=== PATIENT | female | born 1985 | race Caucasian/White ===

== ENCOUNTER 2022-10-31 00:38 | Emergency (ER) | payer OTHER, SELFPAY ==
[2022-10-31 00:46] VITALS: BP 138/85; PULSE 101; RESP 18; TEMP 36.4; O2SAT 100; BMI 30.2
--- NOTE | 2022-10-31 01:00 | ED_ITS ---
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 states her Baclofen is not working tonight with this flare up. No new injury. no radicular symptoms MD complaint: Reports neck pain Related Data Allergies Allergy/AdvReac Type Severity Reaction Status Date / Time calcium [From DHEA] Allergy Severe Difficulty Verified 10/31/22 00:52 Breathing calcium carbonate [From DHEA] Allergy Severe Difficulty Verified 10/31/22 00:52 Breathing prasterone (DHEA) [From DHEA] Allergy Severe Difficulty Verified 10/31/22 00:52 Breathing caffeine Allergy Mild Vomiting Verified 10/31/22 00:52 Review of Systems ROS Status of ROS 10 or more systems reviewed and unremarkable except as noted in history and below PFSH PFSH Social History Smoking status: Never smoker Exam Constitutional Vital Signs - 24 hr 10/31/22 00:46 10/31/22 04:19 Temperature 97.5 F L Pulse Rate 89 Pulse Rate [Monitor] 101 H Respiratory Rate 18 18 Blood Pressure 116/74 Blood Pressure [Right Arm] 138/85 H Pulse Oximetry 100 100 Oxygen Delivery Method Room Air Other: mild distress HENMT Common normals: normocephalic and head/scalp atraumatic Eye Common normals: EOMs intact bilaterally and conjunctivae normal Neck & C-Spine Other: bilat tenderness-mild limited ROM Respiratory Common normals: normal respiratory effort, no retractions, no use of accessory muscles and clear to auscultation bilaterally Cardio Common normals: regular rate, regular rhythm, S1 normal heart sound and S2 normal heart sound Extremity Common normals: normal to inspection, full ROM and normal capillary refill Neuro Common normals: oriented x3, CN's II-XII intact bilaterally, moves all extremities and no focal motor deficits Psych Appearance: grossly normal Course Vital Signs Vital signs: Vital Signs Temperature 97.5 F L 10/31/22 00:46 Pulse Rate 101 H 10/31/22 00:46 Respiratory Rate 18 10/31/22 00:46 Blood Pressure 138/85 H 10/31/22 00:46 Pulse Oximetry 100 10/31/22 00:46 Oxygen Delivery Method Room Air 10/31/22 00:46 Temperature 97.5 F L 10/31/22 00:46 Pulse Rate 89 10/31/22 04:19 Respiratory Rate 18 10/31/22 04:19 Blood Pressure 116/74 10/31/22 04:19 Pulse Oximetry 100 10/31/22 04:19 Oxygen Delivery Method Room Air 10/31/22 00:46 MDM - Neck Pain/Injury MDM Narrative Medical decision making narrative: patient has 20 year history of dystonia. Presents with flare up not responding to home medications. CBC and BMP WNL. patient medicated and observed in the department for several hours with improvement in her discomfort. Discharged home and advised to continue her home medications and to follow up with her doctor for a recheck Lab Data Labs: Lab Results 10/31/22 Range/Units 01:13 WBC 7.0 (4.0-11.0) 10^3/uL RBC 4.98 (4.20-5.40) 10^6/uL Hgb 14.5 (12.0-16.0) g/dL Hct 43.4 (36.0-48.0) % MCV 87.1 (81.0-99.0) fL MCH 29.1 (26.7-34.0) pg MCHC 33.4 (29.9-35.2) g/dL RDW 13.4 (11.0-15.0) % Plt Count 249 (150-450) 10^3/uL MPV 9.3 L (9.5-13.5) fL Neut % (Auto) 53.9 (43.0-75.0) % Lymph % (Auto) 39.6 (20.5-60.0) % [place] % (Auto) 5.0 (1.7-12.0) % Eos % (Auto) 1.1 (0.9-7.0) % Baso % (Auto) 0.3 (0.2-2.0) % Neut # (Auto) 3.8 (1.4-6.5) 10^3/uL Lymph # (Auto) 2.8 (1.2-3.8) 10^3/uL [place] # (Auto) 0.4 (0.3-0.8) 10^3/uL Eos # (Auto) 0.1 (0.0-0.7) 10^3/uL Baso # (Auto) 0.0 (0.0-0.1) 10^3/uL Abs Immat Gran (auto) 0.01 (0.00-0.03) 10^3/uL Imm/Tot Granulo (auto) 0.1 (0.0-0.5) % Sodium 141 (136-145) mmol/L Potassium 3.6 (3.5-5.1) mmol/L Chloride 104 (98-107) mmol/L Carbon Dioxide 29.7 (21.0-32.0) mmol/L Anion Gap 10.9 BUN 10.0 (7.0-18.0) mg/dL Creatinine 0.78 (0.55-1.02) mg/dL Est GFR ( Amer) >60 (>=60) Est GFR (Non-Af Amer) >60 (>=60) BUN/Creatinine Ratio 12.8 Glucose 100 (74-106) mg/dL Calcium 9.4 (8.5-10.1) mg/dL Magnesium 2.3 (1.8-2.4) mg/dL Discharge Plan Discharge Chief Complaint: Neck Pain/Injury Clinical Impression: Dystonia Instructions: Spasmodic Torticollis (ED) Additional Instructions: continue home medications and follow up with your doctor Stand Alone Forms: Portal Instructions Referrals: Danny Obrien MD [Primary Care Provider] - 1 week
[2022-10-31 01:22] LABS: Basophils Percent Auto 0.3 % (0.2-2.0); Eosinophils Absolute Auto 0.1 10^3/uL (0.0-0.7); Eosinophils Percent Auto 1.1 % (0.9-7.0); Hematocrit 43.4 % (36.0-48.0); Hemoglobin 14.5 g/dL (12.0-16.0); Immature Granulocytes Abs Auto 0.01 10^3/uL (0.00-0.03); Immature Granulocytes Pct Auto 0.1 % (0.0-0.5); Lymphocytes Absolute Auto 2.8 10^3/uL (1.2-3.8); Lymphocytes Percent Auto 39.6 % (20.5-60.0); Mean Corpuscular HGB Conc 33.4 g/dL (29.9-35.2); Mean Corpuscular Hemoglobin 29.1 pg (26.7-34.0); Mean Corpuscular Volume 87.1 fL (81.0-99.0); Mean Platelet Volume 9.3 fL (9.5-13.5); Monocytes Absolute Auto 0.4 10^3/uL (0.3-0.8); Neutrophils Absolute Auto 3.8 10^3/uL (1.4-6.5); Neutrophils Percent Auto 53.9 % (43.0-75.0); Platelet Count 249 10^3/uL (150-450); Red Blood Count 4.98 10^6/uL (4.20-5.40); Red Cell Distribution Width 13.4 % (11.0-15.0)
[2022-10-31] MEDS: ONDANSETRON PF 4 MG/2 ML VIAL IV (01:28)
[2022-10-31] MEDS: LORAZEPAM 2 MG/ML 1 ML VIAL 1 MG IV (01:28)
[2022-10-31] MEDS: ORPHENADRINE 60 MG/ 2 ML VIAL IV (01:28)
[2022-10-31 01:39] LABS: Anion Gap 10.9; BUN Creatinine Ratio 12.8; Calcium 9.4 mg/dL (8.5-10.1); Carbon Dioxide 29.7 mmol/L (21.0-32.0); Chloride 104 mmol/L (98-107); Estimated GFR (African America >60 (>=60); Estimated GFR (Non-African Ame >60 (>=60); Glucose 100 mg/dL (74-106); Magnesium 2.3 mg/dL (1.8-2.4); Potassium 3.6 mmol/L (3.5-5.1); Sodium 141 mmol/L (136-145)
[2022-10-31 04:19] VITALS: BP 116/74; PULSE 89; RESP 18; O2SAT 100
--- NOTE | 2022-10-31 04:24 | PC.NURSE ---
After numerous phone calls with telepharmacy we were unable to get the order clarified.. Pt recieved 2g of Mag in a 50ml bag when initial order was placed
[2022-10-31] MEDS: MORPHINE SULFATE 4 MG/ML VIAL IV (06:17)
== END 2022-10-31 06:20 | disposition home or self-care (01) ==
PROVIDERS: Emergency Provider Internal Medicine; PCP Family Medicine
DX: G24.9 Dystonia, unspecified (principal)
CPT/HCPCS: 36415; 80048; 83735; 85025; 96374; 96375; 99284

== ENCOUNTER 2023-01-15 20:00 | Outpatient (REF) | payer OTHER, SELFPAY ==
[2023-01-19 14:09] LABS: Age Gdln ACOG Testing Note (.); HPV Aptima Negative (Negative); IGP, Aptima HPV, rfx 16/18,45 Note (.)
== END 2023-01-15 20:01 | disposition home or self-care (01) ==
LOC: LAB 20:00
PROVIDERS: PCP Family Medicine; Visit Provider Obstetrics & Gynecology
DX: Z12.4 Encounter for screening for malignant neoplasm of cervix (principal)
CPT/HCPCS: 87624; G0145

== ENCOUNTER 2023-03-21 08:00 | Outpatient (OUT) | payer OTHER, SELFPAY ==
--- NOTE | 2023-03-21 08:37 | PM.CN ---
Consult Note: HPI Data of Consult Requesting Physician: Jacqui Anthony NP Primary Care Provider: Danny Obrien MD Consult Narrative Reason for consult: f/u Narrative: Brittanie Bradley a pleasant 38 year old female presents for evaluation and management of chronic neck pain and migraines, today patient rating pain 3/10 throbbing ache in neck. Patient continues to follow up with neurology and movement disorder specialists at [facility] who are administering botox and prescribing a variety of medications for the patient. Patient has benefitted from occasional norco for moderate to severe pain unresponsive to tylenol or ibuprofen. cc:: CC: Jacqui Anthony NP Review of Systems ROS Status of ROS 10 or more systems reviewed and unremarkable except as noted in history and below Musculoskeletal Reports: neck pain PFSH PFSH Social History Smoking status: Never smoker Meds Home Medications and Allergies Allergies Allergy/AdvReac Type Severity Reaction Status Date / Time calcium [From DHEA] Allergy Severe Difficulty Verified 10/31/22 00:52 Breathing calcium carbonate [From DHEA] Allergy Severe Difficulty Verified 10/31/22 00:52 Breathing prasterone (DHEA) [From DHEA] Allergy Severe Difficulty Verified 10/31/22 00:52 Breathing caffeine Allergy Mild Vomiting Verified 10/31/22 00:52 Exam Constitutional Documenting provider has reviewed patient's vital signs: yes Common normals: no apparent distress, oriented x3, healthy appearing, alert and well nourished General appearance: cooperative HENDE Common normals: normocephalic, hearing grossly normal bilaterally and moist oral mucous membranes Head and scalp: normocephalic Eye Common normals: PERRL Pupil: PERRL Neck & C-Spine Common normals: full ROM General: normal visual inspection Cervical spine: pain with cervical ROM and trapezius muscle tenderness Chest Common normals: inspection of chest normal Respiratory Common normals: normal respiratory effort, no retractions and no use of accessory muscles Neuro Common normals: oriented x3, CN's II-XII intact bilaterally, moves all extremities, no focal motor deficits, no sensory deficits noted and deep tendon reflexes 2+ bilaterally Sensorium/orientation: alert Motor exam: strength 5/5 throughout and no movement abnormalities noted Psych Common normals: mental status grossly normal, thought process normal, cooperative, affect normal, speech normal and activity/motor behavior normal Speech: normal speech Thought process: normal thought process Assessment and Plan Assessment and Plan (1) Cervical spondylosis: (2) Migraines: (3) Neck pain: Plan -discussed cervical facet blocks and thermal RFA as a future consideration, xrays consistent with cervical spondylosis (consider bilateral C2-3 3-4) -continue PRN [place] 5-325 1/2 tablet PRN moderate to severe pain, 14 tablets to last 3 months -discussed not to take norco with valium or other benzodiazepines, patient takes very sparingly and does not take together -continue HEP -continue f/u with neurology and movement disorder specialist at [facility] -f/u 3 months for medication management
== END 2023-03-21 08:01 | disposition home or self-care (01) ==
PROVIDERS: PCP Family Medicine; Visit Provider Nurse Practitioner
DX: M47.812 Spondylosis without myelopathy or radiculopathy, cervical region (principal); M54.2 Cervicalgia; G43.909 Migraine, unspecified, not intractable, without status migrainosus
CPT/HCPCS: G0463

== ENCOUNTER 2023-05-13 05:08 | Emergency (ER) | payer OTHER, SELFPAY ==
[2023-05-13 05:11] VITALS: BP 134/108; PULSE 115; RESP 20; TEMP 36.9; O2SAT 100; BMI 24.7
--- OUTSIDE RECORDS SUMMARY | 2023-05-13 05:16 | XMS_ITS | CCD ---
Author Name Unknown Address [address] [place] [address] Organization [facility] Care Team Providers Care Belt Repairer Name Role Phone MD Filiberto Ying Primary Care Provider [phone] PURVI Padilla Attending Provider [phone] STEP[address] ., DR DE LOS SANTOS Primary Care Unavailable LAKSHMIPATHY ., NARENDRANATH Admitting Glo vailable LAKSHMIPATHY ., KATHLEEN Attending Glo vailable HOY ., DR DE LOS SANTOS Admitting Unavailable HOY ., DR DE LOS SANTOS Attending Unavailable HOY ., DR DE LOS SANTOS Consulting Unavailable HOY ., DR DE LOS SANTOS Primary Care Unavailable COREEN ., DR HOBBS Admitting Unavailable COREEN ., DR HOBBS Attending Unavailable COREEN ., DR HOBBS Consulting Unavailable HOY ., DR DE LOS SANTOS Primary Care Unavailable ZIEBER, DR NAVNEET Bolden Consulting Unavailable HOY ., DR DE LOS SANTOS Primary Care Unavailable VIDAL ., CASSI Admitting Unavailable VIDAL ., CASSI Attending Unavailable VIDAL ., CASSI Consulting Unavailable VIDAL ., CASSI Consulting Unavailable COLLAZO ., DR CHARISMA Mckoy Attending Unavailable HOY ., DR DE LOS SANTOS Primary Care Unavailable COLLAZO ., DR CHARISMA Mckoy Admitting Unavailable COLLAZO ., DR CHARISMA Mckoy Admitting Unavailable HOY ., DR DE LOS SANTOS Primary Care Unavailable VIDAL ., CASSI Consulting Unavailable COLLAZO ., DR CHARISMA Mckoy Attending Unavailable COLLAZO ., DR CHARISMA Mckoy Admitting Unavailable HOY ., DR DE LOS SANTOS Primary Care Unavailable VIDAL ., CASSI Consulting Unavailable COLLAZO ., DR CHARISMA Mckoy Attending Unavailable COLLAZO ., DR CHARISMA Mckoy Attending Unavailable HOY ., DR DE LOS SANTOS Primary Care Unavailable VIDAL ., CASSI Consulting Unavailable COLLAZO ., DR CHARISMA Mckoy Admitting Unavailable COLLAZO ., DR CHARISMA Mckoy Admitting Unavailable HOY ., DR DE LOS SANTOS Primary Care Unavailable VIDAL ., CASSI Consulting Unavailable ZAY Good, DR CHARISMA Mckoy Attending Unavailable Filiberto Ying Unavailable Unavailable Unavailable MD Filiberto Ying Primary Care Provider [phone] DO Jamin Mcdaniel Attending Provider DO Roseanne Castellanos Attending Provider MD Romero Jones Referring Provider Isrrael, Dr. Soraya Mojica Attending Unavailab le Isrrael, Dr. Soraya Mojica Referring Unavailab le Stepan, Dr. Filiberto Fuller Primary Care Unavail able Unavailable Unavailable Filiberto Ying MD Primary Care Provider [phone] Kenna Padilla PA-C Unavailable Tal DIALLO, Dr. Saeed Jean-Baptiste Attending Unavailable Stepan, Dr. Filiberto Fuller Primary Care Unavail able Emanuel, Dr. Saeed Stahl Referring Unava ilneris Castellanos, Dr. Saeed Stahl Attending Unava ilable Stepan, Dr. Filiberto Fuller Primary Care Unavail able Emanuel, Dr. Saeed Stahl Referring Unava ilneris Castellanos, Dr. Saeed Stahl Referring Unava ilneris Ying, Dr. Filiberto Fuller Primary Care Unavail able Emanuel, Dr. Saeed Stahl Attending Unava ilSoraya Mcnair Attending Unavailable Soraya Cage Referring Unavailable Stepan, Dr. Filiberto Fuller Primary Care Unavail able Romero Jones Attending Unavailable Stepan, Dr. Filiberto Fuller Primary Care Unavail able Emanuel, Dr. Saeed Stahl Referring Unava ilneris Ying, Dr. Filiberto Fuller Primary Care Unavail able Emanuel, Dr. Saeed Stahl Attending Unava ilneris Castellanos, Dr. Saeed Stahl Attending Unava ilneris Ying, Dr. Filiberto Fuller Primary Care Unavail able Emanuel, Dr. Saeed Stahl Referring UnaMD Filiberto Rodriguez Primary Care Provider [phone] LONNY Borges Attending Provider MD Filiberto Ynig Primary Care Provider [phone] LONNY Borges Attending Provider DO Jamin Mcdaniel Attending Provider [phone] KENNA PADILLA Referring Unavailable HOY, FILIBERTO M Primary Care Unavailable BRAXTON, SOMJITA Attending Unavailable JONY, MARIA DEL CARMNE Attending Unavailable HOY, FILIBERTO M Primary Care Unavailable HOY, FILIBERTO M Primary Care Unavailable BRAXTON, SOMJITA Attending Unavailable HOY, FILIBERTO M Primary Care Unavailable BRAXTON, SOMJITA Referring Unavailable BRAXTON, SOMJITA Referring Unavailable HOY, FILIBERTO M Primary Care Unavailable Hoy, Filiberto M Primary Care Unavailable Maria Del Carmen Borges P Admitting Unavailable Maria Del Carmen Borges P Attending Unavailable Itzkojonel, Jamin Attending Unavailable Hoy, Filiberto M Primary Care Unavailable Itzkojonel, Jamin Admitting Unavailable Itzkojonel, Jamin Attending Unavailable Hoy, Filiberto M Primary Care Unavailable Itzkojonel, Jamin Admitting Unavailable Miyazlottie, Jamin Attending Unavailable Hoy, Filiberto M Primary Care Unavailable Itzkojonel, Jamin Admitting Unavailable Hoy, Filiberto M Primary Care Unavailable Romero Jones Referring Unavailable Roseanne Castellanos Admitting Unavailable Roseanne Castellanos Attending Unavailable Allergies Allergy Classification Reported Allergen(s) Allergy Type Date of Onset Reaction(s) Facility (17 sources) Caffeine; Translations: [Caffeine] Drug Allergy 3 Vomiting [facility] (16 sources) DHE; Translations: [Dhe] Allergy to substance 3 Shortness of Breath [facility] (9 sources) Adhesive agent; Translations: [ADHESIVE] Propensity to adverse reactions to drug 3 Other: See Asa, Yamilet [facility] (13 sources) Adhesive Tape Allergy to substance (finding) 3 Rash [facility] (9 sources) prasterone; Translations: [DHEA CAPS] Drug Allergy -[facility] y [facility] DO Work Phone: (1 source) Metoprolol Drug Allergy 3 Swelling of Lip/Tongue/Thro at [facility] Medications Current Medications Medication Drug Class(es) Dates Sig (Normalized) Sig (Original) acetaminophen 325 mg / HYDROcodone bitartrate 5 mg oral tablet (20 sources) Opioid Agonist Start: 05-01-2023 take 1 tablet by mouth once daily Hydrocodone-Aceta minophen Active 1 TAB PO Daily May 01, 2023 12:00am Start: 06-29-2022 HYDROcodone-ac etaminophen (NORCO) 5-325 mg per tablet as needed. 0 06/29/2022 Active Start: 10-22-2019 End: 12-24-2020 take 1 tablet by mouth every six hours Hydrocodone-Acetaminophen Discontinued 1 TAB PO Q6H 10 August 16, 2020 December 24, 2020 11:15am Start: 10-14-2019 End: 12-24-2020 take 1 tablet by mouth every eight hours Hydrocodone-Acetaminophen ([place]) 5-325 mg tablet Discontinued 1 TAB PO Q8H 10 October 14, 2019 December 24, 2020 11:15am Comment on above: as needed. baclofen 10 mg oral tablet (14 sources) gamma-Aminobutyr ic Acid-ergic Agonist Start: 06-28-19 End: 01-20-20 take 1 tablet by mouth every eight hours as needed baclofen (LIORESAL) 10 mg tablet Take 10 mg by mouth every 8 hours as needed. 10 in AM, 20 in PM 0 06/28/2022 01/19/2023 Discontinued Comment on above: Take 10 mg by mouth every 8 hours as needed. 10 in AM, 20 in PM cyclobenzaprine hydrochloride 5 mg oral tablet (14 sources) Muscle Relaxant Start: 05-01-20 take 5 mg by mouth once daily at bedtime Cyclobenzaprine Active 5 MG PO Daily at bedtime May 01, 2023 12:00am Start: 01-19-2023 take 1 tablet by klever th every twenty-four hours as needed cyclobenzaprine (FLEXERIL) 5 mg tablet Take 1 tablet by mouth at bedtime as needed. 30 tablet 1 01/19/2023 Active Start: 10-14-2019 End: 05-01-2023 take 10 mg by mouth once daily Cyclobenzaprine Discont inued 10 MG PO Daily October 13, 2019 11:00pm May 01, 2023 11:55am Start: 10-14-2019 End: 05-01-2023 take 20 mg by mouth once daily at bedtime Cyclobenzaprine Discontinued 20 MG PO Daily at bedtime October 13, 2019 11:00pm May 01, 2023 11:55am Comment on above: Take 1 tablet by klever th at bedtime as needed. diazePAM 10 mg oral tablet (9 sources) Benzodiazepine Start: 05-01-2023 take 10 mg by mouth twice daily Diazepam Active 10 MG PO Twice daily May 01, 2023 12:00am Start: 06-13-2022 take 1 tablet by klever th every twelve hours as needed diazePAM (VALIUM) 10 mg tablet Take 10 mg by mouth twice daily as needed. 0 06/13/2022 Active Comment on above: Take 10 mg by mouth twice daily as needed. ondansetron 4 mg oral tablet (11 sources) Serotonin-3 Receptor Antagonist Start: take 1 tablet by mouth every six hours Ondansetron Hcl (Zofran) 4 mg tablet Active 4 MG PO Q6H 60 December 23, 2020 11:00pm Start: 10-14-2019 End: 05-01-2023 take 4 mg by mouth three times daily Ondansetron Discontinued 4 MG PO Three times daily 7 2 October 13, 2019 11:00pm May 01, 2023 11:55am Start: 06-13-2012 End: 07-28-2022 ondansetron, PF, 4 mg/2 mL S oln Indications: Headache(784.0) , Chronic migraine without aura, with intractable migraine, so stated, with status migrainosus Inject 8 mg intravenously as directed. INFUSE 8 mg in NS 50 ML IV OVER 30 MIN. May repeat x1 4 mL 0 06/13/2012 07/28/2022 Discontinued (Course of therapy completed) Comment on above: Inject 8 mg intraven ously as directed. INFUSE 8 mg in NS 50 ML IV OVER 30 MIN. May repeat x1 pramipexole dihydrochloride 1 mg oral tablet (20 sources) Nonergot Dopamine Agonist Start: 05-01-20 take 1 mg by mouth once daily at bedtime Pramipexole Active 1 MG PO Daily at bedtime May 01, 2023 12:00am Start: 06-28-2022 take 1 tablet by klever th once daily pramipexole (MIRAPEX) 1 mg tablet Take 1 mg by mouth once daily. 0 06/28/2022 Active Start: 10-14-2019 End: 05-01-2023 take 1 tablet by mouth once daily at bedtime Pramipexole (Mirapex) 0.5 mg tablet Discontinued 0.5 MG PO Daily at bedtime October 13, 2019 11:00pm May 01, 2023 11:53am Comment on above: Take 1 mg by mouth o nce daily. 24 hr topiramate 100 mg extended release oral capsule (5 sources) Start: 10-14-2019 take 300 mg by mouth once daily Topiramate Active 300 MG PO Daily October 13, 2019 11:00pm Start: 10-14-2019 End: 05-01-2023 take 300 mg by mouth once daily Topiramate Discontinued 300 MG PO Daily October 13, 2019 11:00pm May 01, 2023 11:56am Completed/Discontinued Medications Medication Drug Class(es) Dates Sig (Normalized) Sig (Original) cetirizine hydrochloride 10 mg oral tablet (20 sources) Histamine-1 Receptor Antagonist Start: 10-14-2019 End: 05-01-2023 take 10 mg by mouth once daily Cetirizine Discontinued 10 MG PO Daily October 13, 2019 11:00pm May 01, 2023 11:54am Comment on above: 10 mg once daily. sugar-free cholestyramine resin 4000 mg powder for oral suspension (5 sources) Bile Acid Sequestrant Start: 12-24-2020 End: 05-01-2023 take 1 dose by mouth once Cholestyramine-Aspa rtame (Questran Light) 4 gram powder Discontinued 4 GM PO before meals and at bedtime December 23, 2020 11:00pm May 01, 2023 11:55am no meds 1 hr before/4-6 hr after dose cyproheptadine hydrochloride 4 mg oral tablet (1 source) Start: 06-13-2012 End: 07-28-2022 take 1 tablet by mouth three times daily cyproheptadine 4 mg tablet Take 1 tablet by mouth three times daily. 30 tablet 06/13/2012 07/28/2022 Discontinued (Course of therapy completed) Comment on above: Take 1 tablet by klever th three times daily. diclofenac sodium 0.01 mg/mg topical gel (8 sources) Nonsteroidal Anti-inflammatory Drug Start: 06-29-2022 diclofenac (VOLTAREN) 1 % topical gel as needed. 0 06/29/2022 Active Comment on above: as needed. doxepin hydrochloride 10 mg oral capsule (5 sources) Tricyclic Antidepressant Start: 10-14-2019 End: 12-24-2020 take 20 mg by mouth once daily at bedtime Doxepin Discontinued 20 MG PO Daily at bedtime October 13, 2019 11:00pm December 24, 2020 11:23am L Norgest/E.Estradiol- E.Estrad (5 sources) Progestin, Estrogen, Progestin-containin g Intrauterine Device Start: 10-14-2019 End: 05-01-2023 take 1 tablet by mouth once daily L Norgest/E.Estradiol -E.Estrad Discontinued 1 TAB PO Daily October 13, 2019 11:00pm May 01, 2023 11:55am Start: 10-14-2019 take 1 tablet by klever th once daily L Norgest/E.Estradiol-E.Estrad Active 1 TAB PO Daily October 13, 2019 11:00pm Start: 10-14-2019 take 1 tablet by klever th once daily L Norgest/E.Estradiol-E.Estrad Active 1 TAB PO Daily October 14, 2019 12:00am ezetimibe 10 mg oral tablet (17 sources) Dietary Cholesterol Absorption Inhibitor Start: 07-27-2022 ezetimibe (ZETIA) 10 mg tablet 10 mg once daily. 0 07/27/2022 Active Comment on above: 10 mg once daily. ferrous sulfate 325 mg oral tablet (17 sources) Start: 07-13-2022 ferrous sulfate 325 mg (65 mg iron) tablet once daily. 0 07/13/2022 Active Comment on above: once daily. fludrocortisone acetate 0.1 mg oral tablet (1 source) Start: 11-14-2022 take 1 tablet by mouth once daily Fludrocortisone Acetate 0.1 MG Oral Tablet Take 1 tablet daily Quantity: 90 Refills: 3 Ordered: 14-Nov-2022 Soraya Cage MD Start : 14-Nov-2022 Active 1.5 ml fremanezumab-vfrm 150 mg/ml prefilled syringe (5 sources) Start: 10-14-2019 End: 05-01-2023 inject 1 mL by subcutaneous injection every month Fremanezumab-Vfrm Discontinued 1.5 ML SUBCUT every month October 13, 2019 11:00pm May 01, 2023 11:54am hyoscyamine sulfate 0.125 mg sublingual tablet (5 sources) Start: 10-14-2019 End: 12-24-2020 take 1 tablet by mouth four times daily Hyoscyamine Sulfate Discontinued 1 - 2 TAB PO Four times daily October 13, 2019 11:00pm December 24, 2020 11:24am Magnesium (4 sources) End: 01-12-2023 Magnesium 250 mg tab 250 mg once daily. 0 01/12/2023 Discontinued Magnesium 250 mg tab 250 mg once daily. 0 Active Comment on above: 250 mg once daily. magnesium oxide 400 mg oral tablet (1 source) End: take 1 tablet by mouth once daily magnesium oxide (MAG-OXIDE) 400 mg tablet Take 400 mg by mouth once daily. 0 07/28/2022 Discontinued (Course of therapy completed) Comment on above: Take 400 mg by mouth once daily. Magnesium Sulfate (1 source) Start: 013 End: inject 2 g intravenously every hour MAGNESIUM SULFATE IN 0.9% NACL (MAGNESIUM SULFATE IN NS) 2 gram/100 mL PgBk Indications: Headache(784.0) Inject 2 g intravenously as directed. INFUSE 2000 mg in NS 250 ML IV OVER 1 HOUR 100 mL 0 06/13/2012 07/28/2022 Discontinued (Course of therapy completed) Comment on above: Inject 2 g intraveno usly as directed. INFUSE 2000 mg in NS 250 ML IV OVER 1 HOUR metFORMIN hydrochloride 500 mg oral tablet (4 sources) Biguanide End: metFORMIN (GLUCOPHAGE) 500 mg tablet 500 mg once daily. 0 01/12/2023 Discontinued Comment on above: 500 mg once daily. 24 hr metoprolol succinate 25 mg extended release oral tablet (6 sources) beta-Adrenergic Jessie Start: 023 take 1 tablet by mouth every hour metoprolol succinate ER (TOPROL XL) 25 mg 24 hr tablet Take 1 tablet by mouth every afternoon. 0 12/03/2022 Active Start: 11-14-2022 take 1 tablet by klever th once daily Metoprolol Succinate ER 25 MG Oral Tablet Extended Release 24 Hour TAKE 1 TABLET DAILY. Quantity: 90 Refills: 3 Ordered: 14-Nov-2022 Soraya Cage MD Start : 14-Nov-2022 Active Comment on above: Take 1 tablet by klever th every afternoon. minocycline 50 mg oral capsule (19 sources) Tetracycline-class Drug Start: 0 End: 3 take 50 mg by mouth once daily Minocycline Discontinued 50 MG PO Daily October 13, 2019 11:00pm May 01, 2023 11:55am take 1 tablet by mouth once ute y Minocycline HCl 100 mg tablet Take 100 mg by mouth once daily. 0 Active Comment on above: Take 100 mg by mouth once daily. pantoprazole 40 mg delayed release oral tablet (5 sources) Proton Pump Inhibitor Start: 10-14-19 End: 05-01-20 23 take 40 mg by mouth once daily Pantoprazole Discontinued 40 MG PO Daily October 13, 2019 11:00pm May 01, 2023 11:55am phentermine hydrochloride 37.5 mg oral tablet (5 sources) Sympathomimetic Amine Anorectic Start: 01-06-20 23 take 1 tablet by mouth once daily Phentermine HCl 37.5 mg tablet Take 37.5 mg by mouth once daily. 0 01/05/2023 Active Comment on above: Take 37.5 mg by mout h once daily. Nxklysjw-Oh-Ebo-Fe-FA (P-D CARTER PLUS) Tab (2 sources) End: 08-02-19 take 1 tablet by mouth once daily Gjlpgmvk-Uf-Rir-Fe- FA (P-D PLUS) Tab Take 1 tablet by mouth once daily. 0 08/01/2022 Discontinued (Course of therapy completed) take 1 tablet by mouth once ute y Fppgzirm-No-Qsn-Fe-FA (P-D PLUS) Tab Take 1 tablet by mouth once daily. 0 Active Comment on above: Take 1 tablet by klever once daily. promethazine hydrochloride 25 mg oral tablet (10 sources) Phenothiazine Start: 09-28-19 End: 12-25-19 21 take 25 mg by mouth every six hours Promethazine Discontinued 25 MG PO Q6H September 26, 2020 11:00pm December 24, 2020 11:24am Start: 09-27-2020 End: 12-24-2020 take 25 mg by mouth four times daily Promethazine Discontinued 25 MG PO Four times daily September 26, 2020 11:00pm December 24, 2020 11:15am propranolol hydrochloride 10 mg oral tablet (6 sources) beta-Adrenergic Jessie Start: 10-14-2019 End: 05-01-2023 take 20 mg by mouth twice daily Propranolol Discontinued 20 MG PO Twice daily October 13, 2019 11:00pm May 01, 2023 11:55am Start: 06-25-2012 End: 07-28-2022 take 1 tablet by mouth three times daily propranolol 10 mg tablet Take 1 tablet by mouth three times daily. 90 tablet 11 06/25/2012 07/28/2022 Discontinued (Course of therapy completed) Comment on above: Take 1 tablet by klever th three times daily. simvastatin 40 mg oral tablet (17 sources) HMG-CoA Reductase Inhibitor simvastatin (ZOCOR) 40 mg tablet 40 mg once daily. 0 Active Comment on above: 40 mg once daily. 1000 ml sodium chloride 9 mg/ml injection (1 source) Start: 06-13-2012 End: 07-28-2022 0.9 % SODIUM CHLORIDE (NACL) 0.9% solution Indications: Headache(784.0) Inject 500 mL intravenously as directed. INFUSE 500 CC IV NS IV OVER 30 MIN 500 mL 0 06/13/2012 07/28/2022 Discontinued (Course of therapy completed) Comment on above: Inject 500 mL intrav enously as directed. INFUSE 500 CC IV NS IV OVER 30 MIN Problems Active Problems Problem Classification Problem Date Documented Date Episodic/Chronic Abdominal pain (5 sources) Abdominal pain; Translations: [Unspecified abdominal pain] 09-27-2020 Episodic Administrative/social admission (4 sources) Patient encounter status; Translations: [Other reasons for seeking consultation] Episodic Biliary tract disease (5 sources) Biliary calculus; Translations: [Calculus of gallbladder without cholecystitis without obstruction] 10-14-2019 Episodic Cardiac dysrhythmias (2 sources) Tachycardia, unspecified; Translations: [Sinus tachycardia] Onset: 12-28-2022 Episodic Disorders of lipid metabolism (9 sources) Hyperlipidemia; Translations: [Other and unspecified hyperlipidemia] Chronic Headache; including migraine (1 source) Migraine, unspecified, not intractable, without status migrainosus; Translations: [MIGRAINE UNS NOT INTRACT W/O SM] Onset: 04-10-2022 Chronic Headache; including migraine (9 sources) Headache; Translations: [Headache] Onset: 04-06-2022 09-27-2020 Episodic Headache; including migraine (1 source) Headache; including migraine; Translations: [HEADACHE UNSPECIFIED] Onset: 07-10-2022 Other circulatory disease (5 sources) Elevated blood-pressure reading without diagnosis of hypertension; Translations: [Elevated blood-pressure reading, without diagnosis of hypertension] 09-27-2020 Episodic Other connective tissue disease (5 sources) Spasm of cervical paraspinous muscle; Translations: [Other muscle spasm] 08-16-2020 Episodic Other connective tissue disease (1 source) Fibromyalgia; Translations: [Fibromyalgia] Episodic Other connective tissue disease (1 source) Problem of neck; Translations: [Other symptoms and signs involving the musculoskeletal system] 01-12-2023 Episodic Other hereditary and degenerative nervous system conditions (1 source) Spasmodic torticollis; 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 TORTICOLLIS] Onset: 04-10-2022 Chronic Other hereditary and degenerative nervous system conditions (2 sources) Isolated cervical dystonia; Translations: [Spasmodic torticollis] 01-12-2023 Chronic Other hereditary and degenerative nervous system conditions (1 source) Restless legs; Translations: [Restless legs syndrome] 01-12-2023 Chronic Other lower respiratory disease (9 sources) Difficulty breathing; Translations: [Other respiratory abnormalities] Episodic Other nervous system disorders (5 sources) Other specified mononeuropathies; Translations: [OTHER SPECIFIED MONONEUROPATHIES] Onset: 02-16-2022 Chronic Other nervous system disorders (1 source) Other chronic pain; Translations: [Neck pain, chronic] Onset: 08-11-2022 Chronic Other nutritional; endocrine; and metabolic disorders (8 sources) Obesity; Translations: [Obesity, unspecified] Chronic Other nutritional; endocrine; and metabolic disorders (1 source) Overweight in adulthood with body mass index of 25 or more but less than 30; Translations: [Overweight] Episodic Syncope (19 sources) Syncope; Translations: [Syncope and collapse] Onset: 12-28-2022 Episodic Unclassified (1 source) Unspecified lump in the left breast, unspecified quadrant; Translations: [Unspecified lump in the left breast, unspecified quadrant] Onset: 04-05-2023 Unclassified (1 source) Unspecified lump in the right breast, lower outer quadrant; Translations: [Unspecified lump in the right breast, lower outer quadrant] Onset: 10-12-2022 Past or Other Problems Problem Classification Problem Date Documented Date Episodic/Chronic Immunizations and screening for infectious disease (1 source) Encounter for screening for human papillomavirus (HPV); Translations: [ENC SCREENING HUMAN PAPILLOMAVIRUS] Onset: 01-10-2022 Episodic Nonmalignant breast conditions (5 sources) Breast lump; Translations: [Unspecified lump in the left breast, unspecified quadrant] Onset: 10-12-2022 04-05-2023 Episodic Other connective tissue disease (1 source) Other muscle spasm; Translations: [OTHER MUSCLE SPASM] Onset: 04-10-2022 Episodic Other screening for suspected conditions (not mental disorders or infectious disease) (4 sources) Encounter for screening for malignant neoplasm of cervix; Translations: [ENC SCREENING MALIG NEOPLASM CERV] Onset: 01-09-2022 Episodic Spondylosis; intervertebral disc disorders; other back problems (10 sources) Chronic neck pain; Translations: [Cervicalgia] Onset: 02-20-2022 Episodic Unclassified (9 sources) Never smoked tobacco; Translations: [Never a smoker] Results Test Name Value Interpretation Reference Range Facility Basic Metabolic Panelon 04-20 Anion gap [Moles/Vol] 9.4 mmol/L Normal 6.0-15.0 [facility] Comment on above: Performed By: #### B MP #### [facility] [address] Calcium [Mass/Vol] 9.7 mg/dL Normal 8.6-10.3 [facility] Comment on above: Result Comment: PERF ORMED BY: [facility] [address] [facility] [address] PATHOLOGIST SUPERVISOR RESIDENTIAL ROSSI POND M.D. Performed By: #### B MP #### [facility] [address] [place] [address] [place] Chloride [Moles/Vol] 105 mmol/L Normal 98-107 [facility] Comment on above: Performed By: #### B MP #### [facility] [address] CO2 [Moles/Vol] 28.9 mmol/L Normal 21.0-31.0 [facility] Comment on above: Performed By: #### B MP #### [facility] [address] Creatinine [Mass/Vol] 0.75 mg/dL Normal 0.60-1.20 [facility] Comment on above: Performed By: #### B MP #### [facility] [address] [place] [address] [place] GFR/1.73 sq M.predicted MDRD (S/P/Bld) [Vol rate/Area] mL/min/{1.73_m2} Normal [facility] Comment on above: Performed By: #### B MP #### [address] Glucose [Mass/Vol] 84 mg/dL Normal 70-100 [facility] Comment on above: Result Comment: [facility] Glucose Reference Range is dependent on time and content of last meal. Glucose of more than 200 mg/dL in a nonstressed, ambulatory subject supports the diagnosis of Diabetes Mellitus. ADA recommended reference range Performed By: #### B MP #### [address] Potassium [Moles/Vol] 4.3 mmol/L Normal 3.5-5.1 [facility] Comment on above: Performed By: #### B MP #### [place] [address] [place] Sodium [Moles/Vol] 139 mmol/L Normal 136-145 [facility] Comment on above: Performed By: #### B MP #### [place] [address] [place] Urea nitrogen [Mass/Vol] 14 mg/dL Normal 7-25 [facility] Comment on above: Performed By: #### B MP #### [place] [address] [place] Calcium [Mass/volume] in Ser um or PlasmaOrdered By: Jamin Mcdaniel on 05-01-2023 Calcium [Mass/Vol] 9.7 mg/dL 8.6-10.3 [facility] Carbon dioxide, total [Moles /volume] in Serum or PlasmaOrdered By: Jamin Mcdaniel on 05-01-2023 CO2 [Moles/Vol] 28.9 mmol/L 21.0-31.0 [facility] Chloride [Moles/volume] in S leticia or PlasmaOrdered By: Jamin Mcdaniel on 05-01-2023 Chloride [Moles/Vol] 105 mmol/L 98-107 [facility] Creatinine [Mass/volume] in Serum or PlasmaOrdered By: Jamin Mcdaniel on 05-01-2023 Creatinine [Mass/Vol] 0.75 mg/dL 0.60-1.20 [facility] Glucose [Mass/volume] in Ser um or PlasmaOrdered By: Jamin Mcdaniel on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 cervical dystonia: Diazepam Only takes it when very severe Baclofen Did not feel it was beneficial Has been on this x2 years Cyclobenzaprine Most beneficial, but still significant neck tightness Tizanidine Methocarbamol Metaxalone Carisoprodol She does have [place] prescribed for the neck pain. She rarely utilizes this. She also reports RLS since being a child. She reports this is worsening over the last few years. She had a sleep study that was indicative of ADNIELLE. Not utilizing a machine presently, but is getting a new machine. She did see a sleep clinic locally. 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 Medications Reviewed metoprolol succinate ER (TOPROL XL) 25 mg 24 hr tablet Take 1 tablet by mouth every afternoon. Minocycline HCl 100 mg tablet Take 100 mg by mouth once daily. Phentermine HCl 37.5 mg tablet Take 37.5 mg by mouth once daily. baclofen (LIORESAL) 10 mg tablet Take 10 mg by mouth every 8 hours as needed. 10 in AM, 20 in PM cetirizine (ZYRTEC) 10 mg tablet 10 mg once daily. diazePAM (VALIUM) 10 mg tablet Take 10 mg by mouth twice daily as needed. diclofenac (VOLTAREN) 1 % topical gel as needed. ezetimibe (ZETIA) 10 mg tablet 10 mg once daily. ferrous sulfate 325 mg (65 mg iron) tablet once daily. HYDROcodone-acetaminophen (NORCO) 5-325 mg per tablet as needed. simvastatin (ZOCOR) 40 mg tablet 40 mg once daily. pramipexole (MIRAPEX) 1 mg tablet Take 1 mg by mouth once daily. Allergies Reviewed PAST MEDICAL HISTORY: There is no problem list on file for this patient. PAST SURGICAL HISTORY Procedure Laterality Date ADENOIDECTOMY HX LAPAROSCOPIC PELVIC EXENTERATION TONSILLECTOMY HX Social History Tobacco Use Smoking status: Never Smokeless tobacco: Never Substance Use Topics Alcohol use: No Drug use: No family history includes Cancer in her maternal grandmother and paternal grandfather; Diabetes in her maternal grandmother; Headache in her mother; Psychiatry in her maternal grandfather and mother. 01/12/23 0935 BP: 110/69 Pulse: 110 SpO2: 93% Weight: 70.3 kg (155 lb) Height: 157.5 cm (5' 2 ) General Appearance Patient appears well at the time of this appointment. Neurological Examination: Cognition: The patient is alert and oriented times three Lucid and organized in conversation Able to tell detailed medical hx Speech is Normal in fluency volume and clarity Content and Syntax: Normal Comprehension: Normal, able to follow several step commands Cranial Nerves: Pupils are equal and reactive to light. Pupils normal in size Extraocular movements are grossly intact Good saccades and pursuits No nystagmus Hearing intact Good upgaze Visual rich are full to confrontation. Facial, motor and sensory exam is symmetric Equal v1,V2, V3 Tongue is in midline. No tongue fasciculation. Palate is upgoing bilaterally SCM and trapezius are full. (more content not included)... 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 PHYSICIAN INTERPRETATION: Left Ventricle: Left ventricular systolic function is normal, with an estimated ejection fraction of 65-70%. There are no regional wall motion abnormalities. The left ventricular cavity size is normal. Spectral Doppler shows a normal pattern of left ventricular diastolic filling. Left Atrium: The left atrium is normal in size. Right Ventricle: The right ventricle is slightly enlarged. There is normal right ventricular global systolic function. Right Atrium: The right atrium is upper limits of normal in size. Aortic Valve: The aortic valve is trileaflet. There is no evidence of aortic valve regurgitation. The peak instantaneous gradient of the aortic valve is 6.0 mmHg. The mean gradient of the aortic valve is 2.0 mmHg. Mitral Valve: The mitral valve is normal in structure. There is no evidence of mitral valve regurgitation. Tricuspid Valve: The tricuspid valve is structurally normal. There is trace tricuspid regurgitation. Pulmonic Valve: The pulmonic valve is not well visualized. There is trace pulmonic valve regurgitation. Pericardium: There is no pericardial effusion noted. Aorta: The aortic root is normal. CONCLUSIONS: 1. Left ventricular systolic function is normal with a 65-70% estimated ejection fraction. QUANTITATIVE DATA SUMMARY: 2D MEASUREMENTS: Normal Ranges: Ao Root d: 2.80 cm (2.0-3.7cm) LAs: 2.70 cm (2.7-4.0cm) RVIDd: 3.10 cm (0.9-3.6cm) IVSd: 0.90 cm (0.6-1.1cm) LVPWd: 0.80 cm (0.6-1.1cm) LVIDd: 3.80 cm (3.9-5.9cm) LVIDs: 2.40 cm LV Mass Index: 53.0 g/m2 LV % FS 36.8 % LV SYSTOLIC FUNCTION BY 2D PLANIMETRY (MOD): Normal Ranges: EF-A4C View: 69.3 % (>=55%) LV DIASTOLIC FUNCTION: Normal Ranges: MV Peak E: 0.72 m/s (0.7-1.2 m/s) MV Peak A: 0.85 m/s (0.42-0.7 m/s) E/A Ratio: 0.84 (1.0-2.2) MV lateral e' 0.11 m/s MV medial e' 0.07 m/s E/e' Ratio: 6.30 (<8.0) MITRAL VALVE: Normal Ranges: MV Vmax: 0.90 m/s (<=1.3m/s) MV peak P.2 mmHg (<5mmHg) MV mean P.0 mmHg (<48mmHg) AORTIC VALVE: Normal Ranges: AoV Vmax: 1.22 m/s (<=1.7m/s) AoV Peak P.0 mmHg (<20mmHg) AoV Mean P.0 mmHg (1.7-11.5mmHg) LVOT Max [place]: 1.05 m/s (<=1.1m/s) AoV VTI: 19.30 cm (18-25cm) LVOT VTI: 20.80 cm LVOT Diameter: 2.10 cm (1.8-2.4cm) AoV Area, VTI: 3.73 cm2 (2.5-5.5cm2) AoV Area,Vmax: 2.98 cm2 (2.5-4.5cm2) AoV Dimensionless Index: 1.08 TRICUSPID VALVE/RVSP: Normal Ranges: Peak TR Velocity: 2.20 m/s RV Syst Pressure: 22.4 mmHg (< 30mmHg) PULMONIC VALVE: Normal Ranges: PV Max [place]: 0.8 m/s (0.6-0.9m/s) PV Max P.4 mmHg [id number] Saeed Parada MD Electronically signed on 01/01/2023 at 2:35:16 PM Final Normal [facility] Office Visit (Cardiology)on 11-14-2022 Follow-up visit Diagnoses/Problems Assessed Sinus tachycardia (427.89) (R00.0) Vasovagal near syncope (780.2) (R55) Hyperlipidemia (272.4) (E78.5) Overweight with body mass index (BMI) of 29 to 29.9 in adult (278.02,V85.25) (E66.3,Z68.29) Never a smoker Encounter to establish care with new doctor (V65.8) (Z76.89) Encounter to discuss test results (V65.49) (Z71.2) Encounter to discuss treatment options (V65.49) (Z71.89) Medication care plan discussed with patient (V65.49) (Z71.89) Orders Overweight with body mass index (BMI) of 29 to 29.9 in adult Losing just 5 to 10 pounds may lower your risk of health problems.; Status:Complete - Retrospective Authorization; Done: 14Nov2022 Weight Loss Do's and Don'ts; Status:Complete - Retrospective Authorization; Done: 14Nov2022 Sinus tachycardia IO EKG Electrocardiogram- 12 Lead; Status:Active - Perform Order,Retrospective Authorization; Requested for:14Nov2022; Sinus tachycardia, Vasovagal near syncope Start: Metoprolol Succinate ER 25 MG Oral Tablet Extended Release 24 Hour; TAKE 1 TABLET DAILY Compression stockings 20-30 mmHg; Status:Complete - Retrospective By Protocol Authorization; Done: 14Nov2022 Echocardiogram; Status:Hold For - Scheduling,Retrospective Authorization; Requested for:14Nov2022; SocHx: Never a smoker Tobacco Use Screening; Status:Complete; Done: 14Nov2022 Vasovagal near syncope Start: Fludrocortisone Acetate 0.1 MG Oral Tablet; Take 1 tablet daily Avoid alcoholic beverages.; Status:Complete - Retrospective Authorization; Done: 14Nov2022 Drink at least 6 glasses of water or juice a day.; Status:Complete - Retrospective Authorization; Done: 14Nov2022 Patient Instructions Avoid dehydration. Drink 5-6 bottles of water per day 1 cup or less caffeine. Salt intake up to 2 gram per day Start Metoprolol succinate 25 mg one daily in am. Florinef 0.1 mg once a day Compression stockings on in am off in pm Encourage walking 10-20 minutes a day Follow up in the [facility] Continue same medications/treatment. Patient educated on proper medication use. Patient educated on risk factor modification. Please bring any lab results from other providers/physicians to your next appointment. Please bring all medicines, vitamins, and herbal supplements with you when you come to the office. Prescriptions will not be filled unless you are compliant with your follow up appointments or have a follow up appointment scheduled as per instruction of your physician. Refills should be requested at the time of your visit. I, Corina GIven A[employer]ODU[employer] SALES ENGINEER, am scribing for and in the presence of Dr. Soraya Cage, FACC, FACP, FHRS The provider reviewed the following test(s) and result(s) with the patient: ECG, Holter monitor and Tilt table Chief Complaint Patient presented to [facility]. Adult Risk Screening Initial Fall Risk Screening: BRITTANIE has not fallen in the last 6 months. Tobacco Screening: BRITTANIE does not use tobacco. History of Present Illness She is referred here by Dr. Castellanos for electrophysiology evaluation of syncope The patient is here to discuss spells. She remembers her first episode occurred when she was 14 years old. She was standing in the shower when she passed out.. Thought to be due to her blood pressure. Over the years she has been treated with propranolol and that helped for about 9 years. Over the past year, she has had increasing frequency of spells. They may occur when she is nauseated, feels warm, hot and passes out. She remembers one event when she felt she was going to pass out and she was hovered over the commode. She remembers her helping her up by holding her around her rib cage. Her vision was black, but she was able to hear him. If she regains consciousness, she feels tired. Reports that neurology work-up was negative. Details are not available for review at the time of this consultation. The patient denies any lchest discomfort, dyspnea, [place] with mild exertion, PND, or edema. See ROS, PMH, FMH, and surgical history for details. Minimal information available about patient's family. She will ask her mother about any arrhythmia history. Cervical dystonia. Personal review of ECG and cardiac data reviewed Outside records: Agree with Dr. Castellanos November 10, 2022 Tilt table test October 2022. Negative. Physiological response to tilt and nitroglycerin. No symptoms. 30-day event monitor. October 2022. 12 Ventricular events. Events correlated with sinus rhythm with rates of 73 to 124 bpm rare PAC. On October 22, patient had episode of syncope, which she reports is typical for spells. Rhythm during that event sinus tachycardia 109 bpm. ECG: Reviewed. Normal sinus rhythm. Normal axis. Corrected QT interval 420 ms. TN interval 150 ms See signed ECG and check /Paceart. Imp / Plan Recurrent syncope, consistent with vasovagal etiology. Discussed mechanisms of syncope. Reviewed syncope brochure. Reviewed testing event monitor and tilt table te (more content not included)... Normal [facility] Office Visit (Cardiology)on 11-10-2022 Follow-up visit Diagnoses/Problems Assessed Vasovagal near syncope (780.2) (R55) Hyperlipidemia (272.4) (E78.5) Overweight with body mass index (BMI) of 29 to 29.9 in adult (278.02,V85.25) (E66.3,Z68.29) Never a smoker Cervical dystonia (333.83) (G24.3) Orders Overweight with body mass index (BMI) of 29 to 29.9 in adult Healthy Weight Tips; Status:Complete - Retrospective Authorization; Done: 10Nov2022 Some eating tips that can help you lose weight.; Status:Complete - Retrospective Authorization; Done: 10Nov2022 SocHx: Never a smoker Tobacco Use Screening; Status:Complete; Done: 10Nov2022 Patient Instructions Please bring all medicines, vitamins, and herbal supplements with you when you come to the office. Prescriptions will not be filled unless you are compliant with your follow up appointments or have a follow up appointment scheduled as per instruction of your physician. Refills should be requested at the time of your visit. Follow up as needed only Follow up with Dr Cage as scheduled. Chief Complaint BRITTANIE GARCIA is being seen for FU of Tilt table and HANH. 37-year-old female returns for follow-up following recent tilt table and event monitoring. Tilt table was negative for induction of syncope, event monitoring revealed sinus rhythm and sinus tachycardia episodically with no syncopal events. Patient has underlying recurrent syncope since the age of 14, in addition has cervical dystonia that is treated with baclofen with no worsening of her syncope by report (although baclofen can cause syncope). She also has syncope following emesis interestingly it appears that she has some sort of vagal component where she starts to retch, has emesis and then has a syncopal event as she describes it She is already had neurology evaluation details are unknown. From my standpoint she can follow-up with either syncope clinic or electrophysiology (already has electrophysiology office visit scheduled for November [address] Cage). Otherwise she can follow-up with me as needed I have nothing further to add. Surgical History Problems History of Cholecystectomy Denied: History of Complete colonoscopy History of Esophagogastroduodenoscopy History of Exploratory laparoscopy History of Hysterectomy History of Tonsillectomy with adenoidectomy Current Meds Medication NameInstruction Baclofen 10 MG Oral Tablet1 tabelt in AM 2 in the PM Ferrous Sulfate 325 (65 Fe) MG Oral TabletTAKE 1 TABLET DAILY DIRECTED. Minocycline HCl - 100 MG Oral TabletTAKE 1 TABLET AT BEDTIME. Mirapex 1 MG TABSTake 1 tablet daily Simvastatin 40 MG Oral TabletTAKE 1 TABLET AT BEDTIME. Zetia 10 MG Oral TabletTake 1 tablet daily ZyrTEC Allergy 10 MG Oral TabletTAKE 1 TABLET DAILY DIRECTED. Patient did not bring medication list or bottles. Updated verbally with patient. Allergies Medication DHEA CAPS Recorded By: Celsa Ramesh; 09/20/2022 9:55:36 AM NonMedication Adhesive Tape Recorded By: Celsa Ramesh; 09/20/2022 9:55:36 AM Social History Problems Never a smoker No alcohol use No caffeine use No illicit drug use Review of Systems Constitutional: not feeling tired. Cardiovascular: palpitations, but no intermittent leg claudication and as noted in HPI. Respiratory: no cough and no shortness of breath. Gastrointestinal: no change in bowel habits and no blood in stools. Integumentary: no skin rashes. Neurological: no seizures and no frequent falls. All other systems have been reviewed and are negative for complaint. Vitals Vital Signs Recorded: 10Nov2022 09:01AMRecorded: 10Nov2022 08:58AM Systolic Newmlye99, LUE, Sitting Diastolic Qnbxddu64, LUE, Sitting Systolic Igxwqnbg417, LUE, Standing Diastolic Xrpusapq12, LUE, Standing Heart Rate92, L Radial Lgcaqeji50, LUE, Sitting Vxxvtwxxh88, LUE, Sitting Height5 ft 2 in Ixgrtc484 lb BMI Aaouesyrro10.63 kg/m2 BSA Calculated1.75 Tobacco Useb) No Falls Screening (Age 18+)c) Not medically indicated Physical Exam Constitutional: alert and in no acute distress. Eyes: no erythema, swelling or discharge from the eye . Neck: neck is supple, symmetric, trachea midline, no masses and no thyromegaly . Pulmonary: no increased work of breathing or signs of respiratory distress and lungs clear to auscultation. Cardiovascular: carotid pulses 2+ bilaterally with no bruit , JVP was normal, no thrills , regular rhythm, normal S1 and S2, no murmurs , pedal pulses 2+ bilaterally and no edema . Abdomen: abdomen non-tender, no masses and no hepatomegaly . Skin: skin warm and dry, normal skin turgor . Psychiatric judgment and insight is normal and oriented to person, place and time . Signatures Electronically signed by : Saeed Castellanos DO; Nov 10 2022 11:29AM EST (Author) Normal [employer] [place] tilt table teston 023 [place] tilt table test [place] [address] Cardiology Report Signed Patient: Brittanie Garcia MR#: [id number] : 1985 Acct:[id number] Age/Sex: 37 / F ADM Date: 10/23/22 Loc: Room: Type: [facility] Attending Dr: Roseanne Castellanos DO Copies to: MD Roseanne Jordan DO Ordering Provider: Roseanne Castellanos DO Date of Service: 10/23/22 CA/CA tilt table test: syncope REFERRING PHYSICIAN: Manuel Castellanos DO REASON FOR PROCEDURE: Recurrent syncope. PROCEDURE: The patient underwent a standard head-up tilt table test. She received total of 250 mL of normal saline. The patient was tilted to the upright position. Continuous blood pressure, O2 saturation and heart monitoring was established. During the initial tilt phase, the patient demonstrated appropriate response to tilt maneuver. Nitroglycerin was administered, followed by mild tachycardia and borderline drop in blood pressure, completely asymptomatic. The patient did not develop any symptoms and demonstrated physiologic response to tilt maneuver and nitroglycerin administration. CONCLUSION: 1. Negative tilt table test. 2. Physiologic hemodynamic response to tilt maneuver and nitroglycerin administration. 3. No symptoms were recreated. Transcribed By: STACY 10/23/22 1508 Dictated By: Romero Jones MD 10/23/22 1430 Signed By: 10/23/22 1553 [facility] No Panel Informationon 10-23 -[facility] Heart-Sandu ilan 250 DO Work Phone: US breast BI limitedon 10-12 US breast BI limited [facility] [address] [place] [address] [place] [address] Mammography Report Signed Patient: Brittanie Garcia MR#: [id number] : 1985 Acct:[id number] Age/Sex: 37 / F ADM Date: 10/12/22 Loc: [place] Room: Type: [facility] CLI Attending Dr: Jamin Mcdaniel DO Copies to: MD Jamin Saleh DO Ordering Provider: Jamin Mcdaniel DO Date of Service: 10/12/22 US/US breast BI limited: Breast lumps, change in size;Breast lump on left side at 12 ([id number]) MM/MM diagnostic mammo BI w/CAD: Yrly mamm;Breast lump on left side at 12 o'clock position;Br DIAGNOSTIC BILATERAL BREAST MAMMOGRAM - FULL FIELD DIGITAL WITH TOMOSYNTHESIS CLINICAL DATA: Follow-up palpable lumps Conventional and Tomosynthesis Craniocaudal and mediolateral oblique views of the bilateral breasts were obtained using low-dose digital technique. Comparison is made to prior studies from 02/05/2020 and 08/05/2019. This examination was reviewed with the aid of CAD. There are a few punctate benign-appearing calcifications. There are focal asymmetries bilaterally. The breast parenchyma is heterogeneously dense. There are no dominant masses, typically malignant calcifications or architectural distortion. There has been no significant interval change. Bilateral Limited breast ultrasound: Within the right breast at the 6:00 position 2 to 3 cm from the nipple there is a similar 1.5 x 0.7 x 0.9 cm hypoechoic wider than tall well circumscribed lesion with lobular margins similar to the prior exam. Within the right breast at the 7:00 position 6 cm from nipple there is a 1.9 x 1.0 x 1.8 cm hypoechoic well-circumscribed wider than tall structure with lobulated margins. This is similar to the prior exam. In the region of palpable abnormality in the left breast at 7:00 position 5 cm from the nipple there is a 2.3 x 1.1 x 1.8 cm hypoechoic structure with lobular margins. This is well-circumscribed and wider than tall. The 11:00 position 3 to 4 cm from nipple in the left breast there is a heterogeneous hypoattenuating 1.2 x 0.9 x 1.1 cm structure. There is an adjacent hypoechoic well-circumscribed wider than tall 1.5 x 0.7 x 1.4 cm lesion. There is a third similar-appearing 1.0 x 0.4 x 1.1 cm structure adjacent to this. MM/MM diagnostic mammo BI w/CAD IMPRESSION: BILATERAL FOCAL ASYMMETRIES CORRESPOND TO SONOGRAPHIC LESIONS SUSPICIOUS FOR MULTIPLE FIBROADENOMAS/COMPLEX CYSTS. THESE ARE SIMILAR TO THE PRIOR STUDIES FROM 2020 AND ARE PRESUMED TO BE BENIGN IN NATURE. CLOSE CLINICAL OBSERVATION IS RECOMMENDED WITH REPEAT IMAGING SYMPTOMS WARRANT. RESULT CODE: 2 Benign Findings(s) DENSITY CODE: 3 (approximately 51-75% glandular) FOLLOW UP: 1YR The false-negative rate of mammography is approximately 10-percent. Management of a palpable abnormality must be based on clinical grounds. Impression dictated by: Zbigniew Christensen M.D.10/12/2022 8:26 AM Dictation Location: [facility] Transcribed By: [facility] 10/12/22825 Dictated By: Zbigniew Christensen II, MD 10/12/22814 Signed By: 10/12/22825 [facility] Cardiovasc Arrhythmia Result son 09-29-2022 Cardiovasc Arrhythmia Results Reason For Visit Event Monitor: BRITTANIE is here for the application of a 30 day event monitor in office., Diagnosis: Syncope,Fainting Ordering Physician: Dr. Saeed Castellanos, DO Enrollment sent to: [employer] Monitor number [id number] applied. Holter monitor printed and placed on Dr. Saeed Parada MD desk to dictate. Diagnosis/Problems Assessed Vasovagal near syncope (780.2) (R55) Fainting (780.2) (R55) Patient Discussion/Summary Patient underwent 30-day event monitoring for history of tachycardia. The following observations are made: 1. There were a total of 12 patient triggered events. There were no automatically triggered events. 2. Of the patient triggered events rhythm was noted to be sinus with rates ranging between 73 and 124 bpm. 3. Of the 12 recorded events 1 episode was associated with sinus rhythm and an isolated PAC. No symptoms were reported. 4. On October 22 the patient reported passing out. Rhythm noted during that event was sinus tachycardia rate 109 bpm. Correlation is suggested. Future Appointments Date/TimeProviderSpecialtyS ite 11/10/2022 08:50 Saeed Ahumada DOCardiology[address] 250 DO 11/14/2022 04:20 Soraya Cage MDCardiology[address] 320 DO Signatures Electronically signed by : Saeed Parada MD; Nov 02 2022 9:05AM EST (Author) Normal [facility] Office Visit (Cardiology)on 09-20-2022 Follow-up visit Diagnoses/Problems Assessed Vasovagal near syncope (780.2) (R55) Never a smoker Class 1 obesity with body mass index (BMI) of 30.0 to 30.9 in adult (278.00,V85.30) (E66.9,Z68.30) Hyperlipidemia (272.4) (E78.5) Orders Class 1 obesity with body mass index (BMI) of 30.0 to 30.9 in adult Healthy Weight Tips; Status:Complete - Retrospective Authorization; Done: 20Sep2022 Some eating tips that can help you lose weight.; Status:Complete - Retrospective Authorization; Done: 20Sep2022 Hyperlipidemia Renew: Simvastatin 40 MG Oral Tablet; TAKE 1 TABLET AT BEDTIME SocHx: Never a smoker Tobacco Use Screening; Status:Complete; Done: 20Sep2022 Vasovagal near syncope IO Event Monitor 30 days; Status:Active - Perform Order,Retrospective Authorization; Requested for:20Sep2022; Cardiology - Electrophysiology Referral Evaluation and Treatment Evaluate AND Treat Status: Hold For - Scheduling,Retrospective Authorization Requested for: 20Sep2022 Tilt Table; Status:Hold For - Scheduling,Retrospective Authorization; Requested for:20Sep2022; Patient Instructions Please bring all medicines, vitamins, and herbal supplements with you when you come to the office. Prescriptions will not be filled unless you are compliant with your follow up appointments or have a follow up appointment scheduled as per instruction of your physician. Refills should be requested at the time of your visit. Follow-up after testing completed Chief Complaint BRITTANIE GARCIA is being seen for an initial evaluation of syncope. 37-year-old healthy female seen in cardiology consultation at the request of Dr. Ying for recurrent syncopal episodes. She describes 7 or 8 episodes of syncope with a prodrome of nausea, feeling heated, warm, clammy and occasionally with emesis and then passing out very briefly. Similar to 2014 this sounds like classic vasovagal syncope. She has not seen cardiology since 2013. She has no stressors in her life at this point time, she denies any syncope while driving as she has the clinical prodrome. She has had previous Holter monitoring and echocardiography in the past which have not revealed any arrhythmias or structural heart disease. She denies angina, stroke or thromboembolic disorder, she has no family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 Performed By: #### 2 432-8, , 1987-09 #### [facility] CLIA [id number] [address] [place] [address] [place] Protein [Mass/Vol] 7.7 g/dL Normal 6.3-8.0 [facility] Comment on above: Order Comment: Myriami debbie Type: BLOOD SPECIMEN Ordering Facility: [facility] Address: [address] Performed By: #### 2 432-8, , 1987-09 #### [facility] CLIA [id number] [facility] [place] [address] [place] Sodium [Moles/Vol] 140 mmol/L Normal 136-144 [facility] Comment on above: Order Comment: Speci men Type: BLOOD SPECIMEN Ordering Facility: [facility] Address: [address] [place] [address] Performed By: #### 2 4323-8, , 1987-09 #### [facility] CLIA [id number] [address] [place] [id number] [place] Urea nitrogen [Mass/Vol] 12 mg/dL Normal 7-21 [facility] Comment on above: Order Comment: Speci men Type: BLOOD SPECIMEN Ordering Facility: [facility] Address: [address] [place] [address] Performed By: #### 2 4323-8, 72351-3, 1987-09 #### [facility] CLIA [id number] [address] [place] [address] [place] Cyclic citrullinated peptide IgG Qnon 07-28-2022 CCP ANTIBODY IGG QUALITATIVE Negative Normal Negative [facility] Comment on above: Order Comment: Speci men Type: BLOOD SPECIMEN Ordering Facility: [facility] Address: [address] [place] [address] Performed By: #### 3 3935-8 #### [facility] CLIA [id number] [address] [place] [address] [place] ESR Westergren method (Bld) [Velocity]on 07-28-2022 ESR (Bld) [Velocity] 5 mm/h 0 - 20 mm/hr [facility] ESR (Bld) [Velocity] 5 mm/h Normal 0-20 [facility] Comment on above: Order Comment: Speci men Type: BLOOD SPECIMEN Ordering Facility: [facility] Address: [address] [place] [address] Performed By: #### 2 4323-8, , 1987-09 #### [facility] CLIA [id number] [address] [place] [address] [place] No Panel Informationon 07-28 [facility] RHEUMATOID FACTOR BLon 07-28 Rheumatoid factor Qn <16 IU/mL [facility] Rheumatoid fact SerPl-aCncon 07-28-2022 Rheumatoid factor Qn [IU]/mL Normal <16 [facility] Comment on above: Order Comment: Speci men Type: BLOOD SPECIMEN Ordering Facility: [facility] Address: [address] [place], [place] [address] Performed By: #### 2 4323-8, 68625-9, 1987-09 #### [facility] CLIA [id number] [address] [place] [address] [place] [facility] XR CERVICAL 4V AP/LAT/OBLon 07-28-2022 XR CERVICAL 4V AP/LAT/OBL * * *Final Report* * * DATE OF EXAM: Jul 28 2022 2:39PM AOX 5311 - XR CERVICAL 4V AP/LAT/OBL / PROCEDURE REASON: multiple diagnoses * * * * Physician Interpretation * * * * CERVICAL SPINE X-RAYS HISTORY: Neck pain and tingling sensation in hands and fingers.. Neck pain, chronic Neck pain, chronic TECHNIQUE: 4 views of the cervical spine COMPARISON: None RESULT: Counting reference: Craniocervical junction. Vertebral height and alignment is maintained. No acute fracture or subluxation is identified. The disc spaces are maintained. There is no prevertebral soft tissue swelling. Neural foramina are widely patent bilaterally. IMPRESSION: Normal cervical spine Customer Engineering Specialist: PSCB Transcribe Date/Time: Jul 28 2022 3:05P Dictated by : MARY ANN DIXON MD This examination was interpreted and the report reviewed and electronically signed by: MARY ANN DIXON MD on Jul 28 2022 3:06PM EST [id number] Normal [facility] XR CHEST 2V FRONTAL/LATon XR CHEST 2V FRONTAL/LAT * * *Final Report* * * DATE OF EXAM: Jul 28 2022 2:35PM AOX 5291 - XR CHEST 2V FRONTAL/LAT / PROCEDURE REASON: multiple diagnoses * * * * Physician Interpretation * * * * EXAMINATION: CHEST RADIOGRAPH (2 VIEW FRONTAL and LATERAL) CLINICAL HISTORY: Neck pain, chronic Neck pain, chronic MQ: XC2_6 EXAM DATE/TIME: 07/28/2022 2:35 PM COMPARISON: No prior chest radiograph is available for comparison. RESULT: Lines, tubes, and devices: None. Lungs and pleura: No acute focal lung consolidation is seen. Calcified granulomas are seen in the lungs. No substantial pleural effusion is seen. There is no pneumothorax. Cardiomediastinal silhouette: Normal cardiomediastinal silhouette. Bones and soft tissues: The vertebral bodies are well aligned and the vertebral body heights are maintained. Surgical clips are seen in the right upper abdomen. IMPRESSION: No acute radiographic abnormality. Customer Engineering Specialist: KYLE Transcribe Date/Time: Jul 28 2022 3:21P Dictated by : SKYLER PETERSON MD This examination was interpreted and the report reviewed and electronically signed by: SKYLER PETERSON MD on Jul 28 2022 3:22PM EST [id number] Normal [facility] cCP IgG SerPl-aCncon 023 Cyclic citrullinated peptide IgG Qn <15 Normal <20 [facility] Comment on above: Order Comment: Speci men Type: BLOOD SPECIMEN Ordering Facility: [facility] Address: [address] [place] [address] Performed By: #### 3 3935-8 #### [facility] CLIA [id number] [address] [place] [address] CNPNon 07-19-2022 CNPN Telephone (RHEUMN) BRITTANIE GARCIA ([id number]) 1985 F Date Time Provider Department 07/19/22 MONIQUE LIMON RHEUMN During your visit today, we recorded the following information about you: Marilou Granger 07/19/2022 3:44 PM Signed Received medical documents. Scanned in for review Allergies As of Date: 07/19/2022 Noted Allergy Reaction CAFFEINE 06/13/2012 11 - Vomiting DHE 06/13/2012 12 - Shortness of Breath Date Reviewed: 06/13/2012 Reviewed by: Evonne Penaloza RN - Fully Assessed Reason for Visit: Received Outside Medical Records [[id number]] Prescriptions as of 07/19/2022 - propranolol 10 mg tablet Take 1 tablet by mouth three times daily. - Gsdnbuhi-Sp-Udk-Fe-FA (P-D PLUS) Tab Take 1 tablet by mouth once daily. - magnesium oxide (MAG-OXIDE) 400 mg tablet Take 400 mg by mouth once daily. - cyproheptadine 4 mg tablet Take 1 tablet by mouth three times daily. - MAGNESIUM SULFATE IN 0.9% NACL (MAGNESIUM SULFATE IN NS) 2 gram/100 mL PgBk Inject 2 g intravenously as directed. INFUSE 2000 mg in NS 250 ML IV OVER 1 HOUR - 0.9 % SODIUM CHLORIDE (NACL) 0.9% solution Inject 500 mL intravenously as directed. INFUSE 500 CC IV NS IV OVER 30 MIN - ondansetron, PF, 4 mg/2 mL Soln Inject 8 mg intravenously as directed. INFUSE 8 mg in NS 50 ML IV OVER 30 MIN. May repeat x1 Problem List As Of Date: 07/19/2022 (None) Encounter Status:Closed by MARILOU GRANGER on 07/19/22 Normal [facility] XR CSPINE OBL FLEX_EXTon XR CSPINE OBL FLEX_EXT EXAMINATION: XR C SPINE OBL FLEX_EXT HISTORY: Brachial (cervical) neuritis ; chronic neck pain radiating into right arm COMPARISON: No relevant comparison available. FINDINGS: BONES: Straightening of the normal lordotic curvature. No fracture, spondylolisthesis, or facet arthropathy. No change in alignment during flexion and extension. DISC SPACES: Minimal narrowing C2-C3. PARASPINOUS: No paraspinous abnormality is seen. OTHER: Negative. IMPRESSION: 1. No appreciable acute abnormality or significant degenerative changes. 2. Straightening of normal lordotic curvature; positioning versus muscle spasm. 3. Minimal narrowing C2-C3 disc space; developmental versus mild degenerative changes. Electronically authenticated by: NAVNEET MONTERO Date: 2022-02-16 08:57 Normal [facility] Ferritin [Mass/volume] in Se rum or PlasmaOrdered By: Kenna Padilla on 01-19-2022 Ferritin [Mass/Vol] 51.8 ng/mL 11-306.8 [facility] PAP ACOG PANEL 2: 30 to 65on 01-13-2022 . . Normal [facility] Comment on above: Result Comment: Perf ormed at: WB Performed By: #### 4 [id number] #### [facility] [address] [place] [address] Dr. Lui Fonseca Age Gdln ACOG Testing 30-65 Normal [facility] Comment on above: Performed By: #### 4 [id number] #### [facility] [address] [place] [address] Dr. Lui Fonseca DIAGNOSIS: Comment Normal [facility] Comment on above: Result Comment: NEGA TIVE FOR INTRAEPITHELIAL LESION OR MALIGNANCY. Performed at: WB Performed By: #### 4 [id number] #### [facility] [address] [place] [address] Dr. Lui Fonseca HPV Aptima Negative Normal Negative [facility] Comment on above: Result Comment: This nucleic acid amplification test detects fourteen high-risk HPV types (16,18,31,33,35,39,45,51,52,56,58,59,66,68) without differentiation. Performed at: =G Performed By: #### 4 [id number] #### [facility] [address] [place] [address] Dr. Lui oFnseca Methodology: Comment [facility] Comment on above: Result Comment: This liquid based ThinPrep(R) pap test was screened with the use of an image guided system. Performed at: WB Performed By: #### 4 [id number] #### [facility] [address] [place] [address] Dr. Lui Fonseca Note: Comment Normal [facility] Comment on above: Result Comment: The Pap smear is a screening test designed to aid in the detection of premalignant and malignant conditions of the uterine cervix. It is not a diagnostic procedure and should not be used as the sole means of detecting cervical cancer. Both false-positive and false-negative reports do occur. . Performed at: WB Performed By: #### 4 [id number] #### [facility] [address] [place] [address] Dr. Lui Fonseca Performed by: Comment Normal [facility] Comment on above: Result Comment: Susan Alejandro, Supervisory Tray Server (ASCP) Performed at: WB Performed By: #### 4 [id number] #### [facility] [address] [place] [address] Dr. Lui Fonseca Specimen adequacy: Comment Normal [facility] Comment on above: Result Comment: Sati sfactory for evaluation. No endocervical component is identified. Performed at: WB Performed By: #### 4 [id number] #### [facility] [address] [place] [address] Dr. Lui Fonseca INSULINon 01-02-2022 Insulin 20.6 uIU/mL Normal 2.6-24.9 [facility] Comment on above: Performed By: #### I NSULIN #### [facility] [address] [place] [address] Dr. Lui Fonseca H PYLORI ANTIBODY IGGon 12-19 H. PYLORI IGG ABS 0.15 Index Value Normal 0.00-0.79 [facility] Comment on above: Result Comment: Nega tive <0.80 Equivocal 0.80 - 0.89 Positive >0.89 Performed By: #### H PYLLC #### [facility] [address] [place] [address] Dr. Lui Fonseca T4, T3U, FTI LABCORPon 01-01 Free Thyroxine Index 2.7 Normal 1.2-4.9 [facility] Comment on above: Performed By: #### T HYLC #### [facility] [address] [place] [address] Dr. Lui Fonseca T3 Uptake 30 % Normal 24-39 [facility] Comment on above: Performed By: #### T HYLC #### [facility] [address] [place] [address] Dr. Lui Fonseca T4 [Mass/Vol] 9.1 ug/dL Normal 4.5-12.0 [facility] Comment on above: Performed By: #### T HYLC #### [facility] [address] [place] [address] Dr. Lui Fonseca CBC AUTO DIFFon 12-31-2021 BASO # 0.0 103/ul Normal 0.0-0.1 [facility] Comment on above: Performed By: #### C BC #### [facility] [address] [place] [address] Dr. Lui Fonseca Basophils/100 WBC (Bld) 0.4 % Normal 0.2-2.0 [facility] Comment on above: Performed By: #### C BC #### [facility] [address] [place] [address] Dr. Lui Fonseca EO # 0.2 103/ul Normal 0.0-0.7 [facility] Comment on above: Performed By: #### C BC #### [facility] [address] [place] [address] Dr. Lui Fonseca Eosinophils/100 WBC (Bld) 2.8 % Normal 0.9-7.0 [facility] Comment on above: Performed By: #### C BC #### [facility] [address] [place] [address] Dr. Lui Fonseca Erythrocyte distribution width (RBC) [Ratio] 13.2 % Normal 11.0-15.0 [facility] Comment on above: Performed By: #### C BC #### [facility] [address] [place] [address] Dr. Lui Fonseca Hematocrit (Bld) [Volume fraction] 44.0 % Normal 36.0-48.0 [facility] Comment on above: Performed By: #### C BC #### [facility] [address] [place] [address] Dr. Lui Fonseca Hemoglobin (Bld) [Mass/Vol] 14.3 g/dL Normal 12.0-16.0 [facility] Comment on above: Performed By: #### C BC #### [facility] [address] [place] [address] Dr. Lui Fonseca IG # 0.01 10e3/ul Normal 0.00-0.03 [facility] Comment on above: Performed By: #### C BC #### [facility] [address] [place] [address] Dr. Lui Fonseca IG % 0.2 % Normal 0.0-0.5 [facility] Comment on above: Performed By: #### C BC #### [facility] [address] [place] [address] Dr. Lui Fonseca LYMPH # 2.3 103/ul Normal 1.2-3.8 [facility] Comment on above: Performed By: #### C BC #### [facility] [address] [place] [address] Dr. Lui Fonseca Lymphocytes/100 WBC (Bld) 41.6 % Normal 20.5-60.0 [facility] Comment on above: Performed By: #### C BC #### [facility] [address] [place] [address] Dr. Lui Fonseca MANUAL DIFF REQ NO Normal [facility] Comment on above: Performed By: #### C BC #### [facility] [address] [place] [address] Dr. Lui Fonseca MCH (RBC) [Entitic mass] 29.1 pg Normal 26.7-34.0 [facility] Comment on above: Performed By: #### C BC #### [facility] [address] [place] [address] Dr. Lui Fonseca MCHC (RBC) [Mass/Vol] 32.5 g/dL Normal 29.9-35.2 [facility] Comment on above: Performed By: #### C BC #### [facility] [address] [place] [address] Dr. Lui Fonseca MCV (RBC) [Entitic vol] 89.6 fL Normal 81.0-99.0 [facility] Comment on above: Performed By: #### C BC #### [facility] [address] [place] [address] Dr. Lui Fonseca MONO # 0.3 103/ul Normal 0.3-0.8 [facility] Comment on above: Performed By: #### C BC #### [facility] [address] [place] [address] Dr. Lui Fonseca Monocytes/100 WBC (Bld) 6.3 % Normal 1.7-12.0 [facility] Comment on above: Performed By: #### C BC #### [facility] [address] [place], [place] [id number] Dr. Lui Fonseca NEUT # 2.7 103/ul Normal 1.4-6.5 [facility] Comment on above: Performed By: #### C BC #### [facility] [address] [place] [address] [address] Lui Fonseca Neutrophils/100 WBC (Bld) 48.7 % Normal 43.0-75.0 [facility] Comment on above: Performed By: #### C BC #### [facility] [address] [place] [address] [address] Lui Fonseca Platelet mean volume (Bld) [Entitic vol] 9.5 fL Normal 9.5-13.5 [facility] Comment on above: Performed By: #### C BC #### [facility] [address] [place] [address] Dr. Lui Fonseca PLT 276 103/ul Normal 150-450 [facility] Comment on above: Performed By: #### C BC #### [facility] [address] [place] [address] Dr. Lui Fonseca RBC 4.91 106/ul Normal 4.20-5.40 [facility] Comment on above: Performed By: #### C BC #### [facility] [address] [place] [address] Dr. Lui Fonseca WBC 5.4 103/ul Normal 4.0-11.0 [facility] Comment on above: Performed By: #### C BC #### [facility] [address] [place] [address] Dr. Lui Fonseca GLYCOHEMOGLOBIN A1Con 2021 ADA RECOMMENDATION SEE BELOW Normal [facility] Comment on above: Result Comment: ADA RECOMMENDED LIMIT 4.0 - 6.0 ADA THERAPEUTIC TARGET < 7.0 ACTION SUGGESTED > 7.0 Performed By: #### A 1C ####[facility] [address] [place] [address]Dr. Lui Fonseca Glucose [Mass/Vol] 97 mg/dL Normal [facility] Comment on above: Performed By: #### A 1C ####[facility] [address] [place] [address]Dr. Lui Fonseca HbA1c (Bld) [Mass fraction] 5.0 % Normal 4.5-6.2 [facility] Comment on above: Performed By: #### A 1C ####[facility] [address] [place], [place] [address]BeDr. Lui Fonseca IRONon 12-31-2021 Iron [Mass/Vol] 101.0 ug/dL Normal 50.0-170.0 [facility] Comment on above: Performed By: #### I EDMOND #### [facility] [address] [place], [place] [address] Dr. Lui Fonseca LIPID PROFILEon 12-31-2021 CHOL-HDL RATIO NORM SEE BELOW Normal [facility] Comment on above: Result Comment: 3.3 - 4.4 LOW RISK 4.4 - 7.1 AVERAGE RISK 7.1 - 11.0 MODERATE RISK >11.0 HIGH RISK Performed By: #### T SH, LIPID, CMP ####[facility] [address] [place] [id number] Fonseca Cholesterol [Mass/Vol] 149 mg/dL Normal <=200 Th [facility] Comment on above: Performed By: #### T SH, LIPID, CMP ####[facility] [address] [place] [id number] Fonseca Cholesterol in HDL [Mass/Vol] 55 mg/dL Normal 40-60 [facility] Comment on above: Performed By: #### T MAMADOU, LIPID, CMP ####[facility] [address] [place] [id number] Fonseca Cholesterol in LDL [Mass/Vol] 61.4 mg/dL Normal [facility] Comment on above: Performed By: #### T SH, LIPID, CMP ####[facility] [address] [place] [id number] Fonseca Cholesterol.total/Chol esterol in HDL [Mass ratio] 2.7 {ratio} Normal [facility] Comment on above: Performed By: #### T SH, LIPID, CMP ####[facility] [address] [place] [id number] Fonseca HDL NORMAL > or = 60 mg/dl - LO W CARDIOVASCULAR RISK <40 mg/dl - HIGH CARDIOVASCULAR RISK Normal [facility] Comment on above: Performed By: #### T MAMADOU, LIPID, CMP ####[facility] [address] [place] [id number] Fonseca LDL CALC NORMAL SEE BELOW Normal [facility] Comment on above: Result Comment: <100 mg/dl OPTIMAL 100 - 129 mg/dl NEAR OR ABOVE OPTIMAL 130 - 159 mg/dl BORDERLINE HIGH 160 - 189 mg/dl HIGH >190 mg/dl VERY HIGH Performed By: #### T MAMADOU, LIPID, CMP ####[facility] [address] [place] [address]Dr. Lui Fonseca Triglyceride [Mass/Vol] 163 mg/dL Critically high <=150 [facility] Comment on above: Performed By: #### T MAMADOU, LIPID, CMP ####[facility] [address] [place] [address]DrLatisha Fonseca VLDL CALC 32.6 mg/dL Normal [facility] Comment on above: Performed By: #### T MAMADOU, LIPID, CMP ####[facility] [address] [place] [address]Dr. Lui Fonseca OCC BLD IMMUNO SCREENon 12-19 OCCULT BLOOD Negative Normal NEGATIVE [facility] Comment on above: Performed By: #### O BSCRN #### [facility] [address] [place] [address] [address] Lui Fonseca PROF 14(COMP METB)on 022 Albumin [Mass/Vol] 4.1 g/dL Normal 3.4-5.0 [facility] Comment on above: Performed By: #### T SH, LIPID, CMP ####[facility] [address] [place] [address]Dr. Lui Fonseca Albumin/Globulin [Mass ratio] 1.2 {ratio} Normal [facility] Comment on above: Performed By: #### T MAMADOU, LIPID, CMP ####[facility] [address] [place] [address]DrLatisha Fonseca ALP [Catalytic activity/Vol] 86 U/L Normal 46-116 [facility] Comment on above: Performed By: #### T MAMADOU, LIPID, CMP ####[facility] [address] [place] [address]Dr. Lui Fonseca ALT [Catalytic activity/Vol] 27 U/L Normal 14-59 [facility] Comment on above: Performed By: #### T MAMADOU, LIPID, CMP ####[facility] [address] [place], [place] [address]Dr. Lui Fonseca Anion gap [Moles/Vol] 14.1 mmol/L Normal [facility] Comment on above: Performed By: #### T MAMADOU LIPID, CMP ####[facility] [address] [place], [place] [address]Dr. Lui Fonseca AST [Catalytic activity/Vol] 15 U/L Normal 15-37 [facility] Comment on above: Performed By: #### T MAMADOU LIPID, CMP ####[facility] [address] [place], [place] [address]Dr. Liu Fonseca Bilirubin [Mass/Vol] 0.6 mg/dL Normal 0.2-1.0 [facility] Comment on above: Performed By: #### T MAMADOU LIPID, CMP ####[facility] [address] [place], [place] [address]Dr. Lui Fonseca Calcium [Mass/Vol] 9.1 mg/dL Normal 8.5-10.1 [facility] Comment on above: Performed By: #### T MAMADOU, LIPID, CMP ####[facility] [address] [place] [address]Dr. Lui Fonseca Chloride [Moles/Vol] 104 mmol/L Normal 98-107 [facility] Comment on above: Performed By: #### T MAMADOU, LIPID, CMP ####[facility] [address] [place], [place] [address]Dr. Lui Fonseca CO2 [Moles/Vol] 26.8 mmol/L Normal 21.0-32.0 [facility] Comment on above: Performed By: #### T MAMADOU, LIPID, CMP ####[facility] [address] [place] [address]Dr. Lui Fonseca Creatinine [Mass/Vol] 0.84 mg/dL Normal 0.55-1.02 [facility] Comment on above: Performed By: #### T SH, LIPID, CMP ####[facility] [address] [place], [place] [address]Ps. Lui Fonseca EGFR-AF BELARUSIAN >60 Normal >=60 [facility] Comment on above: Performed By: #### T SH, LIPID, CMP ####[facility] [address] [place] [address]Dr. Lui Fonseca EGFR-NON AF BELARUSIAN >60 Normal >=60 [facility] Comment on above: Performed By: #### T SH, LIPID, CMP ####[facility] [address] [place] [address]Dr. Lui Fonseca Globulin (S) [Mass/Vol] 3.3 g/dL Normal [facility] Comment on above: Performed By: #### T MAMADOU, LIPID, CMP ####[facility] [address] [place] [address]Dr. Lui Fonseca Glucose [Mass/Vol] 93 mg/dL Normal 74-106 [facility] Comment on above: Performed By: #### T MAMADOU, LIPID, CMP ####[facility] [address] [place] [address]Dr. Lui Fonseca Potassium [Moles/Vol] 3.9 mmol/L Normal 3.5-5.1 [facility] Comment on above: Performed By: #### T SH, LIPID, CMP ####[facility] [address] [place] [address]Dr. Lui Fonseca Protein [Mass/Vol] 7.4 g/dL Normal 6.4-8.2 [facility] Comment on above: Performed By: #### T SH, LIPID, CMP ####[facility] [address] [place] [address]Dr. Lui Fonseca Sodium [Moles/Vol] 141 mmol/L Normal 136-145 [facility] Comment on above: Performed By: #### T SH, LIPID, CMP ####[facility] [address] [place], [place] [address]Pe. Lui Fonseca Urea nitrogen [Mass/Vol] 8.0 mg/dL Normal 7.0-18.0 [facility] Comment on above: Performed By: #### T SH, LIPID, CMP ####[facility] [address] [place], [place] [address]Ia. Lui Raymundo Urea nitrogen/Creatinine [Mass ratio] 9.5 mg/mg Normal [facility] Comment on above: Performed By: #### T SH, LIPID, CMP ####[facility] [address] [place], [place] [address]Ty. Lui Fonseca TSHon 12-31-2021 TSH 0.539 uIU/mL Normal 0.358-3.74 0 [facility] Comment on above: Performed By: #### T SH, LIPID, CMP ####[facility] [address] [place] [id number]. Lui Raymundo Vital Signs Date Time Vital Sign Value Performing Clinician Facility 04-05-2023 12:08-0500 Body temperature 98.2 [degF] MD Filiberto Ying Work Phone: [facility] 04-05-2023 12:08-0500 Diastolic blood pressure 69 mm[Hg] MD Filiberto Ying Work Phone: [facility] 04-05-2023 12:08-0500 Heart rate 87 /min MD Filiberto Ying Work Phone: [facility] 04-05-2023 12:08-0500 Respiratory rate 18 /min MD Filiberto Ying Work Phone: [facility] 04-05-2023 12:08-0500 SaO2% (BldA) [Mass fraction] 100 % MD Filiberto Ying Work Phone: [facility] 04-05-2023 12:08-0500 Systolic blood pressure 110 mm[Hg] MD Filiberto Ying Work Phone: [facility] 01-12-2023 09:35-0400 Body height 157.5 cm Maria Del Carmen Jony SHOULDER PAD MOLDER.[employer]ANQUET KITCH[employer] SUPERVISOR Work Phone: [facility] 01-12-2023 09:35-0400 Body weight 70.31 kg Maria Del Carmen Jony SHOULDER PAD MOLDER.[employer] SUPERVISOR Work Phone: [facility] 01-12-2023 09:35-0400 Diastolic blood pressure 69 mm[Hg] Maria Del Carmen Jony SHOULDER PAD MOLDER.[employer]ANQUET KITCH[employer] SUPERVISOR Work Phone: [facility] 01-12-2023 09:35-0400 Heart rate 110 /min Maria Del Carmen Jony SHOULDER PAD MOLDER.[employer]ANQUET KITCH[employer] SUPERVISOR Work Phone: [facility] 01-12-2023 09:35-0400 SaO2% (BldA) [Mass fraction] 93 % [facility] PAD MOLDER.BANQUET KITCHEN SUPERVISOR Work Phone: [facility] 01-12-2023 09:35-0400 Systolic blood pressure 110 mm[Hg] Maria Del Carmen Jony SHOULDER PAD MOLDER.[employer]ANQUET KITCH[employer] SUPERVISOR Work Phone: [facility] 10-23-2022 14:14-0400 Diastolic blood pressure 66 mm[Hg] MD Filiberto Ying Work Phone: [facility] 10-23-2022 14:14-0400 Heart rate 100 /min MD Filiberto Ying Work Phone: [facility] 10-23-2022 14:14-0400 Systolic blood pressure 113 mm[Hg] MD Filiberto Ying Work Phone: [facility] 10-23-2022 13:50-0400 SaO2% (BldA) [Mass fraction] 99 % MD Filiberto Ying Work Phone: [facility] 09-20-2022 10:01-0400 Diastolic blood pressure 88 mm[Hg] Filiberto Ying Work Phone: [facility] 250 DO Work Phone: 09-20-2022 10:01-0400 Diastolic blood pressure 84 mm[Hg] Filiberto Petersy Work Phone: [facility] 250 DO Work Phone: 09-20-2022 10:01-0400 Diastolic blood pressure 86 mm[Hg] Filiberto M Hoy Work Phone: [facility] 250 DO Work Phone: 09-20-2022 10:01-0400 Systolic blood pressure 120 mm[Hg] Filiberto M Hoy Work Phone: [facility] 250 DO Work Phone: 09-20-2022 10:01-0400 Systolic blood pressure 122 mm[Hg] Filiberto M Hoy Work Phone: [facility] 250 DO Work Phone: 09-20-2022 09:59-0400 Body height 157.48 cm Filiberto M Hoy Work Phone: [facility] 250 DO Work Phone: 09-20-2022 09:59-0400 Body mass index (BMI) [Ratio] 30.36 kg/m2 Filiberto M Hoy Work Phone: [facility] 250 DO Work Phone: 09-20-2022 09:59-0400 Body surface area Derived from formula 1.77 m2 Filiberto M Hoy Work Phone: [facility] 250 DO Work Phone: 09-20-2022 09:59-0400 Body weight 75.3 kg Filiberto M Hoy Work Phone: [facility] 250 DO Work Phone: 09-20-2022 09:59-0400 Diastolic blood pressure 88 mm[Hg] Filiberto M Hoy Work Phone: [facility] 250 DO Work Phone: 09-20-2022 09:59-0400 Heart rate 85 /min Filiberto M Hoy Work Phone: [facility] 250 DO Work Phone: 09-20-2022 09:59-0400 Systolic blood pressure 120 mm[Hg] Filiberto Ying Work Phone: [facility] 250 DO Work Phone: 07-28-2022 13:01-0500 Body height 157.5 cm Somjita Braxton SHOULDER PAD MOLDER.[employer]ANQUET KITCH[employer] SUPERVISOR Work Phone: [facility] 07-28-2022 13:01-0500 Body temperature 97.81 [degF] Somjita Braxton SHOULDER PAD MOLDER.BANQUET KITCHEN SUPERVISOR Work Phone: [facility] 07-28-2022 13:01-0500 Body weight 79.11 kg Somjita Braxton SHOULDER PAD MOLDER.BANQUET KITCHEN SUPERVISOR Work Phone: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 no stressors in her life at this point time, she denies any syncope while driving as she has the clinical prodrome. She has had previous Holter monitoring and echocardiography in the past which have not revealed any arrhythmias or structural heart disease. She denies angina, stroke or thromboembolic disorder, she has no family history of autonomic dysfunction or syncopal episodes or arrhythmias.Her ECG today is normal. Her QT corrected interval is normal.Once again we have reviewed vasovagal syncope diagnosis and treatment including compression stockings, hydration. She was on propanolol for some period of time but was taken off of this for unknown reason I believe placed on it for palpitations in the remote past. Notably she has no rebound tachycardia.Recommendations, obtain [employer] monitoring, tilt table test, refer to either EP or syncope clinic, I can follow-up on a as needed basis, as there is no interventional necessity at this time [facility] [address] DO Work Phone: Chief complaint Narrative - Reported BRITTANIE GARCIA is being seen for an initial evaluation of syncope.37-year-old healthy female seen in cardiology consultation at the request of Dr. Ying for recurrent syncopal episodes. She describes 7 or 8 episodes of syncope with a prodrome of nausea, feeling heated, warm, clammy and occasionally with emesis and then passing out very briefly. Similar to 2013 this sounds like classic vasovagal syncope. She has not seen cardiology since 2013. She has no stressors in her life at this point time, she denies any syncope while driving as she has the clinical prodrome. She has had previous Holter monitoring and echocardiography in the past which have not revealed any arrhythmias or structural heart disease. She denies angina, stroke or thromboembolic disorder, she has no family history of autonomic dysfunction or syncopal episodes or arrhythmias.Her ECG today is normal. Her QT corrected interval is normal.Once again we have reviewed vasovagal syncope diagnosis and treatment including compression stockings, hydration. She was on propanolol for some period of time but was taken off of this for unknown reason I believe placed on it for palpitations in the remote past. Notably she has no rebound tachycardia.Recommendations, obtain [employer] monitoring, tilt table test, refer to either EP or syncope clinic, I can follow-up on a as needed basis, as there is no interventional necessity at this time [facility] Work Phone: Chief complaint Narrative - Reported BRITTANIE GARCIA is being seen for an initial evaluation of syncope.37-year-old healthy female seen in cardiology consultation at the request of Dr. Ying for recurrent syncopal episodes. She describes 7 or 8 episodes of syncope with a prodrome of nausea, feeling heated, warm, clammy and occasionally with emesis and then passing out very briefly. Similar to 2013 this sounds like classic vasovagal syncope. She has not seen cardiology since 2013. She has no stressors in her life at this point time, she denies any syncope while driving as she has the clinical prodrome. She has had previous Holter monitoring and echocardiography in the past which have not revealed any arrhythmias or structural heart disease. She denies angina, stroke or thromboembolic disorder, she has no family history of autonomic dysfunction or syncopal episodes or arrhythmias.Her ECG today is normal. Her QT corrected interval is normal.Once again we have reviewed vasovagal syncope diagnosis and treatment including compression stockings, hydration. She was on propanolol for some period of time but was taken off of this for unknown reason I believe placed on it for palpitations in the remote past. Notably she has no rebound tachycardia.Recommendations, obtain [employer] monitoring, tilt table test, refer to either EP or syncope clinic, I can follow-up on a as needed basis, as there is no interventional necessity at this time [facility] 250 DO Work Phone: Chief complaint Narrative - Reported BRITTANIE GARCIA is being seen for an initial evaluation of syncope.37-year-old healthy female seen in cardiology consultation at the request of Dr. Ying for recurrent syncopal episodes. She describes 7 or 8 episodes of syncope with a prodrome of nausea, feeling heated, warm, clammy and occasionally with emesis and then passing out very briefly. Similar to 2014 this sounds like classic vasovagal syncope. She has not seen cardiology since 2013. She has no stressors in her life at this point time, she denies any syncope while driving as she has the clinical prodrome. She has had previous Holter monitoring and echocardiography in the past which have not revealed any arrhythmias or structural heart disease. She denies angina, stroke or thromboembolic disorder, she has no family history of autonomic dysfunction or syncopal episodes or arrhythmias.Her ECG today is normal. Her QT corrected interval is normal.Once again we have reviewed vasovagal syncope diagnosis and treatment including compression stockings, hydration. She was on propanolol for some period of time but was taken off of this for unknown reason I believe placed on it for palpitations in the remote past. Notably she has no rebound tachycardia.Recommendations, obtain [employer] monitoring, tilt table test, refer to either EP or syncope clinic, I can follow-up on a as needed basis, as there is no interventional necessity at this time [facility] Work Phone: Evaluation note No assessment inform ation available [facility] Work Phone: Evaluation note Diagnosis Neck pain, chronic [facility]erv[facility] Neck pain, chronic- Primary Cervicalgia [facility] Diagnosis Neck pain, chronic- Primary Cervicalgia Fibromyalgia Mylagia and myositis, unspecified [facility] Diagnosis Cervical dystonia- Primary Spasmodic torticollis Neck tightness Unspecified musculoskeletal disorders and symptoms referable to neck RLS (restless legs syndrome) Restless legs syndrome (RLS) [facility] Diagnosis Onset Date Resolution Status Left breast mass acute [facility] Work Phone: Reason for referral (narrative)* Diagnostic Procedure Only (Routine) - Closed Specialty Diagnoses / Procedures Referred By Contac t Referred To Contact XR IMAGING Diagnoses Neck pain, chronic Procedures XR CERV OTHER 4V AP/LAT/OBL RADEX SPINE CERVICAL 4 OR 5 VIEWS Monique Limon APRN.CNP [address] [place] [address] Xr Imaging Referral ID Status Reason Start Date Expiration Date V isits Requested Visits Authorized [id number] Closed Auto-Generate d Referral 07/28/2022 08/27/2023 1 1 [facility] for referral (narrative)* Diagnostic Procedure Only (Routine) - Closed Specialty Diagnoses / Procedures Referred By Contac t Referred To Contact XR IMAGING Diagnoses Neck pain, chronic Procedures XR CERV OTHER 4V AP/LAT/OBL RADEX SPINE CERVICAL 4 OR 5 VIEWS Monique Limon APRN.CNP [address] [place] [id number] Xr Imaging Referral ID Status Reason Start Date Expiration Date V isits Requested Visits Authorized [id number] Closed Auto-Generate d Referral 07/28/2022 08/27/2023 [facility] Diagnostic Procedure Only (Routine) - Closed Specialty Diagnoses / Procedures Referred By Contac t Referred To Contact XR IMAGING Diagnoses Neck pain, chronic Procedures XR CERV OTHER 4V AP/LAT/OBL RADEX SPINE CERVICAL 4 OR 5 VIEWS Monique Limon APRN.[employer] SUPERVISOR [address] [place] [address] Xr Imaging Referral ID Status Reason Start Date Expiration Date V isits Requested Visits Authorized [id number] Closed Auto-Generate d Referral 07/28/2022 08/27/2023 1 1 [facility] Chief Complaint and Reason for Visit Chief Complaint g43.709 G25.81 R79.0 D50.9 Chief Complaint N63.20 N63.13 r55 Chief Complaint g25.81 Chief Complaint g25.81 n63.10 n63.20 Reason for Visit Left breast mass Chief Complaint g25.81 n63.10 n63.20 Bilateral Breast Masses Reason for Visit Left breast mass Advance Directives No Advanced Directives Records Found Advance Directive Response Recorded Date/ Time Advance Directives No August 04 7:56am Advance Directive Response Recorded Date/ Time Advance Directives No August 04 6:56am Reason for Referral Specialty Diagnoses / Procedures Referred By Contac t Referred To Contact Neurology Diagnoses Neck pain, chronic Procedures CONSULT TO NEUROLOGY OFFICE/OUTPATIENT [facility] 60-74 MINUTES Monique Limon APRN.[employer] SUPERVISOR [address] [place] [address] Referral ID Status Reason Start Date Expiration Date Visits Requested Visits Authorized [id number] Authorized PCP Requested Referral 08/11/2022 08/11/2023 1 1 Specialty Diagnoses / Procedures Referred By Contac t Referred To Contact Diagnoses Fibromyalgia Procedures CONSULT TO FUNCTIONAL MEDICINE OFFICE/OUTPATIENT [facility] 60-74 MINUTES Monique Limon APRN.[employer] SUPERVISOR [address] [place] [id number] Referral ID Status Reason Start Date Expiration Date Visits Requested Visits Authorized [id number] Authorized PCP Requested Referral 08/11/2022 08/11/2023 1 1 Specialty Diagnoses / Procedures Referred By Contac t Referred To Contact Neurology Diagnoses Cervical dystonia Neck tightness Procedures CONSULT TO NEUROLOGY OFFICE/OUTPATIENT [facility] 60-74 MINUTES Maria Del Carmen Borges APRN.[employer] [id number] [place] [address] Referral ID Status Reason Start Date Expiration Date Visits Requested Visits Authorized [id number] Pending Review PCP Requested Referral 01/12/2023 01/12/2024 1 1 Summary Purpose Family History Unknown Family Member Name Dates Details Family history of migraine h eadaches: Mother(V17.2, Z82.0) Status:Active Family history of hyperlipid emia: Father(V18.19, Z83.438) Status:Active Hypertension, benign: Father Status:Active No Family History Records Found Additional Source Comments Care Teams (unrecognized sec tion and content) Team Status: Active Member Role Status Dates Filiberto Ying MD Primary Care Provider Active Team Status: Inactive Member Role Status Dates Filiberto Ying MD Primary Care Provider Active Roseanne Castellanos DO Attending Provider Active Romero Jones MD Referring Provider Active Team Status: Inactive Member Role Status Dates Filiberto Ying MD Primary Care Provider Active Jamin Mcdaniel DO Attending Provider Active Team Status: Inactive Member Role Status Dates Filiberto Ying MD Primary Care Provider Active Kenna Padilla PA-C Attending Provider Active Belt Repairer Relationship Specialty Start Date End Date Filiberto Ying MD PCP - General Family Medicine 06/05/12 Kenna Padilla PA-C [address] [place] [id number] Referring Neurology 07/19/22 Belt Repairer Relationship Specialty Start Date End Date Filiberto Ying MD PCP - General Family Medicine 06/05/12 Kenna Padilla PA-C [address] [place] [address] Referring Neurology 07/19/22 Belt Repairer Relationship Specialty Start Date End Date Filiberto Ying MD PCP - General Family Medicine 06/05/12 Kenna Padilla PA-C [address] [address] Referring Neurology 07/19/22 Belt Repairer Relationship Specialty Start Date End Date Filiberto Ying MD PCP - General Family Medicine 06/05/12 Kenna Padilla PA-C [address] [address] Referring Neurology 07/19/22 Belt Repairer Relationship Specialty Start Date End Date Filiberto Ying MD PCP - General Family Medicine 06/05/12 Kenna Padilla PA-C [address] [id number] Referring Neurology 07/19/22 Belt Repairer Relationship Specialty Start Date End Date Filiberto Ying MD PCP - General Family Medicine 06/05/12 Kenna Padilla PA-C [address] [id number] Referring Neurology 07/19/22 Belt Repairer Relationship Specialty Start Date End Date Filiberto Ying MD PCP - General Family Medicine 06/05/12 Kenna Padilla PA-C [address] [address] Referring Neurology 07/19/22 Team Status: Inactive Member Role Status Dates Filiberto Ying MD Primary Care Provider Active Maria Del Carmen Borges APRN CONTINUOUS PILLOWCASE CUTTER-BC Attending Provider Active Goals (unrecognized section and content) Goals may be documented in a n alternate sectionGoals may be documented in an alternate sectionGoals may be documented in an alternate sectionGoals may be documented in an alternate sectionGoals may be documented in an alternate section Source Comments (unrecognize d section and content) In the event this informatio n is protected by the Federal Confidentiality of Alcohol and Drug Abuse Patient Records regulations: The Federal rules restrict any use of the information to criminally investigate or prosecute any alcohol or drug abuse patient.[facility] the event this information is protected by the Federal Confidentiality of Alcohol and Drug Abuse Patient Records regulations: The Federal rules restrict any use of the information to criminally investigate or prosecute any alcohol or drug abuse patient.[facility] Center[facility] the event this information is protected by the Federal Confidentiality of Alcohol and Drug Abuse Patient Records regulations: The Federal rules restrict any use of the information to criminally investigate or prosecute any alcohol or drug abuse patient.[facility] Center[facility] the event this information is protected by the Federal Confidentiality of Alcohol and Drug Abuse Patient Records regulations: The Federal rules restrict any use of the information to criminally investigate or prosecute any alcohol or drug abuse patient.[facility] Center[facility] the event this information is protected by the Federal Confidentiality of Alcohol and Drug Abuse Patient Records regulations: The Federal rules restrict any use of the information to criminally investigate or prosecute any alcohol or drug abuse patient.[facility] Center[facility] the event this information is protected by the Federal Confidentiality of Alcohol and Drug Abuse Patient Records regulations: The Federal rules restrict any use of the information to criminally investigate or prosecute any alcohol or drug abuse patient.[facility] Center[facility] the event this information is protected by the Federal Confidentiality of Alcohol and Drug Abuse Patient Records regulations: The Federal rules restrict any use of the information to criminally investigate or prosecute any alcohol or drug abuse patient.[facility] Center[facility] the event this information is protected by the Federal Confidentiality of Alcohol and Drug Abuse Patient Records regulations: The Federal rules restrict any use of the information to criminally investigate or prosecute any alcohol or drug abuse patient.[facility] Reason for Visit (unrecogniz ed section and content) Reason Comments Neck Pain Reason Comments Neck Pain Follow up Reason Comments New Patient Reason Comments Results [facility] Reason Comments Results [facility] INFORMATION SOURCE (unrecogn ized section and content) DATE CREATED AUTHOR 09/07/2022 [facility] DATE CREATED AUTHOR AUTHOR'S ORGANIZ ATION 11/15/2022 [employer] DATE CREATED AUTHOR AUTHOR'S ORGANIZ ATION 01/01/2023 [facility] DATE CREATED AUTHOR AUTHOR'S ORGANIZ ATION 02/04/2023 [facility] DATE CREATED AUTHOR AUTHOR'S ORGANIZ ATION 04/15/2023 [facility] DATE CREATED AUTHOR AUTHOR'S ORGANIZ ATION 05/03/2023 [facility] FOR RECORDS PERTAINING TO PATIENTS WHO ARE OR HAVE BEEN ENROLLED IN A CHEMICAL DEPENDENCY/SUBSTANCEABUSE PROGRAM, SOME INFORMATION MAY BE OMITTED. This clinical summary was aggregated from multiple sources. Caution should be exercised in using it in the provision of clinical care. This summary normalizes information from multiple sources, and as a consequence, information in this document may materially change the coding, format and clinical context of patient data. In addition, data may be omitted in some cases. CLINICAL DECISIONS SHOULD BE BASED ON THE PRIMARY CLINICAL RECORDS. [facility] [employer] [facility]. provides no warranty or guarantee of the accuracy or completeness of information in this document.
[2023-05-13 05:21] VITALS: BP 126/80
--- NOTE | 2023-05-13 05:24 | ED_ITS ---
HPI - Neck Pain/Injury General Chief Complaint: Neck Pain/Injury Stated Complaint: NECK SPASMS Time Seen by Provider: 05/13/23 05:15 Source: patient Mode of arrival: walk-in Limitations: no limitations History of Present Illness HPI Narrative: history of cervical muscular dystonia. States she takes Jackman and Valium. Ongoing problem for years. States she now has a flare up that started yesterday. Involves bilat paracervical muscles and extends a tightness into her scalp. No radicular symptoms or weakness MD complaint: Reports neck pain Related Data Home Medications Medication Instructions Recorded Confirmed cetirizine 10 mg tablet (Allergy 10 mg PO DAILY 03/21/23 03/21/23 Relief (cetirizine)) diazepam 10 mg tablet 10 mg PO DAILY PRN muscle spasm 03/21/23 05/13/23 hydrocodone 5 mg-acetaminophen 325 0.5 tab PO DAILY PRN pain 03/21/23 03/21/23 mg tablet onabotulinumtoxinA 200 unit 300 unit IM .every 3 months 03/21/23 05/13/23 solution for injection (Botox) ondansetron HCl 4 mg tablet 4 mg PO Q8H 03/21/23 05/13/23 pramipexole 1 mg tablet (Mirapex) 1 mg PO DAILY 03/21/23 05/13/23 simvastatin 40 mg tablet 40 mg PO .daily at bedtime 03/21/23 03/21/23 Previous Rx's Medication Instructions Recorded hydrocodone 5 mg-acetaminophen 325 1 tab PO DAILY PRN pain #14 tabs 03/21/23 mg tablet Allergies Allergy/AdvReac Type Severity Reaction Status Date / Time calcium [From DHEA] Allergy Severe Difficulty Verified 05/13/23 05:16 Breathing calcium carbonate [From DHEA] Allergy Severe Difficulty Verified 05/13/23 05:16 Breathing prasterone (DHEA) [From DHEA] Allergy Severe Difficulty Verified 05/13/23 05:16 Breathing caffeine Allergy Mild Vomiting Verified 05/13/23 05:16 Review of Systems ROS Status of ROS 10 or more systems reviewed and unremark able except as noted in history and below [facility] Social History Smoking status: Never smoker Exam Constitutional Vital Signs, click to edit/add: Last Vital Signs Temp 98.5 F 05/13/23 05:11 Pulse 83 05/13/23 06:50 Resp 20 05/13/23 05:11 BP 126/80 05/13/23 05:21 Pulse Ox 99 05/13/23 06:50 O2 Del Method Room Air 05/13/23 05:11 Common normals: no apparent distress, average body habitus, oriented x3, no limitations, healthy appearing, alert and well nourished Eye Common normals: EOMs intact bilaterally and conjunctivae normal Neck & C-Spine Other: mild bilat cervical paravertebral muscular tenderness Respiratory Common normals: normal respiratory effort and no retractions Auscultation: clear to auscultation bilaterally Cardio Common normals: regular rate, regular rhythm, S1 normal heart sound and S2 normal heart sound Extremity Common normals: normal to inspection and full ROM Neuro Common normals: oriented x3, CN's II-XII intact bilaterally, moves all extremities, no focal motor deficits and no sensory deficits noted Psych Appearance: grossly normal Course Vital Signs Vital signs: Vital Signs Temperature 98.5 F 05/13/23 05:11 Pulse Rate 115 H 05/13/23 05:11 Respiratory Rate 20 05/13/23 05:11 Blood Pressure 134/108 H 05/13/23 05:11 Pulse Oximetry 100 05/13/23 05:11 Oxygen Delivery Method Room Air 05/13/23 05:11 Temperature 98.5 F 05/13/23 05:11 Pulse Rate 83 05/13/23 06:50 Respiratory Rate 20 05/13/23 05:11 Blood Pressure 126/80 05/13/23 05:21 Pulse Oximetry 99 05/13/23 06:50 Oxygen Delivery Method Room Air 05/13/23 05:11 MDM - Neck Pain/Injury MDM Narrative Medical decision making narrative: patient presents with chronic dystonia of her neck. States acute flare started yesterday. she took Jackman and one valium last PM. Woke up this AM with increased pain and came to the ER. no radicular symptoms. No fever. CRP neg. Treated with muscular cocktail in the department that help to reduce her pain to a tolerable level. Discharged home to follow up with her doctor Lab Data Labs: Lab Results 05/13/23 Range/Units 05:30 WBC 6.6 (4.0-11.0) 10^3/uL RBC 5.23 (4.20-5.40) 10^6/uL Hgb 14.9 (12.0-16.0) g/dL Hct 46.8 (36.0-48.0) % MCV 89.5 (81.0-99.0) fL MCH 28.5 (26.7-34.0) pg MCHC 31.8 (29.9-35.2) g/dL RDW 12.8 (11.0-15.0) % Plt Count 288 (150-450) 10^3/uL MPV 9.7 (9.5-13.5) fL Neut % (Auto) 51.5 (43.0-75.0) % Lymph % (Auto) 39.9 (20.5-60.0) % Daniels % (Auto) 5.8 (1.7-12.0) % Eos % (Auto) 2.1 (0.9-7.0) % Baso % (Auto) 0.5 (0.2-2.0) % Neut # (Auto) 3.4 (1.4-6.5) 10^3/uL Lymph # (Auto) 2.6 (1.2-3.8) 10^3/uL Daniels # (Auto) 0.4 (0.3-0.8) 10^3/uL Eos # (Auto) 0.1 (0.0-0.7) 10^3/uL Baso # (Auto) 0.0 (0.0-0.1) 10^3/uL Abs Immat Gran (auto) 0.01 (0.00-0.03) 10^3/uL Imm/Tot Granulo (auto) 0.2 (0.0-0.5) % Sodium 133 L (136-145) mmol/L Potassium 3.7 (3.5-5.1) mmol/L Chloride 99 (98-107) mmol/L Carbon Dioxide 29.3 (21.0-32.0) mmol/L Anion Gap 8.4 BUN 16.0 (7.0-18.0) mg/dL Creatinine 0.81 (0.55-1.02) mg/dL Est GFR ( Amer) >60 (>=60) Est GFR (Non-Af Amer) >60 (>=60) BUN/Creatinine Ratio 19.8 Glucose 104 (74-106) mg/dL Calcium 9.6 (8.5-10.1) mg/dL C-Reactive Protein <0.50 (<=0.50) mg/dL Discharge Plan Discharge Chief Complaint: Neck Pain/Injury Clinical Impression: Dystonia Patient Disposition: Home, Self-Care Prescriptions / Home Meds: No Action cetirizine [Allergy Relief (cetirizine)] 10 mg tablet 10 mg PO DAILY diazepam 10 mg tablet 10 mg PO DAILY PRN (Reason: muscle spasm) hydrocodone-acetaminophen 5-325 mg tablet 0.5 tab PO DAILY PRN (Reason: pain) Rx Instructions: 1/2 tab as needed, qty 14 pills to last for 3 months simvastatin 40 mg tablet 40 mg PO .daily at bedtime Botox 200 unit recon soln 300 unit IM .every 3 months pramipexole [Mirapex] 1 mg tablet 1 mg PO DAILY ondansetron HCl 4 mg tablet 4 mg PO Q8H hydrocodone-acetaminophen 5-325 mg tablet 1 tab PO DAILY PRN (Reason: pain) Qty: 14 0RF Instructions: Spasmodic Torticollis (ED) Additional Instructions: continue your usual medications and follow up with Dr Obrien Stand Alone Forms: Portal Instructions Referrals: Danny Obrien MD [Primary Care Provider] - 1 week Discharge Date/Time: 05/13/23 06:52
[2023-05-13] MEDS: DIAZEPAM 10 MG/2 ML SYRINGE IV (05:46)
[2023-05-13] MEDS: MAGNESIUM SULFATE IN WATER 2 GM/50 ML PREMIX IV (05:46)
[2023-05-13 05:51] LABS: Basophils Percent Auto 0.5 % (0.2-2.0); Eosinophils Absolute Auto 0.1 10^3/uL (0.0-0.7); Eosinophils Percent Auto 2.1 % (0.9-7.0); Hematocrit 46.8 % (36.0-48.0); Hemoglobin 14.9 g/dL (12.0-16.0); Immature Granulocytes Abs Auto 0.01 10^3/uL (0.00-0.03); Immature Granulocytes Pct Auto 0.2 % (0.0-0.5); Lymphocytes Absolute Auto 2.6 10^3/uL (1.2-3.8); Lymphocytes Percent Auto 39.9 % (20.5-60.0); Mean Corpuscular HGB Conc 31.8 g/dL (29.9-35.2); Mean Corpuscular Hemoglobin 28.5 pg (26.7-34.0); Mean Corpuscular Volume 89.5 fL (81.0-99.0); Mean Platelet Volume 9.7 fL (9.5-13.5); Monocytes Absolute Auto 0.4 10^3/uL (0.3-0.8); Monocytes Percent Auto 5.8 % (1.7-12.0); Neutrophils Absolute Auto 3.4 10^3/uL (1.4-6.5); Neutrophils Percent Auto 51.5 % (43.0-75.0); Platelet Count 288 10^3/uL (150-450); Red Blood Count 5.23 10^6/uL (4.20-5.40); Red Cell Distribution Width 12.8 % (11.0-15.0); White Blood Count 6.6 10^3/uL (4.0-11.0)
[2023-05-13 05:56] LABS: Anion Gap 8.4; BUN Creatinine Ratio 19.8; Calcium 9.6 mg/dL (8.5-10.1); Carbon Dioxide 29.3 mmol/L (21.0-32.0); Chloride 99 mmol/L (98-107); Estimated GFR (African America >60 (>=60); Estimated GFR (Non-African Ame >60 (>=60); Glucose 104 mg/dL (74-106); Potassium 3.7 mmol/L (3.5-5.1); Sodium 133 mmol/L (136-145)
[2023-05-13] MEDS: BACLOFEN 10 MG TABLET 20 MG PO (06:00)
[2023-05-13 06:16] LABS: C Reactive Protein <0.50 mg/dL (<=0.50)
[2023-05-13] MEDS: FENTANYL CITRATE/PF 100 MCG/2 ML VIAL 50 MCG IV (06:39)
[2023-05-13] MEDS: ONDANSETRON PF 4 MG/2 ML VIAL IV (06:39)
[2023-05-13 06:50] VITALS: PULSE 83; O2SAT 99
== END 2023-05-13 06:52 | disposition home or self-care (01) ==
PROVIDERS: Emergency Provider Internal Medicine; PCP Family Medicine
DX: G24.3 Spasmodic torticollis (principal)
CPT/HCPCS: 36415; 80048; 85025; 86140; 96374; 96375; 99284

== ENCOUNTER 2023-11-30 06:36 | Outpatient (OUT) | payer OTHER, SELFPAY ==
[2023-11-30 07:01] LABS: Basophils Percent Auto 0.5 % (0.2-2.0); Eosinophils Absolute Auto 0.1 10^3/uL (0.0-0.7); Eosinophils Percent Auto 2.3 % (0.9-7.0); Hematocrit 43.2 % (36.0-48.0); Hemoglobin 13.9 g/dL (12.0-16.0); Immature Granulocytes Abs Auto 0.01 10^3/uL (0.00-0.03); Immature Granulocytes Pct Auto 0.2 % (0.0-0.5); Lymphocytes Absolute Auto 2.6 10^3/uL (1.2-3.8); Lymphocytes Percent Auto 44.6 % (20.5-60.0); Mean Corpuscular HGB Conc 32.2 g/dL (29.9-35.2); Mean Corpuscular Hemoglobin 28.9 pg (26.7-34.0); Mean Corpuscular Volume 89.8 fL (81.0-99.0); Mean Platelet Volume 9.4 fL (9.5-13.5); Monocytes Absolute Auto 0.4 10^3/uL (0.3-0.8); Monocytes Percent Auto 6.3 % (1.7-12.0); Neutrophils Absolute Auto 2.7 10^3/uL (1.4-6.5); Neutrophils Percent Auto 46.1 % (43.0-75.0); Platelet Count 255 10^3/uL (150-450); Red Blood Count 4.81 10^6/uL (4.20-5.40); Red Cell Distribution Width 13.2 % (11.0-15.0); White Blood Count 5.8 10^3/uL (4.0-11.0)
[2023-11-30 08:14] LABS: Estimated Average Glucose 97 mg/dL
[2023-11-30 11:18] LABS: Alanine Aminotransferase 19 U/L (14-59); Albumin Globulin Ratio 1.1; Albumin Level 3.8 g/dL (3.4-5.0); Alkaline Phosphatase 73 U/L (46-116); Anion Gap 12.7; Aspartate Amino Transferase 11 U/L (15-37); BUN Creatinine Ratio 15.3; Bilirubin Total 0.4 mg/dL (0.2-1.0); Calcium 9.2 mg/dL (8.5-10.1); Carbon Dioxide 27.3 mmol/L (21.0-32.0); Chloride 105 mmol/L (98-107); Chol HDL Ratio 3.6; Cholesterol 197 mg/dL (<=200); Estimated GFR (African America >60 (>=60); Estimated GFR (Non-African Ame >60 (>=60); Free T3 2.47 pg/mL (2.18-3.98); Globulin 3.4 g/dL; Glucose 84 mg/dL (74-106); HDL Cholesterol 54 mg/dL (40-60); Sodium 141 mmol/L (136-145); Thyroid Stimulating Hormone 1.242 uIU/mL (0.358-3.740); Total Protein 7.2 g/dL (6.4-8.2); Triglycerides 259 mg/dL (<=150); VLDL CHOLESTEROL 51.8 mg/dL
[2023-12-01 05:09] LABS: Insulin 8.1 uIU/mL (2.6-24.9)
[2023-12-02 17:07] LABS: Cortisol - AM 18.2 ug/dL (6.2-19.4)
== END 2023-11-30 06:37 | disposition home or self-care (01) ==
LOC: LAB 06:36
PROVIDERS: PCP Family Medicine; Visit Provider Family Medicine
DX: Z00.00 Encounter for general adult medical examination without abnormal findings (principal)
CPT/HCPCS: 36415; 80053; 80061; 82306; 82533; 83036; 83525; 83540; 84436; 84443; 84481; 85025

== ENCOUNTER 2024-01-22 08:37 | Emergency (ER) | payer OTHER, SELFPAY ==
[2024-01-22 08:40] VITALS: BP 133/79; PULSE 75; TEMP 36.5; O2SAT 100; BMI 27.4
--- NOTE | 2024-01-22 08:55 | ED_ITS ---
HPI HPI - Neck Pain/Injury General Chief Complaint: Neck Pain/Injury Stated Complaint: NECK PAIN Time Seen by Provider: 01/22/24 08:45 Source: patient Mode of arrival: walk-in Limitations: no limitations History of Present Illness HPI Narrative: The patient is coming to the ER with a chronic neck pain she mentioned that she been dealing with this for years, she mentioned that there is no exacerbating factors but she just ran out of her medication she usually takes Vicodin and Valium and she could not get to her primary care to get those medication, patient denies any triggering factor for the pain to get worse she is denying any numbness tingling down her arm there is no alarming symptoms of weakness or any other complaint When I presented to evaluate the patient she mentioned that she took Valium and Vicodin at 2 AM for her pain control Related Data Home Medications ?Medication ?Instructions ?Recorded ?Confirmed cetirizine 10 mg tablet (Allergy 10 mg PO DAILY 03/21/23 01/22/24 Relief (cetirizine)) diazepam 10 mg tablet 10 mg PO DAILY PRN muscle spasm 03/21/23 01/22/24 hydrocodone 5 mg-acetaminophen 325 0.5 tab PO DAILY PRN pain 03/21/23 01/22/24 mg tablet onabotulinumtoxinA 200 unit 300 unit IM .every 3 months 03/21/23 01/22/24 solution for injection (Botox) pramipexole 1 mg tablet (Mirapex) 1 mg PO DAILY 03/21/23 01/22/24 minocycline 50 mg capsule 50 mg PO DAILY 01/22/24 01/22/24 Previous Rx's ?Medication ?Instructions ?Recorded hydrocodone 5 mg-acetaminophen 325 1 tab PO DAILY PRN pain #14 tabs 03/21/23 mg tablet cyclobenzaprine 5 mg tablet 5 mg PO TID PRN muscle spasm #10 01/22/24 tabs diclofenac sodium 75 mg 75 mg PO BID PRN pain #14 tabs 01/22/24 tablet,delayed release Allergies Allergy/AdvReac Type Severity Reaction Status Date / Time calcium [From DHEA] Allergy Severe Difficulty Verified 05/13/23 05:16 Breathing calcium carbonate [From DHEA] Allergy Severe Difficulty Verified 05/13/23 05:16 Breathing prasterone (DHEA) [From DHEA] Allergy Severe Difficulty Verified 05/13/23 05:16 Breathing caffeine Allergy Mild Vomiting Verified 05/13/23 05:16 Opioid HPI Opioid Management Most Recent Opioid Data: Last Pain Scale 9 01/22/24 09:06 Last MAR Pain Assessment 01/22/24 09:06 Review of Systems ROS Status of ROS 10 or more systems reviewed and unremark able except as noted in history and below [facility] Social History Smoking status: Never smoker Exam Narrative Exam Narrative: Nurses notes and vital signs reviewed and patient is not hypoxic. General: Well-appearing and in no apparent distress. Skin: Warm, dry, no pallor noted. No rash. Head: Normocephalic, atraumatic. Neck: Supple, right-sided paraspinal muscle tenderness no intervertebral line tenderness Eye: Pupils are equal, round and EOMI. No scleral icterus. Ears, Nose, Mouth, and Throat: TM are clear, no nasal mucosal hypertrophy. Oral mucosa is moist, no posterior oropharynx erythema, uvula is mid-line Cardiovascular: Regular Rate and Rhythm without murmur, gallop or rub. Respiratory: No accessory muscle use or respiratory distress. Lungs are clear to auscultation, no wheezing, rales or rhonchi Chest Wall: no tenderness Back: No midline thoracic or lumbar vertebral tenderness. No CVA tenderness Musculoskeletal: normal ROM, no calf or popliteal tenderness, no lower extremity edema/swelling GI: Abdomen is soft, non-distended. Normal bowel sounds. No masses appreciated. No tenderness to palpation. No rebound, guarding, or rigidity noted. Neurological: A&O x4. No cranial nerve dysfunction observed. No truncal ataxia. Moves all extremities. Sensation intact. Psychiatric: Cooperative and interactive. Normal mood and affect. Constitutional Vital Signs, click to edit/add: Last Vital Signs Temp 97.7 F 01/22/24 08:40 Pulse 75 01/22/24 08:40 Resp 18 01/22/24 08:40 BP 133/79 01/22/24 08:40 Pulse Ox 100 01/22/24 08:40 O2 Del Method Room Air 01/22/24 08:40 Course Vital Signs Vital signs: Vital Signs Temperature 97.7 F 01/22/24 08:40 Pulse Rate 75 01/22/24 08:40 Respiratory Rate 18 01/22/24 08:40 Blood Pressure 133/79 01/22/24 08:40 Pulse Oximetry 100 01/22/24 08:40 Oxygen Delivery Method Room Air 01/22/24 08:40 Temperature 97.7 F 01/22/24 08:40 Pulse Rate 75 01/22/24 08:40 Respiratory Rate 18 01/22/24 08:40 Blood Pressure 133/79 01/22/24 08:40 Pulse Oximetry 100 01/22/24 08:40 Oxygen Delivery Method Room Air 01/22/24 08:40 MDM - Neck Pain/Injury MDM Narrative Medical decision making narrative: The patient presenting to us for refill of her Vicodin and Percocet that she usually chronically take Right now I did not see that the patient is taking a new medication recently her last prescription was in October The patient will be treated in the ER with Toradol as well as Flexeril p.o. and was discharged home with Voltaren and Flexeril I did explain to the patient right now that she would need anti-inflammatory for the pain and follow-up with her pain management Due to the fact that she chronically according to her history using those medication I did advise her to follow-up with her primary care that she is going to follow-up after she gets discharged from here to get her medication refilled The patient is to follow up with primary care physician in next 2-3 days or to return to the emergency department should any of the signs or symptoms worsen or new symptoms develop. The patient agrees with the following Diagnosis and Treatment plan and the patient will be discharged home. Discharge Plan Discharge Stand Alone Forms: Work/School Release, Portal Instructions Chief Complaint: Neck Pain/Injury Clinical Impression: Neck pain Patient Disposition: Home, Self-Care Time of Disposition Decision: 08:55 Condition: Good Prescriptions / Home Meds: New cyclobenzaprine 5 mg tablet 5 mg PO TID PRN (Reason: muscle spasm) Qty: 10 0RF diclofenac sodium 75 mg tablet,delayed release (DR/EC) 75 mg PO BID PRN (Reason: pain) Qty: 14 0RF Discontinued cyclobenzaprine 5 mg tablet 5 mg PO BEDTIME No Action cetirizine [Allergy Relief (cetirizine)] 10 mg tablet 10 mg PO DAILY diazepam 10 mg tablet 10 mg PO DAILY PRN (Reason: muscle spasm) hydrocodone-acetaminophen 5-325 mg tablet 0.5 tab PO DAILY PRN (Reason: pain) Rx Instructions: 1/2 tab as needed, qty 14 pills to last for 3 months Botox 200 unit recon soln 300 unit IM .every 3 months pramipexole [Mirapex] 1 mg tablet 1 mg PO DAILY hydrocodone-acetaminophen 5-325 mg tablet 1 tab PO DAILY PRN (Reason: pain) Qty: 14 0RF minocycline 50 mg capsule 50 mg PO DAILY Print Language: Algerian Instructions: Chronic Neck Pain (DC) Referrals: Danny Obrien MD [Primary Care Provider] - 1 week
[2024-01-22] MEDS: ONDANSETRON 4 MG RAPDIS TABLET SL (09:05)
[2024-01-22] MEDS: CYCLOBENZAPRINE HCL 10 MG TABLET PO (09:05)
[2024-01-22] MEDS: KETOROLAC TROMETHAMINE 30 MG/ML VIAL IM (09:06)
[2024-01-22 09:13] VITALS: PULSE 87; O2SAT 99
== END 2024-01-22 09:14 | disposition home or self-care (01) ==
LOC: ER 09:03
PROVIDERS: Emergency Provider Emergency Medicine; PCP Family Medicine
DX: M54.2 Cervicalgia (principal)
CPT/HCPCS: 96372; 99284; J1885; Q0162

== ENCOUNTER 2024-01-30 07:40 | Outpatient (OUT) | payer OTHER, SELFPAY ==
--- OUTSIDE RECORDS SUMMARY | 2024-01-30 07:44 | XMS_ITS | CCD ---
Author Organization [facility] CliniSyla Care Team Providers Care Recycle Coordinator Name Role Phone MD Filiberto Ying Primary Care Provider [phone] PURVI Sheehan Attending Provider [phone]EP[address] ., DR DE LOS SANTOS Primary [...] COLLAZO ., DR CHARISMA Mckoy Attending Unavailable Hoy, Filibetro M Unavailable Unavailable Unavailable MD Filiberto Ying Primary Care Provider [phone] DO Dano Pyle Attending Provider [phone] DO Roseanne Casetllanos Attending Provider MD Romero Jones Referring Provider Fauzia, Dr. Soraya Mojica Attending Unavailab le Fauzia, Dr. Soraya Mojica Referring Unavailab le Stepan, Dr. Filiberto Fuller Primary Care Unavail able Unavailable Unavailable Filiberto Ying MD Primary Care Provider Kenna Sheehan PA-C Unavailable Tal DIALLO, Dr. Saeed Jean-Baptiste Attending Unavailable Stepan, Dr. Filiberto Fuller Primary Care Unavail able Emanuel, Dr. Saeed Stahl Referring Unava ilneris Castellanos, Dr. Saeed Stahl Attending Unava ilable Stepan, Dr. Filiberto Fuller Primary Care Unavail able Emanuel, Dr. Saeed Stahl Referring Unava ilable Emanuel, Dr. Saeed Stahl Referring Unava ilable Stepan, Dr. Filiberto Fuller Primary Care Unavail able Emanuel, Dr. Saeed Stahl Attending Unava ilSoraya Mcnair Attending Unavailable Soraya Arcos Referring Unavailable Stepan, Dr. Filiberto Fuller Primary Care Unavail able Romero Jones Attending Unavailable Stepan, Dr. Filiberto Fuller Primary Care Unavail able Emanuel, Dr. Saeed Stahl Referring Unava ilneris Ying, Dr. Filiberto Fuller Primary Care Unavail able Emanuel, Dr. Saeed Stahl Attending Unava ilable Emanuel, Dr. Saeed Stahl Attending Unava ilable Stepan, Dr. Filiberto Fuller Primary Care Unavail able Emanuel, Dr. Saeed Stahl Referring Unava MD Filiberto Biggs Primary Care Provider LONNY Boregs Attending Provider MD Filiberto Ying Primary Care Provider LONNY Borges Attending Provider DO Dano Pyle Attending Provider [phone] MD Filiberto Ying Primary Care Provider [phone] DANO PYLE H Attending Unavailable HOY, FILIBERTO M Referring Unavailable VALERIO SANZ Attending Unavailable Filiberto Ying MD Primary Care Provider [phone] HARMAN SULLIVAN Attending Unavailable WEISSWANG, HARMAN Referring Unavailable HOY, FILIBERTO M Primary Care Unavailable HARMAN SULLIVAN Attending Unavailable JONYMARIA DEL CARMEN Referring Unavailable HOY, FILIBERTO M Primary Care Unavailable MARIA DEL CARMEN BORGES Attending Unavailable HOY, FILIBERTO M Primary Care Unavailable MARIA DEL CARMEN BORGES Attending Unavailable HOY, FILIBERTO M Primary Care Unavailable MD Filiberto Ying Primary Care Provider [phone] DO Dano Pyle Attending Provider [phone] Maria Del Carmen Borges P Attending Unavailable Maria Del Carmen Borges P Admitting Unavailable Hoy, Filiberto M Primary Care Unavailable Itzkowitz, Dano Admitting Unavailable Itzkojonel, Dano Attending Unavailable Hoy, Filiberto M Primary Care Unavailable Itzkowitz, Dano Attending Unavailable Itzkowitz, Dano Admitting Unavailable Hoy, Filiberto M Primary Care Unavailable Itzkowitz, Dano Attending Unavailable Itzkowitz, Dano Admitting Unavailable Hoy, Filiberto M Primary Care Unavailable Itzkojonel, Dano Attending Unavailable Itzkowitz, Dano Admitting Unavailable Hoy, Filiberto M Primary Care Unavailable Allergies Allergy Classification Reported Allergen(s) Allergy Type Date of Onset Reaction(s) Facility (20 sources) Caffeine; Translations: [Caffeine] Drug Allergy 3 [facility] (20 sources) DHE; Translations: [Dhe] Allergy to substance 3 Shortness of Breath [facility] (20 sources) Adhesive agent; Translations: [ADHESIVE] Propensity to adverse reactions to drug 3 Other: See Asa, Yamilet [facility] (15 sources) Adhesive Tape Allergy to substance (finding) 3 [facility] (9 sources) prasterone; Translations: [DHEA CAPS] Drug Allergy -[facility] [place] 250 DO Work Phone: (14 sources) Metoprolol; Translations: [METOPROLOL] Drug Allergy 3 Swelling [facility] (2 sources) Metoclopramide Drug Allergy 3 Worsens restless leg [facility] Medications Current Medications Medication Drug Class(es) Dates Sig (Normalized) Sig (Original) acetaminophen 300 mg / codeine phosphate 30 mg oral tablet (2 sources) Opioid Agonist Start: 05-15-2023 take 1 tablet by mouth every six hours Acetaminophen-Cod eine Active 1 TAB PO Q6H 20 May 15, 2023 1:00am acetaminophen 325 mg / HYDROcodone bitartrate 5 mg oral tablet (20 sources) Opioid Agonist Start: 05-01-2023 take 1 tablet by mouth once daily Hydrocodone-Aceta minophen Active 1 TAB PO Daily May 01, 2023 1:00am Start: 06-29-2022 HYDROcodone-ac etaminophen (NORCO) 5-325 mg per tablet as needed. 0 06/29/2022 Active Start: 10-22-2019 End: 12-24-2020 take 1 tablet by mouth every six hours Hydrocodone-Acetaminophen Discontinued 1 TAB PO Q6H 10 2 August 16, 2020 December 24, 2020 12:15pm Start: 10-14-2019 End: 12-24-2020 take 1 tablet by mouth every eight hours Hydrocodone-Acetaminophen ([place]) 5-325 mg tablet Discontinued 1 TAB PO Q8H 10 October 14, 2019 December 24, 2020 12:15pm Comment on above: as needed. baclofen 10 mg oral tablet (20 sources) gamma-Aminobutyric Acid-ergic Agonist Start: 10-18-2023 End: 10-18-2023 take 1 tablet by mouth once daily as needed baclofen 10 mg tablet Take 1 tablet by mouth once daily as needed. 30 tablet 0 10/18/2023 Active Start: 06-28-2022 End: 01-19-2023 take 1 tablet by mouth every eight hours as needed baclofen (LIORESAL) 10 mg tablet Take 10 mg by mouth every 8 hours as needed. 10 in AM, 20 in PM 0 06/28/2022 01/19/2023 Discontinued Comment on above: Take 10 mg by mouth every 8 hours as needed. 10 in AM, 20 in PM cyclobenzaprine hydrochloride 5 mg oral tablet (20 sources) Muscle Relaxant Start: 01-20-20 End: 09-15-19 take 1 tablet by mouth every twenty-four hours as needed cyclobenzaprine (FLEXERIL) 5 mg tablet Take 1 tablet by mouth at bedtime as needed. 30 tablet 1 09/17/2023 Active Start: 10-14-2019 End: 05-01-2023 take 10 mg by mouth once daily Cyclobenzaprine Discont inued 10 MG PO Daily October 14, 2019 12:00am May 01, 2023 12:55pm Start: 10-14-2019 End: 05-01-2023 take 20 mg by mouth once daily at bedtime Cyclobenzaprine Discontinued 20 MG PO Daily at bedtime October 14, 2019 12:00am May 01, 2023 12:55pm Comment on above: Take 1 tablet by klever th at bedtime as needed. diazePAM 10 mg oral tablet (20 sources) Benzodiazepine Start: 06-13-19 take 10 mg by mouth twice daily Diazepam Active 10 MG PO Twice daily May 01, 2023 1:00am Comment on above: Take 10 mg by mouth twice daily as needed. gabapentin 600 mg oral tablet (9 sources) Anti-epileptic Agent Start: 09-21-19 End: 03-19-20 take 1 tablet by mouth once daily at bedtime gabapentin (NEURONTIN) 600 mg tablet Indications: RLS (restless legs syndrome) Take 1 tablet by mouth daily at bedtime for 180 days. 30 tablet 5 09/21/2023 03/19/2024 Active ondansetron 4 mg disintegrating oral tablet (17 sources) Serotonin-3 Receptor Antagonist Start: 05-15-20 take 4 mg by mouth every six hours Ondansetron Active 4 MG PO Q6H May 15, 2023 1:00am Start: 12-24-2020 take 1 tablet by klever th every six hours Ondansetron Hcl (Zofran) 4 mg tablet Active 4 MG PO Q6H December 24, 2020 12:00am Start: 10-14-2019 End: 05-01-2023 take 4 mg by mouth three times daily Ondansetron Discontinued 4 MG PO Three times daily 7 2 October 14, 2019 12:00am May 01, 2023 12:55pm Start: 06-13-2012 End: 07-28-2022 ondansetron, PF, 4 [...] tablet (20 sources) Nonergot Dopamine Agonist Start: 06-28-19 take 1 mg by mouth once daily at bedtime Pramipexole Active 1 MG PO Daily at bedtime May 01, 2023 1:00am Start: 06-28-2022 take 2 tablets by mo uth once daily at bedtime pramipexole (MIRAPEX) 1 mg tablet Take 2 mg by mouth daily at bedtime. 0 06/28/2022 Active Start: 10-14-2019 End: 05-01-2023 take 1 tablet by mouth once daily at bedtime Pramipexole (Mirapex) 0.5 mg tablet Discontinued 0.5 MG PO Daily at bedtime October 14, 2019 12:00am May 01, 2023 12:53pm Comment on above: Take 1 mg by mouth o nce daily. 24 hr topiramate 100 mg extended release oral capsule (7 sources) Start: 10-14-2019 take 300 mg by mouth once daily Topiramate Active 300 MG PO Daily October 13, 2019 11:00pm Start: 10-14-2019 End: 05-01-2023 take 300 mg by mouth once daily Topiramate Discontinued 300 MG PO Daily October 14, 2019 12:00am May 01, 2023 12:56pm Completed/Discontinued Medications Medication Drug Class(es) Dates Sig (Normalized) Sig (Original) onabotulinumtoxina 100 unt injection (2 sources) Acetylcholine Release Inhibitor Start: 10-31-2023 End: 10-31-2023 onabotulinum toxin type A 200 Units injection (BOTOX) Start: 10-31-2023 End: 10-31-2023 onabotulinum toxin type A 20 0 Units injection (BOTOX) cetirizine hydrochloride 10 mg oral tablet (20 sources) Histamine-1 Receptor Antagonist Start: 10-14-2019 End: 05-01-2023 take 10 mg by mouth once daily Cetirizine Discontinued 10 MG PO Daily October 14, 2019 12:00am May 01, 2023 12:54pm Comment on above: 10 mg once daily. sugar-free cholestyramine resin 4000 mg powder for oral suspension (7 sources) Bile Acid Sequestrant Start: 12-24-2020 End: 05-01-2023 take 1 dose by mouth once Cholestyramine-Aspa rtame (Questran Light) 4 gram powder Discontinued 4 GM PO before meals and at bedtime December 24, 2020 12:00am May 01, 2023 12:55pm no meds 1 hr before/4-6 hr after [...] daily. diclofenac sodium 0.01 mg/mg topical gel (12 sources) Nonsteroidal Anti-inflammatory Drug Start: 06-29-2022 End: 09-21-2023 diclofenac (VOLTAREN) 1 % topical gel as needed. 0 06/29/2022 09/21/2023 Discontinued Comment on above: as needed. doxepin hydrochloride 10 mg oral capsule (7 sources) Tricyclic Antidepressant Start: 10-14-2019 End: 12-24-2020 take 20 mg by mouth once daily at bedtime Doxepin Discontinued 20 MG PO Daily at bedtime October 14, 2019 12:00am December 24, 2020 12:23pm L Norgest/E.Estradiol- E.Estrad (7 sources) Progestin, Estrogen, Progestin-containin g Intrauterine Device Start: 10-14-2019 End: 05-01-2023 take 1 tablet by mouth once daily L Norgest/E.Estradiol -E.Estrad Discontinued 1 TAB PO Daily October 14, 2019 12:00am May 01, 2023 12:55pm Start: 10-14-2019 End: 05-01-2023 take 1 tablet by mouth once daily L Norgest/E.Estradiol-E.Estrad Discontin ued 1 TAB PO Daily October 13, 2019 11:00pm May 01, 2023 11:55am Start: 10-14-2019 take 1 tablet by klever th once daily L Norgest/E.Estradiol-E.Estrad Active 1 TAB PO Daily October 13, 2019 11:00pm Start: 10-14-2019 take 1 tablet by klever th once daily L Norgest/E.Estradiol-E.Estrad Active 1 TAB PO Daily October 14, 2019 12:00am ezetimibe 10 mg oral tablet (20 sources) Dietary Cholesterol Absorption Inhibitor Start: 07-27-2022 End: 09-21-2023 ezetimibe (ZETIA) 10 mg tablet 10 mg once daily. 0 07/27/2022 09/21/2023 Discontinued Comment on above: 10 mg once daily. ferrous sulfate 325 mg oral tablet (20 sources) Start: 07-13-2022 End: 09-21-2023 ferrous sulfate 325 mg (65 mg iron) tablet once daily. 0 07/13/2022 09/21/2023 Discontinued Comment on above: once daily. fludrocortisone acetate 0.1 mg oral tablet (1 source) Start: 11-14-2022 take 1 tablet by mouth once daily Fludrocortisone Acetate 0.1 MG Oral Tablet Take 1 tablet daily Quantity: 90 Refills: 3 Ordered: 14-Nov-2022 Soraya Arcos MD Start : 14-Nov-2022 Active 1.5 ml fremanezumab-vfrm 150 mg/ml prefilled syringe (7 sources) Start: 10-14-2019 End: 05-01-2023 inject 1 mL by subcutaneous injection every month Fremanezumab-Vfrm Discontinued 1.5 ML SUBCUT every month October 14, 2019 12:00am May 01, 2023 12:54pm hyoscyamine sulfate 0.125 mg sublingual tablet (7 sources) Start: 10-14-2019 End: 12-24-2020 take 1 tablet by mouth four times daily Hyoscyamine Sulfate Discontinued 1 - 2 TAB PO Four times daily October 14, 2019 12:00am December 24, 2020 12:24pm Magnesium (4 sources) End: 01-12-2023 Magnesium 250 [...] succinate 25 mg extended release oral tablet (10 sources) beta-Adrenergic Jessie Start: 023 End: take 1 tablet by mouth every hour metoprolol succinate ER (TOPROL XL) 25 mg 24 hr tablet Take 1 tablet by mouth every afternoon. 0 12/03/2022 09/21/2023 Discontinued Start: 11-14-2022 take 1 tablet by klever th once daily Metoprolol Succinate ER 25 MG Oral Tablet Extended Release 24 Hour TAKE 1 TABLET DAILY. Quantity: 90 Refills: 3 Ordered: 14-Nov-2022 Soraya Arcos MD Start : 14-Nov-2022 Active Comment on above: Take 1 tablet by klever th every afternoon. minocycline 50 mg oral capsule (20 sources) Tetracycline-class Drug Start: 0 End: 3 take 50 mg by mouth once daily Minocycline Discontinued 50 MG PO Daily October 14, 2019 12:00am May 01, 2023 12:55pm take 1 tablet by mouth once ute y Minocycline HCl 100 mg tablet Take 100 mg by mouth once daily. 0 Active Comment on above: Take 100 mg by mouth once daily. pantoprazole 40 mg delayed release oral tablet (7 sources) Proton Pump Inhibitor Start: 10-14-19 End: 05-01-20 take 40 mg by mouth once daily Pantoprazole Discontinued 40 MG PO Daily October 14, 2019 12:00am May 01, 2023 12:55pm phentermine hydrochloride 37.5 mg oral tablet (9 sources) Sympathomimetic Amine Anorectic Start: 01-06-20 End: 09-21-19 24 take 1 tablet by mouth once daily Phentermine HCl 37.5 mg tablet Take 37.5 mg by mouth once daily. 0 01/05/2023 09/21/2023 Discontinued Comment on above: Take 37.5 mg by mout h once daily. Ffpashir-Ju-Bqs-Fe-FA (P-D PLUS) Tab (2 sources) End: 08-02-19 take 1 tablet by mouth once daily Hvbnladz-Uj-Kcw-Fe- FA (P-D CARTER PLUS) Tab Take 1 tablet by mouth once daily. 0 08/01/2022 Discontinued (Course of therapy completed) take 1 tablet by mouth once ute y Jzkwwldq-Mf-Idz-Fe-FA (P-D CARTER PLUS) Tab Take 1 tablet by mouth once daily. 0 Active Comment on above: Take 1 tablet by klever th once daily. promethazine hydrochloride 25 mg oral tablet (14 sources) Phenothiazine Start: 09-28-19 End: 12-25-19 take 25 mg by mouth every six hours Promethazine Discontinued 25 MG PO Q6H September 27, 2020 12:00am December 24, 2020 12:24pm Start: 09-27-2020 End: 12-24-2020 take 25 mg by mouth four times daily Promethazine Discontinued 25 MG PO Four times daily September 27, 2020 12:00am December 24, 2020 12:15pm propranolol hydrochloride 10 mg oral tablet (8 sources) beta-Adrenergic Jessie Start: 10-14-2019 End: 05-01-2023 take 20 mg by mouth twice daily Propranolol Discontinued 20 MG PO Twice daily October 14, 2019 12:00am May 01, 2023 12:55pm Start: 06-25-2012 End: 07-28-2022 take 1 tablet by mouth three times daily propranolol 10 mg tablet Take 1 tablet by mouth three times daily. 90 tablet 11 06/25/2012 07/28/2022 Discontinued (Course of therapy completed) Comment on above: Take 1 tablet by klever th three times daily. simvastatin 40 mg oral tablet (20 sources) HMG-CoA Reductase Inhibitor End: 09-21-2023 simvastatin (ZOCOR) 40 mg tablet 40 mg once daily. 0 09/21/2023 Discontinued Comment on above: 40 mg once daily. [...] Problem Date Documented Date Episodic/Chronic Abdominal pain (7 sources) Abdominal pain; Translations: [Unspecified abdominal pain] 09-27-2020 Episodic Administrative/social admission (4 sources) Patient encounter status; Translations: [Other reasons for seeking consultation] Episodic Biliary tract disease (7 sources) Biliary calculus; Translations: [Calculus of gallbladder without cholecystitis without obstruction] 10-14-2019 Episodic Cardiac dysrhythmias (2 sources) Tachycardia, unspecified; Translations: [Sinus tachycardia] Onset: 12-28-2022 Episodic Disorders of lipid metabolism (9 sources) Hyperlipidemia; Translations: [Other and unspecified hyperlipidemia] Chronic Headache; including migraine (3 sources) Migraine, unspecified, not intractable, without status migrainosus; Translations: [Refractory migraine without aura] Onset: 04-10-2022 09-21-2023 Chronic Headache; including migraine (11 sources) Headache; Translations: [Headache] Onset: 04-06-2022 09-27-2020 Episodic Headache; including migraine (1 source) Headache; including migraine; Translations: [HEADACHE UNSPECIFIED] Onset: 07-10-2022 Nonmalignant breast conditions (12 sources) Breast lump; Translations: [Unspecified lump in the left breast, unspecified quadrant] Onset: 05-15-2023 04-05-2023 Episodic Other circulatory disease (7 sources) Elevated blood-pressure reading without diagnosis of hypertension; Translations: [Elevated blood-pressure reading, without diagnosis of hypertension] 09-27-2020 Episodic Other connective tissue disease (7 sources) Spasm of cervical paraspinous muscle; Translations: [Other muscle spasm] 08-16-2020 Episodic Other connective tissue disease (1 source) Fibromyalgia; Translations: [Fibromyalgia] Episodic Other connective tissue disease (1 source) Problem of neck; Translations: [Other symptoms and signs involving the musculoskeletal system] 01-12-2023 Episodic Other hereditary and degenerative nervous system conditions (2 sources) Spasmodic torticollis; 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 TORTICOLLIS] Onset: 04-10-2022 Chronic Other hereditary and degenerative nervous system conditions (3 sources) Isolated cervical dystonia; Translations: [Spasmodic torticollis] 01-12-2023 Chronic Other hereditary and degenerative nervous system conditions (2 sources) Restless legs; Translations: [Restless legs syndrome] 01-12-2023 Chronic Other lower respiratory disease (9 sources) Difficulty breathing; Translations: [Other respiratory abnormalities] Episodic Other nervous system disorders (5 sources) Other specified mononeuropathies; Translations: [OTHER SPECIFIED MONONEUROPATHIES] Onset: 02-16-2022 Chronic Other nutritional; endocrine; and metabolic disorders (8 sources) Obesity; Translations: [Obesity, unspecified] Chronic Other nutritional; endocrine; and metabolic disorders (1 source) Overweight in adulthood with body mass index of 25 or more but less than 30; Translations: [Overweight] Episodic Spondylosis; intervertebral disc disorders; other back problems (11 sources) Chronic neck pain; Translations: [Cervicalgia] Onset: 02-20-2022 Episodic Syncope (19 sources) Syncope; Translations: [Syncope and collapse] Onset: 12-28-2022 Episodic Unclassified (1 source) Unspecified lump in the right breast, unspecified quadrant; Translations: [Unspecified lump in the right breast, unspecified quadrant] Onset: 05-15-2023 Unclassified (1 source) Unspecified lump in the left breast, unspecified quadrant; Translations: [Unspecified lump in the left breast, unspecified quadrant] Onset: 04-05-2023 Past or Other Problems Problem Classification Problem Date Documented Date Episodic/Chronic Immunizations and screening for infectious disease (1 source) Encounter for screening for human papillomavirus (HPV); Translations: [ENC SCREENING HUMAN PAPILLOMAVIRUS] Onset: 01-10-2022 Episodic Other connective tissue disease (1 source) Other muscle spasm; Translations: [OTHER MUSCLE SPASM] Onset: 04-10-2022 Episodic Other screening for suspected conditions (not mental disorders or infectious disease) (4 sources) Encounter for screening for malignant neoplasm of cervix; Translations: [ENC SCREENING MALIG NEOPLASM CERV] Onset: 01-09-2022 Episodic Unclassified (9 sources) Never smoked tobacco; Translations: [Never a smoker] Results Test Name Value Interpretation Reference Range Facility US breast RT limitedon 01-27 US breast RT limited [facility] [place] [address] Ultrasound Report Signed Patient: Brittanie Garcia MR#: [id number] : 1985 Acct:[id number] Age/Sex: 39 / F ADM Date: 01/28/24 Loc: [facility] Room: Type: [facility] Attending Dr: Dano Pyle DO Ordering Provider: Dano Pyle DO Date of Service: 01/28/24 US/US breast RT limited: upper outer and lower inner quadrant masses Copies to: Dano Pyle DO LIMITED RIGHT BREAST ULTRASOUND CLINICAL DATA: Palpable lumps. History of multiple fibroadenomas. COMPARISON: 04/05/2023 Real-time ultrasound evaluation at the inferior lateral breast was performed. At the 7:00 position, 6 to 7 cm from the nipple there is redemonstration of a hypoechoic nodular area measuring 8 18 x 10 x 19 mm, unchanged from the comparison and likely a fibroadenoma. At the 9:00 position, 7 cm from the nipple, there is another hypoechoic nodular area with smooth margination measuring 21 x 9 x 16 mm. Deep to it is a third hypoechoic nodular area measuring 8 x 4 x 6 mm . Additional fibroadenomas are suspected. US/US breast RT limited IMPRESSION: MULTIPLE HYPOECHOIC NODULAR AREAS WITH APPEARANCE OF FIBROADENOMAS. SINCE THE AREAS AT 9:00 WERE NOT IMAGED PREVIOUSLY, FOLLOW-UP ULTRASOUND IN 6 MONTHS COULD BE CONSIDERED TO ASSURE STABILITY. Impression dictated by: Binta Elaine M.D.01/28/2024 8:30 AM Dictation Location: [facility] Tech: Alayna Choudhary Transcribed By: JADEN 01/28/24829 Dictated By: Binta Elaine MD 01/28/24811 Signed By: 01/28/24829 Normal [facility] CNOVon 10-31-2023 CNOV Office Visit ([facility] ) BRITTANIE GARCIA ([id number]) 1985 F Date Time Provider Department 10/31/23 10:30 AM HARMAN SULLIVAN [facility] During your visit today, we recorded the following information about you: Pulse Blood pressure Weight Height 84/minute 109/70 69 kg 1.575 m Harman Sullivan MD 10/31/2023 5:16 PM Signed BOTOX PREEMPT PROTOCOL Total headache days per month: daily Severity of headaches: Mild, Moderate, and Severe Botox effective: YES The risks, benefits and anticipated outcomes of the procedure, the risks and benefits of the alternatives to the procedure, and the roles and tasks of the personnel to be involved, were discussed with the patient. The patient has given written informed consent to the procedure and agrees to proceed.Yes Treatment # 1 with me, 10+ in past BOTOX brought in by patient? No Lot #:[id number] Exp: 10/2025 Dilution: 5 units/0.1 ml (100 unit vial with 2 cc diluent or 200 unit vial with 4 cc diluent) Diluent: normal saline Indication: chronic intractable migraine UNIVERSAL PROTOCOL / SAFETY CHECKLIST Procedure to be Performed: Botox PREEMPT protocol for migraine Sign In: A Moment of CARE was completed. Personnel directly involved with the procedure wore the appropriate PPE (Personal Protective Equipment). Patient/Surrogate Stated/Verified: PATIENT VERIFIED(optional for EMERGENT procedures): Patient name, Date of , Relevant allergies, and The intended procedure Time Out Communication: Intended patient and procedure match the source documents. Consent documented and matches the intended procedure. Sign Out: SIGN OUT (optional for EMERGENT procedures): No specimen collected. Harman Sullivan MD Injection Sites Muscle Fixed Site/Fixed Dose Optional follow pain # units L R Jinriksha Driver 10 units divided in 2 sites XXXXXXX Procerus 5 units in 1 site XXXXXXX Frontalis 20 units divided in 4 sites XXXXXXX Temporalis 40 units divided in 8 sites Occipitalis 30 units divided in 6 sites Cervical PSPs 20 units divided in 4 sites XXXXXXX Trapezius 40 units left 35 units over 3 sites each Total 200 units Total Units used: 200 Total Units wasted: 0 Patient did tolerate procedure. Change in Treatment Plan? No Harman Sullivan MD Referring Provider: HARMAN SULLIVAN [[id number]] Allergies As of Date: 10/31/2023 Noted Allergy Reaction DHE 06/13/2012 12 - Shortness of Breath ADHESIVE 07/28/2022 2 - Rash 14 - Other: See Comments Comments: Rash and blisters CAFFEINE 06/13/2012 11 - Vomiting METOPROLOL 05/01/2023 7 - Swelling Date Reviewed: 09/21/2023 Reviewed by: Manolo Luther MA - Fully Assessed Reason for Visit: Botox Injection [373] Primary Visit Diagnosis:Chronic migraine without aura, with intractable migraine, so stated, with status migrainosus [G43.711] Other Visit Diagnosis:Neck pain [M54.2] Order(s):[] onabotulinum toxin type A 200 Units injection (BOTOX)Disp: Rfl: Prescriptions as of 10/31/2023 - baclofen 10 mg tablet Take 1 tablet by mouth once daily as needed. - gabapentin (NEURONTIN) 600 mg tablet Take 1 tablet by mouth daily at bedtime for 180 days. - cyclobenzaprine (FLEXERIL) 5 mg tablet Take 1 tablet by mouth at bedtime as needed. - Minocycline HCl 100 mg tablet Take 100 mg by mouth once daily. - cetirizine (ZYRTEC) 10 mg tablet 10 mg once daily. - diazePAM (VALIUM) 10 mg tablet Take 10 mg by mouth twice daily as needed. - HYDROcodone-acetaminophen (NORCO) 5-325 mg per tablet as needed. - pramipexole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 Dictation Location: [facility] Tech: Marlee Sánchez Transcribed By: JADEN 04/05/23 174 Dictated By: Binta Elaine MD 04/05/23 1127 Signed By: 04/05/23 174 Normal [facility] US breast ndl core biopsy LT on 04-05-2023 US breast ndl core biopsy LT [facility] [place] [address] Mammography Report Signed with Addenda Patient: Brittanie Garcia MR#: [id number] : 1985 Acct:[id number] Age/Sex: 38 / F ADM Date: 04/05/23 Loc: [facility] Room: Type: [facility] Attending Dr: Dano Pyle DO Copies to: MD Dano Saleh DO Ordering Provider: Dano Pyle DO Date of Service: 04/05/23 US/US breast ndl core biopsy LT: N63.20 ([id number]) MM/MM post biopsy LT w/CAD: POST BIOPSY CLIP PLACEMENT ADDENDUM 1 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 It is therefore uncertain whether or not resection should be performed. If there is no further intervention, ultrasound follow-up in 6 months is suggested. Impression dictated by: Binta Elaine M.D.04/17/2023 7:37 AM Dictation Location: [place] [address] Addendum Dictated By: MD Binta Elaine Addendum [...] MEDIAL LEFT BREAST. Impression dictated by: Binta lEaine M.D.04/05/2023 2:04 PM Dictation Location: [id number] Transcribed By: JADEN 04/05/231403 Dictated By: Binta Elaine MD 04/05/23 1134 Signed By: 04/05/231403 [facility] Salima 02-19-2023 EVELINE Telephone (NIQ) BRITTANIE GARCIA ([id number]) 1985 F Date Time Provider Department 02/19/23 [facility] During your visit today, we recorded the following information about you: Myrtle Gonzalez 02/19/2023 12:09 PM Signed Scanned in medical records from [facility] for review Evonne Dillard RN 02/19/2023 12:20 PM Signed Evonne GAMBOA BSN, RN, BA Evonne Dillard RN 02/19/2023 12:29 PM Signed Maria Del Carmen Borges APRN.CANTEEN MANAGER You 1 minute ago (12:27 PM) Thank you. This is a normal value. PRATIBHA Louis, RN, BA Allergies As of Date: 02/19/2023 Noted Allergy Reaction ADHESIVE 07/28/2022 14 - Other: See Comments 2 - Rash CAFFEINE 06/13/2012 11 - Vomiting DHE 06/13/2012 12 - Shortness of Breath Date Reviewed: 01/12/2023 Reviewed by: Maria Del Carmen Borges APRN.CANTEEN MANAGER - Fully Assessed Reason for Visit: Results [95] Cmt: [facility] Prescriptions as of 02/19/2023 - cyclobenzaprine [...] Encounter Status:Closed by EVONNE DILLARD [facility] ZULMAN Tele[facility] (NIQ) BRITTANIE GARCIA ([id number]) 1985 F Date Time Provider Department 02/09/23 [facility] During your visit today, we recorded the following information about you: Myrtle Gonzalez 02/09/2023 9:59 AM Signed Karyn in medical records from [facility] for review Evonne Dillard RN 02/09/2023 10:26 AM Signed Maria Del Carmen Borges APRN.CNP You 2 minutes ago (10:23 AM) Reviewed. LI LouisN, RN, BA Allergies As of Date: 02/09/2023 Noted Allergy Reaction ADHESIVE 07/28/2022 14 - Other: See Comments 2 - Rash CAFFEINE 06/13/2012 11 - Vomiting DHE 06/13/2012 12 - Shortness of Breath Date Reviewed: 01/12/2023 Reviewed by: Maria Del Carmen Borges APRN.CANTEEN MANAGER - Fully Assessed Reason for Visit: Results [95] Cmt: [facility] Prescriptions as of 02/09/2023 - cyclobenzaprine (FLEXERIL) [...] Status:Closed by EVONNE DILLARD on 02/09/23 Normal [facility] Automated basophil %Ordered By: Maria Del Carmen Borges on 02-07-2023 Basophils/100 WBC (Bld) 0.4 % Normal . [facility] Comment on above: Performed By: #### F ER, CBC #### [address] Automated basophil countOrde red By: Maria Del Carmen Borges on 02-07-2023 Basophils (Bld) [#/Vol] 0.0 10*3/uL Normal 0.0-0.2 [facility] Comment on above: Result Comment: PERF ORMED BY: [place] [address] PATHOLOGIST DESIGN ENGINEERING SPECIALIST ROSSI POND M.D. Performed By: #### F ER, CBC #### [address] Automated blood monocyte cou ntOrdered By: Maria Del Carmen Borges on 02-07-2023 Monocytes (Bld) [#/Vol] 0.5 10*3/uL Normal 0.0-0.8 [facility] Comment on above: Performed By: #### F ER, CBC #### [address] Automated eosinophil %Ordere d By: Maria Del Carmen Borges on 02-07-2023 Eosinophils/100 WBC (Bld) 1.2 % Normal . [facility] Comment on above: Performed By: #### F ER, CBC #### [address] Automated eosinophil countOr dered By: Maria Del Carmen Borges on 02-07-2023 Eosinophils (Bld) [#/Vol] 0.1 10*3/uL Normal 0.0-0.45 [facility] Comment on above: Performed By: #### F ER, CBC #### [address] Automated monocyte %Ordered By: Maria Del Carmen Borges on 02-07-2023 Monocytes/100 WBC (Bld) 6.5 % Normal . [facility] Comment on above: Performed By: #### F ER, CBC #### [address] Automated neutrophil %Ordere d By: Maria Del Carmen Borges on 02-07-2023 Neutrophils/100 WBC (Bld) 56.5 % Normal . [facility] Comment on above: Performed By: #### F ER, CBC #### [address] Complete Blood Count Auto Di ffon 02-07-2023 Mean Corpuscular HGB Conc 33.3 g/dL Normal 32.0-35.0 [facility] Comment on above: Performed By: #### F ER, CBC #### [address] NRBC% 0.1 /100{WBC} Normal 0-0.5 [facility] Comment on above: Performed By: #### F ER, CBC #### [address] Erythrocyte distribution wid th [Ratio] by Automated countOrdered By: Maria Del Carmen Borges on 02-07-2023 Erythrocyte distribution width (RBC) [Ratio] 13.4 % Normal 11.9-15.3 [facility] Comment on above: Performed By: #### F ER, CBC #### [address] Erythrocytes [#/volume] in B lood by Automated countOrdered By: Maria Del Carmen Borges on 02-07-2023 RBC (Bld) [#/Vol] 4.94 10*6/uL Normal 3.60-5.00 [facility] Comment on above: Performed By: #### F ER, CBC #### [address] Ferritin [Mass/volume] in Se rum or PlasmaOrdered By: Maria Del Carmen Borges on 02-07-2023 Ferritin [Mass/Vol] 110.5 ng/mL Normal 11.0-306.8 [facility] Comment on above: Result Comment: PERF ORMED BY: [place] [address] PATHOLOGIST DESIGN ENGINEERING SPECIALIST ROSSI POND M.D. Performed By: #### F ER, CBC #### [address] Hematocrit [Volume Fraction] of Blood by Automated countOrdered By: Maria Del Carmen Borges on 02-07-2023 Hematocrit (Bld) [Volume fraction] 42.6 % Normal 34.0-46.4 [facility] Comment on above: Performed By: #### F ER, CBC #### [address] Hemoglobin [Mass/volume] in BloodOrdered By: Maria Del Carmen Borges on 02-07-2023 Hemoglobin (Bld) [Mass/Vol] 14.2 g/dL Normal 11.8-15.4 [facility] Comment on above: Performed By: #### F ER, CBC #### [address] Leukocytes [#/volume] correc harman for nucleated erythrocytes in Blood by Automated counOrdered By: Maria Del Carmen Borges on 02-07-2023 WBC corrected for nucl RBC Auto (Bld) [#/Vol] 7.0 10*3/uL 3.8-11.6 [facility] Leukocytes [#/volume] in Blo od by Automated countOrdered By: Maria Del Carmen Borges on 02-07-2023 WBC (Bld) [#/Vol] 7.0 10*3/uL Normal 3.8-11.6 [facility] Comment on above: Performed By: #### F ER, CBC #### [facility] [address] Lymphocytes [#/volume] in Bl ood by Automated countOrdered By: Maria Del Carmen Borges on 02-07-2023 Lymphocytes (Bld) [#/Vol] 2.5 10*3/uL Normal 1.00-4.8 [facility] Comment on above: Performed By: #### F ER, CBC #### [facility] [address] Lymphocytes/100 leukocytes i n Blood by Automated countOrdered By: Maria Del Carmen Borges on 02-07-2023 Lymphocytes/100 WBC (Bld) 35.4 % Normal . [facility] Comment on above: Performed By: #### F ER, CBC #### [address] MCH [Entitic mass] by Automa harman countOrdered By: Maria Del Carmen Borges on 02-07-2023 MCH (RBC) [Entitic mass] 28.7 pg Normal 24.7-34.3 [facility] Comment on above: Performed By: #### F ER, CBC #### [address] MCHC Auto (RBC) [Mass/Vol]Or dered By: Maria Del Carmen Borges on 02-07-2023 MCHC (RBC) [Mass/Vol] 33.3 g/dL 32.0-35.0 [facility] MCV [Entitic volume] by Auto mated countOrdered By: Maria Del Carmen Borges on 02-07-2023 MCV (RBC) [Entitic vol] 86.2 fL Normal 80-100 [facility] Comment on above: Performed By: #### F ER, CBC #### [address] Neutrophils [#/volume] in Bl ood by Automated countOrdered By: Maria Del Carmen Borges on 02-07-2023 Neutrophils (Bld) [#/Vol] 4.0 10*3/uL Normal 1.8-7.7 [facility] Comment on above: Performed By: #### F ER, CBC #### [facility] [address] [place] [address] Nucleated erythrocytes [Pres ence] in Blood by Automated countOrdered By: Maria Del Carmen Borges on 02-07-2023 Nucleated RBC Auto Ql (Bld) 0.1 /100{WBC} 0-0.5 [facility] Platelet mean volume [Entiti c volume] in Blood by Automated countOrdered By: Maria Del Carmen Borges on 02-07-2023 Platelet mean volume (Bld) [Entitic vol] 8.3 fL Normal 6.3-10.7 [facility] Comment on above: Performed By: #### F ER, CBC #### [facility] [address] [place] [address] Platelets [#/volume] in Bloo d by Automated countOrdered By: Maria Del Carmen Borges on 02-07-2023 Platelets (Bld) [#/Vol] 223 10*3/uL Normal 150-450 [facility] Comment on above: Performed By: #### F ER, CBC #### [address] CNOVon 01-12-2023 CNOV Office Visit (BARBYCTMN ) BRITTANIE GARCIA ([id number]) 1985 F Date Time Provider Department 01/12/23 10:00 AM [facility] DEL CAR[facility]ORG[facility] During your visit today, we recorded the following information about you: Pulse Blood pressure Weight Height 110/minute 110/69 70.3 kg 1.575 m Maria Del Carmen Borges APRN.CANTEEN MANAGER 01/12/2023 10:51 AM Signed Brittanie Garcia is [...] Most likely receiving 65 units between procerus, merchandise buyer, frontalis, and temporalis muscles. Only receiving 90 [...] Tizanidine Methocarbamol Metaxalone Carisoprodol She does have [place] prescribed for the neck pain. 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 (more content not included)... Normal [facility] Echocardiogramon 12-28-[address], [address] [place] [address] TRANSTHORACIC ECHOCARDIOGRAM REPORT Patient Name: BRITTANIE Rudd Physician: [id number] Saeed GARCIA MD Study Date: 12/28/2022 Referring SORAYA FAUZIA Physician: MRN/PID: [id number] PCP: Filiberto Ying Accession/Order#: [id number] [facility] Location: [place] Date of : 1985 Fellow: Gender: F Nurse: Admit Date: Pneumatic Tool Operator: Lanny Padron RDCS, RVT Height: 157.48 cm CC Report to: Weight: 74.84 kg Study Type: Echocardiogram BSA: 1.76 m2 Blood Pressure: 106 /70 mmHg Diagnosis/ICD: R00.0-Tachycardia, unspecified; F73-Skvvtgw Indication: Hyperlipidemia, Overweight Procedure/CPT: Echo Complete w Full Doppler-00508 Study Detail: The following Echo studies were [...] 0.8 m/s (0.6-0.9m/s) PV Max P.4 mmHg [id number] Saeed Parada MD Electronically signed on 01/01/2023 at 2:35:16 PM Final Normal [facility] Office Visit (Cardiology)on 11-14-2022 Follow-up visit Diagnoses/Problems [...] requested at the time of your visit. I Corina GIven POPCORN MACHINE OPERATOR, am scribing for and in the presence of Dr. Soraya Arcos, FACC, FACP, RS The provider reviewed the following test(s) and result(s) with the patient: ECG, Holter monitor and Tilt table Chief Complaint Patient presented to [facility]. Adult Risk Screening Initial [...] Normal axis. Corrected QT interval 420 ms. TX interval 150 ms See signed ECG and check /Paceart. Imp / Plan Recurrent syncope, consistent with vasovagal etiology. Discussed mechanisms of syncope. Reviewed syncope brochure. Reviewed testing event monitor and tilt table te (more content not included)... Normal [facility] Office Visit (Cardiology)on 11-10-2022 Follow-up visit Diagnoses/Problems [...] as needed only Follow up with Dr Arcos as scheduled. Chief Complaint BRITTANIE GARCIA is [...] visit scheduled for November [address] Arocs). Otherwise she can follow-up with me as [...] Signs Recorded: 10Nov2022 09:01AMRecorded: 10Nov2022 08:58AM Systolic Jhijapf19, LUE, Sitting Diastolic Iyktqym60, LUE, Sitting Systolic Azcsdpxx285, LUE, Standing Diastolic Gbdpflgr99, LUE, Standing Heart Rate92, L Radial Munbgdfd26, LUE, Sitting Wvalatmlf84, LUE, Sitting Height5 ft 2 in Ypdlfb265 lb BMI Fcdiyhlmyv61.63 kg/m2 BSA Calculated1.75 Tobacco Useb) No Falls [...] 10 2022 11:29AM EST (Author) Normal [facility] No Panel Informationon 10-23 [facility] 250 DO Work Phone: Cardiovasc Arrhythmia Result son 09-29-2022 Cardiovasc Arrhythmia Results Reason For Visit Event Monitor: BRITTANIE is here for the application of a 30 day event monitor in office., Diagnosis: Syncope,Fainting Ordering Physician: Dr. Saeed Castellanos DO Enrollment sent to: [employer] Monitor number [id number] applied. Holter monitor printed and placed on [...] Nov 02 2022 9:05AM EST (Author) Normal [facility] Office Visit (Cardiology)on 09-20-2022 Follow-up visit Diagnoses/Problems [...] no rebound tachycardia. Recommendations, obtain [facility] [employer] monitoring, tilt table [...] negative for complaint. Vitals Vital Signs Recorded: 20Sep2022 10:01AMRecorded: 20Sep2022 09:59AM Systolic Tlbeg830 Diastolic Lying88 Systolic Hpxisyf301 Diastolic Qyryaca05 Systolic Duofffmy350 Diastolic Qyxejhwl93 Heart Rate85, Apical Lolbuaoa074, LUE, Supine Mpzitnseg91, LUE, Supine Height5 ft 2 in Zjmzcs834 lb BMI Uxzlpaqzqv76.36 kg/m2 BSA Calculated1.77 Tobacco Useb) No PHQ-2 #1. Ov (more content not included)... Normal [employer] Tobacco Screening.on 023 Adult depression screening assessment No [facility] [employer] 250 DO Work Phone: Tobacco use status CPHS b) No [facility] [employer] 250 DO Work Phone: MAGDA BY IFA WITH REFLEXon Nuclear Ab IF (S) [Titer] Negative Negative [facility] CCP ANTIBODY IGGon Cyclic citrullinated peptide IgG Qn <20 Units [facility] Cyclic citrullinated peptide IgG Qnon 07-31-2022 CCP Antibody IgG Qualitative Negative Negative [facility] C-REACTIVE PROTEIN (CRP)on 0 07-28-2022 CRP [Mass/Vol] <0.9 mg/dL [facility] CBC W Auto Differential pane l (Bld)on 07-28-2022 Basophils (Bld) [#/Vol] 0.03 10*3/uL <0.11 k/uL [facility] Basophils/100 WBC (Bld) 0.4 % [facility] Differential cell count method Nom (Bld) Auto [facility] Eosinophils (Bld) [#/Vol] 0.07 10*3/uL <0.46 k/uL [facility] Eosinophils/100 WBC (Bld) 0.9 % [facility] Erythrocyte distribution width (RBC) [Ratio] 13.0 % 11.5 - 15.0 % [facility] Hematocrit (Bld) [Volume fraction] 44.1 % 36.0 - 46.0 % [facility] Hemoglobin (Bld) [Mass/Vol] 14.3 g/dL 11.5 - 15.5 g/dL [facility] Immature granulocytes (Bld) [#/Vol] <0.10 k/uL [facility] Immature granulocytes/100 WBC (Bld) 0.3 % [facility] Lymphocytes (Bld) [#/Vol] 2.43 10*3/uL 1.00 - 4.00 k/uL [facility] Lymphocytes/100 WBC (Bld) 30.5 % [facility] MCH (RBC) [Entitic mass] 29.0 pg 26.0 - 34.0 pg [facility] MCHC (RBC) [Mass/Vol] 32.4 g/dL 30.5 - 36.0 g/dL [facility] MCV (RBC) [Entitic vol] 89.5 fL 80.0 - 100.0 fL [facility] Monocytes (Bld) [#/Vol] 0.49 10*3/uL <0.87 k/uL [facility] Monocytes/100 WBC (Bld) 6.1 % [facility] Neutrophils (Bld) [#/Vol] 4.93 10*3/uL 1.45 - 7.50 k/uL [facility] Neutrophils/100 WBC (Bld) 61.8 % [facility] Nucleated RBC (Bld) [#/Vol] <0.01 k/uL [facility] Nucleated RBC/100 WBC (Bld) [Ratio] 0.0 /100 WBC [facility] Platelet mean volume (Bld) [Entitic vol] 10.1 fL 9.0 - 12.7 fL [facility] Platelets (Bld) [#/Vol] 251 10*3/uL 150 - 400 k/uL [facility] RBC (Bld) [#/Vol] 4.93 10*6/uL 3.90 - 5.20 m/uL [facility] WBC (Bld) [#/Vol] 7.97 10*3/uL 3.70 - 11.00 k/uL [facility] Comprehensive metabolic 2000 panelon 07-28-2022 Albumin [Mass/Vol] 4.7 g/dL 3.9 - 4.9 g/dL [facility] ALP [Catalytic activity/Vol] 86 U/L 34 - 123 U/L [facility] ALT [Catalytic activity/Vol] 58 U/L High 7 - 38 U/L [facility] Anion gap [Moles/Vol] 12 mmol/L 9 - 18 mmol/L [facility] AST [Catalytic activity/Vol] 31 U/L 13 - 35 U/L [facility] Bilirubin [Mass/Vol] 0.4 mg/dL 0.2 - 1 .3 mg/dL [facility] Calcium [Mass/Vol] 10.0 mg/dL 8.5 - 10. 2 mg/dL [facility] Chloride [Moles/Vol] 105 mmol/L 97 - 10 5 mmol/L [facility] CO2 [Moles/Vol] 23 mmol/L 22 - 30 mmol/L [facility] Creatinine [Mass/Vol] 0.79 mg/dL 0.58 - 0.96 mg/dL [facility] Estimated Glomerular Filtration Rate 100 mL/min/1.73m >=60 mL/min/1.7 3m [facility] Glucose [Mass/Vol] 84 mg/dL 74 - 99 mg/dL [facility] Potassium [Moles/Vol] 4.1 mmol/L 3.7 - 5.1 mmol/L [facility] Protein [Mass/Vol] 7.7 g/dL 6.3 - 8.0 g/dL [facility] Sodium [Moles/Vol] 140 mmol/L 136 - 144 mmol/L [facility] Urea nitrogen [Mass/Vol] 12 mg/dL 7 - 21 mg/dL [facility] ESR Westergren method (Bld) [Velocity]on 07-28-2022 ESR (Bld) [Velocity] 5 mm/h 0 - 20 mm/hr [facility] No Panel Informationon 07-28 [facility] RHEUMATOID FACTOR BLon 07-28 Rheumatoid factor Qn <16 IU/mL [facility] XR CSPINE OBL FLEX_EXTon XR CSPINE [...] by: NAVNEET MONTERO Date: 2022-02-16 08:57 Normal [facility] Ferritin [Mass/volume] in Se rum or PlasmaOrdered By: Kenna Sheehan on 01-19-2022 Ferritin [Mass/Vol] 51.8 ng/mL 11-306.8 [facility] PAP ACOG PANEL 2: 30 to 65on 01-13-2022 . . Normal [facility] Comment on above: Result Comment: Perf ormed at: WB Performed By: #### [id number] #### [facility] [address] [place] [address] [address] Lui Fonseca Age Gdln ACOG Testing 30-65 Normal [facility] Comment on above: Performed By: #### [id number] #### [facility] [address] [place] [address] [address] Lui Fonseca DIAGNOSIS: Comment Normal [facility] Comment on above: Result Comment: NEGA TIVE FOR INTRAEPITHELIAL LESION OR MALIGNANCY. Performed at: WB Performed By: #### [id number] #### [facility] [address] [place] [address] [address] Lui Fonseca HPV Aptima Negative Normal Negative [facility] Comment on above: Result Comment: This nucleic acid amplification test detects fourteen high-risk HPV types (16,18,31,33,35,39,45,51,52,56,58,59,66,68) without differentiation. Performed at: =G Performed By: #### [id number] #### [facility] [address] [place] [address] [address] Lui Fonseca Methodology: Comment Normal [facility] Comment on above: Result Comment: This liquid based ThinPrep(R) pap test was screened with the use of an image guided system. Performed at: WB Performed By: #### [id number] #### [facility] [address] [place] [address] Dr. Lui Fonseca Note: Comment Normal [facility] Comment on above: Result Comment: The Pap smear is a screening test designed to aid in the detection of premalignant and malignant conditions of the uterine cervix. It is not a diagnostic procedure and should not be used as the sole means of detecting cervical cancer. Both false-positive and false-negative reports do occur. . Performed at: WB Performed By: #### [id number] #### [facility] [address] [place] [address] Dr. Lui Fonseca Performed by: Comment Normal [facility] Comment on above: Result Comment: Susan Alejandro, Supervisory Section Weaver (ASCP) Performed at: WB Performed By: #### [id number] #### [facility] [address] [place] [address] Dr. Lui Fonseca Specimen adequacy: Comment Normal [facility] Comment on above: Result Comment: Sati sfactory for evaluation. No endocervical component is identified. Performed at: WB Performed By: #### [id number] #### [facility] [address] [place] [address] Dr. uLi Fonseca INSULINon 01-02-2022 Insulin 20.6 uIU/mL Normal 2.6-24.9 [facility] Comment on above: Performed By: #### I NSULIN #### [facility] [address] [place] [address] Dr. Lui Fonseca H PYLORI ANTIBODY IGGon 12-19 H. PYLORI IGG ABS 0.15 Index Value Normal 0.00-0.[address] [facility] Comment on above: Result Comment: Nega tive <0.80 Equivocal 0.80 - 0.89 Positive >0.89 Performed By: #### H PYLLC #### [facility] [address] [place] [address] Dr. Lui Fonseca T4, T3U, FTI LABCORPon 01-01 Free Thyroxine Index 2.7 Normal 1.2-4.9 [facility] Comment on above: Performed By: #### T HYLC #### [facility] [address] [place] [address] Dr. Lui Fonseca T3 Uptake 30 % Normal 24-39 [facility] Comment on above: Performed By: #### T HYLC #### [facility] [address] [place] [address] Dr. Lui Fonseca T4 [Mass/Vol] 9.1 ug/dL Normal 4.5-12.0 [facility] Comment on above: Performed By: #### T HYLC #### [facility] [address] [place] [address] Dr. Lui Fonseca CBC AUTO DIFFon 12-31-2021 BASO # 0.0 103/ul Normal 0.0-0.1 [facility] Comment on above: Performed By: #### C BC #### [facility] [address] [place] [address] Dr. Lui Fonseca Basophils/100 WBC (Bld) 0.4 % Normal 0.2-2.0 [facility] Comment on above: Performed By: #### C BC #### [facility] [address] [place] [address] Dr. Lui Fonseca EO # 0.2 103/ul Normal 0.0-0.7 [facility] Comment on above: Performed By: #### C BC #### [facility] [address] [place] [address] Dr. Lui Fonseca Eosinophils/100 WBC (Bld) 2.8 % Normal 0.9-7.0 [facility] Comment on above: Performed By: #### C BC #### [facility] [address] [place] [address] Dr. Lui Fonseca Erythrocyte distribution width (RBC) [Ratio] 13.2 % Normal 11.0-15.0 [facility] Comment on above: Performed By: #### C BC #### [facility] [address] [place] [address] Dr. Lui Fonseca Hematocrit (Bld) [Volume fraction] 44.0 % Normal 36.0-48.0 [facility] Comment on above: Performed By: #### C BC #### [facility] [address] [place] [address] Dr. Lui Fonseca Hemoglobin (Bld) [Mass/Vol] 14.3 g/dL Normal 12.0-16.0 [facility] Comment on above: Performed By: #### C BC #### [facility] [address] [place] [address] Dr. Lui Fonseca IG # 0.01 10e3/ul Normal 0.00-0.03 [facility] Comment on above: Performed By: #### C BC #### [facility] [address] [place] [address] Dr. Lui Fonseca IG % 0.2 % Normal 0.0-0.5 [facility] Comment on above: Performed By: #### C BC #### [facility] [address] [place] [address] Dr. Lui Fonseca LYMPH # 2.3 103/ul Normal 1.2-3.8 [facility] Comment on above: Performed By: #### C BC #### [facility] [address] [place] [address] Dr. Lui Fonseca Lymphocytes/100 WBC (Bld) 41.6 % Normal 20.5-60.0 [facility] Comment on above: Performed By: #### C BC #### [facility] [address] [place] [address] Dr. Lui Fonseca MANUAL DIFF REQ NO Normal [facility] Comment on above: Performed By: #### C BC #### [facility] [address] [place] [address] Dr. Lui Fonseca MCH (RBC) [Entitic mass] 29.1 pg Normal 26.7-34.0 [facility] Comment on above: Performed By: #### C BC #### [facility] [address] [place] [address] Dr. Lui Fonseca MCHC (RBC) [Mass/Vol] 32.5 g/dL Normal 29.9-35.2 [facility] Comment on above: Performed By: #### C BC #### [facility] [address] [place] [address] Dr. Lui Fonseca MCV (RBC) [Entitic vol] 89.6 fL Normal 81.0-99.0 [facility] Comment on above: Performed By: #### C BC #### [facility] [address] [place] [address] Dr. Lui Fonseca MONO # 0.3 103/ul Normal 0.3-0.8 [facility] Comment on above: Performed By: #### C BC #### [facility] [address] [address] [address] Lui Fonseca Monocytes/100 WBC (Bld) 6.3 % Normal 1.7-12.0 [facility] Comment on above: Performed By: #### C BC #### [facility] [address] [place] [address] Dr. Lui Fonseca NEUT # 2.7 103/ul Normal 1.4-6.5 [facility] Comment on above: Performed By: #### C BC #### [facility] [address] [place] [address] Dr. Lui Fonseca Neutrophils/100 WBC (Bld) 48.7 % Normal 43.0-75.0 [facility] Comment on above: Performed By: #### C BC #### [facility] [address] [place] [address] Dr. Lui Fonseca Platelet mean volume (Bld) [Entitic vol] 9.5 fL Normal 9.5-13.5 [facility] Comment on above: Performed By: #### C BC #### [facility] [address] [place] [address] Dr. Lui Fonseca PLT 276 103/ul Normal 150-450 [facility] Comment on above: Performed By: #### C BC #### [facility] [address] [place] [address] Dr. Lui Fonseca RBC 4.91 106/ul Normal 4.20-5.40 [facility] Comment on above: Performed By: #### C BC #### [facility] [address] [place] [address] Dr. Lui Fonseca WBC 5.4 103/ul Normal 4.0-11.0 [facility] Comment on above: Performed By: #### C BC #### [facility] [address] [address] [address] Lui Fonseca GLYCOHEMOGLOBIN A1Con 2021 ADA RECOMMENDATION SEE BELOW Normal [facility] Comment on above: Result Comment: ADA RECOMMENDED LIMIT 4.0 - 6.0 ADA THERAPEUTIC TARGET < 7.0 ACTION SUGGESTED > 7.0 Performed By: #### A 1C ####[facility] [address] [address]DrLatisha Fonseca Glucose [Mass/Vol] 97 mg/dL Normal [facility] Comment on above: Performed By: #### A 1C ####[facility] [address] [place] [address], [place] [address]DrLatisha Fonseca HbA1c (Bld) [Mass fraction] 5.0 % Normal 4.5-6.2 [facility] Comment on above: Performed By: #### A 1C ####[facility] [address] [place] [address], [place] [address]Dr. Lui Fonseca IRONon 12-31-2021 Iron [Mass/Vol] 101.0 ug/dL Normal 50.0-170.0 [facility] Comment on above: Performed By: #### I EDMOND #### [facility] [address] [place] [address] Dr. Lui Fonseca LIPID PROFILEon 12-31-2021 CHOL-HDL RATIO NORM SEE BELOW Normal [facility] Comment on above: Result Comment: 3.3 - 4.4 LOW RISK 4.4 - 7.1 AVERAGE RISK 7.1 - 11.0 MODERATE RISK >11.0 HIGH RISK Performed By: #### T SH, LIPID, CMP ####[facility] [address] [place] [address], [place] [address]DrLatisha Fonseca Cholesterol [Mass/Vol] 149 mg/dL Normal <=200 [facility] Comment on above: Performed By: #### T SH, LIPID, CMP ####[facility] [address] [place] [address], [place] [address]DrLatisha Fonseca Cholesterol in HDL [Mass/Vol] 55 mg/dL Normal 40-60 [facility] Comment on above: Performed By: #### T SH, LIPID, CMP ####[facility] [address] [address]Dr. Lui Fonseca Cholesterol in LDL [Mass/Vol] 61.4 mg/dL Normal [facility] Comment on above: Performed By: #### T SH, LIPID, CMP ####[facility] [address] [address]Dr. Lui Fonseca Cholesterol.total/Chol esterol in HDL [Mass ratio] 2.7 {ratio} Normal [facility] Comment on above: Performed By: #### T SH, LIPID, CMP ####[facility] [address] [address]Dr. Lui Fonseca HDL NORMAL > or = 60 mg/dl - LO W CARDIOVASCULAR RISK <40 mg/dl - HIGH CARDIOVASCULAR RISK Normal [facility] Comment on above: Performed By: #### T MAMADOU, LIPID, CMP ####[facility] [address] [address]Dr. Lui Fonseca LDL CALC NORMAL SEE BELOW Normal [facility] Comment on above: Result Comment: <100 mg/dl OPTIMAL 100 - 129 mg/dl NEAR OR ABOVE OPTIMAL 130 - 159 mg/dl BORDERLINE HIGH 160 - 189 mg/dl HIGH >190 mg/dl VERY HIGH Performed By: #### T MAMADOU, LIPID, CMP ####[facility] [address] [address]Dr. Lui Fonseca Triglyceride [Mass/Vol] 163 mg/dL Critically high <=150 [facility] Comment on above: Performed By: #### T SH, LIPID, CMP ####[facility] [address] [id number]. uLi Fonseca VLDL CALC 32.6 mg/dL Normal [facility] Comment on above: Performed By: #### T SH, LIPID, CMP ####[facility] [address] [id number]. Lui Fonseca OCC BLD IMMUNO SCREENon 12-19 OCCULT BLOOD Negative Normal NEGATIVE [facility] Comment on above: Performed By: #### O BSCRN #### [facility] [address] [place], [place] [address] Dr. Lui Fonseca PROF 14(COMP METB)on 022 Albumin [Mass/Vol] 4.1 g/dL Normal 3.4-5.0 [facility] Comment on above: Performed By: #### T SH, LIPID, CMP ####[facility] [address] [id number] Fonseca Albumin/Globulin [Mass ratio] 1.2 {ratio} Normal [facility] Comment on above: Performed By: #### T SH, LIPID, CMP ####[facility] [address] [address]DrLatisha Fonseca ALP [Catalytic activity/Vol] 86 U/L Normal 46-116 [facility] Comment on above: Performed By: #### T MAMADOU, LIPID, CMP ####[facility] [address] [address]DrLatisha Fonseca ALT [Catalytic activity/Vol] 27 U/L Normal 14-59 [facility] Comment on above: Performed By: #### T MAMADOU, LIPID, CMP ####[facility] [address] [address]DrLatisha Fonseca Anion gap [Moles/Vol] 14.1 mmol/L Normal [facility] Comment on above: Performed By: #### T MAMADOU, LIPID, CMP ####[facility] [address] [id number] Fonseca AST [Catalytic activity/Vol] 15 U/L Normal 15-37 [facility] Comment on above: Performed By: #### T SH, LIPID, CMP ####[facility] [address] [address]DrLatisha Fonseca Bilirubin [Mass/Vol] 0.6 mg/dL Normal 0.2-1.0 [facility] Comment on above: Performed By: #### T SH, LIPID, CMP ####[facility] [address] [phone] Fonseca Calcium [Mass/Vol] 9.1 mg/dL Normal 8.5-10.1 [facility] Comment on above: Performed By: #### T MAMADOU, LIPID, CMP ####[facility] [address] [address]Dr. Lui Fonseca Chloride [Moles/Vol] 104 mmol/L Normal 98-107 [facility] Comment on above: Performed By: #### T MAMADOU, LIPID, CMP ####[facility] [address] [address]Dr. Lui Fonseca CO2 [Moles/Vol] 26.8 mmol/L Normal 21.0-32.0 [facility] Comment on above: Performed By: #### T MAMADOU, LIPID, CMP ####[facility] [address] [place] [address], [place] [address]Dr. Lui Fonseca Creatinine [Mass/Vol] 0.84 mg/dL Normal 0.55-1.02 [facility] Comment on above: Performed By: #### T MAMADOU, LIPID, CMP ####[facility] [address] [place] [address], [place] [address]Dr. Lui Fonseca EGFR-AF MONTENEGRIN >60 Normal >=60 [facility] Comment on above: Performed By: #### T MAMADOU, LIPID, CMP ####[facility] [address] [place] [address], [place] [address]Dr. Lui Fonseca EGFR-NON AF MONTENEGRIN >60 Normal >=60 [facility] Comment on above: Performed By: #### T MAMADOU, LIPID, CMP ####[facility] [address] [place] [address], [place] [address]Dr. Lui Fonseca Globulin (S) [Mass/Vol] 3.3 g/dL Normal [facility] Comment on above: Performed By: #### T MAMADOU, LIPID, CMP ####[facility] [address] [place] [address], [place] [address]Dr. Lui Fonseca Glucose [Mass/Vol] 93 mg/dL Normal 74-106 [facility] Comment on above: Performed By: #### T MAMADOU, LIPID, CMP ####[facility] [address] [address]Dr. Lui Fonseca Potassium [Moles/Vol] 3.9 mmol/L Normal 3.5-5.1 [facility] Comment on above: Performed By: #### T MAMADOU, LIPID, CMP ####[facility] [address] [address]Dr. Lui Fonseca Protein [Mass/Vol] 7.4 g/dL Normal 6.4-8.2 [facility] Comment on above: Performed By: #### T MAMADOU, LIPID, CMP ####[facility] [address] [address]Dr. Gabiandrzej Fonseca Sodium [Moles/Vol] 141 mmol/L Normal 136-145 [facility] Comment on above: Performed By: #### T MAMADOU, LIPID, CMP ####[facility] [address] [place] [address], [place] [address]Dr. Lui Fonseca Urea nitrogen [Mass/Vol] 8.0 mg/dL Normal 7.0-18.0 [facility] Comment on above: Performed By: #### T MAMADOU, LIPID, CMP ####[facility] [address] [address]Dr. Gabiandrzej Fonseca Urea nitrogen/Creatinine [Mass ratio] 9.5 mg/mg Normal [facility] Comment on above: Performed By: #### T MAMADOU, LIPID, CMP ####[facility] [address] [address]Dr. Gabiandrzej Fonseca TSHon 12-31-2021 TSH 0.539 uIU/mL Normal 0.358-3.74 0 [facility] Comment on above: Performed By: #### T MAMADOU, LIPID, CMP ####[facility] [address] [place] [address], [place] [address]Dr. Lui Fonseca Vital Signs Date Time Vital Sign Value Performing Clinician Facility 10-31-2023 10: Body height 157.5 cm Harman Sullivan MD Work Phone: [facility] 10-31-2023 10:14-040 Body mass index (BMI) [Ratio] 27.82 kg/m2 Harman Sullivan MD Work Phone: [facility] 10-31-2023 10:14-0400 Body weight 69 kg Harman Sullivan MD Work Phone: [facility] 10-31-2023 10:14-0400 Diastolic blood pressure 70 mm[Hg] Harman Sullivan MD Work Phone: [facility] 10-31-2023 10:14-0400 Heart rate 84 /min Harman Sullivan MD Work Phone: [facility] 10-31-2023 10:14-0400 Systolic blood pressure 109 mm[Hg] Harman Sullivan MD Work Phone: [facility] 09-21-2023 08:12-0400 Body height 157.5 cm Harman Sullivan MD Work Phone: [facility] 09-21-2023 08:12-0400 Body mass index (BMI) [Ratio] 27.58 kg/m2 Harman Sullivan MD Work Phone: [facility] 09-21-2023 08:12-0400 Body weight 68.4 kg Harman Sullivan MD Work Phone: [facility] 09-21-2023 08:12-0400 Diastolic blood pressure 74 mm[Hg] Harman Sullivan MD Work Phone: [facility] 09-21-2023 08:12-0400 Heart rate 84 /min Harman Sullivan MD Work Phone: [facility] 09-21-2023 08:12-0400 SaO2% (BldA) [Mass fraction] 99 % Harman Sullivan MD Work Phone: [facility] 09-21-2023 08:12-0400 Systolic blood pressure 109 mm[Hg] Harman Sullivan MD Work Phone: [facility] 05-15-2023 12:15-0500 Diastolic blood pressure 67 mm[Hg] MD Filiberto Ying Work Phone: [facility] 05-15-2023 12:15-0500 Heart rate 86 /min MD Filiberto Ying Work Phone: [facility] 05-15-2023 12:15-0500 Respiratory rate 16 /min MD Filiberto Ying Work Phone: [facility] 05-15-2023 12:15-0500 SaO2% (BldA) [Mass fraction] 100 % MD Filiberto Ying Work Phone: [facility] 05-15-2023 12:15-0500 Systolic blood pressure 125 mm[Hg] MD Filiberto Ying Work Phone: [facility] 05-15-2023 11:10-0500 Inhaled oxygen flow rate 6 L/min MD Filiberto Ying Work Phone: [facility] 05-15-2023 10:55-0500 Body temperature 98.1 [degF] MD Filiberto Ying Work Phone: [facility] 05-15-2023 09:30-0500 Body mass index (BMI) [Ratio] 25.8 kg/m2 MD Filiberto Ying Work Phone: [facility] 05-15-2023 08:55-0500 Body height 157.48 cm MD Filiberto Ying Work Phone: [facility] 05-15-2023 08:55-0500 Body weight 64 kg MD Filiberto Ying Work Phone: [facility] 04-05-2023 12:08-0500 Body temperature 98.2 [degF] MD Filiberto Ying Work Phone: [facility] 04-05-2023 12:08-0500 Diastolic blood pressure 69 mm[Hg] MD Filiberto Ying Work Phone: [facility] 04-05-2023 12:08-0500 Heart rate 87 /min MD Filiberto Ying Work Phone: [facility] 04-05-2023 12:08-0500 Respiratory rate 18 /min MD Filiberto Ying Work Phone: [facility] 04-05-2023 12:08-0500 SaO2% (BldA) [Mass fraction] 100 % MD Filiberto Ying Work Phone: [facility] 04-05-2023 12:08-0500 Systolic blood pressure 110 mm[Hg] MD Filiberto Ying Work Phone: [facility] 01-12-2023 09:35-0400 Body height 157.5 cm Maria Del Carmen Jony CAFETERIA ASSISTANT.CANTEEN MANAGER Work Phone: [facility] 01-12-2023 09:35-0400 Body weight 70.31 kg Maria Del Carmen Jony CAFETERIA ASSISTANT.CANTEEN MANAGER Work Phone: [facility] 01-12-2023 09:35-0400 Diastolic blood pressure 69 mm[Hg] Maria Del Carmen Borges CAFETERIA ASSISTANT.CANTEEN MANAGER Work Phone: [facility] 01-12-2023 09:35-0400 Heart rate 110 /min Maria Del Carmen Borges CAFETERIA ASSISTANT.CANTEEN MANAGER Work Phone: [facility] 01-12-2023 09:35-0400 SaO2% (BldA) [Mass fraction] 93 % Maria Del Carmen Jony CAFETERIA ASSISTANT.CANTEEN MANAGER Work Phone: [facility] 01-12-2023 09:35-0400 Systolic blood pressure 110 mm[Hg] Maria Del Carmen Borges CAFETERIA ASSISTANT.CANTEEN MANAGER Work Phone: [facility] 10-23-2022 14:14-0400 Diastolic blood pressure 66 mm[Hg] MD Filiberto Ying Work Phone: [facility] 10-23-2022 14:14-0400 Heart rate 100 /min MD Filiberto Ying Work Phone: [facility] 10-23-2022 14:14-0400 Systolic blood pressure 113 mm[Hg] MD Filiberto Ying Work Phone: [facility] 10-23-2022 13:50-0400 SaO2% (BldA) [Mass fraction] 99 % MD Filiberto Ying Work Phone: [facility] 09-20-2022 10:01-0400 Diastolic blood pressure 88 mm[Hg] Filiberto M Hoy Work Phone: [facility] 250 DO Work Phone: 09-20-2022 10:01-0400 Diastolic blood pressure 84 mm[Hg] Filiberto M Hoy Work Phone: [facility] 250 DO Work Phone: 09-20-2022 10:01-0400 Diastolic blood pressure 86 mm[Hg] Filiberto M Hoy Work Phone: [facility] 250 DO Work Phone: 09-20-2022 10:01-0400 Systolic blood pressure 120 mm[Hg] Filiberto M Hoy Work Phone: [facility] 250 DO Work Phone: 09-20-2022 10:01-0400 Systolic blood pressure 122 mm[Hg] Filiberto M Hoy Work Phone: [facility] 250 DO Work Phone: 09-20-2022 09:59-0400 Body height 157.48 cm Filiberto M Hoy Work Phone: [facility] 250 DO Work Phone: 09-20-2022 09:59-0400 Body mass index (BMI) [Ratio] 30.36 kg/m2 Filiberto M Hoy Work Phone: [facility] 250 DO Work Phone: 09-20-2022 09:59-0400 Body surface area Derived from formula 1.77 m2 Filiberto M Hoy Work Phone: [facility] 250 DO Work Phone: 09-20-2022 09:59-0400 Body weight 75.3 kg Filiberto M Hoy Work Phone: [facility] 250 DO Work Phone: 09-20-2022 09:59-0400 Diastolic blood pressure 88 mm[Hg] Filiberto Aguilar Hoy Work Phone: [facility] 250 DO Work Phone: 09-20-2022 09:59-0400 Heart rate 85 /min Filiberto Zoe Hoy Work Phone: [facility] 250 DO Work Phone: 09-20-2022 09:59-0400 Systolic blood pressure 120 mm[Hg] Filiberto Zoe Hoy Work Phone: [facility] 250 DO Work Phone: 07-28-2022 13:01-0500 Body height 157.5 cm Somjita Braxton CAFETERIA ASSISTANT.CANTEEN MANAGER Work Phone: [facility] 07-28-2022 13:01-0500 Body temperature 97.81 [degF] Somjita Braxton CAFETERIA ASSISTANT.CANTEEN MANAGER Work Phone: [facility] 07-28-2022 13:01-0500 Body weight 79.11 kg Somjita Braxton CAFETERIA ASSISTANT.CANTEEN MANAGER Work Phone: [facility] 07-28-2022 13:01-0500 Diastolic blood pressure 59 mm[Hg] Somjita Braxton CAFETERIA ASSISTANT.CANTEEN MANAGER Work Phone: [facility] 07-28-2022 13:01-0500 Heart rate 85 /min Somjita Braxton CAFETERIA ASSISTANT.CANTEEN MANAGER Work Phone: [facility] 07-28-2022 13:01-0500 Systolic blood pressure 117 mm[Hg] Somjita Braxton CAFETERIA ASSISTANT.CANTEEN MANAGER Work Phone: [facility] Encounters Encounter Date Encounter Type Care Provider Facility Start: 01-28-2024 End: 01-28-2024 Patient encounter procedure MD Filiberto Ying Work Phone: [facility] Start: 01-28-2024 End: 01-28-2024 ambulatory MD Filiberto Ying Work Phone: [facility] Work Phone: Start: 11-09-2023 ambulatory [facility] Neurology Comment on above: Paperwork Start: 11-09-2023 E-mail encounter kennedy aguilar caregiver [facility] Provider Neurology Start: 10-31-2023 Telephone encounter Harman fraser MD Work Phone: Neurology Comment on above: Appointment Start: 10-31-2023 End: 10-31-2023 ambulatory HARMAN SULLIVAN Facility:[facility] Start: 10-31-2023 End: 10-31-2023 Patient encounter procedure Harman Sullivan MD Work Phone: Neurology Comment on above: Chronic migraine wit hout aura, with intractable migraine, so stated, with status migrainosus (Primary Dx); Neck pain Start: 10-18-2023 Get Medical Advice Maria Del Carmen caraballo CAFETERIA ASSISTANT.CANTEEN MANAGER Work Phone: Neurology Comment on above: Med refill Refill Request Start: 10-11-2023 Telephone encounter Harman fraser MD Work Phone: Neurology Comment on above: Insurance Authorizat ion (Botox) Start: 10-03-2023 ambulatory Maria Del Carmen PHAM.CANTEEN MANAGER Work Phone: Neurology Comment on above: Fmla Start: 09-21-2023 Telephone encounter Harman fraser MD Work Phone: Neurology Comment on above: Request [facility] Start: 09-21-2023 End: 09-21-2023 ambulatory HARMAN SULLIVAN Facility:[facility] Start: 09-21-2023 End: 09-21-2023 Patient encounter procedure Harman Sullivan MD Work Phone: Neurology Comment on above: Chronic migraine wit hout aura, with intractable migraine, so stated, with status migrainosus (Primary Dx); Neck pain; RLS (restless legs syndrome) Start: 09-15-2023 Refill Maria Del Carmen PAREKHN.CANTEEN MANAGER Work Phone: Neurology Comment on above: Refill Request Start: 09-04-2023 End: 09-04-2023 ambulatory Maria Del Carmen Borges APRN.CANTEEN MANAGER Work Phone: Neurology Comment on above: Cervical dystonia (P rimary Dx) Start: 09-04-2023 End: 09-04-2023 Telemedicine consultation with patient Maria Del Carmen Borges APRN.CANTEEN MANAGER Work Phone: [facility] Start: 09-03-2023 E-mail encounter fro m caregiver Maria Del Carmen Borges APRN.CANTEEN MANAGER Work Phone: Neurology Start: 09-03-2023 Patient encounter procedure Maria Del Carmen Borges APRN.CANTEEN MANAGER Work Phone: Neurology Comment on above: appointment Start: 07-30-2023 End: 07-30-2023 ambulatory VALERIO Giles YVON Not Available Start: 05-23-2023 End: 05-23-2023 ambulatory DANO H EDENILSON Not Available Start: 05-15-2023 End: 05-15-2023 Admission to same day surgery center MD Filiberto Ying Work Phone: [facility] [place] Start: 05-15-2023 End: 05-15-2023 ambulatory MD Filiberto Ying Work Phone: [facility] Work Phone: Start: 05-01-2023 End: 05-01-2023 Patient encounter procedure MD Filiberto Ying Work Phone: [facility]-Pre-Surgical Testing Work Phone: Start: 05-01-2023 End: 05-01-2023 ambulatory MD Filiberto Ying Work Phone: [facility] Work Phone: Start: 04-05-2023 End: 04-05-2023 Admission to same day surgery center MD Filiberto Ying Work Phone: [facility]-Ultrasound Cntr for Breast Car Start: 04-05-2023 End: 04-05-2023 ambulatory MD Filiberto Ying Work Phone: [facility] Work Phone: Start: 02-19-2023 Telephone encounter Maria Del Carmen Tucker on CAFETERIA ASSISTANT.CANTEEN MANAGER Work Phone: Neurology Comment on above: Results ([facility] ) Start: 02-09-2023 Telephone encounter Maria Del Carmen Tucker on CAFETERIA ASSISTANT.CANTEEN MANAGER Work Phone: Neurology Comment on above: Results ([facility] ) Start: 02-07-2023 End: 02-07-2023 Patient encounter procedure MD Filiberto Ying Work Phone: [facility] [place] Work Phone: Start: 02-07-2023 End: 02-07-2023 ambulatory MD Filiberto Ying Work Phone: [facility] Work Phone: Start: 01-19-2023 Orders Only Maria Del Carmen Giles PRN.CANTEEN MANAGER Work Phone: Neurology Start: 01-17-2023 ambulatory Maria Del Carmen Borges A PRN.CANTEEN MANAGER Work Phone: Neurology Comment on above: Labs and rx Start: 01-12-2023 End: 01-12-2023 ambulatory MARIA DEL CARMEN BORGES Facility:[facility] Start: 01-12-2023 End: 01-12-2023 Patient encounter procedure Maria Del Carmen Bogres CAFETERIA ASSISTANT.CANTEEN MANAGER Work Phone: Neurology Comment on above: Cervical dystonia (P rimary Dx); Neck tightness; RLS (restless legs syndrome) Start: 01-08-2023 Chart Update Filiberto Ying Work Phone: [facility] 320 DO Work Phone: Start: 12-28-[address] Soraya Ford acility:[id number] Start: 11-14-2022 ambulatory Soraya Arcos Facility:1 [id number] Start: 11-10-2022 FUV, Provider: Saeed Castellanos, Status: Pen, Time: 8:50 AM Filiberto Ying Work Phone: [facility] Work Phone: Start: 11-10-[address] Saeed Castellanos Facility: Start: 11-02-[address] [facility] Facility: Start: 11-02-[address] Saeed Castellanos Facility: Start: 10-23-2022 End: 10-23-2022 ambulatory MD Filiberto Ying Work Phone: [facility] Work Phone: Start: 10-23-2022 End: 10-23-2022 Patient encounter procedure MD Filiberto Ying Work Phone: [facility]-Electrodiagnostics Work Phone: Start: 10-23-2022 ambulatory Romero Jones Faci lity:[id number] Start: 10-12-2022 End: 10-12-2022 Patient encounter procedure MD Filiberto Ying Work Phone: [facility]-Center for Breast Care Work Phone: Start: 10-06-[address] FILIBERTO YING . Facili ty:H1 Start: 09-29-2022 EVENT [facility], Provider : [employer] SALES ASSOCIATE 1,[id number], Status: Pen, Time: 1:00 PM Filiberto Aguilar Franty Work Phone: [facility] 250 DO Work Phone: Start: 09-29-2022 Patient encounter procedure Filibertoxcohitl Ying Work Phone: [facility] 250 DO Work Phone: Start: 09-29-[address] Saeed Castellanos Facility: Start: 09-20-2022 Office consultation new/estab patient 60 min Filibertoxochitl Petersy Work Phone: [facility] 250 DO Work Phone: Start: 09-20-[address] Saeed Castellanos Facility: Start: 08-11-2022 End: 08-11-2022 ambulatory Nayely Limon APRN.CANTEEN MANAGER Work Phone: Rheumatology Comment on above: Neck pain, chronic ( Primary Dx); Fibromyalgia Start: 08-11-2022 End: 08-11-2022 Telemedicine consultation with patient Nayely Limon APRN.CANTEEN MANAGER Work Phone: [facility] Start: 07-28-2022 End: 07-28-2022 Subsequent hospital visit by physician Xr Main A21 Radiology Comment on above: Neck pain, chronic [ M54.2, G89.29] Start: 07-28-2022 End: 07-28-2022 Patient encounter procedure Nayely Limon APRN.CANTEEN MANAGER Work Phone: Rheumatology Comment on above: Neck [...] encounter procedure MD Filiberto Ying Work Phone: [facility] [place] Start: 01-09-2022 End: 01-09-[address] FABY RAYMOND . Facility:H1 Start: 01-03-2022 Encounter for genera l adult medical examination without abnormal findings DR FILIBERTO YING . [facility] Start: 12-31-2021 End: 01-01-[address] FILIBERTO YING . Facility:H1 Start: 12-31-2021 End: 01-01-2022 Encounter for general adult medical examination without abnormal findings DR FILIBERTO YING . Facility:H1 Start: 11-18-2021 End: 11-18-2021 Patient encounter procedure MD Filiberto Ying Work Phone: [facility]MRI [facility] [place] Procedures Date Procedure Procedure Detail Performing Clinician Start: 01-28-2024 Ultrasonography of right breast MD Filiberto Ying Work Phone: Start: 09-04-2023 Follow-up visit Follow Up MARIA DEL CARMEN BAKER Start: 05-15-2023 Lumpectomy of breast MD Filiberto Ying Work Phone: Start: 04-05-2023 Mammography of left breast MD [...] Radex spine cervical 4 or 5 views Nayely Limon APRN.CANTEEN MANAGER Work Phone: Start: 07-28-2022 Radiologic exam chest 2 views Nayely Limon APRN.CANTEEN MANAGER Work Phone: Start: 11-18-2021 MRI of head MD Filiberto Ying Work Phone: Cholecystectomy Filiberto M Ho y Work Phone: Esophagogastroduodenoscopy D ouglas Zoe Ying Work Phone: Hysterectomy Filiberto M Hoy Work Phone: Laparoscopy Filiberto M Hoy Work Phone: Tonsillectomy and adenoidectomy Filiberto M Hoy Work Phone: NEGATED: Highlighted row has not occurred! Total colonoscopy Filiberto M Hoy Work Phone: Plan of Treatment Date Care Activity Detail Author Start: 01-03-2030 Urine microalbumin profile [facility] Start: 01-30-2024 End: 01-30-2024 Patient encounter procedure 01/30/2024 2:00 PM EDT Office Visit Neurology [address] [place] [phone] Harman Sullivan MD [address] [place], [place] [id number] Botox Neurology Comment on above: Botox Start: 01-20-2024 Influenza vaccination [facility] Start: 11-06-2023 End: 11-06-2023 Patient encounter procedure 11/06/2023 10:30 AM EDT Office Visit Neurology [address] [place] [id number] Harman Sullivan MD [address] [place], [place] [id number] Three week follow up Neurology Comment on above: Three week follow up Start: 10-31-2023 End: 10-31-2023 Patient encounter procedure 10/31/2023 10:30 AM EDT Office Visit Neurology [address] [place] [phone] Harman Sullivan MD [address] [place], [place] [id number] Botox auth approved Neurology Comment on above: Botox auth approved Start: 09-21-2023 End: 09-21-2023 Patient encounter procedure 09/21/2023 8:30 AM EDT Office Visit Neurology [address] [place] [address] Harman Sullivan MD [address] [place], [place] [id number] Cervical dystonia [G24.3] Neurology Comment on above: Cervical dystonia [G 24.3] Start: 05-21-2023 Behavioral Health Screening Behavioral Health Screening [facility] Start: 05-15-2023 [facility] Start: 05-15-2023 [facility] Start: 04-05-2023 [facility] Start: 03-16-2023 FUV, Provider: Soraya Arcos, Status: Pen, Time: 1:00 PM FUV, Provider: Soraya Arcos, Status: Pen, Time: 1:00 PM -[facility] 320 DO Work Phone: Start: 01-19-2023 Covid-19 Vaccine ( season) Covid-19 Vaccine () [facility] Start: 01-19-2023 Influenza vaccination C [facility] Start: 01-12-2023 End: 03-14-2023 CBC panel - Blood by Automated count CBC Lab Routine RLS (restless legs syndrome) Expected: 01/12/2023, Expires: 03/14/2023 [facility] Work Phone: Comment on above: Expected: 01/12/2023 , Expires: 03/14/2023 Start: 01-12-2023 End: 03-14-2023 Cobalamin (Vitamin B12) [Mass/volume] in Serum or Plasma VITAMIN B12 BLOOD Lab Routine RLS (restless legs syndrome) Expected: 01/12/2023, Expires: 03/14/2023 [facility] Work Phone: Comment on above: Expected: 01/12/2023 , Expires: 03/14/2023 Start: 01-12-2023 End: 03-14-2023 Comprehensive metabolic 2000 panel - Serum or Plasma COMP METABOLIC PANEL Lab Routine RLS (restless legs syndrome) Expected: 01/12/2023, Expires: 03/14/2023 [facility] Work Phone: Comment on above: Expected: 01/12/2023 , Expires: 03/14/2023 Start: 01-12-2023 End: 03-14-2023 Ferritin [Mass/volume] in Serum or Plasma FERRITIN BLD Lab Routine RLS (restless legs syndrome) Expected: 01/12/2023, Expires: 03/14/2023 [facility] Work Phone: Comment on above: Expected: 01/12/2023 , Expires: 03/14/2023 Start: 01-12-2023 End: 03-14-2023 Iron and Iron binding capacity panel - Serum or Plasma IRON + TIBC Lab Routine RLS (restless legs syndrome) Expected: 01/12/2023, Expires: 03/14/2023 [facility] Work Phone: Comment on above: Expected: 01/12/2023 , Expires: 03/14/2023 Start: 11-14-2022 NPVRFRL, Provider: Soraya Arcos, Status: Pen, Time: 4:20 PM NPVRFRL, Provider: Soraya Arcos, Status: Pen, Time: 4:20 PM [facility] Work Phone: Start: 11-10-2022 FUV, Provider: Saeed Castellanos, Status: Pen, Time: 8:50 AM FUV, Provider: Saeed Castellanos, Status: Pen, Time: 8:50 AM [facility] 250 DO Work Phone: Start: 10-23-2022 SURGNONUH, Provider: Romero Jones, Status: Pen, Time: 2:00 PM SURGNONUH, Provider: Romero Jones, Status: Pen, Time: 2:00 PM -[facility] 250 DO Work Phone: Start: 09-29-2022 EVENT [facility], Provider : [employer] SALES ASSOCIATE 1,[id number], Status: Pen, Time: 1:00 PM [facility], Provider: [employer] SALES ASSOCIATE 1,[id number], Status: Pen, Time: 1:00 PM -[facility] 250 DO Work Phone: Start: 05-21-2022 DEPRESSION ASSESSMENT DEPRESSION ASS ESSMENT [facility] Start: 01-19-2022 Influenza vaccination INFLUENZA (#1) [facility] Start: 2017 HPV TESTING HPV TESTING [facility] Start: 2017 Screening for malign ant neoplasm of cervix HPV Testing [facility] Start: 01-07-2008 PAP TESTING PAP TESTING [facility] Start: 01-07-2008 Screening for malign ant neoplasm of cervix [facility] Start: 2006 Hepatitis B Vaccine (1 of 3 - 19+ 3-dose series) Hepatitis B Vaccine (1 of 3 - 19+ 3-dose series) [facility] Start: 2005 HEPATITIS C SCREENING HEPATITIS C [facility] Start: 2005 Hepatitis C screening Hepatitis C [facility] Start: 2005 HIV SCREENING HIV SCREENING [facility]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 Brittanie is here today for evaluation of [...] seeing the movement disorder clinic here at [facility] for an opinion about her cervical [...] repeat CMP, CBC, Iron, and Vitamin B12. We did add cyclobenzaprine 5 mg at bedtime as needed for her neck tightness. She does take cyclobenzaprine 5 mg about 3 times per week. She does not take the cyclobenzaprine consistently as she is also on Mirapex. She unfortunately has not been able to see the movement disorder clinic yet for her neck tightness. Currently, she is dealing with significant neck tightness, neck pulling sensation, and decreased range of motion. The neck tightness is primarily in the trapezius muscles bilaterally. The neck pulling sensation can be either forward or backward (not side to side). If she is laying down, she feels the neck is pulled backward, but if she is upright it feels the neck is pulling forward. She feels the neck tightness has been worse over the last 3-4 months. She will utilize Diazepam 10 mg about 2-3 times per week. She does not prefer to utilize the medication if she can avoid it. Medications Reviewed cyclobenzaprine (FLEXERIL) 5 mg tablet Take 1 tablet by mouth at bedtime as needed. metoprolol succinate ER (TOPROL XL) 25 mg 24 hr tablet Take 1 tablet by mouth every afternoon. Minocycline HCl 100 mg tablet Take 100 mg by mouth once daily. Phentermine HCl 37.5 mg tablet Take 37.5 mg by mouth once daily. cetirizine (ZYRTEC) 10 mg tablet 10 mg [...] Psychiatry in her maternal grandfather and mother. IMPRESSION/PLAN: Cervical Dystonia Brittanie is noting an exacerbation of her neck tightness and associated discomfort over the last 3-4 months. She is utilizing cyclobenzaprine 5 mg as needed at bedtime, but avoids concurrent use with her Mirapex due to sedating side effect. She utilizes Diazepam 1-2 times per week if pain becomes significant. I reviewed with Brittanie that the next best step is to have her evaluated by the movement disorder clinic for consideration of botox for cervical dystonia. I have sent a message to the scheduling team to assist with scheduling her. She is in agreement to this plan. Follow up as needed I spent a total of 15 minutes on the date of the service which included preparing to see the patient, [id number] patient care, completing clinical documentation, obtaining and/or reviewing separately obtained history, and counseling and educating the patient/family/caregiver. There is no problem list on file for this patient. No orders found for this visit on 09/04/23. Maria Del Carmen Borges MSN, CAFETERIA ASSISTANT, INBOUND SALES ADVISOR-C documented in this encounter [facility] 09-04-2023 Note HNO ID: [id number] Author: MARIA DEL CARMEN BORGES APRN.ZULMA Service: ? Author Type: Nurse Practitioner Type: Progress Notes Filed: 09/04/2023 09:54 Note Text: Brittanie Garcia is a 38 year old female. Patient presents with: Follow Up Today I had the opportunity to have a virtual visit with Brittanie Garcia I have communicated my name and active licensure. The patient's identity and physical location were verified at the time of this visit. Either the patient or their legal ambulatory services representative has been informed of the risks and benefits of -- and alternatives to -- treatment through a remote evaluation and consents to proceed with the evaluation remotely. Impression/Plan from our last visit on 01/12/2023: Brittanie is here today for evaluation of [...] seeing the movement disorder clinic here at [facility] for an opinion about her cervical [...] repeat CMP, CBC, Iron, and Vitamin B12. We did add cyclobenzaprine 5 mg at bedtime as needed for her neck tightness. She does take cyclobenzaprine 5 mg about 3 times per week. She does not take the cyclobenzaprine consistently as she is also on Mirapex. She unfortunately has not been able to see the movement disorder clinic yet for her neck tightness. Currently, she is dealing with significant neck tightness, neck pulling sensation, and decreased range of motion. The neck tightness is primarily in the trapezius muscles bilaterally. The neck pulling sensation can be either forward or backward (not side to side). If she is laying down, she feels the neck is pulled backward, but if she is upright it feels the neck is pulling forward. She feels the neck tightness has been worse over the last 3-4 months. She will utilize Diazepam 10 mg about 2-3 times per week. She does not prefer to utilize the medication if she can avoid it. Medications Reviewed cyclobenzaprine (FLEXERIL) 5 mg tablet Take 1 tablet by mouth at bedtime as needed. metoprolol succinate ER (TOPROL XL) 25 mg 24 hr tablet Take 1 tablet by mouth every afternoon. Minocycline HCl 100 mg tablet Take 100 mg by mouth once daily. Phentermine HCl 37.5 mg tablet Take 37.5 mg by mouth once daily. cetirizine (ZYRTEC) 10 mg tablet 10 mg [...] Psychiatry in her maternal grandfather and mother. IMPRESSION/PLAN: Cervical Dystonia Brittanie is noting an exacerbation of her neck tightness and associated discomfort over the last 3-4 months. She is utilizing cyclobenzaprine 5 mg as needed at bedtime, but avoids concurrent use with her Mari (more content not included)... [facility] 02-19-2023 Miscellaneous Notes Images from the original note were not included. Maria Del Carmen Borges APRN.CANTEEN MANAGER You 1 minute ago (12:27 PM) Thank you. This is a normal value. PRATIBHA Louis, RN, BA Images from the original note were not included. Evonne GAMBOA BSN, RN, BA Scanned in medical records from [facility] for review documented in this encounter [facility] 02-09-2023 Miscellaneous Notes Images from the original note were not included. Maria Del Carmen Borges APRN.CNP You 2 minutes ago (10:23 AM) Reviewed. PRATIBHA Louis, RN, BA Scanneed in medical records from [facility] for review documented in this encounter [facility] 01-19-2023 Miscellaneous Notes Images from the original note were not included. Maria Del Carmen Borges, LONNY.CANTEEN MANAGER You 21 minutes ago (8:34 AM) I sent cyclobenzaprine (Flexeril) 5 mg at bedtime as needed PRATIBHA Mccullough, RN, BA documented in this encounter [facility] 01-12-2023 History of Presen t illness Narrative [...] Most likely receiving 65 units between procerus, merchandise buyer, frontalis, and temporalis muscles. Only receiving 90 [...] Tizanidine Methocarbamol Metaxalone Carisoprodol She does have [place] prescribed for the neck pain. 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 Finger extensor 5/5. Finger flexor 5/5. Pronation [...] clonus of ankles. Coordination: Finger-to- nose-finger and [id number] intact bilaterally. No ataxia of arms. No [...] seeing the movement disorder clinic here at [facility] for an opinion about her cervical [...] which included preparing to see the patient, [id number] patient care, completing clinical documentation, obtaining and/or reviewing separately obtained history, performing a medically appropriate examination, counseling and educating the patient/family/caregiver, and ordering medications, tests, or procedures. There is no problem list on file for this patient. Office Visit on 01/12/23 CBC FERRITIN BLD IRON + TIBC VITAMIN B12 BLOOD COMP METABOLIC PANEL CONSULT TO NEUROLOGY Maria Del Carmen Borges MSN, CAFETERIA ASSISTANT, INBOUND SALES ADVISOR-C 1. The nursing staff and medical assistants [...] your PCP/referring physician documented in this encounter [facility] 01-12-2023 Note HNO ID: [id number] Author: Maria Del Carmen Borges APRN.ZULMA Service: ? Author Type: Nurse Practitioner [...] Most likely receiving 65 units between procerus, merchandise buyer, frontalis, and temporalis muscles. Only receiving 90 [...] Tizanidine Methocarbamol Metaxalone Carisoprodol She does have [place] prescribed for the neck pain. 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 [facility] 08-11-2022 Instructions Nayely Limon APRN.CNP - 08/11/2022 10:44 AM EDT Please send MRI result to us. Placed a consult for neuromuscular. Please call [phone] for appointments. I would suggest to bring your MRI (CD) to this appointment. Placed a consult for functional medicine. Please call [phone] for appointments. Follow up as needed documented in this encounter [facility] 08-11-2022 History of Presen t illness Narrative Images from the original note were not included. Rheumatology FOLLOW UP VISIT Date of Service: 08/11/2022 Patient: Brittanie Garcia Medical Record: [id number] Primary Care Physician: Filiberto Ying MD Last Rheumatology visit: 07/28/2022 (with Nayely Limon) I have communicated my name and active licensure. The patient's identity and physical location were verified at the time of this visit. 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 Started Seeing pain management since April for headache and neck pain. She has [place] takes once a week. Hx of restless [...] Clinical Fibromyalgia Diagnostic Criteria questionnaire Questionnaire scores: Shedd sleepiness scale: 15 (Normal < 10) MDQ (mood disorder questionnaire): 6 (Normal < 7) PHQ (patient health questionnaire): depression 10 (Normal < 5), anxiety 9 (Normal < 5) Fibromyalgia evaluation: Wide spread pain scale (WPI) 7, symptom severity (SS) 9 The patient meets the 2016 ACR ([employer] [place] [employer]) revised criteria for fibromyalgia [...] less than an optimal response to treatment. Nayely Limon APRN.CNP Return if symptoms worsen or fail to improve. I spent a total of 45 minutes on the date of the service which included preparing to see the patient, completing clinical documentation, obtaining and/or reviewing separately obtained history, performing a medically appropriate examination, counseling and educating the patient/family/caregiver, and ordering medications, tests, or procedures. Nayely Limon APRN.CNP Rheumatology Date: August 11, 2022 Time: 8:44 AM documented in this encounter [facility] 07-28-2022 Instructions Nayely Limon APRN.CNP - 07/28/2022 1:58 PM EST Obtain lab and XR today Follow up in 10-14 days documented in this encounter [facility] 07-28-2022 History of Presen t illness Narrative Images from the original note were not included. Rheumatology CONSULTATION Date of Service: 07/28/2022 Patient: Brittanie Garcia Medical Record: [id number] Primary Care Physician: Filiberto Ying MD, MD Last Rheumatology visit: 07/28/2022 (with Nayely Limon) Referring Provider: Kenna Sheehan [address] [place] [id number] Brittanie Garcia is here today at request of Kenna Sheehan PA-C specifically for consultation of my opinion in regards to the chief complaint listed below. Correspondence will be shared today via the [employer] electronic health record or through regular mail, where applicable. 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 Started Seeing pain management since April for headache and neck pain. She has [place] takes once a week. Hx of restless [...] Take 1 mg by mouth once daily. [id number] (P-D PLUS) Tab Take 1 tablet by [...] ANTIBODY IGG - XR CHEST 2V FRONTAL/LAT Nayely Limon APRN.CNP Return in about 10 days (around 08/07/2022). I spent a total of 75 minutes on the date of the service which included preparing to see the patient, [id number] patient care, completing clinical documentation, obtaining and/or reviewing separately obtained history, performing a medically appropriate examination, counseling and educating the patient/family/caregiver, and ordering medications, tests, or procedures. Medical Decision Making: Problems: Low: Stable chronic illness Data: Unique test(s) ordered: 3+ Assessment requiring an independent historian(s) Risk: Moderate: Moderate risk from testing/treatment Medical Decision Making Level: 4 - Moderate Nayely Limon APRN.CNP Rheumatology Date: July 26, 2022 Time: 2:07 PM documented in this encounter [facility] 07-06-2022 Note CONSULTATION CONSULTATION DATE: 07/06/2022 HISTORY [...] no difference. She was also started on [place] 5/325 daily p.r.n., which she says is helpful. We obtained a cervical x-ray back in January, which shows very minimal pathology between C2 and C3 discs. At this time, procedures are not indicated. Medications includes Plymouth 5/325 daily, baclofen 10 mg b.i.d., Ambien [...] time, our clinic will just maintain her Plymouth 5/325 daily p.r.n. She will continue for treatments with [facility]. I did recommend, however, to continue with self massage and to trial home cervical traction. We will see the patient in three months' time to maintain her medications and patient is in agreement. [facility] 04-06-2022 Note CONSULTATION PAIN MANAGEMENT CONSULTATION [...] stated that today she has seen an biscuit maker due to having lock jaw episodes. 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 She describes her headaches [...] as she agrees to this plan. [facility] 03-02-2022 Note CONSULTATION CONSULTATION DATE: 03/02/2022 [...] Activities such as pushing, pulling, lying down, auditor supervisor hours and housework aggravate her pain. The [...] and all questions are answered today. [facility] 02-16-2022 Note CONSULTATION CONSULTATION DATE: 02/16/2022 [...] worsened at that time. 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 [facility] Chief complaint Narrative - Reported BRITTANIE [...] she has no rebound tachycardia.Recommendations, obtain Marcio [facility] monitoring, tilt table test, refer to either EP or syncope clinic, I can follow-up on a as needed basis, as there is no interventional necessity at this time -[facility] [address] DO Work Phone: Chief complaint Narrative [...] she has no rebound tachycardia.Recommendations, obtain Marcio [facility] monitoring, tilt table test, refer to either EP or syncope clinic, I can follow-up on a as needed basis, as there is no interventional necessity at this time [employer] Work Phone: Chief complaint Narrative - Reported [...] is no interventional necessity at this time [facility] [address] DO Work Phone: Chief complaint Narrative [...] has no rebound tachycardia.Recommendations, obtain Marcio [facility] [employer] monitoring, tilt table test, refer to either EP or syncope clinic, I can follow-up on a as needed basis, as there is no interventional necessity at this time [facility] Work Phone: Evaluation note No assessment inform ation [facility] Work Phone: Evaluation note Diagnosis Neck pain, chronic Cervicalgia [facility] Diagnosis Neck pain, chronic- Primary Cervicalgia [facility] Diagnosis Neck pain, chronic- Primary Cervicalgia Fibromyalgia Mylagia and myositis, unspecified [facility] Diagnosis Cervical dystonia- Primary Spasmodic torticollis Neck tightness Unspecified musculoskeletal disorders and symptoms referable to neck RLS (restless legs syndrome) Restless legs syndrome (RLS) [facility] Diagnosis Onset Date Resolution Status Left breast mass acute [facility] Work Phone: Evaluation note* Diagnosis Cervical dystonia- Primary Spasmodic torticollis documented in this encounter [facility] note* Diagnosis Chronic migraine without aura, with intractable migraine, so stated, with status migrainosus- Primary Neck pain Cervicalgia RLS (restless legs syndrome) Restless legs syndrome (RLS) documented in this encounter [facility] note* Diagnosis Chronic migraine without aura, with intractable migraine, so stated, with status migrainosus- Primary Neck pain Cervicalgia [facility] Additional Instructions DISCHARGE INSTRUCTIONS FOR GENERAL SURGERY YOUR ACTIVITY MAY INCLUDE: No restrictions on activities I recommend wearing a bra for support throughout the day. You will need gauze to cover the left nipple as it will drain WOUND CARE/INCISION CARE: The sutures are underneath the skin and will dissolve by themselves. The incisions are covered with surgical glue, there is no need for additional Band-Aids It is safe to get the wounds wet with soap and water in the shower, no hot tubs or tub baths. You may shower, no tub baths -Is it common to feel pulling or sharp sticking sensations in the area of incision, these sensations are a part of the normal healing process. -If you develop fever, increasing pain, redness, or swelling around the incision, please notify our office MEDICATION -Resume all previous medications that you were taking for problems unrelated to your surgery, unless informed otherwise. If there are any problems with this, please call the original prescribing doctor. If you have any other questions regarding medications, please call our office. -Over the counter medications such as Acetaminophen, Ibuprofen, Naproxen, and others may be used as directed for pain unless a prescription was provided.[facility] Work Phone: Reason for referral (narrative)* Diagnostic Procedure Only (Routine) - Closed Specialty Diagnoses / Procedures Referred By Contac t Referred To Contact XR IMAGING Diagnoses Neck pain, chronic Procedures XR CERV OTHER 4V AP/LAT/OBL RADEX SPINE CERVICAL 4 OR 5 VIEWS Nayely Limon APRN.CANTEEN MANAGER [address] [phone] Xr Imaging Referral ID Status Reason Start Date Expiration Date V isits Requested Visits Authorized [id number] Closed Auto-Generate d Referral 07/28/2022 08/27/2023 1 1 [facility] for referral (narrative)* Diagnostic Procedure Only (Routine) - Closed Specialty Diagnoses / Procedures Referred By Contac t Referred To Contact XR IMAGING Diagnoses Neck pain, chronic Procedures XR CERV OTHER 4V AP/LAT/OBL RADEX SPINE CERVICAL 4 OR 5 VIEWS Nayely Limon APRN.CANTEEN MANAGER [address] [place] [address] Xr Imaging Referral ID Status Reason Start Date Expiration Date V isits Requested Visits Authorized [id number] Closed Auto-Generate d Referral 07/28/2022 08/27/2023 1 1 [facility] for visit Narrative* Diagnostic Procedure Only (Routine) - Closed Specialty Diagnoses / Procedures Referred By Contac t Referred To Contact XR IMAGING Diagnoses Neck pain, chronic Procedures XR CERV OTHER 4V AP/LAT/OBL RADEX SPINE CERVICAL 4 OR 5 VIEWS Nayely Limon APRN.CANTEEN MANAGER [address] [phone] Xr Imaging Referral ID Status Reason Start Date Expiration Date V isits Requested Visits Authorized [id number] Closed Auto-Generate d Referral 07/28/2022 08/27/2023 1 1 [facility] Chief Complaint and Reason for Visit Chief Complaint g43.709 G25.81 R79.0 D50.9 Chief Complaint N63.20 N63.13 r55 Chief Complaint g25.81 Chief Complaint g25.81 n63.10 n63.20 Reason for Visit Left breast mass Chief Complaint g25.81 n63.10 n63.20 Bilateral Breast Masses Reason for Visit Left breast mass Chief Complaint n63.10 n63.20 Bilateral Breast Masses Bilateral Breast Masses Reason for Visit Left breast mass Chief Complaint N63.11 N63.14 Advance Directives No Advanced Directives Records Found Advance Directive Response Recorded Date/ Time Advance Directives No August 04 7:56am Advance Directive Response Recorded Date/ Time Advance Directives No August 04 6:56am Reason for Referral Specialty Diagnoses / Procedures Referred By Contac t Referred To Contact Neurology Diagnoses Neck pain, chronic Procedures CONSULT TO NEUROLOGY OFFICE/OUTPATIENT [facility] 60-74 MINUTES Nayely Limon APRN.CANTEEN MANAGER [address] [phone] Referral ID Status Reason Start Date Expiration Date Visits Requested Visits Authorized [id number] Authorized PCP Requested Referral 08/11/2022 08/11/2023 1 1 Specialty Diagnoses / Procedures Referred By Contac t Referred To Contact Diagnoses Fibromyalgia Procedures CONSULT TO FUNCTIONAL MEDICINE OFFICE/OUTPATIENT [facility] 60-74 MINUTES Nayely Limon APRN.CANTEEN MANAGER [address] [phone] Referral ID Status Reason Start Date Expiration Date Visits Requested Visits Authorized [id number] Authorized PCP Requested Referral 08/11/2022 08/11/2023 1 1 Specialty Diagnoses / Procedures Referred By Contac t Referred To Contact Neurology Diagnoses Cervical dystonia Neck tightness Procedures CONSULT TO NEUROLOGY OFFICE/OUTPATIENT [facility] 60-74 MINUTES Maria Del Carmen Borges, CAFETERIA ASSISTANT.CANTEEN MANAGER [id number] [place] [phone] Referral ID Status Reason Start Date Expiration Date Visits Requested Visits Authorized [id number] Pending Review PCP Requested Referral 01/12/2023 01/12/2024 1 1 Specialty Diagnoses / Procedures Referred By Contac t Referred To Contact Neurology Diagnoses Cervical dystonia Procedures CONSULT TO NEUROLOGY OFFICE/OUTPATIENT [facility] 60 MINUTES Maria Del Carmen Borges, CAFETERIA ASSISTANT.CANTEEN MANAGER [phone] [place] [address] Referral ID Status Reason Start Date Expiration Date Visits Requested Visits Authorized [id number] Authorized PCP Requested Referral 09/04/2023 09/03/2024 1 1 Summary Purpose Family History Unknown [...] Filiberto Ying MD Primary Care Provider Active Dano Pyle DO Attending Provider Active Team Status: Inactive Member Role Status Dates Filiberto Ying MD Primary Care Provider Active Kenna Sheehan PA-C Attending Provider Active Recycle Coordinator Relationship Specialty Start Date End Date Filiberto Ying MD PCP - General Family Medicine 06/05/12 Kenna Sheehan PA-C [address] [address] Referring Neurology 07/19/22 Recycle Coordinator Relationship Specialty Start Date End Date Filiberto Ying MD PCP - General Family Medicine 06/05/12 Kenna Sheehan PA-C [address] [place] [address] Referring Neurology 07/19/22 Recycle Coordinator Relationship Specialty Start Date End Date Filiberto Ying MD PCP - General Family Medicine 06/05/12 Kenna Sheehan PA-C [address] [address] Referring Neurology 07/19/22 Recycle Coordinator Relationship Specialty Start Date End Date Filiberto Ying MD PCP - General Family Medicine 06/05/12 Kenna Sheehan PA-C [address] [address] Referring Neurology 07/19/22 Recycle Coordinator Relationship Specialty Start Date End Date Filiberto Ying MD PCP - General Family Medicine 06/05/12 Kenna Sheehan PA-C [address] [place] [id number] Referring Neurology 07/19/22 Recycle Coordinator Relationship Specialty Start Date End Date Filiberto Ying MD PCP - General Family Medicine 06/05/12 Kenna Sheehan PA-C [address] [place] [phone] Referring Neurology 07/19/22 Recycle Coordinator Relationship Specialty Start Date End Date Filiberto Ying MD PCP - General Family Medicine 06/05/12 Kenna Sheehan PA-C [address] [place] [id number] Referring Neurology 07/19/22 Team Status: Inactive Member Role Status Dates Filiberto Ying MD Primary Care Provider Active Maria Del Carmen Borges APRN INBOUND SALES ADVISOR- Attending Provider Active Recycle Coordinator Relationship Specialty Start Date End Date Filiberto Ying MD PCP - General Family Medicine 06/05/12 Kenna Sheehan PA-C [address] [place] [phone] Referring Neurology 07/19/22 Recycle Coordinator Relationship Specialty Start Date End Date Filiberto Ying MD PCP - General Family Medicine 06/05/12 Kenna Sheehan PA-C [address] [id number] Referring Neurology 07/19/22 Recycle Coordinator Relationship Specialty Start Date End Date Filiberto Ying MD PCP - General Family Medicine 06/05/12 Kenna Sheehan PA-C [address] [id number] Referring Neurology 07/19/22 Recycle Coordinator Relationship Specialty Start Date End Date Filiberto Ying MD PCP - General Family Medicine 06/05/12 Kenna Sheehan PA-C [address] [id number] Referring Neurology 07/19/22 Recycle Coordinator Relationship Specialty Start Date End Date Filiberto Ying MD PCP - General Family Medicine 06/05/12 Kenna Sheehan PA-C [address] [address] Referring Neurology 07/19/22 Recycle Coordinator Relationship Specialty Start Date End Date Filiberto Ying MD PCP - General Family Medicine 06/05/12 Kenna Sheehan PA-C [address] [place] [address] Referring Neurology 07/19/22 Recycle Coordinator Relationship Specialty Start Date End Date Filiberto Ying MD PCP - General Family Medicine 06/05/12 Kenna Sheehan PA-C [address] [place] [address] Referring Neurology 07/19/22 Team Status: Inactive Member Role Status Dates Filiberto Ying MD Primary Care Provider Active Start: January 28, 2024 End: January 28, 2024 Dano Pyle DO Attending Provider Active Start: January 28, 2024 End: January 28, 2024 Goals (unrecognized section and content) Goals may [...] or prosecute any alcohol or drug abuse patient.[facility] the event this information is protected by the Federal Confidentiality of Alcohol and Drug Abuse Patient Records regulations: The Federal rules restrict any use of the information to criminally investigate or prosecute any alcohol or drug abuse patient.[facility] the event this information is protected by the Federal Confidentiality of Alcohol and Drug Abuse Patient Records regulations: The Federal rules restrict any use of the information to criminally investigate or prosecute any alcohol or drug abuse patient.[facility] the event this information is protected by the Federal Confidentiality of Alcohol and Drug Abuse Patient Records regulations: The Federal rules restrict any use of the information to criminally investigate or prosecute any alcohol or drug abuse patient.[facility] the event this information is protected by the Federal Confidentiality of Alcohol and Drug Abuse Patient Records regulations: The Federal rules restrict any use of the information to criminally investigate or prosecute any alcohol or drug abuse patient.[facility] the event this information is protected by the Federal Confidentiality of Alcohol and Drug Abuse Patient Records regulations: The Federal rules restrict any use of the information to criminally investigate or prosecute any alcohol or drug abuse patient.[facility] the event this information is protected by the Federal Confidentiality of Alcohol and Drug Abuse Patient Records regulations: The Federal rules restrict any use of the information to criminally investigate or prosecute any alcohol or drug abuse patient.[facility] the event this information is protected by the Federal Confidentiality of Alcohol and Drug Abuse Patient Records regulations: The Federal rules restrict any use of the information to criminally investigate or prosecute any alcohol or drug abuse patient.[facility] the event this information is protected by the Federal Confidentiality of Alcohol and Drug Abuse Patient Records regulations: The Federal rules restrict any use of the information to criminally investigate or prosecute any alcohol or drug abuse patient.[facility] the event this information is protected by the Federal Confidentiality of Alcohol and Drug Abuse Patient Records regulations: The Federal rules restrict any use of the information to criminally investigate or prosecute any alcohol or drug abuse patient.[facility] the event this information is protected by the Federal Confidentiality of Alcohol and Drug Abuse Patient Records regulations: The Federal rules restrict any use of the information to criminally investigate or prosecute any alcohol or drug abuse patient.[facility] the event this information is protected by the Federal Confidentiality of Alcohol and Drug Abuse Patient Records regulations: The Federal rules restrict any use of the information to criminally investigate or prosecute any alcohol or drug abuse patient.[facility] the event this information is protected by the Federal Confidentiality of Alcohol and Drug Abuse Patient Records regulations: The Federal rules restrict any use of the information to criminally investigate or prosecute any alcohol or drug abuse patient.[facility] the event this information is protected by the Federal Confidentiality of Alcohol and Drug Abuse Patient Records regulations: The Federal rules restrict any use of the information to criminally investigate or prosecute any alcohol or drug abuse patient.[facility] the event this information is protected by the Federal Confidentiality of Alcohol and Drug Abuse Patient Records regulations: The Federal rules restrict any use of the information to criminally investigate or prosecute any alcohol or drug abuse patient.[facility] the event this information is protected by the Federal Confidentiality of Alcohol and Drug Abuse Patient Records regulations: The Federal rules restrict any use of the information to criminally investigate or prosecute any alcohol or drug abuse patient.[facility] the event this information is protected by the Federal Confidentiality of Alcohol and Drug Abuse Patient Records regulations: The Federal rules restrict any use of the information to criminally investigate or prosecute any alcohol or drug abuse patient.[facility] the event this information is protected by the Federal Confidentiality of Alcohol and Drug Abuse Patient Records regulations: The Federal rules restrict any use of the information to criminally investigate or prosecute any alcohol or drug abuse patient.[facility] the event this information is protected by the Federal Confidentiality of Alcohol and Drug Abuse Patient Records regulations: The Federal rules restrict any use of the information to criminally investigate or prosecute any alcohol or drug abuse patient.[facility] Campus[facility] the event this information is protected by the Federal Confidentiality of Alcohol and Drug Abuse Patient Records regulations: The Federal rules restrict any use of the information to criminally investigate or prosecute any alcohol or drug abuse patient.[facility] the event this information is protected by the Federal Confidentiality of Alcohol and Drug Abuse Patient Records regulations: The Federal rules restrict any use of the information to criminally investigate or prosecute any alcohol or drug abuse patient.[facility] Reason for Visit (unrecogniz ed section and content) Reason Comments Neck Pain Reason Comments Neck Pain Follow up Reason Comments New Patient Reason Comments Results [facility] Reason Comments Results [facility] Reason Comments Follow Up Reason Onset Date Comments Refill Request 09/15/2023 Reason Comments Request Outside Medical Records Reason Comments Cervical Dystonia Specialty Diagnoses / Procedures Referred By Contac t Referred To Contact Neurology Diagnoses Cervical dystonia Procedures CONSULT TO NEUROLOGY OFFICE/OUTPATIENT [facility] 60 MINUTES Maria Del Carmen Borges, LONNY.CANTEEN MANAGER [id number] [place] [address] Referral ID Status Reason Start Date Expiration Date V isits Requested Visits Authorized [id number] Closed PCP Requested Referral 09/04/2023 09/03/2024 1 1 Reason Onset Date Comments Refill Request 10/18/2023 Reason Comments Insurance Authorization Botox Reason Comments Botox Injection Specialty Diagnoses / Procedures Referred By Contac t Referred To Contact ADULT NEUROLOGY Diagnoses Chronic migraine without aura, intractable, with status migrainosus Procedures BOTULINUM TOXIN A PER 1 UNIT CHEMODERVATE FACIAL/TRIGEM/CERV MUSC MIGRAINE Harman Sullivan MD [address] [place] [address] Conchis Huffman [address] [place] [address] Referral ID Status Reason Start Date Expiration Date V isits Requested Visits Authorized [id number] Authorized 10/11/2023 10/14/2024 99 99 Reason Comments Appointment INFORMATION SOURCE (unrecogn ized section and content) DATE CREATED AUTHOR 09/07/2022 [facility] DATE CREATED AUTHOR AUTHOR'S ORGANIZ ATION 11/15/2022 [employer] DATE CREATED AUTHOR AUTHOR'S ORGANIZ ATION 01/01/2023 [facility] DATE CREATED AUTHOR AUTHOR'S ORGANIZ ATION 02/04/2023 [facility] DATE CREATED AUTHOR AUTHOR'S ORGANIZ ATION 07/30/2023 [facility] DATE CREATED AUTHOR AUTHOR'S ORGANIZ ATION 12/06/2023 [facility] DATE CREATED AUTHOR AUTHOR'S ORGANIZ ATION 01/30/2024 [facility] FOR RECORDS PERTAINING TO PATIENTS WHO ARE [...] BE BASED ON THE PRIMARY CLINICAL RECORDS. [employer] [facility]. provides no warranty or guarantee of the accuracy or completeness of information in this document.
--- NOTE | 2024-01-30 08:00 | P.CN_ITS ---
Consult Note: HPI Data of Consult Patient: known to practice within the last 3 years Requesting Physician: Jacqui Anthony NP Primary Care Provider: Danny Obrien MD Consult Narrative Reason for consult: f/u Narrative: Brittanie Bradley a pleasant 38 year old female presents for evaluation and management of chronic neck pain and migraines, today patient rating pain 4/10 throbbing ache in neck. Patient continues to follow up with neurology and movement disorder specialists at [facility] who are administering botox and prescribing a variety of medications for the patient. Patient has benefitted from occasional norco for moderate to severe pain unresponsive to tylenol or ibuprofen. Patient also recently prescribed diclofenac 50mg BID PRN for pain with mild benefit combined with hydrocodone acetaminophen. Patient reports daily headaches and neck pain, hx of cervical facet arthropathy and DDD. has completed greater than 6 weeks of PT in the past without benefit, at this time due to work and personal schedule she cannot engage in PT. cc:: CC: Jacqui Anthony NP Review of Systems ROS Status of ROS 10 or more systems reviewed and unremark able except as noted in history and below Musculoskeletal Reports: neck pain PFSH PFSH Social History Smoking status: Never smoker Meds Home Medications and Allergies Home Medications ?Medication ?Instructions ?Recorded ?Confirmed ?Type cetirizine 10 mg tablet (Allergy 10 mg PO DAILY 03/21/23 01/22/24 History Relief (cetirizine)) diazepam 10 mg tablet 10 mg PO DAILY PRN muscle spasm 03/21/23 01/22/24 History hydrocodone 5 mg-acetaminophen 325 0.5 tab PO DAILY PRN pain 03/21/23 01/22/24 History mg tablet hydrocodone 5 mg-acetaminophen 325 1 tab PO DAILY PRN pain #14 tabs 03/21/23 01/22/24 Rx mg tablet onabotulinumtoxinA 200 unit 300 unit IM .every 3 months 03/21/23 01/22/24 History solution for injection (Botox) pramipexole 1 mg tablet (Mirapex) 1 mg PO DAILY 03/21/23 01/22/24 History cyclobenzaprine 5 mg tablet 5 mg PO TID PRN muscle spasm #10 01/22/24 Rx tabs diclofenac sodium 75 mg 75 mg PO BID PRN pain #14 tabs 01/22/24 Rx tablet,delayed release minocycline 50 mg capsule 50 mg PO DAILY 01/22/24 01/22/24 History Allergies Allergy/AdvReac Type Severity Reaction Status Date / Time calcium [From DHEA] Allergy Severe Difficulty Verified 05/13/23 05:16 Breathing calcium carbonate [From DHEA] Allergy Severe Difficulty Verified 05/13/23 05:16 Breathing prasterone (DHEA) [From DHEA] Allergy Severe Difficulty Verified 05/13/23 05:16 Breathing caffeine Allergy Mild Vomiting Verified 05/13/23 05:16 Exam Constitutional Documenting provider has reviewed patient's vital signs: yes Common normals: no apparent distress, oriented x3, healthy appearing, alert and well nourished General appearance: cooperative HENMT Common normals: normocephalic, hearing grossly normal bilaterally and moist oral mucous membranes Head and scalp: normocephalic Eye Common normals: PERRL Pupil: PERRL Neck & C-Spine Common normals: full ROM General: normal visual inspection Cervical spine: pain with cervical ROM, cervical spine tenderness and trapezius muscle tenderness Other: positive facet loading tenderness over bilateral C2-4 facets negative spurlings, sensation in BUE Chest Common normals: inspection of chest normal Respiratory Common normals: normal respiratory effort, no retractions and no use of accessory muscles Neuro Common normals: oriented x3, CN's II-XII intact bilaterally, moves all extremities, no focal motor deficits, no sensory deficits noted and deep tendon reflexes 2+ bilaterally Sensorium/orientation: alert Motor exam: strength 5/5 throughout and no movement abnormalities noted Psych Common normals: mental status grossly normal, thought process normal, cooperative, affect normal, speech normal and activity/motor behavior normal Speech: normal speech Thought process: normal thought process Results Additional Findings Additional findings: If on a controlled substance or opioids, I have checked an [place] report on this patient and there are no aberrancies noted in the prescribing history.??If on a controlled substance or opioid a drug screen was completed and reviewed within the last year, and if there has not been a drug screen completed we ordered one today to monitor higher risk, state monitored pain medication use. As part of providing excellent, safe, comprehensive care, the following was completed at our patient's visit: 1. A medication reconciliation and review to ensure accurate knowledge of current/active medications, including asking our patients to inform us about any [id number] medications or herbal remedies/nutritional supplements/alternative remedies. 2. A review to specifically ensure our patients have had annual screening for screening for depression, screening for tobacco use, and screening for unhealthy alcohol use. For concerning screenings had a discussion with the patient, provided patient education, and recommended follow-up with primary care provider when appropriate. If patient noted with a risk of falling, they received education on strength, gait, and balance training to prevent future risk of falling. Assessment and Plan Assessment and Plan (1) Cervical spondylosis: (2) Degenerative disc disease, cervical: (3) Migraines: (4) Neck pain: Plan plan for bilateral C2-3 C3-4 facet medial branch block x2 working towards RFA for chronic axial neck pain secondary to cervical spondylosis and facet arthropathy failing to respond to PT, tylenol, NSAIDs, heat/ice, and responding to PRN norco with mild relief. continue f/u with neurology, upcoming repeat botox continue diclofenac 50mg BID PRN pain, risks vs benefits reviewed denies side effects continue norco 5-325mg daily PRN severe breakthrough pain 14 tabs to last 3 months f/u after each injection
== END 2024-01-30 07:41 | disposition home or self-care (01) ==
PROVIDERS: PCP Family Medicine; Visit Provider Nurse Practitioner
DX: M47.812 Spondylosis without myelopathy or radiculopathy, cervical region (principal); M50.30 Other cervical disc degeneration, unspecified cervical region; G43.909 Migraine, unspecified, not intractable, without status migrainosus
CPT/HCPCS: G0463

== ENCOUNTER 2024-02-18 07:13 | Day surgery (SDC) | payer OTHER, SELFPAY ==
--- OUTSIDE RECORDS SUMMARY | 2024-02-18 07:15 | XMS_ITS | CCD ---
Author Organization [facility] Care Team Providers Care Hotel Registration Clerk Name Role Phone MD Filiberto Ying Primary Care Provider [phone] PURVI Sheehan Attending Provider [phone] STEPAN .DR DE LOS SANTOS Primary Care Unavailable LAKSHMIPATHY [...] ., CASSI Consulting Unavailable COLLAZO ., DR HCARISMA Mckoy Attending Unavailable COLLAZO ., DR CHARISMA Mckoy Attending Unavailable HOY ., DR DE LOS SANTOS Primary Care Unavailable VIDAL ., CASSI Consulting Unavailable COLLAZO ., DR CHARISMA Mckoy Admitting Unavailable COLLAZO ., DR CHARISMA Mckoy Admitting Unavailable HOY ., DR DE LOS SANTOS Primary Care Unavailable VIDAL ., CASSI Consulting Unavailable COLLAZO ., DR CHARISMA Mckoy Attending Unavailable Filiberto Ying Unavailable Unavailable Unavailable MD Filiberto Ying Primary Care Provider [phone] DO Dano Pyle Attending Provider DO Roseanne Castellanos Attending Provider [phone] MD Romero Jones Referring Provider Isrrael, Dr. Soraya Mojica Attending Unavailab le Isrrael, Dr. Soraya Mojica Referring Unavailab le Stepan, Dr. Filiberto Fuller Primary Care Unavail able Unavailable Unavailable Filiberto Ying MD Primary Care Provider [phone] Kenna Sheehan PA-C Unavailable [phone] Tal DIALLO, Dr. Saeed Jean-Baptiste Attending Unavailable Stepan, Dr. Filiberto Fuller Primary Care Unavail able Emanuel, Dr. Saeed Stahl Referring Unava ilneris Castellanos, Dr. Saeed Stahl Attending Unava ilable Stepan, Dr. Filiberto Fuller Primary Care Unavail able Emanuel, Dr. Saeed Stahl Referring Unava ilneris Castellanos, Dr. Saeed Stahl Referring Unava ilneris Ying, Dr. Filiberto Fuller Primary [facility] Unavail able Emanuel, Dr. Saeed Stahl Attending [...] MD Filiberto Biggs Primary Care Provider LONNY Borges Attending Provider MD Filiberto Ying Primary Care Provider [phone] LONNY Borges Attending Provider DO Dano Pyle Attending Provider [phone] MD Filiberto Ying Primary Care Provider [phone] DANO PYLE Attending Unavailable HOY, FILIBERTO M Referring Unavailable VALERIO SANZ Attending Unavailable Filiberto Ying MD Primary Care Provider [phone] MD Filiberto Ying Primary Care Provider [phone] DO Dano Pyle Attending Provider [phone] Maria Del Carmen Borges Attending Unavailable Maria Del Carmen Borges P Admitting Unavailable Hoy, Filiberto M Primary Care Unavailable Itzkowitz, Dano Admitting Unavailable Itzkowandatz, Dano Attending Unavailable Hoy, Filiberto M Primary Care Unavailable Itzkowitz, Dano Attending Unavailable Itzkowitz, Dano Admitting Unavailable Hoy, Filiberto M Primary Care Unavailable Itzkojonel, Dano Attending Unavailable Itzkojonel, Dano Admitting Unavailable Hoy, Filiberto M Primary Care Unavailable Itzkojonel, Dano Attending Unavailable Itzkowitz, Dano Admitting Unavailable Hoy, Filiberto M Primary Care Unavailable LAURIE, HARMAN Attending Unavailable MARIA DEL CARMEN BORGES Referring Unavailable HOY, FILIBERTO M Primary Care Unavailable WEISSWAGN, HARMAN Referring Unavailable WEISSHARMAN PIÑA Attending Unavailable HOY, FILIBERTO M Primary Care Unavailable WEISSWANG, HARMAN Attending Unavailable HOY, FILIBERTO M Primary Care Unavailable WEISSFELD, HARMAN Referring Unavailable MARIA DEL CARMEN BORGES Attending Unavailable HOY, FILIBERTO M Primary Care Unavailable Allergies Allergy Classification Reported Allergen(s) Allergy Type Date of Onset Reaction(s) Facility (20 sources) Caffeine; Translations: [Caffeine] Drug Allergy 3 Vomiting [facility] (20 sources) DHE; Translations: [Dhe] Allergy to substance 3 Shortness of Breath [facility] (20 sources) Adhesive agent; Translations: [ADHESIVE] Propensity to adverse reactions to drug 3 Other: See Asa, Yamilet [facility] (15 sources) Adhesive Tape Allergy to substance (finding) 3 Rash [facility] (9 sources) prasterone; Translations: [DHEA CAPS] Drug Allergy -[facility] [place] [address] DO Work Phone: (15 sources) Metoprolol; Translations: [METOPROLOL] Drug Allergy 3 Swelling [facility] (2 sources) Metoclopramide Drug Allergy 3 Worsens restless leg [facility] Medications Current Medications Medication Drug Class(es) [...] (NORCO) 5-325 mg per tablet as needed. 06/29/2022 Active Start: 10-22-2019 End: 12-24-2020 take 1 tablet by mouth every six hours Hydrocodone-Acetaminophen Discontinued 1 TAB PO Q6H 10 2 August 16, 2020 December 24, 2020 12:15pm Start: 10-14-2019 End: 12-24-2020 take 1 tablet by mouth every eight hours Hydrocodone-Acetaminophen ([place]) 5-325 mg tablet Discontinued 1 TAB PO Q8H 10 2 October 14, 2019 December 24, 2020 12:15pm Comment on above: as needed. baclofen 10 mg oral tablet (20 sources) gamma-Aminobutyric Acid-ergic Agonist Start: 10-18-2023 End: 10-18-2023 take 1 tablet by mouth once daily as needed baclofen 10 mg tablet Take 1 tablet by mouth once daily as needed. 30 tablet 10/18/2023 Active Start: 06-28-2022 End: 01-19-2023 take 1 tablet by mouth every eight hours as needed baclofen (LIORESAL) 10 mg tablet Take 10 mg by mouth every 8 hours as needed. 10 in AM, 20 in PM 0 06/28/2022 01/19/2023 Discontinued Comment on above: Take 10 mg by mouth every 8 hours as needed. 10 in AM, 20 in PM cetirizine hydrochloride 10 mg oral tablet (20 sources) Histamine-1 Receptor Antagonist Start: 10-14-19 End: 05-01-20 cetirizine (ZYRTEC) 10 mg tablet 10 mg once daily. 07/27/2022 Active Comment on above: 10 mg once daily. cyclobenzaprine hydrochloride 5 mg oral tablet (20 sources) Muscle Relaxant Start: 09-17-19 take 1 tablet by mouth every twenty-four hours as needed cyclobenzaprine (FLEXERIL) 5 mg tablet Take 1 tablet by mouth at bedtime as needed. 30 tablet 1 09/17/2023 Active Start: 01-19-2023 End: 09-15-2023 take 1 tablet by mouth every twenty-four [...] tablet (20 sources) Benzodiazepine Start: 06-13-19 take 1 tablet by mouth every twelve hours as needed diazePAM (VALIUM) 10 mg tablet Take 10 mg by mouth twice daily as needed. 06/13/2022 Active Comment on above: Take 10 mg by mouth twice daily as needed. gabapentin 600 mg oral tablet (10 sources) Anti-epileptic Agent Start: 09-21-19 End: 03-19-20 [...] sources) Nonergot Dopamine Agonist Start: 06-28-19 take 2 tablets by mouth once daily at bedtime pramipexole (MIRAPEX) 1 mg tablet Take 2 mg by mouth daily at bedtime. 06/28/2022 Active Start: 06-28-2022 take 1 mg by mouth o nce daily at bedtime Pramipexole Active 1 MG PO Daily at bedtime May 01, 2023 1:00am Start: 10-14-2019 End: 05-01-2023 take 1 tablet [...] (Normalized) Sig (Original) onabotulinumtoxina 100 unt injection (4 sources) Acetylcholine Release Inhibitor Start: 4 End: 4 inject 1 dose by intramuscular injection every 30 days 200 Units, INTRAMUSCULAR, ONCE (UP TO 30 DAYS AMB), 1 dose, On Sun01/30/24 at 1500, This record documents the total dose provided to patient. See progress note for specific locations and amounts administered. REFRIGERATE - Pharmaceutical Waste: Lab Pack - Start: 01-30-2024 End: 01-30-2024 onabotulinum toxin type A 20 0 Units injection (BOTOX) Start: 10-31-2023 End: 10-31-2023 onabotulinum toxin type A 20 0 Units injection (BOTOX) Start: 10-31-2023 End: 10-31-2023 onabotulinum toxin type A 20 0 Units injection (BOTOX) sugar-free cholestyramine resin 4000 mg powder for oral suspension (7 sources) Bile Acid Sequestrant Start: 12-24-2020 End: 05-01-2023 take 1 dose by mouth once Cholestyramine-Aspartame (Questran Light) 4 gram powder Discontinued 4 [...] 2019 12:00am December 24, 2020 12:23pm L Norgest/E.Estradio l-E.Estrad (7 sources) Progestin, Estrogen, Progestin-contain ing Intrauterine Device Start: 10-14-2019 End: 05-01-2023 take 1 tablet by mouth once daily L Norgest/E.Estradiol-E.Estra d Discontinued 1 TAB PO Daily October 14, [...] (10 sources) beta-Adrenergic Jessie Start: 023 End: 024 take 1 tablet by mouth every hour [...] Take 100 mg by mouth once daily. Active Comment on above: Take 100 mg by mouth once daily. pantoprazole 40 mg delayed release oral tablet (7 sources) Proton Pump Inhibitor Start: 10-14-19 End: 05-01-20 23 take 40 mg by mouth once daily Pantoprazole Discontinued 40 MG PO Daily October 14, 2019 12:00am May 01, 2023 12:55pm phentermine hydrochloride 37.5 mg oral tablet (9 sources) Sympathomimetic Amine Anorectic Start: 01-06-20 23 End: 09-21-19 24 take 1 tablet by mouth once daily Phentermine HCl 37.5 mg tablet Take 37.5 mg by mouth once daily. 0 01/05/2023 09/21/2023 Discontinued Comment on above: Take 37.5 mg by mout h once daily. Rbsakojt-Gx-Pkt-Fe-FA (P-D CARTER PLUS) Tab (2 sources) End: 08-02-19 23 take 1 tablet by mouth once daily Dldmhmgv-Ml-Rgb-Fe- FA (P-D PLUS) Tab Take 1 tablet by mouth once daily. 0 08/01/2022 Discontinued (Course of therapy completed) take 1 tablet by mouth once ute y Tkhhgbfp-Tw-Dkq-Fe-FA (P-D PLUS) Tab Take 1 tablet by [...] and unspecified hyperlipidemia] Chronic Headache; including migraine (4 sources) Migraine, unspecified, not intractable, without status [...] Spondylosis; intervertebral disc disorders; other back problems (12 sources) Chronic neck pain; Translations: [Cervicalgia] Onset: [...] Test Name Value Interpretation Reference Range Facility [facility] 01-30-2024 CNOV Office Visit ([facility] ) BRITTANIE GARCIA ([id number]) 1985 F Date Time Provider Department 01/30/24 2:00 PM HARMAN SULLIVAN [facility] During your visit today, we recorded the following information about you: Pulse Blood pressure Weight Height 91/minute 115/76 70.5 kg 1.575 m Harman Sullivan MD 01/30/2024 2:36 PM Signed BOTOX PREEMPT PROTOCOL Total headache days per month: Slight ACOSTA daily, around once a month gets a bad episode of headache / spasm which is a significant improvement Severity of headaches: Mild, Moderate, and Severe Botox effective: YES The risks, benefits and anticipated outcomes of the procedure, the risks and benefits of the alternatives to the procedure, and the roles and tasks of the personnel to be involved, were discussed with the patient. The patient has given written informed consent to the procedure and agrees to proceed. Yes Treatment # 2 with me, 10+ in past BOTOX brought in by patient? No Lot #: [id number] Exp: 03/2026 Dilution: 5 units/0.1 ml (100 unit vial [...] Optional follow pain # units L R Bag Shop Worker 10 units divided in 2 sites XXXXXXX Procerus 5 units in 1 site XXXXXXX Frontalis 20 units divided in 4 sites XXXXXXX Temporalis 40 units divided in 8 sites Occipitalis 30 units divided in 6 sites Cervical PSPs 20 units divided in 4 sites XXXXXXX Trapezius 40 units right / 35 units left over 3 sites each Total 200 units Total Units used: 200 Total Units wasted: 0 Patient did tolerate procedure. Change in Treatment Plan? No Harman Sullivan MD Referring Provider: HARMAN SULLIVAN [[id number]] Allergies As of Date: 01/30/2024 Noted Allergy Reaction DHE 06/13/2012 12 - Shortness of Breath ADHESIVE 07/28/2022 2 - Rash 14 - Other: See Comments Comments: Rash and blisters CAFFEINE 06/13/2012 11 - Vomiting METOPROLOL 05/01/2023 7 - Swelling Date Reviewed: 01/30/2024 Reviewed by: Manolo Luther MA - Fully Assessed Reason for Visit: Botox Injection [373] Primary Visit Diagnosis:Chronic migraine without aura, with intractable migraine, so stated, with status migrainosus [G43.711] Other Visit Diagnosis:Neck pain [M54.2] Order(s):[] onabotulinum toxin type A 200 Units injection (BOTOX)Disp: Rfl: Prescriptions as of 01/30/2024 - baclofen 10 mg tablet Take 1 [...] at bedtime. Problem List As Of Date: 01/30/2024 (None) Prescriptions ordered this encounter Disp Refills Start End ONABOTULINUMTOXINA 100 UNIT SOLUTION* 01/30/2024 01/30/2024 Route: INTRAMUSCULA Disposition: Return in about 3 months (around 04/30/2024). Follow-up and Disposition History for Encounter Date Provider Department Center 01/30/2024 [id number], TED [facility] Encounter Status:Closed by HARMAN SULLIVAN on 01/30/24 Normal [facility] US breast RT limitedon 01-27 US breast RT limited [facility] [place] [address] Ultrasound Report Signed Patient: Brittanie Garcia MR#: [id number] : 1985 Acct:[id number] Age/Sex: 39 / F ADM Date: 01/28/24 Loc: [facility] Room: Type: [facility] Attending Dr: Dano Pyle DO Ordering Provider: [...] Binta Elaine M.D.01/28/2024 8:30 AM Dictation Location: [facility] Tech: Alayna Choudhary Transcribed By: JADEN 01/28/24829 Dictated By: Binta Elaine MD 01/28/24811 Signed By: 01/28/24829 Normal [facility] CNOVon 10-31-2023 CNOV Office Visit ([facility] ) BRITTANIE GARCIA ([id number]) 1985 F Date Time Provider Department 10/31/23 10:30 AM HARMAN SULLIVAN [facility] During your visit today, we recorded [...] BOTOX brought in by patient? No Lot #:[id number] Exp: 10/2025 Dilution: 5 units/0.1 ml (100 [...] Optional follow pain # units L R Bag Shop Worker 10 units divided in 2 sites XXXXXXX [...] Harman Sullivan MD Referring Provider: HARMAN SULLIVAN [[id number]] Allergies As of Date: 10/31/2023 Noted Allergy [...] for Encounter Date Provider Department Center 10/31/2023 [id number], TED [facility] Encounter Status:Closed by HARMAN SULLIVAN on 10/31/23 Normal [facility] Salima 10-31-2023 CNPN Telephone ([facility]) BRITTANIE GARCIA ([id number]) 1985 F Date Time Provider Department 10/31/23 HARMAN SULLIVAN [facility] During your visit today, we recorded [...] Encounter Status:Closed by ESVIN VELAZQUEZ on 12/06/23 Normal [facility] Telephone ([facility]) JOSEBRITTANIE ([id number]) 1985 F Date Time Provider Department 10/31/23 HARMAN SULLIVAN [facility] During your visit today, we recorded the following information about you: Esvin Velazquez 10/31/2023 11:03 AM Signed Patient brought in [facility] paperwork for Dr. Sullivan to fill [...] Encounter Status:Closed [facility] ESVIN [facility]QUE[facility]) BRITTANIE GARCIA ([id number]) 1985 F Date Time Provider Department 10/11/23 HARMAN SULLIVAN [facility] During your visit today, we recorded the following information about you: Manolo Luther MA 10/11/2023 12:03 PM Signed Prior Authorization PENDING Medication/ Treatment: BOTOX Submitted Via Epic Referral Attempted to submit via phone to expedite request, but plan does not allow this. Pallavi Duron, GINA 10/19/2023 11:43 AM Addendum Per Epic referral, Botox is approved. 10/16/23 to 10/14/24 200 units every 12 weeks Called patient, and she is agreeable to using the SunOctober 30 slot to get her Botox in [place]. Per Dr. Sullivan, she does not need to then also keep her November 05 appt. Manolo Luther MA 10/22/2023 8:14 AM Signed Prior Auth Determination: Approved Medication/ Treatment: BOTOX Authorization Information/ Time Range: Botox, J0585 Approval Date Range: 10/16/2023 to 10/14/2024 Approval #: [id number] Dose AND Frequency: 200 units Q 12 [...] Encounter Status:Closed by PALLAVI DURON on 10/19/23 [facility] CNOVon 09-21-2023 CNOV Office Visit ([facility] ) BRITTANIE GARCIA ([id number]) 1985 F Date Time Provider Department 09/21/23 8:30 AM HARMAN SULLIVAN [facility] During your visit today, we recorded the following information about you: Pulse Blood pressure Weight Height 84/minute 109/74 68.4 kg 1.575 m Harman Sullivan MD 09/21/2023 2:50 PM Signed NEW PATIENT EVALUATION Subjective HPI Brittanie Garcia is a 38 year old right-handed female who presents for evaluation of previously diagnosed cervical dystonia. Mraia Del Carmen Borges CNP is the referring [...] Actual fi (more content not included)... [facility] ([facility]) BRITTANIE GARCIA ([id number]) 1985 F Date Time Provider Department 09/21/23 HARMAN SULLIVAN [facility] During your visit today, we recorded the following information about you: Manolo Luther MA 09/21/2023 8:46 AM Signed Requested image transfer from [facility] for most recent head/ neck imaging. Manolo Luther MA 09/21/2023 2:42 PM Signed Faxed record request form to [facility] [phone]. Manolo Luther MA 10/03/2023 3:08 PM Signed RECORDS RECEIVED via FAX: From: [facility] Placed at desk/tray for review. [...] Reason for Visit: Request Outside Medical Records [[id number]] Prescriptions as of 10/03/2023 - baclofen 10 [...] Encounter Status:Closed by MANOLO LUTHER on 09/21/23 [facility] 05-15-2023 L ------- Specimen: [id number] Received: 05/15/23 Status: MG Clemente Num: [id number] Spec Type: Surgical Subm Dr: Dano Pyle DO Tissues: A BREAST CORE NO CALCS [...] Location Account Attending Physician Brittanie Garcia 38/F [place] [id number] Dano Pyle, SPEC NUM: [id number] RECD: 05/15/23 STATUS: MG CLEMENTE NUM: [id number] TACOS: 05/15/[address]: Dano Pyle DO ENTERED: 05/15/[address] [facility] [address]: SPEC TYPE: Surgical DEPT: S ORDERED: HE/6, Gross/Micro [...] show some diminished staining of myoepithelial Specimen: [id number] Received: 05/15/23 Status: MG [place] Num: [id number] Spec Type: Surgical Subm Dr: Dano Pyle DO Tissues: A BREAST CORE NO CALCS [...] Gross/Micro L4/4, E CADHERIN Patient: Brittanie Garcia [id number] (Continued) Specimen: [id number] Received: 05/15/23 (Continued) Pathological Diagnosis (Continued) Signed (signature on file) Dany Fonseca MD 05/17/23 1723 Specimen: [id number] Received: 05/15/23 Status: MG Clemente Num: [id number] Spec Type: Surgical Subm Dr: Dano Pyle, [...] Procedures: HE/6, Gross/Micro L4/4, E CADHERIN Patient: GarciaBrittanie mcqueen [id number] (Continued) Specimen: [id number] Received: 05/15/23 (Continued) Pathological Diagnosis (Continued) cells, and otherwise without definitive features of lobular intraepithelial neoplasm identifiable -Also no evidence of malignancy or atypical epithelial hyperplasia identified C. Left ni (more content not included)... Normal [facility] Basic Metabolic Panelon 04-20 GFR/1.73 sq M.predicted MDRD (S/P/Bld) [Vol rate/Area] mL/min/{1.73_m2} Normal [facility] Comment on above: Performed By: #### B MP #### [address] Calcium [Mass/volume] in Ser um or PlasmaOrdered By: Dano Pyle on 12-12-2023 Calcium [Mass/Vol] 9.7 mg/dL Normal 8.6-10.3 [facility] Comment on above: Result Comment: PERF ORMED BY: [place] [address] PATHOLOGIST FILM PROCESSING UTILITY WORKER ROSSI POND M.D. Performed By: #### B MP #### [facility] [address] [place] [address] [place] Carbon dioxide, total [Moles /volume] in Serum or PlasmaOrdered By: Dano Pyle on 05-01-2023 CO2 [Moles/Vol] 28.9 mmol/L Normal 21.0-31.0 [facility] Comment on above: Performed By: #### B MP #### [place] [address] [place] Chloride [Moles/volume] in S leticia or PlasmaOrdered By: Dano Pyle on 05-01-2023 Chloride [Moles/Vol] 105 mmol/L Normal 98-107 [facility] Comment on above: Performed By: #### B MP #### [facility] [address] [place] [address] [place] Creatinine [Mass/volume] in Serum or PlasmaOrdered By: Dano Pyle on 05-01-2023 Creatinine [Mass/Vol] 0.75 mg/dL Normal 0.60-1.20 [facility] Comment on above: Performed By: #### B MP #### [place] [address] [place] Glucose [Mass/volume] in Ser um or PlasmaOrdered By: Dano Pyle on 05-01-2023 Glucose [Mass/Vol] 84 mg/dL Normal 70-100 [facility] Comment on above: ADA recommended refe rence rangeRandom Glucose Reference Range is dependent on time and content of last meal. Glucose of more than 200 mg/dL in a nonstressed, ambulatory subject supports the diagnosis of Diabetes Mellitus. Result Comment: [place] om Glucose Reference Range is dependent on time and content of last meal. Glucose of more than 200 mg/dL in a nonstressed, ambulatory subject supports the diagnosis of Diabetes Mellitus. ADA recommended reference range Performed By: #### B MP #### [facility] [address] [place] [address] No Panel InformationOrdered By: Dano Pyle on 05-01-2023 Estimated GFR (CKD-EPI) > 60.0 mL/Min [facility] Creatinine Clearance (Chem N/A [facility] Potassium [Moles/volume] in Serum or PlasmaOrdered By: Dano Pyle on 05-01-2023 Potassium [Moles/Vol] 4.3 mmol/L Normal 3.5-5.1 [facility] Comment on above: Performed By: #### B MP #### [address] Serum or plasma anion gap de terminationOrdered By: Dano Pyle on 05-01-2023 Anion gap [Moles/Vol] 9.4 mmol/L Normal 6.0-15.0 [facility] Comment on above: Performed By: #### B MP #### [address] Sodium [Moles/volume] in Ser um or PlasmaOrdered By: Dano Pyle on 05-01-2023 Sodium [Moles/Vol] 139 mmol/L Normal 136-145 [facility] Comment on above: Performed By: #### B MP #### [address] Urea nitrogen [Mass/volume] in Serum or PlasmaOrdered By: Dano Pyle on 05-01-2023 Urea nitrogen [Mass/Vol] 14 mg/dL Normal 7-25 [facility] Comment on above: Performed By: #### B MP #### [address] SURGICAL PATHOLOGY REFERENCE LAB CONSULTon 04-11-2023 CASE REPORT Normal [facility] Comment on above: Order Comment: Speci men Type: FORMALIN-FIXED PARAFFIN-EMBEDDED TISSUE SPECIMENOrdering Facility: [facility] Address: [address] [place] [address] [place] [address] Result Comment: Surg [facility] Pathology Report Case: [id number] Authorizing Provider: Calvin Haynes MD Collected: 04/11/2023 10:31 AM Ordering Location: [facility] Received: 04/11/2023 10:32 AM [facility] Pathologist: Estiven Wang MD Specimen: SLIDE(S), 12 SLIDES, [id number] Performed By: #### L [id number] ####[facility] LABCLIA [id number] [address] OF [facility] CLINICAL HISTORY CONSULT REQUESTED [facility] Comment on above: Order Comment: Speci men Type: FORMALIN-FIXED PARAFFIN-EMBEDDED TISSUE SPECIMENOrdering Facility: [facility] Address: [address] [place] [address] Performed By: #### L [id number] ####[facility] [id number] [address] DIAGNOSIS COMMENT Normal [facility] Comment on above: Order Comment: Speci men Type: FORMALIN-FIXED PARAFFIN-EMBEDDED TISSUE SPECIMENOrdering Facility: [facility] Address: [address] [place], [place] [address] [address] Result Comment: Many thanks for sending us [...] in consultation with Dr. Rogers, of the [facility] breast pathology department, who concurs. Performed By: #### L [id number] ####[facility] LABIA [id number] [address] FINAL DIAGNOSIS Normal [facility] Comment on above: Order Comment: Speci men Type: FORMALIN-FIXED PARAFFIN-EMBEDDED TISSUE SPECIMENOrdering Facility: [facility] Address: [address] [place] [address] Result Comment: Left breast, core biopsy - Severn spindle cell proliferation, (please see comment). Performed By: #### L [id number] ####[facility] LABCLIA [id number] [address] FINAL PERFORMING LAB Normal [facility] Comment on above: Order Comment: Speci men Type: FORMALIN-FIXED PARAFFIN-EMBEDDED TISSUE SPECIMENOrdering Facility: [facility] Address: [address] [place] [address] Result Comment: Diag nostic interpretation performed at [facility], [facility] [place] [address] CLIA# [id number] Mammal Control Agent: Oliverio Brito M.D. Performed By: #### L [id number] ####[facility] LABCLIA [id number] [address] 04-05-2023 L ------- Specimen: [id number] Received: 04/05/23 Status: MG Elizabeth Num: [id number] Spec Type: Surgical Subm Dr: Binta Elaine MD Tissues: A BREAST CORE NO CALCS (LT BREAST TISSUE) Procedures: S 100, HE/2, Gross/Micro L4, DESMIN, AE1-AE3, CD31, CD34, ER, Ki-67, SM ACTIN, IHC First AB, IHC Add AB/8, GATA3, BETA-CATENIN Age/ Patient Sex Location Account Attending Physician Brittanie Garcia 38/F [place]ARIO [id number] Dano Pyle DO SPEC NUM: [id number] RECD: 04/05/23 STATUS: MG CLEMENTE NUM: [id number] TACOS: 04/05/[address] [facility] [address]: Binta Elaine MD ENTERED: 04/05/[address] [facility] DR: DO MIKE Rodriguez TYPE: Surgical DEPT: S ORDERED: S 100, HE/2, Gross/Micro L4, DESMIN, AE1-AE3, CD31, CD34, ER, Ki-67, SM ACTIN, IHC First AB, IHC Add AB/8, GATA3, BETA-CATENIN ORDERED: S 100, HE/2, Gross/Micro L4, DESMIN, AE1-AE3, CD31, CD34, ER, Ki-67, SM ACTIN, IHC First AB, IHC Add AB/8, IMMUNOHISTOCHEM, GATA3, BETA-CATENIN Supplemental Report Addendum 1 Entered: 04/16/23 [facility] Pathology Report ([id number]): Left Breast, core biopsy: - Severn spindle cell proliferation - See the [facility] report for details Addendum Signed (signature on file) Calvin Haynes MD 04/16/231535 Pathological Diagnosis Preliminary Pathology Diagnosis: Breast mass, left side, core biopsy: Specimen: [id number] Received: 04/05/23 Status: MG Clemente Num: [id number] Spec Type: Surgical Subm Dr: Binta Elaine MD Tissues: A BREAST CORE NO CALCS (LT BREAST TISSUE) Procedures: S 100, HE/2, Gross/Micro L4, DESMIN, AE1-AE3, CD31, CD34, ER, Ki-67, SM ACTIN, IHC First AB, IHC Add AB/8, GATA3, BETA-CATENIN Patient: Brittanie Garcia [id number] (Continued) Specimen: [id number] Received: 04/05/23 (Continued) Pathological Diagnosis (Continued) Signed (signature on file) Calvin Haynes MD 04/10/23 1142 Specimen: [id number] Received: 04/05/23 Status: MG [place]olin[place] Num: [id number] Spec Type: Surgical Subm Dr: Binta Elaine MD Tissues: A BREAST CORE NO CALCS (LT BREAST TISSUE) Procedures: S 100, HE/2, Gross/Micro L4, DESMIN, AE1-AE3, CD31, CD34, ER, Ki-67, SM ACTIN, IHC First AB, IHC Add AB/8, GATA3, BETA-CATENIN Patient: GarciaBrittanie chambers [id number] (Continued) Specimen: [id number] Received: 04/05/23 (Continued) Pathological Diagnosis (Continued) - [...] This case will be sent to the [facility] for consultation and second opinion and the [...] in formalin is 6.75 hours. CPT Codes 03844 [id number] (more content not included)... 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 At 11:00, 3 to 4 [...] Binta Elaine M.D.04/05/2023 5:45 PM Dictation Location: [facility] Tech: Marlee Sánchez Transcribed By: JADEN 04/05/23 1924 Dictated By: Binta Elaine MD 04/05/23 1127 Signed By: 04/05/23 1745 Normal [facility] US breast ndl core biopsy LT on 04-05-2023 US breast ndl core biopsy LT [facility] Main [place] [id number] Mammography Report Signed with Addenda Patient: Brittanie Garcia MR#: [id number] : 1985 Acct:[id number] Age/Sex: 38 / F ADM Date: 04/05/23 Loc: [facility] Room: Type: 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 It is therefore uncertain whether or not resection should be performed. If there is no further intervention, ultrasound follow-up in 6 months is suggested. Impression dictated by: Binta Elaine M.D.04/17/2023 7:37 AM Dictation Location: [place] [address] Addendum Dictated By: MD Binta Elaine Addendum [...] Binta Elaine M.D.04/05/2023 2:04 PM Dictation Location: [facility] Transcribed By: JADEN 04/05/23 1404 Dictated By: Binta Elaine MD 04/05/23 1134 Signed By: 04/05/23 1404 Normal [facility] Salima 02-19-2023 CNPN Telephone (NIQ) JOSEBRITTANIE ([id number]) 1985 F Date Time Provider Department 02/19/23 [facility] During your visit today, we recorded the following information about you: Myrtle Gonzalez 02/19/2023 12:09 PM Signed Scanned in medical records from [facility] for review Evonne Dillard RN 02/19/2023 12:20 PM Signed Evonne GAMBOA BSN, RN, BA Evonne Dillard RN 02/19/2023 12:29 PM Signed Maria Del Carmen Borges APRN.NAIL TECHNICIAN TEACHER You 1 minute ago (12:27 PM) Thank you. This is a normal value. PRATIBHA Louis, RN, BA Allergies As of Date: 02/19/2023 Noted Allergy Reaction ADHESIVE 07/28/2022 14 - Other: See Comments 2 - Rash CAFFEINE 06/13/2012 11 - Vomiting DHE 06/13/2012 12 - Shortness of Breath Date Reviewed: 01/12/2023 Reviewed by: Maria Del Carmen Borges APRN.NAIL TECHNICIAN TEACHER - Fully Assessed Reason for Visit: Results [95] Cmt: [facility] Prescriptions as of 02/19/2023 - cyclobenzaprine [...] Encounter Status:Closed by EVONNE DILLARD on 02/19/23 [facility] 02-09-2023 [facility] Telephone (NIQ) BRITTANIE GARCIA ([id number]) 1985 F Date Time Provider Department 02/09/23 [facility] During your visit today, we recorded the following information about you: Myrtle Gonzalez 02/09/2023 9:59 AM Signed Scanneed in medical records from [facility] for review Evonne Dillard RN 02/09/2023 10:26 AM Signed Maria Del Carmen Borges APRN.NAIL TECHNICIAN TEACHER You 2 minutes ago (10:23 AM) Reviewed. PRATIBHA Louis, RN, BA Allergies As of Date: 02/09/2023 Noted Allergy Reaction ADHESIVE 07/28/2022 14 - Other: See Comments 2 - Rash CAFFEINE 06/13/2012 11 - Vomiting DHE 06/13/2012 12 - Shortness of Breath Date Reviewed: 01/12/2023 Reviewed by: Maria Del Carmen Borges APRN.NAIL TECHNICIAN TEACHER - Fully Assessed Reason for Visit: Results [95] Cmt: [facility] Prescriptions as of 02/09/2023 - cyclobenzaprine (FLEXERIL) [...] Status:Closed by EVONNE DILLARD on 02/09/23 Normal [facility] Automated basophil %Ordered By: Maria Del Carmen Borges on 02-07-2023 Basophils/100 WBC (Bld) 0.4 % Normal . [facility] Comment on above: Performed By: #### F ER, CBC #### [address] Automated basophil countOrde red By: Maria Del Carmen Borges on 02-07-2023 Basophils (Bld) [#/Vol] 0.0 10*3/uL Normal 0.0-0.2 [facility] Comment on above: Result Comment: PERF ORMED BY: [place] [address] PATHOLOGIST FILM PROCESSING UTILITY WORKER ROSSI POND M.D. Performed By: #### F ER, CBC #### [address] Automated blood monocyte cou ntOrdered By: Maria Del Carmen Borges on 02-07-2023 Monocytes (Bld) [#/Vol] 0.5 10*3/uL Normal 0.0-0.8 [facility] Comment on above: Performed By: #### F ER, CBC #### [address] Automated eosinophil %Ordere d By: Maria Del Carmen Borges on 02-07-2023 Eosinophils/100 WBC (Bld) 1.2 % Normal . [facility] Comment on above: Performed By: #### F ER, CBC #### [address] Automated eosinophil countOr dered By: Maria Del Carmen Borges on 02-07-2023 Eosinophils (Bld) [#/Vol] 0.1 10*3/uL Normal 0.0-0.45 [facility] Comment on above: Performed By: #### F ER, CBC #### [address] Automated monocyte %Ordered By: Maria Del Carmen Borges on 02-07-2023 Monocytes/100 WBC (Bld) 6.5 % Normal . [facility] Comment on above: Performed By: #### F ER, CBC #### [address] Automated neutrophil %Ordere d By: Maria Del Carmen Borges on 02-07-2023 Neutrophils/100 WBC (Bld) 56.5 % Normal . [facility] Comment on above: Performed By: #### F ER, CBC #### [address] Complete Blood Count Auto Di ffon 02-07-2023 Mean Corpuscular HGB Conc 33.3 g/dL Normal 32.0-35.0 [facility] Comment on above: Performed By: #### F ER, CBC #### [facility] [address] NRBC% 0.1 /100{WBC} Normal 0-0.5 [facility] Comment on above: Performed By: #### F ER, CBC #### [address] Erythrocyte distribution wid th [Ratio] by Automated countOrdered By: Maria Del Carmen Borges on 02-07-2023 Erythrocyte distribution width (RBC) [Ratio] 13.4 % Normal 11.9-15.3 [facility] Comment on above: Performed By: #### F ER, CBC #### [address] Erythrocytes [#/volume] in B lood by Automated countOrdered By: Maria Del Carmen Borges on 02-07-2023 RBC (Bld) [#/Vol] 4.94 10*6/uL Normal 3.60-5.00 [facility] Comment on above: Performed By: #### F ER, CBC #### [address] Ferritin [Mass/volume] in Se rum or PlasmaOrdered By: Maria Del Carmen Borges on 02-07-2023 Ferritin [Mass/Vol] 110.5 ng/mL Normal 11.0-306.8 [facility] Comment on above: Result Comment: PERF ORMED BY: [place] [address] PATHOLOGIST FILM PROCESSING UTILITY WORKER ROSSI POND M.D. Performed By: #### F ER, CBC #### [address] Hematocrit [Volume Fraction] of Blood by Automated countOrdered By: Maria Del Carmen Borges on 02-07-2023 Hematocrit (Bld) [Volume fraction] 42.6 % Normal 34.0-46.4 [facility] Comment on above: Performed By: #### F ER, CBC #### [facility] [address] Hemoglobin [Mass/volume] in BloodOrdered By: Maria Del Carmen Borges on 02-07-2023 Hemoglobin (Bld) [Mass/Vol] 14.2 g/dL Normal 11.8-15.4 [facility] Comment on above: Performed By: #### F ER, CBC #### [address] Leukocytes [#/volume] correc harman for nucleated erythrocytes in Blood by Automated counOrdered By: Maria Del Carmen Borges on 02-07-2023 WBC corrected for nucl RBC Auto (Bld) [#/Vol] 7.0 10*3/uL 3.8-11.6 [facility] Leukocytes [#/volume] in Blo od by Automated countOrdered By: Maria Del Carmen Borges on 02-07-2023 WBC (Bld) [#/Vol] 7.0 10*3/uL Normal 3.8-11.6 [facility] Comment on above: Performed By: #### F ER, CBC #### [address] Lymphocytes [#/volume] in Bl ood by Automated countOrdered By: Maria Del Carmen Borges on 02-07-2023 Lymphocytes (Bld) [#/Vol] 2.5 10*3/uL Normal 1.00-4.8 [facility] Comment on above: Performed By: #### F ER, CBC #### [place] [address] [place] Lymphocytes/100 leukocytes i n Blood by Automated countOrdered By: Maria Del Carmen Borges on 02-07-2023 Lymphocytes/100 WBC (Bld) 35.4 % Normal . [facility] Comment on above: Performed By: #### F ER, CBC #### [place] [address] [place] MCH [Entitic mass] by Automa harman countOrdered By: Maria Del Carmen Borges on 02-07-2023 MCH (RBC) [Entitic mass] 28.7 pg Normal 24.7-34.3 [facility] Comment on above: Performed By: #### F ER, CBC #### [address] MCHC Auto (RBC) [Mass/Vol]Or dered By: Maria Del Carmen Bogres on 02-07-2023 MCHC (RBC) [Mass/Vol] 33.3 g/dL 32.0-35.0 [facility] MCV [Entitic volume] by Auto mated countOrdered By: Maria Del Carmen Borges on 02-07-2023 MCV (RBC) [Entitic vol] 86.2 fL Normal 80-100 [facility] Comment on above: Performed By: #### F ER, CBC #### [address] Neutrophils [#/volume] in Bl ood by Automated countOrdered By: Maria Del Carmen Borges on 02-07-2023 Neutrophils (Bld) [#/Vol] 4.0 10*3/uL Normal 1.8-7.7 [facility] Comment on above: Performed By: #### F ER, CBC #### [facility] [address] [place] [address] Nucleated erythrocytes [Pres ence] in Blood by Automated countOrdered By: Maria Del Carmen Borges on 02-07-2023 Nucleated RBC Auto Ql (Bld) 0.1 /100{WBC} 0-0.5 [facility] Platelet mean volume [Entiti c volume] in Blood by Automated countOrdered By: Maria Del Carmen Borges on 02-07-2023 Platelet mean volume (Bld) [Entitic vol] 8.3 fL Normal 6.3-10.7 [facility] Comment on above: Performed By: #### F ER, CBC #### [address] Platelets [#/volume] in Bloo d by Automated countOrdered By: Maria Del Carmen Borges on 02-07-2023 Platelets (Bld) [#/Vol] 223 10*3/uL Normal 150-450 [facility] Comment on above: Performed By: #### F ER, CBC #### [facility] [address] Echocardiogramon 12-28-2022 Echocardiography [facility] [address] [place] [address], [address], [place] [address] TRANSTHORACIC ECHOCARDIOGRAM REPORT Patient Name: BRITTANIE Aguilar Blaire Physician: [id number] Saeed GARCIA MD Study Date: 12/28/2022 Referring SORAYA CAGE Physician: MRN/PID: [id number] PCP: Filiberto Ying Accession/Order#: [id number] Department [facility] Location: [place] Date of : 1985 Fellow: Gender: F Nurse: Admit Date: Slot Machine Key Person: Lanny Padron RDCS, RVT Height: 157.48 cm CC Report to: Weight: 74.84 kg Study Type: Echocardiogram BSA: 1.76 m2 Blood Pressure: 106 /70 mmHg Diagnosis/ICD: R00.0-Tachycardia, unspecified; O53-Ihkrkyt Indication: Hyperlipidemia, Overweight Procedure/CPT: Echo Complete w Full [id number]-[id number] Study Detail: The following Echo studies were [...] 0.8 m/s (0.6-0.9m/s) PV Max P.4 mmHg [id number] Saeed Parada MD Electronically signed on 01/01/2023 at 2:35:16 PM Final Normal [facility] Office Visit (Cardiology)on 11-14-2022 Follow-up visit Diagnoses/Problems [...] alcoholic beverages.; Status:Complete - Retrospective Authorization; Done: [id number] Drink at least 6 glasses of water or juice a day.; Status:Complete - Retrospective Authorization; Done: [id number] Patient Instructions Avoid dehydration. Drink 5-6 bottles [...] requested at the time of your visit. Corina Jordan LPN am scribing for and in the presence of Dr. Soraya Cage, FACC, FACP, FHRS The provider reviewed the following test(s) and result(s) with the patient: ECG, Holter monitor and Tilt table Chief Complaint Patient [facility] care. Adult Risk Screening Initial Fall Risk Screening: [...] Normal axis. Corrected QT interval 420 ms. GA interval 150 ms See signed ECG and check /Paceart. Imp / Plan Recurrent syncope, consistent with vasovagal etiology. Discussed mechanisms of syncope. Reviewed syncope brochure. Reviewed testing event monitor and tilt table te (more content not included)... Normal [facility] Office Visit (Cardiology)on 11-10-2022 Follow-up visit Diagnoses/Problems [...] Signs Recorded: 10Nov2022 09:01AMRecorded: 10Nov2022 08:58AM Systolic Mcihdld58, LUE, Sitting Diastolic Xhtqecr81, LUE, Sitting Systolic Fgrkldfi855, LUE, Standing Diastolic Gwzwmmww73, LUE, Standing Heart Rate92, L Radial Mxapyehf63, LUE, Sitting Cvdnsebjg25, LUE, Sitting Height5 ft 2 in Yvafov594 lb BMI Klrdtjjasg01.63 kg/m2 BSA Calculated1.75 Tobacco Useb) No Falls [...] (Author) Normal [facility] No Panel Informationon 10-23 [facility] DO Work Phone: Cardiovasc Arrhythmia Result son 09-29-2022 Cardiovasc Arrhythmia Results Reason For Visit Event Monitor: BRITTANIE is here for the application of a 30 day event monitor in office., Diagnosis: Syncope,Fainting Ordering Physician: Dr. Saeed Castellanos DO Enrollment sent to: [employer] Monitor number [id number] applied. Holter monitor printed and placed on [...] Nov 02 2022 9:05AM EST (Author) Normal [facility] Office Visit (Cardiology)on 09-20-2022 Follow-up visit Diagnoses/Problems [...] no rebound tachycardia. Recommendations, obtain [facility] monitoring, tilt table test, refer to either [...] Signs Recorded: 20Sep2022 10:01AMRecorded: 20Sep2022 09:59AM Systolic Xbhcy841 Diastolic Lying88 Systolic Frrvwyr213 Diastolic Hjcsiyv52 Systolic Bdmsecab946 Diastolic Hfqczwwu55 Heart Rate85, Apical Plqlbiuu364, LUE, Supine Vwleknszo89, LUE, Supine Height5 ft 2 in Srrfwa624 lb BMI Eqlgmupwiy44.36 kg/m2 BSA Calculated1.77 Tobacco Useb) No PHQ-2 #1. Ov (more content not included)... Normal [facility] Tobacco Screening.on 023 Adult depression screening assessment No [facility] [employer] 250 DO Work Phone: Tobacco use status CPHS b) No [facility] [employer] 250 DO Work Phone: MAGDA BY IFA WITH REFLEXon Nuclear Ab IF (S) [Titer] Negative Negative [facility] CCP ANTIBODY IGGon Cyclic citrullinated peptide IgG Qn <20 Units [facility] Cyclic citrullinated peptide IgG Qnon 07-31-2022 CCP Antibody IgG Qualitative Negative Negative [facility] C-REACTIVE PROTEIN (CRP)on 0 07-28-2022 CRP [Mass/Vol] <0.9 mg/dL [facility] CBC W Auto Differential pane l (Bld)on 07-28-2022 Basophils (Bld) [#/Vol] 0.03 10*3/uL <0.11 k/uL [facility] Basophils/100 WBC (Bld) 0.4 % [facility] Differential cell count method Nom (Bld) Auto [facility] Eosinophils (Bld) [#/Vol] 0.07 10*3/uL <0.46 k/uL [facility] Eosinophils/100 WBC (Bld) 0.9 % [facility] Erythrocyte distribution width (RBC) [Ratio] 13.0 % 11.5 - 15.0 % [facility] Hematocrit (Bld) [Volume fraction] 44.1 % 36.0 - 46.0 % [facility] Hemoglobin (Bld) [Mass/Vol] 14.3 g/dL 11.5 - 15.5 g/dL [facility] Immature granulocytes (Bld) [#/Vol] <0.10 k/uL [facility] Immature granulocytes/100 WBC (Bld) 0.3 % [facility] Lymphocytes (Bld) [#/Vol] 2.43 10*3/uL 1.00 - 4.00 k/uL [facility] Lymphocytes/100 WBC (Bld) 30.5 % [facility] MCH (RBC) [Entitic mass] 29.0 pg 26.0 - 34.0 pg [facility] MCHC (RBC) [Mass/Vol] 32.4 g/dL 30.5 - 36.0 g/dL [facility] MCV (RBC) [Entitic vol] 89.5 fL 80.0 - 100.0 fL [facility] Monocytes (Bld) [#/Vol] 0.49 10*3/uL <0.87 k/uL [facility] Monocytes/100 WBC (Bld) 6.1 % [facility] Neutrophils (Bld) [#/Vol] 4.93 10*3/uL 1.45 - 7.50 k/uL [facility] Neutrophils/100 WBC (Bld) 61.8 % [facility] Nucleated RBC (Bld) [#/Vol] <0.01 k/uL [facility] Nucleated RBC/100 WBC (Bld) [Ratio] 0.0 /100 WBC [facility] Platelet mean volume (Bld) [Entitic vol] 10.1 fL 9.0 - 12.7 fL [facility] Platelets (Bld) [#/Vol] 251 10*3/uL 150 - 400 k/uL [facility] RBC (Bld) [#/Vol] 4.93 10*6/uL 3.90 - 5.20 m/uL [facility] WBC (Bld) [#/Vol] 7.97 10*3/uL 3.70 - 11.00 k/uL [facility] Comprehensive metabolic 2000 panelon 07-28-2022 Albumin [Mass/Vol] 4.7 g/dL 3.9 - 4.9 g/dL [facility] ALP [Catalytic activity/Vol] 86 U/L 34 - 123 U/L [facility] ALT [Catalytic activity/Vol] 58 U/L High 7 - 38 U/L [facility] Anion gap [Moles/Vol] 12 mmol/L 9 - 18 mmol/L [facility] AST [Catalytic activity/Vol] 31 U/L 13 - 35 U/L [facility] Bilirubin [Mass/Vol] 0.4 mg/dL 0.2 - 1 .3 mg/dL [facility] Calcium [Mass/Vol] 10.0 mg/dL 8.5 - 10. 2 mg/dL [facility] Chloride [Moles/Vol] 105 mmol/L 97 - 10 5 mmol/L [facility] CO2 [Moles/Vol] 23 mmol/L 22 - 30 mmol/L [facility] Creatinine [Mass/Vol] 0.79 mg/dL 0.58 - 0.96 mg/dL [facility] Estimated Glomerular Filtration Rate 100 mL/min/1.73m >=60 mL/min/1.7 3m [facility] Glucose [Mass/Vol] 84 mg/dL 74 - 99 mg/dL [facility] Potassium [Moles/Vol] 4.1 mmol/L 3.7 - 5.1 mmol/L [facility] Protein [Mass/Vol] 7.7 g/dL 6.3 - 8.0 g/dL [facility] Sodium [Moles/Vol] 140 mmol/L 136 - 144 mmol/L [facility] Urea nitrogen [Mass/Vol] 12 mg/dL 7 - 21 mg/dL [facility] ESR Westergren method (Bld) [Velocity]on 07-28-2022 ESR (Bld) [Velocity] 5 mm/h 0 - 20 mm/hr [facility] No Panel Informationon 07-28 [facility] RHEUMATOID FACTOR BLon 07-28 Rheumatoid factor Qn <16 IU/mL [facility] XR CSPINE OBL FLEX_EXTon XR CSPINE [...] by: NAVNEET MONTERO Date: 2022-02-16 08:57 Normal [facility] Ferritin [Mass/volume] in Se rum or PlasmaOrdered By: Kenna Sheehan on 01-19-2022 Ferritin [Mass/Vol] 51.8 ng/mL 11-306.8 [facility] PAP ACOG PANEL 2: 30 to 65on 01-13-2022 . . Normal [facility] Comment on above: Result Comment: Perf ormed at: WB Performed By: #### [id number] #### [facility] [address] [place] [address] Dr. Lui Fonseca Age Gdln ACOG Testing 30-65 Normal [facility] Comment on above: Performed By: #### [id number] #### [facility] [address] [place] [address] [address] Lui Fonseca DIAGNOSIS: Comment Normal [facility] Comment on above: Result Comment: NEGA TIVE FOR INTRAEPITHELIAL LESION OR MALIGNANCY. Performed at: WB Performed By: #### [id number] #### [facility] [address] [place] [address] [address] Lui Fonseca HPV Aptima Negative Normal Negative [facility] Comment on above: Result Comment: This nucleic acid amplification test detects fourteen high-risk HPV types (16,18,31,33,35,39,45,51,52,56,58,59,66,68) without differentiation. Performed at: =G Performed By: #### [id number] #### [facility] [address] [place] [address] Dr. Lui Fonseca Methodology: Comment Normal [facility] Comment on above: Result Comment: This liquid based ThinPrep(R) pap test was screened with the use of an image guided system. Performed at: WB Performed By: #### [id number] #### [facility] [address] [place] [address] Dr. Lui Fonseca Note: Comment Normal [facility] Comment on above: Result Comment: The Pap smear is a screening test designed to aid in the detection of premalignant and malignant conditions of the uterine cervix. It is not a diagnostic procedure and should not be used as the sole means of detecting cervical cancer. Both false-positive and false-negative reports do occur. . Performed at: WB Performed By: #### [id number] #### [facility] [address] [place] [address] Dr. Lui Fonseca Performed by: Comment Normal [facility] Comment on above: Result Comment: Susan Alejandro, Supervisory Ep Tech (ASCP) Performed at: WB Performed By: #### [id number] #### [facility] [address] [place] [address] Dr. Lui Fonseca Specimen adequacy: Comment Normal [facility] Comment on above: Result Comment: Sati sfactory for evaluation. No endocervical component is identified. Performed at: WB Performed By: #### [id number] #### [facility] [address] [place] [address] Dr. Lui Fonseca INSULINon 01-02-2022 Insulin 20.6 uIU/mL Normal 2.6-24.9 [facility] Comment on above: Performed By: #### I NSULIN #### [facility] [address] [place] [address] Dr. Lui Fonseca H PYLORI ANTIBODY IGGon 12-19 H. PYLORI IGG ABS 0.15 Index Value Normal 0.00-0.79 [facility] Comment on above: Result Comment: Nega tive <0.80 Equivocal 0.80 - 0.89 Positive >0.89 Performed By: #### H PYLLC #### [facility] [address] [place] [address] Dr. Lui Fonseca T4, T3U, FTI LABCORPon 01-01 Free Thyroxine Index 2.7 Normal 1.2-4.9 [facility] [place] Comment on above: Performed By: #### T HYLC #### [facility] [address] [place] [address] Dr. Lui Fonseca T3 Uptake 30 % Normal 24-39 [facility] Comment on above: Performed By: #### T HYLC #### [facility] [address] [place] [address] Dr. Lui Fonseca T4 [Mass/Vol] 9.1 ug/dL Normal 4.5-12.0 [facility] Comment on above: Performed By: #### T HYLC #### [facility] [address] [place] [address] Dr. Lui Fonseca CBC AUTO DIFFon 12-31-2021 BASO # 0.0 103/ul Normal 0.0-0.1 [facility] Comment on above: Performed By: #### C BC #### [facility] [address] [place] [address] Dr. Lui Fonseca Basophils/100 WBC (Bld) 0.4 % Normal 0.2-2.0 [facility] Comment on above: Performed By: #### C BC #### [facility] [address] [place] [address] Dr. Lui Fonseca EO # 0.2 103/ul Normal 0.0-0.7 [facility] Comment on above: Performed By: #### C BC #### [facility] [address] [place] [address] Dr. Lui Fonseca Eosinophils/100 WBC (Bld) 2.8 % Normal 0.9-7.0 [facility] [place] Comment on above: Performed By: #### C BC #### [facility] [address] [place] [address] Dr. Lui Fonseca Erythrocyte distribution width (RBC) [Ratio] 13.2 % Normal 11.0-15.0 [facility] Comment on above: Performed By: #### C BC #### [facility] [address] [place] [address] Dr. Lui Fonseca Hematocrit (Bld) [Volume fraction] 44.0 % Normal 36.0-48.0 [facility] Comment on above: Performed By: #### C BC #### [facility] [address] [place] [address] Dr. Lui Fonseca Hemoglobin (Bld) [Mass/Vol] 14.3 g/dL Normal 12.0-16.0 [facility] Comment on above: Performed By: #### C BC #### [facility] [address] [place] [address] Dr. Lui Fonseca IG # 0.01 10e3/ul Normal 0.00-0.03 [facility] [place] Comment on above: Performed By: #### C BC #### [facility] [address] [place] [address] Dr. Lui Fonseca IG % 0.2 % Normal 0.0-0.5 [facility] [place] Comment on above: Performed By: #### C BC #### [facility] [address] [place] [address] Dr. Lui Fonseca LYMPH # 2.3 103/ul Normal 1.2-3.8 [facility] [place] Comment on above: Performed By: #### C BC #### [facility] [address] [place] [address] Dr. Lui Fonseca Lymphocytes/100 WBC (Bld) 41.6 % Normal 20.5-60.0 [facility] Comment on above: Performed By: #### C BC #### [facility] [address] [place] [address] Dr. Lui Fonseca MANUAL DIFF REQ NO Normal [facility] [place] Comment on above: Performed By: #### C BC #### [facility] [address] [place] [address] Dr. Lui Fonseca MCH (RBC) [Entitic mass] 29.1 pg Normal 26.7-34.0 [facility] Comment on above: Performed By: #### C BC #### [facility] [address] [address] [address] Lui Fonseca MCHC (RBC) [Mass/Vol] 32.5 g/dL Normal 29.9-35.2 [facility] Comment on above: Performed By: #### C BC #### [facility] [address] [place] [address] Dr. Lui Fonseca MCV (RBC) [Entitic vol] 89.6 fL Normal 81.0-99.0 [facility] Comment on above: Performed By: #### C BC #### [facility] [address] [place] [address] Dr. Lui Fonseca MONO # 0.3 103/ul Normal 0.3-0.8 [facility] Comment on above: Performed By: #### C BC #### [facility] [address] [place] [address] Dr. Lui Fonseca Monocytes/100 WBC (Bld) 6.3 % Normal 1.7-12.0 [facility] Comment on above: Performed By: #### C BC #### [facility] [address] [place] [address] Dr. Lui Fonseca NEUT # 2.7 103/ul Normal 1.4-6.5 [facility] [place] Comment on above: Performed By: #### C BC #### [facility] [address] [place] [address] Dr. Lui Fonseca Neutrophils/100 WBC (Bld) 48.7 % Normal 43.0-75.0 [facility] Comment on above: Performed By: #### C BC #### [facility] [address] [place] [address] Dr. Lui Fonseca Platelet mean volume (Bld) [Entitic vol] 9.5 fL Normal 9.5-13.5 [facility] Comment on above: Performed By: #### C BC #### [facility] [address] [place] [address] Dr. Lui Fonseca PLT 276 103/ul Normal 150-450 [facility] Comment on above: Performed By: #### C BC #### [facility] [address] [address] [address] Lui Fonseca RBC 4.91 106/ul Normal 4.20-5.40 [facility] Comment on above: Performed By: #### C BC #### [facility] [address] [address] [address] Lui Fonseca WBC 5.4 103/ul Normal 4.0-11.0 [facility] Comment on above: Performed By: #### C BC #### [facility] [address] [address] [address] Lui Fonseca GLYCOHEMOGLOBIN A1Con 2021 ADA RECOMMENDATION SEE BELOW Normal [facility] Comment on above: Result Comment: ADA RECOMMENDED LIMIT 4.0 - 6.0 ADA THERAPEUTIC TARGET < 7.0 ACTION SUGGESTED > 7.0 Performed By: #### A 1C ####[facility] [address] [address]Dr. Lui Fonseca Glucose [Mass/Vol] 97 mg/dL Normal [facility] Comment on above: Performed By: #### A 1C ####[facility] [address] [address]Dr. Lui Fonseca HbA1c (Bld) [Mass fraction] 5.0 % Normal 4.5-6.2 [facility] Comment on above: Performed By: #### A 1C ####[facility] [address] [address]Dr. Lui Fonseca IRONon 12-31-2021 Iron [Mass/Vol] 101.0 ug/dL Normal 50.0-170.0 [facility] [place] Comment on above: Performed By: #### I EDMOND #### [facility] [address] [address] [address] Lui Fonseca LIPID PROFILEon 12-31-2021 CHOL-HDL RATIO NORM SEE BELOW Normal [facility] [place] Comment on above: Result Comment: 3.3 - 4.4 LOW RISK 4.4 - 7.1 AVERAGE RISK 7.1 - 11.0 MODERATE RISK >11.0 HIGH RISK Performed By: #### T SH, LIPID, CMP ####[facility] [address] [id number]. Lui Fonseca Cholesterol [Mass/Vol] 149 mg/dL Normal <=200 Th [facility] Comment on above: Performed By: #### T MAMADOU, LIPID, CMP ####[facility] [address] [address]Dr. Lui Fonseca Cholesterol in HDL [Mass/Vol] 55 mg/dL Normal 40-60 [facility] Comment on above: Performed By: #### T SH, LIPID, CMP ####[facility] [address] [id number]. Lui Fonseca Cholesterol in LDL [Mass/Vol] 61.4 mg/dL Normal [facility] Comment on above: Performed By: #### T MAMADOU, LIPID, CMP ####[facility] [address] [address]Dr. Lui Fonseca Cholesterol.total/Chol esterol in HDL [Mass ratio] 2.7 {ratio} Normal [facility] Comment on above: Performed By: #### T MAMADOU, LIPID, CMP ####[facility] [address] [address]Dr. Gabilan Fonseca HDL NORMAL > or = 60 mg/dl - LO W CARDIOVASCULAR RISK <40 mg/dl - HIGH CARDIOVASCULAR RISK Normal [facility] [place] Comment on above: Performed By: #### T MAMADOU, LIPID, CMP ####[facility] [address] [address]Dr. Lui Fonseca LDL CALC NORMAL SEE BELOW Normal [facility] Comment on above: Result Comment: <100 mg/dl OPTIMAL 100 - 129 mg/dl NEAR OR ABOVE OPTIMAL 130 - 159 mg/dl BORDERLINE HIGH 160 - 189 mg/dl HIGH >190 mg/dl VERY HIGH Performed By: #### T SH, LIPID, CMP ####[facility] [address] [address]Dr. Lui Fonseca Triglyceride [Mass/Vol] 163 mg/dL Critically high <=150 [facility] Comment on above: Performed By: #### T SH, LIPID, CMP ####[facility] [address] [address]Dr. Lui Fonseca VLDL CALC 32.6 mg/dL Normal [facility] Comment on above: Performed By: #### T MAMADOU, LIPID, CMP ####[facility] [address] [address]Dr. Lui Fonseca OCC BLD IMMUNO SCREENon 12-19 OCCULT BLOOD Negative Normal NEGATIVE [facility] Comment on above: Performed By: #### O BSCRN #### [facility] [address] [address] [address] Lui Fonseca PROF 14(COMP METB)on 022 Albumin [Mass/Vol] 4.1 g/dL Normal 3.4-5.0 [facility] Comment on above: Performed By: #### T MAMADOU, LIPID, CMP ####[facility] [address] [address]Dr. Lui Fonseca Albumin/Globulin [Mass ratio] 1.2 {ratio} Normal [facility] [place] Comment on above: Performed By: #### T MAMADOU, LIPID, CMP ####[facility] [address] [address]Dr. Lui Fonseca ALP [Catalytic activity/Vol] 86 U/L Normal 46-116 [facility] [place] Comment on above: Performed By: #### T MAMADOU, LIPID, CMP ####[facility] [address] [address]Dr. Lui Fonseca ALT [Catalytic activity/Vol] 27 U/L Normal 14-59 [facility] Comment on above: Performed By: #### T MAMADOU, LIPID, CMP ####[facility] [address] [address]Dr. Lui Fonseca Anion gap [Moles/Vol] 14.1 mmol/L Normal [facility] Comment on above: Performed By: #### T SH, LIPID, CMP ####[facility] [address] [address]Dr. Lui Fonseca AST [Catalytic activity/Vol] 15 U/L Normal 15-37 [facility] Comment on above: Performed By: #### T SH, LIPID, CMP ####[facility] [address] [address]Dr. Lui Fonseca Bilirubin [Mass/Vol] 0.6 mg/dL Normal 0.2-1.0 [facility] Comment on above: Performed By: #### T SH, LIPID, CMP ####[facility] [address] [address]Dr. Lui Fonseca Calcium [Mass/Vol] 9.1 mg/dL Normal 8.5-10.1 [facility] Comment on above: Performed By: #### T SH, LIPID, CMP ####[facility] [address] [address]Dr. Lui Fonseca Chloride [Moles/Vol] 104 mmol/L Normal 98-107 [facility] Comment on above: Performed By: #### T SH, LIPID, CMP ####[facility] [address] [place], [place] [address]Dr. Lui Fonseca CO2 [Moles/Vol] 26.8 mmol/L Normal 21.0-32.0 [facility] Comment on above: Performed By: #### T SH, LIPID, CMP ####[facility] [address] [place], [place] [address]Dr. Lui Fonseca Creatinine [Mass/Vol] 0.84 mg/dL Normal 0.55-1.02 [facility] Comment on above: Performed By: #### T SH, LIPID, CMP ####[facility] [address] [place], [place] [address]Dr. Lui Fonseca EGFR-AF EQUATORIAL GUINEAN >60 Normal >=60 [facility] Comment on above: Performed By: #### T SH, LIPID, CMP ####[facility] [address] [place], [place] [address]Dr. Lui Fonseca EGFR-NON AF EQUATORIAL GUINEAN >60 Normal >=60 [facility] Comment on above: Performed By: #### T SH, LIPID, CMP ####[facility] [address] [place], [place] [address]Dr. Lui Fonseca Globulin (S) [Mass/Vol] 3.3 g/dL Normal [facility] Comment on above: Performed By: #### T SH, LIPID, CMP ####[facility] [address] [address]Dr. Lui Fonseca Glucose [Mass/Vol] 93 mg/dL Normal 74-106 [facility] Comment on above: Performed By: #### T MAMADOU, LIPID, CMP ####[facility] [address] [address]Dr. Lui Fonseca Potassium [Moles/Vol] 3.9 mmol/L Normal 3.5-5.1 [facility] Comment on above: Performed By: #### T SH, LIPID, CMP ####[facility] [address] [address]Dr. Lui Fonseca Protein [Mass/Vol] 7.4 g/dL Normal 6.4-8.2 [facility] Comment on above: Performed By: #### T MAMADOU, LIPID, CMP ####[facility] [address] [place], [place] [address]Dr. Lui Fonseca Sodium [Moles/Vol] 141 mmol/L Normal 136-145 [facility] Comment on above: Performed By: #### T MAMADOU, LIPID, CMP ####[facility] [address] [place], [place] [address]Dr. Lui Fonseca Urea nitrogen [Mass/Vol] 8.0 mg/dL Normal 7.0-18.0 [facility] Comment on above: Performed By: #### T MAMADOU, LIPID, CMP ####[facility] [address] [place], [place] [address]Dr. Lui Fonseca Urea nitrogen/Creatinine [Mass ratio] 9.5 mg/mg Normal [facility] Comment on above: Performed By: #### T SH, LIPID, CMP ####[facility] [address] [address]Dr. Lui Fonseca TSHon 12-31-2021 TSH 0.539 uIU/mL Normal 0.358-3.74 0 [facility] Comment on above: Performed By: #### T SH, LIPID, CMP ####[facility] [address] [place] [address] Fonseca Vital Signs Date Time Vital Sign Value Performing Clinician Facility 01-30-2024 13:48-0400 Body height 157.5 cm Harman Sullivan MD Work Phone: [facility] 01-30-2024 13:48-0400 Body mass index (BMI) [Ratio] 28.43 kg/m2 Harman Sullivan MD Work Phone: [facility] 01-30-2024 13:48-0400 Body weight 70.5 kg Harman Sullivan MD Work Phone: [facility] 01-30-2024 13:48-0400 Diastolic blood pressure 76 mm[Hg] Harman Sullivan MD Work Phone: [facility] 01-30-2024 13:48-0400 Heart rate 91 /min Harman Sullivan MD Work Phone: [facility] 01-30-2024 13:48-0400 Systolic blood pressure 115 mm[Hg] Harman Sullivan MD Work Phone: [facility] 10-31-2023 10:14-0400 Body height 157.5 cm Harman Sullivan MD Work Phone: [facility] 10-31-2023 10:14-0400 Body mass index (BMI) [Ratio] 27.82 kg/m2 Harman Sullivan MD Work Phone: [facility] 10-31-2023 10:14-0400 Body weight 69 kg Harman Sullivan MD Work Phone: [facility] 10-31-2023 10:14-0400 Diastolic blood pressure 70 mm[Hg] Harman Sullivan MD Work Phone: [facility] 10-31-2023 10:14-0400 Heart rate 84 /min Harman Sullivan MD Work Phone: [facility] 10-31-2023 10:14-0400 Systolic blood pressure 109 mm[Hg] Harman Sullivan MD Work Phone: [facility] 09-21-2023 08:12-0400 Body height 157.5 cm Harman Sullivan MD Work Phone: [facility] 09-21-2023 08:12-0400 Body mass index (BMI) [Ratio] 27.58 kg/m2 Harman Sullivan MD Work Phone: [facility] 09-21-2023 08:12-0400 Body weight 68.4 kg Harman Sullivan MD Work Phone: [facility] 09-21-2023 08:12-0400 Diastolic blood pressure 74 mm[Hg] Harman Sullivan MD Work Phone: [facility] 09-21-2023 08:12-0400 Heart rate 84 /min Harman Sullivan MD Work Phone: [facility] 09-21-2023 08:12-0400 SaO2% (BldA) [Mass fraction] 99 % Harman Sullivan MD Work Phone: [facility] 09-21-2023 08:12-0400 Systolic blood pressure 109 mm[Hg] Harman Sullivan MD Work Phone: [facility] 05-15-2023 12:15-0500 Diastolic blood pressure 67 mm[Hg] MD Filiberto Ying Work Phone: [facility] 05-15-2023 12:15-0500 Heart rate 86 /min MD Filiberto Ying Work Phone: [facility] 05-15-2023 12:15-0500 Respiratory rate 16 /min MD Filiberto Ying Work Phone: [facility] 05-15-2023 12:15-0500 SaO2% (BldA) [Mass fraction] 100 % MD Filiberto Ying Work Phone: [facility] 05-15-2023 12:15-0500 Systolic blood pressure 125 mm[Hg] MD Filiberto Ying Work Phone: [facility] 05-15-2023 11:10-0500 Inhaled oxygen flow rate 6 L/min MD Filiberto Ying Work Phone: [facility] 05-15-2023 10:55-0500 Body temperature 98.1 [degF] MD Filiberto Ying Work Phone: [facility] 05-15-2023 09:30-0500 Body mass index (BMI) [Ratio] 25.8 kg/m2 MD Filiberto Ying Work Phone: [facility] 05-15-2023 08:55-0500 Body height 157.48 cm MD Filiberto Ying Work Phone: [facility] 05-15-2023 08:55-0500 Body weight 64 kg MD Filiberto Ying Work Phone: [facility] 04-05-2023 12:08-0500 Body temperature 98.2 [degF] MD Filiberto Ying Work Phone: [facility] 04-05-2023 12:08-0500 Diastolic blood pressure 69 mm[Hg] MD Filiberto Ying Work Phone: [facility] 04-05-2023 12:08-0500 Heart rate 87 /min MD Filiberto Ying Work Phone: [facility] 04-05-2023 12:08-0500 Respiratory rate 18 /min MD Filiberto Ying Work Phone: [facility] 04-05-2023 12:08-0500 SaO2% (BldA) [Mass fraction] 100 % MD Filiberto Ying Work Phone: [facility] 04-05-2023 12:08-0500 Systolic blood pressure 110 mm[Hg] MD Filiberto Ying Work Phone: [facility] 01-12-2023 09:35-0400 Body height 157.5 cm Maria Del Carmen Borges APRN.NAIL TECHNICIAN TEACHER Work Phone: [facility] 01-12-2023 09:35-0400 Body weight 70.31 kg Maria Del Carmen Borges ELECTRONICS ENGINEERING TECHNICIAN.NAIL TECHNICIAN TEACHER Work Phone: [facility] 01-12-2023 09:35-0400 Diastolic blood pressure 69 mm[Hg] Maria Del Carmen Borges ELECTRONICS ENGINEERING TECHNICIAN.NAIL TECHNICIAN TEACHER Work Phone: [facility] 01-12-2023 09:35-0400 Heart rate 110 /min Maria Del Carmen Borges ELECTRONICS ENGINEERING TECHNICIAN.NAIL TECHNICIAN TEACHER Work Phone: [facility] 01-12-2023 09:35-0400 SaO2% (BldA) [Mass fraction] 93 % Maria Del Carmen Bernarda ELECTRONICS ENGINEERING TECHNICIAN.NAIL TECHNICIAN TEACHER Work Phone: [facility] 01-12-2023 09:35-0400 Systolic blood pressure 110 mm[Hg] Maria Del Carmen Borges ELECTRONICS ENGINEERING TECHNICIAN.NAIL TECHNICIAN TEACHER Work Phone: [facility] 10-23-2022 14:14-0400 Diastolic blood pressure 66 mm[Hg] MD Filiberto Ying Work Phone: [facility] 10-23-2022 14:14-0400 Heart rate 100 /min MD Filiberto Ying Work Phone: [facility] 10-23-2022 14:14-0400 Systolic blood pressure 113 mm[Hg] MD Filiberto Ying Work Phone: [facility] 10-23-2022 13:50-0400 SaO2% (BldA) [Mass fraction] 99 % MD Filiberto Ying Work Phone: [facility] 09-20-2022 10:01-0400 Diastolic blood pressure 88 mm[Hg] Filiberto M Hoy Work Phone: [facility] DO Work Phone: 09-20-2022 10:01-0400 Diastolic blood pressure 84 mm[Hg] Filiberto M Hoy Work Phone: [facility] DO Work Phone: 09-20-2022 10:01-0400 Diastolic blood pressure 86 mm[Hg] Filiberto M Hoy Work Phone: [facility] 250 DO Work Phone: 09-20-2022 10:01-0400 Systolic blood pressure 120 mm[Hg] Filiberto Zoe Hoy Work Phone: [facility] 250 DO Work Phone: 09-20-2022 10:01-0400 Systolic blood pressure 122 mm[Hg] Filiberto Zoe Hoy Work Phone: [facility] 250 DO Work Phone: 09-20-2022 09:59-0400 Body height 157.48 cm Filiberto Zoe Hoy Work Phone: [facility] DO Work Phone: 09-20-2022 09:59-0400 Body mass index (BMI) [Ratio] 30.36 kg/m2 Filiberto Zoe Hoy Work Phone: [facility] 250 DO Work Phone: 09-20-2022 09:59-0400 Body surface area Derived from formula 1.77 m2 Filiberto Zoe Hoy Work Phone: [facility] 250 DO Work Phone: 09-20-2022 09:59-0400 Body weight 75.3 kg Filiberto Aguilar Hoy Work Phone: [facility] 250 DO Work Phone: 09-20-2022 09:59-0400 Diastolic blood pressure 88 mm[Hg] Filiberto Aguilar Hoy Work Phone: [facility] DO Work Phone: 09-20-2022 09:59-0400 Heart rate 85 /min Filiberto Zoe Hoy Work Phone: [facility] 250 DO Work Phone: 09-20-2022 09:59-0400 Systolic blood pressure 120 mm[Hg] Filiberto Zoe Hoy Work Phone: [facility] 250 DO Work Phone: 07-28-2022 13:01-0500 Body height 157.5 cm Somjita Braxton ELECTRONICS ENGINEERING TECHNICIAN.NAIL TECHNICIAN TEACHER Work Phone: [facility] 07-28-2022 13:01-0500 Body temperature 97.81 [degF] Somjita Braxton ELECTRONICS ENGINEERING TECHNICIAN.NAIL TECHNICIAN TEACHER Work Phone: [facility] 07-28-2022 13:01-0500 Body weight 79.11 kg Somjita Braxton ELECTRONICS ENGINEERING TECHNICIAN.NAIL TECHNICIAN TEACHER Work Phone: [facility] 07-28-2022 13:01-0500 Diastolic blood pressure 59 mm[Hg] Somjita Braxton ELECTRONICS ENGINEERING TECHNICIAN.NAIL TECHNICIAN TEACHER Work Phone: [facility] 07-28-2022 13:01-0500 Heart rate 85 /min Somjita Braxton ELECTRONICS ENGINEERING TECHNICIAN.NAIL TECHNICIAN TEACHER Work Phone: [facility] 07-28-2022 13:01-0500 Systolic blood pressure 117 mm[Hg] Somjita Braxton ELECTRONICS ENGINEERING TECHNICIAN.NAIL TECHNICIAN TEACHER Work Phone: [facility] Encounters Encounter Date Encounter Type Care Provider Facility Start: 01-30-2024 End: 01-30-2024 ambulatory HARMAN SULLIVAN Facility:[facility] Start: 01-30-2024 End: 01-30-2024 Patient encounter procedure Harman Sullivan MD Work Phone: Neurology Comment on above: Chronic migraine wit hout aura, with intractable migraine, so stated, with status migrainosus (Primary Dx); Neck pain Start: 01-28-2024 End: 01-28-2024 Patient encounter procedure MD Filiberto Ying Work Phone: [facility] Start: 01-28-2024 End: 01-28-2024 ambulatory MD Filiberto Ying Work Phone: [facility] Work Phone: Start: 11-09-2023 ambulatory [facility] Neurology Comment on above: Paperwork Start: 11-09-2023 E-mail encounter kennedy aguilar caregiver [facility] Provider Neurology Start: 10-31-2023 Telephone encounter Harman fraser MD Work Phone: Neurology Comment on above: Appointment Start: 10-31-2023 End: 10-31-2023 ambulatory HARMAN SULLIVAN Facility:[facility] Start: 10-31-2023 End: 10-31-2023 Patient encounter procedure Harman Sullivan MD Work Phone: Neurology Comment on above: Chronic migraine wit hout aura, with intractable migraine, so stated, with status migrainosus (Primary Dx); Neck pain Start: 10-18-2023 Get Medical Advice Maria Del Carmen caraballo ELECTRONICS ENGINEERING TECHNICIAN.NAIL TECHNICIAN TEACHER Work Phone: Neurology Comment on above: Med refill Refill Request Start: 10-11-2023 Telephone encounter Harman fraser MD Work Phone: Neurology Comment on above: Insurance Authorizat ion (Botox) Start: 10-03-2023 ambulatory Maria Del Carmen Giles PRN.NAIL TECHNICIAN TEACHER Work Phone: Neurology Comment on above: Fmla Start: 09-21-2023 Telephone encounter Harman fraser MD Work Phone: Neurology Comment on above: Request Outside [facility] Records Start: 09-21-2023 End: 09-21-2023 ambulatory HARMAN SULLIVAN Facility:[facility] Start: 09-21-2023 End: 09-21-2023 Patient encounter procedure Harman Sullivan MD Work Phone: Neurology Comment on above: Chronic migraine wit hout aura, with intractable migraine, so stated, with status migrainosus (Primary Dx); Neck pain; RLS (restless legs syndrome) Start: 09-15-2023 Refill Maria Del Carmen PHAM.NAIL TECHNICIAN TEACHER Work Phone: Neurology Comment on above: Refill Request Start: 09-04-2023 End: 09-04-2023 ambulatory Maria Del Carmen Borges APRN.NAIL TECHNICIAN TEACHER Work Phone: Neurology Comment on above: Cervical dystonia (P rimary Dx) Start: 09-04-2023 End: 09-04-2023 Telemedicine consultation with patient Maria Del Carmen Borges APRN.NAIL TECHNICIAN TEACHER Work Phone: [facility] Start: 09-03-2023 E-mail encounter fro m caregiver Maria Del Carmen Borges ELECTRONICS ENGINEERING TECHNICIAN.NAIL TECHNICIAN TEACHER Work Phone: Neurology Start: 09-03-2023 Patient encounter procedure Maria Del Carmen Borges ELECTRONICS ENGINEERING TECHNICIAN.NAIL TECHNICIAN TEACHER Work Phone: Neurology Comment on above: appointment Start: 07-30-2023 End: 07-30-2023 ambulatory VALERIO SANZ Not Available Start: 05-23-2023 End: 05-23-2023 ambulatory DANO PYLE Not Available Start: 05-15-2023 End: 05-15-2023 Admission to same day surgery center MD Filiberto Ying Work Phone: [facility] [place] Start: 05-15-2023 End: 05-15-2023 ambulatory MD Filiberto Ying Work Phone: [facility] Work Phone: Start: 05-01-2023 End: 05-01-2023 Patient encounter procedure MD Filiberto Ying Work Phone: [facility] Work Phone: Start: 05-01-2023 End: 05-01-2023 ambulatory MD Filiberto Ying Work Phone: [facility] Work Phone: Start: 04-05-2023 End: 04-05-2023 Admission to same day surgery center MD Filiberto Ying Work Phone: [facility] Start: 04-05-2023 End: 04-05-2023 ambulatory MD Filiberto Ying Work Phone: [facility] Work Phone: Start: 02-19-2023 Telephone encounter Maria Del Carmen Tucker on ELECTRONICS ENGINEERING TECHNICIAN.NAIL TECHNICIAN TEACHER Work Phone: Neurology Comment on above: Results ([facility] ) Start: 02-09-2023 Telephone encounter Maria Del Carmen Tucker on ELECTRONICS ENGINEERING TECHNICIAN.NAIL TECHNICIAN TEACHER Work Phone: Neurology Comment on above: Results ([facility] ) Start: 02-07-2023 End: 02-07-2023 Patient encounter procedure MD Filiberto Ying Work Phone: [facility] [place] Work Phone: Start: 02-07-2023 End: 02-07-2023 ambulatory MD Filiberto Ying Work Phone: [facility] Work Phone: Start: 01-19-2023 Orders Only Maria Del Carmen Giles PRN.NAIL TECHNICIAN TEACHER Work Phone: Neurology Start: 01-17-2023 ambulatory Maria Del Carmen Giles PRN.NAIL TECHNICIAN TEACHER Work Phone: Neurology Comment on above: Labs and rx Start: 01-12-2023 End: 01-12-2023 Patient encounter procedure Maria Del Carmen Borges ELECTRONICS ENGINEERING TECHNICIAN.NAIL TECHNICIAN TEACHER Work Phone: Neurology Comment on above: Cervical dystonia (P rimary Dx); Neck tightness; RLS (restless legs syndrome) Start: 01-08-2023 Chart Update Filiberto Ying Work Phone: [facility] 320 DO Work Phone: Start: 12-28-[address] Soraya Ford acility:[id number] Start: 11-14-2022 ambulatory Soraya Cage Facility:1 [id number] Start: 11-10-2022 FU, Provider: Saeed Castellanos, Status: Pen, Time: 8:50 AM Filiberto Ying Work Phone: [facility] Work Phone: Start: 11-10-[address] Saeed Castellanos Facility: Start: 11-02-[address] Saeed bahena [facility] Facility: Start: 11-02-[address] Saeed Castellanos Facility: Start: 10-23-2022 End: 10-23-2022 ambulatory MD Filiberto Ying Work Phone: [facility] Work Phone: Start: 10-23-2022 End: 10-23-2022 Patient encounter procedure MD Filiberto Ying Work Phone: [facility] Work Phone: Start: 10-23-2022 ambulatory Romero Jones Facjuwan lity:[id number] Start: 10-12-2022 End: 10-12-2022 Patient encounter procedure MD Filiberto Ying Work Phone: [facility] Work Phone: Start: 10-06-[address] FILIBERTO YING . Facili ty:H1 Start: 09-29-2022 EVENT [facility], Provider : MOOKIE YOUNG PLANNING OFFICIAL 1,[id number], Status: Pen, Time: 1:00 PM Filiberto Ying Work Phone: [facility] 250 DO Work Phone: Start: 09-29-2022 Patient encounter procedure Filiberto Ying Work Phone: [facility] 250 DO Work Phone: Start: 09-29-[address] Saeed Castellanos Facility: Start: 09-20-2022 Office consultation new/estab patient 60 min Filiberto Ying Work Phone: [facility] 250 DO Work Phone: Start: 09-20-[address] Saeed Castellanos Facility: Start: 08-11-2022 End: 08-11-2022 ambulatory Nayely Limon APRN.NAIL TECHNICIAN TEACHER Work Phone: Rheumatology Comment on above: Neck pain, chronic ( Primary Dx); Fibromyalgia Start: 08-11-2022 End: 08-11-2022 Telemedicine consultation with patient Artfarzaneh Naqvifuad KEYESNAIL TECHNICIAN TEACHER Work Phone: [facility] Start: 07-28-2022 End: 07-28-2022 Subsequent hospital visit by physician Xr Main A21 Radiology Comment on above: Neck pain, chronic [ M54.2, G89.29] Start: 07-28-2022 End: 07-28-2022 Patient encounter procedure Nayely Limon APRN.CNP Work Phone: Rheumatology Comment on above: Neck [...] Ying Work Phone: [facility] [place] Start: 01-09-2022 End: 01-09-[address] FABY RAYMOND . Facility:H1 Start: 01-03-2022 Encounter for genera l adult medical examination without abnormal findings DR FILIBERTO YING . [facility] Start: 12-31-2021 End: 01-01-[address] FILIBERTO YING . Facility:H1 Start: 12-31-2021 End: 01-01-2022 Encounter for general adult medical examination without abnormal findings DR FILIBERTO YING . Facility:H1 Start: 11-18-2021 End: 11-18-2021 Patient encounter procedure MD Filiberto Ying Work Phone: [facility] [place] Procedures Date Procedure Procedure Detail Performing Clinician [...] Radex spine cervical 4 or 5 views Somjita Braxton ELECTRONICS ENGINEERING TECHNICIAN.NAIL TECHNICIAN TEACHER Work Phone: Start: 07-28-2022 Radiologic exam chest 2 views Somjita Braxton ELECTRONICS ENGINEERING TECHNICIAN.NAIL TECHNICIAN TEACHER Work Phone: Start: 11-18-2021 MRI of head MD Filiberto Ying Work Phone: Cholecystectomy Filiberto M Ho y Work Phone: Esophagogastroduodenoscopy D ouglas Zoe Petersty Work Phone: Hysterectomy Filiberto M Hoy Work Phone: Laparoscopy Filiberto M Frany Work Phone: Tonsillectomy and adenoidectomy Filiberto M Hoy Work Phone: NEGATED: Highlighted row has not occurred! Total colonoscopy Filiberto M Frany Work Phone: Plan of Treatment Date Care Activity Detail Author Start: 01-03-2030 Urine microalbumin profile [facility] Start: 10-29-2024 End: 10-29-2024 Patient encounter procedure 10/29/2024 4:30 PM EDT Office Visit Neurology [address] [place] [phone] Harman Sullivan MD [address] [place], [place] [id number] F/u hold for botox Neurology Comment on above: F/u hold for botox Start: 07-30-2024 End: 07-30-2024 Patient encounter procedure 07/30/2024 4:30 PM EDT Office Visit Neurology [address] [place] [phone] Harman Sullivan MD [address] [place], [place] [phone] Botox Neurology Comment on above: Botox Start: 04-30-2024 End: 04-30-2024 Patient encounter procedure 04/30/2024 8:30 AM EST Office Visit Neurology [address] [place] [phone] Harman Sullivan MD [address] [place], [place] [phone] Botox Neurology Comment on above: Botox Start: 01-30-2024 End: 01-30-2024 Patient encounter procedure 01/30/2024 2:00 PM EDT Office Visit Neurology [address] [place] [phone] Harman Sullivan MD [address] [place], [place] [id number] Botox Neurology Comment on above: Botox Start: 01-20-2024 Covid-19 Vaccine ( season) Covid-19 Vaccine ( season) [facility] Start: 01-20-2024 Influenza vaccination C [facility] Start: 11-06-2023 End: 11-06-2023 Patient encounter procedure 11/06/2023 10:30 AM EDT Office Visit Neurology [address] [place] [address] Harman Sullivan MD [address] [place], [place] [id number] Three week follow up Neurology Comment on above: Three week follow up Start: 10-31-2023 End: 10-31-2023 Patient encounter procedure 10/31/2023 10:30 AM EDT Office Visit Neurology [address] [place] [phone] Harman Sullivan MD [address] [place], [place] [phone] Botox auth approved Neurology Comment on above: Botox auth approved Start: 09-21-2023 End: 09-21-2023 Patient encounter procedure 09/21/2023 8:30 AM EDT Office Visit Neurology [address] [place] [address] Harman Sullivan MD [address] [place] [address] [place], [place] [phone] Cervical dystonia [G24.3] Neurology Comment on above: Cervical dystonia [G 24.3] Start: 05-21-2023 Behavioral Health Screening Behavioral Health Screening [facility] Start: 05-15-2023 [facility] Start: 05-15-2023 [facility] Start: 04-05-2023 [facility] Start: 03-16-2023 FUV, Provider: Soraya Cage, Status: Pen, Time: 1:00 PM FUV, Provider: Soraya Cage, Status: Pen, Time: 1:00 PM [place] [address] DO Work Phone: Start: 01-19-2023 Covid-19 Vaccine ( season) Covid-19 Vaccine ( season) [facility] Start: 01-19-2023 Influenza vaccination C [facility] Start: 01-12-2023 End: 03-14-2023 CBC panel - Blood by Automated count CBC Lab Routine RLS (restless legs syndrome) Expected: 01/12/2023, Expires: 03/14/2023 [facility] Work Phone: Comment on above: Expected: 01/12/2023 , Expires: 03/14/2023 Start: 01-12-2023 End: 03-14-2023 Cobalamin (Vitamin B12) [Mass/volume] in Serum or Plasma VITAMIN B12 BLOOD Lab Routine RLS (restless legs syndrome) Expected: 01/12/2023, Expires: 03/14/2023 [facility] Work Phone: Comment on above: Expected: 01/12/2023 , Expires: 03/14/2023 Start: 01-12-2023 End: 03-14-2023 Comprehensive metabolic 2000 panel - Serum or Plasma COMP METABOLIC PANEL Lab Routine RLS (restless legs syndrome) Expected: 01/12/2023, Expires: 03/14/2023 [facility] Work Phone: Comment on above: Expected: 01/12/2023 , Expires: 03/14/2023 Start: 01-12-2023 End: 03-14-2023 Ferritin [Mass/volume] in Serum or Plasma FERRITIN BLD Lab Routine RLS (restless legs syndrome) Expected: 01/12/2023, Expires: 03/14/2023 [facility] Work Phone: Comment on above: Expected: 01/12/2023 , Expires: 03/14/2023 Start: 01-12-2023 End: 03-14-2023 Iron and Iron binding capacity panel - Serum or Plasma IRON + TIBC Lab Routine RLS (restless legs syndrome) Expected: 01/12/2023, Expires: 03/14/2023 [facility] Work Phone: Comment on above: Expected: 01/12/2023 , Expires: 03/14/2023 Start: 11-14-2022 NPVRFRL, Provider: Soraya Cage, Status: Pen, Time: 4:20 PM NPVRFRL, Provider: Soraya Cage, Status: Pen, Time: 4:20 PM [facility] Work Phone: Start: 11-10-2022 FUV, Provider: Saeed Castellanos, Status: Pen, Time: 8:50 AM FUV, Provider: Saeed Castellanos, Status: Pen, Time: 8:[address] [facility] 250 DO Work Phone: Start: 10-23-2022 SURGNON, Provider: Romero Jones, Status: Pen, Time: 2:00 PM [facility], Provider: Romero Jones, Status: Pen, Time: 2:00 PM [facility] 250 DO Work Phone: Start: 09-29-2022 EVENT [facility], Provider : MOOKIE YOUNG PLANNING OFFICIAL 1,[id number], Status: Pen, Time: 1:00 PM [facility], Provider: MOOKIE YOUNG PLANNING OFFICIAL 1,[id number], Status: Pen, Time: 1:00 PM [facility] 250 DO Work Phone: Start: 05-21-2022 DEPRESSION ASSESSMENT DEPRESSION ASS ESSMENT [facility] Start: 01-19-2022 Influenza vaccination INFLUENZA (#1) [facility] Start: 2017 HPV TESTING HPV TESTING [facility] Start: 2017 Screening for malign ant neoplasm of cervix HPV Testing [facility] Start: 01-07-2008 PAP TESTING PAP TESTING [facility] Start: 01-07-2008 Screening for malign ant neoplasm of cervix [facility] Start: 2006 Hepatitis B Vaccine (1 of 3 - 19+ 3-dose series) Hepatitis B Vaccine (1 of 3 - 19+ 3-dose series) [facility] Start: 2005 Anxiety Screening Anxiety Screening [facility] Start: 2005 Depression Screening Depression Scre ening [facility] Start: 2005 HEPATITIS C SCREENING HEPATITIS C [facility] Start: 2005 Hepatitis C screening Hepatitis C [facility] Start: 2005 HIV SCREENING HIV SCREENING [facility] Start: 2005 HIV screening HIV Screening [facility] Start: 1987 COVID-19 VACCINE (#1) COVID-19 VACCI NE (#1) [facility] Start: 1987 HEPATITIS B (1 of 3 - 3-dose series) HEPATITIS B (1 of 3 - 3-dose series) [facility] Start: 1987 Hepatitis B Vaccine (1 of 3 - 3-dose series) Hepatitis B Vaccine (1 of 3 - 3-dose series) [facility] Patient referral [facility] Work Phone: [facility] Immunizations Immunization Date Immunization Notes Care Provider Alina treviño 01-04-2020 tetanus toxoid, redu hawa diphtheria toxoid, and acellular pertussis vaccine, adsorbed Xr A21 [facility] 07-27-2016 tetanus toxoid, redu hawa diphtheria toxoid, and acellular pertussis vaccine, adsorbed Xr A21 [facility] Payers Date Payer Category Payer Private Health Insurance [id number] 2022 Private Health Insurance [id number] 2022 Medicaid [place] [employer] [place] [employer] [id number] 2022-Present [phone] [place] [address] Medicaid [id number] 1987 Unknown [id number] 2.16.840.1.328489.3.579.2. 593 1987 Unknown [id number] 2.16.840.1.413261.3.579.2. 593 1987 Unknown [id number] 2.16.840.1.260167.3.579.2. 593 1987 Unknown [id number] 2.16.840.1.828060.3.579.2. 593 1987 Unknown [id number] 2.16.840.1.120068.3.579.2. 593 1987 Unknown [id number] 2.16.840.1.169396.3.579.2. 593 1987 Unknown [id number] 2.16.840.1.364632.3.579.2. 593 1987 Unknown [id number] 2.16.840.1.862097.3.579.2. 593 1987 Unknown [id number] 2.16.840.1.405047.3.579.2. 593 1987 Unknown [id number] 2.16.840.1.360052.3.579.2. 1068 1987 Unknown [id number] 2.16.840.1.895389.3.579.2. 356 1987 Unknown [id number] 2.16.840.1.145602.3.579.2. 356 1987 Unknown [id number] 2.16.840.1.120029.3.579.2. 356 1987 Unknown [id number] 2.16.840.1.815151.3.579.2. 356 1987 Unknown [id number] 2.16.840.1.201477.3.579.2. 356 1987 Unknown [id number] 2.16.840.1.863371.3.579.2. 356 1987 Unknown [id number] 2.16.840.1.163080.3.579.2. 356 1987 Unknown [id number] 2.16.840.1.817571.3.579.2. 1259 1987 Unknown [id number] 2.16.840.1.480167.3.579.2. 1259 1959 Medicaid [id number] Medicaid [place] Advantage [id number] Self-pay Self Pay [id number] Unknown [place] BC/BS [id number] Unknown [id number] Unknown HCAP/HFA/FAP Active [id number] Social History Date Type Detail Facility Start: 06-13-2012 End: 12-24-2020 Tobacco smoking status NHIS Never smoked tobacco (finding) [facility] Start: 1987 Sex Assigned At Female F [facility] Start: 06-13-2012 Tobacco use and exposure Smokeless tobacco non-user [facility] Work Phone: Start: 07-28-2022 End: 01-30-2024 Alcohol intake Current non-drinker of alcohol (finding) [facility] Start: 01-12-2023 End: 01-30-2024 No caffeine use No caffeine use [facility] Start: 01-12-2023 End: 01-30-2024 Tobacco use panel [facility] Adult Depression Screening Assessment 2 [facility] Start: 07-28-2022 Gender identity Identifies as female gender (finding) [facility] Start: 07-28-2022 Sexual orientation Heterosexual (fin dayron) [facility] Goals Date Patient Goal Desired Activity /State Clinical Notes 02-16-2022 to 01-30-2024 Harman Sullivan MD - 01/30/2024 1:49 PM EDTTelephone Encounter - Harman Sullivan MD - 11/01/2023 9:17 AM EDTTelephone Encounter - Harman Sullivan MD - 11/01/2023 9:17 AM EDTPatient Instructions Note Date & Type Note Facility 01-30-2024 Note HNO ID: [id number] Author: HARMAN SULLIVAN MD Service: ? Author Type: Physician Type: Progress Notes Filed: 01/30/2024 14:36 Note Text: BOTOX PREEMPT PROTOCOL Total headache days per month: Slight ACOSTA daily, around once a month gets a bad episode of headache / spasm which is a significant improvement Severity of headaches: Mild, Moderate, and Severe Botox effective: YES The risks, benefits and anticipated outcomes of the procedure, the risks and benefits of the alternatives to the procedure, and the roles and tasks of the personnel to be involved, were discussed with the patient. The patient has given written informed consent to the procedure and agrees to proceed. Yes Treatment # 2 with me, 10+ in past BOTOX brought in by patient? No Lot #: [id number] Exp: 03/2026 Dilution: 5 units/0.1 ml (100 unit vial [...] Optional follow pain # units L R Bag Shop Worker 10 units divided in 2 sites XXXXXXX Procerus 5 units in 1 site XXXXXXX Frontalis 20 units divided in 4 sites XXXXXXX Temporalis 40 units divided in 8 sites Occipitalis 30 units divided in 6 sites Cervical PSPs 20 units divided in 4 sites XXXXXXX Trapezius 40 units right / 35 units left over 3 sites each Total 200 units Total Units used: 200 Total Units wasted: 0 Patient did tolerate procedure. Change in Treatment Plan? No Harman Sullivan MD [facility] 01-30-2024 History of Presen t illness Narrative BOTOX PREEMPT PROTOCOL Total headache days per month: Slight ACOSTA daily, around once a month gets a bad episode of headache / spasm which is a significant improvement Severity of headaches: Mild, Moderate, and Severe Botox effective: YES The risks, benefits and anticipated outcomes of the procedure, the risks and benefits of the alternatives to the procedure, and the roles and tasks of the personnel to be involved, were discussed with the patient. The patient has given written informed consent to the procedure and agrees to proceed. Yes Treatment # 2 with me, 10+ in past BOTOX brought in by patient? No Lot #: [id number] Exp: 03/2026 Dilution: 5 units/0.1 ml (100 unit vial [...] Optional follow pain # units L R Bag Shop Worker 10 units divided in 2 sites XXXXXXX Procerus 5 units in 1 site XXXXXXX Frontalis 20 units divided in 4 sites XXXXXXX Temporalis 40 units divided in 8 sites Occipitalis 30 units divided in 6 sites Cervical PSPs 20 units divided in 4 sites XXXXXXX Trapezius 40 units right / 35 units left over 3 sites each Total 200 units Total Units used: 200 Total Units wasted: 0 Patient did tolerate procedure. Change in Treatment Plan? No Harman Sullivan MD documented in this encounter [facility] 11-01-2023 Telephone encounter Note We may need to start reserving some slots for Botox if I'm booking out more than 3 months. Is that something escalating to admin can accomplish? Maybe having like 3 follow up slots a week for botox that revert to regular if not booked a few weeks before that date. [facility] 11-01-2023 Miscellaneous Notes We may need to [...] 29 and after. documented in this encounter [facility] 10-31-2023 Note HNO ID: [id number] Author: HARMAN SULLIVAN MD Service: ? Author [...] BOTOX brought in by patient? No Lot #:[id number] Exp: 10/2025 Dilution: 5 units/0.1 ml (100 [...] Optional follow pain # units L R Bag Shop Worker 10 units divided in 2 sites XXXXXXX [...] in Treatment Plan? No Harman Sullivan MD [facility] 10-31-2023 History of Presen t illness Narrative [...] BOTOX brought in by patient? No Lot #:[id number] Exp: 10/2025 Dilution: 5 units/0.1 ml (100 [...] Optional follow pain # units L R Bag Shop Worker 10 units divided in 2 sites XXXXXXX [...] Harman Sullivan MD documented in this encounter [facility] 10-31-2023 Telephone encounter Note Placed at desk for review. [facility] 10-31-2023 Miscellaneous Notes Placed at desk for review. Patient brought in [facility] paperwork for Dr. Sullivan to fill out. Forms placed in providers mailbox. documented in this encounter [facility] 10-31-2023 Telephone encounter Note Patient needs a botox appointment slot opened anytime January 29 and after. [facility] 10-31-2023 Telephone encounter Note Patient brought in [facility] paperwork for Dr. Sullivan to fill out. Forms placed in providers mailbox. [facility] 10-19-2023 Telephone encounter Note Per Epic referral, Botox is approved. 10/16/23 to 10/14/24 200 units every 12 weeks Called patient, and she is agreeable to using the SunOctober 30 slot to get her Botox in [place]. Per Dr. Sullivan, she does not need to then also keep her November 05 appt. [facility] 10-19-2023 Miscellaneous Notes Per Epic referral, Botox is approved. 10/16/23 to 10/14/24 200 units every 12 weeks Called patient, and she is agreeable to using the SunOctober 30 slot to get her Botox in [place]. Per Dr. Sullivan, she does not need to then also keep her November 05 appt. Prior Authorization PENDING Medication/ Treatment: BOTOX Submitted Via Epic Referral Attempted to submit via phone to expedite request, but plan does not allow this. documented in this encounter [facility] 10-18-2023 Miscellaneous Notes Images from the original note were not included. Maria Del Carmen Borges APRN.NAIL TECHNICIAN TEACHER You6 minutes ago (8:35 AM) I can for this time, but Dr. Hernandez moving forward as he is managing her neck tightness. PRATIBHA Mccullough, RN, BA documented in this encounter [facility] 10-18-2023 Telephone encounter Note Images from the original note were not included. Maria Del Carmen Borges APRN.NAIL TECHNICIAN TEACHER You6 minutes ago (8:35 AM) I can for this time, but Dr. Hernandez moving forward as he is managing her neck tightness. PRATIBHA Mccullough, RN, BA [facility] Work Phone: 10-11-2023 Telephone encounter Note Prior Authorization PENDING Medication/ Treatment: BOTOX Submitted Via Epic Referral Attempted to submit via phone to expedite request, but plan does not allow this. [facility] 10-03-2023 Telephone encounter Note Images from the original note were not included. Maria Del Carmen Borges APRN.NAIL TECHNICIAN TEACHER You6 minutes ago (3:03 PM) As she is now working with movement disorder for this concern, I would defer this to their team. PRATIBHA Mccullough, RN, BA [facility] Work Phone: 10-03-2023 Miscellaneous Notes Images from the original note were not included. Maria Del Carmen Borges APRN.NAIL TECHNICIAN TEACHER You6 minutes ago (3:03 PM) As she is now working with movement disorder for this concern, I would defer this to their team. PRATIBHA Mccullough, RN, BA documented in this encounter [facility] 09-21-2023 Instructions Harman Sullivan MD - 09/21/2023 [...] can increase further documented in this encounter [facility] 09-21-2023 Telephone encounter Note Requested image transfer from [facility] for most recent head/ neck imaging. [facility] 09-21-2023 Note HNO ID: [id number] Author: HARMAN SULLIVAN MD Service: ? 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 [facility] 09-21-2023 History of Presen t illness Narrative [...] Maria Del Carmen Borges CNP Assessment/Plan Assessment & Plan: Brittanie Garcia is a 38 year old right-handed female with a history of chronic migraine, neck pain previously diagnosed as cervical dystonia, and RLS who presents to [facility] care. Her examination demonstrates normal head position with [...] next month for Botox. Harman Sullivan MD [facility] Neurology documented in this encounter [facility] 09-21-2023 Miscellaneous Notes Requested image transfer from [facility] for most recent head/ neck imaging. documented in this encounter [facility] 09-13-2023 Telephone encounter Note Images from the original note were not included. Maria Del Carmen Borges APRN.NAIL TECHNICIAN TEACHER You 58 minutes ago (1:58 PM) Keep the appointment until she sees Dr. Sullivan on September 20. PRATIBHA Mccullough, RN, BA [facility] Work Phone: 09-13-2023 Miscellaneous Notes Images from the original note were not included. Maria Del Carmen Borges APRN.NAIL TECHNICIAN TEACHER You 58 minutes ago (1:58 PM) Keep the appointment until she sees Dr. Sullivan on September 20. PRATIBHA Mccullough, RN, BA documented in this encounter [facility] 09-04-2023 History of Presen t illness Narrative Brittanie Garcia is a 38 year old female. Patient presents with: Follow Up Today I had the opportunity to have a virtual visit with Brittanie Garcia I have communicated my name and active licensure. The patient's identity and physical location were verified at the time of this visit. Either the patient or their legal key account representative has been informed of the risks [...] seeing the movement disorder clinic here at [facility] for an opinion about her cervical dystonia [...] which included preparing to see the patient, unbd-ic-ycfb patient care, completing clinical documentation, obtaining and/or reviewing separately obtained history, and counseling and educating the patient/family/caregiver. There is no problem list on file for this patient. No orders found for this visit on 09/04/23. Maria Del Carmen Borges MSN, ELECTRONICS ENGINEERING TECHNICIAN, INCENDIARY POWDER MIXER-C documented in this encounter [facility] 09-04-2023 Note HNO ID: [id number] Author: MARIA DEL CARMEN BORGES APRN.ZULMA Service: [...] visit. Either the patient or their legal key account representative has been informed of the risks [...] seeing the movement disorder clinic here at [facility] for an opinion about her cervical dystonia [...] with her Mari (more content not included)... [facility] 02-19-2023 Miscellaneous Notes Images from the original note were not included. Maria Del Carmen Borges APRN.NAIL TECHNICIAN TEACHER You 1 minute ago (12:27 PM) Thank you. This is a normal value. PRATIBHA Louis, RN, BA Images from the original note were not included. Evonne GAMBOA BSN, RN, BA Scanned in medical records from [facility] for review documented in this encounter [facility] 02-09-2023 Miscellaneous Notes Images from the original note were not included. Maria Del Carmen Borges APRN.ZULMA You 2 minutes ago (10:23 AM) Reviewed. PRATIBHA Louis, RN, BA Scanneed in medical records from [facility] for review documented in this encounter [facility] 01-19-2023 Miscellaneous Notes Images from the original note were not included. Maria Del Carmen Borges APRN.NAIL TECHNICIAN TEACHER You 21 minutes ago (8:34 AM) I sent cyclobenzaprine (Flexeril) 5 mg at bedtime as needed PRATIBHA Mccullough, RN, BA documented in this encounter [facility] 01-12-2023 History of Presen t illness [...] Most likely receiving 65 units between procerus, bingo attendant, frontalis, and temporalis muscles. Only receiving 90 [...] Tizanidine Methocarbamol Metaxalone Carisoprodol She does have New[place]bron prescribed for the neck pain. 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 Finger extensor 5/5. Finger flexor 5/5. Pronation [...] clonus of ankles. Coordination: Finger-to- nose-finger and nsme-ht-knzb intact bilaterally. No ataxia of arms. No [...] seeing the movement disorder clinic here at [facility] for an opinion about her cervical dystonia [...] which included preparing to see the patient, atba-zq-uvil patient care, completing clinical documentation, obtaining and/or reviewing separately obtained history, performing a medically appropriate examination, counseling and educating the patient/family/caregiver, and ordering medications, tests, or procedures. There is no problem list on file for this patient. Office Visit on 01/12/23 CBC FERRITIN BLD IRON + TIBC VITAMIN B12 BLOOD COMP METABOLIC PANEL CONSULT TO NEUROLOGY Maria Del Carmen Borges MSN, ELECTRONICS ENGINEERING TECHNICIAN, INCENDIARY POWDER MIXER-C 1. The nursing staff and medical assistants [...] your PCP/referring physician documented in this encounter [facility] 08-11-2022 Instructions Nayely Limon APRN.ZULMA - 08/11/2022 10:44 AM EDT Please send MRI result to us. Placed a consult for neuromuscular. Please call [phone] for appointments. I would suggest to bring your MRI (CD) to this appointment. Placed a consult for functional medicine. Please call [phone] for appointments. Follow up as needed documented in this encounter [facility] 08-11-2022 History of Presen t illness Narrative Images from the original note were not included. Rheumatology FOLLOW UP VISIT Date of Service: 08/11/2022 Patient: Brittanie Garcia Medical Record: [id number] Primary Care Physician: Filiberto Ying MD Last Rheumatology visit: 07/28/2022 (with Nayely Limon) I have communicated my name and active licensure. The patient's identity and physical location were verified at the time of this visit. 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 Started Seeing pain management since April for headache and neck pain. She has Newhebron takes once a week. Hx of restless [...] Clinical Fibromyalgia Diagnostic Criteria questionnaire Questionnaire scores: Ethel sleepiness scale: 15 (Normal < 10) MDQ (mood disorder questionnaire): 6 (Normal < 7) PHQ (patient health questionnaire): depression 10 (Normal < 5), anxiety 9 (Normal < 5) Fibromyalgia evaluation: Wide spread pain scale (WPI) 7, symptom severity (SS) 9 The patient meets the 2016 ACR ([place] [employer]) revised criteria for fibromyalgia (WPI 7 AND SS 5) or (WPI 4-6 AND SS 9) with a WPI of 7 and SS of 9 [REFERENCE: David Campbell, Madan Dobson, Mary Brian, Gurpreet Sainz, Lex akers, Uriel Celestin, Emile Tesfaye, Florentino Manuel, Joao Manuel, Amadeo Her. 2016 Revisions to the 2010/2011 fibromyalgia diagnostic criteria. Semin Arthritis Rheum. 2016 Dec;46(3):319-329]. Fibromyalgia is a manifestation of central sensitization, [...] an optimal response to treatment. Nayely Limon APRN.NAIL TECHNICIAN TEACHER Return if symptoms worsen or fail to [...] Time: 8:44 AM documented in this encounter [facility] 07-28-2022 Instructions Nayely Limon APRN.CNP - 07/28/2022 1:58 PM EST Obtain lab and XR today Follow up in 10-14 days documented in this encounter [facility] 07-28-2022 History of Presen t illness Narrative Images from the original note were not included. Rheumatology CONSULTATION Date of Service: 07/28/2022 Patient: Brittanie Garcia Medical Record: [id number] Primary Care Physician: Filiberto Ying MD, MD Last Rheumatology visit: 07/28/2022 (with Nayely Limon) Referring Provider: Kenna Sheehan [address] [place] [id number] Brittanie Garcia is here today at request of Kenna Sheehan PA-C specifically for consultation of my opinion in regards to the chief complaint listed below. 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 Started Seeing pain management since April for headache and neck pain. She has Newhebron takes once a week. Hx of restless [...] Take 1 mg by mouth once daily. Kgckhklv-Bp-Kqt-Fe-FA (P-D CARTER PLUS) Tab Take 1 tablet [...] - XR CHEST 2V FRONTAL/LAT Nayely Limon APRN.NAIL TECHNICIAN TEACHER Return in about 10 days (around 08/07/2022). I spent a total of 75 minutes on the date of the service which included preparing to see the patient, jpsj-wu-iaef patient care, completing clinical documentation, obtaining and/or reviewing separately obtained history, performing a medically appropriate examination, counseling and educating the patient/family/caregiver, and ordering medications, tests, or procedures. Medical Decision Making: Problems: Low: Stable chronic illness Data: Unique test(s) ordered: 3+ Assessment requiring an independent historian(s) Risk: Moderate: Moderate risk from testing/treatment Medical Decision Making Level: 4 - Moderate Somjita Braxton, ELECTRONICS ENGINEERING TECHNICIAN.NAIL TECHNICIAN TEACHER Rheumatology Date: July 26, 2022 Time: 2:07 PM documented in this encounter [facility] 07-06-2022 Note CONSULTATION CONSULTATION DATE: 07/06/2022 HISTORY [...] no difference. She was also started on Newhebron 5/325 daily p.r.n., which she says is helpful. We obtained a cervical x-ray back in January, which shows very minimal pathology between C2 and C3 discs. At this time, procedures are not indicated. Medications includes New[place]bron 5/325 daily, baclofen 10 mg b.i.d., Ambien [...] time, our clinic will just maintain her New[place] 5/325 daily p.r.n. She will continue for treatments with [facility]. I did recommend, however, to continue with self massage and to trial home cervical traction. We will see the patient in three months' time to maintain her medications and patient is in agreement. [facility] 04-06-2022 Note CONSULTATION PAIN MANAGEMENT CONSULTATION [...] stated that today she has seen an erp engineer due to having lock jaw episodes. 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 She describes her headaches [...] as she agrees to this plan. [facility] 03-02-2022 Note CONSULTATION CONSULTATION DATE: 03/02/2022 [...] Activities such as pushing, pulling, lying down, autopsy assistant hours and housework aggravate her pain. The [...] and all questions are answered today. [facility] 02-16-2022 Note CONSULTATION CONSULTATION DATE: 02/16/2022 [...] worsened at that time. 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 [facility] Chief complaint Narrative - Reported BRITTANIE [...] is no interventional necessity at this time [facility] [address] DO Work Phone: Chief complaint Narrative [...] has no rebound tachycardia.Recommendations, obtain Marcio of [employer] monitoring, tilt table test, refer to either EP or syncope clinic, I can follow-up on a as needed basis, as there is no interventional necessity at this time [facility] Work Phone: Chief complaint Narrative - Reported [...] Notably she has no rebound tachycardia.Recommendations, obtain [employer] monitoring, tilt table test, refer to either EP or syncope clinic, I can follow-up on a as needed basis, as there is no interventional necessity at this time [facility] [address] DO Work Phone: Chief complaint Narrative [...] has no rebound tachycardia.Recommendations, obtain Marcio of [employer] monitoring, tilt table test, refer to either EP or syncope clinic, I can follow-up on a as needed basis, as there is no interventional necessity at this time [facility] Work Phone: Evaluation note No assessment inform ation available [facility] Work Phone: Evaluation note Diagnosis Neck pain, chronic Cervicalgia [facility] Diagnosis Neck pain, chronic- Primary Cervicalgia [facility] Diagnosis Neck pain, chronic- Primary Cervicalgia Fibromyalgia Mylagia and myositis, unspecified [facility] Diagnosis Cervical dystonia- Primary Spasmodic torticollis Neck tightness Unspecified musculoskeletal disorders and symptoms referable to neck RLS (restless legs syndrome) Restless legs syndrome (RLS) [facility] Diagnosis Onset Date Resolution Status Left breast mass acute [facility] Work Phone: Evaluation note* Diagnosis Cervical dystonia- Primary Spasmodic torticollis [facility] Diagnosis Chronic migraine without aura, with intractable migraine, so stated, with status migrainosus- Primary Neck pain Cervicalgia RLS (restless legs syndrome) Restless legs syndrome (RLS) [facility] Diagnosis Chronic migraine without aura, with intractable migraine, so stated, with status migrainosus- Primary Neck pain Cervicalgia [facility] Diagnosis Chronic migraine without aura, with intractable migraine, so stated, with status migrainosus- Primary Neck pain Cervicalgia documented in this encounter [facility] Discharge instructions Additional Instructions DISCHARGE INSTRUCTIONS FOR [...] directed for pain unless a prescription was provided.[facility] Work Phone: [facility] for referral (narrative)* Diagnostic Procedure Only (Routine) - Closed Specialty Diagnoses / Procedures Referred By Contac t Referred To Contact XR IMAGING Diagnoses Neck pain, chronic Procedures XR CERV OTHER 4V AP/LAT/OBL RADEX SPINE CERVICAL 4 OR 5 VIEWS Nayely Limon APRN.CNP [address] [place] [address] Xr Imaging Referral ID Status Reason Start Date Expiration Date V isits Requested Visits Authorized [id number] Closed Auto-Generate d Referral 07/28/2022 08/27/2023 1 1 [facility] for referral (narrative)* Diagnostic Procedure Only (Routine) - Closed Specialty Diagnoses / Procedures Referred By Contac t Referred To Contact XR IMAGING Diagnoses Neck pain, chronic Procedures XR CERV OTHER 4V AP/LAT/OBL RADEX SPINE CERVICAL 4 OR 5 VIEWS Nayely Limon APRN.NAIL TECHNICIAN TEACHER [address] [place] [address] Xr Imaging Referral ID Status Reason Start Date Expiration Date V isits Requested Visits Authorized [id number] Closed Auto-Generate d Referral 07/28/2022 08/27/2023 1 1 [facility] for visit Narrative* Diagnostic Procedure Only (Routine) - Closed Specialty Diagnoses / Procedures Referred By Contac t Referred To Contact XR IMAGING Diagnoses Neck pain, chronic Procedures XR CERV OTHER 4V AP/LAT/OBL RADEX SPINE CERVICAL 4 OR 5 VIEWS Nayely Limon APRN.NAIL TECHNICIAN TEACHER [address] [place] [id number] Xr Imaging Referral ID Status Reason Start Date Expiration Date V isits Requested Visits Authorized [id number] Closed Auto-Generate d Referral 07/28/2022 08/27/2023 1 1 [facility] Chief Complaint and Reason for Visit Chief [...] pain, chronic Procedures CONSULT TO NEUROLOGY OFFICE/OUTPATIENT [facility] 60-74 MINUTES Nayely Limon APRN.NAIL TECHNICIAN TEACHER [address] [place] [address] Referral ID Status Reason Start Date Expiration Date Visits Requested Visits Authorized [id number] Authorized PCP Requested Referral 08/11/2022 08/11/2023 1 1 Specialty Diagnoses / Procedures Referred By Contac t Referred To Contact Diagnoses Fibromyalgia Procedures CONSULT TO FUNCTIONAL MEDICINE OFFICE/OUTPATIENT [facility] 60-74 MINUTES Nayely Limon APRN.NAIL TECHNICIAN TEACHER [address] [place] [id number] Referral ID Status Reason Start Date Expiration Date Visits Requested Visits Authorized [id number] Authorized PCP Requested Referral 08/11/2022 08/11/2023 1 1 Specialty Diagnoses / Procedures Referred By Contac t Referred To Contact Neurology Diagnoses Cervical dystonia Neck tightness Procedures CONSULT TO NEUROLOGY OFFICE/OUTPATIENT [facility] 60-74 MINUTES Maria Del Carmen Borges, ELECTRONICS ENGINEERING TECHNICIAN.NAIL TECHNICIAN TEACHER [id number] [place] [address] Referral ID Status Reason Start Date Expiration Date Visits Requested Visits Authorized [id number] Pending Review PCP Requested Referral 01/12/2023 01/12/2024 1 1 Specialty Diagnoses / Procedures Referred By Contac t Referred To Contact Neurology Diagnoses Cervical dystonia Procedures CONSULT TO NEUROLOGY OFFICE/OUTPATIENT [facility] 60 MINUTES Dexter Borgesle, ELECTRONICS ENGINEERING TECHNICIAN.NAIL TECHNICIAN TEACHER [address] [place] [address] Referral ID Status Reason Start Date Expiration Date Visits Requested Visits Authorized [id number] Authorized PCP Requested Referral 09/04/2023 09/03/2024 1 [...] Active Kenna Sheehan PA-C Attending Provider Active Hotel Registration Clerk Relationship Specialty Start Date End Date Filiberto Ying MD PCP - General Family Medicine 06/05/12 Kenna Sheehan PA-C [address] [place] [id number] Referring Neurology 07/19/22 Hotel Registration Clerk Relationship Specialty Start Date End Date Filiberto Ying MD PCP - General Family Medicine 06/05/12 Kenna Sheehan PA-C [address] [address] Referring Neurology 07/19/22 Hotel Registration Clerk Relationship Specialty Start Date End Date Filiberto Ying MD PCP - General Family Medicine 06/05/12 Kenna Sheehan PA-C [address] [address] Referring Neurology 07/19/22 Hotel Registration Clerk Relationship Specialty Start Date End Date Filiberto Ying MD PCP - General Family Medicine 06/05/12 Kenna Sheehan PA-C [address] [place] [phone] Referring Neurology 07/19/22 Hotel Registration Clerk Relationship Specialty Start Date End Date Filiberto Ying MD PCP - General Family Medicine 06/05/12 Kenna Sheehan PA-C [address] [address] Referring Neurology 07/19/22 Hotel Registration Clerk Relationship Specialty Start Date End Date Filiberto Ying MD PCP - General Family Medicine 06/05/12 Kenna Sheehan PA-C [address] [address] Referring Neurology 07/19/22 Hotel Registration Clerk Relationship Specialty Start Date End Date Filiberto Ying MD PCP - General Family Medicine 06/05/12 Kenna Sheehan PA-C [address] [place] [phone] Referring Neurology 07/19/22 Team Status: Inactive Member Role Status Dates Filiberto Ying MD Primary Care Provider Active Maria Del Carmen Borges APRN [facility] Attending Provider Active Hotel Registration Clerk Relationship Specialty Start Date End Date Filiberto Ying MD PCP - General Family Medicine 06/05/12 Kenna Sheehan PA-C [address] [place] [address] Referring Neurology 07/19/22 Hotel Registration Clerk Relationship Specialty Start Date End Date Filiberto Ying MD PCP - General Family Medicine 06/05/12 Kenna Sheehan PA-C [address] [place] [address] Referring Neurology 07/19/22 Hotel Registration Clerk Relationship Specialty Start Date End Date Filiberto Ying MD PCP - General Family Medicine 06/05/12 Kenna Sheehan PA-C [address] [place] [phone] Referring Neurology 07/19/22 Hotel Registration Clerk Relationship Specialty Start Date End Date Filiberto Ying MD PCP - General Family Medicine 06/05/12 Kenna Sheehan PA-C [address] [place] [phone] Referring Neurology 07/19/22 Hotel Registration Clerk Relationship Specialty Start Date End Date Filiberto Ying MD PCP - General Family Medicine 06/05/12 Kenna Sheehan PA-C [address] [place] [phone] Referring Neurology 07/19/22 Hotel Registration Clerk Relationship Specialty Start Date End Date Filiberto Ying MD PCP - General Family Medicine 06/05/12 Kenna Sheehan PA-C [address] [place] [address] Referring Neurology 07/19/22 Hotel Registration Clerk Relationship Specialty Start Date End Date Filiberto Ying MD PCP - General Family Medicine 06/05/12 Kenna Sheehan PA-C [address] [place] [address] Referring Neurology 07/19/22 Team Status: Inactive Member Role Status Dates Filiberto Ying MD Primary Care Provider Active Start: January 28, 2024 End: January 28, 2024 Dano Pyle DO Attending Provider Active Start: January 28, 2024 End: January 28, 2024 Hotel Registration Clerk Relationship Specialty Start Date End Date Filiberto Ying MD PCP - General Family Medicine 06/05/12 Kenna Sheehan PA-C [address] [place] [phone] Referring Neurology 07/19/22 Goals (unrecognized section and content) Goals may [...] or prosecute any alcohol or drug abuse patient.[facility] the event this information is protected by the Federal Confidentiality of Alcohol and Drug Abuse Patient Records regulations: The Federal rules restrict any use of the information to criminally investigate or prosecute any alcohol or drug abuse patient.[facility] the event this information is protected by the Federal Confidentiality of Alcohol and Drug Abuse Patient Records regulations: The Federal rules restrict any use of the information to criminally investigate or prosecute any alcohol or drug abuse patient.[facility] the event this information is protected by the Federal Confidentiality of Alcohol and Drug Abuse Patient Records regulations: The Federal rules restrict any use of the information to criminally investigate or prosecute any alcohol or drug abuse patient.[facility] the event this information is protected by the Federal Confidentiality of Alcohol and Drug Abuse Patient Records regulations: The Federal rules restrict any use of the information to criminally investigate or prosecute any alcohol or drug abuse patient.[facility] the event this information is protected by the Federal Confidentiality of Alcohol and Drug Abuse Patient Records regulations: The Federal rules restrict any use of the information to criminally investigate or prosecute any alcohol or drug abuse patient.[facility] the event this information is protected by the Federal Confidentiality of Alcohol and Drug Abuse Patient Records regulations: The Federal rules restrict any use of the information to criminally investigate or prosecute any alcohol or drug abuse patient.[facility] the event this information is protected by the Federal Confidentiality of Alcohol and Drug Abuse Patient Records regulations: The Federal rules restrict any use of the information to criminally investigate or prosecute any alcohol or drug abuse patient.[facility] HospitalIn the event this information is protected by the Federal Confidentiality of Alcohol and Drug Abuse Patient Records regulations: The Federal rules restrict any use of the information to criminally investigate or prosecute any alcohol or drug abuse patient.[facility] HospitalIn the event this information is protected by the Federal Confidentiality of Alcohol and Drug Abuse Patient Records regulations: The Federal rules restrict any use of the information to criminally investigate or prosecute any alcohol or drug abuse patient.[facility] HospitalIn the event this information is protected by the Federal Confidentiality of Alcohol and Drug Abuse Patient Records regulations: The Federal rules restrict any use of the information to criminally investigate or prosecute any alcohol or drug abuse patient.[facility] HospitalIn the event this information is protected by the Federal Confidentiality of Alcohol and Drug Abuse Patient Records regulations: The Federal rules restrict any use of the information to criminally investigate or prosecute any alcohol or drug abuse patient.[facility] HospitalIn the event this information is protected by the Federal Confidentiality of Alcohol and Drug Abuse Patient Records regulations: The Federal rules restrict any use of the information to criminally investigate or prosecute any alcohol or drug abuse patient.[facility] HospitalIn the event this information is protected by the Federal Confidentiality of Alcohol and Drug Abuse Patient Records regulations: The Federal rules restrict any use of the information to criminally investigate or prosecute any alcohol or drug abuse patient.[facility] HospitalIn the event this information is protected by the Federal Confidentiality of Alcohol and Drug Abuse Patient Records regulations: The Federal rules restrict any use of the information to criminally investigate or prosecute any alcohol or drug abuse patient.[facility] HospitalIn the event this information is protected by the Federal Confidentiality of Alcohol and Drug Abuse Patient Records regulations: The Federal rules restrict any use of the information to criminally investigate or prosecute any alcohol or drug abuse patient.[facility] HospitalIn the event this information is protected by the Federal Confidentiality of Alcohol and Drug Abuse Patient Records regulations: The Federal rules restrict any use of the information to criminally investigate or prosecute any alcohol or drug abuse patient.[facility] HospitalIn the event this information is protected by the Federal Confidentiality of Alcohol and Drug Abuse Patient Records regulations: The Federal rules restrict any use of the information to criminally investigate or prosecute any alcohol or drug abuse patient.[facility] HospitalIn the event this information is protected by the Federal Confidentiality of Alcohol and Drug Abuse Patient Records regulations: The Federal rules restrict any use of the information to criminally investigate or prosecute any alcohol or drug abuse patient.[facility] HospitalIn the event this information is protected by the Federal Confidentiality of Alcohol and Drug Abuse Patient Records regulations: The Federal rules restrict any use of the information to criminally investigate or prosecute any alcohol or drug abuse patient.[facility] HospitalIn the event this information is protected by the Federal Confidentiality of Alcohol and Drug Abuse Patient Records regulations: The Federal rules restrict any use of the information to criminally investigate or prosecute any alcohol or drug abuse patient.[facility] HospitalIn the event this information is protected by the Federal Confidentiality of Alcohol and Drug Abuse Patient Records regulations: The Federal rules restrict any use of the information to criminally investigate or prosecute any alcohol or drug abuse patient.[facility] Reason for Visit (unrecogniz ed section and content) Reason Comments Neck Pain Reason Comments Neck Pain Follow up Reason Comments New Patient Reason Comments Results [facility] Reason Comments Results [facility] Reason Comments Follow Up Reason Onset Date Comments Refill Request 09/15/2023 Reason Comments Request Outside Medical Records Reason Comments Cervical Dystonia Specialty Diagnoses / Procedures Referred By Contac t Referred To Contact Neurology Diagnoses Cervical dystonia Procedures CONSULT TO NEUROLOGY OFFICE/OUTPATIENT [facility] 60 MINUTES BernardaMaria Del Carmen, LONNY.NAIL TECHNICIAN TEACHER [id number] [place] [address] Referral ID Status Reason Start Date Expiration Date V isits Requested Visits Authorized [id number] Closed PCP Requested Referral 09/04/2023 09/03/2024 1 1 Reason Onset Date Comments Refill Request 10/18/2023 Reason Comments Insurance Authorization Botox Reason Comments Botox Injection Specialty Diagnoses / Procedures Referred By Contac t Referred To Contact ADULT NEUROLOGY Diagnoses Chronic migraine without aura, intractable, with status migrainosus Procedures BOTULINUM TOXIN A PER 1 UNIT CHEMODERVATE FACIAL/TRIGEM/CERV MUSC MIGRAINE Harman Sullivan MD [address] [place] [address] Conchis Huffman [address] [address] Referral ID Status Reason Start Date Expiration Date V isits Requested Visits Authorized [id number] Authorized 10/11/2023 10/14/2024 99 99 Reason Comments Appointment INFORMATION SOURCE (unrecogn ized section and content) DATE CREATED AUTHOR 09/07/2022 [facility] DATE CREATED AUTHOR AUTHOR'S ORGANIZ ATION 11/15/2022 [facility] DATE CREATED AUTHOR AUTHOR'S ORGANIZ ATION 01/01/2023 [facility] DATE CREATED AUTHOR AUTHOR'S ORGANIZ ATION 02/04/2023 [facility] DATE CREATED AUTHOR AUTHOR'S ORGANIZ ATION 07/30/2023 [facility] EPIC DATE CREATED AUTHOR AUTHOR'S ORGANIZ ATION 01/30/2024 [facility] DATE CREATED AUTHOR AUTHOR'S ORGANIZ ATION 02/01/2024 [facility] FOR RECORDS PERTAINING TO PATIENTS WHO ARE [...] BE BASED ON THE PRIMARY CLINICAL RECORDS. [facility] [employer]. provides no warranty or guarantee of the accuracy or completeness of information in this document.
[2024-02-18 07:33] VITALS: BP 114/70; PULSE 94; TEMP 36.1; O2SAT 99
[2024-02-18 08:04] VITALS: BP 112/72; PULSE 84; O2SAT 92
[2024-02-18 08:05] VITALS: BP 115/72; PULSE 94; O2SAT 94
[2024-02-18] MEDS: BUPIVACAINE HCL 0.25% PF 25 MG/10 ML VIAL 8 ML INJ (08:10)
--- NOTE | 2024-02-18 08:10 | W.PM.PROCNOT ---
Date of procedure: 02/18/24 Pre-op diagnosis: Pain due to cervical spondylosis without myelopathy Post-op diagnosis: same as pre-op Procedure: Procedure: Bilateral C2-3, 3-4 medial branch block Medications: Bupivacaine 0.25% 6cc The patient was seen and examined in the preoperative holding area.? The informed consent was obtained and placed on the chart.? The patient was brought to the medical procedure unit and placed in the prone position.? A timeout was completed verifying correct patient, procedure site, positioning, plan, and special equipment.? Using aseptic technique, the needle was placed at left C2.? Under direct fluoroscopic visualization, a Quincke tip needle was advanced to the midpoint of the waist of the articular pillar at the respective medial branch segment. The above-mentioned injectate was placed in a 1 mL aliquot proceeded by negative aspiration.? The needle was removed.? The procedure was completed at all left C3, 4. The same procedure, at the same levels, was then completed on the right side. Insertion site was covered.? Patient was taken to the postprocedural recovery area and monitored for an appropriate length of time before found suitable for discharge in the accompaniment of a responsible adult. Anesthesia: Local Surgeon: Reuben Bauman Pathology: none sent Condition: stable Disposition: no change
[2024-02-18] MEDS: LIDOCAINE HCL 2% 400 MG/20 ML MDV INJ (08:11)
== END 2024-02-18 08:17 | disposition home or self-care (01) ==
LOC: SURGOUT 07:13
PROVIDERS: PCP Family Medicine; Visit Provider Anesthesiology
DX: M47.812 Spondylosis without myelopathy or radiculopathy, cervical region (principal)
CPT/HCPCS: 64490; 64491; J0665

== ENCOUNTER 2024-02-21 08:01 | Outpatient (OUT) | payer OTHER, SELFPAY ==
--- NOTE | 2024-02-21 08:00 | PM.CN ---
Consult Note: HPI Data of Consult Patient: known to practice within the last 3 years Requesting Physician: Jacqui Anthony NP Primary Care Provider: Danny Obrien MD Consult Narrative Reason for consult: f/u Narrative: Brittanie Bradley a pleasant 39 year old female presents for evaluation and management of chronic neck pain and migraines, today patient rating pain 5/10 throbbing ache in neck. Patient continues to follow up with neurology and movement disorder specialists at [facility] who are administering botox and prescribing a variety of medications for the patient. Patient has benefitted from occasional norco for moderate to severe pain unresponsive to tylenol, aleve, motrin, diclofenac or ibuprofen. Patient also recently prescribed diclofenac 50mg BID PRN for pain with mild benefit combined with hydrocodone acetaminophen. Patient reports daily headaches and neck pain, hx of cervical facet arthropathy and DDD. has completed greater than 6 weeks of PT in the past without benefit, at this time due to work and personal schedule she cannot engage in PT. recently underwent bilateral C2-3 C3-4 MBB #1 with no improvement, noted severe vertigo and worsening of pain following the procedure. cc:: CC: Jacqui Anthony NP Review of Systems ROS Status of ROS 10 or more systems reviewed and unremarkable except as noted in history and below Musculoskeletal Reports: neck pain PFSH PFSH Social History Smoking status: Never smoker Meds Home Medications and Allergies Home Medications ?Medication ?Instructions ?Recorded ?Confirmed ?Type cetirizine 10 mg tablet (Allergy 10 mg PO DAILY 03/21/23 02/18/24 History Relief (cetirizine)) diazepam 10 mg tablet 10 mg PO DAILY PRN muscle spasm 03/21/23 02/18/24 History onabotulinumtoxinA 200 unit 300 unit IM .every 3 months 03/21/23 02/18/24 History solution for injection (Botox) pramipexole 1 mg tablet (Mirapex) 1 mg PO DAILY 03/21/23 02/18/24 History cyclobenzaprine 5 mg tablet 5 mg PO TID PRN muscle spasm #10 01/22/24 02/18/24 Rx tabs minocycline 50 mg capsule 50 mg PO DAILY 01/22/24 02/18/24 History diclofenac sodium 50 mg 50 mg PO BID #60 tabs 01/30/24 Rx tablet,delayed release hydrocodone 5 mg-acetaminophen 325 1 tab PO DAILY PRN pain #14 tabs 01/30/24 02/18/24 Rx mg tablet Allergies Allergy/AdvReac Type Severity Reaction Status Date / Time caffeine Allergy Mild Vomiting Verified 05/13/23 05:16 adhesive Allergy Blister Verified 02/18/24 07:38 dihydroergotamine Allergy Difficulty Verified 02/18/24 07:38 Breathing metoprolol Allergy Swelling Verified 02/18/24 07:38 of Lip/Tongue/Throat Exam Constitutional Documenting provider has reviewed patient's vital signs: yes Common normals: no apparent distress, oriented x3, healthy appearing, alert and well nourished General appearance: cooperative HENMT Common normals: normocephalic, hearing grossly normal bilaterally and moist oral mucous membranes Head and scalp: normocephalic Eye Common normals: PERRL Pupil: PERRL Neck & C-Spine Common normals: full ROM General: normal visual inspection Cervical spine: pain with cervical ROM, cervical spine tenderness, paracervical muscle tenderness, paracervical muscle spasm and trapezius muscle tenderness Other: positive facet loading tenderness over bilateral C2-5 facets positive spurlings, sensation intact in BUE however RUE strength 4/5 and LUE 5/5 Chest Common normals: inspection of chest normal Respiratory Common normals: normal respiratory effort, no retractions and no use of accessory muscles Neuro Common normals: oriented x3, CN's II-XII intact bilaterally, moves all extremities, no focal motor deficits, no sensory deficits noted and deep tendon reflexes 2+ bilaterally Sensorium/orientation: alert Motor exam: strength 5/5 throughout and no movement abnormalities noted Psych Common normals: mental status grossly normal, thought process normal, cooperative, affect normal, speech normal and activity/motor behavior normal Speech: normal speech Thought process: normal thought process Results Additional Findings Additional findings: If on a controlled substance or opioids, I have checked an [place]AR[place] report on this patient and there are no aberrancies noted in the prescribing history.??If on a controlled substance or opioid a drug screen was completed and reviewed within the last year, and if there has not been a drug screen completed we ordered one today to monitor higher risk, state monitored pain medication use. As part of providing excellent, safe, comprehensive care, the following was completed at our patient's visit: 1. A medication reconciliation and review to ensure accurate knowledge of current/active medications, including asking our patients to inform us about any [id number]-qnfwaxg medications or herbal remedies/nutritional supplements/alternative remedies. 2. A review to specifically ensure our patients have had annual screening for screening for depression, screening for tobacco use, and screening for unhealthy alcohol use. For concerning screenings had a discussion with the patient, provided patient education, and recommended follow-up with primary care provider when appropriate. If patient noted with a risk of falling, they received education on strength, gait, and balance training to prevent future risk of falling. Assessment and Plan Assessment and Plan (1) Degenerative disc disease, cervical: (2) Neck pain: (3) Cervical radiculopathy: (4) Cervical spondylosis: (5) Migraines: (6) Myofascial pain: (7) Chronic prescription opiate use: Assessment and Plan: patient has failed numerous nonopioid medications including tylenol, motrin, ibuprofen, aleve, diclofenac, baclofen, tizanidine I feel these medications are improving the patient's quality of life and allow them to tolerate activities of daily living as well as participate in recreational activity.? The patient does not report intolerable side effects. The patient is NOT opioid naive and non-pharmacologic and non-opioid treatment has failed to significantly relieve the patient's pain and improve functionality. The patient has a diagnosis that is related to a somatic or visceral pain etiology. ? ?? I reviewed with the patient the potential risks and side effects with the use of? opioid medications including but not limited to respiratory depression,? sedation, and even . I verified the patient has access to naloxone should? these effects occur. I advised the patient to avoid the use of any other? sedation substances including alcohol, THC, and benzodiazepines while? taking opioid medications due to the risk of compounding side effects and? detrimental outcomes. 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 drug screen, and opioid start talking forms. The patient was advised to let? their family know they had Naloxone in case they would need to administer? the medication.? ?? A drug screen was completed within the last year, and no aberrancies were noted regarding their use of controlled substances. The patient understands they are subject to the terms and conditions of the pain contract that they have signed. ? ?? I have checked an OARRS report on this patient today and there are no aberrancies noted in the prescribing history.? (8) Chronic prescription benzodiazepine use: Assessment and Plan: has failed numerous other medications for chronic TMJ and jaw pain, pt aware of risks and does not take hydrocodone within 12 hours of valium Plan 39 year old female with chronic neck pain and headaches unresponsive to PT greater than 6 weeks, botox, medication management. prior cervical xray shows mild disc loss at c2-3, no recent xray or MRI available for review. update cervical xray and cervical MRI without contrast to evaluate cervical spondylosis and DDD update UDS today, continue current medications bilateral trapezius and paracervical TPI with Dr Bauman f/u to review imaging
--- OUTSIDE RECORDS SUMMARY | 2024-02-21 08:03 | XMS_ITS | CCD ---
Author Organization [facility] Care Team Providers Care Liquid Flavor Compounder Name Role Phone MD Filiberto Ying Primary Care Provider PURVI Sheehan Attending Provider [phone] STEPAN .DR DE LOS SANTOS Primary [...] Provider [phone] DO Dano Pyle Attending Provider [phone] DO Roseanne Castellanos Attending Provider MD Romero Jones Referring Provider Isrrael, Dr. Soraya Mojica Attending Unavailab le Isrrael, Dr. Soraya Mojica Referring Unavailab le Stepan, Dr. Filiberto Fuller Primary Care Unavail able Unavailable Unavailable Filiberto Ying MD Primary Care Provider [phone] Kenna Sheehan PA-C Unavailable Tal DIALLO, Dr. Saeed Jean-Baptiste Attending Unavailable Stepan, Dr. Filiberto Fuller Primary Care Unavail able Emanuel, Dr. Saeed Stahl Referring Unava ilneris Castellanos, Dr. Saeed Stahl Attending Unava ilable Stepan, Dr. Filiberto Fuller Primary Care Unavail able Emanuel, Dr. Saeed Stahl Referring Unava ilneris Castellanos, Dr. Saeed Stahl Referring Unava ilneris Ying, Dr. Filiberto Fuller Primary [facility] Unavail able Emanuel, Dr. Saeed Stahl Attending [...] Attending Provider DO Dano Pyle Attending Provider [phone] MD Filiberto Ying Primary Care Provider [phone] DANO PYLE Attending Unavailable HOY, FILIBERTO M Referring Unavailable VALERIO SANZ Attending Unavailable Filiberto Ying MD Primary Care Provider [phone] MD Filiberto Ying Primary Care Provider [phone] DO Dano Pyle Attending Provider [phone] Maria Del Carmen Borges Attending Unavailable [...] FILIBERTO M Primary Care Unavailable WEISSWANG, HARMAN Referring Unavailable WEISSHARMAN PIÑA Attending Unavailable HOY, FILIBERTO M Primary Care Unavailable WEISSWANG, HARMAN Attending Unavailable HOY, FILIBERTO M Primary Care Unavailable WEISSFELD, HARMAN Referring Unavailable MARIA DEL CARMEN BORGES Attending Unavailable HOY, FILIBERTO M Primary Care Unavailable Allergies Allergy Classification Reported Allergen(s) Allergy Type Date of Onset Reaction(s) Facility (20 sources) Caffeine; Translations: [Caffeine] Drug Allergy 3 Vomiting [facility] (20 sources) DHE; Translations: [Dhe] Allergy to substance 3 Shortness of Breath [facility] (20 sources) Adhesive agent; Translations: [ADHESIVE] Propensity to adverse reactions to drug 3 Other: See Asa, Yamilet [facility] (15 sources) Adhesive Tape Allergy to substance (finding) 3 Rash [facility] (9 sources) prasterone; Translations: [DHEA CAPS] Drug Allergy -[facility] DO Work Phone: (15 sources) Metoprolol; Translations: [METOPROLOL] Drug Allergy 3 Swelling [facility] (2 sources) Metoclopramide Drug Allergy 3 Worsens restless leg [facility] Medications Current Medications Medication Drug [...] tablet by mouth every eight hours Hydrocodone-Acetaminophen ([place]) 5-325 mg tablet Discontinued 1 TAB PO [...] 37.5 mg by mout h once daily. Lylvujeu-Ad-Whf-Fe-FA (P-D PLUS) Tab (2 sources) End: 08-02-19 23 take 1 tablet by mouth once daily Vzvwrcxi-Eq-Odp-Fe- FA (P-D CARTER PLUS) Tab Take 1 tablet by mouth once daily. 0 08/01/2022 Discontinued (Course of therapy completed) take 1 tablet by mouth once ute y Gyokebom-Jv-Kxj-Fe-FA (P-D PLUS) Tab Take 1 tablet by [...] Test Name Value Interpretation Reference Range Facility [facility] 01-30-2024 CNOV Office Visit ([facility] ) BRITTANIE GARCIA ([id number]) 1985 F Date Time Provider Department 01/30/24 2:00 PM HARMAN SULLIVAN [facility] During your visit today, we recorded [...] brought in by patient? No Lot #: [id number] Exp: 03/2026 Dilution: 5 units/0.1 ml (100 [...] Optional follow pain # units L R Funeral Assistant 10 units divided in 2 sites XXXXXXX [...] Harman Sullivan MD Referring Provider: HARMAN SULLIVAN [[id number]] Allergies As of Date: 01/30/2024 Noted Allergy [...] for Encounter Date Provider Department Center 01/30/2024 [id number], TED [facility] Encounter Status:Closed by HARMAN SULLIVAN on 01/30/24 Normal [facility] US breast RT limitedon 01-27 US breast RT limited [place] [address] Ultrasound Report Signed Patient: Brittanie Garcia MR#: [id number] : 1985 Acct:[id number] Age/Sex: 39 / F ADM Date: 01/28/24 Loc: [facility] Room: Type: [facility] Attending Dr: Dano Pyle DO [...] Binta Elaine M.D.01/28/2024 8:30 AM Dictation Location: [facility] Tech: Alayna Choudhary Transcribed By: JADEN 01/28/24829 Dictated By: Binta Elaine MD 01/28/24811 Signed By: 01/28/24829 Normal [facility] CNOVon 10-31-2023 CNOV Office Visit ([facility] ) BRITTANIE GARCIA ([id number]) 1985 F Date Time Provider Department 10/31/23 10:30 AM HARMAN SULLIVAN [facility] During your visit today, we recorded [...] BOTOX brought in by patient? No Lot #:[id number] Exp: 10/2025 Dilution: 5 units/0.1 ml (100 [...] Optional follow pain # units L R Funeral Assistant 10 units divided in 2 sites XXXXXXX [...] Harman Sullivan MD Referring Provider: HARMAN SULLIVAN [[id number]] Allergies As of Date: 10/31/2023 Noted Allergy [...] for Encounter Date Provider Department Center 10/31/2023 [id number], TED [facility] Encounter Status:Closed by HARMAN SULLIVAN on 10/31/23 Normal [facility] Salima 10-31-2023 CNPN Telephone ([facility]) BRITTANIE GARCIA ([id number]) 1985 F Date Time Provider Department 10/31/23 HARMAN SULLIVAN [facility] During your visit today, we recorded [...] Status:Closed by ESVIN VELAZQUEZ on 12/06/23 Normal [facility] Telephone ([facility]) JOSEBRITTANIE ([id number]) 1985 F Date Time Provider Department 10/31/23 HARMAN SULLIVAN [facility] During your visit today, we recorded the following information about you: Esvin Velazquez 10/31/2023 11:03 AM Signed Patient brought in [facility] paperwork for Dr. Sullivan to fill out. [...] by ESVIN VELAZQUEZ on 12/03/23 [facility] C[facility] Tele[facility] ([facility]) BRITTANIE GARCIA ([id number]) 1985 F Date Time Provider Department 10/11/23 HARMAN SULLIVAN [facility] During your visit today, we recorded [...] 30 slot to get her Botox in [place]. Per Dr. Sullivan, she does not need to then also keep her November 05 appt. Manolo Luther MA 10/22/2023 8:14 AM Signed Prior Auth Determination: Approved Medication/ Treatment: BOTOX Authorization Information/ Time Range: Botox, J0585 Approval Date Range: 10/16/2023 to 10/14/2024 Approval #: [id number] Dose AND Frequency: 200 units Q 12 [...] Encounter Status:Closed by PALLAVI DURON on 10/19/23 [facility] CNOVon 09-21-2023 CNOV Office Visit ([facility] ) BRITTANIE GARCIA ([id number]) 1985 F Date Time Provider Department 09/21/23 8:30 AM HARMAN SULLIVAN [facility] During your visit today, we recorded [...] Actual fi (more content not included)... [facility] Telephone ([facility]) BRITTANIE GARCIA ([id number]) 1985 F Date Time Provider Department 09/21/23 HARMAN SULLIVAN [facility] During your visit today, we recorded the following information about you: Manolo Luther MA 09/21/2023 8:46 AM Signed Requested image transfer from [facility] for most recent head/ neck imaging. Manolo Luther MA 09/21/2023 2:42 PM Signed Faxed record request form to [facility] [phone]. Manolo Luther MA 10/03/2023 3:08 PM Signed RECORDS RECEIVED via FAX: From: [facility] Placed at desk/tray for review. [...] Reason for Visit: Request Outside Medical Records [0814] Prescriptions as of 10/03/2023 - baclofen 10 [...] Encounter Status:Closed by MANOLO LUTHER on 09/21/23 [facility] 05-15-2023 L ------- Specimen: [id number] Received: 05/15/23 Status: MG Clemente Num: [id number] Spec Type: Surgical Subm Dr: Dano Pyle [...] Location Account Attending Physician Brittanie Garcia 38/F [place] [id number] Dano Pyle, SPEC NUM: [id number] RECD: 05/15/23 STATUS: MG CLEMENTE NUM: [id number] TACOS: 05/15/[address]: Dano Pyle DO ENTERED: 05/15/[address] [facility] [address]: SPEC TYPE: Surgical DEPT: S ORDERED: [...] show some diminished staining of myoepithelial Specimen: [id number] Received: 05/15/23 Status: MG [place] Num: [id number] Spec Type: Surgical Subm Dr: Dano Pyle [...] Gross/Micro L4/4, E CADHERIN Patient: Brittanie Garcia [id number] (Continued) Specimen: [id number] Received: 05/15/23 (Continued) Pathological Diagnosis (Continued) Signed (signature on file) Dany Fonseca MD 05/17/23 1723 Specimen: [id number] Received: 05/15/23 Status: MG Clemente Num: [id number] Spec Type: Surgical Subm Dr: Dano Pyle, [...] Gross/Micro L4/4, E CADHERIN Patient: GarciaBrittanie mcqueen [id number] (Continued) Specimen: [id number] Received: 05/15/23 (Continued) Pathological Diagnosis (Continued) cells, and otherwise without definitive features of lobular intraepithelial neoplasm identifiable -Also no evidence of malignancy or atypical epithelial hyperplasia identified C. Left ni (more content not included)... Normal [facility] Basic Metabolic Panelon 04-20 GFR/1.73 sq M.predicted MDRD (S/P/Bld) [Vol rate/Area] mL/min/{1.73_m2} Normal [facility] Comment on above: Performed By: #### B MP #### [address] Calcium [Mass/volume] in Ser um or PlasmaOrdered By: Dano Pyle on 12-12-2023 Calcium [Mass/Vol] 9.7 mg/dL Normal 8.6-10.3 [facility] Comment on above: Result Comment: PERF ORMED BY: [place] [address] PATHOLOGIST CYLINDER PRESS OPERATOR APPRENTICE ROSSI POND M.D. Performed By: #### B MP #### [facility] [address] [place] [address] [place] Carbon dioxide, total [Moles /volume] in Serum or PlasmaOrdered By: Dano Pyle on 05-01-2023 CO2 [Moles/Vol] 28.9 mmol/L Normal 21.0-31.0 [facility] Comment on above: Performed By: #### B MP #### [place] [address] [place] Chloride [Moles/volume] in S leticia or PlasmaOrdered By: Dano Pyle on 05-01-2023 Chloride [Moles/Vol] 105 mmol/L Normal 98-107 [facility] Comment on above: Performed By: #### B MP #### [facility] [address] [place] [address] [place] Creatinine [Mass/volume] in Serum or PlasmaOrdered By: Dano Pyle on 05-01-2023 Creatinine [Mass/Vol] 0.75 mg/dL Normal 0.60-1.20 [facility] Comment on above: Performed By: #### B MP #### [place] [address] [place] Glucose [Mass/volume] in Ser um or PlasmaOrdered By: Dano Pyle on 05-01-2023 Glucose [Mass/Vol] 84 mg/dL Normal 70-100 [facility] Comment on above: ADA recommended refe rence rangeRandom Glucose Reference Range is dependent on time and content of last meal. Glucose of more than 200 mg/dL in a nonstressed, ambulatory subject supports the diagnosis of Diabetes Mellitus. Result Comment: [place] om Glucose Reference Range is dependent on time and content of last meal. Glucose of more than 200 mg/dL in a nonstressed, ambulatory subject supports the diagnosis of Diabetes Mellitus. ADA recommended reference range Performed By: #### B MP #### [facility] [address] [place] [address] No Panel InformationOrdered By: Dano Pyle on 05-01-2023 Estimated GFR (CKD-EPI) > 60.0 mL/Min [facility] Creatinine Clearance (Chem N/A [facility] Potassium [Moles/volume] in Serum or PlasmaOrdered By: Dano Pyle on 05-01-2023 Potassium [Moles/Vol] 4.3 mmol/L Normal 3.5-5.1 [facility] Comment on above: Performed By: #### B MP #### [address] Serum or plasma anion gap de terminationOrdered By: Dano Pyle on 05-01-2023 Anion gap [Moles/Vol] 9.4 mmol/L Normal 6.0-15.0 [facility] Comment on above: Performed By: #### B MP #### [address] Sodium [Moles/volume] in Ser um or PlasmaOrdered By: Dano Pyle on 05-01-2023 Sodium [Moles/Vol] 139 mmol/L Normal 136-145 [facility] Comment on above: Performed By: #### B MP #### [address] Urea nitrogen [Mass/volume] in Serum or PlasmaOrdered By: Dano Pyle on 05-01-2023 Urea nitrogen [Mass/Vol] 14 mg/dL Normal 7-25 [facility] Comment on above: Performed By: #### B MP #### [address] SURGICAL PATHOLOGY REFERENCE LAB CONSULTon 04-11-2023 CASE REPORT Normal [facility] Comment on above: Order Comment: Speci men Type: FORMALIN-FIXED PARAFFIN-EMBEDDED TISSUE SPECIMENOrdering Facility: [facility] Address: [address] [place] [address] [place] [address] Result Comment: [facility] Pathology Report Case: [id number] Authorizing Provider: Calvin Haynes MD Collected: 04/11/2023 10:31 AM Ordering Location: [facility] Received: 04/11/2023 10:[address] [facility] Pathologist: Estiven Wang MD Specimen: SLIDE(S), 12 SLIDES, [id number] Performed By: #### L [id number] ####[facility] LABCL[facility] [id number] [address] OF [facility] CLINICAL HISTORY CONSULT REQUESTED [facility] Comment on above: Order Comment: Speci men Type: FORMALIN-FIXED PARAFFIN-EMBEDDED TISSUE SPECIMENOrdering Facility: [facility] Address: [address] [place] [address] Performed By: #### L [id number] ####[facility] [id number] [address] DIAGNOSIS COMMENT Normal [facility] Comment on above: Order Comment: Speci men Type: FORMALIN-FIXED PARAFFIN-EMBEDDED TISSUE SPECIMENOrdering Facility: [facility] Address: [address] [place], [place] [address] [address] Result Comment: Many thanks for sending us [...] in consultation with Dr. Rogers, of the [facility] breast pathology department, who concurs. Performed By: #### L [id number] ####[facility] LABIA [id number] [address] FINAL DIAGNOSIS Normal [facility] Comment on above: Order Comment: Speci men Type: FORMALIN-FIXED PARAFFIN-EMBEDDED TISSUE SPECIMENOrdering Facility: [facility] Address: [address] [place] [address] Result Comment: Left breast, core biopsy - [place] spindle cell proliferation, (please see comment). Performed By: #### L [id number] ####[facility] [id number] [address] FINAL PERFORMING LAB Normal [facility] Comment on above: Order Comment: Speci men Type: FORMALIN-FIXED PARAFFIN-EMBEDDED TISSUE SPECIMENOrdering Facility: [facility] Address: [address] [place] [address] Result Comment: Diag nostic interpretation performed at [facility], [facility] [place] [address] CLIA# [id number] Solvent Recoverer: Oliverio Brito M.D. Performed By: #### L [id number] ####[facility] LABCLIA [id number] [address] 04-05-2023 L ------- Specimen: [id number] Received: 04/05/23 Status: MG Elizabeth Num: [id number] Spec Type: Surgical Subm Dr: Binta Elaine MD Tissues: A BREAST CORE NO CALCS (LT BREAST TISSUE) Procedures: S 100, HE/2, Gross/Micro L4, DESMIN, AE1-AE3, CD31, CD34, ER, Ki-67, SM ACTIN, IHC First AB, IHC Add AB/8, GATA3, BETA-CATENIN Age/ Patient Sex Location Account Attending Physician Brittanie Garcia 38/F ROMARIO [id number] Dano Pyle DO SPEC NUM: [id number] RECD: 04/05/23 STATUS: MG CLEMENTE NUM: [id number] TACOS: 04/05/[address] [facility] [address]: Binta Elaine MD ENTERED: 04/05/[address] [facility] [address]: DO MIKE Rodriguez TYPE: Surgical DEPT: S ORDERED: S 100, HE/2, Gross/Micro L4, DESMIN, AE1-AE3, CD31, CD34, ER, Ki-67, SM ACTIN, IHC First AB, IHC Add AB/8, GATA3, BETA-CATENIN ORDERED: S 100, HE/2, Gross/Micro L4, DESMIN, AE1-AE3, CD31, CD34, ER, Ki-67, SM ACTIN, IHC First AB, IHC Add AB/8, IMMUNOHISTOCHEM, GATA3, BETA-CATENIN Supplemental Report Addendum 1 Entered: 04/16/23 [facility] Pathology Report ([id number]): Left Breast, core biopsy: - [place] spindle cell proliferation - See the [facility] report for details Addendum Signed (signature on file) Calvin Haynes MD 04/16/231535 Pathological Diagnosis Preliminary Pathology Diagnosis: Breast mass, left side, core biopsy: Specimen: [id number] Received: 04/05/23 Status: MG Clemente Num: [id number] Spec Type: Surgical Subm Dr: Binta Elaine MD Tissues: A BREAST CORE NO CALCS (LT BREAST TISSUE) Procedures: S 100, HE/2, Gross/Micro L4, DESMIN, AE1-AE3, CD31, CD34, ER, Ki-67, SM ACTIN, IHC First AB, IHC Add AB/8, GATA3, BETA-CATENIN Patient: Brittanie Garcia [id number] (Continued) Specimen: [id number] Received: 04/05/23 (Continued) Pathological Diagnosis (Continued) Signed (signature on file) Calvin Haynes MD 04/10/23 1142 Specimen: [id number] Received: 04/05/23 Status: MG [place] Num: [id number] Spec Type: Surgical Subm Dr: Binta Elaine MD Tissues: A BREAST CORE NO CALCS (LT BREAST TISSUE) Procedures: S 100, HE/2, Gross/Micro L4, DESMIN, AE1-AE3, CD31, CD34, ER, Ki-67, SM ACTIN, IHC First AB, IHC Add AB/8, GATA3, BETA-CATENIN Patient: GarciaBrittanie chambers [id number] (Continued) Specimen: [id number] Received: 04/05/23 (Continued) Pathological Diagnosis (Continued) - [...] This case will be sent to the [facility] for consultation and second opinion and [...] in formalin is 6.75 hours. CPT Codes 78597 [id number] (more content not included)... 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 At 11:00, 3 to 4 [...] Binta Elaine M.D.04/05/2023 5:45 PM Dictation Location: [facility] Tech: Marlee Sánchez Transcribed By: JADEN 04/05/23 2460 Dictated By: Binta Elaine MD 04/05/23 1127 Signed By: 04/05/23 1745 Normal [facility] US breast ndl core biopsy LT on 04-05-2023 US breast ndl core biopsy LT [facility] [address] [place] [id number] Mammography Report Signed with Addenda Patient: Brittanie Garcia MR#: [id number] : 1985 Acct:[id number] Age/Sex: 38 / F ADM Date: 04/05/23 Loc: [facility] Room: Type: [facility] Attending Dr: Dano Pyle DO Copies to: MD Dano Saleh DO Ordering Provider: Dano Pyle DO Date of Service: 04/05/23 US/US breast ndl core biopsy LT: N63.20 ([id number]) MM/MM post biopsy LT w/CAD: POST BIOPSY CLIP PLACEMENT ADDENDUM 1 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 It is therefore uncertain whether or not resection should be performed. If there is no further intervention, ultrasound follow-up in 6 months is suggested. Impression dictated by: Binta Elaine M.D.04/17/2023 7:37 AM Dictation Location: [place] [address] Addendum Dictated By: MD Binta Elaine Addendum [...] Binta Elaine M.D.04/05/2023 2:04 PM Dictation Location: [facility] Transcribed By: JADEN 04/05/23 1404 Dictated By: Binta Elaine MD 04/05/23 1134 Signed By: 04/05/23 1404 Normal [facility] Salima 02-19-2023 CNPN Telephone (NIQ) JOSEBRITTANIE ([id number]) 1985 F Date Time Provider Department 02/19/23 MARIA DEL CARMEN BORGES During your visit today, we recorded the following information about you: Myrtle Gonzalez 02/19/2023 12:09 PM Signed Scanned in medical records from [facility] for review Evonne Dillard RN 02/19/2023 12:20 PM Signed Evonne GAMBOA BSN, RN, BA Evonne Dillard RN 02/19/2023 12:29 PM Signed Maria Del Carmen Borges APRN.BOWLING BALL WE[employer]HER [employer]ER You 1 minute ago (12:27 PM) Thank you. This is a normal value. PRATIBHA Louis, RN, BA Allergies As of Date: 02/19/2023 Noted Allergy Reaction ADHESIVE 07/28/2022 14 - Other: See Comments 2 - Rash CAFFEINE 06/13/2012 11 - Vomiting DHE 06/13/2012 12 - Shortness of Breath Date Reviewed: 01/12/2023 Reviewed by: Maria Del Carmen Borges APRN.B[employer]LING [employer]ER - Fully Assessed Reason for Visit: Results [95] Cmt: [facility] Prescriptions as of 02/19/2023 - [...] Encounter Status:Closed by EVONNE DILLARD on 02/19/23 [facility] 02-09-2023 [facility] Telephone (NIQ) BRITTANIE GARCIA ([id number]) 1985 F Date Time Provider Department 02/09/23 MARIA DEL CARMEN BORGES During your visit today, we recorded the following information about you: Myrtle Gonzalez 02/09/2023 9:59 AM Signed Scanneed in medical records from [facility] for review Evonne Dillard RN 02/09/2023 10:26 AM Signed Maria Del Carmen Borges APRN.[employer]ING [employer]HER [employer]ER You 2 minutes ago (10:23 AM) Reviewed. PRATIBHA Louis, RN, BA Allergies As of Date: 02/09/2023 Noted Allergy Reaction ADHESIVE 07/28/2022 14 - Other: See Comments 2 - Rash CAFFEINE 06/13/2012 11 - Vomiting DHE 06/13/2012 12 - Shortness of Breath Date Reviewed: 01/12/2023 Reviewed by: Maria Del Carmen Borges APRN.[employer]ER - Fully Assessed Reason for Visit: Results [95] Cmt: [facility] Prescriptions as of 02/09/2023 - [...] Status:Closed by EVONNE DILLARD on 02/09/23 Normal [facility] Automated basophil %Ordered By: Maria Del Carmen Borges on 02-07-2023 Basophils/100 WBC (Bld) 0.4 % Normal . [facility] Comment on above: Performed By: #### F ER, CBC #### [address] Automated basophil countOrde red By: Maria Del Carmen Borges on 02-07-2023 Basophils (Bld) [#/Vol] 0.0 10*3/uL Normal 0.0-0.2 [facility] Comment on above: Result Comment: PERF ORMED BY: [place] [address] PATHOLOGIST CYLINDER PRESS OPERATOR APPRENTICE ROSSI POND M.D. Performed By: #### F ER, CBC #### [address] Automated blood monocyte cou ntOrdered By: Maria Del Carmen Borges on 02-07-2023 Monocytes (Bld) [#/Vol] 0.5 10*3/uL Normal 0.0-0.8 [facility] Comment on above: Performed By: #### F ER, CBC #### [address] Automated eosinophil %Ordere d By: Maria Del Carmen Borges on 02-07-2023 Eosinophils/100 WBC (Bld) 1.2 % Normal . [facility] Comment on above: Performed By: #### F ER, CBC #### [address] Automated eosinophil countOr dered By: Maria Del Carmen Borges on 02-07-2023 Eosinophils (Bld) [#/Vol] 0.1 10*3/uL Normal 0.0-0.45 [facility] Comment on above: Performed By: #### F ER, CBC #### [address] Automated monocyte %Ordered By: Maria Del Carmen Borges on 02-07-2023 Monocytes/100 WBC (Bld) 6.5 % Normal . [facility] Comment on above: Performed By: #### F ER, CBC #### [address] Automated neutrophil %Ordere d By: Maria Del Carmen Borges on 02-07-2023 Neutrophils/100 WBC (Bld) 56.5 % Normal . [facility] Comment on above: Performed By: #### F ER, CBC #### [address] Complete Blood Count Auto Di ffon 02-07-2023 Mean Corpuscular HGB Conc 33.3 g/dL Normal 32.0-35.0 [facility] Comment on above: Performed By: #### F ER, CBC #### [facility] [address] NRBC% 0.1 /100{WBC} Normal 0-0.5 [facility] Comment on above: Performed By: #### F ER, CBC #### [address] Erythrocyte distribution wid th [Ratio] by Automated countOrdered By: Maria Del Carmen Borges on 02-07-2023 Erythrocyte distribution width (RBC) [Ratio] 13.4 % Normal 11.9-15.3 [facility] Comment on above: Performed By: #### F ER, CBC #### [address] Erythrocytes [#/volume] in B lood by Automated countOrdered By: Maria Del Carmen Borges on 02-07-2023 RBC (Bld) [#/Vol] 4.94 10*6/uL Normal 3.60-5.00 [facility] Comment on above: Performed By: #### F ER, CBC #### [address] Ferritin [Mass/volume] in Se rum or PlasmaOrdered By: Maria Del Carmen Borges on 02-07-2023 Ferritin [Mass/Vol] 110.5 ng/mL Normal 11.0-306.8 [facility] Comment on above: Result Comment: PERF ORMED BY: [place] [address] PATHOLOGIST CYLINDER PRESS OPERATOR APPRENTICE ROSSI POND M.D. Performed By: #### F ER, CBC #### [address] Hematocrit [Volume Fraction] of Blood by Automated countOrdered By: Maria Del Carmen Borges on 02-07-2023 Hematocrit (Bld) [Volume fraction] 42.6 % Normal 34.0-46.4 [facility] Comment on above: Performed By: #### F ER, CBC #### [facility] [address] Hemoglobin [Mass/volume] in BloodOrdered By: Maria Del Carmen Borges on 02-07-2023 Hemoglobin (Bld) [Mass/Vol] 14.2 g/dL Normal 11.8-15.4 [facility] Comment on above: Performed By: #### F ER, CBC #### [address] Leukocytes [#/volume] correc harman for nucleated erythrocytes in Blood by Automated counOrdered By: Maria Del Carmen Borges on 02-07-2023 WBC corrected for nucl RBC Auto (Bld) [#/Vol] 7.0 10*3/uL 3.8-11.6 [facility] Leukocytes [#/volume] in Blo od by Automated countOrdered By: Maria Del Carmen Borges on 02-07-2023 WBC (Bld) [#/Vol] 7.0 10*3/uL Normal 3.8-11.6 [facility] Comment on above: Performed By: #### F ER, CBC #### [address] Lymphocytes [#/volume] in Bl ood by Automated countOrdered By: Maria Del Carmen Borges on 02-07-2023 Lymphocytes (Bld) [#/Vol] 2.5 10*3/uL Normal 1.00-4.8 [facility] Comment on above: Performed By: #### F ER, CBC #### [place] [address] [place] Lymphocytes/100 leukocytes i n Blood by Automated countOrdered By: Maria Del Carmen Borges on 02-07-2023 Lymphocytes/100 WBC (Bld) 35.4 % Normal . [facility] Comment on above: Performed By: #### F ER, CBC #### [place] [address] [place] MCH [Entitic mass] by Automa harman countOrdered By: Maria Del Carmen Borges on 02-07-2023 MCH (RBC) [Entitic mass] 28.7 pg Normal 24.7-34.3 [facility] Comment on above: Performed By: #### F ER, CBC #### [address] MCHC Auto (RBC) [Mass/Vol]Or dered By: Maria Del Carmen Borges on 02-07-2023 MCHC (RBC) [Mass/Vol] 33.3 g/dL 32.0-35.0 [facility] MCV [Entitic volume] by Auto mated countOrdered By: Maria Del Carmen Boregs on 02-07-2023 MCV (RBC) [Entitic vol] 86.2 fL Normal 80-100 [facility] Comment on above: Performed By: #### F ER, CBC #### [address] Neutrophils [#/volume] in Bl ood by Automated countOrdered By: Maria Del Carmen Borges on 02-07-2023 Neutrophils (Bld) [#/Vol] 4.0 10*3/uL Normal 1.8-7.7 [facility] Comment on above: Performed By: #### F ER, CBC #### [facility] [address] [place] [address] Nucleated erythrocytes [Pres ence] in Blood by Automated countOrdered By: Maria Del Carmen Borges on 02-07-2023 Nucleated RBC Auto Ql (Bld) 0.1 /100{WBC} 0-0.5 [facility] Platelet mean volume [Entiti c volume] in Blood by Automated countOrdered By: Maria Del Carmen Borges on 02-07-2023 Platelet mean volume (Bld) [Entitic vol] 8.3 fL Normal 6.3-10.7 [facility] Comment on above: Performed By: #### F ER, CBC #### [address] Platelets [#/volume] in Bloo d by Automated countOrdered By: Maria Del Carmen Borges on 02-07-2023 Platelets (Bld) [#/Vol] 223 10*3/uL Normal 150-450 [facility] Comment on above: Performed By: #### F ER, CBC #### [facility] [address] Echocardiogramon 12-28-2022 Echocardiography [facility] [address] [place] [address], [address], [place] [address] TRANSTHORACIC ECHOCARDIOGRAM REPORT Patient Name: BRITTANIE Aguilar Blaire Physician: [id number] Saeed GARCIA MD Study Date: 12/28/2022 Referring SORAYA CAGE Physician: MRN/PID: [id number] PCP: Filiberto Ying Accession/Order#: [id number] Department [facility] Location: [place] Date of : 1985 Fellow: Gender: F Nurse: Admit Date: Fitness Sales Consultant: Lanny Pdaron RDCS, RVT Height: 157.48 cm CC Report to: Weight: 74.84 kg Study Type: Echocardiogram BSA: 1.76 m2 Blood Pressure: 106 /70 mmHg Diagnosis/ICD: R00.0-Tachycardia, unspecified; K07-Fvszhor Indication: Hyperlipidemia, Overweight Procedure/CPT: Echo Complete w Full [id number] Study Detail: The following Echo studies were [...] 0.8 m/s (0.6-0.9m/s) PV Max P.4 mmHg [id number] Saeed Parada MD Electronically signed on 01/01/2023 at 2:35:16 PM Final Normal [facility] Office Visit (Cardiology)on 11-14-2022 Follow-up visit Diagnoses/Problems [...] alcoholic beverages.; Status:Complete - Retrospective Authorization; Done: [id number] Drink at least 6 glasses of water or juice a day.; Status:Complete - Retrospective Authorization; Done: [id number] Patient Instructions Avoid dehydration. Drink 5-6 bottles [...] Tilt table Chief Complaint Patient presented to [facility] care. Adult Risk Screening Initial Fall Risk [...] Normal axis. Corrected QT interval 420 ms. AL interval 150 ms See signed ECG and check /Paceart. Imp / Plan Recurrent syncope, consistent with vasovagal etiology. Discussed mechanisms of syncope. Reviewed syncope brochure. Reviewed testing event monitor and tilt table te (more content not included)... Normal [facility] Office Visit (Cardiology)on 11-10-2022 Follow-up visit Diagnoses/Problems [...] Signs Recorded: 10Nov2022 09:01AMRecorded: 10Nov2022 08:58AM Systolic Czaqnzc88, LUE, Sitting Diastolic Xdhsmdu63, LUE, Sitting Systolic Zughkppj500, LUE, Standing Diastolic Ackmlhvc87, LUE, Standing Heart Rate92, L Radial Qvsttgdr37, LUE, Sitting Vtuvelngb53, LUE, Sitting Height5 ft 2 in [place]577 lb BMI Wbxzprvbmj59.63 kg/m2 BSA Calculated1.75 Tobacco Useb) No Falls [...] (Author) Normal [facility] No Panel Informationon 10-23 [facility] Work Phone: Cardiovasc Arrhythmia Result son 09-29-2022 Cardiovasc Arrhythmia Results Reason For Visit Event Monitor: BRITTANIE is here for the application of a 30 day event monitor in office., Diagnosis: Syncope,Fainting Ordering Physician: Dr. Saeed Castellanos DO Enrollment sent to: [employer] Monitor number [id number] applied. Holter monitor printed and placed on [...] Nov 02 2022 9:05AM EST (Author) Normal [facility] Office Visit (Cardiology)on 09-20-2022 Follow-up visit Diagnoses/Problems [...] no rebound tachycardia. Recommendations, obtain [facility] monitoring, tilt table test, refer to either [...] Signs Recorded: 20Sep2022 10:01AMRecorded: 20Sep2022 09:59AM Systolic Spyyh917 Diastolic Lying88 Systolic Zmqkaxf208 Diastolic Fqgyrxn35 Systolic Wcnknvbf263 Diastolic Hunkljpv60 Heart Rate85, Apical Mcrlxrme354, LUE, Supine Nkgfickba46, LUE, Supine Height5 ft 2 in Ddnveb485 lb BMI Bhkhwjehek39.36 kg/m2 BSA Calculated1.77 Tobacco Useb) No PHQ-2 #1. Ov (more content not included)... Normal [facility] Tobacco Screening.on 023 Adult depression screening assessment No [facility] Diana 250 DO Work Phone: Tobacco use status CPHS b) No [facility] Diana 250 DO Work Phone: MAGDA BY IFA WITH REFLEXon Nuclear Ab IF (S) [Titer] Negative Negative [facility] CCP ANTIBODY IGGon Cyclic citrullinated peptide IgG Qn <20 Units [facility] Cyclic citrullinated peptide IgG Qnon 07-31-2022 CCP Antibody IgG Qualitative Negative Negative [facility] C-REACTIVE PROTEIN (CRP)on 0 07-28-2022 CRP [Mass/Vol] <0.9 mg/dL [facility] CBC W Auto Differential pane l (Bld)on 07-28-2022 Basophils (Bld) [#/Vol] 0.03 10*3/uL <0.11 k/uL [facility] Basophils/100 WBC (Bld) 0.4 % [facility] Differential cell count method Nom (Bld) Auto [facility] Eosinophils (Bld) [#/Vol] 0.07 10*3/uL <0.46 k/uL [facility] Eosinophils/100 WBC (Bld) 0.9 % [facility] Erythrocyte distribution width (RBC) [Ratio] 13.0 % 11.5 - 15.0 % [facility] Hematocrit (Bld) [Volume fraction] 44.1 % 36.0 - 46.0 % [facility] Hemoglobin (Bld) [Mass/Vol] 14.3 g/dL 11.5 - 15.5 g/dL [facility] Immature granulocytes (Bld) [#/Vol] <0.10 k/uL [facility] Immature granulocytes/100 WBC (Bld) 0.3 % [facility] Lymphocytes (Bld) [#/Vol] 2.43 10*3/uL 1.00 - 4.00 k/uL [facility] Lymphocytes/100 WBC (Bld) 30.5 % [facility] MCH (RBC) [Entitic mass] 29.0 pg 26.0 - 34.0 pg [facility] MCHC (RBC) [Mass/Vol] 32.4 g/dL 30.5 - 36.0 g/dL [facility] MCV (RBC) [Entitic vol] 89.5 fL 80.0 - 100.0 fL [facility] Monocytes (Bld) [#/Vol] 0.49 10*3/uL <0.87 k/uL [facility] Monocytes/100 WBC (Bld) 6.1 % [facility] Neutrophils (Bld) [#/Vol] 4.93 10*3/uL 1.45 - 7.50 k/uL [facility] Neutrophils/100 WBC (Bld) 61.8 % [facility] Nucleated RBC (Bld) [#/Vol] <0.01 k/uL [facility] Nucleated RBC/100 WBC (Bld) [Ratio] 0.0 /100 WBC [facility] Platelet mean volume (Bld) [Entitic vol] 10.1 fL 9.0 - 12.7 fL [facility] Platelets (Bld) [#/Vol] 251 10*3/uL 150 - 400 k/uL [facility] RBC (Bld) [#/Vol] 4.93 10*6/uL 3.90 - 5.20 m/uL [facility] WBC (Bld) [#/Vol] 7.97 10*3/uL 3.70 - 11.00 k/uL [facility] Comprehensive metabolic 2000 panelon 07-28-2022 Albumin [Mass/Vol] 4.7 g/dL 3.9 - 4.9 g/dL [facility] ALP [Catalytic activity/Vol] 86 U/L 34 - 123 U/L [facility] ALT [Catalytic activity/Vol] 58 U/L High 7 - 38 U/L [facility] Anion gap [Moles/Vol] 12 mmol/L 9 - 18 mmol/L [facility] AST [Catalytic activity/Vol] 31 U/L 13 - 35 U/L [facility] Bilirubin [Mass/Vol] 0.4 mg/dL 0.2 - 1 .3 mg/dL [facility] Calcium [Mass/Vol] 10.0 mg/dL 8.5 - 10. 2 mg/dL [facility] Chloride [Moles/Vol] 105 mmol/L 97 - 10 5 mmol/L [facility] CO2 [Moles/Vol] 23 mmol/L 22 - 30 mmol/L [facility] Creatinine [Mass/Vol] 0.79 mg/dL 0.58 - 0.96 mg/dL [facility] Estimated Glomerular Filtration Rate 100 mL/min/1.73m >=60 mL/min/1.7 3m [facility] Glucose [Mass/Vol] 84 mg/dL 74 - 99 mg/dL [facility] Potassium [Moles/Vol] 4.1 mmol/L 3.7 - 5.1 mmol/L [facility] Protein [Mass/Vol] 7.7 g/dL 6.3 - 8.0 g/dL [facility] Sodium [Moles/Vol] 140 mmol/L 136 - 144 mmol/L [facility] Urea nitrogen [Mass/Vol] 12 mg/dL 7 - 21 mg/dL [facility] ESR Westergren method (Bld) [Velocity]on 07-28-2022 ESR (Bld) [Velocity] 5 mm/h 0 - 20 mm/hr [facility] No Panel Informationon 07-28 [facility] RHEUMATOID FACTOR BLon 07-28 Rheumatoid factor Qn <16 IU/mL [facility] XR CSPINE OBL FLEX_EXTon XR CSPINE [...] by: NAVNEET MONTERO Date: 2022-02-16 08:57 Normal [facility] Ferritin [Mass/volume] in Se rum or PlasmaOrdered By: Kenna Sheehan on 01-19-2022 Ferritin [Mass/Vol] 51.8 ng/mL 11-306.8 [facility] PAP ACOG PANEL 2: 30 to 65on 01-13-2022 . . Normal [facility] Comment on above: Result Comment: Perf ormed at: WB Performed By: #### 4 [id number] #### [facility] [address] [place] [address] Dr. Lui Fonseca Age Gdln ACOG Testing 30-65 Normal [facility] Comment on above: Performed By: #### [id number] #### [facility] [address] [place] [address] [address] Lui Fonseca DIAGNOSIS: Comment Normal [facility] Comment on above: Result Comment: NEGA TIVE FOR INTRAEPITHELIAL LESION OR MALIGNANCY. Performed at: WB Performed By: #### [id number] #### [facility] [address] [place] [address] [address] Lui Fonseca HPV Aptima Negative Normal Negative [facility] Comment on above: Result Comment: This nucleic acid amplification test detects fourteen high-risk HPV types (16,18,31,33,35,39,45,51,52,56,58,59,66,68) without differentiation. Performed at: =G Performed By: #### [id number] #### [facility] [address] [place] [address] Dr. Lui Fonseca Methodology: Comment Normal [facility] Comment on above: Result Comment: This liquid based ThinPrep(R) pap test was screened with the use of an image guided system. Performed at: WB Performed By: #### [id number] #### [facility] [address] [place] [address] Dr. Lui Fonseca Note: Comment Normal [facility] Comment on above: Result Comment: The Pap smear is a screening test designed to aid in the detection of premalignant and malignant conditions of the uterine cervix. It is not a diagnostic procedure and should not be used as the sole means of detecting cervical cancer. Both false-positive and false-negative reports do occur. . Performed at: WB Performed By: #### [id number] #### [facility] [address] [place] [address] Dr. Lui Fonseca Performed by: Comment Normal [facility] Comment on above: Result Comment: Susan Alejandro, Supervisory Packager And Strapper (ASCP) Performed at: WB Performed By: #### [id number] #### [facility] [address] [place] [address] Dr. Lui Fonseca Specimen adequacy: Comment Normal [facility] Comment on above: Result Comment: Sati sfactory for evaluation. No endocervical component is identified. Performed at: WB Performed By: #### 4 [id number] #### [facility] [address] [place] [address] Dr. Lui Fonseca INSULINon 01-02-2022 Insulin 20.6 uIU/mL Normal 2.6-24.9 [facility] Comment on above: Performed By: #### I NSULIN #### [facility] [address] [place] [address] Dr. Lui Fonseca H PYLORI ANTIBODY IGGon 12-19 H. PYLORI IGG ABS 0.15 Index Value Normal 0.00-0.79 [facility] Comment on above: Result Comment: Nega tive <0.80 Equivocal 0.80 - 0.89 Positive >0.89 Performed By: #### H PYLLC #### [facility] [address] [place] [address] Dr. Lui Fonseca T4, T3U, FTI LABCORPon 01-01 Free Thyroxine Index 2.7 Normal 1.2-4.9 [facility] Comment on above: Performed By: #### T HYLC #### [facility] [address] [place] [address] Dr. Lui Fonseca T3 Uptake 30 % Normal 24-39 [facility] Comment on above: Performed By: #### T HYLC #### [facility] [address] [place] [address] Dr. Lui Fonseca T4 [Mass/Vol] 9.1 ug/dL Normal 4.5-12.0 [facility] Comment on above: Performed By: #### T HYLC #### [facility] [address] [place] [address] Dr. Lui Fonseca CBC AUTO DIFFon 12-31-2021 BASO # 0.0 103/ul Normal 0.0-0.1 [facility] Comment on above: Performed By: #### C BC #### [facility] [address] [place] [address] Dr. Lui Fonseca Basophils/100 WBC (Bld) 0.4 % Normal 0.2-2.0 [facility] Comment on above: Performed By: #### C BC #### [facility] [address] [place] [address] Dr. Lui Fonseca EO # 0.2 103/ul Normal 0.0-0.7 [facility] Comment on above: Performed By: #### C BC #### [facility] [address] [place] [address] Dr. Lui Fonseca Eosinophils/100 WBC (Bld) 2.8 % Normal 0.9-7.0 [facility] Comment on above: Performed By: #### C BC #### [facility] [address] [place] [address] Dr. Lui Fonseca Erythrocyte distribution width (RBC) [Ratio] 13.2 % Normal 11.0-15.0 [facility] Comment on above: Performed By: #### C BC #### [facility] [address] [place] [address] Dr. Lui Fonseca Hematocrit (Bld) [Volume fraction] 44.0 % Normal 36.0-48.0 [facility] Comment on above: Performed By: #### C BC #### [facility] [address] [place] [address] Dr. Lui Fonseca Hemoglobin (Bld) [Mass/Vol] 14.3 g/dL Normal 12.0-16.0 [facility] Comment on above: Performed By: #### C BC #### [facility] [address] [place] [address] Dr. Lui Fonseca IG # 0.01 10e3/ul Normal 0.00-0.03 [facility] Comment on above: Performed By: #### C BC #### [facility] [address] [place] [address] Dr. Lui Fonseca IG % 0.2 % Normal 0.0-0.5 [facility] Comment on above: Performed By: #### C BC #### [facility] [address] [place] [address] Dr. Lui Fonseca LYMPH # 2.3 103/ul Normal 1.2-3.8 [facility] Comment on above: Performed By: #### C BC #### [facility] [address] [place] [address] Dr. Lui Fonseca Lymphocytes/100 WBC (Bld) 41.6 % Normal 20.5-60.0 [facility] Comment on above: Performed By: #### C BC #### [facility] [address] [place] [address] Dr. Lui Fonseca MANUAL DIFF REQ NO Normal [facility] Comment on above: Performed By: #### C BC #### [facility] [address] [place] [address] Dr. Lui Fonseca MCH (RBC) [Entitic mass] 29.1 pg Normal 26.7-34.0 [facility] Comment on above: Performed By: #### C BC #### [facility] [address] [address] [address] Lui Fonseca MCHC (RBC) [Mass/Vol] 32.5 g/dL Normal 29.9-35.2 [facility] Comment on above: Performed By: #### C BC #### [facility] [address] [place] [address] Dr. Lui Fonseca MCV (RBC) [Entitic vol] 89.6 fL Normal 81.0-99.0 [facility] Comment on above: Performed By: #### C BC #### [facility] [address] [place] [address] Dr. Lui oFnseca MONO # 0.3 103/ul Normal 0.3-0.8 [facility] Comment on above: Performed By: #### C BC #### [facility] [address] [place] [address] Dr. Lui Fonseca Monocytes/100 WBC (Bld) 6.3 % Normal 1.7-12.0 [facility] Comment on above: Performed By: #### C BC #### [facility] [address] [place] [address] Dr. Lui Fonseca NEUT # 2.7 103/ul Normal 1.4-6.5 [facility] Comment on above: Performed By: #### C BC #### [facility] [address] [place] [address] Dr. Lui Fonseca Neutrophils/100 WBC (Bld) 48.7 % Normal 43.0-75.0 [facility] Comment on above: Performed By: #### C BC #### [facility] [address] [place] [address] Dr. Lui Fonseca Platelet mean volume (Bld) [Entitic vol] 9.5 fL Normal 9.5-13.5 [facility] Comment on above: Performed By: #### C BC #### [facility] [address] [place] [address] Dr. Lui Fonseca PLT 276 103/ul Normal 150-450 [facility] Comment on above: Performed By: #### C BC #### [facility] [address] [address] [address] Lui Fonseca RBC 4.91 106/ul Normal 4.20-5.40 [facility] Comment on above: Performed By: #### C BC #### [facility] [address] [address] [address] Lui Fonseca WBC 5.4 103/ul Normal 4.0-11.0 [facility] Comment on above: Performed By: #### C BC #### [facility] [address] [address] [address] Lui Fonseca GLYCOHEMOGLOBIN A1Con 2021 ADA RECOMMENDATION SEE BELOW Normal [facility] Comment on above: Result Comment: ADA RECOMMENDED LIMIT 4.0 - 6.0 ADA THERAPEUTIC TARGET < 7.0 ACTION SUGGESTED > 7.0 Performed By: #### A 1C ####[facility] [address] [place] [address]Dr. Lui Fonseca Glucose [Mass/Vol] 97 mg/dL Normal [facility] Comment on above: Performed By: #### A 1C ####[facility] [address] [place] [address]Dr. Lui Fonseca HbA1c (Bld) [Mass fraction] 5.0 % Normal 4.5-6.2 [facility] Comment on above: Performed By: #### A 1C ####[facility] [address] [place] [address]Dr. Lui Fonseca IRONon 12-31-2021 Iron [Mass/Vol] 101.0 ug/dL Normal 50.0-170.0 [facility] Comment on above: Performed By: #### I EDMOND #### [facility] [address] [address] [address] Lui Fonseca LIPID PROFILEon 12-31-2021 CHOL-HDL RATIO NORM SEE BELOW Normal [facility] Comment on above: Result Comment: 3.3 - 4.4 LOW RISK 4.4 - 7.1 AVERAGE RISK 7.1 - 11.0 MODERATE RISK >11.0 HIGH RISK Performed By: #### T SH, LIPID, CMP ####[facility] [address] [place] [id number]. Lui Fonseca Cholesterol [Mass/Vol] 149 mg/dL Normal <=200 Th [facility] Comment on above: Performed By: #### T MAMADOU, LIPID, CMP ####[facility] [address] [place] [id number]. Lui Fonseca Cholesterol in HDL [Mass/Vol] 55 mg/dL Normal 40-60 [facility] Comment on above: Performed By: #### T SH, LIPID, CMP ####[facility] [address] [place] [id number]. Lui Fonseca Cholesterol in LDL [Mass/Vol] 61.4 mg/dL Normal [facility] Comment on above: Performed By: #### T MAMADOU, LIPID, CMP ####[facility] [address] [place] [address]Dr. Lui Fonseca Cholesterol.total/Chol esterol in HDL [Mass ratio] 2.7 {ratio} Normal [facility] Comment on above: Performed By: #### T MAMADOU, LIPID, CMP ####[facility] [address] [place] [address]Dr. Gabilan Fonseca HDL NORMAL > or = 60 mg/dl - LO W CARDIOVASCULAR RISK <40 mg/dl - HIGH CARDIOVASCULAR RISK Normal [facility] Comment on above: Performed By: #### T MAMADOU, LIPID, CMP ####[facility] [address] [place] [address]Dr. Lui Fonseca LDL CALC NORMAL SEE BELOW Normal [facility] Comment on above: Result Comment: <100 mg/dl OPTIMAL 100 - 129 mg/dl NEAR OR ABOVE OPTIMAL 130 - 159 mg/dl BORDERLINE HIGH 160 - 189 mg/dl HIGH >190 mg/dl VERY HIGH Performed By: #### T SH, LIPID, CMP ####[facility] [address] [place] [address]Dr. Lui Fonseca Triglyceride [Mass/Vol] 163 mg/dL Critically high <=150 [facility] Comment on above: Performed By: #### T SH, LIPID, CMP ####[facility] [address] [place] [address]Dr. Lui Fonseca VLDL CALC 32.6 mg/dL Normal [facility] Comment on above: Performed By: #### T MAMADOU, LIPID, CMP ####[facility] [address] [place] [address]Dr. Lui Fonseca OCC BLD IMMUNO SCREENon 12-19 OCCULT BLOOD Negative Normal NEGATIVE [facility] Comment on above: Performed By: #### O BSCRN #### [facility] [address] [address] [address] Lui Fonseca PROF 14(COMP METB)on 022 Albumin [Mass/Vol] 4.1 g/dL Normal 3.4-5.0 [facility] Comment on above: Performed By: #### T MAMADOU, LIPID, CMP ####[facility] [address] [place] [address]Dr. Lui Fonseca Albumin/Globulin [Mass ratio] 1.2 {ratio} Normal [facility] Comment on above: Performed By: #### T MAMADOU, LIPID, CMP ####[facility] [address] [place] [address]Dr. Lui Fonseca ALP [Catalytic activity/Vol] 86 U/L Normal 46-116 [facility] Comment on above: Performed By: #### T MAMADOU, LIPID, CMP ####[facility] [address] [place] [address]Dr. Lui Fonseca ALT [Catalytic activity/Vol] 27 U/L Normal 14-59 [facility] Comment on above: Performed By: #### T MAMADOU, LIPID, CMP ####[facility] [address] [place] [address]Dr. Lui Fonseca Anion gap [Moles/Vol] 14.1 mmol/L Normal [facility] Comment on above: Performed By: #### T SH, LIPID, CMP ####[facility] [address] [place] [address]Dr. Lui Fonseca AST [Catalytic activity/Vol] 15 U/L Normal 15-37 [facility] Comment on above: Performed By: #### T SH, LIPID, CMP ####[facility] Crwspcdpyg1228 [place] [id number]. Lui Fonseca Bilirubin [Mass/Vol] 0.6 mg/dL Normal 0.2-1.0 [facility] Comment on above: Performed By: #### T SH, LIPID, CMP ####[facility] Wjx[address]zs[address] [place] [address]Dr. Lui Fonseca Calcium [Mass/Vol] 9.1 mg/dL Normal 8.5-10.1 [facility] Comment on above: Performed By: #### T SH, LIPID, CMP ####[facility] Vfmf[address]uvv[address] [place] [address]Dr. Lui Fonseca Chloride [Moles/Vol] 104 mmol/L Normal 98-107 [facility] Comment on above: Performed By: #### T SH, LIPID, CMP ####[facility] [address] [place], [place] [address]Dr. Lui Fonseca CO2 [Moles/Vol] 26.8 mmol/L Normal 21.0-32.0 [facility] Comment on above: Performed By: #### T SH, LIPID, CMP ####[facility] [address] [place], [place] [address]Dr. Lui Fonseca Creatinine [Mass/Vol] 0.84 mg/dL Normal 0.55-1.02 [facility] Comment on above: Performed By: #### T SH, LIPID, CMP ####[facility] [address] [place], [place] [address]Dr. Lui Fonseca EGFR-AF POLISH >60 Normal >=60 [facility] Comment on above: Performed By: #### T SH, LIPID, CMP ####[facility] [address] [place], [place] [address]Dr. Lui Fonseca EGFR-NON AF POLISH >60 Normal >=60 [facility] Comment on above: Performed By: #### T SH, LIPID, CMP ####[facility] Gw[address] [place], [place] [address]Dr. Lui Fonseca Globulin (S) [Mass/Vol] 3.3 g/dL Normal [facility] Comment on above: Performed By: #### T SH, LIPID, CMP ####[facility] [address]scqns[address]pc[address] [place] [address]Dr. Lui Fonseca Glucose [Mass/Vol] 93 mg/dL Normal 74-106 [facility] Comment on above: Performed By: #### T MAMADOU, LIPID, CMP ####[facility] [address] [place] [address]Dr. Lui Fonseca Potassium [Moles/Vol] 3.9 mmol/L Normal 3.5-5.1 [facility] Comment on above: Performed By: #### T SH, LIPID, CMP ####[facility] B[address]wbfr[address] [place] [address]Dr. Lui Fonseca Protein [Mass/Vol] 7.4 g/dL Normal 6.4-8.2 [facility] Comment on above: Performed By: #### T MAMADOU, LIPID, CMP ####[facility] P[address]uf[address] [place], [place] [address]Dr. Lui Fonseca Sodium [Moles/Vol] 141 mmol/L Normal 136-145 [facility] Comment on above: Performed By: #### T MAMADOU, LIPID, CMP ####[facility] [address] [place], [place] [address]Dr. Lui Fonseca Urea nitrogen [Mass/Vol] 8.0 mg/dL Normal 7.0-18.0 [facility] Comment on above: Performed By: #### T MAMADOU, LIPID, CMP ####[facility] [address] [place], [place] [address]Dr. Lui Fonseca Urea nitrogen/Creatinine [Mass ratio] 9.5 mg/mg Normal [facility] Comment on above: Performed By: #### T SH, LIPID, CMP ####[facility] Z[address]jjadsbw[address] [place] [address]Dr. Lui Fonseca TSHon 12-31-2021 TSH 0.539 uIU/mL Normal 0.358-3.74 0 [facility] Comment on above: Performed By: #### T SH, LIPID, CMP ####[facility] [address] [place] [address]QdLatisha Fonseca Vital Signs Date Time Vital Sign Value Performing Clinician Facility 01-30-2024 13:48-0400 Body height 157.5 cm Harman Sullivan MD Work Phone: [facility] 01-30-2024 13:48-0400 Body mass index (BMI) [Ratio] 28.43 kg/m2 Harman Sullivan MD Work Phone: [facility] 01-30-2024 13:48-0400 Body weight 70.5 kg Harman Sullivan MD Work Phone: [facility] 01-30-2024 13:48-0400 Diastolic blood pressure 76 mm[Hg] Harman Sullivan MD Work Phone: [facility] 01-30-2024 13:48-0400 Heart rate 91 /min Harman Sullivan MD Work Phone: [facility] 01-30-2024 13:48-0400 Systolic blood pressure 115 mm[Hg] Harman Sullivan MD Work Phone: [facility] 10-31-2023 10:14-0400 Body height 157.5 cm Harman Sullivan MD Work Phone: [facility] 10-31-2023 10:14-0400 Body mass index (BMI) [Ratio] 27.82 kg/m2 Harman Sullivan MD Work Phone: [facility] 10-31-2023 10:14-0400 Body weight 69 kg Harman Sullivan MD Work Phone: [facility] 10-31-2023 10:14-0400 Diastolic blood pressure 70 mm[Hg] Harman Sullivan MD Work Phone: [facility] 10-31-2023 10:14-0400 Heart rate 84 /min Harman Sullivan MD Work Phone: [facility] 10-31-2023 10:14-0400 Systolic blood pressure 109 mm[Hg] Harman Sullivan MD Work Phone: [facility] 09-21-2023 08:12-0400 Body height 157.5 cm Harman Sullivan MD Work Phone: [facility] 09-21-2023 08:12-0400 Body mass index (BMI) [Ratio] 27.58 kg/m2 Harman Sullivan MD Work Phone: [facility] 09-21-2023 08:12-0400 Body weight 68.4 kg Harman Sullivan MD Work Phone: [facility] 09-21-2023 08:12-0400 Diastolic blood pressure 74 mm[Hg] Harman Sullivan MD Work Phone: [facility] 09-21-2023 08:12-0400 Heart rate 84 /min Harman Sullivan MD Work Phone: [facility] 09-21-2023 08:12-0400 SaO2% (BldA) [Mass fraction] 99 % Hamran Sullivan MD Work Phone: [facility] 09-21-2023 08:12-0400 Systolic blood pressure 109 mm[Hg] Harman Sullivan MD Work Phone: [facility] 05-15-2023 12:15-0500 Diastolic blood pressure 67 mm[Hg] MD Filiberto Ying Work Phone: [facility] 05-15-2023 12:15-0500 Heart rate 86 /min MD Filiberto Ying Work Phone: [facility] 05-15-2023 12:15-0500 Respiratory rate 16 /min MD Filiberto Ying Work Phone: [facility] 05-15-2023 12:15-0500 SaO2% (BldA) [Mass fraction] 100 % MD Filibreto Ying Work Phone: [facility] 05-15-2023 12:15-0500 Systolic blood pressure 125 mm[Hg] MD Filiberto Ying Work Phone: [facility] 05-15-2023 11:10-0500 Inhaled oxygen flow rate 6 L/min MD Filiberto Ying Work Phone: [facility] 05-15-2023 10:55-0500 Body temperature 98.1 [degF] MD Filiberto Ying Work Phone: [facility] 05-15-2023 09:30-0500 Body mass index (BMI) [Ratio] 25.8 kg/m2 MD Filiberto Ying Work Phone: [facility] 05-15-2023 08:55-0500 Body height 157.48 cm MD Filiberto Ying Work Phone: [facility] 05-15-2023 08:55-0500 Body weight 64 kg MD Filiberto Ying Work Phone: [facility] 04-05-2023 12:08-0500 Body temperature 98.2 [degF] MD Filiberto Ying Work Phone: [facility] 04-05-2023 12:08-0500 Diastolic blood pressure 69 mm[Hg] MD Filiberto Ying Work Phone: [facility] 04-05-2023 12:08-0500 Heart rate 87 /min MD Filiberto Ying Work Phone: [facility] 04-05-2023 12:08-0500 Respiratory rate 18 /min MD Filiberto Ying Work Phone: [facility] 04-05-2023 12:08-0500 SaO2% (BldA) [Mass fraction] 100 % MD Filiberto Ying Work Phone: [facility] 04-05-2023 12:08-0500 Systolic blood pressure 110 mm[Hg] MD Filiberto Ying Work Phone: [facility] 01-12-2023 09:35-0400 Body height 157.5 cm Maria Del Carmen Borges APRN.[employer]ER Work Phone: [facility] 01-12-2023 09:35-0400 Body weight 70.31 kg Maria Del Carmen Borges CARRIER ASSOCIATE.[employer]ER Work Phone: [facility] 01-12-2023 09:35-0400 Diastolic blood pressure 69 mm[Hg] Maria Del Carmen Borges CARRIER ASSOCIATE.[employer]ER Work Phone: [facility] 01-12-2023 09:35-0400 Heart rate 110 /min Maria Del Carmen Borges CARRIER ASSOCIATE.[employer]ER Work Phone: [facility] 01-12-2023 09:35-0400 SaO2% (BldA) [Mass fraction] 93 % Maria Del Carmen Bernarda CARRIER ASSOCIATE.[employer]ER Work Phone: [facility] 01-12-2023 09:35-0400 Systolic blood pressure 110 mm[Hg] Maria Del Carmen Borges CARRIER ASSOCIATE.[employer]ER Work Phone: [facility] 10-23-2022 14:14-0400 Diastolic blood pressure 66 mm[Hg] MD Filiberto Ying Work Phone: [facility] 10-23-2022 14:14-0400 Heart rate 100 /min MD Filiberto Ying Work Phone: [facility] 10-23-2022 14:14-0400 Systolic blood pressure 113 mm[Hg] MD Filiberto Ying Work Phone: [facility] 10-23-2022 13:50-0400 SaO2% (BldA) [Mass fraction] 99 % MD Filiberto Ying Work Phone: [facility] 09-20-2022 10:01-0400 Diastolic blood pressure 88 mm[Hg] Filiberto M Hoy Work Phone: [facility] 250 DO Work Phone: 09-20-2022 10:01-0400 Diastolic blood pressure 84 mm[Hg] Filiberto M Hoy Work Phone: [facility] 250 DO Work Phone: 09-20-2022 10:01-0400 Diastolic blood pressure 86 mm[Hg] Filiberto M Hoy Work Phone: [facility] 250 DO Work Phone: 09-20-2022 10:01-0400 Systolic blood pressure 120 mm[Hg] Filiberto Zoe Hoy Work Phone: [facility] 250 DO Work Phone: 09-20-2022 10:01-0400 Systolic blood pressure 122 mm[Hg] Filiberto Zoe Hoy Work Phone: [facility] 250 DO Work Phone: 09-20-2022 09:59-0400 Body height 157.48 cm Filiberto Zoe Hoy Work Phone: [facility] 250 DO Work Phone: 09-20-2022 09:59-0400 Body mass index (BMI) [Ratio] 30.36 kg/m2 Filiberto Zoe Hoy Work Phone: [facility] 250 DO Work Phone: 09-20-2022 09:59-0400 Body surface area Derived from formula 1.77 m2 Filiberto Zoe Hoy Work Phone: [facility] 250 DO Work Phone: 09-20-2022 09:59-0400 Body weight 75.3 kg Filiberto Aguilar Hoy Work Phone: [facility] 250 DO Work Phone: 09-20-2022 09:59-0400 Diastolic blood pressure 88 mm[Hg] Filiberto Aguilar Hoy Work Phone: [facility] 250 DO Work Phone: 09-20-2022 09:59-0400 Heart rate 85 /min Filiberto Zoe Hoy Work Phone: [facility] 250 DO Work Phone: 09-20-2022 09:59-0400 Systolic blood pressure 120 mm[Hg] Filiberto Zoe Hoy Work Phone: [facility] 250 DO Work Phone: 07-28-2022 13:01-0500 Body height 157.5 cm Somjita Braxton CARRIER ASSOCIATE.[employer]ER Work Phone: [facility] 07-28-2022 13:01-0500 Body temperature 97.81 [degF] Somjita Braxton CARRIER ASSOCIATE.[employer]ER Work Phone: [facility] 07-28-2022 13:01-0500 Body weight 79.11 kg Somjita Braxton CARRIER ASSOCIATE.[employer]ER Work Phone: [facility] 07-28-2022 13:01-0500 Diastolic blood pressure 59 mm[Hg] Somjita Braxton CARRIER ASSOCIATE.[employer]ER Work Phone: [facility] 07-28-2022 13:01-0500 Heart rate 85 /min Somjita Braxton CARRIER ASSOCIATE.[employer]ER Work Phone: [facility] 07-28-2022 13:01-0500 Systolic blood pressure 117 mm[Hg] Somjita Braxton CARRIER ASSOCIATE.[employer] Work Phone: [facility] Encounters Encounter Date Encounter Type Care Provider Facility Start: 01-30-2024 End: 01-30-2024 ambulatory HARMAN SULLIVAN Facility:[facility] Start: 01-30-2024 End: 01-30-2024 Patient encounter procedure Harman Sullivan MD Work Phone: Neurology Comment on above: Chronic migraine wit hout aura, with intractable migraine, so stated, with status migrainosus (Primary Dx); Neck pain Start: 01-28-2024 End: 01-28-2024 Patient encounter procedure MD Filiberto Ying Work Phone: [facility] for [facility] Car Start: 01-28-2024 End: 01-28-2024 ambulatory MD Filiberto Ying Work Phone: [facility] Work Phone: Start: 11-09-2023 ambulatory [facility] Provider Neurology Comment on above: Paperwork Start: 11-09-2023 E-mail encounter kennedy aguilar caregiver [facility] Provider Neurology Start: 10-31-2023 Telephone encounter Harman fraser MD Work Phone: Neurology Comment on above: Appointment Start: 10-31-2023 End: 10-31-2023 ambulatory HARMAN SULLIVAN Facility:[facility] Start: 10-31-2023 End: 10-31-2023 Patient encounter procedure Harman Sullivan MD Work Phone: Neurology Comment on above: Chronic migraine wit hout aura, with intractable migraine, so stated, with status migrainosus (Primary Dx); Neck pain Start: 10-18-2023 Get Medical Advice Maria Del Carmen caraballo CARRIER ASSOCIATE.B[employer]ER Work Phone: Neurology Comment on above: Med refill Refill Request Start: 10-11-2023 Telephone encounter Harman fraser MD Work Phone: Neurology Comment on above: Insurance Authorizat ion (Botox) Start: 10-03-2023 ambulatory Maria Del Carmen Giles PRN.[employer]ER Work Phone: Neurology Comment on above: Fmla Start: 09-21-2023 Telephone encounter Harman fraser MD Work Phone: Neurology Comment on above: Request Outside [facility] Records Start: 09-21-2023 End: 09-21-2023 ambulatory HARMAN SULLIVAN Facility:[facility] Start: 09-21-2023 End: 09-21-2023 Patient encounter procedure Harman Sullivan MD Work Phone: Neurology Comment on above: Chronic migraine wit hout aura, with intractable migraine, so stated, with status migrainosus (Primary Dx); Neck pain; RLS (restless legs syndrome) Start: 09-15-2023 Refill Maria Del Carmen PHAM.B[employer]LING BALL WE[employer]HER [employer]ER Work Phone: Neurology Comment on above: Refill Request Start: 09-04-2023 End: 09-04-2023 ambulatory Maria Del Carmen Borges APRN.[employer]ER Work Phone: Neurology Comment on above: Cervical dystonia (P rimary Dx) Start: 09-04-2023 End: 09-04-2023 Telemedicine consultation with patient Maria Del Carmen Borges APRN.[employer]ER Work Phone: [facility] Start: 09-03-2023 E-mail encounter fro m caregiver Maria Del Carmen Borges CARRIER ASSOCIATE.B[employer]HER [employer]ER Work Phone: Neurology Start: 09-03-2023 Patient encounter procedure Maria Del Carmen Borges CARRIER ASSOCIATE.[employer]ER Work Phone: Neurology Comment on above: appointment Start: 07-30-2023 End: 07-30-2023 ambulatory VALERIO SANZ Not Available Start: 05-23-2023 End: 05-23-2023 ambulatory DANO PYLE Not Available Start: 05-15-2023 End: 05-15-2023 Admission to same day surgery center MD Filiberto Ying Work Phone: [facility] [employer] Start: 05-15-2023 End: 05-15-2023 ambulatory MD Filiberto Ying Work Phone: [facility] Work Phone: Start: 05-01-2023 End: 05-01-2023 Patient encounter procedure MD Filiberto Ying Work Phone: [facility]Pre-Surgical Testing Work Phone: Start: 05-01-2023 End: 05-01-2023 ambulatory MD Filiberto Ying Work Phone: [facility] Work Phone: Start: 04-05-2023 End: 04-05-2023 Admission to same day surgery center MD Filiberto Ying Work Phone: [facility] for Breast Car Start: 04-05-2023 End: 04-05-2023 ambulatory MD Filiberto Ying Work Phone: [facility] Work Phone: Start: 02-19-2023 Telephone encounter Maria Del Carmen Tucker on CARRIER ASSOCIATE.B[employer]ING [employer]HER [employer]ER Work Phone: Neurology Comment on above: Results ([facility] ) Start: 02-09-2023 Telephone encounter Maria Del Carmen uTcker on CARRIER ASSOCIATE.B[employer]HER [employer]ER Work Phone: Neurology Comment on above: Results ([facility] ) Start: 02-07-2023 End: 02-07-2023 Patient encounter procedure MD Filiberto Ying Work Phone: [facility] [employer] Work Phone: Start: 02-07-2023 End: 02-07-2023 ambulatory MD Filiberto Ying Work Phone: [facility] Work Phone: Start: 01-19-2023 Orders Only Maria Del Carmen Giles PRN.B[employer]ER Work Phone: Neurology Start: 01-17-2023 ambulatory Maria Del Carmen Giles PRN.[employer] Work Phone: Neurology Comment on above: Labs and rx Start: 01-12-2023 End: 01-12-2023 Patient encounter procedure Maria Del Carmen Borges CARRIER ASSOCIATE.B[employer]HER [employer]ER Work Phone: Neurology Comment on above: Cervical dystonia (P rimary Dx); Neck tightness; RLS (restless legs syndrome) Start: 01-08-2023 Chart Update Filiberto Ying Work Phone: [facility] 320 DO Work Phone: Start: 12-28-[address] Soraya Ford acility:[id number] Start: 11-14-2022 ambulatory Soraya Cage Facility:1 [id number] Start: 11-10-2022 FU, Provider: Saeed Castellanos, Status: Pen, Time: 8:50 AM Filiberto Ying Work Phone: [facility] Work Phone: Start: 11-10-[address] Saeed Castellanos Facility: Start: 11-02-[address] Saeed bahena [facility] Facility: Start: 11-02-[address] Saeed Castellanos Facility: Start: 10-23-2022 End: 10-23-2022 ambulatory MD Filiberto Ying Work Phone: [facility] Work Phone: Start: 10-23-2022 End: 10-23-2022 Patient encounter procedure MD Filiberto Ying Work Phone: [facility]Electrodiagnostics Work Phone: Start: 10-23-2022 ambulatory Romero Jones Facjuwan lity:[id number] Start: 10-12-2022 End: 10-12-2022 Patient encounter procedure MD Filiberto Ying Work Phone: [facility] for [facility] Work Phone: Start: 10-06-[address] FILIBERTO YING . Facili ty:H1 Start: 09-29-2022 EVENT EMORY, Provider : MOOKIE YOUNG CLERICAL CLERK 1,[id number], Status: Pen, Time: 1:00 PM Filiberto Ying Work Phone: [facility] 250 DO Work Phone: Start: 09-29-2022 Patient encounter procedure Filiberto Ying Work Phone: [facility] 250 DO Work Phone: Start: 09-29-[address] Saeed Castellanos Facility: Start: 09-20-2022 Office consultation new/estab patient 60 min Filiberto Ying Work Phone: [facility] 250 DO Work Phone: Start: 09-20-[address] Saeed Castellanos Facility: Start: 08-11-2022 End: 08-11-2022 ambulatory Nayely Limon APRN.[employer]HER [employer]ER Work Phone: Rheumatology Comment on above: Neck pain, chronic ( Primary Dx); Fibromyalgia Start: 08-11-2022 End: 08-11-2022 Telemedicine consultation with patient Artfarzaneh Naqvifuad KEYESBOWLING BALL WEIGHER AND PACKER Work Phone: [facility] Start: 07-28-2022 End: 07-28-2022 Subsequent [...] MD Filiberto Ying Work Phone: [facility] [employer] Start: 01-09-2022 End: 01-09-[address] FABY RAYMOND . Facility:H1 Start: 01-03-2022 Encounter for genera l adult medical examination without abnormal findings DR FILIBERTO YING . [facility] Start: 12-31-2021 End: 01-01-[address] FILIBERTO YING . Facility:[facility] Start: 12-31-2021 End: 01-01-2022 Encounter for general adult medical examination without abnormal findings DR FILIBERTO YING . Facility:[facility] Start: 11-18-2021 End: 11-18-2021 Patient encounter procedure MD Filiberto iYng Work Phone: [facility] [employer] Procedures Date Procedure Procedure Detail Performing Clinician [...] cervical 4 or 5 views Somjita Braxton CARRIER ASSOCIATE.B[employer]HER [employer]ER Work Phone: Start: 07-28-2022 Radiologic exam chest 2 views Somjita Braxton CARRIER ASSOCIATE.B[employer]HER [employer]ER Work Phone: Start: 11-18-2021 MRI of head [...] Detail Author Start: 01-03-2030 Urine microalbumin profile [facility] Start: 10-29-2024 End: 10-29-2024 Patient encounter procedure 10/29/2024 4:30 PM EDT Office Visit Neurology [address] [facility] [place] [phone] Harman Sullivan MD [address] [facility] [address] [place], [place] [address] F/u hold for botox Neurology Comment on above: F/u hold for botox Start: 07-30-2024 End: 07-30-2024 Patient encounter procedure 07/30/2024 4:30 PM EDT Office Visit Neurology [address] [facility] [place] [phone] Harman Sullivan MD [address] [facility] [address] [place], [place] [phone] Botox Neurology Comment on above: Botox Start: 04-30-2024 End: 04-30-2024 Patient encounter procedure 04/30/2024 8:30 AM EST Office Visit Neurology [address] [facility] [place] [phone] Harman Sullivan MD [address] [facility] [address] [place], [place] [phone] Botox Neurology Comment on above: Botox Start: 01-30-2024 End: 01-30-2024 Patient encounter procedure 01/30/2024 2:00 PM EDT Office Visit Neurology [address] [facility] [place] [address] Harman Sullivan MD [address] [facility] [address] [place], [place] [address] Botox Neurology Comment on above: Botox Start: 01-20-2024 Covid-19 Vaccine ( season) Covid-19 Vaccine ( season) [facility] Start: 01-20-2024 Influenza vaccination C [facility] Start: 11-06-2023 End: 11-06-2023 Patient encounter procedure 11/06/2023 10:30 AM EDT Office Visit Neurology [address] [place] [address] Harman Sullivan MD [address] [facility] [address] [place], [place] [id number] Three week follow up Neurology Comment on above: Three week follow up Start: 10-31-2023 End: 10-31-2023 Patient encounter procedure 10/31/2023 10:30 AM EDT Office Visit Neurology [address] [facility] [place] [address] Harman Sullivan MD [address] [facility] [address] [place], [place] [phone] Botox auth approved Neurology Comment on above: Botox auth approved Start: 09-21-2023 End: 09-21-2023 Patient encounter procedure 09/21/2023 8:30 AM EDT Office Visit Neurology [address] [facility] [place] [address] Harman Sullivan MD [address] [place] [address] [place], [place] [phone] Cervical dystonia [G24.3] Neurology Comment on above: Cervical dystonia [G 24.3] Start: 05-21-2023 Behavioral Health Screening Behavioral Health Screening [facility] Start: 05-15-2023 [facility] Start: 05-15-2023 [facility] Start: 04-05-2023 [facility] Start: 03-16-2023 FUV, Provider: Soraya Cage, Status: Pen, Time: 1:00 PM FUV, Provider: Soraya Cage, Status: Pen, Time: 1:00 PM [place] [address] DO Work Phone: Start: 01-19-2023 Covid-19 Vaccine ( season) Covid-19 Vaccine ( season) [facility] Start: 01-19-2023 Influenza vaccination C [facility] Start: 01-12-2023 End: 03-14-2023 CBC panel - Blood by Automated count CBC Lab Routine RLS (restless legs syndrome) Expected: 01/12/2023, Expires: 03/14/2023 [facility] [facility] Work Phone: Comment on above: Expected: 01/12/2023 , Expires: 03/14/2023 Start: 01-12-2023 End: 03-14-2023 Cobalamin (Vitamin B12) [Mass/volume] in Serum or Plasma VITAMIN B12 BLOOD Lab Routine RLS (restless legs syndrome) Expected: 01/12/2023, Expires: 03/14/2023 [facility] Work Phone: Comment on above: Expected: 01/12/2023 , Expires: 03/14/2023 Start: 01-12-2023 End: 03-14-2023 Comprehensive metabolic 2000 panel - Serum or Plasma COMP METABOLIC PANEL Lab Routine RLS (restless legs syndrome) Expected: 01/12/2023, Expires: 03/14/2023 [facility] Work Phone: Comment on above: Expected: 01/12/2023 , Expires: 03/14/2023 Start: 01-12-2023 End: 03-14-2023 Ferritin [Mass/volume] in Serum or Plasma FERRITIN BLD Lab Routine RLS (restless legs syndrome) Expected: 01/12/2023, Expires: 03/14/2023 [facility] Work Phone: Comment on above: Expected: 01/12/2023 , Expires: 03/14/2023 Start: 01-12-2023 End: 03-14-2023 Iron and Iron binding capacity panel - Serum or Plasma IRON + TIBC Lab Routine RLS (restless legs syndrome) Expected: 01/12/2023, Expires: 03/14/2023 [facility] Work Phone: Comment on above: Expected: 01/12/2023 , Expires: 03/14/2023 Start: 11-14-2022 NPVRFRL, Provider: Soraya Cage, Status: Pen, Time: 4:20 PM NPVRFRL, Provider: Soraya Cage, Status: Pen, Time: 4:20 PM [facility] Work Phone: Start: 11-10-2022 FUV, Provider: Saeed Castellanos, Status: Pen, Time: 8:50 AM FUV, Provider: Saeed Castellanos, Status: Pen, Time: 8:50 AM [facility] 250 DO Work Phone: Start: 10-23-2022 SURGNON, Provider: Romero Jones, Status: Pen, Time: 2:00 PM [facility]: Romero Jones, Status: Pen, Time: 2:[address] [facility] 250 DO Work Phone: Start: 09-29-2022 EVENT EMORY, Provider : MOOKIE YOUNG CLERICAL CLERK 1,[id number], Status: Pen, Time: 1:00 PM [facility], Provider: MOOKIE YOUNG CLERICAL CLERK 1,[id number], Status: Pen, Time: 1:00 PM [facility] 250 DO Work Phone: Start: 05-21-2022 DEPRESSION ASSESSMENT DEPRESSION ASS ESSMENT [facility] Start: 01-19-2022 Influenza vaccination INFLUENZA (#1) [facility] Start: 2017 HPV TESTING HPV TESTING [facility] Start: 2017 Screening for malign ant neoplasm of cervix HPV Testing [facility] Start: 01-07-2008 PAP TESTING PAP TESTING [facility] Start: 01-07-2008 Screening for malign ant neoplasm of cervix [facility] Start: 2006 Hepatitis B Vaccine (1 of 3 - 19+ 3-dose series) Hepatitis B Vaccine (1 of 3 - 19+ 3-dose series) [facility] Start: 2005 Anxiety Screening Anxiety Screening [facility] Start: 2005 Depression Screening Depression Scre ening [facility] Start: 2005 HEPATITIS C SCREENING HEPATITIS C [facility] Start: 2005 Hepatitis C screening [facility] Start: 2005 HIV SCREENING HIV SCREENING [facility] Start: 2005 HIV screening HIV Screening [facility] Start: 1987 COVID-19 VACCINE (#1) COVID-19 VACCI NE (#1) [facility] Start: 1987 HEPATITIS B (1 of 3 - 3-dose series) HEPATITIS B (1 of 3 - 3-dose series) [facility] Start: 1987 Hepatitis B Vaccine (1 of 3 - 3-dose series) Hepatitis B Vaccine (1 of 3 - 3-dose series) [facility] Patient referral [facility] Work Phone: [facility] Immunizations Immunization Date Immunization Notes Care Provider Alina treviño 01-04-2020 tetanus toxoid, redu hawa diphtheria toxoid, and acellular pertussis vaccine, adsorbed Xr A21 [facility] 07-27-2016 tetanus toxoid, redu hawa diphtheria toxoid, and acellular pertussis vaccine, adsorbed Xr A21 [facility] Payers Date Payer Category Payer Private Health Insurance [id number] 2022 Private Health Insurance [id number] 2022 Medicaid [place] [employer] [employer] [id number] 2022-Present [phone] [place] [address] Medicaid [id number] 1987 Unknown [id number] 2.16.840.1.686082.3.579.2. 593 1987 Unknown [id number] 2.16.840.1.535763.3.579.2. 593 1987 Unknown [id number] 2.16.840.1.697704.3.579.2. 593 1987 Unknown [id number] 2.16.840.1.909041.3.579.2. 593 1987 Unknown [id number] 2.16.840.1.075708.3.579.2. 593 1987 Unknown [id number] 2.16.840.1.959812.3.579.2. 593 1987 Unknown [id number] 2.16.840.1.049739.3.579.2. 593 1987 Unknown [id number] 2.16.840.1.593173.3.579.2. 593 1987 Unknown [id number] 2.16.840.1.397185.3.579.2. 593 1987 Unknown [id number] 2.16.840.1.493523.3.579.2. 1068 1987 Unknown [id number] 2.16.840.1.447622.3.579.2. 356 1987 Unknown [id number] 2.16.840.1.060492.3.579.2. 356 1987 Unknown [id number] 2.16.840.1.095322.3.579.2. 356 1987 Unknown [id number] 2.16.840.1.176414.3.579.2. 356 1987 Unknown [id number] 2.16.840.1.398476.3.579.2. 356 1987 Unknown [id number] 2.16.840.1.099399.3.579.2. 356 1987 Unknown [id number] 2.16.840.1.393612.3.579.2. 356 1987 Unknown [id number] 2.16.840.1.634170.3.579.2. 1259 1987 Unknown [id number] 2.16.840.1.868564.3.579.2. 1259 05-21-1957 Medicaid [id number] Medicaid Pierz Advantage [id number] Self-pay Self Pay [id number] Unknown [employer] BC/BS [id number] Unknown [id number] Unknown HCAP/HFA/FAP Active [id number] Social History Date Type Detail Facility Start: 06-13-2012 End: 12-24-2020 Tobacco smoking status NHIS Never smoked tobacco (finding) [facility] Start: 1987 Sex Assigned At Female F [facility] Start: 06-13-2012 Tobacco use and exposure Smokeless tobacco non-user [facility] Work Phone: Start: 07-28-2022 End: 01-30-2024 Alcohol intake Current non-drinker of alcohol (finding) [facility] Start: 01-12-2023 End: 01-30-2024 No caffeine use No caffeine use [facility] Start: 01-12-2023 End: 01-30-2024 Tobacco use panel [facility] Adult Depression Screening Assessment 2 [facility] Start: 07-28-2022 Gender identity Identifies as female gender (finding) [facility] Start: 07-28-2022 Sexual orientation Heterosexual (fin dayron) [facility] Goals Date Patient Goal Desired Activity /State Clinical Notes 02-16-2022 to 01-30-2024 Harman Sullivan MD - 01/30/2024 1:49 PM EDTTelephone Encounter - Harman Sullivan MD - 11/01/2023 9:17 AM EDTTelephone Encounter - Harman Sullivan MD - 11/01/2023 9:17 AM EDTPatient Instructions Note Date & Type Note Facility 01-30-2024 Note HNO ID: [id number] Author: HARMAN SULLIVAN MD Service: ? Author [...] brought in by patient? No Lot #: [id number] Exp: 03/2026 Dilution: 5 units/0.1 ml (100 [...] Optional follow pain # units L R Funeral Assistant 10 units divided in 2 sites XXXXXXX [...] in Treatment Plan? No Harman Sullivan MD [facility] 01-30-2024 History of Presen t illness Narrative [...] brought in by patient? No Lot #: [id number] Exp: 03/2026 Dilution: 5 units/0.1 ml (100 [...] Optional follow pain # units L R Funeral Assistant 10 units divided in 2 sites XXXXXXX [...] Harman Sullivan MD documented in this encounter [facility] 11-01-2023 Telephone encounter Note We may need to start reserving some slots for Botox if I'm booking out more than 3 months. Is that something escalating to admin can accomplish? Maybe having like 3 follow up slots a week for botox that revert to regular if not booked a few weeks before that date. [facility] 11-01-2023 Miscellaneous Notes We may need [...] 29 and after. documented in this encounter [facility] 10-31-2023 Note HNO ID: [id number] Author: HARMAN SULLIVAN MD Service: ? Author [...] BOTOX brought in by patient? No Lot #:[id number] Exp: 10/2025 Dilution: 5 units/0.1 ml (100 [...] Optional follow pain # units L R Funeral Assistant 10 units divided in 2 sites XXXXXXX [...] in Treatment Plan? No Harman Sullivan MD [facility] 10-31-2023 History of Presen t illness Narrative [...] BOTOX brought in by patient? No Lot #:[id number] Exp: 10/2025 Dilution: 5 units/0.1 ml (100 [...] Optional follow pain # units L R Funeral Assistant 10 units divided in 2 sites XXXXXXX [...] Harman Sullivan MD documented in this encounter [facility] 10-31-2023 Telephone encounter Note Placed at desk for review. [facility] 10-31-2023 Miscellaneous Notes Placed at desk for review. Patient brought in [facility] paperwork for Dr. Sullivan to fill out. Forms placed in providers mailbox. documented in this encounter [facility] 10-31-2023 Telephone encounter Note Patient needs a botox appointment slot opened anytime January 29 and after. [facility] 10-31-2023 Telephone encounter Note Patient brought in [facility] paperwork for Dr. Sullivan to fill out. Forms placed in providers mailbox. [facility] 10-19-2023 Telephone encounter Note Per Epic referral, Botox is approved. 10/16/23 to 10/14/24 200 units every 12 weeks Called patient, and she is agreeable to using the SunOctober 30 slot to get her Botox in [place]. Per Dr. Sullivan, she does not need to then also keep her November 05 appt. [facility] 10-19-2023 Miscellaneous Notes Per Epic referral, Botox is approved. 10/16/23 to 10/14/24 200 units every 12 weeks Called patient, and she is agreeable to using the SunOctober 30 slot to get her Botox in [place]. Per Dr. Sullivan, she does not need to then also keep her November 05 appt. Prior Authorization PENDING Medication/ Treatment: BOTOX Submitted Via Epic Referral Attempted to submit via phone to expedite request, but plan does not allow this. documented in this encounter [facility] 10-18-2023 Miscellaneous Notes Images from the original note were not included. Maria Del Carmen Borges APRN.BOWLING BALL WEIGHER AND PACKER You6 minutes ago (8:35 AM) I can for this time, but Dr. Hernandez moving forward as he is managing her neck tightness. PRATIBHA Mccullough, RN, BA documented in this encounter [facility] 10-18-2023 Telephone encounter Note Images from the original note were not included. Maria Del Carmen Borges APRN.BOWLING BALL WEIGHER AND PACKER You6 minutes ago (8:35 AM) I can for this time, but Dr. Hernandez moving forward as he is managing her neck tightness. PRATIBHA Mccullough, RN, BA [facility] Work Phone: 10-11-2023 Telephone encounter Note Prior Authorization PENDING Medication/ Treatment: BOTOX Submitted Via Epic Referral Attempted to submit via phone to expedite request, but plan does not allow this. [facility] 10-03-2023 Telephone encounter Note Images from the original note were not included. Maria Del Carmen Borges APRN.BOWLING BALL WEIGHER AND PACKER You6 minutes ago (3:03 PM) As she is now working with movement disorder for this concern, I would defer this to their team. PRATIBHA Mccullough, RN, BA [facility] Work Phone: 10-03-2023 Miscellaneous Notes Images from the original note were not included. Maria Del Carmen Borges APRN.BOWLING BALL WEIGHER AND PACKER You6 minutes ago (3:03 PM) As she is now working with movement disorder for this concern, I would defer this to their team. PRATIBHA Mccullouhg, RN, BA documented in this encounter [facility] 09-21-2023 Instructions Harman Sullivan MD - [...] can increase further documented in this encounter [facility] 09-21-2023 Telephone encounter Note Requested image transfer from [facility] for most recent head/ neck imaging. [facility] 09-21-2023 Note HNO ID: [id number] Author: HARMAN SULLIVAN MD Service: ? 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 [facility] 09-21-2023 History of Presen t illness Narrative [...] cervical dystonia, and RLS who presents to [facility]. Her examination demonstrates normal head position [...] next month for Botox. Harman Sullivan MD [facility] Neurology documented in this encounter [facility] 09-21-2023 Miscellaneous Notes Requested image transfer from [facility] for most recent head/ neck imaging. documented in this encounter [facility] 09-13-2023 Telephone encounter Note Images from the original note were not included. Maria Del Carmen Borges APRN.BOWLING BALL WEIGHER AND PACKER You 58 minutes ago (1:58 PM) Keep the appointment until she sees Dr. Sullivan on September 20. PRATIBHA Mccullough, RN, BA [facility] Work Phone: 09-13-2023 Miscellaneous Notes Images from the original note were not included. Maria Del Carmen Borges APRN.BOWLING BALL WEIGHER AND PACKER You 58 minutes ago (1:58 PM) Keep the appointment until she sees Dr. Sullivan on September 20. PRATIBHA Mccullough, RN, BA documented in this encounter [facility] 09-04-2023 History of Presen t illness Narrative Brittanie Garcia is a 38 year old female. Patient presents with: Follow Up Today I had the opportunity to have a virtual visit with Brittanie Garcia I have communicated my name and active licensure. The patient's identity and physical location were verified at the time of this visit. Either the patient or their legal account representative has been informed of the [...] seeing the movement disorder clinic here at [facility] for an opinion about her [...] which included preparing to see the patient, cbgn-ni-[id number] patient care, completing clinical documentation, obtaining and/or reviewing separately obtained history, and counseling and educating the patient/family/caregiver. There is no problem list on file for this patient. No orders found for this visit on 09/04/23. Maria Del Carmen Borges MSN, CARRIER ASSOCIATE, COOKEE-C documented in this encounter [facility] 09-04-2023 Note HNO ID: [id number] Author: MARIA DEL CARMEN BORGES APRN.ZULMA Service: [...] visit. Either the patient or their legal account representative has been informed of the [...] seeing the movement disorder clinic here at [facility] for an opinion about her [...] with her Mari (more content not included)... [facility] 02-19-2023 Miscellaneous Notes Images from the original note were not included. Maria Del Carmen Borges APRN.BOWLING BALL WEIGHER AND PACKER You 1 minute ago (12:27 PM) Thank you. This is a normal value. PRATIBHA Louis, RN, BA Images from the original note were not included. Evonne GAMBOA BSN, RN, BA Scanned in medical records from [facility] for review documented in this encounter [facility] 02-09-2023 Miscellaneous Notes Images from the original note were not included. Maria Del Carmen Borges APRN.ZULMA You 2 minutes ago (10:23 AM) Reviewed. PRATIBHA Louis, RN, BA Scanneed in medical records from [facility] for review documented in this encounter [facility] 01-19-2023 Miscellaneous Notes Images from the original note were not included. Maria Del Carmen Borges APRN.BOWLING BALL WEIGHER AND PACKER You 21 minutes ago (8:34 AM) I sent cyclobenzaprine (Flexeril) 5 mg at bedtime as needed PRATIBHA Mccullough, RN, BA documented in this encounter [facility] 01-12-2023 History of Presen t illness [...] Most likely receiving 65 units between procerus, mobile home set up person, frontalis, and temporalis muscles. Only receiving 90 [...] Tizanidine Methocarbamol Metaxalone Carisoprodol She does have Millersview prescribed for the neck pain. 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 Finger extensor 5/5. Finger flexor 5/5. Pronation [...] clonus of ankles. Coordination: Finger-to- nose-finger and kdnu-va-dvus intact bilaterally. No ataxia of arms. No [...] seeing the movement disorder clinic here at [facility] for an opinion about her [...] which included preparing to see the patient, ibkc-ac-wyhg patient care, completing clinical documentation, obtaining and/or reviewing separately obtained history, performing a medically appropriate examination, counseling and educating the patient/family/caregiver, and ordering medications, tests, or procedures. There is no problem list on file for this patient. Office Visit on 01/12/23 CBC FERRITIN BLD IRON + TIBC VITAMIN B12 BLOOD COMP METABOLIC PANEL CONSULT TO NEUROLOGY Maria Del Carmen Borges MSN, CARRIER ASSOCIATE, COOKEE-C 1. The nursing staff and medical assistants [...] your PCP/referring physician documented in this encounter [facility] 08-11-2022 Instructions Nayely Limon APRN.ZULMA - 08/11/2022 10:44 AM EDT Please send MRI result to us. Placed a consult for neuromuscular. Please call [phone] for appointments. I would suggest to bring your MRI (CD) to this appointment. Placed a consult for functional medicine. Please call [phone] for appointments. Follow up as needed documented in this encounter [facility] 08-11-2022 History of Presen t illness Narrative Images from the original note were not included. Rheumatology FOLLOW UP VISIT Date of Service: 08/11/2022 Patient: Brittanie Garcia Medical Record: [id number] Primary Care Physician: Filiberto Ying MD Last Rheumatology visit: 07/28/2022 (with Nayely Limon) I have communicated my name and active licensure. The patient's identity and physical location were verified at the time of this visit. 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 Started Seeing pain management since April for headache and neck pain. She has Millersview takes once a week. Hx of restless [...] Clinical Fibromyalgia Diagnostic Criteria questionnaire Questionnaire scores: Devens sleepiness scale: 15 (Normal < 10) MDQ (mood disorder questionnaire): 6 (Normal < 7) PHQ (patient health questionnaire): depression 10 (Normal < 5), anxiety 9 (Normal < 5) Fibromyalgia evaluation: Wide spread pain scale (WPI) 7, symptom severity (SS) 9 The patient meets the 2016 ACR ([place] [employer]) revised criteria for fibromyalgia [...] an optimal response to treatment. Nayely Limon APRN.BOWLING BALL WEIGHER AND PACKER Return if symptoms worsen or fail to [...] Time: 8:44 AM documented in this encounter [facility] 07-28-2022 Instructions Nayely Limon APRN.CNP - 07/28/2022 1:58 PM EST Obtain lab and XR today Follow up in 10-14 days documented in this encounter [facility] 07-28-2022 History of Presen t illness Narrative Images from the original note were not included. Rheumatology CONSULTATION Date of Service: 07/28/2022 Patient: Brittanie Garcia Medical Record: [id number] Primary Care Physician: Filiberto Ying MD, MD Last Rheumatology visit: 07/28/2022 (with Nayely Limon) Referring Provider: Kenna Sheehan [address] [place] [address] Brittanie Garcia is here today at request of Kenna Sheehan PA-C specifically for consultation of my opinion in regards to the chief complaint listed below. 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 Started Seeing pain management since April for headache and neck pain. She has Millersview takes once a week. Hx of restless [...] Take 1 mg by mouth once daily. Vzdyxdvm-Vs-Rtb-Fe-FA (P-D PLUS) Tab Take 1 tablet by [...] - XR CHEST 2V FRONTAL/LAT Nayely Limon APRN.BOWLING BALL WEIGHER AND PACKER Return in about 10 days (around 08/07/2022). I spent a total of 75 minutes on the date of the service which included preparing to see the patient, mfxc-yo-hzes patient care, completing clinical documentation, obtaining and/or reviewing separately obtained history, performing a medically appropriate examination, counseling and educating the patient/family/caregiver, and ordering medications, tests, or procedures. Medical Decision Making: Problems: Low: Stable chronic illness Data: Unique test(s) ordered: 3+ Assessment requiring an independent historian(s) Risk: Moderate: Moderate risk from testing/treatment Medical Decision Making Level: 4 - Moderate Somjita Braxton, CARRIER ASSOCIATE.BOWLING BALL WEIGHER AND PACKER Rheumatology Date: July 26, 2022 Time: 2:07 PM documented in this encounter [facility] 07-06-2022 Note CONSULTATION CONSULTATION DATE: 07/06/2022 [...] no difference. She was also started on Millersview 5/325 daily p.r.n., which she says is helpful. We obtained a cervical x-ray back in January, which shows very minimal pathology between C2 and C3 discs. At this time, procedures are not indicated. Medications includes Mill[place]view 5/325 daily, baclofen 10 mg b.i.d., Ambien [...] time, our clinic will just maintain her Millersview 5/325 daily p.r.n. She will continue for treatments with [facility]. I did recommend, however, to continue with self massage and to trial home cervical traction. We will see the patient in three months' time to maintain her medications and patient is in agreement. [facility] 04-06-2022 Note CONSULTATION PAIN MANAGEMENT CONSULTATION [...] stated that today she has seen an stock blender due to having lock jaw episodes. 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 She describes her headaches [...] as she agrees to this plan. [facility] 03-02-2022 Note CONSULTATION CONSULTATION DATE: 03/02/2022 [...] Activities such as pushing, pulling, lying down, food products tester hours and housework aggravate her pain. The [...] and all questions are answered today. [facility] 02-16-2022 Note CONSULTATION CONSULTATION DATE: 02/16/2022 HISTORY OF PRESENT ILLNESS: This is a 37-year-old female who is referred to our practice as a new patient by Dr. Ryamond for chronic neck pain. The patient currently [...] worsened at that time. 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 [facility] Chief complaint Narrative - Reported BRITTANIE [...] is no interventional necessity at this time [facility] 250 DO Work Phone: Chief complaint Narrative [...] has no rebound tachycardia.Recommendations, obtain Marcio of [employer] monitoring, tilt table test, refer to either EP or syncope clinic, I can follow-up on a as needed basis, as there is no interventional necessity at this time [facility] Work Phone: Chief complaint Narrative - Reported [...] Notably she has no rebound tachycardia.Recommendations, obtain [employer] monitoring, tilt table test, refer to either EP or syncope clinic, I can follow-up on a as needed basis, as there is no interventional necessity at this time [facility] 250 DO Work Phone: Chief complaint Narrative [...] has no rebound tachycardia.Recommendations, obtain Marcio of [employer] monitoring, tilt table test, refer to either EP or syncope clinic, I can follow-up on a as needed basis, as there is no interventional necessity at this time [facility] Work Phone: Evaluation note No assessment inform ation available [facility] Work Phone: Evaluation note Diagnosis Neck pain, chronic Cervicalgia [facility] Neck pain, chronic- Primary Cervicalgia [facility] Diagnosis Neck pain, chronic- Primary Cervicalgia Fibromyalgia Mylagia and myositis, unspecified [facility] Diagnosis Cervical dystonia- Primary Spasmodic torticollis Neck tightness Unspecified musculoskeletal disorders and symptoms referable to neck RLS (restless legs syndrome) Restless legs syndrome (RLS) [facility] Diagnosis Onset Date Resolution Status Left breast mass acute [facility] Work Phone: Evaluation note* Diagnosis Cervical dystonia- Primary Spasmodic torticollis [facility] Diagnosis Chronic migraine without aura, with intractable migraine, so stated, with status migrainosus- Primary Neck pain Cervicalgia RLS (restless legs syndrome) Restless legs syndrome (RLS) [facility] Diagnosis Chronic migraine without aura, with intractable migraine, so stated, with status migrainosus- Primary Neck pain Cervicalgia [facility] Diagnosis Chronic migraine without aura, with intractable migraine, so stated, with status migrainosus- Primary Neck pain Cervicalgia [facility] Additional Instructions DISCHARGE INSTRUCTIONS FOR [...] directed for pain unless a prescription was provided.[facility] Work Phone: [facility] ([facility] Diagnostic Procedure Only (Routine) - Closed Specialty Diagnoses / Procedures Referred By Contac t Referred To Contact XR IMAGING Diagnoses Neck pain, chronic Procedures XR CERV OTHER 4V AP/LAT/OBL RADEX SPINE CERVICAL 4 OR 5 VIEWS Nayely Limon APRN.CNP [address] [place] [address] Xr Imaging Referral ID Status Reason Start Date Expiration Date V isits Requested Visits Authorized [id number] Closed Auto-Generate d Referral 07/28/2022 08/27/2023 1 1 [facility] for referral (narrative)* Diagnostic Procedure Only (Routine) - Closed Specialty Diagnoses / Procedures Referred By Contac t Referred To Contact XR IMAGING Diagnoses Neck pain, chronic Procedures XR CERV OTHER 4V AP/LAT/OBL RADEX SPINE CERVICAL 4 OR 5 VIEWS Nayely Limon APRN.[employer] [address] [place] [address] Xr Imaging Referral ID Status Reason Start Date Expiration Date V isits Requested Visits Authorized [id number] Closed Auto-Generate d Referral 07/28/2022 08/27/2023 1 1 [facility] for visit Narrative* Diagnostic Procedure Only (Routine) - Closed Specialty Diagnoses / Procedures Referred By Contac t Referred To Contact XR IMAGING Diagnoses Neck pain, chronic Procedures XR CERV OTHER 4V AP/LAT/OBL RADEX SPINE CERVICAL 4 OR 5 VIEWS Nayely Limon APRN.[employer] [address] [place] [phone] Xr Imaging Referral ID Status Reason Start Date Expiration Date V isits Requested Visits Authorized [id number] Closed Auto-Generate d Referral 07/28/2022 08/27/2023 1 1 [facility] Chief Complaint and Reason for Visit [...] pain, chronic Procedures CONSULT TO NEUROLOGY OFFICE/OUTPATIENT [facility] 60-74 MINUTES Nayely Limon APRN.[employer] [address] [place] [address] Referral ID Status Reason Start Date Expiration Date Visits Requested Visits Authorized [id number] Authorized PCP Requested Referral 08/11/2022 08/11/2023 1 1 Specialty Diagnoses / Procedures Referred By Contac t Referred To Contact Diagnoses Fibromyalgia Procedures CONSULT TO FUNCTIONAL MEDICINE OFFICE/OUTPATIENT [facility] 60-74 MINUTES Nayely Limon APRN.[employer] [address] [place] [phone] Referral ID Status Reason Start Date Expiration Date Visits Requested Visits Authorized [id number] Authorized PCP Requested Referral 08/11/2022 08/11/2023 1 1 Specialty Diagnoses / Procedures Referred By Contac t Referred To Contact Neurology Diagnoses Cervical dystonia Neck tightness Procedures CONSULT TO NEUROLOGY OFFICE/OUTPATIENT [facility] 60-74 MINUTES Maria Del Carmen Borges, CARRIER ASSOCIATE.[employer] [id number] [place] [address] Referral ID Status Reason Start Date Expiration Date Visits Requested Visits Authorized [id number] Pending Review PCP Requested Referral 01/12/2023 01/12/2024 1 1 Specialty Diagnoses / Procedures Referred By Contac t Referred To Contact Neurology Diagnoses Cervical dystonia Procedures CONSULT TO NEUROLOGY OFFICE/OUTPATIENT [facility] 60 MINUTES Dexter Borgesle, CARRIER ASSOCIATE.[employer] [id number] [place] [address] Referral ID Status Reason Start Date Expiration Date Visits Requested Visits Authorized [id number] Authorized PCP Requested Referral 09/04/2023 09/03/2024 1 [...] Active Kenna Sheehan PA-C Attending Provider Active [employer] Compounder Relationship Specialty Start Date End Date Filiberto Ying MD PCP - General Family Medicine 06/05/12 Kenna Sheehan PA-C [address] [place] [id number] Referring Neurology 07/19/22 Liquid Flavor Compounder Relationship Specialty Start Date End Date Filiberto Ying MD PCP - General Family Medicine 06/05/12 Kenna Sheehan PA-C [address] [address] Referring Neurology 07/19/22 Liquid Flavor Compounder Relationship Specialty Start Date End Date Filiberto Ying MD PCP - General Family Medicine 06/05/12 Kenna Sheehan PA-C [address] [address] Referring Neurology 07/19/22 Liquid Flavor Compounder Relationship Specialty Start Date End Date Filiberto Ying MD PCP - General Family Medicine 06/05/12 Kenna Sheehan PA-C [address] [place] [phone] Referring Neurology 07/19/22 Liquid Flavor Compounder Relationship Specialty Start Date End Date Filiberto Ying MD PCP - General Family Medicine 06/05/12 Kenna Sheehan PA-C [address] [address] Referring Neurology 07/19/22 Liquid Flavor Compounder Relationship Specialty Start Date End Date Filiberto Ying MD PCP - General Family Medicine 06/05/12 Kenna Sheehan PA-C [address] [address] Referring Neurology 07/19/22 Liquid Flavor Compounder Relationship Specialty Start Date End Date Filiberto Ying MD PCP - General Family Medicine 06/05/12 Kenna Sheehan PA-C [address] [place] [phone] Referring Neurology 07/19/22 Team Status: Inactive Member Role Status Dates Filiberto Ying MD Primary Care Provider Active Maria Del Carmen Borges APRN [facility] Attending Provider Active Liquid Flavor Compounder Relationship Specialty Start Date End Date Filiberto Ying MD PCP - General Family Medicine 06/05/12 Kenna Sheehan PA-C [address] [place] [address] Referring Neurology 07/19/22 Liquid Flavor Compounder Relationship Specialty Start Date End Date Filiberto Ying MD PCP - General Family Medicine 06/05/12 Kenna Sheehan PA-C [address] [place] [address] Referring Neurology 07/19/22 Liquid Flavor Compounder Relationship Specialty Start Date End Date Filiberto Ying MD PCP - General Family Medicine 06/05/12 Kenna Sheehan PA-C [address] [place] [phone] Referring Neurology 07/19/22 Liquid Flavor Compounder Relationship Specialty Start Date End Date Filiberto Ying MD PCP - General Family Medicine 06/05/12 Kenna Sheehan PA-C [address] [place] [phone] Referring Neurology 07/19/22 Liquid Flavor Compounder Relationship Specialty Start Date End Date Filiberto Ying MD PCP - General Family Medicine 06/05/12 Kenna Sheehan PA-C [address] [place] [phone] Referring Neurology 07/19/22 Liquid Flavor Compounder Relationship Specialty Start Date End Date Filiberto Ying MD PCP - General Family Medicine 06/05/12 Kenna Sheehan PA-C [address] [place] [address] Referring Neurology 07/19/22 Liquid Flavor Compounder Relationship Specialty Start Date End Date Filiberto Ying MD PCP - General Family Medicine 06/05/12 Kenna Sheehan PA-C [address] [place] [address] Referring Neurology 07/19/22 Team Status: Inactive Member Role Status Dates Filiberto Ying MD Primary Care Provider Active Start: January 28, 2024 End: January 28, 2024 Dano Pyle DO Attending Provider Active Start: January 28, 2024 End: January 28, 2024 Liquid Flavor Compounder Relationship Specialty Start Date End Date Filiberto Ying MD PCP - General Family Medicine 06/05/12 Kenna Sheehan PA-C [address] [place] [phone] Referring Neurology 07/19/22 Goals (unrecognized section and [...] or prosecute any alcohol or drug abuse patient.[facility] the event this information is protected by the Federal Confidentiality of Alcohol and Drug Abuse Patient Records regulations: The Federal rules restrict any use of the information to criminally investigate or prosecute any alcohol or drug abuse patient.[facility] the event this information is protected by the Federal Confidentiality of Alcohol and Drug Abuse Patient Records regulations: The Federal rules restrict any use of the information to criminally investigate or prosecute any alcohol or drug abuse patient.[facility] the event this information is protected by the Federal Confidentiality of Alcohol and Drug Abuse Patient Records regulations: The Federal rules restrict any use of the information to criminally investigate or prosecute any alcohol or drug abuse patient.[facility] the event this information is protected by the Federal Confidentiality of Alcohol and Drug Abuse Patient Records regulations: The Federal rules restrict any use of the information to criminally investigate or prosecute any alcohol or drug abuse patient.[facility] the event this information is protected by the Federal Confidentiality of Alcohol and Drug Abuse Patient Records regulations: The Federal rules restrict any use of the information to criminally investigate or prosecute any alcohol or drug abuse patient.[facility] the event this information is protected by the Federal Confidentiality of Alcohol and Drug Abuse Patient Records regulations: The Federal rules restrict any use of the information to criminally investigate or prosecute any alcohol or drug abuse patient.[facility] the event this information is protected by the Federal Confidentiality of Alcohol and Drug Abuse Patient Records regulations: The Federal rules restrict any use of the information to criminally investigate or prosecute any alcohol or drug abuse patient.[facility] the event this information is protected by the Federal Confidentiality of Alcohol and Drug Abuse Patient Records regulations: The Federal rules restrict any use of the information to criminally investigate or prosecute any alcohol or drug abuse patient.[facility] the event this information is protected by the Federal Confidentiality of Alcohol and Drug Abuse Patient Records regulations: The Federal rules restrict any use of the information to criminally investigate or prosecute any alcohol or drug abuse patient.[facility] the event this information is protected by the Federal Confidentiality of Alcohol and Drug Abuse Patient Records regulations: The Federal rules restrict any use of the information to criminally investigate or prosecute any alcohol or drug abuse patient.[facility] HospitalIn the event this information is protected by the Federal Confidentiality of Alcohol and Drug Abuse Patient Records regulations: The Federal rules restrict any use of the information to criminally investigate or prosecute any alcohol or drug abuse patient.[facility] HospitalIn the event this information is protected by the Federal Confidentiality of Alcohol and Drug Abuse Patient Records regulations: The Federal rules restrict any use of the information to criminally investigate or prosecute any alcohol or drug abuse patient.[facility] HospitalIn the event this information is protected by the Federal Confidentiality of Alcohol and Drug Abuse Patient Records regulations: The Federal rules restrict any use of the information to criminally investigate or prosecute any alcohol or drug abuse patient.[facility] HospitalIn the event this information is protected by the Federal Confidentiality of Alcohol and Drug Abuse Patient Records regulations: The Federal rules restrict any use of the information to criminally investigate or prosecute any alcohol or drug abuse patient.[facility] HospitalIn the event this information is protected by the Federal Confidentiality of Alcohol and Drug Abuse Patient Records regulations: The Federal rules restrict any use of the information to criminally investigate or prosecute any alcohol or drug abuse patient.[facility] HospitalIn the event this information is protected by the Federal Confidentiality of Alcohol and Drug Abuse Patient Records regulations: The Federal rules restrict any use of the information to criminally investigate or prosecute any alcohol or drug abuse patient.[facility] HospitalIn the event this information is protected by the Federal Confidentiality of Alcohol and Drug Abuse Patient Records regulations: The Federal rules restrict any use of the information to criminally investigate or prosecute any alcohol or drug abuse patient.[facility] HospitalIn the event this information is protected by the Federal Confidentiality of Alcohol and Drug Abuse Patient Records regulations: The Federal rules restrict any use of the information to criminally investigate or prosecute any alcohol or drug abuse patient.[facility] HospitalIn the event this information is protected by the Federal Confidentiality of Alcohol and Drug Abuse Patient Records regulations: The Federal rules restrict any use of the information to criminally investigate or prosecute any alcohol or drug abuse patient.[facility] HospitalIn the event this information is protected by the Federal Confidentiality of Alcohol and Drug Abuse Patient Records regulations: The Federal rules restrict any use of the information to criminally investigate or prosecute any alcohol or drug abuse patient.[facility] HospitalIn the event this information is protected by the Federal Confidentiality of Alcohol and Drug Abuse Patient Records regulations: The Federal rules restrict any use of the information to criminally investigate or prosecute any alcohol or drug abuse patient.[facility] Reason for Visit (unrecogniz ed section and content) Reason Comments Neck Pain Reason Comments Neck Pain Follow up Reason Comments New Patient Reason Comments Results [facility] Reason Comments Results [facility] Reason Comments Follow Up Reason Onset Date Comments Refill Request 09/15/2023 Reason Comments Request Outside Medical Records Reason Comments Cervical Dystonia Specialty Diagnoses / Procedures Referred By Contac t Referred To Contact Neurology Diagnoses Cervical dystonia Procedures CONSULT TO NEUROLOGY OFFICE/OUTPATIENT [facility] 60 MINUTES BernardaMaria Del Carmen, LONNY.[employer]ER [id number] [place] [address] Referral ID Status Reason Start Date Expiration Date V isits Requested Visits Authorized [id number] Closed PCP Requested Referral 09/04/2023 09/03/2024 1 1 Reason Onset Date Comments Refill Request 10/18/2023 Reason Comments Insurance Authorization Botox Reason Comments Botox Injection Specialty Diagnoses / Procedures Referred By Contac t Referred To Contact ADULT NEUROLOGY Diagnoses Chronic migraine without aura, intractable, with status migrainosus Procedures BOTULINUM TOXIN A PER 1 UNIT CHEMODERVATE FACIAL/TRIGEM/CERV MUSC MIGRAINE Harman Sullivan MD [address] [place] [address] Conchis [place] [address] [place] [address] Referral ID Status Reason Start Date Expiration Date V isits Requested Visits Authorized [id number] Authorized 10/11/2023 10/14/2024 99 99 Reason Comments Appointment INFORMATION SOURCE (unrecogn ized section and content) DATE CREATED AUTHOR 09/07/2022 [facility] DATE CREATED AUTHOR AUTHOR'S ORGANIZ ATION 11/15/2022 [facility] DATE CREATED AUTHOR AUTHOR'S ORGANIZ ATION 01/01/2023 [facility] DATE CREATED AUTHOR AUTHOR'S ORGANIZ ATION 02/04/2023 [facility] DATE CREATED AUTHOR AUTHOR'S ORGANIZ ATION 07/30/2023 [facility] EP[facility] DATE CREATED AUTHOR AUTHOR'S ORGANIZ ATION 01/30/2024 [facility] DATE CREATED AUTHOR AUTHOR'S ORGANIZ ATION 02/01/2024 [facility] FOR RECORDS PERTAINING TO PATIENTS WHO [...] BE BASED ON THE PRIMARY CLINICAL RECORDS. [facility] [employer] [facility] provides no warranty or guarantee of the accuracy or completeness of information in this document.
== END 2024-02-21 08:02 | disposition home or self-care (01) ==
LOC: PM 08:01
PROVIDERS: PCP Family Medicine; Visit Provider Nurse Practitioner
DX: M50.10 Cervical disc disorder with radiculopathy, unspecified cervical region (principal); M47.22 Other spondylosis with radiculopathy, cervical region; G43.909 Migraine, unspecified, not intractable, without status migrainosus; M79.18 Myalgia, other site; Z79.899 Other long term (current) drug therapy
CPT/HCPCS: G0463

== ENCOUNTER 2024-04-16 06:48 | Outpatient (OUT) | payer OTHER, SELFPAY ==
--- OUTSIDE RECORDS SUMMARY | 2024-04-14 06:29 | XMS_ITS | CCD ---
Author Organization [facility] CliniSynh Care Team Providers Care Inventory Control Analyst Name Role Phone MD Filiberto Ying Primary Care Provider [phone] PURVI Sheehan Attending Provider [phone]EP[address] ., DR DE LOS SANTOS Primary Care Unavailable LAKSHMIPATHY ., NARENDCLAUDIO Admitting Glo vailable LAKSHMIPATHY ., KATHLEEN Attending [...] COLLAZO ., DR CHARISMA Mckoy Attending Unavailable HoyFiliberto Unavailable Unavailable Unavailable MD Filiberto Ying Primary Care Provider DO Dano Mcdaniel Attending Provider [phone] DO Roseanne Castellanos Attending Provider MD Romero [...] Referring Unava ilable Emanuel, Dr. Saeed Stahl Attending Unava ilable Stepan, Dr. Filiberto Fuller Primary Care Unavail able Emanuel, Dr. Saeed Sathl Referring Unava ilable Emanuel, Dr. Saeed Stahl Referring Unava ilable Stepna, Dr. Filiberto Fuller Primary Care Unavail able Emanuel, Dr. Saeed Stahl Attending Unava ilable Soraya Cage Attending Unavailable Soraya Cage Referring Unavailable Stepan, [...] Provider LONNY Borges Attending Provider DO Dano Mcdaniel Attending Provider [phone] Filiberto Ying Primary Care Provider [phone] EDENILSON, DANO H Attending Unavailable HOY, FILIBERTO M Referring Unavailable VALERIO SANZ Attending Unavailable Filiberto Ying MD Primary Care Provider [phone] MD Filiberto Ying Primary Care Provider [phone] DO Dano Mcdaniel Attending Provider [phone] Maria Del Carmen Borges Attending Unavailable Maria Del Carmen Borges Admitting Unavailable Hoy, Filiberto M Primary Care Unavailable Itzkowitz, Dano Admitting Unavailable Itzkowitz, Dano Attending Unavailable Hoy, Filiberto M Primary Care Unavailable Itzkowitz, Dano Attending Unavailable Itzkowitz, Dano Admitting Unavailable Hoy, Filiberto M Primary Care Unavailable Itzkowitz, Dano Attending Unavailable Itzkowitz, Dano Admitting Unavailable Hoy, Filiberto M Primary Care Unavailable Itzkowandatz, Dano Attending Unavailable Itzkowitz, Dano Admitting Unavailable Hoy, Filiberto M Primary Care Unavailable HARMAN SULLIVAN Attending Unavailable JONY, MARIA DEL CARMEN Referring Unavailable HOY, FILIBERTO M Primary Care Unavailable WEISSWANG, HARMAN Referring Unavailable WEISSHARMAN PIÑA Attending Unavailable HOY, FILIBERTO M Primary Care Unavailable WEISSHARMAN PIÑA Attending Unavailable HOY, FILIBERTO M Primary Care Unavailable WEISSWANG, HARMAN Referring Unavailable MARIA DEL CARMEN BORGES Attending Unavailable HOY, FILIBERTO M Primary Care Unavailable Reuben Bauman MD Attending Unavailable Allergies Allergy Classification Reported Allergen(s) Allergy Type Date of Onset Reaction(s) Facility (20 sources) Caffeine; Translations: [Caffeine] Drug Allergy 3 Vomiting [facility] (20 sources) DHE; Translations: [Dhe] Allergy to substance 3 Shortness of Breath [facility] (20 sources) Adhesive agent; Translations: [ADHESIVE] Propensity to adverse reactions to drug 3 Other: See Asa, Yamilet [facility] (15 sources) Adhesive Tape Allergy to substance (finding) 3 [facility] (9 sources) prasterone; Translations: [DHEA CAPS] Drug Allergy -[facility] [place] [facility] DO Work Phone: (15 sources) Metoprolol; Translations: [METOPROLOL] Drug Allergy 3 Swelling [facility] (2 sources) Metoclopramide Drug Allergy 3 Worsens restless leg [facility] Medications Current Medications Medication Drug Class(es) [...] tablet by mouth every eight hours Hydrocodone-Acetaminophen ([place]) 5-325 mg tablet Discontinued 1 TAB PO [...] on above: Take 1 tablet by klever three times daily. diclofenac sodium 0.01 mg/mg [...] 11:00pm Start: 10-14-2019 take 1 tablet by kleevr th once daily L Norgest/E.Estradiol-E.Estrad Active 1 [...] 37.5 mg by mout h once daily. Hqvrwcje-Wj-Ktp-Fe-FA (P-D CARTER PLUS) Tab (2 sources) End: 08-02-19 23 take 1 tablet by mouth once daily Jrjfshjc-Df-Dgz-Fe- FA (P-D PLUS) Tab Take 1 tablet by mouth once daily. 0 08/01/2022 Discontinued (Course of therapy completed) take 1 tablet by mouth once ute y Ztjhkkhu-Kt-Grw-Fe-FA (P-D CARTER PLUS) Tab Take 1 tablet [...] Test Name Value Interpretation Reference Range Facility CNOVon 01-30-2024 CNOV Office Visit ([facility] ) BRITTANIE GARCIA ([id number]) 1985 F Date Time Provider Department 01/30/24 2:00 PM HARMAN SULLIVAN [facility] During your visit today, we recorded the following information about you: Pulse Blood pressure Weight Height 91/minute 115/76 70.5 kg 1.575 m Harman Sullivan MD 01/30/2024 2:36 PM Signed BOTOX PREEMPT PROTOCOL Total headache days per month: Slight CAOSTA daily, around once a month gets a [...] brought in by patient? No Lot #: [id number] Exp: 03/2026 Dilution: 5 units/0.1 ml (100 [...] Optional follow pain # units L R Major General 10 units divided in 2 sites XXXXXXX [...] Harman Sullivan MD Referring Provider: HARMAN SULLIVAN [[id number]] Allergies As of Date: 01/30/2024 Noted Allergy [...] for Encounter Date Provider Department Center 01/30/2024 [id number], TED [facility] Encounter Status:Closed by AHRMAN SULLIVAN on 01/30/24 Normal [facility] US breast RT limitedon 01-27 US breast RT limited [facility] [place] [address] Ultrasound Report Signed Patient: Brittanie Garcia MR#: [id number] : 1985 Acct:[id number] Age/Sex: 39 / F ADM Date: 01/28/24 Loc: [facility] Room: Type: [facility] Attending Dr: Dano Mcdaniel DO Ordering Provider: Dano Mcdaniel DO Date of Service: 01/28/24 US/US breast RT limited: upper outer and lower inner quadrant masses Copies to: Dano Mcdaniel DO LIMITED RIGHT BREAST ULTRASOUND CLINICAL DATA: [...] Binta Elaine M.D.01/28/2024 8:30 AM Dictation Location: [facility] Tech: Alayna Choudhary Transcribed By: JADEN 01/28/24829 Dictated By: Binta Elaine MD 01/28/24811 Signed By: 01/28/24829 Normal [facility] CNOVon 10-31-2023 CNOV Office Visit ([facility] ) BRITTANIE GARCIA ([id number]) 1985 F Date Time Provider Department 10/31/23 10:30 AM HARMAN SULLIVAN [facility] During your visit today, we recorded [...] BOTOX brought in by patient? No Lot #:[id number] Exp: 10/2025 Dilution: 5 units/0.1 ml (100 [...] Optional follow pain # units L R Major General 10 units divided in 2 sites XXXXXXX [...] Harman Sullivan MD Referring Provider: HARMAN SULLIVAN [[id number]] Allergies As of Date: 10/31/2023 Noted Allergy [...] for Encounter Date Provider Department Center 10/31/2023 [id number], TED [facility] Encounter Status:Closed by HARMAN SULLIVAN on 10/31/23 [facility] Salima 10-31-2023 EVELINE Telephone ([facility]) BRITTANIE GARCIA ([id number]) 1985 F Date Time Provider Department 10/31/23 HARMAN SULLIVAN [facility] During your visit today, we recorded [...] Status:Closed by ESVIN VELAZQUEZ on 12/06/23 Normal [facility] Telephone ([facility]) GARCIA,KEISHA ([id number]) 1985 F Date Time Provider Department 10/31/23 HARMAN SULLIVAN [facility] During your visit today, we recorded the following information about you: Esvin Velazquez 10/31/2023 11:03 AM Signed Patient brought in [facility] paperwork for Dr. Sullivan to fill out. [...] Encounter Status:Closed by ESVIN VELAZQUEZ on 12/03/23 Normal [facility] Salima 10-11-2023 CNPN Telephone ([facility]) BRITTANIE GARCIA ([id number]) 1985 F Date Time Provider Department 10/11/23 HARMAN SULLIVAN [facility] During your visit today, we recorded [...] 30 slot to get her Botox in [place]. Per Dr. Sullivan, she does not need to then also keep her November 05 appt. Manolo Luther MA 10/22/2023 8:14 AM Signed Prior Auth Determination: Approved Medication/ Treatment: BOTOX Authorization Information/ Time Range: Botox, J0585 Approval Date Range: 10/16/2023 to 10/14/2024 Approval #: [id number] Dose AND Frequency: 200 units Q 12 [...] Encounter Status:Closed by PALLAVI DURON on 10/19/23 [facility] CNOVon 09-21-2023 CNOV Office Visit ([facility] ) BRITTANIE GARCIA ([id number]) 1985 F Date Time Provider Department 09/21/23 8:30 AM HARMAN SULLIVAN [facility] During your visit today, we recorded [...] Alcohol use: No Drug use: No Objective 09/21/23811 BP: 109/74 BP Site: Right Arm BP [...] Actual fi (more content not included)... Normal [facility] 09-21-2023 [facility] Telephone ([facility]) BRITTANIE GARCIA ([id number]) 1985 F Date Time Provider Department 09/21/23 HARMAN SULLIVAN [facility] During your visit today, we recorded the following information about you: Manolo Luther MA 09/21/2023 8:46 AM Signed Requested image transfer from [facility] for most recent head/ neck imaging. Manolo Luther MA 09/21/2023 2:42 PM Signed Faxed record request form to [facility] [phone]. Manolo Luther MA 10/03/2023 3:08 PM Signed RECORDS RECEIVED via FAX: From: [facility] Placed at desk/tray for [...] Reason for Visit: Request Outside Medical Records [[id number]] Prescriptions as of 10/03/2023 - baclofen 10 [...] Encounter Status:Closed by MANOLO LUTHER on 09/21/23 [facility] 05-15-2023 L ------- Specimen: [id number] Received: 05/15/23 Status: MG Clemente Num: [id number] Spec Type: Surgical Subm Dr: Dano Mcdaniel DO Tissues: A BREAST CORE NO CALCS [...] Location Account Attending Physician Brittanie Garcia 38/F [place] [id number] Dano Mcdaniel, SPEC NUM: [id number] RECD: 05/15/23 STATUS: MG CLEMENTE NUM: [id number] TACOS: 05/15/[address]: Dano Mcdaniel, ENTERED: 05/15/[address] [facility] [address]: SPEC TYPE: Surgical DEPT: S ORDERED: [...] show some diminished staining of myoepithelial Specimen: [id number] Received: 05/15/23 Status: MG Izquierdojustice Num: [id number] Spec Type: Surgical Subm Dr: Dano Mcdaniel DO Tissues: A BREAST CORE NO CALCS [...] Gross/Micro L4/4, E CADHERIN Patient: Brittanie Garcia [id number] (Continued) Specimen: [id number] Received: 05/15/23 (Continued) Pathological Diagnosis (Continued) Signed (signature on file) Dany Fonseca MD 05/17/23 1723 Specimen: [id number] Received: 05/15/23 Status: MG Clemente Num: [id number] Spec Type: Surgical Subm Dr: Dano Mcdaniel, Tissues: A BREAST CORE NO CALCS (LT [...] Gross/Micro L4/4, E CADHERIN Patient: Brittanie Garcia [id number] (Continued) Specimen: [id number] Received: 05/15/23 (Continued) Pathological Diagnosis (Continued) cells, and otherwise without definitive features of lobular intraepithelial neoplasm identifiable -Also no evidence of malignancy or atypical epithelial hyperplasia identified C. Left ni (more content not included)... Normal [facility] Basic Metabolic Panelon 04-20 GFR/1.73 sq M.predicted MDRD (S/P/Bld) [Vol rate/Area] mL/min/{1.73_m2} Normal [facility] Comment on above: Performed By: #### B MP #### [address] Calcium [Mass/volume] in Ser um or PlasmaOrdered By: Dano Mcdaniel on 05-01-2023 Calcium [Mass/Vol] 9.7 mg/dL Normal 8.6-10.3 [facility] Comment on above: Result Comment: PERF ORMED BY: [place] [address] PATHOLOGIST LIDAR ANALYST ROSSI POND M.D. Performed By: #### B MP #### [place] [address] [place] Carbon dioxide, total [Moles /volume] in Serum or PlasmaOrdered By: Dano Mcdaniel on 05-01-2023 CO2 [Moles/Vol] 28.9 mmol/L Normal 21.0-31.0 [facility] Comment on above: Performed By: #### B MP #### [place] [address] [place] Chloride [Moles/volume] in S leticia or PlasmaOrdered By: Dano Mcdaniel on 05-01-2023 Chloride [Moles/Vol] 105 mmol/L Normal 98-107 [facility] Comment on above: Performed By: #### B MP #### [place] [address] [place] Creatinine [Mass/volume] in Serum or PlasmaOrdered By: Dano Mcdaniel on 05-01-2023 Creatinine [Mass/Vol] 0.75 mg/dL Normal 0.60-1.20 [facility] Comment on above: Performed By: #### B MP #### [place] [address] [place] Glucose [Mass/volume] in Ser um or PlasmaOrdered By: Dano Mcdaniel on 05-01-2023 Glucose [Mass/Vol] 84 mg/dL Normal 70-100 [facility] Comment on above: ADA recommended refe rence rangeRandom Glucose Reference Range is dependent on time and content of last meal. Glucose of more than 200 mg/dL in a nonstressed, ambulatory subject supports the diagnosis of Diabetes Mellitus. Result Comment: [place] om Glucose Reference Range is dependent on time and content of last meal. Glucose of more than 200 mg/dL in a nonstressed, ambulatory subject supports the diagnosis of Diabetes Mellitus. ADA recommended reference range Performed By: #### B MP #### [address] No Panel InformationOrdered By: Dano Mcdaniel on 05-01-2023 Estimated GFR (CKD-EPI) > 60.0 mL/Min [facility] Creatinine Clearance (Chem N/A [facility] Potassium [Moles/volume] in Serum or PlasmaOrdered By: Dano Mcdaniel on 05-01-2023 Potassium [Moles/Vol] 4.3 mmol/L Normal 3.5-5.1 [facility] Comment on above: Performed By: #### B MP #### [address] Serum or plasma anion gap de terminationOrdered By: Dano Mcdaniel on 05-01-2023 Anion gap [Moles/Vol] 9.4 mmol/L Normal 6.0-15.0 [facility] Comment on above: Performed By: #### B MP #### [address] Sodium [Moles/volume] in Ser um or PlasmaOrdered By: Dano Mcdaniel on 05-01-2023 Sodium [Moles/Vol] 139 mmol/L Normal 136-145 [facility] Comment on above: Performed By: #### B MP #### [address] Urea nitrogen [Mass/volume] in Serum or PlasmaOrdered By: Dano Mcdaniel on 05-01-2023 Urea nitrogen [Mass/Vol] 14 mg/dL Normal 7-25 [facility] Comment on above: Performed By: #### B MP #### [address] SURGICAL PATHOLOGY REFERENCE LAB CONSULTon 04-11-2023 CASE REPORT Normal [facility] Comment on above: Order Comment: Speci men Type: FORMALIN-FIXED PARAFFIN-EMBEDDED TISSUE SPECIMENOrdering Facility: [facility] Address: [address] [place] [address] Result Comment: Surg [facility] Pathology Report Case: [id number] Authorizing Provider: Calvin Haynes MD Collected: 04/11/2023 10:31 AM [facility] Received: 04/11/2023 10:32 AM [facility] Pathologist: Estiven Wang MD Specimen: SLIDE(S), 12 SLIDES, [id number] Performed By: #### L [id number] ####[facility] LABCLIA [id number] [address] CLINICAL HISTORY CONSULT REQUESTED [facility] Comment on above: Order Comment: Speci men Type: FORMALIN-FIXED PARAFFIN-EMBEDDED TISSUE SPECIMENOrdering Facility: [facility] Address: [address] [place] [address] Performed By: #### L [id number] ####[id number] [address] DIAGNOSIS COMMENT Normal [facility] Comment on above: Order Comment: Speci men Type: FORMALIN-FIXED PARAFFIN-EMBEDDED TISSUE SPECIMENOrdering Facility: [facility] Address: [address] [place], [place] [address] [address] Result Comment: Many thanks for sending us [...] in consultation with Dr. Rogers, of the [facility] breast pathology department, who concurs. Performed By: #### L [id number] ####[facility] LABIA [id number] [address] FINAL DIAGNOSIS Normal [facility] Comment on above: Order Comment: Speci men Type: FORMALIN-FIXED PARAFFIN-EMBEDDED TISSUE SPECIMENOrdering Facility: [facility] Address: [address] [place], [place] [address] [address] Result Comment: Left breast, core biopsy - King spindle cell proliferation, (please see comment). Performed By: #### L [id number] ####[facility] LABCLIA [id number] [address] FINAL PERFORMING LAB Normal [facility] Comment on above: Order Comment: Speci men Type: FORMALIN-FIXED PARAFFIN-EMBEDDED TISSUE SPECIMENOrdering Facility: [facility] Address: [address] [place], [place] [address] [address] Result Comment: Diag nostic interpretation performed at [facility], [address] [address] CLIA# [id number] Manager Van: Oliverio Brito M.D. Performed By: #### L [id number] ####[facility] LABCLIA [id number] [address] 04-05-2023 L ------- Specimen: [id number] Received: 04/05/23 Status: MG Clemente Num: [id number] Spec Type: Surgical Subm Dr: Binta Elaine MD Tissues: A BREAST CORE NO CALCS (LT BREAST TISSUE) Procedures: S 100, HE/2, Gross/Micro L4, DESMIN, AE1-AE3, CD31, CD34, ER, Ki-67, SM ACTIN, IHC First AB, IHC Add AB/8, GATA3, BETA-CATENIN Age/ Patient Sex Location Account Attending Physician Brittanie Garcia 38/F ROMARIO [id number] Dano Mcdaniel DO SPEC NUM: [id number] RECD: 04/05/23 STATUS: MG IZQUIERDOJustice NUM: [id number] TACOS: 04/05/[address] [facility] [address]: Binta Elaine MD ENTERED: 04/05/[address] [facility] [address]: Dano Mcdaniel DO SPEC TYPE: Surgical DEPT: S ORDERED: S 100, HE/2, Gross/Micro L4, DESMIN, AE1-AE3, CD31, CD34, ER, Ki-67, SM ACTIN, IHC First AB, IHC Add AB/8, GATA3, BETA-CATENIN ORDERED: S 100, HE/2, Gross/Micro L4, DESMIN, AE1-AE3, CD31, CD34, ER, Ki-67, SM ACTIN, IHC First AB, IHC Add AB/8, IMMUNOHISTOCHEM, GATA3, BETA-CATENIN Supplemental Report Addendum 1 Entered: 04/16/23 [facility] Pathology Report ([id number]): Left Breast, core biopsy: - King spindle cell proliferation - See the [facility] report for details Addendum Signed (signature on file) Calvin Haynes MD 04/16/231535 Pathological Diagnosis Preliminary Pathology Diagnosis: Breast mass, left side, core biopsy: Specimen: [id number] Received: 04/05/231225 Status: MG Izquierdojustice Num: [id number] Spec Type: Surgical Subm Dr: Binta Elaine MD Tissues: A BREAST CORE NO CALCS (LT BREAST TISSUE) Procedures: S 100, HE/2, Gross/Micro L4, DESMIN, AE1-AE3, CD31, CD34, ER, Ki-67, SM ACTIN, IHC First AB, IHC Add AB/8, GATA3, BETA-CATENIN Patient: JoseBrittanie M [id number] (Continued) Specimen: [id number] Received: 04/05/23 (Continued) Pathological Diagnosis (Continued) Signed (signature on file) Calvin Haynes MD 04/10/23 1142 Specimen: [id number] Received: 04/05/23 Status: MG Clemente Num: [id number] Spec Type: Surgical Subm Dr: Binta Eliane MD Tissues: A BREAST CORE NO CALCS (LT BREAST TISSUE) Procedures: S 100, HE/2, Gross/Micro L4, DESMIN, AE1-AE3, CD31, CD34, ER, Ki-67, SM ACTIN, IHC First AB, IHC Add AB/8, GATA3, BETA-CATENIN Patient: JoseBrittanie M [id number] (Continued) Specimen: [id number] Received: 04/05/23 (Continued) Pathological Diagnosis (Continued) - [...] This case will be sent to the [facility] for consultation and second opinion and the [...] in formalin is 6.75 hours. CPT Codes 93413 [id number] (more content not included)... Normal [facility] US breast BI limitedon 04-05 US breast BI limited [facility] [place] [address] Ultrasound Report Signed Patient: Brittanie Garcia MR#: [id number] : 1985 Acct:[id number] Age/Sex: 38 / F ADM Date: 04/05/23 Loc: [facility] Room: Type: 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 At 11:00, 3 to 4 [...] Binta Elaine M.D.04/05/2023 5:45 PM Dictation Location: [facility] Tech: Marlee Sánchez Transcribed By: JADEN 04/05/23 1745 Dictated By: Binta Elaine MD 04/05/23 1127 Signed By: 04/05/23 1745 Normal [facility] US breast ndl core biopsy LT on 04-05-2023 US breast ndl core biopsy LT [facility] [place] [address] Mammography Report Signed with Addenda Patient: Brittanie Garcia MR#: [id number] : 1985 Acct:[id number] Age/Sex: 38 / F ADM Date: 04/05/23 Loc: [facility] Room: Type: [facility] Attending Dr: Dano Mcdaniel DO Copies to: MD Dano Saleh DO Ordering Provider: Dano Mcdaniel DO Date of Service: 04/05/23 US/US breast ndl core biopsy LT: N63.20 ([id number]) MM/MM post biopsy LT w/CAD: POST BIOPSY CLIP PLACEMENT ADDENDUM 1 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 It is therefore uncertain whether or not resection should be performed. If there is no further intervention, ultrasound follow-up in 6 months is suggested. Impression dictated by: Binta Elaine M.D.04/17/2023 7:37 AM Dictation Location: [place] [address] Addendum Dictated By: MD Binta Elaine Addendum [...] Binta Elaine M.D.04/05/2023 2:04 PM Dictation Location: [facility] Transcribed By: JADEN 04/05/23 1404 Dictated By: Binta Elaine MD 04/05/23 1134 Signed By: 04/05/23 1404 Normal [facility] Salima 02-19-2023 CNPN Telephone (NIQ) JOSEBRITTANIE ([id number]) 1985 F Date Time Provider Department 02/19/23 MARIA DEL CARMEN BORGES During your visit today, we recorded the following information about you: Myrtle Gonzalez 02/19/2023 12:09 PM Signed Scanned in medical records from [facility] for review Evonne Dillard RN 02/19/2023 12:20 PM Signed Evonne GAMBOA BSN, RN, BA Evonne Dillard RN 02/19/2023 12:29 PM Signed Maria Del Carmen Borges APRN.DRESSMAKER OR TAILOR You 1 minute ago (12:27 PM) Thank you. This is a normal value. PRATIBHA Louis, RN, BA Allergies As of Date: 02/19/2023 Noted Allergy Reaction ADHESIVE 07/28/2022 14 - Other: See Comments 2 - Rash CAFFEINE 06/13/2012 11 - Vomiting DHE 06/13/2012 12 - Shortness of Breath Date Reviewed: 01/12/2023 Reviewed by: Maria Del Carmen Borges APRN.DRESSMAKER OR TAILOR - Fully Assessed Reason for Visit: Results [95] Cmt: [facility] Prescriptions as of 02/19/2023 - cyclobenzaprine [...] Encounter Status:Closed by EVONNE DILLARD on 02/19/23 [facility] 02-09-2023 ZULMA Telephone (NIQ) BRITTANIE GARCIA ([id number]) 1985 F Date Time Provider Department 02/09/23 MARIA DEL CARMEN BORGES During your visit today, we recorded the following information about you: Myrtle Gonzalez 02/09/2023 9:59 AM Signed Scanneed in medical records from [facility] for review Evonne Dillard RN 02/09/2023 10:26 AM Signed Maria Del Carmen Borges APRN.DRESSMAKER OR TAILOR You 2 minutes ago (10:23 AM) Reviewed. PRATIBHA Louis, RN, BA Allergies As of Date: 02/09/2023 Noted Allergy Reaction ADHESIVE 07/28/2022 14 - Other: See Comments 2 - Rash CAFFEINE 06/13/2012 11 - Vomiting DHE 06/13/2012 12 - Shortness of Breath Date Reviewed: 01/12/2023 Reviewed by: Maria Del Carmen Borges APRN.DRESSMAKER OR TAILOR - Fully Assessed Reason for Visit: Results [95] Cmt: [facility] Prescriptions as of 02/09/2023 - cyclobenzaprine (FLEXERIL) [...] Status:Closed by EVONNE DILLARD on 02/09/23 Normal [facility] Automated basophil %Ordered By: Maria Del Carmen Borges on 02-07-2023 Basophils/100 WBC (Bld) 0.4 % Normal . [facility] Comment on above: Performed By: #### F ER, CBC #### [facility] [address] Automated basophil countOrde red By: Maria Del Carmen Borges on 02-07-2023 Basophils (Bld) [#/Vol] 0.0 10*3/uL Normal 0.0-0.2 [facility] Comment on above: Result Comment: PERF ORMED BY: [place] [id number] PATHOLOGIST LIDAR ANALYST ROSSI POND M.D. Performed By: #### F ER, CBC #### [address] Automated blood monocyte cou ntOrdered By: Maria Del Carmen Borges on 02-07-2023 Monocytes (Bld) [#/Vol] 0.5 10*3/uL Normal 0.0-0.8 [facility] Comment on above: Performed By: #### F ER, CBC #### [address] Automated eosinophil %Ordere d By: Maria Del Carmen Borges on 02-07-2023 Eosinophils/100 WBC (Bld) 1.2 % Normal . [facility] Comment on above: Performed By: #### F ER, CBC #### [address] Automated eosinophil countOr dered By: Maria Del Carmen Borges on 02-07-2023 Eosinophils (Bld) [#/Vol] 0.1 10*3/uL Normal 0.0-0.45 [facility] Comment on above: Performed By: #### F ER, CBC #### [address] Automated monocyte %Ordered By: Maria Del Carmen Borges on 02-07-2023 Monocytes/100 WBC (Bld) 6.5 % Normal . [facility] Comment on above: Performed By: #### F ER, CBC #### [address] Automated neutrophil %Ordere d By: Maria Del Carmen Borges on 02-07-2023 Neutrophils/100 WBC (Bld) 56.5 % Normal . [facility] Comment on above: Performed By: #### F ER, CBC #### [address] Complete Blood Count Auto Di ffon 02-07-2023 Mean Corpuscular HGB Conc 33.3 g/dL Normal 32.0-35.0 [facility] Comment on above: Performed By: #### F ER, CBC #### [address] NRBC% 0.1 /100{WBC} Normal 0-0.5 [facility] Comment on above: Performed By: #### F ER, CBC #### [address] Erythrocyte distribution wid th [Ratio] by Automated countOrdered By: Maria Del Carmen Borges on 02-07-2023 Erythrocyte distribution width (RBC) [Ratio] 13.4 % Normal 11.9-15.3 [facility] Comment on above: Performed By: #### F ER, CBC #### [address] Erythrocytes [#/volume] in B lood by Automated countOrdered By: Maria Del Carmen Borges on 02-07-2023 RBC (Bld) [#/Vol] 4.94 10*6/uL Normal 3.60-5.00 [facility] Comment on above: Performed By: #### F ER, CBC #### [address] Ferritin [Mass/volume] in Se rum or PlasmaOrdered By: Maria Del Carmen Borges on 02-07-2023 Ferritin [Mass/Vol] 110.5 ng/mL Normal 11.0-306.8 [facility] Comment on above: Result Comment: PERF ORMED BY: [place] [address] PATHOLOGIST LIDAR ANALYST ROSSI POND M.D. Performed By: #### F ER, CBC #### [address] Hematocrit [Volume Fraction] of Blood by Automated countOrdered By: Maria Del Carmen Borges on 02-07-2023 Hematocrit (Bld) [Volume fraction] 42.6 % Normal 34.0-46.4 [facility] Comment on above: Performed By: #### F ER, CBC #### [facility] [address] Hemoglobin [Mass/volume] in BloodOrdered By: Maria Del Carmen Borges on 02-07-2023 Hemoglobin (Bld) [Mass/Vol] 14.2 g/dL Normal 11.8-15.4 [facility] Comment on above: Performed By: #### F ER, CBC #### [address] Leukocytes [#/volume] correc harman for nucleated erythrocytes in Blood by Automated counOrdered By: Maria Del Carmen Borges on 02-07-2023 WBC corrected for nucl RBC Auto (Bld) [#/Vol] 7.0 10*3/uL 3.8-11.6 [facility] Leukocytes [#/volume] in Blo od by Automated countOrdered By: Maria Del Carmen Borges on 02-07-2023 WBC (Bld) [#/Vol] 7.0 10*3/uL Normal 3.8-11.6 [facility] Comment on above: Performed By: #### F ER, CBC #### [address] Lymphocytes [#/volume] in Bl ood by Automated countOrdered By: Maria Del Carmen Borges on 02-07-2023 Lymphocytes (Bld) [#/Vol] 2.5 10*3/uL Normal 1.00-4.8 [facility] Comment on above: Performed By: #### F ER, CBC #### [place] [address] [place] Lymphocytes/100 leukocytes i n Blood by Automated countOrdered By: Maria Del Carmen Borges on 02-07-2023 Lymphocytes/100 WBC (Bld) 35.4 % Normal . [facility] Comment on above: Performed By: #### F ER, CBC #### [place] [address] [place] MCH [Entitic mass] by Automa harman countOrdered By: Maria Del Carmen Borges on 02-07-2023 MCH (RBC) [Entitic mass] 28.7 pg Normal 24.7-34.3 [facility] Comment on above: Performed By: #### F ER, CBC #### [address] MCHC Auto (RBC) [Mass/Vol]Or dered By: Maria Del Carmen Borges on 02-07-2023 MCHC (RBC) [Mass/Vol] 33.3 g/dL 32.0-35.0 [facility] MCV [Entitic volume] by Auto mated countOrdered By: Maria Del Carmen Borges on 02-07-2023 MCV (RBC) [Entitic vol] 86.2 fL Normal 80-100 [facility] Comment on above: Performed By: #### F ER, CBC #### [address] Neutrophils [#/volume] in Bl ood by Automated countOrdered By: Maria Del Carmen Borges on 02-07-2023 Neutrophils (Bld) [#/Vol] 4.0 10*3/uL Normal 1.8-7.7 [facility] Comment on above: Performed By: #### F ER, CBC #### [facility] [address] [place] [address] Nucleated erythrocytes [Pres ence] in Blood by Automated countOrdered By: Maria Del Carmen Borges on 02-07-2023 Nucleated RBC Auto Ql (Bld) 0.1 /100{WBC} 0-0.5 [facility] Platelet mean volume [Entiti c volume] in Blood by Automated countOrdered By: Maria Del Carmen Borges on 02-07-2023 Platelet mean volume (Bld) [Entitic vol] 8.3 fL Normal 6.3-10.7 [facility] Comment on above: Performed By: #### F ER, CBC #### [address] Platelets [#/volume] in Bloo d by Automated countOrdered By: Maria Del Carmen Borges on 02-07-2023 Platelets (Bld) [#/Vol] 223 10*3/uL Normal 150-450 [facility] Comment on above: Performed By: #### F ER, CBC #### [facility] [address] Echocardiogramon 12-28-[address] [facility] [address] [facility], [address], [place] [address] TRANSTHORACIC ECHOCARDIOGRAM REPORT Patient Name: BRITTANIE Enriquez Reading Physician: [id number] Saeed GARCIA MD Study Date: 12/28/2022 Referring SORAYA CAGE Physician: MRN/PID: [id number] PCP: Filiberto Ying Accession/Order#: [id number] Department [facility] Location: [place] Date of : 1985 Fellow: Gender: F Nurse: Admit Date: Enzyme Chemist: Lanny Padron RDCS, RVT Height: 157.48 cm CC Report to: Weight: 74.84 kg Study Type: Echocardiogram BSA: 1.76 m2 Blood Pressure: 106 /70 mmHg Diagnosis/ICD: R00.0-Tachycardia, unspecified; C85-Ktfnbzi Indication: Hyperlipidemia, Overweight Procedure/CPT: Echo Complete w Full Doppler-[id number] Study Detail: The following Echo studies were [...] 0.8 m/s (0.6-0.9m/s) PV Max P.4 mmHg [id number] Saeed Parada MD Electronically signed on 01/01/2023 at 2:35:16 PM Final Normal [facility] Office Visit (Cardiology)on 11-14-2022 Follow-up visit [...] alcoholic beverages.; Status:Complete - Retrospective Authorization; Done: [id number] Drink at least 6 glasses of water or juice a day.; Status:Complete - Retrospective Authorization; Done: [id number] Patient Instructions Avoid dehydration. Drink 5-6 bottles [...] the time of your visit. Corina Jordan LPN, am scribing for and in the presence of Dr. Soraya Cage, FACC, FACP, FHRS The provider reviewed the following test(s) and result(s) with the patient: ECG, Holter monitor and Tilt table Chief Complaint Patient [facility]. Adult Risk Screening Initial Fall Risk Screening: [...] Normal axis. Corrected QT interval 420 ms. AR interval 150 ms See signed ECG and check /Paceart. Imp / Plan Recurrent syncope, consistent with vasovagal etiology. Discussed mechanisms of syncope. Reviewed syncope brochure. Reviewed testing event monitor and tilt table te (more content not included)... Normal [facility] Office Visit (Cardiology)on 11-10-2022 Follow-up visit Diagnoses/Problems [...] Signs Recorded: 10Nov2022 09:01AMRecorded: 10Nov2022 08:58AM Systolic Cmwzuih04, LUE, Sitting Diastolic Tqvxplf27, LUE, Sitting Systolic Vsbkynlg536, LUE, Standing Diastolic Bqnkjcra85, LUE, Standing Heart Rate92, L Radial Hjcahayc46, LUE, Sitting Vypizalux00, LUE, Sitting Height5 ft 2 in Tywfsu170 lb BMI Sasmvfzrxv30.63 kg/m2 BSA Calculated1.75 Tobacco Useb) No Falls [...] (Author) Normal [facility] No Panel Informationon 10-23 [facility] HeartSandu ilan 250 DO Work Phone: Cardiovasc Arrhythmia Result son 09-29-2022 Cardiovasc Arrhythmia Results Reason For Visit Event Monitor: BRITTANIE is here for the application of a 30 day event monitor in office., Diagnosis: Syncope,Fainting Ordering Physician: Dr. Saeed Castellanos DO Enrollment sent to: [employer] Monitor number [id number] applied. Holter monitor printed and placed on [...] Nov 02 2022 9:05AM EST (Author) Normal [facility] Office Visit (Cardiology)on 09-20-2022 Follow-up visit Diagnoses/Problems [...] no rebound tachycardia. Recommendations, obtain [facility] monitoring, tilt table test, refer [...] Signs Recorded: 20Sep2022 10:01AMRecorded: 20Sep2022 09:59AM Systolic Cxwjq173 Diastolic Lying88 Systolic Fsruzyo648 Diastolic Hloqngf38 Systolic Rtnazhob652 Diastolic Kimnhdve36 Heart Rate85, Apical Jixarhpu098, LUE, Supine Oqtdbzjyp14, LUE, Supine Height5 ft 2 in Ypsihp102 lb BMI Spmbbqxakl81.36 kg/m2 BSA Calculated1.77 Tobacco Useb) No PHQ-2 #1. Ov (more content not included)... Normal [facility] Tobacco Screening.on 023 Adult depression screening assessment No [facility] Thrill 250 DO Work Phone: Tobacco use status CPHS b) No [facility] Thrill 250 DO Work Phone: MAGDA BY IFA WITH REFLEXon Nuclear Ab IF (S) [Titer] Negative Negative [facility] CCP ANTIBODY IGGon Cyclic citrullinated peptide IgG Qn <20 Units [facility] Cyclic citrullinated peptide IgG Qnon 07-31-2022 CCP Antibody IgG Qualitative Negative Negative [facility] C-REACTIVE PROTEIN (CRP)on 0 07-28-2022 CRP [Mass/Vol] <0.9 mg/dL [facility] CBC W Auto Differential pane l (Bld)on 07-28-2022 Basophils (Bld) [#/Vol] 0.03 10*3/uL <0.11 k/uL [facility] Basophils/100 WBC (Bld) 0.4 % [facility] Differential cell count method Nom (Bld) Auto [facility] Eosinophils (Bld) [#/Vol] 0.07 10*3/uL <0.46 k/uL [facility] Eosinophils/100 WBC (Bld) 0.9 % [facility] Erythrocyte distribution width (RBC) [Ratio] 13.0 % 11.5 - 15.0 % [facility] Hematocrit (Bld) [Volume fraction] 44.1 % 36.0 - 46.0 % [facility] Hemoglobin (Bld) [Mass/Vol] 14.3 g/dL 11.5 - 15.5 g/dL [facility] Immature granulocytes (Bld) [#/Vol] <0.10 k/uL [facility] Immature granulocytes/100 WBC (Bld) 0.3 % [facility] Lymphocytes (Bld) [#/Vol] 2.43 10*3/uL 1.00 - 4.00 k/uL [facility] Lymphocytes/100 WBC (Bld) 30.5 % [facility] MCH (RBC) [Entitic mass] 29.0 pg 26.0 - 34.0 pg [facility] MCHC (RBC) [Mass/Vol] 32.4 g/dL 30.5 - 36.0 g/dL [facility] MCV (RBC) [Entitic vol] 89.5 fL 80.0 - 100.0 fL [facility] Monocytes (Bld) [#/Vol] 0.49 10*3/uL <0.87 k/uL [facility] Monocytes/100 WBC (Bld) 6.1 % [facility] Neutrophils (Bld) [#/Vol] 4.93 10*3/uL 1.45 - 7.50 k/uL [facility] Neutrophils/100 WBC (Bld) 61.8 % [facility] Nucleated RBC (Bld) [#/Vol] <0.01 k/uL [facility] Nucleated RBC/100 WBC (Bld) [Ratio] 0.0 /100 WBC [facility] Platelet mean volume (Bld) [Entitic vol] 10.1 fL 9.0 - 12.7 fL [facility] Platelets (Bld) [#/Vol] 251 10*3/uL 150 - 400 k/uL [facility] RBC (Bld) [#/Vol] 4.93 10*6/uL 3.90 - 5.20 m/uL [facility] WBC (Bld) [#/Vol] 7.97 10*3/uL 3.70 - 11.00 k/uL [facility] Comprehensive metabolic 2000 panelon 07-28-2022 Albumin [Mass/Vol] 4.7 g/dL 3.9 - 4.9 g/dL [facility] ALP [Catalytic activity/Vol] 86 U/L 34 - 123 U/L [facility] ALT [Catalytic activity/Vol] 58 U/L High 7 - 38 U/L [facility] Anion gap [Moles/Vol] 12 mmol/L 9 - 18 mmol/L [facility] AST [Catalytic activity/Vol] 31 U/L 13 - 35 U/L [facility] Bilirubin [Mass/Vol] 0.4 mg/dL 0.2 - 1 .3 mg/dL [facility] Calcium [Mass/Vol] 10.0 mg/dL 8.5 - 10. 2 mg/dL [facility] Chloride [Moles/Vol] 105 mmol/L 97 - 10 5 mmol/L [facility] CO2 [Moles/Vol] 23 mmol/L 22 - 30 mmol/L [facility] Creatinine [Mass/Vol] 0.79 mg/dL 0.58 - 0.96 mg/dL [facility] Estimated Glomerular Filtration Rate 100 mL/min/1.73m >=60 mL/min/1.7 3m [facility] Glucose [Mass/Vol] 84 mg/dL 74 - 99 mg/dL [facility] Potassium [Moles/Vol] 4.1 mmol/L 3.7 - 5.1 mmol/L [facility] Protein [Mass/Vol] 7.7 g/dL 6.3 - 8.0 g/dL [facility] Sodium [Moles/Vol] 140 mmol/L 136 - 144 mmol/L [facility] Urea nitrogen [Mass/Vol] 12 mg/dL 7 - 21 mg/dL [facility] ESR Westergren method (Bld) [Velocity]on 07-28-2022 ESR (Bld) [Velocity] 5 mm/h 0 - 20 mm/hr [facility] No Panel Informationon 07-28 [facility] RHEUMATOID FACTOR BLon 07-28 Rheumatoid factor Qn <16 IU/mL [facility] XR CSPINE OBL FLEX_EXTon XR [...] by: NAVNEET MONTERO Date: 2022-02-16 08:57 Normal [facility] Ferritin [Mass/volume] in Se rum or PlasmaOrdered By: Kenna Sheehan on 01-19-2022 Ferritin [Mass/Vol] 51.8 ng/mL 11-306.8 [facility] PAP ACOG PANEL 2: 30 to 65on 01-13-2022 . . Normal [facility] Comment on above: Result Comment: Perf ormed at: WB Performed By: #### [id number] #### [facility] [address] [place] [address] Dr. Lui Fonseca Age Gdln ACOG Testing 30-65 Normal [facility] Comment on above: Performed By: #### [id number] #### [facility] [address] [place] [address] [address] Lui Fonseca DIAGNOSIS: Comment Normal [facility] Comment on above: Result Comment: NEGA TIVE FOR INTRAEPITHELIAL LESION OR MALIGNANCY. Performed at: WB Performed By: #### [id number] #### [facility] [address] [place] [address] [address] Lui oFnseca HPV Aptima Negative Normal Negative [facility] Comment on above: Result Comment: This nucleic acid amplification test detects fourteen high-risk HPV types (16,18,31,33,35,39,45,51,52,56,58,59,66,68) without differentiation. Performed at: =G Performed By: #### [id number] #### [facility] [address] [place] [address] Dr. Lui Fonseca Methodology: Comment [facility] Comment on above: Result Comment: This liquid based ThinPrep(R) pap test was screened with the use of an image guided system. Performed at: WB Performed By: #### [id number] #### [facility] [address] [place] [address] Dr. Lui Fonseca Note: Comment Normal [facility] Comment on above: Result Comment: The Pap smear is a screening test designed to aid in the detection of premalignant and malignant conditions of the uterine cervix. It is not a diagnostic procedure and should not be used as the sole means of detecting cervical cancer. Both false-positive and false-negative reports do occur. . Performed at: WB Performed By: #### [id number] #### [facility] [address] [place] [address] Dr. Lui Fonseca Performed by: Comment Normal [facility] Comment on above: Result Comment: Susan Alejandro, Supervisory Hand Screen Printer (ASCP) Performed at: WB Performed By: #### [id number] #### [facility] [address] [place] [address] Dr. Lui Fonseca Specimen adequacy: Comment [facility] Comment on above: Result Comment: Sati sfactory for evaluation. No endocervical component is identified. Performed at: WB Performed By: #### [id number] #### [facility] [address] [place] [address] Dr. Lui Fonseca INSULINon 01-02-2022 Insulin 20.6 uIU/mL Normal 2.6-24.9 [facility] Comment on above: Performed By: #### I NSULIN #### [facility] [address] [place] [address] Dr. Lui Fonseca H PYLORI ANTIBODY IGGon 12-19 H. PYLORI IGG ABS 0.15 Index Value Normal 0.00-0.79 [facility] Comment on above: Result Comment: Nega tive <0.80 Equivocal 0.80 - 0.89 Positive >0.89 Performed By: #### H PYLLC #### [facility] [address] [place] [address] Dr. Lui Fonseca T4, T3U, FTI LABCORPon 01-01 Free Thyroxine Index 2.7 Normal 1.2-4.9 [facility] Comment on above: Performed By: #### T HYLC #### [facility] [address] [place] [address] Dr. Lui Fonseca T3 Uptake 30 % Normal 24-39 [facility] Comment on above: Performed By: #### T HYLC #### [facility] [address] [place] [address] Dr. Lui Fonseca T4 [Mass/Vol] 9.1 ug/dL Normal 4.5-12.0 [facility] Comment on above: Performed By: #### T HYLC #### [facility] [address] [place] [address] Dr. Lui Fonseca CBC AUTO DIFFon 12-31-2021 BASO # 0.0 103/ul Normal 0.0-0.1 [facility] Comment on above: Performed By: #### C BC #### [facility] [address] [place] [address] Dr. Lui Fonseca Basophils/100 WBC (Bld) 0.4 % Normal 0.2-2.0 [facility] Comment on above: Performed By: #### C BC #### [facility] [address] [place] [address] Dr. Lui Fonseca EO # 0.2 103/ul Normal 0.0-0.7 [facility] Comment on above: Performed By: #### C BC #### [facility] [address] [place] [address] Dr. Lui Fonseca Eosinophils/100 WBC (Bld) 2.8 % Normal 0.9-7.0 [facility] Comment on above: Performed By: #### C BC #### [facility] [address] [place] [address] Dr. Lui Fonseca Erythrocyte distribution width (RBC) [Ratio] 13.2 % Normal 11.0-15.0 [facility] Comment on above: Performed By: #### C BC #### [facility] [address] [place] [address] Dr. Lui Fonseca Hematocrit (Bld) [Volume fraction] 44.0 % Normal 36.0-48.0 [facility] Comment on above: Performed By: #### C BC #### [facility] [address] [place] [address] Dr. Lui Fonseca Hemoglobin (Bld) [Mass/Vol] 14.3 g/dL Normal 12.0-16.0 [facility] Comment on above: Performed By: #### C BC #### [facility] [address] [place] [address] Dr. Lui Fonseca IG # 0.01 10e3/ul Normal 0.00-0.03 [facility] Comment on above: Performed By: #### C BC #### [facility] [address] [place] [address] Dr. Lui Fonseca IG % 0.2 % Normal 0.0-0.5 [facility] Comment on above: Performed By: #### C BC #### [facility] [address] [place] [address] Dr. Lui Fonseca LYMPH # 2.3 103/ul Normal 1.2-3.8 [facility] Comment on above: Performed By: #### C BC #### [facility] [address] [place] [address] Dr. Lui Fonseca Lymphocytes/100 WBC (Bld) 41.6 % Normal 20.5-60.0 [facility] Comment on above: Performed By: #### C BC #### [facility] [address] [place] [address] Dr. Lui Fonseca MANUAL DIFF REQ NO Normal [facility] Comment on above: Performed By: #### C BC #### [facility] [address] [place] [address] Dr. Lui Fonseca MCH (RBC) [Entitic mass] 29.1 pg Normal 26.7-34.0 [facility] Comment on above: Performed By: #### C BC #### [facility] [address] [place] [address] [address] Lui Fonseca MCHC (RBC) [Mass/Vol] 32.5 g/dL Normal 29.9-35.2 [facility] Comment on above: Performed By: #### C BC #### [facility] [address] [place] [address] [address] Lui Fonseca MCV (RBC) [Entitic vol] 89.6 fL Normal 81.0-99.0 [facility] Comment on above: Performed By: #### C BC #### [facility] [address] [place] [address] Dr. Lui Fonseca MONO # 0.3 103/ul Normal 0.3-0.8 [facility] Comment on above: Performed By: #### C BC #### [facility] [address] [place] [address] Dr. Lui Fonseca Monocytes/100 WBC (Bld) 6.3 % Normal 1.7-12.0 [facility] Comment on above: Performed By: #### C BC #### [facility] [address] [place] [address] Dr. Lui Fonseca NEUT # 2.7 103/ul Normal 1.4-6.5 [facility] Comment on above: Performed By: #### C BC #### [facility] [address] [place] [address] Dr. Lui Fonseca Neutrophils/100 WBC (Bld) 48.7 % Normal 43.0-75.0 [facility] Comment on above: Performed By: #### C BC #### [facility] [address] [place] [address] Dr. Lui Fonseca Platelet mean volume (Bld) [Entitic vol] 9.5 fL Normal 9.5-13.5 [facility] Comment on above: Performed By: #### C BC #### [facility] [address] [place] [address] Dr. Lui Fonseca PLT 276 103/ul Normal 150-450 [facility] Comment on above: Performed By: #### C BC #### [facility] [address] [place] [address] [address] Lui Fonseca RBC 4.91 106/ul Normal 4.20-5.40 [facility] Comment on above: Performed By: #### C BC #### [facility] [address] [place] [address] [address] Lui Fonseca WBC 5.4 103/ul Normal 4.0-11.0 [facility] Comment on above: Performed By: #### C BC #### [facility] [address] [place] [address] [address] Lui Fonseca GLYCOHEMOGLOBIN A1Con 2021 ADA RECOMMENDATION SEE BELOW Normal [facility] Comment on above: Result Comment: ADA RECOMMENDED LIMIT 4.0 - 6.0 ADA THERAPEUTIC TARGET < 7.0 ACTION SUGGESTED > 7.0 Performed By: #### A 1C ####[facility] [address] [address]Dr. Lui Fonseca Glucose [Mass/Vol] 97 mg/dL Normal [facility] Comment on above: Performed By: #### A 1C ####[facility] [address] [place] [address]Dr. Lui Fonseca HbA1c (Bld) [Mass fraction] 5.0 % Normal 4.5-6.2 [facility] Comment on above: Performed By: #### A 1C ####[facility] [address] [place] [address]Dr. Lui Fonseca IRONon 12-31-2021 Iron [Mass/Vol] 101.0 ug/dL Normal 50.0-170.0 [facility] Comment on above: Performed By: #### I EDMOND #### [facility] [address] [address] [address] Lui Fonseca LIPID PROFILEon 12-31-2021 CHOL-HDL RATIO NORM SEE BELOW Normal [facility] Comment on above: Result Comment: 3.3 - 4.4 LOW RISK 4.4 - 7.1 AVERAGE RISK 7.1 - 11.0 MODERATE RISK >11.0 HIGH RISK Performed By: #### T SH, LIPID, CMP ####[facility] [address] [id number]. Lui Fonseca Cholesterol [Mass/Vol] 149 mg/dL Normal <=200 [facility] Comment on above: Performed By: #### T MAMADOU, LIPID, CMP ####[facility] [address] [id number]. Lui Fonseca Cholesterol in HDL [Mass/Vol] 55 mg/dL Normal 40-60 [facility] Comment on above: Performed By: #### T SH, LIPID, CMP ####[facility] [address] [id number]. Lui Fonseca Cholesterol in LDL [Mass/Vol] 61.4 mg/dL Normal [facility] Comment on above: Performed By: #### T MAMADOU, LIPID, CMP ####[facility] [address] [id number]. Lui Fonseca Cholesterol.total/Chol esterol in HDL [Mass ratio] 2.7 {ratio} Normal [facility] Comment on above: Performed By: #### T MAMADOU, LIPID, CMP ####[facility] [address] [id number]. Lui Fonseca HDL NORMAL > or = 60 mg/dl - LO W CARDIOVASCULAR RISK <40 mg/dl - HIGH CARDIOVASCULAR RISK Normal [facility] Comment on above: Performed By: #### T MAMADOU, LIPID, CMP ####[facility] [address] [id number]. Lui Fonseca LDL CALC NORMAL SEE BELOW Normal [facility] Comment on above: Result Comment: <100 mg/dl OPTIMAL 100 - 129 mg/dl NEAR OR ABOVE OPTIMAL 130 - 159 mg/dl BORDERLINE HIGH 160 - 189 mg/dl HIGH >190 mg/dl VERY HIGH Performed By: #### T SH, LIPID, CMP ####[facility] [address] [id number]. Lui Fonseca Triglyceride [Mass/Vol] 163 mg/dL Critically high <=150 [facility] Comment on above: Performed By: #### T SH, LIPID, CMP ####[facility] [address] [address]Dr. Lui Fonseca VLDL CALC 32.6 mg/dL Normal [facility] Comment on above: Performed By: #### T MAMADOU, LIPID, CMP ####[facility] [address] [address]Dr. Lui Fonseca OCC BLD IMMUNO SCREENon 12-19 OCCULT BLOOD Negative Normal NEGATIVE [facility] Comment on above: Performed By: #### O BSCRN #### [facility] [address] [address] [address] Lui Fonseca PROF 14(COMP METB)on 022 Albumin [Mass/Vol] 4.1 g/dL Normal 3.4-5.0 [facility] Comment on above: Performed By: #### T MAMADOU, LIPID, CMP ####[facility] [address] [address]Dr. Lui Fonseca Albumin/Globulin [Mass ratio] 1.2 {ratio} Normal [facility] Comment on above: Performed By: #### T MAMADOU, LIPID, CMP ####[facility] [address] [address]Dr. Lui Fonseca ALP [Catalytic activity/Vol] 86 U/L Normal 46-116 [facility] Comment on above: Performed By: #### T MAMADOU, LIPID, CMP ####[facility] [address] [address]Dr. Lui Fonseca ALT [Catalytic activity/Vol] 27 U/L Normal 14-59 [facility] Comment on above: Performed By: #### T MAMADOU, LIPID, CMP ####[facility] [address] [address]Dr. Lui Fonseca Anion gap [Moles/Vol] 14.1 mmol/L Normal [facility] Comment on above: Performed By: #### T SH, LIPID, CMP ####[facility] [address] [address]Dr. Lui Fonseca AST [Catalytic activity/Vol] 15 U/L Normal 15-37 [facility] Comment on above: Performed By: #### T SH, LIPID, CMP ####[facility] [address] [id number]. Lui Fonseca Bilirubin [Mass/Vol] 0.6 mg/dL Normal 0.2-1.0 [facility] Comment on above: Performed By: #### T SH, LIPID, CMP ####[facility] [address] [address]Dr. Lui Fonseca Calcium [Mass/Vol] 9.1 mg/dL Normal 8.5-10.1 [facility] Comment on above: Performed By: #### T SH, LIPID, CMP ####[facility] [address] [address]Dr. Lui Fonseca Chloride [Moles/Vol] 104 mmol/L Normal 98-107 [facility] Comment on above: Performed By: #### T SH, LIPID, CMP ####[facility] [address] [place], [place] [address]Dr. Lui Fonseca CO2 [Moles/Vol] 26.8 mmol/L Normal 21.0-32.0 [facility] Comment on above: Performed By: #### T SH, LIPID, CMP ####[facility] [address] [place], [place] [address]Dr. Lui Fonseca Creatinine [Mass/Vol] 0.84 mg/dL Normal 0.55-1.02 [facility] Comment on above: Performed By: #### T SH, LIPID, CMP ####[facility] [address] [place], [place] [address]Dr. Lui Fonseca EGFR-AF TUVALUAN >60 Normal >=60 [facility] Comment on above: Performed By: #### T SH, LIPID, CMP ####[facility] [address] [address]Dr. Lui Fonseca EGFR-NON AF TUVALUAN >60 Normal >=60 [facility] Comment on above: Performed By: #### T SH, LIPID, CMP ####[facility] [address] [place], [place] [address]Dr. Lui Fonseca Globulin (S) [Mass/Vol] 3.3 g/dL Normal [facility] Comment on above: Performed By: #### T MAMADOU, LIPID, CMP ####[facility] [address] [address]Dr. Lui Fonseca Glucose [Mass/Vol] 93 mg/dL Normal 74-106 [facility] Comment on above: Performed By: #### T MAMADOU, LIPID, CMP ####[facility] [address] [address]Dr. Lui Fonseca Potassium [Moles/Vol] 3.9 mmol/L Normal 3.5-5.1 [facility] Comment on above: Performed By: #### T MAMADOU, LIPID, CMP ####[facility] [address] [address]Dr. Lui Fonseca Protein [Mass/Vol] 7.4 g/dL Normal 6.4-8.2 [facility] Comment on above: Performed By: #### T MAMADOU, LIPID, CMP ####[facility] [address] [place], [place] [address]Dr. Lui Fonseca Sodium [Moles/Vol] 141 mmol/L Normal 136-145 [facility] Comment on above: Performed By: #### T MAMADOU, LIPID, CMP ####[facility] [address] [place], [place] [address]Dr. Lui Fonseca Urea nitrogen [Mass/Vol] 8.0 mg/dL Normal 7.0-18.0 [facility] Comment on above: Performed By: #### T MAMADOU, LIPID, CMP ####[facility] [address] [place], [place] [address]Dr. Lui Fonseca Urea nitrogen/Creatinine [Mass ratio] 9.5 mg/mg Normal [facility] Comment on above: Performed By: #### T MAMADOU, LIPID, CMP ####[facility] [address] [place], [place] [address]Dr. Lui Fonseca TSHon 12-31-2021 TSH 0.539 uIU/mL Normal 0.358-3.74 0 [facility] Comment on above: Performed By: #### T MAMADOU, LIPID, CMP ####[facility] [address] [place], [place] [address]Ed. Lui Fonseca Vital Signs Date Time Vital Sign Value Performing Clinician Facility 01-30-2024 13:48-0400 Body height 157.5 cm Harman Sullivan MD Work Phone: [facility] 01-30-2024 13:48-0400 Body mass index (BMI) [Ratio] 28.43 kg/m2 Harman Sullivan MD Work Phone: [facility] 01-30-2024 13:48-0400 Body weight 70.5 kg Harman Sullivan MD Work Phone: [facility] 01-30-2024 13:48-0400 Diastolic blood pressure 76 mm[Hg] Harman Sullivan MD Work Phone: [facility] 01-30-2024 13:48-0400 Heart rate 91 /min Harman Sullivan MD Work Phone: [facility] 01-30-2024 13:48-0400 Systolic blood pressure 115 mm[Hg] Harman Sullivan MD Work Phone: [facility] 10-31-2023 10:14-0400 Body height 157.5 cm Harman Sullivan MD Work Phone: [facility] 10-31-2023 10:14-0400 Body mass index (BMI) [Ratio] 27.82 kg/m2 Harman Sullivan MD Work Phone: [facility] 10-31-2023 10:14-0400 Body weight 69 kg Harman Sullivan MD Work Phone: [facility] 10-31-2023 10:14-0400 Diastolic blood pressure 70 mm[Hg] Harman Sullivan MD Work Phone: [facility] 10-31-2023 10:14-0400 Heart rate 84 /min Harman Sullivan MD Work Phone: [facility] 10-31-2023 10:14-0400 Systolic blood pressure 109 mm[Hg] Harman Sullivan MD Work Phone: [facility] 09-21-2023 08:12-0400 Body height 157.5 cm Harman Sullivan MD Work Phone: [facility] 09-21-2023 08:12-0400 Body mass index (BMI) [Ratio] 27.58 kg/m2 Harman Sullivan MD Work Phone: [facility] 09-21-2023 08:12-0400 Body weight 68.4 kg Harman Sullivan MD Work Phone: [facility] 09-21-2023 08:12-0400 Diastolic blood pressure 74 mm[Hg] Harman Sullivan MD Work Phone: [facility] 09-21-2023 08:12-0400 Heart rate 84 /min Harman Sullivan MD Work Phone: [facility] 09-21-2023 08:12-0400 SaO2% (BldA) [Mass fraction] 99 % Harman Sullivan MD Work Phone: [facility] 09-21-2023 08:12-0400 Systolic blood pressure 109 mm[Hg] Harman Sullivan MD Work Phone: [facility] 05-15-2023 12:15-0500 Diastolic blood pressure 67 mm[Hg] MD Filiberto Ying Work Phone: [facility] 05-15-2023 12:15-0500 Heart rate 86 /min MD Filiberto Ying Work Phone: [facility] 05-15-2023 12:15-0500 Respiratory rate 16 /min MD Filiberto Ying Work Phone: [facility] 05-15-2023 12:15-0500 SaO2% (BldA) [Mass fraction] 100 % MD Filiberto Ying Work Phone: [facility] 05-15-2023 12:15-0500 Systolic blood pressure 125 mm[Hg] MD Filiberto Ying Work Phone: [facility] 05-15-2023 11:10-0500 Inhaled oxygen flow rate 6 L/min MD Filiberto Ying Work Phone: [facility] 05-15-2023 10:55-0500 Body temperature 98.1 [degF] MD Filiberto Ying Work Phone: [facility] 05-15-2023 09:30-0500 Body mass index (BMI) [Ratio] 25.8 kg/m2 MD Filiberto Ying Work Phone: [facility] 05-15-2023 08:55-0500 Body height 157.48 cm MD Filiberto Ying Work Phone: [facility] 05-15-2023 08:55-0500 Body weight 64 kg MD Filiberto Ying Work Phone: [facility] 04-05-2023 12:08-0500 Body temperature 98.2 [degF] MD Filiberto Ying Work Phone: [facility] 04-05-2023 12:08-0500 Diastolic blood pressure 69 mm[Hg] MD Filiberto Ying Work Phone: [facility] 04-05-2023 12:08-0500 Heart rate 87 /min MD Filiberto Ying Work Phone: [facility] 04-05-2023 12:08-0500 Respiratory rate 18 /min MD Filiberto Ying Work Phone: [facility] 04-05-2023 12:08-0500 SaO2% (BldA) [Mass fraction] 100 % MD Filiberot Ying Work Phone: [facility] 04-05-2023 12:08-0500 Systolic blood pressure 110 mm[Hg] MD Filiberto Ying Work Phone: [facility] 01-12-2023 09:35-0400 Body height 157.5 cm Maria Del Carmen Borges PROFESSOR OF GEOGRAPHY.DRESSMAKER OR TAILOR Work Phone: [facility] 01-12-2023 09:35-0400 Body weight 70.31 kg Maria Del Carmen Borges PROFESSOR OF GEOGRAPHY.DRESSMAKER OR TAILOR Work Phone: [facility] 01-12-2023 09:35-0400 Diastolic blood pressure 69 mm[Hg] Maria Del Carmen Borges PROFESSOR OF GEOGRAPHY.DRESSMAKER OR TAILOR Work Phone: [facility] 01-12-2023 09:35-0400 Heart rate 110 /min Maria Del Carmen Borges PROFESSOR OF GEOGRAPHY.DRESSMAKER OR TAILOR Work Phone: [facility] 01-12-2023 09:35-0400 SaO2% (BldA) [Mass fraction] 93 % Maria Del Carmen Borges PROFESSOR OF GEOGRAPHY.DRESSMAKER OR TAILOR Work Phone: [facility] 01-12-2023 09:35-0400 Systolic blood pressure 110 mm[Hg] Maria Del Carmen Borges PROFESSOR OF GEOGRAPHY.DRESSMAKER OR TAILOR Work Phone: [facility] 10-23-2022 14:14-0400 Diastolic blood pressure 66 mm[Hg] MD Filiberto Ying Work Phone: [facility] 10-23-2022 14:14-0400 Heart rate 100 /min MD Filiberto Ying Work Phone: [facility] 10-23-2022 14:14-0400 Systolic blood pressure 113 mm[Hg] MD Filiberto Ying Work Phone: [facility] 10-23-2022 13:50-0400 SaO2% (BldA) [Mass fraction] 99 % MD Filiberto Ying Work Phone: [facility] 09-20-2022 10:01-0400 Diastolic blood pressure 88 mm[Hg] Filiberto M Hoy Work Phone: [facility] [address] DO Work Phone: 09-20-2022 10:01-0400 Diastolic blood pressure 84 mm[Hg] Filiberto M Hoy Work Phone: [facility] [address] DO Work Phone: 09-20-2022 10:01-0400 Diastolic blood pressure 86 mm[Hg] Filiberto M Hoy Work Phone: [facility] [address] DO Work Phone: 09-20-2022 10:01-0400 Systolic blood pressure 120 mm[Hg] Filiberto Zoe Hoy Work Phone: [facility] [address] DO Work Phone: 09-20-2022 10:01-0400 Systolic blood pressure 122 mm[Hg] Filiberto Zoe Hoy Work Phone: [facility] [address] DO Work Phone: 09-20-2022 09:59-0400 Body height 157.48 cm Filiberto Zoe Hoy Work Phone: [facility] [address] DO Work Phone: 09-20-2022 09:59-0400 Body mass index (BMI) [Ratio] 30.36 kg/m2 Filiberto Zoe Hoy Work Phone: [facility] [address] DO Work Phone: 09-20-2022 09:59-0400 Body surface area Derived from formula 1.77 m2 Filiberto Zoe Hoy Work Phone: [facility] [address] DO Work Phone: 09-20-2022 09:59-0400 Body weight 75.3 kg Filiberto Enriquez Hoy Work Phone: [facility] [address] DO Work Phone: 09-20-2022 09:59-0400 Diastolic blood pressure 88 mm[Hg] Filiberto Zoe Hoy Work Phone: [facility] [address] DO Work Phone: 09-20-2022 09:59-0400 Heart rate 85 /min Filiberto Zoe Hoy Work Phone: [facility] [address] DO Work Phone: 09-20-2022 09:59-0400 Systolic blood pressure 120 mm[Hg] Filiberto Zoe Hoy Work Phone: [facility] [address] DO Work Phone: 07-28-2022 13:01-0500 Body height 157.5 cm Somjita Braxton PROFESSOR OF GEOGRAPHY.DRESSMAKER OR TAILOR Work Phone: [facility] 07-28-2022 13:01-0500 Body temperature 97.81 [degF] Somjita Braxton PROFESSOR OF GEOGRAPHY.DRESSMAKER OR TAILOR Work Phone: [facility] 07-28-2022 13:01-0500 Body weight 79.11 kg Somjita Braxton PROFESSOR OF GEOGRAPHY.DRESSMAKER OR TAILOR Work Phone: [facility] 07-28-2022 13:01-0500 Diastolic blood pressure 59 mm[Hg] Somjita Braxton PROFESSOR OF GEOGRAPHY.DRESSMAKER OR TAILOR Work Phone: [facility] 07-28-2022 13:01-0500 Heart rate 85 /min Somjita Braxton PROFESSOR OF GEOGRAPHY.DRESSMAKER OR TAILOR Work Phone: [facility] 07-28-2022 13:01-0500 Systolic blood pressure 117 mm[Hg] Somjita Braxton PROFESSOR OF GEOGRAPHY.DRESSMAKER OR TAILOR Work Phone: [facility] Encounters Encounter Date Encounter Type Care Provider Facility Start: 02-18-2024 End: 02-18-2024 ambulatory Reuben Bauman MD Facility:[facility] Start: 01-30-2024 End: 01-30-2024 ambulatory HARMAN SULLIVAN Facility:[facility] Start: 01-30-2024 End: 01-30-2024 Patient encounter procedure Harman Sullivan MD Work Phone: Neurology Comment on above: Chronic migraine wit hout aura, with intractable migraine, so stated, with status migrainosus (Primary Dx); Neck pain Start: 01-28-2024 End: 01-28-2024 Patient encounter procedure MD Filiberto Ying Work Phone: [facility] Car Start: 01-28-2024 End: 01-28-2024 ambulatory MD Filiberto Ying Work Phone: [facility] Work Phone: Start: 11-09-2023 ambulatory [facility] Provider Neurology Comment on above: Paperwork Start: 11-09-2023 E-mail encounter fro m caregiver [facility] Provider Neurology Start: 10-31-2023 Telephone encounter Harman fraser MD Work Phone: Neurology Comment on above: Appointment Start: 10-31-2023 End: 10-31-2023 ambulatory HARMAN SULLIVAN Facility:[facility] Start: 10-31-2023 End: 10-31-2023 Patient encounter procedure Harman Sullivan MD Work Phone: Neurology Comment on above: Chronic migraine wit hout aura, with intractable migraine, so stated, with status migrainosus (Primary Dx); Neck pain Start: 10-18-2023 Get Medical Advice Maria Del Carmen caraballo PROFESSOR OF GEOGRAPHY.DRESSMAKER OR TAILOR Work Phone: Neurology Comment on above: Med refill Refill Request Start: 10-11-2023 Telephone encounter Harman fraser MD Work Phone: Neurology Comment on above: Insurance Authorizat ion (Botox) Start: 10-03-2023 ambulatory Maria Del Carmen PAREKHN.DRESSMAKER OR TAILOR Work Phone: Neurology Comment on above: Fmla Start: 09-21-2023 Telephone encounter Harman fraser MD Work Phone: Neurology Comment on above: Request Outside [facility] Records Start: 09-21-2023 End: 09-21-2023 ambulatory HARMAN SULLIVAN Facility:[facility] Start: 09-21-2023 End: 09-21-2023 Patient encounter procedure Haramn Sullivan MD Work Phone: Neurology Comment on above: Chronic migraine wit hout aura, with intractable migraine, so stated, with status migrainosus (Primary Dx); Neck pain; RLS (restless legs syndrome) Start: 09-15-2023 Refill Maria Del Carmen PHAM.DRESSMAKER OR TAILOR Work Phone: Neurology Comment on above: Refill Request Start: 09-04-2023 End: 09-04-2023 ambulatory Maria Del Carmen Borges APRN.DRESSMAKER OR TAILOR Work Phone: Neurology Comment on above: Cervical dystonia (P rimary Dx) Start: 09-04-2023 End: 09-04-2023 Telemedicine consultation with patient Maria Del Carmen Borges PROFESSOR OF GEOGRAPHY.DRESSMAKER OR TAILOR Work Phone: [facility] Start: 09-03-2023 E-mail encounter fro m caregiver Maria Del Carmen Borges PROFESSOR OF GEOGRAPHY.DRESSMAKER OR TAILOR Work Phone: Neurology Start: 09-03-2023 Patient encounter procedure Maria Del Carmen Borges PROFESSOR OF GEOGRAPHY.DRESSMAKER OR TAILOR Work Phone: Neurology Comment on above: appointment Start: 07-30-2023 End: 07-30-2023 ambulatory VALERIO SANZ Not Available Start: 05-23-2023 End: 05-23-2023 ambulatory DANO H EDENILSON Not Available Start: 05-15-2023 End: 05-15-2023 Admission to same day surgery center MD Filiberto Ying Work Phone: [facility]gery [facility] Main [place] Start: 05-15-2023 End: 05-15-2023 ambulatory MD Filiberto Ying Work Phone: [facility] Work Phone: Start: 05-01-2023 End: 05-01-2023 Patient encounter procedure MD Filiberto Ying Work Phone: [facility]-Pre-Surgical Testing Work Phone: Start: 05-01-2023 End: 05-01-2023 ambulatory MD Filiberto Ying Work Phone: [facility] Work Phone: Start: 04-05-2023 End: 04-05-2023 Admission to same day surgery center MD Filiberto Ying Work Phone: [facility]Ultrasound [facility] for [facility] Car Start: 04-05-2023 End: 04-05-2023 ambulatory MD Filiberto Ying Work Phone: [facility] Work Phone: Start: 02-19-2023 Telephone encounter Maria Del Carmen Tucker on PROFESSOR OF GEOGRAPHY.DRESSMAKER OR TAILOR Work Phone: Neurology Comment on above: Results ([facility] ) Start: 02-09-2023 Telephone encounter Maria Del Carmen Tucker on PROFESSOR OF GEOGRAPHY.DRESSMAKER OR TAILOR Work Phone: Neurology Comment on above: Results ([facility] [place] ) Start: 02-07-2023 End: 02-07-2023 Patient encounter procedure MD Filiberto Ying Work Phone: [facility]-Lab Main [place] Work Phone: Start: 02-07-2023 End: 02-07-2023 ambulatory MD Filiberto Ying Work Phone: [facility] Work Phone: Start: 01-19-2023 Orders Only Maria Del Carmen Giles PRN.DRESSMAKER OR TAILOR Work Phone: Neurology Start: 01-17-2023 ambulatory Maria Del Carmen Giles PRN.DRESSMAKER OR TAILOR Work Phone: Neurology Comment on above: Labs and rx Start: 01-12-2023 End: 01-12-2023 Patient encounter procedure Maria Del Carmen Borges PROFESSOR OF GEOGRAPHY.DRESSMAKER OR TAILOR Work Phone: Neurology Comment on above: Cervical dystonia (P rimary Dx); Neck tightness; RLS (restless legs syndrome) Start: 01-08-2023 Chart Update Filiberto Ying Work Phone: [facility] [address] DO Work Phone: Start: 12-28-[address] Soraya Ford acility:[id number] Start: 11-14-2022 ambulatory Soraya Cage Facility:1 [id number] Start: 11-10-2022 FUV, Provider: Saeed Castellanos, Status: Pen, Time: 8:50 AM Filiberto Ying Work Phone: [facility] Work Phone: Start: 11-10-[address] Saeed Castellanos Facility: Start: 11-02-[address] [facility] Start: 11-02-[address] Saeed Castellanos Facility: Start: 10-23-2022 End: 10-23-2022 ambulatory MD Filiberto Ying Work Phone: [facility] Work Phone: Start: 10-23-2022 End: 10-23-2022 Patient encounter procedure MD Filiberto Ying Work Phone: [facility]-Electrodiagnostics Work Phone: Start: 10-23-2022 ambulatory Romero Jones Faci lity:[id number] Start: 10-12-2022 End: 10-12-2022 Patient encounter procedure MD Filiberto Ying Work Phone: [facility]-Center for Breast Care Work Phone: Start: 10-06-[address] FILIBERTO YING . Facili ty:H1 Start: 09-29-2022 EVENT EMORY, Provider : MOOKIE YOUNG ASSOCIATE JAVA DEVELOPER 1,[id number], Status: Pen, Time: 1:00 PM Filiberto Ying Work Phone: [facility] [address] DO Work Phone: Start: 09-29-2022 Patient encounter procedure Filiberto Ying Work Phone: [facility] [address] DO Work Phone: Start: 09-29-[address] Saeed Castellanos Facility: Start: 09-20-2022 Office consultation new/estab patient 60 min Filiberto Ying Work Phone: [facility] [address] DO Work Phone: Start: 09-20-[address] Saeed Castellanos Facility: Start: 08-11-2022 End: 08-11-2022 ambulatory Nayely Limon APRN.DRESSMAKER OR TAILOR Work Phone: Rheumatology Comment on above: Neck pain, chronic ( Primary Dx); Fibromyalgia Start: 08-11-2022 End: 08-11-2022 Telemedicine consultation with patient Nayely Limon APRN.DRESSMAKER OR TAILOR Work Phone: [facility] Start: 07-28-2022 End: 07-28-2022 Subsequent hospital visit by physician Xr Main A[facility] Radiology Comment on above: Neck pain, chronic [ M54.2, G89.29] Start: 07-28-2022 End: 07-28-2022 Patient encounter procedure Nayely Limon APRN.DRESSMAKER OR TAILOR Work Phone: Rheumatology Comment on above: Neck [...] encounter procedure MD Filiberto Ying Work Phone: [facility]-Lab Main [place] Start: 01-09-2022 End: 01-09-[address] FABY RAYMOND . Facility:[facility] Start: 01-03-2022 Encounter for genera l adult medical examination without abnormal findings DR FILIBERTO YING . [facility] Start: 12-31-2021 End: 01-01-[address] FILIBERTO YING . Facility:[facility] Start: 12-31-2021 End: 01-01-2022 Encounter for general adult medical examination without abnormal findings DR FILIBERTO YING . Facility:[facility] Start: 11-18-2021 End: 11-18-2021 Patient encounter procedure MD Filiberto Ying Work Phone: [facility] Main [place] Procedures Date Procedure Procedure Detail Performing Clinician [...] Filiberto Ying Work Phone: Start: 12-28-2022 Echocardiography Vella s Zoe Ying Work Phone: Start: 10-12-2022 Bilateral mammography M Krishna Ying Work Phone: Start: 10-12-2022 Ultrasonography of b ilateral breasts MD Filiberto Ying Work Phone: Start: 07-28-2022 Radex spine cervical 4 or 5 views Somstephanieta Braxton PROFESSOR OF GEOGRAPHY.DRESSMAKER OR TAILOR Work Phone: Start: 07-28-2022 Radiologic exam chest 2 views Somjita Braxton PROFESSOR OF GEOGRAPHY.DRESSMAKER OR TAILOR Work Phone: Start: 11-18-2021 MRI of head MD Filiberto Ying Work Phone: Cholecystectomy Filiberto M Ho y Work Phone: Esophagogastroduodenoscopy D ouglas M Frany Work Phone: Hysterectomy Filiberto M Hoy Work Phone: Laparoscopy Filiberto M Hoy Work Phone: Tonsillectomy and adenoidectomy Filiberto M Hoy Work Phone: NEGATED: Highlighted row has not occurred! Total colonoscopy Filiberto M Hoy Work Phone: Plan of Treatment Date Care Activity Detail Author Start: 01-03-2030 Urine microalbumin profile [facility] Start: 10-29-2024 End: 10-29-2024 Patient encounter procedure 10/29/2024 4:30 PM EDT Office Visit Neurology [address] [place] [address] [place] [phone] Harman Sullivan MD [address] [facility] [address] [place], [place] [id number] F/u hold for botox Neurology Comment on above: F/u hold for botox Start: 07-30-2024 End: 07-30-2024 Patient encounter procedure 07/30/2024 4:30 PM EDT Office Visit Neurology [address] [facility] [place] [place] [address] Harman Sullivan MD [address] [facility] [address] [place], [place] [id number] Botox Neurology Comment on above: Botox Start: 04-30-2024 End: 04-30-2024 Patient encounter procedure 04/30/2024 8:30 AM EST Office Visit Neurology [address] [facility] [place] [place] [address] Harman Sullivan MD [address] [facility] [place] [address] Botox Neurology Comment on above: Botox Start: 01-30-2024 End: 01-30-2024 Patient encounter procedure 01/30/2024 2:00 PM EDT Office Visit Neurology [address] [facility] [place] [place] [phone] Harman Sullivan MD [address] [facility] [place] [address] Botox Neurology Comment on above: Botox Start: 01-20-2024 Covid-19 Vaccine ( season) Covid-19 Vaccine ( season) [facility] Start: 01-20-2024 Influenza vaccination [facility] Start: 11-06-2023 End: 11-06-2023 Patient encounter procedure 11/06/2023 10:30 AM EDT Office Visit Neurology [address] [place] [address] Harman Sullivan MD [address] [facility] [place] [address] Three week follow up Neurology Comment on above: Three week follow up Start: 10-31-2023 End: 10-31-2023 Patient encounter procedure 10/31/2023 10:30 AM EDT Office Visit Neurology [address] [facility] [place] [place] [phone] Harman Sullivan MD [address] [facility] [address] [place], [place] [phone] Botox auth approved Neurology Comment on above: Botox auth approved Start: 09-21-2023 End: 09-21-2023 Patient encounter procedure 09/21/2023 8:30 AM EDT Office Visit Neurology [address] [facility] [place] [place] [address] Harman Sullivan MD [address] [facility] [address] [place], [place] [phone] Cervical dystonia [G24.3] Neurology Comment on above: Cervical dystonia [G 24.3] Start: 05-21-2023 Behavioral Health Screening Behavioral Health Screening [facility] Start: 05-15-2023 [facility] Start: 05-15-2023 [facility] Start: 04-05-2023 [facility] Start: 03-16-2023 FUV, Provider: Soraya Cage, Status: Pen, Time: 1:00 PM FUV, Provider: Soraya Cage, Status: Pen, Time: 1:00 PM [facility] [address] DO Work Phone: Start: 01-19-2023 Covid-19 Vaccine ( season) Covid-19 Vaccine () [facility] Start: 01-19-2023 Influenza vaccination [facility] Start: 01-12-2023 End: 03-14-2023 CBC panel - Blood by Automated count CBC Lab Routine RLS (restless legs syndrome) Expected: 01/12/2023, Expires: 03/14/2023 [facility] Work Phone: Comment on above: Expected: 01/12/2023 , Expires: 03/14/2023 Start: 01-12-2023 End: 03-14-2023 Cobalamin (Vitamin B12) [Mass/volume] in Serum or Plasma VITAMIN B12 BLOOD Lab Routine RLS (restless legs syndrome) Expected: 01/12/2023, Expires: 03/14/2023 [facility] Work Phone: Comment on above: Expected: 01/12/2023 , Expires: 03/14/2023 Start: 01-12-2023 End: 03-14-2023 Comprehensive metabolic 2000 panel - Serum or Plasma COMP METABOLIC PANEL Lab Routine RLS (restless legs syndrome) Expected: 01/12/2023, Expires: 03/14/2023 [facility] Work Phone: Comment on above: Expected: 01/12/2023 , Expires: 03/14/2023 Start: 01-12-2023 End: 03-14-2023 Ferritin [Mass/volume] in Serum or Plasma FERRITIN BLD Lab Routine RLS (restless legs syndrome) Expected: 01/12/2023, Expires: 03/14/2023 [facility] Work Phone: Comment on above: Expected: 01/12/2023 , Expires: 03/14/2023 Start: 01-12-2023 End: 03-14-2023 Iron and Iron binding capacity panel - Serum or Plasma IRON + TIBC Lab Routine RLS (restless legs syndrome) Expected: 01/12/2023, Expires: 03/14/2023 [facility] Work Phone: Comment on above: Expected: 01/12/2023 , Expires: 03/14/2023 Start: 11-14-2022 NPVRFRL, Provider: Soraya Cage, Status: Pen, Time: 4:20 PM NPVRFRL, Provider: Soraya Cage, Status: Keyur, Time: 4:20 PM [facility] Work Phone: Start: 11-10-2022 FUV, Provider: Saeed Castellanos, Status: Pen, Time: 8:50 AM FUV, Provider: Saeed Castellanos, Status: Pen, Time: 8:50 AM -[facility] 250 DO Work Phone: Start: 10-23-2022 SURGNONUH, Provider: Romero Jones, Status: Pen, Time: 2:00 PM SURGNONUH, Provider: Romero Jones, Status: Pen, Time: 2:00 PM -[facility] 250 DO Work Phone: Start: 09-29-2022 EVENT [facility]ORY, Provider : MOOKIE YOUNG ASSOCIATE JAVA DEVELOPER 1,[id number], Status: Pen, Time: 1:00 PM [facility], Provider: MOOKIE YOUNG ASSOCIATE JAVA DEVELOPER 1,[id number], Status: Pen, Time: 1:00 PM -[facility] 250 DO Work Phone: Start: 05-21-2022 DEPRESSION ASSESSMENT DEPRESSION ASS ESSMENT [facility] Start: 01-19-2022 Influenza vaccination INFLUENZA (#1) [facility] Start: 2017 HPV TESTING HPV TESTING [facility] Start: 2017 Screening for malign ant neoplasm of cervix HPV Testing [facility] Start: 01-07-2008 PAP TESTING PAP TESTING [facility] Start: 01-07-2008 Screening for malign ant neoplasm of cervix [facility] Start: 2006 Hepatitis B Vaccine (1 of 3 - 19+ 3-dose series) Hepatitis B Vaccine (1 of 3 - + 3-dose series) [facility] Start: 2005 Anxiety Screening Anxiety Screening [facility] Start: 2005 Depression Screening Depression Scre ening [facility] Start: 2005 HEPATITIS C SCREENING HEPATITIS C [facility] Start: 2005 Hepatitis C screening Hepatitis C [facility] Start: 2005 HIV SCREENING HIV SCREENING [facility] Start: 2005 HIV screening HIV Screening [facility] Start: 1987 COVID-19 VACCINE (#1) COVID-19 VACCI NE (#1) [facility] Start: 1987 HEPATITIS B (1 of 3 - 3-dose series) HEPATITIS B (1 of 3 - 3-dose series) [facility] Start: 1987 Hepatitis B Vaccine (1 of 3 - 3-dose series) Hepatitis B Vaccine (1 of 3 - 3-dose series) [facility] Patient referral [facility] Work Phone: [facility] Immunizations Immunization Date Immunization Notes Care Provider Alina peacock 01-04-2020 tetanus toxoid, redu hawa diphtheria toxoid, and acellular pertussis vaccine, adsorbed Xr A21 [facility] 07-27-2016 tetanus toxoid, redu hawa diphtheria toxoid, and acellular pertussis vaccine, adsorbed Xr A21 [facility] Payers Date Payer Category Payer Private Health Insurance [id number] 2022 Private Health Insurance [id number] 2022 Medicaid [employer] [employer] [place] [id number] 2022-Present [phone] [address] [place] [address] Medicaid [id number] 1987 Unknown [id number] 2.840.1.755527.3.579.2. 593 1987 Unknown [id number] 2.16.840.1.496162.3.579.2. 593 1987 Unknown [id number] 2.16840.1.057986.3.579.2. 593 1987 Unknown [id number] 2.16.840.1.876766.3.579.2. 593 1987 Unknown [id number] 2.16.840.1.456760.3.579.2. 593 1987 Unknown [id number] 2.16.840.1.770305.3.579.2. 593 1987 Unknown [id number] 2.16.840.1.192062.3.579.2. 593 1987 Unknown [id number] 2.16.840.1.418647.3.579.2. 593 1987 Unknown [id number] 2.16.840.1.467499.3.579.2. 593 1987 Unknown [id number] 2.16.840.1.985543.3.579.2. 1068 1987 Unknown [id number] 2.16.840.1.351767.3.579.2. 356 1987 Unknown [id number] 2.16.840.1.915779.3.579.2. 356 1987 Unknown [id number] 2.16.840.1.640343.3.579.2. 356 1987 Unknown [id number] 2.16.840.1.095907.3.579.2. 356 1987 Unknown [id number] 2.16.840.1.927867.3.579.2. 356 1987 Unknown [id number] 2.16.840.1.232353.3.579.2. 356 1987 Unknown [id number] 2.16.840.1.790554.3.579.2. 356 1987 Unknown [id number] 2.16.840.1.804109.3.579.2. 1259 1987 Unknown [id number] 2.16.840.1.641319.3.579.2. 1259 1987 Unknown [id number] 2.16.840.1.783824.3.579.2. 196 1959 Medicaid [id number] Medicaid [employer] [id number] Self-pay Self Pay [id number] Unknown [place]lette BC/BS [id number] Unknown [id number] Unknown HCAP/HFA/FAP Active [id number] Social History Date Type Detail Facility Start: 06-13-2012 End: 12-24-2020 Tobacco smoking status NHIS Never smoked tobacco (finding) [facility] Start: 1987 Sex Assigned At Female F [facility] Start: 06-13-2012 Tobacco use and exposure Smokeless tobacco non-user [facility] Work Phone: Start: 07-28-2022 End: 01-30-2024 Alcohol intake Current non-drinker of alcohol (finding) [facility] Start: 01-12-2023 End: 01-30-2024 No caffeine use No caffeine use [facility] Start: 01-12-2023 End: 01-30-2024 Tobacco use panel [facility] Adult Depression Screening Assessment 2 [facility] Start: 07-28-2022 Gender identity Identifies as female gender (finding) [facility] Start: 07-28-2022 Sexual orientation Heterosexual (marzena padgett) [facility] Goals Date Patient Goal Desired Activity /State Clinical Notes 02-16-2022 to 01-30-2024 Harman Sullivan MD - 01/30/2024 1:49 PM EDTTelephone Encounter - Harman Sullivan MD - 11/01/2023 9:17 AM EDTTelephone Encounter - Harman Sullivan MD - 11/01/2023 9:17 AM EDTPatient Instructions Note Date & Type Note Facility 01-30-2024 Note HNO ID: [id number] Author: HARMAN SULLIVAN MD Service: ? Author [...] brought in by patient? No Lot #: [id number] Exp: 03/2026 Dilution: 5 units/0.1 ml (100 [...] Optional follow pain # units L R Major General 10 units divided in 2 sites XXXXXXX [...] in Treatment Plan? No Harman Sullivan MD [facility] 01-30-2024 History of Presen t illness Narrative [...] brought in by patient? No Lot #: [id number] Exp: 03/2026 Dilution: 5 units/0.1 ml (100 [...] Optional follow pain # units L R Major General 10 units divided in 2 sites XXXXXXX [...] Harman Sullivan MD documented in this encounter [facility] 11-01-2023 Telephone encounter Note We may need to start reserving some slots for Botox if I'm booking out more than 3 months. Is that something escalating to admin can accomplish? Maybe having like 3 follow up slots a week for botox that revert to regular if not booked a few weeks before that date. [facility] 11-01-2023 Miscellaneous Notes We may need to [...] 29 and after. documented in this encounter [facility] 10-31-2023 Note HNO ID: [id number] Author: HARMAN SULLIVAN MD Service: ? Author [...] BOTOX brought in by patient? No Lot #:[id number] Exp: 10/2025 Dilution: 5 units/0.1 ml (100 [...] Optional follow pain # units L R Major General 10 units divided in 2 sites XXXXXXX [...] in Treatment Plan? No Harman Sullivan MD [facility] 10-31-2023 History of Presen t illness Narrative [...] BOTOX brought in by patient? No Lot #:[id number] Exp: 10/2025 Dilution: 5 units/0.1 ml (100 [...] Optional follow pain # units L R Major General 10 units divided in 2 sites XXXXXXX [...] Harman Sullivan MD documented in this encounter [facility] 10-31-2023 Telephone encounter Note Placed at desk for review. [facility] 10-31-2023 Miscellaneous Notes Placed at desk for review. Patient brought in [facility] paperwork for Dr. Sullivan to fill out. Forms placed in providers mailbox. documented in this encounter [facility] 10-31-2023 Telephone encounter Note Patient needs a botox appointment slot opened anytime January 29 and after. [facility] 10-31-2023 Telephone encounter Note Patient brought in [facility] paperwork for Dr. Sullivan to fill out. Forms placed in providers mailbox. [facility] 10-19-2023 Telephone encounter Note Per Epic referral, Botox is approved. 10/16/23 to 10/14/24 200 units every 12 weeks Called patient, and she is agreeable to using the SunOctober 30 slot to get her Botox in [place]. Per Dr. Sullivan, she does not need to then also keep her November 05 appt. [facility] 10-19-2023 Miscellaneous Notes Per Epic referral, Botox is approved. 10/16/23 to 10/14/24 200 units every 12 weeks Called patient, and she is agreeable to using the SunOctober 30 slot to get her Botox in [place]. Per Dr. Sullivan, she does not need to then also keep her November 05 appt. Prior Authorization PENDING Medication/ Treatment: BOTOX Submitted Via Epic Referral Attempted to submit via phone to expedite request, but plan does not allow this. documented in this encounter [facility] 10-18-2023 Miscellaneous Notes Images from the original note were not included. Maria Del Carmen Borges APRN.DRESSMAKER OR TAILOR You6 minutes ago (8:35 AM) I can for this time, but Dr. Hernandez moving forward as he is managing her neck tightness. PRATIBHA Mccullough, RN, BA documented in this encounter [facility] 10-18-2023 Telephone encounter Note Images from the original note were not included. Maria Del Carmen Borges APRN.DRESSMAKER OR TAILOR You6 minutes ago (8:35 AM) I can for this time, but Dr. Hernandez moving forward as he is managing her neck tightness. PRATIBHA Mccullough, RN, BA [facility] Work Phone: 10-11-2023 Telephone encounter Note Prior Authorization PENDING Medication/ Treatment: BOTOX Submitted Via Epic Referral Attempted to submit via phone to expedite request, but plan does not allow this. [facility] 10-03-2023 Telephone encounter Note Images from the original note were not included. Maria Del Carmen Borges APRN.DRESSMAKER OR TAILOR You6 minutes ago (3:03 PM) As she is now working with movement disorder for this concern, I would defer this to their team. PRATIBHA Mccullough, RN, BA [facility] Work Phone: 10-03-2023 Miscellaneous Notes Images from the original note were not included. Maria Del Carmen Borges APRN.DRESSMAKER OR TAILOR You6 minutes ago (3:03 PM) As she is now working with movement disorder for this concern, I would defer this to their team. PRATIBHA Mccullough, RN, BA documented in this encounter [facility] 09-21-2023 Instructions Harman Sullivan MD - 09/21/2023 [...] can increase further documented in this encounter [facility] 09-21-2023 Telephone encounter Note Requested image transfer from [facility] for most recent head/ neck imaging. [facility] 09-21-2023 Note HNO ID: [id number] Author: HARMAN SULLIVAN MD Service: ? 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 [facility] 09-21-2023 History of Presen t illness Narrative [...] cervical dystonia, and RLS who [facility]. Her examination demonstrates normal head position [...] next month for Botox. Harman Sullivan MD [facility] Neurology documented in this encounter [facility] 09-21-2023 Miscellaneous Notes Requested image transfer from [facility] for most recent head/ neck imaging. documented in this encounter [facility] 09-13-2023 Telephone encounter Note Images from the original note were not included. Maria Del Carmen Borges, LONNY.DRESSMAKER OR TAILOR You 58 minutes ago (1:58 PM) Keep the appointment until she sees Dr. Sullivan on September 20. PRATIBHA Mccullough, RN, BA [facility] Work Phone: 09-13-2023 Miscellaneous Notes Images from the original note were not included. Maria Del Carmen Borges APRN.CNP You 58 minutes ago (1:58 PM) Keep the appointment until she sees Dr. Sullivan on September 20. PRATIBHA Mccullough, RN, BA documented in this encounter [facility] 09-04-2023 History of Presen t illness Narrative Brittanie Garcia is a 38 year old female. Patient presents with: Follow Up Today I had the opportunity to have a virtual visit with Brittanie Garcia I have communicated my name and active licensure. The patient's identity and physical location were verified at the time of this visit. Either the patient or their legal medical field representative has been informed of the risks [...] seeing the movement disorder clinic here at [facility] for an opinion about her cervical [...] which included preparing to see the patient, [id number] patient care, completing clinical documentation, obtaining and/or reviewing separately obtained history, and counseling and educating the patient/family/caregiver. There is no problem list on file for this patient. No orders found for this visit on 09/04/23. Maria Del Carmen Borges MSN, PROFESSOR OF GEOGRAPHY, MEDIA RELATIONS ASSOCIATE-C documented in this encounter [facility] 09-04-2023 Note HNO ID: [id number] Author: MARIA DEL CARMEN BORGES APRN.ZULMA Service: [...] visit. Either the patient or their legal medical field representative has been informed of the risks [...] seeing the movement disorder clinic here at [facility] for an opinion about her cervical [...] with her Mari (more content not included)... [facility] 02-19-2023 Miscellaneous Notes Images from the original note were not included. Maria Del Carmen Borges APRN.DRESSMAKER OR TAILOR You 1 minute ago (12:27 PM) Thank you. This is a normal value. PRATIBHA Louis, RN, BA Images from the original note were not included. Evonne GAMBOA BSN, RN, BA Scanned in medical records from [facility] for review documented in this encounter [facility] 02-09-2023 Miscellaneous Notes Images from the original note were not included. Maria Del Carmen Borges APRN.ZULMA You 2 minutes ago (10:23 AM) Reviewed. PRATIBHA Louis, RN, BA Scanneed in medical records from [facility] for review documented in this encounter [facility] 01-19-2023 Miscellaneous Notes Images from the original note were not included. Maria Del Carmen Borges APRN.DRESSMAKER OR TAILOR You 21 minutes ago (8:34 AM) I sent cyclobenzaprine (Flexeril) 5 mg at bedtime as needed PRATIBHA Mccullough, RN, BA documented in this encounter [facility] 01-12-2023 History of Presen t illness Narrative [...] Most likely receiving 65 units between procerus, rubber compounder mixer, frontalis, and temporalis muscles. Only receiving 90 [...] Tizanidine Methocarbamol Metaxalone Carisoprodol She does have [place] prescribed for the neck pain. 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 Finger extensor 5/5. Finger flexor 5/5. Pronation [...] clonus of ankles. Coordination: Finger-to- nose-finger and [id number] intact bilaterally. No ataxia of arms. No [...] seeing the movement disorder clinic here at [facility] for an opinion about her cervical [...] which included preparing to see the patient, [id number] patient care, completing clinical documentation, obtaining and/or reviewing separately obtained history, performing a medically appropriate examination, counseling and educating the patient/family/caregiver, and ordering medications, tests, or procedures. There is no problem list on file for this patient. Office Visit on 01/12/23 CBC FERRITIN BLD IRON + TIBC VITAMIN B12 BLOOD COMP METABOLIC PANEL CONSULT TO NEUROLOGY Maria Del Carmen Borges MSN, PROFESSOR OF GEOGRAPHY, MEDIA RELATIONS ASSOCIATE-C 1. The nursing staff and medical assistants [...] your PCP/referring physician documented in this encounter [facility] 08-11-2022 Instructions Nayely Limon APRN.CNP - 08/11/2022 10:44 AM EDT Please send MRI result to us. Placed a consult for neuromuscular. Please call [phone] for appointments. I would suggest to bring your MRI (CD) to this appointment. Placed a consult for functional medicine. Please call [phone] for appointments. Follow up as needed documented in this encounter [facility] 08-11-2022 History of Presen t illness Narrative Images from the original note were not included. Rheumatology FOLLOW UP VISIT Date of Service: 08/11/2022 Patient: Brittanie Garcia Medical Record: [id number] Primary Care Physician: Filiberto Ying MD Last Rheumatology visit: 07/28/2022 (with Nayely Limon) I have communicated my name and active licensure. The patient's identity and physical location were verified at the time of this visit. 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 Started Seeing pain management since April for headache and neck pain. She has [place] takes once a week. Hx of restless [...] Clinical Fibromyalgia Diagnostic Criteria questionnaire Questionnaire scores: [place] sleepiness scale: 15 (Normal < 10) MDQ (mood disorder questionnaire): 6 (Normal < 7) PHQ (patient health questionnaire): depression 10 (Normal < 5), anxiety 9 (Normal < 5) Fibromyalgia evaluation: Wide spread pain scale (WPI) 7, symptom severity (SS) 9 The patient meets the 2016 ACR ([place] [employer]) revised criteria for fibromyalgia [...] an optimal response to treatment. Nayely Limon APRN.DRESSMAKER OR TAILOR Return if symptoms worsen or fail to [...] Time: 8:44 AM documented in this encounter [facility] 07-28-2022 Instructions Nayely Limon APRN.CNP - 07/28/2022 1:58 PM EST Obtain lab and XR today Follow up in 10-14 days documented in this encounter [facility] 07-28-2022 History of Presen t illness Narrative Images from the original note were not included. Rheumatology CONSULTATION Date of Service: 07/28/2022 Patient: Brittanie Garcia Medical Record: [id number] Primary Care Physician: Filiberto Ying MD, MD Last Rheumatology visit: 07/28/2022 (with Nayely Limon) Referring Provider: Kenna Sheehan [address] [place] [id number] Brittanie Garcia is here today at request of Kenna Sheehan PA-C specifically for consultation of my opinion in regards to the chief complaint listed below. 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 Started Seeing pain management since April for headache and neck pain. She has [place] takes once a week. Hx of restless [...] Take 1 mg by mouth once daily. [id number]-Vi-Cht-Fe-[id number] (P-D CARTER PLUS) Tab Take 1 tablet [...] - XR CHEST 2V FRONTAL/LAT Nayely Limon APRN.DRESSMAKER OR TAILOR Return in about 10 days (around 08/07/2022). I spent a total of 75 minutes on the date of the service which included preparing to see the patient, [id number] patient care, completing clinical documentation, obtaining and/or reviewing separately obtained history, performing a medically appropriate examination, counseling and educating the patient/family/caregiver, and ordering medications, tests, or procedures. Medical Decision Making: Problems: Low: Stable chronic illness Data: Unique test(s) ordered: 3+ Assessment requiring an independent historian(s) Risk: Moderate: Moderate risk from testing/treatment Medical Decision Making Level: 4 - Moderate Nayely Limon APRN.ZULMA Rheumatology Date: July 26, 2022 Time: 2:07 PM documented in this encounter [facility] 07-06-2022 Note CONSULTATION CONSULTATION DATE: 07/06/2022 HISTORY [...] no difference. She was also started on [place] 5/325 daily p.r.n., which she says is helpful. We obtained a cervical x-ray back in January, which shows very minimal pathology between C2 and C3 discs. At this time, procedures are not indicated. Medications includes [place] 5/325 daily, baclofen 10 mg b.i.d., Ambien [...] time, our clinic will just maintain her [place] 5/325 daily p.r.n. She will continue for treatments with [facility]. I did recommend, however, to continue with self massage and to trial home cervical traction. We will see the patient in three months' time to maintain her medications and patient is in agreement. [facility] 04-06-2022 Note CONSULTATION PAIN MANAGEMENT CONSULTATION [...] stated that today she has seen an heel scourer due to having lock jaw episodes. Activities that aggravate her pain are working on the computer, lying down, button grader hours and sleep. She describes her headaches [...] as she agrees to this plan. [facility] 03-02-2022 Note CONSULTATION CONSULTATION DATE: 03/02/2022 [...] Activities such as pushing, pulling, lying down, button grader hours and housework aggravate her pain. The [...] and all questions are answered today. [facility] 02-16-2022 Note CONSULTATION CONSULTATION DATE: 02/16/2022 [...] worsened at that time. 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 [facility] Chief complaint Narrative - Reported BRITTANIE [...] Notably she has no rebound tachycardia.Recommendations, obtain [employer] monitoring, tilt table test, refer to either EP or syncope clinic, I can follow-up on a as needed basis, as there is no interventional necessity at this time [facility] Work Phone: Chief complaint Narrative - Reported [...] Notably she has no rebound tachycardia.Recommendations, obtain [employer] monitoring, tilt table test, refer to either EP or syncope clinic, I can follow-up on a as needed basis, as there is no interventional necessity at this time [facility] Work Phone: Chief complaint Narrative [...] Notably she has no rebound tachycardia.Recommendations, obtain [facility] monitoring, tilt table test, refer to either EP or syncope clinic, I can follow-up on a as needed basis, as there is no interventional necessity at this time [facility] Work Phone: Chief complaint Narrative [...] is no interventional necessity at this time [facility] Work Phone: Evaluation note No assessment inform ation available [facility] Work Phone: Evaluation note Diagnosis Neck pain, chronic Cervicalgia [facility] Neck pain, chronic- Primary Cervicalgia [facility] Diagnosis Neck pain, chronic- Primary Cervicalgia Fibromyalgia Mylagia and myositis, unspecified [facility] Diagnosis Cervical dystonia- Primary Spasmodic torticollis Neck tightness Unspecified musculoskeletal disorders and symptoms referable to neck RLS (restless legs syndrome) Restless legs syndrome (RLS) [facility] Diagnosis Onset Date Resolution Status Left breast mass acute [facility] Work Phone: Evaluation note* Diagnosis Cervical dystonia- Primary Spasmodic torticollis [facility] Diagnosis Chronic migraine without aura, with intractable migraine, so stated, with status migrainosus- Primary Neck pain Cervicalgia RLS (restless legs syndrome) Restless legs syndrome (RLS) [facility] Diagnosis Chronic migraine without aura, with intractable migraine, so stated, with status migrainosus- Primary Neck pain Cervicalgia [facility] Diagnosis Chronic migraine without aura, with intractable migraine, so stated, with status migrainosus- Primary Neck pain Cervicalgia [facility] Discharge instructions Additional Instructions DISCHARGE INSTRUCTIONS [...] directed for pain unless a prescription was provided.[facility] Work Phone: [facility] for referral (narrative)* Diagnostic Procedure Only (Routine) - Closed Specialty Diagnoses / Procedures Referred By Contac t Referred To Contact XR IMAGING Diagnoses Neck pain, chronic Procedures XR CERV OTHER 4V AP/LAT/OBL RADEX SPINE CERVICAL 4 OR 5 VIEWS Nayely Limon APRN.CNP [address] [place] [address] Xr Imaging Referral ID Status Reason Start Date Expiration Date V isits Requested Visits Authorized [id number] Closed Auto-Generate d Referral 07/28/2022 08/27/2023 1 1 [facility] for referral (narrative)* Diagnostic Procedure Only (Routine) - Closed Specialty Diagnoses / Procedures Referred By Contac t Referred To Contact XR IMAGING Diagnoses Neck pain, chronic Procedures XR CERV OTHER 4V AP/LAT/OBL RADEX SPINE CERVICAL 4 OR 5 VIEWS Nayely Limon APRN.CNP [address] [place] [id number] Xr Imaging Referral ID Status Reason Start Date Expiration Date V isits Requested Visits Authorized [id number] Closed Auto-Generate d Referral 07/28/2022 08/27/2023 1 [facility] Diagnostic Procedure Only (Routine) - Closed Specialty Diagnoses / Procedures Referred By Ross t Referred To Contact XR IMAGING Diagnoses Neck pain, chronic Procedures XR CERV OTHER 4V AP/LAT/OBL RADEX SPINE CERVICAL 4 OR 5 VIEWS Nayely Limon APRN.DRESSMAKER OR TAILOR [address] [place] [address] Xr Imaging Referral ID Status Reason Start Date Expiration Date V isits Requested Visits Authorized [id number] Closed Auto-Generate d Referral 07/28/2022 08/27/2023 1 1 [facility] Chief Complaint and Reason for Visit Chief [...] Referral Specialty Diagnoses / Procedures Referred By Ross t Referred To Contact Neurology Diagnoses Neck pain, chronic Procedures CONSULT TO NEUROLOGY OFFICE/OUTPATIENT [facility] 60-74 MINUTES Nayely Limon APRN.DRESSMAKER OR TAILOR [address] [phone] Referral ID Status Reason Start Date Expiration Date Visits Requested Visits Authorized [id number] Authorized PCP Requested Referral 08/11/2022 08/11/2023 1 1 Specialty Diagnoses / Procedures Referred By Contac t Referred To Contact Diagnoses Fibromyalgia Procedures CONSULT TO FUNCTIONAL MEDICINE OFFICE/OUTPATIENT [facility] MDM 60-74 MINUTES Nayely Limon APRN.DRESSMAKER OR TAILOR [address] [phone] Referral ID Status Reason Start Date Expiration Date Visits Requested Visits Authorized [id number] Authorized PCP Requested Referral 08/11/2022 08/11/2023 1 1 Specialty Diagnoses / Procedures Referred By Contac t Referred To Contact Neurology Diagnoses Cervical dystonia Neck tightness Procedures CONSULT TO NEUROLOGY OFFICE/OUTPATIENT [facility] 60-74 MINUTES Maria Del Carmen Borges, LONNY.DRESSMAKER OR TAILOR [address] [place] [address] Referral ID Status Reason Start Date Expiration Date Visits Requested Visits Authorized [id number] Pending Review PCP Requested Referral 01/12/2023 01/12/2024 1 1 Specialty Diagnoses / Procedures Referred By Contac t Referred To Contact Neurology Diagnoses Cervical dystonia Procedures CONSULT TO NEUROLOGY OFFICE/OUTPATIENT [facility] 60 MINUTES JonyMaria Del Carmen, LONNY.DRESSMAKER OR TAILOR [address] [place] [address] Referral ID Status Reason Start Date Expiration Date Visits Requested Visits Authorized [id number] Authorized PCP Requested Referral 09/04/2023 09/03/2024 1 1 Summary Purpose Family History Unknown Family Member Name Dates Details Family history of migraine h eadaches: Mother(V17.2, Z82.0) Status:Active Family history of hyperlipid emia: Father(V18.19, Z83.438) Status:Active Hypertension, benign: Father Status:Active No Family History Records Found Additional Source Comments Care Teams (unrecognized sec tion and content) Team Status: Active Member Role Status Jazmine Ying MD Primary Care Provider Active Team Status: Inactive Member Role Status Jazmine Ying MD Primary Care Provider Active Roseanne Castellanos DO Attending Provider Active Romero Jones MD Referring Provider Active Team Status: Inactive Member Role Status Jazmine Ying MD Primary Care Provider Active Dano Mcdaniel DO Attending Provider Active Team Status: Inactive Member Role Status Jazmine Ying MD Primary Care Provider Active Kenna Sheehan PA-C Attending Provider Active Inventory Control Analyst Relationship Specialty Start Date End Date Filiberto Ying MD PCP - General Family Medicine 06/05/12 Kenna Sheehan PA-C [address] [address] Referring Neurology 07/19/22 Inventory Control Analyst Relationship Specialty Start Date End Date Filiberto Ying MD PCP - General Family Medicine 06/05/12 Kenna Sheehan PA-C [address] [address] Referring Neurology 07/19/22 Inventory Control Analyst Relationship Specialty Start Date End Date Filiberto Ying MD PCP - General Family Medicine 06/05/12 Kenna Sheehan PA-C [address] [address] Referring Neurology 07/19/22 Inventory Control Analyst Relationship Specialty Start Date End Date Filiberto Ying MD PCP - General Family Medicine 06/05/12 Kenna Sheehan PA-C [address] [address] Referring Neurology 07/19/22 Inventory Control Analyst Relationship Specialty Start Date End Date Filiberto Ying MD PCP - General Family Medicine 06/05/12 Kenna Sheehan PA-C [address] [address] Referring Neurology 07/19/22 Inventory Control Analyst Relationship Specialty Start Date End Date Filiberto Ying MD PCP - General Family Medicine 06/05/12 Kenna Sheehan PA-C [address] [phone] Referring Neurology 07/19/22 Inventory Control Analyst Relationship Specialty Start Date End Date Filiberto Ying MD PCP - General Family Medicine 06/05/12 Kenna Sheehan PA-C [address] [place] [phone] Referring Neurology 07/19/22 Team Status: Inactive Member Role Status Dates Filiberto Ying MD Primary Care Provider Active Maria Del Carmen Borges APRN [facility] Attending Provider Active Inventory Control Analyst Relationship Specialty Start Date End Date Filiberto Ying MD PCP - General Family Medicine 06/05/12 Kenna Sheehan PA-C [address] [id number] Referring Neurology 07/19/22 Inventory Control Analyst Relationship Specialty Start Date End Date Filiberto Ying MD PCP - General Family Medicine 06/05/12 Kenna Sheehan PA-C [address] [phone] Referring Neurology 07/19/22 Inventory Control Analyst Relationship Specialty Start Date End Date Filiberto Ying MD PCP - General Family Medicine 06/05/12 Kenna Sheehan PA-C [address] [address] Referring Neurology 07/19/22 Inventory Control Analyst Relationship Specialty Start Date End Date Filiberto Ying MD PCP - General Family Medicine 06/05/12 Kenna Sheehan PA-C [address] [address] Referring Neurology 07/19/22 Inventory Control Analyst Relationship Specialty Start Date End Date Filiberto Ying MD PCP - General Family Medicine 06/05/12 Kenna Sheehan PA-C [address] [place] [address] Referring Neurology 07/19/22 Inventory Control Analyst Relationship Specialty Start Date End Date Filiberto Ying MD PCP - General Family Medicine 06/05/12 Kenna Sheehan PA-C [address] [phone] Referring Neurology 07/19/22 Inventory Control Analyst Relationship Specialty Start Date End Date Filiberto Ying MD PCP - General Family Medicine 06/05/12 Kenna Sheehan PA-C [address] [place] [phone] Referring Neurology 07/19/22 Team Status: Inactive Member Role Status Dates Filiberto Ying MD Primary Care Provider Active Start: January 28, 2024 End: January 28, 2024 Dano Mcdaniel DO Attending Provider Active Start: January 28, 2024 End: January 28, 2024 Inventory Control Analyst Relationship Specialty Start Date End Date Filiberto Ying MD PCP - General Family Medicine 06/05/12 Kenna Sheehan PA-C [address] [place] [address] Referring Neurology 07/19/22 Goals (unrecognized section and [...] or prosecute any alcohol or drug abuse patient.[facility] the event this information is protected by the Federal Confidentiality of Alcohol and Drug Abuse Patient Records regulations: The Federal rules restrict any use of the information to criminally investigate or prosecute any alcohol or drug abuse patient.[facility] the event this information is protected by the Federal Confidentiality of Alcohol and Drug Abuse Patient Records regulations: The Federal rules restrict any use of the information to criminally investigate or prosecute any alcohol or drug abuse patient.[facility] the event this information is protected by the Federal Confidentiality of Alcohol and Drug Abuse Patient Records regulations: The Federal rules restrict any use of the information to criminally investigate or prosecute any alcohol or drug abuse patient.[facility] the event this information is protected by the Federal Confidentiality of Alcohol and Drug Abuse Patient Records regulations: The Federal rules restrict any use of the information to criminally investigate or prosecute any alcohol or drug abuse patient.[facility] the event this information is protected by the Federal Confidentiality of Alcohol and Drug Abuse Patient Records regulations: The Federal rules restrict any use of the information to criminally investigate or prosecute any alcohol or drug abuse patient.[facility] the event this information is protected by the Federal Confidentiality of Alcohol and Drug Abuse Patient Records regulations: The Federal rules restrict any use of the information to criminally investigate or prosecute any alcohol or drug abuse patient.[facility] the event this information is protected by the Federal Confidentiality of Alcohol and Drug Abuse Patient Records regulations: The Federal rules restrict any use of the information to criminally investigate or prosecute any alcohol or drug abuse patient.[facility] the event this information is protected by the Federal Confidentiality of Alcohol and Drug Abuse Patient Records regulations: The Federal rules restrict any use of the information to criminally investigate or prosecute any alcohol or drug abuse patient.[facility] the event this information is protected by the Federal Confidentiality of Alcohol and Drug Abuse Patient Records regulations: The Federal rules restrict any use of the information to criminally investigate or prosecute any alcohol or drug abuse patient.[facility] the event this information is protected by the Federal Confidentiality of Alcohol and Drug Abuse Patient Records regulations: The Federal rules restrict any use of the information to criminally investigate or prosecute any alcohol or drug abuse patient.[facility] the event this information is protected by the Federal Confidentiality of Alcohol and Drug Abuse Patient Records regulations: The Federal rules restrict any use of the information to criminally investigate or prosecute any alcohol or drug abuse patient.[facility] the event this information is protected by the Federal Confidentiality of Alcohol and Drug Abuse Patient Records regulations: The Federal rules restrict any use of the information to criminally investigate or prosecute any alcohol or drug abuse patient.[facility] the event this information is protected by the Federal Confidentiality of Alcohol and Drug Abuse Patient Records regulations: The Federal rules restrict any use of the information to criminally investigate or prosecute any alcohol or drug abuse patient.[facility] the event this information is protected by the Federal Confidentiality of Alcohol and Drug Abuse Patient Records regulations: The Federal rules restrict any use of the information to criminally investigate or prosecute any alcohol or drug abuse patient.[facility] the event this information is protected by the Federal Confidentiality of Alcohol and Drug Abuse Patient Records regulations: The Federal rules restrict any use of the information to criminally investigate or prosecute any alcohol or drug abuse patient.[facility] the event this information is protected by the Federal Confidentiality of Alcohol and Drug Abuse Patient Records regulations: The Federal rules restrict any use of the information to criminally investigate or prosecute any alcohol or drug abuse patient.[facility] the event this information is protected by the Federal Confidentiality of Alcohol and Drug Abuse Patient Records regulations: The Federal rules restrict any use of the information to criminally investigate or prosecute any alcohol or drug abuse patient.[facility] the event this information is protected by the Federal Confidentiality of Alcohol and Drug Abuse Patient Records regulations: The Federal rules restrict any use of the information to criminally investigate or prosecute any alcohol or drug abuse patient.[facility] the event this information is protected by the Federal Confidentiality of Alcohol and Drug Abuse Patient Records regulations: The Federal rules restrict any use of the information to criminally investigate or prosecute any alcohol or drug abuse patient.[facility] the event this information is protected by the Federal Confidentiality of Alcohol and Drug Abuse Patient Records regulations: The Federal rules restrict any use of the information to criminally investigate or prosecute any alcohol or drug abuse patient.[facility] the event this information is protected by the Federal Confidentiality of Alcohol and Drug Abuse Patient Records regulations: The Federal rules restrict any use of the information to criminally investigate or prosecute any alcohol or drug abuse patient.[facility] Reason for Visit (unrecogniz ed section and content) Reason Comments Neck Pain Reason Comments Neck Pain Follow up Reason Comments New Patient Reason Comments Results [facility] Reason Comments Results [facility] Reason Comments Follow Up Reason Onset Date Comments Refill Request 09/15/2023 Reason Comments Request Outside Medical Records Reason Comments Cervical Dystonia Specialty Diagnoses / Procedures Referred By Contac t Referred To Contact Neurology Diagnoses Cervical dystonia Procedures CONSULT TO NEUROLOGY OFFICE/OUTPATIENT [facility] 60 MINUTES Maria Del Carmen Borges, PROFESSOR OF GEOGRAPHY.DRESSMAKER OR TAILOR [id number] [place] [address] Referral ID Status Reason Start Date Expiration Date V isits Requested Visits Authorized [id number] Closed PCP Requested Referral 09/04/2023 09/03/2024 1 1 Reason Onset Date Comments Refill Request 10/18/2023 Reason Comments Insurance Authorization Botox Reason Comments Botox Injection Specialty Diagnoses / Procedures Referred By Contac t Referred To Contact ADULT NEUROLOGY Diagnoses Chronic migraine without aura, intractable, with status migrainosus Procedures BOTULINUM TOXIN A PER 1 UNIT CHEMODERVATE FACIAL/TRIGEM/CERV MUSC MIGRAINE Harman Sullivan MD [address] [place] [address] [place] [address] Neur [address] [facility] [place] [place] [address] Referral ID Status Reason Start Date Expiration Date V isits Requested Visits Authorized [id number] Authorized 10/11/2023 10/14/2024 99 99 Reason Comments Appointment INFORMATION SOURCE (unrecogn ized section and content) DATE CREATED AUTHOR 09/07/2022 [facility] DATE CREATED AUTHOR AUTHOR'S ORGANIZ ATION 11/15/2022 [employer] DATE CREATED AUTHOR AUTHOR'S ORGANIZ ATION 01/01/2023 [facility] DATE CREATED AUTHOR AUTHOR'S ORGANIZ ATION 02/04/2023 [facility] DATE CREATED AUTHOR AUTHOR'S ORGANIZ ATION 07/30/2023 [facility] DATE CREATED AUTHOR AUTHOR'S ORGANIZ ATION 01/30/2024 [facility] DATE CREATED AUTHOR AUTHOR'S ORGANIZ ATION 02/01/2024 [facility] DATE CREATED AUTHOR AUTHOR'S ORGANIZ ATION 02/22/2024 [facility] FOR RECORDS PERTAINING TO PATIENTS WHO [...] BE BASED ON THE PRIMARY CLINICAL RECORDS. [facility] [employer] provides no warranty or guarantee of the accuracy or completeness of information in this document.
--- NOTE | 2024-04-16 06:50 | MR_ITS ---
[address] [address] Patient Name: SHEILA GARCIA MRN: [id number] date: 1985 Sex: F Assigned Patient Location: MRI Current Patient Location: Accession/Order Number: [id number] Exam Date: 04/16/2024 06:50 Report Date: 04/17/2024 08:39 At the request of: DESMOND LEAVITT Procedure: MR cervical spine wo con EXAMINATION: MR cervical spine wo con HISTORY: cervical degenerative disc disease M50.20 ; chronic neck pain COMPARISON: XR C-spine 02/16/2022 TECHNIQUE: A variety of imaging planes and parameters were utilized for visualization of suspected pathology without and/or with intravenous Dotarem contrast based on examination type. FINDINGS: CRANIOCERVICAL AREA: Normal foramen magnum with no Chiari malformation. PARASPINAL AREA: Normal with no visible mass. BONES: Slight reversal of normal lordotic curvature. No fracture, spondylolisthesis, bone lesion. CORD: Normal caliber, contour, and signal intensity. CERVICAL DISC LEVELS: C2-C3: No significant disc/facet abnormality, spinal stenosis, or foraminal stenosis. C3-C4: Early degenerative disc disease is present without focal protrusion or neural impingement. C4-C5: Early degenerative disc disease is present without focal protrusion or neural impingement. C5-C6: Early degenerative disc disease is present without focal protrusion or neural impingement. C6-C7: Early degenerative disc disease is present without focal protrusion or neural impingement. C7-T1:. No significant disc/facet abnormality, spinal stenosis, or foraminal stenosis. MR/MR cervical spine wo con IMPRESSION: 1. Multilevel mild early degenerative disc disease/disc bulging. No significant central canal or foraminal stenosis to account for patient's symptoms. 2. Slight reversal of normal lordotic curvature cervical spine; positioning versus muscle spasm. Electronically authenticated by: NAVNEET MONTERO Date: 04/17/2024 08:39
--- OUTSIDE RECORDS SUMMARY | 2024-04-16 06:51 | XMS_ITS | CCD ---
Author Organization [facility] CliniSyfl Care Team Providers Care Powder Mixer Name Role Phone MD Filiberto Ying Primary Care Provider [phone] PURVI Sheehan Attending Provider [phone] ., DR DE LOS SANTOS [...] Provider DO Dano Mcdaniel Attending Provider [phone] DO Roseanne Castellanos Attending Provider MD Romero [...] [phone] MD Filiberto Ying Primary Care Provider [phone] EDENILSON, DANO H Attending Unavailable HOY, FILIBERTO M Referring Unavailable VALERIO SANZ Attending Unavailable Filiberto Ying MD Primary Care Provider [phone] MD Filiberto Ying Primary Care Provider [phone] DO Dano Mcdaniel Attending Provider [phone] Maria Del Carmen Borges Attending Unavailable Maria [...] Caffeine; Translations: [Caffeine] Drug Allergy 3 Vomiting [facility] (20 sources) DHE; Translations: [Dhe] Allergy to substance 3 Shortness of Breath [facility] (20 sources) Adhesive agent; Translations: [ADHESIVE] Propensity to adverse reactions to drug 3 Other: See Asa, Yamilet [facility] (15 sources) Adhesive Tape Allergy to substance (finding) 3 [facility] (9 sources) prasterone; Translations: [DHEA CAPS] Drug Allergy -[facility] [place] [address] DO Work Phone: (15 sources) Metoprolol; Translations: [METOPROLOL] Drug Allergy 3 Swelling [facility] (2 sources) Metoclopramide Drug Allergy 3 Worsens restless leg [facility] Medications Current Medications Medication Drug Class(es) [...] tablet by mouth every eight hours Hydrocodone-Acetaminophen ([place]) 5-325 mg tablet Discontinued 1 TAB PO [...] 37.5 mg by mout h once daily. Nvhhsdkp-Fr-Lrg-Fe-FA (P-D CARTER PLUS) Tab (2 sources) End: 08-02-19 23 take 1 tablet by mouth once daily Ajjiipog-Ha-Psl-Fe- FA (P-D PLUS) Tab Take 1 tablet by mouth once daily. 0 08/01/2022 Discontinued (Course of therapy completed) take 1 tablet by mouth once ute y Nrikawzk-Kt-Ajj-Fe-FA (P-D CARTER PLUS) Tab Take 1 tablet [...] Range Facility CNOVon 01-30-2024 CNOV Office Visit ([facility] ) BRITTANIE GARCIA ([id number]) 1985 F Date Time Provider Department 01/30/24 2:00 PM HARMAN SULLIVAN [facility] During your visit today, we recorded [...] brought in by patient? No Lot #: [id number] Exp: 03/2026 Dilution: 5 units/0.1 ml (100 [...] Optional follow pain # units L R Textile Supervisor 10 units divided in 2 sites XXXXXXX [...] Harman Sullivan MD Referring Provider: HARMAN SULLIVAN [[id number]] Allergies As of Date: 01/30/2024 Noted Allergy [...] for Encounter Date Provider Department Center 01/30/2024 [id number], TED [facility] Encounter Status:Closed by HARMAN SULLIVAN on 01/30/24 Normal [facility] US breast RT limitedon 01-27 US breast RT limited [place] [address] Ultrasound Report Signed Patient: Brittanie Garcia MR#: [id number] : 1985 Acct:[id number] Age/Sex: 39 / F ADM Date: 01/28/24 Loc: [facility] Room: Type: [facility] Attending Dr: Dano Mcdaniel DO Ordering Provider: [...] Binta Elaine M.D.01/28/2024 8:30 AM Dictation Location: [facility] Tech: Alayna Choudhary Transcribed By: JADEN 01/28/24829 Dictated By: Binta Elaine MD 01/28/24811 Signed By: 01/28/24829 Normal [facility] CNOVon 10-31-2023 CNOV Office Visit ([facility] ) BRITTANIE GARCIA ([id number]) 1985 F Date Time Provider Department 10/31/23 10:30 AM HARMAN SULLIVAN [facility] During your visit today, we recorded [...] BOTOX brought in by patient? No Lot #:[id number] Exp: 10/2025 Dilution: 5 units/0.1 ml (100 [...] Optional follow pain # units L R Textile Supervisor 10 units divided in 2 sites XXXXXXX [...] Harman Sullivan MD Referring Provider: HARMAN SULLIVAN [[id number]] Allergies As of Date: 10/31/2023 Noted Allergy [...] for Encounter Date Provider Department Center 10/31/2023 [id number], TED [facility] Encounter Status:Closed by HARMAN SULLIVAN on 10/31/23 [facility] Salima 10-31-2023 EVELINE Telephone ([facility]) BRITTANIE GARCIA ([id number]) 1985 F Date Time Provider Department 10/31/23 HARMAN SULLIVAN [facility] During your visit today, we recorded [...] Status:Closed by ESVIN VELAZQUEZ on 12/06/23 Normal [facility] Telephone ([facility]) GARCIA,KEISHA ([id number]) 1985 F Date Time Provider Department 10/31/23 HARMAN SULLIVAN [facility] During your visit today, we recorded the following information about you: Esvin Velazquez 10/31/2023 11:03 AM Signed Patient brought in [facility] paperwork for Dr. Sullivan to fill out. [...] Status:Closed by ESVIN VELAZQUEZ on 12/03/23 Normal [facility] Salima 10-11-2023 CNPN Telephone ([facility]) BRITTANIE GARCIA ([id number]) 1985 F Date Time Provider Department 10/11/23 HARMAN SULLIVAN [facility] During your visit today, we recorded [...] 30 slot to get her Botox in [place]. Per Dr. Sullivan, she does not need to then also keep her November 05 appt. Manolo Luther MA 10/22/2023 8:14 AM Signed Prior Auth Determination: Approved Medication/ Treatment: BOTOX Authorization Information/ Time Range: Botox, J0585 Approval Date Range: 10/16/2023 to 10/14/2024 Approval #: [id number] Dose AND Frequency: 200 units Q 12 [...] Encounter Status:Closed by PALLAVI DURON on 10/19/23 [facility] CNOVon 09-21-2023 CNOV Office Visit ([facility] ) BRITTANIE GARCIA ([id number]) 1985 F Date Time Provider Department 09/21/23 8:30 AM HARMAN SULLIVAN [facility] During your visit today, we recorded [...] Actual fi (more content not included)... Normal [facility] 09-21-2023 [facility] Telephone ([facility]) BRITTANIE GARCIA ([id number]) 1985 F Date Time Provider Department 09/21/23 HARMAN SULLIVAN [facility] During your visit today, we recorded the following information about you: Manolo Luther MA 09/21/2023 8:46 AM Signed Requested image transfer from [facility] for most recent head/ neck imaging. Manolo Luther MA 09/21/2023 2:42 PM Signed Faxed record request form to [facility] [phone]. Manolo Luther MA 10/03/2023 3:08 PM Signed RECORDS RECEIVED via FAX: From: [facility] Placed at desk/tray [...] Reason for Visit: Request Outside Medical Records [[id number]] Prescriptions as of 10/03/2023 - baclofen 10 [...] Encounter Status:Closed by MANOLO LUTHER on 09/21/23 [facility] 05-15-2023 L ------- Specimen: [id number] Received: 05/15/23 Status: MG Clemente Num: [id number] Spec Type: Surgical Subm Dr: Dano Mcdaniel [...] Location Account Attending Physician Brittanie Garcia 38/F [place] [id number] Dano Mcdaniel, SPEC NUM: [id number] RECD: 05/15/23 STATUS: MG CLEMENTE NUM: [id number] TACOS: 05/15/[address]: Dano Mcdaniel, ENTERED: 05/15/[address] [facility] [address]: SPEC TYPE: Surgical DEPT: S [...] show some diminished staining of myoepithelial Specimen: [id number] Received: 05/15/23 Status: MG Izquierdojustice Num: [id number] Spec Type: Surgical Subm Dr: Dano Mcdaniel [...] Gross/Micro L4/4, E CADHERIN Patient: Brittanie Garcia [id number] (Continued) Specimen: [id number] Received: 05/15/23 (Continued) Pathological Diagnosis (Continued) Signed (signature on file) Dany Fonseca MD 05/17/23 1723 Specimen: [id number] Received: 05/15/23 Status: MG Clemente Num: [id number] Spec Type: Surgical Subm Dr: Dano Mcdaniel, [...] Gross/Micro L4/4, E CADHERIN Patient: Brittanie Garcia [id number] (Continued) Specimen: [id number] Received: 05/15/23 (Continued) Pathological Diagnosis (Continued) cells, and otherwise without definitive features of lobular intraepithelial neoplasm identifiable -Also no evidence of malignancy or atypical epithelial hyperplasia identified C. Left ni (more content not included)... Normal [facility] Basic Metabolic Panelon 04-20 GFR/1.73 sq M.predicted MDRD (S/P/Bld) [Vol rate/Area] mL/min/{1.73_m2} Normal [facility] Comment on above: Performed By: #### B MP #### [address] Calcium [Mass/volume] in Ser um or PlasmaOrdered By: Dano Mcdaniel on 05-01-2023 Calcium [Mass/Vol] 9.7 mg/dL Normal 8.6-10.3 [facility] Comment on above: Result Comment: PERF ORMED BY: [place] [address] PATHOLOGIST CURING OVEN TENDER ROSSI POND M.D. Performed By: #### B MP #### [place] [address] [place] Carbon dioxide, total [Moles /volume] in Serum or PlasmaOrdered By: Dano Mcdaniel on 05-01-2023 CO2 [Moles/Vol] 28.9 mmol/L Normal 21.0-31.0 [facility] Comment on above: Performed By: #### B MP #### [place] [address] [place] Chloride [Moles/volume] in S leticia or PlasmaOrdered By: Dano Mcdaniel on 05-01-2023 Chloride [Moles/Vol] 105 mmol/L Normal 98-107 [facility] Comment on above: Performed By: #### B MP #### [place] [address] [place] Creatinine [Mass/volume] in Serum or PlasmaOrdered By: Dano Mcdaniel on 05-01-2023 Creatinine [Mass/Vol] 0.75 mg/dL Normal 0.60-1.20 [facility] Comment on above: Performed By: #### B MP #### [place] [address] [place] Glucose [Mass/volume] in Ser um or PlasmaOrdered By: Dano Mcdaniel on 05-01-2023 Glucose [Mass/Vol] 84 mg/dL Normal 70-100 [facility] Comment on above: ADA recommended refe rence rangeRandom Glucose Reference Range is dependent on time and content of last meal. Glucose of more than 200 mg/dL in a nonstressed, ambulatory subject supports the diagnosis of Diabetes Mellitus. Result Comment: [place] om Glucose Reference Range is dependent on time and content of last meal. Glucose of more than 200 mg/dL in a nonstressed, ambulatory subject supports the diagnosis of Diabetes Mellitus. ADA recommended reference range Performed By: #### B MP #### [address] No Panel InformationOrdered By: Dano Mcdaniel on 05-01-2023 Estimated GFR (CKD-EPI) > 60.0 mL/Min [facility] Creatinine Clearance (Chem N/A [facility] Potassium [Moles/volume] in Serum or PlasmaOrdered By: Dano Mcdaniel on 05-01-2023 Potassium [Moles/Vol] 4.3 mmol/L Normal 3.5-5.1 [facility] Comment on above: Performed By: #### B MP #### [address] Serum or plasma anion gap de terminationOrdered By: Dano Mcdaniel on 05-01-2023 Anion gap [Moles/Vol] 9.4 mmol/L Normal 6.0-15.0 [facility] Comment on above: Performed By: #### B MP #### [address] Sodium [Moles/volume] in Ser um or PlasmaOrdered By: Dano Mcdaniel on 05-01-2023 Sodium [Moles/Vol] 139 mmol/L Normal 136-145 [facility] Comment on above: Performed By: #### B MP #### [address] Urea nitrogen [Mass/volume] in Serum or PlasmaOrdered By: Dano Mcdaniel on 05-01-2023 Urea nitrogen [Mass/Vol] 14 mg/dL Normal 7-25 [facility] Comment on above: Performed By: #### B MP #### [address] SURGICAL PATHOLOGY REFERENCE LAB CONSULTon 04-11-2023 CASE REPORT Normal [facility] Comment on above: Order Comment: Speci men Type: FORMALIN-FIXED PARAFFIN-EMBEDDED TISSUE SPECIMENOrdering Facility: [facility] Address: [address] [place] [address] Result Comment: Surg [facility] Pathology Report Case: [id number] Authorizing Provider: Calvin Haynes MD Collected: 04/11/2023 10:31 AM Ordering Location: [facility] Received: 04/11/2023 10:32 AM [facility] Pathologist: Estiven Wang MD Specimen: SLIDE(S), 12 SLIDES, [id number] Performed By: #### L [id number] ####[facility] [id number] [address] CLINICAL HISTORY CONSULT REQUESTED [facility] Comment on above: Order Comment: Speci men Type: FORMALIN-FIXED PARAFFIN-EMBEDDED TISSUE SPECIMENOrdering Facility: [facility] Address: [address] [place] [address] Performed By: #### L [id number] ####[facility] [id number] [address] DIAGNOSIS COMMENT Normal [facility] Comment on above: Order Comment: Speci men Type: FORMALIN-FIXED PARAFFIN-EMBEDDED TISSUE SPECIMENOrdering Facility: [facility] Address: [address] [place], [place] [address], [place] [address] Result Comment: Many thanks for sending us [...] in consultation with Dr. Rogers, of the [facility] breast pathology department, who concurs. Performed By: #### L [id number] ####[facility] LABIA [id number] [address] FINAL DIAGNOSIS Normal [facility] Comment on above: Order Comment: Speci men Type: FORMALIN-FIXED PARAFFIN-EMBEDDED TISSUE SPECIMENOrdering Facility: [facility] Address: [address] [place], [place] [address] [address] Result Comment: Left breast, core biopsy - [place] spindle cell proliferation, (please see comment). Performed By: #### L [id number] ####[facility] [id number] [address] FINAL PERFORMING LAB Normal [facility] Comment on above: Order Comment: Speci men Type: FORMALIN-FIXED PARAFFIN-EMBEDDED TISSUE SPECIMENOrdering Facility: [facility] Address: [address] [place], [place] [address] [address] Result Comment: Diag nostic interpretation performed at [facility], [address] [address] CLIA# [id number] [employer] Operator: Oliverio Brito M.D. Performed By: #### L [id number] ####[facility] [id number] [address] 04-05-2023 L ------- Specimen: [id number] Received: 04/05/23 Status: MG Clemente Num: [id number] Spec Type: Surgical Subm Dr: Binta Elaine MD Tissues: A BREAST CORE NO CALCS (LT BREAST TISSUE) Procedures: S 100, HE/2, Gross/Micro L4, DESMIN, AE1-AE3, CD31, CD34, ER, Ki-67, SM ACTIN, IHC First AB, IHC Add AB/8, GATA3, BETA-CATENIN Age/ Patient Sex Location Account Attending Physician Brittanie Garcia 38/F ROMARIO [id number] Dano Mcdaniel DO SPEC NUM: [id number] RECD: 04/05/23 STATUS: MG IZQUIERDOJustice NUM: [id number] TACOS: 04/05/23 [facility] DR: Binta Elaine MD ENTERED: 04/05/[address] [facility] [address]: Dano Mcdaniel DO SPEC TYPE: Surgical DEPT: S ORDERED: S 100, HE/2, Gross/Micro L4, DESMIN, AE1-AE3, CD31, CD34, ER, Ki-67, SM ACTIN, IHC First AB, IHC Add AB/8, GATA3, BETA-CATENIN ORDERED: S 100, HE/2, Gross/Micro L4, DESMIN, AE1-AE3, CD31, CD34, ER, Ki-67, SM ACTIN, IHC First AB, IHC Add AB/8, IMMUNOHISTOCHEM, GATA3, BETA-CATENIN Supplemental Report Addendum 1 Entered: 04/16/23 [facility] Pathology Report ([id number]): Left Breast, core biopsy: - [place] spindle cell proliferation - See the [facility] report for details Addendum Signed (signature on file) Calvin Haynes MD 04/16/231535 Pathological Diagnosis Preliminary Pathology Diagnosis: Breast mass, left side, core biopsy: Specimen: [id number] Received: 04/05/231225 Status: MG Izquierdojustice Num: [id number] Spec Type: Surgical Subm Dr: Binta Elaine MD Tissues: A BREAST CORE NO CALCS (LT BREAST TISSUE) Procedures: S 100, HE/2, Gross/Micro L4, DESMIN, AE1-AE3, CD31, CD34, ER, Ki-67, SM ACTIN, IHC First AB, IHC Add AB/8, GATA3, BETA-CATENIN Patient: JoseBrittanie M [id number] (Continued) Specimen: [id number] Received: 04/05/23 (Continued) Pathological Diagnosis (Continued) Signed (signature on file) Calvin Haynes MD 04/10/23 1142 Specimen: [id number] Received: 04/05/23 Status: MG Clemente Num: [id number] Spec Type: Surgical Subm Dr: Binta Elaine MD Tissues: A BREAST CORE NO CALCS (LT BREAST TISSUE) Procedures: S 100, HE/2, Gross/Micro L4, DESMIN, AE1-AE3, CD31, CD34, ER, Ki-67, SM ACTIN, IHC First AB, IHC Add AB/8, GATA3, BETA-CATENIN Patient: JoseBrittanie M [id number] (Continued) Specimen: [id number] Received: 04/05/23 (Continued) Pathological Diagnosis (Continued) - [...] This case will be sent to the [facility] for consultation and second opinion and [...] in formalin is 6.75 hours. CPT Codes 30140 [id number] [id number] (more content not included)... Normal [facility] US breast BI limitedon 04-05 US breast BI limited [place] [place] [address] Ultrasound Report Signed Patient: Brittanie Garcia MR#: [id number] : 1985 Acct:[id number] Age/Sex: 38 / F ADM Date: 04/05/23 Loc: [facility] Room: Type: [facility] Attending Dr: Dano Mcdaniel DO Ordering [...] of the enlargement could be related to compressor operator adjuster variability. At 11:00, 3 to 4 cm [...] Binta Elaine M.D.04/05/2023 5:45 PM Dictation Location: [facility] Tech: Marlee Sánchez Transcribed By: JADEN 04/05/23 1745 Dictated By: Binta Elaine MD 04/05/23 1127 Signed By: 04/05/23 1745 Normal [facility] US breast ndl core biopsy LT on 04-05-2023 US breast ndl core biopsy LT [facility] [place] [address] Mammography Report Signed with Addenda Patient: Brittanie Garcia MR#: [id number] : 1985 Acct:[id number] Age/Sex: 38 / F ADM Date: 04/05/23 Loc: [facility] Room: Type: [facility] Attending Dr: Dano Mcdaniel DO Copies to: MD Dano Saleh DO Ordering Provider: Dano Mcdaniel DO Date of Service: 04/05/23 US/US breast ndl core biopsy LT: N63.20 ([id number]) MM/MM post biopsy LT w/CAD: POST BIOPSY CLIP PLACEMENT ADDENDUM 1 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 It is therefore uncertain whether or not resection should be performed. If there is no further intervention, ultrasound follow-up in 6 months is suggested. Impression dictated by: Binta Elaine M.D.04/17/2023 7:37 AM Dictation Location: [place] [address] Addendum Dictated By: MD Binta Elaine Addendum [...] Binta Elaine M.D.04/05/2023 2:04 PM Dictation Location: [facility] Transcribed By: JADEN 04/05/23 1404 Dictated By: Binta Elaine MD 04/05/23 1134 Signed By: 04/05/23 1404 Normal [facility] Salima 02-19-2023 CNPN Telephone (NIQ) JOSEBRITTANIE ([id number]) 1985 F Date Time Provider Department 02/19/23 MARIA DEL CARMEN BORGES During your visit today, we recorded the following information about you: Myrtle Gonzalez 02/19/2023 12:09 PM Signed Scanned in medical records from [facility] for review Evonne Dillard RN 02/19/2023 12:20 PM Signed Evonne GAMBOA BSN, RN, BA Evonne Dillard RN 02/19/2023 12:29 PM Signed Maria Del Carmen Borges APRN.BEAMING MACHINE OPERATOR You 1 minute ago (12:27 PM) Thank you. This is a normal value. PRATIBHA Louis, RN, BA Allergies As of Date: 02/19/2023 Noted Allergy Reaction ADHESIVE 07/28/2022 14 - Other: See Comments 2 - Rash CAFFEINE 06/13/2012 11 - Vomiting DHE 06/13/2012 12 - Shortness of Breath Date Reviewed: 01/12/2023 Reviewed by: Maria Del Carmen Borges APRN.BEAMING MACHINE OPERATOR - Fully Assessed Reason for Visit: Results [95] Cmt: [facility] Prescriptions as of 02/19/2023 - [...] Encounter Status:Closed by EVONNE DILLARD on 02/19/23 [facility] 02-09-2023 ZULMA Telephone (NIQ) BRITTANIE GARCIA ([id number]) 1985 F Date Time Provider Department 02/09/23 MARIA DEL CARMEN BORGES During your visit today, we recorded the following information about you: Myrtle Gonzalez 02/09/2023 9:59 AM Signed Scanneed in medical records from [facility] for review Evonne Dillard RN 02/09/2023 10:26 AM Signed Maria Del Carmen Borges APRN.BEAMING MACHINE OPERATOR You 2 minutes ago (10:23 AM) Reviewed. PRATIBHA Louis, RN, BA Allergies As of Date: 02/09/2023 Noted Allergy Reaction ADHESIVE 07/28/2022 14 - Other: See Comments 2 - Rash CAFFEINE 06/13/2012 11 - Vomiting DHE 06/13/2012 12 - Shortness of Breath Date Reviewed: 01/12/2023 Reviewed by: Maria Del Carmen Borges APRN.BEAMING MACHINE OPERATOR - Fully Assessed Reason for Visit: Results [95] Cmt: [facility] Prescriptions as of 02/09/2023 - cyclobenzaprine [...] Status:Closed by EVONNE DILLARD on 02/09/23 Normal [facility] Automated basophil %Ordered By: Maria Del Carmen Borges on 02-07-2023 Basophils/100 WBC (Bld) 0.4 % Normal . [facility] Comment on above: Performed By: #### F ER, CBC #### [facility] [address] Automated basophil countOrde red By: Maria Del Carmen Borges on 02-07-2023 Basophils (Bld) [#/Vol] 0.0 10*3/uL Normal 0.0-0.2 [facility] Comment on above: Result Comment: PERF ORMED BY: [place] [address] PATHOLOGIST CURING OVEN TENDER ROSSI POND M.D. Performed By: #### F ER, CBC #### [address] Automated blood monocyte cou ntOrdered By: Maria Del Carmen Borges on 02-07-2023 Monocytes (Bld) [#/Vol] 0.5 10*3/uL Normal 0.0-0.8 [facility] Comment on above: Performed By: #### F ER, CBC #### [address] Automated eosinophil %Ordere d By: Maria Del Carmen Bogres on 02-07-2023 Eosinophils/100 WBC (Bld) 1.2 % Normal . [facility] Comment on above: Performed By: #### F ER, CBC #### [address] Automated eosinophil countOr dered By: Maria Del Carmen Borges on 02-07-2023 Eosinophils (Bld) [#/Vol] 0.1 10*3/uL Normal 0.0-0.45 [facility] Comment on above: Performed By: #### F ER, CBC #### [address] Automated monocyte %Ordered By: Maria Del Carmen Borges on 02-07-2023 Monocytes/100 WBC (Bld) 6.5 % Normal . [facility] Comment on above: Performed By: #### F ER, CBC #### [address] Automated neutrophil %Ordere d By: Maria Del Carmen Borges on 02-07-2023 Neutrophils/100 WBC (Bld) 56.5 % Normal . [facility] Comment on above: Performed By: #### F ER, CBC #### [address] Complete Blood Count Auto Di ffon 02-07-2023 Mean Corpuscular HGB Conc 33.3 g/dL Normal 32.0-35.0 [facility] Comment on above: Performed By: #### F ER, CBC #### [address] NRBC% 0.1 /100{WBC} Normal 0-0.5 [facility] Comment on above: Performed By: #### F ER, CBC #### [address] Erythrocyte distribution wid th [Ratio] by Automated countOrdered By: Maria Del Carmen Borges on 02-07-2023 Erythrocyte distribution width (RBC) [Ratio] 13.4 % Normal 11.9-15.3 [facility] Comment on above: Performed By: #### F ER, CBC #### [address] Erythrocytes [#/volume] in B lood by Automated countOrdered By: Maria Del Carmen Borges on 02-07-2023 RBC (Bld) [#/Vol] 4.94 10*6/uL Normal 3.60-5.00 [facility] Comment on above: Performed By: #### F ER, CBC #### [address] Ferritin [Mass/volume] in Se rum or PlasmaOrdered By: Maria Del Carmen Borges on 02-07-2023 Ferritin [Mass/Vol] 110.5 ng/mL Normal 11.0-306.8 [facility] Comment on above: Result Comment: PERF ORMED BY: [place] [address] PATHOLOGIST CURING OVEN TENDER ROSSI POND M.D. Performed By: #### F ER, CBC #### [address] Hematocrit [Volume Fraction] of Blood by Automated countOrdered By: Maria Del Carmen Borges on 02-07-2023 Hematocrit (Bld) [Volume fraction] 42.6 % Normal 34.0-46.4 [facility] Comment on above: Performed By: #### F ER, CBC #### [facility] [address] Hemoglobin [Mass/volume] in BloodOrdered By: Maria Del Carmen Borges on 02-07-2023 Hemoglobin (Bld) [Mass/Vol] 14.2 g/dL Normal 11.8-15.4 [facility] Comment on above: Performed By: #### F ER, CBC #### [address] Leukocytes [#/volume] correc harman for nucleated erythrocytes in Blood by Automated counOrdered By: Maria Del Carmen Borges on 02-07-2023 WBC corrected for nucl RBC Auto (Bld) [#/Vol] 7.0 10*3/uL 3.8-11.6 [facility] Leukocytes [#/volume] in Blo od by Automated countOrdered By: Maria Del Carmen Borges on 02-07-2023 WBC (Bld) [#/Vol] 7.0 10*3/uL Normal 3.8-11.6 [facility] Comment on above: Performed By: #### F ER, CBC #### [address] Lymphocytes [#/volume] in Bl ood by Automated countOrdered By: Maria Del Carmen Borges on 02-07-2023 Lymphocytes (Bld) [#/Vol] 2.5 10*3/uL Normal 1.00-4.8 [facility] Comment on above: Performed By: #### F ER, CBC #### [place] [address] [place] Lymphocytes/100 leukocytes i n Blood by Automated countOrdered By: Maria Del Carmen Borges on 02-07-2023 Lymphocytes/100 WBC (Bld) 35.4 % Normal . [facility] Comment on above: Performed By: #### F ER, CBC #### [place] [address] [place] MCH [Entitic mass] by Automa harman countOrdered By: Maria Del Carmen Borges on 02-07-2023 MCH (RBC) [Entitic mass] 28.7 pg Normal 24.7-34.3 [facility] Comment on above: Performed By: #### F ER, CBC #### [address] MCHC Auto (RBC) [Mass/Vol]Or dered By: Maria Del Carmen Borges on 02-07-2023 MCHC (RBC) [Mass/Vol] 33.3 g/dL 32.0-35.0 [facility] MCV [Entitic volume] by Auto mated countOrdered By: Maria Del Carmen Borges on 02-07-2023 MCV (RBC) [Entitic vol] 86.2 fL Normal 80-100 [facility] Comment on above: Performed By: #### F ER, CBC #### [address] Neutrophils [#/volume] in Bl ood by Automated countOrdered By: Maria Del Carmen Borges on 02-07-2023 Neutrophils (Bld) [#/Vol] 4.0 10*3/uL Normal 1.8-7.7 [facility] Comment on above: Performed By: #### F ER, CBC #### [facility] [address] [place] [address] Nucleated erythrocytes [Pres ence] in Blood by Automated countOrdered By: Maria Del Carmen Borges on 02-07-2023 Nucleated RBC Auto Ql (Bld) 0.1 /100{WBC} 0-0.5 [facility] Platelet mean volume [Entiti c volume] in Blood by Automated countOrdered By: Maria Del Carmen Borges on 02-07-2023 Platelet mean volume (Bld) [Entitic vol] 8.3 fL Normal 6.3-10.7 [facility] Comment on above: Performed By: #### F ER, CBC #### [address] Platelets [#/volume] in Bloo d by Automated countOrdered By: Maria Del Carmen Borges on 02-07-2023 Platelets (Bld) [#/Vol] 223 10*3/uL Normal 150-450 [facility] Comment on above: Performed By: #### F ER, CBC #### [facility] [address] Echocardiogramon 12-28-[address] [facility] [address] [facility], [address], [place] [address] TRANSTHORACIC ECHOCARDIOGRAM REPORT Patient Name: BRITTANIE Enriquez Reading Physician: [id number] Saeed GARCIA MD Study Date: 12/28/2022 Referring SORAYA CAGE Physician: MRN/PID: [id number] PCP: Filiberto Ying Accession/Order#: [id number] Department [facility] Location: [place] Date of : 1985 Fellow: Gender: F Nurse: Admit Date: [employer] Music Teacher: Lanny Padron RDCS, RVT Height: 157.48 cm CC Report to: Weight: 74.84 kg Study Type: Echocardiogram BSA: 1.76 m2 Blood Pressure: 106 /70 mmHg Diagnosis/ICD: R00.0-Tachycardia, unspecified; H27-Utxxvri Indication: Hyperlipidemia, Overweight Procedure/CPT: Echo Complete w Full [id number] Study Detail: The following Echo studies were [...] 0.8 m/s (0.6-0.9m/s) PV Max P.4 mmHg [id number] Saeed Parada MD Electronically signed on 01/01/2023 at 2:35:16 PM Final Normal [facility] Office Visit (Cardiology)on 11-14-2022 Follow-up visit [...] alcoholic beverages.; Status:Complete - Retrospective Authorization; Done: [id number] Drink at least 6 glasses of water or juice a day.; Status:Complete - Retrospective Authorization; Done: [id number] Patient Instructions Avoid dehydration. Drink 5-6 bottles [...] Tilt table Chief Complaint Patient presented to [facility]. Adult Risk Screening Initial Fall Risk [...] table te (more content not included)... Normal [facility] Office Visit (Cardiology)on 11-10-2022 Follow-up visit Diagnoses/Problems [...] Signs Recorded: 10Nov2022 09:01AMRecorded: 10Nov2022 08:58AM Systolic Tyftpap58, LUE, Sitting Diastolic Nqfvaiy43, LUE, Sitting Systolic Cfsgimeb968, LUE, Standing Diastolic Kufruhwr36, LUE, Standing Heart Rate92, L Radial Sfywvqra46, LUE, Sitting Jqgfahxwu46, LUE, Sitting Height5 ft 2 in Cbvgfv362 lb BMI Drxjdjnkqd26.63 kg/m2 BSA Calculated1.75 Tobacco Useb) No Falls [...] (Author) Normal [facility] No Panel Informationon 10-23 [facility] HeartSandu ilan 250 DO Work Phone: Cardiovasc Arrhythmia Result son 09-29-2022 Cardiovasc Arrhythmia Results Reason For Visit Event Monitor: BRITTANIE is here for the application of a 30 day event monitor in office., Diagnosis: Syncope,Fainting Ordering Physician: Dr. Saeed Castellanos DO Enrollment sent to: [employer] Monitor number [id number] applied. Holter monitor printed and placed on [...] Nov 02 2022 9:05AM EST (Author) Normal [facility] Office Visit (Cardiology)on 09-20-2022 Follow-up visit Diagnoses/Problems [...] no rebound tachycardia. Recommendations, obtain [facility] monitoring, tilt table test, refer to [...] Signs Recorded: 20Sep2022 10:01AMRecorded: 20Sep2022 09:59AM Systolic Umdkl727 Diastolic Lying88 Systolic Nanfrwy602 Diastolic Qwwuexh02 Systolic Oadnmzka013 Diastolic Fvbcerod45 Heart Rate85, Apical Oifderjy723, LUE, Supine Cxurjlqqg63, LUE, Supine Height5 ft 2 in Jmhfsy618 lb BMI Bzwbwvdiez09.36 kg/m2 BSA Calculated1.77 Tobacco Useb) No PHQ-2 #1. Ov (more content not included)... Normal [facility] Tobacco Screening.on 023 Adult depression screening assessment No [facility] ShipHawk 250 DO Work Phone: Tobacco use status CPHS b) No [facility] ShipHawk 250 DO Work Phone: MAGDA BY IFA WITH REFLEXon Nuclear Ab IF (S) [Titer] Negative Negative [facility] CCP ANTIBODY IGGon Cyclic citrullinated peptide IgG Qn <20 Units [facility] Cyclic citrullinated peptide IgG Qnon 07-31-2022 CCP Antibody IgG Qualitative Negative Negative [facility] C-REACTIVE PROTEIN (CRP)on 0 07-28-2022 CRP [Mass/Vol] <0.9 mg/dL [facility] CBC W Auto Differential pane l (Bld)on 07-28-2022 Basophils (Bld) [#/Vol] 0.03 10*3/uL <0.11 k/uL [facility] Basophils/100 WBC (Bld) 0.4 % [facility] Differential cell count method Nom (Bld) Auto [facility] Eosinophils (Bld) [#/Vol] 0.07 10*3/uL <0.46 k/uL [facility] Eosinophils/100 WBC (Bld) 0.9 % [facility] Erythrocyte distribution width (RBC) [Ratio] 13.0 % 11.5 - 15.0 % [facility] Hematocrit (Bld) [Volume fraction] 44.1 % 36.0 - 46.0 % [facility] Hemoglobin (Bld) [Mass/Vol] 14.3 g/dL 11.5 - 15.5 g/dL [facility] Immature granulocytes (Bld) [#/Vol] <0.10 k/uL [facility] Immature granulocytes/100 WBC (Bld) 0.3 % [facility] Lymphocytes (Bld) [#/Vol] 2.43 10*3/uL 1.00 - 4.00 k/uL [facility] Lymphocytes/100 WBC (Bld) 30.5 % [facility] MCH (RBC) [Entitic mass] 29.0 pg 26.0 - 34.0 pg [facility] MCHC (RBC) [Mass/Vol] 32.4 g/dL 30.5 - 36.0 g/dL [facility] MCV (RBC) [Entitic vol] 89.5 fL 80.0 - 100.0 fL [facility] Monocytes (Bld) [#/Vol] 0.49 10*3/uL <0.87 k/uL [facility] Monocytes/100 WBC (Bld) 6.1 % [facility] Neutrophils (Bld) [#/Vol] 4.93 10*3/uL 1.45 - 7.50 k/uL [facility] Neutrophils/100 WBC (Bld) 61.8 % [facility] Nucleated RBC (Bld) [#/Vol] <0.01 k/uL [facility] Nucleated RBC/100 WBC (Bld) [Ratio] 0.0 /100 WBC [facility] Platelet mean volume (Bld) [Entitic vol] 10.1 fL 9.0 - 12.7 fL [facility] Platelets (Bld) [#/Vol] 251 10*3/uL 150 - 400 k/uL [facility] RBC (Bld) [#/Vol] 4.93 10*6/uL 3.90 - 5.20 m/uL [facility] WBC (Bld) [#/Vol] 7.97 10*3/uL 3.70 - 11.00 k/uL [facility] Comprehensive metabolic 2000 panelon 07-28-2022 Albumin [Mass/Vol] 4.7 g/dL 3.9 - 4.9 g/dL [facility] ALP [Catalytic activity/Vol] 86 U/L 34 - 123 U/L [facility] ALT [Catalytic activity/Vol] 58 U/L High 7 - 38 U/L [facility] Anion gap [Moles/Vol] 12 mmol/L 9 - 18 mmol/L [facility] AST [Catalytic activity/Vol] 31 U/L 13 - 35 U/L [facility] Bilirubin [Mass/Vol] 0.4 mg/dL 0.2 - 1 .3 mg/dL [facility] Calcium [Mass/Vol] 10.0 mg/dL 8.5 - 10. 2 mg/dL [facility] Chloride [Moles/Vol] 105 mmol/L 97 - 10 5 mmol/L [facility] CO2 [Moles/Vol] 23 mmol/L 22 - 30 mmol/L [facility] Creatinine [Mass/Vol] 0.79 mg/dL 0.58 - 0.96 mg/dL [facility] Estimated Glomerular Filtration Rate 100 mL/min/1.73m >=60 mL/min/1.7 3m [facility] Glucose [Mass/Vol] 84 mg/dL 74 - 99 mg/dL [facility] Potassium [Moles/Vol] 4.1 mmol/L 3.7 - 5.1 mmol/L [facility] Protein [Mass/Vol] 7.7 g/dL 6.3 - 8.0 g/dL [facility] Sodium [Moles/Vol] 140 mmol/L 136 - 144 mmol/L [facility] Urea nitrogen [Mass/Vol] 12 mg/dL 7 - 21 mg/dL [facility] ESR Westergren method (Bld) [Velocity]on 07-28-2022 ESR (Bld) [Velocity] 5 mm/h 0 - 20 mm/hr [facility] No Panel Informationon 07-28 [facility] RHEUMATOID FACTOR BLon 07-28 Rheumatoid factor Qn <16 IU/mL [facility] XR CSPINE OBL FLEX_EXTon XR CSPINE [...] by: NAVNEET MONTERO Date: 2022-02-16 08:57 Normal [facility] Ferritin [Mass/volume] in Se rum or PlasmaOrdered By: Kenna Sheehan on 01-19-2022 Ferritin [Mass/Vol] 51.8 ng/mL 11-306.8 [facility] PAP ACOG PANEL 2: 30 to 65on 01-13-2022 . . Normal [facility] Comment on above: Result Comment: Perf ormed at: WB Performed By: #### [id number] #### [facility] [address] [place] [address] Dr. Lui Fonseca Age Gdln ACOG Testing 30-65 Normal [facility] Comment on above: Performed By: #### 4 [id number] #### [facility] [address] [place] [address] [address] Lui Fonseca DIAGNOSIS: Comment Normal [facility] Comment on above: Result Comment: NEGA TIVE FOR INTRAEPITHELIAL LESION OR MALIGNANCY. Performed at: WB Performed By: #### [id number] #### [facility] [address] [place] [address] [address] Lui Fonseca HPV Aptima Negative Normal Negative [facility] Comment on above: Result Comment: This nucleic acid amplification test detects fourteen high-risk HPV types (16,18,31,33,35,39,45,51,52,56,58,59,66,68) without differentiation. Performed at: =G Performed By: #### [id number] #### [facility] [address] [place] [address] Dr. uLi Fonseca Methodology: Comment [facility] Comment on above: Result Comment: This liquid based ThinPrep(R) pap test was screened with the use of an image guided system. Performed at: WB Performed By: #### 4 [id number] #### [facility] [address] [place] [address] Dr. Lui Fonseca Note: Comment Normal [facility] Comment on above: Result Comment: The Pap smear is a screening test designed to aid in the detection of premalignant and malignant conditions of the uterine cervix. It is not a diagnostic procedure and should not be used as the sole means of detecting cervical cancer. Both false-positive and false-negative reports do occur. . Performed at: WB Performed By: #### [id number] #### [facility] [address] [place] [address] Dr. Lui Fonseca Performed by: Comment Normal [facility] Comment on above: Result Comment: Susan Alejandro, Supervisory Trichologist (ASCP) Performed at: WB Performed By: #### [id number] #### [facility] [address] [place] [address] Dr. Lui Fonseca Specimen adequacy: Comment [facility] Comment on above: Result Comment: Sati sfactory for evaluation. No endocervical component is identified. Performed at: WB Performed By: #### [id number] #### [facility] [address] [place] [address] Dr. Lui Fonseca INSULINon 01-02-2022 Insulin 20.6 uIU/mL Normal 2.6-24.9 [facility] Comment on above: Performed By: #### I NSULIN #### [facility] [address] [place] [address] Dr. Lui Fonseca H PYLORI ANTIBODY IGGon 12-19 H. PYLORI IGG ABS 0.15 Index Value Normal 0.00-0.[address] [facility] Comment on above: Result Comment: Nega tive <0.80 Equivocal 0.80 - 0.89 Positive >0.89 Performed By: #### H PYLLC #### [facility] [address] [place] [address] Dr. Lui Fonseca T4, T3U, FTI LABCORPon 01-01 Free Thyroxine Index 2.7 Normal 1.2-4.9 [facility] Comment on above: Performed By: #### T HYLC #### [facility] [address] [place] [address] Dr. Lui Fonseca T3 Uptake 30 % Normal 24-39 [facility] Comment on above: Performed By: #### T HYLC #### [facility] [address] [place] [address] Dr. Lui Fonseca T4 [Mass/Vol] 9.1 ug/dL Normal 4.5-12.0 [facility] Comment on above: Performed By: #### T HYLC #### [facility] [address] [place] [address] Dr. Lui Fonseca CBC AUTO DIFFon 12-31-2021 BASO # 0.0 103/ul Normal 0.0-0.1 [facility] Comment on above: Performed By: #### C BC #### [facility] [address] [place] [address] Dr. Lui Fonseca Basophils/100 WBC (Bld) 0.4 % Normal 0.2-2.0 [facility] Comment on above: Performed By: #### C BC #### [facility] [address] [place] [address] Dr. Lui Fonseca EO # 0.2 103/ul Normal 0.0-0.7 [facility] Comment on above: Performed By: #### C BC #### [facility] [address] [place] [address] Dr. Lui Fonseca Eosinophils/100 WBC (Bld) 2.8 % Normal 0.9-7.0 [facility] Comment on above: Performed By: #### C BC #### [facility] [address] [place] [address] Dr. Lui Fonseca Erythrocyte distribution width (RBC) [Ratio] 13.2 % Normal 11.0-15.0 [facility] Comment on above: Performed By: #### C BC #### [facility] [address] [place] [address] Dr. Lui Fonseca Hematocrit (Bld) [Volume fraction] 44.0 % Normal 36.0-48.0 [facility] Comment on above: Performed By: #### C BC #### [facility] [address] [place] [address] Dr. Lui Fonseca Hemoglobin (Bld) [Mass/Vol] 14.3 g/dL Normal 12.0-16.0 [facility] Comment on above: Performed By: #### C BC #### [facility] [address] [place] [address] Dr. Lui Fonseca IG # 0.01 10e3/ul Normal 0.00-0.03 [facility] Comment on above: Performed By: #### C BC #### [facility] [address] [place] [address] Dr. Lui Fonseca IG % 0.2 % Normal 0.0-0.5 [facility] Comment on above: Performed By: #### C BC #### [facility] [address] [place] [address] Dr. Lui Fonseca LYMPH # 2.3 103/ul Normal 1.2-3.8 [facility] Comment on above: Performed By: #### C BC #### [facility] [address] [place] [address] Dr. Lui Fonseca Lymphocytes/100 WBC (Bld) 41.6 % Normal 20.5-60.0 [facility] Comment on above: Performed By: #### C BC #### [facility] [address] [place] [address] Dr. Lui Fonseca MANUAL DIFF REQ NO Normal [facility] Comment on above: Performed By: #### C BC #### [facility] [address] [place] [address] Dr. Lui Fonseca MCH (RBC) [Entitic mass] 29.1 pg Normal 26.7-34.0 [facility] Comment on above: Performed By: #### C BC #### [facility] [address] [place] [address] [address] Lui Fonseca MCHC (RBC) [Mass/Vol] 32.5 g/dL Normal 29.9-35.2 [facility] Comment on above: Performed By: #### C BC #### [facility] [address] [place] [address] [address] Lui Fonseca MCV (RBC) [Entitic vol] 89.6 fL Normal 81.0-99.0 [facility] Comment on above: Performed By: #### C BC #### [facility] [address] [place] [address] Dr. Lui Fonseca MONO # 0.3 103/ul Normal 0.3-0.8 [facility] Comment on above: Performed By: #### C BC #### [facility] [address] [place] [address] Dr. Lui Fonseca Monocytes/100 WBC (Bld) 6.3 % Normal 1.7-12.0 [facility] Comment on above: Performed By: #### C BC #### [facility] [address] [place] [address] Dr. Lui Fonseca NEUT # 2.7 103/ul Normal 1.4-6.5 [facility] Comment on above: Performed By: #### C BC #### [facility] [address] [place] [address] Dr. Lui Fonseca Neutrophils/100 WBC (Bld) 48.7 % Normal 43.0-75.0 [facility] Comment on above: Performed By: #### C BC #### [facility] [address] [place] [address] Dr. Lui Fonseca Platelet mean volume (Bld) [Entitic vol] 9.5 fL Normal 9.5-13.5 [facility] Comment on above: Performed By: #### C BC #### [facility] [address] [place] [address] Dr. Lui Fonseca PLT 276 103/ul Normal 150-450 [facility] Comment on above: Performed By: #### C BC #### [facility] [address] [place] [address] [address] Lui Fonseca RBC 4.91 106/ul Normal 4.20-5.40 [facility] Comment on above: Performed By: #### C BC #### [facility] [address] [place] [address] [address] Lui Fonseca WBC 5.4 103/ul Normal 4.0-11.0 [facility] Comment on above: Performed By: #### C BC #### [facility] [address] [place] [address] [address] Lui Fonseca GLYCOHEMOGLOBIN A1Con 2021 ADA RECOMMENDATION SEE BELOW Normal [facility] Comment on above: Result Comment: ADA RECOMMENDED LIMIT 4.0 - 6.0 ADA THERAPEUTIC TARGET < 7.0 ACTION SUGGESTED > 7.0 Performed By: #### A 1C ####[facility] [address] [place] [address]Dr. Lui Fonseca Glucose [Mass/Vol] 97 mg/dL Normal [facility] Comment on above: Performed By: #### A 1C ####[facility] [address] [place] [address]Dr. Lui Fonseca HbA1c (Bld) [Mass fraction] 5.0 % Normal 4.5-6.2 [facility] Comment on above: Performed By: #### A 1C ####[facility] [address] [place] [address]Dr. Lui Fonseca IRONon 12-31-2021 Iron [Mass/Vol] 101.0 ug/dL Normal 50.0-170.0 [facility] Comment on above: Performed By: #### I EDMOND #### [facility] [address] [place] [address] [address] Lui Fonseca LIPID PROFILEon 12-31-2021 CHOL-HDL RATIO NORM SEE BELOW Normal [facility] Comment on above: Result Comment: 3.3 - 4.4 LOW RISK 4.4 - 7.1 AVERAGE RISK 7.1 - 11.0 MODERATE RISK >11.0 HIGH RISK Performed By: #### T SH, LIPID, CMP ####[facility] [address] [place] [id number]. Lui Fonseca Cholesterol [Mass/Vol] 149 mg/dL Normal <=200 [facility] Comment on above: Performed By: #### T MAMADOU, LIPID, CMP ####[facility] [address] [place] [id number]. Lui Fonseca Cholesterol in HDL [Mass/Vol] 55 mg/dL Normal 40-60 [facility] Comment on above: Performed By: #### T SH, LIPID, CMP ####[facility] [address] [place] [phone]. Lui Fonseca Cholesterol in LDL [Mass/Vol] 61.4 mg/dL Normal [facility] Comment on above: Performed By: #### T MAMADOU, LIPID, CMP ####[facility] [address] [place] [phone]. Lui Fonseca Cholesterol.total/Chol esterol in HDL [Mass ratio] 2.7 {ratio} Normal [facility] Comment on above: Performed By: #### T MAMADOU, LIPID, CMP ####[facility] [address] [place] [phone]. Lui Fonseca HDL NORMAL > or = 60 mg/dl - LO W CARDIOVASCULAR RISK <40 mg/dl - HIGH CARDIOVASCULAR RISK Normal [facility] Comment on above: Performed By: #### T MAMADOU, LIPID, CMP ####[facility] [address] [place] [phone]. Lui Fonseca LDL CALC NORMAL SEE BELOW Normal [facility] Comment on above: Result Comment: <100 mg/dl OPTIMAL 100 - 129 mg/dl NEAR OR ABOVE OPTIMAL 130 - 159 mg/dl BORDERLINE HIGH 160 - 189 mg/dl HIGH >190 mg/dl VERY HIGH Performed By: #### T SH, LIPID, CMP ####[facility] [address] [place] [phone]. Lui Fonseca Triglyceride [Mass/Vol] 163 mg/dL Critically high <=150 [facility] Comment on above: Performed By: #### T SH, LIPID, CMP ####[facility] [address] [place] [address]Dr. Lui Fonseca VLDL CALC 32.6 mg/dL Normal [facility] Comment on above: Performed By: #### T MAMADOU, LIPID, CMP ####[facility] [address] [place] [address]Dr. Lui Fonseca OCC BLD IMMUNO SCREENon 12-19 OCCULT BLOOD Negative Normal NEGATIVE [facility] Comment on above: Performed By: #### O BSCRN #### [facility] [address] [address] [address] Lui Fonseca PROF 14(COMP METB)on 022 Albumin [Mass/Vol] 4.1 g/dL Normal 3.4-5.0 [facility] Comment on above: Performed By: #### T MAMADOU, LIPID, CMP ####[facility] [address] [address]Dr. Lui Fonseca Albumin/Globulin [Mass ratio] 1.2 {ratio} Normal [facility] Comment on above: Performed By: #### T MAMADOU, LIPID, CMP ####[facility] [address] [address]Dr. Lui Fonseca ALP [Catalytic activity/Vol] 86 U/L Normal 46-116 [facility] Comment on above: Performed By: #### T MAMADOU, LIPID, CMP ####[facility] [address] [address]Dr. Lui Fonseca ALT [Catalytic activity/Vol] 27 U/L Normal 14-59 [facility] Comment on above: Performed By: #### T MAMADOU, LIPID, CMP ####[facility] [address] [address]Dr. Lui Fonseca Anion gap [Moles/Vol] 14.1 mmol/L Normal [facility] Comment on above: Performed By: #### T SH, LIPID, CMP ####[facility] [address] [address]Dr. Lui Fonseca AST [Catalytic activity/Vol] 15 U/L Normal 15-37 [facility] Comment on above: Performed By: #### T SH, LIPID, CMP ####[facility] [address] [id number]. Lui Fonseca Bilirubin [Mass/Vol] 0.6 mg/dL Normal 0.2-1.0 [facility] Comment on above: Performed By: #### T SH, LIPID, CMP ####[facility] [address] [address]Dr. Lui Fonseca Calcium [Mass/Vol] 9.1 mg/dL Normal 8.5-10.1 [facility] Comment on above: Performed By: #### T SH, LIPID, CMP ####[facility] [address] [address]Dr. Lui Fonseca Chloride [Moles/Vol] 104 mmol/L Normal 98-107 [facility] Comment on above: Performed By: #### T SH, LIPID, CMP ####[facility] [address] [place], [place] [address]Dr. Lui Fonseca CO2 [Moles/Vol] 26.8 mmol/L Normal 21.0-32.0 [facility] Comment on above: Performed By: #### T SH, LIPID, CMP ####[facility] [address] [place], [place] [address]Dr. Lui Fonseca Creatinine [Mass/Vol] 0.84 mg/dL Normal 0.55-1.02 [facility] Comment on above: Performed By: #### T SH, LIPID, CMP ####[facility] [address] [place], [place] [address]Dr. Lui Fonseca EGFR-AF MOSOTHO >60 Normal >=60 [facility] Comment on above: Performed By: #### T SH, LIPID, CMP ####[facility] [address] [address]Dr. Lui Fonseca EGFR-NON AF MOSOTHO >60 Normal >=60 [facility] Comment on above: Performed By: #### T SH, LIPID, CMP ####[facility] [address] [place], [place] [address]Dr. Lui Fonseca Globulin (S) [Mass/Vol] 3.3 g/dL Normal [facility] Comment on above: Performed By: #### T MAMADOU, LIPID, CMP ####[facility] [address] [address]Dr. Lui Fonseca Glucose [Mass/Vol] 93 mg/dL Normal 74-106 [facility] Comment on above: Performed By: #### T MAMADOU, LIPID, CMP ####[facility] [address] [address]Dr. Lui Fonseca Potassium [Moles/Vol] 3.9 mmol/L Normal 3.5-5.1 [facility] Comment on above: Performed By: #### T MAMADOU, LIPID, CMP ####[facility] [address] [address]Dr. Lui oFnseca Protein [Mass/Vol] 7.4 g/dL Normal 6.4-8.2 [facility] Comment on above: Performed By: #### T MAAMDOU, LIPID, CMP ####[facility] [address] [place], [place] [address]Dr. Lui Fonseca Sodium [Moles/Vol] 141 mmol/L Normal 136-145 [facility] Comment on above: Performed By: #### T MAMADOU, LIPID, CMP ####[facility] [address] [place], [place] [address]Dr. Lui Fonseca Urea nitrogen [Mass/Vol] 8.0 mg/dL Normal 7.0-18.0 [facility] Comment on above: Performed By: #### T MAMADOU, LIPID, CMP ####[facility] [address] [place], [place] [address]Dr. Lui Fonseca Urea nitrogen/Creatinine [Mass ratio] 9.5 mg/mg Normal [facility] Comment on above: Performed By: #### T MAMADOU, LIPID, CMP ####[facility] [address] [place], [place] [address]Dr. Lui Fonseca TSHon 12-31-2021 TSH 0.539 uIU/mL Normal 0.358-3.74 0 [facility] Comment on above: Performed By: #### T MAMADOU, LIPID, CMP ####[facility] [address] [place], [place] [address]Io. Lui Fonseca Vital Signs Date Time Vital Sign Value Performing Clinician Facility 01-30-2024 13:48-0400 Body height 157.5 cm Harman Sullivan MD Work Phone: [facility] 01-30-2024 13:48-0400 Body mass index (BMI) [Ratio] 28.43 kg/m2 Harman Sullivan MD Work Phone: [facility] 01-30-2024 13:48-0400 Body weight 70.5 kg Harman Sullivan MD Work Phone: [facility] 01-30-2024 13:48-0400 Diastolic blood pressure 76 mm[Hg] Harman Sullivan MD Work Phone: [facility] 01-30-2024 13:48-0400 Heart rate 91 /min Harman Sullivan MD Work Phone: [facility] 01-30-2024 13:48-0400 Systolic blood pressure 115 mm[Hg] Harman Sullivan MD Work Phone: [facility] 10-31-2023 10:14-0400 Body height 157.5 cm Harman Sullivan MD Work Phone: [facility] 10-31-2023 10:14-0400 Body mass index (BMI) [Ratio] 27.82 kg/m2 Harman Sullivan MD Work Phone: [facility] 10-31-2023 10:14-0400 Body weight 69 kg Harman Sullivan MD Work Phone: [facility] 10-31-2023 10:14-0400 Diastolic blood pressure 70 mm[Hg] Harman Sullivan MD Work Phone: [facility] 10-31-2023 10:14-0400 Heart rate 84 /min Harman Sullivan MD Work Phone: [facility] 10-31-2023 10:14-0400 Systolic blood pressure 109 mm[Hg] Harman Sullivan MD Work Phone: [facility] 09-21-2023 08:12-0400 Body height 157.5 cm Harman Sullivan MD Work Phone: [facility] 09-21-2023 08:12-0400 Body mass index (BMI) [Ratio] 27.58 kg/m2 Harman Sullivan MD Work Phone: [facility] 09-21-2023 08:12-0400 Body weight 68.4 kg Harman Sullivan MD Work Phone: [facility] 09-21-2023 08:12-0400 Diastolic blood pressure 74 mm[Hg] Harman Sullivan MD Work Phone: [facility] 09-21-2023 08:12-0400 Heart rate 84 /min Harman Sullivan MD Work Phone: [facility] 09-21-2023 08:12-0400 SaO2% (BldA) [Mass fraction] 99 % Harman Sullivan MD Work Phone: [facility] 09-21-2023 08:12-0400 Systolic blood pressure 109 mm[Hg] Harman Sullivan MD Work Phone: [facility] 05-15-2023 12:15-0500 Diastolic blood pressure 67 mm[Hg] MD Filiberto Ying Work Phone: [facility] 05-15-2023 12:15-0500 Heart rate 86 /min MD Filiberto Ying Work Phone: [facility] 05-15-2023 12:15-0500 Respiratory rate 16 /min MD Filiberto Ying Work Phone: [facility] 05-15-2023 12:15-0500 SaO2% (BldA) [Mass fraction] 100 % MD Filiberto Ying Work Phone: [facility] 05-15-2023 12:15-0500 Systolic blood pressure 125 mm[Hg] MD Filiberto Ying Work Phone: [facility] 05-15-2023 11:10-0500 Inhaled oxygen flow rate 6 L/min MD Filiberto Ying Work Phone: [facility] 05-15-2023 10:55-0500 Body temperature 98.1 [degF] MD Filiberto Ying Work Phone: [facility] 05-15-2023 09:30-0500 Body mass index (BMI) [Ratio] 25.8 kg/m2 MD Filiberto Ying Work Phone: [facility] 05-15-2023 08:55-0500 Body height 157.48 cm MD Filiberto Ying Work Phone: [facility] 05-15-2023 08:55-0500 Body weight 64 kg MD Filiberto Ying Work Phone: [facility] 04-05-2023 12:08-0500 Body temperature 98.2 [degF] MD Filiberto Yign Work Phone: [facility] 04-05-2023 12:08-0500 Diastolic blood pressure 69 mm[Hg] MD Filiberto Ying Work Phone: [facility] 04-05-2023 12:08-0500 Heart rate 87 /min MD Filiberto Ying Work Phone: [facility] 04-05-2023 12:08-0500 Respiratory rate 18 /min MD Filiberto Ying Work Phone: [facility] 04-05-2023 12:08-0500 SaO2% (BldA) [Mass fraction] 100 % MD Filiberto Ying Work Phone: [facility] 04-05-2023 12:08-0500 Systolic blood pressure 110 mm[Hg] MD Filiberto Ying Work Phone: [facility] 01-12-2023 09:35-0400 Body height 157.5 cm Maria Del Carmen Borges RESIDENTIAL PROPERTY MANAGER.BEAMING MACHINE OPERATOR Work Phone: [facility] 01-12-2023 09:35-0400 Body weight 70.31 kg Maria Del Carmen Borges RESIDENTIAL PROPERTY MANAGER.BEAMING MACHINE OPERATOR Work Phone: [facility] 01-12-2023 09:35-0400 Diastolic blood pressure 69 mm[Hg] Maria Del Carmen Borges RESIDENTIAL PROPERTY MANAGER.BEAMING MACHINE OPERATOR Work Phone: [facility] 01-12-2023 09:35-0400 Heart rate 110 /min Maria Del Carmen Borges RESIDENTIAL PROPERTY MANAGER.BEAMING MACHINE OPERATOR Work Phone: [facility] 01-12-2023 09:35-0400 SaO2% (BldA) [Mass fraction] 93 % Maria Del Carmen Borges RESIDENTIAL PROPERTY MANAGER.BEAMING MACHINE OPERATOR Work Phone: [facility] 01-12-2023 09:35-0400 Systolic blood pressure 110 mm[Hg] Maria Del Carmen Borges RESIDENTIAL PROPERTY MANAGER.BEAMING MACHINE OPERATOR Work Phone: [facility] 10-23-2022 14:14-0400 Diastolic blood pressure 66 mm[Hg] MD Filiberto Ying Work Phone: [facility] 10-23-2022 14:14-0400 Heart rate 100 /min MD Filiberto Ying Work Phone: [facility] 10-23-2022 14:14-0400 Systolic blood pressure 113 mm[Hg] MD Filiberto Ying Work Phone: [facility] 10-23-2022 13:50-0400 SaO2% (BldA) [Mass fraction] 99 % MD Filiberto Ying Work Phone: [facility] 09-20-2022 10:01-0400 Diastolic blood pressure 88 mm[Hg] Filiberto M Hoy Work Phone: [facility] 250 DO Work Phone: 09-20-2022 10:01-0400 Diastolic blood pressure 84 mm[Hg] Filiberto M Hoy Work Phone: [facility] 250 DO Work Phone: 09-20-2022 10:01-0400 Diastolic blood pressure 86 mm[Hg] Filiberto M Hoy Work Phone: [facility] 250 DO Work Phone: 09-20-2022 10:01-0400 Systolic blood pressure 120 mm[Hg] Filiberto Zoe Hoy Work Phone: [facility] 250 DO Work Phone: 09-20-2022 10:01-0400 Systolic blood pressure 122 mm[Hg] Filiberto Zoe Hoy Work Phone: [facility] 250 DO Work Phone: 09-20-2022 09:59-0400 Body height 157.48 cm Filiberto Zoe Hoy Work Phone: [facility] 250 DO Work Phone: 09-20-2022 09:59-0400 Body mass index (BMI) [Ratio] 30.36 kg/m2 Filiberto Zoe Hoy Work Phone: [facility] 250 DO Work Phone: 09-20-2022 09:59-0400 Body surface area Derived from formula 1.77 m2 Filiberto Zoe Hoy Work Phone: [facility] 250 DO Work Phone: 09-20-2022 09:59-0400 Body weight 75.3 kg Filiberto Enriquez Hoy Work Phone: [facility] 250 DO Work Phone: 09-20-2022 09:59-0400 Diastolic blood pressure 88 mm[Hg] Filiberto Zoe Hoy Work Phone: [facility] 250 DO Work Phone: 09-20-2022 09:59-0400 Heart rate 85 /min Filiberto Zoe Hoy Work Phone: [facility] 250 DO Work Phone: 09-20-2022 09:59-0400 Systolic blood pressure 120 mm[Hg] Filiberto Zoe Hoy Work Phone: [facility] 250 DO Work Phone: 07-28-2022 13:01-0500 Body height 157.5 cm Somjita Braxton RESIDENTIAL PROPERTY MANAGER.BEAMING MACHINE OPERATOR Work Phone: [facility] 07-28-2022 13:01-0500 Body temperature 97.81 [degF] Somjita Braxton RESIDENTIAL PROPERTY MANAGER.BEAMING MACHINE OPERATOR Work Phone: [facility] 07-28-2022 13:01-0500 Body weight 79.11 kg Somjita Braxton RESIDENTIAL PROPERTY MANAGER.BEAMING MACHINE OPERATOR Work Phone: [facility] 07-28-2022 13:01-0500 Diastolic blood pressure 59 mm[Hg] Somjita Braxton RESIDENTIAL PROPERTY MANAGER.BEAMING MACHINE OPERATOR Work Phone: [facility] 07-28-2022 13:01-0500 Heart rate 85 /min Somjita Braxton RESIDENTIAL PROPERTY MANAGER.BEAMING MACHINE OPERATOR Work Phone: [facility] 07-28-2022 13:01-0500 Systolic blood pressure 117 mm[Hg] Somjita Braxton RESIDENTIAL PROPERTY MANAGER.BEAMING MACHINE OPERATOR Work Phone: [facility] Encounters Encounter Date Encounter Type Care Provider Facility Start: 02-18-2024 End: 02-18-2024 ambulatory Reuben Bauman MD Facility:[facility] Start: 01-30-2024 End: 01-30-2024 ambulatory HARMAN SULLIVAN Facility:[facility] Start: 01-30-2024 End: 01-30-2024 Patient encounter procedure Harman Sullivan MD Work Phone: Neurology Comment on above: Chronic migraine wit hout aura, with intractable migraine, so stated, with status migrainosus (Primary Dx); Neck pain Start: 01-28-2024 End: 01-28-2024 Patient encounter procedure MD Filiberto Ying Work Phone: [facility] Start: 01-28-2024 End: 01-28-2024 ambulatory MD Filiberto Ying Work Phone: [facility] Work Phone: Start: 11-09-2023 ambulatory [facility] Neu[facility] Comment on above: Paperwork Start: 11-09-2023 E-mail encounter fro m caregiver [facility] Neurology Start: 10-31-2023 Telephone encounter Harman fraser MD Work Phone: Neurology Comment on above: Appointment Start: 10-31-2023 End: 10-31-2023 ambulatory HARMAN SULLIVAN Facility:[facility] Start: 10-31-2023 End: 10-31-2023 Patient encounter procedure Harman Sullivan MD Work Phone: Neurology Comment on above: Chronic migraine wit hout aura, with intractable migraine, so stated, with status migrainosus (Primary Dx); Neck pain Start: 10-18-2023 Get Medical Advice Maria Del Carmen caraballo RESIDENTIAL PROPERTY MANAGER.BEAMING MACHINE OPERATOR Work Phone: Neurology Comment on above: Med refill Refill Request Start: 10-11-2023 Telephone encounter Harman fraser MD Work Phone: Neurology Comment on above: Insurance Authorizat ion (Botox) Start: 10-03-2023 ambulatory Maria Del Carmen PAREKHN.BEAMING MACHINE OPERATOR Work Phone: Neurology Comment on above: Fmla Start: 09-21-2023 Telephone encounter Harman fraser MD Work Phone: Neurology Comment on above: Request Outside [facility] Records Start: 09-21-2023 End: 09-21-2023 ambulatory HARMAN SULLIVAN Facility:[facility] Start: 09-21-2023 End: 09-21-2023 Patient encounter procedure Haramn Sullivan MD Work Phone: Neurology Comment on above: Chronic migraine wit hout aura, with intractable migraine, so stated, with status migrainosus (Primary Dx); Neck pain; RLS (restless legs syndrome) Start: 09-15-2023 Refill Maria Del Carmen PHAM.BEAMING MACHINE OPERATOR Work Phone: Neurology Comment on above: Refill Request Start: 09-04-2023 End: 09-04-2023 ambulatory Maria Del Carmen Borges APRN.BEAMING MACHINE OPERATOR Work Phone: Neurology Comment on above: Cervical dystonia (P rimary Dx) Start: 09-04-2023 End: 09-04-2023 Telemedicine consultation with patient Maria Del Carmen Borges RESIDENTIAL PROPERTY MANAGER.BEAMING MACHINE OPERATOR Work Phone: [facility] Start: 09-03-2023 E-mail encounter fro m caregiver Maria Del Carmen Borges RESIDENTIAL PROPERTY MANAGER.BEAMING MACHINE OPERATOR Work Phone: Neurology Start: 09-03-2023 Patient encounter procedure Maria Del Carmen Borges RESIDENTIAL PROPERTY MANAGER.BEAMING MACHINE OPERATOR Work Phone: Neurology Comment on above: appointment Start: 07-30-2023 End: 07-30-2023 ambulatory VALERIO SANZ Not Available Start: 05-23-2023 End: 05-23-2023 ambulatory DANO H EDENILSON Not Available Start: 05-15-2023 End: 05-15-2023 Admission to same day surgery center MD Filiberto Ying Work Phone: [facility] [place] Start: 05-15-2023 End: 05-15-2023 ambulatory MD Filiberto Ying Work Phone: [facility] Work Phone: Start: 05-01-2023 End: 05-01-2023 Patient encounter procedure MD Filiberto Ying Work Phone: [facility] Work Phone: Start: 05-01-2023 End: 05-01-2023 ambulatory MD Filiberto Ying Work Phone: [facility] Work Phone: Start: 04-05-2023 End: 04-05-2023 Admission to same day surgery center MD Filiberto Ying Work Phone: [facility] Start: 04-05-2023 End: 04-05-2023 ambulatory MD Filiberto Ying Work Phone: [facility] Work Phone: Start: 02-19-2023 Telephone encounter Maria Del Carmen Tucker on RESIDENTIAL PROPERTY MANAGER.BEAMING MACHINE OPERATOR Work Phone: Neurology Comment on above: Results ([facility] ) Start: 02-09-2023 Telephone encounter Maria Del Carmen Tucker on RESIDENTIAL PROPERTY MANAGER.BEAMING MACHINE OPERATOR Work Phone: Neurology Comment on above: Results ([facility] ) Start: 02-07-2023 End: 02-07-2023 Patient encounter procedure MD Filiberto Ying Work Phone: [facility] [place] Work Phone: Start: 02-07-2023 End: 02-07-2023 ambulatory MD Filiberto Ying Work Phone: [facility] Work Phone: Start: 01-19-2023 Orders Only Maria Del Carmen Giles PRN.BEAMING MACHINE OPERATOR Work Phone: Neurology Start: 01-17-2023 ambulatory Maria Del Carmen Giles PRN.BEAMING MACHINE OPERATOR Work Phone: Neurology Comment on above: Labs and rx Start: 01-12-2023 End: 01-12-2023 Patient encounter procedure Maria Del Carmen Borges RESIDENTIAL PROPERTY MANAGER.BEAMING MACHINE OPERATOR Work Phone: Neurology Comment on above: Cervical dystonia (P rimary Dx); Neck tightness; RLS (restless legs syndrome) Start: 01-08-2023 Chart Update Filiberto Ying Work Phone: [facility] 320 DO Work Phone: Start: 12-28-[address] Soraya Ford acility:[id number] Start: 11-14-2022 ambulatory Soraya Cage Facility:1 [id number] Start: 11-10-2022 FUV, Provider: Saeed Castellanos, Status: Pen, Time: 8:50 AM Filiberto Ying Work Phone: [facility] Work Phone: Start: 11-10-[address] Saeed Castellanos Facility: Start: 11-02-[address] [facility] Start: 11-02-[address] Saeed Castellanos Facility: Start: 10-23-2022 End: 10-23-2022 ambulatory MD Filiberto Ying Work Phone: [facility] Work Phone: Start: 10-23-2022 End: 10-23-2022 Patient encounter procedure MD Filiberto Ying Work Phone: [facility]Electrodiagnostics Work Phone: Start: 10-23-2022 ambulatory Romero Jones Faci lity:[id number] Start: 10-12-2022 End: 10-12-2022 Patient encounter procedure MD Filiberto Ying Work Phone: [facility] Work Phone: Start: 10-06-[address] FILIBERTO YING . Facili ty:H1 Start: 09-29-2022 EVENT EMORY, Provider : MOOKIE YOUNG MANAGER DATABASE 1,[id number], Status: Pen, Time: 1:00 PM Filiberto Ying Work Phone: [facility] 250 DO Work Phone: Start: 09-29-2022 Patient encounter procedure Filiberto Ying Work Phone: [facility] 250 DO Work Phone: Start: 09-29-[address] Saeed Castellanos Facility: Start: 09-20-2022 Office consultation new/estab patient 60 min Filiberto Ying Work Phone: [facility] 250 DO Work Phone: Start: 09-20-[address] Saeed Castellanos Facility: Start: 08-11-2022 End: 08-11-2022 ambulatory Nayely Limon APRN.BEAMING MACHINE OPERATOR Work Phone: Rheumatology Comment on above: Neck pain, chronic ( Primary Dx); Fibromyalgia Start: 08-11-2022 End: 08-11-2022 Telemedicine consultation with patient Nayely Limon APRN.BEAMING MACHINE OPERATOR Work Phone: [facility] Start: 07-28-2022 End: 07-28-2022 Subsequent hospital visit by physician Xr Main A21 Radiology Comment on above: Neck pain, chronic [ M54.2, G89.29] Start: 07-28-2022 End: 07-28-2022 Patient encounter procedure Nayely Limon APRN.BEAMING MACHINE OPERATOR Work Phone: Rheumatology Comment on above: Neck [...] encounter procedure MD Filiberto Ying Work Phone: [facility] [place] Start: 01-09-2022 End: 01-09-[address] FABY RAYMOND . Facility:[facility]1 Start: 01-03-2022 Encounter for genera l adult medical examination without abnormal findings DR FILIBERTO YING . [facility] Start: 12-31-2021 End: 01-01-[address] FILIBERTO YING . Facility:[facility]1 Start: 12-31-2021 End: 01-01-2022 Encounter for general adult medical examination without abnormal findings DR FILIBERTO YING . Facility:[facility]1 Start: 11-18-2021 End: 11-18-2021 Patient encounter procedure MD Filiberto Ying Work Phone: [facility] [place] Procedures Date Procedure Procedure Detail Performing Clinician [...] cervical 4 or 5 views Somstephanieta Braxton RESIDENTIAL PROPERTY MANAGER.BEAMING MACHINE OPERATOR Work Phone: Start: 07-28-2022 Radiologic exam chest 2 views Somjita Braxton RESIDENTIAL PROPERTY MANAGER.BEAMING MACHINE OPERATOR Work Phone: Start: 11-18-2021 MRI of head [...] Detail Author Start: 01-03-2030 Urine microalbumin profile [facility] Start: 10-29-2024 End: 10-29-2024 Patient encounter procedure 10/29/2024 4:30 PM EDT Office Visit Neurology [address] [place] [address] [place] [phone] Harman Sullivan MD [address] [place], [place] [id number] F/u hold for botox Neurology Comment on above: F/u hold for botox Start: 07-30-2024 End: 07-30-2024 Patient encounter procedure 07/30/2024 4:30 PM EDT Office Visit Neurology [address] [place] [phone] Harman Sullivan MD [address] [place], [place] [id number] Botox Neurology Comment on above: Botox Start: 04-30-2024 End: 04-30-2024 Patient encounter procedure 04/30/2024 8:30 AM EST Office Visit Neurology [address] [place] [phone] Harman Sullivan MD [address] [place] [address] Botox Neurology Comment on above: Botox Start: 01-30-2024 End: 01-30-2024 Patient encounter procedure 01/30/2024 2:00 PM EDT Office Visit Neurology [address] [place] [phone] Harman Sullivan MD [address] [place] [address] Botox Neurology Comment on above: Botox Start: 01-20-2024 Covid-19 Vaccine ( season) Covid-19 Vaccine ( season) [facility] Start: 01-20-2024 Influenza vaccination [facility] [facility] Start: 11-06-2023 End: 11-06-2023 Patient encounter procedure 11/06/2023 10:30 AM EDT Office Visit Neurology [address] [place] [address] Harman Sullivan MD [address] [place] [address] Three week follow up Neurology Comment on above: Three week follow up Start: 10-31-2023 End: 10-31-2023 Patient encounter procedure 10/31/2023 10:30 AM EDT Office Visit Neurology [address] [place] [id number] Harman Sullivan MD [address] [place], [place] [phone] Botox auth approved Neurology Comment on above: Botox auth approved Start: 09-21-2023 End: 09-21-2023 Patient encounter procedure 09/21/2023 8:30 AM EDT Office Visit Neurology [address] [place] [address] Harman Sullivan MD [address] [place], [place] [phone] Cervical dystonia [G24.3] Neurology Comment on above: Cervical dystonia [G 24.3] Start: 05-21-2023 Behavioral Health Screening Behavioral Health Screening [facility] Start: 05-15-2023 [facility] Start: 05-15-2023 [facility] Start: 04-05-2023 [facility] Start: 03-16-2023 FUV, Provider: Soraya Cage, Status: Pen, Time: 1:00 PM FUV, Provider: Soraya Cage, Status: Pen, Time: 1:00 PM [facility] 320 DO Work Phone: Start: 01-19-2023 Covid-19 Vaccine ( season) Covid-19 Vaccine () [facility] Start: 01-19-2023 Influenza vaccination C [place] Start: 01-12-2023 End: 03-14-2023 CBC panel - Blood by Automated count CBC Lab Routine RLS (restless legs syndrome) Expected: 01/12/2023, Expires: 03/14/2023 [facility] Work Phone: Comment on above: Expected: 01/12/2023 , Expires: 03/14/2023 Start: 01-12-2023 End: 03-14-2023 Cobalamin (Vitamin B12) [Mass/volume] in Serum or Plasma VITAMIN B12 BLOOD Lab Routine RLS (restless legs syndrome) Expected: 01/12/2023, Expires: 03/14/2023 [facility] Work Phone: Comment on above: Expected: 01/12/2023 , Expires: 03/14/2023 Start: 01-12-2023 End: 03-14-2023 Comprehensive metabolic 2000 panel - Serum or Plasma COMP METABOLIC PANEL Lab Routine RLS (restless legs syndrome) Expected: 01/12/2023, Expires: 03/14/2023 [facility] Work Phone: Comment on above: Expected: 01/12/2023 , Expires: 03/14/2023 Start: 01-12-2023 End: 03-14-2023 Ferritin [Mass/volume] in Serum or Plasma FERRITIN BLD Lab Routine RLS (restless legs syndrome) Expected: 01/12/2023, Expires: 03/14/2023 [facility] Work Phone: Comment on above: Expected: 01/12/2023 , Expires: 03/14/2023 Start: 01-12-2023 End: 03-14-2023 Iron and Iron binding capacity panel - Serum or Plasma IRON + TIBC Lab Routine RLS (restless legs syndrome) Expected: 01/12/2023, Expires: 03/14/2023 [facility] Work Phone: Comment on above: Expected: 01/12/2023 , Expires: 03/14/2023 Start: 11-14-2022 NPVRFRL, Provider: Soraya Cage, Status: Pen, Time: 4:20 PM NPVRFRL, Provider: Soraya Cage, Status: Keyur, Time: 4:20 PM [facility] Work Phone: Start: 11-10-2022 FUV, Provider: Saeed Castellanos, Status: Pen, Time: 8:50 AM FUV, Provider: Saeed Castellanos, Status: Pen, Time: 8:50 AM -[facility] 250 DO Work Phone: Start: 10-23-2022 SURGNONUH, Provider: Romero Jones, Status: Pen, Time: 2:00 PM SURGNONUH, Provider: Romero Jones, Status: Pen, Time: 2:00 PM -[facility] 250 DO Work Phone: Start: 09-29-2022 EVENT [facility], Provider : MOOKIE YOUNG MANAGER DATABASE 1,[id number], Status: Pen, Time: 1:00 PM [facility], Provider: MOOKIE YOUNG MANAGER DATABASE 1,[id number], Status: Pen, Time: 1:00 PM -[facility] 250 DO Work Phone: Start: 05-21-2022 DEPRESSION ASSESSMENT DEPRESSION ASS ESSMENT [facility] Start: 01-19-2022 Influenza vaccination INFLUENZA (#1) [facility] Start: 2017 HPV TESTING HPV TESTING [facility] Start: 2017 Screening for malign ant neoplasm of cervix HPV Testing [facility] Start: 01-07-2008 PAP TESTING PAP TESTING [facility] Start: 01-07-2008 Screening for malign ant neoplasm of cervix [facility] Start: 2006 Hepatitis B Vaccine (1 of 3 - 19+ 3-dose series) Hepatitis B Vaccine (1 of 3 - + 3-dose series) [facility] Start: 2005 Anxiety Screening Anxiety Screening [facility] Start: 2005 Depression Screening Depression Scre ening [facility] Start: 2005 HEPATITIS C SCREENING HEPATITIS C [facility] Start: 2005 Hepatitis C screening Hepatitis C [facility] Start: 2005 HIV SCREENING HIV SCREENING [facility] Start: 2005 HIV screening HIV Screening [facility] Start: 1987 COVID-19 VACCINE (#1) COVID-19 VACCI NE (#1) [facility] Start: 1987 HEPATITIS B (1 of 3 - 3-dose series) HEPATITIS B (1 of 3 - 3-dose series) [facility] Start: 1987 Hepatitis B Vaccine (1 of 3 - 3-dose series) Hepatitis B Vaccine (1 of 3 - 3-dose series) [facility] Patient referral [facility] Work Phone: [facility] Immunizations Immunization Date Immunization Notes Care Provider Alina peacock 01-04-2020 tetanus toxoid, redu hawa diphtheria toxoid, and acellular pertussis vaccine, adsorbed Xr A21 [facility] 07-27-2016 tetanus toxoid, redu hawa diphtheria toxoid, and acellular pertussis vaccine, adsorbed Xr A21 [facility] Payers Date Payer Category Payer Private Health Insurance [id number] 2022 Private Health Insurance [id number] 2022 Medicaid [employer] [id number] 2022-Present [phone] [address] [place] [address] Medicaid [id number] 1987 Unknown [id number] 2.840.1.738611.3.579.2. 593 1987 Unknown [id number] 2.16.840.1.506860.3.579.2. 593 1987 Unknown [id number] 2.16840.1.713849.3.579.2. 593 1987 Unknown [id number] 2.16.840.1.373228.3.579.2. 593 1987 Unknown [id number] 2.16.840.1.382417.3.579.2. 593 1987 Unknown [id number] 2.16.840.1.536805.3.579.2. 593 1987 Unknown [id number] 2.16.840.1.647453.3.579.2. 593 1987 Unknown [id number] 2.16.840.1.438101.3.579.2. 593 1987 Unknown [id number] 2.16.840.1.058789.3.579.2. 593 1987 Unknown [id number] 2.16.840.1.216241.3.579.2. 1068 1987 Unknown [id number] 2.16.840.1.342154.3.579.2. 356 1987 Unknown [id number] 2.16.840.1.506176.3.579.2. 356 1987 Unknown [id number] 2.16.840.1.880421.3.579.2. 356 1987 Unknown [id number] 2.16.840.1.507062.3.579.2. 356 1987 Unknown [id number] 2.16.840.1.881454.3.579.2. 356 1987 Unknown [id number] 2.16.840.1.360364.3.579.2. 356 1987 Unknown [id number] 2.16.840.1.241649.3.579.2. 356 1987 Unknown [id number] 2.16.840.1.359468.3.579.2. 1259 1987 Unknown [id number] 2.16.840.1.803358.3.579.2. 1259 1987 Unknown [id number] 2.16.840.1.820878.3.579.2. 196 1959 Medicaid [id number] Medicaid [employer] [id number] Self-pay Self Pay [id number] Unknown P[place]lette BC/BS [id number] Unknown [id number] Unknown HCAP/HFA/FAP Active [id number] Social History Date Type Detail Facility Start: 06-13-2012 End: 12-24-2020 Tobacco smoking status NHIS Never smoked tobacco (finding) [facility] Start: 1987 Sex Assigned At Female [facility] Start: 06-13-2012 Tobacco use and exposure Smokeless tobacco non-user [facility] Work Phone: Start: 07-28-2022 End: 01-30-2024 Alcohol intake Current non-drinker of alcohol (finding) [facility] Start: 01-12-2023 End: 01-30-2024 No caffeine use No caffeine use [facility] Start: 01-12-2023 End: 01-30-2024 Tobacco use panel [facility] Adult Depression Screening Assessment 2 [facility] Start: 07-28-2022 Gender identity Identifies as female gender (finding) [facility] Start: 07-28-2022 Sexual orientation Heterosexual (marzena apdgett) [facility] Goals Date Patient Goal Desired Activity /State Clinical Notes 02-16-2022 to 01-30-2024 Harman Sullivan MD - 01/30/2024 1:49 PM EDTTelephone Encounter - Harman Sullivan MD - 11/01/2023 9:17 AM EDTTelephone Encounter - Harman Sullivan MD - 11/01/2023 9:17 AM EDTPatient Instructions Note Date & Type Note Facility 01-30-2024 Note HNO ID: [id number] Author: HRAMAN SULLIVAN MD Service: ? Author Type: Physician [...] brought in by patient? No Lot #: [id number] Exp: 03/2026 Dilution: 5 units/0.1 ml (100 [...] Optional follow pain # units L R Textile Supervisor 10 units divided in 2 sites XXXXXXX [...] in Treatment Plan? No Harman Sullivan MD [facility] 01-30-2024 History of Presen t illness [...] brought in by patient? No Lot #: [id number] Exp: 03/2026 Dilution: 5 units/0.1 ml (100 [...] Optional follow pain # units L R Textile Supervisor 10 units divided in 2 sites XXXXXXX [...] Harman Sullivan MD documented in this encounter [facility] 11-01-2023 Telephone encounter Note We may need to start reserving some slots for Botox if I'm booking out more than 3 months. Is that something escalating to admin can accomplish? Maybe having like 3 follow up slots a week for botox that revert to regular if not booked a few weeks before that date. [facility] 11-01-2023 Miscellaneous Notes We may need [...] 29 and after. documented in this encounter [facility] 10-31-2023 Note HNO ID: [id number] Author: HARMAN SULLIVAN MD Service: ? Author [...] BOTOX brought in by patient? No Lot #:[id number] Exp: 10/2025 Dilution: 5 units/0.1 ml (100 [...] Optional follow pain # units L R Textile Supervisor 10 units divided in 2 sites XXXXXXX [...] in Treatment Plan? No Harman Sullivan MD [facility] 10-31-2023 History of Presen t illness [...] BOTOX brought in by patient? No Lot #:[id number] Exp: 10/2025 Dilution: 5 units/0.1 ml (100 [...] Optional follow pain # units L R Textile Supervisor 10 units divided in 2 sites XXXXXXX [...] Harman Sullivan MD documented in this encounter [facility] 10-31-2023 Telephone encounter Note Placed at desk for review. [facility] 10-31-2023 Miscellaneous Notes Placed at desk for review. Patient brought in [facility] paperwork for Dr. Sullivan to fill out. Forms placed in providers mailbox. documented in this encounter [facility] 10-31-2023 Telephone encounter Note Patient needs a botox appointment slot opened anytime January 29 and after. [facility] 10-31-2023 Telephone encounter Note Patient brought in [facility] paperwork for Dr. Sullivan to fill out. Forms placed in providers mailbox. [facility] 10-19-2023 Telephone encounter Note Per Epic referral, Botox is approved. 10/16/23 to 10/14/24 200 units every 12 weeks Called patient, and she is agreeable to using the SunOctober 30 slot to get her Botox in [place]. Per Dr. Sullivan, she does not need to then also keep her November 05 appt. [facility] 10-19-2023 Miscellaneous Notes Per Epic referral, Botox is approved. 10/16/23 to 10/14/24 200 units every 12 weeks Called patient, and she is agreeable to using the SunOctober 30 slot to get her Botox in [place]. Per Dr. Sullivan, she does not need to then also keep her November 05 appt. Prior Authorization PENDING Medication/ Treatment: BOTOX Submitted Via Epic Referral Attempted to submit via phone to expedite request, but plan does not allow this. documented in this encounter [facility] 10-18-2023 Miscellaneous Notes Images from the original note were not included. Maria Del Carmen Borges APRN.BEAMING MACHINE OPERATOR You6 minutes ago (8:35 AM) I can for this time, but Dr. Hernandez moving forward as he is managing her neck tightness. PRATIBHA Mccullough, RN, BA documented in this encounter [facility] 10-18-2023 Telephone encounter Note Images from the original note were not included. Maria Del Carmen Borges APRN.BEAMING MACHINE OPERATOR You6 minutes ago (8:35 AM) I can for this time, but Dr. Hernandez moving forward as he is managing her neck tightness. PRATIBHA Mccullough, RN, BA [facility] Work Phone: 10-11-2023 Telephone encounter Note Prior Authorization PENDING Medication/ Treatment: BOTOX Submitted Via Epic Referral Attempted to submit via phone to expedite request, but plan does not allow this. [facility] 10-03-2023 Telephone encounter Note Images from the original note were not included. Maria Del Carmen Borges APRN.BEAMING MACHINE OPERATOR You6 minutes ago (3:03 PM) As she is now working with movement disorder for this concern, I would defer this to their team. PRATIBHA Mccullough, RN, BA [facility] Work Phone: 10-03-2023 Miscellaneous Notes Images from the original note were not included. Maria Del Carmen Borges APRN.BEAMING MACHINE OPERATOR You6 minutes ago (3:03 PM) As she is now working with movement disorder for this concern, I would defer this to their team. PRATIBHA Mccullough, RN, BA documented in this encounter [facility] 09-21-2023 Instructions Harman Sullivan MD - [...] can increase further documented in this encounter [facility] 09-21-2023 Telephone encounter Note Requested image transfer from [facility] for most recent head/ neck imaging. [facility] 09-21-2023 Note HNO ID: [id number] Author: HARMAN SULLIVAN MD Service: ? 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 [facility] 09-21-2023 History of Presen t illness [...] cervical dystonia, and RLS who presents to critical access hospital care. Her examination demonstrates normal head [...] next month for Botox. Harman Sullivan MD [facility] Neurology documented in this encounter [facility] 09-21-2023 Miscellaneous Notes Requested image transfer from [facility] for most recent head/ neck imaging. documented in this encounter [facility] 09-13-2023 Telephone encounter Note Images from the original note were not included. Maria Del Carmen Borges, LONNY.BEAMING MACHINE OPERATOR You 58 minutes ago (1:58 PM) Keep the appointment until she sees Dr. Sullivan on September 20. PRATIBHA Mccullough, RN, BA [facility] Work Phone: 09-13-2023 Miscellaneous Notes Images from the original note were not included. Maria Del Carmen Borges APRN.CNP You 58 minutes ago (1:58 PM) Keep the appointment until she sees Dr. Sullivan on September 20. PRATIBHA Mccullough, RN, BA documented in this encounter [facility] 09-04-2023 History of Presen t illness Narrative Brittanie Garcia is a 38 year old female. Patient presents with: Follow Up Today I had the opportunity to have a virtual visit with Brittanie Garcia I have communicated my name and active licensure. The patient's identity and physical location were verified at the time of this visit. Either the patient or their legal service support representative has been informed of the risks [...] seeing the movement disorder clinic here at [facility] for an opinion about her [...] which included preparing to see the patient, [id number] patient care, completing clinical documentation, obtaining and/or reviewing separately obtained history, and counseling and educating the patient/family/caregiver. There is no problem list on file for this patient. No orders found for this visit on 09/04/23. Maria Del Carmen Borges MSN, RESIDENTIAL PROPERTY MANAGER, ELECTRICAL PROSPECTING ENGINEER-C documented in this encounter [facility] 09-04-2023 Note HNO ID: [id number] Author: MARIA DEL CARMEN BORGES APRN.ZULMA Service: [...] visit. Either the patient or their legal service support representative has been informed of the risks [...] seeing the movement disorder clinic here at [facility] for an opinion about her [...] with her Mari (more content not included)... [facility] 02-19-2023 Miscellaneous Notes Images from the original note were not included. Maria Del Carmen Borges APRN.BEAMING MACHINE OPERATOR You 1 minute ago (12:27 PM) Thank you. This is a normal value. PRATIBHA Louis, RN, BA Images from the original note were not included. Evonne GAMBOA BSN, RN, BA Scanned in medical records from [facility] for review documented in this encounter [facility] 02-09-2023 Miscellaneous Notes Images from the original note were not included. Maria Del Carmen Borges APRN.ZULMA You 2 minutes ago (10:23 AM) Reviewed. PRATIBHA Louis, RN, BA Scanneed in medical records from [facility] for review documented in this encounter [facility] 01-19-2023 Miscellaneous Notes Images from the original note were not included. Maria Del Carmen Borges APRN.BEAMING MACHINE OPERATOR You 21 minutes ago (8:34 AM) I sent cyclobenzaprine (Flexeril) 5 mg at bedtime as needed PRATIBHA Mccullough, RN, BA documented in this encounter [facility] 01-12-2023 History of Presen t illness [...] Most likely receiving 65 units between procerus, middleware architect, frontalis, and temporalis muscles. Only receiving 90 [...] Tizanidine Methocarbamol Metaxalone Carisoprodol She does have [place] prescribed for the neck pain. 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 Finger extensor 5/5. Finger flexor 5/5. Pronation [...] clonus of ankles. Coordination: Finger-to- nose-finger and hhus-br-memp intact bilaterally. No ataxia of arms. No [...] seeing the movement disorder clinic here at [facility] for an opinion about her [...] which included preparing to see the patient, [id number] patient care, completing clinical documentation, obtaining and/or reviewing separately obtained history, performing a medically appropriate examination, counseling and educating the patient/family/caregiver, and ordering medications, tests, or procedures. There is no problem list on file for this patient. Office Visit on 01/12/23 CBC FERRITIN BLD IRON + TIBC VITAMIN B12 BLOOD COMP METABOLIC PANEL CONSULT TO NEUROLOGY Maria Dle Carmen Borges MSN, RESIDENTIAL PROPERTY MANAGER, ELECTRICAL PROSPECTING ENGINEER-C 1. The nursing staff and medical assistants [...] your PCP/referring physician documented in this encounter [facility] 08-11-2022 Instructions Nayely Limon APRN.CNP - 08/11/2022 10:44 AM EDT Please send MRI result to us. Placed a consult for neuromuscular. Please call [phone] for appointments. I would suggest to bring your MRI (CD) to this appointment. Placed a consult for functional medicine. Please call [phone] for appointments. Follow up as needed documented in this encounter [facility] 08-11-2022 History of Presen t illness Narrative Images from the original note were not included. Rheumatology FOLLOW UP VISIT Date of Service: 08/11/2022 Patient: Brittanie Garcia Medical Record: [id number] Primary Care Physician: Fliiberto Ying MD Last Rheumatology visit: 07/28/2022 (with Nayely Limon) I have communicated my name and active licensure. The patient's identity and physical location were verified at the time of this visit. 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 Started Seeing pain management since April for headache and neck pain. She has [place] takes once a week. Hx of restless [...] Clinical Fibromyalgia Diagnostic Criteria questionnaire Questionnaire scores: Luna sleepiness scale: 15 (Normal < 10) MDQ (mood disorder questionnaire): 6 (Normal < 7) PHQ (patient health questionnaire): depression 10 (Normal < 5), anxiety 9 (Normal < 5) Fibromyalgia evaluation: Wide spread pain scale (WPI) 7, symptom severity (SS) 9 The patient meets the 2016 ACR ([employer] [employer]) revised criteria for fibromyalgia [...] an optimal response to treatment. Nayely Limon APRN.BEAMING MACHINE OPERATOR Return if symptoms worsen or fail to [...] Time: 8:44 AM documented in this encounter [facility] 07-28-2022 Instructions Nayely Limon APRN.CNP - 07/28/2022 1:58 PM EST Obtain lab and XR today Follow up in 10-14 days documented in this encounter [facility] 07-28-2022 History of Presen t illness Narrative Images from the original note were not included. Rheumatology CONSULTATION Date of Service: 07/28/2022 Patient: Brittanie Garcia Medical Record: [id number] Primary Care Physician: Filiberto Ying MD, MD Last Rheumatology visit: 07/28/2022 (with Nayely Limon) Referring Provider: Kenna Sheehan [address] [place] [id number] Brittanie Garcia is here today at request of Kenna Sheehan PA-C specifically for consultation of my opinion in regards to the chief complaint listed below. 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 Started Seeing pain management since April for headache and neck pain. She has [place] takes once a week. Hx of restless [...] Take 1 mg by mouth once daily. Watdwbuo-Tt-Sar-Fe-FA (P-D CARTER PLUS) Tab Take 1 tablet [...] - XR CHEST 2V FRONTAL/LAT Nayely Limon APRN.BEAMING MACHINE OPERATOR Return in about 10 days (around 08/07/2022). I spent a total of 75 minutes on the date of the service which included preparing to see the patient, dadf-on-tlym patient care, completing clinical documentation, obtaining and/or [...] Time: 2:07 PM documented in this encounter [facility] 07-06-2022 Note CONSULTATION CONSULTATION DATE: 07/06/2022 [...] no difference. She was also started on [place] 5/325 daily p.r.n., which she says is helpful. We obtained a cervical x-ray back in January, which shows very minimal pathology between C2 and C3 discs. At this time, procedures are not indicated. Medications includes [place] 5/325 daily, baclofen 10 mg b.i.d., Ambien [...] time, our clinic will just maintain her [place] 5/325 daily p.r.n. She will continue for treatments with [facility]. I did recommend, however, to continue with self massage and to trial home cervical traction. We will see the patient in three months' time to maintain her medications and patient is in agreement. [facility] 04-06-2022 Note CONSULTATION PAIN MANAGEMENT CONSULTATION [...] stated that today she has seen an arson investigator due to having lock jaw episodes. Activities that aggravate her pain are working on the computer, lying down, practice performance manager hours and sleep. She describes her headaches [...] as she agrees to this plan. [facility] 03-02-2022 Note CONSULTATION CONSULTATION DATE: 03/02/2022 [...] Activities such as pushing, pulling, lying down, practice performance manager hours and housework aggravate her pain. The [...] and all questions are answered today. [facility] 02-16-2022 Note CONSULTATION CONSULTATION DATE: 02/16/2022 [...] worsened at that time. 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 [facility] Chief complaint Narrative - Reported BRITTANIE [...] Notably she has no rebound tachycardia.Recommendations, obtain [employer] monitoring, tilt table test, refer to either EP or syncope clinic, I can follow-up on a as needed basis, as there is no interventional necessity at this time [facility] Work Phone: Chief complaint Narrative - [...] Notably she has no rebound tachycardia.Recommendations, obtain [employer] monitoring, tilt table test, refer to either EP or syncope clinic, I can follow-up on a as needed basis, as there is no interventional necessity at this time [facility] Work Phone: Chief complaint Narrative - [...] Notably she has no rebound tachycardia.Recommendations, obtain [facility] monitoring, tilt table test, refer to either EP or syncope clinic, I can follow-up on a as needed basis, as there is no interventional necessity at this time [facility] DO Work Phone: Chief complaint Narrative [...] is no interventional necessity at this time [facility] Work Phone: Evaluation note No assessment inform ation available [facility] Work Phone: Evaluation note Diagnosis Neck pain, chronic Cervicalgia [facility] Neck pain, chronic- Primary Cervicalgia [facility] Diagnosis Neck pain, chronic- Primary Cervicalgia Fibromyalgia Mylagia and myositis, unspecified [facility] Diagnosis Cervical dystonia- Primary Spasmodic torticollis Neck tightness Unspecified musculoskeletal disorders and symptoms referable to neck RLS (restless legs syndrome) Restless legs syndrome (RLS) [facility] Diagnosis Onset Date Resolution Status Left breast mass acute [facility] Work Phone: Evaluation note* Diagnosis Cervical [...] Neck pain Cervicalgia [facility] Discharge instructions Additional Instructions DISCHARGE INSTRUCTIONS [...] directed for pain unless a prescription was provided.[facility] Work Phone: [facility] for referral (narrative)* Diagnostic Procedure Only (Routine) - Closed Specialty Diagnoses / Procedures Referred By Contac t Referred To Contact XR IMAGING Diagnoses Neck pain, chronic Procedures XR CERV OTHER 4V AP/LAT/OBL RADEX SPINE CERVICAL 4 OR 5 VIEWS Nayely Limon APRN.CNP [address] [place] [address] Xr Imaging Referral ID Status Reason Start Date Expiration Date V isits Requested Visits Authorized [id number] Closed Auto-Generate d Referral 07/28/2022 08/27/2023 1 1 [facility] for referral (narrative)* Diagnostic Procedure Only (Routine) - Closed Specialty Diagnoses / Procedures Referred By Contac t Referred To Contact XR IMAGING Diagnoses Neck pain, chronic Procedures XR CERV OTHER 4V AP/LAT/OBL RADEX SPINE CERVICAL 4 OR 5 VIEWS Nayely Limon APRN.CNP [address] [place] [phone] Xr Imaging Referral ID Status Reason Start Date Expiration Date V isits Requested Visits Authorized [id number] Closed Auto-Generate d Referral 07/28/2022 08/27/2023 [facility] Diagnostic Procedure Only (Routine) - Closed Specialty Diagnoses / Procedures Referred By Ross t Referred To Contact XR IMAGING Diagnoses Neck pain, chronic Procedures XR CERV OTHER 4V AP/LAT/OBL RADEX SPINE CERVICAL 4 OR 5 VIEWS Nayely Limon APRN.BEAMING MACHINE OPERATOR [address] [place] [address] Xr Imaging Referral ID Status Reason Start Date Expiration Date V isits Requested Visits Authorized [id number] Closed Auto-Generate d Referral 07/28/2022 08/27/2023 1 1 [facility] Chief Complaint and Reason for Visit [...] pain, chronic Procedures CONSULT TO NEUROLOGY OFFICE/OUTPATIENT [facility] 60-74 MINUTES Nayely Limon APRN.BEAMING MACHINE OPERATOR [address] [phone] Referral ID Status Reason Start Date Expiration Date Visits Requested Visits Authorized [id number] Authorized PCP Requested Referral 08/11/2022 08/11/2023 1 1 Specialty Diagnoses / Procedures Referred By Contac t Referred To Contact Diagnoses Fibromyalgia Procedures CONSULT TO FUNCTIONAL MEDICINE OFFICE/OUTPATIENT [facility] MDM 60-74 MINUTES Nayely Limon APRN.BEAMING MACHINE OPERATOR [address] [phone] Referral ID Status Reason Start Date Expiration Date Visits Requested Visits Authorized [id number] Authorized PCP Requested Referral 08/11/2022 08/11/2023 1 1 Specialty Diagnoses / Procedures Referred By Contac t Referred To Contact Neurology Diagnoses Cervical dystonia Neck tightness Procedures CONSULT TO NEUROLOGY OFFICE/OUTPATIENT [facility] 60-74 MINUTES Maria Del Carmen Borges, LONNY.BEAMING MACHINE OPERATOR [id number] [place] [address] Referral ID Status Reason Start Date Expiration Date Visits Requested Visits Authorized [id number] Pending Review PCP Requested Referral 01/12/2023 01/12/2024 1 1 Specialty Diagnoses / Procedures Referred By Contac t Referred To Contact Neurology Diagnoses Cervical dystonia Procedures CONSULT TO NEUROLOGY OFFICE/OUTPATIENT [facility] 60 MINUTES JonyMaria Del Carmen, LONNY.BEAMING MACHINE OPERATOR [id number] [place] [address] Referral ID Status Reason Start Date Expiration Date Visits Requested Visits Authorized [id number] Authorized PCP Requested Referral 09/04/2023 09/03/2024 1 [...] Active Kenna Sheehan PA-C Attending Provider Active Powder Mixer Relationship Specialty Start Date End Date Filiberto Ying MD PCP - General Family Medicine 06/05/12 Kenna Sheehan PA-C [address] [address] Referring Neurology 07/19/22 Powder Mixer Relationship Specialty Start Date End Date Filiberto Ying MD PCP - General Family Medicine 06/05/12 Kenna Sheehan PA-C [address] [address] Referring Neurology 07/19/22 Powder Mixer Relationship Specialty Start Date End Date Filiberto Ying MD PCP - General Family Medicine 06/05/12 Kenna Sheehan PA-C [address] [address] Referring Neurology 07/19/22 Powder Mixer Relationship Specialty Start Date End Date Filiberto Ying MD PCP - General Family Medicine 06/05/12 Kenna Sheehan PA-C [address] [address] Referring Neurology 07/19/22 Powder Mixer Relationship Specialty Start Date End Date Filiberto Ying MD PCP - General Family Medicine 06/05/12 Kenna Sheehan PA-C [address] [address] Referring Neurology 07/19/22 Powder Mixer Relationship Specialty Start Date End Date Fiilberto iYng MD PCP - General Family Medicine 06/05/12 Kenna Sheehan PA-C [address] [id number] Referring Neurology 07/19/22 Powder Mixer Relationship Specialty Start Date End Date Filiberto Ying MD PCP - General Family Medicine 06/05/12 Kenna Sheehan PA-C [address] [address] [id number] Referring Neurology 07/19/22 Team Status: Inactive Member Role Status Dates Filiberto Ying MD Primary Care Provider Active Maria Del Carmen Borges APRN [facility] Attending Provider Active Powder Mixer Relationship Specialty Start Date End Date Filiberto Ying MD PCP - General Family Medicine 06/05/12 Kenna Sheehan PA-C [address] [id number] Referring Neurology 07/19/22 Powder Mixer Relationship Specialty Start Date End Date Filiberto Ying MD PCP - General Family Medicine 06/05/12 Kenna Sheehan PA-C [address] [id number] Referring Neurology 07/19/22 Powder Mixer Relationship Specialty Start Date End Date Filiberto Ying MD PCP - General Family Medicine 06/05/12 Kenna Sheehan PA-C [address] [address] Referring Neurology 07/19/22 Powder Mixer Relationship Specialty Start Date End Date Filiberto Ying MD PCP - General Family Medicine 06/05/12 Kenna Sheehan PA-C [address] [address] Referring Neurology 07/19/22 Powder Mixer Relationship Specialty Start Date End Date Filiberto Ying MD PCP - General Family Medicine 06/05/12 Kenna Sheehan PA-C [address] [place] [address] Referring Neurology 07/19/22 Powder Mixer Relationship Specialty Start Date End Date Filiberto Ying MD PCP - General Family Medicine 06/05/12 Kenna Sheehan PA-C [address] [address] Referring Neurology 07/19/22 Powder Mixer Relationship Specialty Start Date End Date Filiberto Ying MD PCP - General Family Medicine 06/05/12 Kenna Sheehan PA-C [address] [place] [phone] Referring Neurology 07/19/22 Team Status: Inactive Member Role Status Dates Filiberto Ying MD Primary Care Provider Active Start: January 28, 2024 End: January 28, 2024 Dano Mcdaniel DO Attending Provider Active Start: January 28, 2024 End: January 28, 2024 Powder Mixer Relationship Specialty Start Date End Date Filiberto Ying MD PCP - General Family Medicine 06/05/12 Kenna Sheehan PA-C [address] [place] [address] Referring Neurology 07/19/22 Goals (unrecognized section and [...] or prosecute any alcohol or drug abuse patient.[facility] the event this information is protected by the Federal Confidentiality of Alcohol and Drug Abuse Patient Records regulations: The Federal rules restrict any use of the information to criminally investigate or prosecute any alcohol or drug abuse patient.[facility] the event this information is protected by the Federal Confidentiality of Alcohol and Drug Abuse Patient Records regulations: The Federal rules restrict any use of the information to criminally investigate or prosecute any alcohol or drug abuse patient.[facility] the event this information is protected by the Federal Confidentiality of Alcohol and Drug Abuse Patient Records regulations: The Federal rules restrict any use of the information to criminally investigate or prosecute any alcohol or drug abuse patient.[facility] the event this information is protected by the Federal Confidentiality of Alcohol and Drug Abuse Patient Records regulations: The Federal rules restrict any use of the information to criminally investigate or prosecute any alcohol or drug abuse patient.[facility] the event this information is protected by the Federal Confidentiality of Alcohol and Drug Abuse Patient Records regulations: The Federal rules restrict any use of the information to criminally investigate or prosecute any alcohol or drug abuse patient.[facility] the event this information is protected by the Federal Confidentiality of Alcohol and Drug Abuse Patient Records regulations: The Federal rules restrict any use of the information to criminally investigate or prosecute any alcohol or drug abuse patient.[facility] the event this information is protected by the Federal Confidentiality of Alcohol and Drug Abuse Patient Records regulations: The Federal rules restrict any use of the information to criminally investigate or prosecute any alcohol or drug abuse patient.[facility] the event this information is protected by the Federal Confidentiality of Alcohol and Drug Abuse Patient Records regulations: The Federal rules restrict any use of the information to criminally investigate or prosecute any alcohol or drug abuse patient.[facility] the event this information is protected by the Federal Confidentiality of Alcohol and Drug Abuse Patient Records regulations: The Federal rules restrict any use of the information to criminally investigate or prosecute any alcohol or drug abuse patient.[facility] the event this information is protected by the Federal Confidentiality of Alcohol and Drug Abuse Patient Records regulations: The Federal rules restrict any use of the information to criminally investigate or prosecute any alcohol or drug abuse patient.[facility] the event this information is protected by the Federal Confidentiality of Alcohol and Drug Abuse Patient Records regulations: The Federal rules restrict any use of the information to criminally investigate or prosecute any alcohol or drug abuse patient.[facility] the event this information is protected by the Federal Confidentiality of Alcohol and Drug Abuse Patient Records regulations: The Federal rules restrict any use of the information to criminally investigate or prosecute any alcohol or drug abuse patient.[facility] the event this information is protected by the Federal Confidentiality of Alcohol and Drug Abuse Patient Records regulations: The Federal rules restrict any use of the information to criminally investigate or prosecute any alcohol or drug abuse patient.[facility] the event this information is protected by the Federal Confidentiality of Alcohol and Drug Abuse Patient Records regulations: The Federal rules restrict any use of the information to criminally investigate or prosecute any alcohol or drug abuse patient.[facility] Hospital[facility] the event this information is protected by the Federal Confidentiality of Alcohol and Drug Abuse Patient Records regulations: The Federal rules restrict any use of the information to criminally investigate or prosecute any alcohol or drug abuse patient.[facility] Hospital[facility] the event this information is protected by the Federal Confidentiality of Alcohol and Drug Abuse Patient Records regulations: The Federal rules restrict any use of the information to criminally investigate or prosecute any alcohol or drug abuse patient.[facility] Hospital[facility] the event this information is protected by the Federal Confidentiality of Alcohol and Drug Abuse Patient Records regulations: The Federal rules restrict any use of the information to criminally investigate or prosecute any alcohol or drug abuse patient.[facility] HospitalIn the event this information is protected by the Federal Confidentiality of Alcohol and Drug Abuse Patient Records regulations: The Federal rules restrict any use of the information to criminally investigate or prosecute any alcohol or drug abuse patient.[facility] HospitalIn the event this information is protected by the Federal Confidentiality of Alcohol and Drug Abuse Patient Records regulations: The Federal rules restrict any use of the information to criminally investigate or prosecute any alcohol or drug abuse patient.[facility] Hospital[facility] the event this information is protected by the Federal Confidentiality of Alcohol and Drug Abuse Patient Records regulations: The Federal rules restrict any use of the information to criminally investigate or prosecute any alcohol or drug abuse patient.[facility] HospitalIn the event this information is protected by the Federal Confidentiality of Alcohol and Drug Abuse Patient Records regulations: The Federal rules restrict any use of the information to criminally investigate or prosecute any alcohol or drug abuse patient.[facility] Reason for Visit (unrecogniz ed section and content) Reason Comments Neck Pain Reason Comments Neck Pain Follow up Reason Comments New Patient Reason Comments Results [facility] Reason Comments Results [facility] Reason Comments Follow Up Reason Onset Date Comments Refill Request 09/15/2023 Reason Comments Request Outside Medical Records Reason Comments Cervical Dystonia Specialty Diagnoses / Procedures Referred By Contac t Referred To Contact Neurology Diagnoses Cervical dystonia Procedures CONSULT TO NEUROLOGY OFFICE/OUTPATIENT [facility] 60 MINUTES Maria Del Carmen Borges, RESIDENTIAL PROPERTY MANAGER.BEAMING MACHINE OPERATOR [address] [place] [address] Referral ID Status Reason Start Date Expiration Date V isits Requested Visits Authorized [id number] Closed PCP Requested Referral 09/04/2023 09/03/2024 1 1 Reason Onset Date Comments Refill Request 10/18/2023 Reason Comments Insurance Authorization Botox Reason Comments Botox Injection Specialty Diagnoses / Procedures Referred By Contac t Referred To Contact ADULT NEUROLOGY Diagnoses Chronic migraine without aura, intractable, with status migrainosus Procedures BOTULINUM TOXIN A PER 1 UNIT CHEMODERVATE FACIAL/TRIGEM/CERV MUSC MIGRAINE Harman Sullivan MD [address] [place] [address] [place] [address] [address] [place] [address] Referral ID Status Reason Start Date Expiration Date V isits Requested Visits Authorized [id number] Authorized 10/11/2023 10/14/2024 99 99 Reason Comments Appointment INFORMATION SOURCE (unrecogn ized section and content) DATE CREATED AUTHOR 09/07/2022 [facility] DATE CREATED AUTHOR AUTHOR'S ORGANIZ ATION 11/15/2022 [facility] DATE CREATED AUTHOR AUTHOR'S ORGANIZ ATION 01/01/2023 [facility] DATE CREATED AUTHOR AUTHOR'S ORGANIZ ATION 02/04/2023 [facility] DATE CREATED AUTHOR AUTHOR'S ORGANIZ ATION 07/30/2023 [facility] DATE CREATED AUTHOR AUTHOR'S ORGANIZ ATION 01/30/2024 [facility] DATE CREATED AUTHOR AUTHOR'S ORGANIZ ATION 02/01/2024 [facility] DATE CREATED AUTHOR AUTHOR'S ORGANIZ ATION 02/22/2024 [facility] FOR RECORDS PERTAINING TO PATIENTS WHO ARE [...] BE BASED ON THE PRIMARY CLINICAL RECORDS. [facility] [employer] provides no warranty or guarantee of the accuracy or completeness of information in this document.
== END 2024-04-16 06:49 | disposition home or self-care (01) ==
LOC: MRI 06:48
PROVIDERS: PCP Family Medicine; Visit Provider Nurse Practitioner
DX: M50.30 Other cervical disc degeneration, unspecified cervical region (principal); M47.812 Spondylosis without myelopathy or radiculopathy, cervical region
CPT/HCPCS: 72141

== ENCOUNTER 2024-07-31 04:37 | Emergency (ER) | payer OTHER, SELFPAY ==
[2024-07-31 04:42] VITALS: BP 107/61; PULSE 79; TEMP 37.6; O2SAT 97; BMI 29.3
[2024-07-31] MEDS: ORPHENADRINE 60 MG/ 2 ML VIAL IM (05:04)
--- NOTE | 2024-07-31 05:04 | ED_ITS ---
HPI HPI - General Adult General Chief complaint: Upper Respiratory Infection Stated complaint: COUGH,FEVER,NECK PAIN Time Seen by Provider: 07/31/24 04:41 Source: patient Mode of arrival: walk-in Limitations: no limitations History of Present Illness HPI narrative: The patient is a 39-year-old female presenting to the emergency department with fever, cough, nasal congestion, and congestion in her upper chest. She has got a cough that is mildly productive. She does not smoke or vape. Patient has no history of asthma. Patient states that she had a fever and discovered at this morning. She took Tylenol and Motrin. She took this medication at 2 AM. She thought it would help her neck pain. Patient does have a history of chronic neck pain. She takes [place] and diazepam chronically for this. She took her last dose last night. She is on a pain contract. She states typically Nubain helps her or Norflex. She states steroids make her pain worse. Pain is a 10 out of 10. Worse to touch or move her head. Relieved by nothing. Related Data Home Medications ?Medication ?Instructions ?Recorded ?Confirmed cetirizine 10 mg tablet (Allergy 10 mg PO DAILY 03/21/23 02/18/24 Relief (cetirizine)) diazepam 10 mg tablet 10 mg PO DAILY PRN muscle spasm 03/21/23 02/18/24 onabotulinumtoxinA 200 unit 300 unit IM .every 3 months 03/21/23 02/18/24 solution for injection (Botox) pramipexole 1 mg tablet (Mirapex) 1 mg PO DAILY 03/21/23 02/18/24 minocycline 50 mg capsule 50 mg PO DAILY 01/22/24 02/18/24 Previous Rx's ?Medication ?Instructions ?Recorded cyclobenzaprine 5 mg tablet 5 mg PO TID PRN muscle spasm #10 01/22/24 tabs diclofenac sodium 50 mg 50 mg PO BID #60 tabs 01/30/24 tablet,delayed release hydrocodone 5 mg-acetaminophen 325 1 tab PO DAILY PRN pain #14 tabs 01/30/24 mg tablet hydrocodone 5 mg-acetaminophen 325 1 tab PO DAILY PRN pain #30 tabs 03/31/24 mg tablet Allergies Allergy/AdvReac Type Severity Reaction Status Date / Time caffeine Allergy Mild Vomiting Verified 07/31/24 04:42 adhesive Allergy Blister Verified 07/31/24 04:42 dihydroergotamine Allergy Difficulty Verified 07/31/24 04:42 Breathing metoprolol Allergy Swelling Verified 07/31/24 04:42 of Lip/Tongue/Throat Opioid HPI Opioid Management Most Recent Opioid Data: Last Pain Scale 3 02/18/24 07:33 02/18/24 Review of Systems ROS Narrative 10 Systems were reviewed, and unless not ed in the HPI, all other systems are reviewed, unremarkable, or noncontributory. PFSH PFS Social History Smoking status: Never smoker Little interest or pleasure in doing things: not at all Feeling down, depressed, or hopeless: not at all Exam Narrative Exam Narrative: Prior to examining the patient, I have washed with hospital approved and provided Antiseptic Hand Implementation Advisor and have also applied gloves.? Prior to touching the patient, I asked for consent to examine the patient.? General: Alert and oriented, well nourished, mild distress. Eye: PERRL, EOMI, normal conjunctiva. HENT: Normocephalic, normal hearing, moist oral mucosa, no scleral icterus, tympanic membranes are not red, dull, bulging. Posterior oropharynx has no erythema, edema, or exudate. Neck: Supple, non-tender, no carotid bruits, no JVD, no lymphadenopathy. Patient has bilateral paraspinal musculature tenderness that radiates down into the trapezius muscles. Lungs: Clear to auscultation and percussion, non-labored respiration. No rhonchi, rales wheeze Heart: Normal rate, regular rhythm, no murmur, gallop or edema. Abdomen: Soft, non-tender, non-distended, normal bowel sounds, no masses. Musculoskeletal: Normal range of motion and strength, no tenderness or swelling. Skin: Skin is warm, dry and pink, no rashes or lesions. Neurologic: Awake, alert, and oriented X3, CN II-XII intact. Psychiatric: Cooperative, appropriate mood and affect.? Following the conclusion of the examination, I have washed my hands thoroughly after removing examination gloves. Constitutional Vital Signs, click to edit/add: Last Vital Signs Temp 99.7 F 07/31/24 04:42 Pulse 79 07/31/24 04:42 Resp 16 07/31/24 04:42 BP 107/61 07/31/24 04:42 Pulse Ox 97 07/31/24 04:42 O2 Del Method Room Air 07/31/24 04:42 Course Course Hospital Course: Patient is a 39-year-old female presenting to the emergency department with both URI type symptoms and acute exacerbation of her chronic neck pain. Patient received COVID and influenza viral swabs. We give the patient some Norflex to see if we can get some control of her neck discomfort. Reevaluation(s) Reevaluation #1: No relief with the Norflex. Patient will be given a dose of [place] and be discharged with 3 days of [place]. She states that she can get her Valium refilled. Time: 05:58 Vital Signs Vital signs: Vital Signs Temperature 99.7 F 07/31/24 04:42 Pulse Rate 79 07/31/24 04:42 Respiratory Rate 16 07/31/24 04:42 Blood Pressure 107/61 07/31/24 04:42 Pulse Oximetry 97 07/31/24 04:42 Oxygen Delivery Method Room Air 07/31/24 04:42 Temperature 99.7 F 07/31/24 04:42 Pulse Rate 79 07/31/24 04:42 Respiratory Rate 16 07/31/24 04:42 Blood Pressure 107/61 07/31/24 04:42 Pulse Oximetry 97 07/31/24 04:42 Oxygen Delivery Method Room Air 07/31/24 04:42 Medical Decision Making MDM Narrative Medical decision making narrative: Patient is a 39-year-old female presenting with URI and chronic neck pain symptoms. In reference to her URI type symptoms were getting a COVID and influenza swabs on her. The patient does not have a sufficient amount of sore throat pain and she has a cough and all the other ancillary symptoms so her Centor criteria is not very high. The patient would benefit from from steroids for those type of symptoms but she says it makes her neck pain worse so we will forego those until the viral swabs returned. In reference to her chronic neck pain, she ran out of her [place] and Valium last night. She does not have an appointment to get new medication since she does not have any refills on these ones. She reports she has not seen her physician in about 6 months. I do not know what type of pain management contract the patient has but I would be concerned that she does not have the diazepam medication. That can cause intractable seizures. Patient does not have any evidence of meningeal signs that I would consider concerning for meningitis. Differential Diagnosis Differential Diagnosis: COVID, influenza, strep, URI, pneumonia Medical Records Medical records reviewed: Yes I reviewed the patient's medical records Lab Data Lab results reviewed: Yes I reviewed the patient's lab results Labs: Lab Results 07/31/24 Range/Units 04:47 Influenza Type A Ag Negative Influenza Type B Ag Negative SARS-CoV-2 Ag (CV2AG) Negative (NEGATIVE) Discharge Plan Discharge Chief Complaint: Upper Respiratory Infection Clinical Impression: Upper respiratory infection, Neck pain Patient Disposition: Home, Self-Care Time of Disposition Decision: 05:59 Condition: Good Mode of Transportation: Private Vehicle Prescriptions / Home Meds: No Action cetirizine [Allergy Relief (cetirizine)] 10 mg tablet 10 mg PO DAILY diazepam 10 mg tablet 10 mg PO DAILY PRN (Reason: muscle spasm) Botox 200 unit recon soln 300 unit IM .every 3 months pramipexole [Mirapex] 1 mg tablet 1 mg PO DAILY minocycline 50 mg capsule 50 mg PO DAILY cyclobenzaprine 5 mg tablet 5 mg PO TID PRN (Reason: muscle spasm) Qty: 10 0RF hydrocodone-acetaminophen 5-325 mg tablet 1 tab PO DAILY PRN (Reason: pain) Qty: 14 0RF diclofenac sodium 50 mg tablet,delayed release (DR/EC) 50 mg PO BID Qty: 60 2RF hydrocodone-acetaminophen 5-325 mg tablet 1 tab PO DAILY PRN (Reason: pain) Qty: 30 0RF Print Language: Frisian Instructions: Upper Respiratory Infection (ED), Chronic Neck Pain (DC) Referrals: Danny Obrien MD [Primary Care Provider] - 1 week
--- OUTSIDE RECORDS SUMMARY | 2024-07-31 05:09 | XMS_ITS | CCD ---
Author Organization [facility] Care Team Providers Care Provider Relations Manager Name Role Phone MD Filiberto Ying Primary Care Provider [phone] PURVI Sheehan Attending Provider [phone] STEPAN .DR DE LOS SANTOS Primary [...] Admitting Unavailable HOY ., DR DE LOS SATNOS Primary Care Unavailable VIDAL ., CASSI Consulting [...] Stahl Referring Unava ilneris Ying, Dr. Filiberto Fullre Primary [facility] Department Unavail able Emanuel, Dr. Saeed Stahl Attending [...] Stahl Attending Unava ilable Stepan, Dr. Filiberto Fluler Primary Care Unavail able Emanuel, Dr. Saeed Stahl Referring Unava MD Filiberto Biggs Primary Care Provider LONNY Borges Attending Provider MD Filiberto Ying Primary Care Provider [phone] LONNY Borges Attending Provider DO Dano Pyle Attending Provider [phone] MD Filiberto Ying Primary Care Provider [phone] Filiberto Ying MD Primary Care Provider [phone] MD Filiberto Ying Primary Care Provider [phone] DO Dano Pyle Attending Provider [phone] HARMAN SULLIVAN Attending Unavailable MARIA DEL CARMEN BORGES Referring Unavailable HODEMETRIO KempLAS M Primary Care Unavailable WEISSWANG, HARMAN Referring Unavailable WEISSHARMAN PIÑA Attending Unavailable HOTy, FILIBERTO M Primary Care Unavailable WEISSHARMAN PIÑA Attending Unavailable STEPAN, FILIBERTO M Primary Care Unavailable WEISSWANG, HARMAN Referring Unavailable MARIA DEL CARMEN BORGES Attending Unavailable FRANTyFILIBERTO M Primary Care Unavailable Merna MCMILLAN, Reuben Pope Attending Unavailable Filiberto Ying MD Primary Care Provider [phone] Dano Pyle DO Attending Provider [phone] Babar Singh PA-C Emergency Provider [phone] Jonas Dano Admitting Unavailable Dano Pyle Attending Unavailable Filiberto Ying M Primary Care Unavailable Jonas, Dano Admitting Unavailable Jonas, Dano Attending Unavailable Stepan, Filiberto M Primary Care Unavailable Hoty, Filiberto M Primary Care Unavailable Babar Singh Admitting Unavailable Babar Singh Attending Unavailable Jonas, Dano Attending Unavailable Filiberto Ying M Primary Care Unavailable Dano Pyle Admitting Unavailable Filiberto Ying MD Primary Care Provider [phone] DANO PYLE Attending Unavailable VALERIO VELEZ Attending Unavailable Allergies Allergy Classification Reported Allergen(s) Allergy Type Date of Onset Reaction(s) Facility (20 sources) Caffeine; Translations: [Caffeine] Drug Allergy 06-13-19 13 Vomiting, GI intolerance, Unknown [facility] (20 sources) DHE; Translations: [Dhe] Allergy to substance 06-13-19 13 Shortness of Breath [facility] (20 sources) Adhesive agent; Translations: [ADHESIVE] Propensity to adverse reactions to drug 03-10-20 23 Other: See Comments, Yamilet [facility] (18 sources) Adhesive Tape Allergy to substance (finding) 10-24-19 [facility] (9 sources) prasterone; Translations: [DHEA CAPS] Drug Allergy -[facility] [address] DO Work Phone: (20 sources) Metoprolol; Translations: [METOPROLOL] Drug Allergy 05-01-20 Swelling [facility] (5 sources) Metoclopramide Drug Allergy 05-15-20 Worsens restless leg [facility] (2 sources) Dihydroergotamine Drug Allergy 01-16-20 Unknown [facility] (2 sources) Wound Dressing Adhesive Drug Intolerance 07-29-19 Unknown, Yamilet [facility] (1 source) Droperidol Drug Allergy 07-31-19 Other: See Comments [facility] Medications Current Medications Medication Drug Class(es) Dates Sig (Normalized) Sig (Original) acetaminophen 325 mg / HYDROcodone bitartrate 5 mg oral tablet (20 sources) Opioid Agonist Start: 06-19-2024 take 1 tablet by mouth every six hours as needed for pain Hydrocodone-Aceta minophen 5-325 mg tablet Active 1 TAB PO Q6H as needed for pain 12 June 19, 2024 Start: 03-21-2023 End: 06-10-2024 take 1 tablet by mouth once daily as needed for pain Hydrocodone-Acetaminophen 5-325 mg table t Discontinued 1 TAB PO Daily as needed for Pain May 01, 2023 12:00am June 10, 2024 12:04pm Start: 06-29-2022 HYDROcodone-ac etaminophen (NORCO) 5-325 mg per tablet as needed. 06/29/2022 Active Start: 10-22-2019 End: 12-24-2020 take 1 tablet by mouth every six hours as needed for pain Hydrocodone-Acetaminophen 5-325 mg table t Discontinued 1 TAB PO Q6H as needed for pain 10 August 16, 2020 December 24, 2020 11:15am Start: 10-14-2019 End: 12-24-2020 take 1 tablet by mouth every eight hours as needed for pain Hydrocodone-Acetaminophen (Lagrange) 5-325 mg tablet Discontinued 1 TAB PO Q8H as needed for pain 10 October 14, 2019 December 24, 2020 [...] needed. 10 in AM, 20 in PM benzoyl peroxide 50 mg/ml topical solution (2 sources) Start: 07-30-19 24 benzoyl peroxide 5 % external wash Indications: Other rosacea Apply to affected areas, then rinse daily, 30 day supply 227 g 11 07/30/2023 Active biotin 5 mg oral capsule (2 sources) biotin 5 MG caps ule Take by mouth. Active cetirizine hydrochloride 10 mg oral tablet (20 sources) Histamine-1 Receptor Antagonist Start: 10-14-19 End: 05-01-20 23 cetirizine (ZYRTEC) 10 mg tablet 10 mg once daily. 07/27/2022 Active Comment on above: 10 mg once daily. cyclobenzaprine hydrochloride 5 mg oral tablet (20 sources) Muscle Relaxant Start: 01-20-20 End: 06-10-19 25 take 1 tablet by mouth every twenty-four hours as needed cyclobenzaprine (FLEXERIL) 5 mg tablet Take 1 tablet by mouth at bedtime as needed. 30 tablet 1 09/17/2023 Active Start: 10-14-2019 End: 05-01-2023 take 1 tablet by mouth once daily as needed for muscle spasms Cyclobenzaprine 10 mg tablet Discontinued 10 MG PO Daily as needed for Muscle Spasm October 13, 2019 11:00pm May 01, 2023 11:55am Start: 10-14-2019 End: 05-01-2023 take 2 tablets by mouth once daily at bedtime Cyclobenzaprine 10 mg tablet Discontinued 20 MG PO Daily at bedtime October 13, 2019 11:00pm May 01, 2023 11:55am Start: 10-14-2019 End: 05-01-2023 take 20 mg by mouth once daily at bedtime Cyclobenzaprine Discontinued 20 MG PO Daily at bedtime October 14, 2019 12:00am May 01, 2023 12:55pm Comment on above: Take 1 tablet by klever th at bedtime as needed. diazePAM 5 mg oral tablet (20 sources) Benzodiazepine Start: 06-19-2024 take 1 tablet by mouth twice daily as needed for muscle spasms Diazepam (Valium) 5 mg tablet Active 5 MG PO Twice daily as needed for muscle spasm 10 5 June 19, 2024 12:00am Start: 06-13-2022 take 1 tablet by klever th every twelve hours as needed diazePAM (VALIUM) 10 mg tablet Take 10 mg by mouth twice daily as needed. 06/13/2022 Active Comment on above: Take 10 mg by mouth twice daily as needed. diclofenac sodium 50 mg delayed release oral tablet (14 sources) Nonsteroidal Anti-inflammatory Drug Start: take 1 tablet by mouth twice daily as needed diclofenac (Voltaren) 50 MG EC tablet Indications: Neck pain TAKE 1 TABLET BY MOUTH TWICE A DAY NEEDED FOR 10 DAYS 20 tablet 01/22/2024 Active Start: 06-29-2022 End: 09-21-2023 diclofenac (VOLTAREN) 1 % to pical gel as needed. 0 06/29/2022 09/21/2023 Discontinued Comment on above: as needed. ezetimibe 10 mg oral tablet (20 sources) Dietary Cholesterol Absorption Inhibitor Start: 07-27-2022 End: 09-21-2023 ezetimibe (Zetia) 10 MG tablet 05/08/2023 Active Comment on above: 10 mg once daily. ferrous sulfate 325 mg oral tablet (20 sources) Start: 07-13-2022 End: 09-21-2023 ferrous sulfate 325 (65 Fe) MG tablet Daily. 07/13/2022 Active take 1 tablet by mouth in the mo rning Ferrous Sulfate (IRON PO) Take 1 tablet by mouth in the morning. Active Comment on above: once daily. fludrocortisone acetate 0.1 mg oral tablet (3 sources) Start: 01-13-2023 fludrocortisone (Florinef) 0.1 MG tablet 01/13/2023 Active Start: 11-14-2022 take 1 tablet by klever th once daily Fludrocortisone Acetate 0.1 MG Oral Tablet Take 1 tablet daily Quantity: 90 Refills: 3 Ordered: 14-Nov-2022 Soraya Arcos MD Start : 14-Nov-2022 Active gabapentin 600 mg oral tablet (12 sources) Anti-epileptic Agent Start: 09-21-2023 End: 03-19-2024 take 1 tablet by mouth once daily at bedtime gabapentin (NEURONTIN) 600 mg tablet Indications: RLS (restless legs syndrome) Take 1 tablet by mouth daily at bedtime for 180 days. 30 tablet 5 09/21/2023 Active hydrocortisone 0.025 mg/mg topical ointment (2 sources) Corticosteroid Start: 02-06-2023 hydrocortisone 2.5 % ointment Indications: Allergic contact dermatitis, unspecified trigger Apply thin layer to affected areas twice a day as needed for flares 20 g 1 02/06/2023 Active lidocaine 0.05 mg/mg medicated patch (1 source) Antiarrhythmic, Amide Local Anesthetic Start: 06-19-2024 apply 1 dose topically every twenty-four hours Lidocaine 5 % adhesive patch,medicated Active 1 PATCH TOPICAL Q24H June 19, 2024 12:00am leave on most painful area for up to 12 hrs loratadine 10 mg disintegrating oral tablet (2 sources) Start: 01-13-2023 [facility] All[facility] Relief 10 MG disintegrating tablet 01/13/2023 Active magnesium oxide 400 mg oral tablet (3 sources) End: 07-28-2022 magnesium oxide (Mag-Ox) 400 MG tablet Take by mouth Daily. Active Comment on above: Take 400 mg by mouth once daily. meclofenamate 100 mg oral capsule (2 sources) Start: 04-11-2022 take 1 capsule by mouth once daily as needed meclofenamate (Meclomen) 100 MG capsule TAKE 1 CAPSULE BY MOUTH ONCE DAILY. MAY REPEAT in 4 TO 6 hours NEEDED. 04/11/2022 Active 24 hr metFORMIN hydrochloride 500 mg extended release oral tablet (6 sources) Biguanide Start: 07-27-2022 take 1 tablet by mouth every twenty-four hours in the morning metFORMIN XR (Glucophage-XR) 500 MG 24 hr tablet Take 500 mg by mouth in the morning. 07/27/2022 Active End: 01-12-2023 metFORMIN (GLUCOPHAGE) 500 m g tablet 500 mg once daily. 0 01/12/2023 Discontinued Comment on above: 500 mg once daily. 24 hr metoprolol succinate 25 mg extended release oral tablet (12 sources) beta-Adrenergic Jessie Start: 12-03-2022 take 1 tablet by mouth every twenty-four hours in the morning metoprolol succinate XL (Toprol-XL) 25 MG 24 hr tablet Take 1 tablet by mouth in the morning. 12/03/2022 Active Start: 12-03-2022 End: 09-21-2023 take 1 tablet by mouth every hour [...] oral capsule (20 sources) Tetracycline-class Drug Start: take 1 capsule by mouth once daily in the morning Minocycline 50 mg capsule Active 50 MG PO Every morning June 10, 2024 12:00am Start: 10-14-2019 End: 05-01-2023 take 1 capsule by mouth once daily Minocycline 50 mg capsule Discontinued 50 MG PO Daily October 13, 2019 11:00pm May 01, 2023 11:55am take 1 tablet by klever th once daily Minocycline HCl 100 mg tablet Take 100 mg by mouth once daily. Active Comment on above: Take 100 mg by mouth once daily. phenazopyridine hydrochloride 200 mg delayed release oral tablet (2 sources) Start: 2022 take 1 tablet by mouth three times daily after mealtime phenazopyridine (Pyridium) 200 MG tablet TAKE 1 TABLET BY MOUTH THREE TIMES A DAY AFTER MEALS FOR 3 DAYS 12/15/2022 Active phentermine hydrochloride 37.5 mg oral tablet (11 sources) Sympathomimetic Amine Anorectic Start: 2022 End: 2023 take 1 tablet by mouth in the morning phentermine (Adipex-P) 37.5 MG tablet Take 37.5 mg by mouth in the morning. 01/05/2023 Active Comment on above: Take 37.5 mg by mout h once daily. pramipexole dihydrochloride 1 mg oral tablet (20 sources) Nonergot Dopamine Agonist Start: 2022 take 2 tablets by mouth once daily at bedtime pramipexole (MIRAPEX) 1 mg tablet Take 2 mg by mouth daily at bedtime. 06/28/2022 Active Start: 06-28-2022 take 1 tablet by klever th in the morning pramipexole (Mirapex) 1 MG tablet Take 1 mg by mouth in the morning. 06/28/2022 Active Start: 10-14-2019 End: 05-01-2023 take 1 tablet by mouth once daily at bedtime Pramipexole (Mirapex) 0.5 mg tablet Discontinued 0.5 MG PO Daily at bedtime October 13, 2019 11:00pm May 01, 2023 11:53am Comment on above: Take 1 mg by mouth o nce daily. pregabalin 25 mg oral capsule (2 sources) Start: 03-06-20 take 1 capsule by mouth once daily at bedtime pregabalin (Lyrica) 25 MG capsule TAKE 1 CAPSULE BY MOUTH EVERY DAY AT BEDTIME 03/06/2022 Active rimegepant 75 mg disintegrating oral tablet (2 sources) Rimegepant Sulfa te (Nurtec) 75 MG tablet dispersible DISSOLVE ONE TABLET BY MOUTH AT ONSET OF MIGRAINE Oral for 30 Active simvastatin 40 mg oral tablet (20 sources) HMG-CoA Reductase Inhibitor End: 09-21-19 24 take 1 tablet by mouth at bedtime simvastatin (Zocor) 40 MG tablet Take 40 mg by mouth at bedtime. Active Comment on above: 40 mg once daily. sulfamethoxazole 800 mg / trimethoprim 160 mg oral tablet (2 sources) Dihydrofolate Reductase Inhibitor Antibacterial, Sulfonamide Antimicrobial Start: 12-16-19 23 take 1 tablet by mouth once in the morning, then take 1 tablet by mouth once at bedtime sulfamethoxazole-t rimethoprim (Bactrim DS) 800-160 MG per tablet Take 1 tablet by mouth in the morning and 1 tablet before bedtime. 12/15/2022 Active tiZANidine 4 mg oral tablet (6 sources) Central alpha-2 Adrenergic Agonist Start: 06-10-19 take 1 tablet by mouth once daily at bedtime Tizanidine 4 mg tablet Active 4 MG PO Daily at bedtime June 10, 2024 12:00am Start: 06-08-2024 tiZANidine (ZA NAFLEX) 4 mg tablet Take 8 mg by mouth daily at bedtime. 06/08/2024 Active traMADol hydrochloride 50 mg oral tablet (3 sources) Opioid Agonist Start: 06-17-2024 traMADol (ULTR AM) 50 mg tablet Take 50 mg by mouth. 06/17/2024 Active Start: 06-17-2024 take 1 tablet by klever th every four to six hours as needed for pain Tramadol 50 mg tablet Active 50 MG PO EVERY 4-6 HOURS as needed for pain 07 08June 17, 2024 12:00am trihexyphenidyl hydrochloride 2 mg oral tablet (2 sources) Start: 09-04-2022 take 1 tablet by mouth in the morning trihexyphenidyl (Artane) 2 MG tablet Take 2 mg by mouth in the morning and 2 mg before bedtime. 09/04/2022 Active 24 hr venlafaxine 37.5 mg extended release oral capsule (2 sources) Serotonin and Norepinephrine Reuptake Inhibitor Start: 05-01-2022 take 1 capsule by mouth once daily at mealtime venlafaxine XR (Effexor XR) 37.5 MG 24 hr capsule TAKE 1 CAPSULE BY MOUTH EVERY DAY WITH FOOD FOR 30 DAYS 05/01/2022 Active vitamin b6 100 mg oral tablet (2 sources) take 1 tablet by mouth in the morning pyridoxine (B-6) 100 MG tablet Take 100 mg by mouth in the morning. Active zolpidem tartrate 10 mg oral tablet (2 sources) gamma-Aminobutyric Acid-ergic Agonist Ambien 10 MG tablet 1 (one) time each day at the same time. Active Completed/Discontinued Medications Medication Drug Class(es) Dates Sig (Normalized) Sig (Original) acetaminophen 300 mg / codeine phosphate 30 mg oral tablet (5 sources) Opioid Agonist Start: 3 End: take 1 tablet by mouth every six hours as needed for pain Acetaminophen-Code ine 300-30 mg tablet Discontinued 1 TAB PO Q6H as needed for pain 07 10May 15, 2023 12:00am June 10, 2024 12:03pm onabotulinumtoxina 100 unt injection (8 sources) Acetylcholine Release Inhibitor Start: End: inject 1 dose by intramuscular injection every 30 days 200 Units, INTRAMUSCULAR, ONCE (UP TO 30 DAYS AMB), 1 dose, On Sun07/30/24 at 1700, This record documents the total dose provided to patient. See progress note for specific locations and amounts administered. REFRIGERATE - Pharmaceutical Waste: Lab Pack - Start: 07-30-2024 End: 07-30-2024 onabotulinum toxin type A 20 0 Units injection (BOTOX) Start: 01-30-2024 End: 01-30-2024 inject 1 dose by intramuscular injection every [...] type A 20 0 Units injection (BOTOX) Onabotulinumtoxi nA (BOTOX IJ) Botox Active sugar-free cholestyramine resin 4000 mg powder for oral suspension (10 sources) Bile Acid Sequestrant Start: 12-24-2020 End: [...] tablet by klever th three times daily. doxepin hydrochloride 10 mg oral capsule (10 sources) Tricyclic Antidepressant Start: 10-14-2019 End: 12-24-2020 take 2 capsules by mouth once daily at bedtime as needed for headache Doxepin 10 mg capsule Discontinued 20 MG PO Daily at bedtime as needed for HEADACHE October 13, 2019 11:00pm December 24, 2020 11:23am Start: 10-14-2019 End: 12-24-2020 take 20 mg by mouth once daily at bedtime Doxepin Discontinued 20 MG PO Daily at bedtime October 14, 2019 12:00am December 24, 2020 12:23pm L Norgest/E.Estradiol-E.Estrad (12 sources) Progestin, Estrogen, Progestin-containing Intrauterine Device Start: 10-14-2019 End: 05-01-2023 take 1 tablet by mouth once daily L Norgest/E.Estradiol-E.Estrad 0.15 mg-30 mcg (84)/10 mcg (7) tablets,dose pack,3 month Discontinued 1 TAB PO Daily October 13, 2019 11:00pm May 01, 2023 11:55am Start: 10-14-2019 End: 05-01-2023 take 1 tablet by mouth once daily L Norgest/E.Estradiol-E.Estrad Discontin ued 1 TAB PO Daily October 14, 2019 [...] TAB PO Daily October 14, 2019 12:00am take 1 tablet by klever th once daily L norgest/e.estradiol-e.estrad (Seasoniq ue) 0.15-0.03 &0.01 MG tablet tablet TAKE 1 TABLET BY MOUTH EVERY DAY Oral for 91 Active 1.5 ml fremanezumab-vfrm 150 mg/ml prefilled syringe (10 sources) Start: 10-14-2019 End: 05-01-2023 Fremanezumab-Vfrm 225 mg/1.5 mL syringe Discontinued 1.5 ML SUBCUT every month October 13, 2019 11:00pm May 01, 2023 11:54am hyoscyamine sulfate 0.125 mg sublingual tablet (10 sources) Start: 10-14-2019 End: 12-24-2020 take 1 tablet by mouth four times daily as needed for pain Hyoscyamine Sulfate 0.125 mg tablet, sublingual Discontinued 1 - 2 TAB PO Four times daily as needed for Abdominal Pain October 13, 2019 11:00pm December 24, 2020 11:24am Magnesium (4 sources) End: 01-12-2023 Magnesium 250 mg tab 250 mg once daily. 0 01/12/2023 Discontinued Magnesium 250 mg tab 250 mg once daily. 0 Active Comment on above: 250 mg once daily. Magnesium Sulfate (1 source) Start: 2012 End: 2022 inject 2 g intravenously every hour MAGNESIUM [...] NS 250 ML IV OVER 1 HOUR ondansetron 4 mg disintegrating oral tablet (20 sources) Serotonin-3 Receptor Antagonist Start: 2022 End: 2024 take 1 tablet by mouth every six hours as needed for nausea and vomiting Ondansetron 4 mg tablet,disintegrati ng Discontinued 4 MG PO Q6H as needed for nausea and vomiting May 15, 2023 12:00am June 10, 2024 12:04pm Start: 10-31-2022 take 1 tablet by klever th four times daily as needed ondansetron ODT (Zofran-ODT) 4 MG disintegrating tablet DISSOLVE 1 TABLET IN MOUTH 4 TIMES A DAY NEEDED 10/31/2022 Active Start: 12-24-2020 End: 06-10-2024 take 1 tablet by mouth every six hours as needed for nausea and vomiting Ondansetron Hcl (Zofran) 4 mg tablet Discontinued 4 MG PO Q6H as needed for nausea and vomiting 60 December 23, 2020 11:00pm June 10, 2024 12:04pm Start: 10-14-2019 End: 05-01-2023 take 1 tablet by mouth three times daily as needed for nausea and vomiting Ondansetron 4 mg tablet,disintegrating Discontinued 4 MG PO Three times daily as needed for nausea and vomiting 7 2 October 13, 2019 11:00pm May [...] IV OVER 30 MIN. May repeat x1 pantoprazole 40 mg delayed release oral tablet (12 sources) Proton Pump Inhibitor Start: 10-14-19 End: 05-01-20 23 take 1 tablet by mouth once daily Pantoprazole 40 mg tablet,delayed release (DR/EC) Discontinued 40 MG PO Daily October 13, 2019 11:00pm May 01, 2023 11:55am Rfwywxef-Cj-Ved-Fe-FA (P-D CARTER PLUS) Tab (2 sources) End: 08-02-19 23 take 1 tablet by mouth once daily Hujcatvg-Mi-Dpr-Fe-F A (P-D CARTER PLUS) Tab Take 1 tablet by mouth once daily. 0 08/01/2022 Discontinued (Course of therapy completed) take 1 tablet by mouth once ute y Dzebmhbd-Aw-Vzi-Fe-FA (P-D PLUS) Tab Take 1 tablet by mouth once daily. 0 Active Comment on above: Take 1 tablet by klever once daily. promethazine hydrochloride 25 mg oral tablet (20 sources) Phenothiazine Start: 09-28-19 End: 12-25-19 take 1 tablet by mouth every six hours as needed for nausea and vomiting Promethazine 25 mg tablet Discontinued 25 MG PO Q6H as needed for nausea and vomiting September 26, 2020 11:00pm December 24, 2020 11:24am Start: 09-27-2020 End: 12-24-2020 take 1 tablet by mouth four times daily as needed for nausea and vomiting Promethazine 25 mg tablet Discontinued 25 MG PO Four times daily as needed for nausea and vomiting September 26, 2020 11:00pm December 24, 2020 11:15am propranolol hydrochloride 10 mg oral tablet (15 sources) beta-Adrenergic Jessie Start: 10-14-2019 End: 05-01-2023 take 2 tablets by mouth twice daily Propranolol 10 mg tablet Discontinued 20 MG PO Twice daily October 13, 2019 11:00pm May 01, 2023 11:55am Start: 10-14-2019 End: 05-01-2023 take 20 mg by mouth twice daily Propranolol Discontinu ed 20 MG PO Twice daily October 14, 2019 12:00am May 01, 2023 12:55pm Start: 06-25-2012 End: 07-28-2022 take 1 tablet by mouth three times daily propranolol 10 mg tablet Take 1 tablet by mouth three times daily. 90 tablet 11 06/25/2012 07/28/2022 Discontinued (Course of therapy completed) propranolol (Ind eral) 40 MG tablet 1 (one) time each day at the same time. Active Comment on above: Take 1 tablet by klever th three times daily. 1000 ml sodium chloride 9 mg/ml injection (1 source) Start: 06-13-19 13 End: 07-29-19 23 0.9 % SODIUM CHLORIDE (NACL) 0.9% solution Indications: Headache(784.0) Inject 500 mL intravenously as directed. INFUSE 500 CC IV NS IV OVER 30 MIN 500 mL 0 06/13/2012 07/28/2022 Discontinued (Course of therapy completed) Comment on above: Inject 500 mL intrav enously as directed. INFUSE 500 CC IV NS IV OVER 30 MIN topiramate (12 sources) Start: 10-14-19 End: 05-01-20 take 1 capsule by mouth once daily Topiramate 100 mg capsule,extended release 24hr Discontinued 300 MG PO Daily October 13, 2019 11:00pm May 01, 2023 11:56am Start: 10-14-2019 take 300 mg by mouth once daily Topiramate Active 300 MG PO Daily October 13, 2019 11:00pm Start: 10-14-2019 End: 05-01-2023 take 300 mg by mouth once daily Topiramate Discontinued 300 MG PO Daily October 14, 2019 12:00am May 01, 2023 12:56pm Topiramate ER (T rokendi XR) 200 MG capsule sustained-release 24 hr 1 capsule. Active Problems Active Problems Problem Classification Problem Date Documented Date Episodic/Chronic Abdominal pain (10 sources) Abdominal pain; Translations: [Unspecified abdominal pain] 09-27-2020 Episodic Administrative/social admission (4 sources) Patient encounter status; Translations: [Other reasons for seeking consultation] Episodic Biliary tract disease (10 sources) Biliary calculus; Translations: [Calculus of gallbladder without cholecystitis without obstruction] 10-14-2019 Episodic Cardiac dysrhythmias (2 sources) Tachycardia, unspecified; Translations: [Sinus tachycardia] Onset: 12-28-2022 Episodic Disorders of lipid metabolism (9 sources) Hyperlipidemia; Translations: [Other and unspecified hyperlipidemia] Chronic Headache; including migraine (9 sources) Migraine, unspecified, not intractable, without status migrainosus; Translations: [Refractory migraine without aura] Onset: 04-10-2022 09-21-2023 Chronic Headache; including migraine (1 source) Headache; including migraine; Translations: [HEADACHE UNSPECIFIED] Onset: 07-10-2022 Nonmalignant breast conditions (20 sources) Breast lump; Translations: [Unspecified lump in the left breast, unspecified quadrant] Onset: 04-18-2023 04-05-2023 Episodic Other and unspecified benign neoplasm (4 sources) Fibroadenoma of right breast; Translations: [Benign neoplasm of right breast] Onset: 06-23-2024 06-23-2024 Episodic Other circulatory disease (10 sources) Elevated blood-pressure reading without diagnosis of hypertension; Translations: [Elevated blood-pressure reading, without diagnosis of hypertension] 09-27-2020 Episodic Other connective tissue disease (10 sources) Spasm of cervical paraspinous muscle; Translations: [...] Other hereditary and degenerative nervous system conditions (5 sources) Isolated cervical dystonia; Translations: [Spasmodic torticollis] Onset: 08-23-2023 01-12-2023 Chronic Other hereditary and degenerative nervous system conditions (4 sources) Restless legs; Translations: [Restless legs syndrome] Onset: 08-23-2023 01-12-2023 Chronic Other lower respiratory disease (9 sources) Difficulty breathing; Translations: [Other respiratory abnormalities] Episodic Other nervous system disorders (5 sources) Other specified mononeuropathies; Translations: [OTHER SPECIFIED MONONEUROPATHIES] Onset: 02-16-2022 Chronic Other nervous system disorders (2 sources) Disorder of brain; Translations: [Disorder of brain, unspecified] Onset: 08-23-2023 08-23-2023 Chronic Other nutritional; endocrine; and metabolic disorders (10 sources) Obesity; Translations: [Obesity, unspecified] Onset: 08-23-2023 08-23-2023 Chronic Other nutritional; endocrine; and metabolic disorders (1 source) Overweight in adulthood with body mass index of 25 or more but less than 30; Translations: [Overweight] Episodic Residual codes; unclassified (2 sources) Obstructive sleep apnea syndrome; Translations: [Obstructive sleep apnea (adult) (pediatric)] Onset: 08-23-2023 08-23-2023 Chronic Spondylosis; intervertebral disc disorders; other back problems (17 sources) Chronic neck pain; Translations: [Cervicalgia] Onset: 02-20-2022 Episodic Syncope (19 sources) Syncope; Translations: [Syncope and collapse] Onset: 12-28-2022 Episodic Past or Other Problems Problem Classification Problem Date Documented Date Episodic/Chronic Coma; stupor; and brain damage (2 sources) Daytime somnolence; Translations: [Somnolence] Onset: 08-23-2023 08-23-2023 Episodic Deficiency and other anemia (2 sources) Iron deficiency anemia; Translations: [Iron deficiency anemia, unspecified] Onset: 08-23-2023 08-23-2023 Episodic Headache; including migraine (16 sources) Headache; Translations: [Headache] Onset: 04-06-2022 09-27-2020 Episodic Immunizations and screening for infectious disease (1 source) Encounter for screening for human papillomavirus (HPV); Translations: [ENC SCREENING HUMAN PAPILLOMAVIRUS] Onset: 01-10-2022 Episodic Other connective tissue disease (1 source) Other muscle spasm; Translations: [OTHER MUSCLE SPASM] Onset: 04-10-2022 Episodic Other connective tissue disease (2 sources) Muscle pain; Translations: [Myalgia, unspecified site] Onset: 08-23-2023 08-23-2023 Episodic Other nervous system disorders (2 sources) Spasmodic movement; Translations: [Fasciculation] Onset: 08-23-2023 08-23-2023 Episodic Other screening for suspected conditions (not mental disorders or infectious disease) (4 sources) Encounter for screening for malignant neoplasm of cervix; Translations: [ENC SCREENING MALIG NEOPLASM CERV] Onset: 01-09-2022 Episodic Residual codes; unclassified (2 sources) Insomnia; Translations: [Insomnia, unspecified] Onset: 08-23-2023 08-23-2023 Episodic Residual codes; unclassified (2 sources) Diffuse pain; Translations: [Pain, unspecified] Onset: 08-23-2023 08-23-2023 Episodic Unclassified (9 sources) Never smoked tobacco; Translations: [Never a smoker] Results Test Name Value Interpretation Reference Range Facility Alanine aminotransferase [En zymatic activity/volume] in Serum or PlasmaOrdered By: Babar Singh on 06-19-2024 ALT [Catalytic activity/Vol] Alanine aminotransferase [Enzymatic activity/volume] in Serum or Plasma High 7-52 [facility] Albumin [Mass/volume] in Ser um or Plasma by Bromocresol green (BCG) dye binding methoOrdered By: Babar Singh on 06-19-2024 Albumin BCG dye [Mass/Vol] Albumin [Mass/volume] in Serum or Plasma by Bromocresol green (BCG) dye binding metho 3.5-5.7 [facility] Alkaline phosphatase [Enzyma tic activity/volume] in Serum or PlasmaOrdered By: Babar Singh on 06-19-2024 ALP [Catalytic activity/Vol] Alkaline phosphatase [Enzymatic activity/volume] in Serum or Plasma 34-104 [facility] Appearance of UrineOrdered B y: PROVIDER TEMP on 06-19-2024 Appearance (U) Urine appearance Abnormal Clear [facility] Aspartate aminotransferase [ Enzymatic activity/volume] in Serum or PlasmaOrdered By: Babar Singh on 06-19-2024 AST [Catalytic activity/Vol] Aspartate aminotransferase [Enzymatic activity/volume] in Serum or Plasma High 13-39 [facility] Bacteria [Presence] in Urine by AutomatedOrdered By: PROVIDER TEMP on 06-19-2024 Bacteria Auto Ql (U) Bacteria [Presence] in Urine by Automated None Seen [facility] Basophils Auto (Bld) [#/Vol] Ordered By: Babar Singh on 06-19-2024 Basophils (Bld) [#/Vol] Automated basophil count 0.0-0.2 [facility] Basophils/100 WBC Auto (Bld) Ordered By: Babar Singh on 06-19-2024 Basophils/100 WBC (Bld) Automated basophil % . [facility] Bilirubin Test strip Ql (U)O rdered By: PROVIDER SAMANTHA on 06-19-2024 Bilirubin Ql (U) Bilirubin.total [Pre sence] in Urine by Test strip Negative [facility] Bilirubin.total [Mass/volume ] in Serum or PlasmaOrdered By: Babar Singh on 06-19-2024 Bilirubin [Mass/Vol] Bilirubin.total [Mass/volume] in Serum or Plasma 0.3-1.0 [facility] Calcium [Mass/volume] in Ser um or PlasmaOrdered By: Babar Singh on 06-19-2024 Calcium [Mass/Vol] Calcium [Mass/volume ] in Serum or Plasma 8.6-10.3 [facility] Carbon dioxide, total [Moles /volume] in Serum or PlasmaOrdered By: Babar Singh on 06-19-2024 CO2 [Moles/Vol] Carbon dioxide, tota l [Moles/volume] in Serum or Plasma 21.0-31.0 [facility] Chloride [Moles/volume] in S leticia or PlasmaOrdered By: Babar Singh on 06-19-2024 Chloride [Moles/Vol] Chloride [Moles/vol ume] in Serum or Plasma 98-107 [facility] Color Auto (U)Ordered By: IGLESIA SINGH on 06-19-2024 Color (U) Color of Urine by Auto Yellow Fi [facility] Complete Blood Count Auto Di ffon 06-19-2024 Basophils (Bld) [#/Vol] 0.0 10*3/uL Normal 0.0-0.2 [facility] Comment on above: Result Comment: PERF ORMED BY: [place] [address] PATHOLOGIST ELEMENT BURNER RAFIA LOPEZ M.D. Performed By: #### C MP, CK, HS TROP, CBC #### [address] Basophils/100 WBC (Bld) 0.3 % Normal . [facility] Comment on above: Performed By: #### C MP, CK, HS TROP, CBC #### [address] Eosinophils (Bld) [#/Vol] 0.1 10*3/uL Normal 0.0-0.45 [facility] Comment on above: Performed By: #### C MP, CK, HS TROP, CBC #### [address] Eosinophils/100 WBC (Bld) 1.4 % Normal . [facility] Comment on above: Performed By: #### C MP, CK, HS TROP, CBC #### [address] Erythrocyte distribution width (RBC) [Ratio] 13.7 % Normal 11.9-15.3 [facility] Comment on above: Performed By: #### C MP, CK, HS TROP, CBC #### [address] Hematocrit (Bld) [Volume fraction] 41.7 % Normal 34.0-46.4 [facility] Comment on above: Performed By: #### C MP, CK, HS TROP, CBC #### [address] Hemoglobin (Bld) [Mass/Vol] 14.0 g/dL Normal 11.8-15.4 [facility] Comment on above: Performed By: #### C MP, CK, HS TROP, CBC #### [address] Lymphocytes (Bld) [#/Vol] 1.4 10*3/uL Normal 1.00-4.8 [facility] Comment on above: Performed By: #### C MP, CK, HS TROP, CBC #### [address] Lymphocytes/100 WBC (Bld) 15.4 % Normal . [facility] Comment on above: Performed By: #### C MP, CK, HS TROP, CBC #### [address] MCH (RBC) [Entitic mass] 29.2 pg Normal 24.7-34.3 [facility] Comment on above: Performed By: #### C MP, CK, HS TROP, CBC #### [address] MCV (RBC) [Entitic vol] 87.0 fL Normal 80-100 [facility] Comment on above: Performed By: #### C MP, CK, HS TROP, CBC #### [address] Mean Corpuscular HGB Conc 33.6 g/dL Normal 32.0-35.0 [facility] Comment on above: Performed By: #### C MP, CK, HS TROP, CBC #### [address] Monocytes (Bld) [#/Vol] 0.4 10*3/uL Normal 0.0-0.8 [facility] Comment on above: Performed By: #### C MP, CK, HS TROP, CBC #### [address] Monocytes/100 WBC (Bld) 19.28 % Normal 0.00-20.00 [facility] Comment on above: Performed By: #### C MP, CK, HS TROP, CBC #### [address] Monocytes/100 WBC (Bld) 4.5 % Normal . [facility] Comment on above: Performed By: #### C MP, CK, HS TROP, CBC #### [address] Neutrophils (Bld) [#/Vol] 7.3 10*3/uL Normal 1.8-7.7 [facility] Comment on above: Performed By: #### C MP, CK, HS TROP, CBC #### [address] Neutrophils/100 WBC (Bld) 78.4 % Normal . [facility] Comment on above: Performed By: #### C MP, CK, HS TROP, CBC #### [address] NRBC% 0.1 /100{WBC} Normal 0-0.5 [facility] Comment on above: Performed By: #### C MP, CK, HS TROP, CBC #### [address] Platelet mean volume (Bld) [Entitic vol] 7.9 fL Normal 6.3-10.7 [facility] Comment on above: Performed By: #### C MP, CK, HS TROP, CBC #### [place] [address] [place] Platelets (Bld) [#/Vol] 251 10*3/uL Normal 150-450 [facility] Comment on above: Performed By: #### C MP, CK, HS TROP, CBC #### [place] [address] [place] RBC (Bld) [#/Vol] 4.79 10*6/uL Normal 3.60-5.00 [facility] Comment on above: Performed By: #### C MP, CK, HS TROP, CBC #### [address] WBC (Bld) [#/Vol] 9.3 10*3/uL Normal 3.8-11.6 [facility] Comment on above: Performed By: #### C MP, CK, HS TROP, CBC #### [address] Comprehensive Metabolic Pane pedro 06-19-2024 Albumin [Mass/Vol] 4.4 g/dL Normal 3.5-5.7 [facility] Comment on above: Performed By: #### C MP, CK, HS TROP, CBC #### [address] Albumin/Globulin [Mass ratio] 1.5 {ratio} Normal [facility] Comment on above: Performed By: #### C MP, CK, HS TROP, CBC #### [address] ALP [Catalytic activity/Vol] 87 U/L Normal 34-104 [facility] Comment on above: Performed By: #### C MP, CK, HS TROP, CBC #### [address] ALT [Catalytic activity/Vol] 135 U/L High 7-52 [facility] Comment on above: Performed By: #### C MP, CK, HS TROP, CBC #### [address] Anion gap [Moles/Vol] 12.0 mmol/L Normal 6.0-15.0 [facility] Comment on above: Performed By: #### C MP, CK, HS TROP, CBC #### [address] AST [Catalytic activity/Vol] 80 U/L High 13-39 [facility] Comment on above: Performed By: #### C MP, CK, HS TROP, CBC #### [address] Bilirubin [Mass/Vol] 0.7 mg/dL Normal 0.3-1.0 [facility] Comment on above: Performed By: #### C MP, CK, HS TROP, CBC #### [address] Calcium [Mass/Vol] 9.2 mg/dL Normal 8.6-10.3 [facility] Comment on above: Performed By: #### C MP, CK, HS TROP, CBC #### [address] Chloride [Moles/Vol] 104 mmol/L Normal 98-107 [facility] Comment on above: Performed By: #### C MP, CK, HS TROP, CBC #### [address] CO2 [Moles/Vol] 24.9 mmol/L Normal 21.0-31.0 [facility] Comment on above: Performed By: #### C MP, CK, HS TROP, CBC #### [address] Creatinine [Mass/Vol] 0.87 mg/dL Normal 0.60-1.20 [facility] Comment on above: Performed By: #### C MP, CK, HS TROP, CBC #### [address] Creatinine Clr Calc Pharmacy 83.38 Normal [facility] Comment on above: Result Comment: PERF ORMED BY: [place] [address] PATHOLOGIST ELEMENT BURNER RAFIA LOPEZ M.D. Performed By: #### C MP, CK, HS TROP, CBC #### [address] GFR/1.73 sq M.predicted MDRD (S/P/Bld) [Vol rate/Area] mL/min/{1.73_m2} Normal [facility] Comment on above: Performed By: #### C MP, CK, HS TROP, CBC #### [address] Globulin (S) [Mass/Vol] 3.0 g/dL Normal [facility] Comment on above: Performed By: #### C MP, CK, HS TROP, CBC #### [address] Glucose [Mass/Vol] 90 mg/dL Normal 70-100 [facility] Comment on above: Result Comment: [place] Glucose Reference Range is dependent on time and content of last meal. Glucose of more than 200 mg/dL in a nonstressed, ambulatory subject supports the diagnosis of Diabetes Mellitus. ADA recommended reference range Performed By: #### C MP, CK, HS TROP, CBC #### [address] Potassium [Moles/Vol] 3.9 mmol/L Normal 3.5-5.1 [facility] Comment on above: Performed By: #### C MP, CK, HS TROP, CBC #### [address] Protein [Mass/Vol] 7.4 g/dL Normal 6.4-8.9 [facility] Comment on above: Performed By: #### C MP, CK, HS TROP, CBC #### [address] Sodium [Moles/Vol] 137 mmol/L Normal 136-145 [facility] Comment on above: Performed By: #### C MP, CK, HS TROP, CBC #### [address] Urea nitrogen [Mass/Vol] 14 mg/dL Normal 7-25 [facility] Comment on above: Performed By: #### C MP, CK, HS TROP, CBC #### [place] [address] [place] Creatine Kinaseon 06-19-2024 CK [Catalytic activity/Vol] 51 U/L Normal 30-223 [facility] Comment on above: Performed By: #### C MP, CK, HS TROP, CBC #### [place] [address] [place] Creatine kinase [Enzymatic a ctivity/volume] in Serum or PlasmaOrdered By: Babar Singh on 06-19-2024 CK [Catalytic activity/Vol] Creatine kinase [Enzymatic activity/volume] in Serum or Plasma [facility] Creatinine [Mass/volume] in Serum or PlasmaOrdered By: Babar Singh on 06-19-2024 Creatinine [Mass/Vol] Creatinine [Mass/v olume] in Serum or Plasma 0.60-1.20 [facility] Dipstick and Microscopicon 0 06-19-2024 Appearance (U) Cloudy Critically abnormal Clear [facility] Comment on above: Order Comment: Name Collection Type:: Clean-Voided Midstream Performed By: #### A DDONUAPLUS #### [facility] [address] [place] [address] [place] Bacteria,Urine Rare Normal None Seen [facility] Comment on above: Order Comment: Name Collection Type:: Clean-Voided Midstream Performed By: #### A DDONUAPLUS #### [place] [address] [place] Bilirubin,Urine Negative Normal Negative [facility] Comment on above: Order Comment: Name Collection Type:: Clean-Voided Midstream Performed By: #### A DDONUAPLUS #### [place] [address] [place] Color (U) Yellow Normal Yellow [facility] Comment on above: Order Comment: Name Collection Type:: Clean-Voided Midstream Performed By: #### A DDONUAPLUS #### [place] [id number] [place] Glucose Ql (U) Normal Normal Normal [facility] Comment on above: Order Comment: Name Collection Type:: Clean-Voided Midstream Performed By: #### A DDONUAPLUS #### [facility] [address] [place] [id number] [place] Hyaline Casts,Urine None Normal 0-8 [facility] Comment on above: Order Comment: Name Collection Type:: Clean-Voided Midstream Performed By: #### A DDONUAPLUS #### [facility] [address] [place] [id number] [place] Ketones Ql (U) 1+ High Negative [facility] Comment on above: Order Comment: Name Collection Type:: Clean-Voided Midstream Performed By: #### A DDONUAPLUS #### [address] Leukocyte esterase Test strip Ql (U) 3+ High Negative [facility] Comment on above: Order Comment: Name Collection Type:: Clean-Voided Midstream Performed By: #### A DDONUAPLUS #### [address] Mucus,Urine 2+ Critically abnormal [facility] Comment on above: Order Comment: Name Collection Type:: Clean-Voided Midstream Result Comment: PERF ORMED BY: [place] [address] PATHOLOGIST ELEMENT BURNER RAFIA LOPEZ M.D. Performed By: #### A DDONUAPLUS #### [address] Nitrite,Urine Negative Normal Negative [facility] Comment on above: Order Comment: Name Collection Type:: Clean-Voided Midstream Performed By: #### A DDONUAPLUS #### [address] Occult Blood,Urine Negative Normal Negative [facility] Comment on above: Order Comment: Name Collection Type:: Clean-Voided Midstream Result Comment: PERF ORMED BY: [place] [address] PATHOLOGIST ELEMENT BURNER RAFIA LOPEZ M.D. Performed By: #### A DDONUAPLUS #### [place] [address] [place] pH (U) 5.5 [pH] Normal 5.0-9.0 [facility] Comment on above: Order Comment: Name Collection Type:: Clean-Voided Midstream Performed By: #### A DDONUAPLUS #### [place] [address] [place] Protein,Urine Trace High Negative [facility] Comment on above: Order Comment: Name Collection Type:: Clean-Voided Midstream Performed By: #### A DDONUAPLUS #### [address] RBC,Urine 5 [HPF] High 0-4 [facility] Comment on above: Order Comment: Name Collection Type:: Clean-Voided Midstream Performed By: #### A DDONUAPLUS #### [address] Specificy [place],Urine 1.023 Normal 1.001-1.03 0 [facility] Comment on above: Order Comment: Name Collection Type:: Clean-Voided Midstream Performed By: #### A DDONUAPLUS #### [address] Squamous Epithelial Cell,Urine 10 [HPF] High 0-2 [facility] Comment on above: Order Comment: Name Collection Type:: Clean-Voided Midstream Performed By: #### A DDONUAPLUS #### [address] Urobilinogen,Urine Normal Normal Normal [facility] Comment on above: Order Comment: Name Collection Type:: Clean-Voided Midstream Performed By: #### A DDONUAPLUS #### [place] [address] [place] WBC,Urine 3 [HPF] Normal 0-4 [facility] Comment on above: Order Comment: Name Collection Type:: Clean-Voided Midstream Performed By: #### A DDONUAPLUS #### [address] ECG 12 lead ECGon 06-19-2024 ECG 12 lead ECG [facility] [address] Electrocardiograph Report Signed Patient: Brittanie Garcia MR#: [id number] : 1985 Acct:[id number] Age/Sex: 39 / F ADM Date: 06/19/24 Loc: ER Room: Type: [facility] ER Attending Dr: Ordering Provider: Babar Singh PA-C Date of Service: 06/19/24 ECG/ECG 12 lead ECG: Syncope Copies to: Test Reason : Blood Pressure : 106/62 mmHG Vent. Rate : 78 BPM Atrial Rate : 78 BPM P-R Int : 138 ms QRS Dur : 86 ms QT Int : 372 ms P-R-T Axes : 58 84 75 degrees QTcB Int : 424 ms Normal sinus rhythm Normal ECG When compared with ECG of 27-Sep-2020 16:52, No significant change was found Confirmed by LIAM RANDLE DO ([id number]) on 06/19/2024 7:59:22 PM Referred By: Electronically Signed By: LIAM RANDLE DO Transcribed By: MUS Signed By Liam Randle DO 06/19 Normal [facility] Eosinophils Auto (Bld) [#/Vo l]Ordered By: Babar Singh on 06-19-2024 Eosinophils (Bld) [#/Vol] Automated eosinophil count 0.0-0.45 [facility] Eosinophils/100 WBC Auto (Bl d)Ordered By: Babar Singh on 06-19-2024 Eosinophils/100 WBC (Bld) Automated eosinophil % . [facility] Epithelial cells.squamous [# /area] in Urine sediment by Automated countOrdered By: PROVIDER SAMANTHA on 06-19-2024 Epithelial cells.squamous Auto (Urine sed) [#/Area] Epithelial cells.squamous [#/area] in Urine sediment by Automated count High 0-2 [facility] Erythrocyte distribution wid th Auto (RBC) [Ratio]Ordered By: Babar Singh on 06-19-2024 Erythrocyte distribution width (RBC) [Ratio] Erythrocyte distribution width [Ratio] by Automated count 11.9-15.3 [facility] Erythrocytes [#/area] in Uri ne sediment by Automated countOrdered By: PROVIDER SAMANTHA on 06-19-2024 RBC Auto (Urine sed) [#/Area] Erythrocytes [#/area] in Urine sediment by Automated count High 0-4 [facility] Globulin Calc (S) [Mass/Vol] Ordered By: Babar Singh on 06-19-2024 Globulin (S) [Mass/Vol] Serum globulin measurement by calculation (mass/volume) [facility] Glucose Glucometer (BldC) [M ass/Vol]Ordered By: NOLVIA SINGH on 06-19-2024 Glucose [Mass/Vol] Capillary blood gluc ose measurement by glucometer (mass/volume) [facility] Comment on above: Random Glucose Refer ence Range is dependent on time and content of last meal. Glucose of more than 200 mg/dL in a nonstressed, ambulatory subject supports the diagnosis of Diabetes Mellitus. Glucose Poct Glucometerson 0 06-19-2024 Commemt1 Normal [facility] Comment on above: Result Comment: Glu2 : WILL NOTIFY DR/RN Performed By: #### G LULS #### Point of Care testing , Commemt2 Cleaned Meter Normal [facility] Comment on above: Result Comment: PERF ORMED BY: [facility] [address] [place] [address] PATHOLOGIST ELEMENT BURNER RAFIA LOPEZ M.D. Performed By: #### G LULS #### Point of Care testing , Glucose [Mass/Vol] 120 mg/dL Normal [facility] Comment on above: Result Comment: [place] om Glucose Reference Range is dependent on time and content of last meal. Glucose of more than 200 mg/dL in a nonstressed, ambulatory subject supports the diagnosis of Diabetes Mellitus. Performed By: #### G LULS #### Point of Care testing , Glucose [Mass/volume] in Ser um or PlasmaOrdered By: Babar Singh on 06-19-2024 Glucose [Mass/Vol] Glucose [Mass/volume ] in Serum or Plasma 70-100 [facility] Comment on above: ADA recommended refe rence rangeRandom Glucose Reference Range is dependent on time and content of last meal. Glucose of more than 200 mg/dL in a nonstressed, ambulatory subject supports the diagnosis of Diabetes Mellitus. Glucose [Mass/volume] in Uri ne by Test stripOrdered By: NOLVIA SINGH on 06-19-2024 Glucose Test strip (U) [Mass/Vol] Glucose [Mass/volume] in Urine by Test strip Normal [facility] Hematocrit Auto (Bld) [Volum e fraction]Ordered By: Babar Singh on 06-19-2024 Hematocrit (Bld) [Volume fraction] Hematocrit [Volume Fraction] of Blood by Automated count 34.0-46.4 [facility] Hemoglobin Test strip Ql (U) Ordered By: PROVIDER TEM on 06-19-2024 Hemoglobin Ql (U) Hemoglobin [Presence ] in Urine by Test strip Negative [facility] Hemoglobin [Mass/volume] in BloodOrdered By: Babar Singh on 06-19-2024 Hemoglobin (Bld) [Mass/Vol] Hemoglobin [Mass/volume] in Blood 11.8-15.4 [facility] Hyaline casts [#/area] in Ur ine sediment by Automated countOrdered By: PROVIDER TEM on 06-19-2024 Hyaline casts Auto (Urine sed) [#/Area] Hyaline casts [#/area] in Urine sediment by Automated count 0-8 [facility] Ketones Test strip Ql (U)Ord ered By: PROVIDER TEM on 06-19-2024 Ketones Ql (U) Ketones [Presence] i n Urine by Test strip High Negative [facility] Leukocyte esterase [Presence ] in Urine by Test stripOrdered By: PROVIDER TEM on 06-19-2024 Leukocyte esterase Test strip Ql (U) Leukocyte esterase [Presence] in Urine by Test strip High Negative [facility] Leukocytes [#/area] in Urine sediment by Automated countOrdered By: [facility] on 06-19-[facility]24 WBC Auto (Urine sed) [#/Area] Leukocytes [#/area] in Urine sediment by Automated count 0-4 [facility] Leukocytes [#/volume] correc harman for nucleated erythrocytes in Blood by Automated counOrdered By: Babar Singh on 06-19-2024 WBC corrected for nucl RBC Auto (Bld) [#/Vol] Leukocytes [#/volume] corrected for nucleated erythrocytes in Blood by Automated coun 3.8-11.6 [facility] Lymphocytes Auto (Bld) [#/Vo l]Ordered By: Babar Singh on 06-19-2024 Lymphocytes (Bld) [#/Vol] Lymphocytes [#/volume] in Blood by Automated count 1.00-4.8 [facility] Lymphocytes/100 WBC Auto (Bl d)Ordered By: Babar Singh on 06-19-2024 Lymphocytes/100 WBC (Bld) Lymphocytes/100 leukocytes in Blood by Automated count . [facility] MCH Auto (RBC) [Entitic mass ]Ordered By: Babar Singh on 06-19-2024 MCH (RBC) [Entitic mass] MCH [Entitic mass] by Automated count 24.7-34.3 [facility] MCHC Auto (RBC) [Mass/Vol]Or dered By: Babar Singh on 06-19-2024 MCHC (RBC) [Mass/Vol] MCHC [Mass/volume] by Automated count 32.0-35.0 [facility] MCV Auto (RBC) [Entitic vol] Ordered By: Babar Singh on 06-19-2024 MCV (RBC) [Entitic vol] MCV [Entitic volume] by Automated count 80-100 [facility] Monocyte distribution width [Entitic volume] in Blood by AutomatedOrdered By: Babar Singh on 06-19-2024 Monocyte distribution width Auto (Bld) [Entitic vol] Monocyte distribution width [Entitic volume] in Blood by Automated 0.00-20.00 [facility] Monocytes Auto (Bld) [#/Vol] Ordered By: Babar Singh on 06-19-2024 Monocytes (Bld) [#/Vol] Automated blood monocyte count 0.0-0.8 [facility] Monocytes/100 WBC Auto (Bld) Ordered By: Babar Singh on 06-19-2024 Monocytes/100 WBC (Bld) Automated monocyte % . [facility] Mucus [Presence] in Urine by AutomatedOrdered By: PROVIDER TEMGeorges on 06-19-2024 Mucus Auto Ql (U) Mucus [Presence] in Urine by Automated Abnormal [facility] Neutrophils Auto (Bld) [#/Vo l]Ordered By: Babar Singh on 06-19-2024 Neutrophils (Bld) [#/Vol] Neutrophils [#/volume] in Blood by Automated count 1.8-7.7 [facility] Neutrophils/100 WBC Auto (Bl d)Ordered By: Babar Singh on 06-19-2024 Neutrophils/100 WBC (Bld) Automated neutrophil % . [facility] Nitrite Test strip Ql (U)Ord ered By: PROVIDER TEMP on 06-19-2024 Nitrite Ql (U) Nitrite [Presence] i n Urine by Test strip Negative [facility] No Panel InformationOrdered By: Babar Singh on 06-19-2024 Estimated GFR (CKD-EPI) > 60.0 mL/Min [facility] Creatinine Clearance (Chem 83.38 [facility] No Panel InformationOrdered By: PROVIDER SAMANTHA on 06-19-2024 Bedside Glucose #2 Comment Cleaned meter [facility] Bedside Glucose Comment See comment [facility] Comment on above: Glu2: WILL NOTIFY DR /RN Nucleated erythrocytes [Pres ence] in Blood by Automated countOrdered By: Babar Singh on 06-19-2024 Nucleated RBC Auto Ql (Bld) Nucleated erythrocytes [Presence] in Blood by Automated count 0-0.5 [facility] Platelet mean volume Auto (B ld) [Entitic vol]Ordered By: Babar Singh on 06-19-2024 Platelet mean volume (Bld) [Entitic vol] Platelet mean volume [Entitic volume] in Blood by Automated count 6.3-10.7 [facility] Platelets Auto (Bld) [#/Vol] Ordered By: Babar Singh on 06-19-2024 Platelets (Bld) [#/Vol] Platelets [#/volume] in Blood by Automated count 150-450 [facility] Potassium [Moles/volume] in Serum or PlasmaOrdered By: Babar Singh on 06-19-2024 Potassium [Moles/Vol] Potassium [Moles/v olume] in Serum or Plasma 3.5-5.1 [facility] Protein Test strip (U) [Mass /Vol]Ordered By: NOLVIA SINGH on 06-19-2024 Protein (U) [Mass/Vol] Protein [Mass/vol ume] in Urine by Test strip High Negative [facility] Protein [Mass/volume] in Ser um or PlasmaOrdered By: Babar Singh on 06-19-2024 Protein [Mass/Vol] Protein [Mass/volume ] in Serum or Plasma 6.4-8.9 [facility] RBC Auto (Bld) [#/Vol]Ordere d By: Babar Singh on 06-19-2024 RBC (Bld) [#/Vol] Erythrocytes [#/volu me] in Blood by Automated count 3.60-5.00 [facility] Serum or plasma albumin/glob ulin mass ratioOrdered By: Babar Singh on 06-19-2024 Albumin/Globulin [Mass ratio] Serum or plasma albumin/globulin mass ratio [facility] Serum or plasma anion gap de terminationOrdered By: Babar Singh on 06-19-2024 Anion gap [Moles/Vol] Serum or plasma an ion gap determination 6.0-15.0 [facility] Sodium [Moles/volume] in Ser um or PlasmaOrdered By: Babar Singh on 06-19-2024 Sodium [Moles/Vol] Sodium [Moles/volume ] in Serum or Plasma 136-145 [facility] Specific gravity Test strip (U) [Rel density]Ordered By: NOLVIA SINGH on 06-19-2024 Specific gravity (U) [Rel density] Specific gravity of Urine by Test strip 1.001-1.03 0 [facility] Troponin I High Sensitivityo n 06-19-2024 Troponin I High Sensitivity <3 Normal 0-15 [facility] Comment on above: Result Comment: The Troponin units of report have been changed to meet the Chest Pain Accreditation requirement, element EC5.M1l2. Troponin units are changed from pg/ml to ng/L. Also, the decimal is removed and results are in whole numbers. PERFORMED BY: [place] [address] PATHOLOGIST ELEMENT BURNER RAFIA LOPEZ M.D. Performed By: #### C MP, CK, HS TROP, CBC #### [address] Troponin I.cardiac [Mass/vol ume] in Serum or Plasma by Detection limit <= 0.01 ng/Ordered By: Babar Singh on 06-19-2024 Troponin I.cardiac DL <= 0.01 ng/mL [Mass/Vol] Troponin I.cardiac [Mass/volume] in Serum or Plasma by Detection limit <= 0.01 ng/ 0-15 [facility] Comment on above: The Troponin units o f report have been changed to meet the Chest Pain Accreditation requirement, element EC5.M1l2. Troponin units are changed from pg/ml to ng/L. Also, the decimal is removed and results are in whole numbers. Urea nitrogen [Mass/volume] in Serum or PlasmaOrdered By: Babar Singh on 06-19-2024 Urea nitrogen [Mass/Vol] Urea nitrogen [Mass/volume] in Serum or Plasma 12-12 [facility] Urobilinogen Test strip (U) [Mass/Vol]Ordered By: NOLVIA SINGH on 06-19-2024 Urobilinogen (U) [Mass/Vol] Urobilinogen [Mass/volume] in Urine by Test strip Normal [facility] WBC Auto (Bld) [#/Vol]Ordere d By: Babar Singh on 06-19-2024 WBC (Bld) [#/Vol] Leukocytes [#/volume ] in Blood by Automated count 3.8-11.6 [facility] pH Test strip (U)Ordered By: PROVIDER SAMANTHA on 06-19-2024 pH (U) pH of Urine by Test strip 5.0-9.0 [facility] Pedro 06-17-2024 L ------- Specimen: [id number] Received: 06/17/24 Status: MG Clemente Num: [id number] Spec Type: Surgical Subm Dr: Dano Pyle, DO Tissues: A Breast Lumpectmy/Mass - Requiring Micros Eval of Margins (RT BREAST MASS @ 1 B Breast Lumpectmy/Mass - Requiring Micros Eval of Margins (RT BREAST MASS @ 7 Procedures: , Gross/Micro L5/2 Age/ Patient Sex Location Account Attending Physician JoseBrittanie M 39/F [place] [id number] Dano Pyle, DO SPEC NUM: [id number] RECD: 06/17/24 STATUS: MG CLEMENTE NUM: [id number] TACOS: 06/17/[address]: Dano Pyle DO ENTERED: 06/17/24 KAMARI CARBALLO: MIKE TYPE: Surgical DEPT: S ENTERED BY: [id number] RECV BY: [id number] ORDERED: , Gross/Micro L5/2 ORDERED: , Gross/Micro L5/2 Pathological Diagnosis A, right breast mass at 10:00, lumpectomy: -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 -Patchy columnar cell hyperplasia in most epithelial linings, including occasional small foci of mild to moderate UDH, but also occasional small incidental foci of atypical columnar cell hyperplasia and/or atypical ductal hyperplasia (ADH), because of the more prominent nucleoli in the some of the more proliferative foci -No evidence of malignancy or any stromal cell atypia or overgrowth identified B, right breast mass at 7:00, lumpectomy: -Benign fibroadenoma (2.5 cm) of mostly intracanicular type, 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 Incidental small foci of ADH are all < 1 mm of note Specimen: [id number] Received: 06/17/24 Status: MG Elizabeth Num: [id number] Spec Type: Surgical Subm Dr: Dano Pyle, Tissues: A Breast Lumpectmy/Mass - Requiring Micros Eval of Margins (RT BREAST MASS @ 1 B Breast Lumpectmy/Mass - Requiring Micros Eval of Margins (RT BREAST MASS @ 7 Procedures: , Gross/Micro L5/2 Patient: GarciaBrittanie mcqueen [id number] (Continued) Specimen: [id number] Received: 06/17/24 (Continued) Signed (signature on file) Dany Fonseca MD 06/18/24 1427 Specimen: [id number] Received: 06/17/24 Status: MG Clemente Num: [id number] Spec Type: Surgical Subm Dr: Dano Pyle DO Tissues: A Breast Lumpectmy/Mass - Requiring Micros Eval of Margins (RT BREAST MASS @ 1 B Breast Lumpectmy/Mass - Requiring Micros Eval of Margins (RT BREAST MASS @ 7 Procedures: , Gross/Micro L5/2 Patient: Brittanie Garcia [id number] (Continued) Specimen: [id number] Received: 06/17/24 (Continued) Clinical Information RT breast masses x 2 at 10:00 and 7:00 Gross Description Part A is received in formalin labeled with the patients name, date of , and mass at 10:00 RT breast is an unoriented, well-circumscribed nodule, 3.2 x 2.4 x 1.5 cm with a detached 0.8 cm in greatest dimension tissue fragment. The specimens are inked black. Serial sections reveal cm-white to pale pink, glistening and uniform cut surfaces with a veined, leaf-like pattern. A biopsy clip was not identified. The nodule is entirely, sequentially submitted in A1?A7 with the bisected detached tissue fragment submitted in A8. Fixation Time: Time specimen extracted: 852 Time specimen sliced in formalin: 928 Cold ischemic time: 36 minutes Total fixation time: 8 hours (8, ns, [id number] A)JG Part B is received in formalin labeled with the patients name, date of , and mass at (more content not included)... Normal [facility] CNOVon 01-30-2024 CNOV Office Visit ([facility] ) BRITTANIE GARCIA ([id number]) 1985 F Date Time Provider Department 01/30/24 2:00 PM HARMAN SULLIVAN [facility] During your visit today, we [...] brought in by patient? No Lot #: [id number] Exp: 03/2026 Dilution: 5 units/0.1 ml (100 [...] Optional follow pain # units L R [employer] 10 units divided in 2 sites XXXXXXX [...] Harman Sullivan MD Referring Provider: HARMAN SULLIVAN [[id number]] Allergies As of Date: 01/30/2024 Noted Allergy [...] for Encounter Date Provider Department Center 01/30/2024 [id number], TED [facility] Encounter Status:Closed by HARMAN SULLIVAN on 01/30/24 Normal [facility] US breast RT limitedon 01-27 US breast RT limited [facility] [place] [address] Ultrasound Report Signed Patient: Brittanie Garcia MR#: [id number] : 1985 Acct:[id number] Age/Sex: 39 / F ADM Date: 01/28/24 Loc: [facility] Room: Type: [facility] Attending Dr: Dano Pyle DO Ordering Provider: [...] Binta Elaine M.D.01/28/2024 8:30 AM Dictation Location: [facility] Tech: Alayna Rowlander Transcribed By: JADEN 01/28/24829 Dictated By: Binta Elaine MD 01/28/24811 Signed By: 01/28/24829 Normal [facility] CNOVon 10-31-2023 CNOV Office Visit ([facility] ) JOSEBRITTANIE ([id number]) 1985 F Date Time Provider Department 10/31/23 10:30 AM HAMRAN SULLIVAN [facility] During your visit today, we [...] BOTOX brought in by patient? No Lot #:[id number] Exp: 10/2025 Dilution: 5 units/0.1 ml (100 [...] Optional follow pain # units L R [employer] 10 units divided in 2 sites XXXXXXX [...] Harman Sullivan MD Referring Provider: HARMAN SULLIVAN [[id number]] Allergies As of Date: 10/31/2023 Noted Allergy [...] for Encounter Date Provider Department Center 10/31/2023 [id number], TED [facility] Encounter Status:Closed by HARMAN SULLIVAN on 10/31/23 [facility] 10-31-2023 CNPN Telephone ([facility]) BRITTANIE GARCIA ([id number]) 1985 F Date Time Provider Department 10/31/23 HARMAN SULLIVAN [facility] During your visit today, we [...] Encounter Status:Closed by ESVIN VELAZQUEZ on 12/06/23 [facility] Telephone ([facility]) BRITTANIE GARCIA ([id number]) 1985 F Date Time Provider Department 10/31/23 HARMAN SULLIVAN [facility] During your visit today, we recorded the following information about you: Esvin Velazquez 10/31/2023 11:03 AM Signed Patient brought in [facility] paperwork for Dr. Sullivan to [...] Encounter Status:Closed by ESVIN [facility]ELAZQUEZ [facility]03[facility] ([facility]) BRITTANIE GARCIA ([id number]) 1985 F Date Time Provider Department 10/11/23 HARMAN SULLIVAN [facility] During your visit today, we [...] 30 slot to get her Botox in [place]. Per Dr. Sullivan, she does not need to then also keep her November 05 appt. Manolo Luther MA 10/22/2023 8:14 AM Signed Prior Auth Determination: Approved Medication/ Treatment: BOTOX Authorization Information/ Time Range: Botox, J0585 Approval Date Range: 10/16/2023 to 10/14/2024 Approval #: [id number] Dose AND Frequency: 200 units Q 12 [...] Encounter Status:Closed by PALLAVI DURON on 10/19/23 Normal [facility] CNOVon 09-21-2023 CNOV Office Visit ([facility] ) BRITTANIE GARCIA ([id number]) 1985 F Date Time Provider Department 09/21/23 8:30 AM HARMAN SULLIVAN [facility] During your visit today, we [...] (more content not included)... Normal [facility] 09-21-2023 CNPN Telephone ([facility]) BRITTANIE GARCIA ([id number]) 1985 F Date Time Provider Department 09/21/23 HARMAN SULLIVAN [facility] During your visit today, we recorded the following information about you: Manolo Luther MA 09/21/2023 8:46 AM Signed Requested image transfer from [facility] for most recent head/ neck imaging. Manolo Luther MA 09/21/2023 2:42 PM Signed Faxed record request form to [facility] Neurology [phone]. Manolo Luther MA 10/03/2023 3:08 PM Signed RECORDS RECEIVED via FAX: From: [facility] Placed at desk/tray for review. [...] Reason for Visit: Request Outside Medical Records [3575] Prescriptions as of 10/03/2023 - baclofen 10 [...] Encounter Status:Closed by MANOLO LUTHER on 09/21/23 [facility] Calcium [Mass/volume] in Ser um or PlasmaOrdered By: Dano Pyle on 05-01-2023 Calcium [Mass/Vol] 9.7 mg/dL 8.6-10.3 [facility] Carbon dioxide, total [Moles /volume] in Serum or PlasmaOrdered By: Dano Pyle on 05-01-2023 CO2 [Moles/Vol] 28.9 mmol/L 21.0-31.0 [facility] Chloride [Moles/volume] in S leticia or PlasmaOrdered By: Dano Pyle on 05-01-2023 Chloride [Moles/Vol] 105 mmol/L 98-107 [facility] Creatinine [Mass/volume] in Serum or PlasmaOrdered By: Dano Pyle on 05-01-2023 Creatinine [Mass/Vol] 0.75 mg/dL 0.60-1.20 [facility] Glucose [Mass/volume] in Ser um or PlasmaOrdered By: Dano Pyle on 05-01-2023 Glucose [Mass/Vol] 84 mg/dL 70-100 [facility] Comment on above: ADA recommended refe rence rangeRandom Glucose Reference Range is dependent on time and content of last meal. Glucose of more than 200 mg/dL in a nonstressed, ambulatory subject supports the diagnosis of Diabetes Mellitus. No Panel InformationOrdered By: Dano Pyle on 05-01-2023 Estimated GFR (CKD-EPI) > 60.0 mL/Min [facility] Creatinine Clearance (Chem N/A [facility] Potassium [Moles/volume] in Serum or PlasmaOrdered By: Dano Pyle on 05-01-2023 Potassium [Moles/Vol] 4.3 mmol/L 3.5-5.1 [facility] Serum or plasma anion gap de terminationOrdered By: Dano Pyle on 05-01-2023 Anion gap [Moles/Vol] 9.4 mmol/L 6.0-15.0 [facility] Sodium [Moles/volume] in Ser um or PlasmaOrdered By: Dano Pyle on 05-01-2023 Sodium [Moles/Vol] 139 mmol/L 136-145 [facility] Urea nitrogen [Mass/volume] in Serum or PlasmaOrdered By: Dano Pyle on 05-01-2023 Urea nitrogen [Mass/Vol] 14 mg/dL 7-25 [facility] SURGICAL PATHOLOGY REFERENCE LAB CONSULTon 04-11-2023 CASE REPORT Normal [facility] Comment on above: Order Comment: Speci men Type: FORMALIN-FIXED PARAFFIN-EMBEDDED TISSUE SPECIMENOrdering Facility: [facility] Address: [address] [place], [place] [address] [address] Result Comment: Surg [facility] Pathology Report Case: [id number] Authorizing Provider: Calvin Haynes MD Collected: 04/11/2023 10:31 AM Ordering Location: [facility] Received: 04/11/2023 10:32 AM [facility] Pathologist: Estiven Wang MD Specimen: SLIDE(S), 12 SLIDES, [id number] Performed By: #### L [id number] ####[facility] LAB[facility] [id number] [place] [address] [place] CLINICAL HISTORY CONSULT REQUESTED [facility] Comment on above: Order Comment: Speci men Type: FORMALIN-FIXED PARAFFIN-EMBEDDED TISSUE SPECIMENOrdering Facility: [facility] Address: [place] [id number] Performed By: #### L [id number] ####[facility] [id number] [address] [place] DIAGNOSIS COMMENT Normal [facility] Comment on above: Order Comment: Speci men Type: FORMALIN-FIXED PARAFFIN-EMBEDDED TISSUE SPECIMENOrdering Facility: [facility] Address: [place] [address] Result Comment: Many thanks for sending us [...] in consultation with Dr. Rogers, of the [facility] breast pathology department, who concurs. Performed By: #### L [id number] ####[facility] [id number] [address] FINAL DIAGNOSIS Normal [facility] Comment on above: Order Comment: Speci men Type: FORMALIN-FIXED PARAFFIN-EMBEDDED TISSUE SPECIMENOrdering Facility: [facility] Address: [place] [id number] Result Comment: Left breast, core biopsy - [place] spindle cell proliferation, (please see comment). Performed By: #### L [id number] ####[facility] [id number] [address] [place] FINAL PERFORMING LAB Normal [facility] Comment on above: Order Comment: Speci men Type: FORMALIN-FIXED PARAFFIN-EMBEDDED TISSUE SPECIMENOrdering Facility: [facility] Address: [place] [address] Result Comment: Diag nostic interpretation performed at [facility], [address] [id number] CLIA# [id number] Plasterer Helper: Oliverio Brito M.D. Performed By: #### L [id number] ####[facility]IA [id number] [facility] [id number] Salima 02-19-2023 CNPN Telephone (NIQ) BRITTANIE GARCIA ([id number]) 1985 F Date Time Provider Department 02/19/23 [facility] During your visit today, we recorded the following information about you: [place] 02/19/2023 12:09 PM Signed Scanned in medical records from [facility] for review Evonne Dillrad RN 02/19/2023 12:20 PM Signed Evonne GAMBOA BSN, RN, BA Evonne Dillard RN 02/19/2023 12:29 PM Signed Maria Del [facility] Borges APRN.SPORTS TEACHER You 1 minute ago (12:27 PM) Thank you. This is a normal value. PRATIBHA Louis, RN, BA Allergies As of Date: 02/19/2023 Noted Allergy Reaction ADHESIVE 07/28/2022 14 - Other: See Comments 2 - Rash CAFFEINE 06/13/2012 11 - Vomiting DHE 06/13/2012 12 - Shortness of Breath Date Reviewed: 01/12/2023 Reviewed by: Maria Del Carmen Borges APRN.SPORTS TEACHER - Fully Assessed Reason for Visit: Results [95] Cmt: [facility] Prescriptions as of 02/19/2023 - [...] Encounter Status:Closed by EVONNE DILLARD on 02/19/23 [facility] Salima 02-09-2023 EVELINE Telephone (IRAMQ) BRITTANIE GARCIA ([id number]) 1985 F Date Time Provider Department 02/09/23 [facility] During your visit today, we recorded the following information about you: Myrtle Gonzalez 02/09/2023 9:59 AM Signed Karyn in medical records from [facility] for review Evonne Dillard RN 02/09/2023 10:26 AM Signed Maria Del Carmen Borges APRN.SPORTS TEACHER You 2 minutes ago (10:23 AM) Reviewed. LI LouisN, RN, BA Allergies As of Date: 02/09/2023 Noted Allergy Reaction ADHESIVE 07/28/2022 14 - Other: See Comments 2 - Rash CAFFEINE 06/13/2012 11 - Vomiting DHE 06/13/2012 12 - Shortness of Breath Date Reviewed: 01/12/2023 Reviewed by: Maria Del Carmen Borges APRN.SPORTS TEACHER - Fully Assessed Reason for Visit: Results [95] Cmt: [facility] Prescriptions as of 02/09/2023 - cyclobenzaprine [...] Status:Closed by EVONNE DILLARD on 02/09/23 Normal [facility] Basophils Auto (Bld) [#/Vol] Ordered By: Maria Del Carmen Borges on 02-07-2023 Basophils (Bld) [#/Vol] 0.0 10*3/uL 0.0-0.2 [facility] Basophils/100 WBC Auto (Bld) Ordered By: Maria Del Carmen Borges on 02-07-2023 Basophils/100 WBC (Bld) 0.4 % . [facility] Eosinophils Auto (Bld) [#/Vo l]Ordered By: Maria Del Carmen Borges on 02-07-2023 Eosinophils (Bld) [#/Vol] 0.1 10*3/uL 0.0-0.45 [facility] Eosinophils/100 WBC Auto (Bl d)Ordered By: Maria Del Carmen Borges on 02-07-2023 Eosinophils/100 WBC (Bld) 1.2 % . [facility] Erythrocyte distribution wid th Auto (RBC) [Ratio]Ordered By: Maria Del Carmen Borges on 02-07-2023 Erythrocyte distribution width (RBC) [Ratio] 13.4 % 11.9-15.3 [facility] Ferritin [Mass/volume] in Se rum or PlasmaOrdered By: Maria Del Carmen Borges on 02-07-2023 Ferritin [Mass/Vol] 110.5 ng/mL 11.0-306.8 [facility] Hematocrit Auto (Bld) [Volum e fraction]Ordered By: Maria Del Carmen Borges on 02-07-2023 Hematocrit (Bld) [Volume fraction] 42.6 % 34.0-46.4 [facility] Hemoglobin [Mass/volume] in BloodOrdered By: Maria Del Carmen Borges on 02-07-2023 Hemoglobin (Bld) [Mass/Vol] 14.2 g/dL 11.8-15.4 [facility] Leukocytes [#/volume] correc harman for nucleated erythrocytes in Blood by Automated counOrdered By: Maria Del Carmen Borges on 02-07-2023 WBC corrected for nucl RBC Auto (Bld) [#/Vol] 7.0 10*3/uL 3.8-11.6 [facility] Lymphocytes Auto (Bld) [#/Vo l]Ordered By: Maria Del Carmen Borges on 02-07-2023 Lymphocytes (Bld) [#/Vol] 2.5 10*3/uL 1.00-4.8 [facility] Lymphocytes/100 WBC Auto (Bl d)Ordered By: Maria Dle Carmen Borges on 02-07-2023 Lymphocytes/100 WBC (Bld) 35.4 % . [facility] MCH Auto (RBC) [Entitic mass ]Ordered By: Maria Del Carmen Borges on 02-07-2023 MCH (RBC) [Entitic mass] 28.7 pg 24.7-34.3 [facility] MCHC Auto (RBC) [Mass/Vol]Or dered By: Maria Del Carmen Borges on 02-07-2023 MCHC (RBC) [Mass/Vol] 33.3 g/dL 32.0-35.0 [facility] MCV Auto (RBC) [Entitic vol] Ordered By: Maria Del Carmen Borges on 02-07-2023 MCV (RBC) [Entitic vol] 86.2 fL 80-100 [facility] Monocytes Auto (Bld) [#/Vol] Ordered By: Maria Del Carmen Borges on 02-07-2023 Monocytes (Bld) [#/Vol] 0.5 10*3/uL 0.0-0.8 [facility] Monocytes/100 WBC Auto (Bld) Ordered By: Maria Del Carmen Borges on 02-07-2023 Monocytes/100 WBC (Bld) 6.5 % . [facility] Neutrophils Auto (Bld) [#/Vo l]Ordered By: Maria Del Carmen Borges on 02-07-2023 Neutrophils (Bld) [#/Vol] 4.0 10*3/uL 1.8-7.7 [facility] Neutrophils/100 WBC Auto (Bl d)Ordered By: Maria Del Carmen Borges on 02-07-2023 Neutrophils/100 WBC (Bld) 56.5 % . [facility] Nucleated erythrocytes [Pres ence] in Blood by Automated countOrdered By: Maria Del Carmen Borges on 02-07-2023 Nucleated RBC Auto Ql (Bld) 0.1 /100{WBC} 0-0.5 [facility] Platelet mean volume Auto (B ld) [Entitic vol]Ordered By: Maria Del Carmen Borges on 02-07-2023 Platelet mean volume (Bld) [Entitic vol] 8.3 fL 6.3-10.7 [facility] Platelets Auto (Bld) [#/Vol] Ordered By: Maria Del Carmen Borges on 02-07-2023 Platelets (Bld) [#/Vol] 223 10*3/uL 150-450 [facility] RBC Auto (Bld) [#/Vol]Ordere d By: Maria Del Carmen Borges on 02-07-2023 RBC (Bld) [#/Vol] 4.94 10*6/uL 3.60-5.00 [facility] WBC Auto (Bld) [#/Vol]Ordere d By: Maria Del Carmen Borges on 02-07-2023 WBC (Bld) [#/Vol] 7.0 10*3/uL 3.8-11.6 [facility] Echocardiogramon 12-28-[address] [facility] dusky [address] [place] [address], [address], [place] [address] TRANSTHORACIC ECHOCARDIOGRAM REPORT Patient Name: BRITTANIE Zoe Rudd Physician: [id number] Saeed GARCIA MD Study Date: 12/28/2022 Referring SORAYA FAUZIA Physician: MRN/PID: [id number] PCP: Filiberto Ying Accession/Order#: [id number] Department [facility] Location: [place] Date of : 1985 Fellow: Gender: F Nurse: Admit Date: Latcher: Lanny Padron RDCS, RVT Height: 157.48 cm CC Report to: Weight: 74.84 kg Study Type: Echocardiogram BSA: 1.76 m2 Blood Pressure: 106 /70 mmHg Diagnosis/ICD: R00.0-Tachycardia, unspecified; B89-Pyvwyut Indication: Hyperlipidemia, Overweight Procedure/CPT: Echo Complete w Full Doppler-12246 Study Detail: The following Echo studies were [...] 0.8 m/s (0.6-0.9m/s) PV Max P.4 mmHg [id number] Saeed Parada MD Electronically signed on 01/01/2023 at 2:35:16 PM Final Normal [facility] Office Visit (Cardiology)on 11-14-2022 Follow-up visit [...] alcoholic beverages.; Status:Complete - Retrospective Authorization; Done: [id number] Drink at least 6 glasses of water or juice a day.; Status:Complete - Retrospective Authorization; Done: [id number] Patient Instructions Avoid dehydration. Drink 5-6 bottles [...] the time of your visit. Corina Jordan CAREER TECHNICAL COUNSELOR, am scribing for and in the presence of Dr. Soraya Arcos, FACC, FACP, RS The provider reviewed the following test(s) and result(s) with the patient: ECG, Holter monitor and Tilt table Chief Complaint [facility]. Adult Risk Screening Initial Fall Risk Screening: [...] Normal axis. Corrected QT interval 420 ms. PA interval 150 ms See signed ECG and check /Paceart. Imp / Plan Recurrent syncope, consistent with vasovagal etiology. Discussed mechanisms of syncope. Reviewed syncope brochure. Reviewed testing event monitor and tilt table te (more content not included)... Normal [facility] Office Visit (Cardiology)on 11-10-2022 Follow-up visit Diagnoses/Problems [...] visit scheduled for November [address] Arcos). Otherwise she can follow-up with me as [...] Signs Recorded: 10Nov2022 09:01AMRecorded: 10Nov2022 08:58AM Systolic Sdenofb13, LUE, Sitting Diastolic Mzzwkjy26, LUE, Sitting Systolic Aifsccts300, LUE, Standing Diastolic Aolerfxz01, LUE, Standing Heart Rate92, L Radial Opbbphim64, LUE, Sitting Nxuziifaf75, LUE, Sitting Height5 ft 2 in Dduqeh330 lb BMI Heycesycim31.63 kg/m2 BSA Calculated1.75 Tobacco Useb) No Falls [...] (Author) Normal [facility] No [facility] Work Phone: Cardiovasc Arrhythmia Result son 09-29-2022 Cardiovasc Arrhythmia Results Reason For Visit Event Monitor: BRITTANIE is here for the application of a 30 day event monitor in office., Diagnosis: Syncope,Fainting Ordering Physician: Dr. Saeed Castellanos DO Enrollment sent to: [employer] Monitor number [id number] applied. Holter monitor printed and placed on [...] Nov 02 2022 9:05AM EST (Author) Normal [facility] Office Visit (Cardiology)on 09-20-2022 Follow-up visit Diagnoses/Problems [...] no rebound tachycardia. Recommendations, obtain [facility] monitoring, tilt table test, refer to [...] Signs Recorded: 20Sep2022 10:01AMRecorded: 20Sep2022 09:59AM Systolic Hgqlz524 Diastolic Lying88 Systolic Fdmiart981 Diastolic Qbkisxe39 Systolic Fzizrkps578 Diastolic Mvicziih35 Heart Rate85, Apical Dragmwac827, LUE, Supine Hfbchqzje04, LUE, Supine Height5 ft 2 in Pokdrw596 lb BMI Zquarxzxvt49.36 kg/m2 BSA Calculated1.77 Tobacco Useb) No PHQ-2 #1. Ov (more content not included)... Normal [facility] Tobacco Screening.on 023 Adult depression screening assessment No [facility] [employer] ilan 250 DO Work Phone: Tobacco use status CPHS b) No [facility] [employer] 250 DO Work Phone: MAGDA BY IFA WITH REFLEXon Nuclear Ab IF (S) [Titer] Negative Negative [facility] CCP ANTIBODY IGGon Cyclic citrullinated peptide IgG Qn <20 Units [facility] Cyclic citrullinated peptide IgG Qnon 07-31-2022 CCP Antibody IgG Qualitative Negative Negative [facility] C-REACTIVE PROTEIN (CRP)on 0 07-28-2022 CRP [Mass/Vol] <0.9 mg/dL [facility] CBC W Auto Differential pane l (Bld)on 07-28-2022 Basophils (Bld) [#/Vol] 0.03 10*3/uL <0.11 k/uL [facility] Basophils/100 WBC (Bld) 0.4 % [facility] Differential cell count method Nom (Bld) Auto [facility] Eosinophils (Bld) [#/Vol] 0.07 10*3/uL <0.46 k/uL [facility] Eosinophils/100 WBC (Bld) 0.9 % [facility] Erythrocyte distribution width (RBC) [Ratio] 13.0 % 11.5 - 15.0 % [facility] Hematocrit (Bld) [Volume fraction] 44.1 % 36.0 - 46.0 % [facility] Hemoglobin (Bld) [Mass/Vol] 14.3 g/dL 11.5 - 15.5 g/dL [facility] Immature granulocytes (Bld) [#/Vol] <0.10 k/uL [facility] Immature granulocytes/100 WBC (Bld) 0.3 % [facility] Lymphocytes (Bld) [#/Vol] 2.43 10*3/uL 1.00 - 4.00 k/uL [facility] Lymphocytes/100 WBC (Bld) 30.5 % [facility] MCH (RBC) [Entitic mass] 29.0 pg 26.0 - 34.0 pg [facility] MCHC (RBC) [Mass/Vol] 32.4 g/dL 30.5 - 36.0 g/dL [facility] MCV (RBC) [Entitic vol] 89.5 fL 80.0 - 100.0 fL [facility] Monocytes (Bld) [#/Vol] 0.49 10*3/uL <0.87 k/uL [facility] Monocytes/100 WBC (Bld) 6.1 % [facility] Neutrophils (Bld) [#/Vol] 4.93 10*3/uL 1.45 - 7.50 k/uL [facility] Neutrophils/100 WBC (Bld) 61.8 % [facility] Nucleated RBC (Bld) [#/Vol] <0.01 k/uL [facility] Nucleated RBC/100 WBC (Bld) [Ratio] 0.0 /100 WBC [facility] Platelet mean volume (Bld) [Entitic vol] 10.1 fL 9.0 - 12.7 fL [facility] Platelets (Bld) [#/Vol] 251 10*3/uL 150 - 400 k/uL [facility] RBC (Bld) [#/Vol] 4.93 10*6/uL 3.90 - 5.20 m/uL [facility] WBC (Bld) [#/Vol] 7.97 10*3/uL 3.70 - 11.00 k/uL [facility] Comprehensive metabolic 2000 panelon 07-28-2022 Albumin [Mass/Vol] 4.7 g/dL 3.9 - 4.9 g/dL [facility] ALP [Catalytic activity/Vol] 86 U/L 34 - 123 U/L [facility] ALT [Catalytic activity/Vol] 58 U/L High 7 - 38 U/L [facility] Anion gap [Moles/Vol] 12 mmol/L 9 - 18 mmol/L [facility] AST [Catalytic activity/Vol] 31 U/L 13 - 35 U/L [facility] Bilirubin [Mass/Vol] 0.4 mg/dL 0.2 - 1 .3 mg/dL [facility] Calcium [Mass/Vol] 10.0 mg/dL 8.5 - 10. 2 mg/dL [facility] Chloride [Moles/Vol] 105 mmol/L 97 - 10 5 mmol/L [facility] CO2 [Moles/Vol] 23 mmol/L 22 - 30 mmol/L [facility] Creatinine [Mass/Vol] 0.79 mg/dL 0.58 - 0.96 mg/dL [facility] Estimated Glomerular Filtration Rate 100 mL/min/1.73m >=60 mL/min/1.7 3m [facility] Glucose [Mass/Vol] 84 mg/dL 74 - 99 mg/dL [facility] Potassium [Moles/Vol] 4.1 mmol/L 3.7 - 5.1 mmol/L [facility] Protein [Mass/Vol] 7.7 g/dL 6.3 - 8.0 g/dL [facility] Sodium [Moles/Vol] 140 mmol/L 136 - 144 mmol/L [facility] Urea nitrogen [Mass/Vol] 12 mg/dL 7 - 21 mg/dL [facility] ESR Westergren method (Bld) [Velocity]on 07-28-2022 ESR (Bld) [Velocity] 5 mm/h 0 - 20 mm/hr [facility] No Panel Informationon 07-28 [facility] RHEUMATOID FACTOR BLon 07-28 Rheumatoid factor Qn <16 IU/mL [facility] XR CSPINE OBL FLEX_EXTon XR CSPINE OBL [...] MONTERO Date: 2022-02-16 08:57 Normal [facility] Ferritin [Mass/volume] in Se rum or PlasmaOrdered By: Kenna Sheehan on 01-19-2022 Ferritin [Mass/Vol] 51.8 ng/mL 11-306.8 [facility] PAP ACOG PANEL 2: 30 to 65on 01-13-2022 . . Normal [facility] Comment on above: Result Comment: Perf ormed at: WB Performed By: #### [id number] #### [facility] [address] [place] [address] Dr. Lui Fonseca Age Gdln ACOG Testing 30-65 Normal [facility] Comment on above: Performed By: #### [id number] #### [facility] [address] [place] [address] [address] Lui Fonseca DIAGNOSIS: Comment Normal [facility] Comment on above: Result Comment: NEGA TIVE FOR INTRAEPITHELIAL LESION OR MALIGNANCY. Performed at: WB Performed By: #### [id number] #### [facility] [address] [place] [address] [address] Lui Fonseca HPV Aptima Negative Normal Negative [facility] Comment on above: Result Comment: This nucleic acid amplification test detects fourteen high-risk HPV types (16,18,31,33,35,39,45,51,52,56,58,59,66,68) without differentiation. Performed at: =G Performed By: #### [id number] #### [facility] [address] [place] [address] Dr. Lui Fonseca Methodology: Comment Normal [facility] Comment on above: Result Comment: This liquid based ThinPrep(R) pap test was screened with the use of an image guided system. Performed at: WB Performed By: #### [id number] #### [facility] [address] [place] [address] Dr. Lui Fonseca Note: Comment Normal [facility] Comment on above: Result Comment: The Pap smear is a screening test designed to aid in the detection of premalignant and malignant conditions of the uterine cervix. It is not a diagnostic procedure and should not be used as the sole means of detecting cervical cancer. Both false-positive and false-negative reports do occur. . Performed at: WB Performed By: #### [id number] #### [facility] [address] [place] [address] Dr. Lui Fonseca Performed by: Comment Normal [facility] Comment on above: Result Comment: Susan Alejandro, Supervisory Computer Specialist (ASCP) Performed at: WB Performed By: #### [id number] #### [facility] [address] [place] [address] Dr. Lui Fonseca Specimen adequacy: Comment Normal [facility] Comment on above: Result Comment: Sati sfactory for evaluation. No endocervical component is identified. Performed at: WB Performed By: #### [id number] #### [facility] [address] [place] [address] Dr. Lui Fonseca INSULINon 01-02-2022 Insulin 20.6 uIU/mL Normal 2.6-24.9 [facility] Comment on above: Performed By: #### I NSULIN #### [facility] [address] [place] [address] Dr. Lui Fonseca H PYLORI ANTIBODY IGGon - H. PYLORI IGG ABS 0.15 Index Value Normal 0.00-0.79 [facility] Comment on above: Result Comment: Nega tive <0.80 Equivocal 0.80 - 0.89 Positive >0.89 Performed By: #### H PYLLC #### [facility] [address] [place] [address] Dr. Lui Fonseca T4, T3U, FTI LABCORPon 01-01 Free Thyroxine Index 2.7 Normal 1.2-4.9 [facility] Comment on above: Performed By: #### T HYLC #### [facility] [address] [place] [address] Dr. Lui Fonseca T3 Uptake 30 % Normal 24-39 [facility] Comment on above: Performed By: #### T HYLC #### [facility] [address] [place] [address] Dr. Lui Fonseca T4 [Mass/Vol] 9.1 ug/dL Normal 4.5-12.0 [facility] Comment on above: Performed By: #### T HYLC #### [facility] [address] [place] [address] Dr. Lui Fonseca CBC AUTO DIFFon 12-31-2021 BASO # 0.0 103/ul Normal 0.0-0.1 [facility] Comment on above: Performed By: #### C BC #### [facility] [address] [place] [address] Dr. Lui Fonseca Basophils/100 WBC (Bld) 0.4 % Normal 0.2-2.0 [facility] Comment on above: Performed By: #### C BC #### [facility] [address] [place] [address] Dr. Lui Fonseca EO # 0.2 103/ul Normal 0.0-0.[address] [facility] Comment on above: Performed By: #### C BC #### [facility] [address] [place] [address] Dr. Lui Fonseca Eosinophils/100 WBC (Bld) 2.8 % Normal 0.9-7.[address] [facility] Comment on above: Performed By: #### C BC #### [facility] [address] [place] [address] Dr. Lui Fonseca Erythrocyte distribution width (RBC) [Ratio] 13.2 % Normal 11.0-15.0 [facility] Comment on above: Performed By: #### C BC #### [facility] [address] [place] [address] Dr. Lui Fonseca Hematocrit (Bld) [Volume fraction] 44.0 % Normal 36.0-48.0 [facility] Comment on above: Performed By: #### C BC #### [facility] [address] [place] [address] Dr. Lui Fonseca Hemoglobin (Bld) [Mass/Vol] 14.3 g/dL Normal 12.0-16.0 [facility] Comment on above: Performed By: #### C BC #### [facility] [address] [place] [address] Dr. Lui Fonseca IG # 0.01 10e3/ul Normal 0.00-0.03 [facility] Comment on above: Performed By: #### C BC #### [facility] [address] [place] [address] Dr. Lui Fonseca IG % 0.2 % Normal 0.0-0.5 [facility] Comment on above: Performed By: #### C BC #### [facility] [address] [place] [address] Dr. Lui Fonseca LYMPH # 2.3 103/ul Normal 1.2-3.8 [facility] Comment on above: Performed By: #### C BC #### [facility] [address] [place] [address] Dr. Lui Fonseca Lymphocytes/100 WBC (Bld) 41.6 % Normal 20.5-60.0 [facility] Comment on above: Performed By: #### C BC #### [facility] [address] [place] [address] Dr. Lui Fonseca MANUAL DIFF REQ NO Normal [facility] Comment on above: Performed By: #### C BC #### [facility] [address] [place] [address] Dr. Lui Fonseca MCH (RBC) [Entitic mass] 29.1 pg Normal 26.7-34.0 [facility] Comment on above: Performed By: #### C BC #### [facility] [address] [place] [address] [address] Lui Fonseca MCHC (RBC) [Mass/Vol] 32.5 g/dL Normal 29.9-35.2 [facility] Comment on above: Performed By: #### C BC #### [facility] [address] [place] [address] Dr. Lui Fonseca MCV (RBC) [Entitic vol] 89.6 fL Normal 81.0-99.0 [facility] Comment on above: Performed By: #### C BC #### [facility] [address] [place] [address] Dr. Lui Fonseca MONO # 0.3 103/ul Normal 0.3-0.8 [facility] Comment on above: Performed By: #### C BC #### [facility] [address] [place] [address] Dr. Lui Fonseca Monocytes/100 WBC (Bld) 6.3 % Normal 1.7-12.0 [facility] Comment on above: Performed By: #### C BC #### [facility] [address] [place] [address] Dr. Lui Fonseca NEUT # 2.7 103/ul Normal 1.4-6.5 [facility] Comment on above: Performed By: #### C BC #### [facility] [address] [place] [address] Dr. Lui Fonseca Neutrophils/100 WBC (Bld) 48.7 % Normal 43.0-75.[address] [facility] Comment on above: Performed By: #### C BC #### [facility] [address] [place] [address] Dr. Lui Fonseca Platelet mean volume (Bld) [Entitic vol] 9.5 fL Normal 9.5-13.[address] [facility] Comment on above: Performed By: #### C BC #### [facility] [address] [place] [address] Dr. Lui Fonseca PLT 276 103/ul Normal 150-[address] [facility] Comment on above: Performed By: #### C BC #### [facility] [address] [place] [address] [address] Lui Fonseca RBC 4.91 106/ul Normal 4.20-5.[address] [facility] Comment on above: Performed By: #### C BC #### [facility] [address] [place] [address] Dr. Lui Fonseca WBC 5.4 103/ul Normal 4.0-11.[address] [facility] Comment on above: Performed By: #### C BC #### [facility] [address] [place] [address] Dr. Lui Fonseca GLYCOHEMOGLOBIN A1Con 2021 ADA RECOMMENDATION SEE BELOW Normal [facility] Comment on above: Result Comment: ADA RECOMMENDED LIMIT 4.0 - 6.0 ADA THERAPEUTIC TARGET < 7.0 ACTION SUGGESTED > 7.0 Performed By: #### A 1C ####[facility] [address] [place] [address]Dr. Lui Fonseca Glucose [Mass/Vol] 97 mg/dL Normal [facility] Comment on above: Performed By: #### A 1C ####[facility] [address] [place] [address]Dr. Lui Fonseca HbA1c (Bld) [Mass fraction] 5.0 % Normal 4.5-6.2 [facility] Comment on above: Performed By: #### A 1C ####[facility] [address] [place] [address]Dr. Lui Fonseca IRONon 12-31-2021 Iron [Mass/Vol] 101.0 ug/dL Normal 50.0-170.[address] [facility] Comment on above: Performed By: #### I EDMOND #### [facility] [address] [place] [address] Dr. Lui Fonseca LIPID PROFILEon 12-31-2021 CHOL-HDL RATIO NORM SEE BELOW Normal [facility] Comment on above: Result Comment: 3.3 - 4.4 LOW RISK 4.4 - 7.1 AVERAGE RISK 7.1 - 11.0 MODERATE RISK >11.0 HIGH RISK Performed By: #### T SH, LIPID, CMP ####[facility] [address] [place] [id number]. Lui Fonseca Cholesterol [Mass/Vol] 149 mg/dL Normal <=200 [facility] Comment on above: Performed By: #### T SH, LIPID, CMP ####[facility] [address] [place] [id number]. Lui Fonseca Cholesterol in HDL [Mass/Vol] 55 mg/dL Normal 40-60 [facility] Comment on above: Performed By: #### T SH, LIPID, CMP ####[facility] [address] [place] [id number]. Lui Fonseca Cholesterol in LDL [Mass/Vol] 61.4 mg/dL Normal [facility] Comment on above: Performed By: #### T SH, LIPID, CMP ####[facility] [address] [place], [place] [address]Dr. Lui Fonseca Cholesterol.total/Chol esterol in HDL [Mass ratio] 2.7 {ratio} Normal [facility] Comment on above: Performed By: #### T SH, LIPID, CMP ####[facility] [address] [place] [id number]. Lui Fonseca HDL NORMAL > or = 60 mg/dl - LO W CARDIOVASCULAR RISK <40 mg/dl - HIGH CARDIOVASCULAR RISK Normal [facility] Comment on above: Performed By: #### T SH, LIPID, CMP ####[facility] [address] [place] [address]Dr. Lui Fonseca LDL CALC NORMAL SEE BELOW Normal [facility] Comment on above: Result Comment: <100 mg/dl OPTIMAL 100 - 129 mg/dl NEAR OR ABOVE OPTIMAL 130 - 159 mg/dl BORDERLINE HIGH 160 - 189 mg/dl HIGH >190 mg/dl VERY HIGH Performed By: #### T SH, LIPID, CMP ####[facility] [address] [place] [address]Dr. Lui Fonseca Triglyceride [Mass/Vol] 163 mg/dL Critically high <=150 [facility] Comment on above: Performed By: #### T SH, LIPID, CMP ####[facility] [address] [place] [id number]. Lui Fonseca VLDL CALC 32.6 mg/dL Normal [facility] Comment on above: Performed By: #### T SH, LIPID, CMP ####[facility] [address] [place] [id number]. Lui Fonseca OCC BLD IMMUNO SCREENon 12-19 OCCULT BLOOD Negative Normal NEGATIVE [facility] Comment on above: Performed By: #### O BSCRN #### [facility] [address] [place], [place] [address] Dr. Lui Fonseca PROF 14(COMP METB)on 022 Albumin [Mass/Vol] 4.1 g/dL Normal 3.4-5.0 [facility] Comment on above: Performed By: #### T MAMADOU, LIPID, CMP ####[facility] [address] [place] [address]Dr. Lui Fonseca Albumin/Globulin [Mass ratio] 1.2 {ratio} Normal [facility] Comment on above: Performed By: #### T MAMADOU, LIPID, CMP ####[facility] [address] [place] [address]Dr. Lui Fonseca ALP [Catalytic activity/Vol] 86 U/L Normal 46-116 [facility] Comment on above: Performed By: #### T MAMADOU, LIPID, CMP ####[facility] [address] [place] [id number]. Lui Fonseca ALT [Catalytic activity/Vol] 27 U/L Normal 14-59 [facility] Comment on above: Performed By: #### T SH, LIPID, CMP ####[facility] [address] [place] [id number]. Lui Fonseca Anion gap [Moles/Vol] 14.1 mmol/L Normal [facility] Comment on above: Performed By: #### T SH, LIPID, CMP ####[facility] [address] [place] [id number]. Lui Fonseca AST [Catalytic activity/Vol] 15 U/L Normal 15-37 [facility] Comment on above: Performed By: #### T SH, LIPID, CMP ####[facility] [address] [place] [address]Dr. Lui Fonseca Bilirubin [Mass/Vol] 0.6 mg/dL Normal 0.2-1.[address] [facility] Comment on above: Performed By: #### T SH, LIPID, CMP ####[facility] [address] [place], [place] [address]Dr. Lui Fonseca Calcium [Mass/Vol] 9.1 mg/dL Normal 8.5-10.[address] [facility] Comment on above: Performed By: #### T SH, LIPID, CMP ####[facility] [id number] [place], [place] [address]Dr. Lui Fonseca Chloride [Moles/Vol] 104 mmol/L Normal 98-[address] [facility] Comment on above: Performed By: #### T SH, LIPID, CMP ####[facility] [address] [place], [place] [address]Dr. Lui Fonseca CO2 [Moles/Vol] 26.8 mmol/L Normal 21.0-32.[address] [facility] Comment on above: Performed By: #### T SH, LIPID, CMP ####[facility] [address] [place], [place] [address]Dr. Lui Fonseca Creatinine [Mass/Vol] 0.84 mg/dL Normal 0.55-1.[address] [facility] Comment on above: Performed By: #### T SH, LIPID, CMP ####[facility] [id number] [place], [place] [address]Dr. Lui Fonseca EGFR-AF FILIPINO >60 Normal >=[address] [facility] Comment on above: Performed By: #### T SH, LIPID, CMP ####[facility] [id number] [place], [place] [address]Dr. Lui Fonseca EGFR-NON AF FILIPINO >60 Normal >=[address] [facility] Comment on above: Performed By: #### T SH, LIPID, CMP ####[facility] T[address] [place], [place] [address]Dr. Lui Fonseca Globulin (S) [Mass/Vol] 3.3 g/dL Normal [facility] Comment on above: Performed By: #### T MAMADOU, LIPID, CMP ####[facility] [address] [place] [address]Dr. Lui Fonseca Glucose [Mass/Vol] 93 mg/dL Normal 74-[address] [facility] Comment on above: Performed By: #### T MAMADOU, LIPID, CMP ####[facility] [address] [place] [address]Dr. Lui Fonseca Potassium [Moles/Vol] 3.9 mmol/L Normal 3.5-5.[address] [facility] Comment on above: Performed By: #### T MAMADOU LIPID, CMP ####[facility] [id number] [place], [place] [address]Dr. Lui Fonseca Protein [Mass/Vol] 7.4 g/dL Normal 6.4-8.[address] [facility] Comment on above: Performed By: #### T MAMADOU LIPID, CMP ####[facility] [address] [place], [place] [address]Dr. Lui Fonseca Sodium [Moles/Vol] 141 mmol/L Normal 136-[address] [facility] Comment on above: Performed By: #### T MAMADOU, LIPID, CMP ####[facility] [address] [place], [place] [address]Dr. Lui Fonseca Urea nitrogen [Mass/Vol] 8.0 mg/dL Normal 7.0-18.[address] [facility] Comment on above: Performed By: #### T MAMADOU, LIPID, CMP ####[facility] [address] [place], [place] [address]Dr. Lui Fonseca Urea nitrogen/Creatinine [Mass ratio] 9.5 mg/mg Normal [facility] Comment on above: Performed By: #### T MAMADOU, LIPID, CMP ####[facility] [address] [place], [place] [address]Dr. Lui Fonseca TSHon 12-31-2021 TSH 0.539 uIU/mL Normal 0.358-3.[address] [facility] Comment on above: Performed By: #### T MAMADOU, LIPID, CMP ####[facility] [address] [place], [place] [address]Zn. Lui Fonseca Vital Signs Date Time Vital Sign Value Performing Clinician Facility 07-30-2024 16:17-0400 Body height 157.5 cm Harman Sullivan MD Work Phone: [facility] 07-30-2024 16:17-0400 Body mass index (BMI) [Ratio] 30.24 kg/m2 Harman Sullivan MD Work Phone: [facility] 07-30-2024 16:17-0400 Body weight 75 kg Harman Sullivan MD Work Phone: [facility] 07-30-2024 16:17-0400 Diastolic blood pressure 82 mm[Hg] Harman Sullivan MD Work Phone: [facility] 07-30-2024 16:17-0400 Heart rate 106 /min Harman Sullivan MD Work Phone: [facility] 07-30-2024 16:17-0400 SaO2% (BldA) [Mass fraction] 98 % Harman Sullivan MD Work Phone: [facility] 07-30-2024 16:17-0400 Systolic blood pressure 128 mm[Hg] Harman Sullivan MD Work Phone: [facility] 06-19-2024 20:00-0500 Diastolic blood pressure 61 mm[Hg] Filiberto Ying MD Work Phone: [facility] 06-19-2024 20:00-0500 Heart rate 67 /min Filiberto Ying MD Work Phone: [facility] 06-19-2024 20:00-0500 Respiratory rate 24 /min Filiberto Ying MD Work Phone: [facility] 06-19-2024 20:00-0500 SaO2% (BldA) [Mass fraction] 99 % Filiberto Ying MD Work Phone: [facility] 06-19-2024 20:00-0500 Systolic blood pressure 103 mm[Hg] Filiberto Ying MD Work Phone: [facility] 06-19-2024 13:52-0500 Body height 157.48 cm Filiberto Ying MD Work Phone: [facility] 06-19-2024 13:52-0500 Body temperature 98.1 [degF] Filiberto Ying MD Work Phone: [facility] 06-19-2024 13:52-0500 Body weight 74 kg Filiberto Ying MD Work Phone: [facility] 06-17-2024 10:04-0500 Diastolic blood pressure 72 mm[Hg] Filiberto Ying MD Work Phone: [facility] 06-17-2024 10:04-0500 Heart rate 85 /min Filiberto Ying MD Work Phone: [facility] 06-17-2024 10:04-0500 Respiratory rate 20 /min Filiberto Ying MD Work Phone: [facility] 06-17-2024 10:04-0500 SaO2% (BldA) [Mass fraction] 100 % Filiberto Ying MD Work Phone: [facility] 06-17-2024 10:04-0500 Systolic blood pressure 121 mm[Hg] Filiberto Ying MD Work Phone: [facility] 06-17-2024 09:19-0500 Body temperature 97 [degF] Filiberto Ying MD Work Phone: [facility] 06-17-2024 09:19-0500 Inhaled oxygen flow rate 6 L/min Filiberto Ying MD Work Phone: [facility] 06-17-2024 06:55-0500 Body height 157.48 cm Filiberto Ying MD Work Phone: [facility] 06-17-2024 06:55-0500 Body weight 75 kg Filiberto Ying MD Work Phone: [facility] 01-30-2024 13:48-0400 Body height 157.5 cm Harman Sullivan MD Work Phone: [facility] 01-30-2024 13:48-0400 Body mass index (BMI) [Ratio] 28.43 kg/m2 Harman Sullivan MD Work Phone: [facility] 01-30-2024 13:48-0400 Body weight 70.5 kg Harman Sullivan MD Work Phone: [facility] 01-30-2024 13:48-0400 Diastolic blood pressure 76 mm[Hg] Harman Sullivan MD Work Phone: [facility] 01-30-2024 13:48-0400 Heart rate 91 /min Harman Sullivan MD Work Phone: [facility] 01-30-2024 13:48-0400 Systolic blood pressure 115 mm[Hg] Harman Sullivan MD Work Phone: [facility] 10-31-2023 10:14-0400 Body height 157.5 cm Harman Sullivan MD Work Phone: [facility] 10-31-2023 10:14-0400 Body mass index (BMI) [Ratio] 27.82 kg/m2 Harman Sullivan MD Work Phone: [facility] 10-31-2023 10:14-0400 Body weight 69 kg Harman Sullivan MD Work Phone: [facility] 10-31-2023 10:14-0400 Diastolic blood pressure 70 mm[Hg] Harman Sullivan MD Work Phone: [facility] 10-31-2023 10:14-0400 Heart rate 84 /min Harman Sullivan MD Work Phone: [facility] 10-31-2023 10:14-0400 Systolic blood pressure 109 mm[Hg] aHrman Sullivan MD Work Phone: [facility] 09-21-2023 08:12-0400 Body height 157.5 cm Harman Sullivan MD Work Phone: [facility] 09-21-2023 08:12-0400 Body mass index (BMI) [Ratio] 27.58 kg/m2 Harman Sullivan MD Work Phone: [facility] 09-21-2023 08:12-0400 Body weight 68.4 kg Harman Sullivan MD Work Phone: [facility] 09-21-2023 08:12-0400 Diastolic blood pressure 74 mm[Hg] Harman Sullivan MD Work Phone: [facility] 09-21-2023 08:12-0400 Heart rate 84 /min Harman Sullivan MD Work Phone: [facility] 09-21-2023 08:12-0400 SaO2% (BldA) [Mass fraction] 99 % Harman Sullivan MD Work Phone: [facility] 09-21-2023 08:12-0400 Systolic blood pressure 109 mm[Hg] Harman Sullivan MD Work Phone: [facility] 05-15-2023 12:15-0500 Diastolic blood pressure 67 mm[Hg] MD Filiberto Ying Work Phone: [facility] 05-15-2023 12:15-0500 Heart rate 86 /min MD Filiberto Ying Work Phone: [facility] 05-15-2023 12:15-0500 Respiratory rate 16 /min MD Filiberto Ying Work Phone: [facility] 05-15-2023 12:15-0500 SaO2% (BldA) [Mass fraction] 100 % MD Filiberto Ying Work Phone: [facility] 05-15-2023 12:15-0500 Systolic blood pressure 125 mm[Hg] MD Filiberto Ying Work Phone: [facility] 05-15-2023 11:10-0500 Inhaled oxygen flow rate 6 L/min MD Filiberto Ying Work Phone: [facility] 05-15-2023 10:55-0500 Body temperature 98.1 [degF] MD Filiberto Ying Work Phone: [facility] 05-15-2023 09:30-0500 Body mass index (BMI) [Ratio] 25.8 kg/m2 MD Filiberto Ying Work Phone: [facility] 05-15-2023 08:55-0500 Body height 157.48 cm MD Filiberto Ying Work Phone: [facility] 05-15-2023 08:55-0500 Body weight 64 kg MD Filiberto Ying Work Phone: [facility] 04-05-2023 12:08-0500 Body temperature 98.2 [degF] MD Filiberto Ying Work Phone: [facility] 04-05-2023 12:08-0500 Diastolic blood pressure 69 mm[Hg] MD Filiberto Ying Work Phone: [facility] 04-05-2023 12:08-0500 Heart rate 87 /min MD Filiberto Ying Work Phone: [facility] 04-05-2023 12:08-0500 Respiratory rate 18 /min MD Filiberto Ying Work Phone: [facility] 04-05-2023 12:08-0500 SaO2% (BldA) [Mass fraction] 100 % MD Filiberto Ying Work Phone: [facility] 04-05-2023 12:08-0500 Systolic blood pressure 110 mm[Hg] MD Filiberto Ying Work Phone: [facility] 01-12-2023 09:35-0400 Body height 157.5 cm Maria Del Carmen oBrges DIRECTOR MICROBIOLOGY.SPORTS TEACHER Work Phone: [facility] 01-12-2023 09:35-0400 Body weight 70.31 kg Maria Del Carmen Bernarda DIRECTOR MICROBIOLOGY.SPORTS TEACHER Work Phone: [facility] 01-12-2023 09:35-0400 Diastolic blood pressure 69 mm[Hg] Maria Del Carmen Bernarda DIRECTOR MICROBIOLOGY.SPORTS TEACHER Work Phone: [facility] 01-12-2023 09:35-0400 Heart rate 110 /min Maria Del Carmen Bernarda DIRECTOR MICROBIOLOGY.SPORTS TEACHER Work Phone: [facility] 01-12-2023 09:35-0400 SaO2% (BldA) [Mass fraction] 93 % Maria Del Carmen Borges DIRECTOR MICROBIOLOGY.SPORTS TEACHER Work Phone: [facility] 01-12-2023 09:35-0400 Systolic blood pressure 110 mm[Hg] Maria Del Carmen Borges DIRECTOR MICROBIOLOGY.SPORTS TEACHER Work Phone: [facility] 10-23-2022 14:14-0400 Diastolic blood pressure 66 mm[Hg] MD Filiberto Ying Work Phone: [facility] 10-23-2022 14:14-0400 Heart rate 100 /min MD Filiberto Ying Work Phone: [facility] 10-23-2022 14:14-0400 Systolic blood pressure 113 mm[Hg] MD Filiberto Ying Work Phone: [facility] 10-23-2022 13:50-0400 SaO2% (BldA) [Mass fraction] 99 % MD Filiberto Ying Work Phone: [facility] 09-20-2022 10:01-0400 Diastolic blood pressure 88 mm[Hg] Filiberto M Hoy Work Phone: [facility] [address] DO Work Phone: 09-20-2022 10:01-0400 Diastolic blood pressure 84 mm[Hg] Filiberto M Hoy Work Phone: [facility] [address] DO Work Phone: 09-20-2022 10:01-0400 Diastolic blood pressure 86 mm[Hg] Filiberto M Hoy Work Phone: [facility] [address] DO Work Phone: 09-20-2022 10:01-0400 Systolic blood pressure 120 mm[Hg] Filiberto M Hoy Work Phone: [facility] [address] DO Work Phone: 09-20-2022 10:01-0400 Systolic blood pressure 122 mm[Hg] Filiberto Zoe Hoy Work Phone: [facility] [address] DO Work Phone: 09-20-2022 09:59-0400 Body height 157.48 cm Filiberto M Hoy Work Phone: [facility] [address] DO Work Phone: 09-20-2022 09:59-0400 Body mass index (BMI) [Ratio] 30.36 kg/m2 Filiberto Zoe Hoy Work Phone: [facility] [address] DO Work Phone: 09-20-2022 09:59-0400 Body surface area Derived from formula 1.77 m2 Filiberto M Hoy Work Phone: [facility] [address] DO Work Phone: 09-20-2022 09:59-0400 Body weight 75.3 kg Filiberto Zoe Hoy Work Phone: [facility] [address] DO Work Phone: 09-20-2022 09:59-0400 Diastolic blood pressure 88 mm[Hg] Filiberto M Hoy Work Phone: [facility] [address] DO Work Phone: 09-20-2022 09:59-0400 Heart rate 85 /min Filiberto Zoe Hoy Work Phone: [facility] [facility] DO Work Phone: 09-20-2022 09:59-0400 Systolic blood pressure 120 mm[Hg] Filiberto M Hoy Work Phone: [facility] [address] DO Work Phone: 07-28-2022 13:01-0500 Body height 157.5 cm Nayely Limon APRN.SPORTS TEACHER Work Phone: [facility] 07-28-2022 13:01-0500 Body temperature 97.81 [degF] Oliviata Braxton DIRECTOR MICROBIOLOGY.SPORTS TEACHER Work Phone: [facility] 07-28-2022 13:01-0500 Body weight 79.11 kg Nayely Limon DIRECTOR MICROBIOLOGY.SPORTS TEACHER Work Phone: [facility] 07-28-2022 13:01-0500 Diastolic blood pressure 59 mm[Hg] Oliviata Braxton DIRECTOR MICROBIOLOGY.SPORTS TEACHER Work Phone: [facility] 07-28-2022 13:01-0500 Heart rate 85 /min Nayely Limon DIRECTOR MICROBIOLOGY.SPORTS TEACHER Work Phone: [facility] 07-28-2022 13:01-0500 Systolic blood pressure 117 mm[Hg] Nayely Limon DIRECTOR MICROBIOLOGY.SPORTS TEACHER Work Phone: [facility] Encounters Encounter Date Encounter Type Care Provider Facility Start: 07-30-2024 End: 07-30-2024 Patient encounter procedure Harman Sullivan MD Work Phone: Neurology Comment on above: Chronic migraine wit hout aura, with intractable migraine, so stated, with status migrainosus (Primary Dx); Neck pain Start: 07-17-2024 End: 07-17-2024 ambulatory Harman Sullivan MD Work Phone: Neurology Comment on above: Sooner appt Start: 06-23-2024 End: 06-23-2024 Postop follow up visit related to original px Dano Pyle DO Work Phone: [facility] Comment on above: Fibroadenoma of [address], right (Primary Dx) Start: 06-23-2024 End: 06-23-2024 ambulatory DANO PYLE Not Available Start: 06-19-2024 End: 06-19-2024 Emergency department patient visit Filiberto Ying MD Work Phone: [facility] Work Phone: Start: 06-17-2024 End: 06-17-2024 Admission to same day surgery center Filiberto Ying MD Work Phone: [facility] [place] Start: 06-17-2024 End: 06-17-2024 ambulatory Filiberto Ying MD Work Phone: [facility] Work Phone: Start: 06-10-2024 End: 06-10-2024 Departed Referred Fliiberto Ying MD Work Phone: [facility] Work Phone: Start: 06-10-2024 End: 06-10-2024 Patient encounter procedure Filiberto Ying MD Work Phone: [facility] Work Phone: Start: 06-10-2024 End: 06-10-2024 ambulatory Filiberto Ying MD Work Phone: [facility] Work Phone: Start: 02-18-2024 End: 02-18-2024 ambulatory Reuben Bauman MD Facility:[facility] Start: 01-30-2024 End: 01-30-2024 ambulatory HARMAN SULLIVAN Facility:[facility] Start: 01-30-2024 End: 01-30-2024 Patient encounter procedure Harman Sullivan MD Work Phone: Neurology Comment on above: Chronic migraine wit hout aura, with intractable migraine, so stated, with status migrainosus (Primary Dx); Neck pain Start: 01-28-2024 End: 01-28-2024 Patient encounter procedure MD Filiberto Ying Work Phone: [facility] Start: 01-28-2024 End: 01-28-2024 ambulatory MD Filiberto Ying Work Phone: [facility] Work Phone: Start: 11-09-2023 ambulatory [facility] Neurology Comment on above: Paperwork Start: 11-09-2023 E-mail encounter fro m caregiver [facility] Neurology Start: 10-31-2023 Telephone encounter Harman fraser MD Work Phone: Neurology Comment on above: Appointment Start: 10-31-2023 End: 10-31-2023 ambulatory HARMAN SULLIVAN Facility:[facility] Start: 10-31-2023 End: 10-31-2023 Patient encounter procedure Harman Sullivan MD Work Phone: Neurology Comment on above: Chronic migraine wit hout aura, with intractable migraine, so stated, with status migrainosus (Primary Dx); Neck pain Start: 10-18-2023 Get Medical Advice Maria Del Carmen caraballo DIRECTOR MICROBIOLOGY.SPORTS TEACHER Work Phone: Neurology Comment on above: Med refill Refill Request Start: 10-11-2023 Telephone encounter Harman fraser MD Work Phone: Neurology Comment on above: Insurance Authorizat ion (Botox) Start: 10-03-2023 ambulatory Maria Del Carmen Giles PRN.SPORTS TEACHER Work Phone: Neurology Comment on above: Fmla Start: 09-21-2023 Telephone encounter Harman fraser MD Work Phone: Neurology Comment on above: Request Outside [facility] Records Start: 09-21-2023 End: 09-21-2023 ambulatory HARMAN SULLIVAN Facility:[facility] Start: 09-21-2023 End: 09-21-2023 Patient encounter procedure Harman Sullivan MD Work Phone: Neurology Comment on above: Chronic migraine wit hout aura, with intractable migraine, so stated, with status migrainosus (Primary Dx); Neck pain; RLS (restless legs syndrome) Start: 09-15-2023 Refill Maria Del Carmen PAREKHN.SPORTS TEACHER Work Phone: Neurology Comment on above: Refill Request Start: 09-04-2023 End: 09-04-2023 ambulatory Maria Del Carmen Borges APRN.SPORTS TEACHER Work Phone: Neurology Comment on above: Cervical dystonia (P rimary Dx) Start: 09-04-2023 End: 09-04-2023 Telemedicine consultation with patient Maria Del Carmen Bernarda DIRECTOR MICROBIOLOGY.SPORTS TEACHER Work Phone: [facility] Start: 09-03-2023 E-mail encounter fro m caregiver Maria Del Carmen Borges DIRECTOR MICROBIOLOGY.SPORTS TEACHER Work Phone: Neurology Start: 09-03-2023 Patient encounter procedure Maria Del Carmen Borges DIRECTOR MICROBIOLOGY.SPORTS TEACHER Work Phone: Neurology Comment on above: appointment Start: 07-30-2023 End: 07-30-2023 ambulatory VALERIO VELEZ Not Available Start: 05-15-2023 End: 05-15-2023 Admission to same day surgery center MD Filiberto Ying Work Phone: [facility] [place] Start: 05-15-2023 End: 05-15-2023 ambulatory MD Filiberto Ying Work Phone: [facility] Work Phone: Start: 05-01-2023 End: 05-01-2023 ambulatory MD Filiberto Ying Work Phone: [facility] Work Phone: Start: 05-01-2023 End: 05-01-2023 Patient encounter procedure MD Filiberto Ying Work Phone: [facility] Work Phone: Start: 04-05-2023 End: 04-05-2023 Admission to same day surgery center MD Filiberto Ying Work Phone: [facility] Start: 04-05-2023 End: 04-05-2023 ambulatory MD Filiberto Ying Work Phone: [facility] Work Phone: Start: 02-19-2023 Telephone encounter Maria Del Carmen Tucker on DIRECTOR MICROBIOLOGY.SPORTS TEACHER Work Phone: Neurology Comment on above: Results ([facility] ) Start: 02-09-2023 Telephone encounter Maria Del Carmen Tucker on DIRECTOR MICROBIOLOGY.SPORTS TEACHER Work Phone: Neurology Comment on above: Results ([facility] ) Start: 02-07-2023 End: 02-07-2023 ambulatory MD Filiberto Ying Work Phone: [facility] Work Phone: Start: 02-07-2023 End: 02-07-2023 Patient encounter procedure MD Filiberto Ying Work Phone: [facility] [place] Work Phone: Start: 01-19-2023 Orders Only Maria Del Carmen Giles PRN.SPORTS TEACHER Work Phone: Neurology Start: 01-17-2023 ambulatory Maria Del Carmen Giles PRN.SPORTS TEACHER Work Phone: Neurology Comment on above: Labs and rx Start: 01-12-2023 End: 01-12-2023 Patient encounter procedure Maria Del Carmen Borges DIRECTOR MICROBIOLOGY.SPORTS TEACHER Work Phone: Neurology Comment on above: Cervical dystonia (P rimary Dx); Neck tightness; RLS (restless legs syndrome) Start: 01-08-2023 Chart Update Filiberto Ying Work Phone: [facility] [address] DO Work Phone: Start: 12-28-[address] Soraya Ford acility:[id number] Start: 11-14-2022 ambulatory Soraya Arcos Facility:1 [id number] Start: 11-10-2022 FUV, Provider: Saeed Castellanos, Status: Pen, Time: 8:50 AM Filiberto Ying Work Phone: [facility] Work Phone: Start: 11-10-[address] Saeed aCstellanos Facility: Start: 11-02-[address] S[facility] [facility]a [facility] Facility: Start: 11-02-[address] Saeed Castellanos Facility: Start: 10-23-2022 End: 10-23-2022 ambulatory MD Filiberto Ying Work Phone: [facility] Work Phone: Start: 10-23-2022 End: 10-23-2022 Patient encounter procedure MD Filiberto Ying Work Phone: [facility] Work Phone: Start: 10-23-2022 ambulatory Romero Swenson lity:[id number] Start: 10-12-2022 End: 10-12-2022 Patient encounter procedure MD Filiberto Ying Work Phone: [facility] Work Phone: Start: 10-06-[address] FILIBERTO YING . Facili ty:H1 Start: 09-29-2022 EVENT EMORY, Provider : MOOKIE YOUNG PLUMBING DRAFTER 1,[id number], Status: Pen, Time: 1:00 PM Filiberto Ying Work Phone: [facility] 250 DO Work Phone: Start: 09-29-2022 Patient encounter procedure Filiberto Ying Work Phone: [facility] 250 DO Work Phone: Start: 09-29-[address] Saeed Castellanos Facility: Start: 09-20-2022 Office consultation new/estab patient 60 min Filiberto Ying Work Phone: [facility] 250 DO Work Phone: Start: 09-20-[address] Saeed Castellanos Facility: Start: 08-11-2022 End: 08-11-2022 ambulatory Nayely Limon LONNY.SPORTS TEACHER Work Phone: Rheumatology Comment on above: Neck pain, chronic ( Primary Dx); Fibromyalgia Start: 08-11-2022 End: 08-11-2022 Telemedicine consultation with patient Nayely Limon APRN.SPORTS TEACHER Work Phone: [facility] Start: 07-28-2022 End: 07-28-2022 Subsequent hospital [...] encounter procedure MD Filiberto Ying Work Phone: [facility] [place] Start: 01-09-2022 End: 01-09-[address] FABY RAYMOND . Facility:[facility]1 Start: 01-03-2022 Encounter for genera l adult medical examination without abnormal findings DR FILIBERTO YING . [facility] Start: 12-31-2021 End: 01-01-2022 ambulatory DR FILIBERTO YING . Facility:[facility] Start: 12-31-2021 End: 01-01-2022 Encounter for general adult medical examination without abnormal findings DR FILIBERTO YING . Facility:[facility] Start: 11-18-2021 End: 11-18-2021 Patient encounter procedure MD Filiberto Ying Work Phone: [facility] [place] Procedures Date Procedure Procedure Detail Performing Clinician Start: 06-17-2024 Lumpectomy of right breast Filiberto Ying MD Work Phone: Start: 01-28-2024 Ultrasonography of right breast MD [...] Phone: Start: 12-28-2022 Echocardiography Dougla s Zoe Franty Work Phone: Start: 10-12-2022 Bilateral mammography M Krishna Ying Work Phone: Start: 10-12-2022 Ultrasonography of b ilateral breasts MD Filiberto Ying Work Phone: Start: 07-28-2022 Radex spine cervical 4 or 5 views Somjita Braxton DIRECTOR MICROBIOLOGY.SPORTS TEACHER Work Phone: Start: 07-28-2022 Radiologic exam chest 2 views Somjita Braxton DIRECTOR MICROBIOLOGY.SPORTS TEACHER Work Phone: Start: 11-18-2021 MRI of head MD Filiberto Ying Work Phone: Cholecystectomy Filiberto M Ho y Work Phone: Esophagogastroduodenoscopy D ouglas M Stepan Work Phone: Hysterectomy Filiberto M Hoy Work Phone: Laparoscopy Filiberto M Hoy Work Phone: Tonsillectomy and adenoidectomy Filiberto M Hoy Work Phone: NEGATED: Highlighted row has not occurred! Total colonoscopy Filiberto M Hoy Work Phone: Plan of Treatment Date Care Activity Detail Author Start: 01-03-2030 Urine microalbumin profile [facility] Start: 02-06-2025 End: 02-06-2025 Patient encounter procedure 02/06/2025 3:00 PM EDT Office Visit Neurology [address] [place] [address] Harman Sullivan MD [address] [place] [id number] botox Neurology Comment on above: botox Start: 10-29-2024 End: 10-29-2024 Patient encounter procedure 10/29/2024 4:30 PM EDT Office Visit Neurology [address] [place] [phone] Harman Sullivan MD [address] [place], [place] [id number] F/u hold for botox Neurology Comment on above: F/u hold for botox Start: 07-30-2024 End: 07-30-2024 Patient encounter procedure 07/30/2024 4:30 PM EDT Office Visit Neurology [address] [place] [address] Harman Sullivan MD [address] [place], [place] [id number] Botox Neurology Comment on above: Botox Start: 07-29-2024 End: 07-29-2024 Patient encounter procedure 07/29/2024 8:35 AM EDT Office Visit [facility] [address] [place] [id number] Valerio Velez, DIRECTOR MICROBIOLOGY-SPORTS TEACHER [address] [place] [address] [facility] Start: 06-17-2024 End: 06-17-2024 [facility] Start: 04-30-2024 End: 04-30-2024 Patient encounter procedure 04/30/2024 8:30 AM EST Office Visit Neurology [address] [place] [address] Harman Sullivan MD [address] [place], [place] [phone] Botox Neurology Comment on above: Botox Start: 01-30-2024 End: 01-30-2024 Patient encounter procedure 01/30/2024 2:00 PM EDT Office Visit Neurology [address] [place] [address] Harman Sullivan MD [address] [place], [place] [id number] Botox Neurology Comment on above: Botox Start: 01-20-2024 Covid-19 Vaccine () Covid-19 Vaccine () [facility] Start: 01-20-2024 Covid-19 Vaccine () Covid-19 Vaccine () [facility] Start: 01-20-2024 Influenza vaccination [facility] Start: 11-06-2023 End: 11-06-2023 Patient encounter procedure 11/06/2023 10:30 AM EDT Office Visit Neurology [address] [phone] Harman Sullivan MD [address] [place] [address] [place], [place] [phone] Three week follow up Neurology Comment on above: Three week follow up Start: 10-31-2023 End: 10-31-2023 Patient encounter procedure 10/31/2023 10:30 AM EDT Office Visit Neurology [address] [place] [address] Harman Sullivan MD [address] [place] [address] [place], [place] [phone] Botox auth approved Neurology Comment on above: Botox auth approved Start: 09-21-2023 End: 09-21-2023 Patient encounter procedure 09/21/2023 8:30 AM EDT Office Visit Neurology [address] [place] [address] Harman Sullivan MD [address] [place] [address] [place], [place] [phone] Cervical dystonia [G24.3] Neurology Comment on above: Cervical dystonia [G 24.3] Start: 05-21-2023 Behavioral Health Screening Behavioral Health Screening [facility] Start: 05-15-2023 [facility] Start: 05-15-2023 [facility] Start: 04-05-2023 [facility] Start: 03-16-2023 FUV, Provider: Soraya Arcos, Status: Pen, Time: 1:00 PM FUV, Provider: Soraya Arcos, Status: Pen, Time: 1:00 PM [facility] 320 DO Work Phone: Start: 01-19-2023 Covid-19 Vaccine () Covid-19 Vaccine () [facility] Start: 01-19-2023 Influenza vaccination [facility] Start: 01-12-2023 End: 03-14-2023 CBC panel - Blood by Automated count CBC Lab Routine RLS (restless legs syndrome) Expected: 01/12/2023, Expires: 03/14/2023 [facility] Work Phone: Comment on above: Expected: 01/12/2023 , Expires: 03/14/2023 Start: 01-12-2023 End: 03-14-2023 Cobalamin (Vitamin B12) [Mass/volume] in Serum or Plasma VITAMIN B12 BLOOD Lab Routine RLS (restless legs syndrome) Expected: 01/12/2023, Expires: 03/14/2023 [facility] Work Phone: Comment on above: Expected: 01/12/2023 , Expires: 03/14/2023 Start: 01-12-2023 End: 03-14-2023 Comprehensive metabolic 2000 panel - Serum or Plasma COMP METABOLIC PANEL Lab Routine RLS (restless legs syndrome) Expected: 01/12/2023, Expires: 03/14/2023 [facility] Work Phone: Comment on above: Expected: 01/12/2023 , Expires: 03/14/2023 Start: 01-12-2023 End: 03-14-2023 Ferritin [Mass/volume] in Serum or Plasma FERRITIN BLD Lab Routine RLS (restless legs syndrome) Expected: 01/12/2023, Expires: 03/14/2023 [facility] Work Phone: Comment on above: Expected: 01/12/2023 , Expires: 03/14/2023 Start: 01-12-2023 End: 03-14-2023 Iron and Iron binding capacity panel - Serum or Plasma IRON + TIBC Lab Routine RLS (restless legs syndrome) Expected: 01/12/2023, Expires: 03/14/2023 [facility] Work Phone: Comment on above: Expected: 01/12/2023 , Expires: 03/14/2023 Start: 11-14-2022 NPVRFRL, Provider: Soraya Arcos, Status: Pen, Time: 4:20 PM NPVRFRL, Provider: Soraya Arcos, Status: Pen, Time: 4:20 PM [facility] Work Phone: Start: 11-10-2022 FUV, Provider: Saeed Castellanos, Status: Pen, Time: 8:50 AM FUV, Provider: Saeed Castellanos, Status: Pen, Time: 8:50 AM -[facility]-[place] 250 DO Work Phone: Start: 10-23-2022 SURGNONUH, Provider: Romero Jones, Status: Pen, Time: 2:00 PM SURGNONUH, Provider: Romero Jones, Status: Pen, Time: 2:00 PM [facility] 250 DO Work Phone: Start: 09-29-2022 EVENT EMORY, Provider : MOOKIE YOUNG PLUMBING DRAFTER 1,[id number], Status: Pen, Time: 1:00 PM EVENT [facility]ORY, Provider: MOOKIE YOUNG PLUMBING DRAFTER 1,[id number], Status: Pen, Time: 1:00 PM -[facility] 250 DO Work Phone: Start: 05-21-2022 DEPRESSION ASSESSMENT DEPRESSION ASS ESSMENT [facility] Start: 01-19-2022 Influenza vaccination INFLUENZA (#1) [facility] Start: 2017 HPV TESTING HPV TESTING [facility] Start: 2017 Screening for malign ant neoplasm of cervix HPV Testing [facility] Start: 01-07-2008 PAP TESTING PAP TESTING [facility] Start: 01-07-2008 Screening for malign ant neoplasm of cervix [facility] Start: 2006 Hepatitis B Vaccine (1 of 3 - 19+ 3-dose series) Hepatitis B Vaccine (1 of 3 - 19+ 3-dose series) [facility] Start: 2005 Anxiety Screening Anxiety Screening [facility] Start: 2005 Depression Screening Depression Scre ening [facility] Start: 2005 HEPATITIS C SCREENING HEPATITIS C [facility] Start: 2005 Hepatitis C screening Hepatitis C [facility] Start: 2005 HIV SCREENING HIV SCREENING [facility] Start: 2005 HIV screening HIV Screening [facility] Start: 1987 COVID-19 VACCINE (#1) COVID-19 VACCI NE (#1) [facility] Start: 1987 HEPATITIS B (1 of 3 - 3-dose series) HEPATITIS B (1 of 3 - 3-dose series) [facility] Start: 1987 Hepatitis B Vaccine (1 of 3 - 3-dose series) Hepatitis B Vaccine (1 of 3 - 3-dose series) [facility] Patient Education [facility] Work Phone: Patient referral [facility] Work Phone: [facility] Immunizations Immunization Date Immunization Notes Care Provider Alina treviño 01-04-2020 tetanus toxoid, redu hawa diphtheria toxoid, and acellular pertussis vaccine, adsorbed Xr A21 [facility] 07-27-2016 tetanus toxoid, redu hawa diphtheria toxoid, and acellular pertussis vaccine, adsorbed Xr A21 [facility] Payers Date Payer Category Payer Managed Care O (unspecified) [employer] [id number] 2022 Private Health Insurance [id number] 2022 Private Health Insurance [id number] 2022 Medicaid [place] [employer] [employer] [id number] 2022-[facility] [phone] [address] [place] [address] Medicaid [id number] 1987 Unknown [id number] 2.16840.1.898035.3.579. 2.593 1987 Unknown [id number] 2.16.840.1.157477.3.579. 2.593 1987 Unknown [id number] 2.16840.1.263386.3.579. 2.59 1987 Unknown [id number] 2.16.840.1.426452.3.579. 2.593 1987 Unknown [id number] 2.16.840.1.032646.3.579. 2.593 1987 Unknown [id number] 2.16840.1.476377.3.579. 2.593 1987 Unknown [id number] 2.16.840.1.048614.3.579. 2.593 1987 Unknown [id number] 2.16.840.1.920878.3.579. 2.593 1987 Unknown [id number] 2.16.840.1.924322.3.579. 2.593 1987 Unknown [id number] 2.16.840.1.968640.3.579. 2.1068 1987 Unknown [id number] 2.16.840.1.840087.3.579. 2.356 1987 Unknown [id number] 2.16.840.1.103620.3.579. 2.356 1987 Unknown [id number] 2.16.840.1.771934.3.579. 2.356 1987 Unknown [id number] 2.16.840.1.863991.3.579. 2.356 1987 Unknown [id number] 2.16.840.1.695628.3.579. 2.356 1987 Unknown [id number] 2.16.840.1.279891.3.579. 2.356 1987 Unknown [id number] 2.16.840.1.512336.3.579. 2.356 1987 Unknown [id number] 2.16.840.1.040294.3.579. 2.196 1987 Unknown [id number] 2.16.840.1.060130.3.579. 2.1259 1987 Unknown [id number] 2.16.840.1.071553.3.579. 2.1259 1959 Medicaid [id number] Medicaid [place] Advantage [id number] Self-pay Self Pay [id number] Unknown [place] BC/BS [id number] Unknown [id number] Unknown HCAP/HFA/FAP Active [id number] Social History Date Type Detail Facility Start: 06-13-2012 End: 12-24-2020 Tobacco smoking status NHIS Never smoked tobacco (finding) [facility] Start: 1985 Sex Assigned At Female F [facility] Start: 06-13-2012 End: 02-06-2023 Tobacco use and exposure Smokeless tobacco non-user [facility] Work Phone: Start: 07-28-2022 End: 01-30-2024 Alcohol intake Current non-drinker of alcohol (finding) [facility] Start: 01-12-2023 End: 01-30-2024 No caffeine use No caffeine use [facility] Start: 01-12-2023 End: 01-30-2024 Tobacco use panel [facility] Adult Depression Screening Assessment 2 [facility] Start: 07-28-2022 Gender identity Identifies as female gender (finding) [facility] Start: 07-28-2022 Sexual orientation Heterosexual (fin ding) [facility] Start: 06-11-2024 End: 06-19-2024 Sex Female (finding) [facility] Start: 06-23-2024 Alcoholic beverage intake Lifetime non-drinker (finding) [facility] Start: 01-08-2023 Alcohol Comment Caffeine: none [facility] Start: 1987 Sex assigned at Not on file [facility] NEGATED: Highlighted row [facility] Goals Date Patient Goal Desired Activity /State Clinical Notes 02-16-2022 to 07-30-2024 Harman Sullivan MD - 07/30/2024 4:22 PM YISELTFkemi Pyle DO - 06/23/2024 1:15 PM Harman Johansen MD - 01/30/2024 1:49 PM EDTTelephone Encounter - Harman Sullivan MD - 11/01/2023 9:17 AM EDT Note Date & Type Note Facility 07-30-2024 History of Presen t illness Narrative BOTOX PREEMPT PROTOCOL Total headache days per month: When working well gets one a month, since worn off has Severity of headaches: Severe Botox effective: YES The risks, benefits and anticipated outcomes of the procedure, the risks and benefits of the alternatives to the procedure, and the roles and tasks of the personnel to be involved, were discussed with the patient. The patient has given written informed consent to the procedure and agrees to proceed. Yes Treatment # 3 with me, 10+ in past BOTOX brought in by patient? No Lot #: [id number] Exp: 09/2026 Dilution: 5 units/0.1 ml (100 unit vial [...] Optional follow pain # units L R Head [employer] 10 units divided in 2 sites XXXXXXX [...] Total Units wasted: 0 Patient did tolerate procedure with some discomfort. Change in Treatment Plan? No Harman Sullivan MD documented in this encounter [facility] 06-23-2024 History of Presen t illness Narrative Images from the original note were not included. Brittanie Garcia is a 39 y.o. female presents for 1st po Exc. bilateral breast masses HPI: JOSEPH Gu is post op from right breast excision of two fibroadenoma's. She had post-op issue with nausea and was seen in the ER. She still has tenderness in the right breast from surgery. OBJECTIVE: Physical Exam Right breast incisions are haling nicely, no ecchymosis or erythema. ASSESSMENT AND PLAN: Assessment/Plan Problem List Items Addressed This Visit Fibroadenoma of breast, right - Primary I reviewed the path that confirmed benign fibroadenoma's with an incidental finding of a tiny focus (<1 mm) of ADH in both specimens. I consulted the [facility] physician forum concerning the possibility of Tamoxifen and the response was that ADH confined to a fibroadenoma does not pose the same risk as ADH in a breast mass and no treatment is necessary. I'll see her PRN documented in this encounter [facility] 01-30-2024 Note HNO ID: [id number] Author: HARMAN SULLIVAN MD Service: ? Author [...] brought in by patient? No Lot #: [id number] Exp: 03/2026 Dilution: 5 units/0.1 ml (100 [...] Optional follow pain # units L R [employer] 10 units divided in 2 sites XXXXXXX [...] in Treatment Plan? No Harman Sullivan MD [facility] 01-30-2024 History of Presen t illness Narrative BOTOX PREEMPT PROTOCOL Total headache days per month: Slight ACOTSA daily, around once a month gets a [...] brought in by patient? No Lot #: [id number] Exp: 03/2026 Dilution: 5 units/0.1 ml (100 [...] Optional follow pain # units L R [employer] 10 units divided in 2 sites XXXXXXX [...] Harman Sullivan MD documented in this encounter [facility] 11-01-2023 Telephone encounter Note We may need to start reserving some slots for Botox if I'm booking out more than 3 months. Is that something escalating to admin can accomplish? Maybe having like 3 follow up slots a week for botox that revert to regular if not booked a few weeks before that date. [facility] 11-01-2023 Miscellaneous Notes We may need [...] 29 and after. documented in this encounter [facility] 10-31-2023 Note HNO ID: [id number] Author: HARMAN SULLIVAN MD Service: ? Author [...] BOTOX brought in by patient? No Lot #:[id number] Exp: 10/2025 Dilution: 5 units/0.1 ml (100 [...] Optional follow pain # units L R [employer] 10 units divided in 2 sites XXXXXXX [...] in Treatment Plan? No Harman Sullivan MD [facility] 10-31-2023 History of Presen t [...] BOTOX brought in by patient? No Lot #:[id number] Exp: 10/2025 Dilution: 5 units/0.1 ml (100 [...] Optional follow pain # units L R [employer] 10 units divided in 2 sites XXXXXXX [...] Harman Sullivan MD documented in this encounter [facility] 10-31-2023 Telephone encounter Note Placed at desk for review. [facility] 10-31-2023 Miscellaneous Notes Placed at desk for review. Patient brought in [facility] paperwork for Dr. Sullivan to fill out. Forms placed in providers mailbox. documented in this encounter [facility] 10-31-2023 Telephone encounter Note Patient needs a botox appointment slot opened anytime January 29 and after. [facility] 10-31-2023 Telephone encounter Note Patient brought in [facility] paperwork for Dr. Sullivan to fill out. Forms placed in providers mailbox. [facility] 10-19-2023 Telephone encounter Note Per Epic referral, Botox is approved. 10/16/23 to 10/14/24 200 units every 12 weeks Called patient, and she is agreeable to using the SunOctober 30 slot to get her Botox in [place]. Per Dr. Sullivan, she does not need to then also keep her November 05 appt. [facility] 10-19-2023 Miscellaneous Notes Per Epic referral, Botox is approved. 10/16/23 to 10/14/24 200 units every 12 weeks Called patient, and she is agreeable to using the SunOctober 30 slot to get her Botox in [place]. Per Dr. Sullivan, she does not need to then also keep her November 05 appt. Prior Authorization PENDING Medication/ Treatment: BOTOX Submitted Via Epic Referral Attempted to submit via phone to expedite request, but plan does not allow this. documented in this encounter [facility] 10-18-2023 Miscellaneous Notes Images from the original note were not included. Maria Del Carmen Borges, LONNY.SPORTS TEACHER You6 minutes ago (8:35 AM) I can for this time, but Dr. Hernandez moving forward as he is managing her neck tightness. PRATIBHA Mccullough, RN, BA documented in this encounter [facility] 10-18-2023 Telephone encounter Note Images from the original note were not included. Maria Del Carmen Borges APRN.ZULMA You6 minutes ago (8:35 AM) I can for this time, but Dr. Hernandez moving forward as he is managing her neck tightness. PRATIBHA Mccullough, RN, BA [facility] Work Phone: 10-11-2023 Telephone encounter Note Prior Authorization PENDING Medication/ Treatment: BOTOX Submitted Via Epic Referral Attempted to submit via phone to expedite request, but plan does not allow this. [facility] 10-03-2023 Telephone encounter Note Images from the original note were not included. Maria Del Carmen Borges APRN.SPORTS TEACHER You6 minutes ago (3:03 PM) As she is now working with movement disorder for this concern, I would defer this to their team. PRATIBHA Mccullough, RN, BA [facility] Work Phone: 10-03-2023 Miscellaneous Notes Images from the original note were not included. Maria Del Carmen Borges APRN.ZULMA You6 minutes ago (3:03 PM) As she is now working with movement disorder for this concern, I would defer this to their team. PRATIBHA Mccullough, RN, BA documented in this encounter [facility] 09-21-2023 Instructions Harman Sullivan MD - [...] can increase further documented in this encounter [facility] 09-21-2023 Telephone encounter Note Requested image transfer from [facility] for most recent head/ neck imaging. [facility] 09-21-2023 Note HNO ID: [id number] Author: HARMAN SULLIVAN MD Service: ? 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 [facility] 09-21-2023 History of Presen t [...] referral records from Maria Del Carmen Borges [facility] Assessment/Plan Assessment & Plan: Brittanie Garcia is a 38 year old right-handed female with a history of chronic migraine, neck pain previously diagnosed as cervical dystonia, and RLS who presents to [facility]. Her examination demonstrates normal [...] next month for Botox. Harman Sullivan MD [facility] Neurology documented in this encounter [facility] 09-21-2023 Miscellaneous Notes Requested image transfer from [facility] for most recent head/ neck imaging. documented in this encounter [facility] 09-13-2023 Telephone encounter Note Images from the original note were not included. Maria Del Carmen Borges APRN.ZULMA Bailey 58 minutes ago (1:58 PM) Keep the appointment until she sees Dr. Sullivan on September 20. PRATIBHA Mccullough, RN, BA [facility] Work Phone: 09-13-2023 Miscellaneous Notes Images from the original note were not included. Maria Del Carmen Borges APRN.ZULMA Bailey 58 minutes ago (1:58 PM) Keep the appointment until she sees Dr. Sullivan on September 20. PRATIBHA Mccullough, RN, BA documented in this encounter [facility] 09-04-2023 History of Presen t illness Narrative Brittanie Garcia is a 38 year old female. Patient presents with: Follow Up Today I had the opportunity to have a virtual visit with Brittanie Garcia I have communicated my name and active licensure. The patient's identity and physical location were verified at the time of this visit. Either the patient or their legal inbound customer service representative has been informed of the risks [...] seeing the movement disorder clinic here at [facility] for an opinion about her cervical [...] which included preparing to see the patient, [id number] patient care, completing clinical documentation, obtaining and/or reviewing separately obtained history, and counseling and educating the patient/family/caregiver. There is no problem list on file for this patient. No orders found for this visit on 09/04/23. Maria Del Carmen Borges MSN, DIRECTOR MICROBIOLOGY, DIRECTOR BIOMEDICAL ENGINEERING-C documented in this encounter [facility] 09-04-2023 Note HNO ID: [id number] Author: MARIA DEL CARMEN BORGES APRN.ZULMA Service: [...] visit. Either the patient or their legal inbound customer service representative has been informed of the risks [...] seeing the movement disorder clinic here at [facility] for an opinion about her cervical [...] with her Mari (more content not included)... [facility] 02-19-2023 Miscellaneous Notes Images from the original note were not included. Maria Del Carmen Borges APRN.SPORTS TEACHER You 1 minute ago (12:27 PM) Thank you. This is a normal value. PRATIBHA Louis, RN, BA Images from the original note were not included. Evonne GAMBOA BSN, RN, BA Scanned in medical records from [facility] for review documented in this encounter [facility] 02-09-2023 Miscellaneous Notes Images from the original note were not included. Maria Del Carmen Borges APRN.ZULMA You 2 minutes ago (10:23 AM) Reviewed. PRATIBHA Louis, RN, BA Scanneed in medical records from [facility] for review documented in this encounter [facility] 01-19-2023 Miscellaneous Notes Images from the original note were not included. Maria Del Carmen Borges APRN.SPORTS TEACHER You 21 minutes ago (8:34 AM) I sent cyclobenzaprine (Flexeril) 5 mg at bedtime as needed PRATIBHA Mccullough, RN, BA documented in this encounter [facility] 01-12-2023 History of Presen t illness [...] Most likely receiving 65 units between procerus, network architect, frontalis, and temporalis muscles. Only receiving [...] Tizanidine Methocarbamol Metaxalone Carisoprodol She does have Lagrange prescribed for the neck pain. 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 Finger extensor 5/5. Finger flexor 5/5. Pronation [...] clonus of ankles. Coordination: Finger-to- nose-finger and nvyi-qa-rktr intact bilaterally. No ataxia of arms. No [...] seeing the movement disorder clinic here at [facility] for an opinion about her cervical [...] which included preparing to see the patient, wuum-tz-afib patient care, completing clinical documentation, obtaining and/or reviewing separately obtained history, performing a medically appropriate examination, counseling and educating the patient/family/caregiver, and ordering medications, tests, or procedures. There is no problem list on file for this patient. Office Visit on 01/12/23 CBC FERRITIN BLD IRON + TIBC VITAMIN B12 BLOOD COMP METABOLIC PANEL CONSULT TO NEUROLOGY Maria Del Carmen Borges MSN, DIRECTOR MICROBIOLOGY, DIRECTOR BIOMEDICAL ENGINEERING-C 1. The nursing staff and medical assistants [...] your PCP/referring physician documented in this encounter [facility] 08-11-2022 Instructions Nayely Limon APRN.CNP - 08/11/2022 10:44 AM EDT Please send MRI result to us. Placed a consult for neuromuscular. Please call [phone] for appointments. I would suggest to bring your MRI (CD) to this appointment. Placed a consult for functional medicine. Please call [phone] for appointments. Follow up as needed documented in this encounter [facility] 08-11-2022 History of Presen t illness Narrative Images from the original note were not included. Rheumatology FOLLOW UP VISIT Date of Service: 08/11/2022 Patient: Brittanie Garcia Medical Record: [id number] Primary Care Physician: Filiberto Ying MD Last Rheumatology visit: 07/28/2022 (with Nayely Limon) I have communicated my name and active licensure. The patient's identity and physical location were verified at the time of this visit. 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 Started Seeing pain management since April for headache and neck pain. She has Lagrange takes once a week. Hx of restless [...] Clinical Fibromyalgia Diagnostic Criteria questionnaire Questionnaire scores: [place] sleepiness scale: 15 (Normal < 10) MDQ (mood disorder questionnaire): 6 (Normal < 7) PHQ (patient health questionnaire): depression 10 (Normal < 5), anxiety 9 (Normal < 5) Fibromyalgia evaluation: Wide spread pain scale (WPI) 7, symptom severity (SS) 9 The patient meets the 2016 ACR ([employer]) revised criteria for fibromyalgia [...] Time: 8:44 AM documented in this encounter [facility] 07-28-2022 Instructions Nayely Limon APRN.CNP - 07/28/2022 1:58 PM EST Obtain lab and XR today Follow up in 10-14 days documented in this encounter [facility] 07-28-2022 History of Presen t illness Narrative Images from the original note were not included. Rheumatology CONSULTATION Date of Service: 07/28/2022 Patient: Brittanie Garcia Medical Record: [id number] Primary Care Physician: Filiberto Ying MD, MD Last Rheumatology visit: 07/28/2022 (with Nayely Limon) Referring Provider: Kenna Sheehan [address] [place] [id number] Brittanie Garcia is here today at request of Kenna Sheehan PA-C specifically for consultation of my opinion in regards to the chief complaint listed below. 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 Started Seeing pain management since April for headache and neck pain. She has Lagrange takes once a week. Hx of restless [...] Take 1 mg by mouth once daily. Pxemhaxs-Mk-Qnk-Fe-FA (P-D CARTER PLUS) Tab Take 1 tablet [...] - XR CHEST 2V FRONTAL/LAT Nayely Limon APRN.SPORTS TEACHER Return in about 10 days (around 08/07/2022). I spent a total of 75 minutes on the date of the service which included preparing to see the patient, [id number]-es-[id number] patient care, completing clinical documentation, obtaining and/or [...] Time: 2:07 PM documented in this encounter [facility] 07-06-2022 Note CONSULTATION CONSULTATION DATE: 07/06/2022 [...] no difference. She was also started on Lagrange 5/325 daily p.r.n., which she says is helpful. We obtained a cervical x-ray back in January, which shows very minimal pathology between C2 and C3 discs. At this time, procedures are not indicated. Medications includes Lagrange 5/325 daily, baclofen 10 mg b.i.d., Ambien [...] time, our clinic will just maintain her Lagrange 5/325 daily p.r.n. She will continue for treatments with [facility]. I did recommend, however, to continue with self massage and to trial home cervical traction. We will see the patient in three months' time to maintain her medications and patient is in agreement. [facility] 04-06-2022 Note CONSULTATION PAIN MANAGEMENT CONSULTATION [...] stated that today she has seen an embossing toolsetter due to having lock jaw episodes. 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 She describes her [...] agrees to this plan. [facility] 03-02-2022 Note CONSULTATION CONSULTATION DATE: 03/02/2022 [...] Activities such as pushing, pulling, lying down, agency appointments supervisor hours and housework aggravate her pain. [...] questions are answered today. [facility] 02-16-2022 Note CONSULTATION CONSULTATION DATE: 02/16/2022 [...] worsened at that time. 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 [facility] Chief complaint Narrative - Reported BRITTANIE [...] she has no rebound tachycardia.Recommendations, obtain Marcio [facility] monitoring, tilt table test, refer to either EP or syncope clinic, I can follow-up on a as needed basis, as there is no interventional necessity at this time [facility] [address] DO Work Phone: Chief [...] has no rebound tachycardia.Recommendations, obtain Marcio of [facility] monitoring, tilt table test, refer to either EP or syncope clinic, I can follow-up on a as needed basis, as there is no interventional necessity at this time [facility] Work Phone: Chief complaint Narrative - [...] is no interventional necessity at this time [facility] [address] DO Work Phone: Chief [...] is no interventional necessity at this time [facility] Work Phone: Evaluation note No assessment inform ation available [facility] Work Phone: Evaluation note Diagnosis Neck pain, chronic Cervicalgia [facility] Neck pain, chronic- Primary Cervicalgia [facility] Diagnosis Neck pain, chronic- Primary Cervicalgia Fibromyalgia Mylagia and myositis, unspecified [facility] Diagnosis Cervical dystonia- Primary Spasmodic torticollis Neck tightness Unspecified musculoskeletal disorders and symptoms referable to neck RLS (restless legs syndrome) Restless legs syndrome (RLS) [facility] Diagnosis Onset Date Resolution Status Left breast mass acute [facility] Work Phone: Evaluation note* Diagnosis Cervical dystonia- Primary Spasmodic torticollis [facility] Diagnosis Chronic migraine without aura, with intractable migraine, so stated, with status migrainosus- Primary Neck pain Cervicalgia RLS (restless legs syndrome) Restless legs syndrome (RLS) [facility] Diagnosis Chronic migraine without aura, with intractable migraine, so stated, with status migrainosus- Primary Neck pain Cervicalgia [facility] Diagnosis Chronic migraine without aura, with intractable migraine, so stated, with status migrainosus- Primary Neck pain Cervicalgia [facility] Diagnosis Fibroadenoma of breast, right- Primary [facility] Diagnosis Chronic migraine without aura, with intractable migraine, so stated, with status migrainosus- Primary Neck pain Cervicalgia [facility] Additional Instructions DISCHARGE INSTRUCTIONS [...] directed for pain unless a prescription was provided.[facility] Work Phone: Hospital Discharge instructions Additional Instructions DISCHARGE INSTRUCTIONS FOR GENERAL SURGERY YOUR ACTIVITY MAY INCLUDE: No restrictions on activities I recommend wearing a bra for support throughout the day. It is not necessary to sleep with it. WOUND CARE/INCISION CARE: The sutures are underneath the skin and will dissolve by themselves. The incisions are covered with surgical glue, there is no need for additional Band-Aids It is safe to get the wounds wet with soap and water in the shower, no hot tubs or tub baths. -Is it common to feel pulling or [...] directed for pain unless a prescription was provided.[facility] Work Phone: Reason for referral (narrative)* Diagnostic Procedure Only (Routine) - Closed Specialty Diagnoses / Procedures Referred By Ross manuel Referred To Contact XR IMAGING Diagnoses Neck pain, chronic Procedures XR CERV OTHER 4V AP/LAT/OBL RADEX SPINE CERVICAL 4 OR 5 VIEWS Nayely Limon APRN.CNP [address] [phone] Xr Imaging Referral ID Status Reason Start Date Expiration Date V isits Requested Visits Authorized [id number] Closed Auto-Generate d Referral 07/28/2022 08/27/2023 1 1 [facility] for referral (narrative)* Diagnostic Procedure Only (Routine) - Closed Specialty Diagnoses / Procedures Referred By Contac t Referred To Contact XR IMAGING Diagnoses Neck pain, chronic Procedures XR CERV OTHER 4V AP/LAT/OBL RADEX SPINE CERVICAL 4 OR 5 VIEWS Nayely Limon APRN.CNP [address] [address] Xr Imaging Referral ID Status Reason Start Date Expiration Date V isits Requested Visits Authorized [id number] Closed Auto-Generate d Referral 07/28/2022 08/27/2023 1 1 [facility] for visit Narrative* Diagnostic Procedure Only (Routine) - Closed Specialty Diagnoses / Procedures Referred By Ross t Referred To Contact XR IMAGING Diagnoses Neck pain, chronic Procedures XR CERV OTHER 4V AP/LAT/OBL RADEX SPINE CERVICAL 4 OR 5 VIEWS Nayely Limon APRN.CNP [address] [phone] Xr Imaging Referral ID Status Reason Start Date Expiration Date V isits Requested Visits Authorized [id number] Closed Auto-Generate d Referral 07/28/2022 08/27/2023 1 1 [facility] Chief Complaint and Reason for Visit [...] Left breast mass Chief Complaint N63.11 N63.14 Chief Complaint Admit Date Right Breast Masses June 10, 2024 1 1:12am Chief Complaint Admit Date Right Breast Masses June 10, 2024 1 1:12am Right Breast Masses June 17, 2024 6 :28am Chief Complaint Admit Date Right Breast Masses June 10, 2024 1 1:12am Right Breast Masses June 17, 2024 6 :28am Neck Spasms June 19, 2024 1 :44pm Advance Directives Advance Directive Response Recorded Date/ Time Advance Directives No August 04 7:56am Advance Directive Response Recorded Date/ Time Advance Directives No March 17th, 2 020 6:56am Reason for Referral Specialty Diagnoses / Procedures Referred By Contac t Referred To Contact Neurology Diagnoses Neck pain, chronic Procedures CONSULT TO NEUROLOGY OFFICE/OUTPATIENT [facility] 60-74 MINUTES Nayely Limon, LONNY.SPORTS TEACHER [address] [phone] Referral ID Status Reason Start Date Expiration Date Visits Requested Visits Authorized [id number] Authorized PCP Requested Referral 08/11/2022 08/11/2023 1 1 Specialty Diagnoses / Procedures Referred By Contac t Referred To Contact Diagnoses Fibromyalgia Procedures CONSULT TO FUNCTIONAL MEDICINE OFFICE/OUTPATIENT [facility] 60-74 MINUTES Nayely Limon, DIRECTOR MICROBIOLOGY.SPORTS TEACHER [address] [phone] Referral ID Status Reason Start Date Expiration Date Visits Requested Visits Authorized [id number] Authorized PCP Requested Referral 08/11/2022 08/11/2023 1 1 Specialty Diagnoses / Procedures Referred By Contac t Referred To Contact Neurology Diagnoses Cervical dystonia Neck tightness Procedures CONSULT TO NEUROLOGY OFFICE/OUTPATIENT [facility] 60-74 MINUTES Maria Del Carmen Borges, DIRECTOR MICROBIOLOGY.SPORTS TEACHER [phone] [phone] Referral ID Status Reason Start Date Expiration Date Visits Requested Visits Authorized [id number] Pending Review PCP Requested Referral 01/12/2023 01/12/2024 1 1 Specialty Diagnoses / Procedures Referred By Contac t Referred To Contact Neurology Diagnoses Cervical dystonia Procedures CONSULT TO NEUROLOGY OFFICE/OUTPATIENT [facility] 60 MINUTES Maria Del Carmen Borges, DIRECTOR MICROBIOLOGY.SPORTS TEACHER [phone] [place] [phone] Referral ID Status Reason Start Date Expiration Date Visits Requested Visits Authorized [id number] Authorized PCP Requested Referral 09/04/2023 09/03/2024 1 1 Summary Purpose Family History Relationship Condition Age at Onset Recorded Date/T claudette Not Specified No pertinent family history Unknown father History of deep venous thrombosis Unknown Unknown Family Member Name Dates Details Family [...] Active Kenna Sheehan PA-C Attending Provider Active Provider Relations Manager Relationship Specialty Start Date End Date Filiberto Ying MD PCP - General Family Medicine 06/05/12 Kenna Sheehan PA-C [address] [place] [address] Referring Neurology 07/19/22 Provider Relations Manager Relationship Specialty Start Date End Date Filiberto Ying MD PCP - General Family Medicine 06/05/12 Kenna Sheehan PA-C [address] [address] Referring Neurology 07/19/22 Provider Relations Manager Relationship Specialty Start Date End Date Filiberto Ying MD PCP - General Family Medicine 06/05/12 Kenna Sheehan PA-C [address] [address] Referring Neurology 07/19/22 Provider Relations Manager Relationship Specialty Start Date End Date Filiberto Ying MD PCP - General Family Medicine 06/05/12 Kenna Sheehan PA-C [address] [phone] Referring Neurology 07/19/22 Provider Relations Manager Relationship Specialty Start Date End Date Filiberto Ying MD PCP - General Family Medicine 06/05/12 Kenna Sheehan PA-C [address] [phone] Referring Neurology 07/19/22 Provider Relations Manager Relationship Specialty Start Date End Date Filiberto Ying MD PCP - General Family Medicine 06/05/12 Kenna Sheehan PA-C [address] [phone] Referring Neurology 07/19/22 Provider Relations Manager Relationship Specialty Start Date End Date Filiberto Ying MD PCP - General Family Medicine 06/05/12 Kenna Sheehan PA-C [address] [phone] Referring Neurology 07/19/22 Team Status: Inactive Member Role Status Dates Filiberto Ying MD Primary Care Provider Active Maria Del Carmen Borges APRN DIRECTOR BIOMEDICAL ENGINEERING- Attending Provider Active Provider Relations Manager Relationship Specialty Start Date End Date Filiberto Ying MD PCP - General Family Medicine 06/05/12 Kenna Sheehan PA-C [address] [phone] Referring Neurology 07/19/22 Provider Relations Manager Relationship Specialty Start Date End Date Filiberto Ying MD PCP - General Family Medicine 06/05/12 Kenna Sheehan PA-C [address] [address] Referring Neurology 07/19/22 Provider Relations Manager Relationship Specialty Start Date End Date Filiberto Ying MD PCP - General Family Medicine 06/05/12 Kenna Sheehan PA-C [address] [phone] Referring Neurology 07/19/22 Provider Relations Manager Relationship Specialty Start Date End Date Filiberto Ying MD PCP - General Family Medicine 06/05/12 Kenna Sheehan PA-C [address] [phone] Referring Neurology 07/19/22 Provider Relations Manager Relationship Specialty Start Date End Date Filiberto Ying MD PCP - General Family Medicine 06/05/12 Kenna Sheehan PA-C [address] [address] Referring Neurology 07/19/22 Provider Relations Manager Relationship Specialty Start Date End Date Filiberto Ying MD PCP - General Family Medicine 06/05/12 Kenna Sheehan PA-C [address] [phone] Referring Neurology 07/19/22 Provider Relations Manager Relationship Specialty Start Date End Date Filiberto Ying MD PCP - General Family Medicine 06/05/12 Kenna Sheehan PA-C [address] [place] [phone] Referring Neurology 07/19/22 Team Status: Inactive Member Role Status Jazmine Ying MD Primary Care Provider Active Start: January 28, 2024 End: January 28, 2024 Dano Pyle DO Attending Provider Active Start: January 28, 2024 End: January 28, 2024 Provider Relations Manager Relationship Specialty Start Date End Date Filiberto Ying MD PCP - General Family Medicine 06/05/12 Kenna Sheehan PA-C [address] [place] [address] Referring Neurology 07/19/22 Team Status: Inactive Member Role Status Jazmine Ying MD Primary Care Provider Active Start: June 10, 2024 End: June 10, 2024 Dano Pyle DO Attending Provider Active Start: June 10, 2024 End: June 10, 2024 Team Status: Inactive Member Role Status Jazmine Ying MD Primary Care Provider Active Start: June 17, 2024 End: June 17, 2024 Dano Pyle DO Attending Provider Active Start: June 17, 2024 End: June 17, 2024 Team Status: Inactive Member Role Status Jazmine Ying MD Primary Care Provider Active Start: June 19, 2024 End: June 19, 2024 Babar Singh PA-C Emergency Provider Active Start: June 19, 2024 End: June 19, 2024 Provider Relations Manager Relationship Specialty Start Date End Date Filiberto Ying MD [address] [facility] [place] [address] PCP - General Family Medicine 12/12/22 Provider Relations Manager Relationship Specialty Start Date End Date Filiberto Ying MD PCP - General Family Medicine 06/05/12 Kenna Sheehan PA-C [address] [place] [address] Referring Neurology 07/19/22 Goals (unrecognized section and [...] or prosecute any alcohol or drug abuse patient.[facility] the event this information is protected by the Federal Confidentiality of Alcohol and Drug Abuse Patient Records regulations: The Federal rules restrict any use of the information to criminally investigate or prosecute any alcohol or drug abuse patient.[facility] the event this information is protected by the Federal Confidentiality of Alcohol and Drug Abuse Patient Records regulations: The Federal rules restrict any use of the information to criminally investigate or prosecute any alcohol or drug abuse patient.[facility] the event this information is protected by the Federal Confidentiality of Alcohol and Drug Abuse Patient Records regulations: The Federal rules restrict any use of the information to criminally investigate or prosecute any alcohol or drug abuse patient.[facility] the event this information is protected by the Federal Confidentiality of Alcohol and Drug Abuse Patient Records regulations: The Federal rules restrict any use of the information to criminally investigate or prosecute any alcohol or drug abuse patient.[facility] the event this information is protected by the Federal Confidentiality of Alcohol and Drug Abuse Patient Records regulations: The Federal rules restrict any use of the information to criminally investigate or prosecute any alcohol or drug abuse patient.[facility] the event this information is protected by the Federal Confidentiality of Alcohol and Drug Abuse Patient Records regulations: The Federal rules restrict any use of the information to criminally investigate or prosecute any alcohol or drug abuse patient.[facility] the event this information is protected by the Federal Confidentiality of Alcohol and Drug Abuse Patient Records regulations: The Federal rules restrict any use of the information to criminally investigate or prosecute any alcohol or drug abuse patient.[facility] the event this information is protected by the Federal Confidentiality of Alcohol and Drug Abuse Patient Records regulations: The Federal rules restrict any use of the information to criminally investigate or prosecute any alcohol or drug abuse patient.[facility] the event this information is protected by the Federal Confidentiality of Alcohol and Drug Abuse Patient Records regulations: The Federal rules restrict any use of the information to criminally investigate or prosecute any alcohol or drug abuse patient.[facility] the event this information is protected by the Federal Confidentiality of Alcohol and Drug Abuse Patient Records regulations: The Federal rules restrict any use of the information to criminally investigate or prosecute any alcohol or drug abuse patient.[facility] the event this information is protected by the Federal Confidentiality of Alcohol and Drug Abuse Patient Records regulations: The Federal rules restrict any use of the information to criminally investigate or prosecute any alcohol or drug abuse patient.[facility] the event this information is protected by the Federal Confidentiality of Alcohol and Drug Abuse Patient Records regulations: The Federal rules restrict any use of the information to criminally investigate or prosecute any alcohol or drug abuse patient.[facility] the event this information is protected by the Federal Confidentiality of Alcohol and Drug Abuse Patient Records regulations: The Federal rules restrict any use of the information to criminally investigate or prosecute any alcohol or drug abuse patient.[facility] the event this information is protected by the Federal Confidentiality of Alcohol and Drug Abuse Patient Records regulations: The Federal rules restrict any use of the information to criminally investigate or prosecute any alcohol or drug abuse patient.[facility] Campus[facility] the event this information is protected by the Federal Confidentiality of Alcohol and Drug Abuse Patient Records regulations: The Federal rules restrict any use of the information to criminally investigate or prosecute any alcohol or drug abuse patient.[facility] Campus[facility] the event this information is protected by the Federal Confidentiality of Alcohol and Drug Abuse Patient Records regulations: The Federal rules restrict any use of the information to criminally investigate or prosecute any alcohol or drug abuse patient.[facility] Campus[facility] the event this information is protected by the Federal Confidentiality of Alcohol and Drug Abuse Patient Records regulations: The Federal rules restrict any use of the information to criminally investigate or prosecute any alcohol or drug abuse patient.[facility] CampusIn the event this information is protected by the Federal Confidentiality of Alcohol and Drug Abuse Patient Records regulations: The Federal rules restrict any use of the information to criminally investigate or prosecute any alcohol or drug abuse patient.[facility] CampusIn the event this information is protected by the Federal Confidentiality of Alcohol and Drug Abuse Patient Records regulations: The Federal rules restrict any use of the information to criminally investigate or prosecute any alcohol or drug abuse patient.[facility] CampusIn the event this information is protected by the Federal Confidentiality of Alcohol and Drug Abuse Patient Records regulations: The Federal rules restrict any use of the information to criminally investigate or prosecute any alcohol or drug abuse patient.[facility] CampusIn the event this information is protected by the Federal Confidentiality of Alcohol and Drug Abuse Patient Records regulations: The Federal rules restrict any use of the information to criminally investigate or prosecute any alcohol or drug abuse patient.[facility] CampusIn the event this information is protected by the Federal Confidentiality of Alcohol and Drug Abuse Patient Records regulations: The Federal rules restrict any use of the information to criminally investigate or prosecute any alcohol or drug abuse patient.[facility] CampusIn the event this information is protected by the Federal Confidentiality of Alcohol and Drug Abuse Patient Records regulations: The Federal rules restrict any use of the information to criminally investigate or prosecute any alcohol or drug abuse patient.[facility] Reason for Visit (unrecogniz ed section and content) Reason Comments Neck Pain Reason Comments Neck Pain Follow up Reason Comments New Patient Reason Comments Results [facility] Reason Comments Results [facility] Reason Comments Follow Up Reason Onset Date Comments Refill Request 09/15/2023 Reason Comments Request Outside Medical Records Reason Comments Cervical Dystonia Specialty Diagnoses / Procedures Referred By Ross manuel Referred To Contact Neurology Diagnoses Cervical dystonia Procedures CONSULT TO NEUROLOGY OFFICE/OUTPATIENT [facility] 60 MINUTES Maria Del Carmen Borges APRN.SPORTS TEACHER [id number] [place] [address] Referral ID Status Reason Start Date Expiration Date V isits Requested Visits Authorized [id number] Closed PCP Requested Referral 09/04/2023 09/03/2024 1 1 Reason Onset Date Comments Refill Request 10/18/2023 Reason Comments Insurance Authorization Botox Reason Comments Botox Injection Specialty Diagnoses / Procedures Referred By Contac t Referred To Contact ADULT NEUROLOGY Diagnoses Chronic migraine without aura, intractable, with status migrainosus Procedures BOTULINUM TOXIN A PER 1 UNIT CHEMODERVATE FACIAL/TRIGEM/CERV MUSC MIGRAINE Harman Sullivan MD [address] [place] [address] [facility] Chris [address] [place] [address] Referral ID Status Reason Start Date Expiration Date V isits Requested Visits Authorized [id number] Authorized 10/11/2023 10/14/2024 99 99 Reason Comments Appointment Reason Comments 1st po Exc. bilateral breast masses Specialty Diagnoses / Procedures Referred By Contac t Referred To Contact General Surgery Diagnoses Hospital followup status post surgery Procedures PA UNLISTED EVALUATION AND MANAGEMENT SERVICE [facility] [address] [place] [address] Dano Pyle, DO [address] [address] Phone: tel: fax: Referral ID Status Reason Start Date Expiration Date Visits Re quested Visits Authorized [id number] Closed 06/17/2024 12/14/2024 1 1 Specialty Diagnoses / Procedures Referred By Contac t Referred To Contact ADULT NEUROLOGY Diagnoses Chronic migraine without aura, intractable, with status migrainosus Procedures BOTULINUM TOXIN A PER 1 UNIT CHEMODERVATE FACIAL/TRIGEM/CERV MUSC MIGRAINE Harman Sullivan MD [address] [place] [address] Phone: tel: fax: Neurology [address] [place] [address] Phone: tel: fax: Referral ID Status Reason Start Date Expiration Date Visits Requested Visits Authorized [id number] Authorized Financial Clearance Required - [employer] 10/11/2023 10/14/2024 99 99 INFORMATION SOURCE (unrecogn ized section and content) DATE CREATED AUTHOR 09/07/2022 [facility] DATE CREATED AUTHOR AUTHOR'S ORGANIZ ATION 11/15/2022 [employer] DATE CREATED AUTHOR AUTHOR'S ORGANIZ ATION 01/01/2023 [facility] DATE CREATED AUTHOR AUTHOR'S ORGANIZ ATION 02/04/2023 [facility] DATE CREATED AUTHOR AUTHOR'S ORGANIZ ATION 02/01/2024 [facility] DATE CREATED AUTHOR AUTHOR'S ORGANIZ ATION 02/22/2024 [facility] DATE CREATED AUTHOR AUTHOR'S ORGANIZ ATION 06/21/2024 [facility] DATE CREATED AUTHOR AUTHOR'S ORGANIZ ATION 06/24/2024 [facility] FOR RECORDS PERTAINING TO PATIENTS WHO ARE [...] BE BASED ON THE PRIMARY CLINICAL RECORDS. [facility]. provides no warranty or guarantee of the accuracy or completeness of information in this document.
[2024-07-31 05:22] LABS: Influenza Virus A Antigen Negative; Influenza Virus B Antigen Negative; Internal Control Within Normal Limits; SARS-CoV-2 Ag NEGATIVE (NEGATIVE)
[2024-07-31] MEDS: HYDROCODONE/ACET 10-325 MG TABLET 1 TAB PO (06:04)
== END 2024-07-31 06:08 | disposition home or self-care (01) ==
PROVIDERS: Emergency Provider Emergency Medicine; PCP Family Medicine
DX: J06.9 Acute upper respiratory infection, unspecified (principal); M54.2 Cervicalgia; G89.29 Other chronic pain
CPT/HCPCS: 87804; 87811; 96372; 99285; J2360

== ENCOUNTER 2024-08-14 07:55 | Outpatient (OUT) | payer OTHER, SELFPAY ==
--- NOTE | 2024-08-14 08:19 | PM.CN ---
Consult Note: HPI Data of Consult Patient: known to practice within the last 3 years Requesting Physician: Jacqui Anthony NP Primary Care Provider: Danny Obrien MD Consult Narrative Reason for consult: f/u Narrative: Brittanie Bradley a pleasant 39 year old female presents for evaluation and management of chronic neck pain and migraines, today patient rating pain 4/10 pulling tightness to shoulders and neck. Patient continues to follow up with neurology and movement disorder specialists at [facility] who are administering botox and prescribing a variety of medications for the patient. In the past patient has benefitted from occasional norco for moderate to severe pain unresponsive to tylenol, aleve, motrin, ibuprofen, baclofen, flexeril, tizanidine. Since last visit pt has had two outside fills of opioid medications without notifying our office, unfortunately this does violate her pain treatment agreement with our office as discussed. at this time she is utilizing tylenol, motrin, flexeril with mild benefit. cc:: CC: Jacqui Anthony NP Review of Systems ROS Status of ROS 10 or more systems reviewed and unremarkable except as noted in history and below Musculoskeletal Reports: neck pain PFSH PFSH Social History Smoking status: Never smoker Little interest or pleasure in doing things: not at all Feeling down, depressed, or hopeless: not at all Meds Home Medications and Allergies Home Medications ?Medication ?Instructions ?Recorded ?Confirmed ?Type cetirizine 10 mg tablet (Allergy 10 mg PO DAILY 03/21/23 02/18/24 History Relief (cetirizine)) diazepam 10 mg tablet 10 mg PO DAILY PRN muscle spasm 03/21/23 02/18/24 History onabotulinumtoxinA 200 unit 300 unit IM .every 3 months 03/21/23 02/18/24 History solution for injection (Botox) pramipexole 1 mg tablet (Mirapex) 1 mg PO DAILY 03/21/23 02/18/24 History cyclobenzaprine 5 mg tablet 5 mg PO TID PRN muscle spasm #10 01/22/24 02/18/24 Rx tabs minocycline 50 mg capsule 50 mg PO DAILY 01/22/24 02/18/24 History diclofenac sodium 50 mg 50 mg PO BID #60 tabs 01/30/24 Rx tablet,delayed release hydrocodone 5 mg-acetaminophen 325 1 tab PO DAILY PRN pain #14 tabs 01/30/24 02/18/24 Rx mg tablet hydrocodone 5 mg-acetaminophen 325 1 tab PO DAILY PRN pain #30 tabs 03/31/24 Rx mg tablet Allergies Allergy/AdvReac Type Severity Reaction Status Date / Time caffeine Allergy Mild Vomiting Verified 07/31/24 04:42 adhesive Allergy Blister Verified 07/31/24 04:42 dihydroergotamine Allergy Difficulty Verified 07/31/24 04:42 Breathing metoprolol Allergy Swelling Verified 07/31/24 04:42 of Lip/Tongue/Throat Exam Constitutional Documenting provider has reviewed patient's vital signs: yes Common normals: no apparent distress, oriented x3, healthy appearing, alert and well nourished General appearance: cooperative HENMT Common normals: normocephalic, hearing grossly normal bilaterally and moist oral mucous membranes Head and scalp: normocephalic Eye Common normals: PERRL Pupil: PERRL Neck & C-Spine Common normals: full ROM General: normal visual inspection Cervical spine: pain with cervical ROM, cervical spine tenderness, paracervical muscle tenderness, paracervical muscle spasm and trapezius muscle tenderness Other: positive facet loading tenderness over bilateral C2-5 facets negative spurlings Chest Common normals: inspection of chest normal Respiratory Common normals: normal respiratory effort, no retractions and no use of accessory muscles Neuro Common normals: oriented x3, CN's II-XII intact bilaterally, moves all extremities, no focal motor deficits, no sensory deficits noted and deep tendon reflexes 2+ bilaterally Sensorium/orientation: alert Motor exam: strength 5/5 throughout and no movement abnormalities noted Psych Common normals: mental status grossly normal, thought process normal, cooperative, affect normal, speech normal and activity/motor behavior normal Speech: normal speech Thought process: normal thought process Results Imaging Cerivcal MRI : Attestation: I have reviewed the pertinent imaging results. Radiologist's impression: C2-C3: No significant disc/facet abnormality, spinal stenosis, or foraminal stenosis. C3-C4: Early degenerative disc disease is present without focal protrusion or neural impingement. C4-C5: Early degenerative disc disease is present without focal protrusion or neural impingement. C5-C6: Early degenerative disc disease is present without focal protrusion or neural impingement. C6-C7: Early degenerative disc disease is present without focal protrusion or neural impingement. C7-T1:. No significant disc/facet abnormality, spinal stenosis, or foraminal stenosis. Additional Findings Additional findings: If on a controlled substance or opioids, I have checked an [place] report on this patient and there are no aberrancies noted in the prescribing history.??If on a controlled substance or opioid a drug screen was completed and reviewed within the last year, and if there has not been a drug screen completed we ordered one today to monitor higher risk, state monitored pain medication use. As part of providing excellent, safe, comprehensive care, the following was completed at our patient's visit: 1. A medication reconciliation and review to ensure accurate knowledge of current/active medications, including asking our patients to inform us about any [id number] medications or herbal remedies/nutritional supplements/alternative remedies. 2. A review to specifically ensure our patients have had annual screening for screening for depression, screening for tobacco use, and screening for unhealthy alcohol use. For concerning screenings had a discussion with the patient, provided patient education, and recommended follow-up with primary care provider when appropriate. If patient noted with a risk of falling, they received education on strength, gait, and balance training to prevent future risk of falling. Assessment and Plan Assessment and Plan (1) Degenerative disc disease, cervical: (2) Neck pain: (3) Cervical spondylosis: (4) Migraines: (5) Myofascial pain: Plan cervical MRI reviewed with pt, recommended alternative level cervical MBBs working towards RFAs. encouraged pt to utilize flexeril more frequently, currently taking very PRN. since last visit she ran out of diclofenac and hydrocodone, then had two outside opioid fills without notifying our office. as discussed this has resulted in a non-narcotic care plan and we will not be able to prescribe her opioid medications. will refill diclofenac 75mg BID PRN pain, advised her to DC all otc NSAIDs. continue f/u with neurology and movement disorder specialist. f/u with our office 6 months, sooner if needed
== END 2024-08-14 07:56 | disposition home or self-care (01) ==
LOC: PM 07:55
PROVIDERS: PCP Family Medicine; Visit Provider Nurse Practitioner
DX: M50.30 Other cervical disc degeneration, unspecified cervical region (principal); M47.812 Spondylosis without myelopathy or radiculopathy, cervical region; G40.909 Epilepsy, unspecified, not intractable, without status epilepticus; M79.18 Myalgia, other site
CPT/HCPCS: G0463

== ENCOUNTER 2024-10-08 03:25 | Emergency (ER) | payer OTHER, SELFPAY ==
[2024-10-08 03:27] VITALS: BP 130/92; PULSE 84; TEMP 36.6; O2SAT 100; BMI 29.3
--- OUTSIDE RECORDS SUMMARY | 2024-10-08 03:34 | XMS_ITS | CCD ---
Author Organization [facility] CliniSyga Care Team Providers Care End Packer Name Role Phone MD Filiberto Ying Primary Care Provider [phone] PURVI Sheehan Attending Provider [phone] ., DR DE LOS SANTOS [...] ., DR CHARISMA Mckoy Attending Unavailable Hoy, Filiberto M Unavailable Unavailable Unavailable MD Filiberto Ying Primary Care Provider [phone] DO Dano Pyel Attending Provider [phone] DO Roseanne Castellanos Attending Provider MD Romero [...] [phone] MD Filiberto Ying Primary Care Provider [phone] Filiberto Ying MD Primary Care Provider [phone] MD Filiberto Ying M Primary Care Provider [phone] DO Dano Pyle Attending Provider [phone] Merna MCMILLAN, Reuben Pope Attending Unavailable Filiberto Ying MD Primary Care Provider [phone] Jonas OQUENDO, Dano Attending Provider [phone] Babar Singh PA-C Emergency Provider Filiberto Ying MD Primary Care Provider [phone] DANO PYLE Attending Unavailable VALERIO VELEZ Attending Unavailable Filiberto Ying MD Primary Care Provider [phone] Jonas OQUENDO, Dano Attending Provider [phone] Babar Singh PA-C Emergency Provider Luis Goins DO Emergency Provider MARIA DEL CARMEN BORGES Attending Unavailable HOY, FILIBERTO M Primary Care Unavailable LAURIE, HARMAN Referring Unavailable LAURIE, HARMAN Attending Unavailable HOY, FILIBEROT M Primary Care Unavailable LAURIE, HARMAN Referring Unavailable HARMAN SULLIVAN Attending Unavailable HOY, FILIBERTO M Primary Care Unavailable LAURIE, HARMAN Referring Unavailable WEISSFELD, HARMAN Attending Unavailable HOY, FILIBERTO M Primary Care Unavailable HARMAN SULLIVAN Attending Unavailable MARIA DEL CARMEN BORGES Referring Unavailable HOY, FILIBERTO M Primary Care Unavailable Filiberto Ying MD Primary Care Provider [phone] Peg Ruiz DO Emergency Provider Vel Yinglas M Primary Care Unavailable Peg Ruiz Admitting Unavailable Peg Ruiz M Attending Unavailable Hoy, Filiberto M Primary Care Unavailable Babar Singh Admitting Unavailable Babar Singh Attending Unavailable Frany, Filiberto M Primary Care Unavailable Luis Goins Admitting Unavailable Luis Goins Attending Unavailable Dano Pyle Attending Unavailable Stepan, Filiberto M Primary Care Unavailable Dano Pyle Admitting Unavailable Filiberto Ying Primary Care Unavailable Jonas, Dano Admitting Unavailable Dano Pyle Attending Unavailable Filiberto Ying Primary Care Unavailable Jonas, Dano Admitting Unavailable Dano Pyle Attending Unavailable Allergies Allergy Classification Reported Allergen(s) Allergy Type Date of Onset Reaction(s) Facility (20 sources) Caffeine; Translations: [Caffeine] Drug Allergy 06-13-19 13 Vomiting, GI intolerance, Unknown [facility] (20 sources) DHE; Translations: [Dhe] Allergy to substance 06-13-19 13 Shortness of Breath [facility] (20 sources) Adhesive agent; Translations: [ADHESIVE] Propensity to adverse reactions to drug 07-29-19 23 Other: See Yamilet B[facility] (20 sources) Adhesive Tape Allergy to substance (finding) 10-24-19 23 [facility] (9 sources) prasterone; Translations: [DHEA CAPS] Drug Allergy [facility] [address] DO Work Phone: (20 sources) Metoprolol; Translations: [METOPROLOL] Drug Allergy 05-01-20 23 Swelling [facility] (7 sources) Metoclopramide Drug Allergy 05-15-20 23 Worsens restless leg [facility] (2 sources) Dihydroergotamine Drug Allergy 01-16-20 23 Unknown [facility] (2 sources) Wound Dressing Adhesive Drug Intolerance 07-29-19 23 Unknown, Yamilet [facility] (3 sources) Droperidol Drug Allergy 07-31-19 Other: See Comments [facility] Medications Current Medications Medication Drug Class(es) Dates Sig (Normalized) Sig (Original) baclofen 10 mg oral tablet (20 sources) gamma-Aminobutyri c Acid-ergic Agonist Start: 10-18-2023 End: 10-18-2023 take [...] oral capsule (2 sources) biotin 5 MG capsule Take by mouth. Active cefdinir 300 mg oral capsule (2 sources) Cephalosporin Antibacterial Start: 08-02-19 take 1 capsule by mouth twice daily Cefdinir 300 mg capsule Active 300 MG PO Twice daily August 01, 2024 12:00am cephalexin 500 mg oral capsule (1 source) Cephalosporin Antibacterial Start: 09-18-19 take 1 capsule by mouth twice daily Cephalexin 500 mg capsule Active 500 MG PO Twice daily 14 September 17, 2024 12:00am cetirizine hydrochloride 10 mg oral tablet (20 sources) Histamine-1 Receptor Antagonist Start: 06-10-19 take 1 tablet by mouth once daily Cetirizine 10 mg tablet Active 10 MG PO Daily June 10, 2024 1:00am Start: 10-14-2019 End: 05-01-2023 take 1 tablet by mouth once daily Cetirizine 10 mg tablet Discontinued 10 MG PO Daily October 14, 2019 12:00am May 01, 2023 12:54pm Comment on above: 10 mg once daily. diclofenac sodium 50 mg delayed release oral [...] 02/06/2023 Active lidocaine 0.05 mg/mg medicated patch (3 sources) Antiarrhythmic, Amide Local Anesthetic Start: 06-19-2024 apply 1 dose topically every twenty-four hours Lidocaine 5 % adhesive patch,medicated Active 1 PATCH TOPICAL Q24H June 19, 2024 1:00am leave on most painful area for up [...] MG PO Every morning June 10, 2024 1:00am Start: 10-14-2019 End: 05-01-2023 take 1 capsule by mouth once daily Minocycline 50 mg capsule Discontinued 50 MG PO Daily October 14, 2019 12:00am May 01, 2023 12:55pm take 1 tablet by klever th once [...] tablets by mouth once daily at bedtime as needed Pramipexole 1 mg tablet Active 2 MG PO Daily at bedtime as needed for restless leg May 01, 2023 1:00am Start: 06-28-2022 take 1 tablet by klever [...] (20 sources) HMG-CoA Reductase Inhibitor End: 09-21-19 take 1 tablet by mouth at bedtime simvastatin (Zocor) 40 MG tablet Take 40 mg by mouth at bedtime. Active Comment on above: 40 mg once daily. sulfamethoxazole 800 mg / trimethoprim 160 mg oral tablet (2 sources) Dihydrofolate Reductase Inhibitor Antibacterial, Sulfonamide Antimicrobial Start: 12-16-19 take 1 tablet by mouth once in the morning, then take 1 tablet by mouth once at bedtime sulfamethoxazole-t rimethoprim (Bactrim DS) 800-160 MG per tablet Take 1 tablet by mouth in the morning and 1 tablet before bedtime. 12/15/2022 Active tiZANidine 4 mg oral tablet (8 sources) Central alpha-2 Adrenergic Agonist Start: 06-10-19 take 1 tablet by mouth once daily at bedtime Tizanidine 4 mg tablet Active 4 MG PO Daily at bedtime June 10, 2024 1:00am Start: 06-08-2024 tiZANidine (ZA NAFLEX) 4 mg tablet Take 8 mg by mouth daily at bedtime. 06/08/2024 Active traMADol hydrochloride 50 mg oral tablet (5 sources) Opioid Agonist Start: 06-17-2024 traMADol (ULTR AM) 50 mg tablet Take 50 mg by mouth. 06/17/2024 Active Start: 06-17-2024 End: 08-01-2024 take 1 tablet by mouth every four to six hours as needed for pain Tramadol 50 mg tablet Discontinued 50 MG PO EVERY 4-6 HOURS as needed for pain 07 08June 17, 2024 1:00am August 01, 2024 8:23am trihexyphenidyl hydrochloride 2 mg oral tablet (2 [...] / codeine phosphate 30 mg oral tablet (7 sources) Opioid Agonist Start: 05-15-2023 End: 06-10-2024 take 1 tablet by mouth every six hours as needed for pain Acetaminophen-Codei ne 300-30 mg tablet Discontinued 1 TAB PO Q6H as needed for pain 20 May 15, 2023 1:00am June 10, 2024 1:03pm acetaminophen 325 mg / HYDROcodone bitartrate 5 mg oral tablet (20 sources) Opioid Agonist Start: 06-19-2024 End: 08-01-2024 take 1 tablet by mouth every six hours as needed for pain Hydrocodone-Acetami nophen 5-325 mg tablet Discontinued 1 TAB PO Q6H as needed for pain 12 June 19, 2024 August 01, 2024 8:23am Start: 03-21-2023 End: 06-10-2024 take 1 tablet by mouth once daily as needed for pain Hydrocodone-Acetaminophen 5-325 mg table t Discontinued 1 TAB PO Daily as needed for Pain May 01, 2023 1:00am June 10, 2024 1:04pm Start: 06-29-2022 HYDROcodone-ac etaminophen (NORCO) 5-325 mg per tablet as needed. 06/29/2022 Active Start: 10-22-2019 End: 12-24-2020 take 1 tablet by mouth every six hours as needed for pain Hydrocodone-Acetaminophen 5-325 mg table t Discontinued 1 TAB PO Q6H as needed for pain 10 August 16, 2020 December 24, 2020 12:15pm Start: 10-14-2019 End: 12-24-2020 take 1 tablet by mouth every eight hours as needed for pain Hydrocodone-Acetaminophen (Pala) 5-325 mg tablet Discontinued 1 TAB PO Q8H as needed for pain 10 October 14, 2019 December 24, 2020 12:15pm Comment on above: as needed. onabotulinumtoxina 100 unt injection (8 sources) Acetylcholine Release Inhibitor Start : 07-30 End: 07-30 inject 1 dose by intramuscular injection every [...] resin 4000 mg powder for oral suspension (12 sources) Bile Acid Sequestrant Start: 12-24-2020 End: 05-01-2023 take 1 dose by mouth once Cholestyramine-Aspartame (Questran Light) 4 gram powder Discontinued 4 GM PO before meals and at bedtime December 24, 2020 12:00am May 01, 2023 12:55pm no meds 1 hr before/4-6 hr after dose cyclobenzaprine hydrochloride 5 mg oral tablet (20 sources) Muscle Relaxant Start: 01-19-2023 End: 06-10-2024 take 1 tablet by mouth once daily at bedtime as needed for muscle spasms Cyclobenzaprine 5 mg tablet Discontinued 5 MG PO Daily at bedtime as needed for spasms May 01, 2023 1:00am June 10, 2024 1:04pm Start: 10-14-2019 End: 05-01-2023 take 1 tablet by mouth once daily as needed for muscle spasms Cyclobenzaprine 10 mg tablet Discontinued 10 MG PO Daily as needed for Muscle Spasm October 14, 2019 12:00am May 01, 2023 12:55pm Start: 10-14-2019 End: 05-01-2023 take 2 tablets [...] by klever th at bedtime as needed. cyproheptadine hydrochloride 4 mg oral tablet (1 source) Start: 013 End: take 1 tablet by mouth three times daily cyproheptadine 4 mg tablet Take 1 tablet by mouth three times daily. 30 tablet 11 06/13/2012 07/28/2022 Discontinued (Course of therapy completed) Comment on above: Take 1 tablet by klever th three times daily. diazePAM 5 mg oral tablet (20 sources) Benzodiazepine Start: 025 End: take 1 tablet by mouth twice daily as needed for muscle spasms Diazepam (Valium) 5 mg tablet Discontinued 5 MG PO Twice daily as needed for muscle spasm 10 June 19, 2024 1:00am August 01, 2024 8:23am Start: 06-13-2022 take 1 tablet by klever th twice daily as needed for muscle spasms Diazepam 10 mg tablet Active 10 MG PO Twice daily as needed for Spasms May 01, 2023 1:00am Comment on above: Take 10 mg by mouth twice daily as needed. doxepin hydrochloride 10 mg oral capsule (12 sources) Tricyclic Antidepressant Start: 10-14-19 End: 12-25-19 take 2 capsules by mouth once daily at bedtime as needed for headache Doxepin 10 mg capsule Discontinued 20 MG PO Daily at bedtime as needed for HEADACHE October 14, 2019 12:00am December 24, 2020 12:23pm Start: 10-14-2019 End: 12-24-2020 take 20 mg by mouth once daily at bedtime Doxepin Discontinued 20 MG PO Daily at bedtime October 14, 2019 12:00am December 24, 2020 12:23pm L Norgest/E.Estradiol-E.Estrad (14 sources) Progestin, Estrogen, Progestin-containing Intrauterine Device Start: 10-14-2019 End: 05-01-2023 take 1 tablet by mouth once daily L Norgest/E.Estradiol-E.Estrad 0.15 mg-30 mcg (84)/10 mcg (7) tablets,dose pack,3 month Discontinued 1 TAB PO Daily October 14, 2019 12:00am May 01, 2023 12:55pm Start: 10-14-2019 End: 05-01-2023 take 1 tablet by mouth once daily L Norgest/E.Estradiol-E.Estrad 0.15 mg-3 0 mcg (84)/10 mcg (7) tablets,dose pack,3 month [...] DAY Oral for 91 Active 1.5 ml kathleenumab-vfrm 150 mg/ml prefilled syringe (12 sources) Start: 10-14-2019 End: 05-01-2023 Fremanezumab-Vfrm 225 mg/1.5 mL syringe Discontinued 1.5 ML SUBCUT every month October 14, 2019 12:00am May 01, 2023 12:54pm hyoscyamine sulfate 0.125 mg sublingual tablet (12 sources) Start: 10-14-2019 End: 12-24-2020 take 1 tablet by mouth four times daily as needed for pain Hyoscyamine Sulfate 0.125 mg tablet, sublingual Discontinued 1 - 2 TAB PO Four times daily as needed for Abdominal Pain October 14, 2019 12:00am December 24, 2020 [...] for nausea and vomiting May 15, 2023 1:00am June 10, 2024 1:04pm Start: 10-31-2022 take 1 tablet by klever [...] needed for nausea and vomiting 60 December 24, 2020 12:00am June 10, 2024 1:04pm Start: 10-14-2019 End: 05-01-2023 take 1 tablet by mouth three times daily as needed for nausea and vomiting Ondansetron 4 mg tablet,disintegrating Discontinued 4 MG PO Three times daily as needed for nausea and vomiting 7 2 October 14, 2019 12:00am May [...] pantoprazole 40 mg delayed release oral tablet (14 sources) Proton Pump Inhibitor Start: 10-14-19 End: 05-01-20 take 1 tablet by mouth once daily Pantoprazole 40 mg tablet,delayed release (DR/EC) Discontinued 40 MG PO Daily October 14, 2019 12:00am May 01, 2023 12:55pm Nphxgijy-Xd-Hsm-Fe-FA (P-D CARTER PLUS) Tab (2 sources) End: 08-02-19 23 take 1 tablet by mouth once daily Xkukupml-Li-Mkc-Fe-F A (P-D PLUS) Tab Take 1 tablet by mouth once daily. 0 08/01/2022 Discontinued (Course of therapy completed) take 1 tablet by mouth once ute y Hbqbnefq-Yv-Gpg-Fe-FA (P-D PLUS) Tab Take 1 tablet by [...] as needed for nausea and vomiting September 27, 2020 12:00am December 24, 2020 12:24pm Start: 09-27-2020 End: 12-24-2020 take 1 tablet by mouth four times daily as needed for nausea and vomiting Promethazine 25 mg tablet Discontinued 25 MG PO Four times daily as needed for nausea and vomiting September 27, 2020 12:00am December 24, 2020 12:15pm propranolol hydrochloride 10 mg oral tablet (17 sources) beta-Adrenergic Jessie Start: 10-14-2019 End: 05-01-2023 [...] by mouth three times daily. 90 tablet 06/25/2012 07/28/2022 Discontinued (Course of therapy completed) propranolol (Ind eral) 40 MG tablet 1 (one) time each day at the same time. Active Comment on above: Take 1 tablet by klever th three times daily. 1000 ml sodium chloride 9 mg/ml injection (1 source) Start: 06-13-19 End: 07-29-19 0.9 % SODIUM CHLORIDE (NACL) 0.9% solution Indications: Headache(784.0) Inject 500 mL intravenously as directed. INFUSE 500 CC IV NS IV OVER 30 MIN 500 mL 0 06/13/2012 07/28/2022 Discontinued (Course of therapy completed) Comment on above: Inject 500 mL intrav enously as directed. INFUSE 500 CC IV NS IV OVER 30 MIN topiramate (14 sources) Start: 10-14-19 End: 05-01-20 take 1 capsule by mouth once daily Topiramate 100 mg capsule,extended release 24hr Discontinued 300 MG PO Daily October 14, 2019 12:00am May 01, 2023 12:56pm Start: 10-14-2019 End: 05-01-2023 take 1 capsule [...] Problem Date Documented Date Episodic/Chronic Abdominal pain (12 sources) Abdominal pain; Translations: [Unspecified abdominal pain] 09-27-2020 Episodic Administrative/social admission (4 sources) Patient encounter status; Translations: [Other reasons for seeking consultation] Episodic Biliary tract disease (12 sources) Biliary calculus; Translations: [Calculus of gallbladder without cholecystitis without obstruction] 10-14-2019 Episodic Cardiac dysrhythmias (2 sources) Tachycardia, unspecified; Translations: [Sinus tachycardia] Onset: 12-28-2022 Episodic Disorders of lipid metabolism (9 sources) Hyperlipidemia; Translations: [Other and unspecified hyperlipidemia] Chronic Headache; including migraine (9 sources) Migraine, unspecified, not intractable, without status migrainosus; Translations: [Refractory migraine without aura] Onset: 04-10-2022 09-21-2023 Chronic Headache; including migraine (18 sources) Headache; Translations: [Headache] Onset: 04-06-2022 09-27-2020 Episodic Headache; including migraine (1 source) Headache; including migraine; Translations: [HEADACHE UNSPECIFIED] Onset: 07-10-2022 Influenza (2 sources) Influenza due to Influenza A virus; Translations: [Influenza due to other identified influenza virus with other respiratory manifestations] 08-01-2024 Episodic Nonspecific chest pain (1 source) Atypical chest pain; Translations: [Other chest pain] 09-17-2024 Episodic Other and unspecified benign neoplasm (4 sources) Fibroadenoma of right breast; Translations: [Benign neoplasm of right breast] Onset: 06-23-2024 06-23-2024 Episodic Other circulatory disease (12 sources) Elevated blood-pressure reading without diagnosis of hypertension; Translations: [Elevated blood-pressure reading, without diagnosis of hypertension] 09-27-2020 Episodic Other connective tissue disease (12 sources) Spasm of cervical paraspinous muscle; Translations: [...] Spondylosis; intervertebral disc disorders; other back problems (19 sources) Chronic neck pain; Translations: [Cervicalgia] Onset: 02-20-2022 Episodic Syncope (19 sources) Syncope; Translations: [Syncope and collapse] Onset: 12-28-2022 Episodic Urinary tract infections (1 source) Urinary tract infectious disease; Translations: [Urinary tract infection, site not specified] 09-17-2024 Episodic Past or Other Problems Problem Classification Problem Date Documented Date Episodic/Chronic Coma; stupor; and brain damage (2 sources) Daytime somnolence; Translations: [Somnolence] Onset: 08-23-2023 08-23-2023 Episodic Deficiency and other anemia (2 sources) Iron deficiency anemia; Translations: [Iron deficiency anemia, unspecified] Onset: 08-23-2023 08-23-2023 Episodic Immunizations and screening for infectious disease (1 source) Encounter for screening for human papillomavirus (HPV); Translations: [ENC SCREENING HUMAN PAPILLOMAVIRUS] Onset: 01-10-2022 Episodic Nonmalignant breast conditions (20 sources) Breast lump; Translations: [Unspecified lump in the left breast, unspecified quadrant] Onset: 04-18-2023 04-05-2023 Episodic Other connective tissue disease (1 [...] Test Name Value Interpretation Reference Range Facility Appearance of UrineOrdered B y: Peg Carvajalrosalino on 09-17-2024 Appearance (U) Urine appearance Clear [facility] B-Type Natriuretic Peptideon 09-17-2024 Natriuretic peptide B (Bld) [Mass/Vol] 24.0 pg/mL Normal 5-100 [facility] Comment on above: Result Comment: PERF ORMED BY: [facility] [address] [place] [address] PATHOLOGIST [employer] SALES CONSULTANT RAFIA LOPEZ M.D. Performed By: #### C K, BMP, PT, BNP, DDIMER, CBC, HS TROP ####[place] [id number] [place] [id number] [place] Bacteria [Presence] in Urine by AutomatedOrdered By: Peg Ruiz on 09-17-2024 Bacteria Auto Ql (U) Bacteria [Presence] in Urine by Automated None Seen [facility] Basic Metabolic Panelon 08-21 Anion gap [Moles/Vol] 10.9 mmol/L Normal 6.0-15.0 Th e [facility] Comment on above: Performed By: #### C K, BMP, PT, BNP, DDIMER, CBC, HS TROP ####[place] [id number] [place] [id number] [facility] Calcium [Mass/Vol] 9.4 mg/dL Normal 8.6-10.3 [facility] Comment on above: Performed By: #### C K, BMP, PT, BNP, DDIMER, CBC, HS TROP ####[place] [id number] [place] Chloride [Moles/Vol] 106 mmol/L Normal 98-107 [facility] Comment on above: Performed By: #### C K, BMP, PT, BNP, DDIMER, CBC, HS TROP ####[place] [id number] [place] CO2 [Moles/Vol] 26.7 mmol/L Normal 21.0-31.0 [facility] Comment on above: Performed By: #### C K, BMP, PT, BNP, DDIMER, CBC, HS TROP ####[place] [id number] [place] Creatinine [Mass/Vol] 0.91 mg/dL Normal 0.60-1.20 [facility] Comment on above: Performed By: #### C K, BMP, PT, BNP, DDIMER, CBC, HS TROP ####[place] [id number] [place] [id number] [place] Creatinine Clr Calc Pharmacy 80.55 Normal [facility] Comment on above: Result Comment: PERF ORMED BY: [facility] [address] [place] [address] PATHOLOGIST [employer] SALES CONSULTANT RAFIA LOPEZ M.D. Performed By: #### C K, BMP, PT, BNP, DDIMER, CBC, HS TROP ####[place] [id number] [place] [address] [place] GFR/1.73 sq M.predicted MDRD (S/P/Bld) [Vol rate/Area] mL/min/{1.73_m2} Normal [facility] Comment on above: Performed By: #### C K, BMP, PT, BNP, DDIMER, CBC, HS TROP ####[place] [id number] [facility] Glucose [Mass/Vol] 99 mg/dL Normal 70-100 [facility] Comment on above: Result Comment: [place] Glucose Reference Range is dependent on time and content of last meal. Glucose of more than 200 mg/dL in a nonstressed, ambulatory subject supports the diagnosis of Diabetes Mellitus. ADA recommended reference range Performed By: #### C K, BMP, PT, BNP, DDIMER, CBC, HS TROP ####[place] [id number] [place] [id number] [facility] Potassium [Moles/Vol] 3.6 mmol/L Normal 3.5-5.1 [facility] Comment on above: Performed By: #### C K, BMP, PT, BNP, DDIMER, CBC, HS TROP ####[place] [id number] [facility] Sodium [Moles/Vol] 140 mmol/L Normal 136-145 [facility] Comment on above: Performed By: #### C K, BMP, PT, BNP, DDIMER, CBC, HS TROP ####[facility] [id number] Urea nitrogen [Mass/Vol] 13 mg/dL Normal 7-25 [facility] Comment on above: Performed By: #### C K, BMP, PT, BNP, DDIMER, CBC, HS TROP ####[facility] [id number] [place] [id number] [facility] Basophils Auto (Bld) [#/Vol] Ordered By: Peg Ruiz on 09-17-2024 Basophils (Bld) [#/Vol] Automated basophil count 0.0-0.2 [facility] Basophils/100 WBC Auto (Bld) Ordered By: Peg Ruiz on 09-17-2024 Basophils/100 WBC (Bld) Automated basophil % . [facility] Bilirubin Test strip Ql (U)O rdered By: Peg Ruiz on 09-17-2024 Bilirubin Ql (U) Bilirubin.total [Pre sence] in Urine by Test strip Negative [facility] CT abdomen pelvis wo conon 0 09-17-2024 CT abdomen pelvis wo con [facility] [place] [address] CT Scan Report Signed Patient: Brittanie Garcia MR#: [id number] : 1985 Acct:[id number] Age/Sex: 39 / F ADM Date: 09/17/24 Loc: ER Room: Type: [facility] ER Attending Dr: Copies to: DO Peg Aldridge DO Ordering Provider: Iftikhar Cisneros DO Date of Service: 09/17/24 CT/CT abdomen pelvis wo con: r/o L obstructing stone CT ABDOMEN AND PELVIS WITHOUT INTRAVENOUS CONTRAST: CLINICAL HISTORY: Left flank pain COMPARISON: None TECHNIQUE: Spiral images were obtained through the abdomen and pelvis without intravenous contrast. This CT exam was performed using one or more following dose reduction techniques: Automated exposure control, adjustment of the mA and/or kV according to patient size, or use of iterative reconstruction technique. FINDINGS: Lung Bases: [Bibasilar atelectasis] Organs:Suboptimal evaluation due to lack of IV contrast. Gallbladder has been removed. Splenic granulomas. Liver pancreas adrenal glands and aorta all appear unremarkable. Bilateral nephrolithiasis, largest stone measuring 3 mm involving the right kidney. No hydronephrosis. No ureteral calculus. Subcentimeter hyperdense lesion left kidney too small fracture characterization. Aorta appears normal in caliber.[ GI: Stomach is grossly unremarkable. Small bowel appears nondilated. No acute colonic abnormality.[ Pelvis:[Urinary bladder is grossly unremarkable. Uterus has been removed. No adnexal mass.] Peritoneum/Retroperitoneum: No free air free fluid or lymphadenopathy.[ Abd wall/Bones:No acute findings. Osseous structures demonstrate degenerative change.[ CT/CT abdomen pelvis wo con IMPRESSION: Bilateral nephrolithiasis. No obstructive uropathy. Impression dictated by: Prince Heath Jr., D.OLatisha 09/17/2024 8:21 AM Dictation Location: [place] [address] Transcribed By: [facility] 09/17/24820 Dictated By: Prince Heath Jr, DO 09/17/2418 Signed By: 09/17/24820 Normal [facility] [facility] Calcium [Mass/volume] in Ser um or PlasmaOrdered By: Peg Ruiz on 09-17-2024 Calcium [Mass/Vol] Calcium [Mass/volume ] in Serum or Plasma 8.6-10.3 [facility] Carbon dioxide, total [Moles /volume] in Serum or PlasmaOrdered By: Peg Ruiz on 09-17-2024 CO2 [Moles/Vol] Carbon dioxide, tota l [Moles/volume] in Serum or Plasma 21.0-31.0 [facility] Chloride [Moles/volume] in S leticia or PlasmaOrdered By: Peg Ruiz on 09-17-2024 Chloride [Moles/Vol] Chloride [Moles/vol ume] in Serum or Plasma 98-107 [facility] Color Auto (U)Ordered By: Rosalino Ruiz on 09-17-2024 Color (U) Color of Urine by Auto Yellow Fi [facility] Complete Blood Count Auto Di ffon 09-17-2024 Basophils (Bld) [#/Vol] 0.0 10*3/uL Normal 0.0-0.2 [facility] Comment on above: Result Comment: PERF ORMED BY: [address] [place] [address] PATHOLOGIST [employer]ANT RAFIA LOPEZ M.D. Performed By: #### C K, BMP, PT, BNP, DDIMER, CBC, HS TROP ####[address] Basophils/100 WBC (Bld) 0.7 % Normal . [facility] Comment on above: Performed By: #### C K, BMP, PT, BNP, DDIMER, CBC, HS TROP ####[address] Eosinophils (Bld) [#/Vol] 0.1 10*3/uL Normal 0.0-0.45 [facility] Comment on above: Performed By: #### C K, BMP, PT, BNP, DDIMER, CBC, HS TROP ####[address] Eosinophils/100 WBC (Bld) 2.0 % Normal . [facility] Comment on above: Performed By: #### C K, BMP, PT, BNP, DDIMER, CBC, HS TROP ####[address] Erythrocyte distribution width (RBC) [Ratio] 13.9 % Normal 11.9-15.3 [facility] Comment on above: Performed By: #### C K, BMP, PT, BNP, DDIMER, CBC, HS TROP ####[address] Hematocrit (Bld) [Volume fraction] 42.2 % Normal 34.0-46.4 [facility] Comment on above: Performed By: #### C K, BMP, PT, BNP, DDIMER, CBC, HS TROP ####[address] Hemoglobin (Bld) [Mass/Vol] 14.4 g/dL Normal 11.8-15.4 [facility] Comment on above: Performed By: #### C K, BMP, PT, BNP, DDIMER, CBC, HS TROP ####[address] Lymphocytes (Bld) [#/Vol] 2.6 10*3/uL Normal 1.00-4.8 [facility] Comment on above: Performed By: #### C K, BMP, PT, BNP, DDIMER, CBC, HS TROP ####[address] Lymphocytes/100 WBC (Bld) 41.7 % Normal . [facility] Comment on above: Performed By: #### C K, BMP, PT, BNP, DDIMER, CBC, HS TROP ####[address] MCH (RBC) [Entitic mass] 29.7 pg Normal 24.7-34.3 [facility] Comment on above: Performed By: #### C K, BMP, PT, BNP, DDIMER, CBC, HS TROP ####[address] MCV (RBC) [Entitic vol] 87.1 fL Normal 80-100 [facility] Comment on above: Performed By: #### C K, BMP, PT, BNP, DDIMER, CBC, HS TROP ####[address] Mean Corpuscular HGB Conc 34.1 g/dL Normal 32.0-35.0 [facility] Comment on above: Performed By: #### C K, BMP, PT, BNP, DDIMER, CBC, HS TROP ####[address] Monocytes (Bld) [#/Vol] 0.4 10*3/uL Normal 0.0-0.8 [facility] Comment on above: Performed By: #### C K, BMP, PT, BNP, DDIMER, CBC, HS TROP ####[address] Monocytes/100 WBC (Bld) 16.75 % Normal 0.00-20.00 [facility] Comment on above: Performed By: #### C K, BMP, PT, BNP, DDIMER, CBC, HS TROP ####[address] Monocytes/100 WBC (Bld) 7.0 % Normal . [facility] Comment on above: Performed By: #### C K, BMP, PT, BNP, DDIMER, CBC, HS TROP ####[address] Neutrophils (Bld) [#/Vol] 3.0 10*3/uL Normal 1.8-7.7 [facility] Comment on above: Performed By: #### C K, BMP, PT, BNP, DDIMER, CBC, HS TROP ####[address] Neutrophils/100 WBC (Bld) 48.6 % Normal . [facility] Comment on above: Performed By: #### C K, BMP, PT, BNP, DDIMER, CBC, HS TROP ####[address] NRBC% 0.1 /100{WBC} Normal 0-0.5 [facility] Comment on above: Performed By: #### C K, BMP, PT, BNP, DDIMER, CBC, HS TROP ####[address] Platelet mean volume (Bld) [Entitic vol] 7.5 fL Normal 6.3-10.7 [facility] Comment on above: Performed By: #### C K, BMP, PT, BNP, DDIMER, CBC, HS TROP ####[address] Platelets (Bld) [#/Vol] 297 10*3/uL Normal 150-450 [facility] Comment on above: Performed By: #### C K, BMP, PT, BNP, DDIMER, CBC, HS TROP ####[address] RBC (Bld) [#/Vol] 4.85 10*6/uL Normal 3.60-5.00 [facility] Comment on above: Performed By: #### C K, BMP, PT, BNP, DDIMER, CBC, HS TROP ####[facility] [place] [id number] [facility] WBC (Bld) [#/Vol] 6.3 10*3/uL Normal 3.8-11.6 [facility] Comment on above: Performed By: #### C K, BMP, PT, BNP, DDIMER, CBC, HS TROP ####[facility] [place] [id number] [facility] Creatine Kinaseon 09-17-2024 CK [Catalytic activity/Vol] 58 U/L Normal [facility] Comment on above: Performed By: #### C K, BMP, PT, BNP, DDIMER, CBC, HS TROP ####[facility] Creatine kinase [Enzymatic a ctivity/volume] in Serum or PlasmaOrdered By: Peg Ruiz on 09-17-2024 CK [Catalytic activity/Vol] Creatine kinase [Enzymatic activity/volume] in Serum or Plasma [facility] Creatinine [Mass/volume] in Serum or PlasmaOrdered By: Peg Ruiz on 09-17-2024 Creatinine [Mass/Vol] Creatinine [Mass/v olume] in Serum or Plasma 0.60-1.20 [facility] D-Dimer High Sensitivityon 0 09-17-2024 D-Dimer High Sensitivity <200 Normal 0-243 [facility] Comment on above: Result Comment: The reference range for D-dimer is <243 ng/mL D-dimer units. D-dimer results must be used in conjunction with a clinical pretest probability (PTP) assessment model for deep vein thrombosis (DVT) and pulmonary embolism (PE). Results <230 ng/mL d-dimer units can be used as a negative predictor in patients with low or moderate probability for DVT/PE. Results above the exclusion threshold of 230 ng/ml D-dimer units for DVT/PE may indicate the need for further diagnostic testing. D-Dimer can be increased in hospitalized patients due to co-morbid conditions. A hematocrit value greater than 55% may lead to inaccurate results in coagulation testing. Patients having hematocrit values >55% require a special collection tube for coagulation studies. Please contact the laboratory at [phone] for redraw instructions. PERFORMED BY: [place] [address] PATHOLOGIST [employer] CONSULTANT RAFIA LOPEZ M.D. Performed By: #### C K, BMP, PT, BNP, DDIMER, CBC, HS TROP ####[facility] [address] [place] [address] [place] Dipstick and Microscopicon 0 09-17-2024 Appearance (U) Clear Normal Clear [facility] Comment on above: Order Comment: Name Collection Type:: Clean-Voided Midstream Performed By: #### U HCG, ADDONUAPLUS #### [place] [address] [place] Bacteria,Urine Rare Normal None Seen [facility] Comment on above: Order Comment: Name Collection Type:: Clean-Voided Midstream Performed By: #### U HCG, ADDONUAPLUS #### [place] [address] [place] Bilirubin,Urine Negative Normal Negative [facility] Comment on above: Order Comment: Name Collection Type:: Clean-Voided Midstream Performed By: #### U HCG, ADDONUAPLUS #### [place] [address] [place] Color (U) Colorless Normal Yellow [facility] Comment on above: Order Comment: Name Collection Type:: Clean-Voided Midstream Performed By: #### U HCG, ADDONUAPLUS #### [facility] [address] [place] [address] [place] Glucose Ql (U) Normal Normal Normal [facility] Comment on above: Order Comment: Name Collection Type:: Clean-Voided Midstream Performed By: #### U HCG, ADDONUAPLUS #### [place] [address] [place] Hyaline Casts,Urine None Normal 0-8 [facility] Comment on above: Order Comment: Name Collection Type:: Clean-Voided Midstream Performed By: #### U HCG, ADDONUAPLUS #### [facility] [address] [place] [address] Ketones Ql (U) Negative Normal Negative [facility] Comment on above: Order Comment: Name Collection Type:: Clean-Voided Midstream Performed By: #### U HCG, ADDONUAPLUS #### [address] Leukocyte esterase Test strip Ql (U) 3+ High Negative [facility] Comment on above: Order Comment: Name Collection Type:: Clean-Voided Midstream Performed By: #### U HCG, ADDONUAPLUS #### [address] Nitrite,Urine Negative Normal Negative [facility] Comment on above: Order Comment: Name Collection Type:: Clean-Voided Midstream Performed By: #### U HCG, ADDONUAPLUS #### [address] Occult Blood,Urine Trace High Negative [facility] Comment on above: Order Comment: Name Collection Type:: Clean-Voided Midstream Performed By: #### U HCG, ADDONUAPLUS #### [address] pH (U) 6.0 [pH] Normal 5.0-9.0 [facility] Comment on above: Order Comment: Name Collection Type:: Clean-Voided Midstream Performed By: #### U HCG, ADDONUAPLUS #### [place] [address] [place] Protein,Urine Negative Normal Negative [facility] Comment on above: Order Comment: Name Collection Type:: Clean-Voided Midstream Performed By: #### U HCG, ADDONUAPLUS #### [place] [address] [place] RBC,Urine 1-2 Normal 0-4 [facility] Comment on above: Order Comment: Name Collection Type:: Clean-Voided Midstream Performed By: #### U HCG, ADDONUAPLUS #### [address] Specificy [place],Urine 1.009 Normal 1.001-1.03 0 [facility] Comment on above: Order Comment: Name Collection Type:: Clean-Voided Midstream Performed By: #### U HCG, ADDONUAPLUS #### [address] Squamous Epithelial Cell,Urine 1-2 Normal 0-2 [facility] Comment on above: Order Comment: Name Collection Type:: Clean-Voided Midstream Performed By: #### U HCG, ADDONUAPLUS #### [address] Urobilinogen,Urine Normal Normal Normal [facility] Comment on above: Order Comment: Name Collection Type:: Clean-Voided Midstream Performed By: #### U HCG, ADDONUAPLUS #### [address] WBC,Urine 1-2 Normal 0-4 [facility] Comment on above: Order Comment: Name Collection Type:: Clean-Voided Midstream Performed By: #### U HCG, ADDONUAPLUS #### [address] ECG 12 lead ECGon 09-17-2024 ECG 12 lead ECG [facility] [place] [address] Electrocardiograph Report Signed Patient: Brittanie Garcia MR#: [id number] : 1985 Acct:[id number] Age/Sex: 39 / F ADM Date: 09/17/24 Loc: ER Room: Type: [facility] ER Attending Dr: Ordering Provider: Peg Ruiz DO Date of Service: 09/17/24 ECG/ECG 12 lead ECG: Chest Pain Copies to: Test Reason : Blood Pressure : 131/86 mmHG Vent. Rate : 88 BPM Atrial Rate : 88 BPM P-R Int : 158 ms QRS Dur : 90 ms QT Int : 364 ms P-R-T Axes : 77 74 67 degrees QTcB Int : 440 ms Normal sinus rhythm Nonspecific ST abnormality Abnormal ECG When compared with ECG of 19-Jun-2024 13:56, No significant change was found Confirmed by PEG RUIZ DO ([id number]) on 09/18/2024 1:51:53 AM Referred By: Electronically Signed By: PEG RUIZ DO Transcribed By: MUS Signed By Peg Ruiz DO 0151 Normal [facility] Eosinophils Auto (Bld) [#/Vo l]Ordered By: Peg Ruiz on 09-17-2024 Eosinophils (Bld) [#/Vol] Automated eosinophil count 0.0-0.45 [facility] Eosinophils/100 WBC Auto (Bl d)Ordered By: Peg Ruiz on 09-17-2024 Eosinophils/100 WBC (Bld) Automated eosinophil % . [facility] Epithelial cells.squamous [# /area] in Urine sediment by Automated countOrdered By: Peg Ruiz on 09-17-2024 Epithelial cells.squamous Auto (Urine sed) [#/Area] Epithelial cells.squamous [#/area] in Urine sediment by Automated count 0-2 [facility] Erythrocyte distribution wid th Auto (RBC) [Ratio]Ordered By: Peg Ruiz on 09-17-2024 Erythrocyte distribution width (RBC) [Ratio] Erythrocyte distribution width [Ratio] by Automated count 11.9-15.3 [facility] Erythrocytes [#/area] in Uri ne sediment by Automated countOrdered By: Peg Ruiz on 09-17-2024 RBC Auto (Urine sed) [#/Area] Erythrocytes [#/area] in Urine sediment by Automated count 0-4 [facility] Fibrin D-dimer [Presence] in Platelet poor plasma by Latex agglutinationOrdered By: Peg Ruiz on 09-17-2024 Fibrin D-dimer LA Ql (PPP) Fibrin D-dimer [Presence] in Platelet poor plasma by Latex agglutination 0-243 [facility] Comment on above: The reference range for D-dimer is <243 ng/mL D-dimer units.D-dimer results must be used in conjunction with a clinicalpretest probability (PTP) assessment model for deep veinthrombosis (DVT) and pulmonary embolism (PE). Results <230ng/mL d-dimer units can be used as a negative predictor inpatients with low or moderate probability for DVT/PE.Results above the exclusion threshold of 230 ng/ml D-dimerunits for DVT/PE may indicate the need for furtherdiagnostic testing.D-Dimer can be increased in hospitalized patients due toco-morbid conditions.A hematocrit value greater than 55% may lead to inaccurate results in coagulation testing. Patients having hematocrit values >55% require a special collection tube for coagulation studies. Please contact the laboratory at [phone] for redraw instructions. Glucose [Mass/volume] in Ser um or PlasmaOrdered By: Peg Ruiz on 09-17-2024 Glucose [Mass/Vol] Glucose [Mass/volume ] in Serum or Plasma 70-100 [facility] Comment on above: ADA recommended refe rence rangeRandom Glucose Reference Range is dependent on time and content of last meal. Glucose of more than 200 mg/dL in a nonstressed, ambulatory subject supports the diagnosis of Diabetes Mellitus. Glucose [Mass/volume] in Uri ne by Test stripOrdered By: Peg Ruiz on 09-17-2024 Glucose Test strip (U) [Mass/Vol] Glucose [Mass/volume] in Urine by Test strip Normal [facility] HCG ( test) IA.rapi d Ql (U)Ordered By: Peg Ruiz on 09-17-2024 HCG ( test) Ql (U) Urine human chorionic gonadotropin (hCG) detection by immunoassay [facility] HCG,Urineon 09-17-2024 Beta HCG ( test) Ql (U) Negative Normal [facility] Comment on above: Order Comment: Name Collection Type:: Clean-Voided Midstream Result Comment: PERF ORMED BY: [place] [address] PATHOLOGIST [employer] CONSULTANT RAFIA LOPEZ M.D. Performed By: #### U HCG, ADDONUAPLUS #### [address] Hematocrit Auto (Bld) [Volum e fraction]Ordered By: Peg Ruiz on 09-17-2024 Hematocrit (Bld) [Volume fraction] Hematocrit [Volume Fraction] of Blood by Automated count 34.0-46.4 [facility] Hemoglobin Test strip Ql (U) Ordered By: Peg Ruiz on 09-17-2024 Hemoglobin Ql (U) Hemoglobin [Presence ] in Urine by Test strip High Negative [facility] Hemoglobin [Mass/volume] in BloodOrdered By: Peg Ruiz on 09-17-2024 Hemoglobin (Bld) [Mass/Vol] Hemoglobin [Mass/volume] in Blood 11.8-15.4 [facility] Hyaline casts [#/area] in Ur ine sediment by Automated countOrdered By: Peg Ruiz on 09-17-2024 Hyaline casts Auto (Urine sed) [#/Area] Hyaline casts [#/area] in Urine sediment by Automated count 0-8 [facility] INR in Platelet poor plasma by Coagulation assayOrdered By: Peg Ruiz on 09-17-2024 INR Coag (PPP) [Relative time] INR in Platelet poor plasma by Coagulation assay [facility] Comment on above: INR Therapeutic Rang e A) Pre- and Peroperative OAT started two weeks before surgery. NOT HIP SURGERY: 1.5 - 2.5 HIP SURGERY: 2 - 3B) Primary and secondary prevention of venous THROMBOSIS: 2 - 3C) Active venous thrombosis, pulmonary embolismand prevention of recurrent venous thrombosis: 2 - 3D) Prevention of arterial thromboembolismincluding patients with mechanical heart valves: 3 - 4.5 Ketones Test strip Ql (U)Ord ered By: Peg Ruiz on 09-17-2024 Ketones Ql (U) Ketones [Presence] i n Urine by Test strip Negative [facility] Leukocyte esterase [Presence ] in Urine by Test stripOrdered By: Peg Ruiz on 09-17-2024 Leukocyte esterase Test strip Ql (U) Leukocyte esterase [Presence] in Urine by Test strip High Negative [facility] Leukocytes [#/area] in Urine sediment by Automated countOrdered By: Peg Ruiz 09-17-2024 WBC Auto (Urine sed) [#/Area] Leukocytes [#/area] in Urine sediment by Automated count 0-4 [facility] Leukocytes [#/volume] correc harman for nucleated erythrocytes in Blood by Automated counOrdered By: Peg Ruiz on 09-17-2024 WBC corrected for nucl RBC Auto (Bld) [#/Vol] Leukocytes [#/volume] corrected for nucleated erythrocytes in Blood by Automated coun 3.8-11.6 [facility] Lymphocytes Auto (Bld) [#/Vo l]Ordered By: Peg Ruiz on 09-17-2024 Lymphocytes (Bld) [#/Vol] Lymphocytes [#/volume] in Blood by Automated count 1.00-4.8 [facility] Lymphocytes/100 WBC Auto (Bl d)Ordered By: Peg Ruiz on 09-17-2024 Lymphocytes/100 WBC (Bld) Lymphocytes/100 leukocytes in Blood by Automated count . [facility] MCH Auto (RBC) [Entitic mass ]Ordered By: Peg Ruiz on 09-17-2024 MCH (RBC) [Entitic mass] MCH [Entitic mass] by Automated count 24.7-34.3 [facility] MCHC Auto (RBC) [Mass/Vol]Or dered By: Peg Ruiz on 09-17-2024 MCHC (RBC) [Mass/Vol] MCHC [Mass/volume] by Automated count 32.0-35.0 [facility] MCV Auto (RBC) [Entitic vol] Ordered By: Peg Ruiz on 09-17-2024 MCV (RBC) [Entitic vol] MCV [Entitic volume] by Automated count 80-100 [facility] Monocyte distribution width [Entitic volume] in Blood by AutomatedOrdered By: Peg Ruiz on 09-17-2024 Monocyte distribution width Auto (Bld) [Entitic vol] Monocyte distribution width [Entitic volume] in Blood by Automated 0.00-20.00 [facility] Monocytes Auto (Bld) [#/Vol] Ordered By: Peg Ruiz on 09-17-2024 Monocytes (Bld) [#/Vol] Automated blood monocyte count 0.0-0.8 [facility] Monocytes/100 WBC Auto (Bld) Ordered By: Peg Ruiz on 09-17-2024 Monocytes/100 WBC (Bld) Automated monocyte % . [facility] Natriuretic peptide B [Mass/ Vol]Ordered By: Peg Ruiz on 09-17-2024 Natriuretic peptide B (Bld) [Mass/Vol] BNP ser/plas 5-100 [facility] Neutrophils Auto (Bld) [#/Vo l]Ordered By: Peg Ruiz on 09-17-2024 Neutrophils (Bld) [#/Vol] Neutrophils [#/volume] in Blood by Automated count 1.8-7.7 [facility] Neutrophils/100 WBC Auto (Bl d)Ordered By: Peg Ruiz on 09-17-2024 Neutrophils/100 WBC (Bld) Automated neutrophil % . [facility] Nitrite Test strip Ql (U)Ord ered By: Peg Ruiz on 09-17-2024 Nitrite Ql (U) Nitrite [Presence] i n Urine by Test strip Negative [facility] No Panel InformationOrdered By: Peg Ruiz on 09-17-2024 Estimated GFR (CKD-EPI) > 60.0 mL/Min [facility] Creatinine Clearance (Chem 80.55 [facility] Nucleated erythrocytes [Pres ence] in Blood by Automated countOrdered By: Peg Ruiz on 09-17-2024 Nucleated RBC Auto Ql (Bld) Nucleated erythrocytes [Presence] in Blood by Automated count 0-0.5 [facility] Platelet mean volume Auto (B ld) [Entitic vol]Ordered By: Peg Ruiz on 09-17-2024 Platelet mean volume (Bld) [Entitic vol] Platelet mean volume [Entitic volume] in Blood by Automated count 6.3-10.7 [facility] Platelets Auto (Bld) [#/Vol] Ordered By: Peg Ruiz on 09-17-2024 Platelets (Bld) [#/Vol] Platelets [#/volume] in Blood by Automated count 150-450 [facility] Potassium [Moles/volume] in Serum or PlasmaOrdered By: Peg Ruiz on 09-17-2024 Potassium [Moles/Vol] Potassium [Moles/v olume] in Serum or Plasma 3.5-5.1 [facility] Protein Test strip (U) [Mass /Vol]Ordered By: Peg Ruiz on 09-17-2024 Protein (U) [Mass/Vol] Protein [Mass/vol ume] in Urine by Test strip Negative [facility] Prothrombin Time INRon 09-17 INR Coag (PPP) [Relative time] 1.0 {INR} Normal [facility] Comment on above: Result Comment: INR Therapeutic Range A) Pre- and Peroperative OAT started two weeks before surgery. NOT HIP SURGERY: 1.5 - 2.5 HIP SURGERY: 2 - 3 B) Primary and secondary prevention of venous THROMBOSIS: 2 - 3 C) Active venous thrombosis, pulmonary embolism and prevention of recurrent venous thrombosis: 2 - 3 D) Prevention of arterial thromboembolism including patients with mechanical heart valves: 3 - 4.5 Performed By: #### C K, BMP, PT, BNP, DDIMER, CBC, HS TROP ####[facility] [place] [address] [facility] PT Coag (PPP) [Time] 11.1 s Normal 9.0-12.9 [facility] Comment on above: Result Comment: A he matocrit value greater than 55% may lead to inaccurate results in coagulation testing. Patients having hematocrit values >55% require a special collection tube for coagulation studies. Please contact the laboratory at [phone] for redraw instructions. Performed By: #### C K, BMP, PT, BNP, DDIMER, CBC, HS TROP ####[facility] [id number] [place] [address] [facility] Prothrombin time (PT)Ordered By: Peg Ruiz on 09-17-2024 PT Coag (PPP) [Time] Prothrombin time (PT) 9.0- 12.9 [facility] Comment on above: A hematocrit value g reater than 55% may lead to inaccurate results in coagulation testing. Patients having hematocrit values >55% require a special collection tube for coagulation studies. Please contact the laboratory at [phone] for redraw instructions. RBC Auto (Bld) [#/Vol]Ordere d By: Peg Ruiz on 09-17-2024 RBC (Bld) [#/Vol] Erythrocytes [#/volu me] in Blood by Automated count 3.60-5.00 [facility] Serum or plasma anion gap de terminationOrdered By: Peg Ruiz on 09-17-2024 Anion gap [Moles/Vol] Serum or plasma an ion gap determination 6.0-15.0 [facility] Sodium [Moles/volume] in Ser um or PlasmaOrdered By: Peg Ruiz on 09-17-2024 Sodium [Moles/Vol] Sodium [Moles/volume ] in Serum or Plasma 136-145 [facility] Specific gravity Test strip (U) [Rel density]Ordered By: Peg Ruiz on 09-17-2024 Specific gravity (U) [Rel density] Specific gravity of Urine by Test strip 1.001-1.03 0 [facility] Troponin I High Sensitivityo n 09-17-2024 Troponin I High Sensitivity <3 Normal 0-15 [facility] Comment on above: Result Comment: The Troponin units of report have been changed to meet the Chest Pain Accreditation requirement, element EC5.M1l2. Troponin units are changed from pg/ml to ng/L. Also, the decimal is removed and results are in whole numbers. PERFORMED BY: [facility] [address] [place] [address] PATHOLOGIST [employer] SALES CONSULTANT RAFIA LOPEZ M.D. Performed By: #### C K, BMP, PT, BNP, DDIMER, CBC, HS TROP ####[facility] [id number] Troponin I.cardiac [Mass/vol ume] in Serum or Plasma by Detection limit <= 0.01 ng/Ordered By: Peg Ruiz on 09-17-2024 Troponin I.cardiac DL <= 0.01 ng/mL [Mass/Vol] Troponin I.cardiac [Mass/volume] in Serum or Plasma by Detection limit <= 0.01 ng/ 0-15 [facility] Comment on above: The Troponin units o f report have been changed to meet the Chest Pain Accreditation requirement, element EC5.M1l2. Troponin units are changed from pg/ml to ng/L. Also, the decimal is removed and results are in whole numbers. Urea nitrogen [Mass/volume] in Serum or PlasmaOrdered By: Peg Ruiz on 09-17-2024 Urea nitrogen [Mass/Vol] Urea nitrogen [Mass/volume] in Serum or Plasma 7-25 [facility] Urobilinogen Test strip (U) [Mass/Vol]Ordered By: Peg Ruiz on 09-17-2024 Urobilinogen (U) [Mass/Vol] Urobilinogen [Mass/volume] in Urine by Test strip Normal [facility] WBC Auto (Bld) [#/Vol]Ordere d By: Peg Ruiz on 09-17-2024 WBC (Bld) [#/Vol] Leukocytes [#/volume ] in Blood by Automated count 3.8-11.6 [facility] X-ray reportOrdered By: Larry Heath on 09-17-2024 Study report [facility] [address] [place] [id number] XRay Report Signed Patient: Brittanie Garcia MR# : [id number] : 1985 Acct:[id number] Age/Sex: 39 / F ADM Date: 5 Loc: ER Room: Type: [facility] ER Attending Dr: Copies to: Peg Ruiz DO~ Ordering Provider: Peg Ruiz DO Date of Service: 09/17/24 XR/XR chest 2V*: Chest Pain Chest 2 views CLINICAL HISTORY: Chest tightness left arm pain COMPARISON: Chest 08/01/2024 FINDINGS: Heart normal size. Lungs are clear. No free air. XR/XR chest 2V* IMPRESSION: NO ACUTE CARDIOPULMONARY ABNORMALITY. Impression dictated by: Prince Heath Jr., D.OLatisha 09/17/2024 8:28 AM Dictation Location: [place] [address] Transcribed By: [facility] 09/17/24827 Dictated By: Prince Heath Jr, DO 09/17/24 0828 Signed By: 09/17/24 0828 [facility] XR chest 2V*on 09-17-2024 XR chest 2V* [place] [id number] XRay Report Signed Patient: Brittanie Garcia MR#: [id number] : 1985 Acct:[id number] Age/Sex: 39 / F ADM Date: 09/17/24 Loc: ER Room: Type: [facility] ER Attending Dr: Copies to: Peg Ruiz DO Ordering Provider: Peg Ruiz DO Date of Service: 09/17/24 XR/XR chest 2V*: Chest Pain Chest 2 views CLINICAL HISTORY: Chest tightness left arm pain COMPARISON: Chest 08/01/2024 FINDINGS: Heart normal size. Lungs are clear. No free air. XR/XR chest 2V* IMPRESSION: NO ACUTE CARDIOPULMONARY ABNORMALITY. Impression dictated by: Prince Heath Jr., DLatishaOLatisha 09/17/2024 8:28 AM Dictation Location: [place] [address] Transcribed By: [facility] 09/17/24827 Dictated By: Prince Heath Jr, DO 09/17/24827 Signed By: 09/17/24827 Normal [facility] pH Test strip (U)Ordered By: Peg Ruiz on 09-17-2024 pH (U) pH of Urine by Test strip 5.0-9.0 [facility] Alanine aminotransferase [En zymatic activity/volume] in Serum or PlasmaOrdered By: Luis Goins on 08-01-2024 ALT [Catalytic activity/Vol] Alanine aminotransferase [Enzymatic activity/volume] in Serum or Plasma 7-52 [facility] Albumin [Mass/volume] in Ser um or Plasma by Bromocresol green (BCG) dye binding methoOrdered By: Luis Goins on 08-01-2024 Albumin BCG dye [Mass/Vol] Albumin [Mass/volume] in Serum or Plasma by Bromocresol green (BCG) dye binding metho 3.5-5.7 [facility] Alkaline phosphatase [Enzyma tic activity/volume] in Serum or PlasmaOrdered By: Luis Goins on 08-01-2024 ALP [Catalytic activity/Vol] Alkaline phosphatase [Enzymatic activity/volume] in Serum or Plasma 34-104 [facility] Appearance of UrineOrdered B y: Luis Goins on 08-01-2024 Appearance (U) Urine appearance Clear [facility] Aspartate aminotransferase [ Enzymatic activity/volume] in Serum or PlasmaOrdered By: Luis Goins on 08-01-2024 AST [Catalytic activity/Vol] Aspartate aminotransferase [Enzymatic activity/volume] in Serum or Plasma 13-39 [facility] Bacteria [Presence] in Urine by AutomatedOrdered By: Luis Goins on 08-01-2024 Bacteria Auto Ql (U) Bacteria [Presence] in Urine by Automated High None Seen [facility] Basophils Auto (Bld) [#/Vol] Ordered By: Luis Goins on 08-01-2024 Basophils (Bld) [#/Vol] Automated basophil count 0.0-0.2 [facility] Basophils/100 WBC Auto (Bld) Ordered By: Luis Goins on 08-01-2024 Basophils/100 WBC (Bld) Automated basophil % . [facility] Bilirubin Test strip Ql (U)O rdered By: Luis Goins on 08-01-2024 Bilirubin Ql (U) Bilirubin.total [Pre sence] in Urine by Test strip Negative [facility] Bilirubin.total [Mass/volume ] in Serum or PlasmaOrdered By: Luis Goins on 08-01-2024 Bilirubin [Mass/Vol] Bilirubin.total [Mass/volume] in Serum or Plasma 0.3-1.0 [facility] COVID Cepheid NegativeOrdere d By: Luis Goins on 08-01-2024 SARS-CoV-2 (COVID-19) Ab IA Ql COVID Cepheid Negative [facility] Comment on above: This is a duplicate Cepheid Xpert Xpress CoV-2/Flu/RSV Plus RNA by RT-PCR result to be used for statistical tracking purpose only. COVID-19 / Flu A/B / RSV PCR on 08-01-2024 SARS-CoV-2 (COVID-19) RNA LISBETH+probe Ql (Unsp spec) COVID-19 Cepheid Result Negative for SARS-CoV-2 RNA by RT-PCR Flu A Cepheid Result Positive for Flu A RNA by RT-PCR Flu B Cepheid Result Negative for Flu B RNA by RT-PCR RSV Cepheid Result Negative for RSV RNA by RT-PCR COVID19 Blank Space Reference: Negative COVID19 Blank Space Cepheid Disclaimer The Cepheid Xpert Xpress CoV-2/Flu/RSV Plus has Cepheid Disclaimer not been FDA cleared or approved; this test has Cepheid Disclaimer been authorized by FDA under an EUA for use by Cepheid Disclaimer authorized laboratories; this test has been Cepheid Disclaimer authorized only for the simultaneous qualitative Cepheid Disclaimer detection and differentiation of nucleic acids from Cepheid Disclaimer SARS-CoV-2, influenza A, influenza B, and Cepheid Disclaimer respiratory syncytial virus (RSV), and not for any Cepheid Disclaimer other viruses or pathogens; and this test is only Cepheid Disclaimer authorized for the duration of the declaration that Cepheid Disclaimer circumstances exist justifying the authorization of Cepheid Disclaimer emergency use of in vitro diagnostic tests for Cepheid Disclaimer detection and/or diagnosis of COVID-19 under Cepheid Disclaimer Section 564(b)(1) of the Act, 21 U.S.C. 360bbb- Cepheid Disclaimer 3(b)(1), unless the authorization is terminated or Cepheid Disclaimer revoked sooner. PERFORMED BY: [facility] [address] [place] [id number] PATHOLOGIST [employer] SALES CONSULTANT RAFIA Baez [facility] Comment on above: Performed By: #### C EPHEID NEG, ADDONUAPLUS, COVID19 FLU RSV ####[facility] [address] [place] [address] [facility] Calcium [Mass/volume] in Ser um or PlasmaOrdered By: Luis Goins on 08-01-2024 Calcium [Mass/Vol] Calcium [Mass/volume ] in Serum or Plasma 8.6-10.3 [facility] Carbon dioxide, total [Moles /volume] in Serum or PlasmaOrdered By: Luis Goins on 08-01-2024 CO2 [Moles/Vol] Carbon dioxide, tota l [Moles/volume] in Serum or Plasma 21.0-31.0 [facility] Cepheid COVID PCR Negativeon 08-01-2024 SARS-CoV-2 (COVID-19) RNA LISBETH+probe Ql (Unsp spec) Negative Normal Negative [facility] Comment on above: Result Comment: This is a duplicate AnovaStorm Xpert Xpress CoV-2/Flu/RSV Plus RNA by RT-PCR result to be used for statistical tracking purpose only. PERFORMED BY: [address] [place] [id number] PATHOLOGIST [employer] SALES CONSULTANT RAFIA LOPEZ M.D. Performed By: #### C EPHEID NEG, ADDONUAPLUS, COVID19 FLU RSV ####[place] [id number] [place] Chloride [Moles/volume] in S leticia or PlasmaOrdered By: Luis Goins on 08-01-2024 Chloride [Moles/Vol] Chloride [Moles/vol ume] in Serum or Plasma 98-107 [facility] Color Auto (U)Ordered By: Yony Goins on 08-01-2024 Color (U) Color of Urine by Auto Yellow Fi [facility] Complete Blood Count Auto Di ffon 08-01-2024 Basophils (Bld) [#/Vol] 0.0 10*3/uL Normal 0.0-0.2 [facility] Comment on above: Result Comment: PERF ORMED BY: [facility] [address] [place] [id number] PATHOLOGIST [employer] SALES CONSULTANT RAFIA LOPEZ M.D. Performed By: #### C BC, CMP ####[place] [id number] [facility] Basophils/100 WBC (Bld) 0.7 % Normal . [facility] Comment on above: Performed By: #### C BC, CMP ####[place] [id number] [place] Eosinophils (Bld) [#/Vol] 0.0 10*3/uL Normal 0.0-0.45 [facility] Comment on above: Performed By: #### C BC, CMP ####[address] [address] [place] Eosinophils/100 WBC (Bld) 0.4 % Normal . [facility] Comment on above: Performed By: #### C TAVO, CMP ####[address] Erythrocyte distribution width (RBC) [Ratio] 13.3 % Normal 11.9-15.3 [facility] Comment on above: Performed By: #### C TAVO, CMP ####[address] Hematocrit (Bld) [Volume fraction] 39.8 % Normal 34.0-46.4 [facility] Comment on above: Performed By: #### C TAVO, CMP ####[address] Hemoglobin (Bld) [Mass/Vol] 13.4 g/dL Normal 11.8-15.4 [facility] Comment on above: Performed By: #### C TAVO, CMP ####[address] Lymphocytes (Bld) [#/Vol] 1.1 10*3/uL Normal 1.00-4.8 [facility] Comment on above: Performed By: #### C TAVO, CMP ####[address] Lymphocytes/100 WBC (Bld) 44.4 % Normal . [facility] Comment on above: Performed By: #### C TAVO, CMP ####[address] MCH (RBC) [Entitic mass] 29.3 pg Normal 24.7-34.3 [facility] Comment on above: Performed By: #### C TAVO, CMP ####[address] MCV (RBC) [Entitic vol] 86.8 fL Normal 80-100 [facility] Comment on above: Performed By: #### C TAVO, CMP ####[address] Mean Corpuscular HGB Conc 33.7 g/dL Normal 32.0-35.0 [facility] Comment on above: Performed By: #### C BC, CMP ####[address] Monocytes (Bld) [#/Vol] 0.3 10*3/uL Normal 0.0-0.8 [facility] Comment on above: Performed By: #### C BC, CMP ####[address] Monocytes/100 WBC (Bld) 26.77 % High 0.00-20.00 [facility] Comment on above: Result Comment: For adults in ED, MDW > 20.0 may be associated with a higher risk of sepsis during the first 12 hrs of hospital admission Performed By: #### C BC, CMP ####[address] Monocytes/100 WBC (Bld) 11.1 % Normal . [facility] Comment on above: Performed By: #### C BC, CMP ####[address] Neutrophils (Bld) [#/Vol] 1.1 10*3/uL Low 1.8-7.7 [facility] Comment on above: Performed By: #### C BC, CMP ####[address] Neutrophils/100 WBC (Bld) 43.4 % Normal . [facility] Comment on above: Performed By: #### C BC, CMP ####[address] NRBC% 0.3 /100{WBC} Normal 0-0.5 [facility] Comment on above: Performed By: #### C BC, CMP ####[address] Platelet mean volume (Bld) [Entitic vol] 7.7 fL Normal 6.3-10.7 [facility] Comment on above: Performed By: #### C BC, CMP ####[address] [address] [facility] Platelets (Bld) [#/Vol] 196 10*3/uL Normal 150-450 [facility] Comment on above: Performed By: #### C BC, CMP ####[place] [id number] [facility] RBC (Bld) [#/Vol] 4.58 10*6/uL Normal 3.60-5.00 [facility] Comment on above: Performed By: #### C BC, CMP ####[place] [id number] [facility] WBC (Bld) [#/Vol] 2.5 10*3/uL Low 3.8-11.6 [facility] Comment on above: Performed By: #### C TAVO, CMP ####[place] [id number] [facility] Comprehensive Metabolic Pane pedro 08-01-2024 Albumin [Mass/Vol] 4.2 g/dL Normal 3.5-5.7 [facility] Comment on above: Performed By: #### C TAVO, CMP ####[place] [id number] [facility] Albumin/Globulin [Mass ratio] 1.5 {ratio} Normal [facility] Comment on above: Performed By: #### C TAVO, CMP ####[place] [id number] [facility] ALP [Catalytic activity/Vol] 58 U/L Normal 34-104 [facility] Comment on above: Performed By: #### C BC, CMP ####[place] [id number] [facility] ALT [Catalytic activity/Vol] 22 U/L Normal 7-52 [facility] Comment on above: Performed By: #### C BC, CMP ####[place] [id number] [facility] Anion gap [Moles/Vol] 10.6 mmol/L Normal 6.0-15.[address] [facility] Comment on above: Performed By: #### C BC, CMP ####[address] [address] [facility] AST [Catalytic activity/Vol] 23 U/L Normal 13-39 [facility] Comment on above: Performed By: #### C BC, CMP ####[address] [address] [facility] Bilirubin [Mass/Vol] 0.3 mg/dL Normal 0.3-1.0 [facility] Comment on above: Performed By: #### C BC, CMP ####[place] [id number] [facility] Calcium [Mass/Vol] 8.8 mg/dL Normal 8.6-10.3 [facility] Comment on above: Performed By: #### C BC, CMP ####[place] [id number] [facility] Chloride [Moles/Vol] 106 mmol/L Normal 98-107 [facility] Comment on above: Performed By: #### C BC, CMP ####[place] [id number] [facility] CO2 [Moles/Vol] 27.0 mmol/L Normal 21.0-31.0 [facility] Comment on above: Performed By: #### C BC, CMP ####[place] [id number] [facility] Creatinine [Mass/Vol] 0.88 mg/dL Normal 0.60-1.20 [facility] Comment on above: Performed By: #### C BC, CMP ####[place] [id number] [facility] Creatinine Clr Calc Pharmacy 82.02 Normal [facility] Comment on above: Result Comment: PERF ORMED BY: [facility] [address] [place] [id number] PATHOLOGIST [employer] CONSULTANT RAFIA LOPEZ M.D. Performed By: #### C BC, CMP ####[place] [id number] [place] GFR/1.73 sq M.predicted MDRD (S/P/Bld) [Vol rate/Area] mL/min/{1.73_m2} Normal [facility] Comment on above: Performed By: #### C BC, CMP ####[place] [id number] [facility] Globulin (S) [Mass/Vol] 2.8 g/dL Normal [facility] Comment on above: Performed By: #### C BC, CMP ####[place] [id number] [facility] Glucose [Mass/Vol] 87 mg/dL Normal 70-100 [facility] Comment on above: Result Comment: [facility] Glucose Reference Range is dependent on time and content of last meal. Glucose of more than 200 mg/dL in a nonstressed, ambulatory subject supports the diagnosis of Diabetes Mellitus. ADA recommended reference range Performed By: #### C BC, CMP ####[address] Potassium [Moles/Vol] 3.6 mmol/L Normal 3.5-5.1 [facility] Comment on above: Performed By: #### C BC, CMP ####[place] [id number] [facility] Protein [Mass/Vol] 7.0 g/dL Normal 6.4-8.9 [facility] Comment on above: Performed By: #### C BC, CMP ####[place] [id number] [facility] Sodium [Moles/Vol] 140 mmol/L Normal 136-145 [facility] Comment on above: Performed By: #### C BC, CMP ####[place] [id number] [facility] Urea nitrogen [Mass/Vol] 8 mg/dL Normal 7-25 [facility] Comment on above: Performed By: #### C BC, CMP ####[place] [id number] [facility] Creatinine [Mass/volume] in Serum or PlasmaOrdered By: Luis Goins on 08-01-2024 Creatinine [Mass/Vol] Creatinine [Mass/v olume] in Serum or Plasma 0.60-1.20 [facility] Dipstick and Microscopicon 0 08-01-2024 Appearance (U) Clear Normal Clear [facility] Comment on above: Order Comment: Name Collection Type:: Voided Performed By: #### C EPHEID NEG, ADDONUAPLUS, COVID19 FLU RSV ####[address] [address] [facility] Bacteria,Urine 1+ High None Seen [facility] Comment on above: Order Comment: Name Collection Type:: Voided Performed By: #### C EPHEID NEG, ADDONUAPLUS, COVID19 FLU RSV ####[address] [address] [facility] Bilirubin,Urine Negative Normal Negative [facility] Comment on above: Order Comment: Name Collection Type:: Voided Performed By: #### C EPHEID NEG, ADDONUAPLUS, COVID19 FLU RSV ####[address] [address] [facility] Color (U) Light-Yellow Normal Yellow [facility] Comment on above: Order Comment: Name Collection Type:: Voided Performed By: #### C EPHEID NEG, ADDONUAPLUS, COVID19 FLU RSV ####[address] [address] [facility] Glucose Ql (U) Normal Normal Normal [facility] Comment on above: Order Comment: Name Collection Type:: Voided Performed By: #### C EPHEID NEG, ADDONUAPLUS, COVID19 FLU RSV ####[address] [address] [facility] Hyaline Casts,Urine None Normal 0-8 [facility] Comment on above: Order Comment: Name Collection Type:: Voided Performed By: #### C EPHEID NEG, ADDONUAPLUS, COVID19 FLU RSV ####[address] [address] [facility] Ketones Ql (U) Negative Normal Negative [facility] Comment on above: Order Comment: Name Collection Type:: Voided Performed By: #### C EPHEID NEG, ADDONUAPLUS, COVID19 FLU RSV ####[address] Leukocyte esterase Test strip Ql (U) 3+ High Negative [facility] Comment on above: Order Comment: Name Collection Type:: Voided Performed By: #### C EPHEID NEG, ADDONUAPLUS, COVID19 FLU RSV ####[address] Mucus,Urine 1+ Critically abnormal [facility] Comment on above: Order Comment: Name Collection Type:: Voided Result Comment: PERF ORMED BY: [place] [address] PATHOLOGIST [employer] SALES CONSULTANT RAFIA LOPEZ M.D. Performed By: #### C EPHEID NEG, ADDONUAPLUS, COVID19 FLU RSV ####[address] Nitrite,Urine Negative Normal Negative [facility] Comment on above: Order Comment: Name Collection Type:: Voided Performed By: #### C EPHEID NEG, ADDONUAPLUS, COVID19 FLU RSV ####[address] Occult Blood,Urine Negative Normal Negative [facility] Comment on above: Order Comment: Name Collection Type:: Voided Result Comment: PERF ORMED BY: [place] [address] PATHOLOGIST [employer] SALES CONSULTANT RAFIA LOPEZ M.D. Performed By: #### C EPHEID NEG, ADDONUAPLUS, COVID19 FLU RSV ####[address] pH (U) 6.0 [pH] Normal 5.0-9.0 [facility] Comment on above: Order Comment: Name Collection Type:: Voided Performed By: #### C EPHEID NEG, ADDONUAPLUS, COVID19 FLU RSV ####[place] [id number] [facility] Protein,Urine Negative Normal Negative [facility] Comment on above: Order Comment: Name Collection Type:: Voided Performed By: #### C EPHEID NEG, ADDONUAPLUS, COVID19 FLU RSV ####[address] [address] [facility] RBC,Urine 3-4 Normal 0-4 [facility] Comment on above: Order Comment: Name Collection Type:: Voided Performed By: #### C EPHEID NEG, ADDONUAPLUS, COVID19 FLU RSV ####[place] [id number] [facility] Specificy [place],Urine 1.012 Normal 1.001-1.03 0 [facility] Comment on above: Order Comment: Name Collection Type:: Voided Performed By: #### C EPHEID NEG, ADDONUAPLUS, COVID19 FLU RSV ####[address] Squamous Epithelial Cell,Urine 10-19 High 0-2 [facility] Comment on above: Order Comment: Name Collection Type:: Voided Performed By: #### C EPHEID NEG, ADDONUAPLUS, COVID19 FLU RSV ####[place] [id number] [facility] Urobilinogen,Urine Normal Normal Normal [facility] Comment on above: Order Comment: Name Collection Type:: Voided Performed By: #### C EPHEID NEG, ADDONUAPLUS, COVID19 FLU RSV ####[place] [id number] [facility] WBC,Urine 1-2 Normal 0-4 [facility] Comment on above: Order Comment: Name Collection Type:: Voided Performed By: #### C EPHEID NEG, ADDONUAPLUS, COVID19 FLU RSV ####[place] [id number] [facility] Eosinophils Auto (Bld) [#/Vo l]Ordered By: Luis Goins on 08-01-2024 Eosinophils (Bld) [#/Vol] Automated eosinophil count 0.0-0.45 [facility] Eosinophils/100 WBC Auto (Bl d)Ordered By: Luis Goins on 08-01-2024 Eosinophils/100 WBC (Bld) Automated eosinophil % . [facility] Epithelial cells.squamous [# /area] in Urine sediment by Automated countOrdered By: Luis Goins on 08-01-2024 Epithelial cells.squamous Auto (Urine sed) [#/Area] Epithelial cells.squamous [#/area] in Urine sediment by Automated count High 0-2 [facility] Erythrocyte distribution wid th Auto (RBC) [Ratio]Ordered By: Luis Goins on 08-01-2024 Erythrocyte distribution width (RBC) [Ratio] Erythrocyte distribution width [Ratio] by Automated count 11.9-15.3 [facility] Erythrocytes [#/area] in Uri ne sediment by Automated countOrdered By: Luis Goins on 08-01-2024 RBC Auto (Urine sed) [#/Area] Erythrocytes [#/area] in Urine sediment by Automated count 0-4 [facility] Globulin Calc (S) [Mass/Vol] Ordered By: Luis Goins on 08-01-2024 Globulin (S) [Mass/Vol] Serum globulin measurement by calculation (mass/volume) [facility] Glucose [Mass/volume] in Ser um or PlasmaOrdered By: Luis Goins on 08-01-2024 Glucose [Mass/Vol] Glucose [Mass/volume ] in Serum or Plasma 70-100 [facility] Comment on above: ADA recommended refe rence rangeRandom Glucose Reference Range is dependent on time and content of last meal. Glucose of more than 200 mg/dL in a nonstressed, ambulatory subject supports the diagnosis of Diabetes Mellitus. Glucose [Mass/volume] in Uri ne by Test stripOrdered By: Luis Goins on 08-01-2024 Glucose Test strip (U) [Mass/Vol] Glucose [Mass/volume] in Urine by Test strip Normal [facility] Hematocrit Auto (Bld) [Volum e fraction]Ordered By: Luis Goins on 08-01-2024 Hematocrit (Bld) [Volume fraction] Hematocrit [Volume Fraction] of Blood by Automated count 34.0-46.4 [facility] Hemoglobin Test strip Ql (U) Ordered By: Luis Goins on 08-01-2024 Hemoglobin Ql (U) Hemoglobin [Presence ] in Urine by Test strip Negative [facility] Hemoglobin [Mass/volume] in BloodOrdered By: Luis Goins on 08-01-2024 Hemoglobin (Bld) [Mass/Vol] Hemoglobin [Mass/volume] in Blood 11.8-15.4 [facility] Hyaline casts [#/area] in Ur ine sediment by Automated countOrdered By: Luis Goins on 08-01-2024 Hyaline casts Auto (Urine sed) [#/Area] Hyaline casts [#/area] in Urine sediment by Automated count 0-8 [facility] Ketones Test strip Ql (U)Ord ered By: Luis Goins on 08-01-2024 Ketones Ql (U) Ketones [Presence] i n Urine by Test strip Negative [facility] Leukocyte esterase [Presence ] in Urine by Test stripOrdered By: Luis Goins on 08-01-2024 Leukocyte esterase Test strip Ql (U) Leukocyte esterase [Presence] in Urine by Test strip High Negative [facility] Leukocytes [#/area] in Urine sediment by Automated countOrdered By: Luis Goins on 08-01-2024 WBC Auto (Urine sed) [#/Area] Leukocytes [#/area] in Urine sediment by Automated count 0-4 [facility] Leukocytes [#/volume] correc harman for nucleated erythrocytes in Blood by Automated counOrdered By: Luis Goins on 08-01-2024 WBC corrected for nucl RBC Auto (Bld) [#/Vol] Leukocytes [#/volume] corrected for nucleated erythrocytes in Blood by Automated coun Low 3.8-11.6 [facility] Lymphocytes Auto (Bld) [#/Vo l]Ordered By: Luis Goins on 08-01-2024 Lymphocytes (Bld) [#/Vol] Lymphocytes [#/volume] in Blood by Automated count 1.00-4.8 [facility] Lymphocytes/100 WBC Auto (Bl d)Ordered By: Luis Goins on 08-01-2024 Lymphocytes/100 WBC (Bld) Lymphocytes/100 leukocytes in Blood by Automated count . [facility] MCH Auto (RBC) [Entitic mass ]Ordered By: Luis Goins on 08-01-2024 MCH (RBC) [Entitic mass] MCH [Entitic mass] by Automated count 24.7-34.3 [facility] MCHC Auto (RBC) [Mass/Vol]Or dered By: Luis Goins on 08-01-2024 MCHC (RBC) [Mass/Vol] MCHC [Mass/volume] by Automated count 32.0-35.0 [facility] MCV Auto (RBC) [Entitic vol] Ordered By: Luis Goins on 08-01-2024 MCV (RBC) [Entitic vol] MCV [Entitic volume] by Automated count 80-100 [facility] Monocyte distribution width [Entitic volume] in Blood by AutomatedOrdered By: Luis Goins on 08-01-2024 Monocyte distribution width Auto (Bld) [Entitic vol] Monocyte distribution width [Entitic volume] in Blood by Automated High 0.00-20.00 [facility] Comment on above: For adults in ED, MD W > 20.0 may be associated with a higher risk of sepsis during the first 12 hrs of hospital admission Monocytes Auto (Bld) [#/Vol] Ordered By: Luis Goins on 08-01-2024 Monocytes (Bld) [#/Vol] Automated blood monocyte count 0.0-0.8 [facility] Monocytes/100 WBC Auto (Bld) Ordered By: Luis Goins on 08-01-2024 Monocytes/100 WBC (Bld) Automated monocyte % . [facility] Mucus [Presence] in Urine by AutomatedOrdered By: Luis Goins on 08-01-2024 Mucus Auto Ql (U) Mucus [Presence] in Urine by Automated Abnormal [facility] Neutrophils Auto (Bld) [#/Vo l]Ordered By: Luis Goins on 08-01-2024 Neutrophils (Bld) [#/Vol] Neutrophils [#/volume] in Blood by Automated count Low 1.8-7.7 [facility] Neutrophils/100 WBC Auto (Bl d)Ordered By: Luis Goins on 08-01-2024 Neutrophils/100 WBC (Bld) Automated neutrophil % . [facility] Nitrite Test strip Ql (U)Ord ered By: Luis Goins on 08-01-2024 Nitrite Ql (U) Nitrite [Presence] i n Urine by Test strip Negative [facility] No Panel InformationOrdered By: Luis Goins on 08-01-2024 Estimated GFR (CKD-EPI) > 60.0 mL/Min [facility] Pharmacy Creatinine Clearance (Chem 82.02 [facility] Nucleated erythrocytes [Pres ence] in Blood by Automated countOrdered By: Luis Goins on 08-01-2024 Nucleated RBC Auto Ql (Bld) Nucleated erythrocytes [Presence] in Blood by Automated count 0-0.5 [facility] Platelet mean volume Auto (B ld) [Entitic vol]Ordered By: Luis Goins on 08-01-2024 Platelet mean volume (Bld) [Entitic vol] Platelet mean volume [Entitic volume] in Blood by Automated count 6.3-10.7 [facility] Platelets Auto (Bld) [#/Vol] Ordered By: Luis Goins on 08-01-2024 Platelets (Bld) [#/Vol] Platelets [#/volume] in Blood by Automated count 150-450 [facility] Potassium [Moles/volume] in Serum or PlasmaOrdered By: Luis Goins on 08-01-2024 Potassium [Moles/Vol] Potassium [Moles/v olume] in Serum or Plasma 3.5-5.1 [facility] Protein Test strip (U) [Mass /Vol]Ordered By: Luis Goins on 08-01-2024 Protein (U) [Mass/Vol] Protein [Mass/vol ume] in Urine by Test strip Negative [facility] Protein [Mass/volume] in Ser um or PlasmaOrdered By: Luis Goins on 08-01-2024 Protein [Mass/Vol] Protein [Mass/volume ] in Serum or Plasma 6.4-8.9 [facility] RBC Auto (Bld) [#/Vol]Ordere d By: Luis Goins on 08-01-2024 RBC (Bld) [#/Vol] Erythrocytes [#/volu me] in Blood by Automated count 3.60-5.00 [facility] Respiratory specimen influen za A virus, influenza B virus, respiratory syncytical virOrdered By: Luis Goins on 08-01-2024 SARS-CoV-2 (COVID-19) RNA LISBETH+probe Ql (Unsp spec) Respiratory specimen influenza A virus, influenza B virus, respiratory syncytical vir [facility] Serum or plasma albumin/glob ulin mass ratioOrdered By: Luis Goins on 08-01-2024 Albumin/Globulin [Mass ratio] Serum or plasma albumin/globulin mass ratio [facility] Serum or plasma anion gap de terminationOrdered By: Luis Goins on 08-01-2024 Anion gap [Moles/Vol] Serum or plasma an ion gap determination 6.0-15.0 [facility] Sodium [Moles/volume] in Ser um or PlasmaOrdered By: Luis Goins on 08-01-2024 Sodium [Moles/Vol] Sodium [Moles/volume ] in Serum or Plasma 136-145 [facility] Specific gravity Test strip (U) [Rel density]Ordered By: Luis Goins on 08-01-2024 Specific gravity (U) [Rel density] Specific gravity of Urine by Test strip 1.001-1.03 0 [facility] Urea nitrogen [Mass/volume] in Serum or PlasmaOrdered By: Luis Goins on 08-01-2024 Urea nitrogen [Mass/Vol] Urea nitrogen [Mass/volume] in Serum or Plasma 7-25 [facility] Urobilinogen Test strip (U) [Mass/Vol]Ordered By: Luis Goins on 08-01-2024 Urobilinogen (U) [Mass/Vol] Urobilinogen [Mass/volume] in Urine by Test strip Normal [facility] WBC Auto (Bld) [#/Vol]Ordere d By: Luis Goins on 08-01-2024 WBC (Bld) [#/Vol] Leukocytes [#/volume ] in Blood by Automated count Low 3.8-11.6 [facility] X-ray reportOrdered By: Larry Heath on 08-01-2024 Study report [facility] [place] [address] XRay Report Signed Patient: Brittanie Garcia MR# : [id number] : 1985 Acct:[id number] Age/Sex: 39 / F ADM Date: 5 Loc: ER Room: Type: [facility] ER Attending Dr: Copies to: DARLING Myrick Ordering Provider: Luis Goins DO Date of Service: 08/01/24 XR/XR chest 2V*: Upper Respiratory Infection ([id number]) XR/XR lumbar spine 2-3V*: Upper Respiratory Infection Chest 2 views, lumbar spine 2 views CLINICAL HISTORY: Congestion for 4 days. Low back pain for 4 days. COMPARISON: None FINDINGS: Chest: Heart is normal in size. 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 No consolidation pneumothorax pleural effusion or free air. Lumbar spine: Vertebral body and disc space heights appear maintained. Facet joints appear unremarkable. SI joints appear unremarkable. XR/XR chest 2V* IMPRESSION: CHEST DEMONSTRATES BIBASILAR ATELECTASIS. NO CONSOLIDATION TO SUGGEST PNEUMONIA. LUMBAR SPINE DEMONSTRATES NO ACUTE BONY PROCESS OR SIGNIFICANT DEGENERATIVE CHANGE. Impression dictated by: Prince Heath Jr., D.O.08/01/2024 9:17 AM Dictation Location: [place] [address] Transcribed By: [facility] 08/01/24 0917 Dictated By: Prince Heath Jr, DO 08/01/24 0916 Signed By: 08/01/24 0917 [facility] XR lumbar spine 2-3V*on 07-19 XR lumbar spine 2-3V* [facility] Main [place] [address] [place] [address] XRay Report Signed Patient: Brittanie Garcia MR#: [id number] : 1985 Acct:[id number] Age/Sex: 39 / F ADM Date: 08/01/24 Loc: ER Room: Type: [facility] ER Attending Dr: Copies to: Luis Goins DO Ordering Provider: Luis Goins DO Date of Service: 08/01/24 XR/XR chest 2V*: Upper Respiratory Infection ([id number]) XR/XR lumbar spine 2-3V*: Upper Respiratory Infection Chest 2 views, lumbar spine 2 views CLINICAL HISTORY: Congestion for 4 days. Low back pain for 4 days. COMPARISON: None FINDINGS: Chest: Heart is normal in size. 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 No consolidation pneumothorax pleural effusion or free air. Lumbar spine: Vertebral body and disc space heights appear maintained. Facet joints appear unremarkable. SI joints appear unremarkable. XR/XR chest 2V* IMPRESSION: CHEST DEMONSTRATES BIBASILAR ATELECTASIS. NO CONSOLIDATION TO SUGGEST PNEUMONIA. LUMBAR SPINE DEMONSTRATES NO ACUTE BONY PROCESS OR SIGNIFICANT DEGENERATIVE CHANGE. Impression dictated by: Prince Heath Jr., Jeannette08/01/2024 9:17 AM Dictation Location: [place] [address] Transcribed By: [facility] 08/01/24916 Dictated By: Prince Heath Jr, DO 08/01/24915 Signed By: 08/01/24916 Normal [facility] pH Test strip (U)Ordered By: Luis Goins on 08-01-2024 pH (U) pH of Urine by Test strip 5.0-9.0 [facility] CNOVon 07-30-2024 CNOV Office Visit ([facility] ) BRITTANIE GARCIA ([id number]) 1985 F Date Time Provider Department 07/30/24 4:30 PM HARMAN SULLIVAN [facility] During your visit today, we recorded the following information about you: Pulse Blood pressure Weight Height 106/minute 128/82 75 kg 1.575 m Harman Sullivan MD 07/30/2024 4:57 PM Signed BOTOX PREEMPT PROTOCOL Total headache [...] brought in by patient? No Lot #: [id number] Exp: 09/2026 Dilution: 5 units/0.1 ml (100 [...] Optional follow pain # units L R Assembly Instructions Writer 10 units divided in 2 sites [id number] [...] Harman Sullivan MD Referring Provider: HARMAN SULLIVAN [[id number]] Allergies As of Date: 07/30/2024 Noted Allergy Reaction DHE 06/13/2012 12 - Shortness of Breath ADHESIVE 07/28/2022 2 - Rash 14 - Other: See Comments Comments: Rash and blisters CAFFEINE 06/13/2012 11 - Vomiting DROPERIDOL 07/30/2024 14 - Other: See Comments Comments: Severe restless leg flare up METOPROLOL 05/01/2023 7 - Swelling Date Reviewed: 07/30/2024 Reviewed by: Manolo Luther MA - Fully Assessed Reason for Visit: Botox Injection [373] Primary Visit Diagnosis:Chronic migraine without aura, with intractable migraine, so stated, with status migrainosus [G43.711] Other Visit Diagnosis:Neck pain [M54.2] Order(s):[] onabotulinum toxin type A 200 Units injection (BOTOX)Disp: Rfl: Prescriptions as of 07/30/2024 - tiZANidine (ZANAFLEX) 4 mg tablet Take 8 mg by mouth daily at bedtime. - traMADol (ULTRAM) 50 mg tablet Take 50 mg by mouth. - baclofen 10 mg tablet Take 1 [...] at bedtime. Problem List As Of Date: 07/30/2024 (None) Prescriptions ordered this encounter Disp Refills Start End ONABOTULINUMTOXINA 100 UNIT SOLUTION* 07/30/2024 07/30/2024 Route: INTRAMUSCULA Disposition: Return in about 6 months (around 01/30/2025) for Botox. Follow-up and Disposition History for Encounter Date Provider Department Center 07/30/2024 [id number], TED [facility] Encounter Status:Closed by HARMAN SULLIVAN on 07/30/24 Normal [facility] Alanine aminotransferase [En zymatic activity/volume] in Serum or PlasmaOrdered By: Babar Singh on 06-19-2024 ALT [Catalytic activity/Vol] Alanine aminotransferase [Enzymatic activity/volume] in Serum or Plasma High 7-52 [facility] Albumin [Mass/volume] in Ser um or Plasma by Bromocresol green (BCG) dye binding methoOrdered By: Babar Singh on 06-19-2024 Albumin BCG dye [Mass/Vol] Albumin [Mass/volume] in Serum or Plasma by Bromocresol green (BCG) dye binding metho 3.5-5.7 [facility] Alkaline phosphatase [Enzyma tic activity/volume] in Serum or PlasmaOrdered By: Babra Singh on 06-19-2024 ALP [Catalytic activity/Vol] Alkaline phosphatase [Enzymatic activity/volume] in Serum or Plasma 34-104 [facility] Appearance of UrineOrdered B y: PROVIDER TEMP on 06-19-2024 Appearance (U) Urine appearance Abnormal Clear [facility] Aspartate aminotransferase [ Enzymatic activity/volume] in Serum or PlasmaOrdered By: Babar Singh on 06-19-2024 AST [Catalytic activity/Vol] Aspartate aminotransferase [Enzymatic activity/volume] in Serum or Plasma High 13-39 [facility] Bacteria [Presence] in Urine by AutomatedOrdered By: PROVIDER TEMP on 06-19-2024 Bacteria Auto Ql (U) Bacteria [Presence] in Urine by Automated None Seen [facility] Basophils Auto (Bld) [#/Vol] Ordered By: Babar Singh on 06-19-2024 Basophils (Bld) [#/Vol] Automated basophil count 0.0-0.2 [facility] Basophils/100 WBC Auto (Bld) Ordered By: Babar Singh on 06-19-2024 Basophils/100 WBC (Bld) Automated basophil % . [facility] Bilirubin Test strip Ql (U)O rdered By: PROVIDER TEMGeorges on 06-19-2024 Bilirubin Ql (U) Bilirubin.total [Pre sence] in Urine by Test strip Negative [facility] Bilirubin.total [Mass/volume ] in Serum or PlasmaOrdered By: Babar Singh on 06-19-2024 Bilirubin [Mass/Vol] Bilirubin.total [Mass/volume] in Serum or Plasma 0.3-1.0 [facility] Calcium [Mass/volume] in Ser um or PlasmaOrdered By: Babar Singh on 06-19-2024 Calcium [Mass/Vol] Calcium [Mass/volume ] in Serum or Plasma 8.6-10.3 [facility] Carbon dioxide, total [Moles /volume] in Serum or PlasmaOrdered By: Babar Singh on 06-19-2024 CO2 [Moles/Vol] Carbon dioxide, tota l [Moles/volume] in Serum or Plasma 21.0-31.0 [facility] Chloride [Moles/volume] in S leticia or PlasmaOrdered By: Babar Singh on 06-19-2024 Chloride [Moles/Vol] Chloride [Moles/vol ume] in Serum or Plasma 98-107 [facility] Color Auto (U)Ordered By: IGLESIA BARILLAS TEMP on 06-19-2024 Color (U) Color of Urine by Auto Yellow Fi [facility] Complete Blood Count Auto Di ffon 06-19-2024 Basophils (Bld) [#/Vol] 0.0 10*3/uL Normal 0.0-0.2 [facility] Comment on above: Result Comment: PERF ORMED BY: [facility] [address] [place] [address] PATHOLOGIST [employer] RAFIA LOPEZ M.D. Performed By: #### C K, HS TROP, CBC, CMP ####[address] Basophils/100 WBC (Bld) 0.3 % Normal . [facility] Comment on above: Performed By: #### C K, HS TROP, CBC, CMP ####[address] Eosinophils (Bld) [#/Vol] 0.1 10*3/uL Normal 0.0-0.45 [facility] Comment on above: Performed By: #### C K, HS TROP, CBC, CMP ####[address] Eosinophils/100 WBC (Bld) 1.4 % Normal . [facility] Comment on above: Performed By: #### C K, HS TROP, CBC, CMP ####[address] Erythrocyte distribution width (RBC) [Ratio] 13.7 % Normal 11.9-15.3 [facility] Comment on above: Performed By: #### C K, HS TROP, CBC, CMP ####[address] Hematocrit (Bld) [Volume fraction] 41.7 % Normal 34.0-46.4 [facility] Comment on above: Performed By: #### C K, HS TROP, CBC, CMP ####[place] [address] [place] Hemoglobin (Bld) [Mass/Vol] 14.0 g/dL Normal 11.8-15.4 [facility] Comment on above: Performed By: #### C K, HS TROP, CBC, CMP ####[address] Lymphocytes (Bld) [#/Vol] 1.4 10*3/uL Normal 1.00-4.8 [facility] Comment on above: Performed By: #### C K, HS TROP, CBC, CMP ####[address] Lymphocytes/100 WBC (Bld) 15.4 % Normal . [facility] Comment on above: Performed By: #### C K, HS TROP, CBC, CMP ####[address] MCH (RBC) [Entitic mass] 29.2 pg Normal 24.7-34.3 [facility] Comment on above: Performed By: #### C K, HS TROP, CBC, CMP ####[address] MCV (RBC) [Entitic vol] 87.0 fL Normal 80-100 [facility] Comment on above: Performed By: #### C K, HS TROP, CBC, CMP ####[address] Mean Corpuscular HGB Conc 33.6 g/dL Normal 32.0-35.0 [facility] Comment on above: Performed By: #### C K, HS TROP, CBC, CMP ####[address] Monocytes (Bld) [#/Vol] 0.4 10*3/uL Normal 0.0-0.8 [facility] Comment on above: Performed By: #### C K, HS TROP, CBC, CMP ####[address] Monocytes/100 WBC (Bld) 19.28 % Normal 0.00-20.00 [facility] Comment on above: Performed By: #### C K, HS TROP, CBC, CMP ####[address] Monocytes/100 WBC (Bld) 4.5 % Normal . [facility] Comment on above: Performed By: #### C K, HS TROP, CBC, CMP ####[address] Neutrophils (Bld) [#/Vol] 7.3 10*3/uL Normal 1.8-7.7 [facility] Comment on above: Performed By: #### C K, HS TROP, CBC, CMP ####[address] Neutrophils/100 WBC (Bld) 78.4 % Normal . [facility] Comment on above: Performed By: #### C K, HS TROP, CBC, CMP ####[address] NRBC% 0.1 /100{WBC} Normal 0-0.5 [facility] Comment on above: Performed By: #### C K, HS TROP, CBC, CMP ####[address] Platelet mean volume (Bld) [Entitic vol] 7.9 fL Normal 6.3-10.7 [facility] Comment on above: Performed By: #### C K, HS TROP, CBC, CMP ####[address] Platelets (Bld) [#/Vol] 251 10*3/uL Normal 150-450 [facility] Comment on above: Performed By: #### C K, HS TROP, CBC, CMP ####[address] RBC (Bld) [#/Vol] 4.79 10*6/uL Normal 3.60-5.00 [facility] Comment on above: Performed By: #### C K, HS TROP, CBC, CMP ####[address] WBC (Bld) [#/Vol] 9.3 10*3/uL Normal 3.8-11.6 [facility] Comment on above: Performed By: #### C K, HS TROP, CBC, CMP ####[address] Comprehensive Metabolic Pane pedro 06-19-2024 Albumin [Mass/Vol] 4.4 g/dL Normal 3.5-5.7 [facility] Comment on above: Performed By: #### C K, HS TROP, CBC, CMP ####[address] Albumin/Globulin [Mass ratio] 1.5 {ratio} Normal [facility] Comment on above: Performed By: #### C K, HS TROP, CBC, CMP ####[address] ALP [Catalytic activity/Vol] 87 U/L Normal 34-104 [facility] Comment on above: Performed By: #### C K, HS TROP, CBC, CMP ####[address] ALT [Catalytic activity/Vol] 135 U/L High 7-52 [facility] Comment on above: Performed By: #### C K, HS TROP, CBC, CMP ####[address] Anion gap [Moles/Vol] 12.0 mmol/L Normal 6.0-15.0 [facility] Comment on above: Performed By: #### C K, HS TROP, CBC, CMP ####[address] AST [Catalytic activity/Vol] 80 U/L High 13-39 [facility] Comment on above: Performed By: #### C K, HS TROP, CBC, CMP ####[address] Bilirubin [Mass/Vol] 0.7 mg/dL Normal 0.3-1.0 The [facility] Comment on above: Performed By: #### C K, HS TROP, CBC, CMP ####[address] Calcium [Mass/Vol] 9.2 mg/dL Normal 8.6-10.3 [facility] Comment on above: Performed By: #### C K, HS TROP, CBC, CMP ####[address] Chloride [Moles/Vol] 104 mmol/L Normal 98-107 [facility] Comment on above: Performed By: #### C K, HS TROP, CBC, CMP ####[address] CO2 [Moles/Vol] 24.9 mmol/L Normal 21.0-31.0 [facility] Comment on above: Performed By: #### C K, HS TROP, CBC, CMP ####[address] Creatinine [Mass/Vol] 0.87 mg/dL Normal 0.60-1.20 [facility] Comment on above: Performed By: #### C K, HS TROP, CBC, CMP ####[address] Creatinine Clr Calc Pharmacy 83.38 Normal [facility] Comment on above: Result Comment: PERF ORMED BY: [facility] [address] [facility] [place] [address] PATHOLOGIST [employer] CONSULTANT RAFIA LOPEZ M.D. Performed By: #### C K, HS TROP, CBC, CMP ####[address] GFR/1.73 sq M.predicted MDRD (S/P/Bld) [Vol rate/Area] mL/min/{1.73_m2} Normal [facility] Comment on above: Performed By: #### C K, HS TROP, CBC, CMP ####[address] [address] [place] Globulin (S) [Mass/Vol] 3.0 g/dL Normal [facility] Comment on above: Performed By: #### C K, HS TROP, CBC, CMP ####[address] Glucose [Mass/Vol] 90 mg/dL Normal 70-100 [facility] Comment on above: Result Comment: [facility] Glucose Reference Range is dependent on time and content of last meal. Glucose of more than 200 mg/dL in a nonstressed, ambulatory subject supports the diagnosis of Diabetes Mellitus. ADA recommended reference range Performed By: #### C K, HS TROP, CBC, CMP ####[address] Potassium [Moles/Vol] 3.9 mmol/L Normal 3.5-5.1 [facility] Comment on above: Performed By: #### C K, HS TROP, CBC, CMP ####[address] Protein [Mass/Vol] 7.4 g/dL Normal 6.4-8.9 [facility] Comment on above: Performed By: #### C K, HS TROP, CBC, CMP ####[address] Sodium [Moles/Vol] 137 mmol/L Normal 136-145 [facility] Comment on above: Performed By: #### C K, HS TROP, CBC, CMP ####[address] Urea nitrogen [Mass/Vol] 14 mg/dL Normal 7-25 [facility] Comment on above: Performed By: #### C K, HS TROP, CBC, CMP ####[address] Creatine Kinaseon 06-19-2024 CK [Catalytic activity/Vol] 51 U/L Normal 30-223 [facility] Comment on above: Performed By: #### C K, HS TROP, CBC, CMP ####[address] [address] [facility] Creatine kinase [Enzymatic a ctivity/volume] in Serum or PlasmaOrdered By: Babar Singh on 06-19-2024 CK [Catalytic activity/Vol] Creatine kinase [Enzymatic activity/volume] in Serum or Plasma [facility] Creatinine [Mass/volume] in Serum or PlasmaOrdered By: Babar Singh on 06-19-2024 Creatinine [Mass/Vol] Creatinine [Mass/v olume] in Serum or Plasma 0.60-1.20 [facility] Dipstick and Microscopicon 0 06-19-2024 Appearance (U) Cloudy Critically abnormal Clear [facility] Comment on above: Order Comment: Name Collection Type:: Clean-Voided Midstream Performed By: #### A DDONUAPLUS ####[place] [id number] [facility] Bacteria,Urine Rare Normal None Seen [facility] Comment on above: Order Comment: Name Collection Type:: Clean-Voided Midstream Performed By: #### A DDONUAPLUS ####[place] [id number] [facility] Bilirubin,Urine Negative Normal Negative [facility] Comment on above: Order Comment: Name Collection Type:: Clean-Voided Midstream Performed By: #### A DDONUAPLUS ####[place] [id number] [facility] Color (U) Yellow Normal Yellow [facility] Comment on above: Order Comment: Name Collection Type:: Clean-Voided Midstream Performed By: #### A DDONUAPLUS ####[place] [id number] [facility] Glucose Ql (U) Normal Normal Normal [facility] Comment on above: Order Comment: Name Collection Type:: Clean-Voided Midstream Performed By: #### A DDONUAPLUS ####[place] [id number] [facility] Hyaline Casts,Urine None Normal 0-8 [facility] Comment on above: Order Comment: Name Collection Type:: Clean-Voided Midstream Performed By: #### A DDONUAPLUS ####[place] [id number] [place] [address] [facility] Ketones Ql (U) 1+ High Negative [facility] Comment on above: Order Comment: Name Collection Type:: Clean-Voided Midstream Performed By: #### A DDONUAPLUS ####[address] [address] [facility] Leukocyte esterase Test strip Ql (U) 3+ High Negative [facility] Comment on above: Order Comment: Name Collection Type:: Clean-Voided Midstream Performed By: #### A DDONUAPLUS ####[address] [address] [facility] Mucus,Urine 2+ Critically abnormal [facility] Comment on above: Order Comment: Name Collection Type:: Clean-Voided Midstream Result Comment: PERF ORMED BY: [place] [address] PATHOLOGIST [employer] SALES CONSULTANT RAFIA LOPEZ M.D. Performed By: #### A DDONUAPLUS ####[address] [address] [facility] Nitrite,Urine Negative Normal Negative [facility] Comment on above: Order Comment: Name Collection Type:: Clean-Voided Midstream Performed By: #### A DDONUAPLUS ####[address] [address] [facility] Occult Blood,Urine Negative Normal Negative [facility] Comment on above: Order Comment: Name Collection Type:: Clean-Voided Midstream Result Comment: PERF ORMED BY: [facility] [address] [place] [address] PATHOLOGIST [employer] SALES CONSULTANT RAFIA LOPEZ M.D. Performed By: #### A DDONUAPLUS ####[address] [address] [facility] pH (U) 5.5 [pH] Normal 5.0-9.0 [facility] Comment on above: Order Comment: Name Collection Type:: Clean-Voided Midstream Performed By: #### A DDONUAPLUS ####[place] [id number] [facility] Protein,Urine Trace High Negative [facility] Comment on above: Order Comment: Name Collection Type:: Clean-Voided Midstream Performed By: #### A DDONUAPLUS ####[address] [address] [facility] RBC,Urine 5 [HPF] High 0-4 [facility] Comment on above: Order Comment: Name Collection Type:: Clean-Voided Midstream Performed By: #### A DDONUAPLUS ####[place] [id number] [facility] Specificy [place],Urine 1.023 Normal 1.001-1.03 0 [facility] Comment on above: Order Comment: Name Collection Type:: Clean-Voided Midstream Performed By: #### A DDONUAPLUS ####[address] [address] [facility] Squamous Epithelial Cell,Urine 10 [HPF] High 0-2 [facility] Comment on above: Order Comment: Name Collection Type:: Clean-Voided Midstream Performed By: #### A DDONUAPLUS ####[place] [id number] [facility] Urobilinogen,Urine Normal Normal Normal [facility] Comment on above: Order Comment: Name Collection Type:: Clean-Voided Midstream Performed By: #### A DDONUAPLUS ####[address] [address] [facility] WBC,Urine 3 [HPF] Normal 0-4 [facility] Comment on above: Order Comment: Name Collection Type:: Clean-Voided Midstream Performed By: #### A DDONUAPLUS ####[address] [address] [facility] ECG 12 lead ECGon 06-19-2024 ECG 12 lead ECG [facility] Main [place] [address] [place] [address] Electrocardiograph Report Signed Patient: Brittanie Garcia MR#: [id number] : 1985 Acct:[id number] Age/Sex: 39 / F ADM Date: 06/19/24 Loc: ER Room: Type: [facility] ER Attending Dr: Ordering Provider: Babar Singh [...] was found Confirmed by LIAM RANDLE DO ([id number]) on 06/19/2024 7:59:22 PM Referred By: Electronically Signed By: LIAM RANDLE DO Transcribed By: MUS Signed By Liam Randle DO 06/19 Normal [facility] Eosinophils Auto (Bld) [#/Vo l]Ordered By: Babar Singh on 06-19-2024 Eosinophils (Bld) [#/Vol] Automated eosinophil count 0.0-0.45 [facility] Eosinophils/100 WBC Auto (Bl d)Ordered By: Babar Singh on 06-19-2024 Eosinophils/100 WBC (Bld) Automated eosinophil % . [facility] Epithelial cells.squamous [# /area] in Urine sediment by Automated countOrdered By: NOLVIA SINGH on 06-19-2024 Epithelial cells.squamous Auto (Urine sed) [#/Area] Epithelial cells.squamous [#/area] in Urine sediment by Automated count High 0-2 [facility] Erythrocyte distribution wid th Auto (RBC) [Ratio]Ordered By: Babar Singh on 06-19-2024 Erythrocyte distribution width (RBC) [Ratio] Erythrocyte distribution width [Ratio] by Automated count 11.9-15.3 [facility] Erythrocytes [#/area] in Uri ne sediment by Automated countOrdered By: PROVIDER SAMANTHA on 06-19-2024 RBC Auto (Urine sed) [#/Area] Erythrocytes [#/area] in Urine sediment by Automated count High 0-4 [facility] Globulin Calc (S) [Mass/Vol] Ordered By: Babar Singh on 06-19-2024 Globulin (S) [Mass/Vol] Serum globulin measurement by calculation (mass/volume) [facility] Glucose Glucometer (BldC) [M ass/Vol]Ordered By: PROVIDER TEMP on 06-19-2024 Glucose [Mass/Vol] Capillary blood gluc ose measurement by glucometer (mass/volume) [facility] Comment on above: Random Glucose Refer ence Range is dependent on time and content of last meal. Glucose of more than 200 mg/dL in a nonstressed, ambulatory subject supports the diagnosis of Diabetes Mellitus. Glucose Poct Glucometerson 0 06-19-2024 Commemt1 Normal [facility] Comment on above: Result Comment: Glu2 : WILL NOTIFY DR/RN Performed By: #### G LULS #### Point of Care testing , Commemt2 Cleaned Meter Normal [facility] Comment on above: Result Comment: PERF ORMED BY: [facility] [address] [address] PATHOLOGIST [employer] SALES CONSULTANT RAFIA LOPEZ M.D. Performed By: #### G LULS #### Point of Care testing , Glucose [Mass/Vol] 120 mg/dL Normal [facility] Comment on above: Result Comment: [place] Glucose Reference Range is dependent on time and content of last meal. Glucose of more than 200 mg/dL in a nonstressed, ambulatory subject supports the diagnosis of Diabetes Mellitus. Performed By: #### G LULS #### Point of Care testing , Glucose [Mass/volume] in Ser um or PlasmaOrdered By: Babar Singh on 06-19-2024 Glucose [Mass/Vol] Glucose [Mass/volume ] in Serum or Plasma 70-100 [facility] Comment on above: ADA recommended refe rence rangeRandom Glucose Reference Range is dependent on time and content of last meal. Glucose of more than 200 mg/dL in a nonstressed, ambulatory subject supports the diagnosis of Diabetes Mellitus. Glucose [Mass/volume] in Uri ne by Test stripOrdered By: PROVIDER TEMP on 06-19-2024 Glucose Test strip (U) [Mass/Vol] Glucose [Mass/volume] in Urine by Test strip Normal [facility] Hematocrit Auto (Bld) [Volum e fraction]Ordered By: Babar Singh on 06-19-2024 Hematocrit (Bld) [Volume fraction] Hematocrit [Volume Fraction] of Blood by Automated count 34.0-46.4 [facility] Hemoglobin Test strip Ql (U) Ordered By: PROVIDER SAMANTHA on 06-19-2024 Hemoglobin Ql (U) Hemoglobin [Presence ] in Urine by Test strip Negative [facility] Hemoglobin [Mass/volume] in BloodOrdered By: Babar Singh on 06-19-2024 Hemoglobin (Bld) [Mass/Vol] Hemoglobin [Mass/volume] in Blood 11.8-15.4 [facility] Hyaline casts [#/area] in Ur ine sediment by Automated countOrdered By: NOLVIA SINGH on 06-19-2024 Hyaline casts Auto (Urine sed) [#/Area] Hyaline casts [#/area] in Urine sediment by Automated count 0-8 [facility] Ketones Test strip Ql (U)Ord ered By: PROVIDER SAMANTHA on 06-19-2024 Ketones Ql (U) Ketones [Presence] i n Urine by Test strip High Negative [facility] Leukocyte esterase [Presence ] in Urine by Test stripOrdered By: PROVIDER TEMGeorges on 06-19-2024 Leukocyte esterase Test strip Ql (U) Leukocyte esterase [Presence] in Urine by Test strip High Negative [facility] Leukocytes [#/area] in Urine sediment by Automated countOrdered By: NOLVIA SINGH on 06-19-2024 WBC Auto (Urine sed) [#/Area] Leukocytes [#/area] in Urine sediment by Automated count 0-4 [facility] Leukocytes [#/volume] correc harman for nucleated erythrocytes in Blood by Automated counOrdered By: Babar Singh on 06-19-2024 WBC corrected for nucl RBC Auto (Bld) [#/Vol] Leukocytes [#/volume] corrected for nucleated erythrocytes in Blood by Automated coun 3.8-11.6 [facility] Lymphocytes Auto (Bld) [#/Vo l]Ordered By: Babar Singh on 06-19-2024 Lymphocytes (Bld) [#/Vol] Lymphocytes [#/volume] in Blood by Automated count 1.00-4.8 [facility] Lymphocytes/100 WBC Auto (Bl d)Ordered By: Babar Singh on 06-19-2024 Lymphocytes/100 WBC (Bld) Lymphocytes/100 leukocytes in Blood by Automated count . [facility] MCH Auto (RBC) [Entitic mass ]Ordered By: Babar Singh on 06-19-2024 MCH (RBC) [Entitic mass] MCH [Entitic mass] by Automated count 24.7-34.3 [facility] MCHC Auto (RBC) [Mass/Vol]Or dered By: Babar Singh on 06-19-2024 MCHC (RBC) [Mass/Vol] MCHC [Mass/volume] by Automated count 32.0-35.0 [facility] MCV Auto (RBC) [Entitic vol] Ordered By: Babar Singh on 06-19-2024 MCV (RBC) [Entitic vol] MCV [Entitic volume] by Automated count 80-100 [facility] Monocyte distribution width [Entitic volume] in Blood by AutomatedOrdered By: Babar Singh on 06-19-2024 Monocyte distribution width Auto (Bld) [Entitic vol] Monocyte distribution width [Entitic volume] in Blood by Automated 0.00-20.00 [facility] Monocytes Auto (Bld) [#/Vol] Ordered By: Babar Singh on 06-19-2024 Monocytes (Bld) [#/Vol] Automated blood monocyte count 0.0-0.8 [facility] Monocytes/100 WBC Auto (Bld) Ordered By: Babar Singh on 06-19-2024 Monocytes/100 WBC (Bld) Automated monocyte % . [facility] Mucus [Presence] in Urine by AutomatedOrdered By: NOLVIA SINGH on 06-19-2024 Mucus Auto Ql (U) Mucus [Presence] in Urine by Automated Abnormal [facility] Neutrophils Auto (Bld) [#/Vo l]Ordered By: Babar Singh on 06-19-2024 Neutrophils (Bld) [#/Vol] Neutrophils [#/volume] in Blood by Automated count 1.8-7.7 [facility] Neutrophils/100 WBC Auto (Bl d)Ordered By: Babar Singh on 06-19-2024 Neutrophils/100 WBC (Bld) Automated neutrophil % . [facility] Nitrite Test strip Ql (U)Ord ered By: PROVIDER TEMP on 06-19-2024 Nitrite Ql (U) Nitrite [Presence] i n Urine by Test strip Negative [facility] No Panel InformationOrdered By: Babar Singh on 06-19-2024 Estimated GFR (CKD-EPI) > 60.0 mL/Min [facility] Pharmacy Creatinine Clearance (Chem 83.38 [facility] No Panel InformationOrdered By: PROVIDER TEMP on 06-19-2024 Bedside Glucose #2 Comment Cleaned meter [facility] Bedside Glucose Comment See comment [facility] Comment on above: Glu2: WILL NOTIFY DR /RN Nucleated erythrocytes [Pres ence] in Blood by Automated countOrdered By: Babar Singh on 06-19-2024 Nucleated RBC Auto Ql (Bld) Nucleated erythrocytes [Presence] in Blood by Automated count 0-0.5 [facility] Platelet mean volume Auto (B ld) [Entitic vol]Ordered By: Babar Singh on 06-19-2024 Platelet mean volume (Bld) [Entitic vol] Platelet mean volume [Entitic volume] in Blood by Automated count 6.3-10.7 [facility] Platelets Auto (Bld) [#/Vol] Ordered By: Babar Singh on 06-19-2024 Platelets (Bld) [#/Vol] Platelets [#/volume] in Blood by Automated count 150-450 [facility] Potassium [Moles/volume] in Serum or PlasmaOrdered By: Babar Singh on 06-19-2024 Potassium [Moles/Vol] Potassium [Moles/v olume] in Serum or Plasma 3.5-5.1 [facility] Protein Test strip (U) [Mass /Vol]Ordered By: PROVIDER SAMANTHA on 06-19-2024 Protein (U) [Mass/Vol] Protein [Mass/vol ume] in Urine by Test strip High Negative [facility] Protein [Mass/volume] in Ser um or PlasmaOrdered By: Babar Singh on 06-19-2024 Protein [Mass/Vol] Protein [Mass/volume ] in Serum or Plasma 6.4-8.9 [facility] RBC Auto (Bld) [#/Vol]Ordere d By: Babar Singh on 01-30-2025 RBC (Bld) [#/Vol] Erythrocytes [#/volu me] in Blood by Automated count 3.60-5.00 [facility] Serum or plasma albumin/glob ulin mass ratioOrdered By: Babar Singh on 06-19-2024 Albumin/Globulin [Mass ratio] Serum or plasma albumin/globulin mass ratio [facility] Serum or plasma anion gap de terminationOrdered By: Babar Singh on 06-19-2024 Anion gap [Moles/Vol] Serum or plasma an ion gap determination 6.0-15.0 [facility] Sodium [Moles/volume] in Ser um or PlasmaOrdered By: Babar Singh on 06-19-2024 Sodium [Moles/Vol] Sodium [Moles/volume ] in Serum or Plasma 136-145 [facility] Specific gravity Test strip (U) [Rel density]Ordered By: NOLVIA SINGH on 06-19-2024 Specific gravity (U) [Rel density] Specific gravity of Urine by Test strip 1.001-1.03 0 [facility] Troponin I High Sensitivityo n 06-19-2024 Troponin I High Sensitivity <3 Normal 0-15 [facility] Comment on above: Result Comment: The Troponin units of report have been changed to meet the Chest Pain Accreditation requirement, element EC5.M1l2. Troponin units are changed from pg/ml to ng/L. Also, the decimal is removed and results are in whole numbers. PERFORMED BY: [facility] [address] [place] [address] PATHOLOGIST [employer] SALES CONSULTANT RAFIA LOPEZ M.D. Performed By: #### C K, HS TROP, CBC, CMP ####[facility] [place] [id number] [facility] Troponin I.cardiac [Mass/vol ume] in Serum or Plasma by Detection limit <= 0.01 ng/Ordered By: Babar Singh on 06-19-2024 Troponin I.cardiac DL <= 0.01 ng/mL [Mass/Vol] Troponin I.cardiac [Mass/volume] in Serum or Plasma by Detection limit <= 0.01 ng/ 0-15 [facility] Comment on above: The Troponin units o f report have been changed to meet the Chest Pain Accreditation requirement, element EC5.M1l2. Troponin units are changed from pg/ml to ng/L. Also, the decimal is removed and results are in whole numbers. Urea nitrogen [Mass/volume] in Serum or PlasmaOrdered By: Babar Singh on 06-19-2024 Urea nitrogen [Mass/Vol] Urea nitrogen [Mass/volume] in Serum or Plasma 12-12 [facility] Urobilinogen Test strip (U) [Mass/Vol]Ordered By: PROVIDER TEMGeorges on 06-19-2024 Urobilinogen (U) [Mass/Vol] Urobilinogen [Mass/volume] in Urine by Test strip Normal [facility] WBC Auto (Bld) [#/Vol]Ordere d By: Babar Singh on 06-19-2024 WBC (Bld) [#/Vol] Leukocytes [#/volume ] in Blood by Automated count 3.8-11.6 [facility] pH Test strip (U)Ordered By: PROVIDER SAMANTHA on 06-19-2024 pH (U) pH of Urine by Test strip 5.0-9.0 [facility] Pedro 06-17-2024 L ------- Specimen: [id number] Received: 06/17/24 Status: MG Clemente Num: [id number] Spec Type: Surgical Subm Dr: Dano Pyle, DO Tissues: A Breast Lumpectmy/Mass - Requiring Micros Eval of Margins (RT BREAST MASS @ 1 B Breast Lumpectmy/Mass - Requiring Micros Eval of Margins (RT BREAST MASS @ 7 Procedures: , Gross/Micro L5/2 Age/ Patient Sex Location Account Attending Physician JoseBrittanie M 39/F [place] [id number] Dano Pyle, DO SPEC NUM: [id number] RECD: 06/17/24 STATUS: MG CLEMENTE NUM: [id number] TACOS: 06/17/[address] [facility] [address]: Dano Pyle DO ENTERED: 06/17/24 KAMARI CARBALLO: MIKE TYPE: Surgical DEPT: S ENTERED BY: [id number] RECV BY: [id number] ORDERED: , Gross/Micro L5/2 ORDERED: , Gross/Micro [...] note Specimen: [id number] Received: 06/17/24 Status: MG Clemente Num: [id number] Spec Type: Surgical Subm Dr: Dano Pyle, Tissues: A Breast Lumpectmy/Mass - Requiring Micros Eval of Margins (RT BREAST MASS @ 1 B Breast Lumpectmy/Mass - Requiring Micros Eval of Margins (RT BREAST MASS @ 7 Procedures: , Gross/Micro L5/2 Patient: GarciaBrittanie mcqueen [id number] (Continued) Specimen: [id number] Received: 06/17/24 (Continued) Signed (signature on file) ManuelJordiWilver Fonseca MD 06/18/24 1427 Specimen: [id number] Received: 06/17/24 Status: MG Clemente Num: [id number] Spec Type: Surgical Subm Dr: Dano Pyle DO Tissues: A Breast Lumpectmy/Mass - Requiring Micros Eval of Margins (RT BREAST MASS @ 1 B Breast Lumpectmy/Mass - Requiring Micros Eval of Margins (RT BREAST MASS @ 7 Procedures: , Gross/Micro L5/2 Patient: Brittanie Garcia [id number] (Continued) Specimen: [id number] Received: 06/17/24 (Continued) Clinical [...] Total fixation time: 8 hours (8, ns, [id number] A)J Part B is received in formalin labeled with the patients name, date of , and mass at (more content not included)... Normal [facility] CNOVon 01-30-2024 CNOV Office Visit ([facility] ) JOSEBRITTANIE ([id number]) 1985 F Date Time Provider Department 01/30/24 2:00 PM HARMAN SULLIVAN [facility] During your visit today, we recorded [...] brought in by patient? No Lot #: [id number] Exp: 03/2026 Dilution: 5 units/0.1 ml (100 [...] Optional follow pain # units L R Assembly Instructions Writer 10 units divided in 2 sites XXXXXXX [...] Harman Sullivan MD Referring Provider: HARMAN SULLIVAN [[id number]] Allergies As of Date: 01/30/2024 Noted Allergy [...] for Encounter Date Provider Department Center 01/30/2024 [id number], TED [facility] Encounter Status:Closed by HARMAN SULLIVAN on 01/30/24 Normal [facility] US breast RT limitedon 01-27 US breast RT limited [facility] [place] [address] Ultrasound Report Signed Patient: Brittanie Garcia MR#: [id number] : 1985 Acct:[id number] Age/Sex: 39 / F ADM Date: 01/28/24 Loc: [facility] Room: Type: [facility] Attending Dr: Dano Pyle DO [...] Binta Elaine M.D.01/28/2024 8:30 AM Dictation Location: [facility] Tech: Alayna Choudhary Transcribed By: JADEN 01/28/24829 Dictated By: Binta Elaine MD 01/28/24811 Signed By: 01/28/24829 Normal [facility] CNOVon 10-31-2023 CNOV Office Visit ([facility] ) BRITTANIE GARCIA ([id number]) 1985 F Date Time Provider Department 10/31/23 10:30 AM HARMAN SULLIVAN [facility] During your visit today, we recorded [...] BOTOX brought in by patient? No Lot #:[id number] Exp: 10/2025 Dilution: 5 units/0.1 ml (100 [...] Optional follow pain # units L R Assembly Instructions Writer 10 units divided in 2 sites XXXXXXX [...] Harman Sullivan MD Referring Provider: HARMAN SULLIVAN [[id number]] Allergies As of Date: 10/31/2023 Noted Allergy [...] for Encounter Date Provider Department Center 10/31/2023 [id number], TED [facility] Encounter Status:Closed by HARMAN SULLIVAN on 10/31/23 [facility] 10-31-2023 [facility] Telephone ([facility]) BRITTANIE GARCIA ([id number]) 1985 F Date Time Provider Department 10/31/[address] [facility] During your visit today, we recorded the following information about you: Esvin Velazquez 10/31/2023 11:03 AM Signed Patient brought in [facility] paperwork for Dr. Sullivan to fill [...] by ESVIN VELAZQUEZ on 12/03/23 [facility] Telephone ([facility]) BRITTANIE GARCIA ([id number]) 1985 F Date Time Provider Department 10/31/[address] [facility] During your visit today, we recorded [...] Encounter Status:Closed by ESVIN VELAZQUEZ on 12/06/23 [facility] 10-11-2023 [facility] Telephone ([facility]) BRITTANIE GARCIA ([id number]) 1985 F Date Time Provider Department 10/11/[address] [facility] During your visit today, we recorded [...] 30 slot to get her Botox in [place]. Per Dr. Sullivan, she does not need to then also keep her November 05 appt. Manolo Luther MA 10/22/2023 8:14 AM Signed Prior Auth Determination: Approved Medication/ Treatment: BOTOX Authorization Information/ Time Range: Botox, J0585 Approval Date Range: 10/16/2023 to 10/14/2024 Approval #: [id number] Dose AND Frequency: 200 units Q 12 [...] Status:Closed by PALLAVI DURON on 10/19/23 Normal [facility] CNOVon 09-21-2023 CNOV Office Visit ([facility] ) BRITTANIE GARCIA ([id number]) 1985 F Date Time Provider Department 09/21/23 8:30 AM HARMAN SULLIVAN [facility] During your visit today, we recorded [...] Advanced Neurology then changed to [place]. Dr. gAuilar. Pramipexole for RLS in left leg, same [...] Actual fi (more content not included)... Normal [facility] CNPNon 09-21-2023 [facility] Telephone ([facility]) BRITTANIE GARCIA ([id number]) 1985 F Date Time Provider Department 09/21/[address] [facility] During your visit today, we recorded the following information about you: Manolo Luther MA 09/21/2023 8:46 AM Signed Requested image transfer from [facility] for most recent head/ neck imaging. Manolo Luther MA 09/21/2023 2:42 PM Signed Faxed record request form to [facility] Neurology [phone]. Manolo Luther MA 10/03/2023 3:08 PM Signed RECORDS RECEIVED via FAX: From: [email or web address] Placed at desk/tray for review. [...] Encounter Status:Closed by MANOLO LUTHER on 09/21/23 Normal [facility] Calcium [Mass/volume] in Ser um or PlasmaOrdered By: Dano Pyle on 05-01-2023 Calcium [Mass/Vol] 9.7 mg/dL 8.6-10.3 [facility] Carbon dioxide, total [Moles /volume] in Serum or PlasmaOrdered By: Dano Pyle on 05-01-2023 CO2 [Moles/Vol] 28.9 mmol/L 21.0-31.0 [facility] Chloride [Moles/volume] in S leticia or PlasmaOrdered By: Dano Pyle on 05-01-2023 Chloride [Moles/Vol] 105 mmol/L 98-107 [facility] Creatinine [Mass/volume] in Serum or PlasmaOrdered By: Dano Pyle on 05-01-2023 Creatinine [Mass/Vol] 0.75 mg/dL 0.60-1.20 [facility] Glucose [Mass/volume] in Ser um or PlasmaOrdered By: Dano Pyle on 05-01-2023 Glucose [Mass/Vol] 84 mg/dL 70-100 [facility] Comment on above: ADA recommended refe rence rangeRandom Glucose Reference Range is dependent on time and content of last meal. Glucose of more than 200 mg/dL in a nonstressed, ambulatory subject supports the diagnosis of Diabetes Mellitus. No Panel InformationOrdered By: Dano Pyle on 05-01-2023 Estimated GFR (CKD-EPI) > 60.0 mL/Min [facility] Creatinine Clearance (Chem N/A [facility] Potassium [Moles/volume] in Serum or PlasmaOrdered By: Dano Pyle on 05-01-2023 Potassium [Moles/Vol] 4.3 mmol/L 3.5-5.1 [facility] Serum or plasma anion gap de terminationOrdered By: Dano Pyle on 05-01-2023 Anion gap [Moles/Vol] 9.4 mmol/L 6.0-15.0 [facility] Sodium [Moles/volume] in Ser um or PlasmaOrdered By: Dano Pyle on 05-01-2023 Sodium [Moles/Vol] 139 mmol/L 136-145 [facility] Urea nitrogen [Mass/volume] in Serum or PlasmaOrdered By: Dano Pyle on 05-01-2023 Urea nitrogen [Mass/Vol] 14 mg/dL 7-25 [facility] Basophils Auto (Bld) [#/Vol] Ordered By: Maria Del Carmen Borges on 02-07-2023 Basophils (Bld) [#/Vol] 0.0 10*3/uL 0.0-0.2 [facility] Basophils/100 WBC Auto (Bld) Ordered By: Maria Del Carmen Borges on 02-07-2023 Basophils/100 WBC (Bld) 0.4 % . [facility] Eosinophils Auto (Bld) [#/Vo l]Ordered By: Maria Del Carmen Borges on 02-07-2023 Eosinophils (Bld) [#/Vol] 0.1 10*3/uL 0.0-0.45 [facility] Eosinophils/100 WBC Auto (Bl d)Ordered By: Maria Del Carmen Borges on 02-07-2023 Eosinophils/100 WBC (Bld) 1.2 % . [facility] Erythrocyte distribution wid th Auto (RBC) [Ratio]Ordered By: Maria Del Carmen Borges on 02-07-2023 Erythrocyte distribution width (RBC) [Ratio] 13.4 % 11.9-15.3 [facility] Ferritin [Mass/volume] in Se rum or PlasmaOrdered By: Maria Del Carmen Borges on 02-07-2023 Ferritin [Mass/Vol] 110.5 ng/mL 11.0-306.8 [facility] Hematocrit Auto (Bld) [Volum e fraction]Ordered By: Maria Del Carmen Borges on 02-07-2023 Hematocrit (Bld) [Volume fraction] 42.6 % 34.0-46.4 [facility] Hemoglobin [Mass/volume] in BloodOrdered By: Maria Del Carmen Borges on 02-07-2023 Hemoglobin (Bld) [Mass/Vol] 14.2 g/dL 11.8-15.4 [facility] Leukocytes [#/volume] correc harman for nucleated erythrocytes in Blood by Automated counOrdered By: Maria Del Carmen Borges on 02-07-2023 WBC corrected for nucl RBC Auto (Bld) [#/Vol] 7.0 10*3/uL 3.8-11.6 [facility] Lymphocytes Auto (Bld) [#/Vo l]Ordered By: Maria Del Carmen Borges on 02-07-2023 Lymphocytes (Bld) [#/Vol] 2.5 10*3/uL 1.00-4.8 [facility] Lymphocytes/100 WBC Auto (Bl d)Ordered By: Maria Del Carmen Borges on 02-07-2023 Lymphocytes/100 WBC (Bld) 35.4 % . [facility] MCH Auto (RBC) [Entitic mass ]Ordered By: Maria Del Carmen Borges on 02-07-2023 MCH (RBC) [Entitic mass] 28.7 pg 24.7-34.3 [facility] MCHC Auto (RBC) [Mass/Vol]Or dered By: Maria Del Carmen Borges on 02-07-2023 MCHC (RBC) [Mass/Vol] 33.3 g/dL 32.0-35.0 [facility] MCV Auto (RBC) [Entitic vol] Ordered By: Maria Del Carmen Borges on 02-07-2023 MCV (RBC) [Entitic vol] 86.2 fL 80-100 [facility] Monocytes Auto (Bld) [#/Vol] Ordered By: Maria Del Carmen Borges on 02-07-2023 Monocytes (Bld) [#/Vol] 0.5 10*3/uL 0.0-0.8 [facility] Monocytes/100 WBC Auto (Bld) Ordered By: Maria Del Carmen Borges on 02-07-2023 Monocytes/100 WBC (Bld) 6.5 % . [facility] Neutrophils Auto (Bld) [#/Vo l]Ordered By: Maria Del Carmen Borges on 02-07-2023 Neutrophils (Bld) [#/Vol] 4.0 10*3/uL 1.8-7.7 [facility] Neutrophils/100 WBC Auto (Bl d)Ordered By: Maria Del Carmen Borges on 02-07-2023 Neutrophils/100 WBC (Bld) 56.5 % . [facility] Nucleated erythrocytes [Pres ence] in Blood by Automated countOrdered By: Maria Del Carmen Borges on 02-07-2023 Nucleated RBC Auto Ql (Bld) 0.1 /100{WBC} 0-0.5 [facility] Platelet mean volume Auto (B ld) [Entitic vol]Ordered By: Maria Del Carmen Borges on 02-07-2023 Platelet mean volume (Bld) [Entitic vol] 8.3 fL 6.3-10.7 [facility] Platelets Auto (Bld) [#/Vol] Ordered By: Maria Del Carmen Borges on 02-07-2023 Platelets (Bld) [#/Vol] 223 10*3/uL 150-450 [facility] RBC Auto (Bld) [#/Vol]Ordere d By: Maria Del Carmen Borges on 02-07-2023 RBC (Bld) [#/Vol] 4.94 10*6/uL 3.60-5.00 [facility] WBC Auto (Bld) [#/Vol]Ordere d By: Maria Del Carmen Borges on 02-07-2023 WBC (Bld) [#/Vol] 7.0 10*3/uL 3.8-11.6 [facility] Echocardiogramon 12-28-2022 Echocardiography [facility] [address], [address], [place] [address] TRANSTHORACIC ECHOCARDIOGRAM REPORT Patient Name: BRITTANIE Aguilar Blaire Physician: [id number] Saeed GARCIA MD Study Date: 12/28/2022 Referring SORAYA FAUZIA Physician: MRN/PID: [id number] PCP: Filiberto Ying Accession/Order#: [id number] Department [facility] Location: [place] Date of : 1985 Fellow: Gender: F Nurse: Admit Date: Lead Infrastructure Architect: Lanny Padron RDCS, RVT Height: 157.48 cm CC Report to: Weight: 74.84 kg Study Type: Echocardiogram BSA: 1.76 m2 Blood Pressure: 106 /70 mmHg Diagnosis/ICD: R00.0-Tachycardia, unspecified; N31-Eeiybak Indication: Hyperlipidemia, Overweight Procedure/CPT: Echo Complete w Full Doppler-83510 Study Detail: The following Echo studies were [...] 0.8 m/s (0.6-0.9m/s) PV Max P.4 mmHg [id number] Saeed Parada MD Electronically signed on 01/01/2023 at 2:35:16 PM Final Normal [facility] Office Visit (Cardiology)on 11-14-2022 Follow-up [...] a day.; Status:Complete - Retrospective Authorization; Done: [id number] Patient Instructions Avoid dehydration. Drink 5-6 bottles [...] the time of your visit. Corina Jordan GIven UNDERLINER, am scribing for and in the presence of Dr. Soraya Arcos, FACC, FACP, FHRS The provider reviewed the following test(s) and result(s) with the patient: ECG, Holter monitor and Tilt table Chief Complaint Patient presented to [facility]. Adult Risk Screening Initial Fall [...] Normal axis. Corrected QT interval 420 ms. OH interval 150 ms See signed ECG and check /Paceart. Imp / Plan Recurrent syncope, consistent with vasovagal etiology. Discussed mechanisms of syncope. Reviewed syncope brochure. Reviewed testing event monitor and tilt table te (more content not included)... Normal [facility] Office Visit (Cardiology)on 11-10-2022 Follow-up visit Diagnoses/Problems [...] Signs Recorded: 10Nov2022 09:01AMRecorded: 10Nov2022 08:58AM Systolic Wxextyu47, LUE, Sitting Diastolic Evcskbp97, LUE, Sitting Systolic Hckryojl510, LUE, Standing Diastolic Vtpexdey62, LUE, Standing Heart Rate92, L Radial Scuszikq28, LUE, Sitting Rigbddknw90, LUE, Sitting Height5 ft 2 in Xxbgpm813 lb BMI Zqczarmdcc66.63 kg/m2 BSA Calculated1.75 Tobacco Useb) No Falls [...] (Author) Normal [facility] No Panel Informationon 10-23 [facility] ilan 250 DO Work Phone: Cardiovasc Arrhythmia Result son 09-29-2022 Cardiovasc Arrhythmia Results Reason For Visit Event Monitor: BRITTANIE is here for the application of a 30 day event monitor in office., Diagnosis: Syncope,Fainting Ordering Physician: Dr. Saeed Castellanos DO Enrollment sent to: [employer] Monitor number [id number] applied. Holter monitor printed and placed on [...] Nov 02 2022 9:05AM EST (Author) Normal [facility] Office Visit (Cardiology)on 09-20-2022 Follow-up visit Diagnoses/Problems [...] has no rebound tachycardia. Recommendations, obtain [facility] monitoring, tilt table test, refer to either [...] negative for complaint. Vitals Vital Signs Recorded: [id number] 10:01AMRecorded: 78Pnk2724 09:59AM Systolic Xmehk275 Diastolic Lying88 Systolic Mpkolyk495 Diastolic Umbljyu17 Systolic Ehhfcbxd130 Diastolic Kfpmyfib46 Heart Rate85, Apical Wtxiajcl542, LUE, Supine Jaqvrigvp28, LUE, Supine Height5 ft 2 in Edqkdl365 lb BMI Lhuhcbrtqx94.36 kg/m2 BSA Calculated1.77 Tobacco Useb) No PHQ-2 #1. Ov (more content not included)... Normal [facility] Tobacco Screening.on 023 Adult depression screening assessment No -[facility] ilan 250 DO Work Phone: Tobacco use status CPHS b) No [facility] [employer] 250 DO Work Phone: MAGDA BY IFA WITH REFLEXon Nuclear Ab IF (S) [Titer] Negative Negative [facility] CCP ANTIBODY IGGon Cyclic citrullinated peptide IgG Qn <[address] [facility] Cyclic citrullinated peptide IgG Qnon 07-31-2022 CCP Antibody IgG Qualitative Negative Negative [facility] C-REACTIVE PROTEIN (CRP)on 0 07-28-2022 CRP [Mass/Vol] <0.9 mg/dL [facility] CBC W Auto Differential pane l (Bld)on 07-28-2022 Basophils (Bld) [#/Vol] 0.03 10*3/uL <0.11 k/uL [facility] Basophils/100 WBC (Bld) 0.4 % [facility] Differential cell count method Nom (Bld) Auto [facility] Eosinophils (Bld) [#/Vol] 0.07 10*3/uL <0.46 k/uL [facility] Eosinophils/100 WBC (Bld) 0.9 % [facility] Erythrocyte distribution width (RBC) [Ratio] 13.0 % 11.5 - 15.0 % [facility] Hematocrit (Bld) [Volume fraction] 44.1 % 36.0 - 46.0 % [facility] Hemoglobin (Bld) [Mass/Vol] 14.3 g/dL 11.5 - 15.5 g/dL [facility] Immature granulocytes (Bld) [#/Vol] <0.10 k/uL [facility] Immature granulocytes/100 WBC (Bld) 0.3 % [facility] Lymphocytes (Bld) [#/Vol] 2.43 10*3/uL 1.00 - 4.00 k/uL [facility] Lymphocytes/100 WBC (Bld) 30.5 % [facility] MCH (RBC) [Entitic mass] 29.0 pg 26.0 - 34.[address] [facility] MCHC (RBC) [Mass/Vol] 32.4 g/dL 30.5 - 36.0 g/dL [facility] MCV (RBC) [Entitic vol] 89.5 fL 80.0 - 100.[address] [facility] Monocytes (Bld) [#/Vol] 0.49 10*3/uL <0.87 k/uL [facility] Monocytes/100 WBC (Bld) 6.1 % [facility] Neutrophils (Bld) [#/Vol] 4.93 10*3/uL 1.45 - 7.50 k/uL [facility] Neutrophils/100 WBC (Bld) 61.8 % [facility] Nucleated RBC (Bld) [#/Vol] <0.01 k/uL [facility] Nucleated RBC/100 WBC (Bld) [Ratio] 0.0 /[address] [facility] Platelet mean volume (Bld) [Entitic vol] 10.1 fL 9.0 - 12.[address] [facility] Platelets (Bld) [#/Vol] 251 10*3/uL 150 - 400 k/uL [facility] RBC (Bld) [#/Vol] 4.93 10*6/uL 3.90 - 5.20 m/uL [facility] WBC (Bld) [#/Vol] 7.97 10*3/uL 3.70 - 11.00 k/uL [facility] Comprehensive metabolic 2000 panelon 07-28-2022 Albumin [Mass/Vol] 4.7 g/dL 3.9 - 4.9 g/dL [facility] ALP [Catalytic activity/Vol] 86 U/L 34 - 123 U/L [facility] ALT [Catalytic activity/Vol] 58 U/L High 7 - 38 U/L [facility] Anion gap [Moles/Vol] 12 mmol/L 9 - 18 mmol/L [facility] AST [Catalytic activity/Vol] 31 U/L 13 - 35 U/L [facility] Bilirubin [Mass/Vol] 0.4 mg/dL 0.2 - 1 .3 mg/dL [facility] Calcium [Mass/Vol] 10.0 mg/dL 8.5 - 10. 2 mg/dL [facility] Chloride [Moles/Vol] 105 mmol/L 97 - 10 5 mmol/L [facility] CO2 [Moles/Vol] 23 mmol/L 22 - 30 mmol/L [facility] Creatinine [Mass/Vol] 0.79 mg/dL 0.58 - 0.96 mg/dL [facility] Estimated Glomerular Filtration Rate 100 mL/min/1.73m >=60 mL/min/1.[address] [facility] Glucose [Mass/Vol] 84 mg/dL 74 - 99 mg/dL [facility] Potassium [Moles/Vol] 4.1 mmol/L 3.7 - 5.1 mmol/L [facility] Protein [Mass/Vol] 7.7 g/dL 6.3 - 8.0 g/dL [facility] Sodium [Moles/Vol] 140 mmol/L 136 - 144 mmol/L [facility] Urea nitrogen [Mass/Vol] 12 mg/dL 7 - 21 mg/dL [facility] ESR Westergren method (Bld) [Velocity]on 07-28-2022 ESR (Bld) [Velocity] 5 mm/h 0 - 20 mm/hr [facility] No Panel Informationon 07-28 [facility] RHEUMATOID FACTOR BLon 07-28 Rheumatoid factor Qn <16 IU/mL [facility] XR CSPINE OBL FLEX_EXTon XR CSPINE [...] by: NAVNEET MONTERO Date: 2022-02-16 08:57 Normal [facility] Ferritin [Mass/volume] in Se rum or PlasmaOrdered By: Kenna Sheehan on 01-19-2022 Ferritin [Mass/Vol] 51.8 ng/mL 11-306.8 [facility] PAP ACOG PANEL 2: 30 to 65on 01-13-2022 . . Normal [facility] Comment on above: Result Comment: Perf ormed at: WB Performed By: #### [id number] #### [facility] [address] [place] [address] Dr. Lui Fonseca Age Gdln ACOG Testing 30-65 Normal [facility] Comment on above: Performed By: #### [id number] #### [facility] [address] [place] [address] [address] Lui Fonseca DIAGNOSIS: Comment Normal [facility] Comment on above: Result Comment: NEGA TIVE FOR INTRAEPITHELIAL LESION OR MALIGNANCY. Performed at: WB Performed By: #### [id number] #### [facility] [address] [place] [address] [address] Lui Fosneca HPV Aptima Negative Normal Negative [facility] Comment on above: Result Comment: This nucleic acid amplification test detects fourteen high-risk HPV types (16,18,31,33,35,39,45,51,52,56,58,59,66,68) without differentiation. Performed at: =G Performed By: #### [id number] #### [facility] [address] [place] [address] [address] Lui Fonseca Methodology: Comment Normal [facility] Comment on above: Result Comment: This liquid based ThinPrep(R) pap test was screened with the use of an image guided system. Performed at: WB Performed By: #### [id number] #### [facility] [address] [place] [address] Dr. Lui Fonseca Note: Comment Normal [facility] Comment on above: Result Comment: The Pap smear is a screening test designed to aid in the detection of premalignant and malignant conditions of the uterine cervix. It is not a diagnostic procedure and should not be used as the sole means of detecting cervical cancer. Both false-positive and false-negative reports do occur. . Performed at: WB Performed By: #### 4 [id number] #### [facility] [address] [place] [address] Dr. Lui Fonseca Performed by: Comment Normal [facility] Comment on above: Result Comment: Susan Alejandro, Supervisory Reconciliation Manager (ASCP) Performed at: WB Performed By: #### [id number] #### [facility] [address] [place] [address] Dr. Lui Fonseca Specimen adequacy: Comment Normal [facility] Comment on above: Result Comment: Sati sfactory for evaluation. No endocervical component is identified. Performed at: WB Performed By: #### 4 [id number] #### [facility] [address] [place] [address] Dr. Lui Fonseca INSULINon 01-02-2022 Insulin 20.6 uIU/mL Normal 2.6-24.9 [facility] Comment on above: Performed By: #### I NSULIN #### [facility] [address] [place] [address] Dr. Lui Fonseca H PYLORI ANTIBODY IGGon 12-19 H. PYLORI IGG ABS 0.15 Index Value Normal 0.00-0.79 [facility] Comment on above: Result Comment: Nega tive <0.80 Equivocal 0.80 - 0.89 Positive >0.89 Performed By: #### H PYLLC #### [facility] [address] [place] [address] Dr. Lui Fonseca T4, T3U, FTI LABCORPon 01-01 Free Thyroxine Index 2.7 Normal 1.2-4.9 [facility] Comment on above: Performed By: #### T HYLC #### [facility] [address] [place] [address] Dr. Lui Fonseca T3 Uptake 30 % Normal 24-39 [facility] Comment on above: Performed By: #### T HYLC #### [facility] [address] [place] [address] Dr. Lui Fonseca T4 [Mass/Vol] 9.1 ug/dL Normal 4.5-12.0 [facility] Comment on above: Performed By: #### T HYLC #### [facility] [address] [place] [address] Dr. Lui Fonseca CBC AUTO DIFFon 12-31-2021 BASO # 0.0 103/ul Normal 0.0-0.1 [facility] Comment on above: Performed By: #### C BC #### [facility] [address] [place] [address] Dr. Lui Fonseca Basophils/100 WBC (Bld) 0.4 % Normal 0.2-2.0 [facility] Comment on above: Performed By: #### C BC #### [facility] [address] [place] [address] Dr. Lui Fonseca EO # 0.2 103/ul Normal 0.0-0.7 [facility] Comment on above: Performed By: #### C BC #### [facility] [address] [place] [address] Dr. Lui Fonseca Eosinophils/100 WBC (Bld) 2.8 % Normal 0.9-7.0 [facility] Comment on above: Performed By: #### C BC #### [facility] [address] [place] [address] Dr. Lui Fonseca Erythrocyte distribution width (RBC) [Ratio] 13.2 % Normal 11.0-15.0 [facility] Comment on above: Performed By: #### C BC #### [facility] [address] [place] [address] Dr. Lui Fonseca Hematocrit (Bld) [Volume fraction] 44.0 % Normal 36.0-48.0 [facility] Comment on above: Performed By: #### C BC #### [facility] [address] [place] [address] Dr. Lui Fonseca Hemoglobin (Bld) [Mass/Vol] 14.3 g/dL Normal 12.0-16.0 [facility] Comment on above: Performed By: #### C BC #### [facility] [address] [place] [address] Dr. Lui Fonseca IG # 0.01 10e3/ul Normal 0.00-0.03 [facility] Comment on above: Performed By: #### C BC #### [facility] [address] [place] [address] Dr. Lui Fonseca IG % 0.2 % Normal 0.0-0.5 [facility] Comment on above: Performed By: #### C BC #### [facility] [address] [place] [address] Dr. Lui Fonseca LYMPH # 2.3 103/ul Normal 1.2-3.8 [facility] [facility] Comment on above: Performed By: #### C BC #### [facility] [address] [place] [address] Dr. Lui Fonseca Lymphocytes/100 WBC (Bld) 41.6 % Normal 20.5-60.0 [facility] Comment on above: Performed By: #### C BC #### [facility] [address] [place] [address] Dr. Lui Fonseca MANUAL DIFF REQ NO Normal [facility] Comment on above: Performed By: #### C BC #### [facility] [address] [place] [address] Dr. Lui Fonseca MCH (RBC) [Entitic mass] 29.1 pg Normal 26.7-34.0 [facility] Comment on above: Performed By: #### C BC #### [facility] [address] [place] [address] Dr. Lui Fonseca MCHC (RBC) [Mass/Vol] 32.5 g/dL Normal 29.9-35.2 [facility] Comment on above: Performed By: #### C BC #### [facility] [address] [address] [address] Lui Fonseca MCV (RBC) [Entitic vol] 89.6 fL Normal 81.0-99.0 [facility] Comment on above: Performed By: #### C BC #### [facility] [address] [address] [address] Lui Fonseca MONO # 0.3 103/ul Normal 0.3-0.8 [facility] Comment on above: Performed By: #### C BC #### [facility] [address] [place] [address] Dr. Lui Fonseca Monocytes/100 WBC (Bld) 6.3 % Normal 1.7-12.0 [facility] Comment on above: Performed By: #### C BC #### [facility] [address] [place] [address] Dr. Lui Fonseca NEUT # 2.7 103/ul Normal 1.4-6.5 [facility] Comment on above: Performed By: #### C BC #### [facility] [address] [place] [address] Dr. Lui Fonseca Neutrophils/100 WBC (Bld) 48.7 % Normal 43.0-75.0 [facility] Comment on above: Performed By: #### C BC #### [facility] [address] [place] [address] Dr. Lui Fonseca Platelet mean volume (Bld) [Entitic vol] 9.5 fL Normal 9.5-13.5 [facility] Comment on above: Performed By: #### C BC #### [facility] [address] [place] [address] Dr. Lui Fonseca PLT 276 103/ul Normal 150-450 [facility] Comment on above: Performed By: #### C BC #### [facility] [address] [place] [address] Dr. Lui Fonseca RBC 4.91 106/ul Normal 4.20-5.40 [facility] Comment on above: Performed By: #### C BC #### [facility] [address] [address] [address] Lui Fonseca WBC 5.4 103/ul Normal 4.0-11.0 [facility] Comment on above: Performed By: #### C BC #### [facility] [address] [address] [address] Lui Fonseca GLYCOHEMOGLOBIN A1Con 2021 ADA RECOMMENDATION SEE BELOW Normal [facility] Comment on above: Result Comment: ADA RECOMMENDED LIMIT 4.0 - 6.0 ADA THERAPEUTIC TARGET < 7.0 ACTION SUGGESTED > 7.0 Performed By: #### A 1C ####[facility] [address] [address]Dr. Lui Fonseca Glucose [Mass/Vol] 97 mg/dL Normal [facility] Comment on above: Performed By: #### A 1C ####[facility] [address] [place], [place] [address]Dr. Lui Fonseca HbA1c (Bld) [Mass fraction] 5.0 % Normal 4.5-6.2 [facility] Comment on above: Performed By: #### A 1C ####[facility] [address] [place], [place] [address]Dr. Lui Fonseca IRONon 12-31-2021 Iron [Mass/Vol] 101.0 ug/dL Normal 50.0-170.0 [facility] Comment on above: Performed By: #### I EDMOND #### [facility] [address] [place] [address] Dr. Lui Fonseca LIPID PROFILEon 12-31-2021 CHOL-HDL RATIO NORM SEE BELOW Normal [facility] Comment on above: Result Comment: 3.3 - 4.4 LOW RISK 4.4 - 7.1 AVERAGE RISK 7.1 - 11.0 MODERATE RISK >11.0 HIGH RISK Performed By: #### T SH, LIPID, CMP ####[facility] [address] [place], [place] [address]Dr. Lui Fonseca Cholesterol [Mass/Vol] 149 mg/dL Normal <=200 Th e [facility] Comment on above: Performed By: #### T SH, LIPID, CMP ####[facility] [address] [id number]. Lui Fonseca Cholesterol in HDL [Mass/Vol] 55 mg/dL Normal 40-60 [facility] Comment on above: Performed By: #### T SH, LIPID, CMP ####[facility] [address] [address]Dr. Lui Fonseca Cholesterol in LDL [Mass/Vol] 61.4 mg/dL Normal [facility] Comment on above: Performed By: #### T SH, LIPID, CMP ####[facility] [address] [address]Dr. Lui Raymundo Cholesterol.total/Chol esterol in HDL [Mass ratio] 2.7 {ratio} Normal [facility] Comment on above: Performed By: #### T SH, LIPID, CMP ####[facility] [address] [place], [place] [address]Dr. Gabilan Fonseca HDL NORMAL > or = 60 mg/dl - LO W CARDIOVASCULAR RISK <40 mg/dl - HIGH CARDIOVASCULAR RISK Normal [facility] Comment on above: Performed By: #### T SH, LIPID, CMP ####[facility] [address] [place], [place] [address]Dr. Lui Fonseca LDL CALC NORMAL SEE BELOW Normal [facility] Comment on above: Result Comment: <100 mg/dl OPTIMAL 100 - 129 mg/dl NEAR OR ABOVE OPTIMAL 130 - 159 mg/dl BORDERLINE HIGH 160 - 189 mg/dl HIGH >190 mg/dl VERY HIGH Performed By: #### T SH, LIPID, CMP ####[facility] [address] [place], [place] [address]Dr. Lui Fonseca Triglyceride [Mass/Vol] 163 mg/dL Critically high <=150 [facility] Comment on above: Performed By: #### T SH, LIPID, CMP ####[facility] [address] [address]Dr. Lui Fonseca VLDL CALC 32.6 mg/dL Normal [facility] Comment on above: Performed By: #### T SH, LIPID, CMP ####[facility] [address] [id number]. Lui Fonseca OCC BLD IMMUNO SCREENon 12-19 OCCULT BLOOD Negative Normal NEGATIVE [facility] Comment on above: Performed By: #### O BSCRN #### [facility] [address] [place], [place] [address] Dr. Lui Fonseca PROF 14(COMP METB)on 022 Albumin [Mass/Vol] 4.1 g/dL Normal 3.4-5.0 [facility] Comment on above: Performed By: #### T SH, LIPID, CMP ####[facility] [address] [address]Dr. Lui Fonseca Albumin/Globulin [Mass ratio] 1.2 {ratio} Normal [facility] Comment on above: Performed By: #### T SH, LIPID, CMP ####[facility] [address] [address]Dr. Lui Fonseca ALP [Catalytic activity/Vol] 86 U/L Normal 46-116 [facility] Comment on above: Performed By: #### T SH, LIPID, CMP ####[facility] [address] [address]Dr. Lui Fonseca ALT [Catalytic activity/Vol] 27 U/L Normal 14-59 [facility] Comment on above: Performed By: #### T SH, LIPID, CMP ####[facility] [address] [id number]. Lui Fonseca Anion gap [Moles/Vol] 14.1 mmol/L Normal [facility] Comment on above: Performed By: #### T SH, LIPID, CMP ####[facility] [address] [address]Dr. Lui Fonseca AST [Catalytic activity/Vol] 15 U/L Normal 15-37 [facility] Comment on above: Performed By: #### T SH, LIPID, CMP ####[facility] [address] [address]Dr. Lui Fonseca Bilirubin [Mass/Vol] 0.6 mg/dL Normal 0.2-1.0 [facility] Comment on above: Performed By: #### T SH, LIPID, CMP ####[facility] [address] [place], [place] [address]Dr. Lui Fonseca Calcium [Mass/Vol] 9.1 mg/dL Normal 8.5-10.1 [facility] Comment on above: Performed By: #### T SH, LIPID, CMP ####[facility] [address] [place], [place] [address]Dr. Lui Fonseca Chloride [Moles/Vol] 104 mmol/L Normal 98-107 [facility] Comment on above: Performed By: #### T SH, LIPID, CMP ####[facility] [address] [place], [place] [address]Dr. Lui Fonseca CO2 [Moles/Vol] 26.8 mmol/L Normal 21.0-32.0 [facility] Comment on above: Performed By: #### T SH, LIPID, CMP ####[facility] [address] [place], [place] [address]Dr. Lui Fonseca Creatinine [Mass/Vol] 0.84 mg/dL Normal 0.55-1.02 [facility] Comment on above: Performed By: #### T SH, LIPID, CMP ####[facility] [address] [place], [place] [address]Dr. Lui Fonseca EGFR-AF CAMEROONIAN >60 Normal >=60 [facility] Comment on above: Performed By: #### T SH, LIPID, CMP ####[facility] [address] [place], [place] [address]Dr. Lui Fonseca EGFR-NON AF CAMEROONIAN >60 Normal >=60 [facility] Comment on above: Performed By: #### T SH, LIPID, CMP ####[facility] [address] [place], [place] [address]Dr. Lui Fonseca Globulin (S) [Mass/Vol] 3.3 g/dL Normal [facility] Comment on above: Performed By: #### T SH, LIPID, CMP ####[facility] [address] [place], [place] [address]Dr. Lui Fonseca Glucose [Mass/Vol] 93 mg/dL Normal 74-106 [facility] Comment on above: Performed By: #### T MAMADOU, LIPID, CMP ####[facility] [address] [address]Dr. Gabiandrzej Fonseca Potassium [Moles/Vol] 3.9 mmol/L Normal 3.5-5.1 [facility] Comment on above: Performed By: #### T MAMADOU, LIPID, CMP ####[facility] [address] [address]Dr. Lui Fonseca Protein [Mass/Vol] 7.4 g/dL Normal 6.4-8.2 [facility] Comment on above: Performed By: #### T MAMADOU LIPID, CMP ####[facility] [address] [address]Dr. Lui Fonseca Sodium [Moles/Vol] 141 mmol/L Normal 136-145 [facility] Comment on above: Performed By: #### T MAMADOU LIPID, CMP ####[facility] [address] [address]Dr. Lui Fonseca Urea nitrogen [Mass/Vol] 8.0 mg/dL Normal 7.0-18.0 [facility] Comment on above: Performed By: #### T MAMADOU, LIPID, CMP ####[facility] [address] [address]Dr. Lui Fonseca Urea nitrogen/Creatinine [Mass ratio] 9.5 mg/mg Normal [facility] Comment on above: Performed By: #### T MAMADOU, LIPID, CMP ####[facility] [address] [address]Dr. Lui Fonseca TSHon 12-31-2021 TSH 0.539 uIU/mL Normal 0.358-3.74 0 [facility] Comment on above: Performed By: #### T MAMADOU, LIPID, CMP ####[facility] [address] [address]Dr. Lui Fonseca Vital Signs Date Time Vital Sign Value Performing Clinician Facility 09-17-2024 08:59-0400 Diastolic blood pressure 68 mm[Hg] Filiberto Ying MD Work Phone: [facility] 09-17-2024 08:59-0400 Heart rate 85 /min Filiberto Ying MD Work Phone: [facility] 09-17-2024 08:59-0400 Respiratory rate 18 /min Filiberto Ying MD Work Phone: [facility] 09-17-2024 08:59-0400 SaO2% (BldA) [Mass fraction] 98 % Filiberto Ying MD Work Phone: [facility] 09-17-2024 08:59-0400 Systolic blood pressure 104 mm[Hg] Filiberto Ying MD Work Phone: [facility] 09-17-2024 05:05-0400 Body height 157.48 cm Filiberto Ying MD Work Phone: [facility] 09-17-2024 05:05-0400 Body temperature 98.1 [degF] Filiberto Ying MD Work Phone: [facility] 09-17-2024 05:05-0400 Body weight 75.55 kg Filiberto Ying MD Work Phone: [facility] 08-01-2024 10:43-0400 Diastolic blood pressure 85 mm[Hg] Filiberto Ying MD Work Phone: [facility] 08-01-2024 10:43-0400 Heart rate 72 /min Filiberto Ying MD Work Phone: [facility] 08-01-2024 10:43-0400 Respiratory rate 18 /min Filiberto Ying MD Work Phone: [facility] 08-01-2024 10:43-0400 SaO2% (BldA) [Mass fraction] 99 % Filiberto Ying MD Work Phone: [facility] 08-01-2024 10:43-0400 Systolic blood pressure 116 mm[Hg] Filiberto Ying MD Work Phone: [facility] 08-01-2024 09:25-0400 Body temperature 98.2 [degF] Filiberto Ying MD Work Phone: [facility] 08-01-2024 07:49-0400 Body height 157.48 cm Filiberto Ying MD Work Phone: [facility] 08-01-2024 07:49-0400 Body weight 73.25 kg Filiberto Ying MD Work Phone: [facility] 07-30-2024 16:17-0400 Body height 157.5 cm Harman Sullivan MD Work Phone: [facility] 07-30-2024 16:17-0400 Body mass index (BMI) [Ratio] 30.24 kg/m2 Harman Sullivan MD Work Phone: [facility] 07-30-2024 16:17-0400 Body weight 75 kg Harman Sullivan MD Work Phone: [facility] 07-30-2024 16:17-0400 Diastolic blood pressure 82 mm[Hg] Harman Sullivan MD Work Phone: [facility] 07-30-2024 16:17-0400 Heart rate 106 /min Harman Sullivan MD Work Phone: [facility] 07-30-2024 16:17-0400 SaO2% (BldA) [Mass fraction] 98 % Harman Sullivan MD Work Phone: [facility] 07-30-2024 16:17-0400 Systolic blood pressure 128 mm[Hg] Harman Sullivan MD Work Phone: [facility] 06-19-2024 20:00-0500 Diastolic blood pressure 61 mm[Hg] Filiberto Ying MD Work Phone: [facility] 06-19-2024 20:00-0500 Heart rate 67 /min Filiberto Ying MD Work Phone: [facility] 06-19-2024 20:00-0500 Respiratory rate 24 /min Filiberto Ying MD Work Phone: [facility] 06-19-2024 20:00-0500 SaO2% (BldA) [Mass fraction] 99 % Filiberto Ying MD Work Phone: [facility] 06-19-2024 20:00-0500 Systolic blood pressure 103 mm[Hg] Filiberto Ying MD Work Phone: [facility] 06-19-2024 13:52-0500 Body height 157.48 cm Filiberto Ying MD Work Phone: [facility] 06-19-2024 13:52-0500 Body temperature 98.1 [degF] Filiberto Ying MD Work Phone: [facility] 06-19-2024 13:52-0500 Body weight 74 kg Filiberto Ying MD Work Phone: [facility] 06-17-2024 10:04-0500 Diastolic blood pressure 72 mm[Hg] Filiberto Ying MD Work Phone: [facility] 06-17-2024 10:04-0500 Heart rate 85 /min Filiberto Ying MD Work Phone: [facility] 06-17-2024 10:04-0500 Respiratory rate 20 /min Filiberto Ying MD Work Phone: [facility] 06-17-2024 10:04-0500 SaO2% (BldA) [Mass fraction] 100 % Filiberto Ying MD Work Phone: [facility] 06-17-2024 10:04-0500 Systolic blood pressure 121 mm[Hg] Filiberto Ying MD Work Phone: [facility] 06-17-2024 09:19-0500 Body temperature 97 [degF] Filiberto Ying MD Work Phone: [facility] 06-17-2024 09:19-0500 Inhaled oxygen flow rate 6 L/min Filiberto Ying MD Work Phone: [facility] 06-17-2024 06:55-0500 Body height 157.48 cm Filiberto Ying MD Work Phone: [facility] 06-17-2024 06:55-0500 Body weight 75 kg Filiberto Ying MD Work Phone: [facility] 01-30-2024 13:48-0400 Body height 157.5 cm Harman Sullivan MD Work Phone: [facility] 01-30-2024 13:48-0400 Body mass index (BMI) [Ratio] 28.43 kg/m2 Harman Sullivan MD Work Phone: [facility] 01-30-2024 13:48-0400 Body weight 70.5 kg Harman Sullivan MD Work Phone: [facility] 01-30-2024 13:48-0400 Diastolic blood pressure 76 mm[Hg] Harman Sullivan MD Work Phone: [facility] 01-30-2024 13:48-0400 Heart rate 91 /min Harman Sullivan MD Work Phone: [facility] 01-30-2024 13:48-0400 Systolic blood pressure 115 mm[Hg] Harman Sullivan MD Work Phone: [facility] 10-31-2023 10:14-0400 Body height 157.5 cm Harman Sullivan MD Work Phone: [facility] 10-31-2023 10:14-0400 Body mass index (BMI) [Ratio] 27.82 kg/m2 Harman Sullivan MD Work Phone: [facility] 10-31-2023 10:14-0400 Body weight 69 kg Harman Sullivan MD Work Phone: [facility] 10-31-2023 10:14-0400 Diastolic blood pressure 70 mm[Hg] Harman Sullivan MD Work Phone: [facility] 10-31-2023 10:14-0400 Heart rate 84 /min Harman Sullivan MD Work Phone: [facility] 10-31-2023 10:14-0400 Systolic blood pressure 109 mm[Hg] Harman Sullivan MD Work Phone: [facility] 09-21-2023 08:12-0400 Body height 157.5 cm Harman Sullivan MD Work Phone: [facility] 09-21-2023 08:12-0400 Body mass index (BMI) [Ratio] 27.58 kg/m2 Harman Sullivan MD Work Phone: [facility] 09-21-2023 08:12-0400 Body weight 68.4 kg Harman Sullivan MD Work Phone: [facility] 09-21-2023 08:12-0400 Diastolic blood pressure 74 mm[Hg] Harman Sullivan MD Work Phone: [facility] 09-21-2023 08:12-0400 Heart rate 84 /min Harman Sullivan MD Work Phone: [facility] 09-21-2023 08:12-0400 SaO2% (BldA) [Mass fraction] 99 % Harman Sullivan MD Work Phone: [facility] 09-21-2023 08:12-0400 Systolic blood pressure 109 mm[Hg] Harman Sullivan MD Work Phone: [facility] 05-15-2023 12:15-0500 Diastolic blood pressure 67 mm[Hg] MD Filiberto Ying Work Phone: [facility] 05-15-2023 12:15-0500 Heart rate 86 /min MD Filiberto Ying Work Phone: [facility] 05-15-2023 12:15-0500 Respiratory rate 16 /min MD Filiberto iYng Work Phone: [facility] 05-15-2023 12:15-0500 SaO2% (BldA) [Mass fraction] 100 % MD Filiberto Ying Work Phone: [facility] 05-15-2023 12:15-0500 Systolic blood pressure 125 mm[Hg] MD Filiberto Ying Work Phone: [facility] 05-15-2023 11:10-0500 Inhaled oxygen flow rate 6 L/min MD Filiberto Ying Work Phone: [facility] 05-15-2023 10:55-0500 Body temperature 98.1 [degF] MD Filiberto Ying Work Phone: [facility] 05-15-2023 09:30-0500 Body mass index (BMI) [Ratio] 25.8 kg/m2 MD Filiberto Ying Work Phone: [facility] 05-15-2023 08:55-0500 Body height 157.48 cm MD Filiberto Ying Work Phone: [facility] 05-15-2023 08:55-0500 Body weight 64 kg MD Filiberto Ying Work Phone: [facility] 04-05-2023 12:08-0500 Body temperature 98.2 [degF] MD Filiberto Ying Work Phone: [facility] 04-05-2023 12:08-0500 Diastolic blood pressure 69 mm[Hg] MD Filiberto Ying Work Phone: [facility] 04-05-2023 12:08-0500 Heart rate 87 /min MD Filiberto Ying Work Phone: [facility] 04-05-2023 12:08-0500 Respiratory rate 18 /min MD Filiberto Ying Work Phone: [facility] 04-05-2023 12:08-0500 SaO2% (BldA) [Mass fraction] 100 % MD Filiberto Ying Work Phone: [facility] 04-05-2023 12:08-0500 Systolic blood pressure 110 mm[Hg] MD Filiberto Ying Work Phone: [facility] 01-12-2023 09:35-0400 Body height 157.5 cm Maria Del Carmen Borges APRN.CNP Work Phone: [facility] 01-12-2023 09:35-0400 Body weight 70.31 kg Maria Del Carmen Bernarda GROUP ACTIVITIES AIDE.PROTEIN SCIENTIST Work Phone: [facility] 01-12-2023 09:35-0400 Diastolic blood pressure 69 mm[Hg] Maria Del Carmen Borges GROUP ACTIVITIES AIDE.PROTEIN SCIENTIST Work Phone: [facility] 01-12-2023 09:35-0400 Heart rate 110 /min Maria Del Carmen Borges GROUP ACTIVITIES AIDE.PROTEIN SCIENTIST Work Phone: [facility] 01-12-2023 09:35-0400 SaO2% (BldA) [Mass fraction] 93 % Maria Del Carmen Bernarda GROUP ACTIVITIES AIDE.PROTEIN SCIENTIST Work Phone: [facility] 01-12-2023 09:35-0400 Systolic blood pressure 110 mm[Hg] Maria Del Carmen Borges GROUP ACTIVITIES AIDE.PROTEIN SCIENTIST Work Phone: [facility] 10-23-2022 14:14-0400 Diastolic blood pressure 66 mm[Hg] MD Filiberto Ying Work Phone: [facility] 10-23-2022 14:14-0400 Heart rate 100 /min MD Filiberto Ying Work Phone: [facility] 10-23-2022 14:14-0400 Systolic blood pressure 113 mm[Hg] MD Filiberto Ying Work Phone: [facility] 10-23-2022 13:50-0400 SaO2% (BldA) [Mass fraction] 99 % MD Filiberto Ying Work Phone: [facility] 09-20-2022 10:01-0400 Diastolic blood pressure 88 mm[Hg] Filiberto M Hoy Work Phone: [facility] 250 DO Work Phone: 09-20-2022 10:01-0400 Diastolic blood pressure 84 mm[Hg] Filiberto M Hoy Work Phone: [facility] 250 DO Work Phone: 09-20-2022 10:01-0400 Diastolic blood pressure 86 mm[Hg] Filiberto M Hoy Work Phone: [facility] 250 DO Work Phone: 09-20-2022 10:01-0400 Systolic blood pressure 120 mm[Hg] Filiberto M Hoy Work Phone: [facility] 250 DO Work Phone: 09-20-2022 10:01-0400 Systolic blood pressure 122 mm[Hg] Filiberto M Hoy Work Phone: [facility] 250 DO Work Phone: 09-20-2022 09:59-0400 Body height 157.48 cm Filiberto M Hoy Work Phone: [facility] 250 DO Work Phone: 09-20-2022 09:59-0400 Body mass index (BMI) [Ratio] 30.36 kg/m2 Filiberto M Hoy Work Phone: [facility] 250 DO Work Phone: 09-20-2022 09:59-0400 Body surface area Derived from formula 1.77 m2 Filiberto M Hoy Work Phone: [facility] 250 DO Work Phone: 09-20-2022 09:59-0400 Body weight 75.3 kg Filiberto M Hoy Work Phone: [facility] 250 DO Work Phone: 09-20-2022 09:59-0400 Diastolic blood pressure 88 mm[Hg] Filiberto M Hoy Work Phone: [facility] 250 DO Work Phone: 09-20-2022 09:59-0400 Heart rate 85 /min Filiberto M Hoy Work Phone: [facility] 250 DO Work Phone: 09-20-2022 09:59-0400 Systolic blood pressure 120 mm[Hg] Filiberto M Stepan Work Phone: [facility] 250 DO Work Phone: 07-28-2022 13:01-0500 Body height 157.5 cm Somjita Braxton GROUP ACTIVITIES AIDE.PROTEIN SCIENTIST Work Phone: [facility] 07-28-2022 13:01-0500 Body temperature 97.81 [degF] Somjita Braxton GROUP ACTIVITIES AIDE.PROTEIN SCIENTIST Work Phone: [facility] 07-28-2022 13:01-0500 Body weight 79.11 kg Somjita Braxton GROUP ACTIVITIES AIDE.PROTEIN SCIENTIST Work Phone: [facility] 07-28-2022 13:01-0500 Diastolic blood pressure 59 mm[Hg] Somjita Braxton GROUP ACTIVITIES AIDE.PROTEIN SCIENTIST Work Phone: [facility] 07-28-2022 13:01-0500 Heart rate 85 /min Somjita Braxton GROUP ACTIVITIES AIDE.PROTEIN SCIENTIST Work Phone: [facility] 07-28-2022 13:01-0500 Systolic blood pressure 117 mm[Hg] Somjita Braxton GROUP ACTIVITIES AIDE.PROTEIN SCIENTIST Work Phone: [facility] Encounters Encounter Date Encounter Type Care Provider Facility Start: 09-17-2024 End: 09-17-2024 Emergency department patient visit Filiberto Ying MD Work Phone: [facility] Work Phone: Start: 08-01-2024 End: 08-01-2024 Emergency department patient visit Filiberto Ying MD Work Phone: [facility] Work Phone: Start: 07-30-2024 End: 07-30-2024 ambulatory HARMAN SULLIVAN Facility:[facility] Start: 07-30-2024 End: 07-30-2024 Patient encounter procedure [...] [facility] Comment on above: Fibroadenoma of flroy st, right (Primary Dx) Start: 06-23-2024 End: 06-23-2024 ambulatory DANO PYLE Not Available Start: 06-19-2024 End: 06-19-2024 Emergency department patient visit Filiberto Ying MD Work Phone: [facility] Work Phone: Start: 06-17-2024 End: 06-17-2024 Admission to same day surgery center Filiberto Ying MD Work Phone: [facility]Surgery [facility] Main [place] Start: 06-17-2024 End: 06-17-2024 ambulatory Filiberto Ying MD Work Phone: [facility] Work Phone: Start: 06-10-2024 End: 06-10-2024 Departed Referred Filiberto Ying MD Work Phone: [facility]Pre-Surgical Testing Work Phone: Start: 06-10-2024 End: 06-10-2024 Patient encounter procedure Filiberto Ying MD Work Phone: [facility] Work Phone: Start: 06-10-2024 End: 06-10-2024 ambulatory Filiberto Ying MD Work Phone: [facility] Work Phone: Start: 02-18-2024 End: 02-18-2024 ambulatory Reuben Bauman MD Facility:[facility] Start: 01-30-2024 End: 01-30-2024 ambulatory HARMAN SULLIVAN Facility:[facility] Start: 01-30-2024 End: 01-30-2024 Patient encounter procedure Harman Sullivan MD Work Phone: Neurology Comment on above: Chronic migraine wit hout aura, with intractable migraine, so stated, with status migrainosus (Primary Dx); Neck pain Start: 01-28-2024 End: 01-28-2024 Patient encounter procedure MD Filiberto Ying Work Phone: [facility] Start: 01-28-2024 End: 01-28-2024 ambulatory MD Filiberto Ying Work Phone: [facility] Work Phone: Start: 11-09-2023 ambulatory [facility] Neurology Comment on above: Paperwork Start: 11-09-2023 E-mail encounter kennedy aguilar caregiver [facility] Provider Neurology Start: 10-31-2023 Telephone encounter Harman fraser MD Work Phone: Neurology Comment on above: Appointment Start: 10-31-2023 End: 10-31-2023 ambulatory HARMAN SULLIVAN Facility:[facility] Start: 10-31-2023 End: 10-31-2023 Patient encounter procedure Harman Sullivan MD Work Phone: Neurology Comment on above: Chronic migraine wit hout aura, with intractable migraine, so stated, with status migrainosus (Primary Dx); Neck pain Start: 10-18-2023 Get Medical Advice Maria Del Carmen caraballo APRN.PROTEIN SCIENTIST Work Phone: Neurology Comment on above: Med refill Refill Request Start: 10-11-2023 Telephone encounter Harman fraser MD Work Phone: Neurology Comment on above: Insurance Authorizat ion (Botox) Start: 10-03-2023 ambulatory Maria Del Carmen LANDRYPROTEIN SCIENTIST Work Phone: Neurology Comment on above: Fmla Start: 09-21-2023 Telephone encounter Harman fraser MD Work Phone: Neurology Comment on above: Request Outside Medi britta Records Start: 09-21-2023 End: 09-21-2023 ambulatory HARMAN SULLIVAN Facility:[facility] Start: 09-21-2023 End: 09-21-2023 Patient encounter procedure Harman Sullivan MD Work Phone: Neurology Comment on above: Chronic migraine wit hout aura, with intractable migraine, so stated, with status migrainosus (Primary Dx); Neck pain; RLS (restless legs syndrome) Start: 09-15-2023 Refill Maria Del Carmen PHAM.PROTEIN SCIENTIST Work Phone: Neurology Comment on above: Refill Request Start: 09-04-2023 End: 09-04-2023 ambulatory Maria Del Carmen Bernarda MUKHERJEE.PROTEIN SCIENTIST Work Phone: Neurology Comment on above: Cervical dystonia (P rimary Dx) Start: 09-04-2023 End: 09-04-2023 Telemedicine consultation with patient Maria Del Carmen Broges LONNY.PROTEIN SCIENTIST Work Phone: [facility] Start: 09-03-2023 E-mail encounter fro m caregiver Maria Del Carmen Borges LONNY.PROTEIN SCIENTIST Work Phone: Neurology Start: 09-03-2023 Patient encounter procedure Maria Del Carmen Bernarda MUKHERJEE.PROTEIN SCIENTIST Work Phone: Neurology Comment on above: appointment Start: 07-30-2023 End: 07-30-2023 ambulatory VALERIO VALDEZSTEVE Not Available Start: 05-15-2023 End: 05-15-2023 Admission to same day surgery center MD Filiberto Ying Work Phone: [facility] Main [place] Start: 05-15-2023 End: 05-15-2023 ambulatory MD Filiberto Ying Work Phone: [facility] Work Phone: Start: 05-01-2023 End: 05-01-2023 ambulatory MD Filiberto Ying Work Phone: [facility] Work Phone: Start: 05-01-2023 End: 05-01-2023 Patient encounter procedure MD Filiberto Ying Work Phone: [facility]Pre[facility]urgical Testing Work Phone: Start: 04-05-2023 End: 04-05-2023 Admission to same day surgery center MD Filiberto Ying Work Phone: [facility] Start: 04-05-2023 End: 04-05-2023 ambulatory MD Filiberto Ying Work Phone: [facility] Work Phone: Start: 02-19-2023 Telephone encounter Maria Del Carmen Tucker on GROUP ACTIVITIES AIDE.PROTEIN SCIENTIST Work Phone: Neurology Comment on above: Results ([facility] ) Start: 02-09-2023 Telephone encounter Maria Del Carmen Tucker on GROUP ACTIVITIES AIDE.PROTEIN SCIENTIST Work Phone: Neurology Comment on above: Results ([facility] ) Start: 02-07-2023 End: 02-07-2023 ambulatory MD Filiberto Ying Work Phone: [facility] Work Phone: Start: 02-07-2023 End: 02-07-2023 Patient encounter procedure MD Filiberto Ying Work Phone: [facility]-Lab Main [place] Work Phone: Start: 01-19-2023 Orders Only Maria Del Carmen Giles PRN.PROTEIN SCIENTIST Work Phone: Neurology Start: 01-17-2023 ambulatory Maria Del Carmen Giles PRN.PROTEIN SCIENTIST Work Phone: Neurology Comment on above: Labs and rx Start: 01-12-2023 End: 01-12-2023 Patient encounter procedure Maria Del Carmen Borges GROUP ACTIVITIES AIDE.PROTEIN SCIENTIST Work Phone: Neurology Comment on above: Cervical dystonia (P rimary Dx); Neck tightness; RLS (restless legs syndrome) Start: 01-08-2023 Chart Update Filiberto Ying Work Phone: [facility] 320 DO Work Phone: Start: 12-28-[address] Soraya Arcos F acility:[id number] Start: 11-14-2022 ambulatory Soraya Arcos Facility:1 [id number] Start: 11-10-2022 FU, Provider: Saeed Castellanos, Status: Pen, Time: 8:50 AM Filiberto Ying Work Phone: [facility] Work Phone: Start: 11-10-[address] Saeed Castellanos Facility: Start: 11-02-[address] [facility] Facility: Start: 11-02-[address] Saeed Castellanos Facility: Start: 10-23-2022 End: 10-23-2022 ambulatory MD Filiberto Ying Work Phone: [facility] Work Phone: Start: 10-23-2022 End: 10-23-2022 Patient encounter procedure MD Filiberto Ying Work Phone: [facility]Electrodiagnostics Work Phone: Start: 10-23-2022 ambulatory Christophermaddiesally Aliahayder Faci lity:[id number] Start: 10-12-2022 End: 10-12-2022 Patient encounter procedure MD Filiberto Ying Work Phone: [facility] Work Phone: Start: 10-06-[address] FILIBERTO YING . Facili ty:H1 Start: 09-29-2022 EVENT [facility]ORY, Provider : MOOKIE YOUNG DOG LICENSE OFFICER SUPERVISOR 1,[id number], Status: Pen, Time: 1:00 PM Filiberto Ying Work Phone: [facility] 250 DO Work Phone: Start: 09-29-2022 Patient encounter procedure Filiberto Ying Work Phone: [facility] 250 DO Work Phone: Start: 09-29-[address] Saeed Castellanos Facility: Start: 09-20-2022 Office consultation new/estab patient 60 min Filiberto Ying Work Phone: [facility] 250 DO Work Phone: Start: 09-20-[address] Saeed Castellanos Facility: Start: 08-11-2022 End: 08-11-2022 ambulatory Nayely Limon APRN.PROTEIN SCIENTIST Work Phone: Rheumatology Comment on above: Neck pain, chronic ( Primary Dx); Fibromyalgia Start: 08-11-2022 End: 08-11-2022 Telemedicine consultation with patient Nayely Limon APRN.PROTEIN SCIENTIST Work Phone: [facility] Start: 07-28-2022 End: 07-28-2022 Subsequent hospital visit by physician Xr Main A21 Radiology Comment on above: Neck pain, chronic [ M54.2, G89.29] Start: 07-28-2022 End: 07-28-2022 Patient encounter procedure Nayely Limon APRN.PROTEIN SCIENTIST Work Phone: Rheumatology Comment on above: Neck [...] MD Filiberto Ying Work Phone: [facility] Main [place] Start: 01-09-2022 End: 01-09-[address] FABY RAYMOND . Facility:H1 Start: 01-03-2022 Encounter for genera l adult medical examination without abnormal findings DR FILIBERTO YING . [facility] Start: 12-31-2021 End: 01-01-[address] FILIBERTO YING . Facility:H1 Start: 12-31-2021 End: 01-01-2022 Encounter for general adult medical examination without abnormal findings DR FILIBERTO YING . Facility:H1 Start: 11-18-2021 End: 11-18-2021 Patient encounter procedure MD Filiberto Ying Work Phone: [facility]MRI Main [place] Procedures Date Procedure Procedure Detail Performing Clinician Start: 09-17-2024 CT of abdomen and pe lvis without contrast Filiberto Ying MD Work Phone: Start: 09-17-2024 Plain chest X-ray Anthony Ying MD Work Phone: Start: 08-01-2024 Viral nucleic acid assay Filiberto Ying MD Work Phone: Start: 08-01-2024 Plain chest X-ray Anthony Ying MD Work Phone: Start: 08-01-2024 X-ray of lumbar spin e, two or three views Filiberto Ying MD Work Phone: Start: 06-17-2024 Lumpectomy of right breast Filiberto Ying MD Work Phone: Start: 01-28-2024 Ultrasonography of right breast MD Filiberto Ying Work Phone: Start: 09-04-2023 Follow-up visit Follow Up MARIA DEL CARMEN BORGES Start: 05-15-2023 Lumpectomy of breast MD Filiberto Ying Work Phone: Start: 04-05-2023 Mammography of left breast MD Filiberto Ying Work Phone: Start: 04-05-2023 Ultrasonography of b ilateral breasts MD Filiberto Ying Work Phone: Start: 04-05-2023 Core needle biopsy o f breast using ultrasound guidance MD Filiberto Ying Work Phone: Start: 12-28-2022 Echocardiography Aman Ying Work Phone: Start: 10-12-2022 Bilateral mammography M Krishna Ying Work Phone: Start: 10-12-2022 Ultrasonography of b ilateral breasts MD Filiberto Ying Work Phone: Start: 07-28-2022 Radex spine cervical 4 or 5 views Somstephanieta Braxton GROUP ACTIVITIES AIDE.PROTEIN SCIENTIST Work Phone: Start: 07-28-2022 Radiologic exam chest 2 views Somjita Braxton GROUP ACTIVITIES AIDE.PROTEIN SCIENTIST Work Phone: Start: 11-18-2021 MRI of head MD Filiberto Ying Work Phone: Cholecystectomy Filiberto Zoe Peters y Work Phone: Esophagogastroduodenoscopy D ouglas Zoe Stepan Work Phone: Hysterectomy Filiberto Zoe Petersy Work Phone: Laparoscopy Filiberto Aguilar Stepan Work Phone: Tonsillectomy and adenoidectomy Filibertoxochitl Ying Work Phone: NEGATED: Highlighted row has not occurred! Total colonoscopy Filibertoxochitl Ying Work Phone: Plan of Treatment Date Care Activity Detail Author Start: 01-03-[address] [facility] Start: 02-06-2025 End: 02-06-2025 Patient encounter procedure 02/06/2025 3:00 PM EDT Office Visit Neurology [address] [place] [address] Harman Sullivan MD [address] [facility] [address] [place], [place] [address] botox Neurology Comment on above: botox Start: 10-29-2024 End: 10-29-2024 Patient encounter procedure 10/29/2024 4:30 PM EDT Office Visit Neurology [address] [place] [address] Harman Sullivan MD [address] [facility] [address] [place] [id number] F/u hold for botox Neurology Comment on above: F/u hold for botox Start: 07-30-2024 End: 07-30-2024 Patient encounter procedure 07/30/2024 4:30 PM EDT Office Visit Neurology [address] [place] [address] Harman Sullivan MD [address] [facility] [address] [place], [place] [id number] Botox Neurology Comment on above: Botox Start: 07-29-2024 End: 07-29-2024 Patient encounter procedure 07/29/2024 8:35 AM EDT Office Visit [facility] [address] [place] [id number] Valerio Velez APRN-PROTEIN SCIENTIST [address] [place] [address] [facility] Start: 06-17-2024 End: 06-17-2024 [facility] Start: 04-30-2024 End: 04-30-2024 Patient encounter procedure 04/30/2024 8:30 AM EST Office Visit Neurology [address] [place] [address] Harman Sullivan MD [address] [facility] [address] [place], [place] [id number] Botox Neurology Comment on above: Botox Start: 01-30-2024 End: 01-30-2024 Patient encounter procedure 01/30/2024 2:00 PM EDT Office Visit Neurology [address] [facility] [place] [address] Harman Sullivan MD [address] [facility] [address] [place], [place] [id number] Botox Neurology Comment on above: Botox Start: 01-20-2024 Covid-19 Vaccine () Covid-19 Vaccine () [facility] Start: 01-20-2024 Covid-19 Vaccine ( season) Covid-19 Vaccine () [facility] Start: 01-20-2024 Influenza vaccination C [facility] Start: 11-06-2023 End: 11-06-2023 Patient encounter procedure 11/06/2023 10:30 AM EDT Office Visit Neurology [address] [facility] [address] [place] [id number] Harman Sullivan MD [address] [facility] [address] [place], [place] [address] Three week follow up Neurology Comment on above: Three week follow up Start: 10-31-2023 End: 10-31-2023 Patient encounter procedure 10/31/2023 10:30 AM EDT Office Visit Neurology [address] [place] [address] Harman Sullivan MD [address] [facility] [address] [place], [place] [id number] Botox auth approved Neurology Comment on above: Botox auth approved Start: 09-21-2023 End: 09-21-2023 Patient encounter procedure 09/21/2023 8:30 AM EDT Office Visit Neurology [address] [place] [address] Harman Sullivan MD [address] [address] [place], [place] [id number] Cervical dystonia [G24.3] Neurology Comment on above: Cervical dystonia [G 24.3] Start: 05-21-2023 Behavioral Health Screening Behavioral Health Screening [facility] Start: 05-15-2023 [facility] Start: 05-15-2023 [facility] Start: 04-05-2023 [facility] Start: 03-16-2023 FUV, Provider: Soraya Arcos, Status: Pen, Time: 1:00 PM FUV, Provider: Soraya Arcos, Status: Pen, Time: 1:00 PM [place] [address] DO Work Phone: Start: 01-19-2023 Covid-19 Vaccine () Covid-19 Vaccine () [facility] Start: 01-19-2023 Influenza vaccination [facility] Start: 01-12-2023 End: 03-14-2023 CBC panel - Blood by Automated count CBC Lab Routine RLS (restless legs syndrome) Expected: 01/12/2023, Expires: 03/14/2023 [facility] Work Phone: Comment on above: Expected: 01/12/2023 , Expires: 03/14/2023 Start: 01-12-2023 End: 03-14-2023 Cobalamin (Vitamin B12) [Mass/volume] in Serum or Plasma VITAMIN B12 BLOOD Lab Routine RLS (restless legs syndrome) Expected: 01/12/2023, Expires: 03/14/2023 [facility] Work Phone: Comment on above: Expected: 01/12/2023 , Expires: 03/14/2023 Start: 01-12-2023 End: 03-14-2023 Comprehensive metabolic 2000 panel - Serum or Plasma COMP METABOLIC PANEL Lab Routine RLS (restless legs syndrome) Expected: 01/12/2023, Expires: 03/14/2023 [facility] Work Phone: Comment on above: Expected: 01/12/2023 , Expires: 03/14/2023 Start: 01-12-2023 End: 03-14-2023 Ferritin [Mass/volume] in Serum or Plasma FERRITIN BLD Lab Routine RLS (restless legs syndrome) Expected: 01/12/2023, Expires: 03/14/2023 [facility] Work Phone: Comment on above: Expected: 01/12/2023 , Expires: 03/14/2023 Start: 01-12-2023 End: 03-14-2023 Iron and Iron binding capacity panel - Serum or Plasma IRON + TIBC Lab Routine RLS (restless legs syndrome) Expected: 01/12/2023, Expires: 03/14/2023 [facility] Work Phone: Comment on above: Expected: 01/12/2023 , Expires: 03/14/2023 Start: 11-14-2022 NPVRFRL, Provider: Soraya Arcos, Status: Pen, Time: 4:20 PM NPVRFRL, Provider: Soraya Arcos, Status: Pen, Time: 4:20 PM [facility] Work Phone: Start: 11-10-2022 FUV, Provider: Saeed Castellanos, Status: Pen, Time: 8:50 AM FUV, Provider: Saeed Castellanos, Status: Pen, Time: 8:50 AM [facility] 250 DO Work Phone: Start: 10-23-2022 SURGNONUH, Provider: Romero Jones, Status: Pen, Time: 2:00 PM SURGNONUH, Provider: Romero Jones, Status: Pen, Time: 2:00 PM -[facility] 250 DO Work Phone: Start: 09-29-2022 EVENT [facility], Provider : MOOKIE YOUNG DOG LICENSE OFFICER SUPERVISOR 1,[id number], Status: Pen, Time: 1:00 PM EVENT [facility], Provider: MOOKIE YOUNG DOG LICENSE OFFICER SUPERVISOR 1,[id number], Status: Pen, Time: 1:00 PM -[facility] 250 DO Work Phone: Start: 05-21-2022 DEPRESSION ASSESSMENT DEPRESSION ASS ESSMENT [facility] Start: 01-19-2022 Influenza vaccination INFLUENZA (#1) [facility] Start: 2017 HPV TESTING HPV TESTING [facility] Start: 2017 Screening for malign ant neoplasm of cervix HPV Testing [facility] Start: 01-07-2008 PAP TESTING PAP TESTING [facility] Start: 01-07-2008 Screening for malign ant neoplasm of cervix [facility] Start: 2006 Hepatitis B Vaccine (1 of 3 - + 3-dose series) Hepatitis B Vaccine (1 of - + 3-dose series) [facility] Start: 2005 Anxiety Screening Anxiety Screening [facility] Start: 2005 Depression Screening Depression Scre ening [facility] Start: 2005 HEPATITIS C SCREENING HEPATITIS C [facility] Start: 2005 Hepatitis C screening Hepatitis C [facility] Start: 2005 HIV SCREENING HIV SCREENING [facility] Start: 2005 HIV screening HIV Screening [facility] Start: 1987 COVID-19 VACCINE (#1) COVID-19 VACCI NE (#1) [facility] Start: 1987 HEPATITIS B (1 of 3 - 3-dose series) HEPATITIS B (1 of 3 - 3-dose series) [facility] Start: 1987 Hepatitis B Vaccine (1 of 3 - 3-dose series) Hepatitis B Vaccine (1 of 3 - 3-dose series) [facility] Patient Education [facility] Work Phone: Patient referral [facility] Work Phone: [facility] Immunizations Immunization Date Immunization Notes Care Provider Alina peacock 01-04-2020 tetanus toxoid, redu hawa diphtheria toxoid, and acellular pertussis vaccine, adsorbed Xr A21 [facility] 07-27-2016 tetanus toxoid, redu hawa diphtheria toxoid, and acellular pertussis vaccine, adsorbed Xr [address] [facility] Payers Date Payer Category Payer [facility] Care [facility] (unspecified) [employer] [id number] 2022 Private Health Insurance [id number] 2022 Private Health Insurance [id number] 2022 Medicaid [place] [employer] [place] MED[place] [id number] 2022-Present [phone] [facility] [id number] [place] [address] Medicaid [id number] 1987 Unknown [id number] 2.16.840.1.524414.3.579. 2.593 1987 Unknown [id number] 2.16.840.1.774718.3.579. 2.593 1987 Unknown [id number] 2.16.840.1.008605.3.579. 2.593 1987 Unknown [id number] 2.16.840.1.881171.3.579. 2.593 1987 Unknown [id number] 2.16.840.1.181789.3.579. 2.593 1987 Unknown [id number] 2.16.840.1.483973.3.579. 2.593 1987 Unknown [id number] 2.16.840.1.329167.3.579. 2.593 1987 Unknown [id number] 2.16.840.1.547077.3.579. 2.593 1987 Unknown [id number] 2.16.840.1.139645.3.579. 2.593 1987 Unknown [id number] 2.16.840.1.055660.3.579. 2.1068 1987 Unknown [id number] 2.16.840.1.612591.3.579. 2.356 1987 Unknown [id number] 2.16.840.1.251341.3.579. 2.356 1987 Unknown [id number] 2.16.840.1.685815.3.579. 2.356 1987 Unknown [id number] 2.16.840.1.511567.3.579. 2.356 1987 Unknown [id number] 2.16.840.1.341921.3.579. 2.356 1987 Unknown [id number] 2.16.840.1.730790.3.579. 2.356 1987 Unknown [id number] 2.16.840.1.547528.3.579. 2.356 1987 Unknown [id number] 2.16.840.1.021284.3.579. 2.196 1987 Unknown [id number] 2.16.840.1.643179.3.579. 2.1259 1987 Unknown [id number] 2.16.840.1.621660.3.579. 2.1259 1959 Medicaid [id number] Medicaid [place] Advantage [id number] Self-pay Self Pay [id number] Unknown [place] BC/BS [id number] Unknown [id number] Unknown HCAP/HFA/FAP Active [id number] Social History Date Type Detail Facility Start: 12-24-2020 End: 09-17-2024 Tobacco smoking status NHIS Never smoked tobacco (finding) [facility] Start: 1985 Sex Assigned At Female F [facility] Start: 06-13-2012 End: 02-06-2023 Tobacco use and exposure Smokeless tobacco non-user [facility] Work Phone: Start: 07-28-2022 End: 01-30-2024 Alcohol intake Current non-drinker of alcohol (finding) [facility] Start: 01-12-2023 End: 01-30-2024 No caffeine use No caffeine use [facility] Start: 01-12-2023 End: 01-30-2024 Tobacco use panel [facility] Adult Depression Screening Assessment [address] [facility] Start: 07-28-2022 Gender identity Identifies as female gender (finding) [facility] Start: 07-28-2022 Sexual orientation Heterosexual (fin ding) [facility] Start: 06-11-2024 End: 09-17-2024 Sex Female (finding) [facility] Start: 06-23-2024 Alcoholic beverage intake Lifetime non-drinker (finding) [facility] Start: 01-08-2023 Alcohol Comment Caffeine: none [facility] Start: 1985 Sex assigned at Not on file N [facility] NEGATED: Highlighted row [facility] Goals Date Patient Goal Desired Activity /State Clinical Notes 02-16-2022 to 09-17-2024 Harman Sullivan MD - 07/30/2024 4:22 PM Dominique Pyle DO - 06/23/2024 1:15 PM Harman Johansen MD - 01/30/2024 1:49 PM EDTTelephone Encounter - Harman Sullivan MD - 11/01/2023 9:17 AM EDT Note Date & Type Note Facility 09-17-2024 Radiology Diagnostic study note [facility] [place] [address] CT Scan Report Signed Patient: Brittanie Garcia MR# : [id number] : 1985 Acct:[id number] Age/Sex: 39 / F ADM Date: 5 Loc: ER Room: Type: [facility] ER Attending Dr: Copies to: DO Peg Aldridge DO~ Ordering Provider: Iftikhar Cisneros DO Date of Service: 09/17/24 CT/CT abdomen pelvis wo con: r/o L obstructing stone CT ABDOMEN AND PELVIS WITHOUT INTRAVENOUS CONTRAST: CLINICAL HISTORY: Left flank pain COMPARISON: None TECHNIQUE: Spiral images were obtained through the abdomen and pelvis without intravenous contrast. This CT exam was performed using one or more following dose reduction techniques: Automated exposure control, adjustment of the mA and/or kV according to patient size, or use of iterative reconstruction technique. FINDINGS: Lung Bases: [Bibasilar atelectasis] Organs:Suboptimal evaluation due to lack of IV contrast. Gallbladder has been removed. Splenic granulomas. Liver pancreas adrenal glands and aorta all appear unremarkable. Bilateral nephrolithiasis, largest stone measuring 3 mm involving the right kidney. No hydronephrosis. No ureteral calculus. Subcentimeter hyperdense lesion left kidney too small fracture characterization. Aorta appears normal in caliber.[ GI: Stomach is grossly unremarkable. Small bowel appears nondilated. No acute colonic abnormality.[ Pelvis:[Urinary bladder is grossly unremarkable. Uterus has been removed. No adnexal mass.] Peritoneum/Retroperitoneum:No free air free fluid or lymphadenopathy.[ Abd wall/Bones:No acute findings. Osseous structures demonstrate degenerative change.[ CT/CT abdomen pelvis wo con IMPRESSION: Bilateral nephrolithiasis. No obstructive uropathy. Impression dictated by: Prince Heath Jr., D.OLatisha 09/17/2024 8:21 AM Dictation Location: [place] [address] Transcribed By: [facility] 09/17/24820 Dictated By: Prince Heath Jr, DO 09/17/24 0818 Signed By: 09/17/24 0821 [facility] 09-17-2024 Hospital Discharg e instructions Additional Instructions Your CAT scan showed that you have kidney stones, but they are not stuck anywhere and so they are not causing your pain today. Take Motrin Tylenol as needed for pain. Take Keflex as prescribed for UTI which may be causing your pain. Follow-up with PCP for recheck next 5 to 7 days. [facility] Work Phone: 07-30-2024 Note HNO ID: [id number] Author: HARMAN SULLIVAN MD Service: ? Author Type: Physician Type: Progress Notes Filed: 07/30/2024 16:57 Note Text: BOTOX PREEMPT PROTOCOL Total headache [...] brought in by patient? No Lot #: [id number] Exp: 09/2026 Dilution: 5 units/0.1 ml (100 [...] Optional follow pain # units L R Assembly Instructions Writer 10 units divided in 2 sites XXXXXXX [...] in Treatment Plan? No Harman Sullivan MD [facility] 07-30-2024 History of Presen t illness Narrative [...] brought in by patient? No Lot #: [id number] Exp: 09/2026 Dilution: 5 units/0.1 ml (100 [...] Optional follow pain # units L R Assembly Instructions Writer 10 units divided in 2 sites XXXXXXX [...] Harman Sullivan MD documented in this encounter [facility] 06-23-2024 History of Presen t illness Narrative Images from the original note were not included. Brittanie Garcia is a 39 y.o. female presents for 1st po Exc. bilateral breast masses HPI: HPI Brittanie is post op from right breast excision [...] ADH in both specimens. [facility] the [facility] and the response was that ADH confined to a fibroadenoma does not pose the same risk as ADH in a breast mass and no treatment is necessary. I'll see her PRN documented in this encounter [facility] 01-30-2024 Note HNO ID: [id number] Author: HARMAN SULLIVAN MD Service: ? Author [...] brought in by patient? No Lot #: [id number] Exp: 03/2026 Dilution: 5 units/0.1 ml (100 [...] Optional follow pain # units L R Assembly Instructions Writer 10 units divided in 2 sites XXXXXXX [...] in Treatment Plan? No Harman Sullivan MD [facility] 01-30-2024 History of Presen t illness Narrative [...] brought in by patient? No Lot #: [id number] Exp: 03/2026 Dilution: 5 units/0.1 ml (100 [...] Optional follow pain # units L R Assembly Instructions Writer 10 units divided in 2 sites XXXXXXX [...] did tolerate procedure. Change in Treatment Plan? Ayleen Sullivan MD documented in this encounter [facility] 11-01-2023 Telephone encounter Note We may need to start reserving some slots for Botox if I'm booking out more than 3 months. Is that something escalating to admin can accomplish? Maybe having like 3 follow up slots a week for botox that revert to regular if not booked a few weeks before that date. [facility] 11-01-2023 Miscellaneous Notes We may need [...] 29 and after. documented in this encounter [facility] 10-31-2023 Note HNO ID: [id number] Author: HARMAN SULLIVNA MD Service: ? Author Type: Physician Type: [...] BOTOX brought in by patient? No Lot #:[id number] Exp: 10/2025 Dilution: 5 units/0.1 ml (100 [...] Optional follow pain # units L R Assembly Instructions Writer 10 units divided in 2 sites XXXXXXX [...] in Treatment Plan? No Harman Sullivan MD [facility] 10-31-2023 History of Presen t illness Narrative [...] BOTOX brought in by patient? No Lot #:[id number] Exp: 10/2025 Dilution: 5 units/0.1 ml (100 [...] Optional follow pain # units L R Assembly Instructions Writer 10 units divided in 2 sites XXXXXXX [...] Harman Sullivan MD documented in this encounter [facility] 10-31-2023 Telephone encounter Note Placed at desk for review. [facility] 10-31-2023 Miscellaneous Notes Placed at desk for review. Patient brought in [facility] paperwork for Dr. Sullivan to fill out. Forms placed in providers mailbox. documented in this encounter [facility] 10-31-2023 Telephone encounter Note Patient needs a botox appointment slot opened anytime [address] [facility] 10-31-2023 Telephone encounter Note Patient brought in [facility] paperwork for Dr. Sullivan to fill out. Forms placed in providers mailbox. [facility] 10-19-2023 Telephone encounter Note Per Epic referral, Botox is approved. 10/16/23 to 10/14/24 200 units every 12 weeks Called patient, and she is agreeable to using the SunOctober 30 slot to get her Botox in [place]. Per Dr. Sullivan, she does not need to then also keep her November [address] [facility] 10-19-2023 Miscellaneous Notes Per Epic referral, Botox is approved. 10/16/23 to 10/14/24 200 units every 12 weeks Called patient, and she is agreeable to using the SunOctober 30 slot to get her Botox in [place]. Per Dr. Sullivan, she does not need to then also keep her November 05 appt. Prior Authorization PENDING Medication/ Treatment: BOTOX Submitted Via Epic Referral Attempted to submit via phone to expedite request, but plan does not allow this. documented in this encounter [facility] 10-18-2023 Miscellaneous Notes Images from the original note were not included. Maria Del Carmen Borges, LONNY.PROTEIN SCIENTIST You6 minutes ago (8:35 AM) I can for this time, but Dr. Hernandez moving forward as he is managing her neck tightness. LI McculloughN, RN, BA documented in this encounter [facility] 10-18-2023 Telephone encounter Note Images from the original note were not included. Maria Del Carmen Borges APRN.PROTEIN SCIENTIST You6 minutes ago (8:35 AM) I can for this time, but Dr. Hernandez moving forward as he is managing her neck tightness. PRATIBHA Mccullough, RN, BA [facility] Work Phone: 10-11-2023 Telephone encounter Note Prior Authorization PENDING Medication/ Treatment: BOTOX Submitted Via Epic Referral Attempted to submit via phone to expedite request, but plan does not allow this. [facility] 10-03-2023 Telephone encounter Note Images from the original note were not included. Maria Del Carmen Borges APRN.PROTEIN SCIENTIST You6 minutes ago (3:03 PM) As she is now working with movement disorder for this concern, I would defer this to their team. PRATIBHA Mccullough, RN, BA [facility] Work Phone: 10-03-2023 Miscellaneous Notes Images from the original note were not included. Maria Del Carmen Borges APRN.PROTEIN SCIENTIST You6 minutes ago (3:03 PM) As she is now working with movement disorder for this concern, I would defer this to their team. PRATIBHA Mccullough, RN, BA documented in this encounter [facility] 09-21-2023 Instructions Harman Sullivan MD - [...] can increase further documented in this encounter [facility] 09-21-2023 Telephone encounter Note Requested image transfer from [facility] for most recent head/ neck imaging. [facility] 09-21-2023 Note HNO ID: [id number] Author: HARMAN SULLIVAN MD Service: ? 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 [facility] 09-21-2023 History of Presen t illness Narrative [...] referral records from Maria Del Carmen Borges [facility] Assessment/Plan Assessment & Plan: Brittanie Garcia is a 38 year old right-handed female with a history of chronic migraine, neck pain previously diagnosed as cervical dystonia, and RLS who presents to [facility]. Her examination demonstrates normal head position [...] next month for Botox. Harman Sullivan MD [facility] Neurology documented in this encounter [facility] 09-21-2023 Miscellaneous Notes Requested image transfer from [facility] for most recent head/ neck imaging. documented in this encounter [facility] 09-13-2023 Telephone encounter Note Images from the original note were not included. Maria Del Carmen Borges APRN.ZULMA You 58 minutes ago (1:58 PM) Keep the appointment until she sees Dr. Sullivan on September 20. PRATIBHA Mccullough, RN, BA [facility] Work Phone: 09-13-2023 Miscellaneous Notes Images from the original note were not included. Maria Del Carmen Borges APRN.ZULMA You 58 minutes ago (1:58 PM) Keep the appointment until she sees Dr. Sullivan on September 20. PRATIBHA Mccullough, RN, BA documented in this encounter [facility] 09-04-2023 History of Presen t illness Narrative Brittanie Garcia is a 38 year old female. Patient presents with: Follow Up Today I had the opportunity to have a virtual visit with Brittanie Garcia I have communicated my name and active licensure. The patient's identity and physical location were verified at the time of this visit. Either the patient or their legal paper sales representative has been informed of the risks [...] disorder clinic here at [facility] for an opinion about her cervical [...] which included preparing to see the patient, pohw-ci-myse patient care, completing clinical documentation, obtaining and/or reviewing separately obtained history, and counseling and educating the patient/family/caregiver. There is no problem list on file for this patient. No orders found for this visit on 09/04/23. Maria Del Carmen Borges MSN, GROUP ACTIVITIES AIDE, TRANSFERRER-C documented in this encounter [facility] 09-04-2023 Note HNO ID: [id number] Author: MARIA DEL CARMEN BORGES APRN.ZULMA Service: [...] visit. Either the patient or their legal paper sales representative has been informed of the risks [...] disorder clinic here at [facility] for an opinion about her cervical [...] with her Mari (more content not included)... [facility] 02-19-2023 Miscellaneous Notes Images from the original note were not included. Maria Del Carmen Borges APRN.PROTEIN SCIENTIST You 1 minute ago (12:27 PM) Thank you. This is a normal value. PRATIBHA Louis, RN, BA Images from the original note were not included. Evonne GAMBOA BSN, RN, BA Scanned in medical records from [facility] for review documented in this encounter [facility] 02-09-2023 Miscellaneous Notes Images from the original note were not included. Maria Del Carmen Borges APRN.ZULMA You 2 minutes ago (10:23 AM) Reviewed. PRATIBHA Louis, RN, BA Scanneed in medical records from [facility] for review documented in this encounter [facility] 01-19-2023 Miscellaneous Notes Images from the original note were not included. Maria Del Carmen Borges, LONNY.PROTEIN SCIENTIST You 21 minutes ago (8:34 AM) I sent cyclobenzaprine (Flexeril) 5 mg at bedtime as needed PRATIBHA Mccullough, RN, BA documented in this encounter [facility] 01-12-2023 History of Presen t illness [...] Most likely receiving 65 units between procerus, teasel gig operator, frontalis, and temporalis muscles. Only receiving 90 [...] Tizanidine Methocarbamol Metaxalone Carisoprodol She does have Pala prescribed for the neck pain. 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 Finger extensor 5/5. Finger flexor 5/5. Pronation [...] clonus of ankles. Coordination: Finger-to- nose-finger and lhkk-yc-rsdy intact bilaterally. No ataxia of arms. No [...] disorder clinic here at [facility] for an opinion about her cervical [...] which included preparing to see the patient, nmsa-ie-jxno patient care, completing clinical documentation, obtaining and/or reviewing separately obtained history, performing a medically appropriate examination, counseling and educating the patient/family/caregiver, and ordering medications, tests, or procedures. There is no problem list on file for this patient. Office Visit on 01/12/23 CBC FERRITIN BLD IRON + TIBC VITAMIN B12 BLOOD COMP METABOLIC PANEL CONSULT TO NEUROLOGY Maria Del Carmen Borges MSN, GROUP ACTIVITIES AIDE, TRANSFERRER-C 1. The nursing staff and medical assistants [...] your PCP/referring physician documented in this encounter [facility] 08-11-2022 Instructions Nayely Limon APRN.CNP - 08/11/2022 10:44 AM EDT Please send MRI result to us. Placed a consult for neuromuscular. Please call [phone] for appointments. I would suggest to bring your MRI (CD) to this appointment. Placed a consult for functional medicine. Please call [phone] for appointments. Follow up as needed documented in this encounter [facility] 08-11-2022 History of Presen t illness Narrative Images from the original note were not included. Rheumatology FOLLOW UP VISIT Date of Service: 08/11/2022 Patient: Brittanie Garcia Medical Record: [id number] Primary Care Physician: Filiberto Ying MD Last Rheumatology visit: 07/28/2022 (with Nayely Limon) I have communicated my name and active licensure. The patient's identity and physical location were verified at the time of this visit. 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 Started Seeing pain management since April for headache and neck pain. She has Pala takes once a week. Hx of restless [...] Clinical Fibromyalgia Diagnostic Criteria questionnaire Questionnaire scores: [place] sleepiness scale: 15 (Normal < 10) MDQ (mood disorder questionnaire): 6 (Normal < 7) PHQ (patient health questionnaire): depression 10 (Normal < 5), anxiety 9 (Normal < 5) Fibromyalgia evaluation: Wide spread pain scale (WPI) 7, symptom severity (SS) 9 The patient meets the 2016 ACR ([place] [employer]) revised criteria for fibromyalgia [...] an optimal response to treatment. Nayely Limon APRN.PROTEIN SCIENTIST Return if symptoms worsen or fail to [...] Time: 8:44 AM documented in this encounter [facility] 07-28-2022 Instructions Nayely Limon APRN.CNP - 07/28/2022 1:58 PM EST Obtain lab and XR today Follow up in 10-14 days documented in this encounter [facility] 07-28-2022 History of Presen t illness Narrative Images from the original note were not included. Rheumatology CONSULTATION Date of Service: 07/28/2022 Patient: Brittanie Garcia Medical Record: [id number] Primary Care Physician: Filiberto Ying MD, MD Last Rheumatology visit: 07/28/2022 (with Nayely Limon) Referring Provider: Kenna Sheehan [address] [place] [id number] Brittanie Garcia is here today at request of Kenna Sheehan PA-C specifically for consultation of my opinion in regards to the chief complaint listed below. 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 Started Seeing pain management since April for headache and neck pain. She has Pala takes once a week. Hx of restless [...] Take 1 mg by mouth once daily. Szslsiwq-Ax-Xac-Fe-FA (P-D PLUS) Tab Take 1 tablet by [...] - XR CHEST 2V FRONTAL/LAT Nayely Limon APRN.PROTEIN SCIENTIST Return in about 10 days (around 08/07/2022). I spent a total of 75 minutes on the date of the service which included preparing to see the patient, xzmg-bi-qkoj patient care, completing clinical documentation, obtaining and/or [...] Time: 2:07 PM documented in this encounter [facility] 07-06-2022 Note CONSULTATION CONSULTATION DATE: 07/06/2022 [...] no difference. She was also started on Pala 5/325 daily p.r.n., which she says is helpful. We obtained a cervical x-ray back in January, which shows very minimal pathology between C2 and C3 discs. At this time, procedures are not indicated. Medications includes Pala 5/325 daily, baclofen 10 mg b.i.d., Ambien [...] time, our clinic will just maintain her Pala 5/325 daily p.r.n. She will continue for treatments with [facility]. I did recommend, however, to continue with self massage and to trial home cervical traction. We will see the patient in three months' time to maintain her medications and patient is in agreement. [facility] 04-06-2022 Note CONSULTATION PAIN MANAGEMENT CONSULTATION [...] stated that today she has seen an baton twirler due to having lock jaw episodes. 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 She describes her headaches [...] as she agrees to this plan. [facility] 03-02-2022 Note CONSULTATION CONSULTATION DATE: 03/02/2022 [...] Activities such as pushing, pulling, lying down, early childhood aide classroom hours and housework aggravate her pain. The [...] and all questions are answered today. [facility] 02-16-2022 Note CONSULTATION CONSULTATION DATE: 02/16/2022 [...] worsened at that time. 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 [facility] Chief complaint Narrative - Reported BRITTANIE [...] Notably she has no rebound tachycardia.Recommendations, obtain [facility] monitoring, tilt table test, refer to either EP or syncope clinic, I can follow-up on a as needed basis, as there is no interventional necessity at this time [facility] [address] DO Work Phone: Chief complaint Narrative [...] Notably she has no rebound tachycardia.Recommendations, obtain [employer] monitoring, tilt table test, refer to either EP or syncope clinic, I can follow-up on a as needed basis, as there is no interventional necessity at this time [facility] Work Phone: Chief complaint Narrative - [...] Notably she has no rebound tachycardia.Recommendations, obtain [employer] monitoring, tilt table test, refer to either EP or syncope clinic, I can follow-up on a as needed basis, as there is no interventional necessity at this time [facility] [address] DO Work Phone: [...] has no rebound tachycardia.Recommendations, obtain [facility] monitoring, tilt table test, refer to either EP or syncope clinic, I can follow-up on a as needed basis, as there is no interventional necessity at this time [facility] Work Phone: Evaluation note No assessment inform ation available [facility] Work Phone: Evaluation note Diagnosis Neck pain, chronic [facility]ervicalgia [facility] Neck [facility], chronic- Primary Cervicalgia [facility] Diagnosis Neck pain, chronic- Primary Cervicalgia Fibromyalgia Mylagia and myositis, unspecified [facility] Diagnosis Cervical dystonia- Primary Spasmodic torticollis Neck tightness Unspecified musculoskeletal disorders and symptoms referable to neck RLS (restless legs syndrome) Restless legs syndrome (RLS) [facility] Diagnosis Onset Date Resolution Status Left breast mass acute [facility] Work Phone: Evaluation note* Diagnosis Cervical dystonia- Primary Spasmodic torticollis [facility] Chronic migraine without aura, with intractable migraine, so stated, with status migrainosus- Primary Neck pain Cervicalgia RLS (restless legs syndrome) Restless legs syndrome (RLS) [facility] Diagnosis Chronic migraine without aura, with intractable migraine, so stated, with status migrainosus- Primary Neck pain Cervicalgia [facility]* Diagnosis Chronic migraine without aura, with intractable migraine, so stated, with status migrainosus- Primary Neck pain Cervicalgia [facility]* Diagnosis Fibroadenoma of breast, right- Primary [facility]* Diagnosis Chronic migraine without aura, with intractable migraine, so stated, with status migrainosus- Primary Neck pain Cervicalgia [facility] Additional Instructions DISCHARGE INSTRUCTIONS FOR [...] directed for pain unless a prescription was provided.[facility] Work Phone: Hospital Discharge instructions Additional Instructions [...] directed for pain unless a prescription was provided.[facility] Work Phone: Hospital Discharge instructions Additional Instructions If your symptoms return/worsen or you develop any further concerns or symptoms please see your doctor or return to the emergency department immediately. It is imperative that you go over today's visit and all results with your primary care provider.[facility] Work Phone: Reason for referral (narrative)* Diagnostic Procedure Only (Routine) - Closed Specialty Diagnoses / Procedures Referred By Ross manuel Referred To Contact XR IMAGING Diagnoses Neck pain, chronic Procedures XR CERV OTHER 4V AP/LAT/OBL RADEX SPINE CERVICAL 4 OR 5 VIEWS Nayely Limon APRN.PROTEIN SCIENTIST [address] [place] [id number] Xr Imaging Referral ID Status Reason Start Date Expiration Date V isits Requested Visits Authorized [id number] Closed Auto-Generate d Referral 07/28/2022 08/27/2023 1 1 [facility] for referral (narrative)* Diagnostic Procedure Only (Routine) - Closed Specialty Diagnoses / Procedures Referred By Ross manuel Referred To Contact XR IMAGING Diagnoses Neck pain, chronic Procedures XR CERV OTHER 4V AP/LAT/OBL RADEX SPINE CERVICAL 4 OR 5 VIEWS Nayely Limon APRN.CNP [address] [id number] Xr Imaging Referral ID Status Reason Start Date Expiration Date V isits Requested Visits Authorized [id number] Closed Auto-Generate d Referral 07/28/2022 08/27/2023 1 [facility] Diagnostic Procedure Only (Routine) - Closed Specialty Diagnoses / Procedures Referred By Ross manuel Referred To Contact XR IMAGING Diagnoses Neck pain, chronic Procedures XR CERV OTHER 4V AP/LAT/OBL RADEX SPINE CERVICAL 4 OR 5 VIEWS Nayely Limon APRN.CNP [address] [id number] Xr Imaging Referral ID Status Reason Start Date Expiration Date V isits Requested Visits Authorized [id number] Closed Auto-Generate d Referral 07/28/2022 08/27/[address] [facility] Chief Complaint and Reason for Visit [...] Neck Spasms June 19, 2024 1 :44pm Chief Complaint Admit Date Right Breast Masses June 10, 2024 1 1:12am Right Breast Masses June 17, 2024 6 :28am Neck Spasms June 19, 2024 1 :44pm neck spams, back pain, cough, fever [facility] 2024 7:42am Chief Complaint Admit Date Neck Spasms June 19, 2024 1 :44pm neck spams, back pain, cough, fever [facility] 2024 7:42am chest pain/rt rib & arm pain September 17, 2024 5:00am Advance Directives No Advanced Directives Records Found Advance Directive Response Recorded Date/ Time Advance Directives No August 04 7:56am Advance Directive Response Recorded Date/ Time Advance Directives No August 04 6:56am Reason for Referral Specialty Diagnoses / Procedures Referred By Contac t Referred To Contact Neurology Diagnoses Neck pain, chronic Procedures CONSULT TO NEUROLOGY OFFICE/OUTPATIENT [facility] 60-74 MINUTES Nayely Limon APRN.PROTEIN SCIENTIST [address] [place] [address] Referral ID Status Reason Start Date Expiration Date Visits Requested Visits Authorized [id number] Authorized PCP Requested Referral 08/11/2022 08/11/2023 1 1 Specialty Diagnoses / Procedures Referred By Contac t Referred To Contact Diagnoses Fibromyalgia Procedures CONSULT TO FUNCTIONAL MEDICINE OFFICE/OUTPATIENT [facility] 60-74 MINUTES Nayely Limon APRN.PROTEIN SCIENTIST [address] [place] [address] Referral ID Status Reason Start Date Expiration Date Visits Requested Visits Authorized [id number] Authorized PCP Requested Referral 08/11/2022 08/11/2023 1 1 Specialty Diagnoses / Procedures Referred By Contac t Referred To Contact Neurology Diagnoses Cervical dystonia Neck tightness Procedures CONSULT TO NEUROLOGY OFFICE/OUTPATIENT [facility] 60-74 MINUTES Maria Del Carmen Borges, GROUP ACTIVITIES AIDE.PROTEIN SCIENTIST [id number] [place] [address] Referral ID Status Reason Start Date Expiration Date Visits Requested Visits Authorized [id number] Pending Review PCP Requested Referral 01/12/2023 01/12/2024 1 1 Specialty Diagnoses / Procedures Referred By Contac t Referred To Contact Neurology Diagnoses Cervical dystonia Procedures CONSULT TO NEUROLOGY OFFICE/OUTPATIENT [facility] 60 MINUTES Maria Del Carmen Borges, GROUP ACTIVITIES AIDE.PROTEIN SCIENTIST [id number] [place] [address] Referral ID Status Reason Start Date Expiration Date Visits Requested Visits Authorized [id number] Authorized PCP Requested Referral 09/04/2023 09/03/2024 1 [...] Filiberto Ying MD Primary Care Provider Active Dnao Pyle DO Attending Provider Active Team Status: Inactive Member Role Status Dates Filiberto Ying MD Primary Care Provider Active Kenna Sheehan PA-C Attending Provider Active End Packer Relationship Specialty Start Date End Date Filiberto Ying MD PCP - General Family Medicine 06/05/12 Kenna Sheehan PA-C [address] [place] [address] Referring Neurology 07/19/22 End Packer Relationship Specialty Start Date End Date Filiberto Ying MD PCP - General Family Medicine 06/05/12 Kenna Sheehan PA-C [address] [place] [address] Referring Neurology 07/19/22 End Packer Relationship Specialty Start Date End Date Filiberto Ying MD PCP - General Family Medicine 06/05/12 Kenna Sheehan PA-C [address] [address] Referring Neurology 07/19/22 End Packer Relationship Specialty Start Date End Date Filiberto Ying MD PCP - General Family Medicine 06/05/12 Kenna Sheehan PA-C [address] [address] Referring Neurology 07/19/22 End Packer Relationship Specialty Start Date End Date Filiberto Ying MD PCP - General Family Medicine 06/05/12 Kenna Sheehan PA-C [address] [phone] Referring Neurology 07/19/22 End Packer Relationship Specialty Start Date End Date Filiberto Ying MD PCP - General Family Medicine 06/05/12 Kenna Sheehan PA-C [address] [phone] Referring Neurology 07/19/22 End Packer Relationship Specialty Start Date End Date Filiberto Ying MD PCP - General Family Medicine 06/05/12 Kenna Sheehan PA-C [address] [address] Referring Neurology 07/19/22 Team Status: Inactive Member Role Status Dates Filiberto Ying MD Primary Care Provider Active Maria Del Carmen Borges APRN [facility] Attending Provider Active End Packer Relationship Specialty Start Date End Date Filiberto Ying MD PCP - General Family Medicine 06/05/12 Kenna Sheehan PA-C [address] [address] Referring Neurology 07/19/22 End Packer Relationship Specialty Start Date End Date Filiberto Ying MD PCP - General Family Medicine 06/05/12 Kenna Sheehan PA-C [address] [address] Referring Neurology 07/19/22 End Packer Relationship Specialty Start Date End Date Filiberto Ying MD PCP - General Family Medicine 06/05/12 Kenna Sheehan PA-C [address] [address] Referring Neurology 07/19/22 End Packer Relationship Specialty Start Date End Date Filiberto Ying MD PCP - General Family Medicine 06/05/12 Kenna Sheehan PA-C [address] [address] Referring Neurology 07/19/22 End Packer Relationship Specialty Start Date End Date Filiberto Ying MD PCP - General Family Medicine 06/05/12 Kenna Sheehan PA-C [address] [phone] Referring Neurology 07/19/22 End Packer Relationship Specialty Start Date End Date Filiberto Ying MD PCP - General Family Medicine 06/05/12 Kenna Sheehan PA-C [address] [phone] Referring Neurology 07/19/22 End Packer Relationship Specialty Start Date End Date Filiberto Ying MD PCP - General Family Medicine 06/05/12 Kenna Sheehan PA-C [address] [phone] Referring Neurology 07/19/22 Team Status: Inactive Member Role Status Dates Filiberto Ying MD Primary Care Provider Active Start: January 28, 2024 End: January 28, 2024 Dano Pyle DO Attending Provider Active Start: January 28, 2024 End: January 28, 2024 End Packer Relationship Specialty Start Date End Date Filiberto Ying MD PCP - General Family Medicine 06/05/12 Kenna Sheehan PA-C [address] [phone] Referring Neurology 07/19/22 Team Status: Inactive Member Role Status Dates Filiberto Ying MD Primary Care Provider Active Start: June 10, 2024 End: June 10, 2024 Dano Pyle DO Attending Provider Active Start: June 10, 2024 End: June 10, 2024 Team Status: Inactive Member Role Status Dates Filiberto Ying MD Primary Care Provider Active Start: June 17, 2024 End: June 17, 2024 Dano Pyle DO Attending Provider Active Start: June 17, 2024 End: June 17, 2024 Team Status: Inactive Member Role Status Dates Filiberto Ying MD Primary Care Provider Active Start: June 19, 2024 End: June 19, 2024 Babar Singh PA-C Emergency Provider Active Start: June 19, 2024 End: June 19, 2024 End Packer Relationship Specialty Start Date End Date Filiberto Ying MD [address] [place] [address] PCP - General Family Medicine 12/12/22 End Packer Relationship Specialty Start Date End Date Filiberto Ying MD PCP - General Family Medicine 06/05/12 Kenna Sheehan PA-C [address] [place] [address] Referring Neurology 07/19/22 Team Status: Inactive Member Role Status Dates Filiberto Ying MD Primary Care Provider Active Start: August 01, 2024 End: August 01, 2024 Luis Goins DO Emergency Provider Active Start: August 01, 2024 End: August 01, 2024 Team Status: Inactive Member Role Status Dates Filiberto Ying MD Primary Care Provider Active Start: September 17, 2024 End: September 17, 2024 Peg Ruiz DO Emergency Provider Active St art: September 17, 2024 End: September 17, 2024 Goals (unrecognized section and content) Goals [...] or prosecute any alcohol or drug abuse patient.[facility] Hospital[facility] the event this information is protected by the Federal Confidentiality of Alcohol and Drug Abuse Patient Records regulations: The Federal rules restrict any use of the information to criminally investigate or prosecute any alcohol or drug abuse patient.[facility] HospitalIn the event this information is protected by the Federal Confidentiality of Alcohol and Drug Abuse Patient Records regulations: The Federal rules restrict any use of the information to criminally investigate or prosecute any alcohol or drug abuse patient.[facility] HospitalIn the event this information is protected by the Federal Confidentiality of Alcohol and Drug Abuse Patient Records regulations: The Federal rules restrict any use of the information to criminally investigate or prosecute any alcohol or drug abuse patient.[facility] HospitalIn the event this information is protected by the Federal Confidentiality of Alcohol and Drug Abuse Patient Records regulations: The Federal rules restrict any use of the information to criminally investigate or prosecute any alcohol or drug abuse patient.[facility] HospitalIn the event this information is protected by the Federal Confidentiality of Alcohol and Drug Abuse Patient Records regulations: The Federal rules restrict any use of the information to criminally investigate or prosecute any alcohol or drug abuse patient.[facility] HospitalIn the event this information is protected by the Federal Confidentiality of Alcohol and Drug Abuse Patient Records regulations: The Federal rules restrict any use of the information to criminally investigate or prosecute any alcohol or drug abuse patient.[facility] HospitalIn the event this information is protected by the Federal Confidentiality of Alcohol and Drug Abuse Patient Records regulations: The Federal rules restrict any use of the information to criminally investigate or prosecute any alcohol or drug abuse patient.[facility] HospitalIn the event this information is protected by the Federal Confidentiality of Alcohol and Drug Abuse Patient Records regulations: The Federal rules restrict any use of the information to criminally investigate or prosecute any alcohol or drug abuse patient.[facility] HospitalIn the event this information is protected by the Federal Confidentiality of Alcohol and Drug Abuse Patient Records regulations: The Federal rules restrict any use of the information to criminally investigate or prosecute any alcohol or drug abuse patient.[facility] HospitalIn the event this information is protected by the Federal Confidentiality of Alcohol and Drug Abuse Patient Records regulations: The Federal rules restrict any use of the information to criminally investigate or prosecute any alcohol or drug abuse patient.[facility] HospitalIn the event this information is protected by the Federal Confidentiality of Alcohol and Drug Abuse Patient Records regulations: The Federal rules restrict any use of the information to criminally investigate or prosecute any alcohol or drug abuse patient.[facility] HospitalIn the event this information is protected by the Federal Confidentiality of Alcohol and Drug Abuse Patient Records regulations: The Federal rules restrict any use of the information to criminally investigate or prosecute any alcohol or drug abuse patient.[facility] HospitalIn the event this information is protected by the Federal Confidentiality of Alcohol and Drug Abuse Patient Records regulations: The Federal rules restrict any use of the information to criminally investigate or prosecute any alcohol or drug abuse patient.[facility] HospitalIn the event this information is protected by the Federal Confidentiality of Alcohol and Drug Abuse Patient Records regulations: The Federal rules restrict any use of the information to criminally investigate or prosecute any alcohol or drug abuse patient.[facility] HospitalIn the event this information is protected by the Federal Confidentiality of Alcohol and Drug Abuse Patient Records regulations: The Federal rules restrict any use of the information to criminally investigate or prosecute any alcohol or drug abuse patient.[facility] HospitalIn the event this information is protected by the Federal Confidentiality of Alcohol and Drug Abuse Patient Records regulations: The Federal rules restrict any use of the information to criminally investigate or prosecute any alcohol or drug abuse patient.[facility] HospitalIn the event this information is protected by the Federal Confidentiality of Alcohol and Drug Abuse Patient Records regulations: The Federal rules restrict any use of the information to criminally investigate or prosecute any alcohol or drug abuse patient.[facility] HospitalIn the event this information is protected by the Federal Confidentiality of Alcohol and Drug Abuse Patient Records regulations: The Federal rules restrict any use of the information to criminally investigate or prosecute any alcohol or drug abuse patient.[facility] HospitalIn the event this information is protected by the Federal Confidentiality of Alcohol and Drug Abuse Patient Records regulations: The Federal rules restrict any use of the information to criminally investigate or prosecute any alcohol or drug abuse patient.[facility] HospitalIn the event this information is protected by the Federal Confidentiality of Alcohol and Drug Abuse Patient Records regulations: The Federal rules restrict any use of the information to criminally investigate or prosecute any alcohol or drug abuse patient.[facility] HospitalIn the event this information is protected by the Federal Confidentiality of Alcohol and Drug Abuse Patient Records regulations: The Federal rules restrict any use of the information to criminally investigate or prosecute any alcohol or drug abuse patient.[facility] HospitalIn the event this information is protected by the Federal Confidentiality of Alcohol and Drug Abuse Patient Records regulations: The Federal rules restrict any use of the information to criminally investigate or prosecute any alcohol or drug abuse patient.[facility] HospitalIn the event this information is protected by the Federal Confidentiality of Alcohol and Drug Abuse Patient Records regulations: The Federal rules restrict any use of the information to criminally investigate or prosecute any alcohol or drug abuse patient.[facility] Reason for Visit (unrecogniz ed section and content) Reason Comments Neck Pain Reason Comments Neck Pain Follow up Reason Comments New Patient Reason Comments Results [facility] Reason Comments Results [facility] Reason Comments Follow Up Reason Onset Date Comments Refill Request 09/15/2023 Reason Comments Request Outside Medical Records Reason Comments Cervical Dystonia Specialty Diagnoses / Procedures Referred By Contac t Referred To Contact Neurology Diagnoses Cervical dystonia Procedures CONSULT TO NEUROLOGY OFFICE/OUTPATIENT [facility] 60 MINUTES Maria Del Carmen Borges, LONNY.PROTEIN SCIENTIST [id number] [place] [address] Referral ID Status Reason Start Date Expiration Date V isits Requested Visits Authorized [id number] Closed PCP Requested Referral 09/04/2023 09/03/2024 1 1 Reason Onset Date Comments Refill Request 10/18/2023 Reason Comments Insurance Authorization Botox Reason Comments Botox Injection Specialty Diagnoses / Procedures Referred By Contac t Referred To Contact ADULT NEUROLOGY Diagnoses Chronic migraine without aura, intractable, with status migrainosus Procedures BOTULINUM TOXIN A PER 1 UNIT CHEMODERVATE FACIAL/TRIGEM/CERV MUSC MIGRAINE Harman Sullivan MD [address] [facility] [place] [address] Neur Chris [address] [facility] [place] [address] Referral ID Status Reason Start Date Expiration Date V isits Requested Visits Authorized [id number] Authorized 10/11/2023 10/14/2024 99 99 Reason Comments Appointment Reason Comments 1st po Exc. bilateral breast masses Specialty Diagnoses / Procedures Referred By Contac t Referred To Contact General Surgery Diagnoses Hospital followup status post surgery Procedures [place] UNLISTED [facility] MANAGEMENT SERVICE [facility] [address] [place] [address] Dano Pyle DO [address] [place] [address] Phone: tel: fax: Referral ID Status Reason Start Date Expiration Date Visits Re quested Visits Authorized [id number] Closed 06/17/2024 12/14/2024 1 1 Specialty Diagnoses / Procedures Referred By Contac t Referred To Contact ADULT NEUROLOGY Diagnoses Chronic migraine without aura, intractable, with status migrainosus Procedures BOTULINUM TOXIN A PER 1 UNIT CHEMODERVATE FACIAL/TRIGEM/CERV MUSC MIGRAINE Harman Sullivan MD [address] [facility] [place] [address] Phone: tel: fax: Neurology [address] [facility] [place] [address] Phone: tel: fax: Referral ID Status Reason Start Date Expiration Date Visits Requested Visits Authorized [id number] Authorized Financial Clearance Required - [employer] 10/11/2023 10/14/2024 99 99 INFORMATION SOURCE (unrecogn ized section and content) DATE CREATED AUTHOR 09/07/2022 [facility] DATE CREATED AUTHOR AUTHOR'S ORGANIZ ATION 11/15/2022 [employer] DATE CREATED AUTHOR AUTHOR'S ORGANIZ ATION 01/01/2023 [facility] DATE CREATED AUTHOR AUTHOR'S ORGANIZ ATION 02/04/2023 [facility] DATE CREATED AUTHOR AUTHOR'S ORGANIZ ATION 02/22/2024 [facility] DATE CREATED AUTHOR AUTHOR'S ORGANIZ ATION 06/24/2024 [facility] DATE CREATED AUTHOR AUTHOR'S ORGANIZ ATION 08/02/2024 [facility] DATE CREATED AUTHOR AUTHOR'S ORGANIZ ATION 09/18/2024 [facility] FOR RECORDS PERTAINING TO PATIENTS [...] BE BASED ON THE PRIMARY CLINICAL RECORDS. [facility] [employer] [facility]. provides no warranty or guarantee of the accuracy or completeness of information in this document.
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
[2024-10-08] MEDS: KETOROLAC TROMETHAMINE 30 MG/ML VIAL IVP (04:11)
[2024-10-08] MEDS: ONDANSETRON PF 4 MG/2 ML VIAL IV (04:11)
[2024-10-08] MEDS: 0.9 % SODIUM CHLORIDE 1,000 ML 1000 ML IV (04:11)
[2024-10-08] MEDS: DIAZEPAM 10 MG/2 ML SYRINGE 5 MG IM (04:11)
[2024-10-08] MEDS: HYDROMORPHONE HCL 1 MG/ML CARTRIDGE IV (04:12)
[2024-10-08 04:18] VITALS: BP 132/87
[2024-10-08 04:30] VITALS: BP 120/80
[2024-10-08] MEDS: OXYCODONE HCL/ACETAMINOPHEN 5MG/325MG 1 TAB PO (05:33)
[2024-10-08] MEDS: OXYCODONE HCL/ACETAMINOPHEN 5MG/325MG 2 TAB PO (05:33)
== END 2024-10-08 05:44 | disposition home or self-care (01) ==
PROVIDERS: Emergency Provider Emergency Medicine; PCP Family Medicine
DX: M54.2 Cervicalgia (principal); G89.29 Other chronic pain
CPT/HCPCS: 96361; 96372; 96374; 96375; 99284; J1171; J1885; J2405; J3360

== ENCOUNTER 2024-12-09 00:21 | Emergency (ER) | payer OTHER, SELFPAY ==
[2024-12-09 00:25] VITALS: BP 141/94; PULSE 85; TEMP 37.1; O2SAT 99; BMI 22.3
--- OUTSIDE RECORDS SUMMARY | 2024-12-09 00:28 | XMS_ITS | CCD ---
Author Organization [facility] Care Team Providers Care Rink Rat Name Role Phone MD Filiberto Ying Primary Care Provider [phone] PURVI Sheehan Attending Provider [phone]EP[address] ., DR DE LOS SANTOS Primary Care Unavailable LAKSHMIPATHY ., NARENDRANCLARIBEL Admitting Glo vailable LAKSHMIPATHY ., KATHLEEN Attending [...] Filiberto Ying Primary Care Provider DO Dano Pyle Attending Provider DO Roseanne Castellanos Attending Provider MD Romero Jones Referring Provider Isrrael, Dr. Soraya Mojica Attending Unavailab le Isrrael, Dr. Soraya Mojica Referring Unavailab le Stepan, Dr. Filiberto Fuller Primary Care Unavail able Unavailable Unavailable Filiberto Ying MD Primary Care Provider Aguila LOJA, Kenna Unavailable Tal DIALLO, Dr. Saeed Jean-Baptiste Attending [...] Unava ilable Soraya Cage Attending Unavailable Soraya Caeg Referring Unavailable Stepan, Dr. Filiberto Fuller Primary [...] MD Filiberto Biggs Primary Care Provider LONNY Menchaca Attending Provider MD Filiberto Ying Primary Care Provider LONNY Menchaca Attending Provider DO Dano Pyle Attending Provider MD Filiberto Ying Primary Care Provider [phone] Filiberto Ying MD Primary Care Provider [phone] MD Filiberto Ying Primary Care Provider [phone] DO Dano Pyle Attending Provider Merna MCMILLAN, Reuben Pope Attending Unavailable Filiberto Ying MD Primary Care Provider [phone] Dano Pyle DO Attending Provider Babar Singh PA-C Emergency Provider Filiberto Ying MD Primary Care Provider [phone] Filiberto Ying MD Primary Care Provider [phone] Dano Pyle DO Attending Provider Babar Singh PA-C Emergency Provider Luis Goins DO Emergency Provider Filiberto Ying MD Primary Care Provider [phone] Peg Ruiz DO Emergency Provider [phone] Filiberto Ying Primary Care Unavailable Peg Ruiz Admitting Unavailable Peg Ruiz Attending Unavailable Franty, Filiberto M Primary Care Unavailable Babar Singh Admitting Unavailable Babar Singh Attending Unavailable Stepan, Filiberto M Primary Care Unavailable Luis Goins Admitting Unavailable Luis Goins Attending Unavailable Jonas, Dano Attending Unavailable Frany, Filiberto M Primary Care Unavailable Itzkojonel, Dano Admitting Unavailable Frany, Filiberto M Primary Care Unavailable Itzlottie, Dano Admitting Unavailable Itfloresita, Dano Attending Unavailable Stepan, Filiberto M Primary Care Unavailable Itzkowandatz, Dano Admitting Unavailable Itfloresita, Dano Attending Unavailable Filiberto Ying MD Primary Care Provider [phone] HARMAN SULLIVAN Referring Unavailable HOY, FILIBERTO M Primary Care Unavailable HARMAN SULLIVAN Attending Unavailable HARMAN SULLIVAN Attending Unavailable HARMAN SULLIVAN Referring Unavailable HOY, FILIBERTO M Primary Care Unavailable HARMAN SULLIVAN Attending Unavailable HARMAN SULLIVAN Referring Unavailable FILIBERTO YING Primary Care Unavailable Filiberto Ying MD Primary Care Provider [phone] Filiberto Ying MD Primary Care Provider [phone] DANO PYLE Attending Unavailable BAN BEDOLLA Attending Unavailable SIS IRBY Attending Unavailable BAN BEDOLLA Attending Unavailable SIS IRBY Referring Unavailable Allergies Allergy Classification Reported Allergen(s) Allergy Type Date of Onset Reaction(s) Facility (20 sources) Caffeine; Translations: [Caffeine] Drug Allergy 06-13-19 13 Vomiting, GI intolerance, Unknown [facility] (20 sources) DHE; Translations: [Dhe] Allergy to substance 06-13-19 13 Shortness of Breath [facility] (20 sources) Adhesive agent; Translations: [ADHESIVE] Propensity to adverse reactions to drug 07-29-19 Other: See Asa, Yamilet [facility] (20 sources) Adhesive Tape Allergy to substance (finding) 10-24-19 [facility] (9 sources) prasterone; Translations: [DHEA CAPS] Drug Allergy [facility] [facility] DO Work Phone: (20 sources) Metoprolol; Translations: [METOPROLOL] Drug Allergy 05-01-20 23 [facility] (13 sources) Metoclopramide Drug Allergy 05-15-20 23 Other [facility] (12 sources) Dihydroergotamine Drug Allergy 01-16-20 23 Unknown [facility] (11 sources) Wound Dressing Adhesive Drug Intolerance 07-29-19 23 Unknown, [facility] (6 sources) Droperidol; Translations: [DROPERIDOL] Drug Allergy 07-31-19 Other: See Comments [facility] (6 sources) Promethazine Drug Allergy 10-23-19 [facility] (5 sources) Droperidol Propensity to adverse reactions 07-31-19 Other [facility] Healthcare Medications Current Medications Medication Drug Class(es) Dates [...] sources) Histamine-1 Receptor Antagonist Start: 10-14-19 End: 10-23-19 take 1 tablet by mouth in the morning cetirizine (ZyrTEC) 10 MG tablet Take 10 mg by mouth in the morning. 07/27/2022 Active Comment on above: 10 mg once daily. cyclobenzaprine hydrochloride 5 mg oral tablet (20 sources) Muscle Relaxant Start: 01-20-20 End: 06-10-19 take 1 tablet by mouth every twenty-four [...] by klever th at bedtime as needed. diclofenac sodium 75 mg delayed release oral tablet (20 sources) Nonsteroidal Anti-inflammatory Drug Start: 5 take 1 tablet by mouth twice daily Diclofenac Sodium 75 mg tablet,delayed release (DR/EC) Active 75 MG PO Twice daily October 22, 2024 12:00am Start: 01-22-2024 take 1 tablet by klever th twice daily as needed diclofenac (Voltaren) 50 MG EC tablet Indications: Neck pain TAKE 1 TABLET BY MOUTH TWICE A DAY NEEDED FOR 10 DAYS 20 tablet 01/22/2024 Active Start: 06-29-2022 End: 09-21-2023 diclofenac (VOLTAREN) 1 % to pical gel as needed. 0 06/29/2022 09/21/2023 Discontinued Comment on above: as needed. gabapentin 600 mg oral tablet (13 sources) Anti-epileptic Agent Start: End: 4 take 1 tablet by mouth once daily at bedtime gabapentin (NEURONTIN) 600 mg tablet Indications: RLS (restless legs syndrome) Take 1 tablet by mouth daily at bedtime for 180 days. 30 tablet 5 09/21/2023 Active ivermectin 10 mg/ml topical cream (8 sources) Antiparasitic, Pediculicide Start: Ivermectin (Soolantra) 1 % cream Indications: Other rosacea Apply thin layer to face, once daily at bedtime, 30 day supply 45 g 11/11/2024 Active minocycline 100 mg oral capsule (20 sources) Tetracycline-class Drug Start: take 1 capsule by mouth once daily minocycline 100 MG capsule Indications: Other rosacea Take 1 capsule, by mouth, once daily, 30 days 30 capsule 11/11/2024 Active Start: 07-30-2023 End: 11-11-2024 take 1 capsule by mouth once daily minocycline 50 MG capsule Indications: Other rosacea Take 1 capsule, by mouth, every day, 30 days 30 capsule 07/30/2023 11/11/2024 Discontinued (Ineffective) Start: 10-14-2019 End: 05-01-2023 take 1 capsule by mouth once daily Minocycline 50 mg capsule Discontinued 50 MG PO Daily October 14, 2019 12:00am May 01, 2023 12:55pm take 1 tablet by klever th once daily Minocycline HCl 100 mg tablet Take 100 mg by mouth once daily. Active Comment on above: Take 100 mg by mouth once daily. ondansetron 4 mg oral tablet (20 sources) Serotonin-3 Receptor Antagonist Start: take 1 tablet by mouth every six hours Ondansetron Hcl 4 mg tablet Active 4 MG PO Every 6 hours October 22, 2024 12:00am Start: 10-31-2022 End: 06-10-2024 ondansetron ODT (Zofran-ODT) 4 MG disintegrating tablet 10/31/2022 Active Start: 10-31-2022 take 1 tablet by klever [...] as needed for nausea and vomiting 7 October 14, 2019 12:00am May 01, 2023 [...] Nonergot Dopamine Agonist Start: 06-28-19 take 1 tablet by mouth in the morning pramipexole (Mirapex) 1 MG tablet Take 1 mg by mouth in the morning. 06/28/2022 Active Start: 06-28-2022 take 2 tablets by mo ut once daily at bedtime pramipexole (MIRAPEX) 1 mg tablet Take 2 mg by mouth daily at bedtime. 06/28/2022 Active Start: 10-14-2019 End: 05-01-2023 take 1 tablet by mouth once daily at bedtime Pramipexole (Mirapex) 0.5 mg tablet Discontinued 0.5 MG PO Daily at bedtime October 14, 2019 12:00am May 01, 2023 12:53pm Comment on above: Take 1 mg by mouth o nce daily. rimegepant 75 mg disintegrating oral tablet (11 sources) Rimegepant Sulfa te (Nurtec) 75 MG tablet dispersible DISSOLVE ONE TABLET BY MOUTH AT ONSET OF MIGRAINE Oral for 30 Active sulfamethoxazole 800 mg / trimethoprim 160 mg oral tablet (11 sources) Dihydrofolate Reductase Inhibitor Antibacterial, Sulfonamide Antimicrobial Start: 023 take 1 tablet by mouth once in the morning, then take 1 tablet by mouth once at bedtime sulfamethoxazole-trim ethoprim (Bactrim DS) 800-160 MG per tablet Take 1 tablet by mouth in the morning and 1 tablet before bedtime. 12/15/2022 Active SZSTANDARD1 cream (1 source) Start: SZSTANDARD1 cream Active 1 - 2 GM TOPICAL every 6 to 8 hours as needed for Pain 120 October 22, 2024 12:00am Surinder Compounded Item: Baclofen 2%, Cyclobenzaprine HCl 2%, Diclofenac Na 3%, Gabapentin 6%, Lidocaine HCl 2% Cream Sig: as directed rub 1 to 2 grams for 2 to 3 minutes every 6 to 8 hours as needed Topical tiZANidine 4 mg oral tablet (19 sources) Central alpha-2 Adrenergic Agonist Start: 025 take 1 tablet by mouth once daily at bedtime Tizanidine 4 mg tablet Active 4 MG PO Daily at bedtime June 10, 2024 1:00am Start: 06-08-2024 tiZANidine (ZA NAFLEX) 4 mg tablet Take 8 mg by mouth daily at bedtime. 06/08/2024 Active traMADol hydrochloride 50 mg oral tablet (7 sources) Opioid Agonist Start: 06-17-2024 traMADol (ULTR AM) 50 mg tablet Take 50 mg by mouth. 06/17/2024 Active Start: 06-17-2024 End: 08-01-2024 take 1 tablet by mouth every four to six hours as needed for pain Tramadol 50 mg tablet Discontinued 50 MG PO EVERY 4-6 HOURS as needed for pain 20 June 17, 2024 1:00am August 01, 2024 8:23am vitamin b6 100 mg oral tablet (11 sources) take 1 tablet by klever th in the morning pyridoxine (B-6) 100 MG tablet Take 100 mg by mouth in the morning. Active Completed/Discontinued Medications Medication Drug Class(es) Dates Sig (Normalized) Sig (Original) acetaminophen 300 mg / codeine phosphate 30 mg oral tablet (8 sources) Opioid Agonist Start: 05-15-2023 End: 06-10-2024 [...] PO Q6H as needed for pain 12 3 June 19, 2024 August 01, 2024 8:23am Start: 03-21-2023 End: 06-10-2024 take 0.5 tablet by mouth every twenty-four hours as needed HYDROcodone-acetaminophen ([place]) 5-325 MG tablet Take 0.5 tablets by mouth Daily as needed 03/21/2023 Active Start: 06-29-2022 HYDROcodone-ac etaminophen (NORCO) 5-325 mg per tablet as needed. 06/29/2022 Active Start: 10-22-2019 End: 12-24-2020 take 1 tablet by mouth every six hours as needed for pain Hydrocodone-Acetaminophen 5-325 mg tablet Discontinued 1 TAB PO Q6H as needed for pain 10 2 August 16, 2020 December 24, 2020 12:15pm Start: 10-14-2019 End: 12-24-2020 take 1 tablet by mouth every eight hours as needed for pain Hydrocodone-Acetaminophen ([place]) 5-325 mg tablet Discontinued 1 TAB PO Q8H as needed for pain 10 October 14, 2019 December 24, 2020 12:15pm Comment on above: as needed. benzoyl peroxide 50 mg/ml topical solution (5 sources) Start : 07-29 End: 11-11 benzoyl peroxide 5 % external wash Indications: Other rosacea Apply to affected areas, then rinse daily, 30 day supply 227 g 11 07/30/2023 11/11/2024 Discontinued biotin 5 mg oral capsule (8 sources) End: 11-20 biotin 5 MG capsule Take by mouth. 11/20/2024 Discontinued onabotulinumtoxina 100 unt injection (19 sources) Acetylcholine Release Inhibitor Start : 10-29 End: 10-29 inject 1 dose by intramuscular injection every 30 days 200 Units, INTRAMUSCULAR, ONCE (UP TO 30 DAYS AMB), 1 dose, On Sun10/29/24 at 1730, This record documents the total dose provided to patient. See progress note for specific locations and amounts administered. REFRIGERATE - Pharmaceutical Waste: Lab Pack - Start: 10-29-2024 End: 10-29-2024 onabotulinum toxin type A 20 0 Units injection (BOTOX) Start: 07-30-2024 End: 07-30-2024 inject 1 dose by intramuscular injection every [...] Units injection (BOTOX) Onabotulinumtoxi nA (BOTOX IJ) Active Onabotulinumtoxi nA (BOTOX IJ) Botox Active cefdinir 300 mg oral capsule (3 sources) Cephalosporin Antibacterial Start: 08-01-2024 End: 10-22-2024 take 1 capsule by mouth twice daily Cefdinir 300 mg capsule Discontinued 300 MG PO Twice daily August 01, 2024 12:00am October 22, 2024 3:52pm cephalexin 500 mg oral capsule (2 sources) Cephalosporin Antibacterial Start: 09-17-2024 End: 10-22-2024 take 1 capsule by mouth twice daily Cephalexin 500 mg capsule Discontinued 500 MG PO Twice daily 01 12September 17, 2024 12:00am October 22, 2024 3:52pm sugar-free cholestyramine resin 4000 mg powder for oral suspension (13 sources) Bile Acid Sequestrant Start: 12-24-2020 End: [...] oral tablet (20 sources) Benzodiazepine Start: 06-19-2024 End: 08-01-2024 take 1 tablet by mouth twice daily as needed for muscle spasms Diazepam (Valium) 5 mg tablet Discontinued 5 MG PO Twice daily as needed for muscle spasm 10 June 195 1:00am August 01, 2024 8:23am Start: 06-13-2022 take 1 tablet by klever th every twelve hours as needed diazePAM (VALIUM) 10 mg tablet Take 10 mg by mouth twice daily as needed. 06/13/2022 Active Comment on above: Take 10 mg by mouth twice daily as needed. doxepin hydrochloride 10 mg oral capsule (13 sources) Tricyclic Antidepressant Start: 10-14-19 End: 12-25-19 [...] 12:00am December 24, 2020 12:23pm L Norgest/E.Estradiol-E.Estrad (20 sources) Progestin, Estrogen, Progestin-containing Intrauterine Device Start: [...] TAB PO Daily October 14, 2019 12:00am End: 11-20-2024 take 1 tablet by mouth once daily L norgest/e.estradiol-e.estrad (Seasoniq ue) 0.15-0.03 &0.01 MG tablet tablet TAKE 1 TABLET BY MOUTH EVERY DAY Oral for 91 11/20/2024 Discontinued take 1 tablet by klever th once daily L norgest/e.estradiol-e.estrad (Seasoniq ue) 0.15-0.03 &0.01 MG tablet tablet TAKE 1 TABLET BY MOUTH EVERY DAY Oral for Active ezetimibe 10 mg oral tablet (20 sources) Dietary Cholesterol Absorption Inhibitor Start: 07-27-2022 End: 11-20-2024 ezetimibe (Zetia) 10 MG tablet 05/08/2023 11/20/2024 Discontinued Comment on above: 10 mg once daily. ferrous sulfate 325 mg oral tablet (20 sources) Start: 07-13-2022 End: 11-20-2024 ferrous sulfate 325 (65 Fe) MG tablet Daily. 07/13/2022 11/20/2024 Discontinued End: 11-20-2024 take 1 tablet by mouth in the morning Ferrous Sulfate (IRON PO) Take 1 tablet by mouth in the morning. 11/20/2024 Discontinued take 1 tablet by klever th in the morning Ferrous Sulfate (IRON PO) Take 1 tablet by mouth in the morning. Active Comment on above: once daily. fludrocortisone acetate 0.1 mg oral tablet (9 sources) Start: 01-13-2023 End: 11-20-2024 fludrocortisone (Florinef) 0.1 MG tablet 01/13/2023 11/20/2024 Discontinued Start: 11-14-2022 take 1 tablet by klever th once daily Fludrocortisone Acetate 0.1 MG Oral Tablet Take 1 tablet daily Quantity: 90 Refills: 3 Ordered: 14-Nov-2022 Soraya Cage MD Start : 14-Nov-2022 Active 1.5 ml fremanezumab-vfrm 150 mg/ml prefilled syringe (13 sources) Start: 10-14-2019 End: 05-01-2023 Fremanezumab-Vfrm 225 mg/1.5 mL syringe Discontinued 1.5 ML SUBCUT every month October 14, 2019 12:00am May 01, 2023 12:54pm hydrocortisone 0.025 mg/mg topical ointment (8 sources) Corticosteroid Start: 02-06-2023 End: 11-20-2024 hydrocortisone 2.5 % ointment Indications: Allergic contact dermatitis, unspecified trigger Apply thin layer to affected areas twice a day as needed for flares 20 g 1 02/06/2023 11/20/2024 Discontinued hyoscyamine sulfate 0.125 mg sublingual tablet (13 sources) Start: 10-14-2019 End: 12-24-2020 take 1 tablet by mouth four times daily as needed for pain Hyoscyamine Sulfate 0.125 mg tablet, sublingual Discontinued 1 - 2 TAB PO Four times daily as needed for Abdominal Pain October 14, 2019 12:00am December 24, 2020 12:24pm lidocaine 0.05 mg/mg medicated patch (4 sources) Antiarrhythmic, Amide Local Anesthetic Start: 06-19-2024 End: 10-22-2024 apply 1 dose topically every twenty-four hours Lidocaine 5 % adhesive patch,medicated Discontinued 1 PATCH TOPICAL Q24H June 19, 2024 1:00am October 22, 2024 3:51pm leave on most painful area for up to 12 hrs loratadine 10 mg disintegrating oral tablet (8 sources) Start: 01-13-2023 End: 11-20-2024 [facility] All[facility] Relief 10 MG disintegrating tablet 01/13/2023 11/20/2024 Discontinued Magnesium (4 sources) End: 01-12-2023 Magnesium 250 mg tab 250 mg once daily. 0 01/12/2023 Discontinued Magnesium 250 mg tab 250 mg once daily. 0 Active Comment on above: 250 mg once daily. magnesium oxide 400 mg oral tablet (9 sources) End: 025 magnesium oxide (Mag-Ox) 400 MG tablet Take by mouth Daily. 11/20/2024 Discontinued Comment on above: Take 400 mg by mouth once daily. Magnesium Sulfate (1 source) Start: End: inject 2 g intravenously every hour [...] NS 250 ML IV OVER 1 HOUR meclofenamate 100 mg oral capsule (8 sources) Start: End: take 1 capsule by mouth once daily as needed meclofenamate (Meclomen) 100 MG capsule TAKE 1 CAPSULE BY MOUTH ONCE DAILY. MAY REPEAT in 4 TO 6 hours NEEDED. 04/11/2022 11/20/2024 Discontinued 24 hr metFORMIN hydrochloride 500 mg extended release oral tablet (12 sources) Biguanide Start: End: take 1 tablet by mouth every twenty-four hours in the morning metFORMIN XR (Glucophage-XR) 500 MG 24 hr tablet Take 500 mg by mouth in the morning. 07/27/2022 11/20/2024 Discontinued End: 01-12-2023 metFORMIN (GLUCOPHAGE) 500 m g tablet 500 mg once daily. 0 01/12/2023 Discontinued Comment on above: 500 mg once daily. 24 hr metoprolol succinate 25 mg extended release oral tablet (18 sources) beta-Adrenergic Jessie Start: 12-03-2022 End: 11-20-2024 take 1 tablet by mouth every twenty-four hours in the morning metoprolol succinate XL (Toprol-XL) 25 MG 24 hr tablet Take 1 tablet by mouth in the morning. 12/03/2022 11/20/2024 Discontinued Start: 12-03-2022 End: 09-21-2023 take 1 tablet [...] 1 tablet by klever th every afternoon. pantoprazole 40 mg delayed release oral tablet (20 sources) Proton Pump Inhibitor Start: 2019 End: 2024 take 1 tablet by mouth once daily Pantoprazole 40 mg tablet,delayed release (DR/EC) Discontinued 40 MG PO Daily October 14, 2019 12:00am May 01, 2023 12:55pm phenazopyridine hydrochloride 200 mg delayed release oral tablet (8 sources) Start: 2022 End: 2024 take 1 tablet by mouth three times daily after mealtime phenazopyridine (Pyridium) 200 MG tablet TAKE 1 TABLET BY MOUTH THREE TIMES A DAY AFTER MEALS FOR 3 DAYS 12/15/2022 11/20/2024 Discontinued phentermine hydrochloride 37.5 mg oral tablet (17 sources) Sympathomimetic Amine Anorectic Start: 2022 End: 2024 take 1 tablet by mouth in the morning phentermine (Adipex-P) 37.5 MG tablet Take 37.5 mg by mouth in the morning. 01/05/2023 11/20/2024 Discontinued Comment on above: Take 37.5 mg by mout h once daily. predniSONE 10 mg oral tablet (8 sources) Start: 2024 End: 2024 predniSONE (Deltasone) 10 MG tablet Indications: Other rosacea Take 4 tabs daily x 3 days, take 2 tabs daily x 3 days, take 1 tab daily x 3 days. Total days: 21 tablet 11/11/2024 11/25/2024 Discontinued (Therapy completed) pregabalin 25 mg oral capsule (8 sources) Start: 2021 End: 2024 take 1 capsule by mouth once daily at bedtime pregabalin (Lyrica) 25 MG capsule TAKE 1 CAPSULE BY MOUTH EVERY DAY AT BEDTIME 03/06/2022 11/20/2024 Discontinued [place]-Wm-Aji-Fe-FA (P-D CARTER PLUS) Tab (2 sources) End: 2022 take 1 tablet by mouth once daily Xrozbtgg-Je-Zrm-Fe-FA (P-D CARTER PLUS) Tab Take 1 tablet by mouth once daily. 0 08/01/2022 Discontinued (Course of therapy completed) take 1 tablet by mouth once ute y Gnawvrmp-Ue-Noo-Fe-FA (P-D CARTER PLUS) Tab Take 1 tablet [...] 12:15pm propranolol hydrochloride 10 mg oral tablet (20 sources) beta-Adrenergic Jessie Start: 10-14-2019 End: 05-01-2023 take 2 tablets by mouth twice daily Propranolol 10 mg tablet Discontinued 20 MG PO Twice daily October 14, 2019 12:00am May 01, 2023 12:55pm Start: 10-14-2019 End: 05-01-2023 take 20 mg by mouth twice daily Propranolol Discontinu ed 20 MG PO Twice daily October 14, 2019 12:00am May 01, 2023 12:55pm Start: 06-25-2012 End: 11-20-2024 take 1 tablet by mouth three times daily propranolol 10 mg tablet Take 1 tablet by mouth three times daily. 90 tablet 11 06/25/2012 07/28/2022 Discontinued (Course of therapy completed) End: 11-20-2024 propranolol (Inderal) 40 MG tablet 1 (one) time each day at the same time. 11/20/2024 Discontinued Comment on above: Take 1 tablet by klever th three times daily. simvastatin 40 mg oral tablet (20 sources) HMG-CoA Reductase Inhibitor End: 11-21-19 take 1 tablet by mouth at bedtime simvastatin (Zocor) 40 MG tablet Take 40 mg by mouth at bedtime. 11/20/2024 Discontinued Comment on above: 40 mg once [...] IV NS IV OVER 30 MIN topiramate (20 sources) Start: 10-14-19 End: 05-01-20 take 1 [...] 14, 2019 12:00am May 01, 2023 12:56pm End: 11-20-2024 Topiramate ER (Trokendi XR) 200 MG capsule sustained-release 24 hr 1 capsule. 11/20/2024 Discontinued trihexyphenidyl hydrochloride 2 mg oral tablet (8 sources) Start: 09-04-2022 End: 11-20-2024 take 1 tablet by mouth in the morning trihexyphenidyl (Artane) 2 MG tablet Take 2 mg by mouth in the morning and 2 mg before bedtime. 09/04/2022 11/20/2024 Discontinued 24 hr venlafaxine 37.5 mg extended release oral capsule (8 sources) Serotonin and Norepinephrine Reuptake Inhibitor Start: 05-01-2022 End: 11-20-2024 take 1 capsule by mouth once daily at mealtime venlafaxine XR (Effexor XR) 37.5 MG 24 hr capsule TAKE 1 CAPSULE BY MOUTH EVERY DAY WITH FOOD FOR 30 DAYS 05/01/2022 11/20/2024 Discontinued zolpidem tartrate 10 mg oral tablet (8 sources) gamma-Aminobutyric Acid-ergic Agonist End: 11-20-2024 Ambien 10 MG tablet 1 (one) time each day at the same time. 11/20/2024 Discontinued Problems Active Problems Problem Classification Problem Date Documented Da te Episodic/Chronic Abdominal pain (20 sources) Abdominal pain; Translations: [Unspecified abdominal pain] Onset: 11-20-2024 09-27-2020 Episodic Administrative/social admission (4 sources) Patient encounter status; Translations: [Other reasons for seeking consultation] Episodic Biliary tract disease (18 sources) Biliary calculus; Translations: [Calculus of gallbladder without cholecystitis without obstruction] Onset: 11-20-2024 10-14-2019 Episodic Cardiac dysrhythmias (2 sources) Tachycardia, unspecified; Translations: [Sinus tachycardia] Onset: 12-28-2022 Episodic Disorders of lipid metabolism (14 sources) Hyperlipidemia; Translations: [Other and unspecified hyperlipidemia] Onset: 01-05-2023 11-20-2024 Chronic Headache; including migraine (20 sources) Migraine, unspecified, not intractable, without status migrainosus; Translations: [Refractory migraine without aura] Onset: 04-10-2022 09-21-2023 Chronic Headache; including migraine (1 source) Headache; including migraine; Translations: [HEADACHE UNSPECIFIED] Onset: 07-10-2022 Influenza (3 sources) Influenza due to Influenza A virus; Translations: [Influenza due to other identified influenza virus with other respiratory manifestations] 08-01-2024 Episodic Nonspecific chest pain (2 sources) Atypical chest pain; Translations: [Other chest pain] 09-17-2024 Episodic Osteoarthritis (5 sources) Arthritis; Translations: [Unspecified osteoarthritis, unspecified site] Onset: 11-20-2024 11-20-2024 Chronic Other and unspecified benign neoplasm (4 sources) Fibroadenoma of right breast; Translations: [Benign neoplasm of right breast] Onset: 06-23-2024 06-23-2024 Episodic Other circulatory disease (18 sources) Elevated blood-pressure reading without diagnosis of hypertension; Translations: [Elevated blood-pressure reading, without diagnosis of hypertension] Onset: 11-20-2024 09-27-2020 Episodic Other connective tissue disease (13 sources) Spasm of cervical paraspinous muscle; Translations: [Other muscle spasm] 08-16-2020 Episodic Other connective tissue disease (1 source) Fibromyalgia; Translations: [Fibromyalgia] Episodic Other connective tissue disease (1 source) Problem of neck; Translations: [Other symptoms and signs involving the musculoskeletal system] 01-12-2023 Episodic Other female genital disorders (5 sources) Pain in female genitalia on intercourse; Translations: [Unspecified dyspareunia] Onset: 11-20-2024 11-20-2024 Chronic Other female genital disorders (5 sources) Pelvic congestion syndrome; Translations: [Other specified conditions associated with female genital organs and menstrual cycle] Onset: 11-20-2024 11-20-2024 Episodic Other female genital disorders (5 sources) Vaginal dryness; Translations: [Other specified noninflammatory disorders of vagina] Onset: 11-20-2024 11-20-2024 Episodic Other gastrointestinal disorders (5 sources) Altered bowel function; Translations: [Change in bowel habit] Onset: 11-20-2024 11-20-2024 Episodic Other hereditary and degenerative nervous system conditions (1 source) Spasmodic torticollis; 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 TORTICOLLIS] Onset: 04-10-2022 Chronic Other hereditary and degenerative nervous system conditions (18 sources) Isolated cervical dystonia; Translations: [Spasmodic torticollis] Onset: 08-23-2023 01-12-2023 Chronic Other hereditary and degenerative nervous system conditions (17 sources) Restless legs; Translations: [Restless legs syndrome] Onset: 08-23-2023 01-12-2023 Chronic Other inflammatory condition of skin (9 sources) Rosacea; Translations: [Other rosacea] Onset: 11-20-2024 11-11-2024 Chronic Other nervous system disorders (5 sources) Other specified mononeuropathies; Translations: [OTHER SPECIFIED MONONEUROPATHIES] Onset: 02-16-2022 Chronic Other nervous system disorders (11 sources) Disorder of brain; Translations: [Disorder of brain, unspecified] Onset: 08-23-2023 08-23-2023 Chronic Other nervous system disorders (1 source) Chronic pain; Translations: [Other chronic pain] 10-22-2024 Chronic Other nervous system disorders (1 source) Other chronic pain; Translations: [Other chronic pain] 10-22-2024 Chronic Other nutritional; endocrine; and metabolic disorders (19 sources) Obesity; Translations: [Obesity, unspecified] Onset: 08-23-2023 08-23-2023 Chronic Other nutritional; endocrine; and metabolic disorders (1 source) Overweight in adulthood with body mass index of 25 or more but less than 30; Translations: [Overweight] Episodic Other nutritional; endocrine; and metabolic disorders (5 sources) Abnormal weight gain; Translations: [Abnormal weight gain] Onset: 11-20-2024 11-20-2024 Episodic Other screening for suspected conditions (not mental disorders or infectious disease) (9 sources) Encounter for screening for malignant neoplasm of cervix; Translations: [Ultrasonography of breast abnormal] Onset: 01-09-2022 Episodic Other skin disorders (2 sources) Skin tag; Translations: [Other hypertrophic disorders of the skin] 11-25-2024 Episodic Residual codes; unclassified (11 sources) Obstructive sleep apnea syndrome; Translations: [Obstructive sleep apnea (adult) (pediatric)] Onset: 08-23-2023 08-23-2023 Chronic Spondylosis; intervertebral disc disorders; other back problems (2 sources) Cervical spondylosis; Translations: [Spondylosis without myelopathy or radiculopathy, cervical region] 10-22-2024 Chronic Syncope (19 sources) Syncope; Translations: [Syncope and collapse] Onset: 12-28-2022 Episodic Urinary tract infections (2 sources) Urinary tract infectious disease; Translations: [Urinary tract infection, site not specified] 09-17-2024 Episodic Past or Other Problems Problem Classification Problem Date Documented Date Episodic/Chronic Coma; stupor; and brain damage (11 sources) Daytime somnolence; Translations: [Somnolence] Onset: 08-23-2023 08-23-2023 Episodic Deficiency and other anemia (11 sources) Iron deficiency anemia; Translations: [Iron deficiency anemia, unspecified] Onset: 08-23-2023 08-23-2023 Episodic Early or threatened labor (5 sources) Premature labor; Translations: [ labor without delivery, unspecified trimester] Onset: 07-19-2016 11-20-2024 Episodic Headache; including migraine (20 sources) Headache; Translations: [Headache] Onset: 04-06-2022 09-27-2020 Episodic Immunizations and screening for infectious disease (1 source) Encounter for screening for human papillomavirus (HPV); Translations: [ENC SCREENING HUMAN PAPILLOMAVIRUS] Onset: 01-10-2022 Episodic Nonmalignant breast conditions (20 sources) Breast lump; Translations: [Unspecified lump in the left breast, unspecified quadrant] Onset: 04-18-2023 04-05-2023 Episodic Other and unspecified benign neoplasm (9 sources) Benign neoplasm of right breast; Translations: [Benign neoplasm of breast] Onset: 06-23-2024 06-23-2024 Episodic Other connective tissue disease (1 source) Other muscle spasm; Translations: [OTHER MUSCLE SPASM] Onset: 04-10-2022 Episodic Other connective tissue disease (11 sources) Muscle pain; Translations: [Myalgia, unspecified site] Onset: 08-23-2023 08-23-2023 Episodic Other lower respiratory disease (14 sources) Difficulty breathing; Translations: [Other respiratory abnormalities] Onset: 01-05-2023 11-20-2024 Episodic Other nervous system disorders (11 sources) Spasmodic movement; Translations: [Fasciculation] Onset: 08-23-2023 08-23-2023 Episodic Other and delivery including normal (5 sources) Intrauterine ; Translations: [Encounter for supervision of normal , unspecified, unspecified trimester] Onset: 07-25-2016 11-20-2024 Episodic Residual codes; unclassified (11 sources) Insomnia; Translations: [Insomnia, unspecified] Onset: 08-23-2023 08-23-2023 Episodic Residual codes; unclassified (11 sources) Diffuse pain; Translations: [Pain, unspecified] Onset: 08-23-2023 08-23-2023 Episodic Spondylosis; intervertebral disc disorders; other back problems (20 sources) Chronic neck pain; Translations: [Cervicalgia] Onset: 02-20-2022 Episodic Unclassified (9 sources) Never smoked tobacco; Translations: [Never a smoker] Results Test Name Value Interpretation Reference Range Facility MR CERVICAL SPINE WO CONTRAS Ton 11-27-2024 MR CERVICAL SPINE WO CONTRAST EXAMINATION/TECHNIQUE: MR CERVICAL SPINE WO CONTRAST HISTORY: Chronic neck pain. COMPARISON: None. RESULT: CERVICAL: Counting reference: Craniocervical junction. Alignment: Alignment is anatomic. Bone marrow signal/fracture: No evidence for acute or chronic fracture. No pathologic marrow infiltration. Craniocervical junction: Craniocervical junction is unremarkable. Cord: The cervical spinal cord is within normal limits of signal intensity and morphology. Cervical soft tissues: Subcentimeter nodules right thyroid, not requiring follow-up. Otherwise unremarkable. C2-C3: No significant canal or foraminal narrowing. C3-C4: No significant canal or foraminal narrowing. C4-C5: No significant canal or foraminal narrowing. C5-C6: No significant canal or foraminal narrowing. C6-C7: No significant canal or foraminal narrowing. C7-T1: No significant canal or foraminal narrowing. Upper thoracic spine: Visualized upper thoracic canal and foramina are without significant narrowing. IMPRESSION: Unremarkable MRI cervical spine. ELECTRONICALLY SIGNED BY: Madan Pelaez MD Normal Not Available CNOVon 10-29-2024 CNOV Office Visit ([facility] ) BRITTANIE GARCIA ([id number]) 1985 F Date Time Provider Department 10/29/24 4:30 PM HARMAN SULLIVAN [facility] During your visit today, we recorded the following information about you: Pulse Blood pressure Weight Height 102/minute 111/77 74 kg 1.575 m Harman Sullivan MD 10/29/2024 5:28 PM Signed BOTOX PREEMPT PROTOCOL Total headache days per month: 2-4 a month. Tends to take 1-2 weeks to kick in and 1-2 weeks before visit wears OFF Severity of headaches: Severe Botox effective: YES The risks, benefits and anticipated outcomes of the procedure, the risks and benefits of the alternatives to the procedure, and the roles and tasks of the personnel to be involved, were discussed with the patient. The patient has given written informed consent to the procedure and agrees to proceed. Yes Treatment # 4 with me, 10+ in past BOTOX brought in by patient? 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 10 units divided in 2 sites [id number] [...] Harman Sullivan MD Referring Provider: HARMAN SULLIVAN [[id number]] Allergies As of Date: 10/29/2024 Noted Allergy Reaction DHE 06/13/2012 12 - Shortness of Breath ADHESIVE 07/28/2022 2 - Rash 14 - Other: See Comments Comments: Rash and blisters CAFFEINE 06/13/2012 11 - Vomiting DROPERIDOL 07/30/2024 14 - Other: See Comments Comments: Severe restless leg flare up METOPROLOL 05/01/2023 7 - Swelling Date Reviewed: 10/29/2024 Reviewed by: Jennifer Light LPN - Fully Assessed Reason for Visit: Botox Injection [373] Primary Visit Diagnosis:Chronic migraine without aura, with intractable migraine, so stated, with status migrainosus [G43.711] Other Visit Diagnosis:Neck pain [M54.2] Order(s):[] onabotulinum toxin type A 200 Units injection (BOTOX)Disp: Rfl: Prescriptions as of 10/29/2024 - tiZANidine (ZANAFLEX) 4 mg tablet Take [...] at bedtime. Problem List As Of Date: 10/29/2024 (None) Prescriptions ordered this encounter Disp Refills Start End ONABOTULINUMTOXINA 100 UNIT SOLUTION* 10/29/2024 10/29/2024 Route: IM Disposition: Return in about 6 months (around 04/30/2025). Follow-up and Disposition History for Encounter Date Provider Department Center 10/29/2024 [id number], TED [facility] Encounter Status:Closed by HARMAN SULLIVAN on 10/29/24 [facility] Salima 09-26-2024 ZULMAN Telephone ([facility]) BRITTANIE GARCIA ([id number]) 1985 F Date Time Provider Department 09/26/24 HARMAN SULLIVAN [facility] During your visit today, we recorded the following information about you: Isabel Luther MA 09/26/2024 9:44 AM Signed Reminder Message Due: Today Botox due for 10/29 Exp 10/14 Submit date 09/28 Evonne Dillard RN 10/06/2024 8:38 AM Signed There is already a referral in for this patient and pharm auth has submitted to insurance and case is still pending with insurance as of 10/03/2024. PRATIBHA Mccullough, RN, BA Evonne Dillard RN 10/09/2024 5:14 PM Signed Botox approved 10/15/2024-10/14/2025. PRATIBHA Mccullough, RN, BA Allergies As of Date: 09/26/2024 Noted Allergy Reaction DHE 06/13/2012 12 - Shortness of Breath ADHESIVE 07/28/2022 2 - Rash 14 - Other: See Comments Comments: Rash and blisters CAFFEINE 06/13/2012 11 - Vomiting DROPERIDOL 07/30/2024 14 - Other: See Comments Comments: Severe restless leg flare up METOPROLOL 05/01/2023 7 - Swelling Date Reviewed: 07/30/2024 Reviewed by: Isabel Luther MA - Fully Assessed Reason for Visit: Insurance Authorization [[id number]] Cmt: Botox Prescriptions as of 10/10/2024 - tiZANidine (ZANAFLEX) 4 mg tablet Take [...] at bedtime. Problem List As Of Date: 09/26/2024 (None) Encounter Status:Closed by EVONNE DILLARD on 10/10/24 Normal [facility] Appearance of UrineOrdered B y: Peg Ruiz on 09-17-2024 Appearance (U) Urine appearance Clear [facility] B-Type Natriuretic Peptideon 09-17-2024 Natriuretic peptide B (Bld) [Mass/Vol] 24.0 pg/mL Normal 5-100 [facility] Comment on above: Result Comment: PERF ORMED BY: [facility] [address] [place] [id number] PATHOLOGIST LAWYER PROBATE RAFIA LOPEZ M.D. Performed By: #### C K, BMP, PT, BNP, DDIMER, CBC, HS TROP ####[place] [id number] [place] [id number] [facility] Bacteria [Presence] in Urine by AutomatedOrdered By: Peg Jocelyne on 09-17-2024 Bacteria Auto Ql (U) Bacteria [Presence] in Urine by Automated None Seen [facility] Basic Metabolic Panelon 08-21 Anion gap [Moles/Vol] 10.9 mmol/L Normal 6.0-15.0 [facility] Comment on above: Performed By: #### C K, BMP, PT, BNP, DDIMER, CBC, HS TROP ####[place] [address] [place] [address] [facility] Calcium [Mass/Vol] 9.4 mg/dL Normal 8.6-10.3 [facility] Comment on above: Performed By: #### C K, BMP, PT, BNP, DDIMER, CBC, HS TROP ####[facility] [place] [address] [place] Chloride [Moles/Vol] 106 mmol/L Normal 98-107 [facility] Comment on above: Performed By: #### C K, BMP, PT, BNP, DDIMER, CBC, HS TROP ####[facility] [place] [address] [place] CO2 [Moles/Vol] 26.7 mmol/L Normal 21.0-31.0 [facility] Comment on above: Performed By: #### C K, BMP, PT, BNP, DDIMER, CBC, HS TROP ####[place] [address] [place] [id number] [facility] Creatinine [Mass/Vol] 0.91 mg/dL Normal 0.60-1.20 [facility] Comment on above: Performed By: #### C K, BMP, PT, BNP, DDIMER, CBC, HS TROP ####[place] [address] [place] [address] [place] Creatinine Clr Calc Pharmacy 80.55 Normal [facility] Comment on above: Result Comment: PERF ORMED BY: [facility] [address] [place] [address] PATHOLOGIST LAWYER PROBATE RAFIA LOPEZ M.D. Performed By: #### C K, BMP, PT, BNP, DDIMER, CBC, HS TROP ####[address] GFR/1.73 sq M.predicted MDRD (S/P/Bld) [Vol rate/Area] mL/min/{1.73_m2} Normal [facility] Comment on above: Performed By: #### C K, BMP, PT, BNP, DDIMER, CBC, HS TROP ####[address] Glucose [Mass/Vol] 99 mg/dL Normal 70-100 [facility] Comment on above: Result Comment: [place] Glucose Reference Range is dependent on time and content of last meal. Glucose of more than 200 mg/dL in a nonstressed, ambulatory subject supports the diagnosis of Diabetes Mellitus. ADA recommended reference range Performed By: #### C K, BMP, PT, BNP, DDIMER, CBC, HS TROP ####[place] [id number] [facility] Potassium [Moles/Vol] 3.6 mmol/L Normal 3.5-5.1 [facility] Comment on above: Performed By: #### C K, BMP, PT, BNP, DDIMER, CBC, HS TROP ####[facility] Sodium [Moles/Vol] 140 mmol/L Normal 136-145 [facility] Comment on above: Performed By: #### C K, BMP, PT, BNP, DDIMER, CBC, HS TROP ####[facility] Urea nitrogen [Mass/Vol] 13 mg/dL Normal 7-25 [facility] Comment on above: Performed By: #### C K, BMP, PT, BNP, DDIMER, CBC, HS TROP ####[facility] Basophils Auto (Bld) [#/Vol] Ordered By: Peg Ruiz on 09-17-2024 Basophils (Bld) [#/Vol] Automated basophil count 0.0-0.[address] [facility] Basophils/100 WBC Auto (Bld) Ordered By: Peg Ruiz on 09-17-2024 Basophils/100 WBC (Bld) Automated basophil % . [facility] Bilirubin Test strip Ql (U)O rdered By: Peg Ruiz on 09-17-2024 Bilirubin Ql (U) Bilirubin.total [Pre sence] in Urine by Test strip Negative [facility] CT abdomen pelvis wo conon 0 09-17-2024 CT abdomen pelvis wo con [facility] [place] [address] CT Scan Report Signed Patient: Brittanie Garcia MR#: [id number] : 1985 Acct:[id number] Age/Sex: 39 / F ADM Date: 09/17/24 Loc: ER Room: Type: [facility] ER Attending Dr: Copies to: DO Peg [...] uropathy. Impression dictated by: Prince Heath Jr., D.O. 09/17/2024 8:21 AM Dictation Location: [place] [address] Transcribed By: [facility] 09/17/24820 Dictated By: Prince Heath Jr, DO 09/17/24817 Signed By: 09/17/24820 Normal [facility] Calcium [Mass/volume] in Ser um or PlasmaOrdered By: Peg Ruiz on 09-17-2024 Calcium [Mass/Vol] Calcium [Mass/volume ] in Serum or Plasma 8.6-10.3 [facility] Carbon dioxide, total [Moles /volume] in Serum or PlasmaOrdered By: Peg Ruiz on 09-17-2024 CO2 [Moles/Vol] Carbon dioxide, tota l [Moles/volume] in Serum or Plasma 21.0-31.0 [facility] Chloride [Moles/volume] in S leticia or PlasmaOrdered By: Peg Ruiz on 09-17-2024 Chloride [Moles/Vol] Chloride [Moles/vol ume] in Serum or Plasma 98-107 [facility] Color Auto (U)Ordered By: Donaldo Ruiz on 09-17-2024 Color (U) Color of Urine by Auto Yellow Fi [facility] Complete Blood Count Auto Di ffon 09-17-2024 Basophils (Bld) [#/Vol] 0.0 10*3/uL Normal 0.0-0.2 [facility] Comment on above: Result Comment: PERF ORMED BY: [facility] [address] [place] [address] PATHOLOGIST LAWYER PROBATE RAFIA LOPEZ M.D. Performed By: #### C K, BMP, PT, BNP, DDIMER, CBC, HS TROP ####[address] Basophils/100 WBC (Bld) 0.7 % Normal . [facility] Comment on above: Performed By: #### C K, BMP, PT, BNP, DDIMER, CBC, HS TROP ####[address] Eosinophils (Bld) [#/Vol] 0.1 10*3/uL Normal 0.0-0.45 [facility] Comment on above: Performed By: #### C K, BMP, PT, BNP, DDIMER, CBC, HS TROP ####[address] Eosinophils/100 WBC (Bld) 2.0 % Normal . [facility] Comment on above: Performed By: #### C K, BMP, PT, BNP, DDIMER, CBC, HS TROP ####[address] Erythrocyte distribution width (RBC) [Ratio] 13.9 % Normal 11.9-15.3 [facility] Comment on above: Performed By: #### C K, BMP, PT, BNP, DDIMER, CBC, HS TROP ####[address] Hematocrit (Bld) [Volume fraction] 42.2 % Normal 34.0-46.4 [facility] Comment on above: Performed By: #### C K, BMP, PT, BNP, DDIMER, CBC, HS TROP ####[address] Hemoglobin (Bld) [Mass/Vol] 14.4 g/dL Normal 11.8-15.4 [facility] Comment on above: Performed By: #### C K, BMP, PT, BNP, DDIMER, CBC, HS TROP ####[address] Lymphocytes (Bld) [#/Vol] 2.6 10*3/uL Normal 1.00-4.8 [facility] Comment on above: Performed By: #### C K, BMP, PT, BNP, DDIMER, CBC, HS TROP ####[address] Lymphocytes/100 WBC (Bld) 41.7 % Normal . [facility] Comment on above: Performed By: #### C K, BMP, PT, BNP, DDIMER, CBC, HS TROP ####[address] MCH (RBC) [Entitic mass] 29.7 pg Normal 24.7-34.3 [facility] Comment on above: Performed By: #### C K, BMP, PT, BNP, DDIMER, CBC, HS TROP ####[address] MCV (RBC) [Entitic vol] 87.1 fL Normal 80-100 [facility] Comment on above: Performed By: #### C K, BMP, PT, BNP, DDIMER, CBC, HS TROP ####[address] Mean Corpuscular HGB Conc 34.1 g/dL Normal 32.0-35.0 [facility] Comment on above: Performed By: #### C K, BMP, PT, BNP, DDIMER, CBC, HS TROP ####[address] Monocytes (Bld) [#/Vol] 0.4 10*3/uL Normal 0.0-0.8 [facility] Comment on above: Performed By: #### C K, BMP, PT, BNP, DDIMER, CBC, HS TROP ####[address] Monocytes/100 WBC (Bld) 16.75 % Normal 0.00-20.00 [facility] Comment on above: Performed By: #### C K, BMP, PT, BNP, DDIMER, CBC, HS TROP ####[address] Monocytes/100 WBC (Bld) 7.0 % Normal . [facility] Comment on above: Performed By: #### C K, BMP, PT, BNP, DDIMER, CBC, HS TROP ####[address] Neutrophils (Bld) [#/Vol] 3.0 10*3/uL Normal 1.8-7.7 [facility] Comment on above: Performed By: #### C K, BMP, PT, BNP, DDIMER, CBC, HS TROP ####[address] Neutrophils/100 WBC (Bld) 48.6 % Normal . [facility] Comment on above: Performed By: #### C K, BMP, PT, BNP, DDIMER, CBC, HS TROP ####[address] NRBC% 0.1 /100{WBC} Normal 0-0.5 [facility] Comment on above: Performed By: #### C K, BMP, PT, BNP, DDIMER, CBC, HS TROP ####[address] Platelet mean volume (Bld) [Entitic vol] 7.5 fL Normal 6.3-10.7 [facility] Comment on above: Performed By: #### C K, BMP, PT, BNP, DDIMER, CBC, HS TROP ####[address] [place] [address] [place] Platelets (Bld) [#/Vol] 297 10*3/uL Normal 150-450 [facility] Comment on above: Performed By: #### C K, BMP, PT, BNP, DDIMER, CBC, HS TROP ####[address] RBC (Bld) [#/Vol] 4.85 10*6/uL Normal 3.60-5.00 [facility] Comment on above: Performed By: #### C K, BMP, PT, BNP, DDIMER, CBC, HS TROP ####[place] [address] WBC (Bld) [#/Vol] 6.3 10*3/uL Normal 3.8-11.6 [facility] Comment on above: Performed By: #### C K, BMP, PT, BNP, DDIMER, CBC, HS TROP ####[place] [address] Creatine Kinaseon 09-17-2024 CK [Catalytic activity/Vol] 58 U/L Normal 30-223 [facility] Comment on above: Performed By: #### C K, BMP, PT, BNP, DDIMER, CBC, HS TROP ####[address] Creatine kinase [Enzymatic a ctivity/volume] in Serum or PlasmaOrdered By: Peg Ruiz on 09-17-2024 CK [Catalytic activity/Vol] Creatine kinase [Enzymatic activity/volume] in Serum or Plasma - [facility] Creatinine [Mass/volume] in Serum or PlasmaOrdered By: Peg Ruiz on 09-17-2024 Creatinine [Mass/Vol] Creatinine [Mass/v olume] in Serum or Plasma 0.60-1.20 [facility] D-Dimer High Sensitivityon 0 09-17-2024 D-Dimer High Sensitivity <200 Normal 0-243 [facility] Comment on above: Result Comment: [...] coagulation studies. Please contact the laboratory at [phone] for redraw instructions. PERFORMED BY: [place] [address] PATHOLOGIST LAWYER PROBATE RAFIA LOPEZ M.D. Performed By: #### C K, BMP, PT, BNP, DDIMER, CBC, HS TROP ####[facility] [address] [place] [address] [place] Dipstick and Microscopicon 0 09-17-2024 Appearance (U) Clear Normal Clear [facility] Comment on above: Order Comment: Name Collection Type:: Clean-Voided Midstream Performed By: #### U HCG, ADDONUAPLUS #### [address] Bacteria,Urine Rare Normal None Seen [facility] Comment on above: Order Comment: Name Collection Type:: Clean-Voided Midstream Performed By: #### U HCG, ADDONUAPLUS #### [place] [address] [place] Bilirubin,Urine Negative Normal Negative [facility] Comment on above: Order Comment: Name Collection Type:: Clean-Voided Midstream Performed By: #### U HCG, ADDONUAPLUS #### [place] [address] [place] Color (U) Colorless Normal Yellow [facility] Comment on above: Order Comment: Name Collection Type:: Clean-Voided Midstream Performed By: #### U HCG, ADDONUAPLUS #### [place] [address] [place] Glucose Ql (U) Normal Normal Normal [facility] Comment on above: Order Comment: Name Collection Type:: Clean-Voided Midstream Performed By: #### U HCG, ADDONUAPLUS #### [facility] [address] [place] [address] Hyaline Casts,Urine None Normal 0-8 [facility] Comment on above: Order Comment: Name Collection Type:: Clean-Voided Midstream Performed By: #### U HCG, ADDONUAPLUS #### [address] Ketones Ql (U) Negative Normal Negative [facility] Comment on above: Order Comment: Name Collection Type:: Clean-Voided Midstream Performed By: #### U HCG, ADDONUAPLUS #### [address] Leukocyte esterase Test strip Ql (U) 3+ High Negative [facility] Comment on above: Order Comment: Name Collection Type:: Clean-Voided Midstream Performed By: #### U HCG, ADDONUAPLUS #### [place] [address] [place] Nitrite,Urine Negative Normal Negative [facility] Group Comment on above: Order Comment: Name Collection Type:: Clean-Voided Midstream Performed By: #### U HCG, ADDONUAPLUS #### [place] [address] [place] Occult Blood,Urine Trace High Negative [facility] Comment on above: Order Comment: Name Collection Type:: Clean-Voided Midstream Performed By: #### U HCG, ADDONUAPLUS #### [place] [address] [place] pH (U) 6.0 [pH] Normal 5.0-9.0 [facility] Comment on above: Order Comment: Name Collection Type:: Clean-Voided Midstream Performed By: #### U HCG, ADDONUAPLUS #### [place] [address] [place] Protein,Urine Negative Normal Negative [facility] Comment on above: Order Comment: Name Collection Type:: Clean-Voided Midstream Performed By: #### U HCG, ADDONUAPLUS #### [address] RBC,Urine 1-2 Normal 0-4 [facility] Comment on above: Order Comment: Name Collection Type:: Clean-Voided Midstream Performed By: #### U HCG, ADDONUAPLUS #### [place] [address] [place] Specificy [place],Urine 1.009 Normal 1.001-1.03 0 [facility] Comment on above: Order Comment: Name Collection Type:: Clean-Voided Midstream Performed By: #### U HCG, ADDONUAPLUS #### [address] Squamous Epithelial Cell,Urine 1-2 Normal 0-2 [facility] Comment on above: Order Comment: Name Collection Type:: Clean-Voided Midstream Performed By: #### U HCG, ADDONUAPLUS #### [address] Urobilinogen,Urine Normal Normal Normal [facility] Comment on above: Order Comment: Name Collection Type:: Clean-Voided Midstream Performed By: #### U HCG, ADDONUAPLUS #### [address] WBC,Urine 1-2 Normal 0-4 [facility] Comment on above: Order Comment: Name Collection Type:: Clean-Voided Midstream Performed By: #### U HCG, ADDONUAPLUS #### [address] ECG 12 lead ECGon 09-17-2024 ECG 12 lead ECG [facility] [place] [address] Electrocardiograph Report Signed Patient: Brittanie Garcia MR#: [id number] : 1985 Acct:[id number] Age/Sex: 39 / F ADM Date: 09/17/24 Loc: ER Room: Type: [facility] ER Attending Dr: Ordering Provider: Peg Ruiz [...] By Peg Ruiz DO 0151 Normal [facility] Eosinophils Auto (Bld) [#/Vo l]Ordered By: Peg Ruiz on 09-17-2024 Eosinophils (Bld) [#/Vol] Automated eosinophil count 0.0-0.45 [facility] Eosinophils/100 WBC Auto (Bl d)Ordered By: Peg Ruiz on 09-17-2024 Eosinophils/100 WBC (Bld) Automated eosinophil % . [facility] Epithelial cells.squamous [# /area] in Urine sediment by Automated countOrdered By: Peg Ruiz on 09-17-2024 Epithelial cells.squamous Auto (Urine sed) [#/Area] Epithelial cells.squamous [#/area] in Urine sediment by Automated count 0-2 [facility] Erythrocyte distribution wid th Auto (RBC) [Ratio]Ordered By: Peg Ruiz on 09-17-2024 Erythrocyte distribution width (RBC) [Ratio] Erythrocyte distribution width [Ratio] by Automated count 11.9-15.3 [facility] Erythrocytes [#/area] in Uri ne sediment by Automated countOrdered By: Peg Ruiz on 09-17-2024 RBC Auto (Urine sed) [#/Area] Erythrocytes [#/area] in Urine sediment by Automated count 0-4 [facility] Fibrin D-dimer [Presence] in Platelet poor plasma by Latex agglutinationOrdered By: Peg Ruiz on 09-17-2024 Fibrin D-dimer LA Ql (PPP) Fibrin D-dimer [Presence] in Platelet poor plasma by Latex agglutination 0-243 [facility] Comment on above: The reference range for [...] coagulation studies. Please contact the laboratory at [phone] for redraw instructions. Glucose [Mass/volume] in Ser um or PlasmaOrdered By: Peg Ruiz on 09-17-2024 Glucose [Mass/Vol] Glucose [Mass/volume ] in Serum or Plasma 70-100 [facility] Comment on above: ADA recommended refe rence rangeRandom Glucose Reference Range is dependent on time and content of last meal. Glucose of more than 200 mg/dL in a nonstressed, ambulatory subject supports the diagnosis of Diabetes Mellitus. Glucose [Mass/volume] in Uri ne by Test stripOrdered By: Peg Ruiz on 09-17-2024 Glucose Test strip (U) [Mass/Vol] Glucose [Mass/volume] in Urine by Test strip Normal [facility] HCG ( test) IA.rapi d Ql (U)Ordered By: Peg Ruiz on 09-17-2024 HCG ( test) Ql (U) Urine human chorionic gonadotropin (hCG) detection by immunoassay [facility] HCG,Urineon 09-17-2024 Beta HCG ( test) Ql (U) Negative Normal [facility] Comment on above: Order Comment: Name Collection Type:: Clean-Voided Midstream Result Comment: PERF ORMED BY: [facility] [address] [place] [address] PATHOLOGIST LAWYER PROBATE RAFIA LOPEZ M.D. Performed By: #### U HCG, ADDONUAPLUS #### [address] Hematocrit Auto (Bld) [Volum e fraction]Ordered By: Peg Ruiz on 09-17-2024 Hematocrit (Bld) [Volume fraction] Hematocrit [Volume Fraction] of Blood by Automated count 34.0-46.4 [facility] Hemoglobin Test strip Ql (U) Ordered By: Peg Ruiz on 09-17-2024 Hemoglobin Ql (U) Hemoglobin [Presence ] in Urine by Test strip High Negative [facility] Hemoglobin [Mass/volume] in BloodOrdered By: Peg Ruiz on 09-17-2024 Hemoglobin (Bld) [Mass/Vol] Hemoglobin [Mass/volume] in Blood 11.8-15.4 [facility] Hyaline casts [#/area] in Ur ine sediment by Automated countOrdered By: Peg Ruiz on 09-17-2024 Hyaline casts Auto (Urine sed) [#/Area] Hyaline casts [#/area] in Urine sediment by Automated count 0-8 [facility] INR in Platelet poor plasma by Coagulation assayOrdered By: Peg Ruiz on 09-17-2024 INR Coag (PPP) [Relative time] INR in Platelet poor plasma by Coagulation assay [facility] Comment on above: INR Therapeutic Rang e [...] i n Urine by Test strip Negative [facility] Leukocyte esterase [Presence ] in Urine by Test stripOrdered By: Peg Ruiz on 09-17-2024 Leukocyte esterase Test strip Ql (U) Leukocyte esterase [Presence] in Urine by Test strip High Negative [facility] Leukocytes [#/area] in Urine sediment by Automated countOrdered By: Peg Ruiz on 09-17-2024 WBC Auto (Urine sed) [#/Area] Leukocytes [#/area] in Urine sediment by Automated count 0-4 [facility] Leukocytes [#/volume] correc harmna for nucleated erythrocytes in Blood by Automated counOrdered By: Peg Ruiz on 09-17-2024 WBC corrected for nucl RBC Auto (Bld) [#/Vol] Leukocytes [#/volume] corrected for nucleated erythrocytes in Blood by Automated coun 3.8-11.6 [facility] Lymphocytes Auto (Bld) [#/Vo l]Ordered By: Peg Ruiz on 09-17-2024 Lymphocytes (Bld) [#/Vol] Lymphocytes [#/volume] in Blood by Automated count 1.00-4.8 [facility] Lymphocytes/100 WBC Auto (Bl d)Ordered By: Peg Ruiz on 09-17-2024 Lymphocytes/100 WBC (Bld) Lymphocytes/100 leukocytes in Blood by Automated count . [facility] MCH Auto (RBC) [Entitic mass ]Ordered By: Peg Ruiz on 09-17-2024 MCH (RBC) [Entitic mass] MCH [Entitic mass] by Automated count 24.7-34.3 [facility] MCHC Auto (RBC) [Mass/Vol]Or dered By: Peg Ruiz on 09-17-2024 MCHC (RBC) [Mass/Vol] MCHC [Mass/volume] by Automated count 32.0-35.0 [facility] MCV Auto (RBC) [Entitic vol] Ordered By: Peg Ruiz on 09-17-2024 MCV (RBC) [Entitic vol] MCV [Entitic volume] by Automated count 80-100 [facility] Monocyte distribution width [Entitic volume] in Blood by AutomatedOrdered By: Peg Ruiz on 09-17-2024 Monocyte distribution width Auto (Bld) [Entitic vol] Monocyte distribution width [Entitic volume] in Blood by Automated 0.00-20.00 [facility] Monocytes Auto (Bld) [#/Vol] Ordered By: Peg Ruiz on 09-17-2024 Monocytes (Bld) [#/Vol] Automated blood monocyte count 0.0-0.8 [facility] Monocytes/100 WBC Auto (Bld) Ordered By: Peg Ruiz on 09-17-2024 Monocytes/100 WBC (Bld) Automated monocyte % . [facility] Natriuretic peptide B [Mass/ Vol]Ordered By: Peg Ruiz on 09-17-2024 Natriuretic peptide B (Bld) [Mass/Vol] BNP ser/plas 5-100 [facility] Neutrophils Auto (Bld) [#/Vo l]Ordered By: Peg Ruiz on 09-17-2024 Neutrophils (Bld) [#/Vol] Neutrophils [#/volume] in Blood by Automated count 1.8-7.7 [facility] Neutrophils/100 WBC Auto (Bl d)Ordered By: Peg Ruiz on 09-17-2024 Neutrophils/100 WBC (Bld) Automated neutrophil % . [facility] Nitrite Test strip Ql (U)Ord ered By: Peg Ruiz on 09-17-2024 Nitrite Ql (U) Nitrite [Presence] i n Urine by Test strip Negative [facility] No Panel InformationOrdered By: Peg Ruiz on 09-17-2024 Estimated GFR (CKD-EPI) > 60.0 mL/Min [facility] Creatinine Clearance (Chem 80.55 [facility] Nucleated erythrocytes [Pres ence] in Blood by Automated countOrdered By: Peg Ruiz on 09-17-2024 Nucleated RBC Auto Ql (Bld) Nucleated erythrocytes [Presence] in Blood by Automated count 0-0.5 [facility] Platelet mean volume Auto (B ld) [Entitic vol]Ordered By: Peg Ruiz on 09-17-2024 Platelet mean volume (Bld) [Entitic vol] Platelet mean volume [Entitic volume] in Blood by Automated count 6.3-10.7 [facility] Platelets Auto (Bld) [#/Vol] Ordered By: Peg Ruiz on 09-17-2024 Platelets (Bld) [#/Vol] Platelets [#/volume] in Blood by Automated count 150-450 [facility] Potassium [Moles/volume] in Serum or PlasmaOrdered By: Peg Ruiz on 09-17-2024 Potassium [Moles/Vol] Potassium [Moles/v olume] in Serum or Plasma 3.5-5.1 [facility] Protein Test strip (U) [Mass /Vol]Ordered By: Peg Ruiz on 09-17-2024 Protein (U) [Mass/Vol] Protein [Mass/vol ume] in Urine by Test strip Negative [facility] Prothrombin Time INRon 09-17 INR Coag (PPP) [Relative time] 1.0 {INR} Normal [facility] Comment on above: Result Comment: [...] BMP, PT, BNP, DDIMER, CBC, HS TROP ####[facility] PT Coag (PPP) [Time] 11.1 s Normal 9.0-12.9 [facility] Comment on above: Result Comment: A he matocrit value greater than 55% may lead to inaccurate results in coagulation testing. Patients having hematocrit values >55% require a special collection tube for coagulation studies. Please contact the laboratory at [phone] for redraw instructions. Performed By: #### C K, BMP, PT, BNP, DDIMER, CBC, HS TROP ####[facility] [address] [place] [id number] [facility] Prothrombin time (PT)Ordered By: Peg Ruiz on 09-17-2024 PT Coag (PPP) [Time] Prothrombin time (PT) 9.0- 12.9 [facility] Comment on above: A hematocrit value g reater than 55% may lead to inaccurate results in coagulation testing. Patients having hematocrit values >55% require a special collection tube for coagulation studies. Please contact the laboratory at [phone] for redraw instructions. RBC Auto (Bld) [#/Vol]Ordere d By: Peg Ruiz on 09-17-2024 RBC (Bld) [#/Vol] Erythrocytes [#/volu me] in Blood by Automated count 3.60-5.00 [facility] Serum or plasma anion gap de terminationOrdered By: Peg Ruiz on 09-17-2024 Anion gap [Moles/Vol] Serum or plasma an ion gap determination 6.0-15.0 [facility] Sodium [Moles/volume] in Ser um or PlasmaOrdered By: Peg Ruiz on 09-17-2024 Sodium [Moles/Vol] Sodium [Moles/volume ] in Serum or Plasma 136-145 [facility] Specific gravity Test strip (U) [Rel density]Ordered By: Peg Ruiz on 09-17-2024 Specific gravity (U) [Rel density] Specific gravity of Urine by Test strip 1.001-1.03 0 [facility] Troponin I High Sensitivityo n 09-17-2024 Troponin I High Sensitivity <3 Normal 0-15 [facility] Comment on above: Result Comment: The Troponin units of report have been changed to meet the Chest Pain Accreditation requirement, element EC5.M1l2. Troponin units are changed from pg/ml to ng/L. Also, the decimal is removed and results are in whole numbers. PERFORMED BY: [facility] [address] [place] [address] PATHOLOGIST LAWYER [employer]OB[employer] RAFIA LOPEZ M.D. Performed By: #### C K, BMP, PT, BNP, DDIMER, CBC, HS TROP ####[facility] [id number] [place] [id number] [facility] Troponin I.cardiac [Mass/vol ume] in Serum or Plasma by Detection limit <= 0.01 ng/Ordered By: Peg Ruiz on 09-17-2024 Troponin I.cardiac DL <= 0.01 ng/mL [Mass/Vol] Troponin I.cardiac [Mass/volume] in Serum or Plasma by Detection limit <= 0.01 ng/ 0-15 [facility] Comment on above: The Troponin units o f report have been changed to meet the Chest Pain Accreditation requirement, element EC5.M1l2. Troponin units are changed from pg/ml to ng/L. Also, the decimal is removed and results are in whole numbers. Urea nitrogen [Mass/volume] in Serum or PlasmaOrdered By: Peg Ruiz on 09-17-2024 Urea nitrogen [Mass/Vol] Urea nitrogen [Mass/volume] in Serum or Plasma 12-12 [facility] Urobilinogen Test strip (U) [Mass/Vol]Ordered By: Peg Ruiz on 09-17-2024 Urobilinogen (U) [Mass/Vol] Urobilinogen [Mass/volume] in Urine by Test strip Normal [facility] WBC Auto (Bld) [#/Vol]Ordere d By: Peg Ruiz on 09-17-2024 WBC (Bld) [#/Vol] Leukocytes [#/volume ] in Blood by Automated count 3.8-11.6 [facility] X-ray reportOrdered By: Larry Heath on 09-17-2024 Study report [facility] [place] [address] XRay Report Signed Patient: Brittanie Garcia MR# : [id number] : 1985 Acct:[id number] Age/Sex: 39 / F ADM Date: 5 Loc: ER Room: Type: [facility] ER Attending Dr: Copies to: Peg Ruiz DO~ Ordering Provider: Peg Ruiz DO Date of Service: 09/17/24 XR/XR chest 2V*: Chest Pain Chest 2 views CLINICAL HISTORY: Chest tightness left arm pain COMPARISON: Chest 08/01/2024 FINDINGS: Heart normal size. Lungs are clear. No free air. XR/XR chest 2V* IMPRESSION: NO ACUTE CARDIOPULMONARY ABNORMALITY. Impression dictated by: Prince Heath Jr., Jeannette 09/17/2024 8:28 AM Dictation Location: [place] [address] Transcribed By: [facility] 09/17/24827 Dictated By: Prince Heath Jr, DO 09/17/24827 Signed By: 09/17/24827 [facility] XR chest 2V*on 09-17-2024 XR chest 2V* [facility] [place] [address] XRay Report Signed Patient: Brittanie Garcia MR#: [id number] : 1985 Acct:[id number] Age/Sex: 39 / F ADM Date: 09/17/24 Loc: ER Room: Type: [facility] ER Attending Dr: Copies to: Peg Ruiz DO Ordering Provider: Peg Ruiz DO Date of Service: 09/17/24 XR/XR chest 2V*: Chest Pain Chest 2 views CLINICAL HISTORY: Chest tightness left arm pain COMPARISON: Chest 08/01/2024 FINDINGS: Heart normal size. Lungs are clear. No free air. XR/XR chest 2V* IMPRESSION: NO ACUTE CARDIOPULMONARY ABNORMALITY. Impression dictated by: Prince Heath Jr., D.O. 09/17/2024 8:28 AM Dictation Location: [place] [address] Transcribed By: [facility] 09/17/24 0828 Dictated By: Prince Heath Jr, DO 09/17/2428 Signed By: 09/17/24 0828 Normal [facility] pH Test strip (U)Ordered By: Peg Ruiz on 09-17-2024 pH (U) pH of Urine by Test strip 5.0-9.0 [facility] Alanine aminotransferase [En zymatic activity/volume] in Serum or PlasmaOrdered By: Luis Goins on 08-01-2024 ALT [Catalytic activity/Vol] Alanine aminotransferase [Enzymatic activity/volume] in Serum or Plasma 7-52 [facility] Albumin [Mass/volume] in Ser um or Plasma by Bromocresol green (BCG) dye binding methoOrdered By: Luis Goins on 08-01-2024 Albumin BCG dye [Mass/Vol] Albumin [Mass/volume] in Serum or Plasma by Bromocresol green (BCG) dye binding metho 3.5-5.7 [facility] Alkaline phosphatase [Enzyma tic activity/volume] in Serum or PlasmaOrdered By: Luis Goins on 08-01-2024 ALP [Catalytic activity/Vol] Alkaline phosphatase [Enzymatic activity/volume] in Serum or Plasma 34-104 [facility] Appearance of UrineOrdered B y: Luis Goins on 08-01-2024 Appearance (U) Urine appearance Clear [facility] Aspartate aminotransferase [ Enzymatic activity/volume] in Serum or PlasmaOrdered By: Luis Goins on 08-01-2024 AST [Catalytic activity/Vol] Aspartate aminotransferase [Enzymatic activity/volume] in Serum or Plasma 13-39 [facility] Bacteria [Presence] in Urine by AutomatedOrdered By: Luis Goins on 08-01-2024 Bacteria Auto Ql (U) Bacteria [Presence] in Urine by Automated High None Seen [facility] Basophils Auto (Bld) [#/Vol] Ordered By: Luis Goins on 08-01-2024 Basophils (Bld) [#/Vol] Automated basophil count 0.0-0.[address] [facility] Basophils/100 WBC Auto (Bld) Ordered By: Luis Goins on 08-01-2024 Basophils/100 WBC (Bld) Automated basophil % . [facility] Bilirubin Test strip Ql (U)O rdered By: Luis Goins on 08-01-2024 Bilirubin Ql (U) Bilirubin.total [Pre sence] in Urine by Test strip Negative [facility] Bilirubin.total [Mass/volume ] in Serum or PlasmaOrdered By: Luis Goins on 08-01-2024 Bilirubin [Mass/Vol] Bilirubin.total [Mass/volume] in Serum or Plasma 0.3-1.0 [facility] COVID Cepheid NegativeOrdere d By: Luis Goins on 08-01-2024 SARS-CoV-2 (COVID-19) Ab IA Ql COVID Cepheid Negative [facility] Comment on above: This is a duplicate [...] or Cepheid Disclaimer revoked sooner. PERFORMED BY: [facility] [address] [place] [address] PATHOLOGIST LAWYER [employer]OBATE RAFIA LOPEZ M.D. Normal [facility] Comment on above: Performed By: #### C EPHEID NEG, ADDONUAPLUS, COVID19 FLU RSV ####[facility] [id number] [place] [address] [facility] Calcium [Mass/volume] in Ser um or PlasmaOrdered By: Luis Goins on 08-01-2024 Calcium [Mass/Vol] Calcium [Mass/volume ] in Serum or Plasma 8.6-10.3 [facility] Carbon dioxide, total [Moles /volume] in Serum or PlasmaOrdered By: Luis Goins on 08-01-2024 CO2 [Moles/Vol] Carbon dioxide, tota l [Moles/volume] in Serum or Plasma 21.0-31.0 [facility] Cepheid COVID PCR Negativeon 08-01-2024 SARS-CoV-2 (COVID-19) RNA LISBETH+probe Ql (Unsp spec) Negative Normal Negative [facility] Comment on above: Result Comment: This is a duplicate [employer] Xpert Xpress CoV-2/Flu/RSV Plus RNA by RT-PCR result to be used for statistical tracking purpose only. PERFORMED BY: [facility] [address] [place] [id number] PATHOLOGIST LAWYER [employer]OB[employer] RAFIA LOPEZ M.D. Performed By: #### C EPHEID NEG, ADDONUAPLUS, COVID19 FLU RSV ####[address] [address] [place] [address] [place] Chloride [Moles/volume] in S leticia or PlasmaOrdered By: Luis Goins on 08-01-2024 Chloride [Moles/Vol] Chloride [Moles/vol ume] in Serum or Plasma 98-107 [facility] Color Auto (U)Ordered By: Yony Goins on 08-01-2024 Color (U) Color of Urine by Auto Yellow [facility] Complete Blood Count Auto Di ffon 08-01-2024 Basophils (Bld) [#/Vol] 0.0 10*3/uL Normal 0.0-0.2 [facility] Comment on above: Result Comment: PERF ORMED BY: [facility] [address] [place] [address] PATHOLOGIST LAWYER PROBATE RAFIA LOPEZ M.D. Performed By: #### C BC, CMP ####[address] [place] [address] [place] Basophils/100 WBC (Bld) 0.7 % Normal . [facility] Comment on above: Performed By: #### C BC, CMP ####[address] Eosinophils (Bld) [#/Vol] 0.0 10*3/uL Normal 0.0-0.45 [facility] Comment on above: Performed By: #### C BC, CMP ####[place] [id number] [facility] Eosinophils/100 WBC (Bld) 0.4 % Normal . [facility] Comment on above: Performed By: #### C BC, CMP ####[place] [id number] [facility] Erythrocyte distribution width (RBC) [Ratio] 13.3 % Normal 11.9-15.3 [facility] Comment on above: Performed By: #### C BC, CMP ####[address] Hematocrit (Bld) [Volume fraction] 39.8 % Normal 34.0-46.4 [facility] Comment on above: Performed By: #### C BC, CMP ####[address] Hemoglobin (Bld) [Mass/Vol] 13.4 g/dL Normal 11.8-15.4 [facility] Comment on above: Performed By: #### C BC, CMP ####[place] [id number] [facility] Lymphocytes (Bld) [#/Vol] 1.1 10*3/uL Normal 1.00-4.8 [facility] Comment on above: Performed By: #### C BC, CMP ####[place] [id number] [facility] Lymphocytes/100 WBC (Bld) 44.4 % Normal . [facility] Comment on above: Performed By: #### C BC, CMP ####[place] [id number] [facility] MCH (RBC) [Entitic mass] 29.3 pg Normal 24.7-34.3 [facility] Comment on above: Performed By: #### C BC, CMP ####[address] MCV (RBC) [Entitic vol] 86.8 fL Normal 80-100 [facility] Comment on above: Performed By: #### C BC, CMP ####[address] Mean Corpuscular HGB Conc 33.7 g/dL Normal 32.0-35.0 [facility] Comment on above: Performed By: #### C BC, CMP ####[address] Monocytes (Bld) [#/Vol] 0.3 10*3/uL Normal 0.0-0.8 [facility] Comment on above: Performed By: #### C BC, CMP ####[address] Monocytes/100 WBC (Bld) 26.77 % High 0.00-20.00 [facility] Comment on above: Result Comment: For adults in ED, MDW > 20.0 may be associated with a higher risk of sepsis during the first 12 hrs of hospital admission Performed By: #### C BC, CMP ####[address] Monocytes/100 WBC (Bld) 11.1 % Normal . [facility] Comment on above: Performed By: #### C BC, CMP ####[address] Neutrophils (Bld) [#/Vol] 1.1 10*3/uL Low 1.8-7.7 [facility] Comment on above: Performed By: #### C BC, CMP ####[address] Neutrophils/100 WBC (Bld) 43.4 % Normal . [facility] Comment on above: Performed By: #### C BC, CMP ####[address] NRBC% 0.3 /100{WBC} Normal 0-0.5 [facility] Comment on above: Performed By: #### C BC, CMP ####[address] Platelet mean volume (Bld) [Entitic vol] 7.7 fL Normal 6.3-10.7 [facility] Comment on above: Performed By: #### C BC, CMP ####[address] Platelets (Bld) [#/Vol] 196 10*3/uL Normal 150-450 [facility] Comment on above: Performed By: #### C TAVO, CMP ####[address] RBC (Bld) [#/Vol] 4.58 10*6/uL Normal 3.60-5.00 [facility] Comment on above: Performed By: #### C TAVO, CMP ####[address] WBC (Bld) [#/Vol] 2.5 10*3/uL Low 3.8-11.6 [facility] Comment on above: Performed By: #### C TAVO, CMP ####[address] Comprehensive Metabolic Pane pedro 08-01-2024 Albumin [Mass/Vol] 4.2 g/dL Normal 3.5-5.7 [facility] Comment on above: Performed By: #### C BC, CMP ####[address] Albumin/Globulin [Mass ratio] 1.5 {ratio} Normal [facility] Comment on above: Performed By: #### C BC, CMP ####[place] [id number] [facility] ALP [Catalytic activity/Vol] 58 U/L Normal 34-104 [facility] Comment on above: Performed By: #### C BC, CMP ####[address] ALT [Catalytic activity/Vol] 22 U/L Normal 7-52 [facility] [facility] Comment on above: Performed By: #### C BC, CMP ####[place] [id number] [facility] Anion gap [Moles/Vol] 10.6 mmol/L Normal 6.0-15.0 [facility] Comment on above: Performed By: #### C BC, CMP ####[address] AST [Catalytic activity/Vol] 23 U/L Normal 13-39 [facility] Comment on above: Performed By: #### C BC, CMP ####[address] Bilirubin [Mass/Vol] 0.3 mg/dL Normal 0.3-1.0 [facility] Comment on above: Performed By: #### C BC, CMP ####[address] Calcium [Mass/Vol] 8.8 mg/dL Normal 8.6-10.3 [facility] Comment on above: Performed By: #### C BC, CMP ####[address] Chloride [Moles/Vol] 106 mmol/L Normal 98-107 [facility] Comment on above: Performed By: #### C BC, CMP ####[place] [id number] [facility] CO2 [Moles/Vol] 27.0 mmol/L Normal 21.0-31.0 [facility] Comment on above: Performed By: #### C BC, CMP ####[place] [id number] [facility] Creatinine [Mass/Vol] 0.88 mg/dL Normal 0.60-1.20 [facility] Comment on above: Performed By: #### C BC, CMP ####[place] [id number] [facility] Creatinine Clr Calc Pharmacy 82.02 Normal [facility] Comment on above: Result Comment: PERF ORMED BY: [facility] [address] [place] [place] [id number] PATHOLOGIST LAWYER PROBATE RAFIA LOPEZ M.D. Performed By: #### C BC, CMP ####[place] [id number] [facility] GFR/1.73 sq M.predicted MDRD (S/P/Bld) [Vol rate/Area] mL/min/{1.73_m2} Normal [facility] Comment on above: Performed By: #### C BC, CMP ####[place] [id number] [facility] Globulin (S) [Mass/Vol] 2.8 g/dL Normal [facility] Comment on above: Performed By: #### C BC, CMP ####[place] [id number] [facility] Glucose [Mass/Vol] 87 mg/dL Normal 70-100 [facility] Comment on above: Result Comment: [facility] Glucose Reference Range is dependent on time and content of last meal. Glucose of more than 200 mg/dL in a nonstressed, ambulatory subject supports the diagnosis of Diabetes Mellitus. ADA recommended reference range Performed By: #### C BC, CMP ####[place] [id number] [facility] Potassium [Moles/Vol] 3.6 mmol/L Normal 3.5-5.1 [facility] Comment on above: Performed By: #### C BC, CMP ####[place] [id number] [facility] Protein [Mass/Vol] 7.0 g/dL Normal 6.4-8.9 [facility] Comment on above: Performed By: #### C BC, CMP ####[place] [id number] [facility] Sodium [Moles/Vol] 140 mmol/L Normal 136-145 [facility] Comment on above: Performed By: #### C BC, CMP ####[place] [id number] [facility] Urea nitrogen [Mass/Vol] 8 mg/dL Normal 7-25 [facility] Comment on above: Performed By: #### C BC, CMP ####[place] [id number] [facility] Creatinine [Mass/volume] in Serum or PlasmaOrdered By: Luis Goins on 08-01-2024 Creatinine [Mass/Vol] Creatinine [Mass/v olume] in Serum or Plasma 0.60-1.20 [facility] Dipstick and Microscopicon 0 08-01-2024 Appearance (U) Clear Normal Clear [facility] Comment on above: Order Comment: Name Collection Type:: Voided Performed By: #### C EPHEID NEG, ADDONUAPLUS, COVID19 FLU RSV ####[address] Bacteria,Urine 1+ High None Seen [facility] Comment on above: Order Comment: Name Collection Type:: Voided Performed By: #### C EPHEID NEG, ADDONUAPLUS, COVID19 FLU RSV ####[place] [id number] [facility] Bilirubin,Urine Negative Normal Negative [facility] Comment on above: Order Comment: Name Collection Type:: Voided Performed By: #### C EPHEID NEG, ADDONUAPLUS, COVID19 FLU RSV ####[address] [address] [facility] Color (U) Light-Yellow Normal Yellow [facility] Comment on above: Order Comment: Name Collection Type:: Voided Performed By: #### C EPHEID NEG, ADDONUAPLUS, COVID19 FLU RSV ####[place] [id number] [facility] Glucose Ql (U) Normal Normal Normal [facility] Comment on above: Order Comment: Name Collection Type:: Voided Performed By: #### C EPHEID NEG, ADDONUAPLUS, COVID19 FLU RSV ####[address] [address] [facility] Hyaline Casts,Urine None Normal 0-8 [facility] Comment on above: Order Comment: Name Collection Type:: Voided Performed By: #### C EPHEID NEG, ADDONUAPLUS, COVID19 FLU RSV ####[address] [address] [facility] Ketones Ql (U) Negative Normal Negative [facility] Comment on above: Order Comment: Name Collection Type:: Voided Performed By: #### C EPHEID NEG, ADDONUAPLUS, COVID19 FLU RSV ####[address] [address] [facility] Leukocyte esterase Test strip Ql (U) 3+ High Negative [facility] Comment on above: Order Comment: Name Collection Type:: Voided Performed By: #### C EPHEID NEG, ADDONUAPLUS, COVID19 FLU RSV ####[address] [address] [facility] Mucus,Urine 1+ Critically abnormal [facility] Comment on above: Order Comment: Name Collection Type:: Voided Result Comment: PERF ORMED BY: [place] [address] PATHOLOGIST LAWYER PROBATE RAFIA LOPEZ M.D. Performed By: #### C EPHEID NEG, ADDONUAPLUS, COVID19 FLU RSV ####[address] [address] [facility] Nitrite,Urine Negative Normal Negative [facility] Comment on above: Order Comment: Name Collection Type:: Voided Performed By: #### C EPHEID NEG, ADDONUAPLUS, COVID19 FLU RSV ####[address] [address] [facility] Occult Blood,Urine Negative Normal Negative [facility] Comment on above: Order Comment: Name Collection Type:: Voided Result Comment: PERF ORMED BY: [place] [address] PATHOLOGIST LAWYER PROBATE RAFIA LOPEZ M.D. Performed By: #### C EPHEID NEG, ADDONUAPLUS, COVID19 FLU RSV ####[place] [id number] [facility] pH (U) 6.0 [pH] Normal 5.0-9.0 [facility] Comment on above: Order Comment: Name Collection Type:: Voided Performed By: #### C EPHEID NEG, ADDONUAPLUS, COVID19 FLU RSV ####[address] [address] [facility] Protein,Urine Negative Normal Negative [facility] Comment on above: Order Comment: Name Collection Type:: Voided Performed By: #### C EPHEID NEG, ADDONUAPLUS, COVID19 FLU RSV ####[address] RBC,Urine 3-4 Normal 0-4 [facility] Comment on above: Order Comment: Name Collection Type:: Voided Performed By: #### C EPHEID NEG, ADDONUAPLUS, COVID19 FLU RSV ####[address] Specificy [place],Urine 1.012 Normal 1.001-1.03 0 [facility] Comment on above: Order Comment: Name Collection Type:: Voided Performed By: #### C EPHEID NEG, ADDONUAPLUS, COVID19 FLU RSV ####[address] [address] [facility] Squamous Epithelial Cell,Urine 10-19 High 0-2 [facility] Comment on above: Order Comment: Name Collection Type:: Voided Performed By: #### C EPHEID NEG, ADDONUAPLUS, COVID19 FLU RSV ####[address] [address] [facility] Urobilinogen,Urine Normal Normal Normal [facility] Comment on above: Order Comment: Name Collection Type:: Voided Performed By: #### C EPHEID NEG, ADDONUAPLUS, COVID19 FLU RSV ####[address] [address] [facility] WBC,Urine 1-2 Normal 0-4 [facility] Comment on above: Order Comment: Name Collection Type:: Voided Performed By: #### C EPHEID NEG, ADDONUAPLUS, COVID19 FLU RSV ####[facility] [id number] [place] [address] [facility] Eosinophils Auto (Bld) [#/Vo l]Ordered By: Luis Goins on 08-01-2024 Eosinophils (Bld) [#/Vol] Automated eosinophil count 0.0-0.45 [facility] Eosinophils/100 WBC Auto (Bl d)Ordered By: Luis Goins on 08-01-2024 Eosinophils/100 WBC (Bld) Automated eosinophil % . [facility] Epithelial cells.squamous [# /area] in Urine sediment by Automated countOrdered By: Luis Goins on 08-01-2024 Epithelial cells.squamous Auto (Urine sed) [#/Area] Epithelial cells.squamous [#/area] in Urine sediment by Automated count High 0-2 [facility] Erythrocyte distribution wid th Auto (RBC) [Ratio]Ordered By: Luis Goins on 08-01-2024 Erythrocyte distribution width (RBC) [Ratio] Erythrocyte distribution width [Ratio] by Automated count 11.9-15.3 [facility] Erythrocytes [#/area] in Uri ne sediment by Automated countOrdered By: Luis Goins on 08-01-2024 RBC Auto (Urine sed) [#/Area] Erythrocytes [#/area] in Urine sediment by Automated count 0-4 [facility] Globulin Calc (S) [Mass/Vol] Ordered By: Luis Goins on 08-01-2024 Globulin (S) [Mass/Vol] Serum globulin measurement by calculation (mass/volume) [facility] Glucose [Mass/volume] in Ser um or PlasmaOrdered By: Luis Goins on 08-01-2024 Glucose [Mass/Vol] Glucose [Mass/volume ] in Serum or Plasma 70-100 [facility] Comment on above: ADA recommended refe rence rangeRandom Glucose Reference Range is dependent on time and content of last meal. Glucose of more than 200 mg/dL in a nonstressed, ambulatory subject supports the diagnosis of Diabetes Mellitus. Glucose [Mass/volume] in Uri ne by Test stripOrdered By: Luis Goins on 08-01-2024 Glucose Test strip (U) [Mass/Vol] Glucose [Mass/volume] in Urine by Test strip Normal [facility] Hematocrit Auto (Bld) [Volum e fraction]Ordered By: Luis Goins on 08-01-2024 Hematocrit (Bld) [Volume fraction] Hematocrit [Volume Fraction] of Blood by Automated count 34.0-46.4 [facility] Hemoglobin Test strip Ql (U) Ordered By: Luis Goins on 08-01-2024 Hemoglobin Ql (U) Hemoglobin [Presence ] in Urine by Test strip Negative [facility] Hemoglobin [Mass/volume] in BloodOrdered By: Luis Goins on 08-01-2024 Hemoglobin (Bld) [Mass/Vol] Hemoglobin [Mass/volume] in Blood 11.8-15.4 [facility] Hyaline casts [#/area] in Ur ine sediment by Automated countOrdered By: Luis Goins on 08-01-2024 Hyaline casts Auto (Urine sed) [#/Area] Hyaline casts [#/area] in Urine sediment by Automated count 0-8 [facility] Ketones Test strip Ql (U)Ord ered By: Luis Goins on 08-01-2024 Ketones Ql (U) Ketones [Presence] i n Urine by Test strip Negative [facility] Leukocyte esterase [Presence ] in Urine by Test stripOrdered By: Luis Goins on 08-01-2024 Leukocyte esterase Test strip Ql (U) Leukocyte esterase [Presence] in Urine by Test strip High Negative [facility] Leukocytes [#/area] in Urine sediment by Automated countOrdered By: Luis Goins on 08-01-2024 WBC Auto (Urine sed) [#/Area] Leukocytes [#/area] in Urine sediment by Automated count 0-4 [facility] Leukocytes [#/volume] correc harman for nucleated erythrocytes in Blood by Automated counOrdered By: Luis Goins on 08-01-2024 WBC corrected for nucl RBC Auto (Bld) [#/Vol] Leukocytes [#/volume] corrected for nucleated erythrocytes in Blood by Automated coun Low 3.8-11.6 [facility] Lymphocytes Auto (Bld) [#/Vo l]Ordered By: Luis Goins on 08-01-2024 Lymphocytes (Bld) [#/Vol] Lymphocytes [#/volume] in Blood by Automated count 1.00-4.8 [facility] Lymphocytes/100 WBC Auto (Bl d)Ordered By: Luis Goins on 08-01-2024 Lymphocytes/100 WBC (Bld) Lymphocytes/100 leukocytes in Blood by Automated count . [facility] MCH Auto (RBC) [Entitic mass ]Ordered By: Luis Goins on 08-01-2024 MCH (RBC) [Entitic mass] MCH [Entitic mass] by Automated count 24.7-34.3 [facility] MCHC Auto (RBC) [Mass/Vol]Or dered By: Luis Goins on 08-01-2024 MCHC (RBC) [Mass/Vol] MCHC [Mass/volume] by Automated count 32.0-35.0 [facility] MCV Auto (RBC) [Entitic vol] Ordered By: Luis Goins on 08-01-2024 MCV (RBC) [Entitic vol] MCV [Entitic volume] by Automated count 80-100 [facility] Monocyte distribution width [Entitic volume] in Blood by AutomatedOrdered By: Luis Goins on 08-01-2024 Monocyte distribution width Auto (Bld) [Entitic vol] Monocyte distribution width [Entitic volume] in Blood by Automated High 0.00-20.00 [facility] Comment on above: For adults in ED, MD W > 20.0 may be associated with a higher risk of sepsis during the first 12 hrs of hospital admission Monocytes Auto (Bld) [#/Vol] Ordered By: Luis Goins on 08-01-2024 Monocytes (Bld) [#/Vol] Automated blood monocyte count 0.0-0.8 [facility] Monocytes/100 WBC Auto (Bld) Ordered By: Luis Goins on 08-01-2024 Monocytes/100 WBC (Bld) Automated monocyte % . [facility] Mucus [Presence] in Urine by AutomatedOrdered By: Luis Goins on 08-01-2024 Mucus Auto Ql (U) Mucus [Presence] in Urine by Automated Abnormal [facility] Neutrophils Auto (Bld) [#/Vo l]Ordered By: Luis Goins on 08-01-2024 Neutrophils (Bld) [#/Vol] Neutrophils [#/volume] in Blood by Automated count Low 1.8-7.7 [facility] Neutrophils/100 WBC Auto (Bl d)Ordered By: Luis Goins on 08-01-2024 Neutrophils/100 WBC (Bld) Automated neutrophil % . [facility] Nitrite Test strip Ql (U)Ord ered By: Luis Goins on 08-01-2024 Nitrite Ql (U) Nitrite [Presence] i n Urine by Test strip Negative [facility] No Panel InformationOrdered By: Luis Goins on 08-01-2024 Estimated GFR (CKD-EPI) > 60.0 mL/Min [facility] Creatinine Clearance (Chem 82.02 [facility] Nucleated erythrocytes [Pres ence] in Blood by Automated countOrdered By: Luis Goins on 08-01-2024 Nucleated RBC Auto Ql (Bld) Nucleated erythrocytes [Presence] in Blood by Automated count 0-0.5 [facility] Platelet mean volume Auto (B ld) [Entitic vol]Ordered By: Luis Goins on 08-01-2024 Platelet mean volume (Bld) [Entitic vol] Platelet mean volume [Entitic volume] in Blood by Automated count 6.3-10.7 [facility] Platelets Auto (Bld) [#/Vol] Ordered By: Luis Goins on 08-01-2024 Platelets (Bld) [#/Vol] Platelets [#/volume] in Blood by Automated count 150-450 [facility] Potassium [Moles/volume] in Serum or PlasmaOrdered By: Luis Goins on 08-01-2024 Potassium [Moles/Vol] Potassium [Moles/v olume] in Serum or Plasma 3.5-5.1 [facility] Protein Test strip (U) [Mass /Vol]Ordered By: Luis Goins on 08-01-2024 Protein (U) [Mass/Vol] Protein [Mass/vol ume] in Urine by Test strip Negative [facility] Protein [Mass/volume] in Ser um or PlasmaOrdered By: Luis Goins on 08-01-2024 Protein [Mass/Vol] Protein [Mass/volume ] in Serum or Plasma 6.4-8.9 [facility] RBC Auto (Bld) [#/Vol]Ordere d By: Luis Goins on 08-01-2024 RBC (Bld) [#/Vol] Erythrocytes [#/volu me] in Blood by Automated count 3.60-5.00 [facility] Respiratory specimen influen za A virus, influenza B virus, respiratory syncytical virOrdered By: Luis Goins on 08-01-2024 SARS-CoV-2 (COVID-19) RNA LISBETH+probe Ql (Unsp spec) Respiratory specimen influenza A virus, influenza B virus, respiratory syncytical vir [facility] Serum or plasma albumin/glob ulin mass ratioOrdered By: Luis Goins on 08-01-2024 Albumin/Globulin [Mass ratio] Serum or plasma albumin/globulin mass ratio [facility] Serum or plasma anion gap de terminationOrdered By: Lius Goins on 08-01-2024 Anion gap [Moles/Vol] Serum or plasma an ion gap determination 6.0-15.0 [facility] Sodium [Moles/volume] in Ser um or PlasmaOrdered By: Luis Goins on 08-01-2024 Sodium [Moles/Vol] Sodium [Moles/volume ] in Serum or Plasma 136-145 [facility] Specific gravity Test strip (U) [Rel density]Ordered By: Luis Goins on 08-01-2024 Specific gravity (U) [Rel density] Specific gravity of Urine by Test strip 1.001-1.03 0 [facility] Urea nitrogen [Mass/volume] in Serum or PlasmaOrdered By: Luis Goins on 08-01-2024 Urea nitrogen [Mass/Vol] Urea nitrogen [Mass/volume] in Serum or Plasma 7-25 [facility] Urobilinogen Test strip (U) [Mass/Vol]Ordered By: Luis Goins on 08-01-2024 Urobilinogen (U) [Mass/Vol] Urobilinogen [Mass/volume] in Urine by Test strip Normal [facility] WBC Auto (Bld) [#/Vol]Ordere d By: Luis Goins on 08-01-2024 WBC (Bld) [#/Vol] Leukocytes [#/volume ] in Blood by Automated count Low 3.8-11.6 [facility] X-ray reportOrdered By: Larry Heath on 08-01-2024 Study report [facility] [address] [address] XRay Report Signed Patient: Brittanie Garcia MR# : [id number] : 1985 Acct:[id number] Age/Sex: 39 / F ADM Date: 5 Loc: ER Room: Type: [facility] ER Attending Dr: Copies to: Luis Goins DO~ Ordering Provider: Luis Goins DO Date of Service: 08/01/24 XR/XR chest 2V*: Upper Respiratory Infection ([id number]) XR/XR lumbar spine 2-3V*: Upper Respiratory Infection [...] CHANGE. Impression dictated by: Prince Heath Jr., DLatishaOLatisha08/01/2024 9:17 AM Dictation Location: [place] [address] Transcribed By: [facility] 08/01/24916 Dictated By: Prince Heath Jr, DO 08/01/24915 Signed By: 08/01/24916 [facility] XR lumbar spine 2-3V*on 07-19 XR lumbar spine 2-3V* [facility] [address] [address] XRay Report Signed Patient: Brittanie Garcia MR#: [id number] : 1985 Acct:[id number] Age/Sex: 39 / F ADM Date: 08/01/24 Loc: ER Room: Type: [facility] ER Attending Dr: Copies to: Luis Goins DO Ordering Provider: Luis Goins DO Date of Service: 08/01/24 XR/XR chest 2V*: Upper Respiratory Infection ([id number]) XR/XR lumbar spine 2-3V*: Upper Respiratory Infection [...] CHANGE. Impression dictated by: Prince Heath Jr., JessaOLatisha08/01/2024 9:17 AM Dictation Location: [place] [address] Transcribed By: [facility] 08/01/24 0917 Dictated By: Prince Heath Jr, DO 08/01/24 0916 Signed By: 08/01/24 0917 Normal [facility] pH Test strip (U)Ordered By: Luis Goins on 08-01-2024 pH (U) pH of Urine by Test strip 5.0-9.0 [facility] CNOVon 07-30-2024 CNOV Office Visit ([facility] ) BRITTANIE GARCIA ([id number]) 1985 F Date Time Provider Department 07/30/24 4:30 PM HARMAN SULLIVAN [facility] During your visit today, we recorded the [...] brought in by patient? 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 10 units divided in 2 sites [id number] [...] Harman Sullivan MD Referring Provider: HARMAN SULLIVAN [[id number]] Allergies As of Date: 07/30/2024 Noted Allergy Reaction DHE 06/13/2012 12 - Shortness of Breath ADHESIVE 07/28/2022 2 - Rash 14 - Other: See Comments Comments: Rash and blisters CAFFEINE 06/13/2012 11 - Vomiting DROPERIDOL 07/30/2024 14 - Other: See Comments Comments: Severe restless leg flare up METOPROLOL 05/01/2023 7 - Swelling Date Reviewed: 07/30/2024 Reviewed by: Isabel Luther MA - Fully Assessed Reason for [...] for Encounter Date Provider Department Center 07/30/2024 [id number], TED [facility] Encounter Status:Closed by HARMAN SULLIVAN on 07/30/24 Normal [facility] Alanine aminotransferase [En zymatic activity/volume] in Serum or PlasmaOrdered By: Babar Singh on 06-19-2024 ALT [Catalytic activity/Vol] Alanine aminotransferase [Enzymatic activity/volume] in Serum or Plasma [facility] 7-52 [facility] Albumin [Mass/volume] in Ser um or Plasma by Bromocresol green (BCG) dye binding methoOrdered By: Babar Singh on 06-19-2024 Albumin BCG dye [Mass/Vol] Albumin [Mass/volume] in Serum or Plasma by Bromocresol green (BCG) dye binding metho 3.5-5.7 [facility] Alkaline phosphatase [Enzyma tic activity/volume] in Serum or PlasmaOrdered By: Babar Singh on 06-19-2024 ALP [Catalytic activity/Vol] Alkaline phosphatase [Enzymatic activity/volume] in Serum or Plasma 34-104 [facility] Appearance of UrineOrdered B y: PROVIDER TEMP on 06-19-2024 Appearance (U) Urine appearance Abnormal Clear [facility] Aspartate aminotransferase [ Enzymatic activity/volume] in Serum or PlasmaOrdered By: Babar Singh on 06-19-2024 AST [Catalytic activity/Vol] Aspartate aminotransferase [Enzymatic activity/volume] in Serum or Plasma High 13-39 [facility] Bacteria [Presence] in Urine by AutomatedOrdered By: PROVIDER TEM on 06-19-2024 Bacteria Auto Ql (U) Bacteria [Presence] in Urine by Automated None Seen [facility] Basophils Auto (Bld) [#/Vol] Ordered By: Babar Singh on 06-19-2024 Basophils (Bld) [#/Vol] Automated basophil count 0.0-0.[address] [facility] Basophils/100 WBC Auto (Bld) Ordered By: Babar Singh on 06-19-2024 Basophils/100 WBC (Bld) Automated basophil % . [facility] Bilirubin Test strip Ql (U)O rdered By: PROVIDER [facility] on 06-19-2024 Bilirubin Ql (U) Bilirubin.total [Pre sence] in Urine by Test strip Negative [facility] Bilirubin.total [Mass/volume ] in Serum or PlasmaOrdered By: Babar Singh on 06-19-2024 Bilirubin [Mass/Vol] Bilirubin.total [Mass/volume] in Serum or Plasma 0.3-1.0 [facility] Calcium [Mass/volume] in Ser um or PlasmaOrdered By: Babar Singh on 06-19-2024 Calcium [Mass/Vol] Calcium [Mass/volume ] in Serum or Plasma 8.6-10.3 [facility] Carbon dioxide, total [Moles /volume] in Serum or PlasmaOrdered By: Babar Singh on 06-19-2024 CO2 [Moles/Vol] Carbon dioxide, tota l [Moles/volume] in Serum or Plasma 21.0-31.0 [facility] Chloride [Moles/volume] in S leticia or PlasmaOrdered By: Babar Singh on 06-19-2024 Chloride [Moles/Vol] Chloride [Moles/vol ume] in Serum or Plasma 98-107 [facility] Color Auto (U)Ordered By: IGLESIA SINGH on 06-19-2024 Color (U) Color of Urine by Auto [facility] Complete Blood Count Auto Di ffon 06-19-2024 Basophils (Bld) [#/Vol] 0.0 10*3/uL Normal 0.0-0.2 [facility] Comment on above: Result Comment: PERF ORMED BY: [facility] [address] [place] [address] PATHOLOGIST LAWYER PROBATE RAFIA LOPEZ M.D. Performed By: #### C K, HS TROP, CBC, CMP ####[address] Basophils/100 WBC (Bld) 0.3 % Normal . [facility] Comment on above: Performed By: #### C K, HS TROP, CBC, CMP ####[address] Eosinophils (Bld) [#/Vol] 0.1 10*3/uL Normal 0.0-0.45 [facility] Comment on above: Performed By: #### C K, HS TROP, CBC, CMP ####[address] Eosinophils/100 WBC (Bld) 1.4 % Normal . [facility] Comment on above: Performed By: #### C K, HS TROP, CBC, CMP ####[address] Erythrocyte distribution width (RBC) [Ratio] 13.7 % Normal 11.9-15.3 [facility] Comment on above: Performed By: #### C K, HS TROP, CBC, CMP ####[address] Hematocrit (Bld) [Volume fraction] 41.7 % Normal 34.0-46.4 [facility] [facility] Comment on above: Performed By: #### C K, HS TROP, CBC, CMP ####[address] Hemoglobin (Bld) [Mass/Vol] 14.0 g/dL Normal 11.8-15.4 [facility] Comment on above: Performed By: #### C K, HS TROP, CBC, CMP ####[address] Lymphocytes (Bld) [#/Vol] 1.4 10*3/uL Normal 1.00-4.8 [facility] Comment on above: Performed By: #### C K, HS TROP, CBC, CMP ####[address] Lymphocytes/100 WBC (Bld) 15.4 % Normal . [facility] Comment on above: Performed By: #### C K, HS TROP, CBC, CMP ####[address] MCH (RBC) [Entitic mass] 29.2 pg Normal 24.7-34.3 [facility] Comment on above: Performed By: #### C K, HS TROP, CBC, CMP ####[address] MCV (RBC) [Entitic vol] 87.0 fL Normal 80-100 [facility] Comment on above: Performed By: #### C K, HS TROP, CBC, CMP ####[address] Mean Corpuscular HGB Conc 33.6 g/dL Normal 32.0-35.0 [facility] Comment on above: Performed By: #### C K, HS TROP, CBC, CMP ####[address] Monocytes (Bld) [#/Vol] 0.4 10*3/uL Normal 0.0-0.8 [facility] Comment on above: Performed By: #### C K, HS TROP, CBC, CMP ####[address] Monocytes/100 WBC (Bld) 19.28 % Normal 0.00-20.00 [facility] Comment on above: Performed By: #### C K, HS TROP, CBC, CMP ####[address] Monocytes/100 WBC (Bld) 4.5 % Normal . [facility] Comment on above: Performed By: #### C K, HS TROP, CBC, CMP ####[address] Neutrophils (Bld) [#/Vol] 7.3 10*3/uL Normal 1.8-7.7 [facility] Comment on above: Performed By: #### C K, HS TROP, CBC, CMP ####[address] Neutrophils/100 WBC (Bld) 78.4 % Normal . [facility] Comment on above: Performed By: #### C K, HS TROP, CBC, CMP ####[address] NRBC% 0.1 /100{WBC} Normal 0-0.5 [facility] Comment on above: Performed By: #### C K, HS TROP, CBC, CMP ####[address] Platelet mean volume (Bld) [Entitic vol] 7.9 fL Normal 6.3-10.7 [facility] Comment on above: Performed By: #### C K, HS TROP, CBC, CMP ####[address] Platelets (Bld) [#/Vol] 251 10*3/uL Normal 150-450 [facility] Comment on above: Performed By: #### C K, HS TROP, CBC, CMP ####[address] RBC (Bld) [#/Vol] 4.79 10*6/uL Normal 3.60-5.00 [facility] Comment on above: Performed By: #### C K, HS TROP, CBC, CMP ####[address] WBC (Bld) [#/Vol] 9.3 10*3/uL Normal 3.8-11.6 [facility] Comment on above: Performed By: #### C K, HS TROP, CBC, CMP ####[address] Comprehensive Metabolic Pane pedro 06-19-2024 Albumin [Mass/Vol] 4.4 g/dL Normal 3.5-5.7 [facility] Comment on above: Performed By: #### C K, HS TROP, CBC, CMP ####[address] Albumin/Globulin [Mass ratio] 1.5 {ratio} Normal [facility] Comment on above: Performed By: #### C K, HS TROP, CBC, CMP ####[address] ALP [Catalytic activity/Vol] 87 U/L Normal 34-104 [facility] Comment on above: Performed By: #### C K, HS TROP, CBC, CMP ####[address] ALT [Catalytic activity/Vol] 135 U/L High 7-52 [facility] Comment on above: Performed By: #### C K, HS TROP, CBC, CMP ####[address] Anion gap [Moles/Vol] 12.0 mmol/L Normal 6.0-15.0 [facility] Comment on above: Performed By: #### C K, HS TROP, CBC, CMP ####[address] [address] [place] AST [Catalytic activity/Vol] 80 U/L High 13-39 [facility] Comment on above: Performed By: #### C K, HS TROP, CBC, CMP ####[address] Bilirubin [Mass/Vol] 0.7 mg/dL Normal 0.3-1.0 [facility] Comment on above: Performed By: #### C K, HS TROP, CBC, CMP ####[address] Calcium [Mass/Vol] 9.2 mg/dL Normal 8.6-10.3 [facility] Comment on above: Performed By: #### C K, HS TROP, CBC, CMP ####[address] Chloride [Moles/Vol] 104 mmol/L Normal 98-107 [facility] Comment on above: Performed By: #### C K, HS TROP, CBC, CMP ####[address] CO2 [Moles/Vol] 24.9 mmol/L Normal 21.0-31.0 [facility] Comment on above: Performed By: #### C K, HS TROP, CBC, CMP ####[address] Creatinine [Mass/Vol] 0.87 mg/dL Normal 0.60-1.20 [facility] Comment on above: Performed By: #### C K, HS TROP, CBC, CMP ####[address] Creatinine Clr Calc Pharmacy 83.38 Normal [facility] Comment on above: Result Comment: PERF ORMED BY: [facility] [address] [place] [address] PATHOLOGIST LAW[employer]ER [employer] RAFIA LOPEZ M.D. Performed By: #### C K, HS TROP, CBC, CMP ####[address] GFR/1.73 sq M.predicted MDRD (S/P/Bld) [Vol rate/Area] mL/min/{1.73_m2} Normal [facility] Comment on above: Performed By: #### C K, HS TROP, CBC, CMP ####[address] Globulin (S) [Mass/Vol] 3.0 g/dL Normal [facility] Comment on above: Performed By: #### C K, HS TROP, CBC, CMP ####[address] Glucose [Mass/Vol] 90 mg/dL Normal 70-100 [facility] Comment on above: Result Comment: [place] Glucose Reference Range is dependent on time and content of last meal. Glucose of more than 200 mg/dL in a nonstressed, ambulatory subject supports the diagnosis of Diabetes Mellitus. ADA recommended reference range Performed By: #### C K, HS TROP, CBC, CMP ####[address] Potassium [Moles/Vol] 3.9 mmol/L Normal 3.5-5.1 [facility] Comment on above: Performed By: #### C K, HS TROP, CBC, CMP ####[address] Protein [Mass/Vol] 7.4 g/dL Normal 6.4-8.9 [facility] Comment on above: Performed By: #### C K, HS TROP, CBC, CMP ####[address] Sodium [Moles/Vol] 137 mmol/L Normal 136-145 [facility] Comment on above: Performed By: #### C K, HS TROP, CBC, CMP ####[address] Urea nitrogen [Mass/Vol] 14 mg/dL Normal 7-25 [facility] Comment on above: Performed By: #### C K, HS TROP, CBC, CMP ####[address] [place] [address] [facility] Creatine Kinaseon 06-19-2024 CK [Catalytic activity/Vol] 51 U/L Normal [facility] Comment on above: Performed By: #### C K, HS TROP, CBC, CMP ####[address] [address] [facility] Creatine kinase [Enzymatic a ctivity/volume] in Serum or PlasmaOrdered By: Babar Singh on 06-19-2024 CK [Catalytic activity/Vol] Creatine kinase [Enzymatic activity/volume] in Serum or Plasma [facility] Creatinine [Mass/volume] in Serum or PlasmaOrdered By: Babar Singh on 06-19-2024 Creatinine [Mass/Vol] Creatinine [Mass/v olume] in Serum or Plasma 0.60-1.20 [facility] Dipstick and Microscopicon 0 06-19-2024 Appearance (U) Cloudy Critically abnormal Clear [facility] Comment on above: Order Comment: Name Collection Type:: Clean-Voided Midstream Performed By: #### A DDONUAPLUS ####[address] [address] [facility] Bacteria,Urine Rare Normal None Seen [facility] Comment on above: Order Comment: Name Collection Type:: Clean-Voided Midstream Performed By: #### A DDONUAPLUS ####[address] [address] [facility] Bilirubin,Urine Negative Normal Negative [facility] Comment on above: Order Comment: Name Collection Type:: Clean-Voided Midstream Performed By: #### A DDONUAPLUS ####[address] [address] [facility] Color (U) Yellow Normal Yellow [facility] Comment on above: Order Comment: Name Collection Type:: Clean-Voided Midstream Performed By: #### A DDONUAPLUS ####[address] [address] [facility] Glucose Ql (U) Normal Normal Normal [facility] Comment on above: Order Comment: Name Collection Type:: Clean-Voided Midstream Performed By: #### A DDONUAPLUS ####[address] [address] [place] Hyaline Casts,Urine None Normal 0-8 [facility] Comment on above: Order Comment: Name Collection Type:: Clean-Voided Midstream Performed By: #### A DDONUAPLUS ####[address] [address] [facility] Ketones Ql (U) 1+ High Negative [facility] Comment on above: Order Comment: Name Collection Type:: Clean-Voided Midstream Performed By: #### A DDONUAPLUS ####[address] [address] [facility] Leukocyte esterase Test strip Ql (U) 3+ High Negative [facility] Comment on above: Order Comment: Name Collection Type:: Clean-Voided Midstream Performed By: #### A DDONUAPLUS ####[address] [address] [place] Mucus,Urine 2+ Critically abnormal [facility] Comment on above: Order Comment: Name Collection Type:: Clean-Voided Midstream Result Comment: PERF ORMED BY: [facility] [address] [place] [address] PATHOLOGIST LAWYER [employer]OB[employer] RAFIA LOPEZ M.D. Performed By: #### A DDONUAPLUS ####[address] [address] [place] Nitrite,Urine Negative Normal Negative [facility] Comment on above: Order Comment: Name Collection Type:: Clean-Voided Midstream Performed By: #### A DDONUAPLUS ####[address] [address] [place] Occult Blood,Urine Negative Normal Negative [facility] Comment on above: Order Comment: Name Collection Type:: Clean-Voided Midstream Result Comment: PERF ORMED BY: [facility] [address] [place] [address] PATHOLOGIST LAWYER [employer]OB[employer] RAFIA LOPEZ M.D. Performed By: #### A DDONUAPLUS ####[address] pH (U) 5.5 [pH] Normal 5.0-9.0 [facility] Comment on above: Order Comment: Name Collection Type:: Clean-Voided Midstream Performed By: #### A DDONUAPLUS ####[address] Protein,Urine Trace High Negative [facility] Comment on above: Order Comment: Name Collection Type:: Clean-Voided Midstream Performed By: #### A DDONUAPLUS ####[address] RBC,Urine 5 [HPF] High 0-4 [facility] Comment on above: Order Comment: Name Collection Type:: Clean-Voided Midstream Performed By: #### A DDONUAPLUS ####[address] Specificy [place],Urine 1.023 Normal 1.001-1.03 0 [facility] Comment on above: Order Comment: Name Collection Type:: Clean-Voided Midstream Performed By: #### A DDONUAPLUS ####[address] Squamous Epithelial Cell,Urine 10 [HPF] High 0-2 [facility] Comment on above: Order Comment: Name Collection Type:: Clean-Voided Midstream Performed By: #### A DDONUAPLUS ####[address] Urobilinogen,Urine Normal Normal Normal [facility] Comment on above: Order Comment: Name Collection Type:: Clean-Voided Midstream Performed By: #### A DDONUAPLUS ####[address] WBC,Urine 3 [HPF] Normal 0-4 [facility] Comment on above: Order Comment: Name Collection Type:: Clean-Voided Midstream Performed By: #### A DDONUAPLUS ####[place] [address] [facility] ECG 12 lead ECGon 06-19-2024 ECG 12 lead ECG [facility] [address] [place] [address] [place] [address] Electrocardiograph Report Signed Patient: Brittanie Garcia MR#: [id number] : 1985 Acct:[id number] Age/Sex: 39 / F ADM Date: 06/19/24 Loc: ER Room: Type: [facility] ER Attending Dr: Ordering Provider: Babar Singh [...] was found Confirmed by LIAM RANDLE DO ([id number]) on 06/19/2024 7:59:22 PM Referred By: Electronically Signed By: LIAM RANDLE DO Transcribed By: MUS Signed By Liam Randle DO 06/19 Normal [facility] Eosinophils Auto (Bld) [#/Vo l]Ordered By: Babar Singh on 06-19-2024 Eosinophils (Bld) [#/Vol] Automated eosinophil count 0.0-0.45 [facility] Eosinophils/100 WBC Auto (Bl d)Ordered By: Babar Singh on 06-19-2024 Eosinophils/100 WBC (Bld) Automated eosinophil % . [facility] Epithelial cells.squamous [# /area] in Urine sediment by Automated countOrdered By: NOLVIA SINGH on 06-19-2024 Epithelial cells.squamous Auto (Urine sed) [#/Area] Epithelial cells.squamous [#/area] in Urine sediment by Automated count High 0-2 [facility] Erythrocyte distribution wid th Auto (RBC) [Ratio]Ordered By: Babar Singh on 06-19-2024 Erythrocyte distribution width (RBC) [Ratio] Erythrocyte distribution width [Ratio] by Automated count 11.9-15.3 [facility] Erythrocytes [#/area] in Uri ne sediment by Automated countOrdered By: PROVIDER TEMP on 06-19-2024 RBC Auto (Urine sed) [#/Area] Erythrocytes [#/area] in Urine sediment by Automated count High 0-4 [facility] Globulin Calc (S) [Mass/Vol] Ordered By: Babar Singh on 06-19-2024 Globulin (S) [Mass/Vol] Serum globulin measurement by calculation (mass/volume) [facility] Glucose Glucometer (BldC) [M ass/Vol]Ordered By: PROVIDER TEMP on 06-19-2024 Glucose [Mass/Vol] Capillary blood gluc ose measurement by glucometer (mass/volume) [facility] Comment on above: Random Glucose Refer ence Range is dependent on time and content of last meal. Glucose of more than 200 mg/dL in a nonstressed, ambulatory subject supports the diagnosis of Diabetes Mellitus. Glucose Poct Glucometerson 0 06-19-2024 Commemt1 Normal [facility] Comment on above: Result Comment: Glu2 : WILL NOTIFY DR/RN Performed By: #### G LULS #### Point of Care testing , Commemt2 Cleaned Meter Normal [facility] Comment on above: Result Comment: PERF ORMED BY: [facility] [address] [place] [address] PATHOLOGIST LAWYER [employer]OB[employer] RAFIA LOPEZ M.D. Performed By: #### G LULS #### Point of Care testing , Glucose [Mass/Vol] 120 mg/dL Normal [facility] Comment on above: Result Comment: [place] om Glucose Reference Range is dependent on time and content of last meal. Glucose of more than 200 mg/dL in a nonstressed, ambulatory subject supports the diagnosis of Diabetes Mellitus. Performed By: #### G LULS #### Point of Care testing , Glucose [Mass/volume] in Ser um or PlasmaOrdered By: Babar Singh on 06-19-2024 Glucose [Mass/Vol] Glucose [Mass/volume ] in Serum or Plasma 70-100 [facility] Comment on above: ADA recommended refe rence rangeRandom Glucose Reference Range is dependent on time and content of last meal. Glucose of more than 200 mg/dL in a nonstressed, ambulatory subject supports the diagnosis of Diabetes Mellitus. Glucose [Mass/volume] in Uri ne by Test stripOrdered By: PROVIDER SAMANTHA on 06-19-2024 Glucose Test strip (U) [Mass/Vol] Glucose [Mass/volume] in Urine by Test strip Normal [facility] Hematocrit Auto (Bld) [Volum e fraction]Ordered By: Babar Singh on 06-19-2024 Hematocrit (Bld) [Volume fraction] Hematocrit [Volume Fraction] of Blood by Automated count 34.0-46.4 [facility] Hemoglobin Test strip Ql (U) Ordered By: NOLVIA SINGH on 06-19-2024 Hemoglobin Ql (U) Hemoglobin [Presence ] in Urine by Test strip Negative [facility] Hemoglobin [Mass/volume] in BloodOrdered By: Babar Singh on 06-19-2024 Hemoglobin (Bld) [Mass/Vol] Hemoglobin [Mass/volume] in Blood 11.8-15.4 [facility] Hyaline casts [#/area] in Ur ine sediment by Automated countOrdered By: NOLVIA SINGH on 06-19-2024 Hyaline casts Auto (Urine sed) [#/Area] Hyaline casts [#/area] in Urine sediment by Automated count 0-8 [facility] Ketones Test strip Ql (U)Ord ered By: NOLVIA SINGH on 06-19-2024 Ketones Ql (U) Ketones [Presence] i n Urine by Test strip High Negative [facility] Leukocyte esterase [Presence ] in Urine by Test stripOrdered By: PROVIDER SAMANTHA on 06-19-2024 Leukocyte esterase Test strip Ql (U) Leukocyte esterase [Presence] in Urine by Test strip High Negative [facility] Leukocytes [#/area] in Urine sediment by Automated countOrdered By: NOLVIA SINGH on 06-19-2024 WBC Auto (Urine sed) [#/Area] Leukocytes [#/area] in Urine sediment by Automated count 0-4 [facility] Leukocytes [#/volume] correc harman for nucleated erythrocytes in Blood by Automated counOrdered By: Babar Singh on 06-19-2024 WBC corrected for nucl RBC Auto (Bld) [#/Vol] Leukocytes [#/volume] corrected for nucleated erythrocytes in Blood by Automated coun 3.8-11.6 [facility] Lymphocytes Auto (Bld) [#/Vo l]Ordered By: Babar Singh on 06-19-2024 Lymphocytes (Bld) [#/Vol] Lymphocytes [#/volume] in Blood by Automated count 1.00-4.8 [facility] Lymphocytes/100 WBC Auto (Bl d)Ordered By: Babar Singh on 06-19-2024 Lymphocytes/100 WBC (Bld) Lymphocytes/100 leukocytes in Blood by Automated count . [facility] MCH Auto (RBC) [Entitic mass ]Ordered By: Babar Singh on 06-19-2024 MCH (RBC) [Entitic mass] MCH [Entitic mass] by Automated count 24.7-34.3 [facility] MCHC Auto (RBC) [Mass/Vol]Or dered By: Babar Singh on 06-19-2024 MCHC (RBC) [Mass/Vol] MCHC [Mass/volume] by Automated count 32.0-35.0 [facility] MCV Auto (RBC) [Entitic vol] Ordered By: Babar Singh on 06-19-2024 MCV (RBC) [Entitic vol] MCV [Entitic volume] by Automated count 80-100 [facility] Monocyte distribution width [Entitic volume] in Blood by AutomatedOrdered By: Babar Singh on 06-19-2024 Monocyte distribution width Auto (Bld) [Entitic vol] Monocyte distribution width [Entitic volume] in Blood by Automated 0.00-20.00 [facility] Monocytes Auto (Bld) [#/Vol] Ordered By: Babar Singh on 06-19-2024 Monocytes (Bld) [#/Vol] Automated blood monocyte count 0.0-0.8 [facility] Monocytes/100 WBC Auto (Bld) Ordered By: Babar Singh on 06-19-2024 Monocytes/100 WBC (Bld) Automated monocyte % . [facility] Mucus [Presence] in Urine by AutomatedOrdered By: NOLVIA SINGH on 06-19-2024 Mucus Auto Ql (U) Mucus [Presence] in Urine by Automated Abnormal [facility] Neutrophils Auto (Bld) [#/Vo l]Ordered By: Babar Singh on 06-19-2024 Neutrophils (Bld) [#/Vol] Neutrophils [#/volume] in Blood by Automated count 1.8-7.7 [facility] Neutrophils/100 WBC Auto (Bl d)Ordered By: Babar Singh on 06-19-2024 Neutrophils/100 WBC (Bld) Automated neutrophil % . [facility] Nitrite Test strip Ql (U)Ord ered By: PROVIDER TEMP on 06-19-2024 Nitrite Ql (U) Nitrite [Presence] i n Urine by Test strip Negative [facility] No Panel InformationOrdered By: Babar Singh on 06-19-2024 Estimated GFR (CKD-EPI) > 60.0 mL/Min [facility] Creatinine Clearance (Chem 83.38 [facility] No Panel InformationOrdered By: PROVIDER TEMP on 06-19-2024 Bedside Glucose #2 Comment Cleaned meter [facility] Bedside Glucose Comment See comment [facility] Comment on above: Glu2: WILL NOTIFY DR /RN Nucleated erythrocytes [Pres ence] in Blood by Automated countOrdered By: Babar Singh on 06-19-2024 Nucleated RBC Auto Ql (Bld) Nucleated erythrocytes [Presence] in Blood by Automated count 0-0.5 [facility] Platelet mean volume Auto (B ld) [Entitic vol]Ordered By: Babar Singh on 06-19-2024 Platelet mean volume (Bld) [Entitic vol] Platelet mean volume [Entitic volume] in Blood by Automated count 6.3-10.7 [facility] Platelets Auto (Bld) [#/Vol] Ordered By: Babar Singh on 06-19-2024 Platelets (Bld) [#/Vol] Platelets [#/volume] in Blood by Automated count 150-450 [facility] Potassium [Moles/volume] in Serum or PlasmaOrdered By: Babar Singh on 06-19-2024 Potassium [Moles/Vol] Potassium [Moles/v olume] in Serum or Plasma 3.5-5.1 [facility] Protein Test strip (U) [Mass /Vol]Ordered By: PROVIDER TEMP on 06-19-2024 Protein (U) [Mass/Vol] Protein [Mass/vol ume] in Urine by Test strip High Negative [facility] Protein [Mass/volume] in Ser um or PlasmaOrdered By: Babar Singh on 06-19-2024 Protein [Mass/Vol] Protein [Mass/volume ] in Serum or Plasma 6.4-8.9 [facility] RBC Auto (Bld) [#/Vol]Ordere d By: Babar Singh on 06-19-2024 RBC (Bld) [#/Vol] Erythrocytes [#/volu me] in Blood by Automated count 3.60-5.00 [facility] Serum or plasma albumin/glob ulin mass ratioOrdered By: Babar Singh on 06-19-2024 Albumin/Globulin [Mass ratio] Serum or plasma albumin/globulin mass ratio [facility] Serum or plasma anion gap de terminationOrdered By: Babar Singh on 06-19-2024 Anion gap [Moles/Vol] Serum or plasma an ion gap determination 6.0-15.0 [facility] Sodium [Moles/volume] in Ser um or PlasmaOrdered By: Babar Singh on 06-19-2024 Sodium [Moles/Vol] Sodium [Moles/volume ] in Serum or Plasma 136-145 [facility] Specific gravity Test strip (U) [Rel density]Ordered By: NOLVIA SINGH on 06-19-2024 Specific gravity (U) [Rel density] Specific gravity of Urine by Test strip 1.001-1.03 0 [facility] Troponin I High Sensitivityo n 06-19-2024 Troponin I High Sensitivity <3 Normal 0-15 [facility] Comment on above: Result Comment: The Troponin units of report have been changed to meet the Chest Pain Accreditation requirement, element EC5.M1l2. Troponin units are changed from pg/ml to ng/L. Also, the decimal is removed and results are in whole numbers. PERFORMED BY: [facility] [address] [place] [address] PATHOLOGIST LAWYER [employer]OBATE RAFIA LOPEZ M.D. Performed By: #### C K, HS TROP, CBC, CMP ####[facility] [id number] [place] [address] [facility] Troponin I.cardiac [Mass/vol ume] in Serum or Plasma by Detection limit <= 0.01 ng/Ordered By: Babar Singh on 06-19-2024 Troponin I.cardiac DL <= 0.01 ng/mL [Mass/Vol] Troponin I.cardiac [Mass/volume] in Serum or Plasma by Detection limit <= 0.01 ng/ 0-15 [facility] Comment on above: The Troponin units o f report have been changed to meet the Chest Pain Accreditation requirement, element EC5.M1l2. Troponin units are changed from pg/ml to ng/L. Also, the decimal is removed and results are in whole numbers. Urea nitrogen [Mass/volume] in Serum or PlasmaOrdered By: Babar Singh on 06-19-2024 Urea nitrogen [Mass/Vol] Urea nitrogen [Mass/volume] in Serum or Plasma 7- [facility] Urobilinogen Test strip (U) [Mass/Vol]Ordered By: NOLVIA SINGH on 06-19-2024 Urobilinogen (U) [Mass/Vol] Urobilinogen [Mass/volume] in Urine by Test strip Normal [facility] WBC Auto (Bld) [#/Vol]Ordere d By: Babar Singh on 06-19-2024 WBC (Bld) [#/Vol] Leukocytes [#/volume ] in Blood by Automated count 3.8-11.6 [facility] pH Test strip (U)Ordered By: NOLVIA SINGH on 06-19-2024 pH (U) pH of Urine by Test strip 5.0-9.0 [facility] Pedro 06-17-2024 L ------- Specimen: [id number] Received: 06/17/24 Status: MG [place] Num: [id number] Spec Type: Surgical Subm Dr: Dano Pyle, DO Tissues: A Breast Lumpectmy/Mass - Requiring Micros Eval of Margins (RT BREAST MASS @ 1 B Breast Lumpectmy/Mass - Requiring Micros Eval of Margins (RT BREAST MASS @ 7 Procedures: , Gross/Micro L5/2 Age/ Patient Sex Location Account Attending Physician Brittanie Garcia 39/F [place] [id number] Dano Pyle DO SPEC NUM: [id number] RECD: 06/17/24 STATUS: MG CLEMENTE NUM: [id number] TACOS: 06/17/[address] [facility] [address]: Dano Pyle DO ENTERED: 06/17/24 [facility] : MIKE TYPE: Surgical DEPT: S ENTERED BY: [id number] RECV BY: [id number] ORDERED: , Gross/Micro L5/2 ORDERED: , Gross/Micro [...] [id number] Received: 06/17/24 Status: MG Clemente Num: [id number] Spec Type: Surgical Subm Dr: Dano Pyle, DO Tissues: A Breast Lumpectmy/Mass - Requiring Micros Eval of Margins (RT BREAST MASS @ 1 B Breast Lumpectmy/Mass - Requiring Micros Eval of Margins (RT BREAST MASS @ 7 Procedures: /, Gross/Micro L5/2 Patient: Brittanie Garcia Zoe [id number] (Continued) Specimen: [id number] Received: 06/17/24 (Continued) Signed (signature on file) Dany Fonseca MD 06/18/24 1427 Specimen: [id number] Received: 06/17/24 Status: MG Clemente Num: [id number] Spec Type: Surgical Subm Dr: Dano Pyle DO Tissues: A Breast Lumpectmy/Mass - Requiring Micros Eval of Margins (RT BREAST MASS @ 1 B Breast Lumpectmy/Mass - Requiring Micros Eval of Margins (RT BREAST MASS @ 7 Procedures: ANURADHA, Michael/Micro L5/2 Patient: GarciaBrittanie chambers [id number] (Continued) Specimen: [id number] Received: 06/17/24 (Continued) Clinical [...] Total fixation time: 8 hours (8, ns, S29-534 A)J Part B is received in formalin labeled with the patients name, date of , and mass at (more content not included)... Normal [facility] CNOVon 01-30-2024 CNOV Office Visit ([facility] ) BRITTANIE GARCIA ([id number]) 1985 F Date Time Provider Department 01/30/24 2:00 PM HARMAN SULLIVAN [facility] During your visit today, we recorded the [...] brought in by patient? No Lot #: [id number] Exp: 03/2026 Dilution: 5 units/0.1 ml (100 [...] Optional follow pain # units L R Coordinate Measuring Machine Programmer 10 units divided in 2 sites [id number] [...] Harman Sullivan MD Referring Provider: HARMAN SULLIVAN [[id number]] Allergies As of Date: 01/30/2024 Noted Allergy Reaction DHE 06/13/2012 12 - Shortness of Breath ADHESIVE 07/28/2022 2 - Rash 14 - Other: See Comments Comments: Rash and blisters CAFFEINE 06/13/2012 11 - Vomiting METOPROLOL 05/01/2023 7 - Swelling Date Reviewed: 01/30/2024 Reviewed by: Isabel Luther MA - Fully Assessed Reason for [...] for Encounter Date Provider Department Center 01/30/2024 [id number], TED [facility] Encounter Status:Closed by HARMAN SULLIVAN on 01/30/24 Normal [facility] US breast RT limited 01-27 US breast RT limited [facility] [place] [address] Ultrasound Report Signed Patient: Brittanie Garcia MR#: [id number] : 1985 Acct:[id number] Age/Sex: 39 / F ADM Date: 01/28/24 Loc: [facility] Room: Type[facility] Attending Dr: Dano Pyle DO Ordering [...] Binta Elaine M.D.01/28/2024 8:30 AM Dictation Location: [facility] Tech: Alayna Choudhary Transcribed By: JADEN 01/28/24829 Dictated By: Binta Elaine MD 01/28/24811 Signed By: 01/28/24829 Normal [facility] Calcium [Mass/volume] in Ser um or PlasmaOrdered By: Dano Pyle on 05-01-2023 Calcium [Mass/Vol] 9.7 mg/dL 8.6-10.3 [facility] Carbon dioxide, total [Moles /volume] in Serum or PlasmaOrdered By: Dano Pyle on 05-01-2023 CO2 [Moles/Vol] 28.9 mmol/L 21.0-31.[address] [facility] Chloride [Moles/volume] in S leticia or PlasmaOrdered By: Dano Pyle on 05-01-2023 Chloride [Moles/Vol] 105 mmol/L 98-107 [facility] Creatinine [Mass/volume] in Serum or PlasmaOrdered By: Dano Pyle on 05-01-2023 Creatinine [Mass/Vol] 0.75 mg/dL 0.60-1.20 [facility] Glucose [Mass/volume] in Ser um or PlasmaOrdered By: Dano Pyle on 05-01-2023 Glucose [Mass/Vol] 84 mg/dL 70-100 [facility] Comment on above: ADA recommended refe rence rangeRandom Glucose Reference Range is dependent on time and content of last meal. Glucose of more than 200 mg/dL in a nonstressed, ambulatory subject supports the diagnosis of Diabetes Mellitus. No Panel InformationOrdered By: Dano Pyle on 05-01-2023 Estimated GFR (CKD-EPI) > 60.0 mL/Min [facility] Creatinine Clearance (Chem N/A [facility] Potassium [Moles/volume] in Serum or PlasmaOrdered By: Dano Pyle on 05-01-2023 Potassium [Moles/Vol] 4.3 mmol/L 3.5-5.1 [facility] Serum or plasma anion gap de terminationOrdered By: Dano Pyle on 05-01-2023 Anion gap [Moles/Vol] 9.4 mmol/L 6.0-15.0 [facility] Sodium [Moles/volume] in Ser um or PlasmaOrdered By: Dano Pyle on 05-01-2023 Sodium [Moles/Vol] 139 mmol/L 136-145 [facility] Urea nitrogen [Mass/volume] in Serum or PlasmaOrdered By: Dano Pyle on 05-01-2023 Urea nitrogen [Mass/Vol] 14 mg/dL 7-25 [facility] Basophils Auto (Bld) [#/Vol] Ordered By: Robert Menchaca on 02-07-2023 Basophils (Bld) [#/Vol] 0.0 10*3/uL 0.0-0.2 [facility] Basophils/100 WBC Auto (Bld) Ordered By: Robert Menchaca on 02-07-2023 Basophils/100 WBC (Bld) 0.4 % . [facility] Eosinophils Auto (Bld) [#/Vo l]Ordered By: Robert Menchaca on 02-07-2023 Eosinophils (Bld) [#/Vol] 0.1 10*3/uL 0.0-0.45 [facility] Eosinophils/100 WBC Auto (Bl d)Ordered By: Robert Menchaca on 02-07-2023 Eosinophils/100 WBC (Bld) 1.2 % . [facility] Erythrocyte distribution wid th Auto (RBC) [Ratio]Ordered By: Robert Menchaca on 02-07-2023 Erythrocyte distribution width (RBC) [Ratio] 13.4 % 11.9-15.3 [facility] Ferritin [Mass/volume] in Se rum or PlasmaOrdered By: Robert Menchaca on 02-07-2023 Ferritin [Mass/Vol] 110.5 ng/mL 11.0-306.8 [facility] Hematocrit Auto (Bld) [Volum e fraction]Ordered By: Robert Menchaca on 02-07-2023 Hematocrit (Bld) [Volume fraction] 42.6 % 34.0-46.4 [facility] Hemoglobin [Mass/volume] in BloodOrdered By: Robert Menchaca on 02-07-2023 Hemoglobin (Bld) [Mass/Vol] 14.2 g/dL 11.8-15.4 [facility] Leukocytes [#/volume] correc harman for nucleated erythrocytes in Blood by Automated counOrdered By: Robert Menchaca on 02-07-2023 WBC corrected for nucl RBC Auto (Bld) [#/Vol] 7.0 10*3/uL 3.8-11.6 [facility] Lymphocytes Auto (Bld) [#/Vo l]Ordered By: Robert Menchaca on 02-07-2023 Lymphocytes (Bld) [#/Vol] 2.5 10*3/uL 1.00-4.8 [facility] Lymphocytes/100 WBC Auto (Bl d)Ordered By: Robert Menchaca on 02-07-2023 Lymphocytes/100 WBC (Bld) 35.4 % . [facility] MCH Auto (RBC) [Entitic mass ]Ordered By: Robert Menchaca on 02-07-2023 MCH (RBC) [Entitic mass] 28.7 pg 24.7-34.3 [facility] MCHC Auto (RBC) [Mass/Vol]Or dered By: Robert Menchaca on 02-07-2023 MCHC (RBC) [Mass/Vol] 33.3 g/dL 32.0-35.0 [facility] MCV Auto (RBC) [Entitic vol] Ordered By: Robert Menchaca on 02-07-2023 MCV (RBC) [Entitic vol] 86.2 fL 80-100 [facility] Monocytes Auto (Bld) [#/Vol] Ordered By: Robert Menchaca on 02-07-2023 Monocytes (Bld) [#/Vol] 0.5 10*3/uL 0.0-0.8 [facility] Monocytes/100 WBC Auto (Bld) Ordered By: Robert Menchaca on 02-07-2023 Monocytes/100 WBC (Bld) 6.5 % . [facility] Neutrophils Auto (Bld) [#/Vo l]Ordered By: Robert Menchaca on 02-07-2023 Neutrophils (Bld) [#/Vol] 4.0 10*3/uL 1.8-7.7 [facility] Neutrophils/100 WBC Auto (Bl d)Ordered By: Robert Menchaca on 02-07-2023 Neutrophils/100 WBC (Bld) 56.5 % . [facility] Nucleated erythrocytes [Pres ence] in Blood by Automated countOrdered By: Robert Menchaca on 02-07-2023 Nucleated RBC Auto Ql (Bld) 0.1 /100{WBC} 0-0.5 [facility] Platelet mean volume Auto (B ld) [Entitic vol]Ordered By: Robert Menchaca on 02-07-2023 Platelet mean volume (Bld) [Entitic vol] 8.3 fL 6.3-10.7 [facility] Platelets Auto (Bld) [#/Vol] Ordered By: Robert Menchaca on 02-07-2023 Platelets (Bld) [#/Vol] 223 10*3/uL 150-450 [facility] RBC Auto (Bld) [#/Vol]Ordere d By: Robert Menchaca on 02-07-2023 RBC (Bld) [#/Vol] 4.94 10*6/uL 3.60-5.00 [facility] WBC Auto (Bld) [#/Vol]Ordere d By: Robert Menchaca on 02-07-2023 WBC (Bld) [#/Vol] 7.0 10*3/uL 3.8-11.6 [facility] Echocardiogramon 12-28-2022 Echocardiography [facility] dusky [address] [place] [address], [address], [place] [address] TRANSTHORACIC ECHOCARDIOGRAM REPORT Patient Name: BRITTANIE Aguliar Blaire Physician: [id number] Saeed GARCIA MD Study Date: 12/28/2022 Referring SORAYAChan CAGE Physician: MRN/PID: [id number] PCP: Filiberto Ying Accession/Order#: [id number] Department [facility] Location: [place] Date of : 1985 Fellow: Gender: F Nurse: Admit Date: Head Mechanic: Lanny Padron RDCS, RVT Height: 157.48 cm CC Report to: Weight: 74.84 kg Study Type: Echocardiogram BSA: 1.76 m2 Blood Pressure: 106 /70 mmHg Diagnosis/ICD: R00.0-Tachycardia, unspecified; K74-Txloupx Indication: Hyperlipidemia, Overweight Procedure/CPT: Echo Complete w Full Doppler-84211 Study Detail: The following Echo studies were [...] 0.8 m/s (0.6-0.9m/s) PV Max P.4 mmHg [id number] Saeed Parada MD Electronically signed on 01/01/2023 at 2:35:16 PM Final Normal [facility] Office Visit (Cardiology)on 11-14-2022 Follow-up [...] the time of your visit. Corina Jordan REELING MACHINE OPERATOR, am scribing for and in the presence of Dr. Soraya Cage, FACC, FACP, RS The provider reviewed the following test(s) and result(s) with the patient: ECG, Holter monitor and Tilt table Chief Complaint Patient presented to [facility]. Adult Risk Screening Initial Fall Risk [...] Normal axis. Corrected QT interval 420 ms. MN interval 150 ms See signed ECG and check /Paceart. Imp / Plan Recurrent syncope, consistent with vasovagal etiology. Discussed mechanisms of syncope. Reviewed syncope brochure. Reviewed testing event monitor and tilt table te (more content not included)... Normal [place] Office Visit (Cardiology)on 11-10-2022 Follow-up visit Diagnoses/Problems [...] Signs Recorded: 10Nov2022 09:01AMRecorded: 10Nov2022 08:58AM Systolic Lvvnumh47, LUE, Sitting Diastolic Rytpedw06, LUE, Sitting Systolic Wujnruws352, LUE, Standing Diastolic Blctjerj56, LUE, Standing Heart Rate92, L Radial Uwjnfzdo51, LUE, Sitting Bqzalfcir85, LUE, Sitting Height5 ft 2 in Kwrijt523 lb BMI Vntomdwiyz26.63 kg/m2 BSA Calculated1.75 Tobacco Useb) No Falls [...] (Author) Normal [facility] No Panel Informationon 10-23 [facility] Heart-Sandu ilan 250 DO Work Phone: Cardiovasc Arrhythmia Result son 09-29-2022 Cardiovasc Arrhythmia Results Reason For Visit Event Monitor: BRITTANIE is here for the application of a 30 day event monitor in office., Diagnosis: Syncope,Fainting Ordering Physician: Dr. Saeed Castellanos DO Enrollment sent to: [employer] Monitor number [id number] applied. Holter monitor printed and placed on [...] Nov 02 2022 9:05AM EST (Author) Normal [place] Office Visit (Cardiology)on 09-20-2022 Follow-up visit Diagnoses/Problems [...] Table; Status:Hold For - Scheduling,Retrospective Authorization; Requested for:[id number]; Patient Instructions Please bring all medicines, vitamins, [...] has no rebound tachycardia. Recommendations, obtain [facility] monitoring, tilt table test, refer to [...] Signs Recorded: 20Sep2022 10:01AMRecorded: 20Sep2022 09:59AM Systolic Fatmu893 Diastolic Lying88 Systolic Tpthrcg342 Diastolic Phfbbub56 Systolic Cbtkkwbl501 Diastolic Tuljkwko83 Heart Rate85, Apical Johuolrf865, LUE, Supine Nbndgxcmt77, LUE, Supine Height5 ft 2 in Dpachn100 lb BMI Pxvvsataqk31.36 kg/m2 BSA Calculated1.77 Tobacco Useb) No PHQ-2 #1. Ov (more content not included)... Normal [place] Tobacco Screening.on 023 Adult depression screening assessment No [facility] TurnTide 250 DO Work Phone: Tobacco use status CPHS b) No [facility] BATS ilan 250 DO Work Phone: MAGDA BY IFA WITH REFLEXon Nuclear Ab IF (S) [Titer] Negative Negative [facility] CCP ANTIBODY IGGon Cyclic citrullinated peptide IgG Qn <20 Units [facility] Cyclic citrullinated peptide IgG Qnon 07-31-2022 CCP Antibody IgG Qualitative Negative Negative [facility] C-REACTIVE PROTEIN (CRP)on 0 07-28-2022 CRP [Mass/Vol] <0.9 mg/dL [facility] CBC W Auto Differential pane l (Bld)on 07-28-2022 Basophils (Bld) [#/Vol] 0.03 10*3/uL <0.11 k/uL [facility] Basophils/100 WBC (Bld) 0.4 % [facility] Differential cell count method Nom (Bld) Auto [facility] Eosinophils (Bld) [#/Vol] 0.07 10*3/uL <0.46 k/uL [facility] Eosinophils/100 WBC (Bld) 0.9 % [facility] Erythrocyte distribution width (RBC) [Ratio] 13.0 % 11.5 - 15.0 % [facility] Hematocrit (Bld) [Volume fraction] 44.1 % 36.0 - 46.0 % [facility] Hemoglobin (Bld) [Mass/Vol] 14.3 g/dL 11.5 - 15.5 g/dL [facility] Immature granulocytes (Bld) [#/Vol] <0.10 k/uL [facility] Immature granulocytes/100 WBC (Bld) 0.3 % [facility] Lymphocytes (Bld) [#/Vol] 2.43 10*3/uL 1.00 - 4.00 k/uL [facility] Lymphocytes/100 WBC (Bld) 30.5 % [facility] MCH (RBC) [Entitic mass] 29.0 pg 26.0 - 34.0 pg [facility] MCHC (RBC) [Mass/Vol] 32.4 g/dL 30.5 - 36.0 g/dL [facility] MCV (RBC) [Entitic vol] 89.5 fL 80.0 - 100.0 fL [facility] Monocytes (Bld) [#/Vol] 0.49 10*3/uL <0.87 k/uL [facility] Monocytes/100 WBC (Bld) 6.1 % [facility] Neutrophils (Bld) [#/Vol] 4.93 10*3/uL 1.45 - 7.50 k/uL [facility] Neutrophils/100 WBC (Bld) 61.8 % [facility] Nucleated RBC (Bld) [#/Vol] <0.01 k/uL [facility] Nucleated RBC/100 WBC (Bld) [Ratio] 0.0 /100 WBC [facility] Platelet mean volume (Bld) [Entitic vol] 10.1 fL 9.0 - 12.7 fL [facility] Platelets (Bld) [#/Vol] 251 10*3/uL 150 - 400 k/uL [facility] RBC (Bld) [#/Vol] 4.93 10*6/uL 3.90 - 5.20 m/uL [facility] WBC (Bld) [#/Vol] 7.97 10*3/uL 3.70 - 11.00 k/uL [facility] Comprehensive metabolic 2000 panelon 07-28-2022 Albumin [Mass/Vol] 4.7 g/dL 3.9 - 4.9 g/dL [facility] ALP [Catalytic activity/Vol] 86 U/L 34 - 123 U/L [facility] ALT [Catalytic activity/Vol] 58 U/L High 7 - 38 U/L [facility] Anion gap [Moles/Vol] 12 mmol/L 9 - 18 mmol/L [facility] AST [Catalytic activity/Vol] 31 U/L 13 - 35 U/L [facility] Bilirubin [Mass/Vol] 0.4 mg/dL 0.2 - 1 .3 mg/dL [facility] Calcium [Mass/Vol] 10.0 mg/dL 8.5 - 10. 2 mg/dL [facility] Chloride [Moles/Vol] 105 mmol/L 97 - 10 5 mmol/L [facility] CO2 [Moles/Vol] 23 mmol/L 22 - 30 mmol/L [facility] Creatinine [Mass/Vol] 0.79 mg/dL 0.58 - 0.96 mg/dL [facility] Estimated Glomerular Filtration Rate 100 mL/min/1.73m >=60 mL/min/1.7 3m [facility] Glucose [Mass/Vol] 84 mg/dL 74 - 99 mg/dL [facility] Potassium [Moles/Vol] 4.1 mmol/L 3.7 - 5.1 mmol/L [facility] Protein [Mass/Vol] 7.7 g/dL 6.3 - 8.0 g/dL [facility] Sodium [Moles/Vol] 140 mmol/L 136 - 144 mmol/L [facility] Urea nitrogen [Mass/Vol] 12 mg/dL 7 - 21 mg/dL [facility] ESR Westergren method (Bld) [Velocity]on 07-28-2022 ESR (Bld) [Velocity] 5 mm/h 0 - 20 mm/hr [facility] No Panel Informationon 07-28 [facility] RHEUMATOID FACTOR BLon 07-28 Rheumatoid factor Qn <16 IU/mL [facility] XR CSPINE OBL FLEX_EXTon XR CSPINE [...] by: NAVNEET MONTERO Date: 2022-02-16 08:57 Normal [facility] Ferritin [Mass/volume] in Se rum or PlasmaOrdered By: Kenna Sheehan on 01-19-2022 Ferritin [Mass/Vol] 51.8 ng/mL 11-306.8 [facility] PAP ACOG PANEL 2: 30 to 65on 01-13-2022 . . Normal [facility] Comment on above: Result Comment: Perf ormed at: WB Performed By: #### [id number] #### [facility] [address] [place] [address] [address] Lui Fonseca Age Gdln ACOG Testing 30-65 Normal [facility] Comment on above: Performed By: #### [id number] #### [facility] [address] [place], [place] [address] Dr. Lui Fonseca DIAGNOSIS: Comment Normal [facility] Comment on above: Result Comment: NEGA TIVE FOR INTRAEPITHELIAL LESION OR MALIGNANCY. Performed at: WB Performed By: #### 4 [id number] #### [facility] [address] [place] [id number] Lui Fonseca HPV Aptima Negative Normal Negative [facility] Comment on above: Result Comment: This nucleic acid amplification test detects fourteen high-risk HPV types (16,18,31,33,35,39,45,51,52,56,58,59,66,68) without differentiation. Performed at: =G Performed By: #### 4 [id number] #### [facility] [address] [place] [address] Dr. Lui Fonseca Methodology: Comment Normal [facility] Comment on above: Result Comment: This liquid based ThinPrep(R) pap test was screened with the use of an image guided system. Performed at: WB Performed By: #### 4 [id number] #### [facility] [address] [place] [address] Dr. Lui Fonseca Note: Comment Normal [facility] Comment on above: Result Comment: The Pap smear is a screening test designed to aid in the detection of premalignant and malignant conditions of the uterine cervix. It is not a diagnostic procedure and should not be used as the sole means of detecting cervical cancer. Both false-positive and false-negative reports do occur. . Performed at: WB Performed By: #### [id number] #### [facility] [address] [place] [address] Dr. Lui Fonseca Performed by: Comment Normal [facility] Comment on above: Result Comment: Susan Alejandro, Supervisory Flask Carrier (ASCP) Performed at: WB Performed By: #### [id number] #### [facility] [address] [place] [address] Dr. Lui Fonseca Specimen adequacy: Comment Normal [facility] Comment on above: Result Comment: Sati sfactory for evaluation. No endocervical component is identified. Performed at: WB Performed By: #### [id number] #### [facility] [address] [place] [address] Dr. Lui Fonseca INSULINon 01-02-2022 Insulin 20.6 uIU/mL Normal 2.6-24.9 [facility] Comment on above: Performed By: #### I NSULIN #### [facility] [address] [place] [address] Dr. Lui Fonseca H PYLORI ANTIBODY IGGon 12-19 H. PYLORI IGG ABS 0.15 Index Value Normal 0.00-0.79 [facility] Comment on above: Result Comment: Nega tive <0.80 Equivocal 0.80 - 0.89 Positive >0.89 Performed By: #### H PYLLC #### [facility] [address] [place] [address] Dr. Lui Fonseca T4, T3U, FTI LABCORPon 01-01 Free Thyroxine Index 2.7 Normal 1.2-4.9 [facility] Comment on above: Performed By: #### T HYLC #### [facility] [address] [place] [address] Dr. Lui Fonseca T3 Uptake 30 % Normal 24-39 [facility] Comment on above: Performed By: #### T HYLC #### [facility] [address] [place] [address] Dr. Lui Fonseca T4 [Mass/Vol] 9.1 ug/dL Normal 4.5-12.0 [facility] Comment on above: Performed By: #### T HYLC #### [facility] [address] [place] [address] Dr. Lui Fonseca CBC AUTO DIFFon 12-31-2021 BASO # 0.0 103/ul Normal 0.0-0.1 [facility] Comment on above: Performed By: #### C BC #### [facility] [address] [place] [address] Dr. Lui Fonseca Basophils/100 WBC (Bld) 0.4 % Normal 0.2-2.0 [facility] Comment on above: Performed By: #### C BC #### [facility] [address] [place] [address] Dr. Lui Fonseca EO # 0.2 103/ul Normal 0.0-0.7 [facility] Comment on above: Performed By: #### C BC #### [facility] [address] [place] [address] Dr. Lui Fonseca Eosinophils/100 WBC (Bld) 2.8 % Normal 0.9-7.0 [facility] Comment on above: Performed By: #### C BC #### [facility] [address] [place] [address] Dr. Lui Fonseca Erythrocyte distribution width (RBC) [Ratio] 13.2 % Normal 11.0-15.0 [facility] Comment on above: Performed By: #### C BC #### [facility] [address] [place] [address] Dr. Lui Fonseca Hematocrit (Bld) [Volume fraction] 44.0 % Normal 36.0-48.0 [facility] Comment on above: Performed By: #### C BC #### [facility] [address] [place] [address] Dr. Lui Fonseca Hemoglobin (Bld) [Mass/Vol] 14.3 g/dL Normal 12.0-16.0 [facility] Comment on above: Performed By: #### C BC #### [facility] [address] [place] [address] Dr. Lui Fonseca IG # 0.01 10e3/ul Normal 0.00-0.03 [facility] Comment on above: Performed By: #### C BC #### [facility] [address] [place] [address] Dr. Lui Fonseca IG % 0.2 % Normal 0.0-0.5 [facility] Comment on above: Performed By: #### C BC #### [facility] [address] [place] [address] Dr. Lui Fonseca LYMPH # 2.3 103/ul Normal 1.2-3.8 [facility] Comment on above: Performed By: #### C BC #### [facility] [address] [place] [address] Dr. Lui Fonseca Lymphocytes/100 WBC (Bld) 41.6 % Normal 20.5-60.0 [facility] Comment on above: Performed By: #### C BC #### [facility] [address] [place] [address] Dr. Lui Fonseca MANUAL DIFF REQ NO Normal [facility] Comment on above: Performed By: #### C BC #### [facility] [address] [place] [address] Dr. Lui Fonseca MCH (RBC) [Entitic mass] 29.1 pg Normal 26.7-34.0 [facility] Comment on above: Performed By: #### C BC #### [facility] [address] [place] [address] Dr. Lui Fonseca MCHC (RBC) [Mass/Vol] 32.5 g/dL Normal 29.9-35.2 [facility] Comment on above: Performed By: #### C BC #### [facility] [address] [place] [address] Dr. Lui Fonseca MCV (RBC) [Entitic vol] 89.6 fL Normal 81.0-99.0 [facility] Comment on above: Performed By: #### C BC #### [facility] [address] [place] [address] Dr. Lui Fonseca MONO # 0.3 103/ul Normal 0.3-0.8 [facility] Comment on above: Performed By: #### C BC #### [facility] [address] [place] [address] Dr. Lui Fonseca Monocytes/100 WBC (Bld) 6.3 % Normal 1.7-12.0 [facility] Comment on above: Performed By: #### C BC #### [facility] [address] [place] [address] Dr. Lui Fonseca NEUT # 2.7 103/ul Normal 1.4-6.5 [facility] Comment on above: Performed By: #### C BC #### [facility] [address] [place] [address] Dr. Lui Fonseca Neutrophils/100 WBC (Bld) 48.7 % Normal 43.0-75.0 [facility] Comment on above: Performed By: #### C BC #### [facility] Laboratory [address] [place] [address] Dr. Lui Fonseca Platelet mean volume (Bld) [Entitic vol] 9.5 fL Normal 9.5-13.5 [facility] Comment on above: Performed By: #### C BC #### [facility] Laboratory [address] [place] [address] Dr. Lui Fonseca PLT 276 103/ul Normal 150-450 [facility] Comment on above: Performed By: #### C BC #### [facility] Laboratory [address] [address] [address] Lui Fonseca RBC 4.91 106/ul Normal 4.20-5.40 [facility] Comment on above: Performed By: #### C BC #### [facility] Laboratory [address] [address] [address] Lui Fonseca WBC 5.4 103/ul Normal 4.0-11.0 [facility] Comment on above: Performed By: #### C BC #### [facility] Laboratory [address] [place] [address] Dr. Lui Fonseca GLYCOHEMOGLOBIN A1Con 2021 ADA RECOMMENDATION SEE BELOW Normal [facility] Comment on above: Result Comment: ADA RECOMMENDED LIMIT 4.0 - 6.0 ADA THERAPEUTIC TARGET < 7.0 ACTION SUGGESTED > 7.0 Performed By: #### A 1C ####[facility] [address] [address]Dr. Lui Fonseca Glucose [Mass/Vol] 97 mg/dL Normal [facility] Comment on above: Performed By: #### A 1C ####[facility] [address] [address]Dr. Lui Fonseca HbA1c (Bld) [Mass fraction] 5.0 % Normal 4.5-6.2 [facility] Comment on above: Performed By: #### A 1C ####[facility] [address] [address]Dr. Lui Fonseca IRONon 12-31-2021 Iron [Mass/Vol] 101.0 ug/dL Normal 50.0-170.0 [facility] Comment on above: Performed By: #### I EDMOND #### [facility] Laboratory [address] [place] [address] Dr. Lui Fonseca LIPID PROFILEon 12-31-2021 CHOL-HDL RATIO NORM SEE BELOW Normal [facility] Comment on above: Result Comment: 3.3 - 4.4 LOW RISK 4.4 - 7.1 AVERAGE RISK 7.1 - 11.0 MODERATE RISK >11.0 HIGH RISK Performed By: #### T SH, LIPID, CMP ####[facility] [address] [id number]. Lui Fonseca Cholesterol [Mass/Vol] 149 mg/dL Normal <=200 [facility] Comment on above: Performed By: #### T SH, LIPID, CMP ####[facility] [address] [id number]. Gabiandrzej Fonseca Cholesterol in HDL [Mass/Vol] 55 mg/dL Normal 40-60 [facility] Comment on above: Performed By: #### T SH, LIPID, CMP ####[facility] [address] [address]Dr. Gabiandrzej Raymundo Cholesterol in LDL [Mass/Vol] 61.4 mg/dL Normal [facility] Comment on above: Performed By: #### T MAMADOU, LIPID, CMP ####[facility] [address] [place], [place] [address]Dr. Lui Fonseca Cholesterol.total/Chol esterol in HDL [Mass ratio] 2.7 {ratio} Normal [facility] Comment on above: Performed By: #### T SH, LIPID, CMP ####[facility] [address] [id number]. Lui Fonseca HDL NORMAL > or = 60 mg/dl - LO W CARDIOVASCULAR RISK <40 mg/dl - HIGH CARDIOVASCULAR RISK Normal [facility] Comment on above: Performed By: #### T SH, LIPID, CMP ####[facility] [address] [id number]. Gabiandrzej Fonseca LDL CALC NORMAL SEE BELOW Normal [facility] Comment on above: Result Comment: <100 mg/dl OPTIMAL 100 - 129 mg/dl NEAR OR ABOVE OPTIMAL 130 - 159 mg/dl BORDERLINE HIGH 160 - 189 mg/dl HIGH >190 mg/dl VERY HIGH Performed By: #### T SH, LIPID, CMP ####[facility] [address] [id number]. Lui Fonseca Triglyceride [Mass/Vol] 163 mg/dL Critically high <=150 [facility] Comment on above: Performed By: #### T MAMADOU, LIPID, CMP ####[facility] [address] [id number] Fonseca VLDL CALC 32.6 mg/dL Normal [facility] Comment on above: Performed By: #### T SH, LIPID, CMP ####[facility] [address] [id number] Fonseca OCC BLD IMMUNO SCREENon 12-19 OCCULT BLOOD Negative Normal NEGATIVE [facility] Comment on above: Performed By: #### O BSCRN #### [facility] Laboratory [address] [place], [place] [address] Dr. Lui Fonseca PROF 14(COMP METB)on 022 Albumin [Mass/Vol] 4.1 g/dL Normal 3.4-5.0 [facility] Comment on above: Performed By: #### T MAMADOU, LIPID, CMP ####[facility] [address] [address]DrLatisha Fonseca Albumin/Globulin [Mass ratio] 1.2 {ratio} Normal [facility] Comment on above: Performed By: #### T MAAMDOU, LIPID, CMP ####[facility] [address] [address]DrLatisha Fonseca ALP [Catalytic activity/Vol] 86 U/L Normal 46-116 [facility] Comment on above: Performed By: #### T MAMADOU, LIPID, CMP ####[facility] [address] [id number] Fonseca ALT [Catalytic activity/Vol] 27 U/L Normal 14-59 [facility] Comment on above: Performed By: #### T MAMADOU, LIPID, CMP ####[facility] [address] [address]DrLatisha Fonseca Anion gap [Moles/Vol] 14.1 mmol/L Normal [facility] Comment on above: Performed By: #### T SH, LIPID, CMP ####[facility] [address] [address]DrLatisha Fonseca AST [Catalytic activity/Vol] 15 U/L Normal 15-37 [facility] Comment on above: Performed By: #### T SH, LIPID, CMP ####[facility] [address] [address]Dr. Lui Fonseca Bilirubin [Mass/Vol] 0.6 mg/dL Normal 0.2-1.0 [facility] Comment on above: Performed By: #### T SH, LIPID, CMP ####[facility] [address] [place], [place] [address]Dr. Lui Fonseca Calcium [Mass/Vol] 9.1 mg/dL Normal 8.5-10.1 [facility] Comment on above: Performed By: #### T MAMADOU, LIPID, CMP ####[facility] [address] [place], [place] [address]Dr. Lui Fonseca Chloride [Moles/Vol] 104 mmol/L Normal 98-107 [facility] Comment on above: Performed By: #### T MAMADOU, LIPID, CMP ####[facility] [address] [place], [place] [address]Dr. Lui Fonseca CO2 [Moles/Vol] 26.8 mmol/L Normal 21.0-32.0 [facility] Comment on above: Performed By: #### T MAMADOU, LIPID, CMP ####[facility] [address] [place], [place] [address]Dr. Lui Fonseca Creatinine [Mass/Vol] 0.84 mg/dL Normal 0.55-1.02 [facility] Comment on above: Performed By: #### T SH, LIPID, CMP ####[facility] [address] [place], [place] [address]Dr. Lui Fonseca EGFR-AF MALDIVIAN >60 Normal >=60 [facility] Comment on above: Performed By: #### T SH, LIPID, CMP ####[facility] [address] [place], [place] [address]Dr. Lui Fonseca EGFR-NON AF MALDIVIAN >60 Normal >=60 [facility] Comment on above: Performed By: #### T SH, LIPID, CMP ####[facility] [address] [address]Dr. Liu Fonseca Globulin (S) [Mass/Vol] 3.3 g/dL Normal [facility] Comment on above: Performed By: #### T MAMADOU, LIPID, CMP ####[facility] [address] [address]Dr. Lui Fonseca Glucose [Mass/Vol] 93 mg/dL Normal 74-106 [facility] Comment on above: Performed By: #### T MAMADOU, LIPID, CMP ####[facility] [address] [place], [place] [address]Dr. Lui Fonseca Potassium [Moles/Vol] 3.9 mmol/L Normal 3.5-5.1 [facility] Comment on above: Performed By: #### T MAMADOU, LIPID, CMP ####[facility] [address] [place], [place] [address]Dr. Lui Fonseca Protein [Mass/Vol] 7.4 g/dL Normal 6.4-8.2 [facility] Comment on above: Performed By: #### T MAMADOU, LIPID, CMP ####[facility] [address] [place], [place] [address]Dr. Lui Fonseca Sodium [Moles/Vol] 141 mmol/L Normal 136-145 [facility] Comment on above: Performed By: #### T MAMADOU, LIPID, CMP ####[facility] [address] [place], [place] [address]Dr. Lui Fonseca Urea nitrogen [Mass/Vol] 8.0 mg/dL Normal 7.0-18.0 [facility] Comment on above: Performed By: #### T MAMADOU, LIPID, CMP ####[facility] [address] [place], [place] [address]Dr. Lui Fonseca Urea nitrogen/Creatinine [Mass ratio] 9.5 mg/mg Normal [facility] Comment on above: Performed By: #### T MAMADOU, LIPID, CMP ####[facility] [address] [place], [place] [address]Dr. Lui Fonseca TSHon 12-31-2021 TSH 0.539 uIU/mL Normal 0.358-3.74 0 [facility] Comment on above: Performed By: #### T SH, LIPID, CMP ####[facility] [address] [place], [place] [address]NoLatisha Fonseca Vital Signs Date Time Vital Sign Value Performing Clinician Facility 11-20-2024 09:04-0400 Body height 157.5 cm Sis Iryb MD Work Phone: [facility] 11-20-2024 09:04-0400 Body mass index (BMI) [Ratio] 30.54 kg/m2 Sis Irby MD Work Phone: [facility] 11-20-2024 09:04-0400 Body weight 75.75 kg Sis Irby MD Work Phone: [facility] 11-20-2024 09:04-0400 Diastolic blood pressure 84 mm[Hg] Sis Irby MD Work Phone: [facility] 11-20-2024 09:04-0400 Systolic blood pressure 126 mm[Hg] Sis Irby MD Work Phone: [facility] 10-29-2024 16:09-0400 Body height 157.5 cm Harman Sullivan MD Work Phone: [facility] 10-29-2024 16:09-0400 Body mass index (BMI) [Ratio] 29.84 kg/m2 Harman Sullivan MD Work Phone: [facility] 10-29-2024 16:09-0400 Body weight 74 kg Harman Sullivan MD Work Phone: [facility] 10-29-2024 16:09-0400 Diastolic blood pressure 77 mm[Hg] Harman Sullivan MD Work Phone: [facility] 10-29-2024 16:09-0400 Heart rate 102 /min Harman Sullivan MD Work Phone: [facility] 10-29-2024 16:09-0400 SaO2% (BldA) [Mass fraction] 99 % Harman Sullivan MD Work Phone: [facility] 10-29-2024 16:09-0400 Systolic blood pressure 111 mm[Hg] Harman Sullivan MD Work Phone: [facility] 10-22-2024 15:46-0400 Body height 157.48 cm Filiberto Ying MD Work Phone: [facility] 10-22-2024 15:46-0400 Body mass index (BMI) [Ratio] 30 kg/m2 Filiberto Ying MD Work Phone: [facility] 10-22-2024 15:46-0400 Body weight 74.5 kg Filiberto Ying MD Work Phone: [facility] 10-22-2024 15:46-0400 Diastolic blood pressure 80 mm[Hg] Filiberto Ying MD Work Phone: [facility] 10-22-2024 15:46-0400 Heart rate 88 /min Filiberto Ying MD Work Phone: [facility] 10-22-2024 15:46-0400 SaO2% (BldA) [Mass fraction] 99 % Filiberto Ying MD Work Phone: [facility] 10-22-2024 15:46-0400 Systolic blood pressure 110 mm[Hg] Filiberto Ying MD Work Phone: [facility] 09-17-2024 08:59-0400 Diastolic blood pressure 68 mm[Hg] Filiberto Ying MD Work Phone: [facility] 09-17-2024 08:59-0400 Heart rate 85 /min Filiberto Ying MD Work Phone: [facility] 09-17-2024 08:59-0400 Respiratory rate 18 /min Filiberto Ying MD Work Phone: [facility] 09-17-2024 08:59-0400 SaO2% (BldA) [Mass fraction] 98 % Filiberto Ying MD Work Phone: [facility] 09-17-2024 08:59-0400 Systolic blood pressure 104 mm[Hg] Filiberto Ying MD Work Phone: [facility] 09-17-2024 05:05-0400 Body height 157.48 cm Filiberto Ying MD Work Phone: [facility] 09-17-2024 05:05-0400 Body temperature 98.1 [degF] Filiberto Ying MD Work Phone: [facility] 09-17-2024 05:05-0400 Body weight 75.55 kg Filiberto Ying MD Work Phone: [facility] 08-01-2024 10:43-0400 Diastolic blood pressure 85 mm[Hg] Filiberto Ying MD Work Phone: [facility] 08-01-2024 10:43-0400 Heart rate 72 /min Filiberto Ying MD Work Phone: [facility] 08-01-2024 10:43-0400 Respiratory rate 18 /min Filiberto Ying MD Work Phone: [facility] 08-01-2024 10:43-0400 SaO2% (BldA) [Mass fraction] 99 % Filiberto Ying MD Work Phone: [facility] 08-01-2024 10:43-0400 Systolic blood pressure 116 mm[Hg] Filiberto Ying MD Work Phone: [facility] 08-01-2024 09:25-0400 Body temperature 98.2 [degF] Filiberto Ying MD Work Phone: [facility] 08-01-2024 07:49-0400 Body height 157.48 cm Filiberto Ying MD Work Phone: [facility] 08-01-2024 07:49-0400 Body weight 73.25 kg Filiberto Ying MD Work Phone: [facility] 07-30-2024 16:17-0400 Body height 157.5 cm Harman Sullivan MD Work Phone: [facility] 07-30-2024 16:17-0400 Body mass index (BMI) [Ratio] 30.24 kg/m2 Harman Sullivan MD Work Phone: [facility] 07-30-2024 16:17-0400 Body weight 75 kg Harman Sullivan MD Work Phone: [facility] 07-30-2024 16:17-0400 Diastolic blood pressure 82 mm[Hg] Harman Sullivan MD Work Phone: [facility] 07-30-2024 16:17-0400 Heart rate 106 /min Harman Sullivan MD Work Phone: [facility] 07-30-2024 16:17-0400 SaO2% (BldA) [Mass fraction] 98 % Harman Sullivan MD Work Phone: [facility] 07-30-2024 16:17-0400 Systolic blood pressure 128 mm[Hg] Harman Sullivan MD Work Phone: [facility] 06-19-2024 20:00-0500 Diastolic blood pressure 61 mm[Hg] Filiberto Ying MD Work Phone: [facility] 06-19-2024 20:00-0500 Heart rate 67 /min Filiberto Ying MD Work Phone: [facility] 06-19-2024 20:00-0500 Respiratory rate 24 /min Filiberto Ying MD Work Phone: [facility] 06-19-2024 20:00-0500 SaO2% (BldA) [Mass fraction] 99 % Filiberto Ying MD Work Phone: [facility] 06-19-2024 20:00-0500 Systolic blood pressure 103 mm[Hg] Filiberto Ying MD Work Phone: [facility] 06-19-2024 13:52-0500 Body height 157.48 cm Filiberto Ying MD Work Phone: [facility] 06-19-2024 13:52-0500 Body temperature 98.1 [degF] Filiberto Ying MD Work Phone: [facility] 06-19-2024 13:52-0500 Body weight 74 kg Filiberto Ying MD Work Phone: [facility] 06-17-2024 10:04-0500 Diastolic blood pressure 72 mm[Hg] Filiberto Ying MD Work Phone: [facility] 06-17-2024 10:04-0500 Heart rate 85 /min Filiberto Ying MD Work Phone: [facility] 06-17-2024 10:04-0500 Respiratory rate 20 /min Filiberto Ying MD Work Phone: [facility] 06-17-2024 10:04-0500 SaO2% (BldA) [Mass fraction] 100 % Filiberto Ying MD Work Phone: [facility] 06-17-2024 10:04-0500 Systolic blood pressure 121 mm[Hg] Filiberto Ying MD Work Phone: [facility] 06-17-2024 09:19-0500 Body temperature 97 [degF] Filiberto Ying MD Work Phone: [facility] 06-17-2024 09:19-0500 Inhaled oxygen flow rate 6 L/min Filiberto Ying MD Work Phone: [facility] 06-17-2024 06:55-0500 Body height 157.48 cm Filiberto Ying MD Work Phone: [facility] 06-17-2024 06:55-0500 Body weight 75 kg Filiberto Ying MD Work Phone: [facility] 01-30-2024 13:48-0400 Body height 157.5 cm Harman Sullivan MD Work Phone: [facility] 01-30-2024 13:48-0400 Body mass index (BMI) [Ratio] 28.43 kg/m2 Harman Sullivan MD Work Phone: [facility] 01-30-2024 13:48-0400 Body weight 70.5 kg Harman Sullivan MD Work Phone: [facility] 01-30-2024 13:48-0400 Diastolic blood pressure 76 mm[Hg] Harman Sullivan MD Work Phone: [facility] 01-30-2024 13:48-0400 Heart rate 91 /min Harman Sullivan MD Work Phone: [facility] 01-30-2024 13:48-0400 Systolic blood pressure 115 mm[Hg] Harman Sullivan MD Work Phone: [facility] 10-31-2023 10:14-0400 Body height 157.5 cm Harman Sullivan MD Work Phone: [facility] 10-31-2023 10:14-0400 Body mass index (BMI) [Ratio] 27.82 kg/m2 Harman Sullivan MD Work Phone: [facility] 10-31-2023 10:14-0400 Body weight 69 kg Harman Sullivan MD Work Phone: [facility] 10-31-2023 10:14-0400 Diastolic blood pressure 70 mm[Hg] Harman Sullivan MD Work Phone: [facility] 10-31-2023 10:14-0400 Heart rate 84 /min Harman Sullivan MD Work Phone: [facility] 10-31-2023 10:14-0400 Systolic blood pressure 109 mm[Hg] Harman Sullivan MD Work Phone: [facility] 09-21-2023 08:12-0400 Body height 157.5 cm Harman Sullivan MD Work Phone: [facility] 09-21-2023 08:12-0400 Body mass index (BMI) [Ratio] 27.58 kg/m2 Harman Sullivan MD Work Phone: [facility] 09-21-2023 08:12-0400 Body weight 68.4 kg Harman Sullivan MD Work Phone: [facility] 09-21-2023 08:12-0400 Diastolic blood pressure 74 mm[Hg] Harman Sullivan MD Work Phone: [facility] 09-21-2023 08:12-0400 Heart rate 84 /min Harman Sullivan MD Work Phone: [facility] 09-21-2023 08:12-0400 SaO2% (BldA) [Mass fraction] 99 % Harman Sullivan MD Work Phone: [facility] 09-21-2023 08:12-0400 Systolic blood pressure 109 mm[Hg] Harman Sullivan MD Work Phone: [facility] 05-15-2023 12:15-0500 Diastolic blood pressure 67 mm[Hg] MD Filiberto Ying Work Phone: [facility] 05-15-2023 12:15-0500 Heart rate 86 /min MD Filiberto Ying Work Phone: [facility] 05-15-2023 12:15-0500 Respiratory rate 16 /min MD Filiberto Ying Work Phone: [facility] 05-15-2023 12:15-0500 SaO2% (BldA) [Mass fraction] 100 % MD Filiberto Ying Work Phone: [facility] 05-15-2023 12:15-0500 Systolic blood pressure 125 mm[Hg] MD Filiberto Ying Work Phone: [facility] 05-15-2023 11:10-0500 Inhaled oxygen flow rate 6 L/min MD Filiberto Ying Work Phone: [facility] 05-15-2023 10:55-0500 Body temperature 98.1 [degF] MD Filiberto Ying Work Phone: [facility] 05-15-2023 09:30-0500 Body mass index (BMI) [Ratio] 25.8 kg/m2 MD Filiberto Ying Work Phone: [facility] 05-15-2023 08:55-0500 Body height 157.48 cm MD Filiberto Ying Work Phone: [facility] 05-15-2023 08:55-0500 Body weight 64 kg MD Filiberto Ying Work Phone: [facility] 04-05-2023 12:08-0500 Body temperature 98.2 [degF] MD Filiberto Ying Work Phone: [facility] 04-05-2023 12:08-0500 Diastolic blood pressure 69 mm[Hg] MD Filiberto Ying Work Phone: [facility] 04-05-2023 12:08-0500 Heart rate 87 /min MD Filiberto Ying Work Phone: [facility] 04-05-2023 12:08-0500 Respiratory rate 18 /min MD Filiberto Ying Work Phone: [facility] 04-05-2023 12:08-0500 SaO2% (BldA) [Mass fraction] 100 % MD Filiberto Ying Work Phone: [facility] 04-05-2023 12:08-0500 Systolic blood pressure 110 mm[Hg] MD Filiberto Ying Work Phone: [facility] 01-12-2023 09:35-0400 Body height 157.5 cm Robert Bernarda [employer]OR Work Phone: [facility] 01-12-2023 09:35-0400 Body weight 70.31 kg Robert Bernarda [employer] COLLECTOR Work Phone: [facility] 01-12-2023 09:35-0400 Diastolic blood pressure 69 mm[Hg] Robert Bernarda [employer]OUNTS COLLECTOR Work Phone: [facility] 01-12-2023 09:35-0400 Heart rate 110 /min Robert Bernarda [employer]OUNTS COLLECTOR Work Phone: [facility] 01-12-2023 09:35-0400 SaO2% (BldA) [Mass fraction] 93 % Robert Bernarda [employer]OUNTS COLLECTOR Work Phone: [facility] 01-12-2023 09:35-0400 Systolic blood pressure 110 mm[Hg] Robert Menchaca ACCOUNTS COLLECTOR Work Phone: [facility] 10-23-2022 14:14-0400 Diastolic blood pressure 66 mm[Hg] MD Filiberto Ying Work Phone: [facility] 10-23-2022 14:14-0400 Heart rate 100 /min MD Filiberto Ying Work Phone: [facility] 10-23-2022 14:14-0400 Systolic blood pressure 113 mm[Hg] MD Filiberto Ying Work Phone: [facility] 10-23-2022 13:50-0400 SaO2% (BldA) [Mass fraction] 99 % MD Filiberto Ying Work Phone: [facility] 09-20-2022 10:01-0400 Diastolic blood pressure 88 mm[Hg] Filiberto M Hoy Work Phone: [facility] [address] DO Work Phone: 09-20-2022 10:01-0400 Diastolic blood pressure 84 mm[Hg] Filiberto M Hoy Work Phone: [facility] [address] DO Work Phone: 09-20-2022 10:01-0400 Diastolic blood pressure 86 mm[Hg] Filiberto M Hoy Work Phone: [facility] [address] DO Work Phone: 09-20-2022 10:01-0400 Systolic blood pressure 120 mm[Hg] Filiberto M Hoy Work Phone: [facility] [address] DO Work Phone: 09-20-2022 10:01-0400 Systolic blood pressure 122 mm[Hg] Filiberto M Hoy Work Phone: [facility] [address] DO Work Phone: 09-20-2022 09:59-0400 Body height 157.48 cm Filiberto M Hoy Work Phone: [facility] [address] DO Work Phone: 09-20-2022 09:59-0400 Body mass index (BMI) [Ratio] 30.36 kg/m2 Filiberto Aguilar Hoy Work Phone: [facility] [address] DO Work Phone: 09-20-2022 09:59-0400 Body surface area Derived from formula 1.77 m2 Filiberto Aguilar Hoy Work Phone: [facility] [address] DO Work Phone: 09-20-2022 09:59-0400 Body weight 75.3 kg Filiberto Aguilar Hoy Work Phone: [facility] [address] DO Work Phone: 09-20-2022 09:59-0400 Diastolic blood pressure 88 mm[Hg] Filiberto Aguilar Hoy Work Phone: [facility] [address] DO Work Phone: 09-20-2022 09:59-0400 Heart rate 85 /min Filiberto Aguilar Hoy Work Phone: [facility] [address] DO Work Phone: 09-20-2022 09:59-0400 Systolic blood pressure 120 mm[Hg] Filiberto Aguilar Hoy Work Phone: [facility] [address] DO Work Phone: 07-28-2022 13:01-0500 Body height 157.5 cm Somfarzaneh Limon [employer]S COLLECTOR Work Phone: [facility] 07-28-2022 13:01-0500 Body temperature 97.81 [degF] Somstephanieta Braxton [employer]OUNTS COLLECTOR Work Phone: [facility] 07-28-2022 13:01-0500 Body weight 79.11 kg Somstephanieta Braxton [employer]S COLLECTOR Work Phone: [facility] 07-28-2022 13:01-0500 Diastolic blood pressure 59 mm[Hg] Nayely Limon [employer]OUNTS COLLECTOR Work Phone: [facility] 07-28-2022 13:01-0500 Heart rate 85 /min Nayely Limon [employer]OUNTS COLLECTOR Work Phone: [facility] 07-28-2022 13:01-0500 Systolic blood pressure 117 mm[Hg] Nayely Limon [employer]S COLLECTOR Work Phone: [facility] Encounters Encounter Date Encounter Type Care Provider Facility Start: 11-27-2024 End: 11-27-2024 ambulatory SIS IRBY Not Available Start: 11-25-2024 End: 11-25-2024 Bamboo flowsheet Ban Bedolla MD Work Phone: [facility] Start: 11-25-2024 End: 11-25-2024 Bamboo flowsmelita Bedolla MD Work Phone: [facility] Start: 11-25-2024 End: 11-25-2024 Office outpatient visit 15 minutes Ban Bedolla MD Work Phone: [facility] Comment on above: Other rosacea (Prima ry Dx); Inflamed skin tag Start: 11-25-2024 End: 11-25-2024 ambulatory BAN BEDOLLA Not Available Start: 11-20-2024 End: 11-20-2024 Bamboo flowsheet Sis Irby MD Work Phone: [facility] NEUROLOGY Start: 11-20-2024 End: 11-20-2024 Bamboo flowsheet Sis Irby MD Work Phone: [facility] NEUROLOGY Start: 11-20-2024 End: 11-20-2024 Office outpatient new 45 minutes Sis Irby MD Work Phone: [facility] NEUR Comment on above: Cervical dystonia (P rimary Dx); RLS (restless legs syndrome) Start: 11-20-2024 End: 11-20-2024 ambulatory SIS IRBY Not Available Start: 11-11-2024 End: 11-11-2024 Bamboo flowsheet Ban Bedolla MD Work Phone: [facility] Start: 11-11-2024 End: 11-11-2024 Bamboo flowsheet Ban Bedolla MD Work Phone: [facility] Start: 11-11-2024 End: 11-11-2024 Office outpatient visit 25 minutes Ban Bedolla MD Work Phone: [facility] Comment on above: Other rosacea (Prima ry Dx) Start: 11-11-2024 End: 11-11-2024 ambulatory BAN BEDOLLA Not Available Start: 10-29-2024 End: 10-29-2024 Patient encounter procedure Harman Sullivan MD Work Phone: Neurology Comment on above: Chronic migraine wit hout aura, with intractable migraine, so stated, with status migrainosus (Primary Dx); Neck pain Start: 10-29-2024 End: 10-29-2024 ambulatory HARMAN SULLIVAN Facility:[facility] Start: 10-22-2024 End: 10-22-2024 ambulatory Filiberto Ying MD Work Phone: [facility] Work Phone: Start: 10-22-2024 End: 10-22-2024 Patient encounter procedure Filiberto Ying MD Work Phone: [facility] Work Phone: Start: 09-17-2024 End: 09-17-2024 Emergency department patient visit Filiberto Ying MD Work Phone: [facility]-Emergency Room Work Phone: Start: 08-01-2024 End: 08-01-2024 Emergency department patient visit Filiberto Ying MD Work Phone: [facility]-Emergency Room Work Phone: Start: 07-30-2024 End: 07-30-2024 ambulatory HARMAN SULLIVAN Facility:[facility] Start: 07-30-2024 End: 07-30-2024 Patient encounter procedure [...] patient visit Filiberto Ying MD Work Phone: [facility]-Emergency Room Work Phone: Start: 06-17-2024 End: 06-17-2024 Admission to same day surgery center Filiberto Ying MD Work Phone: [facility]-Surgery Center [place] Start: 06-17-2024 End: 06-17-2024 ambulatory Filiberto Ying MD Work Phone: [facility] Work Phone: Start: 06-10-2024 End: 06-10-2024 Departed Referred Filiberto Ying MD Work Phone: [facility]-Pre-Surgical Testing Work Phone: Start: 06-10-2024 End: 06-10-2024 Patient encounter procedure Filiberto Ying MD Work Phone: [facility]-Pre-Surgical Testing Work Phone: Start: 06-10-2024 End: 06-10-2024 ambulatory Filiberto Ying MD Work Phone: [facility] Work Phone: Start: 02-18-2024 End: 02-18-2024 ambulatory Reuben Bauman MD Facility: [place] Start: 01-30-2024 End: 01-30-2024 ambulatory HARMAN SULLIVAN Facility:[facility] Start: 01-30-2024 End: 01-30-2024 Patient encounter procedure Harman Sullivan MD Work Phone: Neurology Comment on above: Chronic migraine wit hout aura, with intractable migraine, so stated, with status migrainosus (Primary Dx); Neck pain Start: 01-28-2024 End: 01-28-2024 Patient encounter procedure MD Filiberto Ying Work Phone: [facility] C[facility]-Ultrasound Cntr for Breast Car Start: 01-28-2024 End: 01-28-2024 ambulatory MD Filiberto Ying Work Phone: [facility] Work Phone: Start: 11-09-2023 ambulatory [facility] Provider Neurology Comment on above: Paperwork Start: 11-09-2023 E-mail encounter kennedy aguilar caregiver [facility] Provider Neurology Start: 10-31-2023 Telephone encounter Harman fraser MD Work Phone: Neurology Comment on above: Appointment Start: 10-31-2023 End: 10-31-2023 Patient encounter procedure Harman Sullivan MD Work Phone: Neurology Comment on above: Chronic migraine wit hout aura, with intractable migraine, so stated, with status migrainosus (Primary Dx); Neck pain Start: 10-18-2023 Get Medical Advice Robert caraballo APRN.ACCOUNTS COLLECTOR Work Phone: Neurology Comment on above: Med refill Refill Request Start: 10-11-2023 Telephone encounter Harman fraser MD Work Phone: Neurology Comment on above: Insurance Authorizat ion (Botox) Start: 10-03-2023 ambulatory Robert Bernarda A PRN.ACCOUNTS COLLECTOR Work Phone: Neurology Comment on above: Fmla Start: 09-21-2023 Telephone encounter Harman fraser MD Work Phone: Neurology Comment on above: Request Outside [facility] Records Start: 09-21-2023 End: 09-21-2023 Patient encounter procedure Harman Sullivan MD Work Phone: Neurology Comment on above: Chronic migraine wit hout aura, with intractable migraine, so stated, with status migrainosus (Primary Dx); Neck pain; RLS (restless legs syndrome) Start: 09-15-2023 Refill Robert Giles PRN.ACCOUNTS COLLECTOR Work Phone: Neurology Comment on above: Refill Request Start: 09-04-2023 End: 09-04-2023 ambulatory Robertelisa Menchaca LONNY.ACCOUNTS COLLECTOR Work Phone: Neurology Comment on above: Cervical dystonia (P rimary Dx) Start: 09-04-2023 End: 09-04-2023 Telemedicine consultation with patient Robert Menchaca APRN.ACCOUNTS COLLECTOR Work Phone: [facility] Start: 09-03-2023 E-mail encounter fro m caregiver Robert Menchaca LONNY.ACCOUNTS COLLECTOR Work Phone: Neurology Start: 09-03-2023 Patient encounter procedure Robert Bernarda MUKHERJEE.ACCOUNTS COLLECTOR Work Phone: Neurology Comment on above: appointment Start: 05-15-2023 End: 05-15-2023 Admission to same day surgery center MD Filiberto Ying Work Phone: [facility]-Surgery Center [place] Start: 05-15-2023 End: 05-15-2023 ambulatory MD Filiberto Ying Work Phone: [facility] Work Phone: Start: 05-01-2023 End: 05-01-2023 ambulatory MD Filiberto Ying Work Phone: [facility] Work Phone: Start: 05-01-2023 End: 05-01-2023 Patient encounter procedure MD Filiberto Ying Work Phone: [facility]-Pre-Surgical Testing Work Phone: Start: 04-05-2023 End: 04-05-2023 Admission to same day surgery center MD Filiberto Ying Work Phone: [facility]-Ultrasound Cntr for Breast Car Start: 04-05-2023 End: 04-05-2023 ambulatory MD Filiberto Ying Work Phone: [facility] Work Phone: Start: 02-19-2023 Telephone encounter Robertelisa Rebolledon on LINE RIDER.ACCOUNTS COLLECTOR Work Phone: Neurology Comment on above: Results ([facility] ) Start: 02-09-2023 Telephone encounter Robertelisa Rebolledon on LINE RIDER.ACCOUNTS COLLECTOR Work Phone: Neurology Comment on above: Results ([facility] ) Start: 02-07-2023 End: 02-07-2023 ambulatory MD Filiberto Ying Work Phone: [facility] Work Phone: Start: 02-07-2023 End: 02-07-2023 Patient encounter procedure MD Filiberto Ying Work Phone: [facility]-Lab [place] Work Phone: Start: 01-19-2023 Orders Only Robert Giles PRN.ACCOUNTS COLLECTOR Work Phone: Neurology Start: 01-17-2023 ambulatory Robert Giles PRN.ACCOUNTS COLLECTOR Work Phone: Neurology Comment on above: Labs and rx Start: 01-12-2023 End: 01-12-2023 Patient encounter procedure Robert eMnchaca LINE RIDER.ACCOUNTS COLLECTOR Work Phone: Neurology Comment on above: Cervical dystonia (P rimary Dx); Neck tightness; RLS (restless legs syndrome) Start: 01-08-2023 Chart Update Filiberto Ying Work Phone: [facility]-[place] 320 DO Work Phone: Start: 12-28-[address] Soraya Cage F acility:[id number] Start: 11-14-2022 ambulatory Soraya Cage Facility:1 [id number] Start: 11-10-2022 [facility], Provider: Saeed Castellanos, Status: Pen, Time: 8:50 AM Filiberto Ying Work Phone: [facility] Work Phone: Start: 11-10-[address] Saeed Castellanos Facility: Start: 11-02-[address] Saeed Fultno [facility] Facility: Start: 11-02-[address] Saeed Castellanos Facility: Start: 10-23-2022 End: 10-23-2022 ambulatory MD Filiberto Ying Work Phone: [facility] Work Phone: Start: 10-23-2022 End: 10-23-2022 Patient encounter procedure MD Filiberto Ying Work Phone: [facility] Ctr-Electrodiagnostics Work Phone: Start: 10-23-2022 ambulatory Christophermaddiesally Marielcristofer Faci lity:[id number] Start: 10-12-2022 End: 10-12-2022 Patient encounter procedure MD Filiberto Ying Work Phone: [facility]-Center for Breast Care Work Phone: Start: 10-06-[address] FILIBERTO YING . Facili ty:H1 Start: 09-29-2022 EVENT [facility], Provider : MOOKIE YOUNG HOME CARE AIDE 1,[id number], Status: Pen, Time: 1:00 PM Filiberto Ying Work Phone: [facility]-[place] 250 DO Work Phone: Start: 09-29-2022 Patient encounter procedure Filiberto Ying Work Phone: [facility] 250 DO Work Phone: Start: 09-29-[address] Saeed Castellanos Facility: Start: 09-20-2022 Office consultation new/estab patient 60 min Filiberto Ying Work Phone: [facility]-[place] 250 DO Work Phone: Start: 09-20-[address] Saeed Castellanos Facility: Start: 08-11-2022 End: 08-11-2022 ambulatory Nayely Limon LONNY.ACCOUNTS COLLECTOR Work Phone: Rheumatology Comment on above: Neck pain, chronic ( Primary Dx); Fibromyalgia Start: 08-11-2022 End: 08-11-2022 Telemedicine consultation with patient Nayely Limon APRN.ACCOUNTS COLLECTOR Work Phone: [facility] Start: 07-28-2022 End: 07-28-2022 Subsequent hospital visit by physician Xr Main [facility]21 Radiology Comment on above: Neck pain, chronic [ M54.2, G89.29] Start: 07-28-2022 End: 07-28-2022 Patient encounter procedure Nayely Limon APRN.ACCOUNTS COLLECTOR Work Phone: Rheumatology Comment on above: Neck [...] MD Filiberto Ying Work Phone: [facility]-Lab [place] Start: 01-09-2022 End: 01-09-[address] TOMMIE RAYMOND . Facility:H1 Start: 01-03-2022 Encounter for genera l adult medical examination without abnormal findings DR FILIBERTO YING . [facility] Start: 12-31-2021 End: 01-01-[address] FILIBERTO YING . Facility:H1 Start: 12-31-2021 End: 01-01-2022 Encounter for general adult medical examination without abnormal findings DR FILIBERTO YING . Facility:H1 Start: 11-18-2021 End: 11-18-2021 Patient encounter procedure MD Filiberto Ying Work Phone: [facility]-MRI [place] Procedures Date Procedure Procedure Detail Performing Clinician [...] breast MD Filiberto Ying Work Phone: Start: 05-15-2023 Lumpectomy of breast MD Filiberto Ying Work Phone: Start: 04-05-2023 Mammography of left breast MD Filiberto Ying Work Phone: Start: 04-05-2023 Ultrasonography of b ilateral breasts MD Filiberto Ying Work Phone: Start: 04-05-2023 Core needle biopsy o f breast using ultrasound guidance MD Filiberto Ying Work Phone: Start: 12-28-2022 Echocardiography Aman Ying Work Phone: Start: 10-12-2022 Bilateral mammography M D Filiberto Ying Work Phone: Start: 10-12-2022 Ultrasonography of b ilateral breasts MD Filiberto Ying Work Phone: Start: 07-28-2022 Radex spine cervical 4 or 5 views Nayely Limon LINE RIDER.ACCOUNTS COLLECTOR Work Phone: Start: 07-28-2022 Radiologic exam chest 2 views Nayely Limon LINE RIDER.ACCOUNTS COLLECTOR Work Phone: Start: 11-18-2021 MRI of head MD Filiberto Ying Work Phone: Cholecystectomy Filiberto Aguilar Ho y Work Phone: Esophagogastroduodenoscopy D ouglas M Frany Work Phone: Hysterectomy Filiberto M Hoy Work Phone: Laparoscopy Filiberto M Stepan Work Phone: Tonsillectomy and adenoidectomy Filiberto M Hoy Work Phone: NEGATED: Highlighted row has not occurred! Total colonoscopy Filiberto Ying Work Phone: Plan of Treatment Date Care Activity Detail Author Start: 01-03-2030 Urine microalbumin profile [facility] Start: 04-14-2025 End: 04-14-2025 Patient encounter procedure 04/14/2025 8:30 AM EST Office Visit [facility] [address] [place] [address] Tommie Raymond, DO [address] [place] [address] [facility] Start: 02-06-2025 End: 02-06-2025 Patient encounter procedure Neurology Comment on above: botox Start: 01-27-2025 End: 01-27-2025 Patient encounter procedure 01/27/2025 4:00 PM EDT Office Visit [facility] [address] [place] [address] Ban Bedolla MD [address] [place] [address] [facility] Start: 01-21-2025 End: 01-21-2025 Patient encounter procedure 01/21/2025 8:00 AM EDT Office Visit [facility] [address] [place] [address] Ssi Irby MD [address] [facility] [address] [address] [facility] Start: 01-19-2025 Influenza vaccination Influenz a Vaccine (Season Ended) [facility] Start: 11-27-2024 End: 11-27-2024 Professional / ancillary services management 11/27/2024 7:15 AM EDT Ancillary Procedure [facility] MR [address] [facility] [place] [address] [facility] Start: 11-25-2024 End: 11-25-2024 Patient encounter procedure [facility] Comment on above: Arrived Start: 11-20-2024 End: 11-20-2025 MR Cervical spine WO contrast MR cervical spine wo contrast Imaging Routine Cervical dystonia RLS (restless legs syndrome) Expected: 11/20/2024, Expires: 11/20/2025 [facility] Work Phone: Comment on above: Expected: 11/20/2024 , Expires: 11/20/2025 Start: 11-20-2024 End: 11-20-2024 Patient encounter procedure [facility] Comment on above: Arrived Start: 11-11-2024 End: 11-11-2024 Patient encounter procedure 11/11/2024 11:35 AM EDT Office Visit [facility] [address] [place] [address] Ban Bedolla MD [address] [place] [address] Arrived [facility] Comment on above: Arrived Start: 10-29-2024 End: 10-29-2024 Patient encounter procedure 10/29/2024 4:30 PM EDT Office Visit Neurology [address] [address] Harman Sullivan MD [address] [facility] [address] [place], [place] [id number] F/u hold for botox Neurology Comment on above: F/u hold for botox Start: 07-30-2024 End: 07-30-2024 Patient encounter procedure 07/30/2024 4:30 PM EDT Office Visit Neurology [address] [address] Harman Sullivan MD [address] [facility] [facility] [address] [place], [place] [id number] Botox Neurology Comment on above: Botox Start: 07-29-2024 End: 07-29-2024 Patient encounter procedure 07/29/2024 8:35 AM EDT Office Visit [facility] [address] [place] [address] Nae Velez, LINE RIDER-ACCOUNTS COLLECTOR [address] [place] [address] [facility] Start: 06-17-2024 End: 06-17-2024 [facility] Start: 04-30-2024 End: 04-30-2024 Patient encounter procedure 04/30/2024 8:30 AM EST Office Visit Neurology [address] [address] Harman Sullivan MD [address] [facility] [address] [place], [place] [id number] Botox Neurology Comment on above: Botox Start: 01-30-2024 End: 01-30-2024 Patient encounter procedure 01/30/2024 2:00 PM EDT Office Visit Neurology [address] [facility] [address] [address] Harman Sullivan MD [address] [facility] [address] [place], [place] [address] Botox Neurology Comment on above: Botox Start: 01-20-2024 Covid-19 Vaccine ( season) Covid-19 Vaccine () [facility] Start: 01-20-2024 Covid-19 Vaccine () Covid-19 Vaccine () [facility] Start: 01-20-2024 Influenza vaccination [facility] Start: 11-06-2023 End: 11-06-2023 Patient encounter procedure 11/06/2023 10:30 AM EDT Office Visit Neurology [address] [facility] [address] [facility] [place] [place] [address] Harman Sullivan MD [address] [facility] [address] [place], [place] [id number] Three week follow up Neurology Comment on above: Three week follow up Start: 10-31-2023 End: 10-31-2023 Patient encounter procedure 10/31/2023 10:30 AM EDT Office Visit Neurology [address] [facility] [address] [address] Harman Sullivan MD [address] [facility] [address] [place], [place] [id number] Botox auth approved Neurology Comment on above: Botox auth approved Start: 09-21-2023 End: 09-21-2023 Patient encounter procedure 09/21/2023 8:30 AM EDT Office Visit Neurology [address] [facility] [address] [address] Harman Sullivan MD [address] [facility] [address] [place], [place] [id number] Cervical dystonia [G24.3] Neurology Comment on above: Cervical dystonia [G 24.3] Start: 05-21-2023 Behavioral Health Screening Behavioral Health Screening [facility] Start: 05-15-2023 [facility] Start: 05-15-2023 [facility] Start: 04-05-2023 [facility] Start: 03-16-2023 [facility], Provider: Soraya Cage, Status: Pen, Time: 1:00 PM [facility], Provider: Soraya Cage, Status: Pen, Time: 1:00 PM -[facility] 320 DO Work Phone: Start: 01-19-2023 Covid-19 Vaccine () Covid-19 Vaccine () [facility] Start: 01-19-2023 Influenza vaccination C [facility] Start: 01-12-2023 End: 03-14-2023 CBC panel - Blood by Automated count CBC Lab Routine RLS (restless legs syndrome) Expected: 01/12/2023, Expires: 03/14/2023 [facility] Work Phone: Comment on above: Expected: 01/12/2023 , Expires: 03/14/2023 Start: 01-12-2023 End: 03-14-2023 Cobalamin (Vitamin B12) [Mass/volume] in Serum or Plasma VITAMIN B12 BLOOD Lab Routine RLS (restless legs syndrome) Expected: 01/12/2023, Expires: 03/14/2023 [facility] Work Phone: Comment on above: Expected: 01/12/2023 , Expires: 03/14/2023 Start: 01-12-2023 End: 03-14-2023 Comprehensive metabolic 2000 panel - Serum or Plasma COMP METABOLIC PANEL Lab Routine RLS (restless legs syndrome) Expected: 01/12/2023, Expires: 03/14/2023 [facility] Work Phone: Comment on above: Expected: 01/12/2023 , Expires: 03/14/2023 Start: 01-12-2023 End: 03-14-2023 Ferritin [Mass/volume] in Serum or Plasma FERRITIN BLD Lab Routine RLS (restless legs syndrome) Expected: 01/12/2023, Expires: 03/14/2023 [facility] Work Phone: Comment on above: Expected: 01/12/2023 , Expires: 03/14/2023 Start: 01-12-2023 End: 03-14-2023 Iron and Iron binding capacity panel - Serum or Plasma IRON + TIBC Lab Routine RLS (restless legs syndrome) Expected: 01/12/2023, Expires: 03/14/2023 [facility] Work Phone: Comment on above: Expected: 01/12/2023 , Expires: 03/14/2023 Start: 11-14-2022 NPVRFRL, Provider: Soryaa Cage, Status: Pen, Time: 4:20 PM NPVRFRL, Provider: Soraya Cage, Status: Pen, Time: 4:20 PM [facility] Work Phone: Start: 11-10-2022 FUV, Provider: Saeed Castellanos, Status: Pen, Time: 8:50 AM FUV, Provider: Saeed Castellanos, Status: Pen, Time: 8:50 AM [facility] 250 DO Work Phone: Start: 10-23-2022 SURGPENDING SALE TO [facility], Provider: Romero Jones, Status: Pen, Time: 2:00 PM SURGNON, Provider: Romero Jones, Status: Pen, Time: 2:00 PM [facility] 250 DO Work Phone: Start: 09-29-2022 [facility], Provider : MOOKIE YOUNG HOME CARE AIDE 1,[id number], Status: Pen, Time: 1:00 PM [facility], Provider: MOOKIE YOUNG HOME CARE AIDE 1,[id number], Status: Pen, Time: 1:00 PM [facility] 250 DO Work Phone: Start: 05-21-2022 DEPRESSION ASSESSMENT DEPRESSION ASS ESSMENT [facility] Start: 01-19-2022 Influenza vaccination INFLUENZA (#1) [facility] Start: 2017 HPV TESTING HPV TESTING [facility] Start: 2017 Screening for malign ant neoplasm of cervix HPV Testing [facility] Start: 01-07-2008 PAP TESTING PAP TESTING [facility] Start: 01-07-2008 Screening for malign ant neoplasm of cervix [facility] Start: 2006 Hepatitis B Vaccine (1 of 3 - 19+ 3-dose series) Hepatitis B Vaccine (1 of 3 - 19+ 3-dose series) [facility] Start: 2005 Anxiety Screening Anxiety Screening [facility] Start: 2005 Depression Screening Depression Scre ening [facility] Start: 2005 HEPATITIS C SCREENING HEPATITIS C [facility] Start: 2005 Hepatitis C screening Hepatitis C [facility] Start: 2005 HIV SCREENING HIV SCREENING [facility] Start: 2005 HIV screening HIV Screening [facility] Start: 1987 COVID-19 VACCINE (#1) COVID-19 VACCI NE (#1) [facility] Start: 1987 HEPATITIS B (1 of 3 - 3-dose series) HEPATITIS B (1 of 3 - 3-dose series) [facility] Start: 1987 Hepatitis B Vaccine (1 of 3 - 3-dose series) Hepatitis B Vaccine (1 of 3 - 3-dose series) [facility] Patient Education [facility] Work Phone: Patient referral [facility] Work Phone: [facility] c Immunizations Immunization Date Immunization Notes Care Provider Alina treviño 01-04-2020 tetanus toxoid, redu hawa diphtheria toxoid, and acellular pertussis vaccine, adsorbed Xr A21 [facility] 07-27-2016 tetanus toxoid, redu hawa diphtheria toxoid, and acellular pertussis vaccine, adsorbed Xr A21 [facility] Payers Date Payer Category Payer Managed Care HMO (unspecified) [id number] 2022 Private Health Insurance [id number] 2022 Private Health Insurance [id number] 2022 Medicaid [place] [employer] [place] MED[place] [id number] 2022-Present [phone] [facility] [address] [place] [address] Medicaid [id number] 1987 Unknown [id number] 2.16.840.1.830968.3.579.2. 593 1987 Unknown [id number] 2.16.840.1.724961.3.579.2. 593 1987 Unknown [id number] 2.16.840.1.742911.3.579.2. 593 1987 Unknown [id number] 2.16.840.1.511120.3.579.2. 593 1987 Unknown [id number] 2.16.840.1.575559.3.579.2. 593 1987 Unknown [id number] 2.16.840.1.779072.3.579.2. 593 1987 Unknown [id number] 2.16.840.1.499194.3.579.2. 593 1987 Unknown [id number] 2.16.840.1.264222.3.579.2. 593 1987 Unknown [id number] 2.16.840.1.695651.3.579.2. 593 1987 Unknown [id number] 2.16.840.1.840794.3.579.2. 1068 1987 Unknown [id number] 2.16.840.1.466746.3.579.2. 356 1987 Unknown [id number] 2.16.840.1.608745.3.579.2. 356 1987 Unknown [id number] 2.16.840.1.676206.3.579.2. 356 1987 Unknown [id number] 2.16.840.1.622893.3.579.2. 356 1987 Unknown [id number] 2.16.840.1.448421.3.579.2. 356 1987 Unknown [id number] 2.16.840.1.433224.3.579.2. 356 1987 Unknown [id number] 2.16.840.1.062347.3.579.2. 356 1987 Unknown [id number] 2.16.840.1.879367.3.579.2. 196 1987 Unknown [id number] 2.16.840.1.482896.3.579.2. 1259 1987 Unknown [id number] 2.16.840.1.832565.3.579.2. 1259 1987 Unknown [id number] 2.16.840.1.594327.3.579.2. 1259 1987 Unknown [id number] 2.16.840.1.336800.3.579.2. 1259 1987 Unknown [id number] 2.16.840.1.696765.3.579.2. 1259 1959 Medicaid [id number] Medicaid Holder Advantage [id number] Self-pay Self Pay [id number] Unknown Makena BC/BS [id number] Unknown [id number] Unknown HCAP/HFA/FAP Active [id number] Social History Date Type Detail Facility Start: 12-24-2020 End: 02-06-2023 Tobacco smoking status NHIS Never smoked tobacco (finding) [facility] Start: 1985 Sex Assigned At Female F [facility] Start: 06-13-2012 End: 02-06-2023 Tobacco use and exposure Smokeless tobacco non-user [facility] Work Phone: Start: 07-28-2022 End: 10-29-2024 Alcohol intake Current non-drinker of alcohol (finding)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 educating the patient/family/caregiver. There is no problem list on file for this patient. No orders found for this visit on 09/04/23. Robert Menchaca MSN, LINE RIDER, DISTRIBUTION CENTER ASSISTANT-C documented in this encounter [facility] 02-19-2023 Miscellaneous Notes Images from the original note were not included. Robert Menchaca APRN.ACCOUNTS COLLECTOR You 1 minute ago (12:27 PM) Thank you. This is a normal value. PRATIBHA Louis, RN, BA Images from the original note were not included. Evonne GAMBOA BSN, RN, BA Scanned in medical records from [facility] for review documented in this encounter [facility] 02-09-2023 Miscellaneous Notes Images from the original note were not included. Robert Menchaca APRN.ZULMA You 2 minutes ago (10:23 AM) Reviewed. PRATIBHA Louis, RN, BA Scanneed in medical records from [facility] for review documented in this encounter [facility] 01-19-2023 Miscellaneous Notes Images from the original note were not included. Robert Menchaca APRN.ACCOUNTS COLLECTOR You 21 minutes ago (8:34 AM) I sent cyclobenzaprine (Flexeril) 5 mg at bedtime as needed PRATIBHA Mccullough, RN, BA documented in this encounter [facility] 01-12-2023 History of Present illness Narrative Brittanie Garcia is a 38 [...] Most likely receiving 65 units between procerus, sewing machine attachment tester, frontalis, and temporalis muscles. Only receiving 90 [...] Tizanidine Methocarbamol Metaxalone Carisoprodol She does have [employer] prescribed for the neck pain. 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 Finger extensor 5/5. Finger flexor 5/5. Pronation [...] clonus of ankles. Coordination: Finger-to- nose-finger and nrik-gw-otwz intact bilaterally. No ataxia of arms. No [...] seeing the movement disorder clinic here at [facility] for an opinion about her cervical [...] which included preparing to see the patient, itup-rb-xgbh patient care, completing clinical documentation, obtaining and/or reviewing separately obtained history, performing a medically appropriate examination, counseling and educating the patient/family/caregiver, and ordering medications, tests, or procedures. There is no problem list on file for this patient. Office Visit on 01/12/23 CBC FERRITIN BLD IRON + TIBC VITAMIN B12 BLOOD COMP METABOLIC PANEL CONSULT TO NEUROLOGY Robert Menchaca MSN, LINE RIDER, DISTRIBUTION CENTER ASSISTANT-C 1. The nursing staff and medical assistants [...] your PCP/referring physician documented in this encounter [facility] 08-11-2022 Instructions Nayely Limon APRN.ZULMA - 08/11/2022 10:44 AM EDT Please send MRI result to us. Placed a consult for neuromuscular. Please call [phone] for appointments. I would suggest to bring your MRI (CD) to this appointment. Placed a consult for functional medicine. Please call [phone] for appointments. Follow up as needed documented in this encounter [facility] 08-11-2022 History of Present illness Narrative Images from the original note were not included. Rheumatology FOLLOW UP VISIT Date of Service: 08/11/2022 Patient: Brittanie Garcia Medical Record: [id number] Primary Care Physician: Filiberto Ying MD Last Rheumatology visit: 07/28/2022 (with Nayely Limon) I have communicated my name and active licensure. The patient's identity and physical location were verified at the time of this visit. 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 Started Seeing pain management since April for headache and neck pain. She has [employer] takes once a week. Hx of restless [...] 5 5 Location Neck - Neck Description Aching;Dull;Sore;Spasm;Stiffness;T hrobbing;Tightness - Aching;Cramping;Dull;Sharp;Spasm;T hrobbing;Tightness Duration (#) 7 - 3 Duration (Timeframe) [...] Clinical Fibromyalgia Diagnostic Criteria questionnaire Questionnaire scores: [place] sleepiness scale: 15 (Normal < 10) MDQ (mood disorder questionnaire): 6 (Normal < 7) PHQ (patient health questionnaire): depression 10 (Normal < 5), anxiety 9 (Normal < 5) Fibromyalgia evaluation: Wide spread pain scale (WPI) 7, symptom severity (SS) 9 The patient meets the 2016 ACR ([place] [employer]) revised criteria for fibromyalgia [...] an optimal response to treatment. Nayely Limon APRN.ACCOUNTS COLLECTOR Return if symptoms worsen or fail to improve. I spent a total of 45 minutes on the date of the service which included preparing to see the patient, completing clinical documentation, obtaining and/or reviewing separately obtained history, performing a medically appropriate examination, counseling and educating the patient/family/caregiver, and ordering medications, tests, or procedures. ___ Nayely Limon APRN.CNP Rheumatology Date: August 11, 2022 Time: 8:44 AM documented in this encounter [facility] 07-28-2022 Instructions Nayely Limon APRN.CNP - 07/28/2022 1:58 PM EST Obtain lab and XR today Follow up in 10-14 days documented in this encounter [facility] 07-28-2022 History of Present illness Narrative Images from the original note were not included. Rheumatology CONSULTATION Date of Service: 07/28/2022 Patient: Brittanie Garcia Medical Record: [id number] Primary Care Physician: Filiberto Ying MD, MD Last Rheumatology visit: 07/28/2022 (with Nayely Limon) Referring Provider: Kenna Sheehan [address] [place] [address] Brittanie Garcia is here today at request of Kenna Sheehan PA-C specifically for consultation of my opinion in regards to the chief complaint listed below. 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 Started Seeing pain management since April for headache and neck pain. She has [employer] takes once a week. Hx of restless [...] Score 6 5 Location Neck - Description Aching;Dull;Sore;Spasm;Stiffness;T hrobbing;Tightness - Duration (#) 7 - Duration (Timeframe) [...] Take 1 mg by mouth once daily. Sxyubhaj-Lm-Kad-Fe-FA (P-D PLUS) Tab Take 1 tablet by [...] Antibodies Latest Ref Rng & Units 07/28/2022 MGADA Negative Negative Imaging Last XR Chest - [...] - XR CHEST 2V FRONTAL/LAT Nayely Limon APRN.ACCOUNTS COLLECTOR Return in about 10 days (around 08/07/2022). I spent a total of 75 minutes on the date of the service which included preparing to see the patient, fzzk-pi-rtbf patient care, completing clinical documentation, obtaining and/or reviewing separately obtained history, performing a medically appropriate examination, counseling and educating the patient/family/caregiver, and ordering medications, tests, or procedures. Medical Decision Making: Problems: Low: Stable chronic illness Data: Unique test(s) ordered: 3+ Assessment requiring an independent historian(s) Risk: Moderate: Moderate risk from testing/treatment Medical Decision Making Level: 4 - Moderate ___ Nayely Limon APRN.ACCOUNTS COLLECTOR Rheumatology Date: July 26, 2022 Time: 2:07 PM documented in this encounter [facility] 07-06-2022 Note CONSULTATION CONSULTATION DATE: 07/06/2022 [...] no difference. She was also started on [employer] 5/325 daily p.r.n., which she says is helpful. We obtained a cervical x-ray back in January, which shows very minimal pathology between C2 and C3 discs. At this time, procedures are not indicated. Medications includes [employer] 5/325 daily, baclofen 10 mg b.i.d., Ambien [...] time, our clinic will just maintain her [employer] 5/325 daily p.r.n. She will continue for treatments with [facility]. I did recommend, however, to continue with self massage and to trial home cervical traction. We will see the patient in three months' time to maintain her medications and patient is in agreement. [facility] 04-06-2022 Note CONSULTATION PAIN MANAGEMENT CONSULTATION CONSULTATION [...] stated that today she has seen an plate worker helper due to having lock jaw episodes. 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 She describes her [...] as she agrees to this plan. [facility] 03-02-2022 Note CONSULTATION CONSULTATION DATE: 03/02/2022 HISTORY [...] Activities such as pushing, pulling, lying down, garment supervisor hours and housework aggravate her pain. [...] and all questions are answered today. [facility] 02-16-2022 Note CONSULTATION CONSULTATION DATE: 02/16/2022 HISTORY [...] worsened at that time. 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 Sis Irby in the past, which she states [...] Patient is in agreement to this. [facility] Chief complaint Narrative - Reported BRITTANIE GARCIA [...] is no interventional necessity at this time [facility] [address] DO Work Phone: Chief [...] is no interventional necessity at this time [facility] Work Phone: Chief complaint Narrative - [...] Notably she has no rebound tachycardia.Recommendations, obtain Lifetable monitoring, tilt table test, refer to either EP or syncope clinic, I can follow-up on a as needed basis, as there is no interventional necessity at this time [facility] [address] DO Work Phone: Chief [...] Notably she has no rebound tachycardia.Recommendations, obtain Lifetable monitoring, tilt table test, refer to either EP or syncope clinic, I can follow-up on a as needed basis, as there is no interventional necessity at this time [facility] Work Phone: Evaluation note No assessment inform ation available [facility] Work Phone: Evaluation note Diagnosis Neck pain, chronic Cervicalgia [facility] Diagnosis Neck pain, chronic- Primary Cervicalgia [facility] Diagnosis Neck pain, chronic- Primary Cervicalgia Fibromyalgia Mylagia and myositis, unspecified [facility] Diagnosis Cervical dystonia- Primary Spasmodic torticollis Neck tightness Unspecified musculoskeletal disorders and symptoms referable to neck RLS (restless legs syndrome) Restless legs syndrome (RLS) [facility]* Diagnosis Onset Date Resolution Status Left breast mass acute [facility] Work Phone: Evaluation note* Diagnosis Cervical dystonia- Primary Spasmodic torticollis [facility] Diagnosis Chronic migraine without aura, with intractable migraine, so stated, with status migrainosus- Primary Neck pain Cervicalgia RLS (restless legs syndrome) Restless legs syndrome (RLS) [facility]* Diagnosis Chronic migraine without aura, with intractable migraine, so stated, with status migrainosus- Primary Neck pain Cervicalgia [facility] Diagnosis Chronic migraine without aura, with intractable migraine, so stated, with status migrainosus- Primary Neck pain Cervicalgia [facility]* Diagnosis Fibroadenoma of breast, right- Primary documented in this encounter [facility]* Diagnosis Chronic migraine without aura, with intractable migraine, so stated, with status migrainosus- Primary Neck pain Cervicalgia [facility]* Diagnosis Onset Date Resolution Status Admit Date Cervical spondylosis acute October 22, 2024 3:41pm Headache, chronic migraine w ithout aura, intractable acute October 22, 2024 3:41pm Occipital neuralgia acute October 22, 2024 3:41pm Other chronic pain acute October 222024 3:41pm [facility] Work Phone: Evaluation note* Diagnosis Other rosacea- Primary [facility]* Diagnosis Other rosacea- Primary Inflamed skin tag documented in this encounter [facility]* Diagnosis Cervical dystonia- Primary Spasmodic torticollis RLS (restless legs syndrome) Restless legs syndrome (RLS) documented in this encounter [facility] Discharge instructions Additional Instructions DISCHARGE INSTRUCTIONS FOR [...] directed for pain unless a prescription was provided.[facility] Work Phone: Hospital Discharge instructions Additional [...] directed for pain unless a prescription was provided.[facility] Work Phone: Hospital Discharge instructions Additional Instructions If your symptoms return/worsen or you develop any further concerns or symptoms please see your doctor or return to the emergency department immediately. It is imperative that you go over today's visit and all results with your primary care provider.[facility] Work Phone: Reason for referral (narrative)* Diagnostic Procedure Only (Routine) - Closed Specialty Diagnoses / Procedures Referred By Contac t Referred To Contact XR IMAGING Diagnoses Neck pain, chronic Procedures XR CERV OTHER 4V AP/LAT/OBL RADEX SPINE CERVICAL 4 OR 5 VIEWS Nayely Limon APRN.ACCOUNTS COLLECTOR [address] [place] [address] Xr Imaging Referral ID Status Reason Start Date Expiration Date V isits Requested Visits Authorized [id number] Closed Auto-Generate d Referral 07/28/2022 08/27/2023 1 1 [facility] for referral (narrative)* Diagnostic Procedure Only (Routine) - Closed Specialty Diagnoses / Procedures Referred By Contac t Referred To Contact XR IMAGING Diagnoses Neck pain, chronic Procedures XR CERV OTHER 4V AP/LAT/OBL RADEX SPINE CERVICAL 4 OR 5 VIEWS Nayely Limon APRN.CNP [address] [place] [address] Xr Imaging Referral ID Status Reason Start Date Expiration Date V isits Requested Visits Authorized [id number] Closed Auto-Generate d Referral 07/28/2022 08/27/2023 1 1 [facility] for visit Narrative* Diagnostic Procedure Only (Routine) - Closed Specialty Diagnoses / Procedures Referred By Contac t Referred To Contact XR IMAGING Diagnoses Neck pain, chronic Procedures XR CERV OTHER 4V AP/LAT/OBL RADEX SPINE CERVICAL 4 OR 5 VIEWS Nayely Limon, LONNY.ACCOUNTS COLLECTOR [address] [address] Xr Imaging Referral ID Status Reason Start Date Expiration Date V isits Requested Visits Authorized [id number] Closed Auto-Generate d Referral 07/28/2022 08/27/2023 1 1 [facility] Chief Complaint and Reason for Visit [...] :44pm neck spams, back pain, cough, fever [facility] 2024 7:42am Chief Complaint Admit Date Neck Spasms June 19, 2024 1 :44pm neck spams, back pain, cough, fever [facility] 2024 7:42am chest pain/rt rib & arm pain September 17, 2024 5:00am Chief Complaint Admit Date neck spams, back pain, cough, fever [facility] 2024 7:42am chest pain/rt rib & arm pain September 17, 2024 5:00am Ref Dr Hoy neck pain October 22, 2024 3:41 pm Reason for Visit Admit Date Cervical spondylosis October 22, 2024 3:41 pm Headache, chronic migraine without aura, intractable October 22, 2024 3:41pm Occipital neuralgia October 22, 2024 3:41p m Other chronic pain October 22, 2024 3:41p m Advance Directives No Advanced Directives Records Found Advance Directive Response Recorded Date/ Time Advance Directives No August 04 7:56am Advance Directive Response Recorded Date/ Time Advance Directives No August 04 6:56am Reason for Referral Specialty Diagnoses / Procedures Referred By Contac t Referred To Contact Neurology Diagnoses Neck pain, chronic Procedures CONSULT TO NEUROLOGY OFFICE/OUTPATIENT [facility] 60-74 MINUTES Nayely Limon APRN.ACCOUNTS COLLECTOR [address] [place], [place] [id number] Referral ID Status Reason Start Date Expiration Date Visits Requested Visits Authorized [id number] Authorized PCP Requested Referral 08/11/2022 08/11/2023 1 1 Specialty Diagnoses / Procedures Referred By Contac t Referred To Contact Diagnoses Fibromyalgia Procedures CONSULT TO FUNCTIONAL MEDICINE OFFICE/OUTPATIENT [facility] 60-74 MINUTES Nayely Limon APRN.ACCOUNTS COLLECTOR [address] [place] [address] Referral ID Status Reason Start Date Expiration Date Visits Requested Visits Authorized [id number] Authorized PCP Requested Referral 08/11/2022 08/11/2023 1 1 Specialty Diagnoses / Procedures Referred By Contac t Referred To Contact Neurology Diagnoses Cervical dystonia Neck tightness Procedures CONSULT TO NEUROLOGY OFFICE/OUTPATIENT [facility] 60-74 MINUTES Robert Menchaca, LINE RIDER.ACCOUNTS COLLECTOR [id number] [place] [id number] Referral ID Status Reason Start Date Expiration Date Visits Requested Visits Authorized [id number] Pending Review PCP Requested Referral 01/12/2023 01/12/2024 1 1 Specialty Diagnoses / Procedures Referred By Contac t Referred To Contact Neurology Diagnoses Cervical dystonia Procedures CONSULT TO NEUROLOGY OFFICE/OUTPATIENT [facility] 60 MINUTES Robert Menchaca, LINE RIDER.ACCOUNTS COLLECTOR [phone] [place] [id number] Referral ID Status Reason Start Date Expiration Date Visits Requested Visits Authorized [id number] Authorized PCP Requested Referral 09/04/2023 09/03/2024 1 [...] Active Kenna Sheehan PA-C Attending Provider Active Rink Rat Relationship Specialty Start Date End Date Filiberto Ying MD PCP - General Family Medicine 06/05/12 Kenna Sheehan PA-C [address] [place] [address] Referring Neurology 07/19/22 Rink Rat Relationship Specialty Start Date End Date Filiberto Ying MD PCP - General Family Medicine 06/05/12 Kenna Sheehan PA-C [address] [place] [address] Referring Neurology 07/19/22 Rink Rat Relationship Specialty Start Date End Date Filiberto Ying MD PCP - General Family Medicine 06/05/12 Kenna Sheehan PA-C [address] [place] [id number] Referring Neurology 07/19/22 Rink Rat Relationship Specialty Start Date End Date Filiberto Ying MD PCP - General Family Medicine 06/05/12 Kenna Sheehan PA-C [address] [place] [id number] Referring Neurology 07/19/22 Rink Rat Relationship Specialty Start Date End Date Filiberto Ying MD PCP - General Family Medicine 06/05/12 Kenna Sheehan PA-C [address] [place] [id number] Referring Neurology 07/19/22 Rink Rat Relationship Specialty Start Date End Date Filiberto Ying MD PCP - General Family Medicine 06/05/12 Kenna Sheehan PA-C [address] [place] [phone] Referring Neurology 07/19/22 Rink Rat Relationship Specialty Start Date End Date Filiberto Ying MD PCP - General Family Medicine 06/05/12 Kenna Sheehan PA-C [address] [address] Referring Neurology 07/19/22 Team Status: Inactive Member Role Status Dates Filiberto Ying MD Primary Care Provider Active Robert Menchaca APRN DISTRIBUTION CENTER ASSISTANT-BC Attending Provider Active Rink Rat Relationship Specialty Start Date End Date Filiberto Ying MD PCP - General Family Medicine 06/05/12 Kenna Sheehan PA-C [address] [address] Referring Neurology 07/19/22 Rink Rat Relationship Specialty Start Date End Date Filiberto Ying MD PCP - General Family Medicine 06/05/12 Kenna Sheehan PA-C [address] [place] [phone] Referring Neurology 07/19/22 Rink Rat Relationship Specialty Start Date End Date Filiberto Ying MD PCP - General Family Medicine 06/05/12 Kenna Sheehan PA-C [address] [place] [id number] Referring Neurology 07/19/22 Rink Rat Relationship Specialty Start Date End Date Filiberto Ying MD PCP - General Family Medicine 06/05/12 Kenna Sheehan PA-C [address] [address] Referring Neurology 07/19/22 Rink Rat Relationship Specialty Start Date End Date Filiberto Ying MD PCP - General Family Medicine 06/05/12 Kenna Sheehan PA-C [address] [place] [phone] Referring Neurology 07/19/22 Rink Rat Relationship Specialty Start Date End Date Filiberto Ying MD PCP - General Family Medicine 06/05/12 Kenna Sheehan PA-C [address] [place] [phone] Referring Neurology 07/19/22 Rink Rat Relationship Specialty Start Date End Date Filiberto Ying MD PCP - General Family Medicine 06/05/12 Kenna Sheehan PA-C [address] [address] Referring Neurology 07/19/22 Team Status: Inactive Member Role Status Dates Filiberto Ying MD Primary Care Provider Active Start: January 28, 2024 End: January 28, 2024 Dano Pyle DO Attending Provider Active Start: January 28, 2024 End: January 28, 2024 Rink Rat Relationship Specialty Start Date End Date Filiberto Ying MD PCP - General Family Medicine 06/05/12 Kenna Sheehan PA-C [address] [address] Referring Neurology 07/19/22 Team Status: Inactive Member [...] June 19, 2024 End: June 19, 2024 Rink Rat Relationship Specialty Start Date End Date Filiberto Ying MD [address] [place] [address] PCP - General Family Medicine 12/12/22 Rink Rat Relationship Specialty Start Date End Date Filiberto Ying MD PCP - General Family Medicine 06/05/12 Kenna Sheehan PA-C [address] [address] Referring Neurology 07/19/22 Team Status: Inactive Member [...] September 17, 2024 End: September 17, 2024 Team Status: Inactive Member Role Status Dates Filiberto Ying MD Primary Care Provider Active Start: October 22, 2024 End: October 22, 2024 Anthony Betancur MD Attending Provider Active Sta rt: October 22, 2024 End: October 22, 2024 Rink Rat Relationship Specialty Start Date End Date Filiberto Ying MD PCP - General Family Medicine 06/05/12 Kenna Sheehan PA-C [address] [place], [place] [phone] Referring Neurology 07/19/22 Rink Rat Relationship Specialty Start Date End Date Filiberto Ying MD PCP - General Family Medicine 12/12/22 Rink Rat Relationship Specialty Start Date End Date Filiberto Ying MD PCP - General Family Medicine 12/12/22 Rink Rat Relationship Specialty Start Date End Date Filiberto Ying MD [address] [place] [address] PCP - General Family Medicine 12/12/22 Rink Rat Relationship Specialty Start Date End Date Filiberto Ying MD [address] [place] [address] PCP - General Family Medicine 12/12/22 Rink Rat Relationship Specialty Start Date End Date Filiberto Ying MD [address] [place] [address] PCP - General Family Medicine 12/12/22 Rink Rat Relationship Specialty Start Date End Date Filiberto Ying MD [address] [place] [address] PCP - General Family Medicine 12/12/22 Goals (unrecognized section and content) Goals may [...] or prosecute any alcohol or drug abuse patient.[facility] HospitalIn the event this information is protected by the Federal Confidentiality of Alcohol and Drug Abuse Patient Records regulations: The Federal rules restrict any use of the information to criminally investigate or prosecute any alcohol or drug abuse patient.[facility] HospitalIn the event this information is protected by the Federal Confidentiality of Alcohol and Drug Abuse Patient Records regulations: The Federal rules restrict any use of the information to criminally investigate or prosecute any alcohol or drug abuse patient.[facility] HospitalIn the event this information is protected by the Federal Confidentiality of Alcohol and Drug Abuse Patient Records regulations: The Federal rules restrict any use of the information to criminally investigate or prosecute any alcohol or drug abuse patient.[facility] HospitalIn the event this information is protected by the Federal Confidentiality of Alcohol and Drug Abuse Patient Records regulations: The Federal rules restrict any use of the information to criminally investigate or prosecute any alcohol or drug abuse patient.[facility] HospitalIn the event this information is protected by the Federal Confidentiality of Alcohol and Drug Abuse Patient Records regulations: The Federal rules restrict any use of the information to criminally investigate or prosecute any alcohol or drug abuse patient.[facility] HospitalIn the event this information is protected by the Federal Confidentiality of Alcohol and Drug Abuse Patient Records regulations: The Federal rules restrict any use of the information to criminally investigate or prosecute any alcohol or drug abuse patient.[facility] HospitalIn the event this information is protected by the Federal Confidentiality of Alcohol and Drug Abuse Patient Records regulations: The Federal rules restrict any use of the information to criminally investigate or prosecute any alcohol or drug abuse patient.[facility] HospitalIn the event this information is protected by the Federal Confidentiality of Alcohol and Drug Abuse Patient Records regulations: The Federal rules restrict any use of the information to criminally investigate or prosecute any alcohol or drug abuse patient.[facility] HospitalIn the event this information is protected by the Federal Confidentiality of Alcohol and Drug Abuse Patient Records regulations: The Federal rules restrict any use of the information to criminally investigate or prosecute any alcohol or drug abuse patient.[facility] HospitalIn the event this information is protected by the Federal Confidentiality of Alcohol and Drug Abuse Patient Records regulations: The Federal rules restrict any use of the information to criminally investigate or prosecute any alcohol or drug abuse patient.[facility] HospitalIn the event this information is protected by the Federal Confidentiality of Alcohol and Drug Abuse Patient Records regulations: The Federal rules restrict any use of the information to criminally investigate or prosecute any alcohol or drug abuse patient.[facility] HospitalIn the event this information is protected by the Federal Confidentiality of Alcohol and Drug Abuse Patient Records regulations: The Federal rules restrict any use of the information to criminally investigate or prosecute any alcohol or drug abuse patient.[facility] HospitalIn the event this information is protected by the Federal Confidentiality of Alcohol and Drug Abuse Patient Records regulations: The Federal rules restrict any use of the information to criminally investigate or prosecute any alcohol or drug abuse patient.[facility] HospitalIn the event this information is protected by the Federal Confidentiality of Alcohol and Drug Abuse Patient Records regulations: The Federal rules restrict any use of the information to criminally investigate or prosecute any alcohol or drug abuse patient.[facility] HospitalIn the event this information is protected by the Federal Confidentiality of Alcohol and Drug Abuse Patient Records regulations: The Federal rules restrict any use of the information to criminally investigate or prosecute any alcohol or drug abuse patient.[facility] HospitalIn the event this information is protected by the Federal Confidentiality of Alcohol and Drug Abuse Patient Records regulations: The Federal rules restrict any use of the information to criminally investigate or prosecute any alcohol or drug abuse patient.[facility] HospitalIn the event this information is protected by the Federal Confidentiality of Alcohol and Drug Abuse Patient Records regulations: The Federal rules restrict any use of the information to criminally investigate or prosecute any alcohol or drug abuse patient.[facility] HospitalIn the event this information is protected by the Federal Confidentiality of Alcohol and Drug Abuse Patient Records regulations: The Federal rules restrict any use of the information to criminally investigate or prosecute any alcohol or drug abuse patient.[facility] HospitalIn the event this information is protected by the Federal Confidentiality of Alcohol and Drug Abuse Patient Records regulations: The Federal rules restrict any use of the information to criminally investigate or prosecute any alcohol or drug abuse patient.[facility] HospitalIn the event this information is protected by the Federal Confidentiality of Alcohol and Drug Abuse Patient Records regulations: The Federal rules restrict any use of the information to criminally investigate or prosecute any alcohol or drug abuse patient.[facility] HospitalIn the event this information is protected by the Federal Confidentiality of Alcohol and Drug Abuse Patient Records regulations: The Federal rules restrict any use of the information to criminally investigate or prosecute any alcohol or drug abuse patient.[facility] HospitalIn the event this information is protected by the Federal Confidentiality of Alcohol and Drug Abuse Patient Records regulations: The Federal rules restrict any use of the information to criminally investigate or prosecute any alcohol or drug abuse patient.[facility] HospitalIn the event this information is protected by the Federal Confidentiality of Alcohol and Drug Abuse Patient Records regulations: The Federal rules restrict any use of the information to criminally investigate or prosecute any alcohol or drug abuse patient.[facility] HospitalIn the event this information is protected by the Federal Confidentiality of Alcohol and Drug Abuse Patient Records regulations: The Federal rules restrict any use of the information to criminally investigate or prosecute any alcohol or drug abuse patient.[facility] Reason for Visit (unrecogniz ed section and content) Reason Comments Botox Injection Specialty Diagnoses / Procedures Referred By Contac t Referred To Contact Neurology / ADULT NEUROLOGY Diagnoses Chronic migraine without aura, intractable, with status migrainosus F/u hold for botox Procedures BOTULINUM TOXIN A PER 1 UNIT EST NI PATIENT Harman Sullivan MD Phone: tel: fax: Harman Sullivan MD [address] [place] [address] Phone: tel: fax: Referral ID Status Reason Start Date Expiration Date V isits Requested Visits Authorized [id number] Authorized 10/15/2024 10/14/2025 99 99 Reason Comments Neck Pain Reason Comments Neck Pain Follow up Reason Comments New Patient Reason Comments Results [facility] Reason Comments Results [facility] Reason Comments Follow Up Reason Onset Date Comments Refill Request 09/15/2023 Reason Comments Request Outside Medical Records Reason Comments Cervical Dystonia Specialty Diagnoses / Procedures Referred By Contac t Referred To Contact Neurology Diagnoses Cervical dystonia Procedures CONSULT TO NEUROLOGY OFFICE/OUTPATIENT [facility] 60 MINUTES Robert Menchaca APRN.[employer] [id number] [place] [address] Referral ID Status Reason Start Date Expiration Date V isits Requested Visits Authorized [id number] Closed PCP Requested Referral 09/04/2023 09/03/2024 1 1 Reason Onset Date Comments Refill Request 10/18/2023 Reason Comments Insurance Authorization Botox Specialty Diagnoses / Procedures Referred By Contac t Referred To Contact ADULT NEUROLOGY Diagnoses Chronic migraine without aura, intractable, with status migrainosus Procedures BOTULINUM TOXIN A PER 1 UNIT CHEMODERVATE FACIAL/TRIGEM/CERV MUSC MIGRAINE Harman Sullivan MD [address] [address] [place] [address] [facility] Chris [address] [address] Referral ID Status Reason Start Date Expiration Date V isits Requested Visits Authorized [id number] Authorized 10/11/2023 10/14/2024 99 99 Reason Comments Appointment Reason Comments 1st po Exc. bilateral breast masses Specialty Diagnoses / Procedures Referred By Contac t Referred To Contact General Surgery Diagnoses Hospital followup status post surgery Procedures [place] [facility] [address] [place] [address] Dano Pyle, [address] [address] Phone: tel: fax: Referral ID Status Reason Start Date Expiration Date Visits Re quested Visits Authorized [id number] Closed 06/17/2024 12/14/2024 1 1 Specialty Diagnoses / Procedures Referred By Contac t Referred To Contact ADULT NEUROLOGY Diagnoses Chronic migraine without aura, intractable, with status migrainosus Procedures BOTULINUM TOXIN A PER 1 UNIT CHEMODERVATE FACIAL/TRIGEM/CERV MUSC MIGRAINE Harman Sullivan MD [address] [facility] [facility] [address] [address] [address] Phone: tel: fax: Neurology [address] [facility] [address] [address] Phone: tel: fax: Referral ID Status Reason Start Date Expiration Date Visits Requested Visits Authorized [id number] Authorized Financial Clearance Required - [employer] 10/11/2023 10/14/2024 99 99 Reason Comments Follow-up INFORMATION SOURCE (unrecogn ized section and content) DATE CREATED AUTHOR 09/07/2022 [facility] DATE CREATED AUTHOR AUTHOR'S ORGANIZ ATION 11/15/2022 [employer] DATE CREATED AUTHOR AUTHOR'S ORGANIZ ATION 01/01/2023 [facility] DATE CREATED AUTHOR AUTHOR'S ORGANIZ ATION 02/04/2023 [facility] DATE CREATED AUTHOR AUTHOR'S ORGANIZ ATION 02/22/2024 [facility] DATE CREATED AUTHOR AUTHOR'S ORGANIZ ATION 09/18/2024 [facility] DATE CREATED AUTHOR AUTHOR'S ORGANIZ ATION 11/01/2024 [facility] DATE CREATED AUTHOR AUTHOR'S ORGANIZ ATION 12/04/2024 [facility] d[facility] Special[facility] FOR RECORDS PERTAINING TO PATIENTS WHO ARE [...] BE BASED ON THE PRIMARY CLINICAL RECORDS. [facility] [employer] provides no warranty or guarantee of the accuracy or completeness of information in this document.
--- NOTE | 2024-12-09 00:45 | ED.NECK1 ---
HPI HPI - Neck Pain/Injury General Chief Complaint: Neck Pain/Injury Stated Complaint: NECK SPASMS Time Seen by Provider: 12/09/24 00:32 Source: patient Mode of arrival: walk-in Limitations: no limitations History of Present Illness HPI Narrative: chronic recurrent neck spasm for over 30 years. Now presents with acute flare of neck spasm the past couple of days. increased pain tonight. Emesis due to pain en route. Neg numbness or weakness of her extremities. No headache or fever. Spasm similar to past flare ups Related Data Home Medications �Medication �Instructions �Recorded �Confirmed diazepam 10 mg tablet 10 mg PO DAILY PRN muscle spasm 03/21/23 10/08/24 pramipexole 1 mg tablet (Mirapex) 1 mg PO DAILY 03/21/23 12/09/24 ciprofloxacin HCl 500 mg tablet mg 12/09/24 metronidazole 500 mg tablet mg 12/09/24 minocycline 100 mg capsule mg 12/09/24 Allergies Allergy/AdvReac Type Severity Reaction Status Date / Time caffeine Allergy Mild Vomiting Verified 12/09/24 00:31 adhesive Allergy Blister Verified 12/09/24 00:31 dihydroergotamine Allergy Difficulty Verified 12/09/24 00:31 Breathing metoclopramide (From Reglan) Allergy Cramping Verified 12/09/24 00:31 of the Muscles metoprolol Allergy Swelling Verified 12/09/24 00:31 of Lip/Tongue/Throat promethazine (From Phenergan) Allergy Unknown Verified 12/09/24 00:31 Opioid HPI Opioid Management Most Recent Opioid Data: Last Pain Scale 7 Today, 02:33 Last ED Pain Assessment Today, 01:15 Review of Systems ROS Status of ROS 10 or more systems reviewed and unremarkable except as noted in history and below PFSH PFSH Social History Smoking status: Never smoker Little interest or pleasure in doing things: not at all Feeling down, depressed, or hopeless: not at all Exam Constitutional Vital Signs, click to edit/add: Last Vital Signs Temp 98.7 F 12/09/24 00:25 Pulse 85 12/09/24 00:25 Resp 18 12/09/24 00:25 BP 141/94 H 12/09/24 00:25 Pulse Ox 99 12/09/24 00:25 O2 Del Method Room Air 12/09/24 00:25 Common normals: no apparent distress, average body habitus, oriented x3, no limitations, healthy appearing, alert and well nourished [facility] Common normals: normocephalic and head/scalp atraumatic Eye Common normals: EOMs intact bilaterally and conjunctivae normal Neck & C-Spine Other: resist ROM of neck due to pain Respiratory Common normals: normal respiratory effort, no retractions, no use of accessory muscles and clear to auscultation bilaterally Cardio Common normals: regular rate, regular rhythm, S1 normal heart sound and S2 normal heart sound GI Common normals: Normal to inspection, nondistended, normoactive bowel sounds present, soft to palpation and non-tender Extremity Common normals: normal to inspection and full ROM Neuro Common normals: oriented x3, CN's II-XII intact bilaterally, moves all extremities and no focal motor deficits Psych Appearance: grossly normal Course Vital Signs Vital signs: Vital Signs Temperature 98.7 F 12/09/24 00:25 Pulse Rate 85 12/09/24 00:25 Respiratory Rate 18 12/09/24 00:25 Blood Pressure 141/94 H 12/09/24 00:25 Pulse Oximetry 99 12/09/24 00:25 Oxygen Delivery Method Room Air 12/09/24 00:25 Temperature 98.7 F 12/09/24 00:25 Pulse Rate 85 12/09/24 00:25 Respiratory Rate 18 12/09/24 00:25 Blood Pressure 141/94 H 12/09/24 00:25 Pulse Oximetry 99 12/09/24 00:25 Oxygen Delivery Method Room Air 12/09/24 00:25 MDM - Neck Pain/Injury MDM Narrative Medical decision making narrative: patient has chronic neck spasm for years. Presents with acute flare of her neck spasm. Similar to past episodes. No associated paresthesia of the upper or lower extremities. labs WNL. Patient medicated and her pain is now tolerable. She has a soft collar at home she can use when she gets home. She is to follow up with Dr Obrien Lab Data Labs: Lab Results 12/09/24 Range/Units 01:10 WBC 6.1 (4.0-11.0) 10^3/uL RBC 4.72 (4.20-5.40) 10^6/uL Hgb 14.1 (12.0-16.0) g/dL Hct 42.0 (36.0-48.0) % MCV 89.0 (81.0-99.0) fL MCH 29.9 (26.7-34.0) pg MCHC 33.6 (29.9-35.2) g/dL RDW 12.9 (11.0-15.0) % Plt Count 253 (150-450) 10^3/uL MPV 9.2 L (9.5-13.5) fL Neut % (Auto) 54.8 (43.0-75.0) % Lymph % (Auto) 37.1 (20.5-60.0) % [place] % (Auto) 5.8 (1.7-12.0) % Eos % (Auto) 1.8 (0.9-7.0) % Baso % (Auto) 0.3 (0.2-2.0) % Neut # (Auto) 3.3 (1.4-6.5) 10^3/uL Lymph # (Auto) 2.3 (1.2-3.8) 10^3/uL [place] # (Auto) 0.4 (0.3-0.8) 10^3/uL Eos # (Auto) 0.1 (0.0-0.7) 10^3/uL Baso # (Auto) 0.0 (0.0-0.1) 10^3/uL Abs Immat Gran (auto) 0.01 (0.00-0.03) 10^3/uL Imm/Tot Granulo (auto) 0.2 (0.0-0.5) % Sodium 142 (136-145) mmol/L Potassium 3.4 L (3.5-5.1) mmol/L Chloride 105 (98-107) mmol/L Carbon Dioxide 29.4 (21.0-32.0) mmol/L Anion Gap 11.0 BUN 15.0 (7.0-18.0) mg/dL Creatinine 0.72 (0.55-1.02) mg/dL Est GFR ( Amer) >60 (>=60 mL/min/1.73m^2) Est GFR (Non-Af Amer) >60 (>=60 mL/min/1.73m^2) BUN/Creatinine Ratio 20.8 Glucose 94 (74-106) mg/dL Calcium 9.5 (8.5-10.1) mg/dL C-Reactive Protein <0.50 (<=0.50) mg/dL Discharge Plan Discharge Chief Complaint: Neck Pain/Injury Clinical Impression: Neck pain Patient Disposition: Home, Self-Care Prescriptions / Home Meds: No Action diazepam 10 mg tablet 10 mg PO DAILY PRN (Reason: muscle spasm) pramipexole [Mirapex] 1 mg tablet 1 mg PO DAILY minocycline 100 mg capsule metronidazole 500 mg tablet ciprofloxacin HCl 500 mg tablet Print Language: Japanese Instructions: Acute Neck Pain (ED) Additional Instructions: follow up with Dr Obrien in next 2-3 days. wear your soft collar Referrals: Danny Obrien MD [Primary Care Provider, Family Practice] - 1 week
[2024-12-09] MEDS: MAGNESIUM SULFATE IN WATER 2 GM/50 ML PREMIX IV (01:05)
[2024-12-09] MEDS: KETOROLAC TROMETHAMINE 30 MG/ML VIAL IVP (01:05)
[2024-12-09] MEDS: DIAZEPAM 10 MG/2 ML SYRINGE 5 MG IV (01:05)
[2024-12-09 01:15] LABS: Hematocrit 42.0 % (36.0-48.0); Hemoglobin 14.1 g/dL (12.0-16.0); Immature Granulocytes Abs Auto 0.01 10^3/uL (0.00-0.03); Immature Granulocytes Pct Auto 0.2 % (0.0-0.5); Lymphocytes Absolute Auto 2.3 10^3/uL (1.2-3.8); Mean Corpuscular HGB Conc 33.6 g/dL (29.9-35.2); Mean Corpuscular Hemoglobin 29.9 pg (26.7-34.0); Mean Corpuscular Volume 89.0 fL (81.0-99.0); Platelet Count 253 10^3/uL (150-450); Red Blood Count 4.72 10^6/uL (4.20-5.40); White Blood Count 6.1 10^3/uL (4.0-11.0)
[2024-12-09 01:27] LABS: Anion Gap 11.0; Blood Urea Nitrogen 15.0 mg/dL (7.0-18.0); Calcium 9.5 mg/dL (8.5-10.1); Carbon Dioxide 29.4 mmol/L (21.0-32.0); Chloride 105 mmol/L (98-107); Estimated GFR (African America >60 (>=60 mL/min/1.73m^2); Estimated GFR (Non-African Ame >60 (>=60 mL/min/1.73m^2); Glucose 94 mg/dL (74-106); Potassium 3.4 mmol/L (3.5-5.1); Sodium 142 mmol/L (136-145)
[2024-12-09] MEDS: FENTANYL CITRATE/PF 100 MCG/2 ML VIAL 50 MCG IV ×2 (02:33→03:09)
[2024-12-09 03:19] VITALS: BP 124/92; PULSE 105; O2SAT 97
== END 2024-12-09 03:23 | disposition home or self-care (01) ==
PROVIDERS: Emergency Provider Internal Medicine; PCP Family Medicine
DX: M54.2 Cervicalgia (principal)
CPT/HCPCS: 36415; 80048; 85025; 86140; 96365; 96375; 96376; 99284; J1885; J2405; J3010; J3360; J3475

== ENCOUNTER 2025-01-31 21:10 | Emergency (ER) | payer OTHER, SELFPAY ==
--- OUTSIDE RECORDS SUMMARY | 2022-04-25 09:00 | XMS_ITS | Continuity of Care Document ---
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 [address] [facility], [place], [place], [id number], [place]. tel:[phone] Family History Family Member Type Diagnosis Age At Onset No Information Payers Payer name Insurance type Covered green party ID Noa montano(s) D Medicaid [facility] [id number] Social History Type Description Quantity Date Captured [...]
--- OUTSIDE RECORDS SUMMARY | 2025-01-21 08:00 | XMS_ITS | Encounter Summary ---
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 Name Role Phone Danny Obrien MD Primary Care Provider [phone] Reason for Visit * Reason Comments Migraine Restless Legs Encounter Details Date Type Department Care Team (Late Contact Info) Description 01/21/2025 8:00 AM EDT Office Visit [facility] [address] [facility] [address] [place] [phone] Dominic Irby MD [address] [place] [address] [phone] RLS (restless legs syndrome) (Primary Dx); Cervical dystonia; Cervicogenic headache; Intractable chronic migraine without aura and with status migrainosus Social History Tobacco Use Types Packs/Day Years Used Date Smoking Tobacco: Never Smokeless Tobacco: Never Alcohol Use Standard Drinks/Week Comments Never 0 (1 standard drink = 0.6 oz pur e alcohol) Caffeine: none Comments No Sex and Gender Information Value Date Recorded Sex Assigned at Not on file Legal Sex Female 7:15 PM EDT Gender Identity Not on file Sexual Orientation Not on file documented as of this encounter Last Filed Vital Signs Vital Sign Reading Time Taken Comments Blood Pressure 111/79 01/21/2025 8:00 AM EDT Pulse 81 01/21/2025 8:00 AM EDT Temperature - - Respiratory Rate - - Oxygen Saturation - - Inhaled Oxygen Concentration - - Weight 73.9 kg (163 lb) 01/21/2025 8:00 AM EDT Height 157.5 cm (5' 2 ) 01/21/2025 8:00 AM EDT Body Mass Index 29.81 01/21/2025 8:00 AM EDT documented in this encounter Progress Notes * Dominic Irby MD - 01/21/2025 8:00 AM EDT CHIEF COMPLAINT REASON FOR VISIT: Patient is here to follow up for migraines, neck stiffness, &restless leg syndrome. Qulipta and Zavzpret per last appt Mirapex for RLS Medications tried: cyclobenzaprine, diazepam, tizanidine, Ambien, Topamax, trokendi, propranolol, nurtec, magnesium, pregabalin, venlafaxine, cetirizine, metoprolol, fludrocortisone, norco, diclofenac, ezetimibe, doxepin, trazodone, prednisone, dexamethasone, ajovy, tylenol, rizatriptan, eletriptan, motrin, sumatriptan (made her feel faint), cyproheptadine, Seroquel, amitriptyline, Pamelor, percocet, Vicodin, Nubain injections, Toradol, zonegran, Zofran for nausea, Neurontin, ibuprofen, botox injections Jermain Bradley is a 40 y.o. female who presents for Migraine and Restless Legs History of Present Illness The patient presents for evaluation of headaches. She experiences daily headaches, which are somewhat alleviated by Tylenol or Motrin for a few hours. Migraines occur approximately once a week. Qulipta was discontinued about a week ago due to ineffectiveness. Botox treatments over the past year have not improved daily headaches but have reduced the frequency and severity of spasms. Vyepti has not been tried. There is uncertainty whether muscle spasms trigger migraines or vice versa. Neck mobility is limited, and there is constant discomfort. Physical therapy has been attempted three times without success. She wakes up with minor headaches and sleeps only 2 to 4 non- consecutive hours per night, frequently changing positions due to discomfort. Flexeril and tizanidine are alternated for pain management. Nurtec was tried without success. Forsevere headaches, Valium, diclofenac, and [place] are used. If headaches become too severe, hospital care is sought. She believes her neck and lack of sleep trigger migraines. Daily use of Tylenol and Motrin raises concerns about potential liver and kidney damage. Zanaflex is taken for severe neck pain at night. Mirapex for restless leg syndrome helps her sleep for a few hours, but she still wakes up due to neck pain. Two doses of Mirapex are taken at bedtime,causing significant tiredness. Trazodone has not significantly improved her condition, and she often wakes up with pain and racing thoughts. SOCIAL HISTORY: Sleep: Sleeps only 2 to 4 non-consecutive hours per night FAMILY HISTORY - Mother: Migraines MEDICATIONS CURRENT MEDS: Tylenol Oral Daily Motrin Oral Daily Mirapex 2 mg Oral At bedtime Zanaflex Oral As needed Flexeril Oral As needed Valium Oral As needed Diclofenac Oral As needed Oskaloosa Oral As needed PREVIOUS MEDS: Qulipta Oral End Date: 12/2024 Reason for Discontinuation: Wasn't effective Nurtec Oral Reason for Discontinuation: Wasn't effective Review of Systems Const: Denies appetite change, [...] shall supersede the foregoing. Objective Blood pressure 111/79, pulse 81, height 5' 2 , weight 163 lb. Physical Exam Motor Examination Strength: Strength is normal in upper and lower extremities. Neck: Limited range of motion in the neck. GENERAL EXAMINATION Appearance: in no acute distress, [...] equal, round, and reactive to light and accommodation,both directly and consensually. Visual rich were full [...] in all four extremities, including at least test engineering manager, finger abductors, biceps, triceps, deltoid, toe flexors [...] and spasticity are not evident. Arm swing isnormal. Toe, heel, and tandem walking are performed without difficulty. Musculoskeletal: Trigger-point tenderness was absent. There is no spasm of the trapezii or paraspinals. Results Assessment & Plan 1. Headaches. She reports daily headaches with minor relief from Tylenol and Motrin, and weekly severe migraines.Previous treatments including Qulipta and Botox have been ineffective for daily headaches but somewhat helpful for spasms. A trial of Vyepti infusions every 3 months is recommended to potentially reduce the frequency of both daily headaches and migraines. Samples of a new combination pill will be provided for severe migraines to assess its efficacy in conjunction with her current regimen of Valium, diclofenac, and Oskaloosa. 2. Sleep disturbances. She experiences significant sleep disturbances, sleeping only 2-4 non- consecutive hours per night, often waking up due to neck pain and discomfort. The dosage of Mirapex will be increased to 3 mg at bedtime to improve sleep quality. The prescription will be sent to [facility] in [place]. 3. RLS and this is worse and will increase her Mirapex 3 mg at bed 4. Continue Botox for both migraine prevention as well as prevention of a chronic daily headache. 5. Trial on Vyepti for migraine prevention 6. Trial on Symbravo for migraines Follow up Continue Mirapex for RLS Start Vyepti for migraine prevention. Start Symbravo for acute migraine treatment. This clinical note was created utilizing [employer] documentation system. All information has beenthoroughly reviewed, corrected as necessary, and authenticated by the provider to ensure accuracy and completeness. On occasion, [employer] documentation system erroneously drops words or replaces aspoken word with a similar sounding word. Please notify with any questions or concerns regarding this clinical note. documented in this encounter Plan of Treatment Upcoming Encounters Date Type Department Care Team (Late st Contact Info) Description 02/18/2025 11:30 AM EDT Office Visit [facility] [address] [place] [address] Analilia Adorno MD [address] [place] [address] 03/30/2025 8:00 AM EST Office Visit [facility] [address] [place] [address] Dominic Irby MD [address] [place] [address] 04/14/2025 8:30 AM EST Office Visit [facility] [address] [facility] [place] [phone] Tommie Raymond DO [address] [facility] [place] [address] documented as of this encounter Visit Diagnoses Diagnosis RLS (restless legs syndrome)- Primary Restless legs syndrome (RLS) Cervical dystonia Spasmodic torticollis Cervicogenic headache Headache Intractable chronic migraine without aura and with status migrainosus documented in this encounter Care Teams Assistant Womens Volleyball Coach Relationship Specialty Start Date End Date Danny Obrien MD [address] [facility] [place] [phone] PCP - General Family Medicine 12/12/22 documented as of this encounter
--- OUTSIDE RECORDS SUMMARY | 2025-01-21 14:00 | XMS_ITS | Encounter Summary ---
Author Organization [facility] Address [address] [place] [address] Care Team Providers Care Human Development Professor Name Role Phone Danny Obrien MD Primary Care Provider [phone] Reason for Visit * Reason Comments Nail changes Encounter Details Date Type Department Care Team (Late st Contact Info) Description 01/21/2025 2:00 PM EDT Office Visit [facility] [address] [facility] [address] [place] [phone] Kayla Bedolla MD [address] [facility] [address] [place] [address] Cellulitis of left thumb (Primary Dx) Social History Tobacco Use Types Packs/Day Years [...] on file documented as of this encounter Progress Notes * Kayla Bedolla MD - 01/21/2025 2:00 PM EDT Images from the original note were not included. Nail Disorder Location: Left thumb nail Duration: started yesterday Quality: painful Associated symptoms: swelling, discoloration and changes in the nail Treatments tried: none, recently removed fake nails Current treatment: none All pertinent medical history, medications, and allergies were reviewed. General Exam: alert, oriented to person, place, and time, normal affect, well appearing Unaccompanied A focused exam completed based on patient reported problems, see below: Skin Exam 1. CELLULITIS OF LEFT THUMB Left Thumb Proximal Nail Fold Erythema, edema and drainage present under nail (see photo). Start Clindamycin 300 mg bid x 7 days. Discussed risk of diarrhea with this medication, reviewed totake a probiotic along with the medication and notify office and stop treatment if progressively worsening diarrhea occurs. Start acetic acid soaks, handout given. Bacterial culture today. Plan to follow up in 1 week. If symptoms worsen despite treatment patient instructed to follow up at Urgent care or ER for I&D. Specimen 1 - Aerobic culture Account Name: [place] [facility] NPI: Kayla Bedolla [id number] Cellulitis of left thumb L03.012 Related Medications clindamycin (Cleocin) 300 MG capsule Take 1 capsule by mouth bid x 7 days Next Visit: 1 week documented in this encounter Plan of Treatment Upcoming Encounters Date Type Department Care Team (Late st Contact Info) Description 02/18/2025 11:30 AM EDT Office Visit [facility] [address] [place] [address] Analilia Adorno MD [address] [place] [address] 03/30/2025 8:00 AM EST Office Visit [facility] [address] [place] [phone] Dominic Irby MD [address] [facility] [address] [place] [phone] 04/14/2025 8:30 AM EST Office Visit ERIC [facility] [address] [facility] [place] [place] [address] Tommie Raymond DO [address] [facility] [place] [address] Scheduled Orders Name Type Priority Associated Diagnoses Orde r Schedule Aerobic culture Microbiology Timed Cellulitis of left thumb Release Upon Ordering for 1 Occurrences starting 01/21/2025 documented as of this encounter Visit Diagnoses Diagnosis Cellulitis of left thumb- Primary documented in this encounter Care Teams Human Development Professor Relationship Specialty Start Date End Date Danny Obrien MD [address] [place] [phone] PCP - General Family Medicine 12/12/22 documented as of this encounter
--- OUTSIDE RECORDS SUMMARY | 2025-01-28 11:15 | XMS_ITS | Encounter Summary ---
Author Organization [facility] Address [address] [place] [address] Care Team Providers Care Jigger Crown Pouncing Machine Operator Name Role Phone Danny Obrien MD Primary Care Provider [phone] Reason for Visit * Reason Comments Follow-up Encounter Details Date Type Department Care Team (Late st Contact Info) Description 01/28/2025 11:15 AM EDT Office Visit [facility] [address] [facility] [address] [place] [phone] Kayla Bedolla MD [address] 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 Patient would like to retry the medication if possible as it worked well for her rosacea. Current treatment: Ivermectin All pertinent medical history, medications, and allergies were reviewed. General Exam: alert, oriented to person, place, and time, normal affect, well appearing Unaccompanied A focused exam completed based on patient reported problems, see below: Skin Exam 1. CELLULITIS OF LEFT THUMB Left Thumb Proximal Nail Fold Erythema, edema and drainage present under nail (see photo). Patient would like to restart an oral antibiotic for her rosacea, offered to start Doxycycline as it can treat both conditions. Start [id number] mg BID. Recommend patient take medication with food but not dairy, sit up for 30 min after taking medication, avoid on this medication, wearsunscreen as this medication increases sun sensitivity, and discontinue medication and notify clinic if new headaches/vision changes or other side effects occur. Discussed risk of same side effects she had with minocycline, patient would still like to proceed. Emphasized to stop medication immediately and notify clinic if jaw symptoms occur and we will change her back to clindamycin 300 mg BID. Encouraged patient to take a probiotic given prolonged antibiotic use. Plan to follow up in 3-[address] Adorno. doxycycline (Monodox) 100 MG capsule - Left Thumb Proximal Nail Fold Take 1 capsule, by mouth, BID, 30 days 2. OTHER ROSACEA Head - Anterior (Face) Mid face erythema with telangiectasias +/- scattered inflammatory papules/pustules. Not at treatment goal The patient was informed that rosacea a chronic condition that can be controlled but not cured. Continue Ivermectin as prescribed. Start doxycycline as above, if tolerated plan to taper dose down at next visit once nail infection has cleared. Notify clinic if flaring despite treatment or if side effects develop. Related Medications Ivermectin (Soolantra) 1 % cream Apply thin layer to face, once daily at bedtime, 30 day supply Next Visit: 3-4 weeks, follow up documented in this encounter Plan of Treatment Upcoming Encounters Date Type Department Care Team (Late st Contact Info) Description 02/18/2025 11:30 AM EDT Office Visit [facility] [place] [facility] [address] [place] [address] Analilia Adorno MD [address] [place] [address] 03/30/2025 8:00 AM EST Office Visit [facility] [place] [facility] [address] [place] [address] Dominic Irby MD [address] [facility] [address] [place] [phone] 04/14/2025 8:30 AM EST Office Visit [facility] [address] [place] [address] Tommie Raymond DO [address] [place], [place] [phone] documented as of this encounter Visit Diagnoses Diagnosis Other rosacea- Primary Cellulitis of left thumb documented in this encounter Care Teams Jigger Crown Pouncing Machine Operator Relationship Specialty Start Date End Date Danny Obrien MD [address] [place] [phone] PCP - General Family Medicine 12/12/22 documented as of this encounter
--- OUTSIDE RECORDS SUMMARY | 2025-01-31 21:16 | XMS_ITS | Encounter Summary ---
Author Organization [facility] Address [address] [place] [address] Care Team Providers Care Assistant Professor Of Biology Name Role Phone Danny Obrien MD Primary Care Provider [phone] Kenna Sheehan PA-C Unavailable [phone] Source Comments In the event this information is protected by the Federal Confidentiality of Alcohol and Drug AbusePatient Records regulations: The Federal rules restrict any use of the information to criminally investigate or prosecute any alcohol or drug abuse patient.[facility] Encounter Details Date Type Department Care Team (Late st Contact Info) Description 03/21/2023 Get Medical Advice Neurology [address] [place], [place] [phone] Robert Menchaca, SHALE MINER BLASTING.APPLICATION ADMINISTRATOR [address] [place] [address] Samm Burgos Appt Social History Tobacco Use Types Packs/Day Years Used Date Smoking Tobacco: Never Smokeless Tobacco: Never Alcohol Use Standard Drinks/Week Comments No 0 (1 standard drink = 0.6 oz pur e alcohol) PHQ-2 Answer Date Recorded PHQ-2 score 2 01/12/2023 Area Deprivation Index Answer Date Derrick rded National Score (1-100), lower number is lower ri sk 61 01/12/2023 State Score (1-10), lower number is lower risk 4 01/12/2023 Data from: https://www.neighborhoodatlas.medicine.[facility]/. Last address used for calculation [address] 01/12/2023 Comments Unknown Sex and Gender Information Value Date Recorded Sex Assigned at Female 07/28/2022 1:33 AM EST Legal Sex Female 4:52 PM EST Gender Identity Female 07/28/2022 1:33 AM EST Sexual Orientation Straight 07/28/2022 1: 33 AM EST Occupation Industry Job Start Date Job End Date UNKNOWN Not on file Not on file Not on file documented as of this encounter Plan of Treatment Not on file documented as of this encounter Visit Diagnoses Not on filedocumented in this encounter Care Teams Assistant Professor Of Biology Relationship Specialty Start Date End Date Danny Obrien MD PCP - General Family Medicine 06/05/12 Kenna Sheehan PA-C [address] [facility] [address] [place] [address] Referring Neurology 07/19/22 documented as of this encounter
--- OUTSIDE RECORDS SUMMARY | 2025-01-31 21:16 | XMS_ITS | Patient Health Record ---
Author Organization [facility] in [place] Address [address] [place] [address] Care Team Providers Care Director Database Name Role Phone Vel Obrien Primary Care Provider Allergies Allergen (clinical drug ingredient) Drug/Non Drug Allergy documented on EMR Reaction Allergy Type Onset Date Status caffeine Caffeine vomiting Drug Allergy Active dihydroergotamine Dihydroergotamine anaphylaxis Drug Allergy Active metoprolol Metoprolol lip swelling Drug Allergy Ac tive Results Component Value Reference Range Notes MR cervical spine wo con Reviewed date:04/17/2024 06:15:18 PM Interpretation: Performing Lab: Notes/Report: Source Facility: [place] [address] [place] [address] Magnetic Resonance Report Signed Patient: SHEILA BRADLEY MR#: [id number] : 1985 Acct:[id number] Age/Sex: 39 / F ADM Date: 04/16/24 Loc: MRI Attending Dr: Desmond Leavitt NP Ordering Physician: Desmond Leavitt NP Date of Service: 04/16/24 Procedure(s): MR cervical spine wo con Accession Number(s): [id number] cc: Desmond Leavitt NP; Danny Obrien M.D. [place] [id number] Patient Name: SHEILA BRADLEY MRN: [facility]:[id number] date: 1985 Sex: F Assigned Patient Location: MRI Current Patient Location: Accession/Order Number: [id number] Exam Date: 04/16/2024 06:50 Report Date: 04/17/2024 08:39 At the request of: DESMOND LEAVITT Procedure: MR cervical spine wo con EXAMINATION: MR cervical spine wo con HISTORY: cervical degenerative disc disease M50.20 ; chronic neck pain COMPARISON: XR C-spine 02/16/2022 TECHNIQUE: A variety of imaging planes and parameters were utilized for visualization of suspected pathology without and/or with intravenous Dotarem contrast based on examination type. FINDINGS: CRANIOCERVICAL AREA: Normal foramen magnum with no Chiari malformation. PARASPINAL AREA: Normal with no visible mass. BONES: Slight reversal of normal lordotic curvature. No fracture, spondylolisthesis, bone lesion. CORD: Normal caliber, contour, and signal intensity. CERVICAL DISC LEVELS: C2-C3: No significant disc/facet abnormality, spinal stenosis, or foraminal stenosis. C3-C4: Early degenerative disc disease is present without focal protrusion or neural impingement. C4-C5: Early degenerative disc disease is present without focal protrusion or neural impingement. C5-C6: Early degenerative disc disease is present without focal protrusion or neural impingement. C6-C7: Early degenerative disc disease is present without focal protrusion or neural impingement. C7-T1:. No significant disc/facet abnormality, spinal stenosis, or foraminal stenosis. MR/MR cervical spine wo con IMPRESSION: 1. Multilevel mild early degenerative disc disease/disc bulging. No significant central canal or foraminal stenosis to account for patient's symptoms. 2. Slight reversal of normal lordotic curvature cervical spine; positioning versus muscle spasm. Electronically authenticated by: AKSHAT JULIEN Date: 04/17/2024 08:39 Dictated By: Akshat Julien M.D. Signed By: 04/17/2442 DD/ TD/TT: [employer] Closer: CBC AUTO DIFF Reviewed date:12/09/2024 03:36:49 PM Interpretation: Performing Lab: Notes/Report: [facility] , White Blood Count 6.1 4.0-11.0 10 3/uL Red Blood Count 4.72 4.20-5.40 10 6/uL Hemoglobin 14.1 12.0-16.0 g/dL Hematocrit 42.0 36.0-48.0 % Mean Corpuscular Volume 89.0 81.0-99.0 fL Mean Corpuscular Hemoglobin 29.9 26.7-34.0 pg Mean Corpuscular HGB Conc 33.6 29.9-35.2 g/dL Red Cell Distribution Width 12.9 11.0-15.0 % Platelet Count 253 150-450 10 3/uL Mean Platelet Volume 9.2 9.5-13.5 fL Neutrophils Percent Auto 54.8 43.0-75.0 % Lymphocytes Percent Auto 37.1 20.5-60.0 % Monocytes Percent Auto 5.8 1.7-12.0 % Eosinophils Percent Auto 1.8 0.9-7.0 % Basophils Percent Auto 0.3 0.2-2.0 % Immature Granulocytes Pct Auto 0.2 0.0-0.5 % Neutrophils Absolute Auto 3.3 1.4-6.5 10 3/uL Lymphocytes Absolute Auto 2.3 1.2-3.8 10 3/uL Monocytes Absolute Auto 0.4 0.3-0.8 10 3/uL Eosinophils Absolute Auto 0.1 0.0-0.7 10 3/uL Basophils Absolute Auto 0.0 0.0-0.1 10 3/uL Immature Granulocytes Abs Auto 0.01 0.00-0.03 10 3/uL Performing Lab: see note ML - [facility] LB CRP Reviewed date:12/09/2024 03:36:49 PM Interpretation: Performing Lab: Notes/Report: [facility] , C Reactive Protein <0.50 <=0.50 mg/dL Performing Lab: see note ML - [facility] LB PROF CHEM 8 (BAS METB) Reviewed date:12/09/2024 03:36:49 PM Interpretation: Performing Lab: Notes/Report: [facility] , Sodium 142 136-145 mmol/L Potassium 3.4 3.5-5.1 mmol/L Chloride 105 98-107 mmol/L Carbon Dioxide 29.4 21.0-32.0 mmol/L Anion Gap 11.0 Glucose 94 74-106 mg/dL Blood Urea Nitrogen 15.0 7.0-18.0 mg/dL Creatinine 0.72 0.55-1.02 mg/dL Estimated GFR ( Esther >60 >=60 mL/min/1.73m 2 Estimated GFR (Non- Anat >60 >=60 mL/min/1.73m 2 BUN Creatinine Ratio 20.8 Calcium 9.5 8.5-10.1 mg/dL Performing Lab: see note - [facility] SARS-CoV-2 Ag* Reviewed date:07/31/2024 06:43:11 PM Interpretation: Performing Lab: Notes/Report: [facility] , SARS-CoV-2 Ag NEGATIVE NEGATIVE circumstances exist justifying the authorization of emergency use of in vitro diagnostic tests for detection complexity testing. This test has been authorized only for authorized for the duration of the declaration that the detection of proteins from SARS-CoV-2, not for any other (EUA) for use by authorized laboratories certified under terminated or authorization is revoked sooner. CLIA that meet the requirements to perform moderate or high This test has not been FDA cleared or approved, but has been and/or diagnosis of Covid-19 under section 564(b)(1) of the authorized by the FDA under an Emergency Use Authorization viruses or pathogens. The emergency use of this test is Act, 21 U.S.C. 360bbb-3(b)(1), unless the declaration is Performing Lab: see note - [facility] INFLUENZA A AND B AG Reviewed date:07/31/2024 06:43:11 PM Interpretation: Performing Lab: Notes/Report: [facility] , Influenza Virus A Antigen Negative cannot be ruled out. Flu A antigen in the sample may be Negative for Flu A protein antigen. Infection due to Flu A below the detection limit of the test. Influenza Virus B Antigen Negative below the detection limit of the test. cannot be ruled out. Flu B antigen in the sample may be Negative for Flu B protein antigen. Infection due to Flu B Performing Lab: see note ML - [facility] LB Reason For Referral Diagnosis 1 Chronic migraine (G4 3.709) Diagnosis 2 Cervical dystonia (G 24.3) Diagnosis 3 Cervical pain (neck) (M54.2) Referral Organization [facility] Referring Provider First Name Vel Referring Provider Last Name Micah [facility] Dominic Irby Referred Provider Specialty Neurology Referral Priority Routine Diagnosis 1 Cervical pain (neck) (M54.2) Referral Organization [facility] Referring Provider First Name Vel Referring Provider Last Name Micah Referring Provider Speciality [facility] jaylin Referred Provider Specialty Pain Medicin e Referral Priority Routine Medications Medication SIG (Take, Route, Frequency, Duration) Notes Start Date End Date Status tiZANidine HCl 4 MG 2 tabs Orally qhs; Duration: 30 days 10/09/2024 Active HYDROcodone-Acetaminophen 5-325 MG 1 tablet as needed Orally every 6 hrs; Duration: 7 days 12/12/2024 Active traZODone HCl 50 MG 1 tablet at bedtime as needed Orally Once a day; Duration: 30 days 12/12/2024 Active Valium 5 MG 1 tablet as needed Orally tid - PRN; Duration: 7 days F41.9 12/12/2024 Active Diclofenac Sodium 75 MG 1 tablet as need ed Orally Twice a day; Duration: 30 days 10/09/2024 Active Doxepin HCl 10 MG 1-2 capsule at bedti me Orally qhs; Duration: 30 days 09/18/2024 Active Pramipexole Dihydrochloride 1 MG TAKE 2 TABLETS BY MOUTH EVERY DAY; Duration: 30 days Active predniSONE 20 MG 2 tablets Orally Onc e a day; Duration: 5 days 10/09/2024 Active tiZANidine HCl 4 MG 2 tabs Orally qhs; Duration: 30 days 04/21/2024 Active Social History Tobacco Use: Social History Observation Description Date Details (start date - stop date) Never Smoker NA - NA Tobacco Use/Smoking Question Answer Notes Patient is a nonsmoker Alcohol Screen (Audit-C) Question Answer Notes Did you have a drink containing alcohol in the p ast year? No Points 0 Interpretation Negative AUDIT-C (Standard) Question Answer Notes Did you have a drink contain ing alcohol in the past year? Yes How often did you have six o r more drinks on one occasion in the past year? Never (0 point) How many drinks did you have on a typical day when you were drinking in the past year? 1 or 2 drinks (0 point) How often did you have a dri nk containing alcohol in the past year? Monthly or less (1 point) Points 1 Interpretation Negative Problems Problem Type SNOMED Code ICD Code Onset Dates Problem Status W/U Status Risk Notes Problem Syncope and collapse (510700300) Syncope and collapse (R55) Active confirmed Problem Benign tumor of breast (986286273) Benign neoplasm of unspecified breast (D24.9) Active confirmed Problem Chronic intractable migraine without aura (110149042241537) Chronic migraine without aura, intractable, without status migrainosus (G43.719) Active confirmed Problem Restless legs syndrome (77268346) Restless leg syndrome (G25.81) Active confirmed Problem Sleep apnea (22070960) Sleep apnea (G47.30) Active confirmed Problem Insomnia (376492967) Insomnia (G47.00) Active c onfirmed Problem Hypertriglyceridemia (131558974) Hypertriglyceridemia (E78.1) Active confirmed Problem Medication overuse headache (328109672) Medication overuse headache (G44.40) Active confirmed Problem Conjunctivitis (3936409) Conjunctivitis (H10.9) Active confirmed Problem Chronic migraine (763270555) Chronic migraine (G43.709) Active confirmed Problem Restless legs (07880999) Restless legs (G25.81) Active confirmed Problem Adult health examination (898498842) Well adult exam (Z00.00) Active confirmed Problem Neck pain (43035903) Cervical pa in (neck) (M54.2) Active confirmed Problem Cervical dystonia (91485065) Cervical dystonia (G24.3) Active confirmed Problem Acute urinary tract infection (045165931) Acute UTI (N39.0) Active confirmed Problem Spasm (56622277) Trapezius muscl e spasm (M62.838) Active confirmed Problem Diffuse pain (1816921) Diffuse pain (R52) Active confirmed Problem Hyperlipidemia (39182593) Other hyperlipidemia (E78.49) Active confirmed Vital Signs Blood pressure diastolic 78 mm Hg 12/12/2024 Height 62 in 12/12/2024 Blood pressure systolic 110 mm Hg 12/12/2024 Weight 162.8 lbs 12/12/2024 BMI 29.77 kg/m2 12/12/2024 Encounters Encounter Location Date Provider Diagnosis [facility] [address] [place] [address] 12/09/2024 Vel Obrien [facility] [address] [place] [address] 04/17/2024 Vel Hoy [facility] [address] [facility] [place] [place] [address] 06/19/2024 Vel Hoy [facility] [address] [facility] [place] [address] 07/31/2024 Vel Hoy [facility] [address] [facility] [place] [address] 09/15/2024 Vel Hoy [facility] [address] [facility] [place] [place] [address] 09/18/2024 Vel Hoy Cervical pain (neck) M54.2 [facility] [address] [facility] [place] [address] 10/15/2024 Vel Hoy Cervical dystonia G2 4.3 [facility] [address] [facility] [place] [address] 09/18/2024 Vel Hoy Chronic migraine G43.709 ; Cervical pain (neck) M54.2 and Cervical dystonia G24.3 [facility] [address] [facility] [place] [place] [address] 10/09/2024 Vel Hoy Cervical dystonia G2 4.3 and Cervical pain (neck) M54.2 [facility] [address] [facility] [place] [place] [address] 12/12/2024 Vel Hoy Restless leg syndrom e G25.81 ; Trapezius muscle spasm M62.838 and Insomnia G47.00 [facility] [address] [facility] [place] [place] [address] 07/31/2024 Vel Hoy Acute non-recurrent sinusitis, unspecified location J01.90 and Nasal congestion R09.81 [facility] [address] [facility] [place] [address] 04/21/2024 Vel Hoy Restless leg syndrom e G25.81 ; Chronic migraine G43.709 and Cervical dystonia G24.3 Assessments Encounter Date Diagnosis (ICD Code) Assessment Notes Treatment Notes Treatment Clinical Notes Section Notes 04/21/2024 Restless leg syndrome (ICD-10 - G25.81) 04/21/2024 Chronic migraine (ICD-10 - G43.709) 07/31/2024 Acute non-recurrent sinusitis, unspecified location (ICD-10 - J01.90) Rest and drink more liquids, especially water. You may use a humidifier or vaporizer to help keep the drainage moist. Udxw-wra-xcndprl Nasal Saline may help the stuffy and runny nose. Use Ibuprofen and or Tylenol as needed for fever, chills, body aches or pain. Children 5 years old should not be given brrv-aqo-dfaphis cough and cold medications such as guaifenesin and dextromethorphan. If you're over age 5, you may try ewpe-vyq-vfifixt cold medications such as guaifenesin and dextromethorphan, or multi-symptom cold reliever such as Dayquil to help reduce the symptoms. Antibiotics have been prescribed. You should take these until completed and follow the directions. Antibiotics can sometimes cause upset stomach, and in rare cases, serious allergic reactions or serious gastrointestinal problems. If you start having severe abdominal pain, severe vomiting, or bloody diarrhea, you should be reevaluated by your physician or urgent care immediately. Follow up with your Primary Care Provider or return to clinic if symptoms do not improve within 3-5 days 09/18/2024 Chronic migraine (ICD-10 - G43.709) 09/18/2024 Cervical pain (neck) (ICD-10 - M54.2) 10/09/2024 Cervical dystonia (ICD-10 - G24.3) 10/09/2024 Cervical pain (neck) (ICD-10 - M54.2) 12/12/2024 Restless leg syndrome (ICD-10 - G25.81) 12/12/2024 Trapezius muscle spasm (ICD-10 - M62.838) 09/18/2024 Cervical pain (neck) (ICD-10 - M54.2) 10/15/2024 Cervical dystonia (ICD-10 - G24.3) 12/12/2024 Insomnia (ICD-10 - G47.00) 09/18/2024 Cervical dystonia (ICD-10 - G24.3) 07/31/2024 Nasal congestion (ICD-10 - R09.81) 04/21/2024 Cervical dystonia (ICD-10 - G24.3) 09/18/2024 Other Recommended to rest and use a heating pad on the area. Take NSAIDs for pain as needed 10/09/2024 Other Recommended to rest and use a heating pad on the area. Take NSAIDs for pain as needed Plan Of Treatment Pending Test Test Name Order Date CMP (COMPLETE METABOLIC PANEL) 4 CMP (COMPLETE METABOLIC PANEL) 3 HEMOGLOBIN A1C (GLYCO) 10/26/2023 IRON, TOTAL 10/26/2023 LIPID PANEL (CHOL/TRIG/HDL/LDL) 10/26/19 24 CBC WITH DIFF 10/26/2023 VITAMIN D, 25 LEVEL (TOTAL) 10/26/2023 T3 FREE, T4 FREE and TSH 03/19/2023 Insulin Level 10/26/2023 STOOL OCCULT BLOOD 10/26/2023 CBC AUTO DIFF 03/19/2023 CORTISOL AM 10/26/2023 GLYCOHEMOGLOBIN A1C 03/19/2023 LIPID PROFILE 03/19/2023 THYROID PANEL (T4/TSH/FREE T3) 4 Insurance Providers Payer Name Payer Address Payer Phone Subscriber Number Group Number Insured Name Patient Relationship to Insured Coverage Start Date Coverage End Date [employer] [facility] [address] [place] [address] [id number] Alcides Rizo Spouse - patient is the spouse of the insured Medications Administered Medication Instructions Date of Administration Dosage Notes Ketorolac Tromethamine 07/31/2024 60 mg Ketorolac Tromethamine 09/18/2024 60 mg Ketorolac Tromethamine 10/09/2024 60 mg Orphenadrine Citrate 09/18/2024 60 mg Orphenadrine Citrate 10/09/2024 60 mg Triamcinolone 40 mg/ml 07/31/2024 80 mg Triamcinolone 40 mg/ml 09/18/2024 80 mg Medical (General) History Medical History History ICD Code Chronic migraine G43.709 Cervical pain (neck) M54.2 Cervical dystonia G24.3 Insomnia G47.00 Restless leg syndrome G25.81 Diffuse pain R52 Medication overuse headache G44.40 Surgical History Surgery Date(Month/Year) Laproscopy X 2 Gall Bladder EGD Total Hysterectomy Tonsilectomy Addenoidectomy [place] [facility] LT breast lumpectomy w/nippl e reconstruction, RT breast I&D of cyst w/nipple reconstruction- Jonas 05/15/2023 Right breast lump removal 06/17/2024
--- OUTSIDE RECORDS SUMMARY | 2025-01-31 21:16 | XMS_ITS | Encounter Summary ---
Author Organization [facility] Address [address] [place] [address] Care Team Providers Care Child Day Care Teacher Name Role Phone Danny Obrien MD Primary Care Provider [phone] Kenna Sheehan PA-C Unavailable [phone] Source Comments In the event this information is protected by the Federal Confidentiality of Alcohol and Drug AbusePatient Records regulations: The Federal rules restrict any use of the information to criminally investigate or prosecute any alcohol or drug abuse patient.[facility] Encounter Details Date Type Department Care Team (Late st Contact Info) Description 08/14/2022 Patient Msg Functional Medicine [id number] Provider, [facility] Consult to Functional Medicine Social History Tobacco Use Types Packs/Day Years Used Date Smoking Tobacco: Never Smokeless Tobacco: Never Alcohol Use Standard Drinks/Week Comments No 0 (1 standard drink = 0.6 oz pur e alcohol) PHQ-2 Answer Date Recorded PHQ-2 score 3 07/28/2022 Area Deprivation Index Answer Date Derrick rded National Score (1-100), lower number is lower ri sk 65 07/28/2022 State Score (1-10), lower number is lower risk N ot on file 07/28/2022 Data from: https://www.neighborhoodatlas.medicine.[facility].edu/. Last address used for calculation [address] 07/28/2022 Comments Unknown Sex and Gender Information Value [...] on filedocumented in this encounter Care Teams Child Day Care Teacher Relationship Specialty Start Date End Date Danny Obrien MD PCP - General Family Medicine 06/05/12 Kenna Sheehan PA-C [address] [place] [address] Referring Neurology 07/19/22 documented as of this encounter
--- OUTSIDE RECORDS SUMMARY | 2025-01-31 21:16 | XMS_ITS | Encounter Summary ---
Author Organization [facility] Address [address] [place] [address] Care Team Providers Care Iron Guardrail Installer Name Role Phone Danny Obrien MD Primary Care Provider [phone] Reason for Visit * Reason Comments Med Refill Encounter Details Date Type Department Care Team (Late st Contact Info) Description 11/10/2024 Refill [facility] [address] [facility] [address] [place] [address] Nae Velez, SUPERINTENDENT GREENS-DENTIST [address] [place] [address] Other rosacea Social History Tobacco Use Types Packs/Day Years Used Date Smoking Tobacco: Never Smokeless Tobacco: Never Alcohol Use Standard Drinks/Week Comments Never 0 (1 standard drink = 0.6 oz pur e alcohol) Caffeine: none Comments Unknown Sex and Gender Information Value Date Recorded Sex Assigned at Not on file Legal Sex Female 7:15 PM EDT Gender Identity Not on file Sexual Orientation Not on file documented as of this encounter Miscellaneous Notes * Telephone Encounter - Lana Rice LPN - 11/10/2024 8:29 AM EDT Needs appt to fill. Over a year since last follow up documented in this encounter Plan of Treatment Upcoming Encounters Date Type Department Care Team (Late st Contact Info) Description 02/18/2025 11:30 AM EDT Office Visit [facility] [address] [place] [address] Analilia Adorno MD [address] [place] [address] 03/30/2025 8:00 AM EST Office Visit [facility] [place] [facility] [address] [place] [address] Dominic Irby MD [address] [place] [phone] 04/14/2025 8:30 AM EST Office Visit [facility] [address] [address] Tommie Raymond DO [address] [place] [address] documented as of this encounter Visit Diagnoses Diagnosis Other rosacea documented in this encounter Care Teams Iron Guardrail Installer Relationship Specialty Start Date End Date Danny Obrien MD [address] [place] [place] [address] PCP - General Family Medicine 12/12/22 documented as of this encounter
--- OUTSIDE RECORDS SUMMARY | 2025-01-31 21:16 | XMS_ITS | Encounter Summary ---
Author Organization [facility] Address [facility] [place] [address] Care Team Providers Care Data Examination Clerk Name Role Phone Danny Obrien MD Primary Care Provider [phone] Kenna Sheehan PA-C Unavailable [phone] Source Comments In the event this information is protected by the Federal Confidentiality of Alcohol and Drug AbusePatient Records regulations: The Federal rules restrict any use of the information to criminally investigate or prosecute any alcohol or drug abuse patient.[facility] Encounter Details Date Type Department Care Team (Late st Contact Info) Description 04/11/2023 Lab Requisition [facility] [place] [address] Calvin Haynes MD [address] [place] [address] Person encountering health services to consult on behalf of another person Social History Tobacco Use Types Packs/Day Years Used Date Smoking Tobacco: Never Assessed PHQ-2 Answer Date Recorded PHQ-2 score 2 01/12/2023 Area Deprivation Index Answer Date Derrick rded National Score (1-100), lower number is lower ri sk 61 01/12/2023 State Score (1-10), lower number is lower risk 4 01/12/2023 Data from: https://www.neighborhoodatlas.[facility]/. Last address used for calculation [address] 01/12/2023 Comments Unknown Sex and Gender Information Value Date Recorded Sex Assigned at Female 07/28/2022 1:33 AM EST Legal Sex Female 4:52 PM EST Gender Identity Female 07/28/2022 1:33 AM EST Sexual Orientation Straight 07/28/2022 1: 33 AM EST documented as of this encounter Plan of Treatment Not on file documented as of this encounter Procedures Procedure Name Priority Date/Time Associated Diagnosis Comments SURGICAL PATHOLOGY REFERENCE LAB CONSULT Routine 04/11/2023 10:31 AM EST Person encountering health services to consult on behalf of another person documented in this encounter Results * SURGICAL PATHOLOGY REFERENCE LAB CONSULT (04/11/2023 10:31 AM EST) Case Report Surgical Pathology Report Case: [id number] Authorizing Provider: Calvin Haynes MD Collected: 04/11/2023 10:31 AM Ordering Location: [facility] Received: 04/11/2023 10:32 AM [facility] Laboratory Pathologist: Estiven Wang MD Specimen: SLIDE(S), 12 SLIDES, [id number] 04/13/2023 2:06 PM EST [facility] FINAL DIAGNOSIS Left breast, core biopsy - [place] spindle cell proliferation, (please see comment). 04/13/2023 2:06 PM EST [facility] at 1406 EST Diagnosis Comment Many thanks for sending us this needle [...] in consultation with Dr. Rogers, of the [facility] breast pathology department, who concurs. 04/13/2023 2:06 PM EST [facility] Clinical History CONSULT REQUESTED 04/13/2023 2:06 PM EST [facility] Performing Lab Diagnostic interpretation performed at [facility], [address] [place] [address] CLIA# [id number] High Rigger: Oliverio Brito M.D. 04/13/2023 2:06 PM EST [facility] Blocks or Slides MICROSCOPE SLIDE / Unknown 04/11/2023 10:31 AM EST 04/11/2023 10:32 AM EST us Calvin Haynes MD SURGICAL PATHOLOGY Final Resul t Performing Organization Address City/State/[facility] Co de Phone Number [facility] [address] [place] [address] documented in this encounter Visit Diagnoses Diagnosis Person encountering health services to consult on behalf of another person Other person consulting on behalf of another person documented in this encounter Care Teams Data Examination Clerk Relationship Specialty Start Date End Date Danny Obrien MD PCP - General Family Medicine 06/05/12 Kenna Sheehan PA-C [address] [place] [address] Referring Neurology 07/19/22 documented as of this encounter
--- OUTSIDE RECORDS SUMMARY | 2025-01-31 21:16 | XMS_ITS | Encounter Summary ---
Author Organization [facility] Address [address] [place] [address] Care Team Providers Care Sweep Press Operator Name Role Phone Danny Obrien MD Primary Care Provider [phone] Encounter Details Date Type Department Care Team (Late st Contact Info) Description 10/12/2022 External Result Encounter [facility] External Department Unsolicited Jamin Mcdaniel H, DO [address] [facility] [address] [place] [address] Social History Tobacco Use Types Packs/Day Years Used Date Smoking Tobacco: Never Assessed Comments Unknown Sex and Gender Information Value Date Recorded Sex Assigned at Not on file Legal Sex Female 7:15 PM EDT Gender Identity Not on file Sexual Orientation Not on file documented as of this encounter Plan of Treatment Upcoming Encounters Date Type Department Care Team (Late st Contact Info) Description 02/18/2025 11:30 AM EDT Office Visit [facility] [address] [place] [address] Analilia Adorno MD [address] [place], [place] [phone] 03/30/2025 8:00 AM EST Office Visit [facility] [address] [place] [address] Dominic Irby MD [address] [facility] [address] [place] [id number] 04/14/2025 8:30 AM EST Office Visit [facility] [address] [place] [address] Tommie Raymond, DO [address] [facility] [place] [address] documented as of this encounter Procedures Procedure Name Priority Date/Time Associated Diagnosis Comments BI US BREAST LIMITED BILATERAL 10/12/2022 8:15 AM EDT documented in this encounter Results * Bilateral breast US limited (10/12/2022 8:15 AM EDT) Anatomical Region Laterality Modality Breast Bilateral Ultrasound 10/12/2022 8:15 AM EDT Impressions 10/13/2022 2:18 PM EDT BILATERAL FOCAL ASYMMETRIES CORRESPOND TO SONOGRAPHIC LESIONS SUSPICIOUS FOR MULTIPLE FIBROADENOMAS/COMPLEX CYSTS. THESE ARE SIMILAR TO THE PRIOR STUDIES FROM 2019 AND ARE PRESUMED TO BE BENIGN IN NATURE. CLOSE CLINICAL OBSERVATION IS RECOMMENDED WITH REPEAT IMAGING SYMPTOMS WARRANT. RESULT CODE: 2 Benign Findings(s) DENSITY CODE: 3 (approximately 51-75% glandular) FOLLOW UP: 1YR The false-negative rate of mammography is approximately 10-percent. Management of a palpable abnormality must be based on clinical grounds. Impression dictated by: Zbigniew Christensen M.D.10/12/2022 8:26 AM Dictation Location: [facility] Transcribed By: [facility] 10/12/22825 Dictated By: Zbigniew Christensen II, MD 10/12/22814 Signed By: <Electronically signed by Zbigniew Christensen II, MD in OV> 10/12/22825 Narrative 10/13/2022 2:18 PM EDT [facility] Main [address] [address] Mammography Report Signed Patient: Brittanie Bradley MR#: [id number] : 1985 Acct:[id number] Age/Sex: 37 / F ADM Date: 10/12/22 Loc: [place] Room: Type: [facility] CLI Attending Dr: Jamin Mcdaniel DO Copies to: MD Jamin Saleh DO Ordering Provider: Jamin Mcdaniel DO Date of Service: 10/12/22 US/US breast BI limited: Breast lumps, change in size;Breast lump on left side at 12 ([id number]) MM/MM diagnostic mammo BI w/CAD: Yrly mamm;Breast [...] to this. MM/MM diagnostic mammo BI w/CAD Procedure Note Radiology, Radiologist, - 10/13/2022 [facility] Main Josephine [address] [place], [place] [phone] Mammography Report Signed Patient: Brittanie Bradley MMR#: [id number] : 1985Acct:[id number] Age/Sex: 37 / FADM Date: 10/12/22 Loc: [place] Room:Type: [facility] Attending Dr: Jamin Mcdaniel DO Copies to: MD Jamin Saleh DO Ordering Provider: Jamin Mcdaniel DO Date of Service: 10/12/22 US/US breast BI limited: Breast lumps, changein size;Breast lump on left side at 12 ([id number]) MM/MM diagnostic mammo BI w/CAD: Yrly mamm;Breast lump onleft side at 12 o'clock position;Br DIAGNOSTIC BILATERAL BREAST MAMMOGRAM - FULL FIELD DIGITAL WITHTOMOSYNTHESIS CLINICAL DATA: Follow-up palpable lumps Conventional and Tomosynthesis Craniocaudal and mediolateral oblique viewsof the bilateral breasts were obtained using low-dose digital technique. Comparison is made toprior studies from 02/05/2020 and 08/05/2019. This examination was reviewed with the aid of CAD. There are a few punctate benign-appearing calcifications. There are focalasymmetries bilaterally. The breast parenchyma is heterogeneously dense. There are no dominantmasses, typically malignant calcifications or architectural distortion. There has been no significantinterval change. Bilateral Limited breast ultrasound: Within the right breast at the 6:00 position 2 to 3 cm from the nipplethere is a similar 1.5 x 0.7 x 0.9 cm hypoechoic wider than tall well circumscribed lesion with lobularmargins similar to the prior exam. Within the right breast at the 7:00 position 6 cm from nipple there is a1.9 x 1.0 x 1.8 cm hypoechoic well-circumscribed wider than tall structure with lobulatedmargins. This is similar to the prior exam. In the region of palpable abnormality in the left breast at 7:00 position5 cm from the nipple there is a 2.3 x 1.1 x 1.8 cm hypoechoic structure with lobular margins. This iswell-circumscribed and wider than tall. The 11:00 position 3 to 4 cm from nipple in the left breast there is aheterogeneous hypoattenuating 1.2 x 0.9 x 1.1 cm structure. There is an adjacent hypoechoicwell-circumscribed wider than tall 1.5 x 0.7 x 1.4 cm lesion. There is a third similar-appearing 1.0 x 0.4 x 1.1cm structure adjacent to this. MM/MM diagnostic mammo BI w/CAD IMPRESSION: BILATERAL FOCAL ASYMMETRIES CORRESPOND TO SONOGRAPHIC LESIONS SUSPICIOUSFOR MULTIPLE FIBROADENOMAS/COMPLEX CYSTS. THESE ARE SIMILAR TO THE PRIOR STUDIES [id number] AND ARE PRESUMED TO BE BENIGN IN NATURE. CLOSE CLINICAL OBSERVATION IS RECOMMENDED WITH REPEAT IMAGING SYMPTOMSWARRANT. RESULT CODE: 2 Benign Findings(s) DENSITY CODE: 3 (approximately 51-75% glandular) FOLLOW UP: 1YR The false-negative rate of mammography is approximately 10-percent. Management of a palpable abnormality must be based on clinical grounds. Impression dictated by: Zbigniew Christensen M.D.10/12/2022 8:26 AM Dictation Location: [facility] Transcribed By: [facility] 10/12/22 08 Dictated By: Zbigniew Christensen II, MD 10/12/22814 Signed By: <Electronically signed by Zbigniew Christensen II, MD inOV> 10/12/22 08 us Jamin Mcdaniel DO IMG US PROCEDURES Final R esult documented in this encounter Visit Diagnoses Not on filedocumented in this encounter Care Teams Sweep Press Operator Relationship Specialty Start Date End Date Danny Obrien MD [address] [place] [address] PCP - General Family Medicine 12/12/22 documented as of this encounter
--- OUTSIDE RECORDS SUMMARY | 2025-01-31 21:16 | XMS_ITS | Encounter Summary ---
Author Organization [facility] Address [address] [facility] [place] [address] Care Team Providers Care Hyperbaric Technician Name Role Phone Danny Obrien MD Primary Care Provider [phone] Encounter Details Date Type Department Care Team (Late st Contact Info) Description 11/27/2024 Results Follow-Up [facility] [address] [place] [address] Dominic Irby MD [address] [facility] [address] [place] [address] MR cervical spine wo contrast Social History Tobacco Use Types Packs/Day Years [...] Dermatology [address] [place] [address] Analilia Adorno MD [address] [place], [place] [phone] 03/30/2025 8:00 AM EST Office Visit [facility] [address] [place] [address] Dominic Irby MD [address] [facility] [address] [place], [place] [phone] 04/14/2025 8:30 AM EST Office Visit [facility] [address] [facility] [place] [address] Tommie Raymond DO [address] [facility] [place] [address] documented as of this encounter Visit Diagnoses Not on filedocumented in this encounter Care Teams Hyperbaric Technician Relationship Specialty Start Date End Date Danny Obrien MD [address] [place] [address] PCP - General Family Medicine 12/12/22 documented as of this encounter
--- OUTSIDE RECORDS SUMMARY | 2025-01-31 21:16 | XMS_ITS | Encounter Summary ---
Author Organization [facility] Address [address] [place] [address] Care Team Providers Care Ekg/Ecg Technician Name Role Phone Danny Obrien MD Primary Care Provider [phone] Reason for Visit * Reason Comments Med Refill Encounter Details Date Type Department Care Team (Late st Contact Info) Description 11/17/2023 [facility]ill [facility] [address] [place] [phone] Jamin Mcdaniel DO [address] [place] [address] Social History Tobacco Use Types Packs/Day Years [...] Dermatology [address] [place] [phone] Analilia Adorno MD [address] [place] [address] 03/30/2025 8:00 AM EST Office [facility] [address] [place] [address] Dominic Irby MD [address] [facility] [address] [place], [place] [phone] 04/14/2025 8:30 AM EST Office Visit [facility] [address] [facility] [place] [address] Tommie Raymond DO [address] [facility] [place] [address] documented as of this encounter Visit Diagnoses Not on filedocumented in this encounter Care Teams Ekg/Ecg Technician Relationship Specialty Start Date End Date Danny Obrien MD [address] [facility] [place] [phone] PCP - General Family Medicine 12/12/22 documented as of this encounter
--- OUTSIDE RECORDS SUMMARY | 2025-01-31 21:16 | XMS_ITS | Clinical Summary ---
Author Organization [facility] Address [id number] [address] [place] [address] Care Team Providers Care Feed Preparation Operator Name Role Phone Filiberto Ying MD Primary Care Provider [phone] Allergies Active Allergy Reactions Criticality Noted Date Comments Caffeine Vomiting Medium 07/19/2016 Dhe Shortness Of Breath High 07/19/2016 Medications cyclobenzaprine (FLEXERIL) 10 mg tablet Take 10 mg by mouth nightly as needed for muscle spasms. Active magnesium oxide (MAG-OX) 400 mg tablet Take by mouth daily. Active [id number] c acid 29 mg iron- 1 mg tablet,chewable Chew 1 tablet and swallow daily. Active BIOTIN ORAL Take by mouth. Active pyridoxine, vitamin B6, (vitamin B-6) 100 mg tablet Take 100 mg by mouth daily. Active propranolol (INDERAL) 10 mg tablet Take 10 mg by mouth daily. Active Active Problems Problem Noted Date Diagnosed Date Intrauterine 07/25/2016 labor 07/19/2016 Immunizations Immunization Administration Dates Next Due Tdap 07/27/2016 Social History Tobacco Use Types Packs/Day Years Used Date Smoking Tobacco: Never Smokeless Tobacco: Never Alcohol Use Standard Drinks/Week Comments No 0 (1 standard drink = 0.6 oz pur e alcohol) Childcare Answer Date Recorded Childcare Unknown 10/30/2018 Employment Answer Date Recorded Employment Unknown 10/30/2018 Purpose - Life Answer Date Recorded Purpose and direction in life Unknown Comments No Sex and Gender Information Value Date Recorded Sex Assigned at Not on file Legal Sex Female 11:57 AM EDT Gender Identity Not on file Sexual Orientation Not on file Last Filed Vital Signs Vital Sign Reading Time Taken Comments Blood Pressure 103/66 07/27/2016 8:00 AM EST Pulse 73 07/27/2016 8:00 AM EST Temperature 36.3 C (97.3 F) 07/27/2016 8:00 AM EST Respiratory Rate 16 07/27/2016 8:00 AM EST Oxygen Saturation 100% 07/25/2016 10:45 PM EST Inhaled Oxygen Concentration - - Weight 72.1 kg (159 lb) 07/25/2016 8:01 PM EST Height 157.5 cm (5' 2 ) 07/25/2016 8:01 PM EST Body Mass Index 29.08 07/25/2016 8:01 PM EST Plan of Treatment Health Maintenance Due Date Last Done Comments Depression Screening 1999 Tobacco Screening 1999 Adult BMI Screening 2005 Pap Smear 01/07/2008 Influenza Vaccine 01/19/2025 DTaP,Tdap and Td Vaccines (2 - Td or Tdap) 07/27/2026 07/27/2016 Medical Devices Not on file Insurance [place]ICAID [place] Care Teams Feed Preparation Operator Relationship Specialty Start Date End Date Filiberto Ying MD PCP - General 07/25/16
--- OUTSIDE RECORDS SUMMARY | 2025-01-31 21:16 | XMS_ITS | Encounter Summary ---
Author Organization [facility] Address [address] [place] [address] Care Team Providers Care Civil Process Server Name Role Phone Danny Obrien MD Primary Care Provider [phone] Encounter Details Date Type Department Care Team ([facility] Contact Info) Description 03/06/2023 Abstract [facility] [address] [place] [address] Erick Burk MD [address] [place] [address] Social History Tobacco Use Types Packs/Day Years [...] Dermatology [address] [place] [address] Analilia Adorno MD [address] [place] [address] 03/30/2025 8:00 AM EST Office Visit [facility] [address] [place] [address] Dominic Irby MD [address] [facility] [address] [place] [phone] 04/14/2025 8:30 AM EST Office Visit [facility] [address] [facility] [place] [address] Tommie Raymond DO [address] [facility] [address] [place], [place] [phone] documented as of this encounter Visit Diagnoses Not on filedocumented in this encounter Care Teams Civil Process Server Relationship Specialty Start Date End Date Danny Obrien MD [address] [facility] [place] [address] PCP - General Family Medicine 12/12/22 documented as of this encounter
--- OUTSIDE RECORDS SUMMARY | 2025-01-31 21:17 | XMS_ITS | Encounter Summary ---
Author Organization [facility] Address [address] [place] [address] Care Team Providers Care Locomotive Observer Name Role Phone Danny Obrien MD Primary Care Provider [phone] Encounter Details Date Type Department Care Team (Late st Contact Info) Description 01/21/2025 Telephone [facility] [place] [facility] [address] [facility] [address] [place] [address] Dominic Irby MD [address] [facility] [address] [place] [address] Social History Tobacco Use Types Packs/Day Years [...] encounter Miscellaneous Notes * Telephone Encounter - Raven Silveira MA - 01/21/2025 11:57 AM EDT She has tried a lot of medications. I am going submit Vyepti form. * Telephone Encounter - Juliet Rhys - 01/21/2025 8:[address] Irby seen patient today and would like to see if patient can get approved for Vyepti. documented in this encounter Plan of Treatment Upcoming Encounters Date Type Department Care Team (Late st Contact Info) Description 02/18/2025 11:30 AM EDT Office Visit [facility] [address] [place] [address] Analilia Adorno MD [address] [place] [address] 03/30/2025 8:00 AM EST Office Visit [facility] [address] [place] [address] Dominic Irby MD [address] [facility] [place] [phone] 04/14/2025 8:30 AM EST Office Visit [facility] [place] [facility] [address] [place] [address] Tommie Raymond DO [address] [facility] [place] [address] documented as of this encounter Visit Diagnoses Not on filedocumented in this encounter Care Teams Locomotive Observer Relationship Specialty Start Date End Date Danny Obrien MD [address] [facility] [place] [phone] PCP - General Family Medicine 12/12/22 documented as of this encounter
--- OUTSIDE RECORDS SUMMARY | 2025-01-31 21:17 | XMS_ITS | Clinical Summary ---
Author Organization [facility] Address [address] [place] [address] Phone Care Team Providers Care Shift Leader Name Role Phone Danny Obrien MD Primary Care Provider [phone] Allergies Active Allergy Reactions Criticality Noted Date Comments Adhesive Tape-Silicones Unknown 01/05/2023 Caffeine Unknown 01/05/2023 Prasterone (Dhea) Unknown 01/05/2023 Medications baclofen (Lioresal) 10 mg tablet Take 1 tablet in AM 2 Tablet in PM Active ferrous sulfate 325 (65 Fe) MG EC tablet Take by mouth. Do not crush, chew, or split Take as directed Active fludrocortison e acetate (FLUDROCORTISO NE ORAL) Take by mouth. Fludrocortisone Acetate 0.1 MG oral tablet, Take 1 tablet daily Active metoprolol succinate XL (Toprol-XL) 25 mg 24 hr tablet Take 1 tablet (25 mg) by mouth once daily. Do not crush or chew. Active minocycline (Dynacin) 100 mg tablet Take 1 tablet (100 mg) by mouth once daily at bedtime. Active pramipexole (Mirapex) 1 mg tablet Take 1 tablet (1 mg) by mouth once daily. Active simvastatin (Zocor) 40 mg tablet Take 1 tablet (40 mg) by mouth once daily at bedtime. Active ezetimibe (Zetia) 10 mg tablet Take 1 tablet (10 mg) by mouth once daily. Active cetirizine (ZyrTEC) 10 mg tablet Take 1 tablet (10 mg) by mouth once daily. As Directed Active Active Problems Problem Noted Date Diagnosed Date Cervical dystonia 01/05/2023 Difficulty breathing 01/05/2023 Fainting 01/05/2023 Hyperlipidemia 01/05/2023 Immunizations Immunization Administration Dates Next Due Tdap vaccine, age 7 year and older (BOOSTRIX, AD ACEL) 01/04/2020,07/27/2016 Family History Medical History Relation Name Comments Hyperlipidemia Father Hypertension Father Migraines Mother Relation Name Status Comments Father Mother Social History Tobacco Use Types Packs/Day Years Used Date Smoking Tobacco: Never Assessed Comments Unknown Sex and Gender Information Value Date Recorded Sex Assigned at Not on file Legal Sex Female 12:53 PM EST Gender Identity Not on file Sexual Orientation Not on file Last Filed Vital Signs Vital Sign Reading Time Taken Comments Blood Pressure 112/74 11/14/2022 4:20 PM EDT Pulse 89 11/14/2022 4:20 PM EDT Temperature - - Respiratory Rate - - Oxygen Saturation - - Inhaled Oxygen Concentration - - Weight 73.5 kg (162 lb) 11/10/2022 8:58 AM EDT Height 157.5 cm (5' 2 ) 11/14/2022 4:15 PM EDT Body Mass Index 29.63 11/10/2022 8:58 AM EDT Plan of Treatment Health Maintenance Due Date Last Done Comments HIV Screening 1987 Lipid Panel 1987 Yearly Adult Physical 1987 MMR Vaccines (1 of 1 - Standard series) 01/07/1988 Diabetes Screening 2005 Hepatitis C Screening 2005 Hepatitis B Vaccines (1 of 3 - 19+ 3-dose series) 2006 Cervical Cancer Screening 01/07/2008 HPV/Cotest 01/07/2008 Pap Smear 01/07/2008 HPV Vaccines (1 - 3-dose standard series) 2014 COVID-19 Vaccine (1 - 2023-2 5 season) 2025 Influenza Vaccine (#1) 2025 DTaP/Tdap/Td Vaccines (3 - T d or Tdap) 01/03/2030 01/04/2020, 07/27/2016 Zoster Vaccines (1 of 2) 2037 HIB Vaccines Aged Out No longer eligi ble based on patient's age to complete this topic Hepatitis A Vaccines Aged Out No long er eligible based on patient's age to complete this topic IPV Vaccines Aged Out No longer eligi ble based on patient's age to complete this topic Meningococcal Vaccine Aged Out No pete elias eligible based on patient's age to complete this topic Pneumococcal Vaccine: Pediatrics and At-Risk Adult Patients Aged Out No longer eligible b ased on patient's age to complete this topic Rotavirus Vaccines Aged Out No longer eligible based on patient's age to complete this topic Insurance [facility] Care Teams Shift Leader Relationship Specialty Start Date End Date Danny Obrien MD [address] [place] [phone] PCP - General 09/20/22
--- OUTSIDE RECORDS SUMMARY | 2025-01-31 21:17 | XMS_ITS | Encounter Summary ---
Author Organization [facility] Address [address] [place] [address] Phone Care Team Providers Care Telescope Repairer Name Role Phone Danny Obrien MD Primary Care Provider [phone] Encounter Details Date Type Department Care Team ([facility] st Contact Info) Description 12/28/2022 Scanned Document [facility] [address] [place] [address] Conversion, Onbase Social History Tobacco Use Types Packs/Day Years [...] Procedure Name Priority Date/Time Associated Diagnosis Comments ECHOCARDIOGRAM 12/28/2022 documented in this encounter Results * ECHOCARDIOGRAM (12/28/2022) Narrative 12/28/2022 Ordered by an unspecified provider. us Onbase Conversion CV ECHO PROCEDURES Final Resul t documented in this encounter Visit Diagnoses Not on filedocumented in this encounter Care Teams Telescope Repairer Relationship Specialty Start Date End Date Danny Obrien MD [address] [place] [facility] [place] [address] PCP - General 09/20/22 documented as of this encounter
--- OUTSIDE RECORDS SUMMARY | 2025-01-31 21:17 | XMS_ITS | Encounter Summary ---
Author Organization [facility] Address [address] [facility] [place] [address] Care Team Providers Care Computer Equipment Repairer Name Role Phone Danny Obrien MD Primary Care Provider [phone] Encounter Details Date Type Department Care Team (Late st Contact Info) Description 01/21/2025 Orders Only [facility] External Department Unsolicited Kayla Bedolla MD [address] [place] [address] Social History Tobacco Use Types Packs/Day Years [...] Dermatology [address] [place] [address] Analilia Adorno MD [address] [place] [address] 03/30/2025 8:00 AM EST Office Visit [facility] [address] [place] [address] Dominic Irby MD [address] [facility] [address] [address] 04/14/2025 8:30 AM EST Office Visit [facility] [place] OBGYBry[facility] [address] [facility] [place] [address] Tommie Raymond, [address] [facility] [address] [place], [place] [phone] documented as of this encounter Procedures Procedure Name Priority Date/Time Associated Diagnosis Comments RESULT Routine 01/21/2025 2:36 PM EDT CULTURE, AEROBIC BACTERIA Routine 01/21/2025 2:36 PM EDT documented in this encounter Results * RESULT (01/21/2025 2:36 PM EDT) RESULT Comment [facility] Comment:No growth in 36 - 48 hours. 01/21/2025 2:36 PM EDT 01/21/2025 Narrative [facility] - 01/24/2025 10:07 AM EDT Performed at: - [address] [id number] Trick Rodeo Rider: Bentley Leggett PhD, Phone: [phone] us Kayla Bedolla MD LAB BLOOD ORDERABLES Final Re sult [facility] * Aerobic culture (01/21/2025 2:36 PM EDT) CULTURE, AEROBIC BACTERIA Final report [facility] 01/21/2025 2:36 PM EDT 01/21/2025 Narrative [facility] - 01/24/2025 10:07 AM EDT Performed at: [address] [id number] Trick Rodeo Rider: Bentley Leggett PhD, Phone: [phone] us Kayla Bedolla MD LAB MICROBIOLOGY - GENERAL OR DERABLES Final Result [facility] documented in this encounter Visit Diagnoses Not on filedocumented in this encounter Care Teams Computer Equipment Repairer Relationship Specialty Start Date End Date Danny Obrien MD [address] [place] [address] PCP - General Family Medicine 12/12/22 documented as of this encounter
--- OUTSIDE RECORDS SUMMARY | 2025-01-31 21:17 | XMS_ITS | Encounter Summary ---
Author Organization [facility] Address [address] [place] [address] Care Team Providers Care Associate Account Executive Name Role Phone Danny Obrien MD Primary Care Provider [phone] Encounter Details Date Type Department Care Team (Late st Contact Info) Description 04/05/2023 Abstract [facility] [address] [facility] [address] [place] [phone] Jamin Mcdaniel, DO [address] [facility] [address] [place] [address] Social History Tobacco Use Types Packs/Day Years [...] Dermatology [address] [place] [address] Analilia Adorno MD [address] [place] [address] 03/30/2025 8:00 AM EST Office Visit [facility] [address] [place] [address] Dominic Irby MD [address] [facility] [address] [phone] 04/14/2025 8:30 AM EST Office Visit [facility] [place] [address] [place] [address] Tommie Raymond DO [address] [facility] [address] [place], [place] [phone] documented as of this encounter Visit Diagnoses Not on filedocumented in this encounter Care Teams Associate Account Executive Relationship Specialty Start Date End Date Danny Obrien MD [address] [facility] [place] [address] PCP - General Family Medicine 12/12/22 documented as of this encounter
--- OUTSIDE RECORDS SUMMARY | 2025-01-31 21:17 | XMS_ITS | Encounter Summary ---
Author Organization [facility] Address [address] [place] [address] Care Team Providers Care Second Rigger Name Role Phone Danny Obrien MD Primary Care Provider [phone] Kenna Sheehan PA-C Unavailable [phone] Source Comments In the event this information is protected by the Federal Confidentiality of Alcohol and Drug AbusePatient Records regulations: The Federal rules restrict any use of the information to criminally investigate or prosecute any alcohol or drug abuse patient.[facility] Encounter Details Date Type Department Care Team (Late st Contact Info) Description 09/10/2023 Patient Msg Neurology [address] [phone] Provider, Ccf Appointment Scheduling Social History Tobacco Use Types Packs/Day Years [...] is lower risk 4 01/12/2023 Data from: https://www.neighborhoodatlas.medicine.[facility].edu/. Last address used for calculation [address] 01/12/2023 Comments Unknown Sex and Gender [...] on filedocumented in this encounter Care Teams Second Rigger Relationship Specialty Start Date End Date Danny Obrien MD PCP - General Family Medicine 06/05/12 Kenna Sheehan PA-C [address] [place] [address] Referring Neurology 07/19/22 documented as of this encounter
--- OUTSIDE RECORDS SUMMARY | 2025-01-31 21:17 | XMS_ITS | Encounter Summary ---
Author Organization [facility] Address [address] [place] [address] Care Team Providers Care Excelsior Machine Operator Name Role Phone Danny Obrien MD Primary Care Provider [phone] Kenna Sheehan PA-C Unavailable [phone] Source Comments In the event this information is protected by the Federal Confidentiality of Alcohol and Drug AbusePatient Records regulations: The Federal rules restrict any use of the information to criminally investigate or prosecute any alcohol or drug abuse patient.[facility] Encounter Details Date Type Department Care Team (Late st Contact Info) Description 10/04/2023 Get Medical Advice Neurology [address] [place] [address] [place] [address] Samuel Lira MD [address] [place] [address] [place] Social History Tobacco Use Types Packs/Day Years [...] is lower risk 4 01/12/2023 Data from: https://www.neighborhoodatlas.medicine.[facility]/. Last address used for calculation [address] 01/12/2023 Comments No Sex and Gender Information Value [...] on filedocumented in this encounter Care Teams Excelsior Machine Operator Relationship Specialty Start Date End Date Danny Obrien MD PCP - General Family Medicine 06/05/12 Kenna Sheehan PA-C [address] [facility] [address] [place] [address] Referring Neurology 07/19/22 documented as of this encounter
--- OUTSIDE RECORDS SUMMARY | 2025-01-31 21:17 | XMS_ITS | Encounter Summary ---
Author Organization [facility] Address [address] [place] [address] Care Team Providers Care Television Journalist Name Role Phone Danny Obrien MD Primary Care Provider [phone] Encounter Details Date Type Department Care Team (Late Contact Info) Description 01/21/2025 Bamboo flowsheet [facility] [address] [place] [address] Dominic Irby MD [address] [facility] [address] [place] [address] Social History Tobacco Use Types Packs/Day Years [...] MD [address] [place] [address] 03/30/2025 8:00 AM EST Office Visit [facility] [address] [place] [address] Dominic Irby MD [address] [facility] [address] [place] [phone] 04/14/2025 8:30 AM EST Office Visit [facility] [place] [address] [facility] [place] [address] Tommie Raymond DO [address] [facility] [place] [address] documented as of this encounter Visit Diagnoses Not on filedocumented in this encounter Care Teams Television Journalist Relationship Specialty Start Date End Date Danny Obrien MD [address] [facility] [place] [address] PCP - General Family Medicine 12/12/22 documented as of this encounter
--- OUTSIDE RECORDS SUMMARY | 2025-01-31 21:17 | XMS_ITS | Encounter Summary ---
Author Organization [facility] Address [address] [place] [address] Care Team Providers Care Grout Machine Tender Name Role Phone Danny Obrien MD Primary Care Provider [phone] Encounter Details Date Type Department Care Team (Latest Contact Info) Description 01/28/2025 Travel Social History Tobacco Use Types Packs/Day Years [...] Encounters Date Type Department Care Team (Late Contact Info) Description 02/18/2025 11:30 AM EDT Office Visit [facility] [address] [place] [address] Analilia Adorno MD [address] [place], [place] [phone] 03/30/2025 8:00 AM EST Office Visit [facility] [address] [place] [address] Dominic Irby MD [address] [facility] [address] [place] [address] 04/14/2025 8:30 AM EST Office Visit ERIC FIELDS [address] [facility] [place] [address] Tommie Raymond DO [address] [facility] [place] [address] documented as of this encounter Visit Diagnoses Not on filedocumented in this encounter Care Teams Grout Machine Tender Relationship Specialty Start Date End Date Danny Obrien MD [address] [facility] [place] [address] PCP - General Family Medicine 12/12/22 documented as of this encounter
--- OUTSIDE RECORDS SUMMARY | 2025-01-31 21:17 | XMS_ITS | Encounter Summary ---
Author Organization [facility] Address [address] [facility] [place] [address] Care Team Providers Care Hotbed Lever Operator Name Role Phone Danny Obrien MD Primary Care Provider [phone] Encounter Details Date Type Department Care Team (Late st Contact Info) Description 04/05/2023 External Result Encounter [facility] External Department Unsolicited Jamin Mcdaniel H, DO [address] [facility] [address] [place] [address] Social History Tobacco Use Types Packs/Day Years [...] Dermatology [address] [place] [address] Analilia Adorno MD [address] [place] [address] 03/30/2025 8:00 AM EST Office Visit [facility] [address] [place] [address] Dominic Irby MD [address] [place] [address] 04/14/2025 8:30 AM EST Office Visit [facility] [place] [address] [facility] [place] [address] Tommie Raymond DO [address] [facility] [place] [address] documented as of this encounter Procedures Procedure Name Priority Date/Time Associated Diagnosis Comments BI US GUIDED BREAST LOCALIZATION AND BIOPSY LEFT 04/05/2023 11:34 AM EST documented in this encounter Results * Left US-guided breast localization and biopsy (04/05/2023 11:34 AM EST) Anatomical Region Laterality Modality Breast Left Ultrasound 04/05/2023 11:3 4 AM EST Impressions 04/06/2023 9:27 AM EST STATUS POST ULTRASOUND-GUIDED BIOPSY OF AN ENLARGING HYPOECHOIC NODULE AT THE INFERIOR MEDIAL LEFT BREAST. Impression dictated by: Binta Elaine M.D.04/05/2023 2:04 PM Dictation Location: [facility] Transcribed By: [facility] 04/05/23 1404 Dictated By: Binta Elaine MD 04/05/23 1134 Signed By: <Electronically signed by MD Binta Elaine in OV> 04/05/23 1404 Narrative 04/06/2023 9:27 AM EST [facility] Main [address] [address] Mammography Report Signed with Gregenda Patient: Brittanie Bradley MR#: [id number] : 1985 Acct:[id number] Age/Sex: 38 / F ADM Date: 04/05/23 Loc: [facility] Room: Type: 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 It is therefore uncertain whether or not resection should be performed. If there is no further intervention, ultrasound follow-up in 6 months is suggested. Impression dictated by: Binta Elaine M.D.04/17/2023 7:37 AM Dictation Location: [place] [address] Addendum Dictated By: MD Binta Elaine Addendum Signed By: <Electronically signed by MD Binta Elaine in OV> 04/17/23736 Addendum Cosigned By: DD/ TD/TT: 04/17/23 LEFT BREAST ULTRASOUND-GUIDED BIOPSY WITH VACUUM ASSISTANCE CLINICAL DATA: Enlarging hypoechoic nodular area. The procedure was discussed with the patient and consent was obtained. Ultrasound survey at the inferior medial breast shows the enlarging lobulated hypoechoic nodular area at 7:00. Following sterile preparation and local anesthesia with lidocaine, a 12-gauge vacuum- assisted needle was advanced into the lesion under [...] medial breast. MM/MM post biopsy LT w/CAD Procedure Note Radiology, Radiologist, - 04/23/2023 [facility] Main [place] [address] [place] [address] Mammography Report Signed with Addenda Patient: Brittanie Bradley MMR#: [id number] : 1985Acct:[id number] Age/Sex: 38 / FADM Date: 04/05/23 Loc: [facility] Room:Type: [facility] Attending Dr: Jamin Mcdaniel DO Copies to: MD Jamin Saleh DO Ordering Provider: Jamin Mcdaniel DO Date of Service: 04/05/23 US/US breast ndl core biopsy LT: N63.20 ([id number]) MM/MM post biopsy LT w/CAD: POST BIOPSY CLIP PLACEMENT ADDENDUM 1 Patient's pathology results for the left breast biopsy show a benignspindle cell neoplasm and detached small fragments of benign intraductal papilloma. 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 It is therefore uncertain whetheror not resection should be performed. If there is no further intervention, ultrasound follow-up in 6months is suggested. Impression dictated by: Binta Elaine M.D.04/17/2023 7:37 AM Dictation Location: [place] [address] Addendum Dictated By: MD Binta Elaine Addendum Signed By: <Electronically signed by MD Binta English in OV> 04/17/23736 Addendum Cosigned By: DD/ TD/TT: 04/17/23 LEFT BREAST ULTRASOUND-GUIDED BIOPSY WITH VACUUM ASSISTANCE CLINICAL DATA: Enlarging hypoechoic nodular area. The procedure was discussed with the patient and consent was obtained.Ultrasound survey at the inferior medial breast shows the enlarging lobulated hypoechoic nodulararea at 7:00. Following sterile preparation and local anesthesia with lidocaine, a 20-uubgmspvgxm-calvviir needle was advanced into the lesion under direct ultrasound visualization. Coretissue samples were obtained. Before the needle was removed, a biopsy marking clip was placed. Therewere no immediate complications. DIAGNOSTIC LEFT MAMMOGRAM - FULL FIELD DIGITAL Craniocaudal and true lateral views of the breast were obtained usinglow-dose digital technique. Comparison is made to the previous mammograms from October 12, 2022. The breast parenchyma is heterogeneously dense. There is a new biopsymarking clip and subcutaneous air associated with a nodular asymmetry at the inferior medial breast. MM/MM post biopsy LT w/CAD IMPRESSION: STATUS POST ULTRASOUND-GUIDED BIOPSY OF AN ENLARGING HYPOECHOIC NODULE ATTHE INFERIOR MEDIAL LEFT BREAST. Impression dictated by: Binta Elaine M.D.04/05/2023 2:04 PM Dictation Location: [facility] Transcribed By: JADEN 04/05/23 1404 Dictated By: Binta Elaine MD 04/05/23 1134 Signed By: <Electronically signed by MD Binta Elaine in OV> 04/05/23 1404 us Jamin Mcdaniel DO IMG US PROCEDURES Edited Result - Final documented in this encounter Visit Diagnoses Not on filedocumented in this encounter Care Teams Hotbed Lever Operator Relationship Specialty Start Date End Date Danny Obrien MD [address] [place] [address] PCP - General Family Medicine 12/12/22 documented as of this encounter
--- OUTSIDE RECORDS SUMMARY | 2025-01-31 21:17 | XMS_ITS | Clinical Summary ---
Author Organization [facility] Healthcare Address [address] [place] [address] Care Team Providers Care Cinder Crane Operator Name Role Phone Danny Obrien MD Primary Care Provider [phone] Allergies Active Allergy Reactions Criticality Noted Date Comments Caffeine GI intolerance,Unknown Medium 06/13/2012 Other Reaction(s): Vomiting Dihydroergotamine Unknown 01/15/2023 Droperidol Other Medium 07/30/2024 Other Reaction(s): Other: See Comments Severe restless leg flare up Metoclopramide Other 06/17/2024 Other Reaction(s): Worsens restless leg Metoprolol Swelling Low 05/01/2023 Promethazine Other 11/20/2024 Wound Dressing Adhesive Unknown,Rash Low 07/28/2022 Medications ondansetron ODT (Zofran-ODT) 4 MG disintegrating tablet 3 Active pyridoxine (B-6) 100 MG tablet Take 100 mg by mouth in the morning. Active tiZANidine (Zanaflex) 4 MG tablet 1 (one) time each day at the same time Active OnabotulinumtoxinA (BOTOX IJ) Active cyclobenzaprine (Flexeril) 5 MG tablet Take 5 mg by mouth as needed at bedtime Active diazePAM (Valium) 10 MG tablet Active cetirizine (ZyrTEC) 10 MG tablet Take 10 mg by mouth in the morning. 3 Active HYDROcodone-acetam inophen ([place]) 5-325 MG tablet Take 0.5 tablets by mouth Daily as needed 3 Active diclofenac (Voltaren) 50 MG EC tabletIndications: Neck pain TAKE 1 TABLET BY MOUTH TWICE A DAY NEEDED FOR 10 DAYS 20 tablet 4 Active Ivermectin (Soolantra) 1 % creamIndications:O ther rosacea Apply thin layer to face, once daily at bedtime, 30 day supply 45 g 11 5 Active doxepin (SINEquan) 10 MG capsule 5 Active traZODone (Desyrel) 50 MG tablet 1 (one) time each day at the same time 5 Active pramipexole (Mirapex) 1 MG tabletIndications: RLS (restless legs syndrome) Take 3 tablets (3 mg) by mouth at bedtime 90 tablet 3 5 025 Active doxycycline (Monodox) 100 MG capsuleIndications :Cellulitis of left thumb Take 1 capsule, by mouth, BID, 30 days 60 capsule 11 5 Active pramipexole (Mirapex) 1 MG tablet Take 1 mg by mouth in the morning. 3 025 Discontin ued(Reord er) Rimegepant Sulfate (Nurtec) 75 MG tablet dispersible DISSOLVE ONE TABLET BY MOUTH AT ONSET OF MIGRAINE Oral for 30 025 Discontin ued(Thera py completed ) sulfamethoxazole-t rimethoprim (Bactrim DS) 800-160 MG per tablet Take 1 tablet by mouth in the morning and 1 tablet before bedtime. 3 025 Discontin ued(Thera py completed ) minocycline 100 MG capsuleIndications :Other rosacea Take 1 capsule, by mouth, once daily, 30 days 30 capsule 11 5 025 Discontin ued(Side effects) clindamycin (Cleocin) 300 MG capsuleIndications :Cellulitis of left thumb Take 1 capsule by mouth bid x 7 days 14 capsule 5 025 Discontin ued(Thera py completed ) Active Problems Problem Noted Date Diagnosed Date Trapezius muscle spasm 01/21/2025 Abdominal pain 11/20/2024 Abnormal ultrasound of breast 11/20/2024 Abnormal weight gain 11/20/2024 Arthritis 11/20/2024 Change in bowel habit 11/20/2024 Cholelithiasis 11/20/2024 Elevated blood pressure read ing without diagnosis of hypertension 11/20/2024 Female pelvic congestion syndrome 11/20/2024 Migraine without aura, intractable, with status migrainosus 11/20/2024 Other rosacea 11/20/2024 Pain in female genitalia on intercourse 11/21/19 Pelvic and perineal pain 11/20/2024 Vaginal dryness 11/20/2024 Fibroadenoma of breast, right 06/23/2024 Mass of upper outer quadrant of right breast Mass of lower outer quadrant of right breast Migraine 08/23/2023 Cervicogenic headache 08/23/2023 Myalgia 08/23/2023 Neck pain 08/23/2023 Chronic migraine without aura 08/23/2023 Insomnia, unspecified 08/23/2023 Daytime somnolence 08/23/2023 Obesity 08/23/2023 Jerking 08/23/2023 Intracranial METER SETTER disorder 08/23/2023 RLS (restless legs syndrome) 08/23/2023 Iron deficiency anemia, unspecified 08/23/2023 Cervical dystonia 08/23/2023 Diffuse pain 08/23/2023 Masses of both breasts 04/18/2023 Difficulty breathing 01/05/2023 Hyperlipidemia 01/05/2023 Intrauterine ([facility]) 07/25/2016 labor ([facility]) 07/19/2016 Encounters Date Type Department Care Team Description 01/28/2025 11:15 AM EDT Office Visit [facility] [address] [place] [address] Kayla Bedolla MD Other rosacea (Primary Dx); Cellulitis of left thumb 01/28/2025 Bamboo flowsheet [facility] [address] [place] [address] Kayla Bedolla MD 01/28/2025 Travel 01/26/2025 Results Follow-Up [facility] [address] [place] [address] Kayla Bedolla MD Aerobic culture, RESULT 01/21/2025 2:00 PM EDT Office Visit [facility] [place] [facility] [address] [place] [address] Kayla Bedolla MD Cellulitis of left thumb (Primary Dx) 01/21/2025 8:00 AM EDT Office Visit [facility] [place] [facility] [address] [place] [address] Dominic Irby MD RLS (restless legs syndrome) (Primary Dx); Cervical dystonia; Cervicogenic headache; Intractable chronic migraine without aura and with status migrainosus 01/21/2025 Orders Only [facility] External Department Unsolicited Kayla Bedolla MD 01/21/2025 Telephone [facility] [place] [facility] [address] [place] [address] Dominic Irby MD 01/21/2025 Bamboo flowsheet [facility] [address] [facility] [place] [address] Dominic Irby MD 01/21/2025 Travel 12/04/2024 Telephone [facility] [place] [facility] [address] [place] [address] Linn Mosquera MA Medication Problem 11/27/2024 7:15 AM EDT Ancillary Procedure [facility] [address] [place] [address] Cervical dystonia; RLS (restless legs syndrome) 11/27/2024 Results Follow-Up [facility] [address] [place] [address] Dominic Irby MD MR cervical spine wo contrast 11/27/2024 Travel 11/25/2024 11:25 AM EDT Office Visit [facility] [place] [facility] [address] [place] [address] Kayla Bedolla MD Other rosacea (Primary Dx); Inflamed skin tag 11/25/2024 Bamboo flowsheet [facility] [address] [place] [address] Kayla Bedolla MD 11/25/2024 Travel 11/20/2024 9:00 AM EDT Office Visit [facility] [place] [facility] [address] [place] [address] Dominic Irby MD Cervical dystonia (Primary Dx); RLS (restless legs syndrome) 11/20/2024 Bamboo flowsheet [facility] [address] [facility] [address] Dominic Irby MD 11/20/2024 Travel 11/11/2024 11:35 AM EDT Office Visit [facility] [place] [facility] [address] [place] [address] Kayla Bedolla MD Other rosacea (Primary Dx) 11/11/2024 Bamboo flowsheet [facility] [place] [facility] [address] [place] [address] Kayla Bedolla MD 11/11/2024 Travel 11/10/2024 Refill [facility] [address] [place] [address] Nae Velez, DIGITIZER OPERATOR-DIRECTOR DIGITAL ADVERTISING Other rosacea from Last 3 Months Family History Medical History Relation Name Comments Migraines Mother Hypertension Other Relation Name Status Comments Brother Alive Daughter 1 Alive Daughter 2 Alive Father Alive Mother Alive Other Sister 1 Alive Sister 2 Alive Son 1 Alive Son 2 Alive Social History Tobacco Use Types Packs/Day Years Used Date Smoking Tobacco: Never Smokeless Tobacco: Never Tobacco Cessation:Counseling Given: Not Answered Alcohol Use Standard Drinks/Week Comments Never 0 [...] Mass Index 29.81 01/21/2025 8:00 AM EDT Plan of Treatment Upcoming Encounters Date Type Department Care Team (Late st Contact Info) Description 02/18/2025 11:30 AM EDT Office Visit [facility] [address] [place] [address] Analilia Adorno MD [address] [place], [place] [id number] 03/30/2025 8:00 AM EST Office Visit [facility] [address] [place] [address] Dominic Irby MD [address] [facility] [address] [address] [place] [id number] 04/14/2025 8:30 AM EST Office Visit [facility] [address] [facility] [facility] [place] [address] Tommie Raymond DO [address] [place], [place] [phone] Procedures Procedure Name Priority Date/Time Associated Diagnosis Comments RESULT Routine 01/21/2025 2:36 PM EDT CULTURE, AEROBIC BACTERIA Routine 01/21/2025 2:36 PM EDT MR CERVICAL SPINE WO CONTRAST Routine 11/27/2024 8:01 AM EDT Cervical dystonia RLS (restless legs syndrome) from Last 3 Months Results * RESULT (01/21/2025 2:36 PM EDT) RESULT Comment [facility] Comment:No growth in 36 - 48 hours. 01/21/2025 2:36 PM EDT 01/21/2025 Narrative [facility] - 01/24/2025 10:07 AM EDT Performed at: [address] [place] [id number] Build Master: Bentley Leggett PhD, Phone: [phone] us Kayla Bedolla MD LAB BLOOD ORDERABLES Final Re sult Performing Organization Address [facility] Co de Phone Number [facility] * Aerobic culture (01/21/2025 2:36 PM EDT) CULTURE, AEROBIC BACTERIA Final report [facility] 01/21/2025 2:36 PM EDT 01/21/2025 Narrative [facility] - 01/24/2025 10:07 AM EDT Performed at: [facility] [id number] Build Master: Bentley Leggett PhD, Phone: [phone] us Kayla Bedolla MD LAB MICROBIOLOGY - GENERAL OR DERABLES Final Result Performing Organization Address [facility] de Phone Number [facility] * MR cervical spine wo contrast (11/27/2024 8:01 AM EDT) Anatomical Region Laterality Modality Spine, C-spine Magnetic Resonan ce 11/27/2024 11:0 3 AM EDT Impressions 11/27/2024 11:05 AM EDT Unremarkable MRI cervical spine. ELECTRONICALLY SIGNED BY: MD Tommy Forte 11/27/2024 11:05 AM EDT EXAMINATION/TECHNIQUE: MR CERVICAL SPINE WO CONTRAST HISTORY: [...] canal and foramina are without significant narrowing. Procedure Note Madan Pelaez MD - 11/27/2024 EXAMINATION/TECHNIQUE: MR CERVICAL SPINE WO CONTRAST HISTORY: Chronic neck pain. COMPARISON: None. RESULT: CERVICAL: Counting reference: Craniocervical junction. Alignment: Alignment is anatomic. Bone marrow signal/fracture: No evidence for acute or chronic fracture.No pathologic marrow infiltration. Craniocervical junction: Craniocervical junction is unremarkable. Cord: The cervical spinal cord is within normal limits of signalintensity and morphology. Cervical soft tissues: Subcentimeter nodules right thyroid, notrequiring follow- up. Otherwise unremarkable. C2-C3: No significant canal or foraminal narrowing. C3-C4: No significant canal or foraminal narrowing. C4-C5: No significant canal or foraminal narrowing. C5-C6: No significant canal or foraminal narrowing. C6-C7: No significant canal or foraminal narrowing. C7-T1: No significant canal or foraminal narrowing. Upper thoracic spine: Visualized upper thoracic canal and foramina arewithout significant narrowing. IMPRESSION: Unremarkable MRI cervical spine. ELECTRONICALLY SIGNED BY: Madan Pelaez MD Dominic Irby MD IMG MRI PROCEDURES Final Resu lt from Last 3 Months Insurance [employer] [facility] Address: [facility] [id number] [place] [address] Care Teams Cinder Crane Operator Relationship Specialty Start Date End Date Danny Obrien MD [address] [place] [address] PCP - General Family Medicine 12/12/22
--- OUTSIDE RECORDS SUMMARY | 2025-01-31 21:17 | XMS_ITS | Encounter Summary ---
Author Organization [facility] Address [address] [place] [address] Care Team Providers Care Electrician Assistant Name Role Phone Danny Obrien MD Primary Care Provider [phone] Encounter Details Date Type Department Care Team (Late Contact Info) Description 01/28/2025 Bamboo flowsheet [facility] [address] [place] [address] Kayla Bedolla MD [address] [place] [address] Social History Tobacco Use Types Packs/Day Years [...] Dermatology [address] [place] [address] Analilia Adorno MD [address] [place] [address] 03/30/2025 8:00 AM EST Office Visit [facility] [address] [place] [address] Dominic Irby MD [address] [facility] [address] [facility] [address] [place] [address] [id number] 04/14/2025 8:30 AM EST Office Visit [facility] [place] [facility] [address] [facility] [address] [place] [address] Tommie Raymond DO [address] [facility] [place] [address] documented as of this encounter Visit Diagnoses Not on filedocumented in this encounter Care Teams Electrician Assistant Relationship Specialty Start Date End Date Danny Obrien MD [address] [facility] [place] [address] PCP - General Family Medicine 12/12/22 documented as of this encounter
--- OUTSIDE RECORDS SUMMARY | 2025-01-31 21:17 | XMS_ITS | Encounter Summary ---
Author Organization [facility] Address [address] [place] [address] Care Team Providers Care Therapeutic Activities Services Worker Name Role Phone Danny Obrien MD Primary Care Provider [phone] Kenna Sheehan PA-C Unavailable [phone] Source Comments In the event this information is protected by the Federal Confidentiality of Alcohol and Drug AbusePatient Records regulations: The Federal rules restrict any use of the information to criminally investigate or prosecute any alcohol or drug abuse patient.[facility] Encounter Details Date Type Department Care Team (Late st Contact Info) Description 04/26/2024 Patient Msg Neurology [address] [place] [address] [place] [address] Samuel Lira MD [address] [place] [address] Appointment Request Social History Tobacco Use Types Packs/Day Years [...] is lower risk 4 01/12/2023 Data from: https://www.neighborhoodatlas.medicine.[facility]/. Last address used for calculation [address] [...] on filedocumented in this encounter Care Teams Therapeutic Activities Services Worker Relationship Specialty Start Date End Date Danny Obrien MD PCP - General Family Medicine 06/05/12 Kenna Sheehan PA-C [address] [facility] [address] [place] [address] Referring Neurology 07/19/22 documented as of this encounter
--- OUTSIDE RECORDS SUMMARY | 2025-01-31 21:17 | XMS_ITS | Encounter Summary ---
Author Organization [facility] Address [address] [place] [address] Care Team Providers Care Testing Projects Administrator Name Role Phone Danny Obrien MD Primary Care Provider [phone] Kenna Sheehan PA-C Unavailable [phone] Source Comments In the event this information is protected by the Federal Confidentiality of Alcohol and Drug AbusePatient Records regulations: The Federal rules restrict any use of the information to criminally investigate or prosecute any alcohol or drug abuse patient.[facility] Encounter Details Date Type Department Care Team (Late st Contact Info) Description 09/02/2023 Patient Msg Neurology [address] [place] [address] Robert Menchaca, CLOTH FINISHER.MAINTENANCE ENGINEER [address] [place] [address] Appointment Request Social History Tobacco Use Types [...] risk 4 01/12/2023 Data from: https://www.neighborhoodatlas.medicine.[facility]/. Last address used for calculation [...] on filedocumented in this encounter Care Teams Testing Projects Administrator Relationship Specialty Start Date End Date Danny Obrien MD PCP - General Family Medicine 06/05/12 Kenna Sheehan PA-C [address] [facility] [address] [place] [address] Referring Neurology 07/19/22 documented as of this encounter
--- OUTSIDE RECORDS SUMMARY | 2025-01-31 21:17 | XMS_ITS | Encounter Summary ---
Author Organization [facility] Address [address] [facility] [place] [address] Care Team Providers Care Cisco Certified Internetwork Expert Name Role Phone Danny Obrien MD Primary Care Provider [phone] Encounter Details Date Type Department Care Team (Late st Contact Info) Description 01/26/2025 Results Follow-Up [facility] [address] [place] [address] Kayla Bedolla MD [address] [place] [address] Aerobic culture, RESULT Social History Tobacco Use Types Packs/Day Years [...] Dermatology [address] [place] [address] Analilia Adorno MD [address] [place] [address] 03/30/2025 8:00 AM EST Office Visit [facility] [address] [place] [address] Dominic Irby MD [address], [place] [id number] 04/14/2025 8:30 AM EST Office Visit [facility] [place] [facility] [address] [facility] [place] [address] Tommie Raymond DO [address] [facility] [place] [address] documented as of this encounter Visit Diagnoses Not on filedocumented in this encounter Care Teams Cisco Certified Internetwork Expert Relationship Specialty Start Date End Date Danny Obrien MD [address] [facility] [place] [place] [address] PCP - General Family Medicine 12/12/22 documented as of this encounter
--- OUTSIDE RECORDS SUMMARY | 2025-01-31 21:17 | XMS_ITS | Clinical Summary ---
Author Organization [facility] Address [address] [place] [address] Care Team Providers Care Chips Screen Tender Name Role Phone Danny Obiren MD Primary Care Provider [phone] Kenna Sheehan PA-C Unavailable [phone] Allergies Active Allergy Reactions Criticality Noted Date Comments Adhesive Rash,Other: See Comments Medium 07/28/2022 Rash and blisters Caffeine Vomiting Medium 06/13/2012 Dhe Shortness of Breath High 06/13/2012 Droperidol Other: See Comments Medium 07/30/2024 Severe restless leg flare up Metoprolol Swelling Low 05/01/2023 Medications cetirizine (ZYRTEC) 10 mg tablet 10 mg once daily. 07/27/2022 Active diazePAM (VALIUM) 10 mg tablet Take 10 mg by mouth twice daily as needed. 06/13/2022 Active HYDROcodone-indra taminophen (NORCO) 5-325 mg per tablet as needed. 06/29/2022 Acti ve pramipexole (MIRAPEX) 1 mg tablet Take 2 mg by mouth daily at bedtime. 06/28/2022 Active Minocycline HCl 100 mg tablet Take 100 mg by mouth once daily. Active cyclobenzaprine (FLEXERIL) 5 mg tablet Take 1 tablet by mouth at bedtime as needed. 30 tablet 1 09/17/2023 Active gabapentin (NEURONTIN) 600 mg tabletIndicatio ns:RLS (restless legs syndrome) Take 1 tablet by mouth daily at bedtime for 180 days. 30 tablet 5 09/21/2023 Active baclofen 10 mg tablet Take 1 tablet by mouth once daily as needed. 30 tablet 10/18/2023 Active tiZANidine (ZANAFLEX) 4 mg tablet Take 8 mg by mouth daily at bedtime. 06/08/2024 Active traMADol (ULTRAM) 50 mg tablet Take 50 mg by mouth. 06/17/2024 Active Encounters Date Type Department Care Team Description 12/17/2024 Telephone Neurology [address] [place] [address] [place] [address] Samuel Lira MD from Last 3 Months Immunizations Immunization Administration Dates Next Due tetanus diphtheria pertussis (Tdap) vaccine, age 7+ yr (ADACEL, BOOSTRIX) 01/04/2020,07/27/2016 Family History Medical History Relation Comments Psychiatry Maternal Grandfather Cancer Maternal Grandmother lung Diabetes Maternal Grandmother Headache Mother Psychiatry Mother anxiety and depr essin Cancer Paternal Grandfather Relation Status Comments Brother Alive Daughter 1 Alive Daughter 2 Alive Father Alive Maternal Grandfather Alive Maternal Grandmother Mother Alive Paternal Grandfather Paternal Grandmother Alive Sister 1 Alive Sister 2 Alive Social History Tobacco Use Types Packs/Day Years Used Date Smoking Tobacco: Never Smokeless Tobacco: Never Tobacco Cessation:Counseling Given: Not Answered Alcohol Use Standard Drinks/Week Comments No 0 (1 standard drink = 0.6 oz pur e alcohol) PHQ-2 Answer Date Recorded PHQ-2 score 2 01/12/2023 Area Deprivation Index Answer Date Derrick rded National Score (1-100), lower number is lower ri sk 61 01/12/2023 State Score (1-10), lower number is lower risk 4 01/12/2023 Data from: https://www.neighborhoodatlas.medicine.[facility].edu/. Last address used for calculation [address] 01/12/2023 Comments No Sex and Gender Information Value Date Recorded Sex Assigned at Female 07/28/2022 1:33 AM EST Legal Sex Female 4:52 PM EST Gender Identity Female 07/28/2022 1:33 AM EST Sexual Orientation Straight 07/28/2022 1: 33 AM EST Occupation Industry Job Start Date Job End Date UNKNOWN Not on file Not on file Not on file Last Filed Vital Signs Vital Sign Reading Time Taken Comments Blood Pressure 111/77 10/29/2024 4:09 PM EDT Pulse 102 10/29/2024 4:09 PM EDT Temperature 36.6 C (97.8 F) 07/28/2022 1:01 PM EST Respiratory Rate 16 06/13/2012 9:35 AM EST Oxygen Saturation 99% 10/29/2024 4:09 PM EDT Inhaled Oxygen Concentration - - Weight 74 kg (163 lb 2.3 oz) 10/29/2024 4:09 PM EDT Height 157.5 cm (5' 2 ) 10/29/2024 4:09 PM EDT Body Mass Index 29.84 10/29/2024 4:09 PM EDT Plan of Treatment Health Maintenance Due Date Last Done Comments Anxiety Screening 2005 Depression Screening 2005 HIV Screening 2005 Hepatitis C Screening 2005 Hepatitis B Vaccine (1 of 3 - 19+ 3-dose series) 2006 Cervical Cancer Screening 01/07/2008 HPV Vaccine (1 - 3-dose SCDM series) 2014 Influenza Vaccine (#1) 2025 DTaP,Tdap,Td Vaccine (3 - Td or Tdap) 01/03/2030, 07/27/2016 Insurance [employer] Care Teams Chips Screen Tender Relationship Specialty Start Date End Date Danny Obrien MD PCP - General Family Medicine 06/05/12 Kenna Sheehan PA-C [address] [place] [address] Referring Neurology 07/19/22
--- OUTSIDE RECORDS SUMMARY | 2025-01-31 21:17 | XMS_ITS | Encounter Summary ---
Author Organization [facility] Address [address] [place] [address] Care Team Providers Care Window Covering Sales Consultant Name Role Phone Danny Obrien MD Primary Care Provider [phone] Encounter Details Date Type Department Care Team (Late st Contact Info) Description 04/05/2023 External Result Encounter [facility] External Department Unsolicited Jamin Mcdaniel H, DO [address] [facility] [address] [place] [address] Social History Tobacco Use Types Packs/Day Years [...] Dermatology [address] [place] [address] Analilia Adorno MD [address] [place] [address] 03/30/2025 8:00 AM EST Office Visit [facility] [address] [place] [address] Dominic Irby MD [address] [place] [address] 04/14/2025 8:30 AM EST Office Visit [facility] CRONINGYN [address] [place] [address] Tommie Raymond DO [address] [place] [address] documented as of this encounter Procedures Procedure Name Priority Date/Time Associated Diagnosis Comments BI US BREAST LIMITED BILATERAL 04/05/2023 11:27 AM EST documented in this encounter Results * Bilateral breast US limited (04/05/2023 11:27 AM EST) Anatomical Region Laterality Modality Breast Bilateral Ultrasound 04/05/2023 11:2 7 AM EST Impressions 04/06/2023 9:27 AM EST BILATERAL HYPOECHOIC NODULARITY. THE AREA AT 7:00 ON THE LEFT MAY BE SLIGHTLY LARGER. THE REMAINING AREAS ARE SIMILAR. Impression dictated by: Binta Elaine M.D.04/05/2023 5:45 PM Dictation Location: [facility] Tech: Marlee Sánchez Transcribed By: [facility] 04/05/231744 Dictated By: Binta Elaine MD 04/05/23 1127 Signed By: <Electronically signed by MD Binta Elaine in OV> 04/05/231744 Narrative 04/06/2023 9:27 AM EST [facility] Main [address] [address] Ultrasound Report Signed Patient: Brittanie Bradley MR#: [id number] : 1985 Acct:[id number] Age/Sex: 38 / F ADM Date: 04/05/23 Loc: [facility] Room: Type: [facility] Attending Dr: Jamin Mcdaniel DO Ordering Provider: [...] of the enlargement could be related to core winder machine operator variability. At 11:00, 3 to [...] x 11 mm. US/US breast BI limited Procedure Note Radiology, Radiologist, MD - 04/06/2023 [facility] [place] [address] Ultrasound Report Signed Patient: Brittanie Bradley MMR#: [id number] : 1985Acct:[id number] Age/Sex: 38 / FADM Date: 04/05/23 Loc: [facility] Room:Type: [facility] Attending Dr: Jamin Mcdaniel DO Ordering Provider: Jamin Mcdaniel DO Date of Service: 04/05/23 US/US breast BI limited: N63.10,N63.20 Copies to: Jamin Mcdaniel DO CLINICAL DATA: History of hypoechoic nodules with enlarging lumps at the7:00 position bilaterally. LIMITED BILATERAL BREAST ULTRASOUND COMPARISON: 10/12/2022 Real-time ultrasound evaluation of the inferior right breast again shows aslightly lobulated hypoechoic nodule at 6:00, 2 to 3 cm from the nipple measuring 15 x 7 x 10mm. At 7:00, there is another hypoechoic nodule measuring 18 x 10 x 19 mm. These are similar. Onthe left at 7:00, there is a multi lobulated hypoechoic nodular area at 7:00, 5 cm the nipple.This measures approximately 2.3 x 1.1 x 2.2 cm which is slightly larger. It is possible however someof the enlargement could be related to core winder machine operator variability. At 11:00, 3 to 4 cm from the nipple thereis a cluster of hypoechoic and mixed echogenicity nodular areas. This includes ahypoechoic nodule measuring 16 x 7 x 13, a mixed echogenicity nodular area measuring 12 x 9 x 11 and anadditional hypoechoic nodular area which is slightly lobulated measuring 11 x 5 x 11 mm. US/US breast BI limited IMPRESSION: BILATERAL HYPOECHOIC NODULARITY. THE AREA AT 7:00 ON THE LEFT MAY BESLIGHTLY LARGER. THE REMAINING AREAS ARE SIMILAR. Impression dictated by: Binta Elaine M.D.04/05/2023 5:45 PM Dictation Location: [facility] Tech: Marlee Sánchez Transcribed By: JADEN 04/05/23 1745 Dictated By: Binta Elaine MD 04/05/23 1127 Signed By: <Electronically signed by MD Binta Elaine in OV> 04/05/23 1745 us Jamin Nini Mcdaniel DO IMG US PROCEDURES Final R esult documented in this encounter Visit Diagnoses Not on filedocumented in this encounter Care Teams Window Covering Sales Consultant Relationship Specialty Start Date End Date Danny Obrien MD [address] [place] [phone] PCP - General Family Medicine 12/12/22 documented as of this encounter
--- OUTSIDE RECORDS SUMMARY | 2025-01-31 21:17 | XMS_ITS | Encounter Summary ---
Author Organization [facility] Address [address] [place] [address] Care Team Providers Care Semiconductor Processing Technician Name Role Phone Danny Obrien MD Primary Care Provider [phone] Kenna Sheehan PA-C Unavailable [phone] Source Comments In the event this information is protected by the Federal Confidentiality of Alcohol and Drug AbusePatient Records regulations: The Federal rules restrict any use of the information to criminally investigate or prosecute any alcohol or drug abuse patient.[facility] Encounter Details Date Type Department Care Team (Late st Contact Info) Description 12/17/2024 Telephone Neurology [address] [facility] [place] [address] [place] [address] [place] [address] Social History Tobacco Use Types Packs/Day Years [...] is lower risk 4 01/12/2023 Data from: https://www.neighborhoodatlas.medicine.[facility].edu/. Last address used for calculation [...] encounter Miscellaneous Notes * Telephone Encounter - Annelise Khan - 12/19/2024 8:12 AM EDT 2nd attempt sent mc * Telephone Encounter - [place] [facility] - 12/17/2024 2:12 PM EDT Left voice mail for patient to reschedule appointment for Dr. Lira. documented in this encounter Plan of Treatment Not on file documented as of this encounter Visit Diagnoses Not on filedocumented in this encounter Care Teams Semiconductor Processing Technician Relationship Specialty Start Date End Date Danny Obrien MD PCP - General Family Medicine 06/05/12 Kenna Sheehan PA-C [address] [place] [address] Referring Neurology 07/19/22 documented as of this encounter
--- OUTSIDE RECORDS SUMMARY | 2025-01-31 21:17 | XMS_ITS | Encounter Summary ---
Author Organization [facility] Address [address] [place] [address] Care Team Providers Care Security Assurance Specialist Name Role Phone Danny Obrien MD Primary Care Provider [phone] Encounter Details Date Type Department Care Team (Latest Contact Info) Description 01/21/2025 Travel Social History Tobacco Use Types Packs/Day [...] Dermatology [address] [place] [address] Analilia Adorno MD [address] [place], [place] [phone] 03/30/2025 8:00 AM EST Office Visit [facility] [address] [place] [address] Dominic Irby MD [address] [facility] [address] [place] [address] 04/14/2025 8:30 AM EST Office Visit ERIC FIELDS [address] [facility] [phone] Tommie Raymond DO [address] [facility] [place] [address] documented as of this encounter Visit Diagnoses Not on filedocumented in this encounter Care Teams Security Assurance Specialist Relationship Specialty Start Date End Date Danny Obrien MD [address] [facility] [place] [phone] PCP - General Family Medicine 12/12/22 documented as of this encounter
--- OUTSIDE RECORDS SUMMARY | 2025-01-31 21:17 | XMS_ITS | Encounter Summary ---
Author Organization [facility] Address [address] [place] [address] Care Team Providers Care Congressional District Aide Name Role Phone Danny Obrien MD Primary Care Provider [phone] Kenna Sheehan PA-C Unavailable [phone] Source Comments In the event this information is protected by the Federal Confidentiality of Alcohol and Drug AbusePatient Records regulations: The Federal rules restrict any use of the information to criminally investigate or prosecute any alcohol or drug abuse patient.[facility] Encounter Details Date Type Department Care Team (Late st Contact Info) Description 04/26/2024 Patient Msg Neurology [address] [place] [address] [place] [address] Samuel Lira MD [address] [place] [address] Appointment Cancellation Request Social History Tobacco Use Types Packs/Day [...] is lower risk 4 01/12/2023 Data from: https://www.neighborhoodatlas.medicine.[facility]/. Last address used for calculation [address] [...] on filedocumented in this encounter Care Teams [place] Aide Relationship Specialty Start Date End Date Danny Obrien MD PCP - General Family Medicine 06/05/12 Kenna Sheehan PA-C [address] [facility] [address] [place] [address] Referring Neurology 07/19/22 documented as of this encounter
--- OUTSIDE RECORDS SUMMARY | 2025-01-31 21:17 | XMS_ITS | Encounter Summary ---
Author Organization [facility] Address [address] [place] [address] Care Team Providers Care Human Resources Office Manager Name Role Phone Danny Obrien MD Primary Care Provider [phone] Encounter Details Date Type Department Care Team (Late st Contact Info) Description 04/18/2023 Orders Only [facility] [address] [facility] [address] [place] [phone] Jamin Mcdaniel, DO [address] [place] [address] Social History Tobacco Use Types Packs/Day Years [...] [address] [place] [address] Analilia Adorno MD [address] [place] [address] 03/30/2025 8:00 AM EST Office Visit [facility] [address] [place] [address] Dominic Irby MD [address] [facility] [address] [place] [phone] 04/14/2025 8:30 AM EST Office Visit [facility] Ike FIELDS [address] [facility] [address] Tommie Raymond DO [address] [facility] [address] [place] [place], [place] [phone] documented as of this encounter Procedures Procedure Name Priority Date/Time Associated Diagnosis Comments BI CORE NEEDLE BIOPSY LEFT Routine 04/18/2023 9:00 AM EST documented in this encounter Results * BI core needle biopsy left (04/18/2023 9:00 AM EST) Anatomical Region Laterality Modality Breast Left Mammography Jamin Mcdaniel DO IMG BI PROCEDURES Final R esult documented in this encounter Visit Diagnoses Not on filedocumented in this encounter Care Teams Human Resources Office Manager Relationship Specialty Start Date End Date Dnany Obrien MD [address] [facility] [place] [phone] PCP - General Family Medicine 12/12/22 documented as of this encounter
--- OUTSIDE RECORDS SUMMARY | 2025-01-31 21:17 | XMS_ITS | Encounter Summary ---
Author Organization [facility] Address [address] [place] [address] Care Team Providers Care Msw Name Role Phone Danny Obrien MD Primary Care Provider [phone] Reason for Visit * Reason Comments Med Refill Encounter Details Date Type Department Care Team (Late st Contact Info) Description 09/05/2023 Refill MAGDA JACK [address] [place] [phone] Parminder Kirby DO [address] [place] [phone] Social History Tobacco Use Types Packs/Day Years [...] Dermatology [address] [place] [address] Analilia Adorno MD [address] [place], [place] [phone] 03/30/2025 8:00 AM EST Office Visit [facility] [address] [place] [address] Dominic Irby MD [address] [facility] [address] [place] [phone] 04/14/2025 8:30 AM EST Office Visit [facility] Jack FIELDS [address] [facility] [place] [address] Tommie Raymond DO [address] [facility] [address] [place], [place] [phone] documented as of this encounter Visit Diagnoses Not on filedocumented in this encounter Care Teams Msw Relationship Specialty Start Date End Date Danny Obrien MD [address] [facility] [place] [phone] PCP - General Family Medicine 12/12/22 documented as of this encounter
--- OUTSIDE RECORDS SUMMARY | 2025-01-31 21:18 | XMS_ITS | CCD ---
Author Organization [facility] Care Team Providers Care Life Insurance Specialist Name Role Phone MD Filiberto Ying Primary Care Provider PURVI Sheehan Attending Provider [phone] STEPAN .DR D ELOS SANTOS Primary Care Unavailable LAKSHMIPATHY ., NARENDRANATH [...] DR DE LOS SANTOS Primary Care Unavailable VIDLA ., CASSI Consulting Unavailable COLLAZO ., DR CHARISMA Mckoy Admitting Unavailable COLLAZO ., DR CHARISMA Mckoy Admitting Unavailable HOY ., DR DE LOS SANTOS Primary Care Unavailable VIDAL ., CASSI Consulting Unavailable COLLAZO ., DR CHARISMA Mckoy Attending Unavailable Filiberto Ying Unavailable Unavailable Unavailable MD Filiberto Ying Primary Care Provider [phone] DO Dano Pyle Attending Provider [phone] DO Roseanne Castellanos Attending Provider MD Romero Jones Referring Provider Isrrael, Dr. Soraya Mojica Attending Unavailab le Isrrael, Dr. Soraya Mojica Referring Unavailab le Stepan, Dr. Filiberto Fuller Primary Care Unavail able Unavailable Unavailable Filiberto Ying MD Primary Care Provider [phone] Kenna Sheehan PA-C [facility]available [facility] Dr. Saeed Jean-Baptiste Attending Unavailable Stepan, [...] Filiberto Ying Primary Care Provider [phone] LONNY Menchaca Attending Provider DO Dano Pyle Attending Provider [phone] MD Filiberto Ying M Primary Care Provider [phone] Filiberto Ying MD Primary Care Provider [phone] MD Filiberto Ying Primary Care Provider [phone] DO Dano Pyle Attending Provider [phone] Reuben Bauman MD Attending Unavailable Filiberto Ying MD Primary Care Provider [phone] Jonas OQUENDO, Dano Attending Provider [phone] Babar Singh PA-C Emergency Provider Filiberto Ying MD Primary Care Provider [phone] Filiberto Ying MD Primary Care Provider [phone] Jonas OQUENDO, Dano Attending Provider Babar Singh PA-C Emergency Provider [phone] Luis Goins DO Emergency Provider Filiberto Ying MD Primary Care Provider [phone] Peg Ruiz DO Emergency Provider Filiberto Ying Primary Care Unavailable Peg Ruiz Admitting Unavailable Peg Ruiz Attending Unavailable Filiberto Ying Primary Care Unavailable Babar Singh Admitting Unavailable Babar Singh Attending Unavailable Filiberto Ying Primary Care Unavailable Luis Goins Admitting Unavailable Luis Goins Attending Unavailable Itfloresita, Dano Attending Unavailable Filiberto Ying M Primary Care Unavailable Itzkojonel, Dano Admitting Unavailable Stepan, Filiberto M Primary Care Unavailable Itzkowandatz, Dano Admitting Unavailable Itzlottie, Dano Attending Unavailable Filiberto Ying Primary Care Unavailable Itzkowandatz, Dano Admitting Unavailable Itzlottie, Dano Attending Unavailable Filiberto Ying MD Primary Care Provider [phone] HARMAN SULLIVAN Referring Unavailable FILIBERTO YING Primary Care Unavailable HARMAN SULLIVAN Attending Unavailable HARMAN SULLIVAN Attending Unavailable LAURIE, HARMAN Referring Unavailable FILIBERTO YING Primary Care Unavailable LAURIE, HARMAN Attending Unavailable LAURIE, HARMAN Referring Unavailable FILIBERTO YING Primary Care Unavailable Filiberto Ying MD Primary Care Provider [phone] Filiberto Ying MD Primary Care Provider [phone] DANO PYLE Attending Unavailable PETITTI, BAN A Attending Unavailable SIS IRBY W Attending Unavailable PETITTI, BAN A Attending Unavailable SIS IRBY W Referring Unavailable IRBY SIS W Attending Unavailable PETITTI, BAN A Attending Unavailable PETITTI, BAN A Attending Unavailable Allergies Allergy Classification Reported Allergen(s) Allergy Type Date of Onset Reaction(s) Facility (20 sources) Caffeine; Translations: [Caffeine] Drug Allergy 06-13-19 13 Vomiting, GI intolerance, Unknown [facility] (20 sources) DHE; Translations: [Dhe] Allergy to substance 06-13-19 13 Shortness of Breath [facility] (20 sources) Adhesive agent; Translations: [ADHESIVE] Propensity to adverse reactions to drug 07-29-19 Other: See Asa, Yamilet [facility] (20 sources) Adhesive Tape Allergy to substance (finding) 10-24-19 [facility] (9 sources) prasterone; Translations: [DHEA CAPS] Drug Allergy -[facility] [facility] DO Work Phone: (20 sources) Metoprolol; Translations: [METOPROLOL] Drug Allergy 05-01-20 23 Swelling [facility] (20 sources) Metoclopramide Drug Allergy 05-15-20 23 Other [facility] (20 sources) Dihydroergotamine Drug Allergy 01-16-20 23 Unknown [facility] (20 sources) Wound Dressing Adhesive Drug Intolerance 07-29-19 23 Unknown, Yamilet [facility] (6 sources) Droperidol; Translations: [DROPERIDOL] Drug Allergy 07-31-19 Other: See Comments [facility] (15 sources) Promethazine Drug Allergy 10-23-19 Other [facility] (14 sources) Droperidol Propensity to adverse reactions 07-31-19 Other [facility] Medications Current Medications Medication Drug [...] tablet (20 sources) Histamine-1 Receptor Antagonist Start: 020 End: take 1 tablet by mouth in the morning cetirizine (ZyrTEC) 10 MG tablet Take 10 mg by mouth in the morning. 07/27/2022 Active Comment on above: 10 mg once daily. clindamycin 300 mg oral capsule (6 sources) Lincosamide Antibacterial Start: 025 End: take 1 capsule by mouth twice daily clindamycin (Cleocin) 300 MG capsule Indications: Cellulitis of left thumb Take 1 capsule by mouth bid x 7 days 14 capsule 01/21/2025 01/28/2025 Discontinued (Therapy completed) cyclobenzaprine hydrochloride 5 mg oral tablet (20 sources) Muscle Relaxant Start: 023 End: take 1 tablet by [...] tablet (20 sources) Nonsteroidal Anti-inflammatory Drug Start: take 1 [...] needed. doxepin hydrochloride 10 mg oral capsule (20 sources) Tricyclic Antidepressant Start: 09-18-2024 doxepin (SINEquan) 10 MG capsule 09/18/2024 Active Start: 10-14-2019 End: 12-24-2020 take 2 capsules [...] 14, 2019 12:00am December 24, 2020 12:23pm doxycycline monohydrate 100 mg oral capsule (2 sources) Tetracycline-class Drug Start: 01-28-2025 take 1 capsule by mouth twice daily doxycycline (Monodox) 100 MG capsule Indications: Cellulitis of left thumb Take 1 capsule, by mouth, BID, 30 days 60 capsule 11 01/28/2025 Active Start: 01-28-2025 take 1 capsule by mo [facility] twice daily doxycycline (Monodox) 100 MG capsule Indications: Cellulitis of left thumb Take 1 capsule, by mouth, BID, 30 days 60 capsule 11 01/28/2025 Active gabapentin 600 mg oral tablet (13 sources) Anti-epileptic Agent Start: 09-21-2023 End: 03-19-2024 take 1 tablet by mouth once daily at bedtime gabapentin (NEURONTIN) 600 mg tablet Indications: RLS (restless legs syndrome) Take 1 tablet by mouth daily at bedtime for 180 days. 30 tablet 5 09/21/2023 Active ivermectin 10 mg/ml topical cream (17 sources) Antiparasitic, Pediculicide Start: 11-11-2024 Ivermectin (Soolantra) 1 % cream Indications: Other rosacea Apply thin layer to face, once daily at bedtime, 30 day supply 45 g 11 11/11/2024 Active minocycline 100 mg oral capsule (20 sources) Tetracycline-class Drug Start: 11-11-2024 End: 01-28-2025 take 1 capsule by mouth once daily minocycline 100 MG capsule Indications: Other rosacea Take 1 capsule, by mouth, once daily, 30 days 30 capsule 11 11/11/2024 01/28/2025 Discontinued (Side effects) Start: 07-30-2023 End: 11-11-2024 take 1 capsule by mouth once daily minocycline 50 MG capsule Indications: Other rosacea Take 1 capsule, by mouth, every day, 30 days 30 capsule 11 07/30/2023 11/11/2024 Discontinued (Ineffective) Start: 10-14-2019 End: 05-01-2023 take 1 capsule by mouth once daily Minocycline 50 mg capsule Discontinued 50 MG PO Daily October 14, 2019 12:00am May 01, 2023 12:55pm take 1 tablet by klever once daily Minocycline HCl 100 mg tablet [...] tablet (20 sources) Nonergot Dopamine Agonist Start: 01-22-20 End: 02-21-20 take 3 tablets by mouth at bedtime pramipexole (Mirapex) 1 MG tablet Indications: RLS (restless legs syndrome) Take 3 tablets (3 mg) by mouth at bedtime 90 tablet 3 01/21/2025 02/20/2025 Active Start: 06-28-2022 End: 01-21-2025 take 1 tablet by mouth in the morning pramipexole (Mirapex) 1 MG tablet Take 1 mg by mouth in the morning. 06/28/2022 01/21/2025 Discontinued (Reorder) Start: 06-28-2022 take 2 tablets by mo [...] 1 mg by mouth o nce daily. SZSTANDARD1 cream (1 source) Start: SZSTANDARD1 cream Active 1 - 2 GM TOPICAL every 6 to 8 hours as needed for Pain 120 October 22, 2024 12:00am Buderer Compounded Item: Baclofen 2%, Cyclobenzaprine HCl 2%, Diclofenac Na 3%, Gabapentin 6%, Lidocaine HCl 2% Cream Sig: as directed rub 1 to 2 grams for 2 to 3 minutes every 6 to 8 hours as needed Topical tiZANidine 4 mg oral tablet (20 sources) Central alpha-2 Adrenergic Agonist Start: take 1 tablet by mouth once daily [...] 17, 2024 1:00am August 01, 2024 8:23am traZODone hydrochloride 50 mg oral tablet (9 sources) Serotonin Reuptake Inhibitor Start: 12-12-2024 traZODone (Desyrel) 50 MG tablet 1 (one) time each day at the same time 12/12/2024 Active vitamin b6 100 mg oral tablet (20 sources) take 1 tablet by mouth in [...] mouth every twenty-four hours as needed HYDROcodone-acetaminophen ([place]) 5-325 MG tablet Take 0.5 tablets by [...] eight hours as needed for pain Hydrocodone-Acetaminophen ([place]) 5-325 mg tablet Discontinued 1 TAB PO [...] mouth. 11/20/2024 Discontinued onabotulinumtoxina 100 unt injection (20 sources) Acetylcholine Release Inhibitor Start : 10-29 [...] capsule Discontinued 500 MG PO Twice daily 14 September 17, 2024 12:00am October 22, 2024 3:52pm [...] 1 tablet by klever three times daily. diazePAM 5 mg oral [...] mg by mouth twice daily as needed. L Norgest/E.Estradi ol-E.Estrad (20 sources) Progestin, Estrogen, Progestin-containing Intrauterine Device Start: 10-14-2019 End: 05-01-2023 take 1 tablet by mouth once daily L Norgest/E.Estradiol-E .Estrad 0.15 mg-30 mcg (84)/10 mcg (7) tablets,dose [...] MOUTH EVERY DAY Oral for 91 Active ezetimibe 10 mg oral tablet (20 [...] 400 mg oral tablet (9 sources) End: magnesium oxide (Mag-Ox) 400 MG tablet Take [...] release oral tablet (12 sources) Biguanide Start: 023 End: 025 take 1 tablet by mouth every twenty-four [...] EVERY DAY AT BEDTIME 03/06/2022 11/20/2024 Discontinued Wkthdxby-Ho-Piz-Fe-FA (P-D CARTER PLUS) Tab (2 sources) End: 2022 take 1 tablet by mouth once daily Toruyryt-Es-Mhw-Fe-FA (P-D PLUS) Tab Take 1 tablet by mouth once daily. 0 08/01/2022 Discontinued (Course of therapy completed) take 1 tablet by mouth once ute y Nzwincms-Re-Stp-Fe-FA (P-D CARTER PLUS) Tab Take 1 tablet [...] tablet by klever th three times daily. rimegepant 75 mg disintegrating oral tablet (13 sources) End: 025 Rimegepant Sulfate (Nurtec) 75 MG tablet dispersible DISSOLVE ONE TABLET BY MOUTH AT ONSET OF MIGRAINE Oral for 30 01/20/2025 Discontinued (Therapy completed) simvastatin 40 mg oral tablet (20 sources) HMG-CoA Reductase Inhibitor End: 025 take 1 tablet by mouth at bedtime simvastatin (Zocor) 40 MG tablet Take 40 mg by mouth at bedtime. 11/20/2024 Discontinued Comment on above: 40 mg once daily. 1000 ml sodium chloride 9 mg/ml injection (1 source) Start: 013 End: 023 0.9 % SODIUM CHLORIDE (NACL) 0.9% solution Indications: Headache(784.0) Inject 500 mL intravenously as directed. INFUSE 500 CC IV NS IV OVER 30 MIN 500 mL 0 06/13/2012 07/28/2022 Discontinued (Course of therapy completed) Comment on above: Inject 500 mL intrav enously as directed. INFUSE 500 CC IV NS IV OVER 30 MIN sulfamethoxazole 800 mg / trimethoprim 160 mg oral tablet (13 sources) Dihydrofolate Reductase Inhibitor Antibacterial, Sulfonamide Antimicrobial Start: 023 End: 025 take 1 tablet by mouth once in the morning, then take 1 tablet by mouth once at bedtime sulfamethoxazole-tri methoprim (Bactrim DS) 800-160 MG per tablet Take 1 tablet by mouth in the morning and 1 tablet before bedtime. 12/15/2022 01/20/2025 Discontinued (Therapy completed) topiramate (20 sources) Start: 020 End: 023 take 1 capsule by mouth once daily [...] for seeking consultation] Episodic Biliary tract disease (20 sources) Biliary calculus; Translations: [Calculus of gallbladder without cholecystitis without obstruction] Onset: 11-20-2024 10-14-2019 Episodic Cardiac dysrhythmias (2 sources) Tachycardia, unspecified; Translations: [Sinus tachycardia] Onset: 12-28-2022 Episodic Disorders of lipid metabolism (20 sources) Hyperlipidemia; Translations: [Other and unspecified hyperlipidemia] [...] Translations: [Other chest pain] 09-17-2024 Episodic Osteoarthritis (14 sources) Arthritis; Translations: [Unspecified osteoarthritis, unspecified site] Onset: 11-20-2024 11-20-2024 Chronic Other and unspecified benign neoplasm (4 sources) Fibroadenoma of right breast; Translations: [Benign neoplasm of right breast] Onset: 06-23-2024 06-23-2024 Episodic Other circulatory disease (20 sources) Elevated blood-pressure reading without diagnosis of [...] involving the musculoskeletal system] 01-12-2023 Episodic Other connective tissue disease (8 sources) Muscle spasm of cervical muscle of neck; Translations: [Other muscle spasm] Onset: 01-21-2025 01-21-2025 Episodic Other female genital disorders (14 sources) Pain in female genitalia on intercourse; Translations: [Unspecified dyspareunia] Onset: 11-20-2024 11-20-2024 Chronic Other female genital disorders (14 sources) Pelvic congestion syndrome; Translations: [Other specified conditions associated with female genital organs and menstrual cycle] Onset: 11-20-2024 11-20-2024 Episodic Other female genital disorders (14 sources) Vaginal dryness; Translations: [Other specified noninflammatory disorders of vagina] Onset: 11-20-2024 11-20-2024 Episodic Other gastrointestinal disorders (14 sources) Altered bowel function; Translations: [Change in bowel habit] Onset: 11-20-2024 11-20-2024 Episodic Other hereditary and degenerative nervous system conditions (1 source) Spasmodic torticollis; 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 TORTICOLLIS] Onset: 04-10-2022 Chronic Other hereditary and degenerative nervous system conditions (20 sources) Isolated cervical dystonia; Translations: [Spasmodic torticollis] Onset: 08-23-2023 01-12-2023 Chronic Other hereditary and degenerative nervous system conditions (20 sources) Restless legs; Translations: [Restless legs syndrome] Onset: 08-23-2023 01-12-2023 Chronic Other inflammatory condition of skin (20 sources) Rosacea; Translations: [Other rosacea] Onset: 11-20-2024 11-11-2024 Chronic Other nervous system disorders (5 sources) Other specified mononeuropathies; Translations: [OTHER SPECIFIED MONONEUROPATHIES] Onset: 02-16-2022 Chronic Other nervous system disorders (20 sources) Disorder of brain; Translations: [Disorder of brain, unspecified] Onset: 08-23-2023 08-23-2023 Chronic Other nervous system disorders (1 source) Chronic pain; Translations: [Other chronic pain] 10-22-2024 Chronic Other nervous system disorders (1 source) Other chronic pain; Translations: [Other chronic pain] 10-22-2024 Chronic Other nutritional; endocrine; and metabolic disorders (20 sources) Obesity; Translations: [Obesity, unspecified] Onset: 08-23-2023 08-23-2023 Chronic Other nutritional; endocrine; and metabolic disorders (1 source) Overweight in adulthood with body mass index of 25 or more but less than 30; Translations: [Overweight] Episodic Other nutritional; endocrine; and metabolic disorders (14 sources) Abnormal weight gain; Translations: [Abnormal weight gain] Onset: 11-20-2024 11-20-2024 Episodic Other screening for suspected conditions (not mental disorders or infectious disease) (18 sources) Encounter for screening for malignant neoplasm of cervix; Translations: [Ultrasonography of breast abnormal] Onset: 01-09-2022 Episodic Other skin disorders (2 sources) Skin tag; Translations: [Other hypertrophic disorders of the skin] 11-25-2024 Episodic Residual codes; unclassified (11 sources) Obstructive sleep apnea syndrome; Translations: [Obstructive sleep apnea (adult) (pediatric)] Onset: 08-23-2023 08-23-2023 Chronic Skin and subcutaneous tissue infections (4 sources) Cellulitis of left thumb; Translations: [Cellulitis of left finger] 01-21-2025 Episodic Spondylosis; intervertebral disc disorders; other back [...] Date Episodic/Chronic Coma; stupor; and brain damage (20 sources) Daytime somnolence; Translations: [Somnolence] Onset: 08-23-2023 08-23-2023 Episodic Deficiency and other anemia (20 sources) Iron deficiency anemia; Translations: [Iron deficiency anemia, unspecified] Onset: 08-23-2023 08-23-2023 Episodic Early or threatened labor (14 sources) Premature labor; Translations: [ labor without [...] 04-05-2023 Episodic Other and unspecified benign neoplasm (18 sources) Benign neoplasm of right breast; Translations: [Benign neoplasm of breast] Onset: 06-23-2024 06-23-2024 Episodic Other connective tissue disease (1 source) Other muscle spasm; Translations: [OTHER MUSCLE SPASM] Onset: 04-10-2022 Episodic Other connective tissue disease (20 sources) Muscle pain; Translations: [Myalgia, unspecified site] Onset: 08-23-2023 08-23-2023 Episodic Other lower respiratory disease (20 sources) Difficulty breathing; Translations: [Other respiratory abnormalities] Onset: 01-05-2023 11-20-2024 Episodic Other nervous system disorders (20 sources) Spasmodic movement; Translations: [Fasciculation] Onset: 08-23-2023 08-23-2023 Episodic Other and delivery including normal (14 sources) Intrauterine ; Translations: [Encounter for supervision of normal , unspecified, unspecified trimester] Onset: 07-25-2016 11-20-2024 Episodic Residual codes; unclassified (20 sources) Insomnia; Translations: [Insomnia, unspecified] Onset: 08-23-2023 08-23-2023 Episodic Residual codes; unclassified (20 sources) Diffuse pain; Translations: [Pain, unspecified] Onset: 08-23-2023 08-23-2023 Episodic Spondylosis; intervertebral disc disorders; other back problems (20 sources) Chronic neck pain; Translations: [Cervicalgia] Onset: 02-20-2022 Episodic Unclassified (9 sources) Never smoked tobacco; Translations: [Never a smoker] Results Test Name Value Interpretation Reference Range Facility Aerobic cultureon 01-24-2025 Microorganism or agent identified Nom (Unsp spec) Final report [facility] No Panel Informationon 01-24 Performed at: 01 - [address] [id number] [place] Layer: Bentley Leggett PhD, Phone: [phone] [facility] RESULTon 01-24-2025 Bacteria identified Cx Nom (Unsp spec) Comment [facility] Comment on above: No growth in 36 - 48 hours. [facility] MR CERVICAL SPINE WO CONTRAS Ton 11-27-2024 [...] Not Available CNOVon 10-29-2024 CNOV Office Visit ([facility] ) BRITTANIE GARCIA ([id number]) 1985 F Date Time Provider Department 10/29/24 4:30 PM HARMAN SULLIVAN [facility] During your visit today, we recorded [...] brought in by patient? No Lot #: [id number] Exp: 09/2026 Dilution: 5 units/0.1 ml (100 [...] Optional follow pain # units L R Project Coordinator 10 units divided in 2 sites [id number] [...] Harman Sullivan MD Referring Provider: HARMAN SULLIVAN [[id number]] Allergies As of Date: 10/29/2024 Noted Allergy [...] for Encounter Date Provider Department Center 10/29/2024 [id number], TED [facility] Encounter Status:Closed by HARMAN SULLIVAN on 10/29/24 [facility] 09-26-2024 CNPN Telephone ([facility]) BRITTANIE GARCIA ([id number]) 1985 F Date Time Provider Department 09/26/24 HARMAN SULLIVAN [facility] During your visit today, we recorded [...] Status:Closed by EVONNE DILLARD on 10/10/24 Normal [facility] Appearance of UrineOrdered B y: Peg Ruiz on 09-17-2024 Appearance (U) Urine appearance Clear [facility] B-Type Natriuretic Peptideon 09-17-2024 Natriuretic peptide B (Bld) [Mass/Vol] 24.0 pg/mL Normal 5-100 [facility] Comment on above: Result Comment: PERF ORMED BY: [facility] [address] [place] [id number] PATHOLOGIST SENIOR OFFICE SUPPORT ASSISTANT SOSA RAFIA LOPEZ M.D. Performed By: #### C K, BMP, PT, BNP, DDIMER, CBC, HS TROP ####[facility] [id number] [place] [id number] [facility] Bacteria [Presence] in Urine by AutomatedOrdered By: Peg Ruiz on 09-17-2024 Bacteria Auto Ql (U) Bacteria [Presence] in Urine by Automated None Seen [facility] Basic Metabolic Panelon 08-21 Anion gap [Moles/Vol] 10.9 mmol/L Normal 6.0-15.0 Th e [facility] Comment on above: Performed By: #### C K, BMP, PT, BNP, DDIMER, CBC, HS TROP ####[place] [id number] [address] Calcium [Mass/Vol] 9.4 mg/dL Normal 8.6-10.3 [facility] Comment on above: Performed By: #### C K, BMP, PT, BNP, DDIMER, CBC, HS TROP ####[address] Chloride [Moles/Vol] 106 mmol/L Normal 98-107 [facility] Comment on above: Performed By: #### C K, BMP, PT, BNP, DDIMER, CBC, HS TROP ####[address] CO2 [Moles/Vol] 26.7 mmol/L Normal 21.0-31.0 [facility] Comment on above: Performed By: #### C K, BMP, PT, BNP, DDIMER, CBC, HS TROP ####[address] Creatinine [Mass/Vol] 0.91 mg/dL Normal 0.60-1.20 [facility] Comment on above: Performed By: #### C K, BMP, PT, BNP, DDIMER, CBC, HS TROP ####[address] Creatinine Clr Calc Pharmacy 80.55 Normal [facility] Comment on above: Result Comment: PERF ORMED BY: [facility] [address] [place] [address] PATHOLOGIST SENIOR OFFICE SUPPORT ASSISTANT SOSA RAFIA LOPEZ M.D. Performed By: #### C K, BMP, PT, BNP, DDIMER, CBC, HS TROP ####[address] GFR/1.73 sq M.predicted MDRD (S/P/Bld) [Vol rate/Area] mL/min/{1.73_m2} Normal [facility] Comment on above: Performed By: #### C K, BMP, PT, BNP, DDIMER, CBC, HS TROP ####[place] [id number] [place] Glucose [Mass/Vol] 99 mg/dL Normal 70-100 [facility] Comment on above: Result Comment: [facility] Glucose Reference Range is dependent on time and content of last meal. Glucose of more than 200 mg/dL in a nonstressed, ambulatory subject supports the diagnosis of Diabetes Mellitus. ADA recommended reference range Performed By: #### C K, BMP, PT, BNP, DDIMER, CBC, HS TROP ####[address] Potassium [Moles/Vol] 3.6 mmol/L Normal 3.5-5.1 [facility] Comment on above: Performed By: #### C K, BMP, PT, BNP, DDIMER, CBC, HS TROP ####[place] [address] [address] Sodium [Moles/Vol] 140 mmol/L Normal 136-145 [facility] Comment on above: Performed By: #### C K, BMP, PT, BNP, DDIMER, CBC, HS TROP ####[address] Urea nitrogen [Mass/Vol] 13 mg/dL Normal 7-25 [facility] Comment on above: Performed By: #### C K, BMP, PT, BNP, DDIMER, CBC, HS TROP ####[address] Basophils Auto (Bld) [#/Vol] Ordered By: Peg Ruiz on 09-17-2024 Basophils (Bld) [#/Vol] Automated basophil count 0.0-0.2 [facility] Basophils/100 WBC Auto (Bld) Ordered By: Peg Ruiz on 09-17-2024 Basophils/100 WBC (Bld) Automated basophil % . [facility] Bilirubin Test strip Ql (U)O rdered By: Peg Ruiz on 09-17-2024 Bilirubin Ql (U) Bilirubin.total [Pre sence] in Urine by Test strip Negative [facility] CT abdomen pelvis wo conon 0 09-17-2024 CT abdomen pelvis wo con [place] [address] CT Scan Report Signed Patient: Brittanie Garcia MR#: [id number] : 1985 Acct:[id number] Age/Sex: 39 / F ADM Date: 09/17/24 Loc: ER Room: Type: [facility] ER Attending Dr: Copies to: DO Pge Aldridge DO Ordering Provider: Iftikhar Cisneros DO [...] Jr., D.O. 09/17/2024 8:21 AM Dictation Location: [place] [address] Transcribed By: JADEN 09/17/24820 Dictated By: Prince Heath Jr, DO 09/17/24817 Signed By: 09/17/24820 Normal [facility] Calcium [Mass/volume] in Ser um or PlasmaOrdered By: Peg Ruiz on 09-17-2024 Calcium [Mass/Vol] Calcium [Mass/volume ] in Serum or Plasma 8.6-10.3 [facility] Carbon dioxide, total [Moles /volume] in Serum or PlasmaOrdered By: Peg Ruiz on 09-17-2024 CO2 [Moles/Vol] Carbon dioxide, tota l [Moles/volume] in Serum or Plasma 21.0-31.0 [facility] Chloride [Moles/volume] in S leticia or PlasmaOrdered By: Peg Ruiz on 09-17-2024 Chloride [Moles/Vol] Chloride [Moles/vol ume] in Serum or Plasma 98-107 [facility] Color Auto (U)Ordered By: Donaldo Ruiz on 09-17-2024 Color (U) Color of Urine by Auto Yellow [facility] Blood Count Auto Di ffon 09-17-2024 Basophils (Bld) [#/Vol] 0.0 10*3/uL Normal 0.0-0.2 [facility] Comment on above: Result Comment: PERF ORMED BY: [facility] [address] [place] [address] PATHOLOGIST SENIOR OFFICE SUPPORT ASSISTANT SOSA RAFIA LOPEZ M.D. Performed By: #### C K, BMP, PT, BNP, DDIMER, CBC, HS TROP ####[address] Basophils/100 WBC (Bld) 0.7 % Normal . [facility] Comment on above: Performed By: #### C K, BMP, PT, BNP, DDIMER, CBC, HS TROP ####[place] [address] [address] Eosinophils (Bld) [#/Vol] 0.1 10*3/uL Normal 0.0-0.45 [facility] Comment on above: Performed By: #### C K, BMP, PT, BNP, DDIMER, CBC, HS TROP ####[place] [id number] [place] Eosinophils/100 WBC (Bld) 2.0 % Normal . [facility] Comment on above: Performed By: #### C K, BMP, PT, BNP, DDIMER, CBC, HS TROP ####[address] Erythrocyte distribution width (RBC) [Ratio] 13.9 % Normal 11.9-15.3 [facility] Comment on above: Performed By: #### C K, BMP, PT, BNP, DDIMER, CBC, HS TROP ####[address] Hematocrit (Bld) [Volume fraction] 42.2 % Normal 34.0-46.4 [facility] Comment on above: Performed By: #### C K, BMP, PT, BNP, DDIMER, CBC, HS TROP ####[address] Hemoglobin (Bld) [Mass/Vol] 14.4 g/dL Normal 11.8-15.4 [facility] Comment on above: Performed By: #### C K, BMP, PT, BNP, DDIMER, CBC, HS TROP ####[address] Lymphocytes (Bld) [#/Vol] 2.6 10*3/uL Normal 1.00-4.8 [facility] Comment on above: Performed By: #### C K, BMP, PT, BNP, DDIMER, CBC, HS TROP ####[address] Lymphocytes/100 WBC (Bld) 41.7 % Normal . [facility] Comment on above: Performed By: #### C K, BMP, PT, BNP, DDIMER, CBC, HS TROP ####[address] MCH (RBC) [Entitic mass] 29.7 pg Normal 24.7-34.3 [facility] Comment on above: Performed By: #### C K, BMP, PT, BNP, DDIMER, CBC, HS TROP ####[address] MCV (RBC) [Entitic vol] 87.1 fL Normal 80-100 [facility] Comment on above: Performed By: #### C K, BMP, PT, BNP, DDIMER, CBC, HS TROP ####[address] Mean Corpuscular HGB Conc 34.1 g/dL Normal 32.0-35.0 [facility] Comment on above: Performed By: #### C K, BMP, PT, BNP, DDIMER, CBC, HS TROP ####[address] Monocytes (Bld) [#/Vol] 0.4 10*3/uL Normal 0.0-0.8 [facility] Comment on above: Performed By: #### C K, BMP, PT, BNP, DDIMER, CBC, HS TROP ####[address] Monocytes/100 WBC (Bld) 16.75 % Normal 0.00-20.00 [facility] Comment on above: Performed By: #### C K, BMP, PT, BNP, DDIMER, CBC, HS TROP ####[address] Monocytes/100 WBC (Bld) 7.0 % Normal . [facility] Comment on above: Performed By: #### C K, BMP, PT, BNP, DDIMER, CBC, HS TROP ####[address] Neutrophils (Bld) [#/Vol] 3.0 10*3/uL Normal 1.8-7.7 [facility] Comment on above: Performed By: #### C K, BMP, PT, BNP, DDIMER, CBC, HS TROP ####[address] Neutrophils/100 WBC (Bld) 48.6 % Normal . [facility] Comment on above: Performed By: #### C K, BMP, PT, BNP, DDIMER, CBC, HS TROP ####[address] NRBC% 0.1 /100{WBC} Normal 0-0.5 [facility] Comment on above: Performed By: #### C K, BMP, PT, BNP, DDIMER, CBC, HS TROP ####[address] Platelet mean volume (Bld) [Entitic vol] 7.5 fL Normal 6.3-10.7 [facility] Comment on above: Performed By: #### C K, BMP, PT, BNP, DDIMER, CBC, HS TROP ####[address] Platelets (Bld) [#/Vol] 297 10*3/uL Normal 150-450 [facility] Comment on above: Performed By: #### C K, BMP, PT, BNP, DDIMER, CBC, HS TROP ####[address] RBC (Bld) [#/Vol] 4.85 10*6/uL Normal 3.60-5.00 [facility] Comment on above: Performed By: #### C K, BMP, PT, BNP, DDIMER, CBC, HS TROP ####[address] WBC (Bld) [#/Vol] 6.3 10*3/uL Normal 3.8-11.6 [facility] Comment on above: Performed By: #### C K, BMP, PT, BNP, DDIMER, CBC, HS TROP ####[address] Creatine Kinaseon 09-17-2024 CK [Catalytic activity/Vol] 58 U/L Normal 30-223 [facility] Comment on above: Performed By: #### C K, BMP, PT, BNP, DDIMER, CBC, HS TROP ####[address] Creatine kinase [Enzymatic a ctivity/volume] in Serum or PlasmaOrdered By: Peg Ruiz on 09-17-2024 CK [Catalytic activity/Vol] Creatine kinase [Enzymatic activity/volume] in Serum or Plasma [address] [facility] Creatinine [Mass/volume] in Serum or PlasmaOrdered By: Peg uRiz on 09-17-2024 Creatinine [Mass/Vol] Creatinine [Mass/v olume] in Serum or Plasma 0.60-1.20 [facility] D-Dimer High Sensitivityon 0 09-17-2024 D-Dimer High Sensitivity <200 Normal 0-243 [facility] Comment on above: Result [...] coagulation studies. Please contact the laboratory at [phone] for redraw instructions. PERFORMED BY: [place] [address] PATHOLOGIST SENIOR OFFICE SUPPORT ASSISTANT SOSA RAFIA LOPEZ M.D. Performed By: #### C K, BMP, PT, BNP, DDIMER, CBC, HS TROP ####[facility] [id number] [place] [address] [place] Dipstick and Microscopicon 0 09-17-2024 Appearance (U) Clear Normal Clear [facility] Comment on above: Order Comment: Name Collection Type:: Clean-Voided Midstream Performed By: #### U HCG, ADDONUAPLUS #### [facility] [address] Bacteria,Urine Rare Normal None Seen [facility] Comment on above: Order Comment: Name Collection Type:: Clean-Voided Midstream Performed By: #### U HCG, ADDONUAPLUS #### [facility] [address] [place] [address] [place] Bilirubin,Urine Negative Normal Negative [facility] Comment on above: Order Comment: Name Collection Type:: Clean-Voided Midstream Performed By: #### U HCG, ADDONUAPLUS #### [facility] [address] Color (U) Colorless Normal Yellow [facility] Comment on above: Order Comment: Name Collection Type:: Clean-Voided Midstream Performed By: #### U HCG, ADDONUAPLUS #### [facility] [address] [place] [address] Glucose Ql (U) Normal Normal Normal [facility] Comment on above: Order Comment: Name Collection Type:: Clean-Voided Midstream Performed By: #### U HCG, ADDONUAPLUS #### [place] [address] [place] Hyaline Casts,Urine None Normal 0-8 [facility] Comment on above: Order Comment: Name Collection Type:: Clean-Voided Midstream Performed By: #### U HCG, ADDONUAPLUS #### [facility] [address] [place] [address] [place] Ketones Ql (U) Negative Normal Negative [facility] Comment on above: Order Comment: Name Collection Type:: Clean-Voided Midstream Performed By: #### U HCG, ADDONUAPLUS #### [facility] [address] [place] [address] [place] Leukocyte esterase Test strip Ql (U) 3+ High Negative [facility] Comment on above: Order Comment: Name Collection Type:: Clean-Voided Midstream Performed By: #### U HCG, ADDONUAPLUS #### [facility] [address] [place] [address] [place] Nitrite,Urine Negative Normal Negative [facility] Comment on above: Order Comment: Name Collection Type:: Clean-Voided Midstream Performed By: #### U HCG, ADDONUAPLUS #### [facility] [address] [place] [address] [place] Occult Blood,Urine Trace High Negative [facility] Comment on above: Order Comment: Name Collection Type:: Clean-Voided Midstream Performed By: #### U HCG, ADDONUAPLUS #### [address] pH (U) 6.0 [pH] Normal 5.0-9.0 [facility] Comment on above: Order Comment: Name Collection Type:: Clean-Voided Midstream Performed By: #### U HCG, ADDONUAPLUS #### [address] Protein,Urine Negative Normal Negative [facility] Comment on above: Order Comment: Name Collection Type:: Clean-Voided Midstream Performed By: #### U HCG, ADDONUAPLUS #### [address] RBC,Urine 1-2 Normal 0-4 [facility] Comment on above: Order Comment: Name Collection Type:: Clean-Voided Midstream Performed By: #### U HCG, ADDONUAPLUS #### [address] Specificy [place],Urine 1.009 Normal 1.001-1.03 0 [facility] Comment on above: Order Comment: Name Collection Type:: Clean-Voided Midstream Performed By: #### U HCG, ADDONUAPLUS #### [address] Squamous Epithelial Cell,Urine 1-2 Normal 0-2 [facility] Comment on above: Order Comment: Name Collection Type:: Clean-Voided Midstream Performed By: #### U HCG, ADDONUAPLUS #### [place] [address] [place] Urobilinogen,Urine Normal Normal Normal [facility] Comment on above: Order Comment: Name Collection Type:: Clean-Voided Midstream Performed By: #### U HCG, ADDONUAPLUS #### [place] [address] [place] WBC,Urine 1-2 Normal 0-4 [facility] Comment on above: Order Comment: Name Collection Type:: Clean-Voided Midstream Performed By: #### U HCG, ADDONUAPLUS #### [facility] [address] ECG 12 lead ECGon 09-17-2024 ECG 12 lead ECG [facility] [address] [place] [address] Electrocardiograph Report Signed Patient: Brittanie Garcia MR#: [id number] : 1985 Acct:[id number] Age/Sex: 39 / F ADM Date: 09/17/24 Loc: ER Room: Type: [facility] ER Attending Dr: Ordering Provider: Peg [...] By Peg Ruiz DO 0151 Normal [facility] Eosinophils Auto (Bld) [#/Vo l]Ordered By: Peg Ruiz on 09-17-2024 Eosinophils (Bld) [#/Vol] Automated eosinophil count 0.0-0.45 [facility] Eosinophils/100 WBC Auto (Bl d)Ordered By: Peg Ruiz on 09-17-2024 Eosinophils/100 WBC (Bld) Automated eosinophil % . [facility] Epithelial cells.squamous [# /area] in Urine sediment by Automated countOrdered By: Peg Ruiz on 09-17-2024 Epithelial cells.squamous Auto (Urine sed) [#/Area] Epithelial cells.squamous [#/area] in Urine sediment by Automated count 0-2 [facility] Erythrocyte distribution wid th Auto (RBC) [Ratio]Ordered By: Peg Ruiz on 09-17-2024 Erythrocyte distribution width (RBC) [Ratio] Erythrocyte distribution width [Ratio] by Automated count 11.9-15.3 [facility] Erythrocytes [#/area] in Uri ne sediment by Automated countOrdered By: Peg Ruiz on 09-17-2024 RBC Auto (Urine sed) [#/Area] Erythrocytes [#/area] in Urine sediment by Automated count 0-4 [facility] Fibrin D-dimer [Presence] in Platelet poor plasma by Latex agglutinationOrdered By: Peg Ruiz on 09-17-2024 Fibrin D-dimer LA Ql (PPP) Fibrin D-dimer [Presence] in Platelet poor plasma by Latex agglutination 0-243 [facility] Comment on above: The reference range for [...] coagulation studies. Please contact the laboratory at [phone] for redraw instructions. Glucose [Mass/volume] in Ser um or PlasmaOrdered By: Peg Ruiz on 09-17-2024 Glucose [Mass/Vol] Glucose [Mass/volume ] in Serum or Plasma 70-100 [facility] Comment on above: ADA recommended refe rence rangeRandom Glucose Reference Range is dependent on time and content of last meal. Glucose of more than 200 mg/dL in a nonstressed, ambulatory subject supports the diagnosis of Diabetes Mellitus. Glucose [Mass/volume] in Uri ne by Test stripOrdered By: Peg Ruiz on 09-17-2024 Glucose Test strip (U) [Mass/Vol] Glucose [Mass/volume] in Urine by Test strip Normal [facility] HCG ( test) IA.rapi d Ql (U)Ordered By: Peg Ruiz on 09-17-2024 HCG ( test) Ql (U) Urine human chorionic gonadotropin (hCG) detection by immunoassay [facility] HCG,Urineon 09-17-2024 Beta HCG ( test) Ql (U) Negative Normal [facility] Comment on above: Order Comment: Name Collection Type:: Clean-Voided Midstream Result Comment: PERF ORMED BY: [place] [address] PATHOLOGIST SENIOR OFFICE SUPPORT ASSISTANT SOSA RAFIA LOPEZ M.D. Performed By: #### U HCG, ADDONUAPLUS #### [address] Hematocrit Auto (Bld) [Volum e fraction]Ordered By: Peg Ruiz on 09-17-2024 Hematocrit (Bld) [Volume fraction] Hematocrit [Volume Fraction] of Blood by Automated count 34.0-46.4 [facility] Hemoglobin Test strip Ql (U) Ordered By: Peg Ruiz on 09-17-2024 Hemoglobin Ql (U) Hemoglobin [Presence ] in Urine by Test strip High Negative [facility] Hemoglobin [Mass/volume] in BloodOrdered By: Peg Ruiz on 09-17-2024 Hemoglobin (Bld) [Mass/Vol] Hemoglobin [Mass/volume] in Blood 11.8-15.4 [facility] Hyaline casts [#/area] in Ur ine sediment by Automated countOrdered By: Peg Ruiz on 09-17-2024 Hyaline casts Auto (Urine sed) [#/Area] Hyaline casts [#/area] in Urine sediment by Automated count 0-8 [facility] INR in Platelet poor plasma by Coagulation assayOrdered By: Peg Ruiz on 09-17-2024 INR Coag (PPP) [Relative time] INR in Platelet poor plasma by Coagulation assay [facility] Comment on above: INR Therapeutic Rang e [...] i n Urine by Test strip Negative [facility] Leukocyte esterase [Presence ] in Urine by Test stripOrdered By: Peg Ruiz on 09-17-2024 Leukocyte esterase Test strip Ql (U) Leukocyte esterase [Presence] in Urine by Test strip High Negative [facility] Leukocytes [#/area] in Urine sediment by Automated countOrdered By: Peg Ruiz on 09-17-2024 WBC Auto (Urine sed) [#/Area] Leukocytes [#/area] in Urine sediment by Automated count 0-4 [facility] Leukocytes [#/volume] correc harman for nucleated erythrocytes in Blood by Automated counOrdered By: Peg Ruiz on 09-17-2024 WBC corrected for nucl RBC Auto (Bld) [#/Vol] Leukocytes [#/volume] corrected for nucleated erythrocytes in Blood by Automated coun 3.8-11.6 [facility] Lymphocytes Auto (Bld) [#/Vo l]Ordered By: Peg Ruiz on 09-17-2024 Lymphocytes (Bld) [#/Vol] Lymphocytes [#/volume] in Blood by Automated count 1.00-4.8 [facility] Lymphocytes/100 WBC Auto (Bl d)Ordered By: Peg Ruiz on 09-17-2024 Lymphocytes/100 WBC (Bld) Lymphocytes/100 leukocytes in Blood by Automated count . [facility] MCH Auto (RBC) [Entitic mass ]Ordered By: Peg Ruiz on 09-17-2024 MCH (RBC) [Entitic mass] MCH [Entitic mass] by Automated count 24.7-34.3 [facility] MCHC Auto (RBC) [Mass/Vol]Or dered By: Peg Ruiz on 09-17-2024 MCHC (RBC) [Mass/Vol] MCHC [Mass/volume] by Automated count 32.0-35.0 [facility] MCV Auto (RBC) [Entitic vol] Ordered By: Peg Ruiz on 09-17-2024 MCV (RBC) [Entitic vol] MCV [Entitic volume] by Automated count 80-100 [facility] Monocyte distribution width [Entitic volume] in Blood by AutomatedOrdered By: Peg Ruiz on 09-17-2024 Monocyte distribution width Auto (Bld) [Entitic vol] Monocyte distribution width [Entitic volume] in Blood by Automated 0.00-20.00 [facility] Monocytes Auto (Bld) [#/Vol] Ordered By: Peg Ruiz on 09-17-2024 Monocytes (Bld) [#/Vol] Automated blood monocyte count 0.0-0.8 [facility] Monocytes/100 WBC Auto (Bld) Ordered By: Peg Ruiz on 09-17-2024 Monocytes/100 WBC (Bld) Automated monocyte % . [facility] Natriuretic peptide B [Mass/ Vol]Ordered By: Peg Ruiz on 09-17-2024 Natriuretic peptide B (Bld) [Mass/Vol] BNP ser/plas 5-100 [facility] Neutrophils Auto (Bld) [#/Vo l]Ordered By: Peg Ruiz on 09-17-2024 Neutrophils (Bld) [#/Vol] Neutrophils [#/volume] in Blood by Automated count 1.8-7.7 [facility] Neutrophils/100 WBC Auto (Bl d)Ordered By: Peg Ruiz on 09-17-2024 Neutrophils/100 WBC (Bld) Automated neutrophil % . [facility] Nitrite Test strip Ql (U)Ord ered By: Peg Ruiz on 09-17-2024 Nitrite Ql (U) Nitrite [Presence] i n Urine by Test strip Negative [facility] No Panel InformationOrdered By: Peg Ruiz on 09-17-2024 Estimated GFR (CKD-EPI) > 60.0 mL/Min [facility] Creatinine Clearance (Chem 80.55 [facility] Nucleated erythrocytes [Pres ence] in Blood by Automated countOrdered By: Peg Ruiz on 09-17-2024 Nucleated RBC Auto Ql (Bld) Nucleated erythrocytes [Presence] in Blood by Automated count 0-0.5 [facility] Platelet mean volume Auto (B ld) [Entitic vol]Ordered By: Peg Ruiz on 09-17-2024 Platelet mean volume (Bld) [Entitic vol] Platelet mean volume [Entitic volume] in Blood by Automated count 6.3-10.7 [facility] Platelets Auto (Bld) [#/Vol] Ordered By: Peg Ruiz on 09-17-2024 Platelets (Bld) [#/Vol] Platelets [#/volume] in Blood by Automated count 150-450 [facility] Potassium [Moles/volume] in Serum or PlasmaOrdered By: Peg Ruiz on 09-17-2024 Potassium [Moles/Vol] Potassium [Moles/v olume] in Serum or Plasma 3.5-5.1 [facility] Protein Test strip (U) [Mass /Vol]Ordered By: Peg Ruiz on 09-17-2024 Protein (U) [Mass/Vol] Protein [Mass/vol ume] in Urine by Test strip Negative [facility] Prothrombin Time INRon 09-17 INR Coag (PPP) [Relative time] 1.0 {INR} Normal [facility] Comment on above: Result [...] BMP, PT, BNP, DDIMER, CBC, HS TROP ####[facility] [address] [place] [address] [facility] PT Coag (PPP) [Time] 11.1 s Normal 9.0-12.9 [facility] Comment on above: Result Comment: A he matocrit value greater than 55% may lead to inaccurate results in coagulation testing. Patients having hematocrit values >55% require a special collection tube for coagulation studies. Please contact the laboratory at [phone] for redraw instructions. Performed By: #### C K, BMP, PT, BNP, DDIMER, CBC, HS TROP ####[facility] [id number] [place] [id number] [facility] Prothrombin time (PT)Ordered By: Peg Ruiz on 09-17-2024 PT Coag (PPP) [Time] Prothrombin time (PT) 9.0- 12.9 [facility] Comment on above: A hematocrit value g reater than 55% may lead to inaccurate results in coagulation testing. Patients having hematocrit values >55% require a special collection tube for coagulation studies. Please contact the laboratory at [phone] for redraw instructions. RBC Auto (Bld) [#/Vol]Ordere d By: Peg Ruiz on 09-17-2024 RBC (Bld) [#/Vol] Erythrocytes [#/volu me] in Blood by Automated count 3.60-5.00 [facility] Serum or plasma anion gap de terminationOrdered By: Peg Ruiz on 09-17-2024 Anion gap [Moles/Vol] Serum or plasma an ion gap determination 6.0-15.0 [facility] Sodium [Moles/volume] in Ser um or PlasmaOrdered By: Peg Ruiz on 09-17-2024 Sodium [Moles/Vol] Sodium [Moles/volume ] in Serum or Plasma 136-145 [facility] Specific gravity Test strip (U) [Rel density]Ordered By: Peg Ruiz on 09-17-2024 Specific gravity (U) [Rel density] Specific gravity of Urine by Test strip 1.001-1.03 0 [facility] Troponin I High Sensitivityo n 09-17-2024 Troponin I High Sensitivity <3 Normal 0-15 [facility] Comment on above: Result Comment: The Troponin units of report have been changed to meet the Chest Pain Accreditation requirement, element EC5.M1l2. Troponin units are changed from pg/ml to ng/L. Also, the decimal is removed and results are in whole numbers. PERFORMED BY: [facility] [address] [place] [id number] PATHOLOGIST SENIOR OFFICE SUPPORT ASSISTANT SOSA RAFIA LOPEZ M.D. Performed By: #### C K, BMP, PT, BNP, DDIMER, CBC, HS TROP ####[place] [address] [place] [id number] [facility] Troponin I.cardiac [Mass/vol ume] in Serum or Plasma by Detection limit <= 0.01 ng/Ordered By: Peg Ruiz on 09-17-2024 Troponin I.cardiac DL <= 0.01 ng/mL [Mass/Vol] Troponin I.cardiac [Mass/volume] in Serum or Plasma by Detection limit <= 0.01 ng/ 0-15 [facility] Comment on above: The Troponin units o f report have been changed to meet the Chest Pain Accreditation requirement, element EC5.M1l2. Troponin units are changed from pg/ml to ng/L. Also, the decimal is removed and results are in whole numbers. Urea nitrogen [Mass/volume] in Serum or PlasmaOrdered By: Peg Ruiz on 09-17-2024 Urea nitrogen [Mass/Vol] Urea nitrogen [Mass/volume] in Serum or Plasma 7-25 [facility] Urobilinogen Test strip (U) [Mass/Vol]Ordered By: Peg Ruiz on 09-17-2024 Urobilinogen (U) [Mass/Vol] Urobilinogen [Mass/volume] in Urine by Test strip Normal [facility] WBC Auto (Bld) [#/Vol]Ordere d By: Peg Ruiz on 09-17-2024 WBC (Bld) [#/Vol] Leukocytes [#/volume ] in Blood by Automated count 3.8-11.6 [facility] X-ray reportOrdered By: Larry Heath on 09-17-2024 Study report [facility] [address] XRay Report Signed Patient: Brittanie Garcia MR# : [id number] : 1985 Acct:[id number] Age/Sex: 39 / F ADM Date: 5 Loc: ER Room: Type: [facility] ER Attending Dr: Copies to: Peg [...] Jr., D.O. 09/17/2024 8:28 AM Dictation Location: RADIO-PC-22 Transcribed By: JADEN 09/17/2428 Dictated By: Prince Heath Jr, DO 09/17/24827 Signed By: 09/17/2428 [facility] XR chest 2V*on 09-17-2024 XR chest 2V* [facility] [address] [place] [address] XRay Report Signed Patient: Brittanie Garcia MR#: [id number] : 1985 Acct:[id number] Age/Sex: 39 / F ADM Date: 09/17/24 Loc: ER Room: Type: [facility] ER Attending Dr: Copies to: Peg [...] Jr., D.O. 09/17/2024 8:28 AM Dictation Location: RADIO-PC-22 Transcribed By: JADEN 09/17/24827 Dictated By: Prince Heath Jr, DO 09/17/24827 Signed By: 09/17/2428 Normal [facility] pH Test strip (U)Ordered By: Peg Ruiz on 09-17-2024 pH (U) pH of Urine by Test strip 5.0-9.0 [facility] Alanine aminotransferase [En zymatic activity/volume] in Serum or PlasmaOrdered By: Luis Goins on 08-01-2024 ALT [Catalytic activity/Vol] Alanine aminotransferase [Enzymatic activity/volume] in Serum or Plasma [facility] Albumin [Mass/volume] in Ser um or Plasma by Bromocresol green (BCG) dye binding methoOrdered By: Luis Goins on 08-01-2024 Albumin BCG dye [Mass/Vol] Albumin [Mass/volume] in Serum or Plasma by Bromocresol green (BCG) dye binding metho 3.5-5.7 [facility] Alkaline phosphatase [Enzyma tic activity/volume] in Serum or PlasmaOrdered By: Luis Goins on 08-01-2024 ALP [Catalytic activity/Vol] Alkaline phosphatase [Enzymatic activity/volume] in Serum or Plasma 34-104 [facility] Appearance of UrineOrdered B y: Luis Goins on 08-01-2024 Appearance (U) Urine appearance Clear [facility] Aspartate aminotransferase [ Enzymatic activity/volume] in Serum or PlasmaOrdered By: Luis Goins on 08-01-2024 AST [Catalytic activity/Vol] Aspartate aminotransferase [Enzymatic activity/volume] in Serum or Plasma 13-39 [facility] Bacteria [Presence] in Urine by AutomatedOrdered By: Luis Goins on 08-01-2024 Bacteria Auto Ql (U) Bacteria [Presence] in Urine by Automated High None Seen [facility] Basophils Auto (Bld) [#/Vol] Ordered By: Luis Goins on 08-01-2024 Basophils (Bld) [#/Vol] Automated basophil count 0.0-0.2 [facility] Basophils/100 WBC Auto (Bld) Ordered By: Luis Goins on 08-01-2024 Basophils/100 WBC (Bld) Automated basophil % . [facility] Bilirubin Test strip Ql (U)O rdered By: Luis Goins on 08-01-2024 Bilirubin Ql (U) Bilirubin.total [Pre sence] in Urine by Test strip Negative [facility] Bilirubin.total [Mass/volume ] in Serum or PlasmaOrdered By: Luis Goins on 08-01-2024 Bilirubin [Mass/Vol] Bilirubin.total [Mass/volume] in Serum or Plasma 0.3-1.0 [facility] COVID Cepheid NegativeOrdere d By: Luis Goins on 08-01-2024 SARS-CoV-2 (COVID-19) Ab IA Ql COVID Cepheid Negative [facility] Comment on above: This is a duplicate [...] or Cepheid Disclaimer revoked sooner. PERFORMED BY: [address] [place] [address] PATHOLOGIST SENIOR OFFICE SUPPORT ASSISTANT SOSA RAFIA LOPEZ M.D. Normal [facility] Comment on above: Performed By: #### C EPHEID NEG, ADDONUAPLUS, COVID19 FLU RSV ####[address] [place] [address] [facility] Calcium [Mass/volume] in Ser um or PlasmaOrdered By: Luis Goins on 08-01-2024 Calcium [Mass/Vol] Calcium [Mass/volume ] in Serum or Plasma 8.6-10.3 [facility] Carbon dioxide, total [Moles /volume] in Serum or PlasmaOrdered By: Luis Goins on 08-01-2024 CO2 [Moles/Vol] Carbon dioxide, tota l [Moles/volume] in Serum or Plasma 21.0-31.0 [facility] Cepheid COVID PCR Negativeon 08-01-2024 SARS-CoV-2 (COVID-19) RNA LISBETH+probe Ql (Unsp spec) Negative Normal Negative [facility] Comment on above: Result Comment: This is a duplicate CepNaviscanid Xpert Xpress CoV-2/Flu/RSV Plus RNA by RT-PCR result to be used for statistical tracking purpose only. PERFORMED BY: [address] [address] PATHOLOGIST SENIOR OFFICE SUPPORT ASSISTANT SOSA RAFIA LOPEZ M.D. Performed By: #### C EPHEID NEG, ADDONUAPLUS, COVID19 FLU RSV ####[address] [place] [address] [place] Chloride [Moles/volume] in S leticia or PlasmaOrdered By: Luis Goins on 08-01-2024 Chloride [Moles/Vol] Chloride [Moles/vol ume] in Serum or Plasma 98-107 [facility] Color Auto (U)Ordered By: Yony Goins on 08-01-2024 Color (U) Color of Urine by Auto Yellow [facility] Complete Blood Count Auto Di ffon 08-01-2024 Basophils (Bld) [#/Vol] 0.0 10*3/uL Normal 0.0-0.2 [facility] Comment on above: Result Comment: PERF ORMED BY: [facility] [place] [address] PATHOLOGIST SENIOR OFFICE SUPPORT ASSISTANT SOSA RAFIA LOPEZ M.D. Performed By: #### C BC, CMP ####[address] Basophils/100 WBC (Bld) 0.7 % Normal . [facility] Comment on above: Performed By: #### C BC, CMP ####[address] Eosinophils (Bld) [#/Vol] 0.0 10*3/uL Normal 0.0-0.45 [facility] Comment on above: Performed By: #### C BC, CMP ####[address] Eosinophils/100 WBC (Bld) 0.4 % Normal . [facility] Comment on above: Performed By: #### C BC, CMP ####[address] Erythrocyte distribution width (RBC) [Ratio] 13.3 % Normal 11.9-15.3 [facility] Comment on above: Performed By: #### C BC, CMP ####[address] Hematocrit (Bld) [Volume fraction] 39.8 % Normal 34.0-46.4 [facility] Comment on above: Performed By: #### C BC, CMP ####[address] Hemoglobin (Bld) [Mass/Vol] 13.4 g/dL Normal 11.8-15.4 [facility] Comment on above: Performed By: #### C BC, CMP ####[address] Lymphocytes (Bld) [#/Vol] 1.1 10*3/uL Normal 1.00-4.8 [facility] Comment on above: Performed By: #### C BC, CMP ####[address] Lymphocytes/100 WBC (Bld) 44.4 % Normal . [facility] Comment on above: Performed By: #### C BC, CMP ####[address] MCH (RBC) [Entitic mass] 29.3 pg Normal 24.7-34.3 [facility] Comment on above: Performed By: #### C BC, CMP ####[address] MCV (RBC) [Entitic vol] 86.8 fL Normal 80-100 [facility] Comment on above: Performed By: #### C BC, CMP ####[address] Mean Corpuscular HGB Conc 33.7 g/dL Normal 32.0-35.0 [facility] Comment on above: Performed By: #### C BC, CMP ####[address] Monocytes (Bld) [#/Vol] 0.3 10*3/uL Normal 0.0-0.8 [facility] Comment on above: Performed By: #### C BC, CMP ####[address] Monocytes/100 WBC (Bld) 26.77 % High 0.00-20.00 [facility] Comment on above: Result Comment: For adults in ED, MDW > 20.0 may be associated with a higher risk of sepsis during the first 12 hrs of hospital admission Performed By: #### C BC, CMP ####[address] Monocytes/100 WBC (Bld) 11.1 % Normal . [facility] Comment on above: Performed By: #### C BC, CMP ####[address] [place] [address] [facility] Neutrophils (Bld) [#/Vol] 1.1 10*3/uL Low 1.8-7.7 [facility] Comment on above: Performed By: #### C TAVO, CMP ####[address] [address] [facility] Neutrophils/100 WBC (Bld) 43.4 % Normal . [facility] Comment on above: Performed By: #### C TAVO, CMP ####[id number] [facility] NRBC% 0.3 /100{WBC} Normal 0-0.5 [facility] Comment on above: Performed By: #### C TAVO, CMP ####[place] [id number] [facility] Platelet mean volume (Bld) [Entitic vol] 7.7 fL Normal 6.3-10.7 [facility] Comment on above: Performed By: #### C TAVO, CMP ####[id number] [facility] Platelets (Bld) [#/Vol] 196 10*3/uL Normal 150-450 [facility] Comment on above: Performed By: #### C TAVO, CMP ####[address] [id number] [facility] RBC (Bld) [#/Vol] 4.58 10*6/uL Normal 3.60-5.00 [facility] Comment on above: Performed By: #### C TAVO, CMP ####[id number] [facility] WBC (Bld) [#/Vol] 2.5 10*3/uL Low 3.8-11.6 [facility] Comment on above: Performed By: #### C TAVO, CMP ####[address] [id number] [facility] Comprehensive Metabolic Pane pedro 08-01-2024 Albumin [Mass/Vol] 4.2 g/dL Normal 3.5-5.7 [facility] Comment on above: Performed By: #### C BC, CMP ####[address] [address] [facility] Albumin/Globulin [Mass ratio] 1.5 {ratio} Normal [facility] Comment on above: Performed By: #### C BC, CMP ####[address] [address] [facility] ALP [Catalytic activity/Vol] 58 U/L Normal 34-104 [facility] Comment on above: Performed By: #### C BC, CMP ####[address] [address] [facility] ALT [Catalytic activity/Vol] 22 U/L Normal 7-52 [facility] Comment on above: Performed By: #### C BC, CMP ####[address] [address] [facility] Anion gap [Moles/Vol] 10.6 mmol/L Normal 6.0-15.0 [facility] Comment on above: Performed By: #### C BC, CMP ####[address] [address] [facility] AST [Catalytic activity/Vol] 23 U/L Normal 13-39 [facility] Comment on above: Performed By: #### C BC, CMP ####[address] [address] [facility] Bilirubin [Mass/Vol] 0.3 mg/dL Normal 0.3-1.0 [facility] Comment on above: Performed By: #### C BC, CMP ####[address] [address] [facility] Calcium [Mass/Vol] 8.8 mg/dL Normal 8.6-10.3 [facility] Comment on above: Performed By: #### C BC, CMP ####[address] [address] [facility] Chloride [Moles/Vol] 106 mmol/L Normal 98-107 [facility] Comment on above: Performed By: #### C BC, CMP ####[place] [address] CO2 [Moles/Vol] 27.0 mmol/L Normal 21.0-31.0 [facility] Comment on above: Performed By: #### C BC, CMP ####[address] Creatinine [Mass/Vol] 0.88 mg/dL Normal 0.60-1.20 [facility] Comment on above: Performed By: #### C BC, CMP ####[address] Creatinine Clr Calc Pharmacy 82.02 Normal [facility] Comment on above: Result Comment: PERF ORMED BY: [place] [address] PATHOLOGIST SENIOR OFFICE SUPPORT ASSISTANT SOSA RAFIA LOPEZ M.D. Performed By: #### C BC, CMP ####[address] GFR/1.73 sq M.predicted MDRD (S/P/Bld) [Vol rate/Area] mL/min/{1.73_m2} Normal [facility] Comment on above: Performed By: #### C BC, CMP ####[address] Globulin (S) [Mass/Vol] 2.8 g/dL Normal [facility] Comment on above: Performed By: #### C BC, CMP ####[address] Glucose [Mass/Vol] 87 mg/dL Normal 70-100 [facility] Comment on above: Result Comment: [place] Glucose Reference Range is dependent on time and content of last meal. Glucose of more than 200 mg/dL in a nonstressed, ambulatory subject supports the diagnosis of Diabetes Mellitus. ADA recommended reference range Performed By: #### C BC, CMP ####[address] Potassium [Moles/Vol] 3.6 mmol/L Normal 3.5-5.1 [facility] Comment on above: Performed By: #### C BC, CMP ####[address] [address] [facility] Protein [Mass/Vol] 7.0 g/dL Normal 6.4-8.9 [facility] Comment on above: Performed By: #### C BC, CMP ####[place] [phone] [facility] Sodium [Moles/Vol] 140 mmol/L Normal 136-145 [facility] Comment on above: Performed By: #### C BC, CMP ####[address] [address] [facility] Urea nitrogen [Mass/Vol] 8 mg/dL Normal 7-25 [facility] Comment on above: Performed By: #### C BC, CMP ####[phone] [facility] Creatinine [Mass/volume] in Serum or PlasmaOrdered By: Luis Goins on 08-01-2024 Creatinine [Mass/Vol] Creatinine [Mass/v olume] in Serum or Plasma 0.60-1.20 [facility] Dipstick and Microscopicon 0 08-01-2024 Appearance (U) Clear Normal Clear [facility] Comment on above: Order Comment: Name Collection Type:: Voided Performed By: #### C EPHEID NEG, ADDONUAPLUS, COVID19 FLU RSV ####[address] [address] [facility] Bacteria,Urine 1+ High None Seen [facility] Comment on above: Order Comment: Name Collection Type:: Voided Performed By: #### C EPHEID NEG, ADDONUAPLUS, COVID19 FLU RSV ####[address] [address] [facility] Bilirubin,Urine Negative Normal Negative [facility] Comment on above: Order Comment: Name Collection Type:: Voided Performed By: #### C EPHEID NEG, ADDONUAPLUS, COVID19 FLU RSV ####[address] [address] [facility] Color (U) Light-Yellow Normal Yellow [facility] Comment on above: Order Comment: Name Collection Type:: Voided Performed By: #### C EPHEID NEG, ADDONUAPLUS, COVID19 FLU RSV ####[address] [address] [facility] Glucose Ql (U) Normal Normal Normal [facility] Comment on above: Order Comment: Name Collection Type:: Voided Performed By: #### C EPHEID NEG, ADDONUAPLUS, COVID19 FLU RSV ####[address] [address] [facility] Hyaline Casts,Urine None Normal 0-8 [facility] Comment on above: Order Comment: Name Collection Type:: Voided Performed By: #### C EPHEID NEG, ADDONUAPLUS, COVID19 FLU RSV ####[address] [address] [facility] Ketones Ql (U) Negative Normal Negative [facility] Comment on above: Order Comment: Name Collection Type:: Voided Performed By: #### C EPHEID NEG, ADDONUAPLUS, COVID19 FLU RSV ####[address] [address] [facility] Leukocyte esterase Test strip Ql (U) 3+ High Negative [facility] Comment on above: Order Comment: Name Collection Type:: Voided Performed By: #### C EPHEID NEG, ADDONUAPLUS, COVID19 FLU RSV ####[phone] [facility] Mucus,Urine 1+ Critically abnormal [facility] Comment on above: Order Comment: Name Collection Type:: Voided Result Comment: PERF ORMED BY: [facility] [address] [place] [id number] PATHOLOGIST SENIOR OFFICE SUPPORT ASSISTANT SOSA RAFIA LOPEZ M.D. Performed By: #### C EPHEID NEG, ADDONUAPLUS, COVID19 FLU RSV ####[phone] [facility] Nitrite,Urine Negative Normal Negative [facility] Comment on above: Order Comment: Name Collection Type:: Voided Performed By: #### C EPHEID NEG, ADDONUAPLUS, COVID19 FLU RSV ####[address] [phone] [facility] Occult Blood,Urine Negative Normal Negative [facility] Comment on above: Order Comment: Name Collection Type:: Voided Result Comment: PERF ORMED BY: [facility] [address] [place] [id number] PATHOLOGIST SENIOR OFFICE SUPPORT ASSISTANT SOSA RAFIA LOPEZ M.D. Performed By: #### C EPHEID NEG, ADDONUAPLUS, COVID19 FLU RSV ####[address] [phone] [facility] pH (U) 6.0 [pH] Normal 5.0-9.0 [facility] Comment on above: Order Comment: Name Collection Type:: Voided Performed By: #### C EPHEID NEG, ADDONUAPLUS, COVID19 FLU RSV ####[phone] [facility] Protein,Urine Negative Normal Negative [facility] Comment on above: Order Comment: Name Collection Type:: Voided Performed By: #### C EPHEID NEG, ADDONUAPLUS, COVID19 FLU RSV ####[place] [phone] [facility] RBC,Urine 3-4 Normal 0-4 [facility] Comment on above: Order Comment: Name Collection Type:: Voided Performed By: #### C EPHEID NEG, ADDONUAPLUS, COVID19 FLU RSV ####[address] [address] [facility] Specificy [place],Urine 1.012 Normal 1.001-1.03 0 [facility] Comment on above: Order Comment: Name Collection Type:: Voided Performed By: #### C EPHEID NEG, ADDONUAPLUS, COVID19 FLU RSV ####[address] [address] [facility] Squamous Epithelial Cell,Urine 10-19 High 0-2 [facility] Comment on above: Order Comment: Name Collection Type:: Voided Performed By: #### C EPHEID NEG, ADDONUAPLUS, COVID19 FLU RSV ####[place] [address] Urobilinogen,Urine Normal Normal Normal [facility] Comment on above: Order Comment: Name Collection Type:: Voided Performed By: #### C EPHEID NEG, ADDONUAPLUS, COVID19 FLU RSV ####[address] WBC,Urine 1-2 Normal 0-4 [facility] Comment on above: Order Comment: Name Collection Type:: Voided Performed By: #### C EPHEID NEG, ADDONUAPLUS, COVID19 FLU RSV ####[address] Eosinophils Auto (Bld) [#/Vo l]Ordered By: Luis Goins on 08-01-2024 Eosinophils (Bld) [#/Vol] Automated eosinophil count 0.0-0.45 [facility] Eosinophils/100 WBC Auto (Bl d)Ordered By: Luis Goins on 08-01-2024 Eosinophils/100 WBC (Bld) Automated eosinophil % . [facility] Epithelial cells.squamous [# /area] in Urine sediment by Automated countOrdered By: Luis Goins on 08-01-2024 Epithelial cells.squamous Auto (Urine sed) [#/Area] Epithelial cells.squamous [#/area] in Urine sediment by Automated count High 0-2 [facility] Erythrocyte distribution wid th Auto (RBC) [Ratio]Ordered By: Luis Goins on 08-01-2024 Erythrocyte distribution width (RBC) [Ratio] Erythrocyte distribution width [Ratio] by Automated count 11.9-15.3 [facility] Erythrocytes [#/area] in Uri ne sediment by Automated countOrdered By: Luis Goins on 08-01-2024 RBC Auto (Urine sed) [#/Area] Erythrocytes [#/area] in Urine sediment by Automated count 0-4 [facility] Globulin Calc (S) [Mass/Vol] Ordered By: Luis Goins on 08-01-2024 Globulin (S) [Mass/Vol] Serum globulin measurement by calculation (mass/volume) [facility] Glucose [Mass/volume] in Ser um or PlasmaOrdered By: Luis Goins on 08-01-2024 Glucose [Mass/Vol] Glucose [Mass/volume ] in Serum or Plasma 70-100 [facility] Comment on above: ADA recommended refe rence rangeRandom Glucose Reference Range is dependent on time and content of last meal. Glucose of more than 200 mg/dL in a nonstressed, ambulatory subject supports the diagnosis of Diabetes Mellitus. Glucose [Mass/volume] in Uri ne by Test stripOrdered By: Luis Goins on 08-01-2024 Glucose Test strip (U) [Mass/Vol] Glucose [Mass/volume] in Urine by Test strip Normal [facility] Hematocrit Auto (Bld) [Volum e fraction]Ordered By: Luis Goins on 08-01-2024 Hematocrit (Bld) [Volume fraction] Hematocrit [Volume Fraction] of Blood by Automated count 34.0-46.4 [facility] Hemoglobin Test strip Ql (U) Ordered By: Luis Goins on 08-01-2024 Hemoglobin Ql (U) Hemoglobin [Presence ] in Urine by Test strip Negative [facility] Hemoglobin [Mass/volume] in BloodOrdered By: Luis Goins 08-01-2024 Hemoglobin (Bld) [Mass/Vol] Hemoglobin [Mass/volume] in Blood 11.8-15.4 [facility] Hyaline casts [#/area] in Ur ine sediment by Automated countOrdered By: Luis Goins 08-01-2024 Hyaline casts Auto (Urine sed) [#/Area] Hyaline casts [#/area] in Urine sediment by Automated count 0-8 [facility] Ketones Test strip Ql (U)Ord ered By: Luis Goins on 08-01-2024 Ketones Ql (U) Ketones [Presence] i n Urine by Test strip Negative [facility] Leukocyte esterase [Presence ] in Urine by Test stripOrdered By: Luis Goins on 08-01-2024 Leukocyte esterase Test strip Ql (U) Leukocyte esterase [Presence] in Urine by Test strip High Negative [facility] Leukocytes [#/area] in Urine sediment by Automated countOrdered By: Luis Goins 08-01-2024 WBC Auto (Urine sed) [#/Area] Leukocytes [#/area] in Urine sediment by Automated count 0-4 [facility] Leukocytes [#/volume] correc harman for nucleated erythrocytes in Blood by Automated counOrdered By: Luis Goins on 08-01-2024 WBC corrected for nucl RBC Auto (Bld) [#/Vol] Leukocytes [#/volume] corrected for nucleated erythrocytes in Blood by Automated coun Low 3.8-11.6 [facility] Lymphocytes Auto (Bld) [#/Vo l]Ordered By: Luis Goins on 08-01-2024 Lymphocytes (Bld) [#/Vol] Lymphocytes [#/volume] in Blood by Automated count 1.00-4.8 [facility] Lymphocytes/100 WBC Auto (Bl d)Ordered By: Luis Goins on 08-01-2024 Lymphocytes/100 WBC (Bld) Lymphocytes/100 leukocytes in Blood by Automated count . [facility] MCH Auto (RBC) [Entitic mass ]Ordered By: Luis Goins on 08-01-2024 MCH (RBC) [Entitic mass] MCH [Entitic mass] by Automated count 24.7-34.3 [facility] MCHC Auto (RBC) [Mass/Vol]Or dered By: Luis Goins on 08-01-2024 MCHC (RBC) [Mass/Vol] MCHC [Mass/volume] by Automated count 32.0-35.0 [facility] MCV Auto (RBC) [Entitic vol] Ordered By: Luis Goins on 08-01-2024 MCV (RBC) [Entitic vol] MCV [Entitic volume] by Automated count 80-100 [facility] Monocyte distribution width [Entitic volume] in Blood by AutomatedOrdered By: Luis Goins on 08-01-2024 Monocyte distribution width Auto (Bld) [Entitic vol] Monocyte distribution width [Entitic volume] in Blood by Automated High 0.00-20.00 [facility] Comment on above: For adults in ED, MD W > 20.0 may be associated with a higher risk of sepsis during the first 12 hrs of hospital admission Monocytes Auto (Bld) [#/Vol] Ordered By: Luis Goins on 08-01-2024 Monocytes (Bld) [#/Vol] Automated blood monocyte count 0.0-0.8 [facility] Monocytes/100 WBC Auto (Bld) Ordered By: Luis Goins on 08-01-2024 Monocytes/100 WBC (Bld) Automated monocyte % . [facility] Mucus [Presence] in Urine by AutomatedOrdered By: Luis Goins on 08-01-2024 Mucus Auto Ql (U) Mucus [Presence] in Urine by Automated Abnormal [facility] Neutrophils Auto (Bld) [#/Vo l]Ordered By: Luis Goins on 08-01-2024 Neutrophils (Bld) [#/Vol] Neutrophils [#/volume] in Blood by Automated count Low 1.8-7.7 [facility] Neutrophils/100 WBC Auto (Bl d)Ordered By: Luis Goins on 08-01-2024 Neutrophils/100 WBC (Bld) Automated neutrophil % . [facility] Nitrite Test strip Ql (U)Ord ered By: Luis Goins on 08-01-2024 Nitrite Ql (U) Nitrite [Presence] i n Urine by Test strip Negative [facility] No Panel InformationOrdered By: Luis Goins on 08-01-2024 Estimated GFR (CKD-EPI) > 60.0 mL/Min [facility] Creatinine Clearance (Chem 82.02 [facility] Nucleated erythrocytes [Pres ence] in Blood by Automated countOrdered By: Luis Goins on 08-01-2024 Nucleated RBC Auto Ql (Bld) Nucleated erythrocytes [Presence] in Blood by Automated count 0-0.5 [facility] Platelet mean volume Auto (B ld) [Entitic vol]Ordered By: Luis Goins on 08-01-2024 Platelet mean volume (Bld) [Entitic vol] Platelet mean volume [Entitic volume] in Blood by Automated count 6.3-10.7 [facility] Platelets Auto (Bld) [#/Vol] Ordered By: Luis Goins on 08-01-2024 Platelets (Bld) [#/Vol] Platelets [#/volume] in Blood by Automated count 150-450 [facility] Potassium [Moles/volume] in Serum or PlasmaOrdered By: Luis Goins on 08-01-2024 Potassium [Moles/Vol] Potassium [Moles/v olume] in Serum or Plasma 3.5-5.1 [facility] Protein Test strip (U) [Mass /Vol]Ordered By: Luis Goins on 08-01-2024 Protein (U) [Mass/Vol] Protein [Mass/vol ume] in Urine by Test strip Negative [facility] [facility] Protein [Mass/volume] in Ser um or PlasmaOrdered By: Luis Goins on 08-01-2024 Protein [Mass/Vol] Protein [Mass/volume ] in Serum or Plasma 6.4-8.9 [facility] RBC Auto (Bld) [#/Vol]Ordere d By: Luis Goins on 08-01-2024 RBC (Bld) [#/Vol] Erythrocytes [#/volu me] in Blood by Automated count 3.60-5.00 [facility] Respiratory specimen influen za A virus, influenza B virus, respiratory syncytical virOrdered By: Luis Goins on 08-01-2024 SARS-CoV-2 (COVID-19) RNA LISBETH+probe Ql (Unsp spec) Respiratory specimen influenza A virus, influenza B virus, respiratory syncytical vir [facility] Serum or plasma albumin/glob ulin mass ratioOrdered By: Luis Goins on 08-01-2024 Albumin/Globulin [Mass ratio] Serum or plasma albumin/globulin mass ratio [facility] Serum or plasma anion gap de terminationOrdered By: Luis Goins on 08-01-2024 Anion gap [Moles/Vol] Serum or plasma an ion gap determination 6.0-15.0 [facility] Sodium [Moles/volume] in Ser um or PlasmaOrdered By: Luis Goins on 08-01-2024 Sodium [Moles/Vol] Sodium [Moles/volume ] in Serum or Plasma 136-145 [facility] Specific gravity Test strip (U) [Rel density]Ordered By: Luis Goins on 08-01-2024 Specific gravity (U) [Rel density] Specific gravity of Urine by Test strip 1.001-1.03 0 [facility] Urea nitrogen [Mass/volume] in Serum or PlasmaOrdered By: Luis Goins 08-01-2024 Urea nitrogen [Mass/Vol] Urea nitrogen [Mass/volume] in Serum or Plasma 7-25 [facility] Urobilinogen Test strip (U) [Mass/Vol]Ordered By: Luis Goins on 08-01-2024 Urobilinogen (U) [Mass/Vol] Urobilinogen [Mass/volume] in Urine by Test strip Normal [facility] WBC Auto (Bld) [#/Vol]Ordere d By: Luis Goins on 08-01-2024 WBC (Bld) [#/Vol] Leukocytes [#/volume ] in Blood by Automated count Low 3.8-11.6 [facility] X-ray reportOrdered By: Larry Heath on 08-01-2024 Study report [facility] [address] [place] [address] XRay Report Signed Patient: Brittanie Garcia MR# : [id number] : 1985 Acct:[id number] Age/Sex: 39 / F ADM Date: 5 Loc: ER Room: Type: [facility] ER Attending Dr: Copies to: Luis Goins DO~ Ordering Provider: Luis Goins DO Date of Service: 08/01/24 XR/XR chest 2V*: Upper Respiratory Infection ([id number]) XR/XR lumbar spine 2-3V*: Upper Respiratory Infection [...] Heath Jr., D.O.08/01/2024 9:17 AM Dictation Location: [place] [address] Transcribed By: [facility] 08/01/24 0917 Dictated By: Prince Heath Jr, DO 08/01/24 0916 Signed By: 08/01/24 09 [facility] XR lumbar spine 2-3V*on 07-19 XR lumbar spine 2-3V* [facility] [address] [place] [address] XRay Report Signed Patient: Brittanie Garcia MR#: [id number] : 1985 Acct:[id number] Age/Sex: 39 / F ADM Date: 08/01/24 Loc: ER Room: Type: [facility] ER Attending Dr: Copies to: Lius Goins DO Ordering Provider: Luis Goins DO Date of Service: 08/01/24 XR/XR chest 2V*: Upper Respiratory Infection ([id number]) XR/XR lumbar spine 2-3V*: Upper Respiratory Infection [...] Heath Jr., D.O.08/01/2024 9:17 AM Dictation Location: [place] [address] Transcribed By: [facility] 08/01/24 0917 Dictated By: Prince Heath Jr, DO 08/01/24 0916 Signed By: 08/01/24 0917 Normal [facility] pH Test strip (U)Ordered By: Luis Goins on 08-01-2024 pH (U) pH of Urine by Test strip 5.0-9.0 [facility] CNOVon 07-30-2024 CNOV Office Visit ([facility] ) BRITTANIE GARCIA ([id number]) 1985 F Date Time Provider Department 07/30/24 4:30 PM HARMAN SULLIVAN [facility] During your visit today, we recorded [...] brought in by patient? No Lot #: [id number] Exp: 09/2026 Dilution: 5 units/0.1 ml (100 [...] Optional follow pain # units L R Project Coordinator 10 units divided in 2 sites [id number] [...] Harman Sullivan MD Referring Provider: HARMAN SULLIVAN [[id number]] Allergies As of Date: 07/30/2024 Noted Allergy [...] for Encounter Date Provider Department Center 07/30/2024 [id number], TED [facility] Encounter Status:Closed by HARMAN SULLIVAN on 07/30/24 Normal [facility] Alanine aminotransferase [En zymatic activity/volume] in Serum or PlasmaOrdered By: Babar Singh on 06-19-2024 ALT [Catalytic activity/Vol] Alanine aminotransferase [Enzymatic activity/volume] in Serum or Plasma High 7-52 [facility] Albumin [Mass/volume] in Ser um or Plasma by Bromocresol green (BCG) dye binding methoOrdered By: Babar Singh on 06-19-2024 Albumin BCG dye [Mass/Vol] Albumin [Mass/volume] in Serum or Plasma by Bromocresol green (BCG) dye binding metho 3.5-5.7 [facility] Alkaline phosphatase [Enzyma tic activity/volume] in Serum or PlasmaOrdered By: Babar Singh on 06-19-2024 ALP [Catalytic activity/Vol] Alkaline phosphatase [Enzymatic activity/volume] in Serum or Plasma 34-104 [facility] Appearance of UrineOrdered B y: PROVIDER TEMP on 06-19-2024 Appearance (U) Urine appearance Abnormal Clear [facility] Aspartate aminotransferase [ Enzymatic activity/volume] in Serum or PlasmaOrdered By: Babar Singh on 06-19-2024 AST [Catalytic activity/Vol] Aspartate aminotransferase [Enzymatic activity/volume] in Serum or Plasma High 13-39 [facility] Bacteria [Presence] in Urine by AutomatedOrdered By: PROVIDER TEMP on 06-19-2024 Bacteria Auto Ql (U) Bacteria [Presence] in Urine by Automated None Seen [facility] Basophils Auto (Bld) [#/Vol] Ordered By: Babar Singh on 06-19-2024 Basophils (Bld) [#/Vol] Automated basophil count 0.0-0.2 [facility] Basophils/100 WBC Auto (Bld) Ordered By: Babar Singh on 06-19-2024 Basophils/100 WBC (Bld) Automated basophil % . [facility] Bilirubin Test strip Ql (U)O rdered By: PROVIDER TEMP on 06-19-2024 Bilirubin Ql (U) Bilirubin.total [Pre sence] in Urine by Test strip Negative [facility] Bilirubin.total [Mass/volume ] in Serum or PlasmaOrdered By: Babar Singh on 06-19-2024 Bilirubin [Mass/Vol] Bilirubin.total [Mass/volume] in Serum or Plasma 0.3-1.0 [facility] Calcium [Mass/volume] in Ser um or PlasmaOrdered By: Babar Singh on 06-19-2024 Calcium [Mass/Vol] Calcium [Mass/volume ] in Serum or Plasma 8.6-10.3 [facility] Carbon dioxide, total [Moles /volume] in Serum or PlasmaOrdered By: Babar Singh on 06-19-2024 CO2 [Moles/Vol] Carbon dioxide, tota l [Moles/volume] in Serum or Plasma 21.0-31.0 [facility] Chloride [Moles/volume] in S leticia or PlasmaOrdered By: Babar Singh on 06-19-2024 Chloride [Moles/Vol] Chloride [Moles/vol ume] in Serum or Plasma 98-107 [facility] Color Auto (U)Ordered By: IGLESIA SINGH on 06-19-2024 Color (U) Color of Urine by Auto Yellow [facility] Complete Blood Count Auto Di ffon 06-19-2024 Basophils (Bld) [#/Vol] 0.0 10*3/uL Normal 0.0-0.2 [facility] Comment on above: Result Comment: PERF ORMED BY: [facility] [address] [place] [id number] PATHOLOGIST SENIOR OFFICE SUPPORT ASSISTANT SOSA RAFIA LOPEZ M.D. Performed By: #### C K, HS TROP, CBC, CMP ####[place] [id number] [place] Basophils/100 WBC (Bld) 0.3 % Normal . [facility] Comment on above: Performed By: #### C K, HS TROP, CBC, CMP ####[facility] [place] [id number] [facility] Eosinophils (Bld) [#/Vol] 0.1 10*3/uL Normal 0.0-0.45 [facility] Comment on above: Performed By: #### C K, HS TROP, CBC, CMP ####[address] Eosinophils/100 WBC (Bld) 1.4 % Normal . [facility] Comment on above: Performed By: #### C K, HS TROP, CBC, CMP ####[address] Erythrocyte distribution width (RBC) [Ratio] 13.7 % Normal 11.9-15.3 [facility] Comment on above: Performed By: #### C K, HS TROP, CBC, CMP ####[address] Hematocrit (Bld) [Volume fraction] 41.7 % Normal 34.0-46.4 [facility] Comment on above: Performed By: #### C K, HS TROP, CBC, CMP ####[address] Hemoglobin (Bld) [Mass/Vol] 14.0 g/dL Normal 11.8-15.4 [facility] Comment on above: Performed By: #### C K, HS TROP, CBC, CMP ####[address] Lymphocytes (Bld) [#/Vol] 1.4 10*3/uL Normal 1.00-4.8 [facility] Comment on above: Performed By: #### C K, HS TROP, CBC, CMP ####[address] Lymphocytes/100 WBC (Bld) 15.4 % Normal . [facility] Comment on above: Performed By: #### C K, HS TROP, CBC, CMP ####[address] MCH (RBC) [Entitic mass] 29.2 pg Normal 24.7-34.3 [facility] Comment on above: Performed By: #### C K, HS TROP, CBC, CMP ####[address] MCV (RBC) [Entitic vol] 87.0 fL Normal 80-100 [facility] Comment on above: Performed By: #### C K, HS TROP, CBC, CMP ####[address] Mean Corpuscular HGB Conc 33.6 g/dL Normal 32.0-35.0 [facility] Comment on above: Performed By: #### C K, HS TROP, CBC, CMP ####[address] Monocytes (Bld) [#/Vol] 0.4 10*3/uL Normal 0.0-0.8 [facility] Comment on above: Performed By: #### C K, HS TROP, CBC, CMP ####[address] Monocytes/100 WBC (Bld) 19.28 % Normal 0.00-20.00 [facility] Comment on above: Performed By: #### C K, HS TROP, CBC, CMP ####[address] Monocytes/100 WBC (Bld) 4.5 % Normal . [facility] Comment on above: Performed By: #### C K, HS TROP, CBC, CMP ####[address] Neutrophils (Bld) [#/Vol] 7.3 10*3/uL Normal 1.8-7.7 [facility] Comment on above: Performed By: #### C K, HS TROP, CBC, CMP ####[address] Neutrophils/100 WBC (Bld) 78.4 % Normal . [facility] Comment on above: Performed By: #### C K, HS TROP, CBC, CMP ####[address] NRBC% 0.1 /100{WBC} Normal 0-0.5 [facility] Comment on above: Performed By: #### C K, HS TROP, CBC, CMP ####[address] Platelet mean volume (Bld) [Entitic vol] 7.9 fL Normal 6.3-10.7 [facility] Comment on above: Performed By: #### C K, HS TROP, CBC, CMP ####[address] Platelets (Bld) [#/Vol] 251 10*3/uL Normal 150-450 [facility] Comment on above: Performed By: #### C K, HS TROP, CBC, CMP ####[address] RBC (Bld) [#/Vol] 4.79 10*6/uL Normal 3.60-5.00 [facility] Comment on above: Performed By: #### C K, HS TROP, CBC, CMP ####[address] WBC (Bld) [#/Vol] 9.3 10*3/uL Normal 3.8-11.6 [facility] Comment on above: Performed By: #### C K, HS TROP, CBC, CMP ####[address] Comprehensive Metabolic Pane pedro 06-19-2024 Albumin [Mass/Vol] 4.4 g/dL Normal 3.5-5.7 [facility] Comment on above: Performed By: #### C K, HS TROP, CBC, CMP ####[address] Albumin/Globulin [Mass ratio] 1.5 {ratio} Normal [facility] Comment on above: Performed By: #### C K, HS TROP, CBC, CMP ####[address] ALP [Catalytic activity/Vol] 87 U/L Normal 34-104 [facility] Comment on above: Performed By: #### C K, HS TROP, CBC, CMP ####[place] [id number] [facility] ALT [Catalytic activity/Vol] 135 U/L High 7-52 [facility] Comment on above: Performed By: #### C K, HS TROP, CBC, CMP ####[place] [id number] [facility] Anion gap [Moles/Vol] 12.0 mmol/L Normal 6.0-15.0 [facility] Comment on above: Performed By: #### C K, HS TROP, CBC, CMP ####[place] [id number] [facility] AST [Catalytic activity/Vol] 80 U/L High 13-39 [facility] Comment on above: Performed By: #### C K, HS TROP, CBC, CMP ####[address] Bilirubin [Mass/Vol] 0.7 mg/dL Normal 0.3-1.0 [facility] Comment on above: Performed By: #### C K, HS TROP, CBC, CMP ####[place] [id number] [facility] Calcium [Mass/Vol] 9.2 mg/dL Normal 8.6-10.3 [facility] Comment on above: Performed By: #### C K, HS TROP, CBC, CMP ####[place] [id number] [facility] Chloride [Moles/Vol] 104 mmol/L Normal 98-107 [facility] Comment on above: Performed By: #### C K, HS TROP, CBC, CMP ####[place] [id number] [facility] CO2 [Moles/Vol] 24.9 mmol/L Normal 21.0-31.0 [facility] Comment on above: Performed By: #### C K, HS TROP, CBC, CMP ####[place] [id number] [facility] Creatinine [Mass/Vol] 0.87 mg/dL Normal 0.60-1.20 [facility] Comment on above: Performed By: #### C K, HS TROP, CBC, CMP ####[place] [address] [place] [id number] [facility] Creatinine Clr Calc Pharmacy 83.38 Normal [facility] Comment on above: Result Comment: PERF ORMED BY: [facility] [address] [place] [address] PATHOLOGIST SENIOR OFFICE SUPPORT ASSISTANT SOSA RAFIA LOPEZ M.D. Performed By: #### C K, HS TROP, CBC, CMP ####[place] [id number] [facility] GFR/1.73 sq M.predicted MDRD (S/P/Bld) [Vol rate/Area] mL/min/{1.73_m2} Normal [facility] Comment on above: Performed By: #### C K, HS TROP, CBC, CMP ####[address] Globulin (S) [Mass/Vol] 3.0 g/dL Normal [facility] Comment on above: Performed By: #### C K, HS TROP, CBC, CMP ####[address] Glucose [Mass/Vol] 90 mg/dL Normal 70-100 [facility] Comment on above: Result Comment: [facility] Glucose Reference Range is dependent on time and content of last meal. Glucose of more than 200 mg/dL in a nonstressed, ambulatory subject supports the diagnosis of Diabetes Mellitus. ADA recommended reference range Performed By: #### C K, HS TROP, CBC, CMP ####[place] [id number] [facility] Potassium [Moles/Vol] 3.9 mmol/L Normal 3.5-5.1 [facility] Comment on above: Performed By: #### C K, HS TROP, CBC, CMP ####[place] [id number] [facility] Protein [Mass/Vol] 7.4 g/dL Normal 6.4-8.9 [facility] Comment on above: Performed By: #### C K, HS TROP, CBC, CMP ####[address] Sodium [Moles/Vol] 137 mmol/L Normal 136-145 [facility] Comment on above: Performed By: #### C K, HS TROP, CBC, CMP ####[place] [id number] [facility] Urea nitrogen [Mass/Vol] 14 mg/dL Normal 7-25 [facility] Comment on above: Performed By: #### C K, HS TROP, CBC, CMP ####[place] [id number] [facility] Creatine Kinaseon 06-19-2024 CK [Catalytic activity/Vol] 51 U/L Normal [facility] Comment on above: Performed By: #### C K, HS TROP, CBC, CMP ####[address] Creatine kinase [Enzymatic a ctivity/volume] in Serum or PlasmaOrdered By: Babar Singh on 06-19-2024 CK [Catalytic activity/Vol] Creatine kinase [Enzymatic activity/volume] in Serum or Plasma [facility] Creatinine [Mass/volume] in Serum or PlasmaOrdered By: Babar Singh on 06-19-2024 Creatinine [Mass/Vol] Creatinine [Mass/v olume] in Serum or Plasma 0.60-1.20 [facility] Dipstick and Microscopicon 0 06-19-2024 Appearance (U) Cloudy Critically abnormal Clear [facility] Comment on above: Order Comment: Name Collection Type:: Clean-Voided Midstream Performed By: #### A DDONUAPLUS ####[place] [id number] [facility] Bacteria,Urine Rare Normal None Seen [facility] Comment on above: Order Comment: Name Collection Type:: Clean-Voided Midstream Performed By: #### A DDONUAPLUS ####[place] [id number] [facility] Bilirubin,Urine Negative Normal Negative [facility] Comment on above: Order Comment: Name Collection Type:: Clean-Voided Midstream Performed By: #### A DDONUAPLUS ####[place] [id number] [facility] Color (U) Yellow Normal Yellow [facility] Comment on above: Order Comment: Name Collection Type:: Clean-Voided Midstream Performed By: #### A DDONUAPLUS ####[place] [id number] [facility] Glucose Ql (U) Normal Normal Normal [facility] Comment on above: Order Comment: Name Collection Type:: Clean-Voided Midstream Performed By: #### A DDONUAPLUS ####[address] Hyaline Casts,Urine None Normal 0-8 [facility] Comment on above: Order Comment: Name Collection Type:: Clean-Voided Midstream Performed By: #### A DDONUAPLUS ####[place] [id number] [facility] Ketones Ql (U) 1+ High Negative [facility] Comment on above: Order Comment: Name Collection Type:: Clean-Voided Midstream Performed By: #### A DDONUAPLUS ####[place] [id number] [facility] Leukocyte esterase Test strip Ql (U) 3+ High Negative [facility] Comment on above: Order Comment: Name Collection Type:: Clean-Voided Midstream Performed By: #### A DDONUAPLUS ####[place] [id number] [facility] Mucus,Urine 2+ Critically abnormal [facility] Comment on above: Order Comment: Name Collection Type:: Clean-Voided Midstream Result Comment: PERF ORMED BY: [facility] [address] [place] [address] PATHOLOGIST SENIOR OFFICE SUPPORT ASSISTANT SOSA RAFIA LOPEZ M.D. Performed By: #### A DDONUAPLUS ####[address] Nitrite,Urine Negative Normal Negative [facility] Comment on above: Order Comment: Name Collection Type:: Clean-Voided Midstream Performed By: #### A DDONUAPLUS ####[address] Occult Blood,Urine Negative Normal Negative [facility] Comment on above: Order Comment: Name Collection Type:: Clean-Voided Midstream Result Comment: PERF ORMED BY: [facility] [address] [place] [address] PATHOLOGIST SENIOR OFFICE SUPPORT ASSISTANT SOSA RAFIA LOPEZ M.D. Performed By: #### A DDONUAPLUS ####[address] pH (U) 5.5 [pH] Normal 5.0-9.0 [facility] Comment on above: Order Comment: Name Collection Type:: Clean-Voided Midstream Performed By: #### A DDONUAPLUS ####[address] Protein,Urine Trace High Negative [facility] Comment on above: Order Comment: Name Collection Type:: Clean-Voided Midstream Performed By: #### A DDONUAPLUS ####[address] RBC,Urine 5 [HPF] High 0-4 [facility] Comment on above: Order Comment: Name Collection Type:: Clean-Voided Midstream Performed By: #### A DDONUAPLUS ####[address] Specificy [place],Urine 1.023 Normal 1.001-1.03 0 [facility] Comment on above: Order Comment: Name Collection Type:: Clean-Voided Midstream Performed By: #### A DDONUAPLUS ####[address] Squamous Epithelial Cell,Urine 10 [HPF] High 0-2 [facility] Comment on above: Order Comment: Name Collection Type:: Clean-Voided Midstream Performed By: #### A DDONUAPLUS ####[id number] Urobilinogen,Urine Normal Normal Normal [facility] Comment on above: Order Comment: Name Collection Type:: Clean-Voided Midstream Performed By: #### A DDONUAPLUS ####[facility] [id number] [place] [id number] [facility] WBC,Urine 3 [HPF] Normal 0-4 [facility] Comment on above: Order Comment: Name Collection Type:: Clean-Voided Midstream Performed By: #### A DDONUAPLUS ####[place] [id number] [address] ECG 12 lead ECGon 06-19-2024 ECG 12 lead ECG [facility] [address] [place] [address] Electrocardiograph Report Signed Patient: Brittanie Garcia MR#: [id number] : 1985 Acct:[id number] Age/Sex: 39 / F ADM Date: 06/19/24 Loc: ER Room: Type: [facility] ER Attending Dr: Ordering Provider: Babar [...] was found Confirmed by LIAM RANDLE DO ([id number]) on 06/19/2024 7:59:22 PM Referred By: Electronically Signed By: LIAM RANDLE DO Transcribed By: MUS Signed By Liam Randle DO 06/19 Normal [facility] Eosinophils Auto (Bld) [#/Vo l]Ordered By: Babar Singh on 06-19-2024 Eosinophils (Bld) [#/Vol] Automated eosinophil count 0.0-0.45 [facility] Eosinophils/100 WBC Auto (Bl d)Ordered By: Babar Singh on 06-19-2024 Eosinophils/100 WBC (Bld) Automated eosinophil % . [facility] Epithelial cells.squamous [# /area] in Urine sediment by Automated countOrdered By: NOLVIA SINGH on 06-19-2024 Epithelial cells.squamous Auto (Urine sed) [#/Area] Epithelial cells.squamous [#/area] in Urine sediment by Automated count High 0-2 [facility] Erythrocyte distribution wid th Auto (RBC) [Ratio]Ordered By: Babar Singh on 06-19-2024 Erythrocyte distribution width (RBC) [Ratio] Erythrocyte distribution width [Ratio] by Automated count 11.9-15.3 [facility] Erythrocytes [#/area] in Uri ne sediment by Automated countOrdered By: NOLVIA SINGH on 06-19-2024 RBC Auto (Urine sed) [#/Area] Erythrocytes [#/area] in Urine sediment by Automated count High 0-4 [facility] Globulin Calc (S) [Mass/Vol] Ordered By: Babar Singh on 06-19-2024 Globulin (S) [Mass/Vol] Serum globulin measurement by calculation (mass/volume) [facility] Glucose Glucometer (BldC) [M ass/Vol]Ordered By: NOLVIA SINGH on 06-19-2024 Glucose [Mass/Vol] Capillary blood gluc ose measurement by glucometer (mass/volume) [facility] Comment on above: Random Glucose Refer ence Range is dependent on time and content of last meal. Glucose of more than 200 mg/dL in a nonstressed, ambulatory subject supports the diagnosis of Diabetes Mellitus. Glucose Poct Glucometerson 0 06-19-2024 Commemt1 Normal [facility] Comment on above: Result Comment: Glu2 : WILL NOTIFY DR/RN Performed By: #### G LULS #### Point of Care testing , Commemt2 Cleaned Meter Normal [facility] Comment on above: Result Comment: PERF ORMED BY: [facility] [address] [place] [address] PATHOLOGIST SENIOR OFFICE SUPPORT ASSISTANT SOSA RAFIA LOPEZ M.D. Performed By: #### G LULS #### Point of Care testing , Glucose [Mass/Vol] 120 mg/dL Normal [facility] Comment on above: Result Comment: [facility] Glucose Reference Range is dependent on time and content of last meal. Glucose of more than 200 mg/dL in a nonstressed, ambulatory subject supports the diagnosis of Diabetes Mellitus. Performed By: #### G LULS #### Point of Care testing , Glucose [Mass/volume] in Ser um or PlasmaOrdered By: Babar Singh on 06-19-2024 Glucose [Mass/Vol] Glucose [Mass/volume ] in Serum or Plasma 70-100 [facility] Comment on above: ADA recommended refe rence rangeRandom Glucose Reference Range is dependent on time and content of last meal. Glucose of more than 200 mg/dL in a nonstressed, ambulatory subject supports the diagnosis of Diabetes Mellitus. Glucose [Mass/volume] in Uri ne by Test stripOrdered By: PROVIDER TEMGeorges on 06-19-2024 Glucose Test strip (U) [Mass/Vol] Glucose [Mass/volume] in Urine by Test strip Normal [facility] Hematocrit Auto (Bld) [Volum e fraction]Ordered By: Babar Singh on 06-19-2024 Hematocrit (Bld) [Volume fraction] Hematocrit [Volume Fraction] of Blood by Automated count 34.0-46.4 [facility] Hemoglobin Test strip Ql (U) Ordered By: NOLVIA SINGH on 06-19-2024 Hemoglobin Ql (U) Hemoglobin [Presence ] in Urine by Test strip Negative [facility] Hemoglobin [Mass/volume] in BloodOrdered By: Babar Singh on 06-19-2024 Hemoglobin (Bld) [Mass/Vol] Hemoglobin [Mass/volume] in Blood 11.8-15.4 [facility] Hyaline casts [#/area] in Ur ine sediment by Automated countOrdered By: PROVIDER SAMANTHA on 06-19-2024 Hyaline casts Auto (Urine sed) [#/Area] Hyaline casts [#/area] in Urine sediment by Automated count 0-8 [facility] Ketones Test strip Ql (U)Ord ered By: PROVIDER SAMANTHA on 06-19-2024 Ketones Ql (U) Ketones [Presence] i n Urine by Test strip High Negative [facility] Leukocyte esterase [Presence ] in Urine by Test stripOrdered By: PROVIDER TEMGeorges on 06-19-2024 Leukocyte esterase Test strip Ql (U) Leukocyte esterase [Presence] in Urine by Test strip High Negative [facility] Leukocytes [#/area] in Urine sediment by Automated countOrdered By: PROVIDER SAMANTHA on 06-19-2024 WBC Auto (Urine sed) [#/Area] Leukocytes [#/area] in Urine sediment by Automated count 0-4 [facility] Leukocytes [#/volume] correc harman for nucleated erythrocytes in Blood by Automated counOrdered By: Babar Singh on 06-19-2024 WBC corrected for nucl RBC Auto (Bld) [#/Vol] Leukocytes [#/volume] corrected for nucleated erythrocytes in Blood by Automated coun 3.8-11.6 [facility] Lymphocytes Auto (Bld) [#/Vo l]Ordered By: Babar Singh on 06-19-2024 Lymphocytes (Bld) [#/Vol] Lymphocytes [#/volume] in Blood by Automated count 1.00-4.8 [facility] Lymphocytes/100 WBC Auto (Bl d)Ordered By: Babar Singh on 06-19-2024 Lymphocytes/100 WBC (Bld) Lymphocytes/100 leukocytes in Blood by Automated count . [facility] MCH Auto (RBC) [Entitic mass ]Ordered By: Babar Singh on 06-19-2024 MCH (RBC) [Entitic mass] MCH [Entitic mass] by Automated count 24.7-34.3 [facility] MCHC Auto (RBC) [Mass/Vol]Or dered By: Babar Singh on 06-19-2024 MCHC (RBC) [Mass/Vol] MCHC [Mass/volume] by Automated count 32.0-35.0 [facility] MCV Auto (RBC) [Entitic vol] Ordered By: Babar Singh on 06-19-2024 MCV (RBC) [Entitic vol] MCV [Entitic volume] by Automated count 80-100 [facility] Monocyte distribution width [Entitic volume] in Blood by AutomatedOrdered By: Babar Singh on 06-19-2024 Monocyte distribution width Auto (Bld) [Entitic vol] Monocyte distribution width [Entitic volume] in Blood by Automated 0.00-20.00 [facility] Monocytes Auto (Bld) [#/Vol] Ordered By: Babar Singh on 06-19-2024 Monocytes (Bld) [#/Vol] Automated blood monocyte count 0.0-0.8 [facility] Monocytes/100 WBC Auto (Bld) Ordered By: Babar Singh on 06-19-2024 Monocytes/100 WBC (Bld) Automated monocyte % . [facility] Mucus [Presence] in Urine by AutomatedOrdered By: PROVIDER TEMP on 06-19-2024 Mucus Auto Ql (U) Mucus [Presence] in Urine by Automated Abnormal [facility] Neutrophils Auto (Bld) [#/Vo l]Ordered By: Babar Singh on 06-19-2024 Neutrophils (Bld) [#/Vol] Neutrophils [#/volume] in Blood by Automated count 1.8-7.7 [facility] Neutrophils/100 WBC Auto (Bl d)Ordered By: Babar Singh on 06-19-2024 Neutrophils/100 WBC (Bld) Automated neutrophil % . [facility] Nitrite Test strip Ql (U)Ord ered By: PROVIDER TEMP on 06-19-2024 Nitrite Ql (U) Nitrite [Presence] i n Urine by Test strip Negative [facility] No Panel InformationOrdered By: Babar Singh on 06-19-2024 Estimated GFR (CKD-EPI) > 60.0 mL/Min [facility] Creatinine Clearance (Chem 83.38 [facility] No Panel InformationOrdered By: PROVIDER TEMP on 06-19-2024 Bedside Glucose #2 Comment Cleaned meter [facility] Bedside Glucose Comment See comment [facility] Comment on above: Glu2: WILL NOTIFY DR /RN Nucleated erythrocytes [Pres ence] in Blood by Automated countOrdered By: Babar Singh on 06-19-2024 Nucleated RBC Auto Ql (Bld) Nucleated erythrocytes [Presence] in Blood by Automated count 0-0.5 [facility] Platelet mean volume Auto (B ld) [Entitic vol]Ordered By: Babar Singh on 06-19-2024 Platelet mean volume (Bld) [Entitic vol] Platelet mean volume [Entitic volume] in Blood by Automated count 6.3-10.7 [facility] Platelets Auto (Bld) [#/Vol] Ordered By: Babar Singh on 06-19-2024 Platelets (Bld) [#/Vol] Platelets [#/volume] in Blood by Automated count 150-450 [facility] Potassium [Moles/volume] in Serum or PlasmaOrdered By: Babar Singh on 06-19-2024 Potassium [Moles/Vol] Potassium [Moles/v olume] in Serum or Plasma 3.5-5.1 [facility] Protein Test strip (U) [Mass /Vol]Ordered By: PROVIDER TEMGeorges on 06-19-2024 Protein (U) [Mass/Vol] Protein [Mass/vol ume] in Urine by Test strip High Negative [facility] Protein [Mass/volume] in Ser um or PlasmaOrdered By: Babar Singh on 06-19-2024 Protein [Mass/Vol] Protein [Mass/volume ] in Serum or Plasma 6.4-8.9 [facility] RBC Auto (Bld) [#/Vol]Ordere d By: Babar Singh on 06-19-2024 RBC (Bld) [#/Vol] Erythrocytes [#/volu me] in Blood by Automated count 3.60-5.00 [facility] Serum or plasma albumin/glob ulin mass ratioOrdered By: Babar Singh on 06-19-2024 Albumin/Globulin [Mass ratio] Serum or plasma albumin/globulin mass ratio [facility] Serum or plasma anion gap de terminationOrdered By: Babar Singh on 06-19-2024 Anion gap [Moles/Vol] Serum or plasma an ion gap determination 6.0-15.0 [facility] Sodium [Moles/volume] in Ser um or PlasmaOrdered By: Babar Singh on 06-19-2024 Sodium [Moles/Vol] Sodium [Moles/volume ] in Serum or Plasma 136-145 [facility] Specific gravity Test strip (U) [Rel density]Ordered By: PROVIDER TEMGeorges on 06-19-2024 Specific gravity (U) [Rel density] Specific gravity of Urine by Test strip 1.001-1.03 0 [facility] Troponin I High Sensitivityo n 06-19-2024 Troponin I High Sensitivity <3 Normal 0-15 [facility] Comment on above: Result Comment: The Troponin units of report have been changed to meet the Chest Pain Accreditation requirement, element EC5.M1l2. Troponin units are changed from pg/ml to ng/L. Also, the decimal is removed and results are in whole numbers. PERFORMED BY: [facility] [address] [place] [id number] PATHOLOGIST SENIOR OFFICE SUPPORT ASSISTANT SOSA RAFIA LOPEZ M.D. Performed By: #### C K, HS TROP, CBC, CMP ####[facility] [place] [id number] [facility] Troponin I.cardiac [Mass/vol ume] in Serum or Plasma by Detection limit <= 0.01 ng/Ordered By: Babar Singh on 06-19-2024 Troponin I.cardiac DL <= 0.01 ng/mL [Mass/Vol] Troponin I.cardiac [Mass/volume] in Serum or Plasma by Detection limit <= 0.01 ng/ 0-15 [facility] Comment on above: The Troponin units o f report have been changed to meet the Chest Pain Accreditation requirement, element EC5.M1l2. Troponin units are changed from pg/ml to ng/L. Also, the decimal is removed and results are in whole numbers. Urea nitrogen [Mass/volume] in Serum or PlasmaOrdered By: Babar Singh on 06-19-2024 Urea nitrogen [Mass/Vol] Urea nitrogen [Mass/volume] in Serum or Plasma 7-25 [facility] Urobilinogen Test strip (U) [Mass/Vol]Ordered By: PROVIDER SAMANTHA on 06-19-2024 Urobilinogen (U) [Mass/Vol] Urobilinogen [Mass/volume] in Urine by Test strip Normal [facility] WBC Auto (Bld) [#/Vol]Ordere d By: Babar Singh on 06-19-2024 WBC (Bld) [#/Vol] Leukocytes [#/volume ] in Blood by Automated count 3.8-11.6 [facility] pH Test strip (U)Ordered By: PROVIDER TEMGeorges on 06-19-2024 pH (U) pH of Urine by Test strip 5.0-9.0 [facility] Pedro 06-17-2024 L ------- Specimen: [id number] Received: 06/17/24 Status: MG Johnson Num: [id number] Spec Type: Surgical Subm Dr: Dano Pyle DO Tissues: A Breast Lumpectmy/Mass - Requiring Micros Eval of Margins (RT BREAST MASS @ 1 B Breast Lumpectmy/Mass - Requiring Micros Eval of Margins (RT BREAST MASS @ 7 Procedures: , Gross/Micro L5/2 Age/ Patient Sex Location Account Attending Physician Brittanie Garcia 39/F [place] [id number] Dano Pyle DO SPEC NUM: [id number] RECD: 06/17/24 STATUS: MG BRYN NUM: [id number] TACOS: 06/17/[address]: Dano Pyle DO ENTERED: 06/17/24 [facility] DR: SPEC TYPE: Surgical DEPT: S ENTERED BY: [id number] RECV BY: [id number] ORDERED: HE/13, Gross/Micro L5/2 ORDERED: HE/13, Gross/Micro L5/2 Pathological Diagnosis A, right breast [...] of note Specimen: [id number] Received: 06/17/24 Status: JESSIEMary Johnson Num: [id number] Spec Type: Surgical Subm Dr: Dano Itzkowitz, DO Tissues: A Breast Lumpectmy/Mass - Requiring Micros Eval of Margins (RT BREAST MASS @ 1 B Breast Lumpectmy/Mass - Requiring Micros Eval of Margins (RT BREAST MASS @ 7 Procedures: MOISESMichael Chen/Mercedez L5/2 Patient: Brittanie Garcia [id number] (Continued) Specimen: [id number] Received: 06/17/24 (Continued) Signed (signature on file) Dany Fonseca MD 06/18/24 1427 Specimen: [id number] Received: 06/17/24 Status: MG Johnson Num: [id number] Spec Type: Surgical Subm Dr: Dano Pyle, DO Tissues: A Breast Lumpectmy/Mass - Requiring Micros Eval of Margins (RT BREAST MASS @ 1 B Breast Lumpectmy/Mass - Requiring Micros Eval of Margins (RT BREAST MASS @ 7 Procedures: , Gross/Micro L5/2 Patient: Brittanie Garcia [id number] (Continued) Specimen: [id number] Received: 06/17/24 (Continued) Clinical Information RT breast [...] Total fixation time: 8 hours (8, ns, S28-684 A)J Part B is received in formalin labeled with the patients name, date of , and mass at (more content not included)... Normal [facility] CNOVon 01-30-2024 CNOV Office Visit ([facility] ) BRITTANIE GARCIA ([id number]) 1985 F Date Time Provider Department 01/30/24 2:00 PM HARMAN SULLIVAN [facility] During your visit today, we recorded [...] brought in by patient? No Lot #: [id number] Exp: 03/2026 Dilution: 5 units/0.1 ml (100 [...] Optional follow pain # units L R Project Coordinator 10 units divided in 2 sites [id number] [...] Harman Sullivan MD Referring Provider: HARMAN SULLIVAN [[id number]] Allergies As of Date: 01/30/2024 Noted Allergy [...] for Encounter Date Provider Department Center 01/30/2024 [id number], TED [facility] Encounter Status:Closed by LAURIEHARMAN on 01/30/24 Normal [facility] US breast RT limitedon 01-27 US breast RT limited [facility] [address] [place] [address] Ultrasound Report Signed Patient: Brittanie Garcia MR#: [id number] : 1985 Acct:[id number] Age/Sex: 39 / F ADM Date: 01/28/24 Loc: [facility] Room: Type: [facility] Attending Dr: Dano Pyle DO Ordering [...] Binta Elaine M.D.01/28/2024 8:30 AM Dictation Location: [facility] Tech: Alayna Choudhary Transcribed By: JADEN 01/28/24829 Dictated By: Binta Elaine MD 01/28/24811 Signed By: 01/28/24829 Normal [facility] Calcium [Mass/volume] in Ser um or PlasmaOrdered By: Dano Pyle on 05-01-2023 Calcium [Mass/Vol] 9.7 mg/dL 8.6-10.3 [facility] Carbon dioxide, total [Moles /volume] in Serum or PlasmaOrdered By: Dano Pyle on 05-01-2023 CO2 [Moles/Vol] 28.9 mmol/L 21.0-31.0 [facility] Chloride [Moles/volume] in S leticia or PlasmaOrdered By: Dano Pyle on 05-01-2023 Chloride [Moles/Vol] 105 mmol/L 98-107 [facility] Creatinine [Mass/volume] in Serum or PlasmaOrdered By: Dano Pyle on 05-01-2023 Creatinine [Mass/Vol] 0.75 mg/dL 0.60-1.20 [facility] Glucose [Mass/volume] in Ser um or PlasmaOrdered By: Dano Pyle on 05-01-2023 Glucose [Mass/Vol] 84 mg/dL 70-100 [facility] Comment on above: ADA recommended refe rence rangeRandom Glucose Reference Range is dependent on time and content of last meal. Glucose of more than 200 mg/dL in a nonstressed, ambulatory subject supports the diagnosis of Diabetes Mellitus. No Panel InformationOrdered By: Dano Pyle on 05-01-2023 Estimated GFR (CKD-EPI) > 60.0 mL/Min [facility] Creatinine Clearance (Chem N/A [facility] Potassium [Moles/volume] in Serum or PlasmaOrdered By: Dano Pyle on 05-01-2023 Potassium [Moles/Vol] 4.3 mmol/L 3.5-5.1 [facility] Serum or plasma anion gap de terminationOrdered By: Dano Pyle on 05-01-2023 Anion gap [Moles/Vol] 9.4 mmol/L 6.0-15.0 [facility] Sodium [Moles/volume] in Ser um or PlasmaOrdered By: Dano Pyle on 05-01-2023 Sodium [Moles/Vol] 139 mmol/L 136-145 [facility] Urea nitrogen [Mass/volume] in Serum or PlasmaOrdered By: Dano Pyle on 05-01-2023 Urea nitrogen [Mass/Vol] 14 mg/dL 7-25 [facility] Basophils Auto (Bld) [#/Vol] Ordered By: Robert Menchaca on 02-07-2023 Basophils (Bld) [#/Vol] 0.0 10*3/uL 0.0-0.2 [facility] Basophils/100 WBC Auto (Bld) Ordered By: Robert Menchaca on 02-07-2023 Basophils/100 WBC (Bld) 0.4 % . [facility] Eosinophils Auto (Bld) [#/Vo l]Ordered By: Robert Menchaca on 02-07-2023 Eosinophils (Bld) [#/Vol] 0.1 10*3/uL 0.0-0.45 [facility] Eosinophils/100 WBC Auto (Bl d)Ordered By: Robert Menchaca on 02-07-2023 Eosinophils/100 WBC (Bld) 1.2 % . [facility] Erythrocyte distribution wid th Auto (RBC) [Ratio]Ordered By: Robert Menchaca on 02-07-2023 Erythrocyte distribution width (RBC) [Ratio] 13.4 % 11.9-15.3 [facility] Ferritin [Mass/volume] in Se rum or PlasmaOrdered By: Robert Menchaca on 02-07-2023 Ferritin [Mass/Vol] 110.5 ng/mL 11.0-306.8 [facility] Hematocrit Auto (Bld) [Volum e fraction]Ordered By: Robert Menchaca on 02-07-2023 Hematocrit (Bld) [Volume fraction] 42.6 % 34.0-46.4 [facility] Hemoglobin [Mass/volume] in BloodOrdered By: Robert Menchaca on 02-07-2023 Hemoglobin (Bld) [Mass/Vol] 14.2 g/dL 11.8-15.4 [facility] Leukocytes [#/volume] correc harman for nucleated erythrocytes in Blood by Automated counOrdered By: Robert Menchaca on 02-07-2023 WBC corrected for nucl RBC Auto (Bld) [#/Vol] 7.0 10*3/uL 3.8-11.6 [facility] Lymphocytes Auto (Bld) [#/Vo l]Ordered By: Robert Menchaca on 02-07-2023 Lymphocytes (Bld) [#/Vol] 2.5 10*3/uL 1.00-4.8 [facility] Lymphocytes/100 WBC Auto (Bl d)Ordered By: Robert Menchaca on 02-07-2023 Lymphocytes/100 WBC (Bld) 35.4 % . [facility] MCH Auto (RBC) [Entitic mass ]Ordered By: Robert Menchaca on 02-07-2023 MCH (RBC) [Entitic mass] 28.7 pg 24.7-34.3 [facility] MCHC Auto (RBC) [Mass/Vol]Or dered By: Robert Menchaca on 02-07-2023 MCHC (RBC) [Mass/Vol] 33.3 g/dL 32.0-35.0 [facility] MCV Auto (RBC) [Entitic vol] Ordered By: Robert Menchaca on 02-07-2023 MCV (RBC) [Entitic vol] 86.2 fL 80-100 [facility] Monocytes Auto (Bld) [#/Vol] Ordered By: Robert Menchaca on 02-07-2023 Monocytes (Bld) [#/Vol] 0.5 10*3/uL 0.0-0.8 [facility] Monocytes/100 WBC Auto (Bld) Ordered By: Robert Menchaca on 02-07-2023 Monocytes/100 WBC (Bld) 6.5 % . [facility] Neutrophils Auto (Bld) [#/Vo l]Ordered By: Robert Menchaca on 02-07-2023 Neutrophils (Bld) [#/Vol] 4.0 10*3/uL 1.8-7.7 [facility] Neutrophils/100 WBC Auto (Bl d)Ordered By: Robert Menchaca on 02-07-2023 Neutrophils/100 WBC (Bld) 56.5 % . [facility] Nucleated erythrocytes [Pres ence] in Blood by Automated countOrdered By: Robert Menchaca on 02-07-2023 Nucleated RBC Auto Ql (Bld) 0.1 /100{WBC} 0-0.5 [facility] Platelet mean volume Auto (B ld) [Entitic vol]Ordered By: Robert Menchaca on 02-07-2023 Platelet mean volume (Bld) [Entitic vol] 8.3 fL 6.3-10.7 [facility] Platelets Auto (Bld) [#/Vol] Ordered By: Robert Menchaca on 02-07-2023 Platelets (Bld) [#/Vol] 223 10*3/uL 150-450 [facility] RBC Auto (Bld) [#/Vol]Ordere d By: Robert Menchaca on 02-07-2023 RBC (Bld) [#/Vol] 4.94 10*6/uL 3.60-5.00 [facility] WBC Auto (Bld) [#/Vol]Ordere d By: Robert Menchaca on 02-07-2023 WBC (Bld) [#/Vol] 7.0 10*3/uL 3.8-11.6 [facility] Echocardiogramon 12-28-[address], [address] [place] [address] TRANSTHORACIC ECHOCARDIOGRAM REPORT Patient Name: BRITTANIE Rudd Physician: [id number] Saeed GARCIA MD Study Date: 12/28/2022 Referring SORAYA CAGE Physician: MRN/PID: [id number] PCP: Filiberto Ying Accession/Order#: [id number] [facility] Location: [place] Date of : 1985 Fellow: Gender: F Nurse: Admit Date: [place] Maker: Lanny Padron [facility] Height: 157.48 cm CC Report to: Weight: 74.84 kg Study Type: Echocardiogram BSA: 1.76 m2 Blood Pressure: 106 /70 mmHg Diagnosis/ICD: R00.0-Tachycardia, unspecified; J73-Uewvafr Indication: Hyperlipidemia, Overweight Procedure/CPT: Echo Complete w Full Doppler-02470 Study Detail: The following Echo studies were [...] 0.8 m/s (0.6-0.9m/s) PV Max P.4 mmHg [id number] Saeed Parada MD Electronically signed on 01/01/2023 at 2:35:16 PM Final Normal [facility] Office Visit (Cardiology)on 11-14-2022 [...] Tilt table Chief Complaint Patient presented to [facility] care. Adult Risk Screening Initial Fall [...] table te (more content not included)... Normal [employer] Office Visit (Cardiology)on 11-10-2022 Follow-up visit Diagnoses/Problems [...] Signs Recorded: 10Nov2022 09:01AMRecorded: 10Nov2022 08:58AM Systolic Nwxegkh86, LUE, Sitting Diastolic Dlolior79, LUE, Sitting Systolic Gwhwjsqi003, LUE, Standing Diastolic Cbjjtges96, LUE, Standing Heart Rate92, L Radial Uglqzweg36, LUE, Sitting Rurnrrewg01, LUE, Sitting Height5 ft 2 in Rlpcua029 lb BMI Diezmxxysb54.63 kg/m2 BSA Calculated1.75 Tobacco Useb) No Falls [...] Nov 10 2022 11:29AM EST (Author) Normal [employer] No Panel Informationon 10-23 -[facility]-Sandu ilan 250 DO Work Phone: Cardiovasc Arrhythmia Result son 09-29-2022 Cardiovasc Arrhythmia Results Reason For Visit Event Monitor: BRITTANIE is here for the application of a 30 day event monitor in office., Diagnosis: Syncope,Fainting Ordering Physician: Dr. Saeed Castellanos, Enrollment sent to: [employer] Monitor number [id number] applied. Holter monitor printed and placed on [...] Nov 02 2022 9:05AM EST (Author) Normal [employer] Office Visit (Cardiology)on 09-20-2022 Follow-up visit Diagnoses/Problems [...] no rebound tachycardia. Recommendations, obtain [facility] monitoring, tilt table test, refer [...] negative for complaint. Vitals Vital Signs Recorded: [id number] 10:01AMRecorded: [id number] 09:59AM Systolic Sknav275 Diastolic Lying88 Systolic Wsfagle714 Diastolic Yuauzfk23 Systolic Mpmyichi893 Diastolic Xaacoqvj79 Heart Rate85, Apical Xwqblyji486, LUE, Supine Jcgtdlfik97, LUE, Supine Height5 ft 2 in Kwmasd677 lb BMI Efzosuvvim20.36 kg/m2 BSA Calculated1.77 Tobacco Useb) No PHQ-2 #1. Ov (more content not included)... Normal [facility] Tobacco Screening.on 023 Adult depression screening assessment No [facility] HeartFluther ilan 250 DO Work Phone: Tobacco use status CP b) No [facility]-Sandu ilan 250 DO Work Phone: MAGDA BY IFA WITH REFLEXon Nuclear Ab IF (S) [Titer] Negative Negative [facility] CCP ANTIBODY IGGon Cyclic citrullinated peptide IgG Qn <20 Units [facility] Cyclic citrullinated peptide IgG Qnon 07-31-2022 CCP Antibody IgG Qualitative Negative Negative [facility] C-REACTIVE PROTEIN (CRP)on 0 07-28-2022 CRP [Mass/Vol] <0.9 mg/dL [facility] CBC W Auto Differential pane l (Bld)on 07-28-2022 Basophils (Bld) [#/Vol] 0.03 10*3/uL <0.11 k/uL [facility] Basophils/100 WBC (Bld) 0.4 % [facility] Differential cell count method Nom (Bld) Auto [facility] Eosinophils (Bld) [#/Vol] 0.07 10*3/uL <0.46 k/uL [facility] Eosinophils/100 WBC (Bld) 0.9 % [facility] Erythrocyte distribution width (RBC) [Ratio] 13.0 % 11.5 - 15.0 % [facility] Hematocrit (Bld) [Volume fraction] 44.1 % 36.0 - 46.0 % [facility] Hemoglobin (Bld) [Mass/Vol] 14.3 g/dL 11.5 - 15.5 g/dL [facility] Immature granulocytes (Bld) [#/Vol] <0.10 k/uL [facility] Immature granulocytes/100 WBC (Bld) 0.3 % [facility] Lymphocytes (Bld) [#/Vol] 2.43 10*3/uL 1.00 - 4.00 k/uL [facility] Lymphocytes/100 WBC (Bld) 30.5 % [facility] MCH (RBC) [Entitic mass] 29.0 pg 26.0 - 34.0 pg [facility] MCHC (RBC) [Mass/Vol] 32.4 g/dL 30.5 - 36.0 g/dL [facility] MCV (RBC) [Entitic vol] 89.5 fL 80.0 - 100.0 fL [facility] Monocytes (Bld) [#/Vol] 0.49 10*3/uL <0.87 k/uL [facility] Monocytes/100 WBC (Bld) 6.1 % [facility] Neutrophils (Bld) [#/Vol] 4.93 10*3/uL 1.45 - 7.50 k/uL [facility] Neutrophils/100 WBC (Bld) 61.8 % [facility] Nucleated RBC (Bld) [#/Vol] <0.01 k/uL [facility] Nucleated RBC/100 WBC (Bld) [Ratio] 0.0 /100 WBC [facility] Platelet mean volume (Bld) [Entitic vol] 10.1 fL 9.0 - 12.7 fL [facility] Platelets (Bld) [#/Vol] 251 10*3/uL 150 - 400 k/uL [facility] RBC (Bld) [#/Vol] 4.93 10*6/uL 3.90 - 5.20 m/uL [facility] WBC (Bld) [#/Vol] 7.97 10*3/uL 3.70 - 11.00 k/uL [facility] Comprehensive metabolic 2000 panelon 07-28-2022 Albumin [Mass/Vol] 4.7 g/dL 3.9 - 4.9 g/dL [facility] ALP [Catalytic activity/Vol] 86 U/L 34 - 123 U/L [facility] ALT [Catalytic activity/Vol] 58 U/L High 7 - 38 U/L [facility] Anion gap [Moles/Vol] 12 mmol/L 9 - 18 mmol/L [facility] AST [Catalytic activity/Vol] 31 U/L 13 - 35 U/L [facility] Bilirubin [Mass/Vol] 0.4 mg/dL 0.2 - 1 .3 mg/dL [facility] Calcium [Mass/Vol] 10.0 mg/dL 8.5 - 10. 2 mg/dL [facility] Chloride [Moles/Vol] 105 mmol/L 97 - 10 5 mmol/L [facility] CO2 [Moles/Vol] 23 mmol/L 22 - 30 mmol/L [facility] Creatinine [Mass/Vol] 0.79 mg/dL 0.58 - 0.96 mg/dL [facility] Estimated Glomerular Filtration Rate 100 mL/min/1.73m >=60 mL/min/1.7 3m [facility] Glucose [Mass/Vol] 84 mg/dL 74 - 99 mg/dL [facility] Potassium [Moles/Vol] 4.1 mmol/L 3.7 - 5.1 mmol/L [facility] Protein [Mass/Vol] 7.7 g/dL 6.3 - 8.0 g/dL [facility] Sodium [Moles/Vol] 140 mmol/L 136 - 144 mmol/L [facility] Urea nitrogen [Mass/Vol] 12 mg/dL 7 - 21 mg/dL [facility] ESR Westergren method (Bld) [Velocity]on 07-28-2022 ESR (Bld) [Velocity] 5 mm/h 0 - 20 mm/hr [facility] No Panel Informationon 07-28 [facility] RHEUMATOID FACTOR BLon 07-28 Rheumatoid factor Qn <16 IU/mL [facility] XR CSPINE OBL FLEX_EXTon XR CSPINE [...] by: NAVNEET MONTERO Date: 2022-02-16 08:57 Normal [facility] Ferritin [Mass/volume] in Se rum or PlasmaOrdered By: Kenna Sheehan on 01-19-2022 Ferritin [Mass/Vol] 51.8 ng/mL 11-306.8 [facility] PAP ACOG PANEL 2: 30 to 65on 01-13-2022 . . Normal [facility] Comment on above: Result Comment: Perf ormed at: WB Performed By: #### [id number] #### [facility] [address] [place] [address] Dr. Lui Fonseca Age Gdln ACOG Testing 30-65 Normal [facility] Comment on above: Performed By: #### [id number] #### [facility] [address] [place] [address] Dr. Lui Fonseca DIAGNOSIS: Comment [facility] Comment on above: Result Comment: NEGA TIVE FOR INTRAEPITHELIAL LESION OR MALIGNANCY. Performed at: WB Performed By: #### [id number] #### [facility] [address] [place] [address] Dr. Lui Fonseca HPV Aptima Negative Normal Negative [facility] Comment on above: Result Comment: This nucleic acid amplification test detects fourteen high-risk HPV types (16,18,31,33,35,39,45,51,52,56,58,59,66,68) without differentiation. Performed at: =G Performed By: #### [id number] #### [facility] [address] [place] [address] Dr. Lui Fonseca Methodology: Comment Normal [facility] Comment on above: Result Comment: This liquid based ThinPrep(R) pap test was screened with the use of an image guided system. Performed at: WB Performed By: #### [id number] #### [facility] [address] [place] [address] Dr. Lui Fonseca Note: Comment [facility] Comment on above: [...] Performed at: WB Performed By: #### [id number] #### [facility] [address] [place] [address] Dr. Lui Fonseca Performed by: Comment Normal [facility] Comment on above: Result Comment: Susan Alejandro, Supervisory Iron Pellet Tester (ASCP) Performed at: WB Performed By: #### [id number] #### [facility] [address] [place] [address] Dr. Lui Fonseca Specimen adequacy: Comment [facility] Comment on above: Result Comment: Sati sfactory for evaluation. No endocervical component is identified. Performed at: WB Performed By: #### [id number] #### [facility] [address] [place] [address] Dr. Lui Fonseca INSULINon 01-02-2022 Insulin 20.6 uIU/mL Normal 2.6-24.9 [facility] Comment on above: Performed By: #### I NSULIN #### [facility] [address] [place] [address] Dr. Lui Fonseca H PYLORI ANTIBODY IGGon 12-19 H. PYLORI IGG ABS 0.15 Index Value Normal 0.00-0.79 [facility] Comment on above: Result Comment: Nega tive <0.80 Equivocal 0.80 - 0.89 Positive >0.89 Performed By: #### H PYLLC #### [facility] [address] [place] [address] Dr. Lui Fonseca T4, T3U, FTI LABCORPon 01-01 Free Thyroxine Index 2.7 Normal 1.2-4.9 [facility] Comment on above: Performed By: #### T HYLC #### [facility] [address] [place] [address] Dr. Lui Fonseca T3 Uptake 30 % Normal 24-39 [facility] Comment on above: Performed By: #### T HYLC #### [facility] [address] [place] [address] Dr. Lui Fonseca T4 [Mass/Vol] 9.1 ug/dL Normal 4.5-12.0 [facility] Comment on above: Performed By: #### T HYLC #### [facility] [address] [place] [address] Dr. Lui Fonseca CBC AUTO DIFFon 12-31-2021 BASO # 0.0 103/ul Normal 0.0-0.1 [facility] Comment on above: Performed By: #### C BC #### [facility] [address] [place] [address] Dr. Lui Fonseca Basophils/100 WBC (Bld) 0.4 % Normal 0.2-2.0 [facility] Comment on above: Performed By: #### C BC #### [facility] [address] [place] [address] Dr. Lui Fonseca EO # 0.2 103/ul Normal 0.0-0.7 [facility] Comment on above: Performed By: #### C BC #### [facility] [address] [place] [address] Dr. Lui Fonseca Eosinophils/100 WBC (Bld) 2.8 % Normal 0.9-7.0 [facility] Comment on above: Performed By: #### C BC #### [facility] [address] [place] [address] Dr. Lui Fonseca Erythrocyte distribution width (RBC) [Ratio] 13.2 % Normal 11.0-15.0 [facility] Comment on above: Performed By: #### C BC #### [facility] [address] [place] [address] Dr. Lui Fonseca Hematocrit (Bld) [Volume fraction] 44.0 % Normal 36.0-48.0 [facility] Comment on above: Performed By: #### C BC #### [facility] [address] [place] [address] Dr. Lui Fonseca Hemoglobin (Bld) [Mass/Vol] 14.3 g/dL Normal 12.0-16.0 [facility] Comment on above: Performed By: #### C BC #### [facility] [address] [place] [address] Dr. Lui Fonseca IG # 0.01 10e3/ul Normal 0.00-0.03 [facility] Comment on above: Performed By: #### C BC #### [facility] [address] [place] [address] Dr. Lui Fonseca IG % 0.2 % Normal 0.0-0.5 [facility] Comment on above: Performed By: #### C BC #### [facility] [address] [place] [address] Dr. Lui Fonseca LYMPH # 2.3 103/ul Normal 1.2-3.8 [facility] Comment on above: Performed By: #### C BC #### [facility] [address] [place] [address] Dr. Lui Fonseca Lymphocytes/100 WBC (Bld) 41.6 % Normal 20.5-60.0 [facility] Comment on above: Performed By: #### C BC #### [facility] [address] [place] [address] Dr. Lui Fonseca MANUAL DIFF REQ NO Normal [facility] Comment on above: Performed By: #### C BC #### [facility] [address] [place] [address] Dr. Lui Fonseca MCH (RBC) [Entitic mass] 29.1 pg Normal 26.7-34.0 [facility] Comment on above: Performed By: #### C BC #### [facility] [address] [place] [address] Dr. Lui Fonseca MCHC (RBC) [Mass/Vol] 32.5 g/dL Normal 29.9-35.2 [facility] Comment on above: Performed By: #### C BC #### [facility] [address] [place] [address] Dr. Lui Fonseca MCV (RBC) [Entitic vol] 89.6 fL Normal 81.0-99.0 [facility] Comment on above: Performed By: #### C BC #### [facility] [address] [place] [address] Dr. Lui Fonseca MONO # 0.3 103/ul Normal 0.3-0.8 [facility] Comment on above: Performed By: #### C BC #### [facility] [address] [place] [address] Dr. Lui Fonseca Monocytes/100 WBC (Bld) 6.3 % Normal 1.7-12.0 [facility] Comment on above: Performed By: #### C BC #### [facility] [address] [place] [address] Dr. Lui Fonseca NEUT # 2.7 103/ul Normal 1.4-6.5 [facility] Comment on above: Performed By: #### C BC #### [facility] [address] [address] [address] Lui Fosneca Neutrophils/100 WBC (Bld) 48.7 % Normal 43.0-75.0 [facility] Comment on above: Performed By: #### C BC #### [facility] [address] [address] [address] Lui Fonseca Platelet mean volume (Bld) [Entitic vol] 9.5 fL Normal 9.5-13.5 [facility] Comment on above: Performed By: #### C BC #### [facility] [address] [address] [address] Lui Fonseca PLT 276 103/ul Normal 150-450 [facility] Comment on above: Performed By: #### C BC #### [facility] [address] [place] [address] Dr. Lui Fonseca RBC 4.91 106/ul Normal 4.20-5.40 [facility] Comment on above: Performed By: #### C BC #### [facility] [address] [address] [address] Lui Fonseca WBC 5.4 103/ul Normal 4.0-11.0 [facility] Comment on above: Performed By: #### C BC #### [facility] [address] [address] [address] Lui Fonseca GLYCOHEMOGLOBIN A1Con 2021 ADA RECOMMENDATION SEE BELOW Normal [facility] Comment on above: Result Comment: ADA RECOMMENDED LIMIT 4.0 - 6.0 ADA THERAPEUTIC TARGET < 7.0 ACTION SUGGESTED > 7.0 Performed By: #### A 1C ####[facility] [address] [id number]. Lui Fonseca Glucose [Mass/Vol] 97 mg/dL Normal [facility] Comment on above: Performed By: #### A 1C ####[facility] [address] [id number]. Lui Fonseca HbA1c (Bld) [Mass fraction] 5.0 % Normal 4.5-6.2 [facility] Comment on above: Performed By: #### A 1C ####[facility] [address] [place], [place] [address]Dr. Lui Fonseca IRONon 12-31-2021 Iron [Mass/Vol] 101.0 ug/dL Normal 50.0-170.0 [facility] Comment on above: Performed By: #### I EDMOND #### [facility] [address] [place], [place] [address] Dr. Lui Fonseca LIPID PROFILEon 12-31-2021 CHOL-HDL RATIO NORM SEE BELOW Normal [facility] Comment on above: Result Comment: 3.3 - 4.4 LOW RISK 4.4 - 7.1 AVERAGE RISK 7.1 - 11.0 MODERATE RISK >11.0 HIGH RISK Performed By: #### T SH, LIPID, CMP ####[facility] [address] [id number]. Lui Fonseca Cholesterol [Mass/Vol] 149 mg/dL Normal <=200 [facility] Comment on above: Performed By: #### T MAMADOU, LIPID, CMP ####[facility] [address] [place], [place] [address]PuLatisha Fonseca Cholesterol in HDL [Mass/Vol] 55 mg/dL Normal 40-60 [facility] Comment on above: Performed By: #### T MAMADOU, LIPID, CMP ####[facility] [address] [place], [place] [address]FrLatisha Fonseca Cholesterol in LDL [Mass/Vol] 61.4 mg/dL Normal [facility] Comment on above: Performed By: #### T SH, LIPID, CMP ####[facility] [address] [place], [place] [address]Ha. Lui Fonseca Cholesterol.total/Chol esterol in HDL [Mass ratio] 2.7 {ratio} Normal [facility] Comment on above: Performed By: #### T SH, LIPID, CMP ####[facility] [address] [place], [place] [address]HkLatisha Fonseca HDL NORMAL > or = 60 mg/dl - LO W CARDIOVASCULAR RISK <40 mg/dl - HIGH CARDIOVASCULAR RISK Normal [facility] Comment on above: Performed By: #### T MAMADOU, LIPID, CMP ####[facility] [address] [id number]. Lui Fonseca LDL CALC NORMAL SEE BELOW Normal [facility] Comment on above: Result Comment: <100 mg/dl OPTIMAL 100 - 129 mg/dl NEAR OR ABOVE OPTIMAL 130 - 159 mg/dl BORDERLINE HIGH 160 - 189 mg/dl HIGH >190 mg/dl VERY HIGH Performed By: #### T MAMADOU, LIPID, CMP ####[facility] [address] [place] [address]Dr. Lui Fonseca Triglyceride [Mass/Vol] 163 mg/dL Critically high <=150 [facility] Comment on above: Performed By: #### T MAMADOU, LIPID, CMP ####[facility] [address] [place] [address]Dr. Lui Fonseca VLDL CALC 32.6 mg/dL Normal [facility] Comment on above: Performed By: #### T MAMADOU, LIPID, CMP ####[facility] [address] [place] [address]Dr. Lui Fonseca OCC BLD IMMUNO SCREENon 12-19 OCCULT BLOOD Negative Normal NEGATIVE [facility] Comment on above: Performed By: #### O BSCRN #### [facility] [address] [address] [address] Lui Fonseca PROF 14(COMP METB)on 022 Albumin [Mass/Vol] 4.1 g/dL Normal 3.4-5.0 [facility] Comment on above: Performed By: #### T MAMADOU, LIPID, CMP ####[facility] [address] [place] [address]Dr. Lui Fonseca Albumin/Globulin [Mass ratio] 1.2 {ratio} Normal [facility] Comment on above: Performed By: #### T MAMADOU, LIPID, CMP ####[facility] [address] [place] [id number]. Lui Fonseca ALP [Catalytic activity/Vol] 86 U/L Normal 46-116 [facility] Comment on above: Performed By: #### T SH, LIPID, CMP ####[facility] [address] [place] [id number]. Lui Fonseca ALT [Catalytic activity/Vol] 27 U/L Normal 14-59 [facility] Comment on above: Performed By: #### T SH, LIPID, CMP ####[facility] [address] [place] [id number]. Lui Fonseca Anion gap [Moles/Vol] 14.1 mmol/L Normal [facility] Comment on above: Performed By: #### T SH, LIPID, CMP ####[facility] [address] [place] [address]Dr. Lui Fonseca AST [Catalytic activity/Vol] 15 U/L Normal 15-37 [facility] Comment on above: Performed By: #### T MAMADOU, LIPID, CMP ####[facility] [address] [facility], [place] [address]Dr. Lui Fonseca Bilirubin [Mass/Vol] 0.6 mg/dL Normal 0.2-1.0 [facility] Comment on above: Performed By: #### T MAMADOU, LIPID, CMP ####[facility] [address] [place], [place] [address]Dr. Lui Fonseca Calcium [Mass/Vol] 9.1 mg/dL Normal 8.5-10.1 [facility] Comment on above: Performed By: #### T MAMADOU, LIPID, CMP ####[facility] [address] [place], [place] [address]Dr. Lui Fonseca Chloride [Moles/Vol] 104 mmol/L Normal 98-107 [facility] Comment on above: Performed By: #### T MAMADOU, LIPID, CMP ####[facility] [address] [facility], [place] [address]Dr. Lui Fonseca CO2 [Moles/Vol] 26.8 mmol/L Normal 21.0-32.0 [facility] Comment on above: Performed By: #### T MAMADOU, LIPID, CMP ####[facility] [address] [facility], [place] [address]Dr. Lui Fonseca Creatinine [Mass/Vol] 0.84 mg/dL Normal 0.55-1.02 [facility] Comment on above: Performed By: #### T SH, LIPID, CMP ####[facility] [address] [place] [address]Dr. Lui Fonseca EGFR-AF CAMEROONIAN >60 Normal >=60 [facility] Comment on above: Performed By: #### T SH, LIPID, CMP ####[facility] [address] [place] [address]Dr. Lui Fonseca EGFR-NON AF CAMEROONIAN >60 Normal >=60 [facility] Comment on above: Performed By: #### T SH, LIPID, CMP ####[facility] [address] [place] [address]Dr. Lui Fonseca Globulin (S) [Mass/Vol] 3.3 g/dL Normal [facility] Comment on above: Performed By: #### T SH, LIPID, CMP ####[facility] [address] [facility], [place] [address]Dr. Lui Fonseca Glucose [Mass/Vol] 93 mg/dL Normal 74-106 [facility] Comment on above: Performed By: #### T SH, LIPID, CMP ####[facility] [address] [facility], [place] [address]Dr. Lui Fonseca Potassium [Moles/Vol] 3.9 mmol/L Normal 3.5-5.1 [facility] Comment on above: Performed By: #### T SH, LIPID, CMP ####[facility] [address] [facility], [place] [address]Dr. Lui Fonseca Protein [Mass/Vol] 7.4 g/dL Normal 6.4-8.2 [facility] Comment on above: Performed By: #### T SH, LIPID, CMP ####[facility] [address] [facility], [place] [address]Dr. Lui Fonseca Sodium [Moles/Vol] 141 mmol/L Normal 136-145 [facility] Comment on above: Performed By: #### T SH, LIPID, CMP ####[facility] [address] [facility], [place] [address]Dr. Lui Fonseca Urea nitrogen [Mass/Vol] 8.0 mg/dL Normal 7.0-18.0 [facility] Comment on above: Performed By: #### T SH, LIPID, CMP ####[facility] [address] [place], [place] [address]Vz. Lui Fonseca Urea nitrogen/Creatinine [Mass ratio] 9.5 mg/mg Normal [facility] Comment on above: Performed By: #### T SH, LIPID, CMP ####[facility] [address] [place], [place] [address]Vk. Lui Fonseca TSHon 12-31-2021 TSH 0.539 uIU/mL Normal 0.358-3.74 0 [facility] Comment on above: Performed By: #### T MAMADOU, LIPID, CMP ####[facility] [address] [place] [id number]. Lui Fonseca Vital Signs Date Time Vital Sign Value Performing Clinician Facility 01-21-2025 08:00-0400 Body height 157.5 cm Sis Irby MD Work Phone: [facility] 01-21-2025 08:00-0400 Body mass index (BMI) [Ratio] 29.81 kg/m2 Sis Irby MD Work Phone: [facility] 01-21-2025 08:00-0400 Body weight 73.94 kg Sis Irby MD Work Phone: [facility] 01-21-2025 08:00-0400 Diastolic blood pressure 79 mm[Hg] Sis Irby MD Work Phone: [facility] 01-21-2025 08:00-0400 Heart rate 81 /min Sis Irby MD Work Phone: [facility] 01-21-2025 08:00-0400 Systolic blood pressure 111 mm[Hg] Sis Irby MD Work Phone: [facility] 11-20-2024 09:04-0400 Body height 157.5 cm Sis Irby MD Work Phone: [facility] 11-20-2024 09:04-0400 Body mass index (BMI) [Ratio] 30.54 kg/m2 Sis Irby MD Work Phone: [facility] 11-20-2024 09:04-0400 Body weight 75.75 kg Sis Irby MD Work Phone: [facility] 11-20-2024 09:04-0400 Diastolic blood pressure 84 mm[Hg] Sis Irby MD Work Phone: [facility] 11-20-2024 09:04-0400 Systolic blood pressure 126 mm[Hg] Sis Irby MD Work Phone: [facility] 10-29-2024 16:09-0400 Body height 157.5 cm Harman Sullivan MD Work Phone: [facility] 10-29-2024 16:09-0400 Body mass index (BMI) [Ratio] 29.84 kg/m2 Harman Sullivan MD Work Phone: [facility] 10-29-2024 16:09-0400 Body weight 74 kg Harman Sullivan MD Work Phone: [facility] 10-29-2024 16:09-0400 Diastolic blood pressure 77 mm[Hg] Harman Sullivan MD Work Phone: [facility] 10-29-2024 16:09-0400 Heart rate 102 /min Harman Sullivan MD Work Phone: [facility] 10-29-2024 16:09-0400 SaO2% (BldA) [Mass fraction] 99 % Harman Sullivan MD Work Phone: [facility] 10-29-2024 16:09-0400 Systolic blood pressure 111 mm[Hg] Harman Sullivan MD Work Phone: [facility] 10-22-2024 15:46-0400 Body height 157.48 cm Filiberto Ying MD Work Phone: [facility] 10-22-2024 15:46-0400 Body mass index (BMI) [Ratio] 30 kg/m2 Filiberto Ying MD Work Phone: [facility] 10-22-2024 15:46-0400 Body weight 74.5 kg Filiberto Ying MD Work Phone: [facility] 10-22-2024 15:46-0400 Diastolic blood pressure 80 mm[Hg] Filiberto Ying MD Work Phone: [facility] 10-22-2024 15:46-0400 Heart rate 88 /min Filiberto Ying MD Work Phone: [facility] 10-22-2024 15:46-0400 SaO2% (BldA) [Mass fraction] 99 % Filiberto Ying MD Work Phone: [facility] 10-22-2024 15:46-0400 Systolic blood pressure 110 mm[Hg] Filiberto Ying MD Work Phone: [facility] 09-17-2024 08:59-0400 Diastolic blood pressure 68 mm[Hg] Filiberto Ying MD Work Phone: [facility] 09-17-2024 08:59-0400 Heart rate 85 /min Filiberto Ying MD Work Phone: [facility] 09-17-2024 08:59-0400 Respiratory rate 18 /min Filiberto Ying MD Work Phone: [facility] 09-17-2024 08:59-0400 SaO2% (BldA) [Mass fraction] 98 % Filiberto Ying MD Work Phone: [facility] 09-17-2024 08:59-0400 Systolic blood pressure 104 mm[Hg] Filiberto Ying MD Work Phone: [facility] 09-17-2024 05:05-0400 Body height 157.48 cm Filiberto Ying MD Work Phone: [facility] 09-17-2024 05:05-0400 Body temperature 98.1 [degF] Filiberto Ying MD Work Phone: [facility] 09-17-2024 05:05-0400 Body weight 75.55 kg Filiberto Ying MD Work Phone: [facility] 08-01-2024 10:43-0400 Diastolic blood pressure 85 mm[Hg] Filiberto Ying MD Work Phone: [facility] 08-01-2024 10:43-0400 Heart rate 72 /min Filiberto Ying MD Work Phone: [facility] 08-01-2024 10:43-0400 Respiratory rate 18 /min Filiberto Ying MD Work Phone: [facility] 08-01-2024 10:43-0400 SaO2% (BldA) [Mass fraction] 99 % Filiberto Ying MD Work Phone: [facility] 08-01-2024 10:43-0400 Systolic blood pressure 116 mm[Hg] Filiberto Ying MD Work Phone: [facility] 08-01-2024 09:25-0400 Body temperature 98.2 [degF] Filiberto Ying MD Work Phone: [facility] 08-01-2024 07:49-0400 Body height 157.48 cm Filiberto Ying MD Work Phone: [facility] 08-01-2024 07:49-0400 Body weight 73.25 kg Filiberto Ying MD Work Phone: [facility] 07-30-2024 16:17-0400 Body height 157.5 cm Harman Sullivan MD Work Phone: [facility] 07-30-2024 16:17-0400 Body mass index (BMI) [Ratio] 30.24 kg/m2 Harman Sullivan MD Work Phone: [facility] 07-30-2024 16:17-0400 Body weight 75 kg Harman Sullivan MD Work Phone: [facility] 07-30-2024 16:17-0400 Diastolic blood pressure 82 mm[Hg] Harman Sullivan MD Work Phone: [facility] 07-30-2024 16:17-0400 Heart rate 106 /min Harman Sullivan MD Work Phone: [facility] 07-30-2024 16:17-0400 SaO2% (BldA) [Mass fraction] 98 % Harman Sullivan MD Work Phone: [facility] 07-30-2024 16:17-0400 Systolic blood pressure 128 mm[Hg] Harman Sullivan MD Work Phone: [facility] 06-19-2024 20:00-0500 Diastolic blood pressure 61 mm[Hg] Filiberto Ying MD Work Phone: [facility] 06-19-2024 20:00-0500 Heart rate 67 /min Filiberto Ying MD Work Phone: [facility] 06-19-2024 20:00-0500 Respiratory rate 24 /min Filiberto Ying MD Work Phone: [facility] 06-19-2024 20:00-0500 SaO2% (BldA) [Mass fraction] 99 % Filiberto Ying MD Work Phone: [facility] 06-19-2024 20:00-0500 Systolic blood pressure 103 mm[Hg] Filiberto Ying MD Work Phone: [facility] 06-19-2024 13:52-0500 Body height 157.48 cm Filiberto Ying MD Work Phone: [facility] 06-19-2024 13:52-0500 Body temperature 98.1 [degF] Filiberto Ying MD Work Phone: [facility] 06-19-2024 13:52-0500 Body weight 74 kg Filiberto Ying MD Work Phone: [facility] 06-17-2024 10:04-0500 Diastolic blood pressure 72 mm[Hg] Filiberto Ying MD Work Phone: [facility] 06-17-2024 10:04-0500 Heart rate 85 /min Filiberto Ying MD Work Phone: [facility] 06-17-2024 10:04-0500 Respiratory rate 20 /min Filiberto Ying MD Work Phone: [facility] 06-17-2024 10:04-0500 SaO2% (BldA) [Mass fraction] 100 % Filiberto Ying MD Work Phone: [facility] 06-17-2024 10:04-0500 Systolic blood pressure 121 mm[Hg] Filiberto Ying MD Work Phone: [facility] 06-17-2024 09:19-0500 Body temperature 97 [degF] Filiberto Ying MD Work Phone: [facility] 06-17-2024 09:19-0500 Inhaled oxygen flow rate 6 L/min Filiberto Ying MD Work Phone: [facility] 06-17-2024 06:55-0500 Body height 157.48 cm Filiberto Ying MD Work Phone: [facility] 06-17-2024 06:55-0500 Body weight 75 kg Filiberto Ying MD Work Phone: [facility] 01-30-2024 13:48-0400 Body height 157.5 cm Harman Sullivan MD Work Phone: [facility] 01-30-2024 13:48-0400 Body mass index (BMI) [Ratio] 28.43 kg/m2 Harman Sullivan MD Work Phone: [facility] 01-30-2024 13:48-0400 Body weight 70.5 kg Harman Sullivan MD Work Phone: [facility] 01-30-2024 13:48-0400 Diastolic blood pressure 76 mm[Hg] Harman Sullivan MD Work Phone: [facility] 01-30-2024 13:48-0400 Heart rate 91 /min Harman Sullivan MD Work Phone: [facility] 01-30-2024 13:48-0400 Systolic blood pressure 115 mm[Hg] Harman Sullivan MD Work Phone: [facility] 10-31-2023 10:14-0400 Body height 157.5 cm Harman Sullivan MD Work Phone: [facility] 10-31-2023 10:14-0400 Body mass index (BMI) [Ratio] 27.82 kg/m2 Harman Sullivan MD Work Phone: [facility] 10-31-2023 10:14-0400 Body weight 69 kg Harman Sullivan MD Work Phone: [facility] 10-31-2023 10:14-0400 Diastolic blood pressure 70 mm[Hg] Harman Sullivan MD Work Phone: [facility] 10-31-2023 10:14-0400 Heart rate 84 /min Harman Sullivan MD Work Phone: [facility] 10-31-2023 10:14-0400 Systolic blood pressure 109 mm[Hg] Harman Sullivan MD Work Phone: [facility] 09-21-2023 08:12-0400 Body height 157.5 cm Harman Sullivan MD Work Phone: [facility] 09-21-2023 08:12-0400 Body mass index (BMI) [Ratio] 27.58 kg/m2 Harman Sullivan MD Work Phone: [facility] 09-21-2023 08:12-0400 Body weight 68.4 kg Harman Sullivan MD Work Phone: [facility] 09-21-2023 08:12-0400 Diastolic blood pressure 74 mm[Hg] Harman Sullivan MD Work Phone: [facility] 09-21-2023 08:12-0400 Heart rate 84 /min Harman Sullivan MD Work Phone: [facility] 09-21-2023 08:12-0400 SaO2% (BldA) [Mass fraction] 99 % Harman Sullivan MD Work Phone: [facility] 09-21-2023 08:12-0400 Systolic blood pressure 109 mm[Hg] Harman Sullivan MD Work Phone: [facility] 05-15-2023 12:15-0500 Diastolic blood pressure 67 mm[Hg] MD Filiberto Ying Work Phone: [facility] 05-15-2023 12:15-0500 Heart rate 86 /min MD Filiberto Ying Work Phone: [facility] 05-15-2023 12:15-0500 Respiratory rate 16 /min MD Filiberto Ying Work Phone: [facility] 05-15-2023 12:15-0500 SaO2% (BldA) [Mass fraction] 100 % MD Filiberto Ying Work Phone: [facility] 05-15-2023 12:15-0500 Systolic blood pressure 125 mm[Hg] MD Filiberto Ying Work Phone: [facility] 05-15-2023 11:10-0500 Inhaled oxygen flow rate 6 L/min MD Filiberto Ying Work Phone: [facility] 05-15-2023 10:55-0500 Body temperature 98.1 [degF] MD Filiberto Ying Work Phone: [facility] 05-15-2023 09:30-0500 Body mass index (BMI) [Ratio] 25.8 kg/m2 MD Filiberto Ying Work Phone: [facility] 05-15-2023 08:55-0500 Body height 157.48 cm MD Filiberto Ying Work Phone: [facility] 05-15-2023 08:55-0500 Body weight 64 kg MD Filiberto Ying Work Phone: [facility] 04-05-2023 12:08-0500 Body temperature 98.2 [degF] MD Filiberto Ying Work Phone: [facility] 04-05-2023 12:08-0500 Diastolic blood pressure 69 mm[Hg] MD Filiberto Ying Work Phone: [facility] 04-05-2023 12:08-0500 Heart rate 87 /min MD Filiberto Ying Work Phone: [facility] 04-05-2023 12:08-0500 Respiratory rate 18 /min MD Filiberto Ying Work Phone: [facility] 04-05-2023 12:08-0500 SaO2% (BldA) [Mass fraction] 100 % MD Filiberto Ying Work Phone: [facility] 04-05-2023 12:08-0500 Systolic blood pressure 110 mm[Hg] MD Filiberto Ying Work Phone: [facility] 01-12-2023 09:35-0400 Body height 157.5 cm Robert Bernarda SMOKE EATER.COMMERCIAL REPORTER Work Phone: [facility] 01-12-2023 09:35-0400 Body weight 70.31 kg Robert Bernarda SMOKE EATER.COMMERCIAL REPORTER Work Phone: [facility] 01-12-2023 09:35-0400 Diastolic blood pressure 69 mm[Hg] Robert Bernarda SMOKE EATER.COMMERCIAL REPORTER Work Phone: [facility] 01-12-2023 09:35-0400 Heart rate 110 /min Robert Bernarda SMOKE EATER.COMMERCIAL REPORTER Work Phone: [facility] 01-12-2023 09:35-0400 SaO2% (BldA) [Mass fraction] 93 % Robert Bernarda SMOKE EATER.COMMERCIAL REPORTER Work Phone: [facility] 01-12-2023 09:35-0400 Systolic blood pressure 110 mm[Hg] Robert Bernarda SMOKE EATER.COMMERCIAL REPORTER Work Phone: [facility] 10-23-2022 14:14-0400 Diastolic blood pressure 66 mm[Hg] MD Filiberto Ying Work Phone: [facility] 10-23-2022 14:14-0400 Heart rate 100 /min MD Filiberto Ying Work Phone: [facility] 10-23-2022 14:14-0400 Systolic blood pressure 113 mm[Hg] Filiberto Stepan Work Phone: [facility] 10-23-2022 13:50-0400 SaO2% (BldA) [Mass fraction] 99 % Filiberto Hoy Work Phone: [facility] 09-20-2022 10:01-0400 Diastolic blood pressure 88 mm[Hg] Filiberto M Hoy Work Phone: [facility] [address] DO Work Phone: 09-20-2022 10:01-0400 Diastolic blood pressure 84 mm[Hg] Filiberto M Hoy Work Phone: [facility] 250 DO Work Phone: 09-20-2022 10:01-0400 Diastolic blood pressure 86 mm[Hg] Filiberto Zoe Hoy Work Phone: [facility] 250 DO Work Phone: 09-20-2022 10:01-0400 Systolic blood pressure 120 mm[Hg] Filiberto M Hoy Work Phone: [facility] 250 DO Work Phone: 09-20-2022 10:01-0400 Systolic blood pressure 122 mm[Hg] Filiberto M Hoy Work Phone: [facility] 250 DO Work Phone: 09-20-2022 09:59-0400 Body height 157.48 cm Filiberto M Hoy Work Phone: [facility] 250 DO Work Phone: 09-20-2022 09:59-0400 Body mass index (BMI) [Ratio] 30.36 kg/m2 Filiberto M Hoy Work Phone: [facility] 250 DO Work Phone: 09-20-2022 09:59-0400 Body surface area Derived from formula 1.77 m2 Filiberto Zoe Hoy Work Phone: [facility] 250 DO Work Phone: 09-20-2022 09:59-0400 Body weight 75.3 kg Filiberto Zoe Hoy Work Phone: [facility] 250 DO Work Phone: 09-20-2022 09:59-0400 Diastolic blood pressure 88 mm[Hg] Filiberto Zoe Hoy Work Phone: [facility] 250 DO Work Phone: 09-20-2022 09:59-0400 Heart rate 85 /min Filiberto Zoe Hoy Work Phone: [facility] 250 DO Work Phone: 09-20-2022 09:59-0400 Systolic blood pressure 120 mm[Hg] Filiberto Zoe Hoy Work Phone: [facility] 250 DO Work Phone: 07-28-2022 13:01-0500 Body height 157.5 cm Somjita Braxton SMOKE EATER.COMMERCIAL REPORTER Work Phone: [facility] 07-28-2022 13:01-0500 Body temperature 97.81 [degF] Somjita Braxton SMOKE EATER.COMMERCIAL REPORTER Work Phone: [facility] 07-28-2022 13:01-0500 Body weight 79.11 kg Somjita Braxton SMOKE EATER.COMMERCIAL REPORTER Work Phone: [facility] 07-28-2022 13:01-0500 Diastolic blood pressure 59 mm[Hg] Somjita Braxton SMOKE EATER.COMMERCIAL REPORTER Work Phone: [facility] 07-28-2022 13:01-0500 Heart rate 85 /min Somjita Braxton SMOKE EATER.COMMERCIAL REPORTER Work Phone: [facility] 03-10-2023 13:01-0500 Systolic blood pressure 117 mm[Hg] Nayely Limon MARISEL Work Phone: [facility] Encounters Encounter Date Encounter Type Care Provider Facility Start: 01-28-2025 End: 01-28-2025 Nadia Bedolla MD Work Phone: [facility] Start: 01-28-2025 End: 01-28-2025 Bamboo flowsmelita Bedolla MD Work Phone: [facility] Start: 01-28-2025 End: 01-28-2025 Office outpatient visit 25 minutes Ban Bedolla MD Work Phone: [facility] Comment on above: Other rosacea (Prima ry Dx); Cellulitis of left thumb Start: 01-28-2025 End: 01-28-2025 ambulatory BAN BEDOLLA Not Available Start: 01-21-2025 End: 01-21-2025 Bamboo flowsheet Sis Irby MD Work Phone: [facility] Start: 01-21-2025 End: 01-21-2025 Bamboo zeroboundheet Sis Irby MD Work Phone: [facility] Start: 01-21-2025 End: 01-21-2025 Office outpatient visit 15 minutes Ban Bedolla MD Work Phone: [facility] Comment on above: Cellulitis of left t humb (Primary Dx) Start: 01-21-2025 End: 01-24-2025 Orders Only Ban Bedolla MD Work Phone: [facility] External Department Unsolicited Start: 01-21-2025 End: 01-21-2025 ambulatory BANAHMET QUIROSITTI Not Available Start: 01-21-2025 End: 01-21-2025 Office outpatient visit 25 minutes Sis Irby MD Work Phone: [facility] Comment on above: RLS (restless legs s yndrome) (Primary Dx); Cervical dystonia; Cervicogenic headache; Intractable chronic migraine without aura and with status migrainosus Start: 01-21-2025 End: 01-21-2025 ambulatory SIS IRBY Not Available Start: 11-27-2024 End: 11-27-2024 ambulatory SIS IRBY Not Available Start: 11-25-2024 End: 11-25-2024 Bamboo flowsmelita Bedolla [...] Bamboo flowsheet Sis Irby MD Work Phone: [facility] Start: 11-20-2024 End: 11-20-2024 Bamboo flowsmelita Irby MD Work Phone: [facility] Start: 11-20-2024 End: 11-20-2024 Office outpatient new 45 minutes Sis Ibry MD Work Phone: [facility] Comment on above: Cervical dystonia (P rimary Dx); RLS (restless legs syndrome) Start: 11-20-2024 End: 11-20-2024 ambulatory SIS IRBY Not Available Start: 11-11-2024 End: 11-11-2024 Bamboo flowsmelita Bedolla MD Work Phone: [facility] Start: 11-11-2024 End: 11-11-2024 Bambentleyo aislinn Bedolla MD Work Phone: [facility] [...] Start: 10-29-2024 End: 10-29-2024 ambulatory HARMAN SULLIVAN Facility:[facility] Start: 10-22-2024 End: 10-22-2024 ambulatory Filiberto Ying MD Work Phone: [facility] Work Phone: Start: 10-22-2024 End: 10-22-2024 Patient encounter procedure [facility]ib[facility] Ying MD [facility] Work Phone: Start: 09-17-2024 End: 09-17-2024 Emergency department patient visit Filiberto Ying MD Work Phone: [facility] Work Phone: Start: 08-01-2024 End: 08-01-2024 Emergency department patient visit Filiberto Ying MD Work Phone: [facility] Work Phone: Start: 07-30-2024 End: 07-30-2024 ambulatory HARMAN SULLIVAN Facility:[facility] Start: 07-30-2024 End: 07-30-2024 Patient [...] patient visit Filiberto Ying MD Work Phone: [facility] Work Phone: Start: 06-17-2024 End: 06-17-2024 Admission to same day surgery center Filiberto Ying MD Work Phone: [facility] [place] Start: 06-17-2024 End: 06-17-2024 ambulatory Filiberto Ying MD Work Phone: [facility] Work Phone: Start: 06-10-2024 End: 06-10-2024 Departed Referred Filiberto Ying MD Work Phone: [facility]urgical [facility] Work Phone: Start: 06-10-2024 End: 06-10-2024 Patient encounter procedure Filiberto Ying MD Work Phone: [facility] Work Phone: Start: 06-10-2024 End: 06-10-2024 ambulatory Filiberto Ying MD Work Phone: [facility] Work Phone: Start: 02-18-2024 End: 02-18-2024 ambulatory Reuben Bauman MD Facility: [facility] Start: 01-30-2024 End: 01-30-2024 ambulatory HARMAN SULLIVAN Facility:[facility] Start: 01-30-2024 End: 01-30-2024 Patient encounter procedure Harman Sullivan MD Work Phone: Neurology Comment on above: Chronic migraine wit hout aura, with intractable migraine, so stated, with status migrainosus (Primary Dx); Neck pain Start: 01-28-2024 End: 01-28-2024 Patient encounter procedure MD Filiberto Ying Work Phone: [facility] Start: 01-28-2024 End: 01-28-2024 ambulatory MD Filiberto Ying Work Phone: [facility] Work Phone: Start: 11-09-2023 ambulatory [facility] [...] Start: 10-18-2023 Get Medical Advice Robert caraballo APRN.COMMERCIAL REPORTER Work Phone: Neurology Comment on above: Med refill Refill Request Start: 10-11-2023 Telephone encounter Harman fraser MD Work Phone: Neurology Comment on above: Insurance Authorizat ion (Botox) Start: 10-03-2023 ambulatory Robert LANDRYCOMMERCIAL REPORTER Work Phone: Neurology Comment on above: Fmla Start: 09-21-2023 Telephone encounter Harman fraser MD Work Phone: Neurology Comment on above: Request Outside [facility] Records Start: 09-21-2023 End: 09-21-2023 Patient encounter procedure Harman Sullivan MD Work Phone: Neurology Comment on above: Chronic migraine wit hout aura, with intractable migraine, so stated, with status migrainosus (Primary Dx); Neck pain; RLS (restless legs syndrome) Start: 09-15-2023 Refill Robert Giles VERO.COMMERCIAL REPORTER Work Phone: Neurology Comment on above: Refill Request Start: 09-04-2023 End: 09-04-2023 ambulatory Robert Menchaca APRN.COMMERCIAL REPORTER Work Phone: Neurology Comment on above: Cervical dystonia (P rimary Dx) Start: 09-04-2023 End: 09-04-2023 Telemedicine consultation with patient Robert Menchaca APRN.COMMERCIAL REPORTER Work Phone: [facility] Start: 09-03-2023 E-mail encounter fro m caregiver Robert Menchaca APRN.COMMERCIAL REPORTER Work Phone: Neurology Start: 09-03-2023 Patient encounter procedure Robert Menchaca APRN.COMMERCIAL REPORTER Work Phone: Neurology Comment on above: appointment Start: 05-15-2023 End: 05-15-2023 Admission to same day surgery center MD Filiberto Ying Work Phone: [facility] [place] Start: 05-15-2023 End: 05-15-2023 ambulatory MD Filiberto Ying Work Phone: [facility] Work Phone: Start: 05-01-2023 End: 05-01-2023 ambulatory MD Filiberto Ying Work Phone: [facility] Work Phone: Start: 05-01-2023 End: 05-01-2023 Patient encounter procedure MD Filiberto Ying Work Phone: [facility] Work Phone: Start: 04-05-2023 End: 04-05-2023 Admission to same day surgery center MD Filiberto Ying Work Phone: [facility] Start: 04-05-2023 End: 04-05-2023 ambulatory MD Filiberto Ying Work Phone: [facility] Work Phone: Start: 02-19-2023 Telephone encounter Robert Tucker on SMOKE EATER.COMMERCIAL REPORTER Work Phone: Neurology Comment on above: Results ([facility] ) Start: 02-09-2023 Telephone encounter Robert Tucker on SMOKE EATER.COMMERCIAL REPORTER Work Phone: Neurology Comment on above: Results ([facility] ) Start: 02-07-2023 End: 02-07-2023 ambulatory MD Filiberto Ying Work Phone: [facility] Work Phone: Start: 02-07-2023 End: 02-07-2023 Patient encounter procedure MD Filiberto Ying Work Phone: [facility] [place] Work Phone: Start: 01-19-2023 Orders Only Robert Menchaca A PRN.COMMERCIAL REPORTER Work Phone: Neurology Start: 01-17-2023 ambulatory Robert Giles PRN.COMMERCIAL REPORTER Work Phone: Neurology Comment on above: Labs and rx Start: 01-12-2023 End: 01-12-2023 Patient encounter procedure Robert Menchaca SMOKE EATER.COMMERCIAL REPORTER Work Phone: Neurology Comment on above: Cervical dystonia (P rimary Dx); Neck tightness; RLS (restless legs syndrome) Start: 01-08-2023 Chart Update Filiberto Ying Work Phone: [facility] 320 DO Work Phone: Start: 12-28-[address] Soraya Ford acility:[id number] Start: 11-14-2022 ambulatory Soraya Cage Facility:[id number] Start: 11-10-2022 FUV, Provider: Saeed Castellanos, Status: Pen, Time: 8:50 AM Filiberto Ying Work Phone: [facility] Work Phone: Start: 11-10-[address] Saeed Castellanos Facility: Start: 11-02-[address] [facility] Start: 11-02-[address] Saeed Castellanos Facility: Start: 10-23-2022 End: 10-23-2022 ambulatory MD Filiberto Ying Work Phone: [facility] Work Phone: Start: 10-23-2022 End: 10-23-2022 Patient encounter procedure MD Filiberto Ying Work Phone: [facility]Electrodiagnostics Work Phone: Start: 10-23-2022 ambulatory Romero Jones Faci lity:[id number] Start: 10-12-2022 End: 10-12-2022 Patient encounter procedure MD Filiberto Ying Work Phone: [facility] Work Phone: Start: 10-06-[address] FILIBERTO YING . Facili ty:H1 Start: 09-29-2022 EVENT EMORY, Provider : [facility] TECH 1,[id number], Status: Pen, Time: 1:00 PM Filiberto Zoe Franty Work Phone: [facility] 250 DO Work Phone: Start: 09-29-2022 Patient encounter procedure Filibertoxochitl Ying Work Phone: [facility] 250 DO Work Phone: Start: 09-29-[address] Saeed Castellanos Facility: Start: 09-20-2022 Office consultation new/estab patient 60 min Filibertoxochitl Petersy Work Phone: [facility] 250 DO Work Phone: Start: 09-20-[address] Saeed Castellanos Facility: Start: 08-11-2022 End: 08-11-2022 ambulatory Nayely Limon APRN.COMMERCIAL REPORTER Work Phone: Rheumatology Comment on above: Neck pain, chronic ( Primary Dx); Fibromyalgia Start: 08-11-2022 End: 08-11-2022 Telemedicine consultation with patient Nayely Limon APRN.COMMERCIAL REPORTER Work Phone: [facility] Start: 07-28-2022 End: 07-28-2022 Subsequent hospital visit by physician [facility] Radiology Comment on above: Neck pain, chronic [ M54.2, G89.29] Start: 07-28-2022 End: 07-28-2022 Patient encounter procedure Nayely Limon APRN.COMMERCIAL REPORTER Work Phone: Rheumatology Comment on above: Neck pain, chronic ( Primary Dx) Start: 07-06-2022 End: 07-07-[address] CHARISMA COLLZAO . Facility:[facility] Start: 05-04-[address] CHARISMA COLLAZO . Faci lity:[facility]1 Start: 04-06-2022 End: 04-07-[address] CHARISMA COLLAZO . Facility:[facility] Start: 03-02-2022 End: 03-03-2022 ambulatory CASSI VIDAL . Facility:[facility] Start: 02-16-2022 End: 02-17-[address] NAVNEET MONTERO Facility:[facility] Start: 02-16-2022 End: 02-17-[address] CHARISMA COLLAZO . Facility:[facility] Start: 01-19-2022 End: 01-19-2022 Patient encounter procedure MD Filiberto Ying Work Phone: [facility] [place] Start: 01-09-2022 End: 01-09-[address] FABY RAYMOND . Facility:[facility] Start: 01-03-2022 Encounter for genera l adult medical examination without abnormal findings DR FILIBERTO YING . [facility] Start: 12-31-2021 End: 01-01-[address] FILIBERTO YING . Facility:[facility] Start: 12-31-2021 End: 01-01-2022 Encounter for general adult medical examination without abnormal findings DR FILIBERTO YING . Facility:[facility] Start: 11-18-2021 End: 11-18-2021 Patient encounter procedure MD Filiberto Ying Work Phone: [facility] [place] Procedures Date Procedure Procedure Detail Performing Clinician Start: 01-21-2025 Cul bact xcpt urine blood/stool aerobic isol Ban Bedolla MD Work Phone: Start: 01-21-2025 RESULT Ban gonzalez MD Work Phone: Start: 09-17-2024 CT of abdomen and pe lvis without contrast Filiberto Ying MD Work Phone: Start: 09-17-2024 Plain chest X-ray Vell nidhi Ying MD Work Phone: Start: 08-01-2024 Viral nucleic acid assay Filiberto Ying MD Work Phone: Start: 08-01-2024 Plain chest X-ray Vell nidhi Ying MD Work Phone: Start: 08-01-2024 X-ray [...] cervical 4 or 5 views Nayely Limon SMOKE EATER.COMMERCIAL REPORTER Work Phone: Start: 07-28-2022 Radiologic exam chest 2 views Nayely Limon APRN.COMMERCIAL REPORTER Work Phone: Start: 11-18-2021 MRI of head MD Filiberto Ying Work Phone: Cholecystectomy Filiberto Zoe Peters y Work Phone: Esophagogastroduodenoscopy D ouglas M Stepan Work Phone: Hysterectomy Filiberto Zoe Petersy Work Phone: Laparoscopy Filiberto Zoe Ying Work Phone: Tonsillectomy and adenoidectomy Filiberto Zoe Petersy Work Phone: NEGATED: Highlighted row has not occurred! Total colonoscopy Filiberto Zoe Franty Work Phone: Plan of Treatment Date Care Activity Detail Author Start: 01-03-2030 Urine microalbumin profile [facility] Start: 04-14-2025 End: 04-14-2025 Patient encounter procedure [facility] Start: 03-30-2025 End: 03-30-2025 Patient encounter procedure 03/30/2025 8:00 AM EST Office Visit [facility] [address] [place] [address] Sis Irby MD [address] [facility] [address] [address] [facility] Start: 02-18-2025 End: 02-18-2025 Patient encounter procedure 02/18/2025 11:30 AM EDT Office Visit [facility] [address] [place] [address] Analilia Adorno MD [address] [place] [address] [facility] Start: 02-06-2025 End: 02-06-2025 Patient encounter procedure Neurology Comment on above: botox Start: 01-28-2025 End: 01-28-2025 Patient encounter procedure [facility] Comment on above: Arrived Start: 01-27-2025 End: 01-27-2025 Patient encounter procedure [facility] Start: 01-21-2025 End: 01-21-2025 Patient encounter procedure [facility] Comment on above: Arrived Start: 01-19-2025 Influenza vaccination Influenz a Vaccine (Season Ended) [facility] Start: 11-27-2024 End: 11-27-2024 Professional / ancillary services management 11/27/2024 7:15 AM EDT Ancillary Procedure [facility] [address] [place] [address] [facility] Start: 11-25-2024 End: 11-25-2024 Patient encounter procedure [facility] Comment on above: Arrived Start: 11-20-2024 End: 11-20-2025 MR Cervical spine WO contrast MR cervical spine wo contrast Imaging Routine Cervical dystonia RLS (restless legs syndrome) Expected: 11/20/2024, Expires: 11/20/2025 [facility] Work Phone: Comment on above: Expected: 11/20/2024 , Expires: 11/20/2025 Start: 11-20-2024 End: 11-20-2024 Patient encounter procedure [facility] NEUR Comment on above: Arrived Start: 11-11-2024 End: 11-11-2024 Patient encounter procedure 11/11/2024 11:35 AM EDT Office Visit [facility] [address] [place] [address] Ban Bedolla MD [address] [place] [address] Arrived [facility] Comment on above: Arrived Start: 10-29-2024 End: 10-29-2024 Patient encounter procedure 10/29/2024 4:30 PM EDT Office Visit Neurology [address] [place] [address] [place] [address] Harman Sullivan MD [address] [facility] [address] [place], [place] [phone] F/u hold for botox Neurology Comment on above: F/u hold for botox Start: 07-30-2024 End: 07-30-2024 Patient encounter procedure 07/30/2024 4:30 PM EDT Office Visit Neurology [address] [facility] [address] Harman Sullivan MD [address] [facility] [address] [place], [place] [id number] Botox Neurology Comment on above: Botox Start: 07-29-2024 End: 07-29-2024 Patient encounter procedure 07/29/2024 8:35 AM EDT Office Visit [facility] [address] [place] [phone] Nae Velez, [employer]KE [employer]CIAL [employer]TER [address] [place] [address] [facility] Start: 06-17-2024 End: 06-17-2024 [facility] Start: 04-30-2024 End: 04-30-2024 Patient encounter procedure 04/30/2024 8:30 AM EST Office Visit Neurology [address] [facility] [address] Harman Sullivan MD [address] [facility] [address] [place], [place] [phone] Botox Neurology Comment on above: Botox Start: 01-30-2024 End: 01-30-2024 Patient encounter procedure 01/30/2024 2:00 PM EDT Office Visit Neurology [address] [facility] [address] Harman Sullivan MD [address] [facility] [address] [place], [place] [phone] Botox Neurology Comment on above: Botox Start: 01-20-2024 Covid-19 Vaccine () Covid-19 Vaccine () [facility] Start: 01-20-2024 Covid-19 Vaccine () Covid-19 Vaccine () [facility] Start: 01-20-[address] [facility] Start: 11-06-2023 End: 11-06-2023 Patient encounter procedure 11/06/2023 10:30 AM EDT Office Visit Neurology [address] [place] [phone] Harman Sullivan MD [address] [facility] [address] [place], [place] [phone] Three week follow up Neurology Comment on above: Three week follow up Start: 10-31-2023 End: 10-31-2023 Patient encounter procedure 10/31/2023 10:30 AM EDT Office Visit Neurology [address] [facility] [phone] Harman Sullivan MD [address] [facility] [address] [place], [place] [phone] Botox auth approved Neurology Comment on above: Botox auth approved Start: 09-21-2023 End: 09-21-2023 Patient encounter procedure 09/21/2023 8:30 AM EDT Office Visit Neurology [address] [facility] [address] Harman Sullivan MD [address] [facility] [address] [place], [place] [phone] Cervical dystonia [G24.3] Neurology Comment on above: Cervical dystonia [G 24.3] Start: 05-21-2023 Behavioral Health Screening Behavioral Health Screening [facility] Start: 05-15-2023 [facility] Start: 05-15-2023 [facility] Start: 04-05-2023 [facility] Start: 03-16-2023 FUV, Provider: Isrrael,Soraya, Status: Pen, Time: 1:00 PM FUV, Provider: Soraya Cage, Status: Pen, Time: 1:00 PM -[facility] [address] DO Work Phone: Start: 01-19-2023 Covid-19 Vaccine ( season) Covid-19 Vaccine () [facility] Start: 01-19-2023 Influenza vaccination [facility] Start: 01-12-2023 End: 03-14-2023 CBC panel - Blood by Automated count CBC Lab Routine RLS (restless legs syndrome) Expected: 01/12/2023, Expires: 03/14/[address] [facility] Work Phone: Comment on above: Expected: 01/12/2023 , Expires: 03/14/2023 Start: 01-12-2023 End: 03-14-2023 Cobalamin (Vitamin B12) [Mass/volume] in Serum or Plasma VITAMIN B12 BLOOD Lab Routine RLS (restless legs syndrome) Expected: 01/12/2023, Expires: 03/14/[address] [facility] Work Phone: Comment on above: Expected: 01/12/2023 , Expires: 03/14/2023 Start: 01-12-2023 End: 03-14-2023 Comprehensive metabolic 2000 panel - Serum or Plasma COMP METABOLIC PANEL Lab Routine RLS (restless legs syndrome) Expected: 01/12/2023, Expires: 03/14/[address] [facility] Work Phone: Comment on above: Expected: 01/12/2023 , Expires: 03/14/2023 Start: 01-12-2023 End: 03-14-2023 Ferritin [Mass/volume] in Serum or Plasma FERRITIN BLD Lab Routine RLS (restless legs syndrome) Expected: 01/12/2023, Expires: 03/14/[address] [facility] Work Phone: Comment on above: Expected: 01/12/2023 , Expires: 03/14/2023 Start: 01-12-2023 End: 03-14-2023 Iron and Iron binding capacity panel - Serum or Plasma IRON + TIBC Lab Routine RLS (restless legs syndrome) Expected: 01/12/2023, Expires: 03/14/[address] [facility] Work Phone: Comment on above: Expected: 01/12/2023 , Expires: 03/14/2023 Start: 11-14-2022 NPVRFRL, Provider: Soraya Cage, Status: Pen, Time: 4:20 PM NPVRFRL, Provider: Soraya Cage, Status: Pen, Time: 4:20 PM [facility] Work Phone: Start: 11-10-2022 FUV, Provider: Saeed Castellanos, Status: Pen, Time: 8:50 AM FUV, Provider: Saeed Castellanos, Status: Pen, Time: 8:50 AM -[facility] 250 DO Work Phone: Start: 10-23-2022 [facility], Provider: Romero Jones, Status: Pen, Time: 2:00 PM SUR[facility], Provider: Romero Jones, Status: Pen, Time: 2:00 PM -[facility] 250 DO Work Phone: Start: 09-29-2022 [facility], Provider : [employer] TECH 1,[id number], Status: Pen, Time: 1:00 PM [facility], Provider: [employer] TECH 1,[id number], Status: Pen, Time: 1:00 PM [facility] 250 DO Work Phone: Start: 05-21-2022 DEPRESSION ASSESSMENT DEPRESSION ASS ESSMENT [facility] Start: 01-19-2022 Influenza vaccination INFLUENZA (#1) [facility] Start: 2017 HPV TESTING HPV TESTING [facility] Start: 2017 Screening for malign ant neoplasm of cervix HPV Testing [facility] Start: 01-07-2008 PAP TESTING PAP TESTING [facility] Start: 01-07-2008 Screening for malign ant neoplasm of cervix [facility] Start: 2006 Hepatitis B Vaccine (1 of 3 - 19+ 3-dose series) Hepatitis B Vaccine (1 of 3 - 19+ 3-dose series) [facility] Start: 2005 Anxiety Screening Anxiety Screening [facility] Start: 2005 Depression Screening Depression Scre ening [facility] Start: 2005 HEPATITIS C SCREENING HEPATITIS C [facility] Start: 2005 Hepatitis C screening Hepatitis C [facility] Start: 2005 HIV SCREENING HIV SCREENING [facility] Start: 2005 HIV screening HIV Screening [facility] Start: 1987 COVID-19 VACCINE (#1) COVID-19 VACCI NE (#1) [facility] Start: 1987 HEPATITIS B (1 of 3 - 3-dose series) HEPATITIS B (1 of 3 - 3-dose series) [facility] Start: 1987 Hepatitis B Vaccine (1 of 3 - 3-dose series) Hepatitis B Vaccine (1 of 3 - 3-dose series) [facility] Aerobic culture Aerobic culture Microbiology Timed Cellulitis of left thumb Release Upon Ordering for 1 Occurrences starting 01/21/2025 [facility] Work Phone: Comment on above: Release Upon Orderin g for 1 Occurrences starting 01/21/2025 Patient Education [facility] Work Phone: Patient referral [facility] Work Phone: [facility] Immunizations Immunization Date Immunization Notes Care Provider Alina treviño 01-04-2020 tetanus toxoid, redu hawa diphtheria toxoid, and acellular pertussis vaccine, adsorbed Xr A21 [facility] 07-27-2016 tetanus toxoid, redu hawa diphtheria toxoid, and acellular pertussis vaccine, adsorbed Xr A21 [facility] Payers Date Payer Category Payer Managed Care HMO (unspecified) [id number] 2022 Private Health Insurance [id number] 2022 Private Health Insurance [id number] 2022 Medicaid [place] [employer] [place] [employer] [id number] 2022-Present [phone] [address] [place] [address] Medicaid [id number] 1987 Unknown [id number] 2.16.840.1.497617.3.579.2. 593 1987 Unknown [id number] 2.16.840.1.783259.3.579.2. 593 1987 Unknown [id number] 2.16.840.1.352791.3.579.2. 593 1987 Unknown [id number] 2.16.840.1.277898.3.579.2. 593 1987 Unknown [id number] 2.16.840.1.710259.3.579.2. 593 1987 Unknown [id number] 2.16.840.1.890084.3.579.2. 593 1987 Unknown [id number] 2.16.840.1.572066.3.579.2. 593 1987 Unknown [id number] 2.16.840.1.432603.3.579.2. 593 1987 Unknown [id number] 2.16.840.1.356942.3.579.2. 593 1987 Unknown [id number] 2.16.840.1.647328.3.579.2. 1068 1987 Unknown [id number] 2.16.840.1.244934.3.579.2. 356 1987 Unknown [id number] 2.16.840.1.776058.3.579.2. 356 1987 Unknown [id number] 2.16.840.1.275104.3.579.2. 356 1987 Unknown [id number] 2.16.840.1.464665.3.579.2. 356 1987 Unknown [id number] 2.16.840.1.776020.3.579.2. 356 1987 Unknown [id number] 2.16.840.1.859953.3.579.2. 356 1987 Unknown [id number] 2.16.840.1.830976.3.579.2. 356 1987 Unknown [id number] 2.16.840.1.150873.3.579.2. 196 1987 Unknown [id number] 2.16.840.1.153253.3.579.2. 1259 1987 Unknown [id number] 2.16.840.1.418697.3.579.2. 9 1987 Unknown [id number] 2.16.840.1.038570.3.579.2. 1259 1987 Unknown [id number] 2.16.840.1.730210.3.579.2. 9 1987 Unknown [id number] 2.16.840.1.192862.3.579.2. 1259 1987 Unknown [id number] 2.16.840.1.192460.3.579.2. 1259 1987 Unknown [id number] 2.16.840.1.141054.3.579.2. 1259 1987 Unknown [id number] 2.16.840.1.534901.3.579.2. 1259 1959 Medicaid [id number] Medicaid [place] Ad[employer]age [id number] Self-pay Self Pay [id number] Unknown [place] BC/BS [id number] Unknown [id number] Unknown HCAP/HFA/FAP Active [id number] Social History Date Type Detail Facility Start: 12-24-2020 End: 02-06-2023 Tobacco smoking status NHIS Never smoked tobacco (finding) [facility] Start: 1985 Sex Assigned At Female F [facility] Start: 06-13-2012 End: 02-06-2023 Tobacco use and exposure Smokeless tobacco non-user [facility] Work Phone: Start: 07-28-2022 End: 10-29-2024 Alcohol intake Current non-drinker of alcohol (finding) [facility] Start: 01-12-2023 End: 01-21-2025 No caffeine use No caffeine use [facility] Start: 01-12-2023 End: 01-21-2025 Tobacco use panel [facility] Adult Depression Screening Assessment 2 [facility] Start: 07-28-2022 Gender identity Identifies as female gender (finding) [facility] Start: 07-28-2022 Sexual orientation Heterosexual (fin ding) [facility] Start: 06-11-2024 End: 10-22-2024 Sex Female (finding) [facility] Start: 06-23-2024 End: 01-28-2025 Alcoholic beverage intake Lifetime non-drinker (finding) [facility] Start: 01-08-2023 Alcohol Comment Caffeine: none [facility] Start: 1985 Sex assigned at Not on file [facility] NEGATED: Highlighted row [facility] Goals Date Patient Goal Desired Activity /State Clinical Notes 02-16-2022 to 01-28-2025 Ban Bedolla MD - 01/28/2025 11:15 AM Ramon Bedolla MD - 01/21/2025 2:00 PM Param Irby MD - 01/21/2025 8:00 AM Ramon Bedolla MD - 11/25/2024 11:25 AM EDTPatient Instructions Note Date & Type Note Facility 01-28-2025 History of Present illness Narrative Follow up Diagnosis: Cellulitis of left nail [...] as it can treat both conditions. Start [id number] mg BID. Recommend patient take medication with food but not dairy, sit up for 30 min after taking medication, avoid on this medication, wear sunscreen as this medication increases sun sensitivity, and [...] weeks, follow up documented in this encounter [facility] 01-21-2025 History of Present illness Narrative Images from [...] risk of diarrhea with this medication, reviewed to take a probiotic along with the medication and notify office and stop treatment if progressively worsening diarrhea occurs. Start acetic acid soaks, handout given. Bacterial culture today. Plan to follow up in 1 week. If symptoms worsen despite treatment patient instructed to follow up at Urgent care or ER for I&D. Specimen 1 - Aerobic culture Account Name: [place] Negron NPI: Ban Bedolla [id number] Cellulitis of left thumb L03.012 Related Medications clindamycin (Cleocin) 300 MG capsule Take 1 capsule by mouth bid x 7 days Next Visit: 1 week documented in this encounter [facility] 01-21-2025 History of Present illness Narrative CHIEF COMPLAINT REASON FOR VISIT: Patient is here to follow up for migraines, neck stiffness, & restless leg syndrome. Qulipta and Zavzpret per last appt Mirapex for RLS Medications tried: cyclobenzaprine, diazepam, tizanidine, Ambien, Topamax, trokendi, propranolol, nurtec, magnesium, pregabalin, venlafaxine, cetirizine, metoprolol, fludrocortisone, norco, diclofenac, ezetimibe, doxepin, trazodone, prednisone, dexamethasone, ajovy, tylenol, rizatriptan, eletriptan, motrin, sumatriptan (made her feel faint), cyproheptadine, Seroquel, amitriptyline, Pamelor, percocet, Vicodin, Nubain injections, Toradol, zonegran, Zofran for nausea, Neurontin, ibuprofen, botox injections Subjective Brittanie Garcia is a 40 y.o. female who presents [...] headaches and sleeps only 2 to 4 non-consecutive hours per night, frequently changing positions due to discomfort. Flexeril and tizanidine are alternated for pain management. Nurtec was tried without success. For severe headaches, Valium, diclofenac, and [place] are used. If headaches become too severe, [...] Two doses of Mirapex are taken at bedtime, causing significant tiredness. Trazodone has not significantly improved [...] Oral As needed Diclofenac Oral As needed [place] Oral As needed PREVIOUS MEDS: Qulipta Oral [...] in all four extremities, including at least matlab developer, finger abductors, biceps, triceps, deltoid, toe flexors [...] from Tylenol and Motrin, and weekly severe migraines. Previous treatments including Qulipta and Botox have been ineffective for daily headaches but somewhat helpful for spasms. A trial of Vyepti infusions every 3 months is recommended to potentially reduce the frequency of both daily headaches and migraines. Samples of a new combination pill will be provided for severe migraines to assess its efficacy in conjunction with her current regimen of Valium, diclofenac, and [place]. 2. Sleep disturbances. She experiences significant sleep disturbances, sleeping only 2-4 non-consecutive hours per night, often waking up due to neck pain and discomfort. The dosage of Mirapex will be increased to 3 mg at bedtime to improve sleep quality. The prescription will be sent to [facility] in [place]. 3. RLS and this is worse and [...] treatment. This clinical note was created utilizing [employer] documentation system. All information has been thoroughly reviewed, corrected as necessary, and authenticated by the provider to ensure accuracy and completeness. On occasion, [employer] ambient documentation system erroneously drops words or replaces a spoken word with a similar sounding word. Please notify with any questions or concerns regarding this clinical note. documented in this encounter [facility] 11-25-2024 History of Present illness Narrative Images [...] Visit: 2 months documented in this encounter [facility] 11-20-2024 History of Present illness Narrative Images from the original note were not included. Jermain Garcia is a 39 y.o. female who [...] therapy, muscle relaxers, and Botox injections at [facility] in [place]. The Botox injections have been effective in managing her spasms but have not improved her mobility. Over the past 6 months, her condition has deteriorated, leading her to consider discontinuing the Botox treatment. She has been under the care of a nurse practitioner at [facility] for routine neurological check-ups for over a [...] various medications for her migraines, including Valium, [place], and diclofenac, which have provided some relief. 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 Sleep: She reports poor sleep quality, often tossing and turning due to pain. FAMILY HISTORY - Negative for dystonia or stiff neck in family history. MEDICATIONS CURRENT MEDS: Botox Every 90 days Mirapex 1 mg Oral Twice daily Tylenol Oral Motrin Oral Tizanidine Oral Zanaflex Oral PREVIOUS MEDS: Valium Oral [place] Oral Diclofenac Oral Nurtec Ubrelvy Aimovig Imitrex [...] in all four extremities, including at least matlab developer, finger abductors, biceps, triceps, deltoid, toe flexors [...] 7. This clinical note was created utilizing [employer] documentation system. All information has been thoroughly reviewed, corrected as necessary, and authenticated by the provider to ensure accuracy and completeness. On occasion, [employer] documentation system erroneously drops words or replaces a spoken word with a similar sounding word. Please notify with any questions or concerns regarding this clinical note. Follow-up The patient will follow up in 8 weeks. documented in this encounter [facility] 11-11-2024 History of Present illness Narrative Images [...] Visit: 2 weeks documented in this encounter [facility] 10-29-2024 Note HNO ID: [id number] Author: HARMAN SULLIVAN MD Service: ? Author [...] brought in by patient? No Lot #: [id number] Exp: 09/2026 Dilution: 5 units/0.1 ml (100 [...] Optional follow pain # units L R Project Coordinator 10 units divided in 2 sites XXXXXXX [...] in Treatment Plan? No Harman Sullivan MD [facility] 10-29-2024 History of Present illness Narrative BOTOX [...] brought in by patient? No Lot #: [id number] Exp: 09/2026 Dilution: 5 units/0.1 ml (100 [...] Optional follow pain # units L R Project Coordinator 10 units divided in 2 sites XXXXXXX [...] Harman Sullivan MD documented in this encounter [facility] 09-17-2024 Radiology Diagnostic study note [facility] [place] [address] [place] [address] CT Scan Report Signed Patient: Brittanie Garcia MR# : [id number] : 1985 Acct:[id number] Age/Sex: 39 / F ADM Date: 5 Loc: ER Room: Type: [facility] ER Attending Dr: Copies to: DO [...] Jr., D.O. 09/17/2024 8:21 AM Dictation Location: [place] [address] Transcribed By: JADEN 09/17/24820 Dictated By: Prince Heath Jr, DO 09/17/2418 Signed By: 09/17/2421 [facility] 09-17-2024 Hospital Discharge instructions Additional Instructions Your CAT scan showed that you have kidney stones, but they are not stuck anywhere and so they are not causing your pain today. Take Motrin Tylenol as needed for pain. Take Keflex as prescribed for UTI which may be causing your pain. Follow-up with PCP for recheck next 5 to 7 days. [facility] Work Phone: 07-30-2024 Note HNO ID: [id number] Author: HARMAN SULLIVAN MD Service: ? Author [...] brought in by patient? No Lot #: [id number] Exp: 09/2026 Dilution: 5 units/0.1 ml (100 [...] Optional follow pain # units L R Project Coordinator 10 units divided in 2 sites XXXXXXX [...] in Treatment Plan? No Harman Sullivan MD [facility] 07-30-2024 History of Present illness Narrative BOTOX [...] brought in by patient? No Lot #: [id number] Exp: 09/2026 Dilution: 5 units/0.1 ml (100 [...] Optional follow pain # units L R Project Coordinator 10 units divided in 2 sites XXXXXXX [...] Harman Sullivan MD documented in this encounter [facility] 06-23-2024 History of Present illness Narrative Images [...] ADH in both specimens. I consulted the [facility] physician forum concerning the possibility of Tamoxifen and the response was that ADH confined to a fibroadenoma does not pose the same risk as ADH in a breast mass and no treatment is necessary. I'll see her PRN documented in this encounter [facility] 01-30-2024 Note HNO ID: [id number] Author: HARMAN SULLIVAN MD Service: ? Author [...] brought in by patient? No Lot #: [id number] Exp: 03/2026 Dilution: 5 units/0.1 ml (100 [...] Optional follow pain # units L R Project Coordinator 10 units divided in 2 sites XXXXXXX [...] in Treatment Plan? No Harman Sullivan MD [facility] 01-30-2024 History of Present illness Narrative BOTOX [...] brought in by patient? No Lot #: [id number] Exp: 03/2026 Dilution: 5 units/0.1 ml (100 [...] Optional follow pain # units L R Project Coordinator 10 units divided in 2 sites XXXXXXX [...] Harman Sullivan MD documented in this encounter [facility] 11-01-2023 Telephone encounter Note We may need to start reserving some slots for Botox if I'm booking out more than 3 months. Is that something escalating to admin can accomplish? Maybe having like 3 follow up slots a week for botox that revert to regular if not booked a few weeks before that date. [facility] 11-01-2023 Miscellaneous Notes We may need to [...] 29 and after. documented in this encounter [facility] 10-31-2023 History of Present illness Narrative BOTOX [...] BOTOX brought in by patient? No Lot #:[id number] Exp: 10/2025 Dilution: 5 units/0.1 ml (100 [...] Optional follow pain # units L R Project Coordinator 10 units divided in 2 sites XXXXXXX [...] Harman Sullivan MD documented in this encounter [facility] 10-31-2023 Telephone encounter Note Placed at desk for review. [facility] 10-31-2023 Miscellaneous Notes Placed at desk for review. Patient [facility] paperwork for Dr. Sullivan to fill out. Forms placed in providers mailbox. documented in this encounter [facility] 10-31-2023 Telephone encounter Note Patient needs a botox appointment slot opened anytime January 29 and after. [facility] 10-31-2023 Telephone encounter Note [facility] for Dr. Sullivan to fill out. Forms placed in providers mailbox. [facility] 10-19-2023 Telephone encounter Note Per Epic referral, Botox is approved. 10/16/23 to 10/14/24 200 units every 12 weeks Called patient, and she is agreeable to using the SunOctober 30 slot to get her Botox in [place]. Per Dr. Sullivan, she does not need to then also keep her November 05 appt. [facility] 10-19-2023 Miscellaneous Notes Per Epic referral, Botox is approved. 10/16/23 to 10/14/24 200 units every 12 weeks Called patient, and she is agreeable to using the SunOctober 30 slot to get her Botox in [place]. Per Dr. Sullivan, she does not need to then also keep her November 05 appt. Prior Authorization PENDING Medication/ Treatment: BOTOX Submitted Via Epic Referral Attempted to submit via phone to expedite request, but plan does not allow this. documented in this encounter [facility] 10-18-2023 Miscellaneous Notes Images from the original note were not included. Robert Menchaca APRN.COMMERCIAL REPORTER You6 minutes ago (8:35 AM) I can for this time, but Dr. Hernandez moving forward as he is managing her neck tightness. PRATIBHA Mccullough, RN, BA documented in this encounter [facility] 10-18-2023 Telephone encounter Note Images from the original note were not included. Robert Menchaca APRN.COMMERCIAL REPORTER You6 minutes ago (8:35 AM) I can for this time, but Dr. Hernandez moving forward as he is managing her neck tightness. PRATIBHA Mccullough, RN, BA [facility] Work Phone: 10-11-2023 Telephone encounter Note Prior Authorization PENDING Medication/ Treatment: BOTOX Submitted Via Epic Referral Attempted to submit via phone to expedite request, but plan does not allow this. [facility] 10-03-2023 Telephone encounter Note Images from the original note were not included. Robert Menchaca APRN.COMMERCIAL REPORTER You6 minutes ago (3:03 PM) As she is now working with movement disorder for this concern, I would defer this to their team. PRATIBHA Mccullough, RN, BA [facility] Work Phone: 10-03-2023 Miscellaneous Notes Images from the original note were not included. Robert Menchaca APRN.COMMERCIAL REPORTER You6 minutes ago (3:03 PM) As she is now working with movement disorder for this concern, I would defer this to their team. PRATIBHA Mccullough, RN, BA documented in this encounter [facility] 09-21-2023 Instructions Harman Sullivan MD - 09/21/2023 [...] can increase further documented in this encounter [facility] 09-21-2023 Telephone encounter Note Requested image transfer from [facility] for most recent head/ neck imaging. [facility] 09-21-2023 History of Present illness Narrative NEW [...] normal Reviewed referral records from Robert Menchaca [facility] Assessment/Plan Assessment & Plan: Brittanie Garcia is a 38 year old right-handed female with a history of chronic migraine, neck pain previously diagnosed as cervical dystonia, and RLS who presents to [facility]. Her examination demonstrates normal head position [...] next month for Botox. Harman Sullivan MD [facility] Neurology documented in this encounter [facility] 09-21-2023 Miscellaneous Notes Requested image transfer from [facility] for most recent head/ neck imaging. documented in this encounter [facility] 09-13-2023 Telephone encounter Note Images from the original note were not included. Robert Menchaca APRN.ZULMA You 58 minutes ago (1:58 PM) Keep the appointment until she sees Dr. Sullivan on September 20. PRATIBHA Mccullough, RN, BA [facility] Work Phone: 09-13-2023 Miscellaneous Notes Images from the original note were not included. Robert Menchaca APRN.ZULMA Bailey 58 minutes ago (1:58 PM) Keep the appointment until she sees Dr. Sullivan on September 20. PRATIBHA Mccullough, RN, BA documented in this encounter [facility] 04-16-2024 History of Present illness Narrative Brittanie Garcia is a 38 year old female. Patient presents with: Follow Up Today I had the opportunity to have a virtual visit with Brittanie Garcia I have communicated my name and active licensure. The patient's identity and physical location were verified at the time of this visit. Either the patient or their legal termite control service representative has been informed of the [...] seeing the movement disorder clinic here at [facility] for an opinion about her cervical [...] which included preparing to see the patient, dfgn-ju-[id number] patient care, completing clinical documentation, obtaining and/or reviewing separately obtained history, and counseling and educating the patient/family/caregiver. There is no problem list on file for this patient. No orders found for this visit on 09/04/23. Robert Menchaca MSN, SMOKE EATER, TOP EXECUTIVE-C documented in this encounter [facility] 02-19-2023 Miscellaneous Notes Images from the original note were not included. Robert Menchaca APRN.COMMERCIAL REPORTER You 1 minute ago (12:27 PM) Thank you. This is a normal value. PRATIBHA Louis, RN, BA Images from the original note were not included. Evonne GAMBOA BSN, RN, BA Scanned in medical records from [facility] for review documented in this encounter [facility] 02-09-2023 Miscellaneous Notes Images from the original note were not included. Robert Menchaca APRN.CNP You 2 minutes ago (10:23 AM) Reviewed. PRATIBHA Louis, RN, BA Scanneed in medical records from [facility] for review documented in this encounter [facility] 01-19-2023 Miscellaneous Notes Images from the original note were not included. Robert Menchaca, LONNY.COMMERCIAL REPORTER You 21 minutes ago (8:34 AM) I sent cyclobenzaprine (Flexeril) 5 mg at bedtime as needed PRATIBHA Mccullough, RN, BA documented in this encounter [facility] 01-12-2023 History of Present illness Narrative Brittanie [...] Most likely receiving 65 units between procerus, hatch boss, frontalis, and temporalis muscles. Only receiving 90 [...] Tizanidine Methocarbamol Metaxalone Carisoprodol She does have [place] prescribed for the neck pain. 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 Finger extensor 5/5. Finger flexor 5/5. Pronation [...] clonus of ankles. Coordination: Finger-to- nose-finger and gnjg-jl-efef intact bilaterally. No ataxia of arms. No [...] seeing the movement disorder clinic here at [facility] for an opinion about her cervical [...] which included preparing to see the patient, baqr-mv-fuvy patient care, completing clinical documentation, obtaining and/or reviewing separately obtained history, performing a medically appropriate examination, counseling and educating the patient/family/caregiver, and ordering medications, tests, or procedures. There is no problem list on file for this patient. Office Visit on 01/12/23 CBC FERRITIN BLD IRON + TIBC VITAMIN B12 BLOOD COMP METABOLIC PANEL CONSULT TO NEUROLOGY Robert SLOAN, SMOKE EATER, TOP EXECUTIVE-C 1. The nursing staff and medical assistants [...] your PCP/referring physician documented in this encounter [facility] 08-11-2022 Instructions Nayely Limon APRN.CNP - 08/11/2022 10:44 AM EDT Please send MRI result to us. Placed a consult for neuromuscular. Please call [phone] for appointments. I would suggest to bring your MRI (CD) to this appointment. Placed a consult for functional medicine. Please call [phone] for appointments. Follow up as needed documented in this encounter [facility] 08-11-2022 History of Present illness Narrative Images from the original note were not included. Rheumatology FOLLOW UP VISIT Date of Service: 08/11/2022 Patient: Brittanie Garcia Medical Record: [id number] Primary Care Physician: Filiberto Ying MD Last Rheumatology visit: 07/28/2022 (with Nayely Limon) I have communicated my name and active licensure. The patient's identity and physical location were verified at the time of this visit. 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 Started Seeing pain management since April for headache and neck pain. She has [place] takes once a week. Hx of restless [...] Clinical Fibromyalgia Diagnostic Criteria questionnaire Questionnaire scores: [place] sleepiness scale: 15 (Normal < 10) MDQ (mood disorder questionnaire): 6 (Normal < 7) PHQ (patient health questionnaire): depression 10 (Normal < 5), anxiety 9 (Normal < 5) Fibromyalgia evaluation: Wide spread pain scale (WPI) 7, symptom severity (SS) 9 The patient meets the 2016 ACR ([employer]) revised criteria for fibromyalgia [...] an optimal response to treatment. Nayely Limon APRN.COMMERCIAL REPORTER Return if symptoms worsen or fail to [...] Time: 8:44 AM documented in this encounter [facility] 07-28-2022 Instructions Nayely Limon APRN.CNP - 07/28/2022 1:58 PM EST Obtain lab and XR today Follow up in 10-14 days documented in this encounter [facility] 07-28-2022 History of Present illness Narrative Images from the original note were not included. Rheumatology CONSULTATION Date of Service: 07/28/2022 Patient: Brittanie Garcia Medical Record: [id number] Primary Care Physician: Filiberto Ying MD, MD Last Rheumatology visit: 07/28/2022 (with Nayely Limon) Referring Provider: Kenna Sheehan [address] [place] [id number] Brittanie Garcia is here today at request of Kenna Sheehan PA-C specifically for consultation of my opinion in regards to the chief complaint listed below. 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 Started Seeing pain management since April for headache and neck pain. She has [place] takes once a week. Hx of restless [...] Take 1 mg by mouth once daily. Ebrimfnf-Zj-Kta-Fe-FA (P-D CARTER PLUS) Tab Take 1 tablet [...] - XR CHEST 2V FRONTAL/LAT Nayely Limon APRN.COMMERCIAL REPORTER Return in about 10 days (around 08/07/2022). I spent a total of 75 minutes on the date of the service which included preparing to see the patient, odtq-bv-zpas patient care, completing clinical documentation, obtaining and/or reviewing separately obtained history, performing a medically appropriate examination, counseling and educating the patient/family/caregiver, and ordering medications, tests, or procedures. Medical Decision Making: Problems: Low: Stable chronic illness Data: Unique test(s) ordered: 3+ Assessment requiring an independent historian(s) Risk: Moderate: Moderate risk from testing/treatment Medical Decision Making Level: 4 - Moderate ___ Nayely Limon APRN.CNP Rheumatology Date: July 26, 2022 Time: 2:07 PM documented in this encounter [facility] 07-06-2022 Note CONSULTATION CONSULTATION DATE: 07/06/2022 [...] no difference. She was also started on [place] 5/325 daily p.r.n., which she says is helpful. We obtained a cervical x-ray back in January, which shows very minimal pathology between C2 and C3 discs. At this time, procedures are not indicated. Medications includes [place] 5/325 daily, baclofen 10 mg b.i.d., Ambien [...] time, our clinic will just maintain her [place] 5/325 daily p.r.n. She will continue for treatments with [facility]. I did recommend, however, to continue with self massage and to trial home cervical traction. We will see the patient in three months' time to maintain her medications and patient is in agreement. [facility] 04-06-2022 Note CONSULTATION PAIN MANAGEMENT CONSULTATION [...] stated that today she has seen an olive knocker due to having lock jaw episodes. 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 She describes her headaches [...] as she agrees to this plan. [facility] 03-02-2022 Note CONSULTATION CONSULTATION DATE: 03/02/2022 [...] Activities such as pushing, pulling, lying down, manager mechanical maintenance hours and housework aggravate her pain. The [...] and all questions are answered today. [facility] 02-16-2022 Note CONSULTATION CONSULTATION DATE: 02/16/2022 [...] worsened at that time. 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 [facility] Chief complaint Narrative - Reported BRITTANIE [...] she has no rebound tachycardia.Recommendations, obtain [facility] monitoring, tilt table test, refer to either EP or syncope clinic, I can follow-up on a as needed basis, as there is no interventional necessity at this time [facility] [address] DO Work Phone: Chief complaint Narrative [...] Notably she has no rebound tachycardia.Recommendations, obtain [employer] [facility] [employer] monitoring, tilt table test, refer to either EP or syncope clinic, I can follow-up on a as needed basis, as there is no interventional necessity at this time [facility] Work Phone: Chief complaint Narrative - [...] Notably she has no rebound tachycardia.Recommendations, obtain [employer] monitoring, tilt table test, refer to either EP or syncope clinic, I can follow-up on a as needed basis, as there is no interventional necessity at this time [facility] [address] DO Work Phone: Chief complaint Narrative [...] has no rebound tachycardia.Recommendations, obtain [facility] monitoring, tilt table test, refer to either EP or syncope clinic, I can follow-up on a as needed basis, as there is no interventional necessity at this time [facility] Work Phone: Evaluation note No assessment inform ation available [facility] Work Phone: Evaluation note Diagnosis Neck pain, chronic Cervicalgia [facility] Neck pain, chronic- Primary Cervicalgia [facility] Diagnosis Neck pain, chronic- Primary Cervicalgia Fibromyalgia Mylagia and myositis, unspecified [facility] Diagnosis Cervical dystonia- Primary Spasmodic torticollis Neck tightness Unspecified musculoskeletal disorders and symptoms referable to neck RLS (restless legs syndrome) Restless legs syndrome (RLS) [facility] Diagnosis Onset Date Resolution Status Left breast mass acute [facility] Work Phone: Evaluation note* Diagnosis Cervical dystonia- Primary Spasmodic torticollis [facility] Diagnosis Chronic migraine without aura, with intractable migraine, so stated, with status migrainosus- Primary Neck pain Cervicalgia RLS (restless legs syndrome) Restless legs syndrome (RLS) [facility] Diagnosis Chronic migraine without aura, with intractable migraine, so stated, with status migrainosus- Primary Neck pain Cervicalgia [facility] Diagnosis Chronic migraine without aura, with intractable migraine, so stated, with status migrainosus- Primary Neck pain Cervicalgia [facility] Diagnosis Fibroadenoma of breast, right- Primary [facility] Diagnosis Chronic migraine without aura, with intractable migraine, so stated, with status migrainosus- Primary Neck pain Cervicalgia [facility] Diagnosis Onset Date Resolution Status Admit Date Cervical spondylosis acute October 22, 2024 3:41pm Headache, chronic migraine w ithout aura, intractable acute October 22, 2024 3:41pm Occipital neuralgia acute October 22, 2024 3:41pm Other chronic pain acute October 222024 3:41pm [facility] Work Phone: Evaluation note* Diagnosis Other rosacea- Primary documented in this encounter [facility]* Diagnosis Other rosacea- Primary Inflamed skin tag documented in this encounter [facility]* Diagnosis Cervical dystonia- Primary Spasmodic torticollis RLS (restless legs syndrome) Restless legs syndrome (RLS) documented in this encounter [facility]* Diagnosis Cellulitis of left thumb- Primary documented in this encounter [facility]* Diagnosis RLS (restless legs syndrome)- Primary Restless legs syndrome (RLS) Cervical dystonia Spasmodic torticollis Cervicogenic headache Headache Intractable chronic migraine without aura and with status migrainosus documented in this encounter [facility]* Diagnosis Other rosacea- Primary Cellulitis of left thumb [facility] Additional Instructions DISCHARGE INSTRUCTIONS FOR [...] unless a prescription was provided.[facility] Work Phone: Hospital Discharge instructions Additional [...] unless a prescription was provided.[facility] Work Phone: Hospital Discharge instructions Additional Instructions If your symptoms return/worsen or you develop any further concerns or symptoms please see your doctor or return to the emergency department immediately. It is imperative that you go over today's visit and all results with your primary care provider.[facility] Work Phone: Reason for referral (narrative)* Diagnostic Procedure Only (Routine) - Closed Specialty Diagnoses / Procedures Referred By Contac t Referred To Contact XR IMAGING Diagnoses Neck pain, chronic Procedures XR CERV OTHER 4V AP/LAT/OBL RADEX SPINE CERVICAL 4 OR 5 VIEWS aNyely Limon APRN.COMMERCIAL REPORTER [address] [place] [address] Xr Imaging Referral ID Status Reason Start Date Expiration Date V isits Requested Visits Authorized [id number] Closed Auto-Generate d Referral 07/28/2022 08/27/2023 1 1 [facility] for referral (narrative)* Diagnostic Procedure Only (Routine) - Closed Specialty Diagnoses / Procedures Referred By Contac t Referred To Contact XR IMAGING Diagnoses Neck pain, chronic Procedures XR CERV OTHER 4V AP/LAT/OBL RADEX SPINE CERVICAL 4 OR 5 VIEWS Nayely Limon APRN.COMMERCIAL REPORTER [address] [place] [phone] Xr Imaging Referral ID Status Reason Start Date Expiration Date V isits Requested Visits Authorized [id number] Closed Auto-Generate d Referral 07/28/2022 08/27/2023 1 1 [facility] for visit Narrative* Diagnostic Procedure Only (Routine) - Closed Specialty Diagnoses / Procedures Referred By Contac t Referred To Contact XR IMAGING Diagnoses Neck pain, chronic Procedures XR CERV OTHER 4V AP/LAT/OBL RADEX SPINE CERVICAL 4 OR 5 VIEWS Nayely Limon APRN.COMMERCIAL REPORTER [address] [place] [phone] Xr Imaging Referral ID Status Reason Start Date Expiration Date V isits Requested Visits Authorized [id number] Closed Auto-Generate d Referral 07/28/2022 08/27/2023 1 1 [facility] Chief Complaint and Reason for Visit [...] :44pm neck spams, back pain, cough, fever [facility] 2024 7:42am Chief Complaint Admit Date Neck Spasms June 19, 2024 1 :44pm neck spams, back pain, cough, fever [facility] 2024 7:42am chest pain/rt rib & arm pain September 17, 2024 5:00am Chief Complaint Admit Date neck spams, back pain, cough, fever [facility] 2024 7:42am chest pain/rt rib & arm pain September 17, 2024 5:00am Ref Dr Ying neck pain October 22, 2024 3:41 pm Reason for Visit Admit Date Cervical spondylosis October 22, 2024 3:41 pm Headache, chronic migraine without aura, intractable October 22, 2024 3:41pm Occipital neuralgia October 22, 2024 3:41p m Other chronic pain October 22, 2024 3:41p m Advance Directives No Advanced Directives Records Found Advance Directive Response Recorded Date/ Time Advance Directives No August 04, 7:56am Advance Directive Response Recorded Date/ Time Advance Directives No August 04 020 6:56am Reason for Referral Specialty Diagnoses / Procedures Referred By Contac t Referred To Contact Neurology Diagnoses Neck pain, chronic Procedures CONSULT TO NEUROLOGY OFFICE/OUTPATIENT [facility] 60-74 MINUTES Nayely Limon APRN.COMMERCIAL REPORTER [address] [place] [phone] Referral ID Status Reason Start Date Expiration Date Visits Requested Visits Authorized [id number] Authorized PCP Requested Referral 08/11/2022 08/11/2023 1 1 Specialty Diagnoses / Procedures Referred By Contac t Referred To Contact Diagnoses Fibromyalgia Procedures CONSULT TO FUNCTIONAL MEDICINE OFFICE/OUTPATIENT [facility] 60-74 MINUTES Nayely Limon APRN.COMMERCIAL REPORTER [address] [place] [phone] Referral ID Status Reason Start Date Expiration Date Visits Requested Visits Authorized [id number] Authorized PCP Requested Referral 08/11/2022 08/11/2023 1 1 Specialty Diagnoses / Procedures Referred By Contac t Referred To Contact Neurology Diagnoses Cervical dystonia Neck tightness Procedures CONSULT TO NEUROLOGY OFFICE/OUTPATIENT [facility] 60-74 MINUTES Robert Menchaca, SMOKE EATER.COMMERCIAL REPORTER [phone] [place] [phone] Referral ID Status Reason Start Date Expiration Date Visits Requested Visits Authorized [id number] Pending Review PCP Requested Referral 01/12/2023 01/12/2024 1 1 Specialty Diagnoses / Procedures Referred By Contac t Referred To Contact Neurology Diagnoses Cervical dystonia Procedures CONSULT TO NEUROLOGY OFFICE/OUTPATIENT [facility] 60 MINUTES Robert Menchaca, SMOKE EATER.COMMERCIAL REPORTER [phone] [place] [phone] Referral ID Status Reason Start Date Expiration Date Visits Requested Visits Authorized [id number] Authorized PCP Requested Referral 09/04/2023 09/03/2024 1 [...] Active Kenna Sheehan PA-C Attending Provider Active Life Insurance Specialist Relationship Specialty Start Date End Date Filiberto Ying MD PCP - General Family Medicine 06/05/12 Kenna Sheehan PA-C [address] [place] [address] Referring Neurology 07/19/22 Life Insurance Specialist Relationship Specialty Start Date End Date Filiberto Ying MD PCP - General Family Medicine 06/05/12 Kenna Sheehan PA-C [address] [place] [address] Referring Neurology 07/19/22 Life Insurance Specialist Relationship Specialty Start Date End Date Filiberto Ying MD PCP - General Family Medicine 06/05/12 Kenna Sheehan PA-C [address] [place] [id number] Referring Neurology 07/19/22 Life Insurance Specialist Relationship Specialty Start Date End Date Filiberto Ying MD PCP - General Family Medicine 06/05/12 Kenna Sheehan PA-C [address] [phone] Referring Neurology 07/19/22 Life Insurance Specialist Relationship Specialty Start Date End Date Filiberto Ying MD PCP - General Family Medicine 06/05/12 Kenna Sheehan PA-C [address] [phone] Referring Neurology 07/19/22 Life Insurance Specialist Relationship Specialty Start Date End Date Filiberto Ying MD PCP - General Family Medicine 06/05/12 Kenna Sheehan PA-C [address] [phone] Referring Neurology 07/19/22 Life Insurance Specialist Relationship Specialty Start Date End Date Filiberto Ying MD PCP - General Family Medicine 06/05/12 Kenna Sheehan PA-C [address] [phone] Referring Neurology 07/19/22 Team Status: Inactive Member Role Status Dates Filiberto Ying MD Primary Care Provider Active Robert Menchaca APRN TOP EXECUTIVE- Attending Provider Active Life Insurance Specialist Relationship Specialty Start Date End Date Filiberto Ying MD PCP - General Family Medicine 06/05/12 Kenna Sheehan PA-C [address] [address] Referring Neurology 07/19/22 Life Insurance Specialist Relationship Specialty Start Date End Date Filiberto Ying MD PCP - General Family Medicine 06/05/12 Kenna Sehehan PA-C [address] [address] Referring Neurology 07/19/22 Life Insurance Specialist Relationship Specialty Start Date End Date Filiberto Ying MD PCP - General Family Medicine 06/05/12 Kenna Sheehan PA-C [address] [phone] Referring Neurology 07/19/22 Life Insurance Specialist Relationship Specialty Start Date End Date Filiberto Ying MD PCP - General Family Medicine 06/05/12 Kenna Sheehan PA-C [address] [phone] Referring Neurology 07/19/22 Life Insurance Specialist Relationship Specialty Start Date End Date Filiberto Ying MD PCP - General Family Medicine 06/05/12 Kenna Sheehan PA-C [address] [address] Referring Neurology 07/19/22 Life Insurance Specialist Relationship Specialty Start Date End Date Filiberto Ying MD PCP - General Family Medicine 06/05/12 Kenna Sheehan PA-C [address] [phone] Referring Neurology 07/19/22 Life Insurance Specialist Relationship Specialty Start Date End Date Filiberto Ying MD PCP - General Family Medicine 06/05/12 Kenna Sheehan PA-C [address] [address] Referring Neurology 07/19/22 Team Status: Inactive Member Role Status Dates Filiberto Ying MD Primary Care Provider Active Start: January 28, 2024 End: January 28, 2024 Dano Pyle DO Attending Provider Active Start: January 28, 2024 End: January 28, 2024 Life Insurance Specialist Relationship Specialty Start Date End Date Filiberto Ying MD PCP - General Family Medicine 06/05/12 Kenna Sheehan PA-C [address] [phone] Referring Neurology 07/19/22 Team Status: Inactive Member [...] June 19, 2024 End: June 19, 2024 Life Insurance Specialist Relationship Specialty Start Date End Date Filiberto Ying MD [address] [place] [address] PCP - General Family Medicine 12/12/22 Life Insurance Specialist Relationship Specialty Start Date End Date Filiberto Ying MD PCP - General Family Medicine 06/05/12 Kenna Sheehan PA-C [address] [place] [address] Referring Neurology 07/19/22 Team Status: Inactive Member [...] October 22, 2024 End: October 22, 2024 Life Insurance Specialist Relationship Specialty Start Date End Date Filiberto Ying MD PCP - General Family Medicine 06/05/12 Kenna Sheehan PA-C [address] [address] Referring Neurology 07/19/22 Life Insurance Specialist Relationship Specialty Start Date End Date Filiberto Ying MD PCP - General Family Medicine 12/12/22 Life Insurance Specialist Relationship Specialty Start Date End Date Filiberto Ying MD PCP - General Family Medicine 12/12/22 Life Insurance Specialist Relationship Specialty Start Date End Date Filiberto Ying MD [address] [place] [facility] [address] PCP - General Family Medicine 12/12/22 Life Insurance Specialist Relationship Specialty Start Date End Date Filiberto Ying MD [address] [place] [facility] [address] PCP - General Family Medicine 12/12/22 Life Insurance Specialist Relationship Specialty Start Date End Date Filiberto Ying MD [address] [facility], [facility] PCP - General Family Medicine 12/12/22 Life Insurance Specialist Relationship Specialty Start Date End Date Filiberto Ying MD [address] [facility], [facility] PCP - General Family Medicine 12/12/22 Life Insurance Specialist Relationship Specialty Start Date End Date Filiberto Ying MD [address] [facility], [facility] PCP - General Family Medicine 12/12/22 Life Insurance Specialist Relationship Specialty Start Date End Date Filiberto Ying MD [address] [place] [facility] [address] PCP - General Family Medicine 12/12/22 Life Insurance Specialist Relationship Specialty Start Date End Date Filiberto Ying MD [address] [place] [facility] [address] PCP - General Family Medicine 12/12/22 Life Insurance Specialist Relationship Specialty Start Date End Date Filiberto Ying MD [address] [facility] [place] [address] PCP - General Family Medicine 12/12/22 Life Insurance Specialist Relationship Specialty Start Date End Date Filiberto Ying MD [address] [place] [facility] [place] [address] [phone] PCP - General Family Medicine 12/12/22 Goals [...] any alcohol or drug abuse patient.[facility] CenterIn the event this information is protected by the Federal Confidentiality of Alcohol and Drug Abuse Patient Records regulations: The Federal rules restrict any use of the information to criminally investigate or prosecute any alcohol or drug abuse patient.[facility] CenterIn the event this information is protected by the Federal Confidentiality of Alcohol and Drug Abuse Patient Records regulations: The Federal rules restrict any use of the information to criminally investigate or prosecute any alcohol or drug abuse patient.[facility] CenterIn the event this information is protected by the Federal Confidentiality of Alcohol and Drug Abuse Patient Records regulations: The Federal rules restrict any use of the information to criminally investigate or prosecute any alcohol or drug abuse patient.[facility] CenterIn the event this information is protected by the Federal Confidentiality of Alcohol and Drug Abuse Patient Records regulations: The Federal rules restrict any use of the information to criminally investigate or prosecute any alcohol or drug abuse patient.[facility] CenterIn the event this information is protected by the Federal Confidentiality of Alcohol and Drug Abuse Patient Records regulations: The Federal rules restrict any use of the information to criminally investigate or prosecute any alcohol or drug abuse patient.[facility] CenterIn the event this information is protected by the Federal Confidentiality of Alcohol and Drug Abuse Patient Records regulations: The Federal rules restrict any use of the information to criminally investigate or prosecute any alcohol or drug abuse patient.[facility] CenterIn the event this information is protected by the Federal Confidentiality of Alcohol and Drug Abuse Patient Records regulations: The Federal rules restrict any use of the information to criminally investigate or prosecute any alcohol or drug abuse patient.[facility] CenterIn the event this information is protected by the Federal Confidentiality of Alcohol and Drug Abuse Patient Records regulations: The Federal rules restrict any use of the information to criminally investigate or prosecute any alcohol or drug abuse patient.[facility] CenterIn the event this information is protected by the Federal Confidentiality of Alcohol and Drug Abuse Patient Records regulations: The Federal rules restrict any use of the information to criminally investigate or prosecute any alcohol or drug abuse patient.[facility] CenterIn the event this information is protected by the Federal Confidentiality of Alcohol and Drug Abuse Patient Records regulations: The Federal rules restrict any use of the information to criminally investigate or prosecute any alcohol or drug abuse patient.[facility] CenterIn the event this information is protected by the Federal Confidentiality of Alcohol and Drug Abuse Patient Records regulations: The Federal rules restrict any use of the information to criminally investigate or prosecute any alcohol or drug abuse patient.[facility] CenterIn the event this information is protected by the Federal Confidentiality of Alcohol and Drug Abuse Patient Records regulations: The Federal rules restrict any use of the information to criminally investigate or prosecute any alcohol or drug abuse patient.[facility] CenterIn the event this information is protected by the Federal Confidentiality of Alcohol and Drug Abuse Patient Records regulations: The Federal rules restrict any use of the information to criminally investigate or prosecute any alcohol or drug abuse patient.[facility] CenterIn the event this information is protected by the Federal Confidentiality of Alcohol and Drug Abuse Patient Records regulations: The Federal rules restrict any use of the information to criminally investigate or prosecute any alcohol or drug abuse patient.[facility] CenterIn the event this information is protected by the Federal Confidentiality of Alcohol and Drug Abuse Patient Records regulations: The Federal rules restrict any use of the information to criminally investigate or prosecute any alcohol or drug abuse patient.[facility] CenterIn the event this information is protected by the Federal Confidentiality of Alcohol and Drug Abuse Patient Records regulations: The Federal rules restrict any use of the information to criminally investigate or prosecute any alcohol or drug abuse patient.[facility] CenterIn the event this information is protected by the Federal Confidentiality of Alcohol and Drug Abuse Patient Records regulations: The Federal rules restrict any use of the information to criminally investigate or prosecute any alcohol or drug abuse patient.[facility] CenterIn the event this information is protected by the Federal Confidentiality of Alcohol and Drug Abuse Patient Records regulations: The Federal rules restrict any use of the information to criminally investigate or prosecute any alcohol or drug abuse patient.[facility] CenterIn the event this information is protected by the Federal Confidentiality of Alcohol and Drug Abuse Patient Records regulations: The Federal rules restrict any use of the information to criminally investigate or prosecute any alcohol or drug abuse patient.[facility] CenterIn the event this information is protected by the Federal Confidentiality of Alcohol and Drug Abuse Patient Records regulations: The Federal rules restrict any use of the information to criminally investigate or prosecute any alcohol or drug abuse patient.[facility] CenterIn the event this information is protected by the Federal Confidentiality of Alcohol and Drug Abuse Patient Records regulations: The Federal rules restrict any use of the information to criminally investigate or prosecute any alcohol or drug abuse patient.[facility] CenterIn the event this information is protected by the Federal Confidentiality of Alcohol and Drug Abuse Patient Records regulations: The Federal rules restrict any use of the information to criminally investigate or prosecute any alcohol or drug abuse patient.[facility] CenterIn the event this information is protected by the Federal Confidentiality of Alcohol and Drug Abuse Patient Records regulations: The Federal rules restrict any use of the information to criminally investigate or prosecute any alcohol or drug abuse patient.[facility] CenterIn the event this information is protected by the Federal Confidentiality of Alcohol and Drug Abuse Patient Records regulations: The Federal rules restrict any use of the information to criminally investigate or prosecute any alcohol or drug abuse patient.[facility] Reason for Visit (unrecogniz ed section and content) Reason Comments Botox Injection Specialty Diagnoses / Procedures Referred By Contac t Referred To Contact Neurology / ADULT NEUROLOGY Diagnoses Chronic migraine without aura, intractable, with status migrainosus F/u hold for botox Procedures BOTULINUM TOXIN A PER 1 UNIT EST NI PATIENT Harman Sullivan MD Phone: tel: fax: Harman Sullivan MD [address] [phone] Phone: tel: fax: Referral ID Status Reason Start Date Expiration Date V isits Requested Visits Authorized [id number] Authorized 10/15/2024 10/14/2025 99 99 Reason Comments Neck Pain Reason Comments Neck Pain Follow up Reason Comments New Patient Reason Comments Results [facility] Reason Comments Results [facility] Reason Comments Follow Up Reason Onset Date Comments Refill Request 09/15/2023 Reason Comments Request Outside Medical Records Reason Comments Cervical Dystonia Specialty Diagnoses / Procedures Referred By Contac t Referred To Contact Neurology Diagnoses Cervical dystonia Procedures CONSULT TO NEUROLOGY OFFICE/OUTPATIENT [facility] 60 MINUTES Robert Menchaca, LONNY.COMMERCIAL REPORTER [phone] [phone] Referral ID Status Reason Start Date Expiration Date V isits Requested Visits Authorized [id number] Closed PCP Requested Referral 09/04/2023 09/03/2024 1 1 Reason Onset Date Comments Refill Request 10/18/2023 Reason Comments Insurance Authorization Botox Specialty Diagnoses / Procedures Referred By Contac t Referred To Contact ADULT NEUROLOGY Diagnoses Chronic migraine without aura, intractable, with status migrainosus Procedures BOTULINUM TOXIN A PER 1 UNIT CHEMODERVATE FACIAL/TRIGEM/CERV MUSC MIGRAINE Harman Sullivan MD [address] [place] [address] [place] [address] Neur Chris [address] [facility] [place] [address] Referral ID Status Reason Start Date Expiration Date V isits Requested Visits Authorized [id number] Authorized 10/11/2023 10/14/2024 99 99 Reason Comments Appointment Reason Comments 1st po Exc. bilateral breast masses Specialty Diagnoses / Procedures Referred By Contac t Referred To Contact General Surgery Diagnoses Hospital followup status post surgery Procedures PA UNLISTED EVALUATION AND MANAGEMENT SERVICE [facility] [address] [place] [address] Dano Pyle, DO [address] [address] Phone: tel: fax: Referral ID Status Reason Start Date Expiration Date Visits Re quested Visits Authorized [id number] Closed 06/17/2024 12/14/2024 1 1 Specialty Diagnoses / Procedures Referred By Contac t Referred To Contact ADULT NEUROLOGY Diagnoses Chronic migraine without aura, intractable, with status migrainosus Procedures BOTULINUM TOXIN A PER 1 UNIT CHEMODERVATE FACIAL/TRIGEM/CERV MUSC MIGRAINE Harman Sullivan MD [address] [place] [address] [place] [address] Phone: tel: fax: Neurology [address] [place] [address] [place] [address] Phone: tel: fax: Referral ID Status Reason Start Date Expiration Date Visits Requested Visits Authorized [id number] Authorized Financial Clearance Required - [employer] 10/11/2023 10/14/2024 99 99 Reason Comments Follow-up Reason Comments Nail changes Reason Comments Migraine Restless Legs INFORMATION SOURCE (unrecogn ized section and content) DATE CREATED AUTHOR 09/07/2022 [facility] DATE CREATED AUTHOR AUTHOR'S ORGANIZ ATION 11/15/2022 [employer] DATE CREATED AUTHOR AUTHOR'S ORGANIZ ATION 01/01/2023 [facility] DATE CREATED AUTHOR AUTHOR'S ORGANIZ ATION 02/04/2023 [facility] DATE CREATED AUTHOR AUTHOR'S ORGANIZ ATION 02/22/2024 [facility] DATE CREATED AUTHOR AUTHOR'S ORGANIZ ATION 09/18/2024 [facility] DATE CREATED AUTHOR AUTHOR'S LINDA ATION 11/01/2024 [facility] DATE CREATED AUTHOR AUTHOR'S ORGANABILIO ATION 01/30/2025 [facility] [place] FOR RECORDS PERTAINING TO PATIENTS WHO ARE [...] BE BASED ON THE PRIMARY CLINICAL RECORDS. [facility] [employer] provides no warranty or guarantee of the accuracy or completeness of information in this document.
[2025-01-31 21:55] VITALS: BP 131/88; PULSE 90; TEMP 36.8; O2SAT 99; BMI 29.3
[2025-01-31 22:42] VITALS: BP 128/87; O2SAT 100
--- NOTE | 2025-01-31 22:51 | ED.NECK1 ---
HPI HPI - Neck Pain/Injury General Chief Complaint: Neck Pain/Injury Stated Complaint: NECK SPASMS Time Seen by Provider: 01/31/25 21:19 Source: patient Mode of arrival: walk-in History of Present Illness HPI Narrative: complains of chronic neck spasms. States she is having a flare tonight and came in. Tried home meds valium and norco and did not help. Ongoing problem since age 14. States one doctor thought it might be dystonia but another did not agree. No fever. No radicular symptoms Related Data Home Medications ?Medication ?Instructions ?Recorded ?Confirmed diazepam 10 mg tablet 10 mg PO DAILY PRN muscle spasm 03/21/23 10/08/24 pramipexole 1 mg tablet (Mirapex) 1 mg PO DAILY 03/21/23 12/09/24 ciprofloxacin HCl 500 mg tablet mg 12/09/24 metronidazole 500 mg tablet mg 12/09/24 minocycline 100 mg capsule mg 12/09/24 Allergies Allergy/AdvReac Type Severity Reaction Status Date / Time caffeine Allergy Mild Vomiting Verified 01/31/25 22:40 adhesive Allergy Blister Verified 01/31/25 22:40 dihydroergotamine Allergy Difficulty Verified 01/31/25 22:40 Breathing metoclopramide (From Reglan) Allergy Cramping Verified 01/31/25 22:40 of the Muscles metoprolol Allergy Swelling Verified 01/31/25 22:40 of Lip/Tongue/Throat promethazine (From Phenergan) Allergy Unknown Verified 01/31/25 22:40 Opioid HPI Opioid Management Most Recent Opioid Data: Last Pain Scale 7 01/31/25, 21:55 Review of Systems ROS Status of ROS 10 or more systems reviewed and unremarkable except as noted in history and below PFSH PFSH Social History Smoking status: Never smoker Little interest or pleasure in doing things: not at all Feeling down, depressed, or hopeless: not at all Exam Constitutional Vital Signs, click to edit/add: Last Vital Signs Temp 98.2 F 01/31/25 21:55 Pulse 90 01/31/25 21:55 Resp 20 01/31/25 22:42 BP 128/87 01/31/25 22:42 Pulse Ox 100 01/31/25 22:42 O2 Del Method Room Air 01/31/25 22:42 Common normals: no apparent distress, average body habitus, oriented x3, no limitations, healthy appearing, alert and well nourished [facility] Common normals: normocephalic and head/scalp atraumatic Eye Common normals: PERRL, EOMs intact bilaterally and conjunctivae normal Neck & C-Spine Other: patient resist ROM of her neck due to pain Respiratory Common normals: normal respiratory effort, no retractions, no use of accessory muscles and clear to auscultation bilaterally Cardio Common normals: regular rate, regular rhythm, S1 normal heart sound and S2 normal heart sound Extremity Common normals: normal to inspection and full ROM Neuro Common normals: oriented x3, CN's II-XII intact bilaterally, moves all extremities and no focal motor deficits Psych Appearance: grossly normal Course Vital Signs Vital signs: Vital Signs Temperature 98.2 F 01/31/25 21:55 Pulse Rate 90 01/31/25 21:55 Respiratory Rate 16 01/31/25 21:55 Blood Pressure 131/88 01/31/25 21:55 Pulse Oximetry 99 01/31/25 21:55 Oxygen Delivery Method Room Air 01/31/25 21:55 Temperature 98.2 F 01/31/25 21:55 Pulse Rate 90 01/31/25 21:55 Respiratory Rate 20 01/31/25 22:42 Blood Pressure 128/87 01/31/25 22:42 Pulse Oximetry 100 01/31/25 22:42 Oxygen Delivery Method Room Air 01/31/25 22:42 MDM - Neck Pain/Injury MDM Narrative Medical decision making narrative: patient with chronic recurrent neck spasm. Presents tonight with flare up. No neuro symptoms. Medicated with cocktail of valium, solumedrol and fentanyl. Pain is now tolerable. Patient provided with a soft collar and dicharged home to follow up with her family doctor Lab Data Labs: Lab Results 01/31/25 Range/Units 22:30 WBC 6.0 (4.0-11.0) 10^3/uL RBC 4.73 (4.20-5.40) 10^6/uL Hgb 14.1 (12.0-16.0) g/dL Hct 41.7 (36.0-48.0) % MCV 88.2 (81.0-99.0) fL MCH 29.8 (26.7-34.0) pg MCHC 33.8 (29.9-35.2) g/dL RDW 13.2 (11.0-15.0) % Plt Count 295 (150-450) 10^3/uL MPV 9.1 L (9.5-13.5) fL Neut % (Auto) 54.0 (43.0-75.0) % Lymph % (Auto) 36.6 (20.5-60.0) % Sabine % (Auto) 7.0 (1.7-12.0) % Eos % (Auto) 1.7 (0.9-7.0) % Baso % (Auto) 0.5 (0.2-2.0) % Neut # (Auto) 3.3 (1.4-6.5) 10^3/uL Lymph # (Auto) 2.2 (1.2-3.8) 10^3/uL Sabine # (Auto) 0.4 (0.3-0.8) 10^3/uL Eos # (Auto) 0.1 (0.0-0.7) 10^3/uL Baso # (Auto) 0.0 (0.0-0.1) 10^3/uL Abs Immat Gran (auto) 0.01 (0.00-0.03) 10^3/uL Imm/Tot Granulo (auto) 0.2 (0.0-0.5) % ESR 12 (<=20) mm/hr Sodium 143 (136-145) mmol/L Potassium 4.1 (3.5-5.1) mmol/L Chloride 107 (98-107) mmol/L Carbon Dioxide 26.0 (21.0-32.0) mmol/L Anion Gap 14.1 BUN 12.0 (7.0-18.0) mg/dL Creatinine 0.65 (0.55-1.02) mg/dL Est GFR ( Amer) >60 (>=60 mL/min/1.73m^2) Est GFR (Non-Af Amer) >60 (>=60 mL/min/1.73m^2) BUN/Creatinine Ratio 18.5 Glucose 89 (74-106) mg/dL Calcium 9.2 (8.5-10.1) mg/dL C-Reactive Protein <0.50 (<=0.50) mg/dL Discharge Plan Discharge Chief Complaint: Neck Pain/Injury Clinical Impression: Neck pain, acute Patient Disposition: Home, Self-Care Prescriptions / Home Meds: No Action diazepam 10 mg tablet 10 mg PO DAILY PRN (Reason: muscle spasm) pramipexole [Mirapex] 1 mg tablet 1 mg PO DAILY minocycline 100 mg capsule metronidazole 500 mg tablet ciprofloxacin HCl 500 mg tablet Print Language: Malay Instructions: Acute Neck Pain (ED) Additional Instructions: follow up with Dr Obrien next week for recheck Referrals: Danny Obrien MD [Primary Care Provider, Family Practice] - 1 week
[2025-01-31 23:42] LABS: Hematocrit 41.7 % (36.0-48.0); Hemoglobin 14.1 g/dL (12.0-16.0); Immature Granulocytes Abs Auto 0.01 10^3/uL (0.00-0.03); Immature Granulocytes Pct Auto 0.2 % (0.0-0.5); Lymphocytes Absolute Auto 2.2 10^3/uL (1.2-3.8); Mean Corpuscular HGB Conc 33.8 g/dL (29.9-35.2); Mean Corpuscular Hemoglobin 29.8 pg (26.7-34.0); Mean Corpuscular Volume 88.2 fL (81.0-99.0); Platelet Count 295 10^3/uL (150-450); Red Blood Count 4.73 10^6/uL (4.20-5.40); White Blood Count 6.0 10^3/uL (4.0-11.0)
[2025-01-31] MEDS: MAGNESIUM SULFATE IN WATER 2 GM/50 ML PREMIX IV (23:47)
[2025-01-31] MEDS: METHYLPREDNISOLONE SOD SUCC PF 125 MG/2 ML VIAL IVP (23:47)
[2025-01-31 23:54] LABS: Anion Gap 14.1; Blood Urea Nitrogen 12.0 mg/dL (7.0-18.0); Calcium 9.2 mg/dL (8.5-10.1); Carbon Dioxide 26.0 mmol/L (21.0-32.0); Chloride 107 mmol/L (98-107); Estimated GFR (African America >60 (>=60 mL/min/1.73m^2); Estimated GFR (Non-African Ame >60 (>=60 mL/min/1.73m^2); Glucose 89 mg/dL (74-106); Potassium 4.1 mmol/L (3.5-5.1); Sodium 143 mmol/L (136-145)
[2025-02-01] MEDS: DIAZEPAM 10 MG/2 ML SYRINGE 5 MG IV (00:11)
--- NOTE | 2025-02-01 00:24 | PC.NURSE ---
Patient requests to stop IV Magnesium as it is burning. IV flushed with NS without pain. Attempted to turn down rate and patient still requests to stop Magnesium at this time. Dr. Myles aware.
[2025-02-01 02:10] VITALS: BP 119/79; PULSE 74; O2SAT 99
[2025-02-01] MEDS: FENTANYL CITRATE/PF 100 MCG/2 ML VIAL IV (02:14)
== END 2025-02-01 02:37 | disposition home or self-care (01) ==
PROVIDERS: Emergency Provider Internal Medicine; PCP Family Medicine
DX: M54.2 Cervicalgia (principal)
CPT/HCPCS: 36415; 80048; 85025; 85652; 86140; 96365; 96375; 99284; J2405; J2919; J3010; J3360; J3475

== ENCOUNTER 2025-02-07 06:52 | Outpatient (OUT) | payer OTHER, SELFPAY ==
--- OUTSIDE RECORDS SUMMARY | 2025-02-07 06:56 | XMS_ITS | CCD ---
Author Organization [facility] Care Team Providers Care Etl Developer Name Role Phone MD Filiberto Ying Primary Care Provider PURVI Sheehan Attending Provider [phone] STEPAN .DR DE LOS SANTOS Primary [...] Provider [phone] Kenna Sheehan PA-C Unavailable [facility] DIALLO, Dr. Saeed Jean-Baptiste Attending Unavailable Stepan, Dr. Filiberto Fuller Primary Care Unavail able Emanuel, Dr. Saeed Stahl Referring Unava ilneris Castellanos, Dr. Saeed Stahl Attending Unava ilable Stepan, Dr. Filiberto Fuller Primary Care Unavail able Emanuel, Dr. Saeed Stalh Referring Unava ilneris Castellanos, Dr. Saeed Stahl [...] Attending Provider DO Dano Pyle Attending Provider [phone] MD Filiberto Ying M Primary Care Provider [phone] Filiberto Ying MD Primary Care Provider [phone] MD Filiberto Ying Primary Care Provider [phone] DO Dano Pyle Attending Provider [phone] Reuben Bauman MD Attending Unavailable Filiberto Ying MD Primary Care Provider [phone] Jonas OQUENDO, Dano Attending Provider [phone] Babar Singh PA-C Emergency Provider [phone] Filiberto Ying MD Primary Care Provider [phone] [...] Unavailable Filiberto Ying MD Primary Care Provider [phone] Filiberto Ying MD Primary Care Provider [phone] DANO PYLE Attending Unavailable PETITTI, BAN A [...] Allergy 06-13-19 13 Vomiting, GI intolerance, Unknown [facility] (20 sources) DHE; Translations: [Dhe] Allergy to substance 06-13-19 13 Shortness of Breath [facility] (20 sources) Adhesive agent; Translations: [ADHESIVE] Propensity to adverse reactions to drug 07-29-19 Other: See Asa, Yamilet [facility] (20 sources) Adhesive Tape Allergy to substance (finding) 10-24-19 [facility] (9 sources) prasterone; Translations: [DHEA CAPS] Drug Allergy -[facility] [address] DO Work Phone: (20 sources) Metoprolol; Translations: [METOPROLOL] Drug Allergy 05-01-20 23 Swelling [facility] (20 sources) Metoclopramide Drug Allergy 05-15-20 23 Other [facility] (20 sources) Dihydroergotamine Drug Allergy 01-16-20 23 Unknown [facility] (20 sources) Wound Dressing Adhesive Drug Intolerance 07-29-19 23 Unknown, Yamilet [facility] (6 sources) Droperidol; Translations: [DROPERIDOL] Drug Allergy 07-31-19 Other: See Comments [facility] (15 sources) Promethazine Drug Allergy 10-23-19 Other [facility] (14 sources) Droperidol Propensity to adverse reactions 07-31-19 Other [facility] Healthcare Medications Current Medications Medication Drug Class(es) [...] Start: 01-28-2025 take 1 capsule by mo [facility] branson twice daily doxycycline (Monodox) 100 MG capsule [...] mouth every twenty-four hours as needed HYDROcodone-acetaminophen ([place]) 5-325 MG tablet Take 0.5 tablets by [...] eight hours as needed for pain Hydrocodone-Acetaminophen ([place]) 5-325 mg tablet Discontinued 1 TAB PO [...] EVERY DAY AT BEDTIME 03/06/2022 11/20/2024 Discontinued Mipbszue-Yg-Rad-Fe-FA (P-D CARTER PLUS) Tab (2 sources) End: 2022 take 1 tablet by mouth once daily Kjrzayau-Gk-Mdh-Fe-FA (P-D PLUS) Tab Take 1 tablet by mouth once daily. 0 08/01/2022 Discontinued (Course of therapy completed) take 1 tablet by mouth once ute y Xnfcecul-Ox-Lsu-Fe-FA (P-D CARTER PLUS) Tab Take 1 tablet [...] Nom (Unsp spec) Final report [facility] No Panel Informationon 01-24 Performed at: 01 - [address] [id number] Professional Caster: Bentley Leggett PhD, Phone: [phone] [facility] RESULTon 01-24-2025 Bacteria identified Cx Nom (Unsp spec) Comment [facility] Comment on above: No growth in 36 - 48 hours. [facility] MR CERVICAL SPINE WO CONTRAS Ton 11-27-2024 [...] Not Available CNOVon 10-29-2024 CNOV Office Visit ([facility] ) BRITTANIE GARCIA ([id number]) 1985 F Date Time Provider Department 10/29/24 4:30 PM HARMAN SULLIVAN [facility] During your visit today, we recorded the [...] brought in by patient? No Lot #: [id number] Exp: 09/2026 Dilution: 5 units/0.1 ml (100 [...] Optional follow pain # units L R Shuttle Threader 10 units divided in 2 sites [id number] [...] Harman Sullivan MD Referring Provider: HARMAN SULLIVAN [[id number]] Allergies As of Date: 10/29/2024 Noted Allergy [...] for Encounter Date Provider Department Center 10/29/2024 [id number], TED [facility] Encounter Status:Closed by HARMAN SULLIVAN on 10/29/24 [facility] 09-26-2024 CNPN Telephone ([facility]) BRITTANIE GARCIA ([id number]) 1985 F Date Time Provider Department 09/26/24 HARMAN SULLIVAN [facility] During your visit today, we recorded the [...] Status:Closed by EVONNE DILLARD on 10/10/24 Normal [facility] Appearance of UrineOrdered B y: Peg Ruiz on 09-17-2024 Appearance (U) Urine appearance Clear [facility] B-Type Natriuretic Peptideon 09-17-2024 Natriuretic peptide B (Bld) [Mass/Vol] 24.0 pg/mL Normal 5-100 [facility] Comment on above: Result Comment: PERF ORMED BY: [facility] [address] [place] [id number] PATHOLOGIST SENIOR CLINICAL STUDY MANAGER RAFIA LOPEZ M.D. Performed By: #### C K, BMP, PT, BNP, DDIMER, CBC, HS TROP ####[facility] [id number] [place] [id number] [facility] Bacteria [Presence] in Urine by AutomatedOrdered By: Peg Ruiz on 09-17-2024 Bacteria Auto Ql (U) Bacteria [Presence] in Urine by Automated None Seen [facility] Basic Metabolic Panelon 08-21 Anion gap [Moles/Vol] 10.9 mmol/L Normal 6.0-15.0 [facility] Comment on above: Performed By: #### C K, BMP, PT, BNP, DDIMER, CBC, HS TROP ####[place] [id number] [address] Calcium [Mass/Vol] 9.4 mg/dL Normal 8.6-10.3 [facility] Comment on above: Performed By: #### C K, BMP, PT, BNP, DDIMER, CBC, HS TROP ####[address] Chloride [Moles/Vol] 106 mmol/L Normal 98-107 [facility] Comment on above: Performed By: #### C K, BMP, PT, BNP, DDIMER, CBC, HS TROP ####[address] CO2 [Moles/Vol] 26.7 mmol/L Normal 21.0-31.0 [facility] Comment on above: Performed By: #### C K, BMP, PT, BNP, DDIMER, CBC, HS TROP ####[address] Creatinine [Mass/Vol] 0.91 mg/dL Normal 0.60-1.20 [facility] Comment on above: Performed By: #### C K, BMP, PT, BNP, DDIMER, CBC, HS TROP ####[address] Creatinine Clr Calc Pharmacy 80.55 Normal [facility] Comment on above: Result Comment: PERF ORMED BY: [facility] [address] [place] [address] PATHOLOGIST SENIOR CLINICAL STUDY MANAGER RAFIA LOPEZ M.D. Performed By: #### C K, BMP, PT, BNP, DDIMER, CBC, HS TROP ####[address] GFR/1.73 sq M.predicted MDRD (S/P/Bld) [Vol rate/Area] mL/min/{1.73_m2} Normal [facility] Comment on above: Performed By: #### C K, BMP, PT, BNP, DDIMER, CBC, HS TROP ####[place] [id number] [place] Glucose [Mass/Vol] 99 mg/dL Normal 70-100 [facility] Comment on above: Result Comment: Koppel Glucose Reference Range is dependent on time and content of last meal. Glucose of more than 200 mg/dL in a nonstressed, ambulatory subject supports the diagnosis of Diabetes Mellitus. ADA recommended reference range Performed By: #### C K, BMP, PT, BNP, DDIMER, CBC, HS TROP ####[address] Potassium [Moles/Vol] 3.6 mmol/L Normal 3.5-5.1 [facility] Comment on above: Performed By: #### C K, BMP, PT, BNP, DDIMER, CBC, HS TROP ####[place] [address] [address] Sodium [Moles/Vol] 140 mmol/L Normal 136-145 [facility] Comment on above: Performed By: #### C K, BMP, PT, BNP, DDIMER, CBC, HS TROP ####[address] Urea nitrogen [Mass/Vol] 13 mg/dL Normal 7-25 [facility] Comment on above: Performed By: #### C K, BMP, PT, BNP, DDIMER, CBC, HS TROP ####[address] Basophils Auto (Bld) [#/Vol] Ordered By: Peg Ruiz on 09-17-2024 Basophils (Bld) [#/Vol] Automated basophil count 0.0-0.2 [facility] Basophils/100 WBC Auto (Bld) Ordered By: Peg Ruiz on 09-17-2024 Basophils/100 WBC (Bld) Automated basophil % . [facility] Bilirubin Test strip Ql (U)O rdered By: Peg Ruiz on 09-17-2024 Bilirubin Ql (U) Bilirubin.total [Pre sence] in Urine by Test strip Negative [facility] CT abdomen pelvis wo conon 0 09-17-2024 CT abdomen pelvis wo con [facility] [place] [address] CT Scan Report Signed Patient: Brittanie Garcia MR#: [id number] : 1985 Acct:[id number] Age/Sex: 39 / F ADM Date: 09/17/24 Loc: ER Room: Type: [facility] ER Attending Dr: Copies to: DO [...] Jr., D.O. 09/17/2024 8:21 AM Dictation Location: [place] [address] Transcribed By: JADEN 09/17/24820 Dictated By: Prince Heath Jr, DO 09/17/24817 Signed By: 09/17/24820 Normal [facility] Calcium [Mass/volume] in Ser um or PlasmaOrdered By: Peg Ruiz on 09-17-2024 Calcium [Mass/Vol] Calcium [Mass/volume ] in Serum or Plasma 8.6-10.3 [facility] Carbon dioxide, total [Moles /volume] in Serum or PlasmaOrdered By: Peg Ruiz on 09-17-2024 CO2 [Moles/Vol] Carbon dioxide, tota l [Moles/volume] in Serum or Plasma 21.0-31.0 [facility] Chloride [Moles/volume] in S leticia or PlasmaOrdered By: Peg Ruiz on 09-17-2024 Chloride [Moles/Vol] Chloride [Moles/vol ume] in Serum or Plasma 98-107 [facility] Color Auto (U)Ordered By: Donaldo Ruiz on 09-17-2024 Color (U) Color of Urine by Auto Yellow [facility] Complete Blood Count Auto Di ffon 09-17-2024 Basophils (Bld) [#/Vol] 0.0 10*3/uL Normal 0.0-0.2 [facility] Comment on above: Result Comment: PERF ORMED BY: [facility] [address] [place] [address] PATHOLOGIST SENIOR CLINICAL STUDY MANAGER RAFIA LOPEZ M.D. Performed By: #### C K, BMP, PT, BNP, DDIMER, CBC, HS TROP ####[address] Basophils/100 WBC (Bld) 0.7 % Normal . [facility] Comment on above: Performed By: #### C K, BMP, PT, BNP, DDIMER, CBC, HS TROP ####[place] [address] [address] Eosinophils (Bld) [#/Vol] 0.1 10*3/uL Normal 0.0-0.45 [facility] Comment on above: Performed By: #### C K, BMP, PT, BNP, DDIMER, CBC, HS TROP ####[place] [id number] [place] Eosinophils/100 WBC (Bld) 2.0 % Normal . [facility] Comment on above: Performed By: #### C K, BMP, PT, BNP, DDIMER, CBC, HS TROP ####[address] Erythrocyte distribution width (RBC) [Ratio] 13.9 % Normal 11.9-15.3 [facility] Comment on above: Performed By: #### C K, BMP, PT, BNP, DDIMER, CBC, HS TROP ####[address] Hematocrit (Bld) [Volume fraction] 42.2 % Normal 34.0-46.4 [facility] Comment on above: Performed By: #### C K, BMP, PT, BNP, DDIMER, CBC, HS TROP ####[address] Hemoglobin (Bld) [Mass/Vol] 14.4 g/dL Normal 11.8-15.4 [facility] Comment on above: Performed By: #### C K, BMP, PT, BNP, DDIMER, CBC, HS TROP ####[address] Lymphocytes (Bld) [#/Vol] 2.6 10*3/uL Normal 1.00-4.8 [facility] Comment on above: Performed By: #### C K, BMP, PT, BNP, DDIMER, CBC, HS TROP ####[address] Lymphocytes/100 WBC (Bld) 41.7 % Normal . [facility] Comment on above: Performed By: #### C K, BMP, PT, BNP, DDIMER, CBC, HS TROP ####[address] MCH (RBC) [Entitic mass] 29.7 pg Normal 24.7-34.3 [facility] Comment on above: Performed By: #### C K, BMP, PT, BNP, DDIMER, CBC, HS TROP ####[address] MCV (RBC) [Entitic vol] 87.1 fL Normal 80-100 [facility] Comment on above: Performed By: #### C K, BMP, PT, BNP, DDIMER, CBC, HS TROP ####[address] Mean Corpuscular HGB Conc 34.1 g/dL Normal 32.0-35.0 [facility] Comment on above: Performed By: #### C K, BMP, PT, BNP, DDIMER, CBC, HS TROP ####[address] Monocytes (Bld) [#/Vol] 0.4 10*3/uL Normal 0.0-0.8 [facility] Comment on above: Performed By: #### C K, BMP, PT, BNP, DDIMER, CBC, HS TROP ####[address] Monocytes/100 WBC (Bld) 16.75 % Normal 0.00-20.00 [facility] Comment on above: Performed By: #### C K, BMP, PT, BNP, DDIMER, CBC, HS TROP ####[address] Monocytes/100 WBC (Bld) 7.0 % Normal . [facility] Comment on above: Performed By: #### C K, BMP, PT, BNP, DDIMER, CBC, HS TROP ####[address] Neutrophils (Bld) [#/Vol] 3.0 10*3/uL Normal 1.8-7.7 [facility] Comment on above: Performed By: #### C K, BMP, PT, BNP, DDIMER, CBC, HS TROP ####[address] Neutrophils/100 WBC (Bld) 48.6 % Normal . [facility] Comment on above: Performed By: #### C K, BMP, PT, BNP, DDIMER, CBC, HS TROP ####[address] NRBC% 0.1 /100{WBC} Normal 0-0.5 [facility] Comment on above: Performed By: #### C K, BMP, PT, BNP, DDIMER, CBC, HS TROP ####[address] Platelet mean volume (Bld) [Entitic vol] 7.5 fL Normal 6.3-10.7 [facility] Comment on above: Performed By: #### C K, BMP, PT, BNP, DDIMER, CBC, HS TROP ####[address] Platelets (Bld) [#/Vol] 297 10*3/uL Normal 150-450 [facility] Comment on above: Performed By: #### C K, BMP, PT, BNP, DDIMER, CBC, HS TROP ####[address] RBC (Bld) [#/Vol] 4.85 10*6/uL Normal 3.60-5.00 [facility] Comment on above: Performed By: #### C K, BMP, PT, BNP, DDIMER, CBC, HS TROP ####[address] WBC (Bld) [#/Vol] 6.3 10*3/uL Normal 3.8-11.6 [facility] Comment on above: Performed By: #### C K, BMP, PT, BNP, DDIMER, CBC, HS TROP ####[address] Creatine Kinaseon 09-17-2024 CK [Catalytic activity/Vol] 58 U/L Normal 30-223 [facility] Comment on above: Performed By: #### C K, BMP, PT, BNP, DDIMER, CBC, HS TROP ####[address] Creatine kinase [Enzymatic a ctivity/volume] in Serum or PlasmaOrdered By: Peg Ruiz on 09-17-2024 CK [Catalytic activity/Vol] Creatine kinase [Enzymatic activity/volume] in Serum [place] Plasma [address] [facility] Creatinine [Mass/volume] in Serum or PlasmaOrdered By: Peg Ruiz on 09-17-2024 Creatinine [Mass/Vol] Creatinine [Mass/v olume] in Serum or Plasma 0.60-1.20 [facility] D-Dimer High Sensitivityon 0 09-17-2024 D-Dimer High Sensitivity <200 Normal 0-243 [facility] Comment on above: [...] coagulation studies. Please contact the laboratory at [phone] for redraw instructions. PERFORMED BY: [place] [address] PATHOLOGIST SENIOR CLINICAL STUDY MANAGER RAFIA LOPEZ M.D. Performed By: #### C K, BMP, PT, BNP, DDIMER, CBC, HS TROP ####[facility] [id number] [place] [address] [place] Dipstick and Microscopicon 0 09-17-2024 Appearance (U) Clear Normal Clear [facility] Comment on above: Order Comment: Name Collection Type:: Clean-Voided Midstream Performed By: #### U HCG, ADDONUAPLUS #### [facility] [address] Bacteria,Urine Rare Normal None Seen [facility] Comment on above: Order Comment: Name Collection Type:: Clean-Voided Midstream Performed By: #### U HCG, ADDONUAPLUS #### [facility] [address] [place] [address] [place] Bilirubin,Urine Negative Normal Negative [facility] Comment on above: Order Comment: Name Collection Type:: Clean-Voided Midstream Performed By: #### U HCG, ADDONUAPLUS #### [facility] [address] Color (U) Colorless Normal Yellow [facility] Comment on above: Order Comment: Name Collection Type:: Clean-Voided Midstream Performed By: #### U HCG, ADDONUAPLUS #### [facility] [address] [place] [address] Glucose Ql (U) Normal Normal Normal [facility] Comment on above: Order Comment: Name Collection Type:: Clean-Voided Midstream Performed By: #### U HCG, ADDONUAPLUS #### [place] [address] [place] Hyaline Casts,Urine None Normal 0-8 [facility] Comment on above: Order Comment: Name Collection Type:: Clean-Voided Midstream Performed By: #### U HCG, ADDONUAPLUS #### [facility] [address] [place] [address] [place] Ketones Ql (U) Negative Normal Negative [facility] Comment on above: Order Comment: Name Collection Type:: Clean-Voided Midstream Performed By: #### U HCG, ADDONUAPLUS #### [facility] [address] [place] [address] [place] Leukocyte esterase Test strip Ql (U) 3+ High Negative [facility] Comment on above: Order Comment: Name Collection Type:: Clean-Voided Midstream Performed By: #### U HCG, ADDONUAPLUS #### [facility] [address] [place] [address] [place] Nitrite,Urine Negative Normal Negative [facility] Comment on above: Order Comment: Name Collection Type:: Clean-Voided Midstream Performed By: #### U HCG, ADDONUAPLUS #### [facility] [address] [place] [address] [place] Occult Blood,Urine Trace High Negative [facility] Comment on above: Order Comment: Name Collection Type:: Clean-Voided Midstream Performed By: #### U HCG, ADDONUAPLUS #### [address] pH (U) 6.0 [pH] Normal 5.0-9.0 [facility] Comment on above: Order Comment: Name Collection Type:: Clean-Voided Midstream Performed By: #### U HCG, ADDONUAPLUS #### [address] Protein,Urine Negative Normal Negative [facility] Comment on above: Order Comment: Name Collection Type:: Clean-Voided Midstream Performed By: #### U HCG, ADDONUAPLUS #### [address] RBC,Urine 1-2 Normal 0-4 [facility] Comment on above: Order Comment: Name Collection Type:: Clean-Voided Midstream Performed By: #### U HCG, ADDONUAPLUS #### [address] Specificy [place],Urine 1.009 Normal 1.001-1.03 0 [facility] Comment on above: Order Comment: Name Collection Type:: Clean-Voided Midstream Performed By: #### U HCG, ADDONUAPLUS #### [address] Squamous Epithelial Cell,Urine 1-2 Normal 0-2 [facility] Comment on above: Order Comment: Name Collection Type:: Clean-Voided Midstream Performed By: #### U HCG, ADDONUAPLUS #### [place] [address] [place] Urobilinogen,Urine Normal Normal Normal [facility] Comment on above: Order Comment: Name Collection Type:: Clean-Voided Midstream Performed By: #### U HCG, ADDONUAPLUS #### [place] [address] [place] WBC,Urine 1-2 Normal 0-4 [facility] Comment on above: Order Comment: Name Collection Type:: Clean-Voided Midstream Performed By: #### U HCG, ADDONUAPLUS #### [facility] [address] ECG 12 lead ECGon 09-17-2024 ECG 12 lead ECG [facility] Main [place] [address] [place] [address] Electrocardiograph Report Signed Patient: Brittanie Garcia MR#: [id number] : 1985 Acct:[id number] Age/Sex: 39 / F ADM Date: 09/17/24 Loc: ER Room: Type: [facility] ER Attending Dr: Ordering Provider: Peg [...] By Peg Ruiz DO 0151 Normal [facility] Eosinophils Auto (Bld) [#/Vo l]Ordered By: Peg Ruiz on 09-17-2024 Eosinophils (Bld) [#/Vol] Automated eosinophil count 0.0-0.45 [facility] Eosinophils/100 WBC Auto (Bl d)Ordered By: Peg Ruiz on 09-17-2024 Eosinophils/100 WBC (Bld) Automated eosinophil % . [facility] Epithelial cells.squamous [# /area] in Urine sediment by Automated countOrdered By: Peg Ruiz on 09-17-2024 Epithelial cells.squamous Auto (Urine sed) [#/Area] Epithelial cells.squamous [#/area] in Urine sediment by Automated count 0-2 [facility] Erythrocyte distribution wid th Auto (RBC) [Ratio]Ordered By: Peg Ruiz on 09-17-2024 Erythrocyte distribution width (RBC) [Ratio] Erythrocyte distribution width [Ratio] by Automated count 11.9-15.3 [facility] Erythrocytes [#/area] in Uri ne sediment by Automated countOrdered By: Peg Ruiz on 09-17-2024 RBC Auto (Urine sed) [#/Area] Erythrocytes [#/area] in Urine sediment by Automated count 0-4 [facility] Fibrin D-dimer [Presence] in Platelet poor plasma by Latex agglutinationOrdered By: Peg Ruiz on 09-17-2024 Fibrin D-dimer LA Ql (PPP) Fibrin D-dimer [Presence] in Platelet poor plasma by Latex agglutination 0-243 [facility] Comment on above: The reference range for [...] coagulation studies. Please contact the laboratory at [phone] for redraw instructions. Glucose [Mass/volume] in Ser um or PlasmaOrdered By: Peg Ruiz on 09-17-2024 Glucose [Mass/Vol] Glucose [Mass/volume ] in Serum or Plasma 70-100 [facility] Comment on above: ADA recommended [...] [Mass/volume] in Urine by Test strip Normal [facility] HCG ( test) IA.rapi d Ql (U)Ordered By: Peg Ruiz on 09-17-2024 HCG ( test) Ql (U) Urine human chorionic gonadotropin (hCG) detection by immunoassay [facility] HCG,Urineon 09-17-2024 Beta HCG ( test) Ql (U) Negative Normal [facility] Comment on above: Order Comment: Name Collection Type:: Clean-Voided Midstream Result Comment: PERF ORMED BY: [place] [address] PATHOLOGIST SENIOR CLINICAL STUDY MANAGER RAFIA LOPEZ M.D. Performed By: #### U HCG, ADDONUAPLUS #### [address] Hematocrit Auto (Bld) [Volum e fraction]Ordered By: Peg Ruiz on 09-17-2024 Hematocrit (Bld) [Volume fraction] Hematocrit [Volume Fraction] of Blood by Automated count 34.0-46.4 [facility] Hemoglobin Test strip Ql (U) Ordered By: Peg Ruiz on 09-17-2024 Hemoglobin Ql (U) Hemoglobin [Presence ] in Urine by Test strip High Negative [facility] Hemoglobin [Mass/volume] in BloodOrdered By: Peg Ruiz on 09-17-2024 Hemoglobin (Bld) [Mass/Vol] Hemoglobin [Mass/volume] in Blood 11.8-15.4 [facility] Hyaline casts [#/area] in Ur ine sediment by Automated countOrdered By: Peg Ruiz on 09-17-2024 Hyaline casts Auto (Urine sed) [#/Area] Hyaline casts [#/area] in Urine sediment by Automated count 0-8 [facility] INR in Platelet poor plasma by Coagulation assayOrdered By: Peg Ruiz on 09-17-2024 INR Coag (PPP) [Relative time] INR in Platelet poor plasma by Coagulation assay [facility] Comment on above: INR Therapeutic Rang e [...] i n Urine by Test strip Negative [facility] Leukocyte esterase [Presence ] in Urine by Test stripOrdered By: Peg Ruiz on 09-17-2024 Leukocyte esterase Test strip Ql (U) Leukocyte esterase [Presence] in Urine by Test strip High Negative [facility] Leukocytes [#/area] in Urine sediment by Automated countOrdered By: Peg Ruiz on 09-17-2024 WBC Auto (Urine sed) [#/Area] Leukocytes [#/area] in Urine sediment by Automated count 0-4 [facility] Leukocytes [#/volume] correc harman for nucleated erythrocytes in Blood by Automated counOrdered By: Peg Ruiz on 09-17-2024 WBC corrected for nucl RBC Auto (Bld) [#/Vol] Leukocytes [#/volume] corrected for nucleated erythrocytes in Blood by Automated coun 3.8-11.6 [facility] Lymphocytes Auto (Bld) [#/Vo l]Ordered By: Peg Ruiz on 09-17-2024 Lymphocytes (Bld) [#/Vol] Lymphocytes [#/volume] in Blood by Automated count 1.00-4.8 [facility] Lymphocytes/100 WBC Auto (Bl d)Ordered By: Peg Ruiz on 09-17-2024 Lymphocytes/100 WBC (Bld) Lymphocytes/100 leukocytes in Blood by Automated count . [facility] MCH Auto (RBC) [Entitic mass ]Ordered By: Peg Ruiz on 09-17-2024 MCH (RBC) [Entitic mass] MCH [Entitic mass] by Automated count 24.7-34.3 [facility] MCHC Auto (RBC) [Mass/Vol]Or dered By: Peg Ruiz on 09-17-2024 MCHC (RBC) [Mass/Vol] MCHC [Mass/volume] by Automated count 32.0-35.0 [facility] MCV Auto (RBC) [Entitic vol] Ordered By: Peg Ruiz on 09-17-2024 MCV (RBC) [Entitic vol] MCV [Entitic volume] by Automated count 80-100 [facility] Monocyte distribution width [Entitic volume] in Blood by AutomatedOrdered By: Peg Ruiz on 09-17-2024 Monocyte distribution width Auto (Bld) [Entitic vol] Monocyte distribution width [Entitic volume] in Blood by Automated 0.00-20.00 [facility] Monocytes Auto (Bld) [#/Vol] Ordered By: Peg Ruiz on 09-17-2024 Monocytes (Bld) [#/Vol] Automated blood monocyte count 0.0-0.8 [facility] Monocytes/100 WBC Auto (Bld) Ordered By: Peg Ruiz on 09-17-2024 Monocytes/100 WBC (Bld) Automated monocyte % . [facility] Natriuretic peptide B [Mass/ Vol]Ordered By: Peg Ruiz on 09-17-2024 Natriuretic peptide B (Bld) [Mass/Vol] BNP ser/plas 5-100 [facility] Neutrophils Auto (Bld) [#/Vo l]Ordered By: Peg Ruiz on 09-17-2024 Neutrophils (Bld) [#/Vol] Neutrophils [#/volume] in Blood by Automated count 1.8-7.7 [facility] Neutrophils/100 WBC Auto (Bl d)Ordered By: Peg Ruiz on 09-17-2024 Neutrophils/100 WBC (Bld) Automated neutrophil % . [facility] Nitrite Test strip Ql (U)Ord ered By: Peg Ruiz on 09-17-2024 Nitrite Ql (U) Nitrite [Presence] i n Urine by Test strip Negative [facility] No Panel InformationOrdered By: Peg Ruiz on 09-17-2024 Estimated GFR (CKD-EPI) > 60.0 mL/Min [facility] Creatinine Clearance (Chem 80.55 [facility] Nucleated erythrocytes [Pres ence] in Blood by Automated countOrdered By: Peg Ruiz on 09-17-2024 Nucleated RBC Auto Ql (Bld) Nucleated erythrocytes [Presence] in Blood by Automated count 0-0.5 [facility] Platelet mean volume Auto (B ld) [Entitic vol]Ordered By: Peg Ruiz on 09-17-2024 Platelet mean volume (Bld) [Entitic vol] Platelet mean volume [Entitic volume] in Blood by Automated count 6.3-10.7 [facility] Platelets Auto (Bld) [#/Vol] Ordered By: Peg Ruiz on 09-17-2024 Platelets (Bld) [#/Vol] Platelets [#/volume] in Blood by Automated count 150-450 [facility] Potassium [Moles/volume] in Serum or PlasmaOrdered By: Peg Ruiz on 09-17-2024 Potassium [Moles/Vol] Potassium [Moles/v olume] in Serum or Plasma 3.5-5.1 [facility] Protein Test strip (U) [Mass /Vol]Ordered By: Peg Ruiz on 09-17-2024 Protein (U) [Mass/Vol] Protein [Mass/vol ume] in Urine by Test strip Negative [facility] Prothrombin Time INRon 09-17 INR Coag (PPP) [Relative time] 1.0 {INR} Normal [facility] Comment on above: [...] BMP, PT, BNP, DDIMER, CBC, HS TROP ####[facility] [id number] [place] [address] [facility] PT Coag (PPP) [Time] 11.1 s Normal 9.0-12.9 [facility] Comment on above: Result Comment: A he matocrit value greater than 55% may lead to inaccurate results in coagulation testing. Patients having hematocrit values >55% require a special collection tube for coagulation studies. Please contact the laboratory at [phone] for redraw instructions. Performed By: #### C K, BMP, PT, BNP, DDIMER, CBC, HS TROP ####[facility] [id number] [place] [id number] [facility] Prothrombin time (PT)Ordered By: Peg Ruiz on 09-17-2024 PT Coag (PPP) [Time] Prothrombin time (PT) 9.0- 12.9 [facility] Comment on above: A hematocrit value g reater than 55% may lead to inaccurate results in coagulation testing. Patients having hematocrit values >55% require a special collection tube for coagulation studies. Please contact the laboratory at [phone] for redraw instructions. RBC Auto (Bld) [#/Vol]Ordere d By: Peg Ruiz on 09-17-2024 RBC (Bld) [#/Vol] Erythrocytes [#/volu me] in Blood by Automated count 3.60-5.00 [facility] Serum or plasma anion gap de terminationOrdered By: Peg Ruiz on 09-17-2024 Anion gap [Moles/Vol] Serum or plasma an ion gap determination 6.0-15.0 [facility] Sodium [Moles/volume] in Ser um or PlasmaOrdered By: Peg Ruiz on 09-17-2024 Sodium [Moles/Vol] Sodium [Moles/volume ] in Serum or Plasma 136-145 [facility] Specific gravity Test strip (U) [Rel density]Ordered By: Peg Ruiz on 09-17-2024 Specific gravity (U) [Rel density] Specific gravity of Urine by Test strip 1.001-1.03 0 [facility] Troponin I High Sensitivityo n 09-17-2024 Troponin I High Sensitivity <3 Normal 0-15 [facility] Comment on above: Result Comment: The Troponin units of report have been changed to meet the Chest Pain Accreditation requirement, element EC5.M1l2. Troponin units are changed from pg/ml to ng/L. Also, the decimal is removed and results are in whole numbers. PERFORMED BY: [facility] [address] [place] [id number] PATHOLOGIST SENIOR CLINICAL STUDY MANAGER RAFIA LOPEZ M.D. Performed By: #### C K, BMP, PT, BNP, DDIMER, CBC, HS TROP ####[place] [address] [place] [id number] [facility] Troponin I.cardiac [Mass/vol ume] in Serum or Plasma by Detection limit <= 0.01 ng/Ordered By: Peg Ruiz on 09-17-2024 Troponin I.cardiac DL <= 0.01 ng/mL [Mass/Vol] Troponin I.cardiac [Mass/volume] in Serum or Plasma by Detection limit <= 0.01 ng/ 0-15 [facility] Comment on above: The Troponin units o f report have been changed to meet the Chest Pain Accreditation requirement, element EC5.M1l2. Troponin units are changed from pg/ml to ng/L. Also, the decimal is removed and results are in whole numbers. Urea nitrogen [Mass/volume] in Serum or PlasmaOrdered By: Peg Ruiz on 09-17-2024 Urea nitrogen [Mass/Vol] Urea nitrogen [Mass/volume] in Serum or Plasma 7-25 [facility] Urobilinogen Test strip (U) [Mass/Vol]Ordered By: Peg Ruiz on 09-17-2024 Urobilinogen (U) [Mass/Vol] Urobilinogen [Mass/volume] in Urine by Test strip Normal [facility] WBC Auto (Bld) [#/Vol]Ordere d By: Peg Ruiz on 09-17-2024 WBC (Bld) [#/Vol] Leukocytes [#/volume ] in Blood by Automated count 3.8-11.6 [facility] X-ray reportOrdered By: Larry Heath on 09-17-2024 Study report [facility] [place] [address] XRay Report Signed Patient: Brittanie Garcia MR# : [id number] : 1985 Acct:[id number] Age/Sex: 39 / F ADM Date: 5 Loc: ER Room: Type: [facility] ER Attending Dr: Copies to: Peg [...] Heath Jr, DO 09/17/24827 Signed By: 09/17/2428 [facility] XR chest 2V*on 09-17-2024 XR chest 2V* [facility] Main [place] [address] [place] [address] XRay Report Signed Patient: Brittanie Garcia MR#: [id number] : 1985 Acct:[id number] Age/Sex: 39 / F ADM Date: 09/17/24 Loc: ER Room: Type: [facility] ER Attending Dr: Copies to: Peg [...] DO 09/17/24827 Signed By: 09/17/2428 Normal [facility] pH Test strip (U)Ordered By: Peg Ruiz on 09-17-2024 pH (U) pH of Urine by Test strip 5.0-9.0 [facility] Alanine aminotransferase [En zymatic activity/volume] in Serum or PlasmaOrdered By: Luis Goins on 08-01-2024 ALT [Catalytic activity/Vol] Alanine aminotransferase [Enzymatic activity/volume] in Serum or Plasma [facility] Albumin [Mass/volume] in Ser um or Plasma by Bromocresol green (BCG) dye binding methoOrdered By: Luis Goins on 08-01-2024 Albumin BCG dye [Mass/Vol] Albumin [Mass/volume] in Serum or Plasma by Bromocresol green (BCG) dye binding metho 3.5-5.7 [facility] Alkaline phosphatase [Enzyma tic activity/volume] in Serum or PlasmaOrdered By: Luis Goins on 08-01-2024 ALP [Catalytic activity/Vol] Alkaline phosphatase [Enzymatic activity/volume] in Serum or Plasma 34-104 [facility] Appearance of UrineOrdered B y: Luis Goins on 08-01-2024 Appearance (U) Urine appearance Clear [facility] Aspartate aminotransferase [ Enzymatic activity/volume] in Serum or PlasmaOrdered By: Luis Goins on 08-01-2024 AST [Catalytic activity/Vol] Aspartate aminotransferase [Enzymatic activity/volume] in Serum or Plasma 13-39 [facility] Bacteria [Presence] in Urine by AutomatedOrdered By: Luis Goins on 08-01-2024 Bacteria Auto Ql (U) Bacteria [Presence] in Urine by Automated High None Seen [facility] Basophils Auto (Bld) [#/Vol] Ordered By: Luis Goins on 08-01-2024 Basophils (Bld) [#/Vol] Automated basophil count 0.0-0.2 [facility] Basophils/100 WBC Auto (Bld) Ordered By: Luis Goins on 08-01-2024 Basophils/100 WBC (Bld) Automated basophil % . [facility] Bilirubin Test strip Ql (U)O rdered By: Luis Goins on 08-01-2024 Bilirubin Ql (U) Bilirubin.total [Pre sence] in Urine by Test strip Negative [facility] Bilirubin.total [Mass/volume ] in Serum or PlasmaOrdered By: Luis Goins on 08-01-2024 Bilirubin [Mass/Vol] Bilirubin.total [Mass/volume] in Serum or Plasma 0.3-1.0 [facility] COVID Cepheid NegativeOrdere d By: Luis Goins on 08-01-2024 SARS-CoV-2 (COVID-19) Ab IA Ql COVID Cepheid Negative [facility] Comment on above: This is a duplicate [...] or Cepheid Disclaimer revoked sooner. PERFORMED BY: [address] [place] [address] PATHOLOGIST SENIOR CLINICAL STUDY MANAGER RAFIA LOPEZ M.D. Normal [facility] Comment on above: Performed By: #### C EPHEID NEG, ADDONUAPLUS, COVID19 FLU RSV ####[place] [address] [place] [address] [facility] Calcium [Mass/volume] in Ser um or PlasmaOrdered By: Luis Goins on 08-01-2024 Calcium [Mass/Vol] Calcium [Mass/volume ] in Serum or Plasma 8.6-10.3 [facility] Carbon dioxide, total [Moles /volume] in Serum or PlasmaOrdered By: Luis Goins on 08-01-2024 CO2 [Moles/Vol] Carbon dioxide, tota l [Moles/volume] in Serum or Plasma 21.0-31.0 [facility] Cepheid COVID PCR Negativeon 08-01-2024 SARS-CoV-2 (COVID-19) RNA LISBETH+probe Ql (Unsp spec) Negative Normal Negative [facility] Comment on above: Result Comment: This is a duplicate [employer] Netid Xpert Xpress CoV-2/Flu/RSV Plus RNA by RT-PCR result to be used for statistical tracking purpose only. PERFORMED BY: [address] [address] PATHOLOGIST SENIOR CLINICAL STUDY MANAGER RAFIA LOPEZ M.D. Performed By: #### C EPHEID NEG, ADDONUAPLUS, COVID19 FLU RSV ####[place] [address] [place] [address] [place] Chloride [Moles/volume] in S leticia or PlasmaOrdered By: Luis Goins on 08-01-2024 Chloride [Moles/Vol] Chloride [Moles/vol ume] in Serum or Plasma 98-107 [facility] Color Auto (U)Ordered By: Yony Goins on 08-01-2024 Color (U) Color of Urine by Auto Yellow [facility] Complete Blood Count Auto Di ffon 08-01-2024 Basophils (Bld) [#/Vol] 0.0 10*3/uL Normal 0.0-0.2 [facility] Comment on above: Result Comment: PERF ORMED BY: [facility] [place] [address] PATHOLOGIST SENIOR CLINICAL STUDY MANAGER RAFIA LOPEZ M.D. Performed By: #### C BC, CMP ####[address] Basophils/100 WBC (Bld) 0.7 % Normal . [facility] Comment on above: Performed By: #### C BC, CMP ####[address] Eosinophils (Bld) [#/Vol] 0.0 10*3/uL Normal 0.0-0.45 [facility] Comment on above: Performed By: #### C BC, CMP ####[address] Eosinophils/100 WBC (Bld) 0.4 % Normal . [facility] Comment on above: Performed By: #### C BC, CMP ####[address] Erythrocyte distribution width (RBC) [Ratio] 13.3 % Normal 11.9-15.3 [facility] Comment on above: Performed By: #### C BC, CMP ####[address] Hematocrit (Bld) [Volume fraction] 39.8 % Normal 34.0-46.4 [facility] Comment on above: Performed By: #### C BC, CMP ####[address] Hemoglobin (Bld) [Mass/Vol] 13.4 g/dL Normal 11.8-15.4 [facility] Comment on above: Performed By: #### C BC, CMP ####[address] Lymphocytes (Bld) [#/Vol] 1.1 10*3/uL Normal 1.00-4.8 [facility] Comment on above: Performed By: #### C BC, CMP ####[address] Lymphocytes/100 WBC (Bld) 44.4 % Normal . [facility] Comment on above: Performed By: #### C BC, CMP ####[address] MCH (RBC) [Entitic mass] 29.3 pg Normal 24.7-34.3 [facility] Comment on above: Performed By: #### C BC, CMP ####[address] MCV (RBC) [Entitic vol] 86.8 fL Normal 80-100 [facility] Comment on above: Performed By: #### C BC, CMP ####[address] Mean Corpuscular HGB Conc 33.7 g/dL Normal 32.0-35.0 [facility] Comment on above: Performed By: #### C BC, CMP ####[address] Monocytes (Bld) [#/Vol] 0.3 10*3/uL Normal 0.0-0.8 [facility] Comment on above: Performed By: #### C BC, CMP ####[address] Monocytes/100 WBC (Bld) 26.77 % High 0.00-20.00 [facility] Comment on above: Result Comment: For adults in ED, MDW > 20.0 may be associated with a higher risk of sepsis during the first 12 hrs of hospital admission Performed By: #### C BC, CMP ####[address] Monocytes/100 WBC (Bld) 11.1 % Normal . [facility] Comment on above: Performed By: #### C BC, CMP ####[place] [address] [place] [address] [facility] Neutrophils (Bld) [#/Vol] 1.1 10*3/uL Low 1.8-7.7 [facility] Comment on above: Performed By: #### C TAVO, CMP ####[address] [address] [facility] Neutrophils/100 WBC (Bld) 43.4 % Normal . [facility] Comment on above: Performed By: #### C TAVO, CMP ####[place] [id number] [facility] NRBC% 0.3 /100{WBC} Normal 0-0.5 [facility] Comment on above: Performed By: #### C TAVO, CMP ####[place] [id number] [facility] Platelet mean volume (Bld) [Entitic vol] 7.7 fL Normal 6.3-10.7 [facility] Comment on above: Performed By: #### C TAVO, CMP ####[place] [id number] [facility] Platelets (Bld) [#/Vol] 196 10*3/uL Normal 150-450 [facility] Comment on above: Performed By: #### C TAVO, CMP ####[place] [id number] [facility] RBC (Bld) [#/Vol] 4.58 10*6/uL Normal 3.60-5.00 [facility] Comment on above: Performed By: #### C TAVO, CMP ####[place] [id number] [facility] WBC (Bld) [#/Vol] 2.5 10*3/uL Low 3.8-11.6 [facility] Comment on above: Performed By: #### C TAVO, CMP ####[place] [id number] [facility] Comprehensive Metabolic Pane pedro 08-01-2024 Albumin [Mass/Vol] 4.2 g/dL Normal 3.5-5.7 [facility] Comment on above: Performed By: #### C BC, CMP ####[address] [address] [facility] Albumin/Globulin [Mass ratio] 1.5 {ratio} Normal [facility] Comment on above: Performed By: #### C BC, CMP ####[address] [address] [facility] ALP [Catalytic activity/Vol] 58 U/L Normal 34-104 [facility] Comment on above: Performed By: #### C BC, CMP ####[address] [address] [facility] ALT [Catalytic activity/Vol] 22 U/L Normal 7-52 [facility] Comment on above: Performed By: #### C BC, CMP ####[address] [address] [facility] Anion gap [Moles/Vol] 10.6 mmol/L Normal 6.0-15.0 [facility] Comment on above: Performed By: #### C BC, CMP ####[address] [address] [facility] AST [Catalytic activity/Vol] 23 U/L Normal 13-39 [facility] Comment on above: Performed By: #### C BC, CMP ####[address] [address] [facility] Bilirubin [Mass/Vol] 0.3 mg/dL Normal 0.3-1.0 [facility] Comment on above: Performed By: #### C BC, CMP ####[address] [address] [facility] Calcium [Mass/Vol] 8.8 mg/dL Normal 8.6-10.3 [facility] Comment on above: Performed By: #### C BC, CMP ####[address] [address] [facility] Chloride [Moles/Vol] 106 mmol/L Normal 98-107 [facility] Comment on above: Performed By: #### C BC, CMP ####[facility] [address] CO2 [Moles/Vol] 27.0 mmol/L Normal 21.0-31.0 [facility] Comment on above: Performed By: #### C BC, CMP ####[address] Creatinine [Mass/Vol] 0.88 mg/dL Normal 0.60-1.20 [facility] Comment on above: Performed By: #### C BC, CMP ####[address] Creatinine Clr Calc Pharmacy 82.02 Normal [facility] Comment on above: Result Comment: PERF ORMED BY: [place] [address] PATHOLOGIST SENIOR CLINICAL STUDY MANAGER RAFIA LOPEZ M.D. Performed By: #### C BC, CMP ####[address] GFR/1.73 sq M.predicted MDRD (S/P/Bld) [Vol rate/Area] mL/min/{1.73_m2} Normal [facility] Comment on above: Performed By: #### C BC, CMP ####[address] Globulin (S) [Mass/Vol] 2.8 g/dL Normal [facility] Comment on above: Performed By: #### C BC, CMP ####[address] Glucose [Mass/Vol] 87 mg/dL Normal 70-100 [facility] Comment on above: Result Comment: [facility] Glucose Reference Range is dependent on time and content of last meal. Glucose of more than 200 mg/dL in a nonstressed, ambulatory subject supports the diagnosis of Diabetes Mellitus. ADA recommended reference range Performed By: #### C BC, CMP ####[address] Potassium [Moles/Vol] 3.6 mmol/L Normal 3.5-5.1 [facility] Comment on above: Performed By: #### C BC, CMP ####[address] [address] [facility] Protein [Mass/Vol] 7.0 g/dL Normal 6.4-8.9 [facility] Comment on above: Performed By: #### C BC, CMP ####[place] [id number] [facility] Sodium [Moles/Vol] 140 mmol/L Normal 136-145 [facility] Comment on above: Performed By: #### C BC, CMP ####[address] [address] [facility] Urea nitrogen [Mass/Vol] 8 mg/dL Normal 7-25 [facility] Comment on above: Performed By: #### C BC, CMP ####[place] [id number] [facility] Creatinine [Mass/volume] in Serum or PlasmaOrdered By: Luis Goins on 08-01-2024 Creatinine [Mass/Vol] Creatinine [Mass/v olume] in Serum or Plasma 0.60-1.20 [facility] Dipstick and Microscopicon 0 08-01-2024 Appearance (U) Clear Normal Clear [facility] Comment on above: Order Comment: Name Collection Type:: Voided Performed By: #### C EPHEID NEG, ADDONUAPLUS, COVID19 FLU RSV ####[address] [address] [facility] Bacteria,Urine 1+ High None Seen [facility] Comment on above: Order Comment: Name Collection Type:: Voided Performed By: #### C EPHEID NEG, ADDONUAPLUS, COVID19 FLU RSV ####[address] [address] [facility] Bilirubin,Urine Negative Normal Negative [facility] Comment on above: Order Comment: Name Collection Type:: Voided Performed By: #### C EPHEID NEG, ADDONUAPLUS, COVID19 FLU RSV ####[address] [address] [facility] Color (U) Light-Yellow Normal Yellow [facility] Comment on above: Order Comment: Name Collection Type:: Voided Performed By: #### C EPHEID NEG, ADDONUAPLUS, COVID19 FLU RSV ####[address] [address] [facility] Glucose Ql (U) Normal Normal Normal [facility] Comment on above: Order Comment: Name Collection Type:: Voided Performed By: #### C EPHEID NEG, ADDONUAPLUS, COVID19 FLU RSV ####[address] [address] [facility] Hyaline Casts,Urine None Normal 0-8 [facility] Comment on above: Order Comment: Name Collection Type:: Voided Performed By: #### C EPHEID NEG, ADDONUAPLUS, COVID19 FLU RSV ####[address] [address] [facility] Ketones Ql (U) Negative Normal Negative [facility] Comment on above: Order Comment: Name Collection Type:: Voided Performed By: #### C EPHEID NEG, ADDONUAPLUS, COVID19 FLU RSV ####[address] [address] [facility] Leukocyte esterase Test strip Ql (U) 3+ High Negative [facility] Comment on above: Order Comment: Name Collection Type:: Voided Performed By: #### C EPHEID NEG, ADDONUAPLUS, COVID19 FLU RSV ####[place] [id number] [facility] Mucus,Urine 1+ Critically abnormal [facility] Comment on above: Order Comment: Name Collection Type:: Voided Result Comment: PERF ORMED BY: [facility] [address] [place] [id number] PATHOLOGIST SENIOR CLINICAL STUDY MANAGER RAFIA LOPEZ M.D. Performed By: #### C EPHEID NEG, ADDONUAPLUS, COVID19 FLU RSV ####[place] [id number] [facility] Nitrite,Urine Negative Normal Negative [facility] Comment on above: Order Comment: Name Collection Type:: Voided Performed By: #### C EPHEID NEG, ADDONUAPLUS, COVID19 FLU RSV ####[place] [id number] [facility] Occult Blood,Urine Negative Normal Negative [facility] Comment on above: Order Comment: Name Collection Type:: Voided Result Comment: PERF ORMED BY: [facility] [address] [place] [id number] PATHOLOGIST SENIOR CLINICAL STUDY MANAGER RAFIA LOPEZ M.D. Performed By: #### C EPHEID NEG, ADDONUAPLUS, COVID19 FLU RSV ####[place] [id number] [facility] pH (U) 6.0 [pH] Normal 5.0-9.0 [facility] Comment on above: Order Comment: Name Collection Type:: Voided Performed By: #### C EPHEID NEG, ADDONUAPLUS, COVID19 FLU RSV ####[place] [id number] [facility] Protein,Urine Negative Normal Negative [facility] Comment on above: Order Comment: Name Collection Type:: Voided Performed By: #### C EPHEID NEG, ADDONUAPLUS, COVID19 FLU RSV ####[place] [id number] [facility] RBC,Urine 3-4 Normal 0-4 [facility] Comment on above: Order Comment: Name Collection Type:: Voided Performed By: #### C EPHEID NEG, ADDONUAPLUS, COVID19 FLU RSV ####[address] [address] [facility] Specificy [place],Urine 1.012 Normal 1.001-1.03 0 [facility] [facility] Comment on above: Order Comment: Name Collection Type:: Voided Performed By: #### C EPHEID NEG, ADDONUAPLUS, COVID19 FLU RSV ####[address] [address] [facility] Squamous Epithelial Cell,Urine 10-19 High 0-2 [facility] Comment on above: Order Comment: Name Collection Type:: Voided Performed By: #### C EPHEID NEG, ADDONUAPLUS, COVID19 FLU RSV ####[place] [id number] [address] Urobilinogen,Urine Normal Normal Normal [facility] Comment on above: Order Comment: Name Collection Type:: Voided Performed By: #### C EPHEID NEG, ADDONUAPLUS, COVID19 FLU RSV ####[address] WBC,Urine 1-2 Normal 0-4 [facility] Comment on above: Order Comment: Name Collection Type:: Voided Performed By: #### C EPHEID NEG, ADDONUAPLUS, COVID19 FLU RSV ####[address] Eosinophils Auto (Bld) [#/Vo l]Ordered By: Luis Goins on 08-01-2024 Eosinophils (Bld) [#/Vol] Automated eosinophil count 0.0-0.45 [facility] Eosinophils/100 WBC Auto (Bl d)Ordered By: Luis Goins on 08-01-2024 Eosinophils/100 WBC (Bld) Automated eosinophil % . [facility] Epithelial cells.squamous [# /area] in Urine sediment by Automated countOrdered By: Luis Goins on 08-01-2024 Epithelial cells.squamous Auto (Urine sed) [#/Area] Epithelial cells.squamous [#/area] in Urine sediment by Automated count High 0-2 [facility] Erythrocyte distribution wid th Auto (RBC) [Ratio]Ordered By: Luis Goins on 08-01-2024 Erythrocyte distribution width (RBC) [Ratio] Erythrocyte distribution width [Ratio] by Automated count 11.9-15.3 [facility] Erythrocytes [#/area] in Uri ne sediment by Automated countOrdered By: Luis Goins on 08-01-2024 RBC Auto (Urine sed) [#/Area] Erythrocytes [#/area] in Urine sediment by Automated count 0-4 [facility] Globulin Calc (S) [Mass/Vol] Ordered By: Luis Goins on 08-01-2024 Globulin (S) [Mass/Vol] Serum globulin measurement by calculation (mass/volume) [facility] Glucose [Mass/volume] in Ser um or PlasmaOrdered By: Luis Goins on 08-01-2024 Glucose [Mass/Vol] Glucose [Mass/volume ] in Serum or Plasma 70-100 [facility] Comment on above: ADA recommended [...] [Mass/volume] in Urine by Test strip Normal [facility] Hematocrit Auto (Bld) [Volum e fraction]Ordered By: Luis Goins on 08-01-2024 Hematocrit (Bld) [Volume fraction] Hematocrit [Volume Fraction] of Blood by Automated count 34.0-46.4 [facility] Hemoglobin Test strip Ql (U) Ordered By: Luis Goins on 08-01-2024 Hemoglobin Ql (U) Hemoglobin [Presence ] in Urine by Test strip Negative [facility] Hemoglobin [Mass/volume] in BloodOrdered By: Luis Goins 08-01-2024 Hemoglobin (Bld) [Mass/Vol] Hemoglobin [Mass/volume] in Blood 11.8-15.4 [facility] Hyaline casts [#/area] in Ur ine sediment by Automated countOrdered By: Luis Goins 08-01-2024 Hyaline casts Auto (Urine sed) [#/Area] Hyaline casts [#/area] in Urine sediment by Automated count 0-8 [facility] Ketones Test strip Ql (U)Ord ered By: Luis Goins on 08-01-2024 Ketones Ql (U) Ketones [Presence] i n Urine by Test strip Negative [facility] Leukocyte esterase [Presence ] in Urine by Test stripOrdered By: Luis Goins on 08-01-2024 Leukocyte esterase Test strip Ql (U) Leukocyte esterase [Presence] in Urine by Test strip High Negative [facility] Leukocytes [#/area] in Urine sediment by Automated countOrdered By: Luis Goins 08-01-2024 WBC Auto (Urine sed) [#/Area] Leukocytes [#/area] in Urine sediment by Automated count 0-4 [facility] Leukocytes [#/volume] correc harman for nucleated erythrocytes in Blood by Automated counOrdered By: Luis Goins on 08-01-2024 WBC corrected for nucl RBC Auto (Bld) [#/Vol] Leukocytes [#/volume] corrected for nucleated erythrocytes in Blood by Automated coun Low 3.8-11.6 [facility] Lymphocytes Auto (Bld) [#/Vo l]Ordered By: Luis Goins on 08-01-2024 Lymphocytes (Bld) [#/Vol] Lymphocytes [#/volume] in Blood by Automated count 1.00-4.8 [facility] Lymphocytes/100 WBC Auto (Bl d)Ordered By: Luis Goins on 08-01-2024 Lymphocytes/100 WBC (Bld) Lymphocytes/100 leukocytes in Blood by Automated count . [facility] MCH Auto (RBC) [Entitic mass ]Ordered By: Luis Goins on 08-01-2024 MCH (RBC) [Entitic mass] MCH [Entitic mass] by Automated count 24.7-34.3 [facility] MCHC Auto (RBC) [Mass/Vol]Or dered By: Luis Goins on 08-01-2024 MCHC (RBC) [Mass/Vol] MCHC [Mass/volume] by Automated count 32.0-35.0 [facility] MCV Auto (RBC) [Entitic vol] Ordered By: Luis Goins on 08-01-2024 MCV (RBC) [Entitic vol] MCV [Entitic volume] by Automated count 80-100 [facility] Monocyte distribution width [Entitic volume] in Blood by AutomatedOrdered By: Luis Goins on 08-01-2024 Monocyte distribution width Auto (Bld) [Entitic vol] Monocyte distribution width [Entitic volume] in Blood by Automated High 0.00-20.00 [facility] Comment on above: For adults in ED, MD W > 20.0 may be associated with a higher risk of sepsis during the first 12 hrs of hospital admission Monocytes Auto (Bld) [#/Vol] Ordered By: Luis Goins on 08-01-2024 Monocytes (Bld) [#/Vol] Automated blood monocyte count 0.0-0.8 [facility] Monocytes/100 WBC Auto (Bld) Ordered By: Luis Goins on 08-01-2024 Monocytes/100 WBC (Bld) Automated monocyte % . [facility] Mucus [Presence] in Urine by AutomatedOrdered By: Luis Goins on 08-01-2024 Mucus Auto Ql (U) Mucus [Presence] in Urine by Automated Abnormal [facility] Neutrophils Auto (Bld) [#/Vo l]Ordered By: Luis Goins on 08-01-2024 Neutrophils (Bld) [#/Vol] Neutrophils [#/volume] in Blood by Automated count Low 1.8-7.7 [facility] Neutrophils/100 WBC Auto (Bl d)Ordered By: Luis Goins on 08-01-2024 Neutrophils/100 WBC (Bld) Automated neutrophil % . [facility] Nitrite Test strip Ql (U)Ord ered By: Luis Goins on 08-01-2024 Nitrite Ql (U) Nitrite [Presence] i n Urine by Test strip Negative [facility] No Panel InformationOrdered By: Luis Goins on 08-01-2024 Estimated GFR (CKD-EPI) > 60.0 mL/Min [facility] Creatinine Clearance (Chem 82.02 [facility] Nucleated erythrocytes [Pres ence] in Blood by Automated countOrdered By: Luis Goins on 08-01-2024 Nucleated RBC Auto Ql (Bld) Nucleated erythrocytes [Presence] in Blood by Automated count 0-0.5 [facility] Platelet mean volume Auto (B ld) [Entitic vol]Ordered By: Luis Goins on 08-01-2024 Platelet mean volume (Bld) [Entitic vol] Platelet mean volume [Entitic volume] in Blood by Automated count 6.3-10.7 [facility] Platelets Auto (Bld) [#/Vol] Ordered By: Luis Goins on 08-01-2024 Platelets (Bld) [#/Vol] Platelets [#/volume] in Blood by Automated count 150-450 [facility] Potassium [Moles/volume] in Serum or PlasmaOrdered By: Luis Goins on 08-01-2024 Potassium [Moles/Vol] Potassium [Moles/v olume] in Serum or Plasma 3.5-5.1 [facility] Protein Test strip (U) [Mass /Vol]Ordered By: Luis Goins on 08-01-2024 Protein (U) [Mass/Vol] Protein [Mass/vol ume] in Urine by Test strip Negative [facility] Protein [Mass/volume] in Ser um or PlasmaOrdered By: Luis Goins on 08-01-2024 Protein [Mass/Vol] Protein [Mass/volume ] in Serum or Plasma 6.4-8.9 [facility] RBC Auto (Bld) [#/Vol]Ordere d By: Luis Goins on 08-01-2024 RBC (Bld) [#/Vol] Erythrocytes [#/volu me] in Blood by Automated count 3.60-5.00 [facility] Respiratory specimen influen za A virus, influenza B virus, respiratory syncytical virOrdered By: Luis Goins on 08-01-2024 SARS-CoV-2 (COVID-19) RNA LISBETH+probe Ql (Unsp spec) Respiratory specimen influenza A virus, influenza B virus, respiratory syncytical vir [facility] Serum or plasma albumin/glob ulin mass ratioOrdered By: Luis Goins on 08-01-2024 Albumin/Globulin [Mass ratio] Serum or plasma albumin/globulin mass ratio [facility] Serum or plasma anion gap de terminationOrdered By: Luis Goins on 08-01-2024 Anion gap [Moles/Vol] Serum or plasma an ion gap determination 6.0-15.0 [facility] Sodium [Moles/volume] in Ser um or PlasmaOrdered By: Luis Goins on 08-01-2024 Sodium [Moles/Vol] Sodium [Moles/volume ] in Serum or Plasma 136-145 [facility] Specific gravity Test strip (U) [Rel density]Ordered By: Luis Goins on 08-01-2024 Specific gravity (U) [Rel density] Specific gravity of Urine by Test strip 1.001-1.03 0 [facility] Urea nitrogen [Mass/volume] in Serum or PlasmaOrdered By: Luis Goins 08-01-2024 Urea nitrogen [Mass/Vol] Urea nitrogen [Mass/volume] in Serum or Plasma 7-25 [facility] Urobilinogen Test strip (U) [Mass/Vol]Ordered By: Luis Goins on 08-01-2024 Urobilinogen (U) [Mass/Vol] Urobilinogen [Mass/volume] in Urine by Test strip Normal [facility] WBC Auto (Bld) [#/Vol]Ordere d By: Luis Goins on 08-01-2024 WBC (Bld) [#/Vol] Leukocytes [#/volume ] in Blood by Automated count Low 3.8-11.6 [facility] X-ray reportOrdered By: Larry Heath on 08-01-2024 Study report [facility] [place] [address] [place] [address] XRay Report Signed Patient: Brittanie Garcia MR# : [id number] : 1985 Acct:[id number] Age/Sex: 39 / F ADM Date: 5 Loc: ER Room: Type: [facility] ER Attending Dr: Copies to: Luis Goins DO~ Ordering Provider: Luis Goins DO Date of Service: 08/01/24 XR/XR chest 2V*: Upper Respiratory Infection ([id number]) XR/XR lumbar spine 2-3V*: Upper Respiratory Infection [...] Heath Jr., D.O.08/01/2024 9:17 AM Dictation Location: [place] [address] Transcribed By: [facility] 08/01/24 0917 Dictated By: Prince Heath Jr, DO 08/01/24 0916 Signed By: 08/01/24 09 [facility] XR lumbar spine 2-3V*on 07-19 XR lumbar spine 2-3V* [facility] [place] [address] [place] [address] XRay Report Signed Patient: Brittanie Garcia MR#: [id number] : 1985 Acct:[id number] Age/Sex: 39 / F ADM Date: 08/01/24 Loc: ER Room: Type: [facility] ER Attending Dr: Copies to: Luis Goins DO Ordering Provider: Luis Goisn DO Date of Service: 08/01/24 XR/XR chest 2V*: Upper Respiratory Infection ([id number]) XR/XR lumbar spine 2-3V*: Upper Respiratory Infection [...] Heath Jr., D.O.08/01/2024 9:17 AM Dictation Location: [place] [address] Transcribed By: [facility] 08/01/24 0917 Dictated By: Prince Heath Jr, DO 08/01/24 0916 Signed By: 08/01/24 0917 Normal [facility] pH Test strip (U)Ordered By: Luis Goins on 08-01-2024 pH (U) pH of Urine by Test strip 5.0-9.0 [facility] CNOVon 07-30-2024 CNOV Office Visit ([facility] ) BRITTANIE GARCIA ([id number]) 1985 F Date Time Provider Department 07/30/24 4:30 PM HARMAN SULLIVAN [facility] During your visit today, we recorded the [...] brought in by patient? No Lot #: [id number] Exp: 09/2026 Dilution: 5 units/0.1 ml (100 [...] Optional follow pain # units L R Shuttle Threader 10 units divided in 2 sites [id number] [...] Harman Sullivan MD Referring Provider: HARMAN SULLIVAN [[id number]] Allergies As of Date: 07/30/2024 Noted Allergy [...] for Encounter Date Provider Department Center 07/30/2024 [id number], TED [facility] Encounter Status:Closed by HARMAN SULLIVAN on 07/30/24 Normal [facility] Alanine aminotransferase [En zymatic activity/volume] in Serum or PlasmaOrdered By: Babar Singh on 06-19-2024 ALT [Catalytic activity/Vol] Alanine aminotransferase [Enzymatic activity/volume] in Serum or Plasma High 7-52 [facility] Albumin [Mass/volume] in Ser um or Plasma by Bromocresol green (BCG) dye binding methoOrdered By: Babar Singh on 06-19-2024 Albumin BCG dye [Mass/Vol] Albumin [Mass/volume] in Serum or Plasma by Bromocresol green (BCG) dye binding metho 3.5-5.7 [facility] Alkaline phosphatase [Enzyma tic activity/volume] in Serum or PlasmaOrdered By: Babar Singh on 06-19-2024 ALP [Catalytic activity/Vol] Alkaline phosphatase [Enzymatic activity/volume] in Serum or Plasma 34-104 [facility] Appearance of UrineOrdered B y: PROVIDER TEMP on 06-19-2024 Appearance (U) Urine appearance Abnormal Clear [facility] Aspartate aminotransferase [ Enzymatic activity/volume] in Serum or PlasmaOrdered By: Babar Singh on 06-19-2024 AST [Catalytic activity/Vol] Aspartate aminotransferase [Enzymatic activity/volume] in Serum or Plasma High 13-39 [facility] Bacteria [Presence] in Urine by AutomatedOrdered By: PROVIDER TEMP on 06-19-2024 Bacteria Auto Ql (U) Bacteria [Presence] in Urine by Automated None Seen [facility] Basophils Auto (Bld) [#/Vol] Ordered By: Babar Singh on 06-19-2024 Basophils (Bld) [#/Vol] Automated basophil count 0.0-0.2 [facility] Basophils/100 WBC Auto (Bld) Ordered By: Babar Singh on 06-19-2024 Basophils/100 WBC (Bld) Automated basophil % . [facility] Bilirubin Test strip Ql (U)O rdered By: PROVIDER TEMP on 06-19-2024 Bilirubin Ql (U) Bilirubin.total [Pre sence] in Urine by Test strip Negative [facility] Bilirubin.total [Mass/volume ] in Serum or PlasmaOrdered By: Babar Singh on 06-19-2024 Bilirubin [Mass/Vol] Bilirubin.total [Mass/volume] in Serum or Plasma 0.3-1.0 [facility] Calcium [Mass/volume] in Ser um or PlasmaOrdered By: Babar Singh on 06-19-2024 Calcium [Mass/Vol] Calcium [Mass/volume ] in Serum or Plasma 8.6-10.3 [facility] Carbon dioxide, total [Moles /volume] in Serum or PlasmaOrdered By: Babar Singh on 06-19-2024 CO2 [Moles/Vol] Carbon dioxide, tota l [Moles/volume] in Serum or Plasma 21.0-31.0 [facility] Chloride [Moles/volume] in S leticia or PlasmaOrdered By: Babar Singh on 06-19-2024 Chloride [Moles/Vol] Chloride [Moles/vol ume] in Serum or Plasma 98-107 [facility] Color Auto (U)Ordered By: IGLESIA SINGH on 06-19-2024 Color (U) Color of Urine by Auto Yellow [facility] Complete Blood Count Auto Di ffon 06-19-2024 Basophils (Bld) [#/Vol] 0.0 10*3/uL Normal 0.0-0.2 [facility] Comment on above: Result Comment: PERF ORMED BY: [facility] [address] [place] [id number] PATHOLOGIST SENIOR CLINICAL STUDY MANAGER RAFIA LOPEZ M.D. Performed By: #### C K, HS TROP, CBC, CMP ####[place] [id number] [place] Basophils/100 WBC (Bld) 0.3 % Normal . [facility] Comment on above: Performed By: #### C K, HS TROP, CBC, CMP ####[facility] [place] [id number] [facility] Eosinophils (Bld) [#/Vol] 0.1 10*3/uL Normal 0.0-0.45 [facility] Comment on above: Performed By: #### C K, HS TROP, CBC, CMP ####[address] Eosinophils/100 WBC (Bld) 1.4 % Normal . [facility] Comment on above: Performed By: #### C K, HS TROP, CBC, CMP ####[address] Erythrocyte distribution width (RBC) [Ratio] 13.7 % Normal 11.9-15.3 [facility] Comment on above: Performed By: #### C K, HS TROP, CBC, CMP ####[address] Hematocrit (Bld) [Volume fraction] 41.7 % Normal 34.0-46.4 [facility] Comment on above: Performed By: #### C K, HS TROP, CBC, CMP ####[address] Hemoglobin (Bld) [Mass/Vol] 14.0 g/dL Normal 11.8-15.4 [facility] Comment on above: Performed By: #### C K, HS TROP, CBC, CMP ####[address] Lymphocytes (Bld) [#/Vol] 1.4 10*3/uL Normal 1.00-4.8 [facility] Comment on above: Performed By: #### C K, HS TROP, CBC, CMP ####[address] Lymphocytes/100 WBC (Bld) 15.4 % Normal . [facility] Comment on above: Performed By: #### C K, HS TROP, CBC, CMP ####[address] MCH (RBC) [Entitic mass] 29.2 pg Normal 24.7-34.3 [facility] Comment on above: Performed By: #### C K, HS TROP, CBC, CMP ####[address] MCV (RBC) [Entitic vol] 87.0 fL Normal 80-100 [facility] Comment on above: Performed By: #### C K, HS TROP, CBC, CMP ####[address] Mean Corpuscular HGB Conc 33.6 g/dL Normal 32.0-35.0 [facility] Comment on above: Performed By: #### C K, HS TROP, CBC, CMP ####[address] Monocytes (Bld) [#/Vol] 0.4 10*3/uL Normal 0.0-0.8 [facility] Comment on above: Performed By: #### C K, HS TROP, CBC, CMP ####[address] Monocytes/100 WBC (Bld) 19.28 % Normal 0.00-20.00 [facility] Comment on above: Performed By: #### C K, HS TROP, CBC, CMP ####[address] Monocytes/100 WBC (Bld) 4.5 % Normal . [facility] Comment on above: Performed By: #### C K, HS TROP, CBC, CMP ####[address] Neutrophils (Bld) [#/Vol] 7.3 10*3/uL Normal 1.8-7.7 [facility] Comment on above: Performed By: #### C K, HS TROP, CBC, CMP ####[address] Neutrophils/100 WBC (Bld) 78.4 % Normal . [facility] Comment on above: Performed By: #### C K, HS TROP, CBC, CMP ####[address] NRBC% 0.1 /100{WBC} Normal 0-0.5 [facility] Comment on above: Performed By: #### C K, HS TROP, CBC, CMP ####[address] Platelet mean volume (Bld) [Entitic vol] 7.9 fL Normal 6.3-10.7 [facility] Comment on above: Performed By: #### C K, HS TROP, CBC, CMP ####[address] Platelets (Bld) [#/Vol] 251 10*3/uL Normal 150-450 [facility] Comment on above: Performed By: #### C K, HS TROP, CBC, CMP ####[address] RBC (Bld) [#/Vol] 4.79 10*6/uL Normal 3.60-5.00 [facility] Comment on above: Performed By: #### C K, HS TROP, CBC, CMP ####[address] WBC (Bld) [#/Vol] 9.3 10*3/uL Normal 3.8-11.6 [facility] Comment on above: Performed By: #### C K, HS TROP, CBC, CMP ####[address] Comprehensive Metabolic Pane pedro 06-19-2024 Albumin [Mass/Vol] 4.4 g/dL Normal 3.5-5.7 [facility] Comment on above: Performed By: #### C K, HS TROP, CBC, CMP ####[address] Albumin/Globulin [Mass ratio] 1.5 {ratio} Normal [facility] Comment on above: Performed By: #### C K, HS TROP, CBC, CMP ####[address] ALP [Catalytic activity/Vol] 87 U/L Normal 34-104 [facility] Comment on above: Performed By: #### C K, HS TROP, CBC, CMP ####[place] [id number] [facility] ALT [Catalytic activity/Vol] 135 U/L High 7-52 [facility] Comment on above: Performed By: #### C K, HS TROP, CBC, CMP ####[place] [id number] [facility] Anion gap [Moles/Vol] 12.0 mmol/L Normal 6.0-15.0 [facility] Comment on above: Performed By: #### C K, HS TROP, CBC, CMP ####[place] [id number] [facility] AST [Catalytic activity/Vol] 80 U/L High 13-39 [facility] Comment on above: Performed By: #### C K, HS TROP, CBC, CMP ####[address] Bilirubin [Mass/Vol] 0.7 mg/dL Normal 0.3-1.0 [facility] Comment on above: Performed By: #### C K, HS TROP, CBC, CMP ####[place] [id number] [facility] Calcium [Mass/Vol] 9.2 mg/dL Normal 8.6-10.3 [facility] Comment on above: Performed By: #### C K, HS TROP, CBC, CMP ####[place] [id number] [facility] Chloride [Moles/Vol] 104 mmol/L Normal 98-107 [facility] Comment on above: Performed By: #### C K, HS TROP, CBC, CMP ####[place] [id number] [facility] CO2 [Moles/Vol] 24.9 mmol/L Normal 21.0-31.0 [facility] Comment on above: Performed By: #### C K, HS TROP, CBC, CMP ####[place] [id number] [facility] Creatinine [Mass/Vol] 0.87 mg/dL Normal 0.60-1.20 [facility] Comment on above: Performed By: #### C K, HS TROP, CBC, CMP ####[place] [id number] [place] [id number] [facility] Creatinine Clr Calc Pharmacy 83.38 Normal [facility] Comment on above: Result Comment: PERF ORMED BY: [facility] [address] [place] [address] PATHOLOGIST SENIOR CLINICAL STUDY MANAGER RAFIA LOPEZ M.D. Performed By: #### C K, HS TROP, CBC, CMP ####[place] [id number] [facility] GFR/1.73 sq M.predicted MDRD (S/P/Bld) [Vol rate/Area] mL/min/{1.73_m2} Normal [facility] Comment on above: Performed By: #### C K, HS TROP, CBC, CMP ####[address] Globulin (S) [Mass/Vol] 3.0 g/dL Normal [facility] Comment on above: Performed By: #### C K, HS TROP, CBC, CMP ####[address] Glucose [Mass/Vol] 90 mg/dL Normal 70-100 [facility] Comment on above: Result Comment: [facility] Glucose Reference Range is dependent on time and content of last meal. Glucose of more than 200 mg/dL in a nonstressed, ambulatory subject supports the diagnosis of Diabetes Mellitus. ADA recommended reference range Performed By: #### C K, HS TROP, CBC, CMP ####[place] [id number] [facility] Potassium [Moles/Vol] 3.9 mmol/L Normal 3.5-5.1 [facility] Comment on above: Performed By: #### C K, HS TROP, CBC, CMP ####[place] [id number] [facility] Protein [Mass/Vol] 7.4 g/dL Normal 6.4-8.9 [facility] Comment on above: Performed By: #### C K, HS TROP, CBC, CMP ####[address] Sodium [Moles/Vol] 137 mmol/L Normal 136-145 [facility] Comment on above: Performed By: #### C K, HS TROP, CBC, CMP ####[place] [id number] [facility] Urea nitrogen [Mass/Vol] 14 mg/dL Normal 7-25 [facility] Comment on above: Performed By: #### C K, HS TROP, CBC, CMP ####[place] [id number] [facility] Creatine Kinaseon 06-19-2024 CK [Catalytic activity/Vol] 51 U/L Normal [facility] Comment on above: Performed By: #### C K, HS TROP, CBC, CMP ####[address] Creatine kinase [Enzymatic a ctivity/volume] in Serum or PlasmaOrdered By: Babar Singh on 06-19-2024 CK [Catalytic activity/Vol] Creatine kinase [Enzymatic activity/volume] in Serum or Plasma [facility] Creatinine [Mass/volume] in Serum or PlasmaOrdered By: Babar Singh on 06-19-2024 Creatinine [Mass/Vol] Creatinine [Mass/v olume] in Serum or Plasma 0.60-1.20 [facility] Dipstick and Microscopicon 0 06-19-2024 Appearance (U) Cloudy Critically abnormal Clear [facility] Comment on above: Order Comment: Name Collection Type:: Clean-Voided Midstream Performed By: #### A DDONUAPLUS ####[place] [id number] [facility] Bacteria,Urine Rare Normal None Seen [facility] Comment on above: Order Comment: Name Collection Type:: Clean-Voided Midstream Performed By: #### A DDONUAPLUS ####[place] [id number] [facility] Bilirubin,Urine Negative Normal Negative [facility] Comment on above: Order Comment: Name Collection Type:: Clean-Voided Midstream Performed By: #### A DDONUAPLUS ####[place] [id number] [facility] Color (U) Yellow Normal Yellow [facility] Comment on above: Order Comment: Name Collection Type:: Clean-Voided Midstream Performed By: #### A DDONUAPLUS ####[place] [id number] [facility] Glucose Ql (U) Normal Normal Normal [facility] Comment on above: Order Comment: Name Collection Type:: Clean-Voided Midstream Performed By: #### A DDONUAPLUS ####[address] Hyaline Casts,Urine None Normal 0-8 [facility] Comment on above: Order Comment: Name Collection Type:: Clean-Voided Midstream Performed By: #### A DDONUAPLUS ####[place] [id number] [facility] Ketones Ql (U) 1+ High Negative [facility] Comment on above: Order Comment: Name Collection Type:: Clean-Voided Midstream Performed By: #### A DDONUAPLUS ####[place] [id number] [facility] Leukocyte esterase Test strip Ql (U) 3+ High Negative [facility] Comment on above: Order Comment: Name Collection Type:: Clean-Voided Midstream Performed By: #### A DDONUAPLUS ####[place] [id number] [facility] Mucus,Urine 2+ Critically abnormal [facility] Comment on above: Order Comment: Name Collection Type:: Clean-Voided Midstream Result Comment: PERF ORMED BY: [facility] [address] [place] [address] PATHOLOGIST SENIOR CLINICAL STUDY MANAGER RAFIA LOPEZ M.D. Performed By: #### A DDONUAPLUS ####[address] Nitrite,Urine Negative Normal Negative [facility] Comment on above: Order Comment: Name Collection Type:: Clean-Voided Midstream Performed By: #### A DDONUAPLUS ####[address] Occult Blood,Urine Negative Normal Negative [facility] Comment on above: Order Comment: Name Collection Type:: Clean-Voided Midstream Result Comment: PERF ORMED BY: [facility] [address] [place] [address] PATHOLOGIST SENIOR CLINICAL STUDY MANAGER RAFIA LOPEZ M.D. Performed By: #### A DDONUAPLUS ####[address] pH (U) 5.5 [pH] Normal 5.0-9.0 [facility] Comment on above: Order Comment: Name Collection Type:: Clean-Voided Midstream Performed By: #### A DDONUAPLUS ####[address] Protein,Urine Trace High Negative [facility] Comment on above: Order Comment: Name Collection Type:: Clean-Voided Midstream Performed By: #### A DDONUAPLUS ####[address] RBC,Urine 5 [HPF] High 0-4 [facility] Comment on above: Order Comment: Name Collection Type:: Clean-Voided Midstream Performed By: #### A DDONUAPLUS ####[address] Specificy [place],Urine 1.023 Normal 1.001-1.03 0 [facility] Comment on above: Order Comment: Name Collection Type:: Clean-Voided Midstream Performed By: #### A DDONUAPLUS ####[address] Squamous Epithelial Cell,Urine 10 [HPF] High 0-2 [facility] Comment on above: Order Comment: Name Collection Type:: Clean-Voided Midstream Performed By: #### A DDONUAPLUS ####[facility] [id number] Urobilinogen,Urine Normal Normal Normal [facility] Comment on above: Order Comment: Name Collection Type:: Clean-Voided Midstream Performed By: #### A DDONUAPLUS ####[facility] [id number] [place] [id number] [facility] WBC,Urine 3 [HPF] Normal 0-4 [facility] Comment on above: Order Comment: Name Collection Type:: Clean-Voided Midstream Performed By: #### A DDONUAPLUS ####[place] [id number] ECG 12 lead ECGon 06-19-2024 ECG 12 lead ECG [facility] [place] [address] [place] [address] Electrocardiograph Report Signed Patient: Brittanie Garcia MR#: [id number] : 1985 Acct:[id number] Age/Sex: 39 / F ADM Date: 06/19/24 Loc: ER Room: Type: [facility] ER Attending Dr: Ordering Provider: Babar [...] was found Confirmed by LIAM RANDLE DO ([id number]) on 06/19/2024 7:59:22 PM Referred By: Electronically Signed By: LIAM RANDLE DO Transcribed By: MUS Signed By Liam Randle DO 06/19 Normal [facility] Eosinophils Auto (Bld) [#/Vo l]Ordered By: Babar Singh on 06-19-2024 Eosinophils (Bld) [#/Vol] Automated eosinophil count 0.0-0.45 [facility] Eosinophils/100 WBC Auto (Bl d)Ordered By: Babar Singh on 06-19-2024 Eosinophils/100 WBC (Bld) Automated eosinophil % . [facility] Epithelial cells.squamous [# /area] in Urine sediment by Automated countOrdered By: NOLVIA SINGH on 06-19-2024 Epithelial cells.squamous Auto (Urine sed) [#/Area] Epithelial cells.squamous [#/area] in Urine sediment by Automated count High 0-2 [facility] Erythrocyte distribution wid th Auto (RBC) [Ratio]Ordered By: Babar Singh on 06-19-2024 Erythrocyte distribution width (RBC) [Ratio] Erythrocyte distribution width [Ratio] by Automated count 11.9-15.3 [facility] Erythrocytes [#/area] in Uri ne sediment by Automated countOrdered By: NOLVIA SINGH on 06-19-2024 RBC Auto (Urine sed) [#/Area] Erythrocytes [#/area] in Urine sediment by Automated count High 0-4 [facility] Globulin Calc (S) [Mass/Vol] Ordered By: Babar Singh on 06-19-2024 Globulin (S) [Mass/Vol] Serum globulin measurement by calculation (mass/volume) [facility] Glucose Glucometer (BldC) [M ass/Vol]Ordered By: NOLVIA SINGH on 06-19-2024 Glucose [Mass/Vol] Capillary blood gluc ose measurement by glucometer (mass/volume) [facility] Comment on above: Random Glucose Refer ence Range is dependent on time and content of last meal. Glucose of more than 200 mg/dL in a nonstressed, ambulatory subject supports the diagnosis of Diabetes Mellitus. Glucose Poct Glucometerson 0 06-19-2024 Commemt1 Normal [facility] Comment on above: Result Comment: Glu2 : WILL NOTIFY DR/RN Performed By: #### G LULS #### Point of Care testing , Commemt2 Cleaned Meter Normal [facility] Comment on above: Result Comment: PERF ORMED BY: [facility] [address] [place] [address] PATHOLOGIST SENIOR CLINICAL STUDY MANAGER RAFIA LOPEZ M.D. Performed By: #### G LULS #### Point of Care testing , Glucose [Mass/Vol] 120 mg/dL Normal [facility] Comment on above: Result Comment: [place] om Glucose Reference Range is dependent on time and content of last meal. Glucose of more than 200 mg/dL in a nonstressed, ambulatory subject supports the diagnosis of Diabetes Mellitus. Performed By: #### G LULS #### Point of Care testing , Glucose [Mass/volume] in Ser um or PlasmaOrdered By: Babar Singh on 06-19-2024 Glucose [Mass/Vol] Glucose [Mass/volume ] in Serum or Plasma 70-100 [facility] Comment on above: ADA recommended [...] [Mass/volume] in Urine by Test strip Normal [facility] Hematocrit Auto (Bld) [Volum e fraction]Ordered By: Babar Singh on 06-19-2024 Hematocrit (Bld) [Volume fraction] Hematocrit [Volume Fraction] of Blood by Automated count 34.0-46.4 [facility] Hemoglobin Test strip Ql (U) Ordered By: NOLVIA SINGH on 06-19-2024 Hemoglobin Ql (U) Hemoglobin [Presence ] in Urine by Test strip Negative [facility] Hemoglobin [Mass/volume] in BloodOrdered By: Babar Singh on 06-19-2024 Hemoglobin (Bld) [Mass/Vol] Hemoglobin [Mass/volume] in Blood 11.8-15.4 [facility] Hyaline casts [#/area] in Ur ine sediment by Automated countOrdered By: PROVIDER SAMANTHA on 06-19-2024 Hyaline casts Auto (Urine sed) [#/Area] Hyaline casts [#/area] in Urine sediment by Automated count 0-8 [facility] Ketones Test strip Ql (U)Ord ered By: PROVIDER SAMANTHA on 06-19-2024 Ketones Ql (U) Ketones [Presence] i n Urine by Test strip High Negative [facility] Leukocyte esterase [Presence ] in Urine by Test stripOrdered By: PROVIDER TEMGeorges on 06-19-2024 Leukocyte esterase Test strip Ql (U) Leukocyte esterase [Presence] in Urine by Test strip High Negative [facility] Leukocytes [#/area] in Urine sediment by Automated countOrdered By: PROVIDER SAMANTHA on 06-19-2024 WBC Auto (Urine sed) [#/Area] Leukocytes [#/area] in Urine sediment by Automated count 0-4 [facility] Leukocytes [#/volume] correc harman for nucleated erythrocytes in Blood by Automated counOrdered By: Babar Singh on 06-19-2024 WBC corrected for nucl RBC Auto (Bld) [#/Vol] Leukocytes [#/volume] corrected for nucleated erythrocytes in Blood by Automated coun 3.8-11.6 [facility] Lymphocytes Auto (Bld) [#/Vo l]Ordered By: Babar Singh on 06-19-2024 Lymphocytes (Bld) [#/Vol] Lymphocytes [#/volume] in Blood by Automated count 1.00-4.8 [facility] Lymphocytes/100 WBC Auto (Bl d)Ordered By: Babar Singh on 06-19-2024 Lymphocytes/100 WBC (Bld) Lymphocytes/100 leukocytes in Blood by Automated count . [facility] MCH Auto (RBC) [Entitic mass ]Ordered By: Babar Singh on 06-19-2024 MCH (RBC) [Entitic mass] MCH [Entitic mass] by Automated count 24.7-34.3 [facility] MCHC Auto (RBC) [Mass/Vol]Or dered By: Babar Singh on 06-19-2024 MCHC (RBC) [Mass/Vol] MCHC [Mass/volume] by Automated count 32.0-35.0 [facility] MCV Auto (RBC) [Entitic vol] Ordered By: Babar Singh on 06-19-2024 MCV (RBC) [Entitic vol] MCV [Entitic volume] by Automated count 80-100 [facility] Monocyte distribution width [Entitic volume] in Blood by AutomatedOrdered By: Babar Singh on 06-19-2024 Monocyte distribution width Auto (Bld) [Entitic vol] Monocyte distribution width [Entitic volume] in Blood by Automated 0.00-20.00 [facility] Monocytes Auto (Bld) [#/Vol] Ordered By: Babar Singh on 06-19-2024 Monocytes (Bld) [#/Vol] Automated blood monocyte count 0.0-0.8 [facility] Monocytes/100 WBC Auto (Bld) Ordered By: Babar Singh on 06-19-2024 Monocytes/100 WBC (Bld) Automated monocyte % . [facility] Mucus [Presence] in Urine by AutomatedOrdered By: PROVIDER TEMP on 06-19-2024 Mucus Auto Ql (U) Mucus [Presence] in Urine by Automated Abnormal [facility] Neutrophils Auto (Bld) [#/Vo l]Ordered By: Babar Singh on 06-19-2024 Neutrophils (Bld) [#/Vol] Neutrophils [#/volume] in Blood by Automated count 1.8-7.7 [facility] Neutrophils/100 WBC Auto (Bl d)Ordered By: Babar Singh on 06-19-2024 Neutrophils/100 WBC (Bld) Automated neutrophil % . [facility] Nitrite Test strip Ql (U)Ord ered By: PROVIDER TEMP on 06-19-2024 Nitrite Ql (U) Nitrite [Presence] i n Urine by Test strip Negative [facility] No Panel InformationOrdered By: Babar Singh on 06-19-2024 Estimated GFR (CKD-EPI) > 60.0 mL/Min [facility] Creatinine Clearance (Chem 83.38 [facility] No Panel InformationOrdered By: PROVIDER TEMP on 06-19-2024 Bedside Glucose #2 Comment Cleaned meter [facility] Bedside Glucose Comment See comment [facility] Comment on above: Glu2: WILL NOTIFY DR /RN Nucleated erythrocytes [Pres ence] in Blood by Automated countOrdered By: Babar Singh on 06-19-2024 Nucleated RBC Auto Ql (Bld) Nucleated erythrocytes [Presence] in Blood by Automated count 0-0.5 [facility] Platelet mean volume Auto (B ld) [Entitic vol]Ordered By: Babar Singh on 06-19-2024 Platelet mean volume (Bld) [Entitic vol] Platelet mean volume [Entitic volume] in Blood by Automated count 6.3-10.7 [facility] Platelets Auto (Bld) [#/Vol] Ordered By: Babar Singh on 06-19-2024 Platelets (Bld) [#/Vol] Platelets [#/volume] in Blood by Automated count 150-450 [facility] Potassium [Moles/volume] in Serum or PlasmaOrdered By: Babar Singh on 06-19-2024 Potassium [Moles/Vol] Potassium [Moles/v olume] in Serum or Plasma 3.5-5.1 [facility] Protein Test strip (U) [Mass /Vol]Ordered By: PROVIDER TEMGeorges on 06-19-2024 Protein (U) [Mass/Vol] Protein [Mass/vol ume] in Urine by Test strip High Negative [facility] Protein [Mass/volume] in Ser um or PlasmaOrdered By: Babar Singh on 06-19-2024 Protein [Mass/Vol] Protein [Mass/volume ] in Serum or Plasma 6.4-8.9 [facility] RBC Auto (Bld) [#/Vol]Ordere d By: Babar Singh on 06-19-2024 RBC (Bld) [#/Vol] Erythrocytes [#/volu me] in Blood by Automated count 3.60-5.00 [facility] Serum or plasma albumin/glob ulin mass ratioOrdered By: Babar Singh on 06-19-2024 Albumin/Globulin [Mass ratio] Serum or plasma albumin/globulin mass ratio [facility] Serum or plasma anion gap de terminationOrdered By: Babar Singh on 06-19-2024 Anion gap [Moles/Vol] Serum or plasma an ion gap determination 6.0-15.0 [facility] Sodium [Moles/volume] in Ser um or PlasmaOrdered By: Babar Singh on 06-19-2024 Sodium [Moles/Vol] Sodium [Moles/volume ] in Serum or Plasma 136-145 [facility] Specific gravity Test strip (U) [Rel density]Ordered By: PROVIDER TEMGeorges on 06-19-2024 Specific gravity (U) [Rel density] Specific gravity of Urine by Test strip 1.001-1.03 0 [facility] Troponin I High Sensitivityo n 06-19-2024 Troponin I High Sensitivity <3 Normal 0-15 [facility] Comment on above: Result Comment: The Troponin units of report have been changed to meet the Chest Pain Accreditation requirement, element EC5.M1l2. Troponin units are changed from pg/ml to ng/L. Also, the decimal is removed and results are in whole numbers. PERFORMED BY: [facility] [address] [id number] PATHOLOGIST SENIOR CLINICAL STUDY MANAGER RAFIA LOPEZ M.D. Performed By: #### C K, HS TROP, CBC, CMP ####[facility] [id number] [place] [id number] [facility] Troponin I.cardiac [Mass/vol ume] in Serum or Plasma by Detection limit <= 0.01 ng/Ordered By: Babar Singh on 06-19-2024 Troponin I.cardiac DL <= 0.01 ng/mL [Mass/Vol] Troponin I.cardiac [Mass/volume] in Serum or Plasma by Detection limit <= 0.01 ng/ 0-15 [facility] Comment on above: The Troponin units o f report have been changed to meet the Chest Pain Accreditation requirement, element EC5.M1l2. Troponin units are changed from pg/ml to ng/L. Also, the decimal is removed and results are in whole numbers. Urea nitrogen [Mass/volume] in Serum or PlasmaOrdered By: Babar Singh on 06-19-2024 Urea nitrogen [Mass/Vol] Urea nitrogen [Mass/volume] in Serum or Plasma 7-25 [facility] Urobilinogen Test strip (U) [Mass/Vol]Ordered By: PROVIDER SAMANTHA on 06-19-2024 Urobilinogen (U) [Mass/Vol] Urobilinogen [Mass/volume] in Urine by Test strip Normal [facility] WBC Auto (Bld) [#/Vol]Ordere d By: Babar Singh on 06-19-2024 WBC (Bld) [#/Vol] Leukocytes [#/volume ] in Blood by Automated count 3.8-11.6 [facility] pH Test strip (U)Ordered By: PROVIDER TEMGeorges on 06-19-2024 pH (U) pH of Urine by Test strip 5.0-9.0 [facility] Pedro 06-17-2024 L ------- Specimen: [id number] Received: 06/17/24 Status: MG Johnson Num: [id number] Spec Type: Surgical Subm Dr: Dano Pyle DO Tissues: A Breast Lumpectmy/Mass - Requiring Micros Eval of Margins (RT BREAST MASS @ 1 B Breast Lumpectmy/Mass - Requiring Micros Eval of Margins (RT BREAST MASS @ 7 Procedures: , Gross/Micro L5/2 Age/ Patient Sex Location Account Attending Physician Brittanie Garcia 39/F [place] [id number] Dano Pyle DO SPEC NUM: [id number] RECD: 06/17/24 STATUS: MG BRYN NUM: [id number] TACOS: 06/17/[address]: Dano Pyle DO ENTERED: 06/17/24 [facility] DR: SPEC TYPE: Surgical DEPT: S ENTERED BY: [id number] RECV BY: [id number] ORDERED: HE/13, Gross/Micro L5/2 ORDERED: HE/13, Gross/Micro [...] [id number] Received: 06/17/24 Status: JESSIEMary Johnson Num: [id number] Spec Type: Surgical Subm Dr: Dano Itzkowitz, DO Tissues: A Breast Lumpectmy/Mass - Requiring Micros Eval of Margins (RT BREAST MASS @ 1 B Breast Lumpectmy/Mass - Requiring Micros Eval of Margins (RT BREAST MASS @ 7 Procedures: MOISESMichael Chen/Mercedez L5/2 Patient: Brittanie Garcia [id number] (Continued) Specimen: [id number] Received: 06/17/24 (Continued) Signed (signature on file) Dany Fonseca MD 06/18/24 1427 Specimen: [id number] Received: 06/17/24 Status: MG Johnson Num: [id number] Spec Type: Surgical Subm Dr: Dano Pyle, DO Tissues: A Breast Lumpectmy/Mass - Requiring Micros Eval of Margins (RT BREAST MASS @ 1 B Breast Lumpectmy/Mass - Requiring Micros Eval of Margins (RT BREAST MASS @ 7 Procedures: , Gross/Micro L5/2 Patient: Brittanie Garcia [id number] (Continued) Specimen: [id number] Received: 06/17/24 (Continued) Clinical Information RT breast [...] Total fixation time: 8 hours (8, ns, [id number] A)J Part B is received in formalin labeled with the patients name, date of , and mass at (more content not included)... Normal [facility] CNOVon 01-30-2024 CNOV Office Visit ([facility] ) BRITTANIE GARCIA ([id number]) 1985 F Date Time Provider Department 01/30/24 2:00 PM HARMAN SULLIVAN [facility] During your visit today, we recorded the [...] brought in by patient? No Lot #: [id number] Exp: 03/2026 Dilution: 5 units/0.1 ml (100 [...] Optional follow pain # units L R Shuttle Threader 10 units divided in 2 sites [id number] [...] Harman Sullivan MD Referring Provider: HARMAN SULLIVAN [[id number]] Allergies As of Date: 01/30/2024 Noted Allergy [...] for Encounter Date Provider Department Center 01/30/2024 [id number], TED [facility] Encounter Status:Closed by LAURIEHARMAN on 01/30/24 Normal [facility] US breast RT limitedon 01-27 US breast RT limited [facility] [place] [address] [place] [address] Ultrasound Report Signed Patient: Brittanie Garcia MR#: [id number] : 1985 Acct:[id number] Age/Sex: 39 / F ADM Date: 01/28/24 Loc: [facility] Room: Type: [facility] Attending Dr: Dano Pyle DO Ordering [...] M.D.01/28/2024 8:30 AM Dictation Location: [facility] Tech: Alayna Choudhary Transcribed By: JADEN 01/28/24829 Dictated By: Binta Elaine MD 01/28/24811 Signed By: 01/28/24829 Normal [facility] Calcium [Mass/volume] in Ser um or PlasmaOrdered By: Dano Pyle on 05-01-2023 Calcium [Mass/Vol] 9.7 mg/dL 8.6-10.3 [facility] Carbon dioxide, total [Moles /volume] in Serum or PlasmaOrdered By: Dano Pyle on 05-01-2023 CO2 [Moles/Vol] 28.9 mmol/L 21.0-31.0 [facility] Chloride [Moles/volume] in S leticia or PlasmaOrdered By: Dano Pyle on 05-01-2023 Chloride [Moles/Vol] 105 mmol/L 98-107 [facility] Creatinine [Mass/volume] in Serum or PlasmaOrdered By: Dano Pyle on 05-01-2023 Creatinine [Mass/Vol] 0.75 mg/dL 0.60-1.20 [facility] Glucose [Mass/volume] in Ser um or PlasmaOrdered By: Dano Pyle on 05-01-2023 Glucose [Mass/Vol] 84 mg/dL 70-100 [facility] Comment on above: ADA recommended refe rence rangeRandom Glucose Reference Range is dependent on time and content of last meal. Glucose of more than 200 mg/dL in a nonstressed, ambulatory subject supports the diagnosis of Diabetes Mellitus. No Panel InformationOrdered By: Dano Pyle on 05-01-2023 Estimated GFR (CKD-EPI) > 60.0 mL/Min [facility] Creatinine Clearance (Chem N/A [facility] Potassium [Moles/volume] in Serum or PlasmaOrdered By: Dano Pyle on 05-01-2023 Potassium [Moles/Vol] 4.3 mmol/L 3.5-5.1 [facility] Serum or plasma anion gap de terminationOrdered By: Dano Pyle on 05-01-2023 Anion gap [Moles/Vol] 9.4 mmol/L 6.0-15.0 [facility] Sodium [Moles/volume] in Ser um or PlasmaOrdered By: Dano Pyle on 05-01-2023 Sodium [Moles/Vol] 139 mmol/L 136-145 [facility] Urea nitrogen [Mass/volume] in Serum or PlasmaOrdered By: Dano Pyle on 05-01-2023 Urea nitrogen [Mass/Vol] 14 mg/dL 7-25 [facility] Basophils Auto (Bld) [#/Vol] Ordered By: Robert Menchaca on 02-07-2023 Basophils (Bld) [#/Vol] 0.0 10*3/uL 0.0-0.2 [facility] Basophils/100 WBC Auto (Bld) Ordered By: Robert Menchaca on 02-07-2023 Basophils/100 WBC (Bld) 0.4 % . [facility] Eosinophils Auto (Bld) [#/Vo l]Ordered By: Robert Menchaca on 02-07-2023 Eosinophils (Bld) [#/Vol] 0.1 10*3/uL 0.0-0.45 [facility] Eosinophils/100 WBC Auto (Bl d)Ordered By: Robert Menchaca on 02-07-2023 Eosinophils/100 WBC (Bld) 1.2 % . [facility] Erythrocyte distribution wid th Auto (RBC) [Ratio]Ordered By: Robert Menchaca on 02-07-2023 Erythrocyte distribution width (RBC) [Ratio] 13.4 % 11.9-15.3 [facility] Ferritin [Mass/volume] in Se rum or PlasmaOrdered By: Robert Menchaca on 02-07-2023 Ferritin [Mass/Vol] 110.5 ng/mL 11.0-306.8 [facility] Hematocrit Auto (Bld) [Volum e fraction]Ordered By: Robert Menchaca on 02-07-2023 Hematocrit (Bld) [Volume fraction] 42.6 % 34.0-46.4 [facility] Hemoglobin [Mass/volume] in BloodOrdered By: Robert Menchaca on 02-07-2023 Hemoglobin (Bld) [Mass/Vol] 14.2 g/dL 11.8-15.4 [facility] Leukocytes [#/volume] correc harman for nucleated erythrocytes in Blood by Automated counOrdered By: Robert Menchaca on 02-07-2023 WBC corrected for nucl RBC Auto (Bld) [#/Vol] 7.0 10*3/uL 3.8-11.6 [facility] Lymphocytes Auto (Bld) [#/Vo l]Ordered By: Robert Menchaca on 02-07-2023 Lymphocytes (Bld) [#/Vol] 2.5 10*3/uL 1.00-4.8 [facility] Lymphocytes/100 WBC Auto (Bl d)Ordered By: Robert Menchaca on 02-07-2023 Lymphocytes/100 WBC (Bld) 35.4 % . [facility] MCH Auto (RBC) [Entitic mass ]Ordered By: Robert Menchaca on 02-07-2023 MCH (RBC) [Entitic mass] 28.7 pg 24.7-34.3 [facility] MCHC Auto (RBC) [Mass/Vol]Or dered By: Robert Menchaca on 02-07-2023 MCHC (RBC) [Mass/Vol] 33.3 g/dL 32.0-35.0 [facility] MCV Auto (RBC) [Entitic vol] Ordered By: Robert Menchaca on 02-07-2023 MCV (RBC) [Entitic vol] 86.2 fL 80-100 [facility] Monocytes Auto (Bld) [#/Vol] Ordered By: Robert Menchaca on 02-07-2023 Monocytes (Bld) [#/Vol] 0.5 10*3/uL 0.0-0.8 [facility] Monocytes/100 WBC Auto (Bld) Ordered By: Robert Menchaca on 02-07-2023 Monocytes/100 WBC (Bld) 6.5 % . [facility] Neutrophils Auto (Bld) [#/Vo l]Ordered By: Robert Menchaca on 02-07-2023 Neutrophils (Bld) [#/Vol] 4.0 10*3/uL 1.8-7.7 [facility] Neutrophils/100 WBC Auto (Bl d)Ordered By: Robert Menchaca on 02-07-2023 Neutrophils/100 WBC (Bld) 56.5 % . [facility] Nucleated erythrocytes [Pres ence] in Blood by Automated countOrdered By: Robert Menchaca on 02-07-2023 Nucleated RBC Auto Ql (Bld) 0.1 /100{WBC} 0-0.5 [facility] Platelet mean volume Auto (B ld) [Entitic vol]Ordered By: Robert Menchaca on 02-07-2023 Platelet mean volume (Bld) [Entitic vol] 8.3 fL 6.3-10.7 [facility] Platelets Auto (Bld) [#/Vol] Ordered By: Robert Menchaca on 02-07-2023 Platelets (Bld) [#/Vol] 223 10*3/uL 150-450 [facility] RBC Auto (Bld) [#/Vol]Ordere d By: Robert Menchaca on 02-07-2023 RBC (Bld) [#/Vol] 4.94 10*6/uL 3.60-5.00 [facility] WBC Auto (Bld) [#/Vol]Ordere d By: Robert Menchaca on 02-07-2023 WBC (Bld) [#/Vol] 7.0 10*3/uL 3.8-11.6 [facility] Echocardiogramon 12-28-[address], [address] [place] [address] TRANSTHORACIC ECHOCARDIOGRAM REPORT Patient Name: BRITTANIE Rudd Physician: [id number] Saeed GARCIA MD Study Date: 12/28/2022 Referring SORAYA CAGE Physician: MRN/PID: [id number] PCP: Filiberto Ying Accession/Order#: [id number] [facility] Location: [place] Date of : 1985 Fellow: Gender: F Nurse: Admit Date: Ob/Gyn Physician: Lanny Padron [facility], T Height: 157.48 cm CC Report to: Weight: 74.84 kg Study Type: Echocardiogram BSA: 1.76 m2 Blood Pressure: 106 /70 mmHg Diagnosis/ICD: R00.0-Tachycardia, unspecified; X54-Xidnawp Indication: Hyperlipidemia, Overweight Procedure/CPT: Echo Complete w Full Doppler-09633 Study Detail: The following Echo studies were [...] 0.8 m/s (0.6-0.9m/s) PV Max P.4 mmHg [id number] Saeed Parada MD Electronically signed on 01/01/2023 at 2:35:[address] [facility] Office Visit (Cardiology)on 11-14-2022 Follow-up visit [...] Normal axis. Corrected QT interval 420 ms. KS interval 150 ms See signed ECG and check /Paceart. Imp / Plan Recurrent syncope, consistent with vasovagal etiology. Discussed mechanisms of syncope. Reviewed syncope brochure. Reviewed testing event monitor and tilt table te (more content not included)... Normal [facility] Office Visit (Cardiology)on 11-10-2022 Follow-up visit Diagnoses/Problems [...] Signs Recorded: 10Nov2022 09:01AMRecorded: 10Nov2022 08:58AM Systolic Qlzhsba87, LUE, Sitting Diastolic Nlcwfdc11, LUE, Sitting Systolic Lsqxrxfq730, LUE, Standing Diastolic Qpcvvran38, LUE, Standing Heart Rate92, L Radial Sxgnsgsk32, LUE, Sitting Glxttogej10, LUE, Sitting Height5 ft 2 in Nzzmgb975 lb BMI Ooyrabbnhy92.63 kg/m2 BSA Calculated1.75 Tobacco Useb) No Falls [...] Nov 10 2022 11:29AM EST (Author) Normal [employer] No Panel Informationon 10-23 -[facility] Heart-Sandu ilan 250 DO Work Phone: Cardiovasc Arrhythmia Result son 09-29-2022 Cardiovasc Arrhythmia Results Reason For Visit Event Monitor: BRITTANIE is here for the application of a 30 day event monitor in office., Diagnosis: Syncope,Fainting Ordering Physician: Dr. Saeed Castellanos, Enrollment sent to: [employer] Monitor number [id number] applied. Holter monitor printed and placed on [...] Nov 02 2022 9:05AM EST (Author) Normal [employer] Office Visit (Cardiology)on 09-20-2022 Follow-up visit Diagnoses/Problems [...] no rebound tachycardia. Recommendations, obtain [facility] [...] negative for complaint. Vitals Vital Signs Recorded: [id number] 10:01AMRecorded: 92Mll1242 09:59AM Systolic Bufqh433 Diastolic Lying88 Systolic Gpirpuh637 Diastolic Jlijdjm91 Systolic Avdigzkw302 Diastolic Plgnkunk46 Heart Rate85, Apical Wshyhapl232, LUE, Supine Cwyexxoqh20, LUE, Supine Height5 ft 2 in Ynsbla712 lb BMI Gvhhyxqrcf43.36 kg/m2 BSA Calculated1.77 Tobacco Useb) No PHQ-2 #1. Ov (more content not included)... Normal [facility] Tobacco Screening.on 023 Adult depression screening assessment No [facility] HeartBuzzoo ilan 250 DO Work Phone: Tobacco use status CP b) No [facility]-Sandu ilan 250 DO Work Phone: MAGDA BY IFA WITH REFLEXon Nuclear Ab IF (S) [Titer] Negative Negative [facility] CCP ANTIBODY IGGon Cyclic citrullinated peptide IgG Qn <20 Units [facility] Cyclic citrullinated peptide IgG Qnon 07-31-2022 CCP Antibody IgG Qualitative Negative Negative [facility] C-REACTIVE PROTEIN (CRP)on 0 07-28-2022 CRP [Mass/Vol] <0.9 mg/dL [facility] CBC W Auto Differential pane l (Bld)on 07-28-2022 Basophils (Bld) [#/Vol] 0.03 10*3/uL <0.11 k/uL [facility] Basophils/100 WBC (Bld) 0.4 % [facility] Differential cell count method Nom (Bld) Auto [facility] Eosinophils (Bld) [#/Vol] 0.07 10*3/uL <0.46 k/uL [facility] Eosinophils/100 WBC (Bld) 0.9 % [facility] Erythrocyte distribution width (RBC) [Ratio] 13.0 % 11.5 - 15.0 % [facility] Hematocrit (Bld) [Volume fraction] 44.1 % 36.0 - 46.0 % [facility] Hemoglobin (Bld) [Mass/Vol] 14.3 g/dL 11.5 - 15.5 g/dL [facility] Immature granulocytes (Bld) [#/Vol] <0.10 k/uL [facility] Immature granulocytes/100 WBC (Bld) 0.3 % [facility] Lymphocytes (Bld) [#/Vol] 2.43 10*3/uL 1.00 - 4.00 k/uL [facility] Lymphocytes/100 WBC (Bld) 30.5 % [facility] MCH (RBC) [Entitic mass] 29.0 pg 26.0 - 34.0 pg [facility] MCHC (RBC) [Mass/Vol] 32.4 g/dL 30.5 - 36.0 g/dL [facility] MCV (RBC) [Entitic vol] 89.5 fL 80.0 - 100.0 fL [facility] Monocytes (Bld) [#/Vol] 0.49 10*3/uL <0.87 k/uL [facility] Monocytes/100 WBC (Bld) 6.1 % [facility] Neutrophils (Bld) [#/Vol] 4.93 10*3/uL 1.45 - 7.50 k/uL [facility] Neutrophils/100 WBC (Bld) 61.8 % [facility] Nucleated RBC (Bld) [#/Vol] <0.01 k/uL [facility] Nucleated RBC/100 WBC (Bld) [Ratio] 0.0 /100 WBC [facility] Platelet mean volume (Bld) [Entitic vol] 10.1 fL 9.0 - 12.7 fL [facility] Platelets (Bld) [#/Vol] 251 10*3/uL 150 - 400 k/uL [facility] RBC (Bld) [#/Vol] 4.93 10*6/uL 3.90 - 5.20 m/uL [facility] WBC (Bld) [#/Vol] 7.97 10*3/uL 3.70 - 11.00 k/uL [facility] Comprehensive metabolic 2000 panelon 07-28-2022 Albumin [Mass/Vol] 4.7 g/dL 3.9 - 4.9 g/dL [facility] ALP [Catalytic activity/Vol] 86 U/L 34 - 123 U/L [facility] ALT [Catalytic activity/Vol] 58 U/L High 7 - 38 U/L [facility] Anion gap [Moles/Vol] 12 mmol/L 9 - 18 mmol/L [facility] AST [Catalytic activity/Vol] 31 U/L 13 - 35 U/L [facility] Bilirubin [Mass/Vol] 0.4 mg/dL 0.2 - 1 .3 mg/dL [facility] Calcium [Mass/Vol] 10.0 mg/dL 8.5 - 10. 2 mg/dL [facility] Chloride [Moles/Vol] 105 mmol/L 97 - 10 5 mmol/L [facility] CO2 [Moles/Vol] 23 mmol/L 22 - 30 mmol/L [facility] Creatinine [Mass/Vol] 0.79 mg/dL 0.58 - 0.96 mg/dL [facility] Estimated Glomerular Filtration Rate 100 mL/min/1.73m >=60 mL/min/1.7 3m [facility] Glucose [Mass/Vol] 84 mg/dL 74 - 99 mg/dL [facility] Potassium [Moles/Vol] 4.1 mmol/L 3.7 - 5.1 mmol/L [facility] Protein [Mass/Vol] 7.7 g/dL 6.3 - 8.0 g/dL [facility] Sodium [Moles/Vol] 140 mmol/L 136 - 144 mmol/L [facility] Urea nitrogen [Mass/Vol] 12 mg/dL 7 - 21 mg/dL [facility] ESR Westergren method (Bld) [Velocity]on 07-28-2022 ESR (Bld) [Velocity] 5 mm/h 0 - 20 mm/hr [facility] No Panel Informationon 07-28 [facility] RHEUMATOID FACTOR BLon 07-28 Rheumatoid factor Qn <16 IU/mL [facility] XR CSPINE OBL FLEX_EXTon XR CSPINE [...] by: NAVNEET MONTERO Date: 2022-02-16 08:57 Normal [facility] Ferritin [Mass/volume] in Se rum or PlasmaOrdered By: Kenna Sheehan on 01-19-2022 Ferritin [Mass/Vol] 51.8 ng/mL 11-306.8 [facility] PAP ACOG PANEL 2: 30 to 65on 01-13-2022 . . Normal [facility] Comment on above: Result Comment: Perf ormed at: WB Performed By: #### [id number] #### [facility] [address] [place] [address] Dr. Lui Fonseca Age Gdln ACOG Testing 30-65 Normal [facility] Comment on above: Performed By: #### [id number] #### [facility] [address] [place] [address] Dr. Lui Fonseca DIAGNOSIS: Comment [facility] Comment on above: Result Comment: NEGA TIVE FOR INTRAEPITHELIAL LESION OR MALIGNANCY. Performed at: WB Performed By: #### [id number] #### [facility] [address] [place] [address] Dr. Lui Fonseca HPV Aptima Negative Normal Negative [facility] Comment on above: Result Comment: This nucleic acid amplification test detects fourteen high-risk HPV types (16,18,31,33,35,39,45,51,52,56,58,59,66,68) without differentiation. Performed at: =G Performed By: #### [id number] #### [facility] [address] [place] [address] Dr. Lui Fonseca Methodology: Comment Normal [facility] Comment on above: Result Comment: This liquid based ThinPrep(R) pap test was screened with the use of an image guided system. Performed at: WB Performed By: #### [id number] #### [facility] [address] [place] [address] Dr. Lui Fonseca Note: Comment [facility] Comment on above: Result Comment: The Pap smear is a screening test designed to aid in the detection of premalignant and malignant conditions of the uterine cervix. It is not a diagnostic procedure and should not be used as the sole means of detecting cervical cancer. Both false-positive and false-negative reports do occur. . Performed at: WB Performed By: #### [id number] #### [facility] [address] [place] [address] Dr. Lui Fonseca Performed by: Comment Normal [facility] Comment on above: Result Comment: Susan Alejandro, Supervisory Hinging Machine Operator (ASCP) Performed at: WB Performed By: #### [id number] #### [facility] [address] [place] [address] Dr. Lui Fonseca Specimen adequacy: Comment [facility] Comment on above: Result Comment: Sati sfactory for evaluation. No endocervical component is identified. Performed at: WB Performed By: #### [id number] #### [facility] [address] [place] [address] Dr. Lui Fonseca INSULINon 01-02-2022 Insulin 20.6 uIU/mL Normal 2.6-24.9 [facility] Comment on above: Performed By: #### I NSULIN #### [facility] [address] [place] [address] Dr. Lui Fonseca H PYLORI ANTIBODY IGGon 12-19 H. PYLORI IGG ABS 0.15 Index Value Normal 0.00-0.79 [facility] Comment on above: Result Comment: Nega tive <0.80 Equivocal 0.80 - 0.89 Positive >0.89 Performed By: #### H PYLLC #### [facility] [address] [place] [address] Dr. Lui Fonseca T4, T3U, FTI LABCORPon 01-01 Free Thyroxine Index 2.7 Normal 1.2-4.9 [facility] Comment on above: Performed By: #### T HYLC #### [facility] [address] [place] [address] Dr. Lui Fonseca T3 Uptake 30 % Normal 24-39 [facility] Comment on above: Performed By: #### T HYLC #### [facility] [address] [place] [address] Dr. Lui Fonseca T4 [Mass/Vol] 9.1 ug/dL Normal 4.5-12.0 [facility] Comment on above: Performed By: #### T HYLC #### [facility] [address] [place] [address] Dr. Lui Fonseca CBC AUTO DIFFon 12-31-2021 BASO # 0.0 103/ul Normal 0.0-0.1 [facility] Comment on above: Performed By: #### C BC #### [facility] [address] [place] [address] Dr. Lui Fonseca Basophils/100 WBC (Bld) 0.4 % Normal 0.2-2.0 [facility] Comment on above: Performed By: #### C BC #### [facility] [address] [place] [address] Dr. Lui Fonseca EO # 0.2 103/ul Normal 0.0-0.7 [facility] Comment on above: Performed By: #### C BC #### [facility] [address] [place] [address] Dr. Lui Fonseca Eosinophils/100 WBC (Bld) 2.8 % Normal 0.9-7.0 [facility] Comment on above: Performed By: #### C BC #### [facility] [address] [place] [address] Dr. Lui Fonseca Erythrocyte distribution width (RBC) [Ratio] 13.2 % Normal 11.0-15.0 [facility] Comment on above: Performed By: #### C BC #### [facility] [address] [place] [address] Dr. Lui Fonseca Hematocrit (Bld) [Volume fraction] 44.0 % Normal 36.0-48.0 [facility] Comment on above: Performed By: #### C BC #### [facility] [address] [place] [address] Dr. Lui Fonseca Hemoglobin (Bld) [Mass/Vol] 14.3 g/dL Normal 12.0-16.0 [facility] Comment on above: Performed By: #### C BC #### [facility] [address] [place] [address] Dr. Lui Fonseca IG # 0.01 10e3/ul Normal 0.00-0.03 [facility] Comment on above: Performed By: #### C BC #### [facility] [address] [place] [address] Dr. Lui Fonseca IG % 0.2 % Normal 0.0-0.5 [facility] Comment on above: Performed By: #### C BC #### [facility] [address] [place] [address] Dr. Lui Fonseca LYMPH # 2.3 103/ul Normal 1.2-3.8 [facility] Comment on above: Performed By: #### C BC #### [facility] [address] [place] [address] Dr. Lui Fonseca Lymphocytes/100 WBC (Bld) 41.6 % Normal 20.5-60.0 [facility] Comment on above: Performed By: #### C BC #### [facility] [address] [place] [address] Dr. Lui Fonseca MANUAL DIFF REQ NO Normal [facility] Comment on above: Performed By: #### C BC #### [facility] [address] [place] [address] Dr. Lui Fonseca MCH (RBC) [Entitic mass] 29.1 pg Normal 26.7-34.0 [facility] Comment on above: Performed By: #### C BC #### [facility] [address] [place] [address] Dr. Lui Fonseca MCHC (RBC) [Mass/Vol] 32.5 g/dL Normal 29.9-35.2 [facility] Comment on above: Performed By: #### C BC #### [facility] [address] [place] [address] Dr. Lui Fonseca MCV (RBC) [Entitic vol] 89.6 fL Normal 81.0-99.0 [facility] Comment on above: Performed By: #### C BC #### [facility] [address] [place] [address] Dr. Lui Fonseca MONO # 0.3 103/ul Normal 0.3-0.8 [facility] Comment on above: Performed By: #### C BC #### [facility] [address] [place] [address] Dr. Lui Fonseca Monocytes/100 WBC (Bld) 6.3 % Normal 1.7-12.0 [facility] Comment on above: Performed By: #### C BC #### [facility] [address] [place] [address] Dr. Lui Fonseca NEUT # 2.7 103/ul Normal 1.4-6.5 [facility] Comment on above: Performed By: #### C BC #### [facility] [address] [address] [address] Lui Fonseca Neutrophils/100 WBC (Bld) 48.7 % Normal 43.0-75.0 [facility] Comment on above: Performed By: #### C BC #### [facility] [address] [address] [address] Lui Fonseca Platelet mean volume (Bld) [Entitic vol] 9.5 fL Normal 9.5-13.5 [facility] Comment on above: Performed By: #### C BC #### [facility] [address] [address] [address] Lui Fonseca PLT 276 103/ul Normal 150-450 [facility] Comment on above: Performed By: #### C BC #### [facility] [address] [place] [address] Dr. Lui Fonseca RBC 4.91 106/ul Normal 4.20-5.40 [facility] Comment on above: Performed By: #### C BC #### [facility] [address] [address] [address] Lui Fonseca WBC 5.4 103/ul Normal 4.0-11.0 [facility] Comment on above: Performed By: #### C BC #### [facility] [address] [address] [address] Lui Fonseca GLYCOHEMOGLOBIN A1Con 2021 ADA RECOMMENDATION SEE BELOW Normal [facility] Comment on above: Result Comment: ADA RECOMMENDED LIMIT 4.0 - 6.0 ADA THERAPEUTIC TARGET < 7.0 ACTION SUGGESTED > 7.0 Performed By: #### A 1C ####[facility] [address] [id number]. Lui Fonseca Glucose [Mass/Vol] 97 mg/dL Normal [facility] Comment on above: Performed By: #### A 1C ####[facility] [address] [place] [id number]. Lui Fonseca HbA1c (Bld) [Mass fraction] 5.0 % Normal 4.5-6.2 [facility] Comment on above: Performed By: #### A 1C ####[facility] [address] [place], [place] [address]ZdDr. Lui Fonseca IRONon 12-31-2021 Iron [Mass/Vol] 101.0 ug/dL Normal 50.0-170.0 [facility] Comment on above: Performed By: #### I EDMOND #### [facility] [address] [place], [place] [address] Dr. Lui Fonseca LIPID PROFILEon 12-31-2021 CHOL-HDL RATIO NORM SEE BELOW Normal [facility] Comment on above: Result Comment: 3.3 - 4.4 LOW RISK 4.4 - 7.1 AVERAGE RISK 7.1 - 11.0 MODERATE RISK >11.0 HIGH RISK Performed By: #### T SH, LIPID, CMP ####[facility] [address] [place] [id number]. Lui Fonseca Cholesterol [Mass/Vol] 149 mg/dL Normal <=200 [facility] Comment on above: Performed By: #### T MAMADOU, LIPID, CMP ####[facility] [address] [place], [place] [address]UrLatisha Fonseca Cholesterol in HDL [Mass/Vol] 55 mg/dL Normal 40-60 [facility] Comment on above: Performed By: #### T MAMADOU, LIPID, CMP ####[facility] [address] [place], [place] [address]OlLatisha Fonseca Cholesterol in LDL [Mass/Vol] 61.4 mg/dL Normal [facility] Comment on above: Performed By: #### T SH, LIPID, CMP ####[facility] [address] [place], [place] [address]Ls. Lui Fonseca Cholesterol.total/Chol esterol in HDL [Mass ratio] 2.7 {ratio} Normal [facility] Comment on above: Performed By: #### T SH, LIPID, CMP ####[facility] [address] [place], [place] [address]VcLatisha Fonseca HDL NORMAL > or = 60 mg/dl - LO W CARDIOVASCULAR RISK <40 mg/dl - HIGH CARDIOVASCULAR RISK Normal [facility] Comment on above: Performed By: #### T MAMADOU, LIPID, CMP ####[facility] [address] [place] [id number]. Lui Fonseca LDL CALC NORMAL SEE BELOW Normal [facility] Comment on above: Result Comment: <100 mg/dl OPTIMAL 100 - 129 mg/dl NEAR OR ABOVE OPTIMAL 130 - 159 mg/dl BORDERLINE HIGH 160 - 189 mg/dl HIGH >190 mg/dl VERY HIGH Performed By: #### T MAMADOU, LIPID, CMP ####[facility] [address] [address]Dr. Lui Fonseca Triglyceride [Mass/Vol] 163 mg/dL Critically high <=150 [facility] Comment on above: Performed By: #### T MAMADOU, LIPID, CMP ####[facility] [address] [address]Dr. Lui Fonseca VLDL CALC 32.6 mg/dL Normal [facility] Comment on above: Performed By: #### T MAMADOU, LIPID, CMP ####[facility] [address] [place] [address]Dr. Lui Fonseca OCC BLD IMMUNO SCREENon 12-19 OCCULT BLOOD Negative Normal NEGATIVE [facility] Comment on above: Performed By: #### O BSCRN #### [facility] [address] [address] [address] Lui Fonseca PROF 14(COMP METB)on 022 Albumin [Mass/Vol] 4.1 g/dL Normal 3.4-5.0 [facility] Comment on above: Performed By: #### T MAMADOU, LIPID, CMP ####[facility] [address] [address]Dr. Lui Fonseca Albumin/Globulin [Mass ratio] 1.2 {ratio} Normal [facility] Comment on above: Performed By: #### T MAMADOU, LIPID, CMP ####[facility] [address] [place] [id number]. Lui Fonseca ALP [Catalytic activity/Vol] 86 U/L Normal 46-116 [facility] Comment on above: Performed By: #### T SH, LIPID, CMP ####[facility] [address] [place] [id number]. Lui Fonseca ALT [Catalytic activity/Vol] 27 U/L Normal 14-59 [facility] Comment on above: Performed By: #### T SH, LIPID, CMP ####[facility] [address] [place] [id number]. Lui Fonseca Anion gap [Moles/Vol] 14.1 mmol/L Normal [facility] Comment on above: Performed By: #### T SH, LIPID, CMP ####[facility] [address] [place] [address]Dr. Lui Fonseca AST [Catalytic activity/Vol] 15 U/L Normal 15-37 [facility] Comment on above: Performed By: #### T MAMADOU, LIPID, CMP ####[facility] [address] [place], [place] [address]Dr. Lui Fonseca Bilirubin [Mass/Vol] 0.6 mg/dL Normal 0.2-1.0 [facility] Comment on above: Performed By: #### T MAMADOU, LIPID, CMP ####[facility] [address] [place], [place] [address]Dr. Lui Fonseca Calcium [Mass/Vol] 9.1 mg/dL Normal 8.5-10.1 [facility] Comment on above: Performed By: #### T MAMADOU, LIPID, CMP ####[facility] [address] [place], [place] [address]Dr. Lui Fonseca Chloride [Moles/Vol] 104 mmol/L Normal 98-107 [facility] Comment on above: Performed By: #### T MAMADOU, LIPID, CMP ####[facility] [address] [place], [place] [address]Dr. Lui Fonseca CO2 [Moles/Vol] 26.8 mmol/L Normal 21.0-32.0 [facility] Comment on above: Performed By: #### T MAMADOU, LIPID, CMP ####[facility] [address] [place], [place] [address]Dr. Lui Fonseca Creatinine [Mass/Vol] 0.84 mg/dL Normal 0.55-1.02 [facility] Comment on above: Performed By: #### T SH, LIPID, CMP ####[facility] [address] [place] [address]Dr. Lui Fonseca EGFR-AF PUERTO RICAN >60 Normal >=60 [facility] Comment on above: Performed By: #### T SH, LIPID, CMP ####[facility] [address] [place] [address]Dr. Lui Fonseca EGFR-NON AF PUERTO RICAN >60 Normal >=60 [facility] Comment on above: Performed By: #### T SH, LIPID, CMP ####[facility] [facility] [id number] [place] [id number]. Lui Fonseca Globulin (S) [Mass/Vol] 3.3 g/dL Normal [facility] Comment on above: Performed By: #### T SH, LIPID, CMP ####[facility] [address] [place], [place] [address]Dr. Lui Fonseca Glucose [Mass/Vol] 93 mg/dL Normal 74-106 [facility] Comment on above: Performed By: #### T SH, LIPID, CMP ####[facility] [address] [place], [place] [address]Dr. Lui Fonseca Potassium [Moles/Vol] 3.9 mmol/L Normal 3.5-5.1 [facility] Comment on above: Performed By: #### T SH, LIPID, CMP ####[facility] [address] [place], [place] [address]Dr. Lui Fonseca Protein [Mass/Vol] 7.4 g/dL Normal 6.4-8.2 [facility] Comment on above: Performed By: #### T SH, LIPID, CMP ####[facility] [address] [place], [place] [address]Dr. Lui Fonseca Sodium [Moles/Vol] 141 mmol/L Normal 136-145 [facility] Comment on above: Performed By: #### T SH, LIPID, CMP ####[facility] [address] [place], [place] [address]Dr. Lui Fonseca Urea nitrogen [Mass/Vol] 8.0 mg/dL Normal 7.0-18.0 [facility] Comment on above: Performed By: #### T SH, LIPID, CMP ####[facility] [address] [place], [place] [address]Hg. Lui Fonseca Urea nitrogen/Creatinine [Mass ratio] 9.5 mg/mg Normal [facility] Comment on above: Performed By: #### T SH, LIPID, CMP ####[facility] [address] [place], [place] [address]Wu. Lui Fonseca TSHon 12-31-2021 TSH 0.539 uIU/mL Normal 0.358-3.74 0 [facility] Comment on above: Performed By: #### T MAMADOU, LIPID, CMP ####[facility] [address] [place] [id number]. Lui Fonseca Vital Signs Date Time Vital Sign Value Performing Clinician Facility 01-21-2025 08:00-0400 Body height 157.5 cm Sis Irby MD Work Phone: [facility] 01-21-2025 08:00-0400 Body mass index (BMI) [Ratio] 29.81 kg/m2 Sis Irby MD Work Phone: [facility] 01-21-2025 08:00-0400 Body weight 73.94 kg Sis Irby MD Work Phone: [facility] 01-21-2025 08:00-0400 Diastolic blood pressure 79 mm[Hg] Sis Irby MD Work Phone: [facility] 01-21-2025 08:00-0400 Heart rate 81 /min Sis Irby MD Work Phone: [facility] 01-21-2025 08:00-0400 Systolic blood pressure 111 mm[Hg] Sis Irby MD Work Phone: [facility] 11-20-2024 09:04-0400 Body height 157.5 cm Sis Irby MD Work Phone: [facility] 11-20-2024 09:04-0400 Body mass index (BMI) [Ratio] 30.54 kg/m2 Sis Irby MD Work Phone: [facility] 11-20-2024 09:04-0400 Body weight 75.75 kg Sis Irby MD Work Phone: [facility] 11-20-2024 09:04-0400 Diastolic blood pressure 84 mm[Hg] Sis Irby MD Work Phone: [facility] 11-20-2024 09:04-0400 Systolic blood pressure 126 mm[Hg] Sis Irby MD Work Phone: [facility] 10-29-2024 16:09-0400 Body height 157.5 cm Harman Sullivan MD Work Phone: [facility] 10-29-2024 16:09-0400 Body mass index (BMI) [Ratio] 29.84 kg/m2 Harman Sullivan MD Work Phone: [facility] 10-29-2024 16:09-0400 Body weight 74 kg Harman Sullivan MD Work Phone: [facility] 10-29-2024 16:09-0400 Diastolic blood pressure 77 mm[Hg] Harman Sullivan MD Work Phone: [facility] 10-29-2024 16:09-0400 Heart rate 102 /min Harman Sullivan MD Work Phone: [facility] 10-29-2024 16:09-0400 SaO2% (BldA) [Mass fraction] 99 % Harman Sullivan MD Work Phone: [facility] 10-29-2024 16:09-0400 Systolic blood pressure 111 mm[Hg] Harman Sullivan MD Work Phone: [facility] 10-22-2024 15:46-0400 Body height 157.48 cm Filiberto Ynig MD Work Phone: [facility] 10-22-2024 15:46-0400 Body mass index (BMI) [Ratio] 30 kg/m2 Filiberto Yign MD Work Phone: [facility] 10-22-2024 15:46-0400 Body weight 74.5 kg Filiberto Ying MD Work Phone: [facility] 10-22-2024 15:46-0400 Diastolic blood pressure 80 mm[Hg] Filiberto Ying MD Work Phone: [facility] 10-22-2024 15:46-0400 Heart rate 88 /min Filiberto Ying MD Work Phone: [facility] 10-22-2024 15:46-0400 SaO2% (BldA) [Mass fraction] 99 % Filiberto Ying MD Work Phone: [facility] 10-22-2024 15:46-0400 Systolic blood pressure 110 mm[Hg] Filiberto Ying MD Work Phone: [facility] 09-17-2024 08:59-0400 Diastolic blood pressure 68 mm[Hg] Filiberto Ying MD Work Phone: [facility] 09-17-2024 08:59-0400 Heart rate 85 /min Filiberto Ying MD Work Phone: [facility] 09-17-2024 08:59-0400 Respiratory rate 18 /min Filiberto Ying MD Work Phone: [facility] 09-17-2024 08:59-0400 SaO2% (BldA) [Mass fraction] 98 % Filiberto Ying MD Work Phone: [facility] 09-17-2024 08:59-0400 Systolic blood pressure 104 mm[Hg] Filiberto Ying MD Work Phone: [facility] 09-17-2024 05:05-0400 Body height 157.48 cm Filiberto Ying MD Work Phone: [facility] 09-17-2024 05:05-0400 Body temperature 98.1 [degF] Filiberto Ying MD Work Phone: [facility] 09-17-2024 05:05-0400 Body weight 75.55 kg Filiberto Ying MD Work Phone: [facility] 08-01-2024 10:43-0400 Diastolic blood pressure 85 mm[Hg] Filiberto Ying MD Work Phone: [facility] 08-01-2024 10:43-0400 Heart rate 72 /min Filiberto Ying MD Work Phone: [facility] 08-01-2024 10:43-0400 Respiratory rate 18 /min Filiberto Ying MD Work Phone: [facility] 08-01-2024 10:43-0400 SaO2% (BldA) [Mass fraction] 99 % Filiberto Ying MD Work Phone: [facility] 08-01-2024 10:43-0400 Systolic blood pressure 116 mm[Hg] Filiberto Ying MD Work Phone: [facility] 08-01-2024 09:25-0400 Body temperature 98.2 [degF] Filiberto Ying MD Work Phone: [facility] 08-01-2024 07:49-0400 Body height 157.48 cm Filiberto Ying MD Work Phone: [facility] 08-01-2024 07:49-0400 Body weight 73.25 kg Filiberto Ying MD Work Phone: [facility] 07-30-2024 16:17-0400 Body height 157.5 cm Harman Sullivan MD Work Phone: [facility] 07-30-2024 16:17-0400 Body mass index (BMI) [Ratio] 30.24 kg/m2 Harman Sullivan MD Work Phone: [facility] 07-30-2024 16:17-0400 Body weight 75 kg Harman Sullivan MD Work Phone: [facility] 07-30-2024 16:17-0400 Diastolic blood pressure 82 mm[Hg] Harman Slulivan MD Work Phone: [facility] 07-30-2024 16:17-0400 Heart rate 106 /min Harman Sullivan MD Work Phone: [facility] 07-30-2024 16:17-0400 SaO2% (BldA) [Mass fraction] 98 % Harman Sullivan MD Work Phone: [facility] 07-30-2024 16:17-0400 Systolic blood pressure 128 mm[Hg] Harman Sullivan MD Work Phone: [facility] 06-19-2024 20:00-0500 Diastolic blood pressure 61 mm[Hg] Filiberto Ying MD Work Phone: [facility] 06-19-2024 20:00-0500 Heart rate 67 /min Filiberto Ying MD Work Phone: [facility] 06-19-2024 20:00-0500 Respiratory rate 24 /min Filiberto Ying MD Work Phone: [facility] 06-19-2024 20:00-0500 SaO2% (BldA) [Mass fraction] 99 % Filiberto Ying MD Work Phone: [facility] 06-19-2024 20:00-0500 Systolic blood pressure 103 mm[Hg] Filiberto Ying MD Work Phone: [facility] 06-19-2024 13:52-0500 Body height 157.48 cm Filiberto Ying MD Work Phone: [facility] 06-19-2024 13:52-0500 Body temperature 98.1 [degF] Filiberto Ying MD Work Phone: [facility] 06-19-2024 13:52-0500 Body weight 74 kg Filiberto Ying MD Work Phone: [facility] 06-17-2024 10:04-0500 Diastolic blood pressure 72 mm[Hg] Filiberto Ying MD Work Phone: [facility] 06-17-2024 10:04-0500 Heart rate 85 /min Filiberto Ying MD Work Phone: [facility] 06-17-2024 10:04-0500 Respiratory rate 20 /min Filiberto Ying MD Work Phone: [facility] 06-17-2024 10:04-0500 SaO2% (BldA) [Mass fraction] 100 % Filiberto Ying MD Work Phone: [facility] 06-17-2024 10:04-0500 Systolic blood pressure 121 mm[Hg] Filiberto Ying MD Work Phone: [facility] 06-17-2024 09:19-0500 Body temperature 97 [degF] Filiberto Ying MD Work Phone: [facility] 06-17-2024 09:19-0500 Inhaled oxygen flow rate 6 L/min Filiberto Ying MD Work Phone: [facility] 06-17-2024 06:55-0500 Body height 157.48 cm Filiberto Ying MD Work Phone: [facility] 06-17-2024 06:55-0500 Body weight 75 kg Filiberto Ying MD Work Phone: [facility] 01-30-2024 13:48-0400 Body height 157.5 cm Harman Sullivan MD Work Phone: [facility] 01-30-2024 13:48-0400 Body mass index (BMI) [Ratio] 28.43 kg/m2 Harman Sullivan MD Work Phone: [facility] 01-30-2024 13:48-0400 Body weight 70.5 kg Harman Sullivan MD Work Phone: [facility] 01-30-2024 13:48-0400 Diastolic blood pressure 76 mm[Hg] Harman Sullivan MD Work Phone: [facility] 01-30-2024 13:48-0400 Heart rate 91 /min Harman Sullivan MD Work Phone: [facility] 01-30-2024 13:48-0400 Systolic blood pressure 115 mm[Hg] Harman Sullivan MD Work Phone: [facility] 10-31-2023 10:14-0400 Body height 157.5 cm Harman Sullivan MD Work Phone: [facility] 10-31-2023 10:14-0400 Body mass index (BMI) [Ratio] 27.82 kg/m2 Harman Sullivan MD Work Phone: [facility] 10-31-2023 10:14-0400 Body weight 69 kg Harman Sullivan MD Work Phone: [facility] 10-31-2023 10:14-0400 Diastolic blood pressure 70 mm[Hg] Harman Sullivan MD Work Phone: [facility] 10-31-2023 10:14-0400 Heart rate 84 /min Harman Sullivan MD Work Phone: [facility] 10-31-2023 10:14-0400 Systolic blood pressure 109 mm[Hg] Harman Sullivan MD Work Phone: [facility] 09-21-2023 08:12-0400 Body height 157.5 cm Harman Sullivan MD Work Phone: [facility] 09-21-2023 08:12-0400 Body mass index (BMI) [Ratio] 27.58 kg/m2 Harman Sullivan MD Work Phone: [facility] 09-21-2023 08:12-0400 Body weight 68.4 kg Harman Sullivan MD Work Phone: [facility] 09-21-2023 08:12-0400 Diastolic blood pressure 74 mm[Hg] Harman Sullivan MD Work Phone: [facility] 09-21-2023 08:12-0400 Heart rate 84 /min Harman Sullivan MD Work Phone: [facility] 09-21-2023 08:12-0400 SaO2% (BldA) [Mass fraction] 99 % Harman Sullivan MD Work Phone: [facility] 09-21-2023 08:12-0400 Systolic blood pressure 109 mm[Hg] Harman Sullivan MD Work Phone: [facility] 05-15-2023 12:15-0500 Diastolic blood pressure 67 mm[Hg] MD Filiberto Ying Work Phone: [facility] 05-15-2023 12:15-0500 Heart rate 86 /min MD Filiberto Ying Work Phone: [facility] 05-15-2023 12:15-0500 Respiratory rate 16 /min MD Filiberto Ying Work Phone: [facility] 05-15-2023 12:15-0500 SaO2% (BldA) [Mass fraction] 100 % MD Filiberto Ying Work Phone: [facility] 05-15-2023 12:15-0500 Systolic blood pressure 125 mm[Hg] MD Filiberto Ying Work Phone: [facility] 05-15-2023 11:10-0500 Inhaled oxygen flow rate 6 L/min MD Filiberto Ying Work Phone: [facility] 05-15-2023 10:55-0500 Body temperature 98.1 [degF] MD Filiberto Ying Work Phone: [facility] 05-15-2023 09:30-0500 Body mass index (BMI) [Ratio] 25.8 kg/m2 MD Filiberto Ying Work Phone: [facility] 05-15-2023 08:55-0500 Body height 157.48 cm MD Filiberto Ying Work Phone: [facility] 05-15-2023 08:55-0500 Body weight 64 kg MD Filiberto Ying Work Phone: [facility] 04-05-2023 12:08-0500 Body temperature 98.2 [degF] MD Filiberto Ying Work Phone: [facility] 04-05-2023 12:08-0500 Diastolic blood pressure 69 mm[Hg] MD Filiberto Ying Work Phone: [facility] 04-05-2023 12:08-0500 Heart rate 87 /min MD Filiberto Ying Work Phone: [facility] 04-05-2023 12:08-0500 Respiratory rate 18 /min MD Filiberto Ying Work Phone: [facility] 04-05-2023 12:08-0500 SaO2% (BldA) [Mass fraction] 100 % MD Filiberto Ying Work Phone: [facility] 04-05-2023 12:08-0500 Systolic blood pressure 110 mm[Hg] MD Filiberto Ying Work Phone: [facility] 01-12-2023 09:35-0400 Body height 157.5 cm Robert Bernarda INVOICE CONTROL CLERK.BEE TENDER Work Phone: [facility] 01-12-2023 09:35-0400 Body weight 70.31 kg Robert Bernarda INVOICE CONTROL CLERK.BEE TENDER Work Phone: [facility] 01-12-2023 09:35-0400 Diastolic blood pressure 69 mm[Hg] Robert Bernarda INVOICE CONTROL CLERK.BEE TENDER Work Phone: [facility] 01-12-2023 09:35-0400 Heart rate 110 /min Robert Bernarda INVOICE CONTROL CLERK.BEE TENDER Work Phone: [facility] 01-12-2023 09:35-0400 SaO2% (BldA) [Mass fraction] 93 % Robert Bernarda INVOICE CONTROL CLERK.BEE TENDER Work Phone: [facility] 01-12-2023 09:35-0400 Systolic blood pressure 110 mm[Hg] Robert Bernarda INVOICE CONTROL CLERK.BEE TENDER Work Phone: [facility] 10-23-2022 14:14-0400 Diastolic blood pressure 66 mm[Hg] MD Filiberto Ying Work Phone: [facility] 10-23-2022 14:14-0400 Heart rate 100 /min MD Filiberto Ying Work Phone: [facility] 10-23-2022 14:14-0400 Systolic blood pressure 113 mm[Hg] Filiberto Stepan Work Phone: [facility] 10-23-2022 13:50-0400 SaO2% (BldA) [Mass fraction] 99 % Filiberto Hoy Work Phone: [facility] 09-20-2022 10:01-0400 Diastolic blood pressure 88 mm[Hg] Filiberto M Hoy Work Phone: [facility] [address] DO Work Phone: 09-20-2022 10:01-0400 Diastolic blood pressure 84 mm[Hg] Filiberto M Hoy Work Phone: [facility] 250 DO Work Phone: 09-20-2022 10:01-0400 Diastolic blood pressure 86 mm[Hg] Filiberto Zoe Hoy Work Phone: [facility] 250 DO Work Phone: 09-20-2022 10:01-0400 Systolic blood pressure 120 mm[Hg] Filiberto M Hoy Work Phone: [facility] 250 DO Work Phone: 09-20-2022 10:01-0400 Systolic blood pressure 122 mm[Hg] Filiberto M Hoy Work Phone: [facility] [address] DO Work Phone: 09-20-2022 09:59-0400 Body height 157.48 cm Filiberto M Hoy Work Phone: [facility] [address] DO Work Phone: 09-20-2022 09:59-0400 Body mass index (BMI) [Ratio] 30.36 kg/m2 Filiberto M Hoy Work Phone: [facility] 250 DO Work Phone: 09-20-2022 09:59-0400 Body surface area Derived from formula 1.77 m2 Filiberto Zoe Hoy Work Phone: [facility] 250 DO Work Phone: 09-20-2022 09:59-0400 Body weight 75.3 kg Filiberto Zoe Hoy Work Phone: [facility] 250 DO Work Phone: 09-20-2022 09:59-0400 Diastolic blood pressure 88 mm[Hg] Filiberto Zoe Hoy Work Phone: [facility] DO Work Phone: 09-20-2022 09:59-0400 Heart rate 85 /min Filiberto Zoe Hoy Work Phone: [facility] 250 DO Work Phone: 09-20-2022 09:59-0400 Systolic blood pressure 120 mm[Hg] Filiberto Zoe Hoy Work Phone: [facility] 250 DO Work Phone: 07-28-2022 13:01-0500 Body height 157.5 cm Somjita Braxton INVOICE CONTROL CLERK.BEE TENDER Work Phone: [facility] 07-28-2022 13:01-0500 Body temperature 97.81 [degF] Somjita Braxton INVOICE CONTROL CLERK.BEE TENDER Work Phone: [facility] 07-28-2022 13:01-0500 Body weight 79.11 kg Somjita Braxton INVOICE CONTROL CLERK.BEE TENDER Work Phone: [facility] 07-28-2022 13:01-0500 Diastolic blood pressure 59 mm[Hg] Somjita Braxton INVOICE CONTROL CLERK.BEE TENDER Work Phone: [facility] 07-28-2022 13:01-0500 Heart rate 85 /min Somjita Braxton INVOICE CONTROL CLERK.BEE TENDER Work Phone: [facility] 03-10-2023 13:01-0500 Systolic blood pressure 117 mm[Hg] Nayely Limon MARISEL Work Phone: [facility] Encounters Encounter Date Encounter Type Care Provider Facility Start: 01-28-2025 End: 01-28-2025 Nadia Bedolla MD Work Phone: [facility] Start: 01-28-2025 End: 01-28-2025 Bamboo flowsmelita Bedolla MD Work Phone: [facility] Start: 01-28-2025 End: 01-28-2025 Office outpatient visit 25 minutes Ban Bedolla MD Work Phone: [facility] Comment on above: Other rosacea (Prima ry Dx); Cellulitis of left thumb Start: 01-28-2025 End: 01-28-2025 ambulatory BAN BEDOLLA Not Available Start: 01-21-2025 End: 01-21-2025 Bamboo flowsheet Sis Irby MD Work Phone: [facility] Start: 01-21-2025 End: 01-21-2025 Bamboo WigWagheet Sis Irby MD Work Phone: [facility] Start: 01-21-2025 End: 01-21-2025 Office outpatient visit 15 minutes Ban Bedolla MD Work Phone: [facility] Comment on above: Cellulitis of left t humb (Primary Dx) Start: 01-21-2025 End: 01-24-2025 Orders Only Ban Bedolla MD Work Phone: [facility] External Department Unsolicited Start: 01-21-2025 End: 01-21-2025 ambulatory BANAHMET QUIROSITTI Not Available Start: 01-21-2025 End: 01-21-2025 Office outpatient visit 25 minutes Sis Irby MD Work Phone: [facility] Comment on above: RLS [...] tag Start: 11-25-2024 End: 11-25-2024 ambulatory BAN BEDOLAL Not Available Start: 11-20-2024 End: 11-20-2024 Bamboo flowsheet Sis Irby MD Work Phone: [facility] Start: 11-20-2024 End: 11-20-2024 Bamboo flowsmelita Irby MD Work Phone: [facility] Start: 11-20-2024 End: 11-20-2024 Office outpatient new 45 minutes Sis Irby MD Work Phone: [facility] Comment on above: Cervical dystonia [...] Start: 10-29-2024 End: 10-29-2024 ambulatory HARMAN SULLIVAN Facility:[facility] Start: 10-22-2024 End: 10-22-2024 ambulatory Filiberto Ying MD Work Phone: [facility] Work Phone: Start: 10-22-2024 End: 10-22-2024 Patient encounter procedure Filiberto Ying MD [facility] Phone[facility] Work Phone: Start: 09-17-2024 End: 09-17-2024 Emergency department patient visit Filiberto Ying MD Work Phone: [facility] Work Phone: Start: 08-01-2024 End: 08-01-2024 Emergency department patient visit Filiberto Ying MD Work Phone: [facility] Work Phone: Start: 07-30-2024 End: 07-30-2024 ambulatory HARMAN SULLIVAN Facility:[facility] Start: 07-30-2024 End: 07-30-2024 Patient encounter procedure [...] Filiberto Ying MD Work Phone: [facility] Work Phone: Start: 06-17-2024 End: 06-17-2024 Admission to same day surgery center Filiberto Ying MD Work Phone: [facility] [place] Start: 06-17-2024 End: 06-17-2024 ambulatory Filiberto Ying MD Work Phone: [facility] Work Phone: Start: 06-10-2024 End: 06-10-2024 Departed Referred Filiberto Ying MD Work Phone: [facility]Pre-Surgical Testing Work Phone: Start: 06-10-2024 End: 06-10-2024 Patient encounter procedure Filiberto Ying MD Work Phone: [facility] Work Phone: Start: 06-10-2024 End: 06-10-2024 ambulatory Filiberto Ying MD Work Phone: [facility] Work Phone: Start: 02-18-2024 End: 02-18-2024 ambulatory Reuben Bauman MD Facility: [facility] Start: 01-30-2024 End: 01-30-2024 ambulatory HARMAN SULLIVAN Facility:[facility] Start: 01-30-2024 End: 01-30-2024 Patient encounter procedure Harman Sullivan MD Work Phone: Neurology Comment on above: Chronic migraine wit hout aura, with intractable migraine, so stated, with status migrainosus (Primary Dx); Neck pain Start: 01-28-2024 End: 01-28-2024 Patient encounter procedure MD Filiberto Ying Work Phone: [facility] Start: 01-28-2024 End: 01-28-2024 ambulatory MD Filiberto Ying Work Phone: [facility] Work Phone: Start: 11-09-2023 ambulatory [facility] [...] Start: 10-18-2023 Get Medical Advice Robert caraballo APRN.BEE TENDER Work Phone: Neurology Comment on above: Med refill Refill Request Start: 10-11-2023 Telephone encounter Harman fraser MD Work Phone: Neurology Comment on above: Insurance Authorizat ion (Botox) Start: 10-03-2023 ambulatory Robert LANDRYBEE TENDER Work Phone: Neurology Comment on above: Fmla Start: 09-21-2023 Telephone encounter Harman fraser MD Work Phone: Neurology Comment on above: Request Outside [facility] Records Start: 09-21-2023 End: 09-21-2023 Patient encounter procedure Harman Sullivan MD Work Phone: Neurology Comment on above: Chronic migraine wit hout aura, with intractable migraine, so stated, with status migrainosus (Primary Dx); Neck pain; RLS (restless legs syndrome) Start: 09-15-2023 Refill Robert Giles VERO.BEE TENDER Work Phone: Neurology Comment on above: Refill Request Start: 09-04-2023 End: 09-04-2023 ambulatory Robert Menchaca APRN.BEE TENDER Work Phone: Neurology Comment on above: Cervical dystonia (P rimary Dx) Start: 09-04-2023 End: 09-04-2023 Telemedicine consultation with patient Robert Menchaca APRN.BEE TENDER Work Phone: [facility] Start: 09-03-2023 E-mail encounter fro m caregiver Robert Menchaca APRN.BEE TENDER Work Phone: Neurology Start: 09-03-2023 Patient encounter procedure Robert Menchaca APRN.BEE TENDER Work Phone: Neurology Comment on above: appointment Start: 05-15-2023 End: 05-15-2023 Admission to same day surgery center MD Filiberto Ying Work Phone: [facility] [place] Start: 05-15-2023 End: 05-15-2023 ambulatory MD Filiberto Ying Work Phone: [facility] Work Phone: Start: 05-01-2023 End: 05-01-2023 ambulatory MD Filiberto Ying Work Phone: [facility] Work Phone: Start: 05-01-2023 End: 05-01-2023 Patient encounter procedure MD Filiberto Ying Work Phone: [facility]Pre-Surgical Testing Work Phone: Start: 04-05-2023 End: 04-05-2023 Admission to same day surgery center MD Filiberto Ying Work Phone: [facility]ound [facility] for [facility] Start: 04-05-2023 End: 04-05-2023 ambulatory MD Filiberto Ying Work Phone: [facility] Work Phone: Start: 02-19-2023 Telephone encounter Robert Tucker on 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 CONTROL 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.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 TENDER Work Phone: Neurology Comment on above: Results ([facility] ) Start: 02-09-2023 Telephone encounter Robert Tucker on INVOICE CONTROL CLERK.BEE TENDER Work Phone: Neurology Comment on above: Results ([facility] ) Start: 02-07-2023 End: 02-07-2023 ambulatory MD Filiberto Ying Work Phone: [facility] Work Phone: Start: 02-07-2023 End: 02-07-2023 Patient encounter procedure MD Filiberto Ying Work Phone: [facility] [place] Work Phone: Start: 01-19-2023 Orders Only Robert Menchaca A PRN.BEE TENDER Work Phone: Neurology Start: 01-17-2023 ambulatory Robert Giles PRN.BEE TENDER Work Phone: Neurology Comment on above: Labs and rx Start: 01-12-2023 End: 01-12-2023 Patient encounter procedure Robert Menchaca INVOICE CONTROL CLERK.BEE TENDER Work Phone: Neurology Comment on above: Cervical dystonia (P rimary Dx); Neck tightness; RLS (restless legs syndrome) Start: 01-08-2023 Chart Update Filiberto Ying Work Phone: [facility] 320 DO Work Phone: Start: 12-28-[address] Soraya Ford acility:[id number] Start: 11-14-2022 ambulatory Soraya Cage Facility:1 [id number] Start: 11-10-2022 FUV, Provider: Saeed Castellanos, Status: Pen, Time: 8:50 AM Filiberto Ying Work Phone: [facility] Work Phone: Start: 11-10-[address] Saeed Castellanos Facility: Start: 11-02-[address] [facility] Facility: Start: 11-02-[address] Saeed Castellanos Facility: Start: 10-23-2022 End: 10-23-2022 ambulatory MD Filiberto Ying Work Phone: [facility] Work Phone: Start: 10-23-2022 End: 10-23-2022 Patient encounter procedure MD Filiberto Ying Work Phone: [facility]Electrodiagnostics Work Phone: Start: 10-23-2022 ambulatory Romero Jones Faci lity:[id number] Start: 10-12-2022 End: 10-12-2022 Patient encounter procedure MD Filiberto Ying Work Phone: [facility] Work Phone: Start: 10-06-[address] FILIBERTO YING . Facili ty:H1 Start: 09-29-2022 EVENT EMORY, Provider : MOOKIE YOUNG WHISKEY REGAUGER 1,[id number], Status: Pen, Time: 1:00 PM Filiberto Zoe Franty Work Phone: [facility] 250 DO Work Phone: Start: 09-29-2022 Patient encounter procedure Filibertoxochitl Ying Work Phone: [facility] 250 DO Work Phone: Start: 09-29-[address] Saeed Castellanos Facility: Start: 09-20-2022 Office consultation new/estab patient 60 min Filibertoxochitl Petersy Work Phone: [facility] 250 DO Work Phone: Start: 09-20-[address] Saeed Castellanos Facility: Start: 08-11-2022 End: 08-11-2022 ambulatory Nayely Limon APRN.BEE TENDER Work Phone: Rheumatology Comment on above: Neck pain, chronic ( Primary Dx); Fibromyalgia Start: 08-11-2022 End: 08-11-2022 Telemedicine consultation with patient Nayely Limon APRN.BEE TENDER Work Phone: [facility] Start: 07-28-2022 End: 07-28-2022 Subsequent hospital visit by physician Xr Main A21 Radiology Comment on above: Neck pain, chronic [ M54.2, G89.29] Start: 07-28-2022 End: 07-28-2022 Patient encounter procedure Nayely Limon APRN.BEE TENDER Work Phone: Rheumatology Comment on above: Neck [...] encounter procedure MD Filiberto Ying Work Phone: [facility] [place] Start: 01-09-2022 End: 01-09-[address] FABY RAYMOND . Facility:H1 Start: 01-03-2022 Encounter for genera l adult medical examination without abnormal findings DR FILIBERTO YING . [facility] Start: 12-31-2021 End: 01-01-[address] FILIBERTO YING . Facility:H1 Start: 12-31-2021 End: 01-01-2022 Encounter for general adult medical examination without abnormal findings DR FILIBERTO YING . Facility:H1 Start: 11-18-2021 End: 11-18-2021 Patient encounter procedure MD Filiberto Ying Work Phone: [facility] [place] Procedures Date Procedure Procedure Detail Performing Clinician [...] cervical 4 or 5 views Nayely Limon INVOICE CONTROL CLERK.BEE TENDER Work Phone: Start: 07-28-2022 Radiologic exam chest 2 views Nayely Limon APRN.BEE TENDER Work Phone: Start: 11-18-2021 MRI of head MD Filiberto Ying Work Phone: Cholecystectomy Filiberto Zoe Peters y Work Phone: Esophagogastroduodenoscopy D ouglas M Steapn Work Phone: Hysterectomy Filiberto Zoe Petersy Work Phone: Laparoscopy Filiberto Zoe Ying Work Phone: Tonsillectomy and adenoidectomy Filiberto Zoe Petersy Work Phone: NEGATED: Highlighted row has not occurred! Total colonoscopy Filiberto Zoe Franty Work Phone: Plan of Treatment Date Care Activity Detail Author Start: 01-03-2030 Urine microalbumin profile [facility] Start: 04-14-2025 End: 04-14-2025 Patient encounter procedure ER[facility] Start: 03-30-2025 End: 03-30-2025 Patient encounter procedure 03/30/2025 8:00 AM EST Office Visit [facility] [address] [place] [address] Sis Irby MD [address] [facility] [address] [address] [facility] Start: 02-18-2025 End: 02-18-2025 Patient encounter procedure 02/18/2025 11:30 AM EDT Office Visit [facility] [address] [place] [address] Analilia Adorno MD [address] [place] [address] [facility] Start: 02-06-2025 [...] Influenza vaccination Influenz a Vaccine (Season Ended) [facility] Start: 11-27-2024 End: 11-27-2024 Professional / ancillary services management 11/27/2024 7:15 AM EDT Ancillary Procedure [facility] [address] [place] [address] [facility] Start: 11-25-2024 End: 11-25-2024 Patient encounter procedure [facility] Comment on above: Arrived Start: 11-20-2024 End: 11-20-2025 MR Cervical spine WO contrast MR cervical spine wo contrast Imaging Routine Cervical dystonia RLS (restless legs syndrome) Expected: 11/20/2024, Expires: 11/20/2025 [facility] Work Phone: Comment on above: Expected: 11/20/2024 , Expires: 11/20/2025 Start: 11-20-2024 End: 11-20-2024 Patient encounter procedure [facility] NE[facility] Comment on above: Arrived Start: 11-11-2024 End: 11-11-2024 Patient encounter procedure 11/11/2024 11:35 AM EDT Office Visit [facility] [address] [place] [address] Ban Bedolla MD [address] [place] [address] Arrived [facility] Comment on above: Arrived Start: 10-29-2024 End: 10-29-2024 Patient encounter procedure 10/29/2024 4:30 PM EDT Office Visit Neurology [address] [place] [address] [place] [address] Harman Sullivan MD [address] [facility] [address] [place], [place] [phone] F/u hold for botox Neurology Comment on above: F/u hold for botox Start: 07-30-2024 End: 07-30-2024 Patient encounter procedure 07/30/2024 4:30 PM EDT Office Visit Neurology [address] [facility] [place] [address] Harman Sullivan MD [address] [facility] [address] [place], [place] [phone] Botox Neurology Comment on above: Botox Start: 07-29-2024 End: 07-29-2024 Patient encounter procedure 07/29/2024 8:35 AM EDT Office Visit [facility] [address] [place] [phone] Nae Velez, INVOICE CONTROL CLERK-BEE TENDER [address] [place] [address] [facility] Start: 06-17-2024 End: 06-17-2024 [facility] Start: 04-30-2024 End: 04-30-2024 Patient encounter procedure 04/30/2024 8:30 AM EST Office Visit Neurology 1 [facility] [place] [address] Harman Sullivan MD 1 [facility] [address] [place], [place] [phone] Botox Neurology Comment on above: Botox Start: 01-30-2024 End: 01-30-2024 Patient encounter procedure 01/30/2024 2:00 PM EDT Office Visit Neurology 1 [facility] [address] Harman Sullivan MD [address] [facility] [address] [place], [place] [phone] Botox Neurology Comment on above: Botox Start: 01-20-2024 Covid-19 Vaccine () Covid-19 Vaccine () [facility] Start: 01-20-2024 Covid-19 Vaccine () Covid-19 Vaccine () [facility] Start: 01-20-2024 Influenza vaccination [facility] Start: 11-06-2023 End: 11-06-2023 Patient encounter procedure 11/06/2023 10:30 AM EDT Office Visit Neurology [address] [place] [phone] Harman Sullivan MD 1 [facility] [address] [place], [place] [phone] Three week follow up Neurology Comment on above: Three week follow up Start: 10-31-2023 End: 10-31-2023 Patient encounter procedure 10/31/2023 10:30 AM EDT Office Visit Neurology 1 [facility] [place] [id number] Harman Sullivan MD 1 [facility] [address] [place] [phone] Botox auth approved Neurology Comment on above: Botox auth approved Start: 09-21-2023 End: 09-21-2023 Patient encounter procedure 09/21/2023 8:30 AM EDT Office Visit Neurology 1 [facility] [address] Harman Sullivan MD 1 [facility] [address] [place], [place] [phone] Cervical dystonia [G24.3] Neurology Comment on above: Cervical dystonia [G 24.3] Start: 05-21-2023 Behavioral Health Screening Behavioral Health Screening [facility] Start: 05-15-2023 [facility] Start: 05-15-2023 [facility] Start: 04-05-2023 [facility] Start: 03-16-2023 FUV, Provider: Isrrael,Soraya, Status: Pen, Time: 1:00 PM FUV, Provider: Soraya Cage, Status: Pen, Time: 1:00 PM -[facility] 320 DO Work Phone: Start: 01-19-2023 Covid-19 Vaccine ( season) Covid-19 Vaccine () [facility] Start: 01-19-2023 Influenza vaccination [facility] Start: 01-12-2023 End: 03-14-2023 CBC panel - Blood by Automated count CBC Lab Routine RLS (restless legs syndrome) Expected: 01/12/2023, Expires: 03/14/2023 [facility] Work Phone: Comment on above: Expected: 01/12/2023 , Expires: 03/14/2023 Start: 01-12-2023 End: 03-14-2023 Cobalamin (Vitamin B12) [Mass/volume] in Serum or Plasma VITAMIN B12 BLOOD Lab Routine RLS (restless legs syndrome) Expected: 01/12/2023, Expires: 03/14/2023 [facility] Work Phone: Comment on above: Expected: 01/12/2023 , Expires: 03/14/2023 Start: 01-12-2023 End: 03-14-2023 Comprehensive metabolic 2000 panel - Serum or Plasma COMP METABOLIC PANEL Lab Routine RLS (restless legs syndrome) Expected: 01/12/2023, Expires: 03/14/2023 [facility] Work Phone: Comment on above: Expected: 01/12/2023 , Expires: 03/14/2023 Start: 01-12-2023 End: 03-14-2023 Ferritin [Mass/volume] in Serum or Plasma FERRITIN BLD Lab Routine RLS (restless legs syndrome) Expected: 01/12/2023, Expires: 03/14/2023 [facility] Work Phone: Comment on above: Expected: 01/12/2023 , Expires: 03/14/2023 Start: 01-12-2023 End: 03-14-2023 Iron and Iron binding capacity panel - Serum or Plasma IRON + TIBC Lab Routine RLS (restless legs syndrome) Expected: 01/12/2023, Expires: 03/14/2023 [facility] Work Phone: Comment on above: Expected: 01/12/2023 , Expires: 03/14/2023 Start: 11-14-2022 NPVRFRL, Provider: Soraya Cage, Status: Pen, Time: 4:20 PM NPVRFRL, Provider: Soraya Cage, Status: Pen, Time: 4:20 PM [facility] Work Phone: Start: 11-10-2022 FUV, Provider: Saeed Castellanos, Status: Pen, Time: 8:50 AM FUV, Provider: Saeed Castellanos, Status: Pen, Time: 8:50 AM -[facility] 250 DO Work Phone: Start: 10-23-2022 [facility], Provider: Romero Jones, Status: Pen, Time: 2:00 PM [facility], Provider: Romero Jones, Status: Pen, Time: 2:00 PM -[facility] 250 DO Work Phone: Start: 09-29-2022 EVENT [facility]ORY, Provider : MOOKIE YOUNG WHISKEY REGAUGER 1,[id number], Status: Pen, Time: 1:00 PM EVENT [facility], Provider: MOOKIE YOUNG WHISKEY REGAUGER 1,[id number], Status: Pen, Time: 1:00 PM [facility] 250 DO Work Phone: Start: 05-21-2022 DEPRESSION ASSESSMENT DEPRESSION ASS ESSMENT [facility] Start: 01-19-2022 Influenza vaccination INFLUENZA (#1) [facility] Start: 2017 HPV TESTING HPV TESTING [facility] Start: 2017 Screening for malign ant neoplasm of cervix HPV Testing [facility] Start: 01-07-2008 PAP TESTING PAP TESTING [facility] Start: 01-07-2008 Screening for malign ant neoplasm of cervix [facility] Start: 2006 Hepatitis B Vaccine (1 of 3 - 19+ 3-dose series) Hepatitis B Vaccine (1 of 3 - 19+ 3-dose series) [facility] Start: 2005 Anxiety Screening Anxiety Screening [facility] Start: 2005 Depression Screening Depression Scre ening [facility] Start: 2005 HEPATITIS C SCREENING HEPATITIS C [facility] Start: 2005 Hepatitis C screening Hepatitis C [facility] Start: 2005 HIV SCREENING HIV SCREENING [facility] Start: 2005 HIV screening HIV Screening [facility] Start: 1987 COVID-19 VACCINE (#1) COVID-19 VACCI NE (#1) [facility] Start: 1987 HEPATITIS B (1 of 3 - 3-dose series) HEPATITIS B (1 of 3 - 3-dose series) [facility] Start: 1987 Hepatitis B Vaccine (1 of 3 - 3-dose series) Hepatitis B Vaccine (1 of 3 - 3-dose series) [facility] Aerobic culture Aerobic culture Microbiology Timed Cellulitis of left thumb Release Upon Ordering for 1 Occurrences starting 01/21/2025 [facility] Work Phone: Comment on above: Release Upon Orderin g for 1 Occurrences starting 01/21/2025 Patient Education [facility] Work Phone: Patient referral [facility] Work Phone: [facility] Immunizations Immunization Date Immunization Notes Care Provider Alina treviño 01-04-2020 tetanus toxoid, redu hawa diphtheria toxoid, and acellular pertussis vaccine, adsorbed Xr A21 [facility] 07-27-2016 tetanus toxoid, redu hawa diphtheria toxoid, and acellular pertussis vaccine, adsorbed Xr A21 [facility] Payers Date Payer Category Payer Managed Care HMO (unspecified) [id number] 2022 Private Health Insurance [id number] 2022 Private Health Insurance [id number] 2022 Medicaid [place] [employer] MED[place] [id number] 2022-Present [phone] [address] [place] [address] Medicaid [id number] 1987 Unknown [id number] 2.16.840.1.355758.3.579.2. 593 1987 Unknown [id number] 2.16.840.1.420282.3.579.2. 593 1987 Unknown [id number] 2.16.840.1.897469.3.579.2. 593 1987 Unknown [id number] 2.16.840.1.347341.3.579.2. 593 1987 Unknown [id number] 2.16.840.1.102335.3.579.2. 593 1987 Unknown [id number] 2.16.840.1.053545.3.579.2. 593 1987 Unknown [id number] 2.16.840.1.573781.3.579.2. 593 1987 Unknown [id number] 2.16.840.1.426727.3.579.2. 593 1987 Unknown [id number] 2.16.840.1.618651.3.579.2. 593 1987 Unknown [id number] 2.16.840.1.498496.3.579.2. 1068 1987 Unknown [id number] 2.16.840.1.149352.3.579.2. 356 1987 Unknown [id number] 2.16.840.1.984134.3.579.2. 356 1987 Unknown [id number] 2.16.840.1.009467.3.579.2. 356 1987 Unknown [id number] 2.16.840.1.276039.3.579.2. 356 1987 Unknown [id number] 2.16.840.1.358001.3.579.2. 356 1987 Unknown [id number] 2.16.840.1.807276.3.579.2. 356 1987 Unknown [id number] 2.16.840.1.607912.3.579.2. 356 1987 Unknown [id number] 2.16.840.1.194179.3.579.2. 196 1987 Unknown [id number] 2.16.840.1.198127.3.579.2. 1259 1987 Unknown [id number] 2.16.840.1.793491.3.579.2. 9 1987 Unknown [id number] 2.16.840.1.738989.3.579.2. 1259 1987 Unknown [id number] 2.16.840.1.677069.3.579.2. 9 1987 Unknown [id number] 2.16.840.1.269740.3.579.2. 1259 1987 Unknown [id number] 2.16.840.1.803845.3.579.2. 1259 1987 Unknown [id number] 2.16.840.1.994650.3.579.2. 1259 1987 Unknown [id number] 2.16.840.1.296211.3.579.2. 1259 1959 Medicaid [id number] Medicaid [place] Advantage [id number] Self-pay Self Pay [id number] Unknown [place] BC/BS [id number] Unknown [id number] Unknown HCAP/HFA/FAP Active [id number] Social History Date Type Detail Facility Start: 12-24-2020 End: 02-06-2023 Tobacco smoking status NHIS Never smoked tobacco (finding) [facility] Start: 1985 Sex Assigned At Female F [facility] Start: 06-13-2012 End: 02-06-2023 Tobacco use and exposure Smokeless tobacco non-user [facility] Work Phone: Start: 07-28-2022 End: 10-29-2024 Alcohol intake Current non-drinker of alcohol (finding) [facility] Start: 01-12-2023 End: 01-21-2025 No caffeine use No caffeine use [facility] Start: 01-12-2023 End: 01-21-2025 Tobacco use panel [facility] Adult Depression Screening Assessment 2 [facility] Start: 07-28-2022 Gender identity Identifies as female gender (finding) [facility] Start: 07-28-2022 Sexual orientation Heterosexual (fin ding) [facility] Start: 06-11-2024 End: 10-22-2024 Sex Female (finding) [facility] Start: 06-23-2024 End: 01-28-2025 Alcoholic beverage intake Lifetime non-drinker (finding) [facility] Start: 01-08-2023 Alcohol Comment Caffeine: none [facility] Start: 1985 Sex assigned at Not on file [facility] NEGATED: Highlighted row [facility] Goals Date Patient Goal Desired Activity /State [...] as it can treat both conditions. Start [id number] mg BID. Recommend patient take medication with [...] weeks, follow up documented in this encounter [facility] 01-21-2025 History of Present illness Narrative Images [...] Account Name: Sher[place] Negron NPI: Ban Bedolla [id number] Cellulitis of left thumb L03.012 Related Medications clindamycin (Cleocin) 300 MG capsule Take 1 capsule by mouth bid x 7 days Next Visit: 1 week documented in this encounter [facility] 01-21-2025 History of Present illness Narrative CHIEF [...] success. For severe headaches, Valium, diclofenac, and Pompeys Pillar are used. If headaches become too severe, [...] Oral As needed Diclofenac Oral As needed Pompeys Pillar Oral As needed PREVIOUS MEDS: Qulipta Oral [...] in all four extremities, including at least physician/internist, finger abductors, biceps, triceps, deltoid, toe flexors [...] her current regimen of Valium, diclofenac, and Pompeys Pillar. 2. Sleep disturbances. She experiences significant sleep disturbances, sleeping only 2-4 non-consecutive hours per night, often waking up due to neck pain and discomfort. The dosage of Mirapex will be increased to 3 mg at bedtime to improve sleep quality. The prescription will be sent to [facility] in [place]. 3. RLS and this is worse and [...] treatment. This clinical note was created utilizing [employer] documentation system. All information has been thoroughly reviewed, corrected as necessary, and authenticated by the provider to ensure accuracy and completeness. On occasion, [employer] ambient documentation system erroneously drops words or replaces a spoken word with a similar sounding word. Please notify with any questions or concerns regarding this clinical note. documented in this encounter [facility] 11-25-2024 History of Present illness Narrative Images [...] Visit: 2 months documented in this encounter [facility] 11-20-2024 History of Present illness Narrative [...] therapy, muscle relaxers, and Botox injections at [facility] in [place]. The Botox injections have been effective in managing her spasms but have not improved her mobility. Over the past 6 months, her condition has deteriorated, leading her to consider discontinuing the Botox treatment. She has been under the care of a nurse practitioner at [facility] for routine neurological check-ups for over [...] various medications for her migraines, including Valium, Pompeys Pillar, and diclofenac, which have provided some relief. 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 Sleep: She reports poor sleep quality, often tossing and turning due to pain. FAMILY HISTORY - Negative for dystonia or stiff neck in family history. MEDICATIONS CURRENT MEDS: Botox Every 90 days Mirapex 1 mg Oral Twice daily Tylenol Oral Motrin Oral Tizanidine Oral Zanaflex Oral PREVIOUS MEDS: Valium Oral Pompeys Pillar Oral Diclofenac Oral Nurtec Ubrelvy Aimovig Imitrex [...] in all four extremities, including at least physician/internist, finger abductors, biceps, triceps, deltoid, toe flexors [...] 7. This clinical note was created utilizing [employer] documentation system. All information has been thoroughly [...] in 8 weeks. documented in this encounter [facility] 11-11-2024 History of Present illness Narrative [...] Visit: 2 weeks documented in this encounter [facility] 10-29-2024 Note HNO ID: [id number] Author: HARMAN SULLIVAN MD Service: ? Author [...] brought in by patient? No Lot #: [id number] Exp: 09/2026 Dilution: 5 units/0.1 ml (100 [...] Optional follow pain # units L R Shuttle Threader 10 units divided in 2 sites XXXXXXX [...] in Treatment Plan? No Harman Sullivan MD [facility] 10-29-2024 History of Present illness Narrative BOTOX [...] brought in by patient? No Lot #: [id number] Exp: 09/2026 Dilution: 5 units/0.1 ml (100 [...] Optional follow pain # units L R Shuttle Threader 10 units divided in 2 sites XXXXXXX [...] Harman Sullivan MD documented in this encounter [facility] 09-17-2024 Radiology Diagnostic study note [facility] [place] [address] [place] [address] CT Scan Report Signed Patient: Brittanie Garcia MR# : [id number] : 1985 Acct:[id number] Age/Sex: 39 / F ADM Date: 5 Loc: ER Room: Type: [facility] ER Attending Dr: Copies to: DO [...] Jr., D.O. 09/17/2024 8:21 AM Dictation Location: [place] [address] Transcribed By: JADEN 09/17/24820 Dictated By: Prince Heath Jr, DO 09/17/2418 Signed By: 09/17/2421 [facility] 09-17-2024 Hospital Discharge instructions Additional Instructions Your CAT scan showed that you have kidney stones, but they are not stuck anywhere and so they are not causing your pain today. Take Motrin Tylenol as needed for pain. Take Keflex as prescribed for UTI which may be causing your pain. Follow-up with PCP for recheck next 5 to 7 days. [facility] Work Phone: 07-30-2024 Note HNO ID: [id number] Author: HARMAN SULLIVAN MD Service: ? Author [...] brought in by patient? No Lot #: [id number] Exp: 09/2026 Dilution: 5 units/0.1 ml (100 [...] Optional follow pain # units L R Shuttle Threader 10 units divided in 2 sites XXXXXXX [...] in Treatment Plan? No Harman Sullivan MD [facility] 07-30-2024 History of Present illness Narrative BOTOX [...] brought in by patient? No Lot #: [id number] Exp: 09/2026 Dilution: 5 units/0.1 ml (100 [...] Optional follow pain # units L R Shuttle Threader 10 units divided in 2 sites XXXXXXX [...] Harman Sullivan MD documented in this encounter [facility] 06-23-2024 History of Present illness Narrative [...] see her PRN documented in this encounter [facility] 01-30-2024 Note HNO ID: [id number] Author: HARMAN SULLIVAN MD Service: ? Author [...] brought in by patient? No Lot #: [id number] Exp: 03/2026 Dilution: 5 units/0.1 ml (100 [...] Optional follow pain # units L R Shuttle Threader 10 units divided in 2 sites XXXXXXX [...] in Treatment Plan? No Harman Sullivan MD [facility] 01-30-2024 History of Present illness Narrative BOTOX [...] brought in by patient? No Lot #: [id number] Exp: 03/2026 Dilution: 5 units/0.1 ml (100 [...] Optional follow pain # units L R Shuttle Threader 10 units divided in 2 sites XXXXXXX [...] Harman Sullivan MD documented in this encounter [facility] 11-01-2023 Telephone encounter Note We may need to start reserving some slots for Botox if I'm booking out more than 3 months. Is that something escalating to admin can accomplish? Maybe having like 3 follow up slots a week for botox that revert to regular if not booked a few weeks before that date. [facility] 11-01-2023 Miscellaneous Notes We may need [...] 29 and after. documented in this encounter [facility] 10-31-2023 History of Present illness Narrative [...] BOTOX brought in by patient? No Lot #:[id number] Exp: 10/2025 Dilution: 5 units/0.1 ml (100 [...] Optional follow pain # units L R Shuttle Threader 10 units divided in 2 sites XXXXXXX [...] Harman Sullivan MD documented in this encounter [facility] 10-31-2023 Telephone encounter Note Placed at desk for review. [facility] 10-31-2023 Miscellaneous Notes Placed at desk for review. Patient brought in [facility] paperwork for Dr. Sullivan to fill out. Forms placed in providers mailbox. documented in this encounter [facility] 10-31-2023 Telephone encounter Note Patient needs a botox appointment slot opened anytime January 29 and after. [facility] 10-31-2023 Telephone encounter Note Patient brought in [facility] paperwork for Dr. Sullivan to fill out. Forms placed in providers mailbox. [facility] 10-19-2023 Telephone encounter Note Per Epic referral, Botox is approved. 10/16/23 to 10/14/24 200 units every 12 weeks Called patient, and she is agreeable to using the SunOctober 30 slot to get her Botox in [place]. Per Dr. Sullivan, she does not need to then also keep her November 05 appt. [facility] 10-19-2023 Miscellaneous Notes Per Epic referral, Botox is approved. 10/16/23 to 10/14/24 200 units every 12 weeks Called patient, and she is agreeable to using the SunOctober 30 slot to get her Botox in [place]. Per Dr. Sullivan, she does not need to then also keep her November 05 appt. Prior Authorization PENDING Medication/ Treatment: BOTOX Submitted Via Epic Referral Attempted to submit via phone to expedite request, but plan does not allow this. documented in this encounter [facility] 10-18-2023 Miscellaneous Notes Images from the original note were not included. Robert Menchaca APRN.BEE TENDER You6 minutes ago (8:35 AM) I can for this time, but Dr. Hernandez moving forward as he is managing her neck tightness. PRATIBHA Mccullough, RN, BA documented in this encounter [facility] 10-18-2023 Telephone encounter Note Images from the original note were not included. Robert Menchaca APRN.BEE TENDER You6 minutes ago (8:35 AM) I can for this time, but Dr. Hernandez moving forward as he is managing her neck tightness. PRATIBHA Mccullough, RN, BA [facility] Work Phone: 10-11-2023 Telephone encounter Note Prior Authorization PENDING Medication/ Treatment: BOTOX Submitted Via Epic Referral Attempted to submit via phone to expedite request, but plan does not allow this. [facility] 10-03-2023 Telephone encounter Note Images from the original note were not included. Robert Menchaca APRN.BEE TENDER You6 minutes ago (3:03 PM) As she is now working with movement disorder for this concern, I would defer this to their team. PRATIBHA Mccullough, RN, BA [facility] Work Phone: 10-03-2023 Miscellaneous Notes Images from the original note were not included. Robert Menchaca APRN.BEE TENDER You6 minutes ago (3:03 PM) As she is now working with movement disorder for this concern, I would defer this to their team. PRATIBHA Mccullough, RN, BA documented in this encounter [facility] 09-21-2023 Instructions Harman Sullivan MD - [...] can increase further documented in this encounter [facility] 09-21-2023 Telephone encounter Note Requested image transfer from [facility] [place] for most recent head/ neck imaging. [facility] 09-21-2023 History of Present illness Narrative [...] normal Reviewed referral records from Robert Menchaca [facility] Assessment/Plan Assessment & Plan: Brittanie Garcia [...] next month for Botox. Harman Sullivan MD [facility] Neurology documented in this encounter [facility] 09-21-2023 Miscellaneous Notes Requested image transfer from [facility] for most recent head/ neck imaging. documented in this encounter [facility] 09-13-2023 Telephone encounter Note Images from the original note were not included. Robert Menchaca APRN.ZULMA You 58 minutes ago (1:58 PM) Keep the appointment until she sees Dr. Sullivan on September 20. PRATIBHA Mccullough, RN, BA [facility] Work Phone: 09-13-2023 Miscellaneous Notes Images from the original note were not included. Robert Menchaca APRN.ZULMA Bailey 58 minutes ago (1:58 PM) Keep the appointment until she sees Dr. Sullivan on September 20. PRATIBHA Mccullough, RN, BA documented in this encounter [facility] 04-16-2024 History of Present illness Narrative Brittanie Garcia is a 38 year old female. Patient presents with: Follow Up Today I had the opportunity to have a virtual visit with Brittanie Garcia I have communicated my name and active licensure. The patient's identity and physical location were verified at the time of this visit. Either the patient or their legal contact representative has been informed of the risks [...] seeing the movement disorder clinic here at [facility] for an opinion about her cervical dystonia [...] which included preparing to see the patient, avhh-eu-bdxw patient care, completing clinical documentation, obtaining and/or reviewing separately obtained history, and counseling and educating the patient/family/caregiver. There is no problem list on file for this patient. No orders found for this visit on 09/04/23. Robert Menchaca MSN, INVOICE CONTROL CLERK, TAPE DUPLICATOR-C documented in this encounter [facility] 02-19-2023 Miscellaneous Notes Images from the original note were not included. Robert Menchaca APRN.BEE TENDER You 1 minute ago (12:27 PM) Thank you. This is a normal value. PRATIBHA Louis, RN, BA Images from the original note were not included. Evonne GAMBOA BSN, RN, BA Scanned in medical records from [facility] for review documented in this encounter [facility] 02-09-2023 Miscellaneous Notes Images from the original note were not included. Robert Menchaca APRN.CNP You 2 minutes ago (10:23 AM) Reviewed. PRATIBHA Louis, RN, BA Scanneed in medical records from [facility] for review documented in this encounter [facility] 01-19-2023 Miscellaneous Notes Images from the original note were not included. Robert Menchaca, LONNY.BEE TENDER You 21 minutes ago (8:34 AM) I sent cyclobenzaprine (Flexeril) 5 mg at bedtime as needed PRATIBHA Mccullough, RN, BA documented in this encounter [facility] 01-12-2023 History of Present illness Narrative [...] Most likely receiving 65 units between procerus, christmas tree grower, frontalis, and temporalis muscles. Only receiving 90 [...] Tizanidine Methocarbamol Metaxalone Carisoprodol She does have Pompeys Pillar prescribed for the neck pain. 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 Finger extensor 5/5. Finger flexor 5/5. Pronation [...] clonus of ankles. Coordination: Finger-to- nose-finger and mkvh-gw-nscw intact bilaterally. No ataxia of arms. No [...] seeing the movement disorder clinic here at [facility] for an opinion about her cervical dystonia [...] which included preparing to see the patient, lxof-fk-pfqf patient care, completing clinical documentation, obtaining and/or reviewing separately obtained history, performing a medically appropriate examination, counseling and educating the patient/family/caregiver, and ordering medications, tests, or procedures. There is no problem list on file for this patient. Office Visit on 01/12/23 CBC FERRITIN BLD IRON + TIBC VITAMIN B12 BLOOD COMP METABOLIC PANEL CONSULT TO NEUROLOGY Robert SLOAN, INVOICE CONTROL CLERK, TAPE DUPLICATOR-C 1. The nursing staff and medical assistants [...] your PCP/referring physician documented in this encounter [facility] 08-11-2022 Instructions Nayely Limon APRN.CNP - 08/11/2022 10:44 AM EDT Please send MRI result to us. Placed a consult for neuromuscular. Please call [phone] for appointments. I would suggest to bring your MRI (CD) to this appointment. Placed a consult for functional medicine. Please call [phone] for appointments. Follow up as needed documented in this encounter [facility] 08-11-2022 History of Present illness Narrative Images from the original note were not included. Rheumatology FOLLOW UP VISIT Date of Service: 08/11/2022 Patient: Brittanie Garcia Medical Record: [id number] Primary Care Physician: Filiberto Ying MD Last Rheumatology visit: 07/28/2022 (with Nayely Limon) I have communicated my name and active licensure. The patient's identity and physical location were verified at the time of this visit. 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 Started Seeing pain management since April for headache and neck pain. She has Pompeys Pillar takes once a week. Hx of restless [...] Clinical Fibromyalgia Diagnostic Criteria questionnaire Questionnaire scores: Celestine sleepiness scale: 15 (Normal < 10) MDQ (mood disorder questionnaire): 6 (Normal < 7) PHQ (patient health questionnaire): depression 10 (Normal < 5), anxiety 9 (Normal < 5) Fibromyalgia evaluation: Wide spread pain scale (WPI) 7, symptom severity (SS) 9 The patient meets the 2016 ACR ([place] [employer]) revised criteria for fibromyalgia [...] an optimal response to treatment. Nayely Limon APRN.BEE TENDER Return if symptoms worsen or fail to [...] Time: 8:44 AM documented in this encounter [facility] 07-28-2022 Instructions Nayely Limon APRN.CNP - 07/28/2022 1:58 PM EST Obtain lab and XR today Follow up in 10-14 days documented in this encounter [facility] 07-28-2022 History of Present illness Narrative Images from the original note were not included. Rheumatology CONSULTATION Date of Service: 07/28/2022 Patient: Brittanie Garcia Medical Record: [id number] Primary Care Physician: Filiberto Ying MD, MD Last Rheumatology visit: 07/28/2022 (with Nayely Limon) Referring Provider: Kenna Sheehan [address] [place] [id number] Brittanie Garcia is here today at request of Kenna Sheehan PA-C specifically for consultation of my opinion in regards to the chief complaint listed below. 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 Started Seeing pain management since April for headache and neck pain. She has Pompeys Pillar takes once a week. Hx of restless [...] Take 1 mg by mouth once daily. Otmjlwfu-Is-Tbr-Fe-FA (P-D CARTER PLUS) Tab Take 1 tablet [...] - XR CHEST 2V FRONTAL/LAT Nayely Limon APRN.BEE TENDER Return in about 10 days (around 08/07/2022). I spent a total of 75 minutes on the date of the service which included preparing to see the patient, igjd-qz-zsim patient care, completing clinical documentation, obtaining and/or [...] Time: 2:07 PM documented in this encounter [facility] 07-06-2022 Note CONSULTATION CONSULTATION DATE: 07/06/2022 [...] no difference. She was also started on Pompeys Pillar 5/325 daily p.r.n., which she says is helpful. We obtained a cervical x-ray back in January, which shows very minimal pathology between C2 and C3 discs. At this time, procedures are not indicated. Medications includes Pompeys Pillar 5/325 daily, baclofen 10 mg b.i.d., Ambien [...] time, our clinic will just maintain her Pompeys Pillar 5/325 daily p.r.n. She will continue for treatments with [facility]. I did recommend, however, to continue with self massage and to trial home cervical traction. We will see the patient in three months' time to maintain her medications and patient is in agreement. [facility] 04-06-2022 Note CONSULTATION PAIN MANAGEMENT CONSULTATION [...] stated that today she has seen an wind turbine service technician due to having lock jaw episodes. Activities that aggravate her pain are working on the computer, lying down, early childhood assistant hours and sleep. She describes her [...] agrees to this plan. [facility] 03-02-2022 Note CONSULTATION CONSULTATION DATE: 03/02/2022 [...] as pushing, pulling, lying down, early childhood assistant hours and housework aggravate her pain. [...] questions are answered today. [facility] 02-16-2022 Note CONSULTATION CONSULTATION DATE: 02/16/2022 [...] worsened at that time. 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 [facility] Chief complaint Narrative - Reported BRITTANIE [...] she has no rebound tachycardia.Recommendations, obtain [facility] monitoring, tilt table test, refer to either EP or syncope clinic, I can follow-up on a as needed basis, as there is no interventional necessity at this time [facility] [address] DO Work Phone: Chief complaint Narrative [...] Notably she has no rebound tachycardia.Recommendations, obtain [employer] monitoring, tilt table test, refer to either [...] Notably she has no rebound tachycardia.Recommendations, obtain Tune monitoring, tilt table test, refer to either EP or syncope clinic, I can follow-up on a as needed basis, as there is no interventional necessity at this time [facility] [address] DO Work Phone: Chief complaint Narrative [...] No assessment inform ation available [facility] Work Phone: Evaluation note Diagnosis Neck pain, chronic Cervicalgia [facility] Neck pain, chronic- Primary Cervicalgia [facility] Diagnosis Neck pain, chronic- Primary Cervicalgia Fibromyalgia Mylagia and myositis, unspecified [facility] Diagnosis Cervical dystonia- Primary Spasmodic torticollis Neck tightness Unspecified musculoskeletal disorders and symptoms referable to neck RLS (restless legs syndrome) Restless legs syndrome (RLS) [facility] Diagnosis Onset Date Resolution Status Left breast mass acute [facility] Work Phone: Evaluation note* Diagnosis Cervical dystonia- Primary Spasmodic torticollis [facility] Diagnosis Chronic migraine without aura, with intractable migraine, so stated, with status migrainosus- Primary Neck pain Cervicalgia RLS (restless legs syndrome) Restless legs syndrome (RLS) [facility] Diagnosis Chronic migraine without aura, with intractable migraine, so stated, with status migrainosus- Primary Neck pain Cervicalgia [facility] Diagnosis Chronic migraine without aura, with intractable migraine, so stated, with status migrainosus- Primary Neck pain Cervicalgia [facility] Diagnosis Fibroadenoma of breast, right- [facility] Chronic migraine without aura, with intractable migraine, so stated, with status migrainosus- Primary Neck pain Cervicalgia [facility] Diagnosis Onset Date Resolution Status Admit Date Cervical spondylosis acute October 22, 2024 3:41pm Headache, chronic migraine w ithout aura, intractable acute October 22, 2024 3:41pm Occipital neuralgia acute October 22, 2024 3:41pm Other chronic pain acute October 222024 3:41pm [facility] Work Phone: Evaluation note* Diagnosis Other rosacea- Primary documented in this encounter [facility]* Diagnosis Other rosacea- Primary Inflamed skin tag documented in this encounter [facility]* Diagnosis Cervical dystonia- Primary Spasmodic torticollis RLS (restless legs syndrome) Restless legs syndrome (RLS) documented in this encounter [facility]* Diagnosis Cellulitis of left thumb- Primary documented in this encounter [facility]* Diagnosis RLS (restless legs syndrome)- Primary Restless legs syndrome (RLS) Cervical dystonia Spasmodic torticollis Cervicogenic headache Headache Intractable chronic migraine without aura and with status migrainosus documented in this encounter [facility]* Diagnosis Other rosacea- Primary Cellulitis of left thumb [facility] Additional Instructions DISCHARGE INSTRUCTIONS FOR [...] pain unless a prescription was provided.[facility] Work Phone: Hospital Discharge instructions Additional [...] pain unless a prescription was provided.[facility] Work Phone: Hospital Discharge instructions Additional Instructions If your symptoms return/worsen or you develop any further concerns or symptoms please see your doctor or return to the emergency department immediately. It is imperative that you go over today's visit and all results with your primary care provider.[facility] Work Phone: Reason for referral (narrative)* Diagnostic Procedure Only (Routine) - Closed Specialty Diagnoses / Procedures Referred By Contac t Referred To Contact XR IMAGING Diagnoses Neck pain, chronic Procedures XR CERV OTHER 4V AP/LAT/OBL RADEX SPINE CERVICAL 4 OR 5 VIEWS Nayely Limon APRN.BEE TENDER [address] [place] [address] Xr Imaging Referral ID Status Reason Start Date Expiration Date V isits Requested Visits Authorized [id number] Closed Auto-Generate d Referral 07/28/2022 08/27/2023 1 1 [facility] for referral (narrative)* Diagnostic Procedure Only (Routine) - Closed Specialty Diagnoses / Procedures Referred By Contac t Referred To Contact XR IMAGING Diagnoses Neck pain, chronic Procedures XR CERV OTHER 4V AP/LAT/OBL RADEX SPINE CERVICAL 4 OR 5 VIEWS Nayely Limon APRN.BEE TENDER [address] [place] [id number] Xr Imaging Referral ID Status Reason Start Date Expiration Date V isits Requested Visits Authorized [id number] Closed Auto-Generate d Referral 07/28/2022 08/27/2023 1 1 [facility] for visit Narrative* Diagnostic Procedure Only (Routine) - Closed Specialty Diagnoses / Procedures Referred By Contac t Referred To Contact XR IMAGING Diagnoses Neck pain, chronic Procedures XR CERV OTHER 4V AP/LAT/OBL RADEX SPINE CERVICAL 4 OR 5 VIEWS Nayely Limon APRN.BEE TENDER [address] [place] [id number] Xr Imaging Referral ID Status Reason Start Date Expiration Date V isits Requested Visits Authorized [id number] Closed Auto-Generate d Referral 07/28/2022 08/27/2023 1 1 [facility] Chief Complaint and Reason for Visit [...] :44pm neck spams, back pain, cough, fever [facility] 2024 7:42am Chief Complaint Admit Date Neck Spasms June 19, 2024 1 :44pm neck spams, back pain, cough, fever [facility] 2024 7:42am chest pain/rt rib & arm pain September 17, 2024 5:00am Chief Complaint Admit Date neck spams, back pain, cough, fever [facility] 2024 7:42am chest pain/rt rib & [...] [facility] 60-74 MINUTES Nayely Limon APRN.BEE TENDER [address] [place] [id number] Referral ID Status Reason Start Date Expiration Date Visits Requested Visits Authorized [id number] Authorized PCP Requested Referral 08/11/2022 08/11/2023 1 1 Specialty Diagnoses / Procedures Referred By Contac t Referred To Contact Diagnoses Fibromyalgia Procedures CONSULT TO FUNCTIONAL MEDICINE OFFICE/OUTPATIENT [facility] 60-74 MINUTES Nayely Limon APRN.BEE TENDER [address] [place] [phone] Referral ID Status Reason Start Date Expiration Date Visits Requested Visits Authorized [id number] Authorized PCP Requested Referral 08/11/2022 08/11/2023 1 1 Specialty Diagnoses / Procedures Referred By Contac t Referred To Contact Neurology Diagnoses Cervical dystonia Neck tightness Procedures CONSULT TO NEUROLOGY OFFICE/OUTPATIENT [facility] 60-74 MINUTES Robert Menchaca, INVOICE CONTROL CLERK.BEE TENDER [id number] [place] [id number] Referral ID Status Reason Start Date Expiration Date Visits Requested Visits Authorized [id number] Pending Review PCP Requested Referral 01/12/2023 01/12/2024 1 1 Specialty Diagnoses / Procedures Referred By Contac t Referred To Contact Neurology Diagnoses Cervical dystonia Procedures CONSULT TO NEUROLOGY OFFICE/OUTPATIENT [facility] 60 MINUTES Robert Menchaca, INVOICE CONTROL CLERK.BEE TENDER [phone] [place] [phone] Referral ID Status Reason Start Date Expiration Date Visits Requested Visits Authorized [id number] Authorized PCP Requested Referral 09/04/2023 09/03/2024 1 [...] Active Kenna Sheehan PA-C Attending Provider Active Etl Developer Relationship Specialty Start Date End Date Filiberto Ying MD PCP - General Family Medicine 06/05/12 Kenna Sheehan PA-C [address] [place] [id number] Referring Neurology 07/19/22 Etl Developer Relationship Specialty Start Date End Date Filiberto Ying MD PCP - General Family Medicine 06/05/12 Kenna Sheehan PA-C [address] [place] [id number] Referring Neurology 07/19/22 Etl Developer Relationship Specialty Start Date End Date Filiberto Ying MD PCP - General Family Medicine 06/05/12 Kenna Sheehan PA-C [address] [place] [id number] Referring Neurology 07/19/22 Etl Developer Relationship Specialty Start Date End Date Filiberto Ying MD PCP - General Family Medicine 06/05/12 Kenna Sheehan PA-C [address] [place] [phone] Referring Neurology 07/19/22 Etl Developer Relationship Specialty Start Date End Date Filiberto Ying MD PCP - General Family Medicine 06/05/12 Kenna Sheehan PA-C [address] [phone] Referring Neurology 07/19/22 Etl Developer Relationship Specialty Start Date End Date Filiberto Ying MD PCP - General Family Medicine 06/05/12 Kenna Sheehan PA-C [address] [phone] Referring Neurology 07/19/22 Etl Developer Relationship Specialty Start Date End Date Filiberto Ying MD PCP - General Family Medicine 06/05/12 Kenna Sheehan PA-C [address] [phone] Referring Neurology 07/19/22 Team Status: Inactive Member Role Status Dates Filiberto Ying MD Primary Care Provider Active Robert Menchaca APRN TAPE DUPLICATOR- Attending Provider Active Etl Developer Relationship Specialty Start Date End Date Filiberto Ying MD PCP - General Family Medicine 06/05/12 Kenna Sheehan PA-C [address] [address] Referring Neurology 07/19/22 Etl Developer Relationship Specialty Start Date End Date Filiberto Ying MD PCP - General Family Medicine 06/05/12 Kenna Sheehan PA-C [address] [address] Referring Neurology 07/19/22 Etl Developer Relationship Specialty Start Date End Date Filiberto Ying MD PCP - General Family Medicine 06/05/12 Kenna Sheehan PA-C [address] [phone] Referring Neurology 07/19/22 Etl Developer Relationship Specialty Start Date End Date Filiberto Ying MD PCP - General Family Medicine 06/05/12 Kenna Sheehan PA-C [address] [phone] Referring Neurology 07/19/22 Etl Developer Relationship Specialty Start Date End Date Filiberto Ying MD PCP - General Family Medicine 06/05/12 Kenna Sheehan PA-C [address] [address] Referring Neurology 07/19/22 Etl Developer Relationship Specialty Start Date End Date Filiberto Ying MD PCP - General Family Medicine 06/05/12 Kenna Sheehan PA-C [address] [place] [place] [phone] Referring Neurology 07/19/22 Etl Developer Relationship Specialty Start Date End Date Filiberto Ying MD PCP - General Family Medicine 06/05/12 Kenna Sheehan PA-C [address] [address] Referring Neurology 07/19/22 Team Status: Inactive Member Role Status Dates Filiberto Ying MD Primary Care Provider Active Start: January 28, 2024 End: January 28, 2024 Dano Pyle DO Attending Provider Active Start: January 28, 2024 End: January 28, 2024 Etl Developer Relationship Specialty Start Date End Date Filiberto Ying MD PCP - General Family Medicine 06/05/12 Kenna Sheehan PA-C [address] [phone] Referring Neurology 07/19/22 Team Status: Inactive Member Role Status Dates Filiberto Ying MD Primary Care Provider Active Start: June 10, 2024 End: June 10, 2024 Dano Plye DO Attending Provider Active Start: June 10, [...] June 19, 2024 End: June 19, 2024 Etl Developer Relationship Specialty Start Date End Date Filiberto Ying MD [address] [place] [address] PCP - General Family Medicine 12/12/22 Etl Developer Relationship Specialty Start Date End Date Filiberto Ying MD PCP - General Family Medicine 06/05/12 Kenna Sheehan PA-C [address] [place] [address] Referring Neurology 07/19/22 Team Status: Inactive Member [...] October 22, 2024 End: October 22, 2024 Etl Developer Relationship Specialty Start Date End Date Filiberto Ying MD PCP - General Family Medicine 06/05/12 Kenna Sheehan PA-C [address] [address] Referring Neurology 07/19/22 Etl Developer Relationship Specialty Start Date End Date Filiberto Ying MD PCP - General Family Medicine 12/12/22 Etl Developer Relationship Specialty Start Date End Date Filiberto Ying MD PCP - General Family Medicine 12/12/22 Etl Developer Relationship Specialty Start Date End Date Filiberto Ying MD [address] [place] [facility] [address] PCP - General Family Medicine 12/12/22 Etl Developer Relationship Specialty Start Date End Date Filiberto Ying MD [address] [place] [facility] [address] PCP - General Family Medicine 12/12/22 Etl Developer Relationship Specialty Start Date End Date Filiberto Ying MD [address] [facility], [facility] PCP - General Family Medicine 12/12/22 Etl Developer Relationship Specialty Start Date End Date Filiberto Ying MD [address] [facility], [facility] PCP - General Family Medicine 12/12/22 Etl Developer Relationship Specialty Start Date End Date Filiberto Ying MD [address] [facility], [facility] PCP - General Family Medicine 12/12/22 Etl Developer Relationship Specialty Start Date End Date Filiberto Ying MD [address] [place] [facility] [address] PCP - General Family Medicine 12/12/22 Etl Developer Relationship Specialty Start Date End Date Filiberto Ying MD [address] [place] [facility] [address] PCP - General Family Medicine 12/12/22 Etl Developer Relationship Specialty Start Date End Date Filiberto Ying MD [address] [place] [facility] [place] [address] PCP - General Family Medicine 12/12/22 Etl Developer Relationship Specialty Start Date End Date Filiberto Ying MD [address] [place] [phone] PCP - General Family Medicine 12/12/22 Goals [...] any alcohol or drug abuse patient.[facility] the event this information is protected by the Federal Confidentiality of Alcohol and Drug Abuse Patient Records regulations: The Federal rules restrict any use of the information to criminally investigate or prosecute any alcohol or drug abuse patient.[facility] HospitalIn the event this information is protected by the Federal Confidentiality of Alcohol and Drug Abuse Patient Records regulations: The Federal rules restrict any use of the information to criminally investigate or prosecute any alcohol or drug abuse patient.[facility] HospitalIn the event this information is protected by the Federal Confidentiality of Alcohol and Drug Abuse Patient Records regulations: The Federal rules restrict any use of the information to criminally investigate or prosecute any alcohol or drug abuse patient.[facility] HospitalIn the event this information is protected by the Federal Confidentiality of Alcohol and Drug Abuse Patient Records regulations: The Federal rules restrict any use of the information to criminally investigate or prosecute any alcohol or drug abuse patient.[facility] HospitalIn the event this information is protected by the Federal Confidentiality of Alcohol and Drug Abuse Patient Records regulations: The Federal rules restrict any use of the information to criminally investigate or prosecute any alcohol or drug abuse patient.[facility] HospitalIn the event this information is protected by the Federal Confidentiality of Alcohol and Drug Abuse Patient Records regulations: The Federal rules restrict any use of the information to criminally investigate or prosecute any alcohol or drug abuse patient.[facility] HospitalIn the event this information is protected by the Federal Confidentiality of Alcohol and Drug Abuse Patient Records regulations: The Federal rules restrict any use of the information to criminally investigate or prosecute any alcohol or drug abuse patient.[facility] HospitalIn the event this information is protected by the Federal Confidentiality of Alcohol and Drug Abuse Patient Records regulations: The Federal rules restrict any use of the information to criminally investigate or prosecute any alcohol or drug abuse patient.[facility] HospitalIn the event this information is protected by the Federal Confidentiality of Alcohol and Drug Abuse Patient Records regulations: The Federal rules restrict any use of the information to criminally investigate or prosecute any alcohol or drug abuse patient.[facility] HospitalIn the event this information is protected by the Federal Confidentiality of Alcohol and Drug Abuse Patient Records regulations: The Federal rules restrict any use of the information to criminally investigate or prosecute any alcohol or drug abuse patient.[facility] HospitalIn the event this information is protected by the Federal Confidentiality of Alcohol and Drug Abuse Patient Records regulations: The Federal rules restrict any use of the information to criminally investigate or prosecute any alcohol or drug abuse patient.[facility] HospitalIn the event this information is protected by the Federal Confidentiality of Alcohol and Drug Abuse Patient Records regulations: The Federal rules restrict any use of the information to criminally investigate or prosecute any alcohol or drug abuse patient.[facility] HospitalIn the event this information is protected by the Federal Confidentiality of Alcohol and Drug Abuse Patient Records regulations: The Federal rules restrict any use of the information to criminally investigate or prosecute any alcohol or drug abuse patient.[facility] HospitalIn the event this information is protected by the Federal Confidentiality of Alcohol and Drug Abuse Patient Records regulations: The Federal rules restrict any use of the information to criminally investigate or prosecute any alcohol or drug abuse patient.[facility] HospitalIn the event this information is protected by the Federal Confidentiality of Alcohol and Drug Abuse Patient Records regulations: The Federal rules restrict any use of the information to criminally investigate or prosecute any alcohol or drug abuse patient.[facility] HospitalIn the event this information is protected by the Federal Confidentiality of Alcohol and Drug Abuse Patient Records regulations: The Federal rules restrict any use of the information to criminally investigate or prosecute any alcohol or drug abuse patient.[facility] HospitalIn the event this information is protected by the Federal Confidentiality of Alcohol and Drug Abuse Patient Records regulations: The Federal rules restrict any use of the information to criminally investigate or prosecute any alcohol or drug abuse patient.[facility] HospitalIn the event this information is protected by the Federal Confidentiality of Alcohol and Drug Abuse Patient Records regulations: The Federal rules restrict any use of the information to criminally investigate or prosecute any alcohol or drug abuse patient.[facility] HospitalIn the event this information is protected by the Federal Confidentiality of Alcohol and Drug Abuse Patient Records regulations: The Federal rules restrict any use of the information to criminally investigate or prosecute any alcohol or drug abuse patient.[facility] HospitalIn the event this information is protected by the Federal Confidentiality of Alcohol and Drug Abuse Patient Records regulations: The Federal rules restrict any use of the information to criminally investigate or prosecute any alcohol or drug abuse patient.[facility] HospitalIn the event this information is protected by the Federal Confidentiality of Alcohol and Drug Abuse Patient Records regulations: The Federal rules restrict any use of the information to criminally investigate or prosecute any alcohol or drug abuse patient.[facility] HospitalIn the event this information is protected by the Federal Confidentiality of Alcohol and Drug Abuse Patient Records regulations: The Federal rules restrict any use of the information to criminally investigate or prosecute any alcohol or drug abuse patient.[facility] HospitalIn the event this information is protected by the Federal Confidentiality of Alcohol and Drug Abuse Patient Records regulations: The Federal rules restrict any use of the information to criminally investigate or prosecute any alcohol or drug abuse patient.[facility] HospitalIn the event this information is protected by the Federal Confidentiality of Alcohol and Drug Abuse Patient Records regulations: The Federal rules restrict any use of the information to criminally investigate or prosecute any alcohol or drug abuse patient.[facility] Reason for Visit (unrecogniz ed section and content) Reason Comments Botox Injection Specialty Diagnoses / Procedures Referred By Contac t Referred To Contact Neurology / ADULT NEUROLOGY Diagnoses Chronic migraine without aura, intractable, with status migrainosus F/u hold for botox Procedures BOTULINUM TOXIN A PER 1 UNIT EST NI PATIENT Harman Sullivan MD Phone: tel: fax: Harman Sullivan MD [address] [place] [id number] Phone: tel: fax: Referral ID Status Reason Start Date Expiration Date V isits Requested Visits Authorized [id number] Authorized 10/15/2024 10/14/2025 99 99 Reason Comments Neck Pain Reason Comments Neck Pain Follow up Reason Comments New Patient Reason Comments Results [facility] Reason Comments Results [facility] Reason Comments Follow Up Reason Onset Date Comments Refill Request 09/15/2023 Reason Comments Request Outside Medical Records Reason Comments Cervical Dystonia Specialty Diagnoses / Procedures Referred By Contac t Referred To Contact Neurology Diagnoses Cervical dystonia Procedures CONSULT TO NEUROLOGY OFFICE/OUTPATIENT [facility] 60 MINUTES Robert Menchaca, LONNY.BEE TENDER [phone] [place] [phone] Referral ID Status Reason Start Date Expiration Date V isits Requested Visits Authorized [id number] Closed PCP Requested Referral 09/04/2023 09/03/2024 1 1 Reason Onset Date Comments Refill Request 10/18/2023 Reason Comments Insurance Authorization Botox Specialty Diagnoses / Procedures Referred By Contac t Referred To Contact ADULT NEUROLOGY Diagnoses Chronic migraine without aura, intractable, with status migrainosus Procedures BOTULINUM TOXIN A PER 1 UNIT CHEMODERVATE FACIAL/TRIGEM/CERV MUSC MIGRAINE Harman Sullivan MD [address] [place] [address] [place] [address] Neur Chrsi [address] [facility] [place] [address] Referral ID Status Reason Start Date Expiration Date V isits Requested Visits Authorized [id number] Authorized 10/11/2023 10/14/2024 99 99 Reason Comments Appointment Reason Comments 1st po Exc. bilateral breast masses Specialty Diagnoses / Procedures Referred By Contac t Referred To Contact General Surgery Diagnoses Hospital followup status post surgery Procedures [place] [facility] [address] [place] [address] Dano Pyle, DO [address] [address] Phone: tel: fax: Referral ID Status Reason Start Date Expiration Date Visits Re quested Visits Authorized [id number] Closed 06/17/2024 12/14/2024 1 1 Specialty Diagnoses / Procedures Referred By Contac t Referred To Contact ADULT NEUROLOGY Diagnoses Chronic migraine without aura, intractable, with status migrainosus Procedures BOTULINUM TOXIN A PER 1 UNIT CHEMODERVATE FACIAL/TRIGEM/CERV MUSC MIGRAINE Harman Sullivan MD [address] [place] [address] [place] [address] Phone: tel: fax: Neurology [address] [place] [address] [place] [address] Phone: tel: fax: Referral ID Status Reason Start Date Expiration Date Visits Requested Visits Authorized [id number] Authorized Financial Clearance Required - [employer] 10/11/2023 10/14/2024 99 99 Reason Comments Follow-up Reason Comments Nail changes Reason Comments Migraine Restless Legs INFORMATION SOURCE (unrecogn ized section and content) DATE CREATED AUTHOR 09/07/2022 [facility] DATE CREATED AUTHOR AUTHOR'S ORGANIZ ATION 11/15/2022 [employer] DATE CREATED AUTHOR AUTHOR'S ORGANIZ ATION 01/01/2023 [facility] DATE CREATED AUTHOR AUTHOR'S ORGANIZ ATION 02/04/2023 [facility] DATE CREATED AUTHOR AUTHOR'S ORGANIZ ATION 02/22/2024 [facility] DATE CREATED AUTHOR AUTHOR'S ORGANIZ ATION 09/18/2024 [facility] DATE CREATED AUTHOR AUTHOR'S LINDA ATION 11/01/2024 [facility] DATE CREATED AUTHOR AUTHOR'S ORGANABILIO ATION 01/30/2025 [facility] FOR RECORDS PERTAINING TO PATIENTS WHO ARE [...] BE BASED ON THE PRIMARY CLINICAL RECORDS. [facility] [employer] provides no warranty or guarantee of the accuracy or completeness of information in this document.
[2025-02-07 08:06] LABS: Hematocrit 43.2 % (36.0-48.0); Hemoglobin 14.1 g/dL (12.0-16.0); Immature Granulocytes Abs Auto 0.02 10^3/uL (0.00-0.03); Immature Granulocytes Pct Auto 0.3 % (0.0-0.5); Lymphocytes Absolute Auto 2.4 10^3/uL (1.2-3.8); Mean Corpuscular HGB Conc 32.6 g/dL (29.9-35.2); Mean Corpuscular Hemoglobin 29.1 pg (26.7-34.0); Mean Corpuscular Volume 89.1 fL (81.0-99.0); Platelet Count 302 10^3/uL (150-450); Red Blood Count 4.85 10^6/uL (4.20-5.40); White Blood Count 6.9 10^3/uL (4.0-11.0)
[2025-02-07 09:09] LABS: Alanine Aminotransferase 24 U/L (14-59); Albumin Globulin Ratio 1.0; Albumin Level 3.6 g/dL (3.4-5.0); Alkaline Phosphatase 64 U/L (46-116); Anion Gap 11.8; Aspartate Amino Transferase 15 U/L (15-37); Blood Urea Nitrogen 11.0 mg/dL (7.0-18.0); Calcium 9.2 mg/dL (8.5-10.1); Carbon Dioxide 28.3 mmol/L (21.0-32.0); Chloride 105 mmol/L (98-107); Cholesterol 234 mg/dL (<=200); Estimated GFR (African America >60 (>=60 mL/min/1.73m^2); Estimated GFR (Non-African Ame >60 (>=60 mL/min/1.73m^2); Free T3 2.49 pg/mL (2.18-3.98); Globulin 3.6 g/dL; Glucose 88 mg/dL (74-106); HDL Cholesterol 60 mg/dL (40-60); Potassium 4.1 mmol/L (3.5-5.1); Sodium 141 mmol/L (136-145); Thyroid Stimulating Hormone 0.478 uIU/mL (0.358-3.740); Total Protein 7.2 g/dL (6.4-8.2); Triglycerides 209 mg/dL (<=150); VLDL CHOLESTEROL 41.8 mg/dL
[2025-02-07 10:12] LABS: Iron 128.0 ug/dL (50.0-170.0)
== END 2025-02-07 06:53 | disposition home or self-care (01) ==
PROVIDERS: PCP Family Medicine; Visit Provider Family Medicine
DX: Z00.00 Encounter for general adult medical examination without abnormal findings (principal); E55.9 Vitamin D deficiency, unspecified
CPT/HCPCS: 36415; 80053; 80061; 82306; 82533; 83036; 83525; 83540; 84436; 84443; 84481; 85025

== ENCOUNTER 2025-03-30 16:39 | Emergency (ER) | payer OTHER, SELFPAY ==
--- OUTSIDE RECORDS SUMMARY | 2022-04-25 08:00 | XMS_ITS | Continuity of Care Document ---
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 Name Role Phone Will Massey DDS Unavailable Unavail able Medications Medication Instructions Dosage Effective Dates (start - stop) Status Comments Mirapex 1 mg tablet take 1 tablet by ora l route 3 times every day - Active biotin 10,000 mcg capsule - Active Zetia 10 mg tablet take 1 tablet by ora l route every day 10 MG - Active doxepin 10 mg capsule take 1 capsule by oral route 3 times every day 10 MG - Active ferrous sulfate 325 mg (65 mg iron) tablet take 1 tablet by oral route every day 325 MG - Active ferrous sulfate 325 mg (65 mg iron) tablet take 1 tablet by oral route every day 325 MG - Active Zyrtec 10 mg capsule - Active baclofen 20 mg tablet take 1 tablet by o ral route 4 times every day 20 MG - Active Effexor XR 37.5 mg capsule,extended release take 1 capsule by oral route every day with food 37.5 MG - Active Ambien 10 mg tablet take 1 tablet by ora l route every day at bedtime 10 MG - Active minocycline 100 mg capsule take 1 capsule by oral route every 12 hours 100 MG - Active propranolol 20 mg tablet take 1 tablet by oral route 3 times every day 20 MG - Active simvastatin 40 mg tablet take 1 tablet by oral route every day in the evening 40 MG - Active Procedures Procedure Date Panoramic Film Oral Hygiene Instruction Limited Oral Eval Advance Directives Directive Yes / No Effective Date File Name No Information Encounters Encounter Description Practice Location Reason(s) For Visit Diagnoses Date Provider Providers Copied on Encounter [facility], [address] [place], [place], [id number], tel:[phone] Dental Clinic ext (chief complaint) Encounter for screening for dental disorders Bryson Solis. [address] [facility], [place], [place], [id number], [place]. tel:[phone] Family History Family Member Type Diagnosis Age At Onset No Information Payers Payer name Insurance type Covered republican ID Noa montano(s) D Medicaid [facility] [id number] Social History Type Description Quantity Date Captured Comments Alcohol Use Details Unknown Caffeine Use Details Unknown Tobacco Use Status No Information Smoking Status No Information Sex Female Sexual Orientation Straight or heterosexual Gender Identity Female Vital Signs Date / Time: Height Weight BMI Pulse Rate Blood Pressure Temperature Respiratory Rate Body Surface Area Head Circumference Head Circ. Percentile Wt./Eron. Percentile BMI percentile Pulse Ox Inhaled Ox 12:56 PM 62 /min 105/71 mm[Hg] 98.00 F Chief Complaint And Reason For Visit From encounter dated '04/25/2022 13:00'. ext (chief complaint). Description: ext Reason For Referral Reason For Referral No Information Plan Of Treatment Date Type Action Status Goal PRAPARE ASSESSMENT. Due on D due Goal RLP. Due on due Goal Depression screening. Due on due Goal Influenza vaccine. Due on due Goal Tdap. Due on due History Of Present Illness Encounter Date Complaint History Of Prese nt Illness ext ext Functional Status Date Functional Assessmen t No Information Instructions Date Instruction Additional Infor mation No Information Assessments Type Assessment Date No Information Patient Care Teams Name Effective Dates (start - stop) Status Members No Information
[2025-03-30 16:42] VITALS: BP 99/66; TEMP 36.5; O2SAT 100; BMI 31.5
--- OUTSIDE RECORDS SUMMARY | 2025-03-30 17:12 | XMS_ITS | Clinical Summary ---
Author Organization [facility] Address [address] [place] [address], [address] [place] [address] Care Team Providers Care Senior Net Application Developer Name Role Phone Unavailable Primary Care Provider Unavailabl e Social History Tobacco UseTypesPacks/DayYears UsedDateSmoking Tobacco: Never Assessed CommentsUnknownSex and Gender InformationValueDate RecordedSex Assigned at Not on fileLegal MwgNszqss07/24/2013 10:16 PM EDTGender IdentityNot on file Sexual OrientationNot on file Plan of Treatment Not on file
--- OUTSIDE RECORDS SUMMARY | 2025-03-30 17:12 | XMS_ITS | Encounter Summary ---
Author Organization [facility] Address [address] [facility] [place] [address] Care Team Providers Care Scrap Crane Operator Name Role Phone Danny Obrien MD Primary Care Provider [phone] Reason for Visit * ReasonCommentsMed Change Request Encounter Details DateTypeDepartmentCare Team (Latest Contact Info)Ceurixpxnnl45/03/2025Refill [facility] [address] [facility] [address] [place] [phone] Dominic Irby MD [address] [facility] [address] [place] [phone] Intractable chronic migraine without aura and with status migrainosus Social History Tobacco UseTypesPacks/DayYears UsedDateSmoking Tobacco: NeverSmokeless Tobacco: NeverAlcohol UseStandard Drinks/WeekCommentsNever0 (1 standard drink = 0.6 oz pure alcohol)Caffeine: noneCommentsNoSex and Gender InformationValueDate RecordedSex Assigned at BirthNot on fileLegal PhgOofkpt47/15/2023 7:15 PM EDT Gender IdentityNot on fileSexual OrientationNot on filedocumented as of this encounter Plan of Treatment DateTypeDepartmentCare Team (Latest Contact Info)Kzkwmbhoyld16/25/2025 8:30 AM ESTOffice Visit [facility] [address] [place] [address] Tommie Raymond DO [address] [facility] [place] [address] documented as of this encounter Visit Diagnoses Diagnosis Intractable chronic migraine without aura and with status migrainosus documented in this encounter Care Teams Team MemberRelationshipSpecialtyStart DateEnd Danny Obrien MD [address] [place] [phone] PCP - GeneralFamily Medicine12/12/22documented as of this encounter
--- OUTSIDE RECORDS SUMMARY | 2025-03-30 17:13 | XMS_ITS | Clinical Summary ---
Author Organization [facility] Healthcare Address [address] [place] [address] Care Team Providers Care Mica Plate Layer Name Role Phone Danny Obrien MD Primary Care Provider [phone] Allergies Active AllergyReactionsCriticalityNoted DateCommentsCaffeineGI intolerance, YedydzqZtahlg46/24/2013 Other Reaction(s): Vomiting NlyaleqnebhonuwcbXxpwtod84/28/0579PzgahdgnapXsvdcAprohk18/12/2025 Other Reaction(s): Other: See Comments Severe restless leg flare up WyaezbyizapkaeGpgcu82/28/2025 Other Reaction(s): Worsens restless leg QautbukilgNmefyjsbSmw27/12/0633DuoownhesdnyGvyeu86/03/2025Wound Dressing AdhesiveUnknown,HyjlVku8307/28/2022 Medications MedicationSigDispense QuantityRefillsLast FilledStart DateEnd DateStatus ondansetron ODT (Zofran-ODT) 4 MG disintegrating tablet 10/31/2022ctive pyridoxine (B-6) 100 MG tablet Take 100 mg by mouth in the morning.Active tiZANidine (Zanaflex) 4 MG tablet 1 (one) time each day at the same timeActive OnabotulinumtoxinA (BOTOX IJ) Active cyclobenzaprine (Flexeril) 5 MG tablet Take 5 mg by mouth as needed at bedtimeActive diazePAM (Valium) 10 MG tablet Active cetirizine (ZyrTEC) 10 MG tablet Take 10 mg by mouth in the morning.07/27/2022ctive HYDROcodone-acetaminophen (Burns) 5-325 MG tablet Take 0.5 tablets by mouth Daily as kxiilv8003/21/2023ctive diclofenac (Voltaren) 50 MG EC tablet Indications:Neck painTAKE 1 TABLET BY MOUTH TWICE A DAY NEEDED FOR 10 DAYS 20 tablet 01/22/2024ctive Ivermectin (Soolantra) 1 % cream Indications:Other rosaceaApply thin layer to face, once daily at bedtime, 30 day supply 45 g 1105Active doxepin (SINEquan) 10 MG capsule 09/18/2024tive traZODone (Desyrel) 50 MG tablet 1 (one) time each day at the same time5Active pramipexole (Mirapex) 1 MG tablet Indications:RLS (restless legs syndrome)Take 3 tablets (3 mg) by mouth at bedtime 90 tablet 5Active doxycycline (Monodox) 100 MG capsule Indications:Cellulitis of left thumbTake 1 capsule, by mouth, BID, 30 days 60 capsule 5Active cyproheptadine (Periactin) 4 MG tablet Indications:Intractable chronic migraine without aura and with status migrainosusTAKE 1 TABLET BY MOUTH AT BEDTIME 90 tablet 5Active cyproheptadine (Periactin) 4 MG tablet Indications:Intractable chronic migraine without aura and with status migrainosusTake 1 tablet (4 mg) by mouth at bedtime 30 tablet 5105/23/2024Discontinued Active Problems ProblemNoted DateDiagnosed DateTrapezius muscle spasm01/21/2025bdominal pain 11/20/2024bnormal ultrasound of ebmeqi1711/20/2024bnormal weight gain11/20/2024 Utctjcivs09/03/2025hange in bowel habit11/20/20246435Szbzbykkhgotxw39/03/2025 Elevated blood pressure reading without diagnosis of aanzccyirpmc00/03/2025 Female pelvic congestion lsbamsjd72/03/2025Migraine without aura, intractable, with status sipisrhahtg72/03/2025Other gsqaexo1511/20/2024Pain in female genitalia on slaojaenwjm94/03/2025Pelvic and perineal pain11/20/2024Vaginal dryness 11/20/2024Fibroadenoma of breast, right06/23/2024Mass of upper outer quadrant of right egytod1106/09/2024Mass of lower outer quadrant of right togwvm0706/09/2024 Mrkbvyzk39/04/2024ervicogenic muwvteqw78/04/7693Uvchhrg29/04/2024Neck pain 08/23/2023hronic migraine without aura08/23/2023Insomnia, dejrwlthvhj90/04/2024 Daytime frcggollhs95/04/2278Golyzrc92/04/3500Aistfvw06/04/2024Intracranial FOUNDRY MELT SUPERVISOR gpfapqgs50/04/2024LS (restless legs syndrome)08/23/2023Iron deficiency anemia, ymmuljwucpr85/04/2024ervical xsgxzkin12/04/2024iffuse pain08/23/2023Masses of both uzscjoh74/29/2023ifficulty huhfugjnx79/18/4138Aziparbixgfdyi98/18/2023 Intrauterine ([facility])07/25/2016Preterm labor ([facility])07/19/2016 Encounters DateTypeDepartmentCare YfjiQzujaczmcyh10/03/2025[facility] [address] [place] [address] Dominic Irby MD Intractable chronic migraine without aura and with status izcgederwil39/13/2025 [facility] [address] [place] [address] Dominic Irby MD Intractable chronic migraine without aura and with status migrainosus (Primary Dx)02/09/2025Telephone [facility] [place] [facility] [address] [place] [address] Raven Silveira MA 01/28/2025 11:15 AM EDTOffice Visit [facility] [address] [place] [address] Kayla Bedolla MD Other rosacea (Primary Dx); Cellulitis of left thumb01/28/2025amboo flowsheet [facility] [address] [place] [phone] Kayla Bedolla MD 01/28/20255142Vsezpb37/08/2025Results Follow-Up [facility] [address] [place] [phone] Kayla Bedolla MD Aerobic culture, JMJDSF6401/21/2025 2:00 PM EDTOffice Visit [facility] [address] [place] [phone] Kayla Bedolla MD Cellulitis of left thumb (Primary Dx)01/21/2025 8:00 AM EDTOffice Visit [facility] [address] [facility] [address] [place] [phone] Dominic Irby MD RLS (restless legs syndrome) (Primary Dx); Cervical dystonia; Cervicogenic headache; Intractable chronic migraine without aura and with status nxvmfefsmua76/03/2025 Orders Only [facility] External Department Unsolicited Kayla Bedolla MD 01/21/2025[facility] [address] [facility] [address] [place] [phone] Dominic Irby MD 01/21/2025amboo flowsheet [facility] [address] [place] [address] Dominic Irby MD 01/21/2025Travelfrom Last 3 Months Family History Medical HistoryRelationNameCommentsMigrainesMotherHypertensionOtherRelationName StatusCommentsBrotherAliveDaughter 1AliveDaughter 2AliveFatherAliveMotherAlive OtherSister 1AliveSister 2AliveSon 1AliveSon 2Alive Social History Tobacco UseTypesPacks/DayYears UsedDateSmoking Tobacco: NeverSmokeless Tobacco: Never Tobacco Cessation:Counseling Given: Not Answered Alcohol UseStandard Drinks/WeekCommentsNever0 (1 standard drink = 0.6 oz pure alcohol)Caffeine: noneCommentsNoSex and Gender InformationValueDate RecordedSex Assigned at BirthNot on fileLegal FgrWmdcue13/15/2023 7:15 PM EDT Gender IdentityNot on fileSexual OrientationNot on file Last Filed Vital Signs Vital SignReadingTime TakenCommentsBlood Krufvmqa340/7901/21/2025 8:00 AM EDT Sygmb733401/21/2025 8:00 AM EDTTemperature--Respiratory Rate--Oxygen Saturation-- Inhaled Oxygen Concentration--Mecsnv92.9 kg (163 lb)01/21/2025 8:00 AM EDTHeight 157.5 cm (5' 2 )01/21/2025 8:00 AM EDTBody Mass Index29.8101/21/2025 8:00 AM EDT Plan of Treatment DateTypeDepartmentCare Team (Latest Contact Info)Elnafltsylw26/25/2025 8:30 AM ESTOffice Visit [facility] [address] [place] [address] Tommie Raymond, [address] [place] [address] [place] [address] Procedures Procedure NamePriorityDate/TimeAssociated DiagnosisCommentsRESULTRoutine 01/21/2025 2:36 PM EDT CULTURE, AEROBIC CQDWHTWMHjepnhw43/03/2025 2:36 PM EDT from Last 3 Months Results * RESULT (01/21/2025 2:36 PM EDT)ComponentValueRef RangeTest MethodAnalysis Time Performed AtPathologist SignatureRESULTCommentLABCORPComment:No growth in 36 - 48 hours.Specimen (Source)Anatomical Location / LateralityCollection Method / VolumeCollection TimeReceived Time01/21/2025 2:36 PM EDT01/21/2025 Narrative [facility] - 01/24/2025 10:07 AM EDT Performed at: - [address], [place], [place] ??[id number] Medical Planner: Bentley Leggett PhD, Phone: ??[phone] Authorizing ProviderResult TypeResult StatusEmily Chan BETANCOURT BLOOD ORDERABLESFinal ResultPerforming OrganizationAddressCity/State/ZIP CodePhone Number [facility] * Aerobic culture (01/21/2025 2:36 PM EDT)ComponentValueRef RangeTest Method Analysis TimePerformed AtPathologist SignatureCULTURE, AEROBIC BACTERIAFinal reportLABCORPSpecimen (Source)Anatomical Location / LateralityCollection Method / VolumeCollection TimeReceived Time01/21/2025 2:36 PM EDT01/21/2025 Narrative [facility] - 01/24/2025 10:07 AM EDT Performed at: - [facility] [address] ??[id number] Medical Planner: Bentley Leggett PhD, Phone: ??[phone] Authorizing ProviderResult TypeResult StatusEmily Chan BETANCOURT MICROBIOLOGY - GENERAL ORDERABLESFinal ResultPerforming OrganizationAddressCity/State/ZIP Code Phone Number [facility] from Last 3 Months Insurance [facility]: [facility] [id number] [place] [id number] Care Teams Team MemberRelationshipSpecialtyStart DateEnd Date Danny Obrien MD [address] [facility] [place] [address] PCP - [facility]12/12/22
--- OUTSIDE RECORDS SUMMARY | 2025-03-30 17:13 | XMS_ITS | Clinical Summary ---
Author Organization [facility] Address [address] [place] [address] Care Team Providers Care Electromechanical Technologist Name Role Phone Danny Obrien MD Primary Care Provider [phone] Kenna Sheehan PA-C Unavailable [phone] Allergies Active AllergyReactionsCriticalityNoted DateCommentsAdhesiveRash,Other: See XqshdepjEyxlzh94/10/2023 Rash and blisters MdsfeabfKfdpxwupVhxkru94/24/2013DheShortness of TdrborPxwd08/24/2013Droperidol Other: See BvrszywqUahypl32/12/2025 Severe restless leg flare up DwoulmssiaZrbyqlchEze51/12/2023 Medications MedicationSigDispense QuantityRefillsLast FilledStart DateEnd DateStatus cetirizine (ZYRTEC) 10 mg tablet 10 mg once daily.07/27/2022ctive diazePAM (VALIUM) 10 mg tablet Take 10 mg by mouth twice daily as needed.06/13/2022ctive HYDROcodone-acetaminophen (NORCO) 5-325 mg per tablet as needed.06/29/2022ctive pramipexole (MIRAPEX) 1 mg tablet Take 2 mg by mouth daily at bedtime.06/28/2022ctive Minocycline HCl 100 mg tablet Take 100 mg by mouth once daily.Active cyclobenzaprine (FLEXERIL) 5 mg tablet Take 1 tablet by mouth at bedtime as needed. 30 tablet ctive gabapentin (NEURONTIN) 600 mg tablet Indications:RLS (restless legs syndrome)Take 1 tablet by mouth daily at bedtime for 180 days. 30 tablet ctive Additional Information Patient not taking.Reason: Discontinued by Patient, Reported on 02/23/2025 baclofen 10 mg tablet Take 1 tablet by mouth once daily as needed. 30 tablet 10/18/2023ctive Additional Information Patient not taking.Reason: Discontinued by Patient, Reported on 02/23/2025 tiZANidine (ZANAFLEX) 4 mg tablet Take 8 mg by mouth daily at bedtime.5Active traMADol (ULTRAM) 50 mg tablet Take 50 mg by mouth.5Active doxycycline monohydrate (MONODOX) 100 mg capsule Take 1 capsule, by mouth, BID, 30 days5Active Encounters DateTypeDepartmentCare UfvfLlcxeaudzsx61/06/2025 10:00 AM EDTOffice Visit Neurology [address] [place] [address] [place] [phone] Samuel Lira MD Chronic migraine without aura, with intractable migraine, so stated, with status migrainosus (Primary Dx); Neck pain02/23/20256834Xuqhrm47/16/2025 Get Medical Advice Neurology [address] [place] [address] [place] [phone] Samuel Lira MD Needing an apptfrom Last 3 Months Immunizations ImmunizationAdministration DatesNext Duetetanus diphtheria pertussis (Tdap) vaccine, age 7+ yr (ADACEL, BOOSTRIX)01/04/2020,07/27/2016 Family History Medical HistoryRelationCommentsPsychiatryMaternal GrandfatherCancerMaternal GrandmotherlungDiabetesMaternal GrandmotherHeadacheMotherPsychiatryMotheranxiety and depressinCancerPaternal GrandfatherRelationStatusCommentsBrotherAlive Daughter 1AliveDaughter 2AliveFatherAliveMaternal GrandfatherAliveMaternal GrandmotherDeceasedMotherAlivePaternal GrandfatherDeceasedPaternal Grandmother AliveSister 1AliveSister 2Alive Social History Tobacco UseTypesPacks/DayYears UsedDateSmoking Tobacco: NeverSmokeless Tobacco: Never Tobacco Cessation:Counseling Given: Not Answered Alcohol UseStandard Drinks/WeekCommentsNo0 (1 standard drink = 0.6 oz pure alcohol)PHQ-2AnswerDate RecordedPHQ-2 jbfie489rea Deprivation Index AnswerDate RecordedNational Score (1-100), lower number is lower risk61 01/12/2023State Score (1-10), lower number is lower pbpv289ata from: https://www.neighborhoodatlas.[facility]/. Last address used for xyzzzrrvuql[address] [place], [place] [address]/12/2023CommentsNoSex and Gender InformationValueDate RecordedSex Assigned at KmhejUmvbjn12/10/2023 1:33 AM EST Legal LwmBxinfv48/16/2013 4:52 PM ESTGender AjlxjomiPzumwz63/10/2023 1:33 AM EST Sexual PjtormrplaxPfebffua27/10/2023 1:33 AM ESTOccupationIndustryJob Start Date Job End DateUNKNOWNNot on fileNot on fileNot on file Last Filed Vital Signs Vital SignReadingTime TakenCommentsBlood Ebajnwfd461/7110 9:52 AM EDT Lnivx228002/23/2025 9:52 AM SWRHwtcwhswfct33.6 ??C (97.8 ??F)07/28/2022 1:01 PM ESTRespiratory Bnnh954806/13/2012 9:35 AM ESTOxygen Upvbfmegym17%02/23/2025 9:52 AM EDTInhaled Oxygen Concentration--Ozoxrl63.4 kg (166 lb 1.9 oz)02/23/2025 9:52 AM CCXOekxqr562.5 cm (5' 2 )10/29/2024 4:09 PM EDTBody Mass Index30.38010/29/2024 4:09 PM EDT Plan of Treatment DateTypeDepartmentCare Team (Latest Contact Info)Mlseiouandc48/07/2026 8:30 AM ESTOffice Visit Neurology [address] [place] [address] [place] [address] Samuel Lira MD [address] [place] [address] Please schedule 3 and 6 month follow up Botox, split new slot if needed and let Jorge Alberto caruso know08/26/2025 11:30 AM EDTOffice Visit Neurology [address] [place] [address] [place] [address] Samuel Lira MD [address] [place] [address] Please schedule 3 and 6 month follow up Botox, split new slot if needed and let Jorge Alberto caruso knowHealth MaintenanceDue DateLast DoneCommentsAnxiety Screening 2005Depression Lokxrwftc99/19/2005HIV Oqbqioalr14/19/2005Hepatitis C Hgzadxbfd40/19/2005Hepatitis B Vaccine (1 of 3 - 19+ 3-dose series)2006 Cervical Cancer Nwjutaeec65/19/2008HPV Vaccine (1 - 3-dose SCDM series) 2014Covid-19 Vaccine (2024- season)2025Influenza Vaccine (#1) 2025DTaP,Tdap,Td Vaccine (3 - Td or Tdap), 07/27/2016 Insurance * Guarantor: Jovanna Bradley TypeRelation to PatientDate of PhoneBilling AddressPersonal/KdklhjQisv1985 na (Work) [address] [place] [address] Care Teams Team MemberRelationshipSpecialtyStart DateEnd Date Danny Obrien MD PCP - GeneralFamily Medicine06/05/12 Kenna Sheehan PA-C [address] [place] [address] ReferringNeurology07/19/22
--- OUTSIDE RECORDS SUMMARY | 2025-03-30 17:13 | XMS_ITS | Clinical Summary ---
Author Organization [facility] Address [address] [place] [address] Phone Care Team Providers Care Fish Hatchery Worker Name Role Phone Danny Obrien MD Primary Care Provider [phone] Allergies Active AllergyReactionsCriticalityNoted DateCommentsAdhesive Tape-Silicones Vmhgalx0701/05/20232623AthjvzwtJoffllj53/18/2023rasterone (Dhea)Zlsjrjs5101/05/2023 Medications MedicationSigDispense QuantityRefillsLast FilledStart DateEnd DateStatus baclofen (Lioresal) 10 mg tablet Take 1 tablet in AM 2 Tablet in PMActive ferrous sulfate 325 (65 Fe) MG EC tablet Take by mouth. Do not crush, chew, or split Take as directedActive fludrocortisone acetate (FLUDROCORTISONE ORAL) Take by mouth. Fludrocortisone Acetate 0.1 MG oral tablet, Take 1 tablet daily Active metoprolol succinate XL (Toprol-XL) 25 mg 24 hr tablet Take 1 tablet (25 mg) by mouth once daily. Do not crush or chew.Active minocycline (Dynacin) 100 mg tablet Take 1 tablet (100 mg) by mouth once daily at bedtime.Active pramipexole (Mirapex) 1 mg tablet Take 1 tablet (1 mg) by mouth once daily.Active simvastatin (Zocor) 40 mg tablet Take 1 tablet (40 mg) by mouth once daily at bedtime.Active ezetimibe (Zetia) 10 mg tablet Take 1 tablet (10 mg) by mouth once daily.Active cetirizine (ZyrTEC) 10 mg tablet Take 1 tablet (10 mg) by mouth once daily. As DirectedActive Active Problems ProblemNoted DateDiagnosed DateCervical /18/2023ifficulty breathing 01/05/20238389Dodzcojd03/18/6339Vpkediledmkxcu79/18/2023 Immunizations ImmunizationAdministration DatesNext DueTdap vaccine, age 7 year and older (BOOSTRIX, ADACEL)01/04/2020,07/27/2016 Family History Medical HistoryRelationNameCommentsHyperlipidemiaFatherHypertensionFather MigrainesMotherRelationNameStatusCommentsFatherMother Social History Tobacco UseTypesPacks/DayYears UsedDateSmoking Tobacco: Never Assessed CommentsUnknownSex and Gender InformationValueDate RecordedSex Assigned at Not on fileLegal FztSzaxwc23/25/2022 12:53 PM ESTGender IdentityNot on file Sexual OrientationNot on file Last Filed Vital Signs Vital SignReadingTime TakenCommentsBlood Lkkxiywl414/7411/14/2022 4:20 PM EDT Dlkvq195211/14/2022 4:20 PM EDTTemperature--Respiratory Rate--Oxygen Saturation-- Inhaled Oxygen Concentration--Fhckwk56.5 kg (162 lb)11/10/2022 8:58 AM EDTHeight 157.5 cm (5' 2 )11/14/2022 4:15 PM EDTBody Mass Index29.6306 8:58 AM EDT Plan of Treatment Health MaintenanceDue DateLast DoneCommentsHIV Kjhxryibw1987Lipid Panel 1987Yearly Adult Jjxrqpfl1987MMR Vaccines (1 of 1 - Standard series) 01/07/1988Diabetes Jgmzlgynt43/19/2005Hepatitis C Iuryyfbij47/19/2005Hepatitis B Vaccines (1 of 3 - 19+ 3-dose series)2006Cervical Cancer Screening 01/07/2008HPV/Eezwvu7701/07/2008Pap Smear01/07/2008HPV Vaccines (1 - 3-dose standard series)2014Influenza Vaccine (#1)5COVID-19 Vaccine (1 - 2024- season)2025DTaP/Tdap/Td Vaccines (3 - Td or Tdap)01/03/2030 01/04/2020, 07/27/2016Zoster Vaccines (1 of 2)2037HIB VaccinesAged OutNo longer eligible based on patient's age to complete this topicHepatitis A VaccinesAged OutNo longer eligible based on patient's age to complete this topic IPV VaccinesAged OutNo longer eligible based on patient's age to complete this topicMeningococcal VaccineAged OutNo longer eligible based on patient's age to complete this topicPneumococcal Vaccine: Pediatrics and At-Risk Adult Patients Aged OutNo longer eligible based on patient's age to complete this topic Rotavirus VaccinesAged OutNo longer eligible based on patient's age to complete this topic Insurance Care Teams Team MemberRelationshipSpecialtyStart DateEnd Date Danny Obrien MD [address] [place] [address] [facility]09/20/22
--- OUTSIDE RECORDS SUMMARY | 2025-03-30 17:15 | XMS_ITS | CCD ---
Author Organization [facility] Care Team Providers Care Gore Cutter Name Role Phone MD Filiberto Ying Primary Care Provider PURVI Sheehan Attending Provider [phone] STEPAN .DR DE LOS SANTOS Primary [...] [phone] DO Dano Pyle Attending Provider [phone] DO Roseanne Castellanos Attending Provider MD Romero Jones Referring Provider Isrrael, Dr. Soraya Mojica Attending Unavailab le Isrrael, Dr. Soraya Mojica Referring Unavailab le Stepan, Dr. Filiberto Fuller Primary Care Unavail able Unavailable Unavailable Filiberto Ying MD Primary Care Provider [phone] Kenna Sheehan PA-C [facility] Dr. Saeed Jean-Baptiste Attending Unavailable Stepna, Dr. Filiberto Fuller Primary Care Unavail [...] Provider DO Dano Pyle Attending Provider [phone] MD Filiberto Ying M Primary Care Provider Filiberto Ying MD Primary Care Provider [phone] MD Filiberto Ying M Primary Care Provider [phone] DO Dano Pyle Attending Provider [phone] Reuben Bauman MD Attending Unavailable Filiberto Ying MD Primary Care Provider [phone] Dano Pyle DO Attending Provider [phone] Babar Singh PA-C Emergency Provider Filiberto Ying MD Primary Care Provider [phone] Filiberto Ying MD Primary Care Provider [phone] Dano Pyle DO Attending Provider Babar Singh PA-C Emergency Provider Luis Goins DO Emergency Provider [phone] Filiberto Ying MD Primary Care Provider [phone] Peg Ruiz DO Emergency Provider [phone] Filiberto Ying MD Primary Care Provider [phone] Filiberto Ying MD Primary Care Provider [phone] Filiberto Ying MD Primary Care Provider [phone] DANO PYLE Attending Unavailable BAN BEDOLLA Attending Unavailable SIS IRBY Attending Unavailable PETKIRA, BAN Giles Attending Unavailable SIS IRBY Referring Unavailable SIS IRBY Attending Unavailable PETITTJulian, BAN A Attending Unavailable PETITTI, BAN A Attending Unavailable DAVID SULLIVAN Attending Unavailable WEISSWANG, DAVID Referring Unavailable HOY, FILIBERTO M Primary Care Unavailable WEISSFELD, DAVID Attending Unavailable WEISSFELD, DAVID Referring Unavailable HOY, IFLIBERTO M Primary Care Unavailable WEISSFELD, DAVID Attending Unavailable WEISSFELD, DAVID Referring Unavailable HOY, FILIBERTO M Primary Care Unavailable Hoy, Filiberto M Primary Care Unavailable Luis Goins Admitting Unavailable Luis Goins Attending Unavailable Filiberto Ying Primary Care Unavailable Peg Ruiz Admitting Unavailable Peg Ruiz Attending Unavailable Dano Pyle Attending Unavailable Filiberto Ying Primary Care Unavailable Jonas, Dano Admitting Unavailable Dano Pyle Attending Unavailable Filiberto Ying Primary Care Unavailable Jonas, Dano Admitting Unavailable Filiberto Ying Primary Care Unavailable Babar Singh Admitting Unavailable Babar Singh Attending Unavailable Filiberto Ying MD Primary Care Provider Allergies Allergy ClassificationReported Allergen(s)Allergy TypeDate of OnsetReaction(s) Facility (20 sources)Caffeine; Translations: [Caffeine]Drug Gpgbnvm43-14-2644Ytelfdyi, GI intolerance, [facility] (20 sources)DHE; Translations: [Dhe]Allergy to lsqldmtau14-30-3333Pjrxqkskq of [facility] ([facility])Adhesive agent; Translations: [ADHESIVE]Propensity to adverse reactions to egep14-80-7972Qmyng: See Comments, [facility] (20 sources)Adhesive Tape; Translations: [adhesive tape]Allergy to substance (finding)57-51-4209[facility]qcfHmfriqqasHolzer Hospital (9 sources)prasterone; Translations: [DHEA CAPS]Drug AllergyMP-[facility] 250 DO Work Phone: (20 sources)Metoprolol; Translations: [METOPROLOL]Drug Fhxuagy01-50-1959PmypwjbiGreen [facility] (20 sources)Metoclopramide; Translations: [metoclopramide]Drug Lylsukm72-85-6119 [facility] (20 sources)DihydroergotamineDrug Lqcjeaw92-27-8879BabxecgNBGR Healthcare (20 sources)Wound Dressing AdhesiveDrug Fabuthzsrgh11-78-9431IpilkchAugusta Health (6 sources)Droperidol; Translations: [DROPERIDOL]Drug Ultmhfp81-66-9106Wftdi: See [facility] (18 sources)Promethazine; Translations: [promethazine]Drug Fjjjlcn48-83-4423 [facility] (16 sources)DroperidolPropensity to adverse -07-7618GumpaLPRL Healthcare (1 source)DihydroergotamineDrug Hxayshb69-56-3428BpvjccuaaHolmes County [facility] (1 source)DroperidolDrug Griuueq20-22-2167SfpaydaimHolmes County [facility] Medications Current Medications MedicationDrug Class(es)DatesSig (Normalized)Sig (Original)baclofen 10 mg oral tablet (20 sources)gamma-Aminobutyric Acid-ergic AgonistStart: 10-18-2023 End: 08-79-6788swec 1 tablet by mouth once daily as neededbaclofen 10 mg tablet Take 1 tablet by mouth once daily as needed. 30 tablet 10/18/2023 ActiveStart: 06-28-2022 End: 38-65-7810xpyh 1 tablet by mouth every eight hours as neededbaclofen (LIORESAL) 10 mg tablet Take 10 mg by mouth every 8 hours as needed. 10 in AM, 20 in PM 0 06/28/2022 01/19/2023 DiscontinuedComment on above:Take 10 mg by mouth every 8 hours as needed. 10 in AM, 20 in PMcetirizine hydrochloride 10 mg oral tablet (20 sources)Histamine-1 Receptor AntagonistStart: 10-14-2019 End: 62-87-7230avvq 1 tablet by mouth in the morningcetirizine (ZyrTEC) 10 MG tablet Take 10 mg by mouth in the morning. 07/27/2022 ActiveComment on above:10 mg once daily.clindamycin 300 mg oral capsule (6 sources)Lincosamide AntibacterialStart: 01-21-2025 End: 10-35-8997qdet 1 capsule by mouth twice dailyclindamycin (Cleocin) 300 MG capsule Indications: Cellulitis of left thumb Take 1 capsule by mouth bid x 7 days 14 capsule 01/21/2025 01/28/2025 Discontinued (Therapy completed) cyclobenzaprine hydrochloride 5 mg oral tablet (20 sources)Muscle RelaxantStart: 01-19-2023 End: 20-12-0549ftpo 1 tablet by mouth every twenty-four hours as needed cyclobenzaprine (FLEXERIL) 5 mg tablet Take 1 tablet by mouth at bedtime as needed. 30 tablet 1 09/17/2023 ActiveStart: 10-14-2019 End: 65-43-9055nnfe 1 tablet by mouth once daily as needed for muscle spasms Cyclobenzaprine 10 mg tablet Discontinued 10 MG PO Daily as needed for Muscle Spasm October 14, 2019 12:00am May 01, 2023 12:55pmStart: 10-14-2019 End: 34-94-6717cyom 2 tablets by mouth once daily at bedtimeCyclobenzaprine 10 mg tablet Discontinued 20 MG PO Daily at bedtime October 14, 2019 12:00am May 01, 2023 12:55pmStart: 10-14-2019 End: 79-22-3482vyom 20 mg by mouth once daily at bedtimeCyclobenzaprine Discontinued 20 MG PO Daily at bedtime October 14, 2019 12:00am May 01, 2023 12:55pmComment on above:Take 1 tablet by mouth at bedtime as needed. cyproheptadine hydrochloride 4 mg oral tablet (4 sources)Start: 20-23-3771sgeq 1 tablet by mouth at bedtimecyproheptadine (Periactin) 4 MG tablet Indications: Intractable chronic migraine without aura and with status migrainosus TAKE 1 TABLET BY MOUTH AT BEDTIME 90 tablet 3 03/23/2025 ActiveStart: 03-02-2025 End: 61-03-9412xwzc 1 tablet by mouth at bedtimecyproheptadine (Periactin) 4 MG tablet Indications: Intractable chronic migraine without aura and with status migrainosus Take 1 tablet (4 mg) by mouth at bedtime 30 tablet 2 03/02/2025 03/23/2025 DiscontinuedStart: 06-13-2012 End: 42-74-4374rhbq 1 tablet by mouth three times dailycyproheptadine 4 mg tablet Take 1 tablet by mouth three times daily. 30 tablet 11 06/13/2012 023 Discontinued (Course of therapy completed)Comment on above:Take 1 tablet by mouth three times daily.diclofenac sodium 75 mg delayed release oral tablet (20 sources)Nonsteroidal Anti-inflammatory DrugStart: 26-12-2378esaf 1 tablet by mouth twice dailyDiclofenac Sodium 75 mg tablet,delayed release (DR/EC) Active 75 MG PO Twice daily October 22, 2024 12:00amStart: 74-66-5135gtdf 1 tablet by mouth twice daily as neededdiclofenac (Voltaren) 50 MG EC tablet Indications: Neck pain TAKE 1 TABLET BY MOUTH TWICE A DAY NEEDED FOR 10 DAYS 20 tablet 01/22/2024 ActiveStart: 06-29-2022 End: 37-77-1148urmwqzvvyh (VOLTAREN) 1 % topical gel as needed. 0 06/29/2022 09/21/2023 DiscontinuedComment on above:as needed.doxepin hydrochloride 10 mg oral capsule (20 sources)Tricyclic AntidepressantStart: 86-44-8236wonsfvk (SINEquan) 10 MG capsule 09/18/2024 ActiveStart: 10-14-2019 End: 52-98-7074hlsc 2 capsules by mouth once daily at bedtime as needed for headacheDoxepin 10 mg capsule Discontinued 20 MG PO Daily at bedtime as needed for HEADACHE October 14, 2019 12:00am December 24, 2020 12:23pmStart: 10-14-2019 End: 82-62-9885rqci 20 mg by mouth once daily at bedtimeDoxepin Discontinued 20 MG PO Daily at bedtime October 14, 2019 12:00am December 24, 2020 12:23pm doxycycline monohydrate 100 mg oral capsule (4 sources)Tetracycline-class DrugStart: 37-74-2480rgbw 1 capsule by mouth twice dailydoxycycline (Monodox) 100 MG capsule Indications: Cellulitis of left thumb Take 1 capsule, by mouth, BID, 30 days 60 capsule 11 01/28/2025 Active gabapentin 600 mg oral tablet (13 sources)Anti-epileptic AgentStart: 09-21-2023 End: 43-62-0448nqhc 1 tablet by mouth once daily at bedtimegabapentin (NEURONTIN) 600 mg tablet Indications: RLS (restless legs syndrome) Take 1 tablet by mouth daily at bedtime for 180 days. 30 tablet 5 09/21/2023 Active ivermectin 10 mg/ml topical cream (19 sources)Antiparasitic, PediculicideStart: 24-26-4200Guohdvroma (Soolantra) 1 % cream Indications: Other rosacea Apply thin layer to face, once daily at bedtime, 30 day supply 45 g 11 11/11/2024 Activeminocycline 100 mg oral capsule (20 sources)Tetracycline-class DrugStart: 11-11-2024 End: 16-24-4144oqfb 1 capsule by mouth once dailyminocycline 100 MG capsule Indications: Other rosacea Take 1 capsule, by mouth, once daily, 30 days30 capsule 11 11/11/2024 01/28/2025 Discontinued (Side effects)Start: 07-30-2023 End: 52-53-5792oeim 1 capsule by mouth once dailyminocycline 50 MG capsule Indications: Other rosacea Take 1 capsule, by mouth, every day, 30 days 30 capsule 11 07/30/2023 11/11/2024 Discontinued (Ineffective)Start: 10-14-2019 End: 46-71-6288mzwm 1 capsule by mouth once dailyMinocycline 50 mg capsule Discontinued 50 MG PO Daily October 14, 2019 12:00am May 01, 2023 12:55pm take 1 tablet by mouth once dailyMinocycline HCl 100 mg tablet Take 100 mg by mouth once daily. ActiveComment on above:Take 100 mg by mouth once daily. ondansetron 4 mg oral tablet (20 sources)Serotonin-3 Receptor AntagonistStart: 74-14-9012gcui 1 tablet by mouth every six hoursOndansetron Hcl 4 mg tablet Active 4 MG PO Every 6 hours October 22, 2024 12:00amStart: 10-31-2022 End: 23-60-2914liuddskotym ODT (Zofran-ODT) 4 MG disintegrating tablet 10/31/2022 ActiveStart: 28-81-0072xlgz 1 tablet by mouth four times daily as neededondansetron ODT (Zofran-ODT) 4 MG disintegrating tablet DISSOLVE 1 TABLET IN MOUTH 4 TIMES A DAY ASNEEDED 10/31/2022 ActiveStart: 12-24-2020 End: 65-19-1289rloh 1 tablet by mouth every six hours as needed for nausea and vomitingOndansetron Hcl (Zofran) 4 mg tablet Discontinued 4 MG PO Q6H as needed for nausea and vomiting 60 December 24, 2020 12:00am June 10, 2024 1:04pm Start: 10-14-2019 End: 01-62-0951xasw 1 tablet by mouth three times daily as needed for nausea and vomitingOndansetron 4 mg tablet,disintegrating Discontinued 4 MG PO Three times daily as needed for nausea and vomiting 7 2 October 14, 2019 12:00am May 01, 2023 12:55pmStart: 06-13-2012 End: 53-93-0047dxwbqypggzf, PF, 4 mg/2 mL Soln Indications: Headache(784.0) , Chronic migraine without aura, with intractable migraine, so stated, with status migrainosus Inject 8 mg intravenously as directed. INFUSE 8 mg in NS 50 ML IV OVER 30 MIN. May repeat x1 4 mL 0 06/13/2012 07/28/2022 Discontinued (Course of therapy completed)Comment on above:Inject 8 mg intravenously as directed. INFUSE 8 mg in NS 50 ML IV OVER 30 MIN. May repeat l5yrjcnztfiza dihydrochloride 1 mg oral tablet (20 sources)Nonergot Dopamine AgonistStart: 01-21-2025 End: 51-88-1564gobm 3 tablets by mouth at bedtimepramipexole (Mirapex) 1 MG tablet Indications: RLS (restless legs syndrome) Take 3 tablets (3 mg) by mouth at bedtime 90 tablet 3 01/21/2025 ActiveStart: 06-28-2022 End: 21-51-4983slaq 1 tablet by mouth in the morningpramipexole (Mirapex) 1 MG tablet Take 1 mg by mouth in the morning. 06/28/2022 01/21/2025 Discontinued (Reorder)Start: 39-38-8915kgvm 2 tablets by mouth once daily at bedtime pramipexole (MIRAPEX) 1 mg tablet Take 2 mg by mouth daily at bedtime. 06/28/2022 ActiveStart: 10-14-2019 End: 62-52-9785wkew 1 tablet by mouth once daily at bedtimePramipexole (Mirapex) 0.5 mg tablet Discontinued 0.5 MG PO Daily at bedtime October 14, 2019 12:00am D ec2022 12:53pmComment on above:Take 1 mg by mouth once daily. SZSTANDARD1 cream (1 source)Start: 65-80-1619LQEHAUGOAF6 cream Active 1 - 2 GM TOPICAL every 6 to 8 hours as needed for Pain 120 October 22, 2024 12:00am Buderer Compounded Item: Baclofen 2%, Cyclobenzaprine HCl 2%, Diclofenac Na 3%, Gabapentin 6%, Lidocaine HCl 2% Cream Sig: as directed rub 1 to 2 grams for 2 to 3 minutes every 6 to 8 hoursas needed TopicaltiZANidine 4 mg oral tablet (20 sources)Central alpha-2 Adrenergic AgonistStart: 15-63-0919mtpb 1 tablet by mouth once daily at bedtimeTizanidine 4 mg tablet Active 4 MG PO Daily at bedtime June 10, 2024 1:00amStart: 22-08-0456idZDXrynex (ZANAFLEX) 4 mg tablet Take 8 mg by mouth daily at bedtime. 06/08/2024 ActivetraMADol hydrochloride 50 mg oral tablet (7 sources)Opioid AgonistStart: 77-52-2266awgQOEbb (ULTRAM) 50 mg tablet Take 50 mg by mouth. 06/17/2024 ActiveStart: 06-17-2024 End: 16-57-6716eino 1 tablet by mouth every four to six hours as needed for pain Tramadol 50 mg tablet Discontinued 50 MG PO EVERY 4-6 HOURS as needed for pain 07 08June 17, 2024 1:00am August 01, 2024 8:23amtraZODone hydrochloride 50 mg oral tablet (11 sources)Serotonin Reuptake InhibitorStart: 63-80-3042fvqPKEkrz (Desyrel) 50 MG tablet 1 (one) time each day at the same time 12/12/2024 Activevitamin b6 100 mg oral tablet (20 sources)take 1 tablet by mouth in the morningpyridoxine (B-6) 100 MG tablet Take 100 mg by mouth in the morning. Active Completed/Discontinued Medications MedicationDrug Class(es)DatesSig (Normalized)Sig (Original)acetaminophen 300 mg / codeine phosphate 30 mg oral tablet (8 sources)Opioid AgonistStart: 05-15-2023 End: 44-11-1240fcxi 1 tablet by mouth every six hours as needed for pain Acetaminophen-Codeine 300-30 mg tablet Discontinued 1 TAB PO Q6H as needed for pain 07 10May 15, 2023 1:00am June 10, 2024 1:03pmacetaminophen 325 mg / HYDROcodone bitartrate 5 mg oral tablet (20 sources)Opioid AgonistStart: 06-19-2024 End: 87-76-8788ncam 1 tablet by mouth every six hours as needed for pain Hydrocodone-Acetaminophen 5-325 mg tablet Discontinued 1 TAB PO Q6H as needed for pain 12 3 2024August 01, 2024 8:23amStart: 03-21-2023 End: 07-80-2995etad 0.5 tablet by mouth every twenty-four hours as needed HYDROcodone-acetaminophen (Lena) 5-325 MG tablet Take 0.5 tablets by mouth Daily as needed 03/21/2023 ActiveStart: 77-95-0148SUFILnwgjml-acetaminophen (NORCO) 5-325 mg per tablet as needed. 06/29/2022 ActiveStart: 10-22-2019 End: 78-75-2032ooly 1 tablet by mouth every six hours as needed for pain Hydrocodone-Acetaminophen 5-325 mg tablet Discontinued 1 TAB PO Q6H as needed for pain 10 2 August 16, 2020 December 24, 2020 12:15pmStart: 10-14-2019 End: 30-72-4592oktp 1 tablet by mouth every eight hours as needed for pain Hydrocodone-Acetaminophen (Lena) 5-325 mg tablet Discontinued 1 TAB PO Q8H as needed for pain 10 2May 2019December 24, 2020 12:15pmComment on above:as needed.benzoyl peroxide 50 mg/ml topical solution (5 sources)Start: 07-30-2023 End: 34-27-9434ghpopaq peroxide 5 % external wash Indications: Other rosacea Apply to affected areas, then rinse daily, 30 day supply 227 g 11 07/30/2023 11/11/2024 Discontinuedbiotin 5 mg oral capsule (8 sources) End: 29-27-3958kffcql 5 MG capsule Take by mouth. 11/20/2024 Discontinued onabotulinumtoxina 100 unt injection (20 sources)Acetylcholine Release InhibitorStart: 10-29-2024 End: 71-39-3284pkztdc 1 dose by intramuscular injection every 30 maei907 Units, INTRAMUSCULAR, ONCE (UP TO 30 DAYS AMB), 1 dose, On Sun10/29/24 at 1730, This record documents the total dose provided to patient. See progress note for specific locations and amounts administered. REFRIGERATE - Pharmaceutical Waste: Lab Pack -Start: 10-29-2024 End: 68-20-3567dzpbcwkwkauf toxin type A 200 Units injection (BOTOX)Start: 07-30-2024 End: 80-32-2610ulnuyr 1 dose by intramuscular injection every 30 xdck285 Units, INTRAMUSCULAR, ONCE (UP TO 30 DAYS AMB), 1 dose, On Sun07/30/24 at 1700, This record documents the total dose provided to patient. See progress note for specific locations and amounts administered. REFRIGERATE - Pharmaceutical Waste: Lab Pack -Start: 07-30-2024 End: 46-15-0604bbyvsrtkznfm toxin type A 200 Units injection (BOTOX)Start: 01-30-2024 End: 08-45-7013zmwddb 1 dose by intramuscular injection every 30 mlmm189 Units, INTRAMUSCULAR, ONCE (UP TO 30 DAYS AMB), 1 dose, On Sun01/30/24 at 1500, This record documents the total dose provided to patient. See progress note for specific locations and amounts administered. REFRIGERATE - Pharmaceutical Waste: Lab Pack -Start: 01-30-2024 End: 56-63-2219xwgeavckzwcc toxin type A 200 Units injection (BOTOX)Start: 10-31-2023 End: 07-18-0434xcgydrbiqaxm toxin type A 200 Units injection (BOTOX)Start: 10-31-2023 End: 94-60-3772jtuwlnisdqft toxin type A 200 Units injection (BOTOX) OnabotulinumtoxinA (BOTOX IJ) ActiveOnabotulinumtoxinA (BOTOX IJ) Botox Active cefdinir 300 mg oral capsule (3 sources)Cephalosporin AntibacterialStart: 08-01-2024 End: 19-09-5647afxg 1 capsule by mouth twice dailyCefdinir 300 mg capsule Discontinued 300 MG PO Twice daily August 01, 2024 12:00am October 22, 2024 3 :52pmcephalexin 500 mg oral capsule (2 sources)Cephalosporin AntibacterialStart: 09-17-2024 End: 54-17-1138mfqr 1 capsule by mouth twice dailyCephalexin 500 mg capsule Discontinued 500 MG PO Twice daily 01 12September 17, 2024 12:00am October 22, 2024 3:52pmsugar-free cholestyramine resin 4000 mg powder for oral suspension (13 sources)Bile Acid SequestrantStart: 12-24-2020 End: 29-95-3380vpxi 1 dose by mouth onceCholestyramine-Aspartame (Questran Light) 4 gram powder Discontinued 4 GM PO before meals and at bedtime December 24, 2020 12:00am May 01, 2023 12:55pm no meds 1 hr before/4-6 hr after dosediazePAM 5 mg oral tablet (20 sources)BenzodiazepineStart: 06-19-2024 End: 08-10-3586vzma 1 tablet by mouth twice daily as needed for muscle spasms Diazepam (Valium) 5 mg tablet Discontinued 5 MG PO Twice daily as needed for muscle spasm 10 5 June 19, 2024 1:00am August 01, 2024 8:23amStart: 52-66-3258frvk 1 tablet by mouth every twelve hours as neededdiazePAM (VALIUM) 10 mg tablet Take 10 mg by mouth twice daily as needed. 06/13/2022 ActiveComment on above:Take 10 mg by mouth twice daily as needed.L Norgest/E.Estradiol-E.Estrad (20 sources)Progestin, Estrogen, Progestin-containing Intrauterine DeviceStart: 10-14-2019 End: 64-13-3561qhrc 1 tablet by mouth once dailyL Norgest/E.Estradiol-E.Estrad 0.15 mg-30 mcg (84)/10 mcg (7) tablets,dose pack,3 month Discontinued 1 TAB PO Daily October 14, 2019 12:00am May 01, 2023 12:55pmStart: 10-14-2019 End: 69-76-8849ucal 1 tablet by mouth once dailyL Norgest/E.Estradiol-E.Estrad 0.15 mg-30 mcg (84)/10 mcg (7) tablets,dose pack,3 month Discontinued 1 TAB PO Daily October 13, 2019 11:00pm May 01, 2023 11:55amStart: 10-14-2019 End: 07-47-9846otix 1 tablet by mouth once dailyL Norgest/E.Estradiol-E.Estrad Discontinued 1 TAB PO Daily October 14, 2019 12:00am May 01, 2023 12:55pm Start: 10-14-2019 End: 70-99-6200mkhz 1 tablet by mouth once dailyL Norgest/E.Estradiol-E.Estrad Discontinued 1 TAB PO Daily October 13, 2019 11:00pm May 01, 2023 11:55am Start: 17-85-8052qgdv 1 tablet by mouth once dailyL Norgest/E.Estradiol-E.Estrad Active 1 TAB PO Daily October 13, 2019 11:00pmStart: 20-83-0535kohu 1 tablet by mouth once dailyL Norgest/E.Estradiol-E.Estrad Active 1 TAB PO Daily October 14, 2019 12:00am End: 15-85-5653mfiq 1 tablet by mouth once dailyL norgest/e.estradiol-e.estrad (Seasonique) 0.15-0.03 &0.01 MG tablet tablet TAKE 1 TABLET BY MOUTH EVERY DAY Oral for 11/20/2024 Discontinuedtake 1 tablet by mouth once dailyL norgest/e.estradiol-e.estrad (Seasonique) 0.15-0.03 &0.01 MG tablet tablet TAKE 1 TABLET BY MOUTH EVERY DAY Oral for Activeezetimibe 10 mg oral tablet (20 sources)Dietary Cholesterol Absorption InhibitorStart: 07-27-2022 End: 52-96-9819kmtvbolol (Zetia) 10 MG tablet 05/08/2023 11/20/2024 Discontinued Comment on above:10 mg once daily.ferrous sulfate 325 mg oral tablet (20 sources)Start: 07-13-2022 End: 73-78-8967bvyggvb sulfate 325 (65 Fe) MG tablet Daily. 07/13/2022 11/20/2024 Discontinued End: 95-24-3655xwgv 1 tablet by mouth in the morningFerrous Sulfate (IRON PO) Take 1 tablet by mouth in the morning. 11/20/2024 Discontinuedtake 1 tablet by mouth in the morningFerrous Sulfate (IRON PO) Take 1 tablet by mouth in the morning. ActiveComment on above:once daily.fludrocortisone acetate 0.1 mg oral tablet (9 sources)Start: 01-13-2023 End: 31-60-9716wyvaemegffermwo (Florinef) 0.1 MG tablet 01/13/2023 11/20/2024 DiscontinuedStart: 27-10-3352sscm 1 tablet by mouth once dailyFludrocortisone Acetate 0.1 MG Oral Tablet Take 1 tablet daily Quantity: 90 Refills: 3 Ordered: 14-Nov-2022 Soraya Cage MD Start : 14-Nov-2022 Active1.5 ml fremanezumab-vfrm 150 mg/ml prefilled syringe (13 sources)Start: 10-14-2019 End: 96-28-4978Ngsumakagclq-Vfrm 225 mg/1.5 mL syringe Discontinued 1.5 ML SUBCUT every month October 14, 2019 12:00am May 01, 2023 12:54pm hydrocortisone 0.025 mg/mg topical ointment (8 sources)CorticosteroidStart: 02-06-2023 End: 82-87-9887swwjmvpnkqlfun 2.5 % ointment Indications: Allergic contact dermatitis, unspecified trigger Apply thin layer to affected areas twice a day as needed for flares 20 g 1 02/06/2023 11/20/2024 Discontinuedhyoscyamine sulfate 0.125 mg sublingual tablet (13 sources)Start: 10-14-2019 End: 71-95-5654fhek 1 tablet by mouth four times daily as needed for pain Hyoscyamine Sulfate 0.125 mg tablet, sublingual Discontinued 1 - 2 TAB PO Four times daily as needed for Abdominal Pain October 14, 2019 12:00am December 24, 2020 12:24pmlidocaine 0.05 mg/mg medicated patch (4 sources)Antiarrhythmic, Amide Local AnestheticStart: 06-19-2024 End: 81-02-7195cybpq 1 dose topically every twenty-four hoursLidocaine 5 % adhesive patch,medicated Discontinued 1 PATCH TOPICAL Q24H June 19, 2024 1:00am October 22, 2024 3:51pm leave on most painful area for up to 12 hrs loratadine 10 mg disintegrating oral tablet (8 sources)Start: 01-13-2023 End: 06-62-1415SEH Allergy Relief 10 MG disintegrating tablet 01/13/2023 11/20/2024 DiscontinuedMagnesium (4 sources) End: 51-88-4976Utbseyfzi 250 mg tab 250 mg once daily. 0 01/12/2023 Discontinued Magnesium 250 mg tab 250 mg once daily. 0 ActiveComment on above:250 mg once daily.magnesium oxide 400 mg oral tablet (9 sources) End: 16-58-9137urygigbao oxide (Mag-Ox) 400 MG tablet Take by mouth Daily. 11/20/2024 DiscontinuedComment on above:Take 400 mg by mouth once daily. Magnesium Sulfate (1 source)Start: 06-13-2012 End: 10-07-6784yztxra 2 g intravenously every hourMAGNESIUM SULFATE IN 0.9% NACL (MAGNESIUM SULFATE IN NS) 2 gram/100 mL PgBk Indications: Headache(784.0) Inject 2 g intravenously as directed. INFUSE 2000 mg in NS 250 ML IV OVER 1 HOUR 100 mL 0 06/13/2012 07/28/2022 Discontinued (Course of therapy completed) Comment on above:Inject 2 g intravenously as directed. INFUSE 2000 mg in NS 250 ML IV OVER 1 HOURmeclofenamate 100 mg oral capsule (8 sources)Start: 04-11-2022 End: 65-25-1858wbgu 1 capsule by mouth once daily as neededmeclofenamate (Meclomen) 100 MG capsule TAKE 1 CAPSULE BY MOUTH ONCE DAILY. MAY REPEAT in 4 TO 6 hours NEEDED. 04/11/2022 11/20/2024 Nqauqusyliqo97 hr metFORMIN hydrochloride 500 mg extended release oral tablet (12 sources)BiguanideStart: 07-27-2022 End: 47-69-2416thxg 1 tablet by mouth every twenty-four hours in the morning metFORMIN XR (Glucophage-XR) 500 MG 24 hr tablet Take 500 mg by mouth in the morning. 07/27/2022 11/20/2024 Discontinued End: 73-20-8617dyxCIODUS (GLUCOPHAGE) 500 mg tablet 500 mg once daily. 0 01/12/2023 DiscontinuedComment on above:500 mg once daily.24 hr metoprolol succinate 25 mg extended release oral tablet (18 sources)beta-Adrenergic BlockerStart: 12-03-2022 End: 29-80-3014zenz 1 tablet by mouth every twenty-four hours in the morning metoprolol succinate XL (Toprol-XL) 25 MG 24 hr tablet Take 1 tablet by mouth in the morning. 12/03/2022 11/20/2024 DiscontinuedStart: 12-03-2022 End: 18-16-1411gmnb 1 tablet by mouth every hourmetoprolol succinate ER (TOPROL XL) 25 mg 24 hr tablet Take 1 tablet by mouth every afternoon. 0 12/03/2022 09/21/2023 DiscontinuedStart: 63-77-1178dqlh 1 tablet by mouth once daily Metoprolol Succinate ER 25 MG Oral Tablet Extended Release 24 Hour TAKE 1 TABLET DAILY. Quantity: 90 Refills: 3 Ordered: 14-Nov-2022 Soraya Cage MD Start : 14-Nov-2022 ActiveComment on above:Take 1 tablet by mouth every afternoon. pantoprazole 40 mg delayed release oral tablet (20 sources)Proton Pump InhibitorStart: 10-14-2019 End: 19-77-7334afic 1 tablet by mouth once dailyPantoprazole 40 mg tablet,delayed release (DR/EC) Discontinued 40 MG PO Daily October 14, 2019 12:00am May 01, 2023 12:55pmphenazopyridine hydrochloride 200 mg delayed release oral tablet (8 sources)Start: 12-15-2022 End: 01-05-1919sckb 1 tablet by mouth three times daily after mealtime phenazopyridine (Pyridium) 200 MG tablet TAKE 1 TABLET BY MOUTH THREE TIMES A DAY AFTER MEALS FOR 3DAYS 12/15/2022 11/20/2024 Discontinuedphentermine hydrochloride 37.5 mg oral tablet (17 sources)Sympathomimetic Amine AnorecticStart: 01-05-2023 End: 40-35-1199rywf 1 tablet by mouth in the morningphentermine (Adipex-P) 37.5 MG tablet Take 37.5 mg by mouth in the morning. 01/05/2023 11/20/2024 Di scontinuedComment on above:Take 37.5 mg by mouth once daily.predniSONE 10 mg oral tablet (8 sources)Start: 11-11-2024 End: 44-21-5125typphfNEHD (Deltasone) 10 MG tablet Indications: Other rosacea Take 4 tabs daily x 3 days, take 2 tabs daily x 3 days, take 1 tab daily x 3 days. Total days: 21 tablet 11/11/2024 11/25/2024 Discontinued (Therapy completed)pregabalin 25 mg oral capsule (8 sources)Start: 03-06-2022 End: 81-92-1389ykbg 1 capsule by mouth once daily at bedtimepregabalin (Lyrica) 25 MG capsule TAKE 1 CAPSULE BY MOUTH EVERY DAY AT BEDTIME 03/06/2022 11/20/2024 DiscontinuedPrenatal Zdvkbrdm-Aw-Mmt-Fe-FA (P-D PLUS) Tab (2 sources) End: 05-38-5093tdpp 1 tablet by mouth once dailyPrenatal Uizwyvho-Fw-Xbt-Fe-FA (P-D PLUS) Tab Take 1 tablet by mouth once daily. 0 3Discontinued (Course of therapy completed)take 1 tablet by mouth once dailyPrenatal Jbarnnmq-Gh-Jfc-Fe-FA (P-D PLUS) Tab Take 1 tablet by mouth once daily. 0 ActiveComment on above:Take 1 tablet by mouth once daily.promethazine hydrochloride 25 mg oral tablet (20 sources)PhenothiazineStart: 09-27-2020 End: 65-42-3819xesk 1 tablet by mouth every six hours as needed for nausea and vomitingPromethazine 25 mg tablet Discontinued 25 MG PO Q6H as needed for nausea and vomiting September 27, 2020 12:00am December 24, 2020 12:24pmStart: 09-27-2020 End: 90-45-7175gxbq 1 tablet by mouth four times daily as needed for nausea and vomitingPromethazine 25 mg tablet Discontinued 25 MG PO Four times daily as needed for nausea and vomiting September 27, 2020 12:00am December 24, 2020 12:15pmpropranolol hydrochloride 10 mg oral tablet (20 sources)beta-Adrenergic BlockerStart: 10-14-2019 End: 32-84-1119pqfh 2 tablets by mouth twice dailyPropranolol 10 mg tablet Discontinued 20 MG PO Twice daily October 14, 2019 12:00am May 01, 2023 12:55pmStart: 10-14-2019 End: 60-06-1418ddfq 20 mg by mouth twice dailyPropranolol Discontinued 20 MG PO Twice daily October 14, 2019 12:00am May 01, 2023 12:55pmStart: 06-25-2012 End: 16-53-9804cidw 1 tablet by mouth three times dailypropranolol 10 mg tablet Take 1 tablet by mouth three times daily. 90 tablet 11 06/25/2012 07/28/2022 Discontinued (Course of therapy completed) End: 93-63-5041zhxxykltmdn (Inderal) 40 MG tablet 1 (one) time each day at the same time. 11/20/2024 DiscontinuedComment on above:Take 1 tablet by mouth three times daily.rimegepant 75 mg disintegrating oral tablet (13 sources) End: 30-77-0984Cowrglvklf Sulfate (Nurtec) 75 MG tablet dispersible DISSOLVE ONE TABLET BY MOUTH AT ONSET OF MIGRAINE Oral for 30 01/20/2025 Discontinued (Therapy completed)simvastatin 40 mg oral tablet (20 sources)HMG-CoA Reductase Inhibitor End: 41-04-9696bvlv 1 tablet by mouth at bedtimesimvastatin (Zocor) 40 MG tablet Take 40 mg by mouth at bedtime. 11/20/2024 DiscontinuedComment on above:40 mg once daily.1000 ml sodium chloride 9 mg/ml injection (1 source)Start: 06-13-2012 End: .9 % SODIUM CHLORIDE (NACL) 0.9% solution Indications: Headache(784.0) Inject 500 mL intravenouslyas directed. INFUSE 500 CC IV NS IV OVER 30 MIN 500 mL 0 06/13/2012 07/28/2022 Discontinued (Courseof therapy completed)Comment on above:Inject 500 mL intravenously as directed. INFUSE 500 CC IV NS IV OVER 30 MINsulfamethoxazole 800 mg / trimethoprim 160 mg oral tablet (13 sources)Dihydrofolate Reductase Inhibitor Antibacterial, Sulfonamide AntimicrobialStart: 12-15-2022 End: 74-86-3843zkay 1 tablet by mouth once in the morning, then take 1 tablet by mouth once at bedtimesulfamethoxazole-trimethoprim (Bactrim DS) 800-160 MG per tablet Take 1 tablet by mouth in the morning and 1 tablet before bedtime. 12/15/2022 01/20/2025 Discontinued (Therapy completed)topiramate (20 sources)Start: 10-14-2019 End: 62-79-9182epao 1 capsule by mouth once dailyTopiramate 100 mg capsule,extended release 24hr Discontinued 300 MG PO Daily October 14, 2019 12:00amDecember 2022 12:56pmStart: 10-14-2019 End: 13-74-3161ifky 1 capsule by mouth once dailyTopiramate 100 mg capsule,extended release 24hr Discontinued 300 MG PO Daily October 13, 2019 11:00pmDece2022 11:56amStart: 93-07-4413upum 300 mg by mouth once dailyTopiramate Active 300 MG PO Daily October 13, 2019 11:00pmStart: 10-14-2019 End: 06-62-0576rmzb 300 mg by mouth once dailyTopiramate Discontinued 300 MG PO Daily October 14, 2019 12:00am May 01, 2023 12:56pm End: 45-83-0645Vpjjvebmtp ER (Trokendi XR) 200 MG capsule sustained-release 24 hr 1 capsule. 11/20/2024 Discontinuedtrihexyphenidyl hydrochloride 2 mg oral tablet (8 sources)Start: 09-04-2022 End: 32-19-9332dqvb 1 tablet by mouth in the morningtrihexyphenidyl (Artane) 2 MG tablet Take 2 mg by mouth in the morning and 2 mg before bedtime. 09/04/2022 11/20/2024 Ebvyypqafgon52 hr venlafaxine 37.5 mg extended release oral capsule (8 sources)Serotonin and Norepinephrine Reuptake InhibitorStart: 05-01-2022 End: 65-61-4111bmgk 1 capsule by mouth once daily at mealtimevenlafaxine XR (Effexor XR) 37.5 MG 24 hr capsule TAKE 1 CAPSULE BY MOUTH EVERY DAY WITH FOOD FOR 30 DAYS 05/01/2022 11/20/2024 Discontinuedzolpidem tartrate 10 mg oral tablet (8 sources)gamma-Aminobutyric Acid-ergic Agonist End: 83-39-4780Rsdmhv 10 MG tablet 1 (one) time each day at the same time. 11/20/2024 Discontinued Problems Active Problems Problem ClassificationProblemDateDocumented DateEpisodic/Chronic Administrative/social admission (4 sources)Patient encounter status; Translations: [Other reasons for seeking consultation]EpisodicCardiac dysrhythmias (2 sources)Tachycardia, unspecified; Translations: [Sinus tachycardia]Onset: 55-74-4722YijhclpmPhoqsnwyr of lipid metabolism (20 sources)Hyperlipidemia; Translations: [Other and unspecified hyperlipidemia] Onset: 016076-22-4634GiepoegJbseurnb; including migraine (20 sources)Migraine, unspecified, not intractable, without status migrainosus; Translations: [Refractory migraine without aura]Onset: 907764-74-2237 ChronicHeadache; including migraine (1 source)Headache; including migraine; Translations: [HEADACHE UNSPECIFIED] Onset: 85-58-9877Fmodijhgj (3 sources)Influenza due to Influenza A virus; Translations: [Influenza due to other identified influenza virus with other respiratory manifestations] 59-06-2707DsuncwwuEayshayczdpizs (16 sources)Arthritis; Translations: [Unspecified osteoarthritis, unspecified site]Onset: 044596-65-5594FijjuzxRovad and unspecified benign neoplasm (4 sources)Fibroadenoma of right breast; Translations: [Benign neoplasm of right breast]Onset: 777179-80-6945IvkahujnKzqjl connective tissue disease (13 sources)Spasm of cervical paraspinous muscle; Translations: [Other muscle spasm]92-47-1786FxacufkiFxwdm connective tissue disease (1 source)Fibromyalgia; Translations: [Fibromyalgia]EpisodicOther connective tissue disease (1 source)Problem of neck; Translations: [Other symptoms and signs involving the musculoskeletal system]25-16-9126QjksuickHusif connective tissue disease (10 sources)Muscle spasm of cervical muscle of neck; Translations: [Other muscle spasm]Onset: 032049-65-6040JzhhdxyeRtela female genital disorders (16 sources)Pain in female genitalia on intercourse; Translations: [Unspecified dyspareunia]Onset: 086829-42-0969DzvznmkFjtwt hereditary and degenerative nervous system conditions (1 source)Spasmodic torticollis; 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 TORTICOLLIS]Onset: 21-81-8401AwdxckuBrddl hereditary and degenerative nervous system conditions (20 sources)Isolated cervical dystonia; Translations: [Spasmodic torticollis] Onset: 250055-35-3731UswgzshZgmou hereditary and degenerative nervous system conditions (20 sources)Restless legs; Translations: [Restless legs syndrome]Onset: 131583-98-5278YtdasaeWfzgz inflammatory condition of skin (20 sources)Rosacea; Translations: [Other rosacea]Onset: 392446-85-7402 ChronicOther nervous system disorders (5 sources)Other specified mononeuropathies; Translations: [OTHER SPECIFIED MONONEUROPATHIES]Onset: 68-18-3877XljjyybOlmpn nervous system disorders (20 sources)Disorder of brain; Translations: [Disorder of brain, unspecified] Onset: 967983-34-0499FxtixzkWxfrt nervous system disorders (1 source)Chronic pain; Translations: [Other chronic pain]41-74-5309UbacdhyJberq nervous system disorders (1 source)Other chronic pain; Translations: [Other chronic pain]10-22-2024 ChronicOther nutritional; endocrine; and metabolic disorders (20 sources)Obesity; Translations: [Obesity, unspecified]Onset: 08-23-2023 01-74-4035TeutdfjQsfmp nutritional; endocrine; and metabolic disorders (1 source)Overweight in adulthood with body mass index of 25 or more but less than 30; Translations: [Overweight]EpisodicOther skin disorders (2 sources)Skin tag; Translations: [Other hypertrophic disorders of the skin] 61-99-9867PqcfxoxpUnexrpff codes; unclassified (11 sources)Obstructive sleep apnea syndrome; Translations: [Obstructive sleep apnea (adult) (pediatric)]Onset: 190280-12-9370MvgcgzaAhqz and subcutaneous tissue infections (4 sources)Cellulitis of left thumb; Translations: [Cellulitis of left finger] 64-29-0570XfzjrrieWqbbbexihqp; intervertebral disc disorders; other back problems (2 sources)Cervical spondylosis; Translations: [Spondylosis without myelopathy or radiculopathy, cervical region]42-34-6150KkypezrFwxkqkn (19 sources)Syncope; Translations: [Syncope and collapse]Onset: 12-28-2022 EpisodicUnclassified (1 source)Cough, unspecified; Translations: [Cough, unspecified]Onset: 68-20-0104Wzewsdf tract infections (2 sources)Urinary tract infectious disease; Translations: [Urinary tract infection, site not specified]91-38-0639Ykuowcvf Past or Other Problems Problem ClassificationProblemDateDocumented DateEpisodic/ChronicAbdominal pain (20 sources)Abdominal pain; Translations: [Unspecified abdominal pain]Onset: 013465-94-8448UezzgcdhApwzkbf tract disease (20 sources)Biliary calculus; Translations: [Calculus of gallbladder without cholecystitis without obstruction]Onset: 330304-52-9275QypcpikaZxlj; stupor; and brain damage (20 sources)Daytime somnolence; Translations: [Somnolence]Onset: 08-23-2023 35-94-0460IylzltqaBkxcaplkpj and other anemia (20 sources)Iron deficiency anemia; Translations: [Iron deficiency anemia, unspecified]Onset: 411989-24-7904UcvxbrkoConqc or threatened labor (16 sources)Premature labor; Translations: [ labor without delivery, unspecified trimester]Onset: 804664-10-7389IpuoxeayAjhxfxpm; including migraine (20 sources)Headache; Translations: [Headache]Onset: EpisodicImmunizations and screening for infectious disease (1 source)Encounter for screening for human papillomavirus (HPV); Translations: [ENC SCREENING HUMAN PAPILLOMAVIRUS]Onset: 31-50-1834ClgkoyqqJvnadzitsxdm breast conditions (20 sources)Breast lump; Translations: [Unspecified lump in the left breast, unspecified quadrant]Onset: 021278-18-6697ToabljdgJttqammxpvz chest pain (3 sources)Atypical chest pain; Translations: [Other chest pain]Onset: 177805-12-3565SiaucwerApile and unspecified benign neoplasm (20 sources)Benign neoplasm of right breast; Translations: [Benign neoplasm of breast]Onset: 667856-33-9348GwtgturjJrcxc circulatory disease (20 sources)Elevated blood-pressure reading without diagnosis of hypertension; Translations: [Elevated blood-pressure reading, without diagnosis of hypertension]Onset: 134153-55-5864JylvutwzRzvyp connective tissue disease (1 source)Other muscle spasm; Translations: [OTHER MUSCLE SPASM]Onset: 82-22-1173VuqzgqfzUtoic connective tissue disease (20 sources)Muscle pain; Translations: [Myalgia, unspecified site]Onset: 387613-04-2856UcgcadwlSorcj female genital disorders (16 sources)Pelvic congestion syndrome; Translations: [Other specified conditions associated with female genital organs and menstrual cycle]Onset: 819316-09-7350SmaxtvduKwofw female genital disorders (16 sources)Vaginal dryness; Translations: [Other specified noninflammatory disorders of vagina]Onset: 441063-54-8482SpyliwklUoodf female genital disorders (2 sources)Pelvic and perineal pain; Translations: [Pelvic and perineal pain] Onset: 604724-23-4732YdefhjhmKcjof gastrointestinal disorders (16 sources)Altered bowel function; Translations: [Change in bowel habit]Onset: 532625-79-8510XpelqzltPdkhu lower respiratory disease (20 sources)Difficulty breathing; Translations: [Other respiratory abnormalities]Onset: 283444-85-0531ZtmwhfvtFupzq nervous system disorders (20 sources)Spasmodic movement; Translations: [Fasciculation]Onset: 08-23-2023 32-07-7587DvsrokhfQoqbm nutritional; endocrine; and metabolic disorders (16 sources)Abnormal weight gain; Translations: [Abnormal weight gain]Onset: 675584-79-5416ShkgcjkjHluja and delivery including normal (16 sources)Intrauterine ; Translations: [Encounter for supervision of normal , unspecified, unspecified trimester]Onset: EpisodicOther screening for suspected conditions (not mental disorders or infectious disease) (20 sources)Encounter for screening for malignant neoplasm of cervix; Translations: [Ultrasonography of breast abnormal]Onset: 28-26-2783Kmcbyvoa Residual codes; unclassified (20 sources)Insomnia; Translations: [Insomnia, unspecified]Onset: 08-23-2023 50-60-4223LfwsnnbnKrkhodjt codes; unclassified (20 sources)Diffuse pain; Translations: [Pain, unspecified]Onset: 08-23-2023 38-95-6118IchfunnjNlaujzcmsxy; intervertebral disc disorders; other back problems (20 sources)Chronic neck pain; Translations: [Cervicalgia]Onset: 02-20-2022 EpisodicUnclassified (9 sources)Never smoked tobacco; Translations: [Never a smoker] Results Test NameValueInterpretationReference RangeFacilityCNOVon 66-99-6953QMSMLznsrx Visit ([facility]) BRITTANIE GARCIA ([id number]) 1985 F Date Time Provider Department 02/23/25 10:00 AM DAVID SULLIVAN [facility] During your visit today, we recorded the following information about you: Pulse Blood pressure Weight 78/minute 107/71 75.4 kg David Sullivan MD 02/23/2025 10:54 AM Signed BOTOX PREEMPT PROTOCOL Total headache days per month: Bad once / week, Tends to take 1-2 weeks to kick in and 1-2 weeks before visit wears OFF Severity of headaches: Mild background daily headache partially related to neck muscles, severe 1/week PRN meds: Daily (tylenol, motrin) Botox effective: YES The risks, benefits and anticipated outcomes of the procedure, the risks and benefits of the alternatives to the procedure, and the roles and tasks of the personnel to be involved, were discussed with the patient. The patient has given written informed consent to the procedure and agrees to proceed. Yes Treatment # 5 with me, 10+ in past BOTOX brought in by patient? No Lot #: [id number] Exp: 09/2026 Dilution: 5 units/0.1 ml (100 [...] (optional for EMERGENT procedures): No specimen collected. David Sullivan MD Injection Sites Muscle Fixed Site/Fixed Dose Optional follow pain # units L R Radial Router Operator 10 units divided in 2 sites XXXXXXX Procerus 5 units in 1 site XXXXXXX Frontalis 10 units divided in 2 sites XXXXXXX Temporalis 40 units divided in 8 sites Occipitalis 30 units divided in 6 sites Cervical PSPs 20 units divided in 4 sites 5 units extra each side Trapezius 40 units right / 35 units left over 3 sites each Total 200 units Total Units used: 200 Total Units wasted: 0 Patient did tolerate procedure with some discomfort. Change in Treatment Plan? No - advised to limit each Prn to max 3 days per week to prevent overuse headache David Sullivan MD Referring Provider: DAVID SULLIVAN [[id number]] Allergies As of Date: 02/23/2025 Noted Allergy Reaction DHE 06/13/2012 12 - Shortness of Breath ADHESIVE 07/28/2022 2 - Rash 14 - Other: See Comments Comments: Rash and blisters CAFFEINE 06/13/2012 11 - Vomiting DROPERIDOL 07/30/2024 14 - Other: See Comments Comments: Severe restless leg flare up METOPROLOL 05/01/2023 7 - Swelling Date Reviewed: 02/23/2025 Reviewed by: Iram Encarnacion MA - Fully Assessed Reason for Visit: Botox Injection [373] Primary Visit Diagnosis:Chronic migraine without aura, with intractable migraine, so stated, with status migrainosus [G43.711] Other Visit Diagnosis:Neck pain [M54.2] Order(s):[] onabotulinum toxin type A 200 Units injection (BOTOX)Disp: Rfl: Prescriptions as of 02/23/2025 - doxycycline monohydrate (MONODOX) 100 mg capsule Take 1 capsule, by mouth, BID, 30 days - tiZANidine (ZANAFLEX) 4 mg tablet Take [...] at bedtime. Problem List As Of Date: 02/23/2025 (None) Prescriptions ordered this encounter Disp Refills Start End ONABOTULINUMTOXINA 100 UNIT SOLUTION* 02/23/2025 02/23/2025 Route: IM Disposition: Return in about 3 months (around 05/26/2025). Follow-up and Disposition History for Encounter Date Provider Department Center 02/23/2025 [id number], TED [facility] Encounter Status:Closed by DAVID SULLIVAN on 02/23/25NoOhio State East Hospitalobic cultureon 97-60-2341Trufaqkzzeiww or agent identified Nom (Unsp spec)Final reportUNC Health RexNo Panel Informationon 23-01-9139Eghvfexmk at: 01 - [facility] [id number] Engineering Agent: Bentley Leggett PhD, Phone: [phone] 01-24-2025 Bacteria identified Cx Nom (Unsp spec)CommentNOGeneral Leonard Wood Army Community HospitalComment on above:No growth in 36 - 48 hours.NOMS HealthcareMR CERVICAL SPINE WO CONTRASTon 38-28-1804AS CERVICAL SPINE WO CONTRASTEXAMINATION/TECHNIQUE: MR CERVICAL SPINE WO CONTRAST HISTORY: Chronic [...] Unremarkable MRI cervical spine. ELECTRONICALLY SIGNED BY: Beata ForteNot AvailableCNOVon 10-29-2024 CNOVOffice Visit ([facility]) BRITTANIE GARCIA ([id number]) 1985 F Date Time Provider Department 10/29/24 4:30 PM DAVID SULLIVAN [facility] During your visit today, we recorded the following information about you: Pulse Blood pressure Weight Height 102/minute 111/77 74 kg 1.575 m David Sullivan MD 10/29/2024 5:28 PM Signed BOTOX [...] brought in by patient? No Lot #: [id number] Exp: 09/2026 Dilution: 5 units/0.1 ml (100 [...] (optional for EMERGENT procedures): No specimen collected. David Sullivan MD Injection Sites Muscle Fixed Site/Fixed Dose Optional follow pain # units L R Radial Router Operator 10 units divided in 2 sites XXXXXXX [...] some discomfort. Change in Treatment Plan? No David Sullivan MD Referring Provider: DAVID SULLIVAN [[id number]] Allergies As of Date: 10/29/2024 Noted Allergy [...] for Encounter Date Provider Department Center 10/29/2024 [id number], TED [facility] Encounter Status:Closed by DAVID SULLIVAN on 10/29/24NoHocking Valley Community Hospitalon [id number] ([facility]) JOSEBRITTANIE ([id number]) 1985 F Date Time Provider Department 09/26/24 DAVID SULLIVAN [facility] During your visit today, we recorded [...] Fully Assessed Reason for Visit: Insurance Authorization [[id number]] Cmt: Botox Prescriptions as of 10/10/2024 - [...] (None) Encounter Status:Closed by EVONNE DILLARD on 10/10/24NoMercy Memorial HospitalAppearance of UrineOrdered By: Peg Ruiz on 09-17-2024 Appearance (U)Urine appearanceCleSt. Elizabeth HospitalB-Type Natriuretic Peptideon 18-06-0463Rrwimylcgfv peptide B (Bld) [Mass/Vol]24.0 pg/mL Normal5-100The [facility] Physician GroupComment on above:Result Comment: PERFORMED BY: [facility] [address] [id number] PATHOLOGIST PLATEN DRIER OPERATOR RAFIA LOPEZ M.D.Performed By: #### CK, BMP, PT, BNP, DDIMER, CBC, HS TROP ####[place] [id number] [place] Bacteria [Presence] in Urine by AutomatedOrdered By: Peg Ruiz on 09-17-2024 Bacteria Auto Ql (U)Bacteria [Presence] in Urine by AutomatedNone [facility] CenterBasic Metabolic Panelon 16-08-6019Kbtua gap [Moles/Vol] 10.9 mmol/LNormal6.0-15.0The [facility] Physician GroupComment on above:Performed By: #### CK, BMP, PT, BNP, DDIMER, CBC, HS TROP ####[place] [address] USACalcium [Mass/Vol]9.4 mg/dLNormal 8.6-10.3The [facility] Physician GroupComment on above:Performed By: #### CK, BMP, PT, BNP, DDIMER, CBC, HS TROP ####[place] [address] USAChloride [Moles/Vol]106 mmol/PMqvxpx47-967Jov [facility] Physician GroupComment on above:Performed By: #### CK, BMP, PT, BNP, DDIMER, CBC, HS TROP ####[place] [id number] [place]ACO2 [Moles/Vol]26.7 mmol/TInbila66.0-31.0The [facility] Physician GroupComment on above:Performed By: #### CK, BMP, PT, BNP, DDIMER, CBC, HS TROP ####[place] [id number] USACreatinine [Mass/Vol]0.91 mg/dLNormal0.60-1.20The [facility] Physician GroupComment on above:Performed By: #### CK, BMP, PT, BNP, DDIMER, CBC, HS TROP ####[address] [place] [address] USACreatinine Clr Calc Zbuoomoo63.55NormalThSaint Alphons[facility] Physician GroupComment on above:Result Comment: PERFORMED BY: [facility] [address] [id number] PATHOLOGIST PLATEN DRIER OPERATOR RAFIA LOPEZ M.D.Performed By: #### CK, BMP, PT, BNP, DDIMER, CBC, HS TROP ####[place] [id number] [place] GFR/1.73 sq M.predicted MDRD (S/P/Bld) [Vol rate/Area]mL/min/{1.73_m2}NormalThe [facility] Physician GroupComment on above:Performed By: #### CK, BMP, PT, BNP, DDIMER, CBC, HS TROP ####[place] [address] USAGlucose [Mass/Vol]99 mg/rGPnrzhw51-373Wkt [facility] Physician GroupComment on above:Result Comment: Random Glucose Reference Range is dependent on time and content of last meal. Glucose of more than 200 mg/dL in a nonstressed, ambulatory subject supports the diagnosis of Diabetes Mellitus. ADA recommended reference rangePerformed By: #### CK, BMP, PT, BNP, DDIMER, CBC, HS TROP ####[place] [address] USAPotassium [Moles/Vol]3.6 mmol/LNormal3.5-5.1The [facility] Physician Group Comment on above:Performed By: #### CK, BMP, PT, BNP, DDIMER, CBC, HS TROP ####[place] [id number] USASodium [Moles/Vol]140 mmol/CTauoqx324-590Ste [facility] Physician GroupComment on above: Performed By: #### CK, BMP, PT, BNP, DDIMER, CBC, HS TROP ####[place] [address] USAUrea nitrogen [Mass/Vol]13 mg/dLNormal7-25The [facility] Physician GroupComment on above:Performed By: #### CK, BMP, PT, BNP, DDIMER, CBC, HS TROP ####[facility] [address] [place] [address] USABasophils Auto (Bld) [#/Vol]Ordered By: Peg Ruiz on 53-79-4070Xvjbqkzgz (Bld) [#/Vol]Automated basophil count0.0-0.2 [facility] HospitalBasophils/100 WBC Auto (Bld)Ordered By: Peg Ruiz on 47-26-5506Kewnahfgw/100 WBC (Bld)Automated basophil %.[facility] HospitalBilirubin Test strip Ql (U)Ordered By: Peg Ruiz on 01-73-7808Uraoepkqs Ql (U)Bilirubin.total [Presence] in Urine by Test strip NegativeHolmes County Joel Pomerene Memorial HospitalCT abdomen pelvis wo conon 48-89-2382WG abdomen pelvis wo [facility] [address] [place] [address] [place] [address] CT Scan Report Signed Patient: Brittanie Garcia MR#: [id number] : 1985 Acct:[id number] Age/Sex: 39 / F ADM Date: 09/17/24 Loc: ER Room: Type: [facility] ER Attending Dr: Copies to: DO [...] Jr., D.O. 09/17/2024 8:21 AM Dictation Location: [place] [address] Transcribed By: [facility] 09/17/24820 Dictated By: Prince Heath Jr, DO 09/17/24817 Signed By: 09/17/24820[facility] Physician GroupCalcium [Mass/volume] in Serum or PlasmaOrdered By: Peg Ruiz on 54-24-7427Hcjdfuj [Mass/Vol]Calcium [Mass/volume] in Serum or Plasma8.6-10.3FMercy Health – The Jewish HospitalCarbon dioxide, total [Moles/volume] in Serum or PlasmaOrdered By: Peg Ruiz on 68-77-2961IU7 [Moles/Vol]Carbon dioxide, total [Moles/volume] in Serum or Plasma 21.0-31.0[facility] HospitalChloride [Moles/volume] in Serum or PlasmaOrdered By: Peg Ruiz on 51-00-4830Fnjqikbi [Moles/Vol]Chloride [Moles/volume] in Serum or Gzsqxk24-315KchstkiwaHolmes County Joel Pomerene Memorial HospitalColor Auto (U)Ordered By: Peg Ruiz on 54-95-5659Xwdhp (U)Color of Urine by Auto YellowHolmes County Joel Pomerene Memorial HospitalComplete Blood Count Auto Diffon 89-57-1761Ppbspbwqk (Bld) [#/Vol]0.0 10*3/uLNormal0.0-0.2The [facility] Physician GroupComment on above:Result Comment: PERFORMED BY: [address] [address] PATHOLOGIST PLATEN DRIER OPERATOR RAFIA LOPEZ M.D.Performed By: #### CK, BMP, PT, BNP, DDIMER, CBC, HS TROP ####[place] [address] [place] Basophils/100 WBC (Bld)0.7 %Normal.The [facility] Physician GroupComment on above:Performed By: #### CK, BMP, PT, BNP, DDIMER, CBC, HS TROP ####[place] [address] USAEosinophils (Bld) [#/Vol]0.1 10*3/uLNormal0.0-0.45The [facility] Physician GroupComment on above: Performed By: #### CK, BMP, PT, BNP, DDIMER, CBC, HS TROP ####[place] [address] USAEosinophils/100 WBC (Bld)2.0 %Normal.The [facility] Physician GroupComment on above:Performed By: #### CK, BMP, PT, BNP, DDIMER, CBC, HS TROP ####[place] [address] USAErythrocyte distribution width (RBC) [Ratio]13.9 % Ljynds45.9-15.3The [facility] Physician GroupComment on above:Performed By: #### CK, BMP, PT, BNP, DDIMER, CBC, HS TROP ####[place] [address] USAHematocrit (Bld) [Volume fraction]42.2 %Normal 34.0-46.4The [facility] Physician GroupComment on above:Performed By: #### CK, BMP, PT, BNP, DDIMER, CBC, HS TROP ####[place] [address] USAHemoglobin (Bld) [Mass/Vol]14.4 g/vVMnwgwf43.8-15.4 The [facility] Physician GroupComment on above:Performed By: #### CK, BMP, PT, BNP, DDIMER, CBC, HS TROP ####[place] [id number] USALymphocytes (Bld) [#/Vol]2.6 10*3/uLNormal1.00-4.8 The [facility] Physician GroupComment on above:Performed By: #### CK, BMP, PT, BNP, DDIMER, CBC, HS TROP ####[address] [address] USALymphocytes/100 WBC (Bld)41.7 %Normal.The [facility] Physician GroupComment on above:Performed By: #### CK, BMP, PT, BNP, DDIMER, CBC, HS TROP ####[place] [id number] [facility] (RBC) [Entitic mass]29.7 acBodcfl95.7-34.3The [facility] Physician GroupComment on above:Performed By: #### CK, BMP, PT, BNP, DDIMER, CBC, HS TROP ####[place] [id number] [facility] (RBC) [Entitic vol]87.1 pTQifwuj24-205Htj [facility] Physician GroupComment on above:Performed By: #### CK, BMP, PT, BNP, DDIMER, CBC, HS TROP ####[place] [id number] USAMean Corpuscular HGB Conc34.1 g/tHQrnqww58.0-35.0The [facility] Physician GroupComment on above: Performed By: #### CK, BMP, PT, BNP, DDIMER, CBC, HS TROP ####[place] [id number] USAMonocytes (Bld) [#/Vol]0.4 10*3/uLNormal0.0-0.8The [facility] Physician GroupComment on above:Performed By: #### CK, BMP, PT, BNP, DDIMER, CBC, HS TROP ####[place] [id number] USAMonocytes/100 WBC (Bld)16.75 %Normal 0.00-20.00The [facility] Physician GroupComment on above:Performed By: #### CK, BMP, PT, BNP, DDIMER, CBC, HS TROP ####[place] [id number] USAMonocytes/100 WBC (Bld)7.0 %Normal.The [facility] Physician GroupComment on above:Performed By: #### CK, BMP, PT, BNP, DDIMER, CBC, HS TROP ####[place] [address] USANeutrophils (Bld) [#/Vol]3.0 10*3/uLNormal1.8-7.7The [facility] Physician GroupComment on above:Performed By: #### CK, BMP, PT, BNP, DDIMER, CBC, HS TROP ####[place] [address] USANeutrophils/100 WBC (Bld)48.6 %Normal.The [facility] Physician Group Comment on above:Performed By: #### CK, BMP, PT, BNP, DDIMER, CBC, HS TROP ####[place] [address] USANRBC% 0.1 /100{WBC}Normal0-0.5The [facility] Physician GroupComment on above:Performed By: #### CK, BMP, PT, BNP, DDIMER, CBC, HS TROP ####[place] [address] USAPlatelet mean volume (Bld) [Entitic vol]7.5 fLNormal6.3-10.7The [facility] Physician GroupComment on above:Performed By: #### CK, BMP, PT, BNP, DDIMER, CBC, HS TROP ####[place] [address] USAPlatelets (Bld) [#/Vol]297 10*3/uL Daqpjo427-515Blv [facility] Physician GroupComment on above:Performed By: #### CK, BMP, PT, BNP, DDIMER, CBC, HS TROP ####[address] [place] [address] USARBC (Bld) [#/Vol]4.85 10*6/uLNormal3.60-5.00 The [facility] Physician GroupComment on above:Performed By: #### CK, BMP, PT, BNP, DDIMER, CBC, HS TROP ####[place] [address] [place] [address] USAWBC (Bld) [#/Vol]6.3 10*3/uLNormal3.8-11.6The [facility] Physician GroupComment on above:Performed By: #### CK, BMP, PT, BNP, DDIMER, CBC, HS TROP ####[place] [address] [place] [address] USACreatine Kinaseon 74-01-6224HY [Catalytic activity/Vol]58 U/VLbtlbf75-541Wlp [facility] Physician [facility] CenterComment on above: Performed By: #### CK, BMP, PT, BNP, DDIMER, CBC, HS TROP ####[address] [address] USACreatine kinase [Enzymatic activity/volume] in Serum or PlasmaOrdered By: Peg Ruiz on 96-78-1813XA [Catalytic activity/Vol]Creatine kinase [Enzymatic activity/volume] in Serum or Hvvklo45-422LitqrlygoHolmes County Joel Pomerene Memorial HospitalCreatinine [Mass/volume] in Serum or PlasmaOrdered By: Peg Ruiz on 62-42-9177Cwegqbckko [Mass/Vol]Creatinine [Mass/volume] in Serum or Plasma0.60-1.20[facility] HospitalD- Dimer High Sensitivityon 39-68-9260H-Dimer High Sensitivity<702Nnvwwp0-487Taw [facility] Physician [facility] Health CenterComment on above:Result Comment: The reference range for D-dimer is [...] coagulation studies. Please contact the laboratory at [phone] for redraw instructions. PERFORMED BY: [facility] [address] [place] [address] PATHOLOGIST PLATEN DRIER OPERATOR RAFIA LOPEZ M.D.Performed By: #### CK, BMP, PT, BNP, DDIMER, CBC, HS TROP ####[place] [address] [place] [address] USA Dipstick and Microscopicon 91-97-2689Benjyqygqr (U)ClearNormalClearThe [facility] Physician GroupComment on above:Order Comment: Name Collection Type:: Clean- Voided MidstreamPerformed By: #### UHCG, ADDONUAPLUS ####[address] [address] USABacteria,UrineRareNormalNone SeenThe [facility] Physician GroupComment on above:Order Comment: Name Collection Type:: Clean-Voided MidstreamPerformed By: #### UHCG, ADDONUAPLUS ####[address] [address] USABilirubin,Urine NegativeNormalNegativeThe [facility] Physician GroupComment on above:Order Comment: Name Collection Type:: Clean-Voided MidstreamPerformed By: #### UHCG, ADDONUAPLUS ####[address] [address] USAColor (U)ColorlessNormalYellowThe [facility] Physician GroupComment on above:Order Comment: Name Collection Type:: Clean-Voided MidstreamPerformed By: #### UHCG, ADDONUAPLUS ####[address] [address] USAGlucose Ql (U)NormalNormalNormalThe [facility] Physician GroupComment on above:Order Comment: Name Collection Type:: Clean- Voided MidstreamPerformed By: #### UHCG, ADDONUAPLUS ####[address] [address] USAHyaline Casts,UrineNoneNormal 0-8The [facility] Physician GroupComment on above:Order Comment: Name Collection Type:: Clean-Voided MidstreamPerformed By: #### UHCG, ADDONUAPLUS ####[address] [address] USAKetones Ql (U) NegativeNormalNegativeThe [facility] Physician GroupComment on above:Order Comment: Name Collection Type:: Clean-Voided MidstreamPerformed By: #### UHCG, ADDONUAPLUS ####[address] [address] USALeukocyte esterase Test strip Ql (U)3+HighNegativeThe [facility] Physician GroupComment on above:Order Comment: Name Collection Type:: Clean- Voided MidstreamPerformed By: #### UHCG, ADDONUAPLUS ####[address] [address] USANitrite,UrineNegativeNormal NegativeThe [facility] Physician GroupComment on above:Order Comment: Name Collection Type:: Clean-Voided MidstreamPerformed By: #### UHCG, ADDONUAPLUS ####[address] [address] USAOccult Blood,UrineTraceHighNegativeThe [facility] Physician GroupComment on above:Order Comment: Name Collection Type:: Clean-Voided MidstreamPerformed By: #### UHCG, ADDONUAPLUS ####[address] [address] USApH (U)6.0 [pH]Normal5.0-9.0The [facility] Physician GroupComment on above:Order Comment: Name Collection Type:: Clean-Voided MidstreamPerformed By: #### UHCG, ADDONUAPLUS ####[address] [address] USAProtein,UrineNegativeNormalNegativeThe [facility] Physician GroupComment on above:Order Comment: Name Collection Type:: Clean- Voided MidstreamPerformed By: #### UHCG, ADDONUAPLUS ####[address] [address] USARBC,Hbqpt6-8Kjaybl6-0Ljd [facility] Physician GroupComment on above:Order Comment: Name Collection Type:: Clean-Voided MidstreamPerformed By: #### UHCG, ADDONUAPLUS ####[address] [address] USASpecificy [place],Urine1.710Iufpel8.001-1.030The [facility] Physician GroupComment on above:Order Comment: Name Collection Type:: Clean-Voided MidstreamPerformed By: #### UHCG, ADDONUAPLUS ####[address] [address] USASquamous Epithelial Cell,Qjzle1-4Qgnque9-8Guz [facility] Physician GroupComment on above:Order Comment: Name Collection Type:: Clean-Voided MidstreamPerformed By: #### UHCG, ADDONUAPLUS ####[address] [address] USAUrobilinogen,Urine NormalNormalNormalThe [facility] Physician GroupComment on above:Order Comment: Name Collection Type:: Clean-Voided MidstreamPerformed By: #### UHCG, ADDONUAPLUS ####[address] [address] USAWBC,Fmwbq3-8Wtgsgl5-1Oaz [facility] Physician GroupComment on above: Order Comment: Name Collection Type:: Clean-Voided MidstreamPerformed By: #### UHCG, ADDONUAPLUS ####[address] [address] USAECG 12 lead ECGon 67-07-6477NTL 12 lead ECGSELECT MEDICAL [facility] [address] [place] [address] [place] [address] Electrocardiograph Report Signed Patient: Brittanie Garcia MR#: [id number] : 1985 Acct:[id number] Age/Sex: 39 / F ADM Date: 09/17/24 Loc: ER Room: Type: [facility] ER Attending Dr: Ordering Provider: Peg [...] By: MUS Signed By Peg Ruiz DO [address] Physician GroupEosinophils Auto (Bld) [#/Vol]Ordered By: Peg Ruiz on 08-16-7152Gdwwjellazo (Bld) [#/Vol]Automated eosinophil count0.0-0.45[facility] HospitalEosinophils/100 WBC Auto (Bld) Ordered By: Peg Ruiz on 90-66-9418Waxgxlkhkpr/100 WBC (Bld)Automated eosinophil %.[facility] HospitalEpithelial cells.squamous [#/area] in Urine sediment by Automated countOrdered By: Peg Ruiz on 09-17-2024 Epithelial cells.squamous Auto (Urine sed) [#/Area]Epithelial cells.squamous [#/area] in Urine sediment by Automated count0-2FMercy Health – The Jewish HospitalErythrocyte distribution width Auto (RBC) [Ratio]Ordered By: Peg Ruiz on 13-70-1060Bhkahpzwhqe distribution width (RBC) [Ratio]Erythrocyte distribution width [Ratio] by Automated count11.9-15.3FMercy Health – The Jewish HospitalErythrocytes [#/area] in Urine sediment by Automated countOrdered By: Peg Ruiz on 22-52-0262TPG Auto (Urine sed) [#/Area]Erythrocytes [#/area] in Urine sediment by Automated count0-4FMercy Health – The Jewish HospitalFibrin D- dimer [Presence] in Platelet poor plasma by Latex agglutinationOrdered By: Peg Ruiz on 50-90-5393Fslbyp D-dimer LA Ql (PPP)Fibrin D-dimer [Presence] in Platelet poor plasma by Latex agglutination0-243[facility] HospitalComment on above:The reference range for D-dimer is <243 ng/mL [...] coagulation studies. Please contact the laboratory at [phone] for redraw instructions.Glucose [Mass/volume] in Serum or PlasmaOrdered By: Peg Ruiz on 27-75-9286Bucxwyf [Mass/Vol]Glucose [Mass/volume] in Serum or Chwjbm94-542JnwvlbfgrHolmes County Joel Pomerene Memorial HospitalComment on above:ADA recommended reference rangeRandom Glucose Reference Range is dependent on time and content of last meal. Glucose of more than 200 mg/dL in a nonstressed, ambulatory subject supports the diagnosisof Diabetes Mellitus. Glucose [Mass/volume] in Urine by Test stripOrdered By: Peg Ruiz on 41-91-7985Svcpjzo Test strip (U) [Mass/Vol]Glucose [Mass/volume] in Urine by Test stripNormalMarymount Hospital ( test) IA.rapid Ql (U)Ordered By: Peg Ruiz on 60-25-1441EZI ( test) Ql (U)Urine human chorionic gonadotropin (hCG) detection by immunoassayMarymount Hospital,Urineon 99-94-9207Ppkl HCG ( test) Ql (U)Negative NormalThe [facility] Physician GroupComment on above:Order Comment: Name Collection Type:: Clean-Voided MidstreamResult Comment: PERFORMED BY: [facility] [address] [place] [address] PATHOLOGIST PLATEN DRIER OPERATOR RAFIA LOPEZ M.D.Performed By: #### UHCG, ADDONUAPLUS ####[facility] [place] [address] USAHematocrit Auto (Bld) [Volume fraction]Ordered By: Peg Ruiz on 96-93-8898Hpojxkmrvy (Bld) [Volume fraction]Hematocrit [Volume Fraction] of Blood by Automated count34.0-46.4 [facility] HospitalHemoglobin Test strip Ql (U)Ordered By: Peg Ruiz on 97-51-1659Ypsjbajaco Ql (U)Hemoglobin [Presence] in Urine by Test strip HighNegativeHolmes County Joel Pomerene Memorial HospitalHemoglobin [Mass/volume] in Blood Ordered By: Peg Ruiz on 40-39-2481Svrishnhij (Bld) [Mass/Vol]Hemoglobin [Mass/volume] in Blood11.8-15.4FMercy Health – The Jewish HospitalHyaline casts [#/area] in Urine sediment by Automated countOrdered By: Peg Ruiz on 78-03-9771Ftknlon casts Auto (Urine sed) [#/Area]Hyaline casts [#/area] in Urine sediment by Automated count0-8[facility] HospitalINR in Platelet poor plasma by Coagulation assayOrdered By: Peg Ruiz on 53-10-9967GTC Coag (PPP) [Relative time]INR in Platelet poor plasma by Coagulation assayHolmes County Joel Pomerene Memorial HospitalComment on above:INR Therapeutic Range A) Pre- and Peroperative OAT started two weeks before surgery. NOT HIP SURGERY: 1.5 - 2.5 HIP SURGERY: 2 - 3B) Primary and secondary prevention of venous THROMBOSIS: 2 - 3C) Active venous thrombosis, pulmonary embolismand prevention of recurrent venous thrombosis: 2 - 3D) Prevention of arterial thromboembolismincluding patients with mechanical heart valves: 3 - 4.5Ketones Test strip Ql (U)Ordered By: Peg Ruiz on 09-54-7990Wrnzvin Ql (U)Ketones [Presence] in Urine by Test stripNegativeHolmes County Joel Pomerene Memorial HospitalLeukocyte esterase [Presence] in Urine by Test stripOrdered By: Peg Ruiz on 05-06-7403Gfvlpjkfr esterase Test strip Ql (U)Leukocyte esterase [Presence] in Urine by Test stripHighNegative [facility] HospitalLeukocytes [#/area] in Urine sediment by Automated countOrdered By: Peg Ruiz on 95-53-5226VON Auto (Urine sed) [#/Area]Leukocytes [#/area] in Urine sediment by Automated count0-4FMercy Health – The Jewish HospitalLeukocytes [#/volume] corrected for nucleated erythrocytes in Blood by Automated counOrdered By: Peg Ruiz on 92-25-8887VPV corrected for nucl RBC Auto (Bld) [#/Vol]Leukocytes [#/volume] corrected for nucleated erythrocytes in Blood by Automated coun3.8-11.6FMercy Health – The Jewish HospitalLymphocytes Auto (Bld) [#/Vol]Ordered By: Peg Ruiz on 66-81-2007Vlqxrzlgccy (Bld) [#/Vol]Lymphocytes [#/volume] in Blood by Automated count1.00-4.8[facility] HospitalLymphocytes/100 WBC Auto (Bld) Ordered By: Peg Ruiz on 46-32-1689Erlykgkmmor/100 WBC (Bld)Lymphocytes/100 leukocytes in Blood by Automated count.[facility] CenterH Auto (RBC) [Entitic mass]Ordered By: Peg Ruiz on 94-26-8745BMX (RBC) [Entitic mass]MCH [Entitic mass] by Automated count24.7-34.3FMercy Health – The Jewish HospitalMCHC Auto (RBC) [Mass/Vol]Ordered By: Peg Ruiz on 59-49-4856ZKQK (RBC) [Mass/Vol]MCHC [Mass/volume] by Automated count32.0-35.0[facility] HospitalMCV Auto (RBC) [Entitic vol]Ordered By: Peg Ruiz on 09-17-2024 MCV (RBC) [Entitic vol]MCV [Entitic volume] by Automated byblq44-960ZqgsowdmqHolmes County Joel Pomerene Memorial HospitalMonocyte distribution width [Entitic volume] in Blood by AutomatedOrdered By: Peg Ruiz on 53-64-4808Rvewlmfw distribution width Auto (Bld) [Entitic vol]Monocyte distribution width [Entitic volume] in Blood by Automated0.00-20.00[facility] HospitalMonocytes Auto (Bld) [#/Vol] Ordered By: Peg Ruiz on 35-90-0134Qjbjedhnj (Bld) [#/Vol]Automated blood monocyte count0.0-0.8[facility] HospitalMonocytes/100 WBC Auto (Bld)Ordered By: Peg Ruiz on 15-37-1417Jnpnyvbzs/100 WBC (Bld)Automated monocyte %.[facility] HospitalNatriuretic peptide B [Mass/Vol] Ordered By: Peg Ruiz on 15-33-6213Vvvjvvlzhjs peptide B (Bld) [Mass/Vol]BNP ser/plas5-100[facility] HospitalNeutrophils Auto (Bld) [#/Vol] Ordered By: Peg Ruiz on 25-46-8588Dvaadxpskik (Bld) [#/Vol]Neutrophils [#/volume] in Blood by Automated count1.8-7.7FMercy Health – The Jewish Hospital Neutrophils/100 WBC Auto (Bld)Ordered By: Peg Ruiz on 09-17-2024 Neutrophils/100 WBC (Bld)Automated neutrophil %.[facility] HospitalNitrite Test strip Ql (U)Ordered By: Peg Ruiz on 51-68-9839Pirckld Ql (U)Nitrite [Presence] in Urine by Test stripNegativeHolmes County Joel Pomerene Memorial HospitalNo Panel InformationOrdered By: Peg Ruiz on 38-78-6807Yutqdztpa GFR (CKD-EPI)> 60.0 mL/MinHolmes County Joel Pomerene Memorial HospitalPharmacy Creatinine Clearance (Chem80.55[facility] HospitalNucleated erythrocytes [Presence] in Blood by Automated countOrdered By: Peg Ruiz on 09-17-2024 Nucleated RBC Auto Ql (Bld)Nucleated erythrocytes [Presence] in Blood by Automated count0-0.5FMercy Health – The Jewish HospitalPlatelet mean volume Auto (Bld) [Entitic vol]Ordered By: Peg Ruiz on 68-78-3388Yixavuzo mean volume (Bld) [Entitic vol]Platelet mean volume [Entitic volume] in Blood by Automated count6.3-10.7FMercy Health – The Jewish HospitalPlatelets Auto (Bld) [#/Vol] Ordered By: Peg Ruiz on 48-23-8486Balihmlnh (Bld) [#/Vol]Platelets [#/volume] in Blood by Automated fqpri305-259YfmtolpycHolmes County Joel Pomerene Memorial Hospital Potassium [Moles/volume] in Serum or PlasmaOrdered By: Peg Ruiz on 73-06-6293Lnratzaiu [Moles/Vol]Potassium [Moles/volume] in Serum or Plasma 3.5-5.1FMercy Health – The Jewish HospitalProtein Test strip (U) [Mass/Vol]Ordered By: Peg Ruiz on 78-86-1823Mkgxcmp (U) [Mass/Vol]Protein [Mass/volume] in Urine by Test stripNegativeHolmes County Joel Pomerene Memorial HospitalProthrombin Time INR on 43-21-8074SEB Coag (PPP) [Relative time]1.0 {INR}NormalThe [facility] Physician GroupComment on above:Result Comment: INR Therapeutic Range A) Pre- and [...] patients with mechanical heart valves: 3 - 4.5Performed By: #### CK, BMP, PT, BNP, DDIMER, CBC, HS TROP ####[facility] [place] [address] USAPT Coag (PPP) [Time]11.1 sNormal9.0-12.9The [facility] Physician GroupComment on above:Result Comment: A hematocrit value greater than 55% may lead to inaccurate results in coagulation testing. Patients having hematocrit values >55% require a special collection tube for coagulation studies. Please contact the laboratory at [phone] for redraw instructions.Performed By: #### CK, BMP, PT, BNP, DDIMER, CBC, HS TROP ####[facility] [place] [id number] [facility] Prothrombin time (PT)Ordered By: Peg Ruiz on 72-63-5392GU Coag (PPP) [Time] Prothrombin time (PT)9.0-12.9[facility] HospitalComment on above:A hematocrit value greater than 55% may lead to inaccurate results in coagulation testing. Patientshaving hematocrit values >55% require a special collection tube for coagulation studies. Please contact the laboratory at [phone] for redraw instructions.RBC Auto (Bld) [#/Vol]Ordered By: Peg Ruiz on 09-17-2024 RBC (Bld) [#/Vol]Erythrocytes [#/volume] in Blood by Automated count3.60-5.00 [facility] Healtherum or plasma anion gap determinationOrdered By: Peg Ruiz on 85-19-3920Cvwln gap [Moles/Vol]Serum or plasma anion gap determination6.0-15.0Premier Healthodium [Moles/volume] in Serum or PlasmaOrdered By: Peg Ruiz on 16-17-7989Kefcra [Moles/Vol]Sodium [Moles/volume] in Serum or Rjypzk746-417MpusntcthHolmes County Joel [facility]omerene [facility] Hospital Specific gravity Test strip (U) [Rel density]Ordered By: Peg Ruiz on 18-91-5839Dpxhxfni gravity (U) [Rel density]Specific gravity of Urine by Test strip1.001-1.030[facility] HospitalTroponin I High Sensitivityon 96-99-0630Ednthfjb I High Sensitivity<3Kpggej2-20Xxl [facility] Comment on above:Result Comment: The Troponin units of report have been changed to meet the Chest Pain Accreditation requirement, element EC5.M1l2. Troponin units are changed from pg/ml to ng/L. Also, the decimal is removed and results are in whole numbers. PERFORMED BY: [facility] [address] [place] [id number] PATHOLOGIST PLATEN DRIER OPERATOR RAFIA LOPEZ M.D.Performed By: #### CK, BMP, PT, BNP, DDIMER, CBC, HS TROP ####[facility] [address] [place] [id number] [facility] Troponin I.cardiac [Mass/volume] in Serum or Plasma by Detection limit <= 0.01 ng/Ordered By: Peg Ruiz on 87-16-9981Fntlblcy I.cardiac DL <= 0.01 ng/mL [Mass/Vol]Troponin I.cardiac [Mass/volume] in Serum or Plasma by Detection limit <= 0.01 ng/0-15[facility] HospitalComment on above:The Troponin units of report have been changed to meet the Chest Pain Accreditation requirement, element EC5.M1l2. Troponin units are changed from pg/ml to ng/L. Also, the decimal is removed and results are in whole numbers.Urea nitrogen [Mass/volume] in Serum or PlasmaOrdered By: Peg Ruiz on 74-24-5537Odfx nitrogen [Mass/Vol]Urea nitrogen [Mass/volume] in Serum or Plasma7[facility] HospitalUrobilinogen Test strip (U) [Mass/Vol]Ordered By: Peg Ruiz on 30-68-9114Sxipbixrsfhh (U) [Mass/Vol]Urobilinogen [Mass/volume] in Urine by Test stripNormalHolmes County Joel Pomerene Memorial HospitalWBC Auto (Bld) [#/Vol] Ordered By: Peg Ruiz on 93-19-7348GWD (Bld) [#/Vol]Leukocytes [#/volume] in Blood by Automated count3.8-11.6FMercy Health – The Jewish HospitalX-ray report Ordered By: Prince Heath on 47-36-2707Rqsuy reportSELECT [facility]ICAL [facility] Main [place] [id number] XRay Report Signed Patient: Brittanie Garcia MR# : [id number] : 1985 Acct:[id number] Age/Sex: 39 / F ADM Date: 5 Loc: ER Room: Type: [facility] ER Attending Dr: Copies to: Peg [...] Heath Jr, DO 09/17/24827 Signed By: 09/17/2428 [facility] HospitalXR chest 2V*on 12-54-4639SG chest 2V*[facility] [place] [address] XRay Report Signed Patient: Brittanie Garcia MR#: [id number] : 1985 Acct:[id number] Age/Sex: 39 / F ADM Date: 09/17/24 Loc: ER Room: Type: [facility] ER Attending Dr: Copies to: Peg [...] Prince Heath Jr, DO 09/17/24827 Signed By: 09/17/24 0828[facility] Physician GrouppH Test strip (U)Ordered By: Peg Ruiz on 62-54-1670bF (U)pH of Urine by Test strip5.0-9.0[facility] HospitalAlanine aminotransferase [Enzymatic activity/volume] in Serum or PlasmaOrdered By: Luis Goins on 62-37-4702JKN [Catalytic activity/Vol]Alanine aminotransferase [Enzymatic activity/volume] in Serum or Plasma7-52[facility] HospitalAlbumin [Mass/volume] in Serum or Plasma by Bromocresol green (BCG) dye binding methoOrdered By: Luis Goins on 62-68-2279Zicmuna BCG dye [Mass/Vol]Albumin [Mass/volume] in Serum or Plasma by Bromocresol green (BCG) dye binding metho3.5-5.7FMercy Health – The Jewish HospitalAlkaline phosphatase [Enzymatic activity/volume] in Serum or PlasmaOrdered By: Luis Goins on 09-34-2529ZAE [Catalytic activity/Vol]Alkaline phosphatase [Enzymatic activity/volume] in Serum or Cdkbhy84-301BclsrsttcHolmes County Joel Pomerene Memorial HospitalAppearance of UrineOrdered By: Luis Goins on 97-42-4303Uzamnsabqm (U)Urine appearanceCleSt. Elizabeth Hospital Aspartate aminotransferase [Enzymatic activity/volume] in Serum or PlasmaOrdered By: Luis Goins on 90-62-6666JNJ [Catalytic activity/Vol]Aspartate aminotransferase [Enzymatic activity/volume] in Serum or Gyvcxz16-85IplycrljcHolmes County Joel Pomerene Memorial HospitalBacteria [Presence] in Urine by AutomatedOrdered By: Luis Goins 28-01-9385Uibthcuy Auto Ql (U)Bacteria [Presence] in Urine by AutomatedHighNone SeenHolmes County Joel Pomerene Memorial HospitalBasophils Auto (Bld) [#/Vol]Ordered By: Luis Goins 32-48-4500Mriphgzhv (Bld) [#/Vol] Automated basophil count0.0-0.2FMercy Health – The Jewish HospitalBasophils/100 WBC Auto (Bld)Ordered By: Luis Goins 28-89-8791Ioslytcum/100 WBC (Bld) Automated basophil %.[facility] HospitalBilirubin Test strip Ql (U)Ordered By: Luis Goins on 57-91-4021Lavckasuj Ql (U)Bilirubin.total [Presence] in Urine by Test stripNegativeHolmes County [facility] Hospital Bilirubin.total [Mass/volume] in Serum or PlasmaOrdered By: Luis Goins on 11-18-4717Mnqyioart [Mass/Vol]Bilirubin.total [Mass/volume] in Serum or Plasma 0.3-1.0[facility] HospitalCOVID Cepheid NegativeOrdered By: Luis Goins on 12-35-2317QZUS-CoV-2 (COVID-19) Ab IA QlCOVID Cepheid NegativeHolmes County Joel Pomerene Memorial HospitalComment on above:This is a duplicate Cepheid Xpert Xpress CoV-2/Flu/RSV Plus RNA by RT-PCR result to be used for stat istical tracking purpose only.COVID-19 / Flu A/B / RSV PCRon 08-01-2024 SARS-CoV-2 (COVID-19) RNA LISBETH+probe Ql (Unsp spec)COVID-19 Cepheid Result Negative for SARS-CoV-2 RNA by [...] or Cepheid Disclaimer revoked sooner. PERFORMED BY: [address] [address] PATHOLOGIST PLATEN DRIER OPERATOR RAFIA LOPEZ M.D.NormalThe [facility] Physician GroupComment on above: Performed By: #### CEPHEID NEG, ADDONUAPLUS, COVID19 FLU RSV #### [facility] [address] [place] [address] USACalcium [Mass/volume] in Serum or PlasmaOrdered By: Luis Goins on 62-72-7829Uyrndac [Mass/Vol]Calcium [Mass/volume] in Serum or Plasma8.6-10.3FMercy Health – The Jewish HospitalCarbon dioxide, total [Moles/volume] in Serum or PlasmaOrdered By: Luis Goins on 13-12-2978II1 [Moles/Vol]Carbon dioxide, total [Moles/volume] in Serum or Pbucxl09.0-31.0 [facility] HospitalCepheid COVID PCR Negativeon 08-01-2024 SARS-CoV-2 (COVID-19) RNA LISBETH+probe Ql (Unsp spec)NegativeNormalNegativeThe [facility] Physician GroupComment on above:Result Comment: This is a duplicate Cepheid Xpert Xpress CoV-2/Flu/RSV Plus RNA by RT-PCR result to be used for statistical tracking purpose only. PERFORMED BY: [address] [address] PATHOLOGIST PLATEN DRIER OPERATOR RAFIA LOPEZ M.D.Performed By: #### CEPHEID NEG, ADDONUAPLUS, COVID19 FLU RSV #### [facility] [address] [place] [address] USAChloride [Moles/volume] in Serum or PlasmaOrdered By: Luis Goins on 53-64-2236Jailqxgo [Moles/Vol]Chloride [Moles/volume] in Serum or Asinfy42-643AfebfxguiHolmes County Joel Pomerene Memorial HospitalColor Auto (U)Ordered By: Luis Goins on 29-99-4003Lidlu (U)Color of Urine by AutoYellowHolmes County Joel Pomerene Memorial HospitalComplete Blood Count Auto Diffon 33-76-3689Fisufwezc (Bld) [#/Vol]0.0 10*3/uLNormal0.0-0.2The [facility] Physician GroupComment on above:Result Comment: PERFORMED BY: [facility] [address] [place] [id number] PATHOLOGIST PLATEN DRIER OPERATOR RAFIA LOPEZ M.D.Performed By: #### CBC, CMP ####[place] [id number] USABasophils/100 WBC (Bld)0.7 % Normal.The [facility] Physician GroupComment on above:Performed By: #### CBC, CMP ####[address] [address] [place] Eosinophils (Bld) [#/Vol]0.0 10*3/uLNormal0.0-0.45The [facility] Comment on above:Performed By: #### CBC, CMP ####[place] [id number] USAEosinophils/100 WBC (Bld)0.4 %Normal. The [facility] Physician GroupComment on above:Performed By: #### CBC, CMP ####[place] [phone] [place] Erythrocyte distribution width (RBC) [Ratio]13.3 %Mvenwk76.9-15.3The [facility] Physician GroupComment on above:Performed By: #### CBC, CMP ####[place] [phone] USAHematocrit (Bld) [Volume fraction]39.8 %Sraoes42.0-46.4The [facility] Physician GroupComment on above:Performed By: #### CBC, CMP ####[address] [address] USAHemoglobin (Bld) [Mass/Vol]13.4 g/pIQcefpt38.8-15.4 The [facility] Physician GroupComment on above:Performed By: #### CBC, CMP ####[place] [address] [place] Lymphocytes (Bld) [#/Vol]1.1 10*3/uLNormal1.00-4.8The [facility] Comment on above:Performed By: #### CBC, CMP ####[place] [address] USALymphocytes/100 WBC (Bld)44.4 %Normal. The [facility] Physician GroupComment on above:Performed By: #### CBC, CMP ####[address]H (RBC) [Entitic mass]29.3 fdMlcevj62.7-34.3The [facility] Physician GroupComment on above:Performed By: #### CBC, CMP ####[address] (RBC) [Entitic vol]86.8 bEOhkhkq59-724Mnw [facility] Physician GroupComment on above:Performed By: #### CBC, CMP ####[place] [address] USAMean Corpuscular HGB Conc33.7 g/gCXefbhg25.0-35.0The [facility] Physician GroupComment on above:Performed By: #### CBC, CMP ####[place] [address] USAMonocytes (Bld) [#/Vol]0.3 10*3/uLNormal 0.0-0.8The [facility] Physician GroupComment on above:Performed By: #### CBC, CMP ####[place] [address] [place] Monocytes/100 WBC (Bld)26.77 %High0.00-20.00The [facility] Physician GroupComment on above:Result Comment: For adults in ED, MDW > 20.0 may be associated with a higher risk of sepsis during the first 12 hrs of hospital admissionPerformed By: #### CBC, CMP ####[address] [address] USAMonocytes/100 WBC (Bld)11.1 %Normal.The [facility] Physician GroupComment on above:Performed By: #### CBC, CMP ####[address] [address] USANeutrophils (Bld) [#/Vol]1.1 10*3/uLLow1.8-7.7The [facility] Physician GroupComment on above:Performed By: #### CBC, CMP ####[address] [address] [place] Neutrophils/100 WBC (Bld)43.4 %Normal.The [facility] Physician GroupComment on above:Performed By: #### CBC, CMP ####[address] [address] USANRBC%0.3 /100{WBC}Normal0-0.5The [facility] Physician GroupComment on above:Performed By: #### CBC, CMP ####[address] [address] USAPlatelet mean volume (Bld) [Entitic vol]7.7 fLNormal6.3-10.7The [facility] Physician GroupComment on above: Performed By: #### CBC, CMP ####[address] [address] USAPlatelets (Bld) [#/Vol]196 10*3/jTIxaqqz199-526Wrl [facility] Physician GroupComment on above:Performed By: #### CBC, CMP ####[address] [address] USARBC (Bld) [#/Vol]4.58 10*6/uLNormal3.60-5.00The [facility] Physician GroupComment on above:Performed By: #### CBC, CMP ####[address] [address] USAWBC (Bld) [#/Vol]2.5 10*3/uLLow3.8-11.6The [facility] Physician GroupComment on above:Performed By: #### CBC, CMP ####[address] [address] USAComprehensive Metabolic Panelon 49-77-7437Fxocsyd [Mass/Vol]4.2 g/dLNormal3.5-5.7The [facility] Physician GroupComment on above:Performed By: #### CBC, CMP ####[place] [address] USAAlbumin/Globulin [Mass ratio]1.5 {ratio}NormalThe [facility] Physician GroupComment on above: Performed By: #### CBC, CMP ####[place] [address] USAALP [Catalytic activity/Vol]58 U/KBpbtdn20-879Nid [facility] Physician GroupComment on above:Performed By: #### CBC, CMP ####[place] [address] USAALT [Catalytic activity/Vol]22 U/LNormal7-52The [facility] Physician GroupComment on above:Performed By: #### CBC, CMP ####[place] [address] USAAnion gap [Moles/Vol]10.6 mmol/LNormal6.0-15.0The [facility] Physician GroupComment on above:Performed By: #### CBC, CMP ####[place] [address] USAAST [Catalytic activity/Vol]23 U/GJqdgfu13-43Vqs [facility] Physician GroupComment on above:Performed By: #### CBC, CMP ####[place] [address] USABilirubin [Mass/Vol]0.3 mg/dLNormal0.3-1.0The [facility] Physician GroupComment on above:Performed By: #### CBC, CMP ####[place] [address] USACalcium [Mass/Vol]8.8 mg/dLNormal8.6-10.3The [facility] Physician GroupComment on above: Performed By: #### CBC, CMP ####[address] [address] USAChloride [Moles/Vol]106 mmol/KFfscih36-569Jcy [facility] Physician GroupComment on above:Performed By: #### CBC, CMP ####[address] [address] USACO2 [Moles/Vol]27.0 mmol/XIkdeka32.0-31.0The [facility] Physician GroupComment on above:Performed By: #### CBC, CMP ####[address] [address] USACreatinine [Mass/Vol]0.88 mg/dLNormal0.60-1.20The [facility] Physician GroupComment on above:Performed By: #### CBC, CMP ####[place] [address] [place] Creatinine Clr Calc Dkgncdth30.02NormalThSaint Alphonsus [facility] Physician GroupComment on above:Result Comment: PERFORMED BY: [facility] [address] [place] [id number] PATHOLOGIST PLATEN DRIER OPERATOR RAFIA LOPEZ M.D.Performed By: #### CBC, CMP ####[address] [address] USAGFR/1.73 sq M.predicted MDRD (S/P/Bld) [Vol rate/Area]mL/min/{1.73_m2}NormalThe [facility] Comment on above:Performed By: #### CBC, CMP ####[address] [address] USAGlobulin (S) [Mass/Vol]2.8 g/dLNormal The [facility] Physician GroupComment on above:Performed By: #### CBC, CMP ####[address] [address] USAGlucose [Mass/Vol]87 mg/vQVmebeq48-175Zui [facility] Physician GroupComment on above: Result Comment: Random Glucose Reference Range is dependent on time and content of last meal. Glucose of more than 200 mg/dL in a nonstressed, ambulatory subject supports the diagnosis of Diabetes Mellitus. ADA recommended reference rangePerformed By: #### CBC, CMP ####[facility] [place] [address] USAPotassium [Moles/Vol] 3.6 mmol/LNormal3.5-5.1The [facility] Physician GroupComment on above:Performed By: #### CBC, CMP ####[facility] [place] [address] USAProtein [Mass/Vol]7.0 g/dLNormal6.4-8.9The [facility] Comment on above:Performed By: #### CBC, CMP ####[facility] [place] [address] USASodium [Moles/Vol]140 mmol/LNormal 136-145The [facility] Physician GroupComment on above:Performed By: #### CBC, CMP ####[facility] [place] [address] USAUrea nitrogen [Mass/Vol]8 mg/dLNormal7-25The [facility] Physician GroupComment on above:Performed By: #### CBC, CMP ####[facility] [place] [id number] USACreatinine [Mass/volume] in Serum or PlasmaOrdered By: Luis Goins on 27-06-3101Hzrcbqaolc [Mass/Vol]Creatinine [Mass/volume] in Serum or Plasma0.60-1.20[facility] HospitalDipstick and Microscopicon 61-48-8961Qpmlqkkanj (U)ClearNormalClearThe [facility] Physician GroupComment on above:Order Comment: Name Collection Type:: VoidedPerformed By: #### CEPHEID NEG, ADDONUAPLUS, COVID19 FLU RSV #### [facility] [address] [place] [id number] USABacteria,Urine1+HighNone SeenThe [facility] Comment on above:Order Comment: Name Collection Type:: VoidedPerformed By: #### CEPHEID NEG, ADDONUAPLUS, COVID19 FLU RSV #### [place] [phone] USABilirubin,UrineNegativeNormalNegativeBaptist Health [facility] Physician GroupComment on above:Order Comment: Name Collection Type:: Voided Performed By: #### CEPHEID NEG, ADDONUAPLUS, COVID19 FLU RSV #### [place] [address] USAColor (U)Light-YellowNormalYellowBaptist Health [facility] Physician GroupComment on above:Order Comment: Name Collection Type:: VoidedPerformed By: #### CEPHEID NEG, ADDONUAPLUS, COVID19 FLU RSV #### [place] [address] USAGlucose Ql (U)NormalNormalNormalThe [facility] Physician GroupComment on above:Order Comment: Name Collection Type:: VoidedPerformed By: #### CEPHEID NEG, ADDONUAPLUS, COVID19 FLU RSV #### [place] [address] USAHyaline Casts,UrineNoneNormal0-8The [facility] Physician GroupComment on above:Order Comment: Name Collection Type:: VoidedPerformed By: #### CEPHEID NEG, ADDONUAPLUS, COVID19 FLU RSV #### [place] [phone] USAKetones Ql (U)NegativeNormalNegativeBaptist Health [facility] Physician GroupComment on above:Order Comment: Name Collection Type:: Voided Performed By: #### CEPHEID NEG, ADDONUAPLUS, COVID19 FLU RSV #### [place] [phone] USALeukocyte esterase Test strip Ql (U)3+HighNegativeThe [facility] Physician GroupComment on above:Order Comment: Name Collection Type:: VoidedPerformed By: #### CEPHEID NEG, ADDONUAPLUS, COVID19 FLU RSV #### [place] [address] USAMucus,Urine1+Critically abnormalThe [facility] Physician GroupComment on above:Order Comment: Name Collection Type:: VoidedResult Comment: PERFORMED BY: [place] [address] PATHOLOGIST PLATEN DRIER OPERATOR RAFIA LOPEZ M.D.Performed By: #### CEPHEID NEG, ADDONUAPLUS, COVID19 FLU RSV #### [place] [address] USANitrite,UrineNegativeNormalNegativeThe [facility] Physician GroupComment on above:Order Comment: Name Collection Type:: VoidedPerformed By: #### CEPHEID NEG, ADDONUAPLUS, COVID19 FLU RSV #### [place] [address] USAOccult Blood,UrineNegativeNormalNegativeThe [facility] Physician GroupComment on above:Order Comment: Name Collection Type:: Voided Result Comment: PERFORMED BY: [place] [address] PATHOLOGIST PLATEN DRIER OPERATOR RAFIA LOPEZ M.D.Performed By: #### CEPHEID NEG, ADDONUAPLUS, COVID19 FLU RSV #### [place] [address] USApH (U)6.0 [pH]Normal5.0-9.0The [facility] Comment on above:Order Comment: Name Collection Type:: VoidedPerformed By: #### CEPHEID NEG, ADDONUAPLUS, COVID19 FLU RSV #### [place] [address] USAProtein,UrineNegativeNormalNegativeThe [facility] Physician GroupComment on above:Order Comment: Name Collection Type:: VoidedPerformed By: #### CEPHEID NEG, ADDONUAPLUS, COVID19 FLU RSV #### [place] [address] USARBC,Ixlcg3-9Xuxkke5-7Qja [facility] Physician GroupComment on above:Order Comment: Name Collection Type:: VoidedPerformed By: #### CEPHEID NEG, ADDONUAPLUS, COVID19 FLU RSV #### [facility] [address] [place] [address] USASpecificy [place],Urine1.015Admmbd9.001-1.030The [facility] Physician GroupComment on above:Order Comment: Name Collection Type:: Voided Performed By: #### CEPHEID NEG, ADDONUAPLUS, COVID19 FLU RSV #### [facility] [address] [place] [address] USASquamous Epithelial Cell,Lcspj14-71Qyay7-8Aji [facility] Physician GroupComment on above:Order Comment: Name Collection Type:: Voided Performed By: #### CEPHEID NEG, ADDONUAPLUS, COVID19 FLU RSV #### [place] [address] USAUrobilinogen,UrineNormalNormalNormalThe [facility] Physician GroupComment on above:Order Comment: Name Collection Type:: Voided Performed By: #### CEPHEID NEG, ADDONUAPLUS, COVID19 FLU RSV #### [facility] [address] [place] [address] USAWBC,Mkbdi3-1Fimccn8-7Dmx [facility] Physician GroupComment on above:Order Comment: Name Collection Type:: VoidedPerformed By: #### CEPHEID NEG, ADDONUAPLUS, COVID19 FLU RSV #### [place] [address] USAEosinophils Auto (Bld) [#/Vol]Ordered By: Luis Goins on 47-52-0653Gxkgeiojpti (Bld) [#/Vol]Automated eosinophil count0.0-0.45 [facility] HospitalEosinophils/100 WBC Auto (Bld)Ordered By: Luis Goins on 32-99-8699Oekzixmnsip/100 WBC (Bld)Automated eosinophil %. [facility] HospitalEpithelial cells.squamous [#/area] in Urine sediment by Automated countOrdered By: Luis Goins on 08-37-6067Ggqdqzyoxy cells.squamous Auto (Urine sed) [#/Area]Epithelial cells.squamous [#/area] in Urine sediment by Automated countHigh0-2FMercy Health – The Jewish Hospital Erythrocyte distribution width Auto (RBC) [Ratio]Ordered By: Luis Goins on 81-97-3677Oamlxrcarbs distribution width (RBC) [Ratio]Erythrocyte distribution width [Ratio] by Automated count11.9-15.3FMercy Health – The Jewish HospitalErythrocytes [#/area] in Urine sediment by Automated countOrdered By: Luis Goins on 88-51-8119EWR Auto (Urine sed) [#/Area]Erythrocytes [#/area] in Urine sediment by Automated count0-4FMercy Health – The Jewish HospitalGlobulin Calc (S) [Mass/Vol]Ordered By: Luis Goins on 08-01-2024 Globulin (S) [Mass/Vol]Serum globulin measurement by calculation (mass/volume) [facility] HospitalGlucose [Mass/volume] in Serum or PlasmaOrdered By: Luis Goins on 98-88-3356Tgddbcj [Mass/Vol]Glucose [Mass/volume] in Serum or Bgzdlc87-474HkpbawnkcHolmes County Joel Pomerene Memorial HospitalComment on above:ADA recommended reference rangeRandom Glucose Reference Range is dependent on time and content of last meal. Glucose of more than 200 mg/dL in a nonstressed, ambulatory subject supports the diagnosisof Diabetes Mellitus.Glucose [Mass/volume] in Urine by Test stripOrdered By: Luis Goins on 08-01-2024 Glucose Test strip (U) [Mass/Vol]Glucose [Mass/volume] in Urine by Test strip NormalHolmes County Joel Pomerene Memorial HospitalHematocrit Auto (Bld) [Volume fraction] Ordered By: Luis Goins on 28-24-7474Tcapcedmlx (Bld) [Volume fraction] Hematocrit [Volume Fraction] of Blood by Automated count34.0-46.4FMercy Health – The Jewish HospitalHemoglobin Test strip Ql (U)Ordered By: Luis Goins on 32-23-7361Jgomcrdswt Ql (U)Hemoglobin [Presence] in Urine by Test strip NegativeHolmes County Joel Pomerene Memorial HospitalHemoglobin [Mass/volume] in Blood Ordered By: Luis Goins on 74-33-3500Qpfuqunutz (Bld) [Mass/Vol]Hemoglobin [Mass/volume] in Blood11.8-15.4FMercy Health – The Jewish HospitalHyaline casts [#/area] in Urine sediment by Automated countOrdered By: Luis Goins on 94-27-6695Jvpwzdb casts Auto (Urine sed) [#/Area]Hyaline casts [#/area] in Urine sediment by Automated count0-8[facility] HospitalKetones Test strip Ql (U)Ordered By: Luis Goins on 81-97-1798Dhmeyyo Ql (U)Ketones [Presence] in Urine by Test stripNegativeHolmes County [facility] Hospital Leukocyte esterase [Presence] in Urine by Test stripOrdered By: Luis Goins on 78-23-7314Djufxzokp esterase Test strip Ql (U)Leukocyte esterase [Presence] in Urine by Test stripHighNegativeHolmes County Joel Pomerene [facility] Hospital Leukocytes [#/area] in Urine sediment by Automated countOrdered By: Luis Goins on 86-36-7118VFC Auto (Urine sed) [#/Area]Leukocytes [#/area] in Urine sediment by Automated count0-4FMercy Health – The Jewish HospitalLeukocytes [#/volume] corrected for nucleated erythrocytes in Blood by Automated coun Ordered By: Luis Goins on 74-81-4325IZC corrected for nucl RBC Auto (Bld) [#/Vol]Leukocytes [#/volume] corrected for nucleated erythrocytes in Blood by Automated counLow3.8-11.6FMercy Health – The Jewish HospitalLymphocytes Auto (Bld) [#/Vol]Ordered By: Luis Goins on 06-34-1384Gxbikaioswu (Bld) [#/Vol] Lymphocytes [#/volume] in Blood by Automated count1.00-4.8[facility] HospitalLymphocytes/100 WBC Auto (Bld)Ordered By: Luis Goins on 75-80-2634Urohmsrfahj/100 WBC (Bld)Lymphocytes/100 leukocytes in Blood by Automated count.[facility] HospitalMCH Auto (RBC) [Entitic mass] Ordered By: Luis Goins on 44-45-8032YOJ (RBC) [Entitic mass]MCH [Entitic mass] by Automated count24.7-34.3FMercy Health – The Jewish HospitalMCHC Auto (RBC) [Mass/Vol]Ordered By: Luis Goins on 78-90-1659IXOZ (RBC) [Mass/Vol] MCHC [Mass/volume] by Automated count32.0-35.0[facility] MCV Auto (RBC) [Entitic vol]Ordered By: Luis Goins on 08-76-2981IDN (RBC) [Entitic vol]MCV [Entitic volume] by Automated aiopl24-263LiiyfzbwoHolmes County Joel Pomerene Memorial HospitalMonocyte distribution width [Entitic volume] in Blood by Automated Ordered By: Luis Goins on 49-31-2143Lomphaqh distribution width Auto (Bld) [Entitic vol]Monocyte distribution width [Entitic volume] in Blood by AutomatedHigh0.00-20.00[facility] HospitalComment on above:For adults in ED, MDW > 20.0 may be associated with a higher risk of sepsis during the first 12 hrs of hospital admissionMonocytes Auto (Bld) [#/Vol]Ordered By: Luis Goins on 72-75-1942Ufrxhglvq (Bld) [#/Vol]Automated blood monocyte count0.0-0.8[facility] HospitalMonocytes/100 WBC Auto (Bld)Ordered By: Luis Goins on 04-27-7203Jodehmxrq/100 WBC (Bld)Automated monocyte %. [facility] HospitalMucus [Presence] in Urine by AutomatedOrdered By: Luis Goins on 24-68-3428Xsqej Auto Ql (U)Mucus [Presence] in Urine by AutomatedAbnormalHolmes County Joel Pomerene Memorial HospitalNeutrophils Auto (Bld) [#/Vol]Ordered By: Luis Goins on 99-09-0002Wrdowupcwhp (Bld) [#/Vol] Neutrophils [#/volume] in Blood by Automated countLow1.8-7.7FMercy Health – The Jewish HospitalNeutrophils/100 WBC Auto (Bld)Ordered By: Luis Goins on 77-55-5611Ivvplbjqtlp/100 WBC (Bld)Automated neutrophil %.[facility] HospitalNitrite Test strip Ql (U)Ordered By: Luis Goins on 18-39-3389Mjbfnqm Ql (U)Nitrite [Presence] in Urine by Test stripNegative [facility] HospitalNo Panel InformationOrdered By: Luis Goins on 03-72-5908Tgaexigst GFR (CKD-EPI)> 60.0 mL/MinHolmes County Joel Pomerene Memorial HospitalPharmacy Creatinine Clearance (Chem82.02[facility] HospitalNucleated erythrocytes [Presence] in Blood by Automated countOrdered By: Luis Goins on 04-81-8258Outakxtrm RBC Auto Ql (Bld)Nucleated erythrocytes [Presence] in Blood by Automated count0-0.5FMercy Health – The Jewish Hospital Platelet mean volume Auto (Bld) [Entitic vol]Ordered By: Luis Goins on 90-18-9697Qixmdvqq mean volume (Bld) [Entitic vol]Platelet mean volume [Entitic volume] in Blood by Automated count6.3-10.7FMercy Health – The Jewish Hospital Platelets Auto (Bld) [#/Vol]Ordered By: Luis Goins on 03-11-8958Mwwhimqcu (Bld) [#/Vol]Platelets [#/volume] in Blood by Automated ginvd098-067AeisspihgHolmes County Joel Pomerene Memorial HospitalPotassium [Moles/volume] in Serum or PlasmaOrdered By: Luis Goins on 31-61-6218Lllqjtzlc [Moles/Vol]Potassium [Moles/volume] in Serum or Plasma3.5-5.1FMercy Health – The Jewish HospitalProtein Test strip (U) [Mass/Vol]Ordered By: Luis Goins on 51-83-0514Kvbailv (U) [Mass/Vol] Protein [Mass/volume] in Urine by Test stripNegativeHolmes County Joel Pomerene Memorial HospitalProtein [Mass/volume] in Serum or PlasmaOrdered By: Luis Goins on 96-90-8996Lgyxgxx [Mass/Vol]Protein [Mass/volume] in Serum or Plasma6.4-8.9 [facility] HospitalRBC Auto (Bld) [#/Vol]Ordered By: Luis Goins on 57-83-3762QPN (Bld) [#/Vol]Erythrocytes [#/volume] in Blood by Automated count3.60-5.00[facility] HospitalRespiratory specimen influenza A virus, influenza B virus, respiratory syncytical virOrdered By: Luis Goins on 14-35-1293WCPW-CoV-2 (COVID-19) RNA LISBETH+probe Ql (Unsp spec)Respiratory specimen influenza A virus, influenza B virus, respiratory syncytical virPremier Healtherum or plasma albumin/globulin mass ratioOrdered By: Luis Goins on 01-19-9132Yoicioh/Globulin [Mass ratio]Serum or plasma albumin/globulin mass ratioPremier Healtherum or plasma anion gap determinationOrdered By: Luis Goins on 65-23-0259Afglo gap [Moles/Vol]Serum or plasma anion gap determination6.0-15.0 Premier Healthodium [Moles/volume] in Serum or PlasmaOrdered By: Luis Goins on 86-24-6906Dpwpxj [Moles/Vol]Sodium [Moles/volume] in Serum or Mduxop415-011MfkdvcietPremier Healthpecific gravity Test strip (U) [Rel density]Ordered By: Luis Goins on 70-50-6441Vxnhqdda gravity (U) [Rel density]Specific gravity of Urine by Test strip1.001-1.030 [facility] HospitalUrea nitrogen [Mass/volume] in Serum or Plasma Ordered By: Luis Goins on 42-96-2975Dywf nitrogen [Mass/Vol]Urea nitrogen [Mass/volume] in Serum or Plasma7-[facility] Urobilinogen Test strip (U) [Mass/Vol]Ordered By: Luis Goins on 32-14-0121Rnhgpgvpsgjp (U) [Mass/Vol]Urobilinogen [Mass/volume] in Urine by Test stripNormalHolmes County Joel Pomerene Memorial HospitalWBC Auto (Bld) [#/Vol]Ordered By: Luis Goins on 53-56-7908VXA (Bld) [#/Vol]Leukocytes [#/volume] in Blood by Automated countLow3.8-11.6FMercy Health – The Jewish HospitalX-ray report Ordered By: Prince Heath on 23-18-7929Tmiki reportSELECT [facility]ICAL [facility] [place] [place] [address] XRay Report Signed Patient: Brittanie Garcia MR# : [id number] : 1985 Acct:[id number] Age/Sex: 39 / F ADM Date: 5 Loc: ER Room: Type: [facility] ER Attending Dr: Copies to: Luis Goins DO~ Ordering Provider: Luis Goins DO Date of Service: 08/01/24 XR/XR chest 2V*: Upper Respiratory Infection ([id number]) XR/XR lumbar spine 2-3V*: Upper Respiratory Infection [...] CHANGE. Impression dictated by: Prince Heath Jr., D.OLatisha08/01/2024 9:17 AM Dictation Location: [place] [address] Transcribed By: [facility] 08/01/24 09 Dictated By: Prince Heath Jr, DO 08/01/24 0916 Signed By: 08/01/24 0917 [facility] HospitalXR lumbar spine 2-3V*on 90-04-7851ET lumbar spine 2-3V*[facility] [place] [place] [address] XRay Report Signed Patient: Brittanie Garcia MR#: [id number] : 1985 Acct:[id number] Age/Sex: 39 / F ADM Date: 08/01/24 Loc: ER Room: Type: [facility] ER Attending Dr: Copies to: Luis Goins DO Ordering Provider: Luis Goins DO Date of Service: 08/01/24 XR/XR chest 2V*: Upper Respiratory Infection ([id number]) XR/XR lumbar spine 2-3V*: Upper Respiratory Infection [...] Heath Jr., D.O.08/01/2024 9:17 AM Dictation Location: [place] [address] Transcribed By: [facility] 08/01/24 0917 Dictated By: Prince Heath Jr, DO 08/01/24 0916 Signed By: 08/01/24 0917[facility] Physician [facility] CenterpH Test strip (U)Ordered By: Luis Goins on 14-66-6145gN (U)pH of Urine by Test strip5.0-9.0[facility] HospitalOVon 43-33-9939XNXQPsxerh Visit ([facility]) BRITTANIE GARCIA ([id number]) 1985 F Date Time Provider Department 07/30/24 4:30 PM DAVID SULLIVAN [facility] During your visit today, we recorded the following information about you: Pulse Blood pressure Weight Height 106/minute 128/82 75 kg 1.575 m David Sullivan MD 07/30/2024 4:57 PM Signed BOTOX [...] brought in by patient? No Lot #: [id number] Exp: 09/2026 Dilution: 5 units/0.1 ml (100 [...] (optional for EMERGENT procedures): No specimen collected. David Sullivan MD Injection Sites Muscle Fixed Site/Fixed Dose Optional follow pain # units L R Radial Router Operator 10 units divided in 2 sites XXXXXXX [...] some discomfort. Change in Treatment Plan? No David Sullivan MD Referring Provider: DAVID SULLIVAN [[id number]] Allergies As of Date: 07/30/2024 Noted Allergy [...] for Encounter Date Provider Department Center 07/30/2024 [id number], TED [facility] Encounter Status:Closed by DAVID SULLIVAN on 07/30/24[facility] HospitalAl[facility] aminotransferase [Enzymatic activity/volume] in Serum or Plasma Ordered By: Babar Singh on 19-48-2073MSR [Catalytic activity/Vol]Alanine aminotransferase [Enzymatic activity/volume] in Serum or PlasmaHampshire Memorial Hospital7-52[facility] HospitalAlbumin [Mass/volume] in Serum or Plasma by Bromocresol green (BCG) dye binding methoOrdered By: Babar Singh on 15-77-9589Owvrdsv BCG dye [Mass/Vol]Albumin [Mass/volume] in Serum or Plasma by Bromocresol green (BCG) dye binding metho3.5-5.7FMercy Health – The Jewish HospitalAlkaline phosphatase [Enzymatic activity/volume] in Serum or PlasmaOrdered By: Babar Singh on 73-51-1792WVO [Catalytic activity/Vol]Alkaline phosphatase [Enzymatic activity/volume] in Serum or Kptiej03-420StbdfaleuHolmes County Joel Pomerene Memorial Hospital Appearance of UrineOrdered By: NOLVIA SINGH on 58-61-0363Nppsxxbngh (U)Urine appearanceAbnormalClearHolmes County Joel Pomerene Memorial HospitalAspartate aminotransferase [Enzymatic activity/volume] in Serum or PlasmaOrdered By: Babar Singh on 75-20-8713HAF [Catalytic activity/Vol]Aspartate aminotransferase [Enzymatic activity/volume] in Serum or FovbrjCwom84-93CabjtpwsmHolmes County Joel Pomerene Memorial HospitalBacteria [Presence] in Urine by AutomatedOrdered By: PROVIDER TEMP on 21-48-5179Ubstkrav Auto Ql (U)Bacteria [Presence] in Urine by AutomatedNone SeenHolmes County Joel Pomerene Memorial HospitalBasophils Auto (Bld) [#/Vol]Ordered By: Babar Singh on 89-90-3135Noadgerut (Bld) [#/Vol]Automated basophil count0.0-0.2 [facility] HospitalBasophils/100 WBC Auto (Bld)Ordered By: Babar Singh on 33-47-1855Qppbnggkz/100 WBC (Bld)Automated basophil %.[facility] HospitalBilirubin Test strip Ql (U)Ordered By: PROVIDER TEMP on 65-69-9394Luanuoxin Ql (U)Bilirubin.total [Presence] in Urine by Test strip NegativeHolmes County Joel Pomerene Memorial HospitalBilirubin.total [Mass/volume] in Serum or PlasmaOrdered By: Babar Singh on 00-38-9334Rhkrmpqum [Mass/Vol] Bilirubin.total [Mass/volume] in Serum or Plasma0.3-1.0[facility] HospitalCalcium [Mass/volume] in Serum or PlasmaOrdered By: Babar Singh on 06-97-7109Vilenij [Mass/Vol]Calcium [Mass/volume] in Serum or Plasma8.6-10.3 [facility] HospitalCarbon dioxide, total [Moles/volume] in Serum or PlasmaOrdered By: Babar Singh on 21-73-2025IS2 [Moles/Vol]Carbon dioxide, total [Moles/volume] in Serum or Cmbhrn61.0-31.0[facility] HospitalChloride [Moles/volume] in Serum or PlasmaOrdered By: Baabr Singh on 06-49-5475Aswwcpgi [Moles/Vol]Chloride [Moles/volume] in Serum or Lpgyjo00-661 [facility] CenterColor Auto (U)Ordered By: PROVIDER TEMP on 16-83-4034Risqg (U)Color of Urine by AutoYellowHolmes County Joel Pomerene Memorial Hospital Complete Blood Count Auto Diffon 52-39-2302Ngnlyxuxi (Bld) [#/Vol]0.0 10*3/uL Normal0.0-0.2The [facility] Physician GroupComment on above:Result Comment: PERFORMED BY: [place] [address] PATHOLOGIST PLATEN DRIER OPERATOR RAFIA LOPEZ M.D.Performed By: #### CK, HS TROP, CBC, CMP #### [place] [address] USABasophils/100 WBC (Bld)0.3 %Normal.The [facility] Physician GroupComment on above:Performed By: #### CK, HS TROP, CBC, CMP #### [place] [address] USAEosinophils (Bld) [#/Vol]0.1 10*3/uLNormal0.0-0.45The [facility] Physician GroupComment on above:Performed By: #### CK, HS TROP, CBC, CMP #### [place] [address] USAEosinophils/100 WBC (Bld)1.4 %Normal.The [facility] Physician GroupComment on above:Performed By: #### CK, HS TROP, CBC, CMP #### [place] [address] USAErythrocyte distribution width (RBC) [Ratio]13.7 %Normal 11.9-15.3The [facility] Physician GroupComment on above:Performed By: #### CK, HS TROP, CBC, CMP #### [place] [address] USAHematocrit (Bld) [Volume fraction]41.7 %Ohsnbs37.0-46.4The [facility] Physician GroupComment on above:Performed By: #### CK, HS TROP, CBC, CMP #### [place] [address] USAHemoglobin (Bld) [Mass/Vol]14.0 g/kMAfholg34.8-15.4The [facility] Physician GroupComment on above:Performed By: #### CK, HS TROP, CBC, CMP #### [place] [address] USALymphocytes (Bld) [#/Vol]1.4 10*3/uLNormal1.00-4.8The [facility] Physician GroupComment on above:Performed By: #### CK, HS TROP, CBC, CMP #### [place] [address] USALymphocytes/100 WBC (Bld)15.4 %Normal.The [facility] Physician GroupComment on above:Performed By: #### CK, HS TROP, CBC, CMP #### [address]H (RBC) [Entitic mass]29.2 njRgbwjb03.7-34.3The [facility] Physician GroupComment on above:Performed By: #### CK, HS TROP, CBC, CMP #### [place] [address] USAMCV (RBC) [Entitic vol]87.0 rRXzmnns28-005Tnw [facility] Physician GroupComment on above:Performed By: #### CK, HS TROP, CBC, CMP #### [place] [address] USAMean Corpuscular HGB Conc33.6 g/kDSxurjb43.0-35.0The [facility] Physician GroupComment on above:Performed By: #### CK, HS TROP, CBC, CMP #### [place] [address] USAMonocytes (Bld) [#/Vol]0.4 10*3/uLNormal0.0-0.8The [facility] Physician GroupComment on above:Performed By: #### CK, HS TROP, CBC, CMP #### [place] [address] USAMonocytes/100 WBC (Bld)19.28 %Normal0.00-20.00The [facility] Physician GroupComment on above:Performed By: #### CK, HS TROP, CBC, CMP #### [facility] [address] [place] [address] USAMonocytes/100 WBC (Bld)4.5 %Normal.The [facility] Physician GroupComment on above:Performed By: #### CK, HS TROP, CBC, CMP #### [facility] [address] [place] [address] USANeutrophils (Bld) [#/Vol]7.3 10*3/uLNormal1.8-7.7The [facility] Physician GroupComment on above:Performed By: #### CK, HS TROP, CBC, CMP #### [place] [address] USANeutrophils/100 WBC (Bld)78.4 %Normal.The [facility] Physician GroupComment on above:Performed By: #### CK, HS TROP, CBC, CMP #### [place] [address] USANRBC%0.1 /100{WBC}Normal0-0.5The [facility] Physician Group Comment on above:Performed By: #### CK, HS TROP, CBC, CMP #### [place] [address] USAPlatelet mean volume (Bld) [Entitic vol]7.9 fLNormal 6.3-10.7The [facility] Physician GroupComment on above:Performed By: #### CK, HS TROP, CBC, CMP #### [facility] [address] [place] [address] USAPlatelets (Bld) [#/Vol]251 10*3/dKDtbjlx697-988Kbx [facility] Physician GroupComment on above:Performed By: #### CK, HS TROP, CBC, CMP #### [place] [address] USARBC (Bld) [#/Vol]4.79 10*6/uLNormal3.60-5.00The [facility] Physician GroupComment on above:Performed By: #### CK, HS TROP, CBC, CMP #### [facility] [address] [place] [address] USAWBC (Bld) [#/Vol]9.3 10*3/uLNormal3.8-11.6The [facility] Physician GroupComment on above:Performed By: #### CK, HS TROP, CBC, CMP #### [facility] [address] [place] [address] USAComprehensive Metabolic Panelon 77-53-1585Btsddjm [Mass/Vol]4.4 g/dLNormal3.5-5.7The [facility] Physician GroupComment on above: Performed By: #### CK, HS TROP, CBC, CMP #### [place] [address] USAAlbumin/Globulin [Mass ratio]1.5 {ratio}NormalThe [facility] Physician GroupComment on above:Performed By: #### CK, HS TROP, CBC, CMP #### [facility] [address] [place] [address] USAALP [Catalytic activity/Vol]87 U/HHozbgc95-941Vsw [facility] Physician GroupComment on above:Performed By: #### CK, HS TROP, CBC, CMP #### [facility] [address] [place] [address] USAALT [Catalytic activity/Vol]135 U/LHigh7-52The [facility] Physician GroupComment on above:Performed By: #### CK, HS TROP, CBC, CMP #### [facility] [address] [place] [address] USAAnion gap [Moles/Vol]12.0 mmol/LNormal6.0-15.0The [facility] Physician GroupComment on above:Performed By: #### CK, HS TROP, CBC, CMP #### [facility] [address] [place] [address] USAAST [Catalytic activity/Vol]80 U/HHohr35-59Dwc [facility] Physician GroupComment on above:Performed By: #### CK, HS TROP, CBC, CMP #### [facility] [address] [place] [address] USABilirubin [Mass/Vol]0.7 mg/dLNormal0.3-1.0The [facility] Physician GroupComment on above:Performed By: #### CK, HS TROP, CBC, CMP #### [place] [address] USACalcium [Mass/Vol]9.2 mg/dLNormal8.6-10.3The [facility] Physician GroupComment on above:Performed By: #### CK, HS TROP, CBC, CMP #### [place] [address] USAChloride [Moles/Vol]104 mmol/ECxetni74-167Ffw [facility] Physician GroupComment on above:Performed By: #### CK, HS TROP, CBC, CMP #### [place] [address] USACO2 [Moles/Vol]24.9 mmol/TRmtnxu17.0-31.0The [facility] Physician GroupComment on above:Performed By: #### CK, HS TROP, CBC, CMP #### [place] [address] USACreatinine [Mass/Vol]0.87 mg/dLNormal0.60-1.20The [facility] Physician GroupComment on above:Performed By: #### CK, HS TROP, CBC, CMP #### [place] [address] USACreatinine Clr Calc Soylhjgr39.38NormalThe [facility] Physician GroupComment on above:Result Comment: PERFORMED BY: [place] [address] PATHOLOGIST PLATEN DRIER OPERATOR RAFIA LOPEZ M.D.Performed By: #### CK, HS TROP, CBC, CMP #### [place] [address] USAGFR/1.73 sq M.predicted MDRD (S/P/Bld) [Vol rate/Area] mL/min/{1.73_m2}NormalThe [facility] Physician GroupComment on above:Performed By: #### CK, HS TROP, CBC, CMP #### [facility] [address] [place] [address] USAGlobulin (S) [Mass/Vol]3.0 g/dLNormalThe [facility] Physician GroupComment on above:Performed By: #### CK, HS TROP, CBC, CMP #### [facility] [address] [place] [address] USAGlucose [Mass/Vol]90 mg/cPKogbjh37-713Opz [facility] Physician GroupComment on above:Result Comment: Random Glucose Reference Range is dependent on time and content of last meal. Glucose of more than 200 mg/dL in a nonstressed, ambulatory subject supports the diagnosis of Diabetes Mellitus. ADA recommended reference rangePerformed By: #### CK, HS TROP, CBC, CMP #### [facility] [address] [place] [address] USAPotassium [Moles/Vol]3.9 mmol/LNormal3.5-5.1The [facility] Physician GroupComment on above:Performed By: #### CK, HS TROP, CBC, CMP #### [facility] [address] [place] [address] USAProtein [Mass/Vol]7.4 g/dLNormal6.4-8.9The [facility] Physician GroupComment on above:Performed By: #### CK, HS TROP, CBC, CMP #### [facility] [address] [place] [address] USASodium [Moles/Vol]137 mmol/FEmrsrg629-355Axa [facility] Physician GroupComment on above:Performed By: #### CK, HS TROP, CBC, CMP #### [facility] [address] [place] [address] USAUrea nitrogen [Mass/Vol]14 mg/dLNormal7-25The [facility] Physician GroupComment on above:Performed By: #### CK, HS TROP, CBC, CMP #### [facility] [address] [place] [address] USACreatine Kinaseon 86-98-7445EJ [Catalytic activity/Vol]51 U/KIsrvmw77-367Txz [facility] Physician GroupComment on above:Performed By: #### CK, HS TROP, CBC, CMP ####[facility] [address] [place] [address] USACreatine kinase [Enzymatic activity/volume] in Serum or PlasmaOrdered By: Babar Singh on 90-16-1397QB [Catalytic activity/Vol] Creatine kinase [Enzymatic activity/volume] in Serum or Bshtyw43-688IxbtijedhHolmes County Joel Pomerene Memorial HospitalCreatinine [Mass/volume] in Serum or PlasmaOrdered By: Babar Singh on 81-63-4793Lzycjmtwng [Mass/Vol]Creatinine [Mass/volume] in Serum or Plasma0.60-1.20[facility] HospitalDipstick and Microscopicon 76-07-2609Ezflgjmgha (U)CloudyCritically abnormalClearThe [facility] Physician GroupComment on above:Order Comment: Name Collection Type:: Clean-Voided MidstreamPerformed By: #### ADDONUAPLUS #### [facility] [address] [place] [address] USABacteria,UrineRareNormalNone SeenThe [facility] Physician GroupComment on above:Order Comment: Name Collection Type:: Clean-Voided MidstreamPerformed By: #### ADDONUAPLUS #### [facility] [address] [place] [address] USABilirubin,UrineNegativeNormalNegativeBaptist Health [facility] West Physician GroupComment on above:Order Comment: Name Collection Type:: Clean- Voided MidstreamPerformed By: #### ADDONUAPLUS #### [facility] [address] [place] [id number] USAColor (U)YellowNormalYellowThe [facility] Physician Group Comment on above:Order Comment: Name Collection Type:: Clean-Voided Midstream Performed By: #### ADDONUAPLUS #### [facility] [address] [place] [id number] USAGlucose Ql (U)NormalNormalNormOhioHealth Berger Hospitale [facility] Physician GroupComment on above:Order Comment: Name Collection Type:: Clean-Voided MidstreamPerformed By: #### ADDONUAPLUS #### [facility] [address] [place] [address] USAHyaline Casts,UrineNoneNormal0-8The [facility] Physician GroupComment on above:Order Comment: Name Collection Type:: Clean-Voided MidstreamPerformed By: #### ADDONUAPLUS #### [address] [address] USAKetones Ql (U)1+HighNegativeThe [facility] Physician Group Comment on above:Order Comment: Name Collection Type:: Clean-Voided Midstream Performed By: #### ADDONUAPLUS #### [address] [address] USALeukocyte esterase Test strip Ql (U)3+HighNegativeThe [facility] Physician GroupComment on above:Order Comment: Name Collection Type:: Clean-Voided MidstreamPerformed By: #### ADDONUAPLUS #### [place] [address] USAMucus,Urine2+Critically abnormalThe [facility] Physician GroupComment on above:Order Comment: Name Collection Type:: Clean-Voided MidstreamResult Comment: PERFORMED BY: [place] [address] PATHOLOGIST PLATEN DRIER OPERATOR RAFIA LOPEZ M.D.Performed By: #### ADDONUAPLUS #### [place] [address] USANitrite,UrineNegativeNormalNegativeThe [facility] Physician GroupComment on above:Order Comment: Name Collection Type:: Clean-Voided MidstreamPerformed By: #### ADDONUAPLUS #### [address] [address] USAOccult Blood,UrineNegativeNormalNegativeThe [facility] Physician GroupComment on above:Order Comment: Name Collection Type:: Clean- Voided MidstreamResult Comment: PERFORMED BY: [place] [address] PATHOLOGIST PLATEN DRIER OPERATOR RAFIA LOPEZ M.D.Performed By: #### ADDONUAPLUS #### [place] [address] USApH (U)5.5 [pH]Normal5.0-9.0The [facility] Physician Group Comment on above:Order Comment: Name Collection Type:: Clean-Voided Midstream Performed By: #### ADDONUAPLUS #### [place] [address] USAProtein,UrineTraceHighNegativeThe [facility] Physician GroupComment on above:Order Comment: Name Collection Type:: Clean-Voided MidstreamPerformed By: #### ADDONUAPLUS #### [place] [address] USARBC,Urine5 [HPF]High0-4The [facility] Physician Group Comment on above:Order Comment: Name Collection Type:: Clean-Voided Midstream Performed By: #### ADDONUAPLUS #### [place] [address] USASpecificy [place],Urine1.936Hnlncr2.001-1.030The [facility] Physician GroupComment on above:Order Comment: Name Collection Type:: Clean- Voided MidstreamPerformed By: #### ADDONUAPLUS #### [place] [address] USASquamous Epithelial Cell,Urine10 [HPF]High0-2The [facility] Physician GroupComment on above:Order Comment: Name Collection Type:: Clean- Voided MidstreamPerformed By: #### ADDONUAPLUS #### [place] [address] USAUrobilinogen,UrineNormalNormalNormalThe [facility] Physician GroupComment on above:Order Comment: Name Collection Type:: Clean- Voided MidstreamPerformed By: #### ADDONUAPLUS #### [place] [address] USAWBC,Urine3 [HPF]Normal0-4The [facility] Physician Group Comment on above:Order Comment: Name Collection Type:: Clean-Voided Midstream Performed By: #### ADDONUAPLUS #### [address] [address] USAECG 12 lead ECGon 51-35-9273POJ 12 lead ECGSELECT MEDICAL [facility] [address] [place] [address] [place] [address] Electrocardiograph Report Signed Patient: Brittanie Garcia MR#: [id number] : 1985 Acct:[id number] Age/Sex: 39 / F ADM Date: 06/19/24 Loc: ER Room: Type: [facility] ER Attending Dr: Ordering Provider: Babar [...] was found Confirmed by LIAM RANDLE DO ([id number]) on 06/19/2024 7:59:22 PM Referred By: Electronically Signed By: LIAM RANDLE DO Transcribed By: MUS Signed By Liam Randle DO 06/[address] [place] [address] Physician GroupEosinophils Auto (Bld) [#/Vol]Ordered By: Babar Singh on 30-18-2285Hpoekiusqeh (Bld) [#/Vol]Automated eosinophil count0.0-0.45[facility] HospitalEosinophils/100 WBC Auto (Bld) Ordered By: Babar Singh on 11-49-7463Qdrozugqumr/100 WBC (Bld)Automated eosinophil %.[facility] HospitalEpithelial cells.squamous [#/area] in Urine sediment by Automated countOrdered By: NOLVIA SINGH on 06-19-2024 Epithelial cells.squamous Auto (Urine sed) [#/Area]Epithelial cells.squamous [#/area] in Urine sediment by Automated countHigh02FMercy Health – The Jewish HospitalErythrocyte distribution width Auto (RBC) [Ratio]Ordered By: Babar Singh on 29-43-8866Czpjgmjqfap distribution width (RBC) [Ratio]Erythrocyte distribution width [Ratio] by Automated count11.9-15.3FMercy Health – The Jewish HospitalErythrocytes [#/area] in Urine sediment by Automated countOrdered By: PROVIDER SAMANTHA on 38-47-7811LLV Auto (Urine sed) [#/Area]Erythrocytes [#/area] in Urine sediment by Automated countHigh0-4FMercy Health – The Jewish Hospital Globulin Calc (S) [Mass/Vol]Ordered By: Babar Singh on 97-20-9677Iaqywles (S) [Mass/Vol]Serum globulin measurement by calculation (mass/volume)[facility] HospitalGlucose Glucometer (BldC) [Mass/Vol]Ordered By: PROVIDER TEMP on 20-64-0395Slkvpae [Mass/Vol]Capillary blood glucose measurement by glucometer (mass/volume)[facility] HospitalComment on above:Random Glucose Reference Range is dependent on time and content of last meal. Glucose of more than 200 mg/dL in a nonstressed, ambulatory subject supports the diagnosis of Diabetes Mellitus.Glucose Poct Glucometerson 82-53-6989Ngrqsjt1 NormalThe [facility] Physician GroupComment on above:Result Comment: Glu2: WILL NOTIFY DR/DONNAerformed By: #### GLULS #### Point of Care testing ,Kgldbeo4Wjhlbbg MeterNoChildren's Hospital for RehabilitationComment on above:Result Comment: PERFORMED BY: [facility] [address] [place] [address] PATHOLOGIST PLATEN DRIER OPERATOR RAFIA LOPEZ M.D.Performed By: #### GLULS #### Point of Care testing ,Glucose [Mass/Vol]120 mg/dLJupiter Medical Center Physician [facility]aw Health CenterComment on above: Result Comment: Random Glucose Reference Range is dependent on time and content of last meal. Glucose of more than 200 mg/dL in a nonstressed, ambulatory subject supports the diagnosis of Diabetes Mellitus.Performed By: #### GLULS #### Point of Care testing ,Glucose [Mass/volume] in Serum or PlasmaOrdered By: Babar Singh on 06-19-2024 Glucose [Mass/Vol]Glucose [Mass/volume] in Serum or Bqjxai27-782JomsibsamHolmes County Joel Pomerene Memorial HospitalComment on above:ADA recommended reference rangeRandom Glucose Reference Range is dependent on time and content of last meal. Glucose of more than 200 mg/dL in a nonstressed, ambulatory subject supports the diagnosisof Diabetes Mellitus.Glucose [Mass/volume] in Urine by Test strip Ordered By: NOLVIA SINGH on 76-52-2331Dfdewgw Test strip (U) [Mass/Vol]Glucose [Mass/volume] in Urine by Test stripNormUniversity Hospitals Ahuja [facility] Center Hematocrit Auto (Bld) [Volume fraction]Ordered By: Babar Singh on 06-19-2024 Hematocrit (Bld) [Volume fraction]Hematocrit [Volume Fraction] of Blood by Automated count34.0-46.4FMercy Health – The Jewish HospitalHemoglobin Test strip Ql (U)Ordered By: NOLVIA SINGH on 11-19-2744Hhbbvagoao Ql (U)Hemoglobin [Presence] in Urine by Test stripJoint Township District Memorial Hospital Hemoglobin [Mass/volume] in BloodOrdered By: Babar Singh on 06-19-2024 Hemoglobin (Bld) [Mass/Vol]Hemoglobin [Mass/volume] in Blood11.8-15.4FMercy Health – The Jewish HospitalHyaline casts [#/area] in Urine sediment by Automated countOrdered By: NOLVIA SINGH on 85-12-4607Jdkpflo casts Auto (Urine sed) [#/Area]Hyaline casts [#/area] in Urine sediment by Automated count0-8[facility] HospitalKetones Test strip Ql (U)Ordered By: NOLVIA SINGH on 03-05-1029Agzdsdr Ql (U)Ketones [Presence] in Urine by Test stripOhioHealth Grant Medical CenterLeukocyte esterase [Presence] in Urine by Test stripOrdered By: PROVIDER SAMANTHA on 87-11-8883Zsthsdgpl esterase Test strip Ql (U) Leukocyte esterase [Presence] in Urine by Test stripLakeHealth TriPoint Medical CenterLeukocytes [#/area] in Urine sediment by Automated count Ordered By: NOLVIA SINGH on 42-35-3093XRT Auto (Urine sed) [#/Area]Leukocytes [#/area] in Urine sediment by Automated count077 Allen StreetLeukocytes [#/volume] corrected for nucleated erythrocytes in Blood by Automated counOrdered By: Babar Singh on 03-01-8057HXM corrected for nucl RBC Auto (Bld) [#/Vol]Leukocytes [#/volume] corrected for nucleated erythrocytes in Blood by Automated coun3.8-11.6FMercy Health – The Jewish HospitalLymphocytes Auto (Bld) [#/Vol]Ordered By: Babar Singh on 84-14-8480Xvuwngtjzmw (Bld) [#/Vol] Lymphocytes [#/volume] in Blood by Automated count1.00-4.8[facility] HospitalLymphocytes/100 WBC Auto (Bld)Ordered By: Babar Singh on 47-41-9625Hdlcffvbold/100 WBC (Bld)Lymphocytes/100 leukocytes in Blood by Automated count.[facility] Medical CenterH Auto (RBC) [Entitic mass] Ordered By: Babar Singh on 77-12-7558DSK (RBC) [Entitic mass]MCH [Entitic mass] by Automated count24.7-34.3FMercy Health – The Jewish HospitalMCHC Auto (RBC) [Mass/Vol]Ordered By: Babar Singh on 29-93-5881BOFT (RBC) [Mass/Vol]MCHC [Mass/volume] by Automated count32.0-35.0[facility] HospitalMCV Auto (RBC) [Entitic vol]Ordered By: Babar Singh on 31-24-3810SKH (RBC) [Entitic vol]MCV [Entitic volume] by Automated xnubg97-358IgazupzmsHolmes County Joel Pomerene Memorial HospitalMonocyte distribution width [Entitic volume] in Blood by AutomatedOrdered By: Babar Singh on 60-64-7974Wyayhumm distribution width Auto (Bld) [Entitic vol]Monocyte distribution width [Entitic volume] in Blood by Automated0.00-20.00 [facility] HospitalMonocytes Auto (Bld) [#/Vol]Ordered By: Babar Singh on 24-26-3540Fvaiffzfk (Bld) [#/Vol]Automated blood monocyte count0.0-0.8 [facility] HospitalMonocytes/100 WBC Auto (Bld)Ordered By: Babar Singh on 77-03-7583Ogeazpczu/100 WBC (Bld)Automated monocyte %.[facility] HospitalMucus [Presence] in Urine by AutomatedOrdered By: NOLVIA SINGH on 96-64-9762Dghoy Auto Ql (U)Mucus [Presence] in Urine by AutomatedAbnormalHolmes County Joel Pomerene Memorial HospitalNeutrophils Auto (Bld) [#/Vol] Ordered By: Babar Singh on 75-47-1036Cxytruejtqe (Bld) [#/Vol]Neutrophils [#/volume] in Blood by Automated count1.8-7.7FMercy Health – The Jewish Hospital Neutrophils/100 WBC Auto (Bld)Ordered By: Babar Singh on 06-19-2024 Neutrophils/100 WBC (Bld)Automated neutrophil %.[facility] HospitalNitrite Test strip Ql (U)Ordered By: PROVIDER TEMP on 75-19-2480Yqnkyqw Ql (U)Nitrite [Presence] in Urine by Test stripNegativeHolmes County Joel Pomerene Memorial HospitalNo Panel InformationOrdered By: Babar Singh on 80-63-2182Bkalvayye GFR (CKD-EPI)> 60.0 mL/MinHolmes County Joel Pomerene Memorial HospitalPharmacy Creatinine Clearance (Chem83.38[facility] HospitalNo Panel InformationOrdered By: PROVIDER TEM on 73-35-7898Hfionhs Glucose #2 CommentCleaned meterHolmes County Joel Pomerene Memorial HospitalBedside Glucose CommentSee commentHolmes County Joel Pomerene Memorial HospitalComment on above:Glu2: WILL NOTIFY DR/RNNucleated erythrocytes [Presence] in Blood by Automated countOrdered By: Babar Singh on 06-19-2024 Nucleated RBC Auto Ql (Bld)Nucleated erythrocytes [Presence] in Blood by Automated count0-0.5FMercy Health – The Jewish HospitalPlatelet mean volume Auto (Bld) [Entitic vol]Ordered By: Babar Singh on 15-72-3753Bsdyxatk mean volume (Bld) [Entitic vol]Platelet mean volume [Entitic volume] in Blood by Automated count6.3-10.7FMercy Health – The Jewish HospitalPlatelets Auto (Bld) [#/Vol] Ordered By: Babar Singh on 66-93-4131Wfojbrswz (Bld) [#/Vol]Platelets [#/volume] in Blood by Automated ozrwf935-171SlrmesdtwHolmes County Joel Pomerene Memorial Hospital Potassium [Moles/volume] in Serum or PlasmaOrdered By: Babar Singh on 45-91-7997Inpkfdskr [Moles/Vol]Potassium [Moles/volume] in Serum or Plasma 3.5-5.1FMercy Health – The Jewish HospitalProtein Test strip (U) [Mass/Vol]Ordered By: PROVIDER SAMNATHA on 17-81-2727Fhpflff (U) [Mass/Vol]Protein [Mass/volume] in Urine by Test stripHighNegativeHolmes County Joel Pomerene Memorial HospitalProtein [Mass/volume] in Serum or PlasmaOrdered By: Babar Singh on 66-99-6280Ytoktqq [Mass/Vol]Protein [Mass/volume] in Serum or Plasma6.4-8.9[facility] HospitalRBC Auto (Bld) [#/Vol]Ordered By: Babar Singh on 50-15-5904LRQ (Bld) [#/Vol]Erythrocytes [#/volume] in Blood by Automated count3.60-5.00 Premier Healtherum or plasma albumin/globulin mass ratio Ordered By: Babar Singh on 03-41-4597Truwzsc/Globulin [Mass ratio]Serum or plasma albumin/globulin mass ratioPremier Healtherum or plasma anion gap determinationOrdered By: Babar Singh on 02-74-6300Zsnep gap [Moles/Vol]Serum or plasma anion gap determination6.0-15.0Premier Healthodium [Moles/volume] in Serum or PlasmaOrdered By: Babar Singh on 64-22-8395Kexszb [Moles/Vol]Sodium [Moles/volume] in Serum or Qilrlj216-720 Premier Healthpecific gravity Test strip (U) [Rel density] Ordered By: PROVIDER SAMANTHA on 07-50-0778Bgtusunq gravity (U) [Rel density] Specific gravity of Urine by Test strip1.001-1.030[facility] HospitalTroponin I High Sensitivityon 24-76-5664Zkvexnvh I High Sensitivity<3 Normal0-15The [facility] Physician GroupComment on above:Result Comment: The Troponin units of report have been changed to meet the Chest Pain Accreditation requirement, element EC5.M1l2. Troponin units are changed from pg/ml to ng/L. Also, the decimal is removed and results are in whole numbers. PERFORMED BY: [address] [place] [address] PATHOLOGIST PLATEN DRIER OPERATOR RAFIA LOPEZ M.D.Performed By: #### CK, HS TROP, CBC, CMP ####[facility] [id number] [facility] Troponin I.cardiac [Mass/volume] in Serum or Plasma by Detection limit <= 0.01 ng/Ordered By: Babar Singh on 60-98-2716Nbaoeawx I.cardiac DL <= 0.01 ng/mL [Mass/Vol]Troponin I.cardiac [Mass/volume] in Serum or Plasma by Detection limit <= 0.01 ng/0-15[facility] HospitalComment on above:The Troponin units of report have been changed to meet the Chest Pain Accreditation requirement, element EC5.M1l2. Troponin units are changed from pg/ml to ng/L. Also, the decimal is removed and results are in whole numbers.Urea nitrogen [Mass/volume] in Serum or PlasmaOrdered By: Babar Singh on 59-78-8914Vphy nitrogen [Mass/Vol]Urea nitrogen [Mass/volume] in Serum or Plasma7[facility] Memorial HospitalUrobilinogen Test strip (U) [Mass/Vol]Ordered By: NOLVIA SINGH on 64-98-3123Jfiloyrfnbmu (U) [Mass/Vol]Urobilinogen [Mass/volume] in Urine by Test stripNormUniversity Hospitals Ahuja Medical CenterWBC Auto (Bld) [#/Vol]Ordered By: Babar Singh on 82-31-0791LAV (Bld) [#/Vol]Leukocytes [#/volume] in Blood by Automated count3.8-11.6FMercy Health – The Jewish Hospital pH Test strip (U)Ordered By: PROVIDER SAMANTHA on 56-27-9036gC (U)pH of Urine by Test strip5.0-9.0[facility] Memorial HospitalLon 06-17-2024L Specimen: [id number] Received: 06/17/24 Status: MG Clemente Num: [id number] Spec Type: Surgical Subm Dr: Dano Pyle DO Tissues: A Breast Lumpectmy/Mass - Requiring Micros Eval of Margins (RT BREAST MASS @ 1 B Breast Lumpectmy/Mass - Requiring Micros Eval of Margins (RT BREAST MASS @ 7 Procedures: , Gross/Micro L5/2 Age/ Patient Sex Location Account Attending Physician Brittanie Garcia 39/F [place] [id number] Dano Pyle DO SPEC NUM: [id number] RECD: 06/17/24 STATUS: MG CLEMENTE NUM: [id number] TACOS: 06/17/[address] [facility] [address]: Dano Pyle DO ENTERED: 06/17/24 KAMARI CARBALLO: SPEC TYPE: Surgical DEPT: S ENTERED BY: [id number] RECV BY: [id number] ORDERED: , Gross/Micro L5/2 ORDERED: , Gross/Micro [...] [id number] Received: 06/17/24 Status: MG Clemente Num: [id number] Spec Type: Surgical Subm Dr: Dano Pyle, DO Tissues: A Breast Lumpectmy/Mass - Requiring Micros Eval of Margins (RT BREAST MASS @ 1 B Breast Lumpectmy/Mass - Requiring Micros Eval of Margins (RT BREAST MASS @ 7 Procedures: , Gross/Micro L5/2 Patient: Brittanie Garcia [id number] (Continued) Specimen: [id number] Received: 06/17/24 (Continued) Signed (signature on file) Dany Fonseca MD 06/18/24 1427 Specimen: [id number] Received: 06/17/24 Status: MG Clemente Num: [id number] Spec Type: Surgical Subm Dr: Dano Pyle, DO Tissues: A Breast Lumpectmy/Mass - Requiring Micros Eval of Margins (RT BREAST MASS @ 1 B Breast Lumpectmy/Mass - Requiring Micros Eval of Margins (RT BREAST MASS @ 7 Procedures: , Gross/Micro L5/2 Patient: Brittanie Garcia [id number] (Continued) Specimen: [id number] Received: 06/17/24 (Continued) Clinical Information RT breast [...] Total fixation time: 8 hours (8, ns, S28-534 A)JG Part B is received in formalin labeled with the patients name, date of , and mass at (more content not included)...NormalThe [facility] Physician GroupCalcium [Mass/volume] in Serum or PlasmaOrdered By: Dano Pyle on 05-01-2023 Calcium [Mass/Vol]9.7 mg/dL8.6-10.3FMercy Health – The Jewish HospitalCarbon dioxide, total [Moles/volume] in Serum or PlasmaOrdered By: Dano Pyle on 47-00-0736XM3 [Moles/Vol]28.9 mmol/L21.0-31.0[facility] Chloride [Moles/volume] in Serum or PlasmaOrdered By: Dano Pyle on 25-18-0352Lcungkjl [Moles/Vol]105 mmol/J79-593UtanooravHolmes County Joel Pomerene Memorial Hospital Creatinine [Mass/volume] in Serum or PlasmaOrdered By: Dano Pyle on 44-42-9663Rsnpimqmbj [Mass/Vol]0.75 mg/dL0.60-1.20[facility] HospitalGlucose [Mass/volume] in Serum or PlasmaOrdered By: Dano Pyle on 07-57-3994Ggdzbbn [Mass/Vol]84 mg/qC30-304NvkcsofatHolmes County Joel Pomerene Memorial Hospital Comment on above:ADA recommended reference rangeRandom Glucose Reference Range is dependent on time and content of last meal. Glucose of more than 200 mg/dL in a nonstressed, ambulatory subject supports the diagnosisof Diabetes Mellitus.No Panel InformationOrdered By: Dano Pyle on 38-41-6132Bzdaenrmk GFR (CKD-EPI)> 60.0 mL/MinHolmes County Joel Pomerene Memorial HospitalPharmacy Creatinine Clearance (ChemN/[facility] HospitalPotassium [Moles/volume] in Serum or PlasmaOrdered By: Dano Pyle on 86-03-6608Xmtzqxnfe [Moles/Vol] 4.3 mmol/L3.5-5.1FGalion Hospitalerum or plasma anion gap determinationOrdered By: Dano Pyle on 32-28-3908Kumyw gap [Moles/Vol]9.4 mmol/L6.0-15.0Premier Healthodium [Moles/volume] in Serum or PlasmaOrdered By: Dano Pyle on 81-88-7851Mrstre [Moles/Vol]139 mmol/L 136-145[facility] HospitalUrea nitrogen [Mass/volume] in Serum or PlasmaOrdered By: Dano Pyle on 19-37-1150Szgz nitrogen [Mass/Vol]14 mg/dL7-25[facility] HospitalBasophils Auto (Bld) [#/Vol]Ordered By: Robert Menchaca on 61-35-0556Trcjnhyyt (Bld) [#/Vol]0.0 10*3/uL0.0-0.2FMercy Health – The Jewish HospitalBasophils/100 WBC Auto (Bld)Ordered By: Robert Menchaca on 08-76-1654Tomqyfvfp/100 WBC (Bld)0.4 %.[facility] Eosinophils Auto (Bld) [#/Vol]Ordered By: Robert Menchaca on 22-20-6915Vhjphvupnei (Bld) [#/Vol]0.1 10*3/uL0.0-0.45[facility] HospitalEosinophils/100 WBC Auto (Bld)Ordered By: Robert Menchaca on 91-52-3188Khlhsfnezmp/100 WBC (Bld) 1.2 %.[facility] HospitalErythrocyte distribution width Auto (RBC) [Ratio]Ordered By: Robert Menchaca on 40-15-9577Hquolwnxkxn distribution width (RBC) [Ratio]13.4 %11.9-15.3FMercy Health – The Jewish HospitalFerritin [Mass/volume] in Serum or PlasmaOrdered By: Robert Menchaca on 54-74-4956Lfrowjgt [Mass/Vol]110.5 ng/mL11.0-306.8[facility] HospitalHematocrit Auto (Bld) [Volume fraction]Ordered By: Robert Menchaca on 52-26-7763Nynbyxhxnd (Bld) [Volume fraction]42.6 %34.0-46.4FMercy Health – The Jewish HospitalHemoglobin [Mass/volume] in BloodOrdered By: Robert Menchaca on 74-26-9689Wquwrpcpke (Bld) [Mass/Vol]14.2 g/dL11.8-15.4FMercy Health – The Jewish HospitalLeukocytes [#/volume] corrected for nucleated erythrocytes in Blood by Automated coun Ordered By: Robert Menchaca on 43-08-9692VMW corrected for nucl RBC Auto (Bld) [#/Vol]7.0 10*3/uL3.8-11.6FMercy Health – The Jewish HospitalLymphocytes Auto (Bld) [#/Vol]Ordered By: Robert Menchaca on 54-51-4498Arwylzlommc (Bld) [#/Vol]2.5 10*3/uL1.00-4.8[facility] HospitalLymphocytes/100 WBC Auto (Bld) Ordered By: Robert Menchaca on 79-89-4267Vxyvvfkblds/100 WBC (Bld)35.4 %.[facility] CenterH Auto (RBC) [Entitic mass]Ordered By: Robert Menchaca on 00-77-6267RHJ (RBC) [Entitic mass]28.7 pg24.7-34.3FMercy Health – The Jewish HospitalMCHC Auto (RBC) [Mass/Vol]Ordered By: Robert Menchaca on 46-60-9439NHXJ (RBC) [Mass/Vol]33.3 g/dL32.0-35.0[facility] HospitalMCV Auto (RBC) [Entitic vol]Ordered By: Robert Menchaca on 22-32-0667USI (RBC) [Entitic vol]86.2 eY19-473FxcnntztyHolmes County Joel Pomerene Memorial HospitalMonocytes Auto (Bld) [#/Vol]Ordered By: Robert Menchaca on 66-18-1864Dfpoepaby (Bld) [#/Vol]0.5 10*3/uL0.0-0.8[facility] HospitalMonocytes/100 WBC Auto (Bld)Ordered By: Robert Menchaca on 83-51-5460Nnkmqqfby/100 WBC (Bld)6.5 %.[facility] Neutrophils Auto (Bld) [#/Vol]Ordered By: Robert Menchaca on 32-41-9753Myzhyafwuml (Bld) [#/Vol]4.0 10*3/uL1.8-7.7FMercy Health – The Jewish HospitalNeutrophils/100 WBC Auto (Bld)Ordered By: Robert Menchaca on 24-75-2579Hyqobwwvlke/100 WBC (Bld) 56.5 %.[facility] HospitalNucleated erythrocytes [Presence] in Blood by Automated countOrdered By: Robert Menchaca on 92-60-7321Tvnctohhv RBC Auto Ql (Bld)0.1 /100{WBC}0-0.5FMercy Health – The Jewish HospitalPlatelet mean volume Auto (Bld) [Entitic vol]Ordered By: Robert Menchaca on 76-28-9759Ytnrtbrk mean volume (Bld) [Entitic vol]8.3 fL6.3-10.7FMercy Health – The Jewish Hospital Platelets Auto (Bld) [#/Vol]Ordered By: Robert Menchaca on 96-49-7973Hdtymuzel (Bld) [#/Vol]223 10*3/eD730-680WxzwbamelHolmes County Joel Pomerene Memorial HospitalRBC Auto (Bld) [#/Vol]Ordered By: Robert Menchaca on 42-64-3158LGM (Bld) [#/Vol]4.94 10*6/uL 3.60-5.00[facility] HospitalWBC Auto (Bld) [#/Vol]Ordered By: Robert Menchaca on 84-94-4693LWI (Bld) [#/Vol]7.0 10*3/uL3.8-11.6FMercy Health – The Jewish HospitalEchocardiogramon 56-37-1956UwhbivivyqdagfgfAl[address], [address] [place] [address] TRANSTHORACIC ECHOCARDIOGRAM REPORT Patient Name: BRITTANIE Zoe Rudd Physician: [id number] Saeed GARCIA MD Study Date: 12/28/2022 Referring SORAYA CAGE Physician: MRN/PID: [id number] PCP: Filiberto Ying Accession/Order#: [id number] [facility] Location: [place] Date of : 1985 Fellow: Gender: F Nurse: Admit Date: Nurses Medical Assistants Phlebotomists: Lanny Padron [facility], T Height: 157.48 cm CC Report to: Weight: 74.84 kg Study Type: Echocardiogram BSA: 1.76 m2 Blood Pressure: 106 /70 mmHg Diagnosis/ICD: R00.0-Tachycardia, unspecified; D14-Cmdjnzc Indication: Hyperlipidemia, Overweight Procedure/CPT: Echo Complete w Full Doppler-[id number] Study Detail: The following Echo studies were [...] slightly enlarged. There is normal right ventricular globalsystolic function. Right Atrium: The right atrium is [...] 0.8 m/s (0.6-0.9m/s) PV Max P.4 mmHg [id number] Saeed Parada MD Electronically signed on 01/01/2023 at 2:35:16 PM Final [facility] HospitalOffice Visit (Cardiology)on 81-09-9374Wdvmuy-up visitDiagnoses/Problems Assessed Sinus tachycardia (427.89) (R00.0) Vasovagal near [...] result(s) with the patient: ECG, Holter monitor andTilt table Chief Complaint [facility] Adult Risk Screening Initial [...] and tilt table te (more content not included)...NormalUH TouchworksOffice Visit (Cardiology)on 11-91-9519Xvlmrv-up visitDiagnoses/Problems Assessed Vasovagal near syncope (780.2) (R55) Hyperlipidemia [...] with Dr. Cage). Otherwise she can follow-up withme as needed I have nothing further to [...] Signs Recorded: 10Nov2022 09:01AMRecorded: 10Nov2022 08:58AM Systolic Tvyccei64, LUE, Sitting Diastolic Tayzexa87, LUE, Sitting Systolic Ivmopipw751, LUE, Standing Diastolic Wtweplfs32, LUE, Standing Heart Rate92, L Radial Wplhwtpr29, LUE, Sitting Ikvflqeoi33, LUE, Sitting Height5 ft 2 in Yckual678 lb BMI Nrgjhciiof30.63 kg/m2 BSA Calculated1.75 Tobacco Useb) No Falls [...] DO; Nov 10 2022 11:29AM EST (Author) NormalUH TouchworksNo Panel Informationon 59-22-2389TGLocated within [facility] [facility] DO Work Phone: Cardiovasc Arrhythmia Resultson 90-56-5827Oyzgrzkcum Arrhythmia ResultsReason For Visit Event Monitor: BRITTANIE is here for the application of a 30 day event monitor in office., Diagnosis: Syncope,Fainting Ordering Physician: Dr. Saeed Castellanos DO Enrollment sent to: [employer] Monitor number [id number] applied. Holter monitor printed and placed on [...] Rhythm noted during that event was sinus tachycardiarate 109 bpm. Correlation is suggested. Future Appointments Date/TimeProviderSpecialtySite 11/10/2022 08:50 Saeed Ahumada, YCXtntvbgpat[address] [place] [address] DO 11/14/2022 04:20 Soraya Cage MDCardiology[address] [place] [address] DO Signatures Electronically signed by : Saeed Parada MD; Nov 02 2022 9:05AM EST (Author) [facility] TouchworksOffice Visit (Cardiology)on 01-78-6822Ywuacd-up visit Diagnoses/Problems Assessed Vasovagal near syncope (780.2) [...] passing out very briefly. Similar to 2014 thissounds like classic vasovagal syncope. She has not seen cardiology since 2013. She has no stressorsin her life at this point time, she [...] no rebound tachycardia. Recommendations, obtain [facility] monitoring, tilt table test, refer [...] negative for complaint. Vitals Vital Signs Recorded: 45Xse1510 10:01AMRecorded: 74Wtp9639 09:59AM Systolic Atvrh964 Diastolic Lying88 Systolic Swgzuid404 Diastolic Vclgtsk83 Systolic Imqekmhd622 Diastolic Khisxkia45 Heart Rate85, Apical Nkpmclvv272, LUE, Supine Vdiuhcavh34, LUE, Supine Height5 ft 2 in Fwbops150 lb BMI Hcgrrjhpej04.36 kg/m2 BSA Calculated1.77 Tobacco Useb) No PHQ-2 #1. Ov (more content not included)...NormalUH TouchworksTobacco Screening. on 96-91-6431Nswcm depression screening assessmentRhode Island [facility]opathic [facility] [facility] DO Work Phone: Tobacco use status CPHSb) NoMP-[facility] [place] [facility] DO Work Phone: ANA BY IFA WITH REFLEXon 70-90-1073Hkvolwu Ab IF (S) [Titer]NegativeNegativeGreen Cross HospitalCCP ANTIBODY IGGon 17-79-5419Rvaspv citrullinated peptide IgG Qn<[address] HospitalCyclic citrullinated peptide IgG Qnon 64-18-0216AGK Antibody IgG QualitativeNegativeNegativeGalion Hospital-REACTIVE PROTEIN (CRP)on 68-15-1830XTS [Mass/Vol]<0.9 mg/dLPeoples HospitalC W Auto Differential panel (Bld)on 96-85-5878Fucyivfhe (Bld) [#/Vol] 0.03 10*3/uL<0.11 k/uLGreen Cross HospitalBasophils/100 WBC (Bld)0.4 %Green Cross HospitalDifferential cell count method Nom (Bld)AutoCleveland ClinicEosinophils (Bld) [#/Vol]0.07 10*3/uL<0.46 k/uLGreen Cross HospitalEosinophils/100 WBC (Bld)0.9 %Green Cross HospitalErythrocyte distribution width (RBC) [Ratio]13.0 %11.5 - 15.0 % Green Cross HospitalHematocrit (Bld) [Volume fraction]44.1 %36.0 - 46.0 %Green Cross HospitalHemoglobin (Bld) [Mass/Vol]14.3 g/dL11.5 - 15.5 g/dLGreen Cross Hospital Immature granulocytes (Bld) [#/Vol]<0.10 k/uLGreen Cross HospitalImmature granulocytes/100 WBC (Bld)0.3 %[facility] Cross HospitalLymphocytes (Bld) [#/Vol]2.43 10*3/uL1.00 - 4.00 k/uLGreen Cross HospitalLymphocytes/100 WBC (Bld)30.5 %Doctors HospitalH (RBC) [Entitic mass]29.0 pg26.0 - 34.0 pgCleveland Tracy Medical CenterHC (RBC) [Mass/Vol]32.4 g/dL30.5 - 36.0 g/dLGreen Cross HospitalMCV (RBC) [Entitic vol]89.5 fL80.0 - 100.0 fLCleveland ClinicMonocytes (Bld) [#/Vol]0.49 10*3/uL<0.87 k/uL [place] ClinicMonocytes/100 WBC (Bld)6.1 %Green Cross HospitalNeutrophils (Bld) [#/Vol]4.93 10*3/uL1.45 - 7.50 k/uLGreen Cross HospitalNeutrophils/100 WBC (Bld)61.8 %[facility] Cross HospitalNucleated RBC (Bld) [#/Vol]<0.01 k/uLGreen Cross HospitalNucleated RBC/100 WBC (Bld) [Ratio]0.0 /100 WBCGreen Cross HospitalPlatelet mean volume (Bld) [Entitic vol]10.1 fL9.0 - 12.7 fLClevelformerly [facility] ClinicPlatelets (Bld) [#/Vol]251 10*3/uL150 - 400 k/uLGreen Cross HospitalRBC (Bld) [#/Vol]4.93 10*6/uL3.90 - 5.20 m/uLGreen Cross HospitalWBC (Bld) [#/Vol]7.97 10*3/uL3.70 - 11.00 k/uLGreen Cross HospitalComprehensive metabolic 2000 panelon 92-35-3939Lcsoexe [Mass/Vol]4.7 g/dL 3.9 - 4.9 g/dLNorth Chelmsford ClinicALP [Catalytic activity/Vol]86 U/L34 - 123 U/L [facility] [place] ClinicALT [Catalytic activity/Vol]58 U/LHigh7 - 38 U/LCleveland Clinic Anion gap [Moles/Vol]12 mmol/L9 - 18 mmol/LCleveland ClinicAST [Catalytic activity/Vol]31 U/L13 - 35 U/LCleveland ClinicBilirubin [Mass/Vol]0.4 mg/dL0.2 - 1.3 mg/dLNorth Chelmsford ClinicCalcium [Mass/Vol]10.0 mg/dL8.5 - 10.2 mg/dLNorth Chelmsford ClinicChloride [Moles/Vol]105 mmol/L97 - 105 mmol/LCleveland ClinicCO2 [Moles/Vol]23 mmol/L22 - 30 mmol/LCleveland ClinicCreatinine [Mass/Vol]0.79 mg/dL0.58 - 0.96 mg/dLGreen Cross HospitalEstimated Glomerular Filtration Kwhg375 mL/min/1.73m>=60 mL/min/1.73mCLutheran HospitalGlucose [Mass/Vol]84 mg/dL74 - 99 mg/dLGreen Cross HospitalPotassium [Moles/Vol]4.1 mmol/L3.7 - 5.1 mmol/LCleveland ClinicProtein [Mass/Vol]7.7 g/dL6.3 - 8.0 g/dLMarietta Memorial Hospitalodium [Moles/Vol] 140 mmol/L136 - 144 mmol/LCleveland Welia HealthUrea nitrogen [Mass/Vol]12 mg/dL7 - 21 mg/dLDelaware County Hospital Westergren method (Bld) [Velocity]on 85-66-3648DFO (Bld) [Velocity]5 mm/h0 - 20 mm/hrGreen Cross HospitalNo Panel Informationon 93-58-6461Ysoqqfjha [facility] TriPoint Medical CenterRHEUMATOID FACTOR BLon 07-28-2022 Rheumatoid factor Qn<16 IU/mLClevelThe Bellevue HospitalXR CSPINE OBL FLEX_EXTon 02-16-2022 XR CSPINE OBL FLEX_EXTEXAMINATION: XR CSPINE OBL FLEX_EXT HISTORY: Brachial (cervical) neuritis ; [...] Electronically authenticated by: NAVNEET MONTERO Date: 2022-02-16 08:[address] [place], [place] [address]Ferritin [Mass/volume] in Serum or PlasmaOrdered By: Kenna Sheehan on 09-73-7175Nltltlva [Mass/Vol]51.8 ng/lS10-681.8[facility] Memorial HospitalPAP ACOG PANEL 2: 30 to 65on 01-13-2022..[address] [facility] on above:Result Comment: Performed at: WBPerformed By: #### [id number] #### [facility] [address] [place] [address] Dr. Lui Lopez Gdln ACOG Hqdpxmn82-79HwerymMzvCleveland Clinic Akron GeneralComment on above:Performed By: #### [id number] #### [facility] [address] [place] [address] Dr. Lui FonsecaDIAGNOSIS:CommentTogus VA Medical Center on above: Result Comment: NEGATIVE FOR INTRAEPITHELIAL LESION OR MALIGNANCY. Performed at: WBPerformed By: #### [id number] #### [facility] [address] [place] [address] Dr. Lui FonsecaHPV AptimaNegativeNormalNegativeChildren's Hospital for Rehabilitation on above:Result Comment: This nucleic acid amplification test detects fourteen high-risk HPV types (16,18,31,33,35,39,45,51,52,56,58,59,66,68) without differentiation. Performed at: =GPerformed By: #### [id number] #### [facility] [address] [place] [address] Dr. Lui FonsecaMethodology:CommentTogus VA Medical Center on above: Result Comment: This liquid based ThinPrep(R) pap test was screened with the use of an image guided system. Performed at: WBPerformed By: #### [id number] #### [facility] [address] [place] [address] Dr. Lui FonsecaNote:CommentTogus VA Medical Center on above:Result Comment: The Pap smear is a screening test designed to aid in the detection of premalignant and malignant conditions of the uterine cervix. It is not a diagnostic procedure and should not be used as the sole means of detecting cervical cancer. Both false-positive and false-negative reports do occur. . Performed at: WBPerformed By: #### [id number] #### [facility] [address] [place] [address] Dr. Lui FonsecaPerformed by:CommentTogus VA Medical Center on above: Result Comment: Tere Alejandro, Supervisory Java Oracle Developer (ASCP) Performed at: WBPerformed By: #### [id number] #### [facility] [address] [place] [address] Dr. Lui FonsecaSpecimen adequacy:CommentTogus VA Medical Center on above:Result Comment: Satisfactory for evaluation. No endocervical component is identified. Performed at: WBPerformed By: #### [id number] #### [facility] [address] [place] [address] Dr. Lui FonsecaINSULINon 18-34-8278Hgugdgs71.6 uIU/mLNormal2.6-24.9The [facility] HospitalComment on above:Performed By: #### INSULIN #### [facility] [address] [place] [address] Dr. Lui FonsecaH PYLORI ANTIBODY IGGon 01-01-2022H. PYLORI IGG ABS0.15 Index ValueNormal0.00-0.79The [facility] on above:Result Comment: Negative <0.80 Equivocal 0.80 - 0.89 Positive >0.89Performed By: #### HPYLLC #### [facility] [address] [place] [address] Dr. Lui FonsecaT4, T3U, FTI LABCORPon 11-67-5021Dzbo Thyroxine Index2.7Normal 1.2-4.9The [facility] HospitalComment on above:Performed By: #### THYLC #### [facility] [address] [place] [address] Dr. Lui FonsecaT3 Trgcrt21 %Gpesuo56-72Mir [facility] on above: Performed By: #### THYLC #### [facility] [address] [place] [address] Dr. Lui Marrero4 [Mass/Vol]9.1 ug/dLNormal4.5-12.0The [facility] Limament on above:Performed By: #### THYLC #### [facility] [address] [address] [address] Lui Ramos AUTO DIFFon 33-42-6317BXWV #0.0 103/ulNormal0.0-0.1The [facility] HospitalComment on above:Performed By: #### CBC #### [facility] [address] [place] [address] Dr. Lui FonsecaBasophils/100 WBC (Bld)0.4 %Normal0.2-2.0The [facility] Comment on above:Performed By: #### CBC #### [facility] [address] [place] [address] Dr. Lui Shetty #0.2 103/ulNormal0.0-0.7The [facility] HospitalComment on above: Performed By: #### CBC #### [facility] [address] [place] [address] Dr. Lui Mixosinophils/100 WBC (Bld)2.8 %Normal0.9-7.0The [facility] Comment on above:Performed By: #### CBC #### [facility] [address] [place] [address] Dr. Lui Mixrythrocyte distribution width (RBC) [Ratio]13.2 %Ctorci55.0-15.0 The [facility] HospitalComment on above:Performed By: #### CBC #### [facility] [address] [place] [address] Dr. Lui FonsecaHematocrit (Bld) [Volume fraction]44.0 %Yagfnh17.0-48.0The [facility] HospitalComment on above:Performed By: #### CBC #### [facility] [address] [place] [address] Dr. Lui FonsecaHemoglobin (Bld) [Mass/Vol]14.3 g/sNVtqcek57.0-16.0The [facility] HospitalComment on above:Performed By: #### CBC #### [facility] [address] [place] [address] Dr. Lui Haas #0.01 10e3/ulNormal0.00-0.03[facility] on above:Performed By: #### CBC #### [facility] [address] [address] [address] Lui Haas %0.2 %Normal0.0-0.5The [facility] HospitalComharper university hospital on above: Performed By: #### CBC #### [facility] [address] [place] [address] Dr. Lui Coffey #2.3 103/ulNormal1.2-3.8The [facility] HospitalComment on above:Performed By: #### CBC #### [facility] [address] [place] [address] Dr. Lui Martinezhocytes/100 WBC (Bld)41.6 %Rlfwos80.5-60.0[address] [facility] on above:Performed By: #### CBC #### [facility] [address] [place] [address] Dr. Lui Ricketts DIFF REQNONormalThe [facility] HospitalComment on above: Performed By: #### CBC #### [facility] [address] [place] [address] Dr. Lui Solis (RBC) [Entitic mass]29.1 kmRmbups58.7-34.0[address] [facility] on above:Performed By: #### CBC #### [facility] [address] [place] [address] Dr. Lui Harris (RBC) [Mass/Vol]32.5 g/mKHigonl77.9-35.2The [facility] on above:Performed By: #### CBC #### [facility] [address] [place] [address] Dr. Lui Harris (RBC) [Entitic vol]89.6 bYInvzul51.0-99.0[address] [facility] on above:Performed By: #### CBC #### [facility] [address] [place] [address] Dr. Lui Mcghee #0.3 103/ulNormal0.3-0.8The [facility] HospitalComment on above:Performed By: #### CBC #### [facility] [address] [address] [address] Lui Roblesocytes/100 WBC (Bld)6.3 %Normal1.7-12.0The [facility] on above:Performed By: #### CBC #### [facility] [address] [address] [address] Lui HernandezUT #2.7 103/ulNormal1.4-6.5The [facility] Memorial HospitalComment on above:Performed By: #### CBC #### [facility] [address] [place] [address] Dr. Lui Hernandezutrophils/100 WBC (Bld)48.7 %Hispge18.0-75.0[facility] on above:Performed By: #### CBC #### [facility] [address] [place] [address] Dr. Lui FonsecaPlatelet mean volume (Bld) [Entitic vol]9.5 fLNormal9.5-13.5The [facility] HospitalComment on above:Performed By: #### CBC #### [facility] [address] [place] [address] Dr. Lui FonsecaPLT276 103/phIcgbwk863-067Hqk [facility] on above: Performed By: #### CBC #### [facility] [address] [place] [address] Dr. Lui FonsecaRBC4.91 106/ulNormal4.20-5.40[facility] on above:Performed By: #### CBC #### [facility] [address] [place] [address] Dr. Lui FonsecaWBC5.4 103/ulNormal4.0-11.0[address] [facility] on above: Performed By: #### CBC #### [facility] [address] [place] [address] Dr. Lui FonsecaGLYCOHEMOGLOBIN A1Con 76-82-2993DTC RECOMMENDATIONSEE BELOWNormal The [facility] Limaharper university hospital on above:Result Comment: ADA RECOMMENDED LIMIT 4.0 - 6.0 ADA THERAPEUTIC TARGET < 7.0 ACTION SUGGESTED > 7.0Performed By: #### A1C ####[facility] [address] [address]DrLatisha FonsecaGlucose [Mass/Vol]97 mg/dLMercy Health Anderson HospitalComment on above:Performed By: #### A1C ####[facility] [address] [address]DrAmirah FonsecaHbA1c (Bld) [Mass fraction]5.0 %Normal 4.5-6.2The [facility] HospitalComment on above:Performed By: #### A1C ####[facility] [address] [place], [place] [address]DrAmirah FonsecaIRONon 91-80-8087Lxts [Mass/Vol]101.0 ug/yWAszmbe03.0-170.0The [facility] HospitalComment on above:Performed By: #### IRON #### [facility] [address] [address] [address] Lui FonsecaLIPID PROFILEon 72-68-8819DTQP-HDL RATIO NORMSGreene Memorial HospitalComharper university hospital on above:Result Comment: 3.3 - 4.4 LOW RISK 4.4 - 7.1 AVERAGE RISK 7.1 - 11.0 MODERATE RISK >11.0 HIGH RISKPerformed By: #### TSH, LIPID, CMP ####[facility] [address] [address]DrLatisha FonsecaCholesterol [Mass/Vol]149 mg/dLNormal<=200The [facility] on above:Performed By: #### TSH, LIPID, CMP ####[facility] [address] [address]DrLatisha Fonseca Cholesterol in HDL [Mass/Vol]55 mg/dYHwuvla18-57Ohx [facility] on above:Performed By: #### TSH, LIPID, CMP ####[facility] [address] [address]Dr. Lui FonsecaCholesterol in LDL [Mass/Vol] 61.4 mg/dLMercy Health Anderson HospitalComment on above:Performed By: #### TSH, LIPID, CMP ####[facility] [address] [address]Dr. Lui FonsecaCholesterol.total/Cholesterol in HDL [Mass ratio]2.7 {ratio} NormalMemorial Health SystemComharper university hospital on above:Performed By: #### TSH, LIPID, CMP ####[facility] [address] [address]Dr. Yilan ChangHDL NORMAL> or = 60 mg/dl - LOW CARDIOVASCULAR RISK <40 mg/dl - HIGH CARDIOVASCULAR RISKMercy Health Anderson HospitalComharper university hospital on above:Performed By: #### TSH, LIPID, CMP ####[facility] [address] [address]Dr. Yilan ChangLDL CALC NORMALSEE BELOWMercy Health Anderson HospitalComment on above:Result Comment: <100 mg/dl OPTIMAL 100 - 129 mg/dl NEAR OR ABOVE OPTIMAL 130 - 159 mg/dl BORDERLINE HIGH 160 - 189 mg/dl HIGH >190 mg/dl VERY HIGHPerformed By: #### TSH, LIPID, CMP ####[facility] [address] [address]Dr. Gabilan ChangTriglyceride [Mass/Vol]163 mg/dLCritically high<=150[facility] on above: Performed By: #### TSH, LIPID, CMP ####[facility] [address] [address]Dr. Yilan ChangVLDL CALC32.6 mg/dLMercy Health Anderson HospitalComharper university hospital on above:Performed By: #### TSH, LIPID, CMP ####[facility] [address] [address]Dr. Gabilan ChangOCC BLD IMMUNO SCREENon 16-94-5309JCOWCH BLOODNegativeNormalNEGATIVE The [facility] HospitalComharper university hospital on above:Performed By: #### OBSCRN #### [facility] [address] [address] [address] Lui OrtizF 14(COMP METB)on 86-33-9418Yufsnvm [Mass/Vol]4.1 g/dLNormal 3.4-5.0The [facility] on above:Performed By: #### TSH, LIPID, CMP ####[facility] [address] [address]Dr. Lui FonsecaAlbumin/Globulin [Mass ratio]1.2 {ratio}NormalThe [facility] Comment on above:Performed By: #### TSH, LIPID, CMP ####[facility] [address] [place], [place] [address]Dr. Lui FonsecaALP [Catalytic activity/Vol]86 U/EJkspeo14-923Eqf [facility] on above:Performed By: #### TSH, LIPID, CMP ####[facility] [address]av[address] [place], [place] [address]Dr. Lui FonsecaALT [Catalytic activity/Vol]27 U/L Zulboi48-21Qcs [facility] HospitalComment on above:Performed By: #### TSH, LIPID, CMP ####[facility] [address] [place], [place] [address]Dr. Lui FonsecaAnion gap [Moles/Vol]14.1 mmol/LNormalThe [facility] HospitalComment on above:Performed By: #### TSH, LIPID, CMP ####[facility] Unxbuvuixy[address] [place], [place] [address]Dr. Lui ChangAST [Catalytic activity/Vol] 15 U/MYsrgbv42-72Qba [facility] HospitalComment on above:Performed By: #### TSH, LIPID, CMP ####[facility] [address]dwqdoav[address] [place], [place] [address]Dr. Lui FonsecaBilirubin [Mass/Vol]0.6 mg/dLNormal0.2-1.0The [facility] HospitalComment on above:Performed By: #### TSH, LIPID, CMP ####[facility] [address]wf[address] [place], [place] [address]Dr. Lui Fonseca Calcium [Mass/Vol]9.1 mg/dLNormal8.5-10.1The [facility]fords HospitalComment on above: Performed By: #### TSH, LIPID, CMP ####[facility] [address] [place], [place] [address]Dr. Yilan ChangChloride [Moles/Vol]104 mmol/L Qptvqd12-620Nlg [facility] HospitalComharper university hospital on above:Performed By: #### TSH, LIPID, CMP ####[facility] Yiolgbcoat[address] [place], [place] [address]Dr. Yilan ChangCO2 [Moles/Vol]26.8 mmol/VTtehxb62.0-32.0The [facility] HospitalComment on above:Performed By: #### TSH, LIPID, CMP ####[facility] [address]xs[address] [place], [place] [address]Dr. Yilan Fonseca Creatinine [Mass/Vol]0.84 mg/dLNormal0.55-1.02The [facility] HospitalComharper university hospital on above:Performed By: #### TSH, LIPID, CMP ####[facility] [address]agpt[address] [place], [place] [address]Dr. Yilan ChangEGFR-AF TURKS AND CAICOS ISLANDER>60Normal>=[address] [facility] on above:Performed By: #### TSH, LIPID, CMP ####[facility] Xpanrduxet[address] [place], [place] [address]Dr. Yilan ChangEGFR-NON AF TURKS AND CAICOS ISLANDER>60Normal>=60[facility] on above:Performed By: #### TSH, LIPID, CMP ####[facility] Z[address]jmbzshw[address] [place], [place] [address]Dr. Yilan ChangGlobulin (S) [Mass/Vol]3.3 g/dLNormalThe [facility] HospitalComharper university hospital on above:Performed By: #### TSH, LIPID, CMP ####[facility] [address]kl[address] [place], [place] [address]Dr. Yilan ChangGlucose [Mass/Vol]93 mg/hEUkhoig07-495KruMemorial Health SystemComment on above:Performed By: #### TSH, LIPID, CMP ####[facility] [address] [place], [place] [address]Dr. Yilan ChangPotassium [Moles/Vol]3.9 mmol/LNormal3.5-5.1The [facility] HospitalComment on above:Performed By: #### TSH, LIPID, CMP ####[facility] [address] [address]Dr. Lui ChangProtein [Mass/Vol]7.4 g/dLNormal6.4-8.2[facility] Comment on above:Performed By: #### TSH, LIPID, CMP ####[facility] [address] [address]Dr. Yilan ChangSodium [Moles/Vol]141 mmol/VRpnehz274-825Kpi [facility] HospitalComment on above: Performed By: #### TSH, LIPID, CMP ####[facility] [address] [address]Dr. Lui ChangUrea nitrogen [Mass/Vol]8.0 mg/dL Normal7.0-18.0The [facility] HospitalComment on above:Performed By: #### TSH, LIPID, CMP ####[facility] [address] [address]Dr. Gabilan ChangUrea nitrogen/Creatinine [Mass ratio]9.5 mg/mgNormalThe [facility] HospitalComment on above:Performed By: #### TSH, LIPID, CMP ####[facility] [address] [address]Dr. Lui FonsecaTSHon 29-34-2122CPF2.539 uIU/mLNormal0.358-3.740The [facility] Comment on above:Performed By: #### TSH, LIPID, CMP ####[facility] [address] [address]Dr. Lui Raymundo Vital Signs Date TimeVital SignValuePerforming SrximwytzQpbhjytp57-13-3907 08:00-0400Body .5 cmSis Irby MD Work Phone: [facility] HospitalRvriqtukqh24-67-5278 08:00-0400Body mass index (BMI) [Ratio]29.81 kg/h5JzeivcuSis Irby MD Work Phone: [phone] [place], [place] [address]Ibtrrucctf39-04-2055 08:00-0400Body qiodjt53.94 kgSis Irby MD Work Phone: [phone] [place], [place] [address]Vzuhcoxbtn21-89-6469 08:00-0400Diastolic blood mybanlqt51 mm[Hg]Sis Irby MD Work Phone: [phone] [place], [place] [address]Ggiqxnyerq82-41-4356 08:00-0400Heart rate81 /min Sis Irby MD Work Phone: [phone])[facility] [place], [place] [address]Lyzwugvmxc85-31-0750 08:00-0400Systolic blood mm[Hg]Sis Irby MD Work Phone: [phone] [place], [place] [address]Uyaobnherw00-54-7275 09:04-0400Body hecyzn171.5 cmSis Irby MD Work Phone: [phone] [place], [place] [address]Cpukutsusy50-07-3874 09:04-0400Body mass index (BMI) [Ratio]30.54 kg/m5AcbtfqhSis Irby MD Work Phone: [phone] [place], [place] [address]Mphmieccvm79-80-1735 09:04-0400Body jxceuh75.75 kgSis Irby MD Work Phone: 1(099)[facility] [place], [place] [address]Uyjnwtntdb55-56-0060 09:04-0400Diastolic blood bgvxibga76 mm[Hg]Sis Irby MD Work Phone: 1(000)[facility] [place], [place] [address]Jyellwilxc76-84-8746 09:04-0400Systolic blood hnqoxlsn799 mm[Hg]Sis Irby MD Work Phone: 1(245)[facility] [place], [place] [address]Vgyjrjdofi89-13-0953 16:09-0400Body uarybg021.5 Heidy Sullivan MD Work Phone: [facility]06-11-2025 16:09-0400Body mass index (BMI) [Ratio]29.84 kg/m2David Sullivan MD Work Phone: [facility]06-11-2025 16:09-0400Body ohowbr41 kg David Sullivan MD Work Phone: [facility]06-11-2025 16:09-0400Diastolic blood rpyseyzi82 mm[Hg]David Sullivan MD Work Phone: [facility]06-11-2025 16:09-0400Heart udid777 /minDavid Sullivan MD Work Phone: [facility]06-11-2025 16:09-2773MrP4% (BldA) [Mass fraction]99 %David Sullivan MD Work Phone: [facility]06-11-2025 16:09-0400Systolic blood psockzmp522 mm[Hg]David Sullivan MD Work Phone: [facility]06-04-2025 15:46-0400Body gyfpym171.48 cmFiliberto Ying MD Work Phone: 1(566)[address]06-04-2025 15:46-0400 Body mass index (BMI) [Ratio]30 kg/o0WdjeqclFiliberto Ying MD Work Phone: 1(941)[address]06-04-2025 15:46-0400 Body orsfqy33.5 kgFiliberto Ying MD Work Phone: 1(367)[address]06-04-2025 15:46-0400 Diastolic blood gsmdaybz08 mm[Hg]Filiberto Ying MD Work Phone: 1(896)845-[address] [place], [place] 3867306-04-2025 15:46-0400 Heart rate88 /minDdario Ying MD Work Phone: 1(942)824-[address] [place], [place] 3867306-04-2025 15:46-0400 SaO2% (BldA) [Mass fraction]99 %Filiberto Ying MD Work Phone: 1(017)925-[address] [place], [place] 3867306-04-2025 15:46-0400 Systolic blood mqewqmvi525 mm[Hg]Filiberto Ying MD Work Phone: 1(716)[address]04-30-2025 08:59-0400 Diastolic blood nvybqbfd13 mm[Hg]Filiberto Ying MD Work Phone: 1(288)483-[address] [place], [place] 3867304-30-2025 08:59-0400 Heart rate85 /Jluis Ying MD Work Phone: 1(079)[facility]-[address] [place], [place] 3867304-30-2025 08:59-0400 Respiratory rate18 /Jluis Ying MD Work Phone: 1(100)[address] [place], [place] 8562204-30-2025 08:59-0400 SaO2% (BldA) [Mass fraction]98 %Filiberto Ying MD Work Phone: 1(393)[address]04-30-2025 08:59-0400 Systolic blood mkxqcafl738 mm[Hg]Filiberto Ying MD Work Phone: 1(441)[address] [place], [place] 8562204-30-2025 05:05-0400 Body .48 cmDodavion Ying MD Work Phone: 1(488)[address] [place], [place] 8562204-30-2025 05:05-0400 Body dkdblalyzak68.1 [degF]Filiberto Ying MD Work Phone: 1(298)[address] [place], [place] 8562204-30-2025 05:05-0400 Body bsweza30.55 kgDodavoin Ying MD Work Phone: 1(282)[address] [place], [place] 8562203-14-2025 10:43-0400 Diastolic blood yoymlkkl54 mm[Hg]Filiberto Ying MD Work Phone: 1(103)[address] [place], [place] 8562203-14-2025 10:43-0400 Heart rate72 /Jluis Ying MD Work Phone: 1(178)[facility]-[address] [place], [place] 3867303-14-2025 10:43-0400 Respiratory rate18 /Jluis Ying MD Work Phone: 1(664)[address] [place], [place] 8562203-14-2025 10:43-0400 SaO2% (BldA) [Mass fraction]99 %Filiberto Ying MD Work Phone: 1(017)[address]03-14-2025 10:43-0400 Systolic blood sftbsdca767 mm[Hg]Filiberto Ying MD Work Phone: [facility]03-14-2025 09:25-0400 Body wlohkdilwix53.2 [degF]Filiberto Ying MD Work Phone: [facility]03-14-2025 07:49-0400 Body .48 cmFiliberto Ying MD Work Phone: 1(417)961-[address] [place], [place] 3867303-14-2025 07:49-0400 Body foswnn52.25 kgFiliberto Ying MD Work Phone: 1(868)475-[address] [place], [place] 3867303-12-2025 16:17-0400 Body tuatim852.5 cmTed Laurie MCMILLAN Work Phone: [facility]03-12-2025 16:17-0400Body mass index (BMI) [Ratio]30.24 kg/m2David Sullivan MD Work Phone: [facility]03-12-2025 16:17-0400Body zckneh94 kg David Sullivan MD Work Phone: [facility]03-12-2025 16:17-0400Diastolic blood ugkybkuq58 mm[Hg]David Sullivan MD Work Phone: [facility]03-12-2025 16:17-0400Heart tetx784 /minDavid Sullivan MD Work Phone: [facility]03-12-2025 16:17-4098LtN2% (BldA) [Mass fraction]98 %David Sullivan MD Work Phone: [facility]03-12-2025 16:17-0400Systolic blood mm[Hg]David Sullivan MD Work Phone: [facility]01-30-2025 20:00-0500Diastolic blood qucfuvkr67 mm[Hg]Filiberto Ying MD Work Phone: 1(337)223-[address] [place], [place] 3867301-30-2025 20:00-0500 Heart rate67 /Jluis Ying MD Work Phone: 1(179)446-[address] [place], [place] 3867301-30-2025 20:00-0500 Respiratory rate24 /Jluis Ying MD Work Phone: 1(419)[address] [place], [place] 8562201-30-2025 20:00-0500 SaO2% (BldA) [Mass fraction]99 %Filiberto Ying MD Work Phone: 1(419)[address] [place], [place] 8562201-30-2025 20:00-0500 Systolic blood oxwrnyhp586 mm[Hg]Filiberto Ying MD Work Phone: 1(419)[address] [place], [place] 8562201-30-2025 13:52-0500 Body sinktr490.48 cmFiliberto Ying MD Work Phone: 1(419)[address] [place], [place] 8562201-30-2025 13:52-0500 Body gbjhrqwmfyk26.1 [degF]Filiberto Ying MD Work Phone: 1(419)[address] [place], [place] 8562201-30-2025 13:52-0500 Body soxgpo72 kgFiliberto Ying MD Work Phone: 1(419)[address] [place], [place] 8562201-28-2025 10:04-0500 Diastolic blood xbqzryvi01 mm[Hg]Filiberto Ying MD Work Phone: 1(419)[address] [place], [place] 8562201-28-2025 10:04-0500 Heart rate85 /Jluis Ying MD Work Phone: 1(419)[address] [place], [place] 8562201-28-2025 10:04-0500 Respiratory rate20 /Jluis Ying MD Work Phone: 1(419)[address] [place], [place] 8562201-28-2025 10:04-0500 SaO2% (BldA) [Mass fraction]100 %Filiberto Ying MD Work Phone: 1(419)[address] [place], [place] 8562201-28-2025 10:04-0500 Systolic blood mbqgwrpa874 mm[Hg]Filiberto Ying MD Work Phone: 1(419)[address] [place], [place] 8562201-28-2025 09:19-0500 Body idyoinetptz14 [degF]Filiberto Ying MD Work Phone: 1(419)[address] [place], [place] 8562201-28-2025 09:19-0500 Inhaled oxygen flow rate6 L/minDdario Ying MD Work Phone: [facility]01-28-2025 06:55-0500 Body .48 cmFiliberto Ying MD Work Phone: [facility]01-28-2025 06:55-0500 Body gobvrq65 kgDodavion Ying MD Work Phone: [facility]09-11-2024 13:48-0400 Body .5 Heidy Sullivan MD Work Phone: [facility]09-11-2024 13:48-0400Body mass index (BMI) [Ratio]28.43 kg/m2David Sullivan MD Work Phone: [facility]09-11-2024 13:48-0400Body tsqixy96.5 kgDavid Sullivan MD Work Phone: [facility]09-11-2024 13:48-0400Diastolic blood qssbtmoo13 mm[Hg]David Sullivan MD Work Phone: [facility]09-11-2024 13:48-0400Heart rate91 /min David Sullivan MD Work Phone: [facility]09-11-2024 13:48-0400Systolic blood tzwhmhza632 mm[Hg]David Sullivan MD Work Phone: [facility]06-12-2024 10:14-0400Body .5 Heidy Sullivan MD Work Phone: [facility]06-12-2024 10:14-0400Body mass index (BMI) [Ratio]27.82 kg/m2David Sullivan MD Work Phone: [facility]06-12-2024 10:14-0400Body mqquvv12 kg David Sullivan MD Work Phone: [facility]06-12-2024 10:14-0400Diastolic blood majyjhxg06 mm[Hg]David Sullivan MD Work Phone: [facility]06-12-2024 10:14-0400Heart rate84 /min David Sullivan MD Work Phone: [facility]06-12-2024 10:14-0400Systolic blood deexflxn317 mm[Hg]David Sullivan MD Work Phone: [facility]05-03-2024 08:12-0400Body jnoibw408.5 cmTed Laurie MCMILLAN Work Phone: 1([phone]05-03-2024 08:12-0400Body mass index (BMI) [Ratio]27.58 kg/m2David Sullivan MD Work Phone: 1(536)[phone]05-03-2024 08:12-0400Body jlmsih07.4 kgDavid Sullivan MD Work Phone: 1([phone]05-03-2024 08:12-0400Diastolic blood bdaslzgu10 mm[Hg]David Sullivan MD Work Phone: [facility]05-03-2024 08:12-0400Heart rate84 /min David Sullivan MD Work Phone: [facility]05-03-2024 08:12-2501ZuB4% (BldA) [Mass fraction]99 %David Sullivan MD Work Phone: [facility]05-03-2024 08:12-0400Systolic blood vfdsvnky552 mm[Hg]David Sullivan MD Work Phone: [facility]12-26-2023 12:15-0500Diastolic blood dwajmiea55 mm[Hg]MD Filiberto Ying Work Phone: [facility]12-26-2023 12:15-0500 Heart rate86 /minMD Filiberto Ying Work Phone: [facility]12-26-2023 12:15-0500 Respiratory rate16 /minMD Filiberto Ying Work Phone: [facility]12-26-2023 12:15-0500 SaO2% (BldA) [Mass fraction]100 %MD Filiberto Ying Work Phone: [phone])[address] [place], [place] 8562212-26-2023 12:15-0500 Systolic blood zefmfefa137 mm[Hg]MD Filiberto Ying Work Phone: 1(419)[address] [place], [place] 8562212-26-2023 11:10-0500 Inhaled oxygen flow rate6 L/minMD Filiberto Ying Work Phone: [phone])[address] [place], [place] 8562212-26-2023 10:55-0500 Body ajovevwpkbo99.1 [degF]MD Filiberto Ying Work Phone: 1(419)[address] [place], [place] 8562212-26-2023 09:30-0500 Body mass index (BMI) [Ratio]25.8 kg/m2MD Filiberto Ying Work Phone: 1(419)[address] [place], [place] 8562212-26-2023 08:55-0500 Body obbxxl873.48 cmMD Filiberto Ying Work Phone: 1(419)[address] [place], [place] 8562212-26-2023 08:55-0500 Body pjuajb23 kgMD Filiberto Petersty Work Phone: 1(419)[address] [place], [place] 8562211-16-2023 12:08-0500 Body .2 [degF]MD Filiberto Ying Work Phone: 1(419)[address] [place], [place] 8562211-16-2023 12:08-0500 Diastolic blood jekdufbh17 mm[Hg]MD Filiberto Ying Work Phone: 1(419)[address] [place], [place] 8562211-16-2023 12:08-0500 Heart rate87 /minMD Filiberto Ying Work Phone: 1(419)[address] [place], [place] 8562211-16-2023 12:08-0500 Respiratory rate18 /minMD Filiberto Ying Work Phone: 1(419)[address] [place], [place] 8562211-16-2023 12:08-0500 SaO2% (BldA) [Mass fraction]100 %MD Filiberto Ying Work Phone: 1(419)[address] [place], [place] 8562211-16-2023 12:08-0500 Systolic blood tabgoztd287 mm[Hg]MD Filiberto Ying Work Phone: 1(659)454-[address] [place], [place] 3867308-25-2023 09:35-0400 Body fofrlm613.5 cmRobert Menchaca NIGHTCLUB MANAGER.[employer] Work Phone: [phone])213-8ILutheran HospitalDlxgwa72-91-4010 09:35-0400Body zrzrua18.31 kgKyelisa Menchaca NIGHTCLUB MANAGER.[employer] Work Phone: 1(216)7NLutheran HospitalUricik75-97-5997 09:35-0400Diastolic blood mm[Hg]Robert Bernarda NIGHTCLUB MANAGER.[employer] Work Phone: 1(216)0SLutheran HospitalQxwiwk40-77-3853 09:35-0400Heart valv298 /minKyelisa Menchaca NIGHTCLUB MANAGER.[employer] Work Phone: 1(216)6NLutheran HospitalRgntwc90-88-0677 09:35-5150IwZ4% (BldA) [Mass fraction]93 %Robert Bernarda N[employer]CLUB MANAGER.[employer] Work Phone: 1(216)9MLutheran HospitalCpnrhx08-14-6969 09:35-0400Systolic blood ozzvuuxm803 mm[Hg]Robert Bernarda NIGHTCLUB MANAGER.[employer] Work Phone: [phone] HospitalRjgcow67-16-2736 14:14-0400Diastolic blood mm[Hg]MD Filiberto Ying Work Phone: 1(237)105-[address] [place], [place] 3867306-05-2023 14:14-0400 Heart ibcn549 /minMD Filiberto Ying Work Phone: [facility]06-05-2023 14:14-0400 Systolic blood mleksbag157 mm[Hg]MD Filiberto Ying Work Phone: [facility]06-05-2023 13:50-0400 SaO2% (BldA) [Mass fraction]99 %MD Filiberto Ying Work Phone: 1(930)029-[address] [place], [place] 3867305-03-2023 10:01-0400 Diastolic blood quqginlp63 mm[Hg]Filiberto Ying Work Phone: 1(656)[phone]-Axgps [facility] DO Work Phone: 1(834) 717-101005-03-2023 10:01-0400Diastolic blood jwubwnlv04 mm[Hg] Filiberto M Hoy Work Phone: 1([phone]-Tzppg [facility] [address] DO Work Phone: 1(298)421-028-177806-26 10:01-0400Diastolic blood ebhviocg43 mm[Hg] Filiberto M Hoy Work Phone: 1(760)[phone]-Omgzx [facility] [address] DO Work Phone: 1(541)530-460-702235-83 10:01-0400Systolic blood vrpcsyqs359 mm[Hg] Filiberto M Hoy Work Phone: 1(457)[phone]-Zjvto [facility] [address] DO Work Phone: 1(457)477-392-539648-27 10:01-0400Systolic blood edjzgcqf618 mm[Hg] Filiberto M Hoy Work Phone: 1(128)[phone]-Qmiqy [facility] [address] DO Work Phone: 1(972)588-332-831851-70 09:59-0400Body .48 cmDouglas M Hoy Work Phone: 1(191)059-475-8647VI-Fenyw [facility] [address] DO Work Phone: 1(261)825-059-912731-63 09:59-0400Body mass index (BMI) [Ratio] 30.36 kg/p7Ixnivmw M Hoy Work Phone: 1(408)[phone]-Zxhpw [facility] [address] DO Work Phone: 1(849)912-289-306795-94 09:59-0400Body surface area Derived from formula1.77 v2Zcaniqt M Hoy Work Phone: 1(057)[phone]-Zuexn [facility] [address] DO Work Phone: 1(562)201-204-880240-83 09:59-0400Body ytclny64.3 kgDouglas M Hoy Work Phone: 1(222)[phone]-Jfexq [facility] [address] DO Work Phone: 1(731)841-914-577460-57 09:59-0400Diastolic blood mm[Hg] Filiberto M Hoy Work Phone: 1(482)[phone]-Qjxyw [facility] [address] DO Work Phone: 1(444) 823-452605-03-2023 09:59-0400Heart rate85 /minDouglnidhi Ying Work Phone: 1(665)[phone]-Yryxg [facility] [address] DO Work Phone: 1(544) 162-326705-03-2023 09:59-0400Systolic blood ieqmajtm088 mm[Hg] Filiberto Zoe Ying Work Phone: 1(714)511-987-9554CJ-Jiaey [facility] [address] DO Work Phone: 1(760) 257-743403-10-2023 13:01-0500Body sijbhn818.5 cmSomjita Braxton N[employer]CLUB MANAGER.[employer] Work Phone: [phone] Nyqkyo88-74-8573 13:01-0500Body temperature 97.81 [degF]Somjita Braxton N[employer]CLUB MANAGER.[employer] Work Phone: [phone] Tucqmm75-15-7379 13:01-0500Body glyger66.11 kgSomjita Braxton NIGHTCLUB MANAGER.[employer] Work Phone: [phone] Vuxvbk75-59-0901 13:01-0500Diastolic blood dlqrubwk42 mm[Hg]Somjita Braxton NIGHTCLUB MANAGER.[employer] Work Phone: [phone] Lrabln98-16-3474 13:01-0500Heart rate85 /min Somjita Braxton N[employer]CLUB MANAGER.[employer] Work Phone: [phone] Zpyxgt17-34-8067 13:01-0500Systolic blood jyfspjmg337 mm[Hg]Somjita Braxton N[employer]CLUB MANAGER.[employer] Work Phone: [phone] Encoun[facility] Encounter DateEncounter TypeCare ProviderFacilityStart: 03-23-2025 End: 05-98-1463YybgahKgsobvs W Bauer MD Work Phone: NOFormerly [facility] 210Comment on above: Intractable chronic migraine without aura and with status migrainosusStart: 03-02-2025 End: 62-26-0467YdobsrGhuvdzy W Bauer MD Work Phone: noFormerly [facility] 210Comment on above: Intractable chronic migraine without aura and with status migrainosus (Primary Dx)Start: 02-23-2025 End: 66-01-6374ewhmrodllrNZK WEISSFELDFacility:[facility]art: 01-28-2025 End: 10-00-3165Dolbok flowsNilson Bedolla MD Work Phone: noSD [facility] DermatologyStart: 01-28-2025 End: 16-81-6807Ubemuf flowsheetBan Bedolla MD Work Phone: noms [facility] DermatologyStart: 01-28-2025 End: 56-84-2859Todrsm outpatient visit 25 minutesEmily Chan Bedolla MD Work Phone: noSD [facility]win DermatologyComment on above:Other rosacea (Primary Dx); Cellulitis of left thumbStart: 01-28-2025 End: 12-75-6846tcfuiquccrDEYEB A PETITTINot AvailableStart: 01-21-2025 End: 42-28-2036Vadzai Odalis Irby MD Work Phone: noms NEUROLOGYStart: 01-21-2025 End: 31-02-0221Xyvgujmoris Irby MD Work Phone: noms NEUROLOGYStart: 01-21-2025 End: 33-46-4906Tfooaw outpatient visit 15 minutesEmily Chan Bedolla MD Work Phone: noSD [facility]win DermatologyComment on above:Cellulitis of left thumb (Primary Dx)Start: 01-21-2025 End: 69-00-6568Nxckmg OnlyEmronald Bedolla MD Work Phone: NOSD External Department UnsolicitedStart: 01-21-2025 End: 56-59-9514mccdjvsgtqRHUQW A PETITTINot AvailableStart: 01-21-2025 End: 46-04-2121Rbovqa outpatient visit 25 minutesSis Irby MD Work Phone: [facility]oms [place] NeurologyComment on above:RLS (restless legs syndrome) (Primary Dx); Cervical dystonia; Cervicogenic headache; Intractable chronic migraine without aura and with status migrainosusStart: 01-21-2025 End: 80-96-0322hknwaeurzgDBAVVCM W BAUERNot AvailableStart: 11-27-2024 End: 99-70-8605pxtjglheytQCMMJTR W BAUERNot AvailableStart: 11-25-2024 End: 09-62-4501Trujjf Tom Bedolla MD Work Phone: noMS SWS DERMStart: 11-25-2024 End: 87-85-5932Oulyyrmoris Bedolla MD Work Phone: noms SWS DERMStart: 11-25-2024 End: 81-37-5866Ddzzdj outpatient visit 15 minutesEmronald Bedolla MD Work Phone: noms SWS DERMComment on above:Other rosacea (Primary Dx); Inflamed skin tagStart: 11-25-2024 End: 99-41-0162glornpvuveBIKCP A PETITTINot AvailableStart: 11-20-2024 End: 75-47-1819Bbjvnv Odalis Irby MD Work Phone: noms NEUROLOGYStart: 11-20-2024 End: 12-24-7990Ycurjx Odalis Irby MD Work Phone: noms NEUROLOGYStart: 11-20-2024 End: 32-51-0882Zpxdou outpatient new 45 minutesSis Irby MD Work Phone: noms SWS NEURComment on above:Cervical dystonia (Primary Dx); RLS (restless legs syndrome)Start: 11-20-2024 End: 32-40-4856aowybwwnxlCKHFRUG W BAUERNot AvailableStart: 11-11-2024 End: 14-94-9105Xrukcfeliel Bedolla MD Work Phone: noms SWS DERMStart: 11-11-2024 End: 84-73-2064Gusvjf flowsheetEmily Chan Bedolla MD Work Phone: NOMS SWS DERMStart: 11-11-2024 End: 75-68-6711Pjqfxf outpatient visit 25 minutesEmily Chan Bedolla MD Work Phone: noms SWS DERMComment on above:Other rosacea (Primary Dx)Start: 11-11-2024 End: 19-93-5352dtnxpusjcpAZMBX Chan QUINNINot AvailableStart: 10-29-2024 End: 78-37-6439Djprhsn encounter procedureDavid Sullivan MD Work Phone: NeurologyComment on above:Chronic migraine without aura, with intractable migraine, so stated, with status migrainosus (Primary Dx); Neck painStart: 10-29-2024 End: 19-07-1395qovrxbrsvmRUQ LAURIEFacility:[facility]art: 10-22-2024 End: 17-20-8440hneaujyxgmLfqadqx M Hoy MD Work Phone: [facility] Work Phone: Start: 10-22-2024 End: 76-86-0160Svkwqbi encounter procedureFiliberto Ying MD Work Phone: [facility] Work Phone: Start: 09-17-2024 End: 10-01-3076Tspyulawp department patient visitFiliberto Ying MD Work Phone: [facility] Work Phone: Start: 08-01-2024 End: 77-59-8356Yxaqyhsep department patient visitFiliberto Ying MD Work Phone: [facility] Work Phone: Start: 07-30-2024 End: 02-40-2714hqelczifidVSP WEISSFELDFacility:[facility]art: 07-30-2024 End: 59-40-1198Zmnuybd encounter procedureTed Laurie MCMILLAN Work Phone: NeurologyComment on above:Chronic migraine without aura, with intractable migraine, so stated, with status migrainosus (Primary Dx); Neck painStart: 07-17-2024 End: 93-62-5716hodwwqiwffAtd Laurie MCMILLAN Work Phone: NeurologyComment on above:Sooner apptStart: 06-23-2024 End: 71-65-9152Xvbtwf follow up visit related to original pxedric H Itzkowandaluca DO Work Phone: [facility] GENSComment on above:Fibroadenoma of breast, right (Primary Dx)Start: 06-23-2024 End: 75-85-5935npppphuzlwMKVRUPT H ITZANNETTENot AvailableStart: 06-19-2024 End: 98-73-2714Yumxthmvk department patient visitFiliberto Ying MD Work Phone: [facility]-Emergency Room Work Phone: Start: 06-17-2024 End: 61-85-1449Qqymxodnp to same day surgery centerFiliberto Ying MD Work Phone: [facility] HospitalStart: 06-17-2024 End: 90-77-8134zwcvtqxjioPulbwpe M Hoy MD Work Phone: [facility] Work Phone: Start: 06-10-2024 End: 52-55-8058Lvwnhact ReferredFiliberto Ying MD Work Phone: [facility]-Pre-Surgical Testing Work Phone: Start: 06-10-2024 End: 33-54-9506Iictasb encounter procedureFiliberto Ying MD Work Phone: [facility]-Pre-Surgical Testing Work Phone: Start: 06-10-2024 End: 14-94-3510aqzpccylvnQgagvjm M Hoy MD Work Phone: [facility] Work Phone: Start: 02-18-2024 End: 05-02-7514egwmootaxoWpbgwhi Vytautas Giedraitis MDFacility:[facility] [place] Start: 01-30-2024 End: 11-26-5947Anupmid encounter procedureTed Laurie MCMILLAN Work Phone: NeurologyComment on above:Chronic migraine without aura, with intractable migraine, so stated, with status migrainosus (Primary Dx); Neck painStart: 01-28-2024 End: 30-27-9398rcdmywfqsfFH Filiberto Ying Work Phone: [facility] Work Phone: Start: 01-28-2024 End: 27-50-3005Mylpmxh encounter procedureMD Filiberto Ying Work Phone: [facility]-Ultrasound Cntr for Breast CarStart: 93-25-5554qvboaacrqzTma ProviderNeurologyComment on above: PaperworkStart: 21-75-6706M[facility] ProviderNe[facility]rology Start: 88-21-4867Ontjzxozu encounterTed Laurie MCMILLAN Work Phone: NeurologyComment on above:AppointmentStart: 10-31-2023 End: 22-18-2398Ndoezgv encounter procedureTed Laurie MCMILLAN Work Phone: NeurologyComment on above:Chronic migraine without aura, with intractable migraine, so stated, with status migrainosus (Primary Dx); Neck painStart: 12-31-6810AX Get Medical AdviceRobert Menchaca APRN.CNP Work Phone: NeurologyComment on above:Med refillRefill Request Start: 38-13-5984Hkzxhigjy encounterTed Laurie MCMILLAN Work Phone: NeurologyComment on above:Insurance Authorization (Botox)Start: 25-82-8612fzwkzsrasxPjxjPedro Menchaca APRN.CNP Work Phone: NeurologyComment on above:FmlaStart: 09-21-2023 Telephone encounterTed Laurie MCMILLAN Work Phone: NeurologyComment on above:Request Outside Medical RecordsStart: 09-21-2023 End: 98-30-9294Zdpldle encounter procedureTed Laurie MCMILLAN Work Phone: NeurologyComment on above:Chronic migraine without aura, with intractable migraine, so stated, with status migrainosus (Primary Dx); Neck pain; RLS (restless legs syndrome)Start: 04-73-0785ExxgehVbuhJessica Menchaca APRN.CNP Work Phone: NeurologyComment on above:Refill RequestStart: 09-04-2023 End: 60-19-2976mrufmzbyguLjskPedro Menchaca APRN.CNP Work Phone: NeurologyComment on above:Cervical dystonia (Primary Dx)Start: 09-04-2023 End: 09-51-6669Devniycsjxpy consultation with Xuan Menchaca APRN.CNP Work Phone: [facility] MAINStart: 22-90-2686C-mail encounter from Ashu Menchaca APRN.CNP Work Phone: NeurologyStart: 03-50-5872Vnywpym encounter procedure Robert Menchaca APRN.CNP Work Phone: NeurologyComment on above:appointmentStart: 05-15-2023 End: 10-53-8504Gnandmvab to same day surgery centerMD Filiberto Ying Work Phone: [facility]Start: 05-15-2023 End: 28-30-0366kxkviteovtTR Filiberto Ying Work Phone: [facility] Work Phone: Start: 05-01-2023 End: 85-92-2662hmrosdbuuqQS Filiberto Ying Work Phone: [facility] Work Phone: Start: 05-01-2023 End: 98-56-2728Efgebjf encounter procedureMD Filiberto Ying Work Phone: [facility]et[facility] Work Phone: Start: 04-05-2023 End: 80-98-9593Ufghjlafm to same day surgery centerMD Filiberto Ying Work Phone: [facility]Ul[facility] Cntr for Breast CarStart: 04-05-2023 End: 07-05-0463hfhgkhfkxsUF Filiberto Ying Work Phone: [facility] Work Phone: Start: 85-33-6205Zinghosxc encounterKyle Bernarda PATRICION.[employer]ATER Work Phone: NeurologyComment on above:Results ([facility] )Start: 65-92-8854Yxjwfwuno encounterKyle Bernarda NIGHTCLUB MANAGER.[employer]ATER Work Phone: NeurologyComment on above:Results ([facility] )Start: 02-07-2023 End: 14-71-9755ukzfigvtzaJX Filiberto Ying Work Phone: [facility] Work Phone: Start: 02-07-2023 End: 04-33-9004Vhvuspp encounter procedureMD Filiberto Ying Work Phone: [facility] [place] Work Phone: Start: 23-18-0714Gxbjol OnlyKyle Bernarda NIGHTCLUB MANAGER.LEADITE HEATER Work Phone: NeurologyStart: 07-88-4774qckhsmuvhxItyl Bernarda NIGHTCLUB MANAGER.[employer] Work Phone: NeurologyComment on above:Labs and rxStart: 01-12-2023 End: 20-19-1600Dmwavzc encounter procedureRobert Menchaca APRN.[employer] HE[employer] Work Phone: NeurologyComment on above:Cervical dystonia (Primary Dx); Neck tightness; RLS (restless legs syndrome)Start: 19-96-4009Zbzjb Marnie Ying Work Phone: [phone]-Evcyd [facility] [address] DO Work Phone: Start: 09-29-5988tgbuyzylduJh. Soraya Cage Facility:[id number]: 21-99-3280uirfodaeqrZuko QuanFacility:[id number]: 11-10-2022 FUV, Provider: Saeed Castellanos, Status: Pen, Time: 8:50 Joaomela Ying Work Phone: [facility] Work Phone: Start: 51-08-5886iajfbxquhuMf. Saeed Castellanos Facility:[id number]: 96-51-3345agzfugviclHb. Saeed Parada II Facility:[id number]: 04-45-3029luclrtpibbEw. Saeed CastellanosFacility: Start: 10-23-2022 End: 37-20-6829thiwhqgmmeKO Filiberto Ying Work Phone: [facility] Work Phone: Start: 10-23-2022 End: 53-52-5394Aiithkn encounter procedureMD Filiberto Hoy Work Phone: [facility] Work Phone: Start: 85-20-8188nvykwnaivzSxlhabr Traboulkymberlyi Facility:[id number]: 10-12-2022 End: 40-51-2961Ochhere encounter procedureMD Filiberto Hoy Work Phone: [facility] Work Phone: Start: 94-13-1372hnavqsnjnuEG FILIBERTO YING .Facility: Start: 67-28-6793DKRTR MONI, Provider: MOOKIE YOUNG BOTTLE WASHING MACHINE OPERATOR 1,[id number], Status: Pen, Time: 1:00 PMDodavion Ying Work Phone: [phone]-Ofqps [facility] 250 DO Work Phone: Start: 90-99-0275Bflyfbt encounter procedureDodavion Ying Work Phone: [phone]-Obfit [facility] 250 DO Work Phone: Start: 76-99-3735wkmomdcwnnCm. Saeed Favio Castellanos Facility:[id number]: 71-14-4168Hzqfub consultation new/estab patient 60 min Filiberto Ying Work Phone: [phone]-Vxqcr [facility] 250 DO Work Phone: Start: 79-96-6316aaqdpctuidBl. Saeed Castellanos Facility:[id number]: 08-11-2022 End: 68-71-7765swvxtanrxqTnbsvyd Sarkar APRN.CNP Work Phone: RheumatologyComment on above:Neck pain, chronic (Primary Dx); FibromyalgiaStart: 08-11-2022 End: 18-35-5549Kijwtgddqxqj consultation with patientScorey Limon APRN.[employer]ADITE HEATER Work Phone: [facility] MAINStart: 07-28-2022 End: 01-04-4327Xoubqrgdxu hospital visit by physicianXr Main U97KbkogvsjmRcgnhtb on above:Neck pain, chronic [M54.2, G89.29]Start: 07-28-2022 End: 06-70-9471Mghlvux encounter procedureScorey Limon APRN.[employer] HEATER Work Phone: RheumatologyComment on above:Neck pain, chronic (Primary Dx)Start: 07-06-2022 End: 75-35-8194alakvbgqemAH CHARISMA COLLAZO .Facility:E4Ueufu: 05-04-2022 ambulatoryDR CHARISMA COLLAZO .Facility:P6Xtzlm: 04-06-2022 End: 21-32-6150didroiamhzLV CHARISMA COLLAZO .Facility:V3Gnvlg: 03-02-2022 End: 66-62-2977yhaaypilomJFHP VIDAL .Facility:Q7Tbkdr: 02-16-2022 End: 21-53-0553jvmaygoqmrTL NAVNEET Bolden WINSTONFacility:M1Trfug: 02-16-2022 End: 56-74-2594qzmkwvtomaON CHARISMA Mckoy COLLAZO .Facility:L8Nktwk: 01-19-2022 End: 80-55-5884Evtcbsr encounter procedureMD Filiberto Ying Work Phone: [facility] CampusStart: 01-09-2022 End: 12-34-2324gmkbhihngtNF FABY COREEN .Facility:Q8Sxxmh: 33-63-1093Afehavzey for general adult medical examination without abnormal findingsDR FILIBERTO HOY . [facility] 12-31-2021 End: 07-53-3518fxhkcxbkyzDZ FILIBERTO HOY .Facility:M1Jkhld: 12-31-2021 End: 32-01-3078Xhtfpwmfy for general adult medical examination without abnormal findingsDR FILIBERTO HOY .Facility:X6Ifbfx: 11-18-2021 End: 80-94-4904Lyrxlbp encounter procedureMD Filiberto Petersy Work Phone: [facility] Main [place] Procedures DateProcedureProcedure DetailPerforming ClinicianStart: 99-37-0898Vdg bact xcpt urine blood/stool aerobic isolEmily Chan Bedolla MD Work Phone: Start: 02-05-9969NPJNVNDhutr Chan Bedolla MD Work Phone: Start: 89-78-3815XZ of abdomen and pelvis without contrastFiliberto Ying MD Work Phone: Start: 39-80-5646Yfemr chest X-rayFiliberto Ying MD Work Phone: Start: 16-72-9500Huhcu nucleic acid assayFiliberto Ying MD Work Phone: Start: 10-52-8612Sdagx chest X-rayFiliberto Ying MD Work Phone: Start: 57-08-1994K-ray of lumbar spine, two or three viewsFiliberto Ying MD Work Phone: Start: 11-83-8290Jsnpjtmuzw of right breastFiliberto Ying MD Work Phone: Start: 39-04-7964Mphtarbwlrcjaoq of right breast Filiberto Ying Work Phone: Start: 44-39-1584Dapbazgvga of breastMD Filiberto Ying Work Phone: Start: 58-10-4274Wqhcdjlwxka of left breastMD Filiberto Ying Work Phone: Start: 63-90-9280Ewsstlcjrgtgpgi of bilateral breasts MD Filiberto Ying Work Phone: Start: 97-46-0819Hmkn needle biopsy of breast using ultrasound guidanceMD Filiberto Ying Work Phone: Start: 62-76-6027RwfdpxvylgmyntteJabuejm Zoe Ying Work Phone: Start: 44-05-1329Ffwjsyutn mammographyMD Filiberto Ying Work Phone: Start: 37-04-7023Tzxpbqpnpbhugsl of bilateral breasts MD Filiberto Ying Work Phone: Start: 87-24-9077Rojxt spine cervical 4 or 5 views Nayely Limon APRN.[employer] HEATER Work Phone: Start: 84-70-4222Xlxpprxxcj exam chest 2 viewsSomirta Limon APRN.[employer]ADITE HEATER Work Phone: Start: 95-01-7088TTX of headMD Filiberto Ying Work Phone: CholecystectomyDouglas M Stepan Work Phone: EsophagogastroduodenoscopyDougxochitl M Stepan Work Phone: HysterectomyDougxochitl M Stepan Work Phone: LaparoscopyDougxochitl M Stepan Work Phone: Tonsillectomy and adenoidectomyFiliberto Ying Work Phone: NEGATED: Highlighted row has not occurred!Total colonoscopyFiliberto Ying Work Phone: Plan of Treatment DateCare ActivityDetailAuthorStart: 67-13-0040Qpvfp microalbumin profile [facility]: 04-14-2025 End: 10-30-2327Zziolwb encounter procedureNOMS BCP OBStart: 03-30-2025 End: 33-95-8291Tfrhyns encounter yvnihutcz17/10/2025 8:00 AM EST Office Visit [facility]lee [facility] [address] [place] [phone] Sis Irby MD [address] [facility] [place] [id number] NOMLeelee Courtney NeurologyStart: 02-18-2025 End: 07-87-2397Mxrwbax encounter qsnlhsovy88/01/2025 11:30 AM EDT Office Visit [facility] [address] [place], [id number] Analilia Adorno MD [address] [place] [address] NOMLeelee Courtney DermatologyStart: 02-06-2025 End: 46-67-1401Kpmyhth encounter procedureNeurologyComment on above:botoxStart: 01-28-2025 End: 82-60-1521Bvbokcn encounter procedureNOMS [place] DermatologyComment on above:ArrivedStart: 01-27-2025 End: 67-74-4754Qnactfe encounter procedureNOMS SWS DERMStart: 01-21-2025 End: 29-85-5329Hgitezq encounter procedureNOMS SWS NEURComment on above:Arrived Start: 95-12-9184Dwzibhkyo vaccinationInfluenza Vaccine (Season Ended)[facility]: 11-27-2024 End: 94-59-7566Pbqhinwccsfq / ancillary services uihtzrtspq12/10/2025 7:15 AM EDT Ancillary Procedure NOMS MR [address] [facility] [place] [phone] NOMS MRStart: 11-25-2024 End: 11-15-0425Qeaxewb encounter procedureNOMS SWS DERMComment on above:Arrived Start: 11-20-2024 End: 82-96-6300MI Cervical spine WO contrastMR cervical spine wo contrast Imaging Routine Cervical dystonia RLS (restless legs syndrome) Expected: 11/20/2024, Expires: 11/20/2025[facility] Work Phone: Comment on above:Expected: 11/20/2024, Expires: 11/20/2025Start: 11-20-2024 End: 21-34-7623Otjkwsg encounter procedureNOMS SWS NEURComment on above:Arrived Start: 11-11-2024 End: 57-13-4513Deuwlms encounter /24/2025 11:35 AM EDT Office Visit [facility] SWS DERM [address] [place] [phone] Ban Bedolla MD [address] [place] [address] ArrivedNOMS SWS DERMComment on above:ArrivedStart: 10-29-2024 End: 91-71-9417Feeslcx encounter dweotseka21/11/2025 4:30 PM EDT Office Visit Neurology [address] [place] [address] David Sullivan MD [address] [place], [place] [address] F/uhold for botoxNeurologyComment on above:F/u hold for botoxStart: 07-30-2024 End: 65-75-3611Dbxybzu encounter nontflmtq93/12/2025 4:30 PM EDT Office Visit Neurology [address] [place] [phone] David Sullivan MD [address] [place] [address] BotoxNeurologyComment on above:BotoxStart: 07-29-2024 End: 81-50-1361Rkmfeaq encounter /11/2025 8:35 AM EDT Office Visit NOMS [facility] [address] [place] [address] Nae Velez APRN-[employer]ADITE HEATER [address] [place] [address] NOMS [facility] DERMStart: 06-17-2024 End: 11-69-5785EooplnlzhPremier Healthtart: 04-30-2024 End: 85-02-8827Dyfpmwj encounter myhtdibst53/11/2024 8:30 AM EST Office Visit Neurology [address] [place] [phone] David Sullivan MD [address] [place] [address] BotoxNeurologyComment on above:BotoxStart: 01-30-2024 End: 91-02-8166Peqkgly encounter vshuzsfmg04/11/2024 2:00 PM EDT Office Visit Neurology [address] [place] [address] David Sullivan MD [address] [place] [address] BotoxNeurologyComment on above:BotoxStart: 63-36-0739Ehvue-19 Vaccine ( season)Covid-19 Vaccine ( season)[facility]: 01-20-2024 Covid-19 Vaccine ( season)Covid-19 Vaccine ( season) [facility]: 50-57-4159Sfwhaknwi vaccinationMarietta Memorial Hospitaltart: 11-06-2023 End: 79-10-1375Qdbljal encounter reggipnku09/18/2024 10:30 AM EDT Office Visit Neurology [address] [place] [address] David Sullivan MD [address] [place] [address] Three week follow upNeurologyComment on above:Three week follow upStart: 10-31-2023 End: 41-03-9162Ixibjzy encounter pebhbktlm04/12/2024 10:30 AM EDT Office Visit Neurology [address] [place] [phone] David Sullivan MD [address] [place], [place] [address] Botox auth approvedNeurologyComment on above:Botox auth approvedStart: 09-21-2023 End: 48-87-1110Kaqxizq encounter fvbqaduof53/03/2024 8:30 AM EDT Office Visit Neurology [address] [place] [phone] David Sullivan MD [address] [place], [place] [address] Cervical dystonia [G24.3]NeurologyComment on above:Cervical dystonia [G24.3] Start: 46-05-9209Dskdlukbzs Health ScreeningBehavioral Health ScreeningMarietta Memorial Hospitaltart: 26-35-1979PtkfadwalPremier Healthtart: 05-15-2023 [facility]: 44-97-9828VvzpvdscbPremier Healthtart: 70-90-8586ORV, Provider: Soraya Cage, Status: Pen, Time: 1:00 PMFUV, Provider: Soraya Cage, Status: Keyur, Time: 1:00 PMMP-[facility] [address] DO Work Phone: Start: 44-79-3266Sxtds-19 Vaccine () Covid-19 Vaccine ()[facility]: 07-87-4318Tbkwrofzr vaccinationMarietta Memorial Hospitaltart: 01-12-2023 End: 89-20-5889CGW panel - Blood by Automated countCBC Lab Routine RLS (restless legs syndrome) Expected: 01/12/2023, Expires: 03/14/2023[facility] Work Phone: comment on above:Expected: 01/12/2023, Expires: 03/14/2023Start: 01-12-2023 End: 06-93-9306Ddgsmeobm (Vitamin B12) [Mass/volume] in Serum or PlasmaVITAMIN B12 BLOOD Lab Routine RLS (restless legs syndrome) Expected: 01/12/2023, Expires: 03/14/2023[facility] Work Phone: comment on above:Expected: 01/12/2023, Expires: 03/14/2023Start: 01-12-2023 End: 38-71-9496Pjoygqdyhjtwn metabolic 2000 panel - Serum or PlasmaCOMP METABOLIC PANEL Lab Routine RLS (restless legs syndrome) Expected: 01/12/2023, Expires: 03/14/2023[facility] Work Phone: comment on above:Expected: 01/12/2023, Expires: 03/14/2023Start: 01-12-2023 End: 08-53-6647Snwinrsk [Mass/volume] in Serum or PlasmaFERRITIN BLD Lab Routine RLS (restless legs syndrome) Expected: 01/12/2023, Expires: 03/14/2023[facility] Work Phone: comment on above:Expected: 01/12/2023, Expires: 03/14/2023Start: 01-12-2023 End: 36-35-4104Wynk and Iron binding capacity panel - Serum or PlasmaIRON + TIBC Lab Routine RLS (restless legs syndrome) Expected: 01/12/2023, Expires: 03/14/2023[facility] Work Phone: comment on above:Expected: 01/12/2023, Expires: 03/14/2023Start: 57-64-1502EQLGSBG, Provider: Soraya Cage, Status: Pen, Time: 4:20 PMNPVRFRL, Provider: Soraya Cage, Status: Pen, Time: 4:[facility] Work Phone: Start: 80-40-0292QJB, Provider: Saeed Castellanos, Status: Pen, Time: 8:50 AMFUV, Provider: Saeed Castellanos, Status: Pen, Time: 8:50 AMMP-[facility] [address] DO Work Phone: Start: 57-49-8721IIJFZQEAD, Provider: Romero Jones, Status: Pen, Time: 2:00 PMSURGNONUH, Provider: Romero Jones, Status: Pen, Time: 2:00 PMLocated within [facility] 250 DO Work Phone: Start: 90-83-0275ZIMDR EMORY, Provider: MOOKIE YOUNG BOTTLE WASHING MACHINE OPERATOR 1,[id number], Status: Pen, Time: 1:00 PMEVENT EMORY, Provider: MOOKIE YOUNG BOTTLE WASHING MACHINE OPERATOR 1,[id number], Status: Pen, Time: 1:00 PMLocated within [facility] [address] DO Work Phone: Start: 05-55-8550UFCWPKLUPC ASSESSMENTDEPRESSION ASSESSMENTMarietta Memorial Hospitaltart: 31-91-4451Oqwkqqhvu vaccinationINFLUENZA (#1) [facility]: 77-79-0969UMN TESTINGHPV TESTINGMarietta Memorial Hospitaltart: 29-45-6863Zehvenxqj for malignant neoplasm of cervixHPV TestingGreen Cross Hospital Start: 61-69-2763QDW TESTINGPAP TESTINGMarietta Memorial Hospitaltart: 01-07-2008 Screening for malignant neoplasm of cervixMarietta Memorial Hospitaltart: 2006 Hepatitis B Vaccine (1 of 3 - 19+ 3-dose series)Hepatitis B Vaccine (1 of 3 - 19+ 3-dose series)[facility]: 16-66-6825Xsvnsww ScreeningAnxiety ScreeningMarietta Memorial Hospitaltart: 21-37-2895Fgojueyiua ScreeningDepression ScreeningMarietta Memorial Hospitaltart: 20-97-4571SZLSNIWLD C SCREENINGHEPATITIS C SCREENINGMarietta Memorial Hospitaltart: 04-19-7487Rbxuztbgi C screeningHepatitis C ScreeningMarietta Memorial Hospitaltart: 88-84-9151BSO SCREENINGHIV SCREENINGMarietta Memorial Hospitaltart: 59-92-3192BED screeningHIV ScreeningMarietta Memorial Hospitaltart: 89-50-8333TEVRN-19 VACCINE (#1)COVID-19 VACCINE (#1)[facility]: 04-75-1842GFRNUFQNM B (1 of 3 - 3-dose series)HEPATITIS B (1 of 3 - 3-dose series)[facility]: 95-86-0104Qbkmygcnn B Vaccine (1 of 3 - 3-dose series)Hepatitis B Vaccine (1 of 3 - 3-dose series)[facility] Cross HospitalAerobic cultureAerobic culture Microbiology Timed Cellulitis of left thumb Release Upon Ordering for 1 Occurrencesstarting 01/21/2025[facility] Work Phone: comment on above:Release Upon Ordering for 1 Occurrences starting 01/21/2025Patient EducationMarion Hospital Ctr Work Phone: [facility] referralMarion Hospital Ctr Work Phone: [facility] Immunizations Immunization DateImmunizationNotesCare QhfifgtoUplzrawp18-34-1630jwwublq toxoid, reduced diphtheria toxoid, and acellular pertussis vaccine, adsorbedXr A21 Green Cross HospitalQtiotc78-59-3360oiavpvn toxoid, reduced diphtheria toxoid, and acellular pertussis vaccine, adsorbedXr V49UrxppobntLutheran Hospital Payers DatePayer CategoryPayerPolicy [id number] Care HMO (unspecified) [id number].70110-42-8141Czcuclz Health Insurance1.2.840.144858.1.13.159.2.7.3.947766.64985-17-0858Zyiiqja Health [id number] 2023Medicaid [place] MED[place] [facility] MEDICAID [id number] 2022-[facility] [phone] [address] [place] [address] Medicaid [id number] 2.16.840.1.108860.3.57[id number] 2.16840.1.832127.3.579.2.33539-46-1404Bnfwwac6269425 2.16840.1.864650.3.579.2.64143-58-8822Cmuorrj3002961 2.16.840.1.263641.3.579.2.73824-86-0608Qkpmoko9853735 2.16.840.1.167974.3.579.2.74588-73-4392Vjctnjx7251724 2.16.840.1.381092.3.579.2.26601-73-3603Ufshvsq3122893 2.16.840.1.787745.3.579.2.26800-96-8581Fvmimfh8438389 2.16.840.1.134412.3.579.2.19926-28-8516Jucieyi0709025 2.16.840.1.366724.3.579.2.82838-33-5044Jogzzcc33910525 2.16840.1.963516.3.579.2.1[id number] 2.16.840.1.406553.3.579.2.63966-60-7393Ogdcfnk341453634 2.16.840.1.186532.3.579.2.92578-25-4561Roiskec853153893 2.16.840.1.662453.3.579.2.49459-86-9457Gvxsxsl363007465 2.16.840.1.746205.3.579.2.83081-77-9671Lujdvgb947407483 2.16.840.1.815106.3.579.2.64660-60-8718Zdtipwz135379529 2.16840.1.633938.3.579.2.46615-84-3257Xbjrvja485476838 2.840.1.422570.3.579.2.53281-12-7404Dtjmsvj477781893 2.16840.1.434183.3.579.2.47288-71-4574Cpfluxi34795716 2.16840.1.476206.3.579.2.377605-32-3240Rlcfwyr63727338 2.16.840.1.517788.3.579.2.146961-67-0367Dfmlhvp71746576 2.16840.1.355385.3.579.2.254102-32-8825Hetwhpl18524672 2.16.840.1.512726.3.579.2.666182-84-1759Mowjpcm80872986 2.16840.1.158865.3.579.2.470418-88-2194Srdydle84318441 2.16.840.1.809540.3.579.2.088312-24-8670Gkqivts32430900 2.16840.1.282884.3.579.2.484184-46-9618Dykwurh4133645 2.0.1.528232.3.579.2.1259 [id number] [id number] /TGGHK494P56525 w3c82u33-574e-5i4k-7355-22rt6788a55pPkgcqrt14y4kb81-9955-6w29-8152-5d2f9a0717b4 [id number] 2.16.840.1.294313.3.579.2.920Qrvkwnh60445930 2..840.1.068983.3.579.2.293Uuehzst53536166 2..840.1.207798.3.579.2.531 Mgebljl25354340 2.16.840.1.088087.3.579.2.531 Social History DateTypeDetailFacilityStart: 12-24-2020 End: 57-62-3773Eeflmyx smoking status NHISNever smoked tobacco (finding) [facility]: 94-91-6450Ewa Assigned At BirthFeOhioHealth Berger Hospitaltart: 06-13-2012 End: 30-51-0677Gyztisp use and exposureSmokeless tobacco non-userGreen Cross Hospital Work Phone: Start: 07-28-2022 End: 39-31-5297Zpjasfx intakeCurrent non-drinker of alcohol (finding)[facility]: 01-12-2023 End: 87-53-8754Ro caffeine useNo caffeine useMarietta Memorial Hospitaltart: 01-12-2023 End: 93-82-9834Qormyhu use panelMarietta Memorial Hospitaltart: 46-26-9755Zyhtz Depression Screening Sajyibxktr1Afmtjsyma ClinicStart: 67-33-0608Ocglbn identity Identifies as female gender (finding)[facility]: 38-80-4789Venrrw orientationHeterosexual (finding)[facility]: 06-11-2024 End: 60-43-3765FdhBaucqw (finding)[facility]: 06-23-2024 End: 30-70-1758Bghjfxaha beverage intakeLifetime non-drinker (finding)[facility] HealthcareStart: 61-40-5820Qzaufiz CommentCaffeine: noneNOMS HealthcareStart: 79-93-7465Zao assigned at birthNot on fileNOSD HealthcareNEGATED: Highlighted [facility] Goals DatePatient GoalDesired Activity/State Clinical Notes 02-16-2022 to 02-23-2025 Note Date & KbiqAsnqCcqdmbld21-40-6867 NoteHNO ID: [id number] Author: DAVID SULLIVAN MD Service: ? Author Type: Physician Type: Progress Notes Filed: 02/23/2025 10:54 Note Text: BOTOX PREEMPT PROTOCOL Total headache days per month: Bad once / week, Tends to take 1-2 weeks to kick in and 1-2 weeks before visit wears OFF Severity of headaches: Mild background daily headache partially related to neck muscles, severe 1/week PRN meds: Daily (tylenol, motrin) Botox effective: YES The risks, benefits and anticipated outcomes of the procedure, the risks and benefits of the alternatives to the procedure, and the roles and tasks of the personnel to be involved, were discussed with the patient. The patient has given written informed consent to the procedure and agrees to proceed. Yes Treatment # 5 with me, 10+ in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 patient, tynl-ey-ypgd patient care, completing clinical documentation, obtaining and/or reviewing separately obtained history, performing a medically appropriate examination, counseling and educating the pat ient/family/caregiver, and ordering medications, tests, or procedures. There is no problem list on file for this patient. Office Visit on 01/12/23 CBC FERRITIN BLD IRON + TIBC VITAMIN B12 BLOOD COMP METABOLIC PANEL CONSULT TO NEUROLOGY Robert Menchaca MSN, NIGHTCLUB MANAGER, TRANSPORTATION DEPARTMENT HEAD-C 1. The nursing staff and medical assistants [...] and wish to discuss any issues directly withme, please feel free to obtain one. 2. [...] of your PCP/referring physician documented in this encounterGreen Cross Hospital03-24-2023 Instructions* Patient Instructions* Nayely Limon APRN.CNP - 08/11/2022 10:44 AM EDT Please send MRI result to us. Placed a consult for neuromuscular. Please call [phone] for appointments. I would suggest to bring your MRI (CD) to this appointment. Placed a consult for functional medicine. Please call [phone] for appointments. Follow up as needed documented in this encounterGreen Cross Hospital03-24-2023 History of Present illness Narrative* Nayely Limon APRN.ZULMA - 08/11/2022 10:00 AM EDT Images from the original note were not included. Rheumatology FOLLOW UP VISIT Date of Service: 08/11/2022 Patient: Brittanie Garcia Medical Record: [id number] Primary Care Physician: Filiberto Ying MD Last Rheumatology visit: 07/28/2022 (with Nayely Limon) I have communicated my name and active licensure. The patient's identity and physical location wereverified at the time of this visit. Either the patient or their legal employee relations representative has been informed of the risks and benefits of -- and alternatives to -- treatment through a remote evaluation andconsents to proceed with the evaluation remotely. History [...] result was unremarkable. Pt few years ago whichdid not help. 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 Started Seeing pain management since April for headache and neck pain. She has Lena takes once a week. Hx of restless leg syndrome. no known Family hx autoimmune disorder Denies any Chest pain, shortness of breath, history of pleural effusion or pericarditis, oral/nasalulcers, photosensitivity, rash, history of DVT/PE/&or miscarriages, renal [...] 5 5 Location Neck - Neck Description Aching;Dull;Sore;Spasm;Stiffness;Throbbing;Tightness - Aching;Cramping;Dull;Sharp;Spasm;Throbbing;Tightness Duration (#) 7 - 3 Duration (Timeframe) Weeks - Weeks Frequency Continuous Continuous Continuous Intervention Medication;Reposition - Medication;Relaxation;Heat Patient-Entered Data PROMIS Assessments PROMIS Global Health - (T-Scores - the mean of general population = 50. Five points is a clinicallymeaningful difference.) 07/28/2022 Physical T-Score 32.4 Mental T-Score [...] the homunculus. Go to the Rheumatology activity andcomplete the homunculus joint exam. Joint Exam 08/11/2022 [...] to that. XR was negative. Instructed patient tosend MRI results to us PMHx significant for [...] a therapist. Discussed PT will be beneficial. Interestedin pool therapy. She will do it locally. Patient filled out the the Clinical Fibromyalgia Diagnostic Criteria questionnaire Questionnaire scores: [place] sleepiness scale: 15 (Normal < 10) MDQ (mood disorder questionnaire): 6 (Normal < 7) PHQ (patient health questionnaire): depression 10 (Normal < 5), anxiety 9 (Normal < 5) Fibromyalgia evaluation: Wide spread pain scale (WPI) 7, symptom severity (SS) 9 The patient meets the 2016 ACR ([employer] [employer]) revised criteria for fibromyalgia(WPI 7 AND SS 5) or (WPI 4-6 AND SS 9) with a WPI of 7 and SS of 9 [REFERENCE: David Campbell, Madan Dobson, Mary Brian, Gurpreet Sainz, Lex akers, Uriel Celestin, Emile Tesfaye, Florentino Manuel, Joao Manuel, Amadeo Her. 2016 Revisionsto the 2010/2011 fibromyalgia diagnostic criteria. Semin Arthritis Rheum. 2016 Dec;46(3):319-329]. Fibromyalgia is a manifestation of central sensitization, which is associated with abnormal centralprocessing of various peripheral stimuli, including pain Fibromyalgia [...] an optimal response to treatment. Nayely Limon APRN.LEADITE HEATER Return if symptoms worsen or fail to improve. I spent a total of 45 minutes on the date of the service which included preparing to see the patient, completing clinical documentation, obtaining and/or reviewing separately obtained history, performing a medically appropriate examination, counseling and educating the patient/family/caregiver, andordering medications, tests, or procedures. Nayely Limon APRN.CNP Rheumatology Date: August 11, 2022 Time: 8:44 AM [facility] Instructions* Patient Instructions* Nayely Limon APRN.CNP - 07/28/2022 1:58 PM EST Obtain lab and XR today Follow up in 10-14 days documented in [facility] History of Present illness Narrative* Nayely Limon APRN.CNP - 07/28/2022 1:00 PM EST Images from the original note were not included. Rheumatology CONSULTATION Date of Service: 07/28/2022 Patient: Brittanie Garcia Medical Record: [id number] Primary Care Physician: Filiberto Ying MD, MD Last Rheumatology visit: 07/28/2022 (with Nayely Limon) Referring Provider: Kenna Sheehan [address] [facility] [address] [place] [id number] Brittanie Garcia is here today at request of Kenna Sheehan PA-C specifically for consultation of my opinion in regards to the chief complaint listed below. Correspondence will be [facility] or through regular mail, [...] result was unremarkable. Pt few years ago whichdid not help. 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 Started Seeing pain management since April for headache and neck pain. She has Lena takes once a week. Hx of restless leg syndrome. no known Family hx autoimmune disorder Denies any Chest pain, shortness of breath, history of pleural effusion or pericarditis, oral/nasalulcers, photosensitivity, rash, history of DVT/PE/&or miscarriages, renal [...] Score 6 5 Location Neck - Description Aching;Dull;Sore;Spasm;Stiffness;Throbbing;Tightness - Duration (#) 7 - Duration (Timeframe) Weeks - Frequency Continuous Continuous Intervention Medication;Reposition - Patient-Entered Data PROMIS Assessments PROMIS Global Health - (T-Scores - the mean of general population = 50. Five points is a clinicallymeaningful difference.) 07/28/2022 Physical T-Score 32.4 Mental T-Score [...] Take 1 mg by mouth once daily. Utvibvbg-Du-Fmn-Fe-FA (P-D CARTER PLUS) Tab Take 1 tablet [...] - XR CHEST 2V FRONTAL/LAT Nayely Limon APRN.LEADITE HEATER Return in about 10 days (around 08/07/2022). I spent a total of 75 minutes on the date of the service which included preparing to see the patient, fjkb-io-mhep patient care, completing clinical documentation, obtaining and/or reviewing separately obtained history, performing a medically appropriate examination, counseling and educating the pat ient/family/caregiver, and ordering medications, tests, or procedures. Medical Decision Making: Problems: Low: Stable chronic illness Data: Unique test(s) ordered: 3+ Assessment requiring an independent historian(s) Risk: Moderate: Moderate risk from testing/treatment Medical Decision Making Level: 4 - Moderate Nayely Limon APRN.CNP Rheumatology Date: July 26, 2022 Time: 2:07 PM documented in this encounterGreen [facility]02-[facility]23 NoteCONSULTATION CONSULTATION DATE: 07/06/2022 HISTORY OF PRESENT ILLNESS: [...] no difference. She was also started on Lena 5/325 daily p.r.n., which she says is helpful. We obtained a cervical x-ray back in January, which shows very minimal pathology between C2 and C3 discs. At this time, procedures are not indicated. Medications includes Lena 5/325 daily, baclofen 10 mg b.i.d., Ambien [...] time, our clinic will just maintain her Lena 5/325 daily p.r.n. She will continue for treatments with [facility]. I did recommend, however, to continue with self massage and to trial home cervical traction. We will see the patient in three months' time to maintain her medications and patient is in agreement.[facility] [id number] NoteCONSULTATION PAIN MANAGEMENT CONSULTATION CONSULTATION DATE: 04/06/2022 HISTORY [...] stated that today she has seen an public weigher due to having lock jaw episodes. Activities [...] phone visit, as she agrees to this plan.[facility] [id number] NoteCONSULTATION CONSULTATION DATE: 03/02/2022 HISTORY OF PRESENT ILLNESS: [...] to this and all questions are answered today.[facility] [id number] NoteCONSULTATION CONSULTATION DATE: 02/16/2022 HISTORY OF PRESENT ILLNESS: [...] worsened at that time. 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 Patient is in agreement to this.[facility] complaint Narrative - Reported* BRITTANIE GARCIA is being seen for an initial evaluation of syncope. * 37-year-old healthy female seen in cardiology consultation at the request of Dr. Ying for recurrent syncopal episodes. She describes 7 or 8 episodes of syncope with a prodrome of nausea, feeling heated, warm, clammy and occasionally with emesis and then passing out very briefly. Similar to 2014 thissounds like classic vasovagal syncope. She has not seen cardiology since 2013. She has no stressorsin her life at this point time, she denies any syncope while driving as she has the clinical prodrome. She has had previous Holter monitoring and echocardiography in the past which have not revealed any arrhythmias or structural heart disease. She denies angina, stroke or thromboembolic disorder, she has no family history of autonomic dysfunction or syncopal episodes or arrhythmias. * Her ECG today is normal. Her QT corrected interval is normal. * Once again we have reviewed vasovagal syncope diagnosis and treatment including compression stockings, hydration. She was on propanolol for some period of time but was taken off of this for unknown reason I believe placed on it for palpitations in the remote past. Notably she has no rebound tachycar suzette. * Recommendations, obtain [employer] monitoring, tilt table test, refer to either EP or syncope clinic, I can follow-up on a as needed basis, as there is no interventional necessity at this time Located within [facility] [address] DO Work Phone: Chief complaint Narrative - Reported* BRITTANIE GARCIA is being seen for an initial evaluation of syncope. * 37-year-old healthy female seen in cardiology consultation at the request of Dr. Ying for recurrent syncopal episodes. She describes 7 or 8 episodes of syncope with a prodrome of nausea, feeling heated, warm, clammy and occasionally with emesis and then passing out very briefly. Similar to 2014 thissounds like classic vasovagal syncope. She has not seen cardiology since 2013. She has no stressorsin her life at this point time, she denies any syncope while driving as she has the clinical prodrome. She has had previous Holter monitoring and echocardiography in the past which have not revealed any arrhythmias or structural heart disease. She denies angina, stroke or thromboembolic disorder, she has no family history of autonomic dysfunction or syncopal episodes or arrhythmias. * Her ECG today is normal. Her QT corrected interval is normal. * Once again we have reviewed vasovagal syncope diagnosis and treatment including compression stockings, hydration. She was on propanolol for some period of time but was taken off of this for unknown reason I believe placed on it for palpitations in the remote past. Notably she has no rebound tachycar suzette. * Recommendations, obtain [employer] monitoring, tilt table test, refer to either EP or syncope clinic, I can follow-up on a as needed basis, as there is no interventional necessity at this time [facility] Work Phone: Chifr complaint Narrative - Reported* BRITTANIE GARCIA is being seen for an initial evaluation of syncope. * 37-year-old healthy female seen in cardiology consultation at the request of Dr. Ying for recurrent syncopal episodes. She describes 7 or 8 episodes of syncope with a prodrome of nausea, feeling heated, warm, clammy and occasionally with emesis and then passing out very briefly. Similar to 2013 thissounds like classic vasovagal syncope. She has not seen cardiology since 2013. She has no stressorsin her life at this point time, she denies any syncope while driving as she has the clinical prodrome. She has had previous Holter monitoring and echocardiography in the past which have not revealed any arrhythmias or structural heart disease. She denies angina, stroke or thromboembolic disorder, she has no family history of autonomic dysfunction or syncopal episodes or arrhythmias. * Her ECG today is normal. Her QT corrected interval is normal. * Once again we have reviewed vasovagal syncope diagnosis and treatment including compression stockings, hydration. She was on propanolol for some period of time but was taken off of this for unknown reason I believe placed on it for palpitations in the remote past. Notably she has no rebound tachycar suzette. * Recommendations, obtain [facility] monitoring, tilt table test, refer to either EP or syncope clinic, I can follow-up on a as needed basis, as there is no interventional necessity at this time Located within [facility] [address] DO Work Phone: Chief complaint Narrative - Reported* BRITTANIE GARCIA is being seen for an initial evaluation of syncope. * 37-year-old healthy female seen in cardiology consultation at the request of Dr. Ying for recurrent syncopal episodes. She describes 7 or 8 episodes of syncope with a prodrome of nausea, feeling heated, warm, clammy and occasionally with emesis and then passing out very briefly. Similar to 2013 thissounds like classic vasovagal syncope. She has not seen cardiology since 2013. She has no stressorsin her life at this point time, she denies any syncope while driving as she has the clinical prodrome. She has had previous Holter monitoring and echocardiography in the past which have not revealed any arrhythmias or structural heart disease. She denies angina, stroke or thromboembolic disorder, she has no family history of autonomic dysfunction or syncopal episodes or arrhythmias. * Her ECG today is normal. Her QT corrected interval is normal. * Once again we have reviewed vasovagal syncope diagnosis and treatment including compression stockings, hydration. She was on propanolol for some period of time but was taken off of this for unknown reason I believe placed on it for palpitations in the remote past. Notably she has no rebound tachycar suzette. * Recommendations, obtain [employer] monitoring, tilt table test, refer to either EP or syncope clinic, I can follow-up on a as needed basis, as there is no interventional necessity at this time [facility] Work Phone: Evaluation noteNo assessment information available [facility] Work Phone: Evaluation note* Diagnosis Neck pain, chronic Cervicalgia [facility] Diagnosis Neck pain, chronic- Primary Cervicalgia [facility]* Diagnosis Neck pain, chronic- Primary Cervicalgia Fibromyalgia Mylagia and myositis, unspecified [facility]* Diagnosis Cervical dystonia- Primary Spasmodic torticollis Neck tightness Unspecified musculoskeletal disorders and symptoms referable to neck RLS (restless legs syndrome) Restless legs syndrome (RLS) documented [facility] this encounter [facility]* Diagnosis Onset Date Resolution Status Left breast mass acute [facility] Work Phone: Evaluation note* Diagnosis Cervical dystonia- Primary Spasmodic torticollis [facility]* Diagnosis Chronic migraine without aura, with intractable migraine, so stated, with status migrainosus- Primary Neck pain Cervicalgia RLS (restless legs syndrome) Restless legs syndrome (RLS) documented [facility] this [facility]* Diagnosis Chronic migraine without aura, with intractable migraine, so stated, with status migrainosus- Primary Neck pain Cervicalgia [facility]* Diagnosis Chronic migraine without aura, with intractable migraine, so stated, with status migrainosus- Primary Neck pain Cervicalgia [facility]* Diagnosis Fibroadenoma of breast, right- Primary [facility] Diagnosis Chronic migraine without aura, with intractable migraine, so stated, with status migrainosus- Primary Neck pain Cervicalgia [facility] Diagnosis Onset Date Resolution Status Admit Date Cervical spondylosis acuteJune 2024 3:41pmHeadache, chronic migraine without aura, intractable acuteJune 2024 3:41pmOccipital neuralgiaacuteJune 2024 3:41pmOther chronic painacuteJune 2024 3:41pm [facility] Work Phone: Evaluation note* Diagnosis Other rosacea- Primary documented in this encounter [facility]* Diagnosis Other rosacea- Primary Inflamed skin tag documented in this encounter [facility]* Diagnosis Cervical dystonia- Primary Spasmodic torticollis RLS (restless legs syndrome) Restless legs syndrome (RLS) documented in this encounter [facility]* Diagnosis Cellulitis of left thumb- Primary documented in this encounter [facility]* Diagnosis RLS (restless legs syndrome)- Primary Restless legs syndrome (RLS) Cervical dystonia Spasmodic torticollis Cervicogenic headache Headache Intractable chronic migraine without aura and with status migrainosus documented in this encounter [facility]* Diagnosis Other rosacea- Primary Cellulitis of left thumb documented in this encounter [facility]* Diagnosis Intractable chronic migraine without aura and with status migrainosus- Primary documented in this encounter [facility]* Diagnosis Intractable chronic migraine without aura and with status migrainosus [facility] Additional Instructions DISCHARGE INSTRUCTIONS [...] directed for pain unless a prescription was provided.[facility] Work Phone: Hospital Discharge instructions [...] directed for pain unless a prescription was provided.[facility] Work Phone: Hospital Discharge instructions Additional Instructions If your symptoms return/worsen or you develop any further concerns or symptoms please see your doctor or return to the emergency department immediately. It is imperative that you go over today's visit and all results with your primary care provider.[facility] Work Phone: Reason for referral (narrative)* Diagnostic Procedure Only (Routine) - ClosedSpecialtyDiagnoses / ProceduresReferred By Contact Referred To ContactXR IMAGING Diagnoses Neck pain, chronic Procedures XR CERV OTHER 4V AP/LAT/OBL RADEX SPINE CERVICAL 4 OR 5 VIEWS Nayely Limon APRN.LEADITE HEATER [address] [phone] Xr Imaging Referral IDStatusReasonStart DateExpiration DateVisits RequestedVisits [id number] Auto-Generated Referral [facility] for referral (narrative)* Diagnostic Procedure Only (Routine) - ClosedSpecialtyDiagnoses / ProceduresReferred By ContactReferred To ContactXR IMAGING Diagnoses Neck pain, chronic Procedures XR CERV OTHER 4V AP/LAT/OBL RADEX SPINE CERVICAL 4 OR 5 VIEWS Nayely Limon APRN.CNP [address] [place] [address] Xr Imaging Referral IDStatusReasonStart DateExpiration DateVisits RequestedVisits [id number] Auto-Generated Referral [facility] for visit Narrative* Diagnostic Procedure Only (Routine) - ClosedSpecialtyDiagnoses / ProceduresReferred By ContactReferred To Contact XR IMAGING Diagnoses Neck pain, chronic Procedures XR CERV OTHER 4V AP/LAT/OBL RADEX SPINE CERVICAL 4 OR 5 VIEWS Nayely Limon APRN.LEADITE HEATER [address] [place] [address] Xr Imaging Referral IDStatusReasonStart DateExpiration DateVisits RequestedVisits [id number] Auto-Generated Referral [facility] Chief Complaint and Reason for Visit Chief Complaint g43.709 G25.81 R79.0 D50.9 Chief Complaint N63.20 N63.13 r55 Chief Complaint g25.81 Chief Complaint g25.81 n63.10 n63.20Reason for VisitLeft breast mass Chief Complaint g25.81 n63.10 n63.20 Bilateral Breast MassesReason for VisitLeft breast mass Chief Complaint n63.10 n63.20 Bilateral Breast Masses Bilateral Breast MassesReason for VisitLeft breast mass Chief Complaint N63.11 N63.14 Chief [...] spams, back pain, cough, fever [facility] 2024 7:42am Chief Complaint Admit Date Neck Spasms June 19, 2024 1 :44pm neck spams, back pain, cough, fever [facility] 2024 7:42am chest pain/rt rib & arm pain September 17, 2024 5:00am Chief Complaint Admit Date neck spams, back pain, cough, fever [facility] 2024 7:42am chest pain/rt rib & arm pain September 17, 2024 5:00am Ref Dr Ying neck pain October 22, 2024 3:41 pm Reason for Visit Admit Date Cervical spondylosis October 22, 2024 3:41 pm Headache, chronic migraine without aura, intractable October 22, 2024 3:41pm Occipital neuralgia October 22, 2024 3:41p m Other chronic pain October 22, 2024 3:41p m Advance Directives Advance Directive Response Recorded Date/ Time Advance Directives No August 04 7:56am Advance Directive Response Recorded Date/ Time Advance Directives No August 04 6:56am Reason for Referral SpecialtyDiagnoses / ProceduresReferred By ContactReferred To ContactNeurology Diagnoses Neck pain, chronic Procedures CONSULT TO NEUROLOGY OFFICE/OUTPATIENT [facility] 60-74 MINUTES Nayely Limon APRN.LEADITE HEATER [address] [phone] Referral IDStatusReasonStart DateExpiration DateVisits RequestedVisits [id number] PCP Requested Referral /[id number] / ProceduresReferred By ContactReferred To Contact Diagnoses Fibromyalgia Procedures CONSULT TO FUNCTIONAL MEDICINE OFFICE/OUTPATIENT [facility] 60-74 MINUTES Nayely Limon APRN.LEADITE HEATER [address] [place] [address] Referral IDStatusReasonStart DateExpiration DateVisits RequestedVisits [id number] PCP Requested Referral [id number] / ProceduresReferred By ContactReferred To ContactNeurology Diagnoses Cervical dystonia Neck tightness Procedures CONSULT TO NEUROLOGY OFFICE/OUTPATIENT [facility] 60-74 MINUTES Robert Menchaca, NIGHTCLUB MANAGER.LEADITE HEATER [address] [place] [phone] Referral IDStatusReasonStart DateExpiration DateVisits RequestedVisits [id number] Review PCP Requested Referral /[id number] / ProceduresReferred By ContactReferred To ContactNeurology Diagnoses Cervical dystonia Procedures CONSULT TO NEUROLOGY OFFICE/OUTPATIENT [facility] 60 MINUTES Robert Menchaca, NIGHTCLUB MANAGER.LEADITE HEATER [address] [place] [address] Referral IDStatusReasonStart DateExpiration DateVisits RequestedVisits [id number] PCP Requested Referral / Summary Purpose Family History Relationship Condition Age at Onset Recorded Date/T claudette Not Specified No pertinent family history Unknown fatherHistory of deep venous thrombosisUnknownUnknown Family Member Name Dates Details Family history of migraine h eadaches: Mother(V17.2, Z82.0) Status:ActiveFamily history of hyperlipidemia: Father(V18.19, Z83.438) Status:ActiveHypertension, benign: Father Status:ActiveNo Family History Records Found Additional Source Comments Care Teams (unrecognized sec tion and content) Team Status: Active Member Role Status Dates Filiberto Ying MD Primary Care Provider Active Team Status: Inactive Member Role Status Dates Filiberto Ying MD Primary Care Provider Active Roseanne Castellanos DOAttending ProviderActiveMovianey Jones , MDReferring ProviderActive Team Status: Inactive Member Role Status Dates Filiberto Ying MD Primary Care Provider Active Dano Pyle DOAttozzie ProviderActive Team Status: Inactive Member Role Status Dates Filiberto Ying MD Primary Care Provider Active Sydnee Cruz ProviderActiveTeam MemberRelationshipSpecialty Start DateEnd Date Filiberto Ying MD PCP - GeneralFamily Medicine06/05/12 Kenna Sheehan PA-C [address] [place] [address] ReferringNeurology07/19/22Team MemberRelationshipSpecialtyStart DateEnd Date Filiberto Ying MD PCP - GeneralFamily Medicine06/05/12 Kenna Sheehan PA-C [address] [place] [address] ReferringNeurology07/19/22Team MemberRelationshipSpecialtyStart DateEnd Date Filiberto Ying MD PCP - GeneralFamily Medicine06/05/12 Kenna Sheehan PA-C [address] [place] [address] ReferringNeurology07/19/22Team MemberRelationshipSpecialtyStart DateEnd Date Filiberto Ying MD PCP - GeneralFamily Medicine06/05/12 Kenna Sheehan PA-C [address] [address] ReferringNeurology07/19/22Team MemberRelationshipSpecialtyStart DateEnd Filiberto Ying MD PCP - GeneralFadely Medicine06/05/12 Kenna Sheehan PA-C [address] [phone] ReferringNeurology07/19/22Team MemberRelationshipSpecialtyStart DateEnd Date Filiberto Ying MD [facility] - [facility]06/05/12 Kenna Sheehan PA-C [address] [phone] ReferringNeurology07/19/22Team MemberRelationshipSpecialtyStart DateEnd Filiberto Ying MD PCP - GeneralSh[facility] Medicine06/05/12 Kenna Sheehan PA-C [address] [phone] ReferringNeurology07/19/22 Team Status: Inactive Member Role Status Dates Filiberto Ying MD Primary Care Provider Active Robert Menchaca APRN TRANSPORTATION DEPARTMENT HEAD-BCAttending ProviderActiveTeam MemberRelationship SpecialtyStart DateEnd Filiberto Ying MD PCP - GeneralSh[facility] Medicine06/05/12 Kenna Sheehan PA-C [address] [address] ReferringNeurology07/19/22Team MemberRelationshipSpecialtyStart DateEnd Date Filiberto Ying MD PCP - GeneralFamily Medicine06/05/12 Kenna Sheehan PA-C [address] [phone] ReferringNeurology3Team MemberRelationshipSpecialtyStart DateEnd Date Filiberto Ying MD PCP - GeneralFami Medicine06/05/12 Kenna Sheehan PA-C [address] [phone] ReferringNeurology3Team MemberRelationshipSpecialtyStart DateEnd Date Filiberto Ying MD PCP - GeneralFamily Medicine06/05/12 Kenna Sheehan PA-C [address] [phone] ReferringNeurology07/19/22Team MemberRelationshipSpecialtyStart DateEnd Date Filiberto Ying MD PCP - GeneralFamily Medicine06/05/12 Kenna Sheehan PA-C [address] [phone] ReferringNeurology07/19/22Team MemberRelationshipSpecialtyStart DateEnd Date Filiberto Ying MD [facility] - [facility]12 Kenna Sheehan PA-C [address] [place] [address] ReferringNeurology07/19/22Team MemberRelationshipSpecialtyStart DateEnd Date Filiberto Ying MD [facility] - [facility]12 Kenna Sheehan PA-C [address] [place] [address] ReferringNeurology07/19/22 Team Status: Inactive Member Role Status Dates Filiberto Ying MD Primary Care Provider Active Start: January 28, 2024 End: January 28, 2024Fredric Alis Pyle ProviderActiveStart: January 28, 2024 End: January 28, 2024Team MemberRelationshipSpecialtyStart DateEnd Date Filiberto Ying MD [facility]/12 Kenna Sheehan PA-C [address] [place], [place] [id number] ReferringNeurology07/19/22 Team Status: Inactive Member Role Status Jazmine Ying MD Primary Care Provider Active Start: June 10, 2024 End: June 10, 2024Fredric DO JonasAttending ProviderActiveStart: June 10, 2024 End: June 10, 2024 Team Status: Inactive Member Role Status Jazmine Ying MD Primary Care Provider Active Start: June 17, 2024 End: June 17, 2024FrAlis Gregorio ProviderActiveStart: June 17, 2024 End: June 17, 2024 Team Status: Inactive Member Role Status Jazmine Ying MD Primary Care Provider Active Start: June 19, 2024 End: June 19rtGeorgette Henriquez ProviderActiveStart: June 19, 2024 End: June 19, 2024Team MemberRelationshipSpecialtyStart DateEnd Date Filiberto Ying MD [address] [place] [address] [facility]12/12/22Team MemberRelationshipSpecialtyStart DateEnd Date Filiberto Ying MD PCP - GeneralFamily Medicine06/05/12 Kenna Sheehan PA-C [address] [place] [address] ReferringNeurology07/19/22 Team Status: Inactive Member Role Status Jazmine Ying MD Primary Care Provider Active Start: August 01, 2024 End: August 01Sami Soto ProviderActiveStart: August 01, 2024 End: August 01, 2024 Team Status: Inactive Member Role Status Jazmine Ying MD Primary Care Provider Active Start: September 17, 2024 End: September 17, 2024Sami Hanson ProviderActiveStart: September 17, 2024 End: September 17, 2024 Team Status: Inactive Member Role Status Jazmine Ying MD Primary Care Provider Active Start: October 22, 2024 End: October 22, 2024Levi Capellan ProviderActiveStart: October 22, 2024 End: October 22, 2024Team MemberRelationshipSpecialtyStart DateEnd Date Filiberto Ying MD PCP - GeneralFamily Medicine06/05/12 Kenna Sheehan PA-C [address] [place] [address], [place] [address] ReferringNeurology07/19/22Team MemberRelationshipSpecialtyStart DateEnd Date Filiberto Ying MD PCP - GeneralFamily Medicine12/12/22Team MemberRelationshipSpecialtyStart DateEnd Date Filiberto Ying MD PCP - GeneralFamily Medicine12/12/22Team MemberRelationshipSpecialtyStart DateEnd Date Filiberto Ying MD [address] [place] [address] PCP - GeneralFamily Medicine12/12/22Team MemberRelationshipSpecialtyStart DateEnd Date Filiberto Ying MD [address] [place] [address] PCP - GeneralFamily Medicine12/12/22Team MemberRelationshipSpecialtyStart DateEnd Date Filiberto Ying MD [address] [place] [address] PCP - GeneralFamily Medicine12/12/22Team MemberRelationshipSpecialtyStart DateEnd Date Filiberto Ying MD [address] [place] [address] PCP - GeneralFamily Medicine12/12/22Team MemberRelationshipSpecialtyStart DateEnd Date Filiberto Ying MD [address] [place] [address] PCP - GeneralFamily Medicine12/12/22Team MemberRelationshipSpecialtyStart DateEnd Date Filiberto Ying MD [address] [place] [address] PCP - GeneralFamily Medicine12/12/22Team MemberRelationshipSpecialtyStart DateEnd Date Filiberto Ying MD [address] [place] [address] PCP - GeneralFamily Medicine12/12/22Team MemberRelationshipSpecialtyStart DateEnd Date Filiberto Ying MD [address] [place] [address] PCP - GeneralFamily Medicine12/12/22Team MemberRelationshipSpecialtyStart DateEnd Date Filiberto Ying MD [address] [place] [address] PCP - GeneralFamily Medicine12/12/22Team MemberRelationshipSpecialtyStart DateEnd Date Filiberto Ying MD [address] [place] [address] PCP - GeneralFamily Medicine12/12/22 Goals (unrecognized section and content) Goals may [...] or prosecute any alcohol or drug abuse patient.[facility] HospitalIn the event this information is protected by the Federal Confidentiality of Alcohol and Drug Abuse Patient Records regulations: The Federal rules restrict any use of the information to criminally investigate or prosecute any alcohol or drug abuse patient.[facility] HospitalIn the event this information is protected by the Federal Confidentiality of Alcohol and Drug Abuse Patient Records regulations: The Federal rules restrict any use of the information to criminally investigate or prosecute any alcohol or drug abuse patient.[facility] HospitalIn the event this information is protected by the Federal Confidentiality of Alcohol and Drug Abuse Patient Records regulations: The Federal rules restrict any use of the information to criminally investigate or prosecute any alcohol or drug abuse patient.[facility] HospitalIn the event this information is protected by the Federal Confidentiality of Alcohol and Drug Abuse Patient Records regulations: The Federal rules restrict any use of the information to criminally investigate or prosecute any alcohol or drug abuse patient.[facility] HospitalIn the event this information is protected by the Federal Confidentiality of Alcohol and Drug Abuse Patient Records regulations: The Federal rules restrict any use of the information to criminally investigate or prosecute any alcohol or drug abuse patient.[facility] HospitalIn the event this information is protected by the Federal Confidentiality of Alcohol and Drug Abuse Patient Records regulations: The Federal rules restrict any use of the information to criminally investigate or prosecute any alcohol or drug abuse patient.[facility] HospitalIn the event this information is protected by the Federal Confidentiality of Alcohol and Drug Abuse Patient Records regulations: The Federal rules restrict any use of the information to criminally investigate or prosecute any alcohol or drug abuse patient.[facility] HospitalIn the event this information is protected by the Federal Confidentiality of Alcohol and Drug Abuse Patient Records regulations: The Federal rules restrict any use of the information to criminally investigate or prosecute any alcohol or drug abuse patient.[facility] HospitalIn the event this information is protected by the Federal Confidentiality of Alcohol and Drug Abuse Patient Records regulations: The Federal rules restrict any use of the information to criminally investigate or prosecute any alcohol or drug abuse patient.[facility] HospitalIn the event this information is protected by the Federal Confidentiality of Alcohol and Drug Abuse Patient Records regulations: The Federal rules restrict any use of the information to criminally investigate or prosecute any alcohol or drug abuse patient.[facility] HospitalIn the event this information is protected by the Federal Confidentiality of Alcohol and Drug Abuse Patient Records regulations: The Federal rules restrict any use of the information to criminally investigate or prosecute any alcohol or drug abuse patient.[facility] HospitalIn the event this information is protected by the Federal Confidentiality of Alcohol and Drug Abuse Patient Records regulations: The Federal rules restrict any use of the information to criminally investigate or prosecute any alcohol or drug abuse patient.[facility] HospitalIn the event this information is protected by the Federal Confidentiality of Alcohol and Drug Abuse Patient Records regulations: The Federal rules restrict any use of the information to criminally investigate or prosecute any alcohol or drug abuse patient.[facility] HospitalIn the event this information is protected by the Federal Confidentiality of Alcohol and Drug Abuse Patient Records regulations: The Federal rules restrict any use of the information to criminally investigate or prosecute any alcohol or drug abuse patient.[facility] HospitalIn the event this information is protected by the Federal Confidentiality of Alcohol and Drug Abuse Patient Records regulations: The Federal rules restrict any use of the information to criminally investigate or prosecute any alcohol or drug abuse patient.[facility] HospitalIn the event this information is protected by the Federal Confidentiality of Alcohol and Drug Abuse Patient Records regulations: The Federal rules restrict any use of the information to criminally investigate or prosecute any alcohol or drug abuse patient.[facility] HospitalIn the event this information is protected by the Federal Confidentiality of Alcohol and Drug Abuse Patient Records regulations: The Federal rules restrict any use of the information to criminally investigate or prosecute any alcohol or drug abuse patient.[facility] HospitalIn the event this information is protected by the Federal Confidentiality of Alcohol and Drug Abuse Patient Records regulations: The Federal rules restrict any use of the information to criminally investigate or prosecute any alcohol or drug abuse patient.[facility] HospitalIn the event this information is protected by the Federal Confidentiality of Alcohol and Drug Abuse Patient Records regulations: The Federal rules restrict any use of the information to criminally investigate or prosecute any alcohol or drug abuse patient.[facility] HospitalIn the event this information is protected by the Federal Confidentiality of Alcohol and Drug Abuse Patient Records regulations: The Federal rules restrict any use of the information to criminally investigate or prosecute any alcohol or drug abuse patient.[facility] HospitalIn the event this information is protected by the Federal Confidentiality of Alcohol and Drug Abuse Patient Records regulations: The Federal rules restrict any use of the information to criminally investigate or prosecute any alcohol or drug abuse patient.[facility] HospitalIn the event this information is protected by the Federal Confidentiality of Alcohol and Drug Abuse Patient Records regulations: The Federal rules restrict any use of the information to criminally investigate or prosecute any alcohol or drug abuse patient.[facility] HospitalIn the event this information is protected by the [facility] Confidentiality of Alcohol and Drug Abuse Patient Records regulations: The Federal rules restrict any use of the information to criminally investigate or prosecute any alcohol or drug abuse patient.[facility] HospitalIn the event this information is protected by the Federal Confidentiality of Alcohol and Drug Abuse Patient Records regulations: The Federal rules restrict any use of the information to criminally investigate or prosecute any alcohol or drug abuse patient.[facility] Reason for Visit (unrecogniz ed section and content) ReasonCommentsBotox InjectionSpecialtyDiagnoses / ProceduresReferred By Contact Referred To ContactNeurology / ADULT NEUROLOGY Diagnoses Chronic migraine without aura, intractable, with status migrainosus F/u hold for botox Procedures BOTULINUM TOXIN A PER 1 UNIT EST NI PATIENT David Sullivan MD Phone: tel: fax: David Sullivan MD [address] [place] [address] Phone: tel: fax: Referral IDStatusReasonStart DateExpiration DateVisits RequestedVisits [id number]/28/20255/[id number] PainReason CommentsNeck PainFollow upReasonCommentsNew PatientReasonCommentsResults [facility] ClinicReasonCommentsResSelect Medical [facility] - DublinReasonCommentsFoow UpReasonOnset DateCommentsRefill Odormaw9009/15/2023 ReasonCommentsRequest Outside Medical RecordsReasonCommentsCervical Dystonia SpecialtyDiagnoses / ProceduresReferred By ContactReferred To ContactNeurology Diagnoses Cervical dystonia Procedures CONSULT TO NEUROLOGY OFFICE/OUTPATIENT [facility] 60 MINUTES Robert Menchaca APRN.[employer] [id number] [place] [address] Referral IDStatusReasonStart DateExpiration DateVisits RequestedVisits [id number] PCP Requested Referral /[id number] DateCommentsRefill Wjlmcxz8810/18/2023eason CommentsInsurance AuthorizationBotoxSpecialtyDiagnoses / ProceduresReferred By ContactReferred To ContactADULT NEUROLOGY Diagnoses Chronic migraine without aura, intractable, with status migrainosus Procedures BOTULINUM TOXIN A PER 1 UNIT CHEMODERVATE FACIAL/TRIGEM/CERV MUSC MIGRAINE David Sullivan MD [address] [place] [address] [place] [address] [address] [place] [address] Referral IDStatusReasonStmidvale DateExpiration DateVisits RequestedVisits [id number]/23/20245/[id number] [id number] po Exc. bilateral breast massesSpecialtyDiagnoses / Procedures Referred By ContactReferred To ContactGeneral Surgery Diagnoses Hospital followup status post surgery Procedures AR UNLISTED EVALUATION AND MANAGEMENT SERVICE [facility] [address] [place] [address] Dano Pyle, DO [address] [address] Phone: tel: fax: Referral IDStatusReasonStart DateExpiration DateVisits RequestedVisits [id number]/28/20257/[id number] / Procedures Referred By ContactReferred To ContactADULT NEUROLOGY Diagnoses Chronic migraine without aura, intractable, with status migrainosus Procedures BOTULINUM TOXIN A PER 1 UNIT CHEMODERVATE FACIAL/TRIGEM/CERV MUSC MIGRAINE David Sullivan MD [address] [place] [address] [place] [address] Phone: tel: fax: Neurology [address] [place] [address] Phone: tel: fax: Referral IDStatusReasonStart DateExpiration DateVisits RequestedVisits [id number] Financial Clearance Required - [employer] Payor /[id number]-ukCcrzreJauwakbjUctm changesReason CommentsMigraineRestless LegsReasonCommentsMed Change Request INFORMATION SOURCE (unrecogn ized section and content) DATE CREATED AUTHOR 09/07/2022 [facility] DATE CREATED AUTHOR AUTHOR'S ORGANIZ ATION 11/15/2022 [employer] DATE CREATED AUTHOR AUTHOR'S ORGANIZ ATION 01/01/2023 [facility] DATE CREATED AUTHOR AUTHOR'S ORGANIZ ATION 02/04/2023 [facility] DATE CREATED AUTHOR AUTHOR'S ORGANIZ ATION 02/22/2024 [facility] DATE CREATED AUTHOR AUTHOR'S ORGANIZ ATION 01/30/2025 [facility] DATE CREATED AUTHOR AUTHOR'S ORGANIZ ATION 02/25/2025 [facility] DATE CREATED AUTHOR AUTHOR'S ORGANIZ ATION 02/28/2025 [facility] FOR RECORDS PERTAINING TO PATIENTS WHO [...] BE BASED ON THE PRIMARY CLINICAL RECORDS. [employer] [facility]. provides no warranty or guarantee of the accuracy or completeness of information in this document.
--- NOTE | 2025-03-30 17:17 | ED_ITS ---
HPI - Abdominal Pain General Chief Complaint: Abdominal Pain Stated Complaint: RIGHT SIDE BACK PAIN/ BLOOD IN URINE Time Seen by Provider: 03/30/25 16:49 Source: patient Mode of arrival: walk-in Limitations: no limitations History of Present Illness HPI narrative: 40 year old female presents to the ED for right flank pain, hematuria. Onset was within the past few days. Denies fever, chills, injury, emesis, diarrhea, dysuria. Reports hx kidney stones. She did have similar symptoms two weeks ago. She took Flomax and antibiotics with improvement for about one week. Related Data Home Medications ?Medication ?Instructions ?Recorded ?Confirmed diazepam 10 mg tablet 10 mg PO DAILY PRN muscle sp asm 03/21/23 10/08/24 pramipexole 1 mg tablet (Mirapex) 1 mg PO DAILY 12/09/24 ciprofloxacin HCl 500 mg tablet mg 12/09/24 metronidazole 500 mg tablet mg 12/09/24 minocycline 100 mg capsule mg 12/09/24 Previous Rx's ?Medication ?Instructions ?Recorded cephalexin 500 mg capsule 500 mg PO BID 7 days #14 cap s 03/30/25 hydrocodone 5 mg-acetaminophen 325 1 tab PO Q8H PRN pa in 4 days #10 03/30/25 mg tablet tabs ondansetron 4 mg disintegrating 4 mg PO Q8H PRN nausea and 03/30/25 tablet vomiting 4 days #12 tabs Allergies Allergy/AdvReac Type Severity Reaction Status Date / Time caffeine Allergy Mild Vomiting Verified 01/31/25 22:40 adhesive Allergy Blister Verified 01/31/25 22:40 dihydroergotamine Allergy Difficulty Verified 01/31/25 22:40 Breathing metoclopramide (From Reglan) Allergy Cramping Verified 01/31/25 22:40 of the Muscles metoprolol Allergy Swelling Verified 01/31/25 22:40 of Lip/Tongue/Throat promethazine (From Phenergan) Allergy Unknown Verified 01/31/25 22:40 Review of Systems ROS Constitutional Denies: fever or chills Cardiovascular Denies: chest pain Respiratory Denies: shortness of breath Gastrointestinal Reports: nausea; Denies: abdominal pain, vomiting or diarrhea Genitourinary Reports: blood in urine; Denies: painful urination, urinary frequency or urinary urgency Musculoskeletal Reports: back pain; Denies: neck pain Integumentary/Breast Denies: rash Neurological Denies: headache or weakness in extremities [facility] Social History Smoking status: Never smoker Little interest or pleasure in doing things: not at all Feeling down, depressed, or hopeless: not at all Exam Constitutional Vital Signs, click to edit/add: Last Vital Signs Temp 97.7 F 03/30/25 16:42 Pulse 81 03/30/25 18:41 Resp 16 03/30/25 18:41 BP 107/74 03/30/25 18:41 Pulse Ox 98 03/30/25 18:41 O2 Del Method Room Air 03/30/25 18:41 Common normals: no apparent distress General appearance: cooperative Eye Common normals: conjunctivae normal and no scleral icterus Neck & C-Spine Common normals: supple Respiratory Common normals: normal respiratory effort Effort & inspection: able to speak in complete sentences and symmetric chest movement Cardio Common normals: regular rate GI Common normals: Normal to inspection, nondistended, normoactive bowel sounds present, soft to palpation and non-tender Bladder/kidney exam: CVA tenderness on the right Back & Pelvis Thoracic spine/upper back: paraspinal muscle tenderness; no thoracic spinal tenderness Lumbar spine/lower back: paraspinal muscle tenderness; no lumbar spinal tenderness Neuro Common normals: oriented x3, moves all extremities and no focal motor deficits Sensorium/orientation: awake and alert Speech: speech normal Course Vital Signs Vital signs: Vital Signs Temperature 97.7 F 03/30/25 16:42 Respiratory Rate 18 03/30/25 16:42 Blood Pressure 99/66 03/30/25 16:42 Pulse Oximetry 100 03/30/25 16:42 Oxygen Delivery Method Room Air 03/30/25 16:42 Temperature 97.7 F 03/30/25 16:42 Pulse Rate 81 03/30/25 18:41 Respiratory Rate 16 03/30/25 18:41 Blood Pressure 107/74 03/30/25 18:41 Pulse Oximetry 98 03/30/25 18:41 Oxygen Delivery Method Room Air 03/30/25 18:41 MDM - Abdominal Pain MDM Narrative Medical decision making narrative: Urinalysis showed evidence of infection, hematuria. Culture was pending. CT scan showed acute cystitis. WBC count and CMP were unremarkable. Findings were discussed with the patient. She was given IV Zofran, Toradol, and Morphine with improvement. OARRS was reviewed. Prescriptions were provided for Zofran, [place], and Keflex. Follow up with pcp for a recheck, further evaluation and treatment. Return to the ED for worsening symptoms. Differential Diagnosis Differential diagnosis: Likely abdominal pain, calculus of kidney, constipation, pancreatitis and small bowel obstruction Medical Records Attestation: I reviewed the patient's medical records. Lab Data Attestation: I reviewed the patient's lab results. Labs: Lab Results 03/30/25 03/30/25 Range/Units 17:00 17:03 WBC 9.3 (4.0-11.0) 10^3/uL RBC 4.56 (4.20-5.40) 10^6/uL Hgb 13.3 (12.0-16.0) g/dL Hct 41.2 (36.0-48.0) % MCV 90.4 (81.0-99.0) fL MCH 29.2 (26.7-34.0) pg MCHC 32.3 (29.9-35.2) g/dL RDW 13.3 (11.0-15.0) % Plt Count 291 (150-450) 10^3/uL MPV 9.3 L (9.5-13.5) fL Neut % (Auto) 68.2 (43.0-75.0) % Lymph % (Auto) 24.5 (20.5-60.0) % Menard % (Auto) 5.7 (1.7-12.0) % Eos % (Auto) 1.2 (0.9-7.0) % Baso % (Auto) 0.2 (0.2-2.0) % Neut # (Auto) 6.3 (1.4-6.5) 10^3/uL Lymph # (Auto) 2.3 (1.2-3.8) 10^3/uL Menard # (Auto) 0.5 (0.3-0.8) 10^3/uL Eos # (Auto) 0.1 (0.0-0.7) 10^3/uL Baso # (Auto) 0.0 (0.0-0.1) 10^3/uL Abs Immat Gran (auto) 0.02 (0.00-0.03) 10^3/uL Imm/Tot Granulo (auto) 0.2 (0.0-0.5) % Sodium 143 (136-145) mmol/L Potassium 3.8 (3.5-5.1) mmol/L Chloride 106 (98-107) mmol/L Carbon Dioxide 30.8 (21.0-32.0) mmol/L Anion Gap 10.0 BUN 12.0 (7.0-18.0) mg/dL Creatinine 0.83 (0.55-1.02) mg/dL Est GFR ( Amer) >60 (>=60 mL/min/1.73m^2) Est GFR (Non-Af Amer) >60 (>=60 mL/min/1.73m^2) BUN/Creatinine Ratio 14.5 Glucose 83 (74-106) mg/dL Calcium 9.0 (8.5-10.1) mg/dL Total Bilirubin 0.3 (0.2-1.0) mg/dL AST 13 L (15-37) U/L ALT 28 (14-59) U/L Alkaline Phosphatase 82 (46-116) U/L Total Protein 7.2 (6.4-8.2) g/dL Albumin 3.8 (3.4-5.0) g/dL Globulin 3.4 g/dL Albumin/Globulin Ratio 1.1 Urine Color Lt. yellow (YELLOW) Urine Clarity Clear (CLEAR) Urine pH 7.0 (5.0-9.0) Ur Specific Rowe 1.020 (1.005-1.025) Urine Protein 30 A (NEG/TRACE) mg/dL Urine Glucose (UA) Negative (NEGATIVE) mg/dL Urine Ketones Trace A (NEGATIVE) mg/dL Urine Occult Blood Large A (NEGATIVE) Urine Nitrite Negative (NEGATIVE) Urine Bilirubin Negative (NEGATIVE) Urine Urobilinogen 0.2 (0.2-1.0) EU/dL Ur Leukocyte Esterase Trace A (NEGATIVE) Urine RBC 20-50 A (0-2) #/HPF Urine WBC 0-2 A (NONE SEEN) #/HPF Ur Squamous Epith Cells Few A (NONE/RARE) #/LPF Urine Crystals None seen (None Seen) #/HPF Urine Bacteria Small A (NONE SEEN) #/HPF Urine Casts None seen (NONE SEEN) #/LPF Urine Mucus Trace A (NONE SEEN) Ur Culture Indicated? [place] [place] HCG, Qual Negative (NEGATIVE) Imaging Data CT scan - abdomen: Attestation: I have reviewed the pertinent imaging results. Radiologist's impression: 1. Mild cystitis. 2. Nonobstructive bilateral nephrolithiasis. 3. Cholecystectomy. 4. Normal appendix. 5. Small hyperdense cyst at the midpole of the left kidney. 6. Small cyst at the mid to lower pole of the left kidney. 7. No free fluid or free air. 8. No abscess or hematoma. 9. No bowel or renal obstruction. Discharge Plan Discharge Chief Complaint: Abdominal Pain Clinical Impression: UTI (urinary tract infection), Acute flank pain, Hematuria Patient Disposition: Home, Self-Care Time of Disposition Decision: 19:58 Condition: Good Mode of Transportation: Private Vehicle Prescriptions / Home Meds: New cephalexin 500 mg capsule 500 mg PO BID 7 Days Qty: 14 0RF hydrocodone-acetaminophen 5-325 mg tablet 1 tab PO Q8H PRN (Reason: pain) 4 Days Qty: 10 0RF ondansetron 4 mg tablet,disintegrating 4 mg PO Q8H PRN (Reason: nausea and vomiting) 4 Days Qty: 12 0RF No Action diazepam 10 mg tablet 10 mg PO DAILY PRN (Reason: muscle spasm) pramipexole [Mirapex] 1 mg tablet 1 mg PO DAILY minocycline 100 mg capsule metronidazole 500 mg tablet ciprofloxacin HCl 500 mg tablet Print Language: [place] Instructions: Urinary Tract Infection in Women (ED), Hematuria (ED), Flank Pain (ED) Additional Instructions: Return to the ED for worsening symptoms. Referrals: Danny Obrien MD [Primary Care Provider, Family Practice] - 1 week Discharge Date/Time: 03/30/25 20:32
[2025-03-30 17:19] LABS: Hematocrit 41.2 % (36.0-48.0); Hemoglobin 13.3 g/dL (12.0-16.0); Immature Granulocytes Abs Auto 0.02 10^3/uL (0.00-0.03); Immature Granulocytes Pct Auto 0.2 % (0.0-0.5); Lymphocytes Absolute Auto 2.3 10^3/uL (1.2-3.8); Mean Corpuscular HGB Conc 32.3 g/dL (29.9-35.2); Mean Corpuscular Hemoglobin 29.2 pg (26.7-34.0); Mean Corpuscular Volume 90.4 fL (81.0-99.0); Platelet Count 291 10^3/uL (150-450); Red Blood Count 4.56 10^6/uL (4.20-5.40); White Blood Count 9.3 10^3/uL (4.0-11.0)
[2025-03-30 17:21] LABS: Glucose Urine UA NEGATIVE (NEGATIVE)
[2025-03-30 17:22] LABS: HCG Qualitative Urine* NEGATIVE (NEGATIVE)
[2025-03-30] MEDS: 0.9 % SODIUM CHLORIDE 1,000 ML 1000 ML IV (17:32)
[2025-03-30 17:37] LABS: Cast Seen? NONE SEEN #/LPF (NONE SEEN); Crystals Seen? None Seen #/HPF (None Seen); Urine Culture Indicated YES-FRMC
[2025-03-30 17:39] LABS: Alanine Aminotransferase 28 U/L (14-59); Albumin Globulin Ratio 1.1; Albumin Level 3.8 g/dL (3.4-5.0); Alkaline Phosphatase 82 U/L (46-116); Anion Gap 10.0; Aspartate Amino Transferase 13 U/L (15-37); Blood Urea Nitrogen 12.0 mg/dL (7.0-18.0); Calcium 9.0 mg/dL (8.5-10.1); Carbon Dioxide 30.8 mmol/L (21.0-32.0); Chloride 106 mmol/L (98-107); Estimated GFR (African America >60 (>=60 mL/min/1.73m^2); Estimated GFR (Non-African Ame >60 (>=60 mL/min/1.73m^2); Globulin 3.4 g/dL; Glucose 83 mg/dL (74-106); Potassium 3.8 mmol/L (3.5-5.1); Sodium 143 mmol/L (136-145); Total Protein 7.2 g/dL (6.4-8.2)
[2025-03-30] MEDS: KETOROLAC TROMETHAMINE 30 MG/ML VIAL 15 MG IVP (17:43)
[2025-03-30 17:57] VITALS: BP 107/62; PULSE 67; O2SAT 99
[2025-03-30 18:41] VITALS: BP 107/74; PULSE 81; O2SAT 98
[2025-03-30] MEDS: MORPHINE SULFATE 2 MG/ML SYRINGE IV (20:18)
[2025-03-30] MEDS: CEPHALEXIN 500 MG CAPSULE PO (20:18)
== END 2025-03-30 20:32 | disposition home or self-care (01) ==
PROVIDERS: Nurse Practitioner Family; Emergency Provider Student in an Organized Health Care Education/Training Program; PCP Family Medicine
DX: N39.0 Urinary tract infection, site not specified (principal); R10.9 Unspecified abdominal pain; R31.9 Hematuria, unspecified; Z87.442 Personal history of urinary calculi
CPT/HCPCS: 36415; 74176; 80053; 81001; 84703; 85025; 87086; 96374; 96375; 96376; 99285; J1885; J2270; J2405

== ENCOUNTER 2025-04-14 15:20 | Outpatient (REF) | payer OTHER, SELFPAY ==
--- OUTSIDE RECORDS SUMMARY | 2022-04-25 08:00 | XMS_ITS | Continuity of Care Document ---
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 [address] [facility], [place], [place], [id number], [place]. tel:[phone] Family History Family Member Type Diagnosis Age At Onset No Information Payers Payer name Insurance type Covered democrat ID Noa montano(s) D Medicaid [facility] [id number] Social History Type Description Quantity Date Captured [...]
--- OUTSIDE RECORDS SUMMARY | 2024-06-06 08:30 | XMS_ITS ---
Author Organization [facility] in [place] Address [address] [place] [address] Care Team Providers Care Residential Real Estate Appraiser Name Role Phone Vel Obrien Primary Care Provider REASON FOR VISIT diet check Encounters Encounter Location Date Provider Diagnosis [facility] [address] [facility] [place] [address] 06/06/2024 Vel Obrien Plan Of Treatment No Information Progress Notes * Brittanie BRADLEY MDOB: (40 yo F)Acc No.[id number]:06/06/2024 UNLOCKED PROGRESS NOTE Progress Note Patient: Brittanie TAYLOR :?Danny Obrien (TTC), [facility]1985???Age: 39 Y???Sex:FemaleDate:06/06/2024Phone:[phone]:JACK DUNNSAINT JOHN'S AURORA COMMUNITY HOSPITALKZ-[id number] Subjective: * Chief Complaints: * 1 . Diet check. * Medical History: Objective: * Vitals: Assessment: Plan: * Treatment: * * Electronic signature of Vel Obrien MD, [id number] on 04/14/2025 at 08:09 AM EST Sign off status: PendingVisit Status:?CANC (Cancelled) * Provider: Krishna Obrien MD (TTC) Date: 0 06/06/2024 Generated for Printing/Faxing/eTransmitting on:?04/14/2025 08:09 AM EST
--- OUTSIDE RECORDS SUMMARY | 2025-03-31 19:39 | XMS_ITS | Continuity of Care Document ---
Author Organization [facility] Address [address] [place] [address] Phone Care Team Providers Care Core Fitter Name Role Phone Liss Cheung Attending Provider Care Teams Patient Care Team Team Status: Active Member Role/Relationship Status Dates Danny Obrien MD Primary Care Provider Active Patient Care Team Team Status: Inactive Member Role/Relationship Status Dates Liss Cheung Attending Provider Active Start: N ov2024 End: March 30, 2025 Allergies, Adverse Reactions, Alerts Allergen Type Severity Reaction Last Updated Verified Status adhesive tape Allergy Unknown Rash October 22, 2024 2:50pm Yes Active caffeine Allergy Unknown Vomiting October 22, 2024 2:50pm Yes Active dihydroergotamine Allergy Unknown Unknown Reaction October 22, 2024 2:50pm Yes Active droperidol Allergy Unknown restless leg October 22, 2024 2:50pm Yes Active metoprolol Allergy Unknown Swelling of Lip/Tongue/Thr oat October 22, 2024 2:50pm Yes Active promethazine Allergy Unknown unknown October 22, 2024 2:50pm Yes Active metoclopramide Adverse Reaction Unknown Worsens restless leg October 22, 2024 2:50pm Yes Active Social History Smoking Status Status Start Date End Date Date of Observa tion Never smoked tobacco (finding) September 17, 2024 6:03am Observation Status Observation Response Date of Response Legal Sex Female (finding) [facility] Family History Relationship Condition Age at Onset Recorded Date/T claudette Not Specified No pertinent family history Unknown fatherHistory of deep venous thrombosisUnknown Problems Active Problems Problem Diagnosis/Recorded Date Onset Date Stat us Occipital neuralgia October 22, 2024 3:15pm Unknown Active Headache September 27, 2020 9:59pm Unknown Active Cervical spondylosis October 22, 2024 3:15pm Unknown Active Other chronic pain October 22, 2024 3:16pm Unknown Active Masses of both breasts May 15, 2023 11:05am Unk nown Active Elevated blood pressure read ing without diagnosis of hypertension September 27, 2020 9:59pm Unknown Active Headache, chronic migraine w ithout aura, intractable October 22, 2024 3:22pm Unknown Active Cervical paraspinal muscle spasm August 16, 2020 9:10 am Unknown Active Abdominal pain September 27, 2020 9:59pm Unknown Acti ve Left breast mass April 05, 2023 11:29am Unknown Active Breast mass, right June 17, 2024 9:22am Unknown Active Cholelithiasis October 14, 2019 6:26pm Unknown Acti ve Inactive/Resolved Problems Problem Diagnosis/Recorded Date Onset Date Stat Acute torticollis June 19, 2024 8:13pm Unknown Resolved UTI (urinary tract infection) September 17, 2024 7:43am Unknown Resolved Influenza A August 01, 2024 9:24am Unknown Reso lved Atypical chest pain September 17, 2024 5:16am Unknown Resolved Medications Medication Status Dose Units Route Directions Qty Days Refills S tart Date Stop Date End Date Reason(s) Instructions Adherence Hydrocodone-Acetaminophen (Wise) 5-325 mg tablet Discontinued 2 TAB PO Q6H as needed for pain 30 7 0 October 22, 2019 December 24, 2020 11:15amCalculus of gallbladder without cholecystitis without obstruction1-2 tabs every 6 hours as needed for painPromethazine 25 mg tablet Upcgjdohxbtq41LMXIU5I as needed for nausea and trrvefms447Tyl 2020 11:00pm December 24, 2020 11:24amPromethazine 25 mg cfljvvPyqrhwmlfbjd17COVPWjlt times daily as needed for nausea and tzggitwk231Eqf 2020 11:00pmAugust 2020 11:15amMinocycline 50 mg arwbziiGzniqnqfatzd55VWVLWledj morningJanuary 2024 12:00amJune 2024 2:51pmrosaceaTizanidine 4 mg arayucKnpnkc0VBOFYbzxk at bedtimeJanuary 2024 12:00amneck spasmsUnknownCetirizine 10 mg tablet Hfzbrkirzsei82BTMBTrmyzOrxhbmc 21st, 2025 12:00amJune 2024 2:52pmallergy symptomsTramadol 50 mg uooffeUswjkspmmrcp28WZWBCDKLT 4-6 HOURS as needed for aerm4489Ayxhtwt 2024 12:00amMarch 2024 7:23amMass of right breast Unspecified lump in the right breast, unspecified quadrantHydrocodone- Acetaminophen 5-325 mg ogqtcyAnjvjrhcansn2KSKCBS2H as needed for znea7691Sbsptca 2024March 2024 7:23amAcute torticollis TorticollisLidocaine 5 % adhesive patch,lknvvzzjwArpuvhqtqeuu8SWITUOKVTUKLD47J98 0January 2024 12:00amJune 2024 2:51pmleave on most painful area for up to 12 hrsDiazepam (Valium) 5 mg zscfhvCwkuljyrbzjv5DADRJrhya daily as needed for muscle kwrun8588Rvsjxsd 2024 12:00amMarch 2024 7:23amAcute torticollis TorticollisCephalexin 500 mg malgbceEgarlvapwgsy730YTOGCdmpj ufidk0488Cpdis 2024 11:00pmJune 2024 2:52pmCyclobenzaprine 10 mg tabletDiscontinued 10MGPODaily as needed for Muscle SpasmMay 2019 11:00pmDeceer 2022 11:55amCyclobenzaprine 10 mg wgbsvmQftcsqveugjy32WUDSXbaaj at bedtimeMay 2019 11:00pmDeceer 2022 11:55amCetirizine 10 mg yprcjtQrbitpnrynyk22YWVZ DailyMay 2019 11:00pmHollywood Presbyterian Medical Centerer 2022 11:54amDoxepin 10 mg capsule Dsxhchjqzrsf87OEPHZjfct at bedtime as needed for HEADACHEMay 2019 11:00pm December 24, 2020 11:23amPramipexole (Mirapex) 0.5 mg tabletDiscontinued0.5MGPO Daily at bedtimeOctober 13, 2019 11:00pmMay 01, 2023 11:53amrestless leg Propranolol 10 mg uhssbaUoborwjcwwio98CRJZGxttp dailyOctober 13, 2019 11:00pm May 01, 2023 11:55amvagal vaso syndromPantoprazole 40 mg tablet,delayed release (DR/EC)Fghftxhdeino22EAODYnpqrAib 25th, 2020 11:00pmMay 01, 2023 11:55amgerdHyoscyamine Sulfate 0.125 mg tablet, sublingualDiscontinued1 - 2TABPO Four times daily as needed for Abdominal PainOctober 13, 2019 11:00pmDecember 24, 2020 11:24amMinocycline 50 mg lcqwwstKnciscbbsiwz63LIIHOepdqCnp 25th, 2020 11:00pmMay 01, 2023 11:55amacneL N[place]/E.Estradiol-E.Estrad 0.15 mg-30 mcg (84)/10 mcg (7) tablets,dose pack,3 dedcwJyuqlhqypqmq8JKUFIWmttgDzh 25th, 2020 11:00pmMay 01, 2023 11:55amTopiramate 100 mg capsule,extended release 53tjLmczgoeixjfa205EUSLOryosDmv 25th, 2020 11:00pmMay 01, 2023 11:56ammigraineFremanezumab-Vfrm 225 mg/1.5 mL syringeDiscontinued1.5MLSUBCUT every monthOctober 13, 2019 11:00pmMay 01, 2023 11:54amOndansetron 4 mg tablet,xpfvowjzyhycypYlkowqkkdtpf4VQHKKvali times daily as needed for nausea and siefyvlq826Qxw2019 11:00pmMay 01, 2023 11:55amHydrocodone- Acetaminophen (Wise) 5-325 mg cymmseRzybwajfbzvf7VZDBWJ4V as needed for itcu997 0May 2019August 2020 11:15amPain, unspecifiedHydrocodone- Acetaminophen 5-325 mg mrfxshAobdrigyrkzg5QDPEVI6N as needed for cadj1966Mhvrz ugust 2020 11:15amSpasm of cervical paraspinous muscle Other muscle spasmCholestyramine-Aspartame (Questran Light) 4 gram powder Vjdbtpckzkza5RSZTefnxkn meals and at prxdbqi7606Fnehqf 2020 11:00pmDecember 2022 11:55amno meds 1 hr before/4-6 hr after doseOndansetron Hcl (Zofran) 4 mg gtvkjgAiyhzyuvnkun6KJLWE9S as needed for nausea and kxgovfte819Oaoksn 2020 11:00pmJanuary 2024 12:04pmPramipexole 1 mg jozcqqYlkjol4LXSCZfqkr at bedtime as needed for restless legDecember 2022 12:00amUnknownHydrocodone- Acetaminophen 5-325 mg pcxfluFpuourllvmgx3PZUZMBydim as needed for PainDecember 2022 12:00amJanuary 2024 12:04pmCyclobenzaprine 5 mg tablet Ptxyucvmiagl1RQDVCqfcu at bedtime as needed for spasmsDecember 2022 12:00amJanuary 2024 12:04pmDiazepam 10 mg wncqkrRkmdci87JCEWZozff daily as needed for SpasmsDecember 2022 12:00amUnknownAcetaminophen-Codeine 300-30 mg zsgdovIvpyjpdslhxl4XQPCFK1E as needed for ykuq8072Kqpdwksb 2022 12:00am June 10, 2024 12:03pmMasses of both breasts Unspecified lump in the right breast, unspecified quadrant Unspecified lump in the left breast, unspecified quadrantOndansetron 4 mg tablet,njkddlpcnwdwtqGjugklveopxp5FCUQR3Z as needed for nausea and ypbdeszj198 May 15, 2023 12:00amJanuary 2024 12:04pmCefdinir 300 mg capsule Ohmfkpoqywqn004IIRAZqbjj dailyMarch 2024 11:00pmJune 2024 2:52pm Ondansetron Hcl 4 mg pngsggIitvqv1UPZUVebid 6 hoursOctober 21, 2024 11:00pmUnknown Diclofenac Sodium 75 mg tablet,delayed release (DR/EC)Julbnt46HPOCHggrb daily October 21, 2024 11:31okXcdisawXODFXMIBVR3 creamActive1 - 2GMTOPICALevery 6 to 8 hours as needed for Psxt012560Nhth 3rd, 2025 11:00pmSpondylosis of lumbosacral spine without myelopathy Spondylosis without myelopathy or radiculopathy, lumbosacral regionBuderer Compounded Item: Baclofen 2%, Cyclobenzaprine HCl 2%, Diclofenac Na 3%, Gabapentin 6%, Lidocaine HCl 2% Cream Sig: as directed rub 1 to 2 grams for 2 to 3 minutes every 6 to 8 hours as needed TopicalUnknown Immunizations Immunization Event Date Not Given Reason Dose Number Supervisor Firearms Lot Number Reason(s) Given Vaccine Information Statement (VIS) Detail Administration Location Tetanus, Diphtheria, Pertussis (Tdap) July 27, 2016 Tetanus, Diphtheria, Pertussis (Tdap)January 04, 2020 Procedures Procedure Date Performed Status Urine Culture March 30, 2025 active Advance Directives Advance Directive Response Recorded Date/ Time Advance Directives No August 04 020 6:56am Insurance Providers Guarantor Zoe Gracia Address [address] [address]Iutjlom Info.Home Phone: Coverage Status Update:2025 Payer Group Member ID Coverage Type Subscriber Relationship to Subscriber Effective Date Expiration Date Paulette VO/LI Id: [id number] Bradley Id: [id number] [address] [facility] [address] Home Phone: Medicaid [id number] Bradshaw Id: [id number] [address] [facility] [address] Home Phone: Email: [email or web address] [facility] Special Id: [id number] Blankenship , M Id: [id number] [address] [facility] [address] Home Phone: Email: [email or web address] Medicaid [id number] Bradley M Id: [id number] [address] [facility] [address] Home Phone: Email: [email or web address] Id: [id number] Bradley Id: [id number] [address] [facility] [address] Home Phone: HCAP/HFA/FAP Active 100% [address] [id number] Work Phone: [phone] [id number] Blankenship Zoe Id: [id number] [address] [facility] [facility] [address] Home Phone: Email: [email or web address] [facility] 20[facility] Encounters Encounter Location(s) Arrival/Admit Date Discharge/Departure Date Discharge/Departure Disposition Provider(s) Departed Referred -[facility] March 30, 2025 5:00pm March 30, 2025 5:01pm Discharged to home care or self care (routine discharge) STEPHY [place] Plan of Treatment Future Tests Future scheduled test information is unavailable Pending Tests Test Name Ordered Date Scheduled Date Urine Culture March 30, 2025 5:00pm Future Visits Future appointment information is unavailable Future Procedures Procedure Name Ordered Date Scheduled Date Urine Culture March 31, 2025 3:21pm Novem 2024 5:00pm Future Medications Future medication information is unavailable Patient Instructions Patient instructions are unavailable
--- OUTSIDE RECORDS SUMMARY | 2025-04-14 08:30 | XMS_ITS | Encounter Summary ---
Author Organization [facility] Address [address] [facility] [place] [address] Care Team Providers Care Support Services Tech Name Role Phone Danny Obrien MD Primary Care Provider [phone] Reason for Visit * ReasonCommentsWell Women Visit Encounter Details DateTypeDepartmentCare Team (Latest Contact Info)Qurxaqfzppg27/25/2025 8:30 AM ESTOffice Visit ERIC [facility] [address] [place] [id number] Tommie Raymond DO [address] [place] [id number] Well woman exam with routine gynecological exam; Antibiotic-induced yeast infection Social History Tobacco UseTypesPacks/DayYears UsedDateSmoking Tobacco: NeverSmokeless Tobacco: NeverAlcohol UseStandard Drinks/WeekCommentsNever0 (1 standard drink = 0.6 oz pure alcohol)Caffeine: noneCommentsNoSex and Gender InformationValueDate RecordedSex Assigned at BirthNot on fileLegal TjlDtztia73/15/2023 7:15 PM EDT Gender IdentityNot on fileSexual OrientationNot on filedocumented as of this encounter Last Filed Vital Signs Vital SignReadingTime TakenCommentsBlood Updtdevb227/80106/14/2024 8:23 AM EST Pulse--Temperature--Respiratory Rate--Oxygen Saturation--Inhaled Oxygen Concentration--Iftmqi57 kg (167 lb 8 oz)04/14/2025 8:23 AM ESTHeight--Body Mass Index30.6409 8:00 AM EDTdocumented in this encounter Progress Notes * Binta Barron, CAFETERIA ATTENDANT - 04/14/2025 8:30 AM EST Reason for Appointment: Patient ID: Brittanie Bradley is a 40 y.o. female who presents for Well Women Visit Patient presents today for Annual Exam. MEDICATIONS Current Outpatient Medications Medication Instructions cetirizine (ZYRTEC) 10 mg, Daily RT cyclobenzaprine (FLEXERIL) 5 mg, Nightly PRN cyproheptadine (Periactin) 4 MG tablet Oral, Nightly diazePAM (Valium) 10 MG tablet diclofenac (Voltaren) 50 MG EC tablet TAKE 1 TABLET BY MOUTH TWICE A DAY NEEDED FOR 10 DAYS doxycycline (Monodox) 100 MG capsule Take 1 capsule, by mouth, BID, 30 days HYDROcodone-acetaminophen ([place]) 5-325 MG tablet 0.5 tablets, Daily PRN Ivermectin (Soolantra) 1 % cream Apply thin layer to face, once daily at bedtime, 30 day supply OnabotulinumtoxinA (BOTOX IJ) ondansetron ODT (Zofran-ODT) 4 MG disintegrating tablet pramipexole (MIRAPEX) 3 mg, Oral, Nightly tiZANidine (Zanaflex) 4 MG tablet Every 24 hours traZODone (Desyrel) 50 MG tablet Every 24 hours ALLERGIES Allergies Allergen Reactions Caffeine GI intolerance and Unknown Other Reaction(s): Vomiting Droperidol Other Other Reaction(s): Other: See Comments Severe restless leg flare up Dihydroergotamine Unknown Metoclopramide Other Other Reaction(s): Worsens restless leg Promethazine Other Metoprolol Swelling Wound Dressing Adhesive Unknown and Rash PROBLEMS Active Ambulatory Problems Diagnosis Date Noted Masses of both breasts 04/18/2023 Migraine 08/23/2023 Cervicogenic headache 08/23/2023 Myalgia 08/23/2023 Neck pain 08/23/2023 Chronic migraine without aura 08/23/2023 Insomnia, unspecified 08/23/2023 Daytime somnolence 08/23/2023 Obesity 08/23/2023 Jerking 08/23/2023 Intracranial MODEL BUILDER disorder 08/23/2023 RLS (restless legs syndrome) 08/23/2023 Iron deficiency anemia, unspecified 08/23/2023 Cervical dystonia 08/23/2023 Diffuse pain 08/23/2023 Mass of upper outer quadrant of right breast 06/09/2024 Mass of lower outer quadrant of right breast 06/09/2024 Fibroadenoma of breast, right 06/23/2024 Abdominal pain 11/20/2024 Abnormal ultrasound of breast 11/20/2024 Abnormal weight gain 11/20/2024 Arthritis 11/20/2024 Change in bowel habit 11/20/2024 Cholelithiasis 11/20/2024 Difficulty breathing 01/05/2023 Elevated blood pressure reading without diagnosis of hypertension 11/20/2024 Female pelvic congestion syndrome 11/20/2024 Hyperlipidemia 01/05/2023 [facility]uterine [facility] 07/25/2016 Migraine without aura, intractable, with status migrainosus 11/20/2024 Other rosacea 11/20/2024 Pain in female genitalia on intercourse 11/20/2024 Pelvic and perineal pain 11/20/2024 labor ([facility]) 07/19/2016 Vaginal dryness 11/20/2024 Trapezius muscle spasm 01/21/2025 Resolved Ambulatory Problems Diagnosis Date Noted No Resolved Ambulatory Problems Past Medical History: Diagnosis Date Abdominal cramping Breast lump Cervical dysplasia Cervicalgia Chicken pox Dyspareunia in female Encounter for gynecological examination (general) (routine) without abnormal findings Endometriosis Frequent bowel movements Headache History of migraine headaches Movement disorder Obesity (BMI 30-39.9) Ovarian cyst Pain pelvic Sleep apnea Spasmodic torticollis Tension headache Tonsillitis Vasovagal syncope HISTORY PAST MEDICAL HISTORY SOCIAL HISTORY Past Medical History: Diagnosis Date Abdominal cramping Abnormal weight gain Arthritis Breast lump Cervical dysplasia Cervical dystonia Cervical dystonia Cervicalgia Cervicogenic headache Chicken pox Cholelithiasis Dyspareunia in female Encounter for gynecological examination (general) (routine) without abnormal findings Endometriosis Female pelvic congestion syndrome Frequent bowel movements Headache History of migraine headaches Movement disorder involuntary Myalgia Neck pain Obesity (BMI 30-39.9) Ovarian cyst Pain pelvic Sleep apnea Spasmodic torticollis Tension headache Tonsillitis Vaginal dryness Vasovagal syncope basically resolved with propranolol Social History Tobacco Use Smoking status: Never Smokeless tobacco: Never Vaping Use Vaping status: Never Used Substance Use Topics Alcohol use: Never Comment: Caffeine: none Drug use: Never FAMILY HISTORY Family History Problem Relation Name Age of Onset Migraines Mother Hypertension Other SURGICAL HISTORY Past Surgical History: Procedure Laterality Date ADENOIDECTOMY 1991 BI US GUIDED BREAST LOCALIZATION AND BIOPSY LEFT Left 04/23/2023 BI US GUIDED BREAST LOCALIZATION AND BIOPSY LEFT BREAST LUMPECTOMY Bilateral 05/15/2023 BREAST SURGERY Bilateral 06/17/2024 Exc. breast masses EXPLORATORY LAPAROTOMY 2010 HYSTERECTOMY 2020 [place] LAP,CHOLECYSTECTOMY 10/22/2019 w/ [place] TONSILLECTOMY 1991 REVIEW OF SYSTEMS Review of Systems: Review of Systems Constitutional: Negative. HENT: Negative. Eyes: Negative. Respiratory: Negative. Cardiovascular: Negative. Gastrointestinal: Negative. Genitourinary: Negative. Musculoskeletal: Negative. Skin: Negative. Neurological: Negative. All other systems reviewed and are negative. Hematological: Negative. Endocrine: Negative. Allergic/Immunologic: Negative. OBJECTIVE Objective: Physical Exam Constitutional: Appearance: Normal appearance. She is well-developed. Genitourinary: Vulva normal. Vaginal cuff intact. Cervix is absent. Uterus is absent. Breasts: Breasts are soft. Right: Normal. Left: Normal. Cardiovascular: Rate and Rhythm: Normal rate and regular rhythm. Abdominal: General: Bowel sounds are normal. There is no distension. Palpations: Abdomen is soft. Tenderness: There is no abdominal tenderness. There is no guarding or rebound. Musculoskeletal: General: No swelling. Normal range of motion. Right lower leg: No edema. Left lower leg: No edema. Neurological: Mental Status: She is alert and oriented to person, place, and time. Skin: General: Skin is warm and dry. Psychiatric: Mood and Affect: Mood normal. Behavior: Behavior normal. Vitals and nursing note reviewed. Exam conducted with a electric accounting machine operator present. Vitals: Estimated body mass index is 30.64 kg/m?? as calculated from the following: Height as of 01/21/25: 5' 2 . Weight as of this encounter: 167 lb 8 oz. BP: 108/80 No LMP recorded. Patient has had a hysterectomy. ASSESSMENT & PLAN ICD-10-CM 1. Well woman exam with routine gynecological exam Z01.419 Pap Smear HPV DNA probe, amplified Orders Placed This Encounter Procedures HPV DNA probe, amplified Annual Wellness Exam (Post Hysterectomy): Patient presents today for routine annual exam. Patient states she has no current complaints. Patients vitals were reviewed and within normal limits. Growth and development is noted to be appropriate for age. Menstrual history is noted to be obsolete due to patients history of hysterectomy. No mental health concerns was expressed. Pt has yeast infection rx for diflucan faxed to pharmacy Pap Smear: Speculum was inserted into the vagina and pap was obtained without difficulty. HPV testing was performed per guidelines. Patient was advised that pap results could take anywhere from 7 to 10 days to receive and our office will reach out to the patient with those once we have them. Patient can also view results via [employer]. I reinforced importance of condom use for STI prevention. Patient declined cultures to be performed with today's visit. Breast Exam: Upon examination, clinical breast exam was noted to be normal. Patient was counseled on breast self-awareness, including the importance of knowing what is normal for her own breasts and promptly reporting any changes such as new lumps, skin dimpling, nipple discharge, or pain. Screening mammogram recommended annually beginning at age 40 or earlier if risk factors are present. Discussed signs and symptoms of breast cancer and when to seek medical attention. Answered all patient questions. Follow Up: Patient is to return to our office in one year for annual exam unless needed otherwise. Documented by Binta Barron LPN on behalf of: Tommie Raymond DO documented in this encounter Plan of Treatment DateTypeDepartmentCare Team (Latest Contact Info)Tejkuoxqszr33/08/2026 8:30 AM ESTProcedure Visit [facility] [address] [place] [address] Tommie Raymond DO [address] [place] [address] NameTypePriorityAssociated DiagnosesOrder SchedulePap SmearPathology and CytologyRoutine Well woman exam with routine gynecological exam Ordered: 04/14/2025HPV DNA probe, amplifiedMicrobiologyRoutine Well woman exam with routine gynecological exam Ordered: 04/14/2025documented as of this encounter Visit Diagnoses Diagnosis Well woman exam with routine gynecological exam Routine gynecological examination Antibiotic-induced yeast infection documented in this encounter Care Teams Team MemberRelationshipSpecialtyStart DateEnd Date Danny Obrien MD [address] [place] [phone] PCP - GeneralFamily Medicine12/12/22documented as of this encounter
--- OUTSIDE RECORDS SUMMARY | 2025-04-14 15:26 | XMS_ITS | Encounter Summary ---
Author Organization [facility] Address [address] [facility] [place] [address] Care Team Providers Care Sports Attorney Name Role Phone Danny Obrien MD Primary Care Provider [phone] Encounter Details DateTypeDepartmentCare Team (Latest Contact Info)Nflracnkncd24/25/2025Travel Social History Tobacco UseTypesPacks/DayYears UsedDateSmoking Tobacco: NeverSmokeless Tobacco: NeverAlcohol UseStandard Drinks/WeekCommentsNever0 (1 standard drink = 0.6 oz pure alcohol)Caffeine: noneCommentsNoSex and Gender InformationValueDate RecordedSex Assigned at BirthNot on fileLegal RbaJykxhl64/15/2023 7:15 PM EDT Gender IdentityNot on fileSexual OrientationNot on filedocumented as of this encounter Plan of Treatment DateTypeDepartmentCare Team (Latest Contact Info)Zojqubquwjf70/08/2026 8:30 AM ESTProcedure Visit [facility]IC [facility] [address] [place] [address] Tommie Raymond DO [address] [place], [place] [phone] documented as of this encounter Visit Diagnoses Not on filedocumented in this encounter Care Teams Team MemberRelationshipSpecialtyStart DateEnd Danny Obrien MD [address] [facility] [place] [address] PCP - GeneralFamily Medicine12/12/22documented as of this encounter
--- OUTSIDE RECORDS SUMMARY | 2025-04-14 15:26 | XMS_ITS | Clinical Summary ---
Author Organization [facility] Address [address] [place] [address] Phone Care Team Providers Care Towing Pilot Name Role Phone Danny Obrien MD Primary Care Provider [phone] Allergies Active AllergyReactionsCriticalityNoted DateCommentsAdhesive Tape-Silicones Tjggzar9201/05/20235009MsjjclghUqzfifd52/18/2023rasterone (Dhea)Snjtavz9101/05/2023 Medications MedicationSigDispense QuantityRefillsLast FilledStart DateEnd DateStatus baclofen [...] As DirectedActive Active Problems ProblemNoted DateDiagnosed DateCervical rzantoqw57/18/2023ifficulty breathing 01/05/20237409Aohylrir04/18/6554Ltjoqzqpfqkfdg16/18/2023 Immunizations ImmunizationAdministration DatesNext DueTdap vaccine, age 7 year and older (BOOSTRIX, ADACEL)01/04/2020,07/27/2016 Family History Medical HistoryRelationNameCommentsHyperlipidemiaFatherHypertensionFather MigrainesMotherRelationNameStatusCommentsFatherMother Social History Tobacco UseTypesPacks/DayYears UsedDateSmoking Tobacco: Never Assessed CommentsUnknownSex and Gender InformationValueDate RecordedSex Assigned at Not on fileLegal EeyClwrzs54/25/2022 12:53 PM ESTGender IdentityNot on file Sexual OrientationNot on file Last Filed Vital Signs Vital SignReadingTime TakenCommentsBlood Edcjdkfa000/7411/14/2022 4:20 PM EDT Gdgow325511/14/2022 4:20 PM EDTTemperature--Respiratory Rate--Oxygen Saturation-- Inhaled Oxygen Concentration--Upbhmr18.5 kg (162 lb)11/10/2022 8:58 AM EDTHeight 157.5 cm (5' 2 )11/14/2022 4:15 PM EDTBody Mass Index29.6306 8:58 AM EDT Plan of Treatment Health MaintenanceDue DateLast DoneCommentsHIV Ujorqtlvy1987Lipid Panel 1987Yearly Adult Zqiipurb1987MMR Vaccines (1 of 1 - Standard series) 01/07/1988Diabetes Hqfotnscp73/19/2005Hepatitis C Idwyqsnmc03/19/2005Hepatitis B Vaccines (1 of 3 - 19+ 3-dose series)2006Cervical Cancer Screening 01/07/2008HPV/Cbjvvm9101/07/2008Pap Smear01/07/2008HPV Vaccines (1 - 3-dose standard series)2014Influenza [...] DateEnd Date Danny Obrien MD [address] [place] [address] [facility]09/20/22
--- OUTSIDE RECORDS SUMMARY | 2025-04-14 15:26 | XMS_ITS | Patient Health Record ---
Author Organization [facility] [place] Address [address] [place] [address] Care Team Providers Care Dispatcher Radio Name Role Phone Vel Obrien Primary Care Provider Allergies Allergen (clinical drug ingredient) Drug/Non Drug Allergy documented on EMR Reaction Allergy Type Onset Date Status caffeine Caffeine vomiting Drug Allergy ActivedihydroergotamineDihydroergotamineanaphylaxisDrug AllergyActivemetoprolol Metoprolollip swellingDrug AllergyActive Results Component Value Reference Range Notes CORTISOL AM Reviewed date:02/08/2025 06:28:14 PM Interpretation: Performing Lab: Notes/Report: [facility] , Cortisol - AM 13.7 6.2-19.4 ug/dL [address], [place] [id number] Exploration Manager: Bentley Leggett PhD, Phone: [phone] Performed at: [facility] Performing Lab: see note - [facility] LBINFLUENZA A AND B AG Reviewed date:07/31/2024 06:43:11 PM Interpretation: Performing Lab: Notes/Report: [facility] ,Influenza Virus A AntigenNegative cannot be ruled out. Flu A antigen in the sample may be Negative for Flu A protein antigen. Infection due to Flu A below the detection limit of the test. Influenza Virus B AntigenNegative below the detection limit of the test. cannot be ruled out. Flu B antigen in the sample may be Negative for Flu B protein antigen. Infection due to Flu B Performing Lab:see noteML - [facility] RQHLJV-UiF-5 Ag* Reviewed date:07/31/2024 06:43:11 PM Interpretation: Performing Lab: Notes/Report: [facility] ,SARS-CoV-2 AgNEGATIVENEGATIVE circumstances exist justifying the authorization of emergency use of in vitro diagnostic tests for detection complexity testing. This test has been authorized only for authorized for the duration of the declaration that the detection of proteins from SARS-CoV-2, not for any other (EUA) for use by authorized laboratories certified under CLIA that meet the requirements to perform moderate or high terminated or authorization is revoked sooner. and/or diagnosis of Covid-19 under section 564(b)(1) of the This test has not been FDA cleared or approved, but has been authorized by the FDA under an Emergency Use Authorization viruses or pathogens. The emergency use of this test is Act, 21 U.S.C. 360bbb-3(b)(1), unless the declaration is Performing Lab:see noteML - [facility] LBCBC AUTO DIFF Reviewed date:12/09/2024 03:36:49 PM Interpretation: Performing Lab: Notes/Report: [facility] ,White Blood Count6.14.0-11.0 10 3/uLRed Blood Count4.724.20-5.40 10 6/uL Zvtlabffoo61.112.0-16.0 g/lKBlqvjqgyiz19.036.0-48.0 %Mean Corpuscular Pjcraj55.0 81.0-99.0 fLMean Corpuscular Fqamvuttmi50.926.7-34.0 pgMean Corpuscular HGB Conc 33.629.9-35.2 g/dLRed Cell Distribution Width12.911.0-15.0 %Platelet Yxnro570 150-450 10 3/uLMean Platelet Volume9.29.5-13.5 fLNeutrophils Percent Auto54.8 43.0-75.0 %Lymphocytes Percent Auto37.120.5-60.0 %Monocytes Percent Auto5.81.7- 12.0 %Eosinophils Percent Auto1.80.9-7.0 %Basophils Percent Auto0.30.2-2.0 % Immature Granulocytes Pct Auto0.20.0-0.5 %Neutrophils Absolute Auto3.31.4-6.5 10 3/uLLymphocytes Absolute Auto2.31.2-3.8 10 3/uLMonocytes Absolute Auto0.40.3-0.8 10 3/uLEosinophils Absolute Auto0.10.0-0.7 10 3/uLBasophils Absolute Auto0.00.0- 0.1 10 3/uLImmature Granulocytes Abs Auto0.010.00-0.03 10 3/uLPerforming Lab:see noteML - [facility] LBCRP Reviewed date:12/09/2024 03:36:49 PM Interpretation: Performing Lab: Notes/Report: [facility] ,C Reactive Protein<0.50<=0.50 mg/dLPerforming Lab:see note - [facility] LBPROF CHEM 8 (BAS METB) Reviewed date:12/09/2024 03:36:49 PM Interpretation: Performing Lab: Notes/Report: [facility] ,Awuunl761387-968 mmol/LPotassium3.43.5-5.1 mmol/EHsnqbwpa43182-575 mmol/LCarbon Dtgpdxt36.421.0-32.0 mmol/LAnion Gap11.9Chflloo7850-668 mg/dLBlood Urea Nitrogen 15.07.0-18.0 mg/dLCreatinine0.720.55-1.02 mg/dLEstimated GFR ( Esther>60 >=60 mL/min/1.73m 2Estimated GFR (Non- Anat>60>=60 mL/min/1.73m 2BUN Creatinine Ratio20.9Ddztwhe7.58.5-10.1 mg/dLPerforming Lab:see note - [facility] LBCBC AUTO DIFF Reviewed date:02/01/2025 12:28:15 PM Interpretation: Performing Lab: Notes/Report: [facility] ,White Blood Count6.04.0-11.0 10 3/uLRed Blood Count4.734.20-5.40 10 6/uL Odjjkwpkgu21.112.0-16.0 g/wUBjqefvfxlm32.736.0-48.0 %Mean Corpuscular Cestct79.2 81.0-99.0 fLMean Corpuscular Mqeehvsypq33.826.7-34.0 pgMean Corpuscular HGB Conc 33.829.9-35.2 g/dLRed Cell Distribution Width13.211.0-15.0 %Platelet Sqpjw570 150-450 10 3/uLMean Platelet Volume9.19.5-13.5 fLNeutrophils Percent Auto54.0 43.0-75.0 %Lymphocytes Percent Auto36.620.5-60.0 %Monocytes Percent Auto7.01.7- 12.0 %Eosinophils Percent Auto1.70.9-7.0 %Basophils Percent Auto0.50.2-2.0 % Immature Granulocytes Pct Auto0.20.0-0.5 %Neutrophils Absolute Auto3.31.4-6.5 10 3/uLLymphocytes Absolute Auto2.21.2-3.8 10 3/uLMonocytes Absolute Auto0.40.3-0.8 10 3/uLEosinophils Absolute Auto0.10.0-0.7 10 3/uLBasophils Absolute Auto0.00.0- 0.1 10 3/uLImmature Granulocytes Abs Auto0.010.00-0.03 10 3/uLPerforming Lab:see noteML - [facility] LBCRP Reviewed date:02/01/2025 12:28:15 PM Interpretation: Performing Lab: Notes/Report: [facility] ,C Reactive Protein<0.50<=0.50 mg/dLPerforming Lab:see noteML - [facility] LBPROF CHEM 8 (BAS METB) Reviewed date:02/01/2025 12:28:15 PM Interpretation: Performing Lab: Notes/Report: [facility] ,Ocqcxd699809-921 mmol/LPotassium4.13.5-5.1 mmol/JAayffbmv06677-666 mmol/LCarbon Zzmztse74.021.0-32.0 mmol/LAnion Gap14.5Gfbkwiy0079-238 mg/dLBlood Urea Nitrogen 12.07.0-18.0 mg/dLCreatinine0.650.55-1.02 mg/dLEstimated GFR ( Esther>60 >=60 mL/min/1.73m 2Estimated GFR (Non- Anat>60>=60 mL/min/1.73m 2BUN Creatinine Ratio18.2Fofbezq0.28.5-10.1 mg/dLPerforming Lab:see note - [facility] LBErythrocyte Sedimentation Rate Reviewed date:02/01/2025 12:28:15 PM Interpretation: Performing Lab: Notes/Report: [facility] ,Erythrocyte Sedimentation Rate12<=20 mm/hrPerforming Lab:see note - [facility] LBINSULIN Reviewed date:02/08/2025 06:28:14 PM Interpretation: Performing Lab: Notes/Report: [facility] ,Insulin7.62.6-24.9 uIU/mL Exploration Manager: Bentley Leggett PhD, Phone: [phone] [address], [place] [id number] Performed at: - [facility] [place] Performing Lab:see note - [facility] LBVITAMIN D 25 [place] Reviewed date:02/07/2025 03:07:58 PM Interpretation: Performing Lab: Notes/Report: [facility] ,Vitamin D18.7 >100 ng/mL Potential Toxicity 20-<30 ng/mL Vit D insufficient 30-100 ng/mL Vit D sufficient <20 ng/mL Vit D deficient [facility] LBCBC [facility] DIFF Reviewed date:03/30/2025 07:06:13 PM Interpretation: Performing Lab: Notes/Report: [facility] ,White Blood Count9.34.0-11.0 10 3/uLRed Blood Count4.564.20-5.40 10 6/uL Ykclpkhtrl90.312.0-16.0 g/hVAawpourhnn10.236.0-48.0 %Mean Corpuscular Slginq39.4 81.0-99.0 fLMean Corpuscular Bqxlokyvkt81.226.7-34.0 pgMean Corpuscular HGB Conc 32.329.9-35.2 g/dLRed Cell Distribution Width13.311.0-15.0 %Platelet Ardoa432 150-450 10 3/uLMean Platelet Volume9.39.5-13.5 fLNeutrophils Percent Auto68.2 43.0-75.0 %Lymphocytes Percent Auto24.520.5-60.0 %Monocytes Percent Auto5.71.7- 12.0 %Eosinophils Percent Auto1.20.9-7.0 %Basophils Percent Auto0.20.2-2.0 % Immature Granulocytes Pct Auto0.20.0-0.5 %Neutrophils Absolute Auto6.31.4-6.5 10 3/uLLymphocytes Absolute Auto2.31.2-3.8 10 3/uLMonocytes Absolute Auto0.50.3-0.8 10 3/uLEosinophils Absolute Auto0.10.0-0.7 10 3/uLBasophils Absolute Auto0.00.0- 0.1 10 3/uLImmature Granulocytes Abs Auto0.020.00-0.03 10 3/uLPerforming Lab:see noteML - [facility] LBPROF 14(COMP METB) Reviewed date:03/30/2025 07:06:13 PM Interpretation: Performing Lab: Notes/Report: [facility] ,Bdevwh771710-509 mmol/LPotassium3.83.5-5.1 mmol/FLlzvhcwc32461-594 mmol/LCarbon Zhzdoar96.821.0-32.0 mmol/LAnion Gap10.9Vxtguqn1062-269 mg/dLBlood Urea Nitrogen 12.07.0-18.0 mg/dLCreatinine0.830.55-1.02 mg/dLEstimated GFR ( Esther>60 >=60 mL/min/1.73m 2Estimated GFR (Non- Anat>60>=60 mL/min/1.73m 2BUN Creatinine Ratio14.4Qbaoikx0.08.5-10.1 mg/dLBilirubin Total0.30.2-1.0 mg/dL Aspartate Amino Gvlicblpdkj6608-67 U/LAlanine Eiowktirhmobfsty7529-06 U/L Alkaline Fvlpwrblzru0570-052 U/LTotal Protein7.26.4-8.2 g/dLAlbumin Level3.83.4- 5.0 g/dLGlobulin3.4Albumin Globulin Ratio1.1Performing Lab:see noteML - [facility] LBUA (CLEAN or CATCH) MICROSCOPIC IF INDICATE Reviewed date:03/30/2025 07:06:13 PM Interpretation: Performing Lab: Notes/Report: [facility] ,Color UrineLT. YELLOWYELLOWClarity UrineCLEARCLEARSpecific [place] Urine1.020 1.005-1.025pH Urine7.05.0-9.0Protein Rbitc85RAD/TRACE mg/dLGlucose Urine UA NEGATIVENEGATIVE mg/dLBilirubin UrineNEGATIVENEGATIVEKetones UrineTRACENEGATIVE mg/dLBlood UrineLARGENEGATIVENitrite UrineNEGATIVENEGATIVEUrobilinogen Urine0.2 0.2-1.0 EU/dLLeukocyte Esterase UrineTRACENEGATIVEUrine Microscopic IndicatedYES Performing Lab:see note - [facility] LBHCG Qualitative Urine Reviewed date:03/30/2025 07:06:13 PM Interpretation: Performing Lab: Notes/Report: [facility] ,HCG Qualitative Urine*NEGATIVENEGATIVEPerforming Lab:see note - [facility] LBUrine Culture - [facility] Reviewed date:04/02/2025 02:39:04 PM Interpretation: Performing Lab: Notes/Report: [facility] ,Urine Culture - FRMCSee Below For Report Urine Culture - [facility] SEEFRMC [facility] RESULT^[facility] RESULT Urine Culture - FRMCSEEA SEE SCANNED REPORT, ABNORMAL^SEE SCANNED REPORT, ABNORMAL Urine Culture - [facility] SEEFRMC [facility] RESULT^[facility] RESULT Performing Lab:see note - [facility] LBTSH Reviewed date:02/07/2025 03:07:58 PM Interpretation: Performing Lab: Notes/Report: [facility] ,Thyroid Stimulating Hormone0.4780.358-3.740 uIU/mLPerforming Lab:see note - [facility] LBT4 Reviewed date:02/07/2025 03:07:58 PM Interpretation: Performing Lab: Notes/Report: [facility] ,T4 Soifyijuf39.504.80-13.90 ug/dLPerforming Lab:see note - [facility] LBPROF 14(COMP METB) Reviewed date:02/07/2025 03:07:58 PM Interpretation: Performing Lab: Notes/Report: [facility] ,Wbwmjj336954-606 mmol/LPotassium4.13.5-5.1 mmol/JRvskribc85594-312 mmol/LCarbon Yjogvgg53.321.0-32.0 mmol/LAnion Gap11.6Gtzahft6285-718 mg/dLBlood Urea Nitrogen 11.07.0-18.0 mg/dLCreatinine0.840.55-1.02 mg/dLEstimated GFR ( Esther>60 >=60 mL/min/1.73m 2Estimated GFR (Non- Anat>60>=60 mL/min/1.73m 2BUN Creatinine Ratio13.7Qibqnon9.28.5-10.1 mg/dLBilirubin Total0.50.2-1.0 mg/dL Aspartate Amino Awatiwchqrb1519-55 U/LAlanine Cqypyplknertydph7357-28 U/L Alkaline Ubdngtdbxbm3279-039 U/LTotal Protein7.26.4-8.2 g/dLAlbumin Level3.63.4- 5.0 g/dLGlobulin3.6Albumin Globulin Ratio1.0Performing Lab:see noteML - [facility] LBLIPID PROFILE Reviewed date:02/07/2025 03:07:58 PM Interpretation: Performing Lab: Notes/Report: [facility] ,Hwkxjjznqazbq194<=150 mg/pXAysaxbkfqyv775<=200 mg/dLHDL Zzrswpqpaes9836-62 mg/dL > or =60 mg/dl - LOW CARDIOVASCULAR RISK <40 mg/dl - HIGH CARDIOVASCULAR RISK LDL Cholesterol Cgxoqedssw914.0 100-129 mg/dl NEAR OR ABOVE OPTIMAL 130-159 mg/dl BORDERLINE HIGH 160-189 mg/dl HIGH >190 mg/dl VERY HIGH <100 mg/dl OPTIMAL VLDL VAZVAPVYRZD85.8Chol HDL Ratio3.9 7.1 - 11.0 MODERATE RISK >11.0 HIGH RISK 3.3 - 4.4 LOW RISK 4.4 - 7.1 AVERAGE RISK Performing Lab:see noteML - [facility] LBGLYCOHEMOGLOBIN A1C Reviewed date:02/07/2025 03:07:58 PM Interpretation: Performing Lab: Notes/Report: [facility] ,Glycohemoglobin A1C4.84.5-6.2 % ADA THERAPEUTIC TARGET < 7.0 > 7.0 ADA RECOMMENDED LIMIT 4.0 - 6.0 ACTION SUGGESTED Estimated Average Uyppzrn02Vgjwynksym Lab:see noteML - [facility] LB FREE T3 Reviewed date:02/07/2025 03:07:58 PM Interpretation: Performing Lab: Notes/Report: [facility] ,Senthil T32.492.18-3.98 pg/mLPerforming Lab:see noteML - [facility] LB CBC AUTO DIFF Reviewed date:02/07/2025 03:07:58 PM Interpretation: Performing Lab: Notes/Report: [facility] ,White Blood Count6.94.0-11.0 10 3/uLRed Blood Count4.854.20-5.40 10 6/uL Ttaknvvkap01.112.0-16.0 g/jGDvcvwhdqcz41.236.0-48.0 %Mean Corpuscular Kwwjno78.1 81.0-99.0 fLMean Corpuscular Ihxzuuuqmb77.126.7-34.0 pgMean Corpuscular HGB Conc 32.629.9-35.2 g/dLRed Cell Distribution Width13.411.0-15.0 %Platelet Uwlpd438 150-450 10 3/uLMean Platelet Volume9.39.5-13.5 fLNeutrophils Percent Auto55.5 43.0-75.0 %Lymphocytes Percent Auto34.920.5-60.0 %Monocytes Percent Auto6.81.7- 12.0 %Eosinophils Percent Auto1.90.9-7.0 %Basophils Percent Auto0.60.2-2.0 % Immature Granulocytes Pct Auto0.30.0-0.5 %Neutrophils Absolute Auto3.81.4-6.5 10 3/uLLymphocytes Absolute Auto2.41.2-3.8 10 3/uLMonocytes Absolute Auto0.50.3-0.8 10 3/uLEosinophils Absolute Auto0.10.0-0.7 10 3/uLBasophils Absolute Auto0.00.0- 0.1 10 3/uLImmature Granulocytes Abs Auto0.020.00-0.03 10 3/uLPerforming Lab:see noteML - [facility] LBMR cervical spine wo con Reviewed date:04/17/2024 06:15:18 PM Interpretation: Performing Lab: Notes/Report: Source Facility: [place] [address] Magnetic Resonance Report Signed Patient: SHEILA BRADLEY MR#: [id number] : 1985 Acct:[id number] Age/Sex: 39 / F ADM Date: 04/16/24 Loc: MRI Attending Dr: Desmond Leavitt NP Ordering Physician: Desmond Leavitt NP Date of Service: 04/16/24 Procedure(s): MR cervical spine wo con Accession Number(s): [id number] cc: Desmond Leavitt NP; Danny Obrien M.D. [place] [address] Patient Name: SHEILA BRADLEY MRN: [id number] date: 1985 Sex: F Assigned Patient Location: MRI Current Patient Location: Accession/Order Number: [id number] Exam Date: 04/16/2024 06:50 Report Date: 04/17/2024 [...] Dictated By: Akshat Julien M.D. Signed By: 04/17/24841 DD/ 8 TD/TT: Basket Person:FLORENCE Reviewed date:02/07/2025 03:07:58 PM Interpretation: Performing Lab: Notes/Report: [facility] ,Wivz113.050.0-170.0 ug/dLPerforming Lab:see noteML - [facility] LB Reason For Referral Diagnosis 1 Chronic migraine (G4 3.709) Diagnosis 2 Cervical dystonia (G 24.3) Diagnosis 3 Cervical pain (neck) (M54.2) Referral Organization [facility] Referring Provider First Name Vel Referring Provider Last Name [facility] Referring Provider [facility] Referred Provider Dominic Irby Referred Provider Specialty Neurology Referral Priority Routine Diagnosis 1 Cervical pain (neck) (M54.2) Referral Organization [facility] Referring Provider First Name Vel Referring Provider Last Name [facility] Referring Provider [facility] Referred Provider Specialty Pain Medicin e Referral Priority Routine Medications Medication SIG (Take, Route, Frequency, Duration) Notes Start Date End Date Status diazePAM 5 MG TAKE 1 TABLET BY [facility] 3 TIMES A DAY NEEDED FOR 7 DAYS; Duration: 7 ActiveDiclofenac Sodium 75 MG1 tablet as needed Orally Twice a day; Duration: 30 days5ActiveOndansetron 4 MG1 tablet on the tongue and allow to dissolve Orally qid5ActiveValium 5 MG1 tablet as needed Orally tid - PRN; Duration: 7 days5ActivetraZODone HCl 50 MG1 tablet at bedtime as needed Orally Once a day; Duration: 30 days5ActivetiZANidine HCl 4 MG2 tabs Orally qhs; Duration: 30 days5ActiveHYDROcodone-Acetaminophen 5-325 MG1 tablet as needed Orally every 6 hrs; Duration: 7 days5ActivePramipexole Dihydrochloride 1 MGTAKE 3 TABLETS BY MOUTH EVERY DAY; Duration: 30 daysActive Social History Tobacco Use: Social History Observation Description Date Details (start date - stop date) Never Smoker NA - NA Tobacco Use/Smoking Question Answer Notes Patient is a nonsmoker Alcohol Screen (Audit-C) Question Answer Notes Did you have a drink containing alcohol in the p ast year? No Lgwtfe0MlnezxxrqrqtgwEmcpujnkBEJXQ-Z (Standard) Question Answer Notes Did you have a drink containing alcohol in the p ast year? Yes How often did you have six or more drinks on one occasion in the past year?Never (0 point)How many drinks did you have on a typical day when you were drinking in the past year?1 or 2 drinks (0 point)How often did you have a drink containing alcohol in the past year?Monthly or less (1 point)Lsrwpg9PclifkwctjjscyDkuwicjg Problems Problem Type SNOMED Code ICD Code Onset Dates Problem Status W/U Status Risk Notes Problem Syncope and collapse (268834130) Syncope and collapse (R55) ActiveconfirmedProblemBenign tumor of breast (456347710)Benign neoplasm of unspecified breast (D24.9)ActiveconfirmedProblemChronic intractable migraine without aura (185675055120649)Chronic migraine without aura, intractable, without status migrainosus (G43.719)ActiveconfirmedProblemRestless legs syndrome (57415124)Restless leg syndrome (G25.81)ActiveconfirmedProblemSleep apnea (01773298)Sleep apnea (G47.30)ActiveconfirmedProblemInsomnia (556116494)Insomnia (G47.00)ActiveconfirmedProblemHypertriglyceridemia (672475167) Hypertriglyceridemia (E78.1)ActiveconfirmedProblemNephrolithiasis (27975076) Nephrolithiasis (N20.0)ActiveconfirmedProblemMedication overuse headache (025804696)Medication overuse headache (G44.40)ActiveconfirmedProblemWell adult (896367305)Well adult (Z00.00)ActiveconfirmedProblemConjunctivitis (2675011) Conjunctivitis (H10.9)ActiveconfirmedProblemChronic migraine (221152578)Chronic migraine (G43.709)ActiveconfirmedProblemRestless legs (99489878)Restless legs (G25.81)ActiveconfirmedProblemNeck pain (54906511)Cervical pain (neck) (M54.2) ActiveconfirmedProblemCervical dystonia (81385142)Cervical dystonia (G24.3) ActiveconfirmedProblemAcute urinary tract infection (855578609)Acute UTI (N39.0) ActiveconfirmedProblemSpasm (29769253)Trapezius muscle spasm (M62.838)Active confirmedProblemDiffuse pain (7507147)Diffuse pain (R52)ActiveconfirmedProblem Hyperlipidemia (50979152)Other hyperlipidemia (E78.49)Activeconfirmed Vital Signs Temperature 98.5 degrees Fahrenheit 03/09/2025 Blood pressure cpluvlepf67 mm Hg03/09/20253824Tyfwao36 in03/09/2025lood pressure khhgpoxj198 mm Hg03/09/20254504Nefnzb788.8 lbs1MI30.5 kg/m203/09/2025 Encounters Encounter Location Date Provider Diagnosis [address] [address] 04/21/2024 Vel Hoy Restless leg syndrom e G25.81 ; Chronic migraine G43.709 and Cervical dystonia G24.[address] [address] 07/31/2024 Vel Hoy Acute non-recurrent sinusitis, unspecified location J01.90 and Nasal congestion R09.[address] [address] 09/18/2024 Vel Hoy Chronic migraine G43.709 ; Cervical pain (neck) M54.2 and Cervical dystonia G24.[address] [address] 10/09/2024 Vel Hoy Cervical dystonia G2 4.3 and Cervical pain (neck) M54.2 [facility] [address] [facility] [address] 12/12/2024 Vel Hoy Restless leg syndrom e G25.81 ; Trapezius muscle spasm M62.838 and Insomnia G47.00 [facility] [address] [facility] [place] [address] 02/02/2025 Vel Hoy Cervical pain (neck) M54.2 and Well adult exam Z00.00 [facility] [address] [facility] [address] 02/13/2025 Vel Hoy Well adult Z00.00 [facility] [address] [facility] [place] [address] 04/17/2024 Vel Hoy [facility] [facility] [place] [address] 06/19/2024[facility] [facility] [place] [address]/Doug [facility] [facility] [place] [address] [facility] [place] [address]/05/2024Doug HoyCervical pain (neck) M54.2[facility] [facility] [place] [address] 10/15/2024Doug HoyCervical dystonia G24.3[facility] [facility] [place] [address]/Doug [facility] [facility] [place] [address]/[facility] [facility] [place] [place] [address]/ Vel [facility] [facility] [place] [address]/[facility] [facility] [place] [address]/Doug HoyBSCL [facility] [facility] [place] [address]/Doug HoyNephrolithiasis N20.0 [facility] [facility] [place] [address] 03/11/2025Doug HoyNephrolithiasis N20.0BuSt. [facility] [facility] [place] [address]/Doug HoyNephrolithiasis N20.0 and Cervical pain (neck) M54.2[place] [address] [facility] [place] [address]/02/2025Doug Hoy Assessments Encounter Date Diagnosis (ICD Code) Assessment Notes Treatment Notes Treatment Clinical Notes Section Notes 04/21/2024 Restless leg syndrome (ICD-10 - G25.81) 4Chronic migraine (ICD-10 - G43.709)5Acute non-recurrent sinusitis, unspecified location (ICD-10 - J01.90)Rest and drink more liquids, especially water. You may use a humidifier or vaporizer to help keep the drainage moist. Wjss-ayx-iqjnvnn Nasal Saline may help the stuffy and runny nose. Use Ibuprofen and or Tylenol as needed for fever, chills, body aches or pain. Children 5 years old should not be given pxzl-rdo-fzwbfli cough and cold medications such as guaifenesin and dextromethorphan. If you're over age 5, you may try ggdu-rww-ckinvxx cold medications such as guaifenesin and dextromethorphan, or multi-symptom cold reliever such as Dayquil to help reduce the symptoms. Antibiotics have been prescribed. You should take these until completed and follow the directions. Antibiotics can sometimescause upset stomach, and in rare cases, serious allergic reactions or serious gastrointestinal problems. If you start having severe abdominal pain, severe vomiting, or bloody diarrhea, you should be reevaluated by your physician or urgent care immediately. Follow up with your Primary Care Provider or return to clinic if symptoms do not improve within 3-5 days09/18/2024hronic migraine (ICD-10 - G43.709)09/18/2024ervical pain (neck) (ICD-10 - M54.2)10/09/2024 Cervical pain (neck) (ICD-10 - M54.2)10/09/2024ervical dystonia (ICD-10 - G24.3)12/12/2024Restless leg syndrome (ICD-10 - G25.81)12/12/2024Trapezius muscle spasm (ICD-10 - M62.838)02/02/2025Well adult exam (ICD-10 - Z00.00) 02/02/2025ervical pain (neck) (ICD-10 - M54.2)02/13/2025Well adult (ICD-10 - Z00.00)03/09/2025Nephrolithiasis (ICD-10 - N20.0)if not better - needs ct scan for kidney stone bsujfglr79/01/2025ervical pain (neck) (ICD-10 - M54.2) 10/15/2024ervical dystonia (ICD-10 - G24.3)03/11/2025Nephrolithiasis (ICD-10 - N20.0)03/19/2025Nephrolithiasis (ICD-10 - N20.0)03/19/2025ervical pain (neck) (ICD-10 - M54.2)12/12/2024Insomnia (ICD-10 - G47.00)09/18/2024ervical dystonia (ICD-10 - G24.3)04/21/2024ervical dystonia (ICD-10 - G24.3)07/31/2024Nasal congestion (ICD-10 - R09.81)09/18/2024OtherRecommended to rest and use a heating pad on the area. Take NSAIDs for pain as kmgxth2510/09/2024OtherRecommended to rest and use a heating pad on the area. Take NSAIDs for pain as nfmrjl6302/02/2025 OtherRecommended to rest and use a heating pad on the area. Take NSAIDs for pain as sllvlj9903/09/2025OtherRecommended to rest and use a heating pad on the area. Take NSAIDs for pain as needed Plan Of Treatment Pending Test Test Name Order Date CMP (COMPLETE METABOLIC PANEL) 4 CMP (COMPLETE METABOLIC PANEL) 3 HEMOGLOBIN A1C (GLYCO) 10/26/2023 HEMOGLOBIN A1C (GLYCO) 02/02/2025 IRON, TOTAL 02/02/2025 IRON, TOTAL 10/26/2023 LIPID PANEL (CHOL/TRIG/HDL/LDL) 10/26/19 24 LIPID PANEL (CHOL/TRIG/HDL/LDL) 02/03/20 25 CBC WITH DIFF (EXP 03/2025) 10/26/2023 VITAMIN D, 25 LEVEL (TOTAL) 10/26/2023 VITAMIN D, 25 LEVEL (TOTAL) 02/02/2025 T3 FREE, T4 FREE and TSH 03/19/2023 Insulin Level 02/02/2025 Insulin Level 10/26/2023 STOOL OCCULT BLOOD 10/26/2023 CBC AUTO DIFF 03/19/2023 CORTISOL AM 10/26/2023 GLYCOHEMOGLOBIN A1C 03/19/2023 LIPID PROFILE 03/19/2023 CT ABD and PELVIS WO CON 03/11/2025 THYROID PANEL (T4/TSH/FREE T3) 4 THYROID PANEL (T4/TSH/FREE T3) 5 CMP (COMP MET GUTIERREZ) w/eGFR CKD-EPI 2024 CBC WITH DIFF 02/02/2025 Insurance Providers Payer Name Payer Address Payer Phone Subscriber Number Group Number Insured Name Patient Relationship to Insured Coverage Start Date Coverage End Date MISSAEL FALLON [address] [place] [address] [id number] Alcides Bradley Spouse - patient is the spouse of the insured Medications Administered Medication Instructions Date of Administration Dosage Notes Ketorolac Tromethamine mgKetorolac Bjeuqrjrimgh84/01/202560 mgKetorolac Tromethamine mgKetorolac Tjmrotqouhkq80/15/202560 mgOrphenadrine Citrate mgOrphenadrine Cqyduht04 mgOrphenadrine Ncpenzm1902/02/2025 60 mgTriamcinolone 40 mg/ml mgTriamcinolone 40 mg/ml mg Medical (General) History Medical History History ICD Code Chronic migraine G43.709 Cervical pain (neck) M54.2 Cervical dystonia G24.3 Insomnia G47.00 Restless leg syndrome G25.81 Diffuse pain R52 Medication overuse headache G44.40 Surgical History Surgery Date(Month/Year) Right breast lump removal 06/17/2024 LT breast lumpectomy w/nippl e reconstruction, RT breast I&D of cyst w/nipple reconstruction- Jonas 05/15/2023 Warren Teeth AddenoidectomyTonsilectomyTotal HysterectomyEGDGall BladderLaproscopy X 2
--- OUTSIDE RECORDS SUMMARY | 2025-04-14 15:26 | XMS_ITS | Clinical Summary ---
Author Organization [facility] Address [address] [place] [address], [address] [place] [address] Care Team Providers Care Banquet Server Name Role Phone Unavailable Primary Care Provider Unavailabl e Social History Tobacco UseTypesPacks/DayYears UsedDateSmoking Tobacco: Never Assessed CommentsUnknownSex and Gender InformationValueDate RecordedSex Assigned at Not on fileLegal QdxBqfypi19/24/2013 10:16 PM EDTGender IdentityNot on file Sexual OrientationNot on file Plan of Treatment Not on file
--- OUTSIDE RECORDS SUMMARY | 2025-04-14 15:26 | XMS_ITS | Encounter Summary ---
Author Organization [facility] Address [address] [facility] [place] [address] Care Team Providers Care Die Cutter Diamond Name Role Phone Danny Obrien MD Primary Care Provider [phone] Encounter Details DateTypeDepartmentCare Team (Latest Contact Info)Qhzdauzstdb87/25/2025amboo flowsheet [facility] [address] [facility] [address] Tommie Raymond DO [address] [place]e Santiago, [place] [address] Social History Tobacco UseTypesPacks/DayYears UsedDateSmoking Tobacco: NeverSmokeless Tobacco: NeverAlcohol UseStandard Drinks/WeekCommentsNever0 (1 standard drink = 0.6 oz pure alcohol)Caffeine: noneCommentsNoSex and Gender InformationValueDate RecordedSex Assigned at BirthNot on fileLegal KipWdbelf68/15/2023 7:15 PM EDT Gender IdentityNot on fileSexual OrientationNot on filedocumented as of this encounter Plan of Treatment DateTypeDepartmentCare Team (Latest Contact Info)Zmsgscynyrs53/08/2026 8:30 AM ESTProcedure Visit ERIC [place]ELDS [address] [place] [address] Tommie Raymond DO [address] [place], [facility] documented as of this encounter Visit Diagnoses Not on filedocumented in this encounter Care Teams Team MemberRelationshipSpecialtyStart DateEnd Date Danny Obrien MD [address] [place] [phone] PCP - GeneralFamily Medicine12/12/22documented as of this encounter
--- OUTSIDE RECORDS SUMMARY | 2025-04-14 15:26 | XMS_ITS | Clinical Summary ---
Author Organization [facility] Address [address] [place] [address] Care Team Providers Care Human Resources Admin Name Role Phone Danny Obrien MD Primary Care Provider [phone] Allergies Active AllergyReactionsCriticalityNoted DateCommentsCaffeineGI intolerance, FjmdfkdDsmvci33/24/2013 Other Reaction(s): Vomiting WiittyqskblzrbutmWxhtlsp98/28/0918GwxkzrdkllMqajtTzubpy85/12/2025 Other Reaction(s): Other: See Comments Severe restless leg flare up FcqkacwqewuvurQuidl85/28/2025 Other Reaction(s): Worsens restless leg PtjamorvfmBwnkodihNgp91/12/7302KaeooxfpmqclBeava34/03/2025Wound Dressing AdhesiveUnknown,YoktPxd1507/28/2022 Medications MedicationSigDispense QuantityRefillsLast FilledStart DateEnd DateStatus ondansetron ODT (Zofran-ODT) 4 MG disintegrating tablet 10/31/2022ctive tiZANidine (Zanaflex) 4 MG tablet 1 (one) time each day at the same timeActive OnabotulinumtoxinA (BOTOX IJ) Active cyclobenzaprine (Flexeril) 5 MG tablet Take 5 mg by mouth as needed at bedtimeActive diazePAM (Valium) 10 MG tablet Active cetirizine (ZyrTEC) 10 MG tablet Take 10 mg by mouth in the morning.07/27/2022ctive HYDROcodone-acetaminophen ([place]) 5-325 MG tablet Take 0.5 tablets by mouth Daily as uavzff7103/21/2023ctive diclofenac (Voltaren) 50 MG EC tablet Indications:Neck painTAKE 1 TABLET BY MOUTH TWICE A DAY NEEDED FOR 10 DAYS 20 tablet 01/22/2024ctive Ivermectin (Soolantra) 1 % cream Indications:Other rosaceaApply thin layer to face, once daily at bedtime, 30 day supply 45 g 1105Active traZODone (Desyrel) 50 MG tablet 1 (one) time each day at the same time12/12/2024tive pramipexole (Mirapex) 1 MG tablet Indications:RLS (restless legs syndrome)Take 3 tablets (3 mg) by mouth at bedtime 90 tablet 3095Active doxycycline (Monodox) 100 MG capsule Indications:Cellulitis of left thumbTake 1 capsule, by mouth, BID, 30 days 60 capsule 1105Active cyproheptadine (Periactin) 4 MG tablet Indications:Intractable chronic migraine without aura and with status migrainosusTAKE 1 TABLET BY MOUTH AT BEDTIME 90 tablet 5Active fluconazole (Diflucan) 150 MG tablet Indications:Antibiotic-induced yeast infectionTake 1 tablet (150 mg) by mouth 1 (one) time for 1 dose Repeat in 7 days if symptoms persist. 2 tablet 5Active pyridoxine (B-6) 100 MG tablet Take 100 mg by mouth in the morning.04/14/2025Discontinued doxepin (SINEquan) 10 MG capsule Discontinued cyproheptadine (Periactin) 4 MG tablet Indications:Intractable chronic migraine without aura and with status migrainosusTake 1 tablet (4 mg) by mouth at bedtime 30 tablet Discontinued Active Problems ProblemNoted DateDiagnosed DateTrapezius muscle spasm01/21/2025bdominal pain 11/20/2024bnormal ultrasound of oxdlne1311/20/2024bnormal weight gain11/20/2024 Anqcflfaq31/03/2025hange in bowel habit11/20/20248835Tsbtupkgbcroqp05/03/2025 Elevated blood pressure reading without diagnosis of qebgnwrzgafl66/03/2025 Female pelvic congestion /03/2025Migraine without aura, intractable, with status hlfunukhvwm50/03/2025Other lyfkjnb1611/20/2024Pain in female genitalia on gggzzmcasdo95/03/2025Pelvic and perineal pain11/20/2024Vaginal dryness 11/20/2024Fibroadenoma of breast, right06/23/2024Mass of upper outer quadrant of right dabsyb8206/09/2024Mass of lower outer quadrant of right iheiwd3006/09/2024 Mxzkzwnp25/04/2024ervicogenic jveolnyx09/04/8307Ybdoevq77/04/2024Neck pain 08/23/2023hronic migraine without aura08/23/2023Insomnia, kkdouwmjxwe05/04/2024 Daytime rpiitvuzpz90/04/2313Yydectf22/04/4915Xyakrli76/04/2024Intracranial [employer] rnruzsrz86/04/2024LS (restless legs syndrome)08/23/2023Iron deficiency anemia, klnwsmmnmbo20/04/2024ervical kadrvtkt26/04/2024iffuse pain08/23/2023Masses of both /29/2023Difficulty gvxetjwqs16/18/4987Xdhlbblbmmqhig52/18/2023 Intrauterine ([facility])07/25/2016Preterm labor ([facility])07/19/2016 Encounters DateTypeDepartmentCare KzizGnvodidnszz99/25/2025 8:30 AM ESTOffice Visit [facility] [address] [place] [address] Tommie Raymond DO Well woman exam with routine gynecological exam; Antibiotic-induced yeast scywpvmfe54/25/2025amboo flowsheet [facility] [address] [facility] [place] [address] Tommie Raymond DO 04/14/20250897Wxrjot20/03/2025Refill [facility] [address] [place] [phone] Dominic Irby MD Intractable chronic migraine without aura and with status rntlgquxusa13/ Refill [facility] [address] [facility] [place] [address] Dominic Irby MD Intractable chronic migraine without aura and with status migrainosus (Primary Dx)02/09/2025Telephone [facility] [place] [facility] [address] [place] [address] Raven Silveira MA 01/28/2025 11:15 AM EDTOffice Visit [facility] [address] [place] [address] Kayla Bedolla MD Other rosacea (Primary Dx); Cellulitis of left thumb01/28/2025amboo flowsheet [facility] [address] [place] [address] Kayla Bedolla MD 01/28/20257123Kgqamx66/08/2025Results Follow-Up [facility] [address] [place] [address] Kayla Bedolla MD Aerobic culture, BZDHBK9901/21/2025 2:00 PM EDTOffice Visit [facility] [address] [place] [address] Kayla Bedolla MD Cellulitis of left thumb (Primary Dx)01/21/2025 8:00 AM EDTOffice Visit [facility] [address] [place] [address] Dominic Irby MD RLS (restless legs syndrome) (Primary Dx); Cervical dystonia; Cervicogenic headache; Intractable chronic migraine without aura and with status rjmlnrikpiy24/03/2025 Orders Only [facility] Department Unsolicited Kayla Bedolla MD 01/21/2025Telephone [facility] [address] [place] [address] Dominic Irby MD 01/21/2025amboo flowsheet [facility] [address] [place] [address] Dominic Irby MD 01/21/2025Travelfrom Last 3 Months Family History Medical HistoryRelationNameCommentsMigrainesMotherHypertensionOtherRelationName StatusCommentsBrotherAliveDaughter 1AliveDaughter 2AliveFatherAliveMotherAlive OtherSister 1AliveSister 2AliveSon 1AliveSon 2Alive Social History Tobacco UseTypesPacks/DayYears UsedDateSmoking Tobacco: NeverSmokeless Tobacco: Never Tobacco Cessation:Counseling Given: Not Answered Alcohol UseStandard Drinks/WeekCommentsNever0 (1 standard drink = 0.6 oz pure alcohol)Caffeine: noneCommentsNoSex and Gender InformationValueDate RecordedSex Assigned at BirthNot on fileLegal UvhHanirq83/15/2023 7:15 PM EDT Gender IdentityNot on fileSexual OrientationNot on file Last Filed Vital Signs Vital SignReadingTime TakenCommentsBlood Bfvykwuo327/8011 8:23 AM EST Iomfv978601/21/2025 8:00 AM EDTTemperature--Respiratory Rate--Oxygen Saturation-- Inhaled Oxygen Concentration--Zaihnz63 kg (167 lb 8 oz)04/14/2025 8:23 AM EST Vhinzm788.5 cm (5' 2 )01/21/2025 8:00 AM EDTBody Mass Index30.6409 8:00 AM EDT Plan of Treatment DateTypeDepartmentCare Team (Latest Contact Info)Uehsbivgalg38/08/2026 8:30 AM ESTProcedure Visit [facility] [address] [facility] [place] [address] Tommie Raymond DO [address] [facility] [place] [address] Procedures Procedure NamePriorityDate/TimeAssociated DiagnosisCommentsRESULTRoutine 01/21/2025 2:36 PM EDT CULTURE, AEROBIC HXSHSMGEMihoihj27/03/2025 2:36 PM EDT from Last 3 Months Results * RESULT (01/21/2025 2:36 PM EDT)ComponentValueRef RangeTest MethodAnalysis Time Performed AtPathologist SignatureRESULTCommentLABCORPComment:No growth in 36 - 48 hours.Specimen (Source)Anatomical Location / LateralityCollection Method / VolumeCollection TimeReceived Time01/21/2025 2:36 PM EDT01/21/2025 Narrative [facility] - 01/24/2025 10:07 AM EDT Performed at: 01 - Lab[address] ??[id number] Customer Sales Consultant: Bentley Leggett PhD, Phone: ??[phone] Authorizing ProviderResult TypeResult StatusEmily Chan BETANCOURT BLOOD ORDERABLESFinal ResultPerforming OrganizationAddressty/[facility] SpaldingPhone Number [facility] * Aerobic culture (01/21/2025 2:36 PM EDT)ComponentValueRef RangeTest Method Analysis TimePerformed AtPathologist SignatureCULTURE, AEROBIC BACTERIAFinal reportLABCORPSpecimen (Source)Anatomical Location / LateralityCollection Method / VolumeCollection TimeReceived Time01/21/2025 2:36 PM EDT01/21/2025 Narrative [facility] - 01/24/2025 10:07 AM EDT Performed at: [address] ??[id number] Customer Sales Consultant: Bentley Leggett PhD, Phone: ??[phone] Authorizing ProviderResult TypeResult StatusEmily Chan BETANCOURT MICROBIOLOGY - GENERAL ORDERABLESFinal ResultPerforming OrganizationAddressCity/State/ZIP Code Phone Number [facility] from Last 3 Months Insurance Care Teams Team MemberRelationshipSpecialtyStart DateEnd Date Danny Obrien MD [address] [place] [phone] PCP - GeneralFamily Medicine12/12/22
--- OUTSIDE RECORDS SUMMARY | 2025-04-14 15:26 | XMS_ITS | Clinical Summary ---
Author Organization [facility] Address [id number] [address] [place] [address] Care Team Providers Care Children Librarian Name Role Phone Filiberto Ying MD Primary Care Provider [phone] Allergies Active AllergyReactionsCriticalityNoted DateCommentsCaffeineVomitingMedium 07/19/2016DheShortness Of GaiugyZcob46/01/2017 Medications MedicationSigDispense QuantityRefillsLast FilledStart DateEnd DateStatus cyclobenzaprine (FLEXERIL) 10 mg tablet Take 10 mg by mouth nightly as needed for muscle spasms.Active magnesium oxide (MAG-OX) 400 mg tablet Take by mouth daily.Active ezs55-yfpt-dpelh acid 29 mg iron- 1 mg tablet,chewable Chew 1 tablet and swallow daily.Active BIOTIN ORAL Take by mouth.Active pyridoxine, vitamin B6, (vitamin B-6) 100 mg tablet Take 100 mg by mouth daily.Active propranolol (INDERAL) 10 mg tablet Take 10 mg by mouth daily.Active Active Problems ProblemNoted DateDiagnosed DateIntrauterine rtuorqyib93/07/2017Preterm labor 07/19/2016 Immunizations ImmunizationAdministration DatesNext QdbOpza4507/27/2016 Social History Tobacco UseTypesPacks/DayYears UsedDateSmoking Tobacco: NeverSmokeless Tobacco: NeverAlcohol UseStandard Drinks/WeekCommentsNo0 (1 standard drink = 0.6 oz pure alcohol)ChildcareAnswerDate QieadglcRgfbdhnosGgovxar75/12/2019EmploymentAnswer Date VbybkdgrYhstumqmskUteglvg18/12/2019Purpose - LifeAnswerDate RecordedPurpose and direction in llfrNydttby99/11/2021CommentsNoSex and Gender InformationValueDate RecordedSex Assigned at BirthNot on fileLegal SexFemale 02/29/2016 11:57 AM EDTGender IdentityNot on fileSexual OrientationNot on file Last Filed Vital Signs Vital SignReadingTime TakenCommentsBlood Hwkuifig818/66007/27/2016 8:00 AM EST Zgnrc255807/27/2016 8:00 AM LTVXbrumnwmerf74.3 ??C (97.3 ??F)07/27/2016 8:00 AM ESTRespiratory Svit405907/27/2016 8:00 AM ESTOxygen Urkkkqshni133%07/25/2016 10:45 PM ESTInhaled Oxygen Concentration--Ffjido11.1 kg (159 lb)07/25/2016 8:01 PM EST Shvuvd978.5 cm (5' 2 )07/25/2016 8:01 PM ESTBody Mass Index29.0807/25/2016 8:01 PM EST Plan of Treatment Health MaintenanceDue DateLast DoneCommentsDepression Soysuxugh84/19/1999Tobacco Zzrzofeva18/19/1999Adult BMI Fkcngsbda14/19/2005Pap Smear01/07/2008Influenza Guntyoy5201/19/2025DTaP,Tdap and Td Vaccines (2 - Td or Tdap) Medical Devices Not on file Insurance Care Teams Team MemberRelationshipSpecialtyStart DateEnd Date Filiberto Ying MD [facility]07/25/16
--- OUTSIDE RECORDS SUMMARY | 2025-04-14 15:26 | XMS_ITS | Clinical Summary ---
Author Organization [facility] Address [address] [place] [address] Care Team Providers Care Senior Manager Name Role Phone Danny Obrien MD Primary Care Provider [phone] Kenna Sheehan PA-C Unavailable [phone] Allergies Active AllergyReactionsCriticalityNoted DateCommentsAdhesiveRash,Other: See BmplbvlbCxlsct06/10/2023 Rash and blisters YoubuodqPhwmgrjoTnhgpl94/24/2013DheShortness of NtbvniUsqh00/24/2013Droperidol Other: See GffmmybyZwdfbr54/12/2025 Severe restless leg flare up MvvcrpqqgsWkxpeykfEht51/12/2023 Medications MedicationSigDispense QuantityRefillsLast FilledStart DateEnd DateStatus cetirizine [...] by mouth, BID, 30 days5Active Encounters DateTypeDepartmentCare FoskHejvctqpspk18/06/2025 10:00 AM EDTOffice Visit Neurology [address] [place] [address] [place] [address] Samuel Lira MD Chronic migraine without aura, with intractable migraine, so stated, with status migrainosus (Primary Dx); Neck pain02/23/20253240Npodov67/16/2025 Get Medical Advice Neurology [address] [place] [address] [place] [phone] Samuel Lira MD Needing an apptfrom Last [...] drink = 0.6 oz pure alcohol)PHQ-2AnswerDate RecordedPHQ-2 mduct880rea Deprivation Index AnswerDate RecordedNational Score (1-100), lower number is lower risk61 01/12/2023State Score (1-10), lower number is lower xxfw250ata from: https://www.neighborhoodatlas.[facility]/. Last address used for wkeyassxmkx[address] [place], [place] [address]/12/2023CommentsNoSex and Gender InformationValueDate RecordedSex Assigned at VdorvOillxp94/10/2023 1:33 AM EST Legal OhhDdkljs10/16/2013 4:52 PM ESTGender FmtfcgzsSbulzo32/10/2023 1:33 AM EST Sexual HubwdapovfwKvnbwmvc52/10/2023 1:33 AM ESTOccupationIndustryJob Start Date Job End DateUNKNOWNNot on fileNot on fileNot on file Last Filed Vital Signs Vital SignReadingTime TakenCommentsBlood Uqvxcssc191/7110 9:52 AM EDT Esnif326202/23/2025 9:52 AM PKTEpkuifhiclg21.6 ??C (97.8 ??F)07/28/2022 1:01 PM ESTRespiratory Xsih719506/13/2012 9:35 AM ESTOxygen Juzwcvjnok53%02/23/2025 9:52 AM EDTInhaled Oxygen Concentration--Uvxbxl38.4 kg (166 lb 1.9 oz)02/23/2025 9:52 AM FQRZuiiae386.5 cm (5' 2 )10/29/2024 4:09 PM EDTBody Mass Index30.38010/29/2024 4:09 PM EDT Plan of Treatment DateTypeDepartmentCare Team (Latest Contact Info)Segaywkoqzh16/07/2026 8:30 AM ESTOffice Visit Neurology [address] [place] [address] [place] [address] Samuel Lira MD [address] [place] [address] Please schedule 3 and 6 month follow up Botox, split new slot if needed and let Jorge Alberto caruso know08/26/2025 11:30 AM EDTOffice Visit Neurology [address] [place] [address] [place] [address] Samuel Lira MD [address] [place] [address] Please schedule 3 and 6 month follow up Botox, split new slot if needed and let Jorge Alberto caruso knowHealth MaintenanceDue DateLast DoneCommentsAnxiety Screening 2005Depression Utisraeha34/19/2005HIV Ezklbmbrh25/19/2005Hepatitis C Chprwnmrb68/19/2005Hepatitis B Vaccine (1 of 3 - 19+ 3-dose series)2006 Cervical Cancer Wtnachlbn37/19/2008HPV Vaccine (1 - 3-dose SCDM series) 2014Covid-19 Vaccine (2024- season)2025Influenza Vaccine (#1) 2025DTaP,Tdap,Td Vaccine (3 - Td or Tdap), 07/27/2016 Insurance * Guarantor: Jovanna Bradley TypeRelation to PatientDate of PhoneBilling AddressPersonal/AwcjiaFbfa1987 na (Work) [address] [place] [address] Care Teams Team MemberRelationshipSpecialtyStart DateEnd Date Danny Obrien MD PCP - GeneralFamily Medicine06/05/12 Kenna Sheehan PA-C [address] [place] [address] ReferringNeurology07/19/22
--- OUTSIDE RECORDS SUMMARY | 2025-04-14 15:31 | XMS_ITS | CCD ---
Author Organization [facility] Care Team Providers Care Event Decorator Name Role Phone MD Filiberto Obrien Primary Care Provider [phone] PURVI Sheehan Attending Provider [phone] ., DR DE LOS SANTOS [...] ., DR CHARISMA Mckoy Attending Unavailable Filiberto Obrine Unavailable Unavailable Unavailable MD Filiberto Obrien Primary Care Provider [phone] DO Dano Pyle Attending Provider DO Roseanne Castellanos Attending Provider MD Romero Jones Referring Provider Isrrael, Dr. Soraya Mojica Attending Unavailab le Isrrael, Dr. Soraya Mojica Referring Unavailab le Stepan, Dr. Filiberto Fuller Primary Care Unavail able Unavailable Unavailable Filiberto Obrien MD Primary Care Provider [phone] Kenna Sheehan PA-C Unavailable [phone] [facility]. Saeed Jean-Baptiste Attending Unavailable Stepan, Dr. Filiberto Fuller Primary Care Unavail able Emanuel, Dr. Saeed Stahl Referring Unava ilneris Castellanos, Dr. Saeed Stahl Attending Unava ilable Stepan, Dr. Filiberto Fuller Primary Care Unavail able Emanuel, Dr. Saeed Stahl Referring Unava ilable Emanuel, Dr. Saeed Stahl Referring Unava ilneris Obrien, Dr. Filiberto Fuller Primary Care Unavail able Emanuel, Dr. Saeed Stahl Attending Unava ilSoryaa Mcnair Attending Unavailable Soraya Cage Referring Unavailable Stepan, Dr. Filiberto Fuller Primary Care Unavail able Romero Jones Attending Unavailable Stepan, Dr. Filiberto Fuller Primary Care Unavail able Emanuel, Dr. Saeed Stahl Referring Unava ilneris Obrien, Dr. Filiberto Fuller Primary Care Unavail able Emanuel, Dr. Saeed Stahl Attending Unava ilable Emanuel, Dr. Saeed Stahl Attending Unava ilable Stepan, Dr. Filiberto Fuller Primary Care Unavail able Emanuel, Dr. Saeed Stahl Referring Glova MD Filiberto Biggs Primary Care Provider [phone] LONNY Menchaca Attending Provider MD Filiberto Obrien Primary Care Provider [phone] LONNY Menchaca Attending Provider DO Dano Pyle Attending Provider [phone] MD Filiberto Obrien M Primary Care Provider Filiberto Obrien MD Primary Care Provider [phone] MD Filiberto Obrien Primary Care Provider [phone] DO Dano Pyle Attending Provider Reuben Bauman MD Attending Unavailable Filiberto Obrien MD Primary Care Provider [phone] Jonas OQUENDO, Dano Attending Provider Babar Singh PA-C Emergency Provider [phone] Filiberto Obrien MD Primary Care Provider [phone] Filiberto Obrien MD Primary Care Provider [phone] Dano Pyle DO Attending Provider Babar Singh PA-C Emergency Provider Luis Goins DO Emergency Provider [phone] Filiberto Obrien MD Primary Care Provider [phone] Peg Ruiz DO Emergency Provider Filiberto Obrien MD Primary Care Provider [phone] Filiberto Obrien MD Primary Care Provider [phone] Filiberto Obrien MD Primary Care Provider [phone] DANO PYLE Attending Unavailable CHIOMA, BAN A Attending Unavailable SIS IRBY Attending Unavailable BAN BEDOLLA Attending Unavailable SIS IRBY Referring Unavailable SIS IRBY Attending Unavailable PETKIRA, BAN A Attending Unavailable PETKIRA, BAN A Attending Unavailable DAVID SULLIVAN Attending Unavailable WEISSWANG, DAVID Referring Unavailable HOY, FILIBERTO M Primary Care Unavailable WEISSWANG, DAVID Attending Unavailable WEISSWANG, DAVID Referring Unavailable HOY, FILIBERTO M Primary Care Unavailable WEISSWANG, DAVID Attending Unavailable WEISSWANG, DAVID Referring Unavailable HOY, FILIBERTO M Primary Care Unavailable Filiberto Obrien MD Primary Care Provider [phone] Filiberto Obrien Primary Care Unavailable Babar Singh Admitting Unavailable Babar Singh Attending Unavailable Filiberto Obrien Primary Care Unavailable Luis Goins Admitting Unavailable Luis Goins Attending Unavailable Peg Ruiz Admitting Unavailable Peg Ruiz Attending Unavailable Filiberto Obrien Primary Care Unavailable Liss Cheung Admitting Unavailable Liss Cheung Attending Unavailable Miyazlottie, Dano Attending Unavailable Filiberto Obrien Primary Care Unavailable Itzkowitz, Dano Admitting Unavailable Filiberto Obrien Primary Care Unavailable Itzkowitz, Dano Admitting Unavailable Itzlottie, Dano Attending Unavailable Liss Cheung Attending Provider Allergies Allergy ClassificationReported Allergen(s)Allergy TypeDate of OnsetReaction(s) Facility (20 sources)Caffeine; Translations: [Caffeine]Drug Ebfkkxw08-24-3661Ygnhthjk, GI intolerance, [facility] (20 sources)DHE; Translations: [Dhe]Allergy to ljecccflr60-93-5612Yetvqqweq of [facility] (20 sources)Adhesive agent; Translations: [ADHESIVE]Propensity to adverse reactions to zzyu98-36-9779Pslkj: See [facility] (20 sources)Adhesive Tape; Translations: [adhesive tape]Allergy to substance (finding)98-17-9118[facility]vshVicmkjuteBerger [facility] (9 sources)prasterone; Translations: [DHEA CAPS]Drug Allergy-[facility] 250 DO Work Phone: (20 sources)Metoprolol; Translations: [METOPROLOL]Drug Eibohga59-51-9427ZitmwvacCh[facility]icothe Va [facility] (20 sources)Metoclopramide; Translations: [metoclopramide]Drug Glsqmgx58-40-7827 [facility] (20 sources)DihydroergotamineDrug Xjxylel22-83-3637DaiotyhHNFE Healthcare (20 sources)Wound Dressing AdhesiveDrug Likebbfuofi21-22-3182RekjsaiCentra [facility] (7 sources)Droperidol; Translations: [DROPERIDOL]Drug Qxutojt53-71-7368Rirmq: See [facility] (19 sources)Promethazine; Translations: [promethazine]Drug Mixnxrx31-10-0727 OtherMiami [facility] Hospital (16 sources)DroperidolPropensity to adverse uihbxitpr94-99-4885QkhzeINQQ Healthcare (1 source)DihydroergotamineDrug Qrrxffd62-72-2692MrlzyobrhMiami Valley Hospital Repository (1 source)DroperidolDrug Kshftxv28-91-8668OvixxhcflMiami Valley Hospital Repository Medications Current Medications MedicationDrug Class(es)DatesSig (Normalized)Sig (Original)baclofen 10 mg oral tablet (20 sources)gamma-Aminobutyric Acid-ergic AgonistStart: 10-18-2023 End: 69-11-3243eled 1 tablet by mouth once daily as neededbaclofen 10 mg tablet Take 1 tablet by mouth once daily as needed. 30 tablet 10/18/2023 ActiveStart: 06-28-2022 End: 58-53-3971msua 1 tablet by mouth every eight hours as neededbaclofen (LIORESAL) 10 mg tablet Take 10 mg by mouth every 8 hours as needed. 10 in AM, 20 in PM 0 06/28/2022 01/19/2023 DiscontinuedComment on above:Take 10 mg by mouth every 8 hours as needed. 10 in AM, 20 in PMclindamycin 300 mg oral capsule (6 sources)Lincosamide AntibacterialStart: 01-21-2025 End: 90-48-2799lgwk 1 capsule by mouth twice dailyclindamycin (Cleocin) 300 MG capsule Indications: Cellulitis of left thumb Take 1 capsule by mouth bid x 7 days 14 capsule 01/21/2025 01/28/2025 Discontinued (Therapy completed) cyproheptadine hydrochloride 4 mg oral tablet (4 sources)Start: 90-32-9123gsxf 1 tablet by mouth at bedtimecyproheptadine (Periactin) 4 MG tablet Indications: Intractable chronic migraine without aura and with status migrainosus TAKE 1 TABLET BY MOUTH AT BEDTIME 90 tablet 3 03/23/2025 ActiveStart: 03-02-2025 End: 17-67-4878hgpj 1 tablet by mouth at bedtimecyproheptadine (Periactin) 4 MG tablet Indications: Intractable chronic migraine without aura and with status migrainosus Take 1 tablet (4 mg) by mouth at bedtime 30 tablet 2 03/02/2025 03/23/2025 DiscontinuedStart: 06-13-2012 End: 32-49-9558hpxm 1 tablet by mouth three times dailycyproheptadine 4 mg tablet Take 1 tablet by mouth three times daily. 30 tablet 11 06/13/2012 023 Discontinued (Course of therapy completed)Comment on above:Take 1 tablet by mouth three times daily.diclofenac sodium 75 mg delayed release oral tablet (20 sources)Nonsteroidal Anti-inflammatory DrugStart: 31-66-7944kxzv 1 tablet by mouth twice dailyStart: 32-22-4107gyzy 1 tablet by mouth twice daily as needed diclofenac (Voltaren) 50 MG EC tablet Indications: Neck pain TAKE 1 TABLET BY MOUTH TWICE A DAY NEEDED FOR 10 DAYS 20 tablet 01/22/2024 ActiveStart: 06-29-2022 End: 32-80-3446zyignuheka (VOLTAREN) 1 % topical gel as needed. 0 06/29/2022 09/21/2023 DiscontinuedComment on above:as needed.doxepin hydrochloride 10 mg oral capsule (20 sources)Tricyclic AntidepressantStart: 43-53-0220xfpmcei (SINEquan) 10 MG capsule 09/18/2024 ActiveStart: 10-14-2019 End: 51-35-3733nksx 2 capsules by mouth once daily at bedtime as needed for headacheDoxepin 10 mg capsule Discontinued 20 MG PO Daily at bedtime as needed for HEADACHE October 13, 2019 11:00pm December 24, 2020 11:23amStart: 10-14-2019 End: 11-57-3391ipgn 20 mg by mouth once daily at bedtimeDoxepin Discontinued 20 MG PO Daily at bedtime October 14, 2019 12:00am December 24, 2020 12:23pm doxycycline monohydrate 100 mg oral capsule (4 sources)Tetracycline-class DrugStart: 48-47-9193oriv 1 capsule by mouth twice dailydoxycycline (Monodox) 100 MG capsule Indications: Cellulitis of left thumb Take 1 capsule, by mouth, BID, 30 days 60 capsule 11 01/28/2025 Active gabapentin 600 mg oral tablet (13 sources)Anti-epileptic AgentStart: 09-21-2023 End: 14-79-7109nwct 1 tablet by mouth once daily at bedtimegabapentin (NEURONTIN) 600 mg tablet Indications: RLS (restless legs syndrome) Take 1 tablet by mouth daily at bedtime for 180 days. 30 tablet 5 09/21/2023 Active ivermectin 10 mg/ml topical cream (19 sources)Antiparasitic, PediculicideStart: 33-16-3786Wdfwgkzbwq (Soolantra) 1 % cream Indications: Other rosacea Apply thin layer to face, once daily at bedtime, 30 day supply 45 g 11 11/11/2024 Activeminocycline 100 mg oral capsule (20 sources)Tetracycline-class DrugStart: 11-11-2024 End: 83-01-2503vzfx 1 capsule by mouth once dailyminocycline 100 MG capsule Indications: Other rosacea Take 1 capsule, by mouth, once daily, 30 days30 capsule 11 11/11/2024 01/28/2025 Discontinued (Side effects)Start: 07-30-2023 End: 09-66-3537rxxe 1 capsule by mouth once daily in the morningMinocycline 50 mg capsule Discontinued 50 MG PO Every morning June 10, 2024 12:00am October 22, 2024 2:51pm rosaceaStart: 10-14-2019 End: 08-78-7039rrry 1 capsule by mouth once dailyMinocycline 50 mg capsule Discontinued 50 MG PO Daily October 13, 2019 11:00pm May 01, 2023 11:55am acnetake 1 tablet by mouth once dailyMinocycline HCl 100 mg tablet Take 100 mg by mouth once daily. ActiveComment on above:Take 100 mg by mouth once daily. ondansetron 4 mg oral tablet (20 sources)Serotonin-3 Receptor AntagonistStart: 02-06-6492ouqn 1 tablet by mouth every six hoursStart: 10-31-2022 End: 64-11-3201dall 1 tablet by mouth every six hours as needed for nausea and vomitingOndansetron 4 mg tablet,disintegrating Discontinued 4 MG PO Q6H as needed for nausea and vomiting 04 21May 15, 2023 12:00am June 10, 2024 12:04pmStart: 58-40-3037slrw 1 tablet by mouth four times daily as needed ondansetron ODT (Zofran-ODT) 4 MG disintegrating tablet DISSOLVE 1 TABLET IN MOUTH 4 TIMES A DAY ASNEEDED 10/31/2022 ActiveStart: 12-24-2020 End: 31-73-7828gqve 1 tablet by mouth every six hours as needed for nausea and vomitingOndansetron Hcl (Zofran) 4 mg tablet Discontinued 4 MG PO Q6H as needed for nausea and vomiting 60 0 December 23, 2020 11:00pm June 10, 2024 12:04pm Start: 10-14-2019 End: 02-91-7411tpgs 1 tablet by mouth three times daily as needed for nausea and vomitingOndansetron 4 mg tablet,disintegrating Discontinued 4 MG PO Three times daily as needed for nausea and vomiting 7 2 0 October 13, 2019 11:00pm May 01, 2023 11:55amStart: 06-13-2012 End: 02-70-4788xfpwtxqlzxt, PF, 4 mg/2 mL Soln Indications: Headache(784.0) [...] ML IV OVER 30 MIN. May repeat h7hkijobsnmyb dihydrochloride 1 mg oral tablet (20 sources)Nonergot Dopamine AgonistStart: 01-21-2025 End: 68-15-4909zpov 3 tablets by mouth at bedtimepramipexole (Mirapex) 1 MG tablet Indications: RLS (restless legs syndrome) Take 3 tablets (3 mg) by mouth at bedtime 90 tablet 3 01/21/2025 ActiveStart: 93-37-2392sdis 2 tablets by mouth once daily at bedtime as neededStart: 06-28-2022 End: 50-37-6675sivg 1 tablet by mouth in the morningpramipexole (Mirapex) 1 MG tablet Take 1 mg by mouth in the morning. 06/28/2022 01/21/2025 Discontinued (Reorder)Start: 10-14-2019 End: 88-59-4827ftby 1 tablet by mouth once daily at bedtimePramipexole (Mirapex) 0.5 mg tablet Discontinued 0.5 MG PO Daily at bedtime October 13, 2019 11:00pm D ecember 2022 11:53am restless legComment on above:Take 1 mg by mouth once daily.SZSTANDARD1 cream (2 sources)Start: 72-46-0700Falnj: 88-76-9988PMDEFKZJYY4 cream Active 1 - 2 GM TOPICAL every 6 to 8 hours as needed for Pain 120 30 October 22, 2024 12:00am Buderer Compounded Item: Baclofen 2%, Cyclobenzaprine HCl 2%, Diclofenac Na 3%, Gabapentin 6%, Lidocaine HCl 2% Cream Sig: as directed rub 1 to 2 grams for 2 to 3 minutes every 6 to 8 hoursas needed TopicaltiZANidine 4 mg oral tablet (20 sources)Central alpha-2 Adrenergic AgonistStart: 49-60-1556dirg 1 tablet by mouth once daily at bedtimeStart: 15-75-6602yfIADuovhn (ZANAFLEX) 4 mg tablet Take 8 mg by mouth daily at bedtime. 06/08/2024 ActivetraMADol hydrochloride 50 mg oral tablet (8 sources)Opioid AgonistStart: 69-34-2897nnpDBHoy (ULTRAM) 50 mg tablet Take 50 mg by mouth. 06/17/2024 ActiveStart: 06-17-2024 End: 03-39-5509ndra 1 tablet by mouth every four to six hours as needed for pain Tramadol 50 mg tablet Discontinued 50 MG PO EVERY 4-6 HOURS as needed for pain 20 3 0 May 12:00am August 01, 2024 7:23am Mass of right breast Unspecified lump in the right breast, unspecified quadranttraZODone hydrochloride 50 mg oral tablet (11 sources)Serotonin Reuptake InhibitorStart: 32-79-2230tsqWDUgpe (Desyrel) 50 MG tablet 1 (one) time each day at the same time 12/12/2024 Activevitamin b6 100 mg oral tablet (20 sources)take 1 tablet by mouth in the morningpyridoxine (B-6) 100 MG tablet Take 100 mg by mouth in the morning. Active Completed/Discontinued Medications MedicationDrug Class(es)DatesSig (Normalized)Sig (Original)acetaminophen 300 mg / codeine phosphate 30 mg oral tablet (9 sources)Opioid AgonistStart: 05-15-2023 End: 19-69-2102ogbb 1 tablet by mouth every six hours as needed for pain Acetaminophen-Codeine 300-30 mg tablet Discontinued 1 TAB PO Q6H as needed for pain 20 5 0 2022 12:00am June 10, 2024 12:03pm Masses of both breasts Unspecified lump in the right breast, unspecified quadrant Unspecified lump in the left breast, unspecified quadrantacetaminophen 325 mg / HYDROcodone bitartrate 5 mg oral tablet (20 sources)Opioid AgonistStart: 06-19-2024 End: 49-08-4544tcfh 1 tablet by mouth every six hours as needed for pain Hydrocodone-Acetaminophen 5-325 mg tablet Discontinued 1 TAB PO Q6H as needed for pain 12 3 0 June 19, 2024 August 01, 2024 7:23am Acute torticollis TorticollisStart: 03-21-2023 End: 86-95-2217xopb 1 tablet by mouth once daily as needed for painHydrocodone- Acetaminophen 5-325 mg tablet Discontinued 1 TAB PO Daily as needed for Pain May 01, 2023 12:00am June 10, 2024 12:04pmStart: 06-29-2022 HYDROcodone-acetaminophen (NORCO) 5-325 mg per tablet as needed. 06/29/2022 ActiveStart: 10-22-2019 End: 71-68-5241eojh 1 tablet by mouth every six hours as needed for pain Hydrocodone-Acetaminophen 5-325 mg tablet Discontinued 1 TAB PO Q6H as needed for pain 10 2 0 2020December 24, 2020 11:15am Spasm of cervical paraspinous muscle Other muscle spasmStart: 10-14-2019 End: 16-80-7255wxnv 1 tablet by mouth every eight hours as needed for pain Hydrocodone-Acetaminophen ([place]) 5-325 mg tablet Discontinued 1 TAB PO Q8H as needed for pain 10 October 14, 2019 December 24, 2020 11:15am Pain, unspecified Comment on above:as needed.benzoyl peroxide 50 mg/ml topical solution (5 sources)Start: 07-30-2023 End: 76-16-3010vajjxta peroxide 5 % external wash Indications: Other rosacea Apply to affected areas, then rinse daily, 30 day supply 227 g 11 07/30/2023 11/11/2024 Discontinuedbiotin 5 mg oral capsule (8 sources) End: 42-12-7674xzogca 5 MG capsule Take by mouth. 11/20/2024 Discontinued onabotulinumtoxina 100 unt injection (20 sources)Acetylcholine Release InhibitorStart: 10-29-2024 End: 37-25-8992traeoh 1 dose by intramuscular injection every 30 tflh909 Units, INTRAMUSCULAR, ONCE (UP TO 30 DAYS AMB), 1 dose, On Sun10/29/24 at 1730, This record documents the total dose provided to patient. See progress note for specific locations and amounts administered. REFRIGERATE - Pharmaceutical Waste: Lab Pack -Start: 10-29-2024 End: 74-43-1029tbkqdmkzkycc toxin type A 200 Units injection (BOTOX)Start: 07-30-2024 End: 25-84-2306ghkoqp 1 dose by intramuscular injection every 30 dhwz037 Units, INTRAMUSCULAR, ONCE (UP TO 30 DAYS AMB), 1 dose, On Sun07/30/24 at 1700, This record documents the total dose provided to patient. See progress note for specific locations and amounts administered. REFRIGERATE - Pharmaceutical Waste: Lab Pack -Start: 07-30-2024 End: 20-57-1146kzohtqtmehkp toxin type A 200 Units injection (BOTOX)Start: 01-30-2024 End: 64-74-1121odohua 1 dose by intramuscular injection every 30 popn098 Units, INTRAMUSCULAR, ONCE (UP TO 30 DAYS AMB), 1 dose, On Sun01/30/24 at 1500, This record documents the total dose provided to patient. See progress note for specific locations and amounts administered. REFRIGERATE - Pharmaceutical Waste: Lab Pack -Start: 01-30-2024 End: 25-08-0681tymsubcnlnkn toxin type A 200 Units injection (BOTOX)Start: 10-31-2023 End: 66-37-8084nyirvyyrwlhf toxin type A 200 Units injection (BOTOX)Start: 10-31-2023 End: 58-78-5931mqrsmlgcywkv toxin type A 200 Units injection (BOTOX) OnabotulinumtoxinA (BOTOX IJ) ActiveOnabotulinumtoxinA (BOTOX IJ) Botox Active cefdinir 300 mg oral capsule (4 sources)Cephalosporin AntibacterialStart: 08-01-2024 End: 10-92-4317ojwm 1 capsule by mouth twice dailyCefdinir 300 mg capsule Discontinued 300 MG PO Twice daily July 31, 2024 11:00pm October 22, 2024 2 :52pmcephalexin 500 mg oral capsule (3 sources)Cephalosporin AntibacterialStart: 09-17-2024 End: 23-62-9830tjqg 1 capsule by mouth twice dailyCephalexin 500 mg capsule Discontinued 500 MG PO Twice daily 14 7 0 September 16, 2024 11:00pm October 22, 2024 2:52pmcetirizine hydrochloride 10 mg oral tablet (20 sources)Histamine-1 Receptor AntagonistStart: 10-14-2019 End: 55-14-0179jnsm 1 tablet by mouth once dailyCetirizine 10 mg tablet Discontinued 10 MG PO Daily June 10, 2024 12:00am October 22, 2024 2:52pm allergy symptomsComment on above:10 mg once daily.sugar-free cholestyramine resin 4000 mg powder for oral suspension (14 sources)Bile Acid SequestrantStart: 12-24-2020 End: 42-39-5110nqdq 1 dose by mouth onceCholestyramine-Aspartame (Questran Light) 4 gram powder Discontinued 4 GM PO before meals and at bedtime 210 2 December 23, 2020 11:00pm May 01, 2023 11:55am no meds 1 hr before/4-6 hr after dosecyclobenzaprine hydrochloride 5 mg oral tablet (20 sources)Muscle RelaxantStart: 01-19-2023 End: 17-00-7741hdbx 1 tablet by mouth once daily at bedtime as needed for muscle spasmsCyclobenzaprine 5 mg tablet Discontinued 5 MG PO Daily at bedtime as needed for spasms May 01, 2023 12:00am June 10, 2024 12:04pmStart: 10-14-2019 End: 02-19-8752kaxc 1 tablet by mouth once daily as needed for muscle spasms Cyclobenzaprine 10 mg tablet Discontinued 10 MG PO Daily as needed for Muscle Spasm October 13, 2019 11:00pm May 01, 2023 11:55amStart: 10-14-2019 End: 83-67-6328vxxb 2 tablets by mouth once daily at bedtimeCyclobenzaprine 10 mg tablet Discontinued 20 MG PO Daily at bedtime October 13, 2019 11:00pm May 01, 2023 11:55amStart: 10-14-2019 End: 83-85-5610rsbu 20 mg by mouth once daily at bedtimeCyclobenzaprine Discontinued 20 MG PO Daily at bedtime October 14, 2019 12:00am May 01, 2023 12:55pmComment on above:Take 1 tablet by mouth at bedtime as needed. diazePAM 5 mg oral tablet (20 sources)BenzodiazepineStart: 06-19-2024 End: 35-94-6240iwfj 1 tablet by mouth twice daily as needed for muscle spasms Diazepam (Valium) 5 mg tablet Discontinued 5 MG PO Twice daily as needed for muscle spasm 10 5 0 June 19, 2024 12:00am August 01, 2024 7:23am Acute torticollis TorticollisStart: 53-46-1986dnkx 1 tablet by mouth twice daily as needed for muscle spasmsComment on above:Take 10 mg by mouth twice daily as needed.L Norgest/E.Estradiol-E.Estrad (20 sources)Progestin, Estrogen, Progestin-containing Intrauterine DeviceStart: 10-14-2019 End: 90-99-7720dvei 1 tablet by mouth once dailyL Norgest/E.Estradiol-E.Estrad 0.15 mg-30 mcg (84)/10 mcg (7) tablets,dose pack,3 month Discontinued 1 TAB PO Daily October 14, 2019 12:00am May 01, 2023 12:55pmStart: 10-14-2019 End: 13-06-3906xhlg 1 tablet by mouth once dailyL Norgest/E.Estradiol-E.Estrad 0.15 mg-30 mcg (84)/10 mcg (7) tablets,dose pack,3 month Discontinued 1 TAB PO Daily October 13, 2019 11:00pm May 01, 2023 11:55amStart: 10-14-2019 End: 45-41-8551fwpe 1 tablet by mouth once dailyL Norgest/E.Estradiol-E.Estrad Discontinued 1 TAB PO Daily October 14, 2019 12:00am May 01, 2023 12:55pm Start: 10-14-2019 End: 13-71-9437lhyu 1 tablet by mouth once dailyL Norgest/E.Estradiol-E.Estrad Discontinued 1 TAB PO Daily October 13, 2019 11:00pm May 01, 2023 11:55am Start: 01-97-1711sxkz 1 tablet by mouth once dailyL Norgest/E.Estradiol-E.Estrad Active 1 TAB PO Daily October 13, 2019 11:00pmStart: 45-97-2635hmla 1 tablet by mouth once dailyL Norgest/E.Estradiol-E.Estrad Active 1 TAB PO Daily October 14, 2019 12:00am End: 56-88-8616jjtv 1 tablet by mouth once dailyL norgest/e.estradiol-e.estrad (Seasonique) 0.15-0.03 &0.01 MG tablet tablet TAKE 1 TABLET BY MOUTH EVERY DAY Oral for 11/20/2024 Discontinuedtake 1 tablet by mouth once dailyL norgest/e.estradiol-e.estrad (Seasonique) 0.15-0.03 &0.01 MG tablet tablet TAKE 1 TABLET BY MOUTH EVERY DAY Oral for Activeezetimibe 10 mg oral tablet (20 sources)Dietary Cholesterol Absorption InhibitorStart: 07-27-2022 End: 98-36-3194firrkitqv (Zetia) 10 MG tablet 05/08/2023 11/20/2024 Discontinued Comment on above:10 mg once daily.ferrous sulfate 325 mg oral tablet (20 sources)Start: 07-13-2022 End: 92-70-1474pfufgta sulfate 325 (65 Fe) MG tablet Daily. 07/13/2022 11/20/2024 Discontinued End: 33-21-7417mbbi 1 tablet by mouth in the morningFerrous Sulfate (IRON PO) Take 1 tablet by mouth in the morning. 11/20/2024 Discontinuedtake 1 tablet by mouth in the morningFerrous Sulfate (IRON PO) Take 1 tablet by mouth in the morning. ActiveComment on above:once daily.fludrocortisone acetate 0.1 mg oral tablet (9 sources)Start: 01-13-2023 End: 58-58-6827svbjxistkavyhqq (Florinef) 0.1 MG tablet 01/13/2023 11/20/2024 DiscontinuedStart: 87-17-1621zggi 1 tablet by mouth once dailyFludrocortisone Acetate 0.1 MG Oral Tablet Take 1 tablet daily Quantity: 90 Refills: 3 Ordered: 14-Nov-2022 Soraya Cage MD Start : 14-Nov-2022 Active1.5 ml fremanezumab-vfrm 150 mg/ml prefilled syringe (14 sources)Start: 10-14-2019 End: 58-42-7237Waeezlxcrgyl-Vfrm 225 mg/1.5 mL syringe Discontinued 1.5 ML SUBCUT every month October 13, 2019 11:00pm May 01, 2023 11:54am hydrocortisone 0.025 mg/mg topical ointment (8 sources)CorticosteroidStart: 02-06-2023 End: 92-45-8878pcftbyanggihmx 2.5 % ointment Indications: Allergic contact dermatitis, unspecified trigger Apply thin layer to affected areas twice a day as needed for flares 20 g 1 02/06/2023 11/20/2024 Discontinuedhyoscyamine sulfate 0.125 mg sublingual tablet (14 sources)Start: 10-14-2019 End: 22-03-3502vcma 1 tablet by mouth four times daily as needed for pain Hyoscyamine Sulfate 0.125 mg tablet, sublingual Discontinued 1 - 2 TAB PO Four times daily as needed for Abdominal Pain October 13, 2019 11:00pm December 24, 2020 11:24amlidocaine 0.05 mg/mg medicated patch (5 sources)Antiarrhythmic, Amide Local AnestheticStart: 06-19-2024 End: 25-45-5366dyddt 1 dose topically every twenty-four hoursLidocaine 5 % adhesive patch,medicated Discontinued 1 PATCH TOPICAL Q24H 15 0 June 19, 2024 12:00am October 22, 2024 2:51pm leave on most painful area for up to 12 hrs loratadine 10 mg disintegrating oral tablet (8 sources)Start: 01-13-2023 End: 96-19-2392MZM Allergy Relief 10 MG disintegrating tablet 01/13/2023 11/20/2024 DiscontinuedMagnesium (4 sources) End: 89-03-7100Qehfnvqst 250 mg tab 250 mg once daily. 0 01/12/2023 Discontinued Magnesium 250 mg tab 250 mg once daily. 0 ActiveComment on above:250 mg once daily.magnesium oxide 400 mg oral tablet (9 sources) End: 25-50-0615bhkptzoim oxide (Mag-Ox) 400 MG tablet Take by mouth Daily. 11/20/2024 DiscontinuedComment on above:Take 400 mg by mouth once daily. Magnesium Sulfate (1 source)Start: 06-13-2012 End: 22-02-4955rdbsra 2 g intravenously every hourMAGNESIUM SULFATE IN [...] mg oral capsule (8 sources)Start: 04-11-2022 End: 99-95-4496wtyy 1 capsule by mouth once daily as neededmeclofenamate (Meclomen) 100 MG capsule TAKE 1 CAPSULE BY MOUTH ONCE DAILY. MAY REPEAT in 4 TO 6 hours NEEDED. 04/11/2022 11/20/2024 Bcpgviwgamkg64 hr metFORMIN hydrochloride 500 mg extended release oral tablet (12 sources)BiguanideStart: 07-27-2022 End: 35-52-6185jryk 1 tablet by mouth every twenty-four hours in the morning metFORMIN XR (Glucophage-XR) 500 MG 24 hr tablet Take 500 mg by mouth in the morning. 07/27/2022 11/20/2024 Discontinued End: 39-75-3267lwbFWMPXB (GLUCOPHAGE) 500 mg tablet 500 mg once daily. 0 01/12/2023 DiscontinuedComment on above:500 mg once daily.24 hr metoprolol succinate 25 mg extended release oral tablet (18 sources)beta-Adrenergic BlockerStart: 12-03-2022 End: 38-22-0639nhab 1 tablet by mouth every twenty-four hours in the morning metoprolol succinate XL (Toprol-XL) 25 MG 24 hr tablet Take 1 tablet by mouth in the morning. 12/03/2022 11/20/2024 DiscontinuedStart: 12-03-2022 End: 56-39-2791qqhx 1 tablet by mouth every hourmetoprolol succinate ER (TOPROL XL) 25 mg 24 hr tablet Take 1 tablet by mouth every afternoon. 0 12/03/2022 09/21/2023 DiscontinuedStart: 76-69-1852zhsx 1 tablet by mouth once daily Metoprolol Succinate ER 25 MG Oral Tablet Extended Release 24 Hour TAKE 1 TABLET DAILY. Quantity: 90 Refills: 3 Ordered: 14-Nov-2022 Soraya Cage MD Start : 14-Nov-2022 ActiveComment on above:Take 1 tablet by mouth every afternoon. pantoprazole 40 mg delayed release oral tablet (20 sources)Proton Pump InhibitorStart: 10-14-2019 End: 79-34-2044bwey 1 tablet by mouth once dailyPantoprazole 40 mg tablet,delayed release (DR/EC) Discontinued 40 MG PO Daily October 13, 2019 11:00pm May 01, 2023 11:55am gerdphenazopyridine hydrochloride 200 mg delayed release oral tablet (8 sources)Start: 12-15-2022 End: 02-19-0529bnqm 1 tablet by mouth three times daily after mealtime phenazopyridine (Pyridium) 200 MG tablet TAKE 1 TABLET BY MOUTH THREE TIMES A DAY AFTER MEALS FOR 3DAYS 12/15/2022 11/20/2024 Discontinuedphentermine hydrochloride 37.5 mg oral tablet (17 sources)Sympathomimetic Amine AnorecticStart: 01-05-2023 End: 61-52-4301ulkj 1 tablet by mouth in the morningphentermine (Adipex-P) 37.5 MG tablet Take 37.5 mg by mouth in the morning. 01/05/2023 11/20/2024 Di scontinuedComment on above:Take 37.5 mg by mouth once daily.predniSONE 10 mg oral tablet (8 sources)Start: 11-11-2024 End: 78-57-0008itahikYBVV (Deltasone) 10 MG tablet Indications: Other rosacea Take 4 tabs daily x 3 days, take 2 tabs daily x 3 days, take 1 tab daily x 3 days. Total days: 21 tablet 11/11/2024 11/25/2024 Discontinued (Therapy completed)pregabalin 25 mg oral capsule (8 sources)Start: 03-06-2022 End: 61-70-1259vsad 1 capsule by mouth once daily at bedtimepregabalin (Lyrica) 25 MG capsule TAKE 1 CAPSULE BY MOUTH EVERY DAY AT BEDTIME 03/06/2022 11/20/2024 DiscontinuedPrenatal Pstaadws-Jv-Kgf-Fe-FA (P-D PLUS) Tab (2 sources) End: 31-35-3715byjt 1 tablet by mouth once dailyPrenatal Wpiylvzo-De-Qzk-Fe-FA (P-D PLUS) Tab Take 1 tablet by mouth once daily. 0 08/01/2022iscontinued (Course of therapy completed)take 1 tablet by mouth once dailyPrenatal Nszhlpho-Bp-Pdq-Fe-FA (P-D PLUS) Tab Take 1 tablet by mouth once daily. 0 ActiveComment on above:Take 1 tablet by mouth once daily.promethazine hydrochloride 25 mg oral tablet (20 sources)PhenothiazineStart: 09-27-2020 End: 69-32-4179cucq 1 tablet by mouth every six hours as needed for nausea and vomitingPromethazine 25 mg tablet Discontinued 25 MG PO Q6H as needed for nausea and vomiting September 11:00pm December 24, 2020 11:24amStart: 09-27-2020 End: 35-30-5390xulz 1 tablet by mouth four times daily as needed for nausea and vomitingPromethazine 25 mg tablet Discontinued 25 MG PO Four times daily as needed for nausea and vomiting September 26, 2020 11:00pm December 24, 2020 11:15ampropranolol hydrochloride 10 mg oral tablet (20 sources)beta-Adrenergic BlockerStart: 10-14-2019 End: 55-17-8991ydaz 2 tablets by mouth twice dailyPropranolol 10 mg tablet Discontinued 20 MG PO Twice daily October 13, 2019 11:00pm May 01, 2023 11:55am vagal vaso syndromStart: 10-14-2019 End: 24-66-4096prlo 20 mg by mouth twice dailyPropranolol Discontinued 20 MG PO Twice daily October 14, 2019 12:00am May 01, 2023 12:55pmStart: 06-25-2012 End: 94-72-8589juwx 1 tablet by mouth three times dailypropranolol 10 mg tablet Take 1 tablet by mouth three times daily. 90 tablet 11 06/25/2012 07/28/2022 Discontinued (Course of therapy completed) End: 89-38-7301sfofhpjemgg (Inderal) 40 MG tablet 1 (one) time each day at the same time. 11/20/2024 DiscontinuedComment on above:Take 1 tablet by mouth three times daily.rimegepant 75 mg disintegrating oral tablet (13 sources) End: 30-30-4304Zzrszpoqjl Sulfate (Nurtec) 75 MG tablet dispersible DISSOLVE ONE TABLET BY MOUTH AT ONSET OF MIGRAINE Oral for 30 01/20/2025 Discontinued (Therapy completed)simvastatin 40 mg oral tablet (20 sources)HMG-CoA Reductase Inhibitor End: 00-46-1056ijkg 1 tablet by mouth at bedtimesimvastatin (Zocor) [...] Reductase Inhibitor Antibacterial, Sulfonamide AntimicrobialStart: 12-15-2022 End: 83-45-4914dagb 1 tablet by mouth once in the morning, then take 1 tablet by mouth once at bedtimesulfamethoxazole-trimethoprim (Bactrim DS) 800-160 MG per tablet Take 1 tablet by mouth in the morning and 1 tablet before bedtime. 12/15/2022 01/20/2025 Discontinued (Therapy completed)24 hr topiramate 100 mg extended release oral capsule (20 sources)Start: 10-14-2019 End: 33-55-1918quel 1 capsule by mouth once dailyTopiramate 100 mg capsule,extended release 24hr Discontinued 300 MG PO Daily October 13, 2019 11:00pmDeceer 2022 11:56am migraineStart: 10-14-2019 End: 95-25-6039uofo 1 capsule by mouth once dailyTopiramate 100 mg capsule,extended release 24hr Discontinued 300 MG PO Daily October 14, 2019 12:00amMay 01, 2023 12:56pmStart: 10-14-2019 End: 32-99-1228bizv 1 capsule by mouth once dailyTopiramate 100 mg capsule,extended release 24hr Discontinued 300 MG PO Daily October 13, 2019 11:00pmDece2022 11:56amStart: 13-21-4979gzqu 300 mg by mouth once dailyTopiramate Active 300 MG PO Daily October 13, 2019 11:00pmStart: 10-14-2019 End: 13-86-4896yytj 300 mg by mouth once dailyTopiramate Discontinued 300 MG PO Daily October 14, 2019 12:00am May 01, 2023 12:56pm End: 98-72-0702Noqpyztxhw ER (Trokendi XR) 200 MG capsule sustained-release 24 hr 1 capsule. 11/20/2024 Discontinuedtrihexyphenidyl hydrochloride 2 mg oral tablet (8 sources)Start: 09-04-2022 End: 07-32-3432wmwh 1 tablet by mouth in the morningtrihexyphenidyl (Artane) 2 MG tablet Take 2 mg by mouth in the morning and 2 mg before bedtime. 09/04/2022 11/20/2024 Aguidstracoq88 hr venlafaxine 37.5 mg extended release oral capsule (8 sources)Serotonin and Norepinephrine Reuptake InhibitorStart: 05-01-2022 End: 94-72-8338gwek 1 capsule by mouth once daily at mealtimevenlafaxine XR (Effexor XR) 37.5 MG 24 hr capsule TAKE 1 CAPSULE BY MOUTH EVERY DAY WITH FOOD FOR 30 DAYS 05/01/2022 11/20/2024 Discontinuedzolpidem tartrate 10 mg oral tablet (8 sources)gamma-Aminobutyric Acid-ergic Agonist End: 72-11-2683Abpjel 10 MG tablet 1 (one) time each day at the same time. 11/20/2024 Discontinued Problems Active Problems Problem ClassificationProblemDateDocumented DateEpisodic/ChronicAbdominal pain (20 sources)Abdominal pain; Translations: [Unspecified abdominal pain]Onset: 663784-55-2601CvleuxzmJsjvhhratrkpqg/social admission (4 sources)Patient encounter status; Translations: [Other reasons for seeking consultation]EpisodicBiliary tract disease (20 sources)Biliary calculus; Translations: [Calculus of gallbladder without cholecystitis without obstruction]Onset: 005119-90-8262AhdvexcoApxvmxo dysrhythmias (2 sources)Tachycardia, unspecified; Translations: [Sinus tachycardia]Onset: 70-08-5224XjggbxjjGrsdpenea of lipid metabolism (20 sources)Hyperlipidemia; Translations: [Other and unspecified hyperlipidemia] Onset: 403412-68-3127PdzbfboWsndwudd; including migraine (20 sources)Migraine, unspecified, not intractable, without status migrainosus; Translations: [Refractory migraine without aura]Onset: ChronicHeadache; including migraine (20 sources)Headache; Translations: [Headache]Onset: EpisodicHeadache; including migraine (1 source)Headache; including migraine; Translations: [HEADACHE UNSPECIFIED] Onset: 83-24-2512Pyguicnhr (4 sources)Influenza due to Influenza A virus; Translations: [Influenza due to other identified influenza virus with other respiratory manifestations] 16-06-4363SzorbatcSdsieojylakxqp (16 sources)Arthritis; Translations: [Unspecified osteoarthritis, unspecified site]Onset: 840096-10-7985IytfppuPndjw and unspecified benign neoplasm (4 sources)Fibroadenoma of right breast; Translations: [Benign neoplasm of right breast]Onset: 450627-76-7991WmquvafaQsgse circulatory disease (20 sources)Elevated blood-pressure reading without diagnosis of hypertension; Translations: [Elevated blood-pressure reading, without diagnosis of hypertension]Onset: 835594-57-0335FhogtmheEmmot connective tissue disease (14 sources)Spasm of cervical paraspinous muscle; Translations: [Other muscle spasm]97-47-1693ExogukqyPgiip connective tissue disease (1 source)Fibromyalgia; Translations: [Fibromyalgia]EpisodicOther connective tissue disease (1 source)Problem of neck; Translations: [Other symptoms and signs involving the musculoskeletal system]12-21-4698PkdnchupBftni connective tissue disease (10 sources)Muscle spasm of cervical muscle of neck; Translations: [Other muscle spasm]Onset: 419774-77-8650IkyknnlhCmcyz female genital disorders (16 sources)Pain in female genitalia on intercourse; Translations: [Unspecified dyspareunia]Onset: 982100-06-6855XjsrsicJnfci hereditary and degenerative nervous system conditions (1 source)Spasmodic torticollis; 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 TORTICOLLIS]Onset: 48-04-2529LbdvaclEvckm hereditary and degenerative nervous system conditions (20 sources)Isolated cervical dystonia; Translations: [Spasmodic torticollis] Onset: 460780-19-8384PfgxzzhShjcj hereditary and degenerative nervous system conditions (20 sources)Restless legs; Translations: [Restless legs syndrome]Onset: 935886-92-7497VqndyzxOauok inflammatory condition of skin (20 sources)Rosacea; Translations: [Other rosacea]Onset: ChronicOther nervous system disorders (5 sources)Other specified mononeuropathies; Translations: [OTHER SPECIFIED MONONEUROPATHIES]Onset: 64-33-1302YpirqqkGvcwp nervous system disorders (20 sources)Disorder of brain; Translations: [Disorder of brain, unspecified] Onset: 288005-48-8714EnqkphzMynzq nervous system disorders (2 sources)Chronic pain; Translations: [Other chronic pain]02-18-7390Kbysrut Other nervous system disorders (1 source)Other chronic pain; Translations: [Other chronic pain]10-22-2024 ChronicOther nutritional; endocrine; and metabolic disorders (20 sources)Obesity; Translations: [Obesity, unspecified]Onset: 08-23-2023 52-74-5472CnbyzobWbyex nutritional; endocrine; and metabolic disorders (1 source)Overweight in adulthood with body mass index of 25 or more but less than 30; Translations: [Overweight]EpisodicOther skin disorders (2 sources)Skin tag; Translations: [Other hypertrophic disorders of the skin] 21-63-9219OxpczfvcThtlxrjn codes; unclassified (11 sources)Obstructive sleep apnea syndrome; Translations: [Obstructive sleep apnea (adult) (pediatric)]Onset: 417393-91-1553XekdwhrQghg and subcutaneous tissue infections (4 sources)Cellulitis of left thumb; Translations: [Cellulitis of left finger] 06-41-3653LpmxkvoiXajtvgdpfrr; intervertebral disc disorders; other back problems (3 sources)Cervical spondylosis; Translations: [Spondylosis without myelopathy or radiculopathy, cervical region]33-33-8381VduvlmhHndxsbv (19 sources)Syncope; Translations: [Syncope and collapse]Onset: 12-28-2022 EpisodicUnclassified (1 source)Cough, unspecified; Translations: [Cough, unspecified]Onset: 40-90-2318Spxnyyc tract infections (3 sources)Urinary tract infectious disease; Translations: [Urinary tract infection, site not specified]32-18-7546Uzcrtylz Past or Other Problems Problem ClassificationProblemDateDocumented DateEpisodic/ChronicComa; stupor; and brain damage (20 sources)Daytime somnolence; Translations: [Somnolence]Onset: 08-23-2023 02-45-0024GrfxczonQsflaqxuqp and other anemia (20 sources)Iron deficiency anemia; Translations: [Iron deficiency anemia, unspecified]Onset: 575279-49-2480KgwqahiwNxhjx or threatened labor (16 sources)Premature labor; Translations: [ labor without delivery, unspecified trimester]Onset: 235943-50-3344XmjsitbcWujssprituufo and screening for infectious disease (1 source)Encounter for screening for human papillomavirus (HPV); Translations: [ENC SCREENING HUMAN PAPILLOMAVIRUS]Onset: 57-26-9913BjbxllczTluqqnpkuyji breast conditions (20 sources)Breast lump; Translations: [Unspecified lump in the left breast, unspecified quadrant]Onset: 980183-38-5136HvugxzbvNdjcthjuemy chest pain (4 sources)Atypical chest pain; Translations: [Other chest pain]Onset: 399635-76-1241JkyltwxfRcevx and unspecified benign neoplasm (20 sources)Benign neoplasm of right breast; Translations: [Benign neoplasm of breast]Onset: 847841-91-7363HzirczzbZlfcw connective tissue disease (1 source)Other muscle spasm; Translations: [OTHER MUSCLE SPASM]Onset: 34-82-0664TeunrginYxbjw connective tissue disease (20 sources)Muscle pain; Translations: [Myalgia, unspecified site]Onset: 281647-12-3405BapmaldiGdmfl female genital disorders (16 sources)Pelvic congestion syndrome; Translations: [Other specified conditions associated with female genital organs and menstrual cycle]Onset: 313742-77-7684UbccinkaPjosn female genital disorders (16 sources)Vaginal dryness; Translations: [Other specified noninflammatory disorders of vagina]Onset: 185799-97-1200ElrspwfoFbvvp female genital disorders (2 sources)Pelvic and perineal pain; Translations: [Pelvic and perineal pain] Onset: 784012-91-1338LhfgtgdlBeyod gastrointestinal disorders (16 sources)Altered bowel function; Translations: [Change in bowel habit]Onset: 125045-95-0614GnbrsumnHuyyu lower respiratory disease (20 sources)Difficulty breathing; Translations: [Other respiratory abnormalities]Onset: 908424-36-4432GslxhmxlCzqbi nervous system disorders (20 sources)Spasmodic movement; Translations: [Fasciculation]Onset: 08-23-2023 07-10-2529HrjmvbyzBwcrm nutritional; endocrine; and metabolic disorders (16 sources)Abnormal weight gain; Translations: [Abnormal weight gain]Onset: 208616-81-3176IphkzbiyGgcxa and delivery including normal (16 sources)Intrauterine ; Translations: [Encounter for supervision of normal , unspecified, unspecified trimester]Onset: EpisodicOther screening for suspected conditions (not mental disorders or infectious disease) (20 sources)Encounter for screening for malignant neoplasm of cervix; Translations: [Ultrasonography of breast abnormal]Onset: 52-22-1891Lijfezuv Residual codes; unclassified (20 sources)Insomnia; Translations: [Insomnia, unspecified]Onset: 08-23-2023 38-39-9636HiaigoulYnozezct codes; unclassified (20 sources)Diffuse pain; Translations: [Pain, unspecified]Onset: 08-23-2023 18-49-4452NzvehwxwJmlqlcxyoqx; intervertebral disc disorders; other back problems (20 sources)Chronic neck pain; Translations: [Cervicalgia]Onset: 02-20-2022 EpisodicUnclassified (9 sources)Never smoked tobacco; Translations: [Never a smoker] Results Test NameValueInterpretationReference RangeFacilityUrine Cultureon 03-30-2025 Bacteria identified Cx Nom (U)Diagnosis: Right Side Back Pain/ Blood in Urine Comment: ORGANISM: Escherichia coli (O:ESCCOL) [place] Count 20,000 Organism Comments Pure Growth PERFORMED BY: [facility] [address] [place] [address] PATHOLOGIST ECHOMETER ENGINEER GURDEEP JUARES M.D.[facility] Physician GroupComment on above: Performed By: #### CUU #### [facility] [address] [place] [address] USACNOVon 61-40-0865OSUQUsaxcc Visit ([facility]) BRITTANIE GARCIA ([id number]) 1985 F Date Time Provider Department 02/23/25 10:00 AM DAVID SULLIVAN [facility] During your visit today, we [...] brought in by patient? No Lot #: [id number] Exp: 09/2026 Dilution: 5 units/0.1 ml (100 [...] Optional follow pain # units L R Pattern Setter 10 units divided in 2 sites XXXXXXX [...] David Sullivan MD Referring Provider: DAVID SULLIVAN [[id number]] Allergies As of Date: 02/23/2025 Noted Allergy Reaction DHE 06/13/2012 12 - Shortness of Breath ADHESIVE 07/28/2022 2 - Rash 14 - Other: See Comments Comments: Rash and blisters CAFFEINE 06/13/2012 11 - Vomiting DROPERIDOL 07/30/2024 14 - Other: See Comments Comments: Severe restless leg flare up METOPROLOL 05/01/2023 7 - Swelling Date Reviewed: 02/23/2025 Reviewed by: Shashank, Iram, MA - Fully Assessed Reason for Visit: [...] for Encounter Date Provider Department Center 02/23/2025 [id number], TED [facility] Encounter Status:Closed by ADVID SULLIVAN on 02/23/25NoMer[facility] cultureon 44-08-6409Hxcybxgghegkg or agent identified Nom (Unsp spec)Final reportNOCooper County Memorial Hospital HealthcareNo Panel Informationon 65-32-1486Opbckjfxe at: [address] - [address] [id number] Maintenance Shop Manager: Bentley Leggett PhD, Phone: [phone] 01-24-2025 Bacteria identified Cx Nom (Unsp spec)CommentNOMS HealthcareComment on above:No growth in 36 - 48 hours.NOMS HealthcareMR CERVICAL SPINE WO CONTRASTon 30-09-8073AU CERVICAL SPINE WO CONTRASTEXAMINATION/TECHNIQUE: MR CERVICAL SPINE [...] cervical spine. ELECTRONICALLY SIGNED BY: Madan Pelaez MDNormalNot AvailableCNOVon 10-29-2024 CNOVOffice Visit ([facility]) BRITTANIE GARCIA ([id number]) 1985 F Date Time Provider Department 10/29/24 4:30 PM DAVID SULLIVAN [facility] During your visit today, we [...] brought in by patient? No Lot #: [id number] Exp: 09/2026 Dilution: 5 units/0.1 ml (100 [...] Optional follow pain # units L R Pattern Setter 10 units divided in 2 sites XXXXXXX [...] David Sullivan MD Referring Provider: DAVID SULLIVAN [[id number]] Allergies As of Date: 10/29/2024 Noted Allergy [...] for Encounter Date Provider Department Center 10/29/2024 [id number], TED [facility] Encounter Status:Closed by DAVID SULLIVAN on 10/29/24NoFisher-Titus Medical CenterCNPNon 98-88-3472UXJHZbvdheykl ([facility]) BRITTANIE GARCIA ([id number]) 1985 F Date Time Provider Department 09/26/24 URSULAWANGDAVID [facility] During your visit today, we recorded the following information about you: Isabel Luther MA 09/26/2024 9:44 AM Signed Reminder Message Due: Today Botox due for 10/29 Exp 10/14 Submit date 09/28 Evonne Dillard RN 10/06/2024 8:38 AM Signed There is already a referral in for this patient and pharm lino has submitted to insurance and case is [...] (None) Encounter Status:Closed by EVONNE DILLARD on 10/10/24UK HealthcareAppearance of UrineOrdered By: Peg Ruiz on 09-17-2024 Appearance (U)Urine appearanceCleGrand Lake Joint Township District Memorial HospitalB-Type Natriuretic Peptideon 02-28-9826Prarclglmig peptide B (Bld) [Mass/Vol]24.0 pg/mL Normal5-100The [facility] River GulfportComment on above:Result Comment: PERFORMED BY: [facility] [address] [facility] [place] [address] PATHOLOGIST ECHOMETER ENGINEER RAFIA LOPEZ M.D.Performed By: #### CK, BMP, PT, BNP, DDIMER, CBC, HS TROP ####[facility] [place] [id number] [facility] Bacteria [Presence] in Urine by AutomatedOrdered By: Peg Ruiz on 09-17-2024 Bacteria Auto Ql (U)Bacteria [Presence] in Urine by AutomatedNone [facility] HospitalBasic Metabolic Panelon 95-76-6368Jdfcj gap [Moles/Vol] 10.9 mmol/LNormal6.0-15.0The [facility] Phys[facility] River GulfportComment on above:Performed By: #### CK, BMP, PT, BNP, DDIMER, CBC, HS TROP ####[facility] [address] [place] [id number] USACalcium [Mass/Vol]9.4 mg/dLNormal 8.6-10.3The [facility] Medical CenterComment on above:Performed By: #### CK, BMP, PT, BNP, DDIMER, CBC, HS TROP ####[place] [address] [place] [address] USAChloride [Moles/Vol]106 mmol/LRzifdv36-854Mii [facility] Health Physician GroupComment on above:Performed By: #### CK, BMP, PT, BNP, DDIMER, CBC, HS TROP ####[place] [address] [place] [address] USACO2 [Moles/Vol]26.7 mmol/SMfdecm34.0-31.0The [facility] Health Physician GroupComment on above:Performed By: #### CK, BMP, PT, BNP, DDIMER, CBC, HS TROP ####[address] [address] USACreatinine [Mass/Vol]0.91 mg/dLNormal0.60-1.20The [facility] Health Physician GroupComment on above:Performed By: #### CK, BMP, PT, BNP, DDIMER, CBC, HS TROP ####[place] [id number] USACreatinine Clr Calc Eonkeyug62.55NormalThe [facility] Physician [facility] River GulfportComment on above:Result Comment: PERFORMED BY: [facility] [address] [place] [id number] PATHOLOGIST ECHOMETER ENGINEER RAFIA LOPEZ M.D.Performed By: #### CK, BMP, PT, BNP, DDIMER, CBC, HS TROP ####[place] [id number] [place] GFR/1.73 sq M.predicted MDRD (S/P/Bld) [Vol rate/Area]mL/min/{1.73_m2}NormalThe [facility] Medical CenterComment on above:Performed By: #### CK, BMP, PT, BNP, DDIMER, CBC, HS TROP ####[place] [id number] USAGlucose [Mass/Vol]99 mg/mAEtiywv69-340Afh [place] Physician [facility] River GulfportComment on above:Result Comment: Random Glucose Reference Range is dependent on time and content of last meal. Glucose of more than 200 mg/dL in a nonstressed, ambulatory subject supports the diagnosis of Diabetes Mellitus. ADA recommended reference rangePerformed By: #### CK, BMP, PT, BNP, DDIMER, CBC, HS TROP ####[address] [place] [address] USAPotassium [Moles/Vol]3.6 mmol/LNormal3.5-5.1The [facility] Comment on above:Performed By: #### CK, BMP, PT, BNP, DDIMER, CBC, HS TROP ####[place] [address] [place] [id number] USASodium [Moles/Vol]140 mmol/WCwdrvg100-842Jjb [facility] Physician GroupComment on above: Performed By: #### CK, BMP, PT, BNP, DDIMER, CBC, HS TROP ####[place] [address] [place] [address] USAUrea nitrogen [Mass/Vol]13 mg/dLNormal7-25The [facility] Health Physician GroupComment on above:Performed By: #### CK, BMP, PT, BNP, DDIMER, CBC, HS TROP ####[place] [address] [place] [id number] USABasophils Auto (Bld) [#/Vol]Ordered By: Peg Ruiz on 54-91-4122Mewuggdpx (Bld) [#/Vol]Automated basophil count0.0-0.2 [facility] HospitalBasophils/100 WBC Auto (Bld)Ordered By: Peg Ruiz on 75-83-8595Ngiigepxx/100 WBC (Bld)Automated basophil %.[facility] HospitalBilirubin Test strip Ql (U)Ordered By: Peg Ruiz on 93-16-7636Rvnsdigok Ql (U)Bilirubin.total [Presence] in Urine by Test strip NegativeMiami Valley HospitalCT abdomen pelvis wo conon 43-13-1221LF abdomen pelvis wo [facility] [place] [address] [place] [id number] Scan Report Signed Patient: Brittanie Garcia MR#: [id number] : 1985 Acct:[id number] Age/Sex: 39 / F ADM Date: 09/17/24 Loc: ER Room: Type: [facility] ER Attending Dr: Copies to: DO Peg [...] Jr., D.O. 09/17/2024 8:21 AM Dictation Location: [place] [address] Transcribed By: [facility] 09/17/24 08 Dictated By: Prince Heath Jr, DO 09/17/2418 Signed By: 09/17/24 08[facility] Physician GroupCalcium [Mass/volume] in Serum or PlasmaOrdered By: Peg Ruiz on 42-80-7553Ypwfqjt [Mass/Vol]Calcium [Mass/volume] in Serum or Plasma8.6-10.3FSelect Medical Cleveland Clinic Rehabilitation Hospital, AvonCarbon dioxide, total [Moles/volume] in Serum or PlasmaOrdered By: Peg Ruiz on 53-93-5133VJ8 [Moles/Vol]Carbon dioxide, total [Moles/volume] in Serum or Plasma 21.0-31.0[facility] Valley HospitalChloride [Moles/volume] in Serum or PlasmaOrdered By: Peg Ruiz on 74-64-2830Cbvvamlz [Moles/Vol]Chloride [Moles/volume] in Serum or Wvwdsw75-453TrqbaggewMiami Valley HospitalColor Auto (U)Ordered By: Peg Ruiz on 17-80-1655Qhjtz (U)Color of Urine by Auto YellowMiami Valley HospitalComplete Blood Count Auto Diffon 12-68-8816Leqjtmjxn (Bld) [#/Vol]0.0 10*3/uLNormal0.0-0.2The Unc Health Physician GroupComment on above:Result Comment: PERFORMED BY: [place] [id number] PATHOLOGIST ECHOMETER ENGINEER RAFIA LOPEZ M.D.Performed By: #### CK, BMP, PT, BNP, DDIMER, CBC, HS TROP ####[place] [id number] [place] Basophils/100 WBC (Bld)0.7 %Normal.The Unc Health Physician GroupComment on above:Performed By: #### CK, BMP, PT, BNP, DDIMER, CBC, HS TROP ####[address] [address] USAEosinophils (Bld) [#/Vol]0.1 10*3/uLNormal0.0-0.45The Unc Health Physician GroupComment on above: Performed By: #### CK, BMP, PT, BNP, DDIMER, CBC, HS TROP ####[place] [id number] USAEosinophils/100 WBC (Bld)2.0 %Normal.The Unc Health Physician GroupComment on above:Performed By: #### CK, BMP, PT, BNP, DDIMER, CBC, HS TROP ####[place] [address] USAErythrocyte distribution width (RBC) [Ratio]13.9 % Boqvza90.9-15.3The Unc Health Physician GroupComment on above:Performed By: #### CK, BMP, PT, BNP, DDIMER, CBC, HS TROP ####[place] [address] USAHematocrit (Bld) [Volume fraction]42.2 %Normal 34.0-46.4The Unc Health Physician GroupComment on above:Performed By: #### CK, BMP, PT, BNP, DDIMER, CBC, HS TROP ####[place] [address] USAHemoglobin (Bld) [Mass/Vol]14.4 g/hZEahjfd80.8-15.4 The Un[facility] Health Physician GroupComment on above:Performed By: #### CK, BMP, PT, BNP, DDIMER, CBC, HS TROP ####[place] [address] USALymphocytes (Bld) [#/Vol]2.6 10*3/uLNormal1.00-4.8 The Un[facility] Health Physician GroupComment on above:Performed By: #### CK, BMP, PT, BNP, DDIMER, CBC, HS TROP ####[place] [address] USALymphocytes/100 WBC (Bld)41.7 %Normal.The Unc Health Physician GroupComment on above:Performed By: #### CK, BMP, PT, BNP, DDIMER, CBC, HS TROP ####[place] [address] USAMCH (RBC) [Entitic mass]29.7 fqIjewkw28.7-34.3The Un[facility] Health Physician GroupComment on above:Performed By: #### CK, BMP, PT, BNP, DDIMER, CBC, HS TROP ####[place] [address] USAMCV (RBC) [Entitic vol]87.1 bAWndzeh02-573Ral [facility] Health Physician GroupComment on above:Performed By: #### CK, BMP, PT, BNP, DDIMER, CBC, HS TROP ####[place] [address] USAMean Corpuscular HGB Conc34.1 g/nGCdksym29.0-35.0The Un[facility] Health Physician GroupComment on above: Performed By: #### CK, BMP, PT, BNP, DDIMER, CBC, HS TROP ####[place] [address] USAMonocytes (Bld) [#/Vol]0.4 10*3/uLNormal0.0-0.8The Un[facility] Health Physician GroupComment on above:Performed By: #### CK, BMP, PT, BNP, DDIMER, CBC, HS TROP ####[place] [address] USAMonocytes/100 WBC (Bld)16.75 %Normal 0.00-20.00The Un[facility] Health Physician GroupComment on above:Performed By: #### CK, BMP, PT, BNP, DDIMER, CBC, HS TROP ####[place] [address] USAMonocytes/100 WBC (Bld)7.0 %Normal.The Un[facility] Health Physician GroupComment on above:Performed By: #### CK, BMP, PT, BNP, DDIMER, CBC, HS TROP ####[place] [address] USANeutrophils (Bld) [#/Vol]3.0 10*3/uLNormal1.8-7.7The [facility] Health Physician GroupComment on above:Performed By: #### CK, BMP, PT, BNP, DDIMER, CBC, HS TROP ####[place] [id number] USANeutrophils/100 WBC (Bld)48.6 %Normal.The [facility] Comment on above:Performed By: #### CK, BMP, PT, BNP, DDIMER, CBC, HS TROP ####[address] [place] [address] USANRBC% 0.1 /100{WBC}Normal0-0.5The Un[facility] Health Physician GroupComment on above:Performed By: #### CK, BMP, PT, BNP, DDIMER, CBC, HS TROP ####[place] [address] USAPlatelet mean volume (Bld) [Entitic vol]7.5 fLNormal6.3-10.7The [facility] Health Physician GroupComment on above:Performed By: #### CK, BMP, PT, BNP, DDIMER, CBC, HS TROP ####[place] [address] USAPlatelets (Bld) [#/Vol]297 10*3/uL Wzqfxa067-221Uyq [facility] Health Physician GroupComment on above:Performed By: #### CK, BMP, PT, BNP, DDIMER, CBC, HS TROP ####[place] [id number] USARBC (Bld) [#/Vol]4.85 10*6/uLNormal3.60-5.00 The [facility] Health Physician GroupComment on above:Performed By: #### CK, BMP, PT, BNP, DDIMER, CBC, HS TROP ####[place] [address] USAWBC (Bld) [#/Vol]6.3 10*3/uLNormal3.8-11.6The [facility] Health Physician GroupComment on above:Performed By: #### CK, BMP, PT, BNP, DDIMER, CBC, HS TROP ####[place] [id number] USACreatine Kinaseon 70-81-5326UY [Catalytic activity/Vol]58 U/CUqeqwh29-858Bwa [facility] Health Physician GroupComment on above: Performed By: #### CK, BMP, PT, BNP, DDIMER, CBC, HS TROP ####[place] [address] USACreatine kinase [Enzymatic activity/volume] in Serum or PlasmaOrdered By: Peg Jocelyne on 96-66-0331RD [Catalytic activity/Vol]Creatine kinase [Enzymatic activity/volume] in Serum or Gzpydu77-890LecoylvlyMiami Valley HospitalCreatinine [Mass/volume] in Serum or PlasmaOrdered By: Peg Jocelyne on 05-21-8917Ihnppglgwl [Mass/Vol]Creatinine [Mass/volume] in Serum or Plasma0.60-1.20Mi[facility] Valley HospitalD- Dimer High Sensitivityon 98-04-9763A-Dimer High Sensitivity<560Mpkthm4-898Jst [facility] Physician [facility] River GulfportComment on above:Result Comment: The reference range for [...] coagulation studies. Please contact the laboratory at [phone] for redraw instructions. PERFORMED BY: [facility] [address] [facility] [place] [address] PATHOLOGIST ECHOMETER ENGINEER RAFIA LOPEZ M.D.Performed By: #### GLULS #### Point of Care testing ,Dipstick and Microscopicon 64-85-8869Xvrkrhjgme (U)ClearNormalClearThe Unc Health Physician GroupComment on above:Order Comment: Name Collection Type:: Clean-Voided MidstreamPerformed By: #### GLULS #### Point of Care testing ,Bacteria,UrineRareNormalNone SeenThe Unc Health Physician GroupComment on above: Order Comment: Name Collection Type:: Clean-Voided MidstreamPerformed By: #### GLULS #### Point of Care testing ,Bilirubin,UrineNegativeNormalNegativeThe Unc Health Physician GroupComment on above:Order Comment: Name Collection Type:: Clean-Voided MidstreamPerformed By: #### GLULS #### Point of Care testing ,Color (U)ColorlessNormalYellowAdventhealth Carrollwood Physician GroupComment on above: Order Comment: Name Collection Type:: Clean-Voided MidstreamPerformed By: #### GLULS #### Point of Care testing ,Glucose Ql (U)NormalNormalNormalThPower County Hospital Physician GroupComment on above: Order Comment: Name Collection Type:: Clean-Voided MidstreamPerformed By: #### GLULS #### Point of Care testing ,Hyaline Casts,UrineNoneNormal0-8The Un[facility] Health Physician GroupComment on above: Order Comment: Name Collection Type:: Clean-Voided MidstreamPerformed By: #### GLULS #### Point of Care testing ,Ketones Ql (U)NegativeNormalNegativeAdventhealth Carrollwood Physician GroupComment on above:Order Comment: Name Collection Type:: Clean-Voided MidstreamPerformed By: #### GLULS #### Point of Care testing ,Leukocyte esterase Test strip Ql (U)3+HighNegativeAdventhealth Carrollwood Physician Group Comment on above:Order Comment: Name Collection Type:: Clean-Voided Midstream Performed By: #### GLULS #### Point of Care testing ,Nitrite,UrineNegativeNormalNegativeAdventhealth Carrollwood Physician GroupComment on above:Order Comment: Name Collection Type:: Clean-Voided MidstreamPerformed By: #### GLULS #### Point of Care testing ,Occult Blood,UrineTraceHighNegKeralty Hospital Miami Physician GroupComment on above:Order Comment: Name Collection Type:: Clean-Voided MidstreamPerformed By: #### GLULS #### Point of Care testing ,pH (U)6.0 [pH]Normal5.0-9.0Ad[facility] Physician GroupComment on above:Order Comment: Name Collection Type:: Clean-Voided MidstreamPerformed By: #### GLULS #### Point of Care testing ,Protein,UrineNegativeNormalNegativeAdventhealth Carrollwood Physician GroupComment on above:Order Comment: Name Collection Type:: Clean-Voided MidstreamPerformed By: #### GLULS #### Point of Care testing ,RBC,Msbrm8-7Ctcsro3-2Akn Unc Health Physician GroupComment on above:Order Comment: Name Collection Type:: Clean-Voided MidstreamPerformed By: #### GLULS #### Point of Care testing ,Specificy [place],Urine1.204Jglmbi5.001-1.030The [facility] Comment on above:Order Comment: Name Collection Type:: Clean-Voided Midstream Performed By: #### GLULS #### Point of Care testing ,Squamous Epithelial Cell,Fwnuw4-8Dldzwv6-2Fzy [facility] Health Physician GroupComment on above:Order Comment: Name Collection Type:: Clean-Voided MidstreamPerformed By: #### GLULS #### Point of Care testing ,Urobilinogen,UrineNormalNormalNormalThe Unc Health Physician GroupComment on above:Order Comment: Name Collection Type:: Clean-Voided MidstreamPerformed By: #### GLULS #### Point of Care testing ,WBC,Jelnt5-6Smhwpk9-2Zty [facility] Health Physician GroupComment on above:Order Comment: Name Collection Type:: Clean-Voided MidstreamPerformed By: #### GLULS #### Point of Care testing ,ECG 12 lead ECGon 92-17-0687AVR 12 lead ECGST. MARY'S [place] [address] Electrocardiograph Report Signed Patient: Brittanie Garcia MR#: [id number] : 1985 Acct:[id number] Age/Sex: 39 / F ADM Date: 09/17/24 Loc: ER Room: Type: [facility] ER Attending Dr: Ordering Provider: Peg [...] By: MUS Signed By Peg Ruiz DO [address] Physician GroupEosinophils Auto (Bld) [#/Vol]Ordered By: Peg Ruiz on 31-85-0323Czqugzknahf (Bld) [#/Vol]Automated eosinophil count0.0-0.45Mi[facility] Valley HospitalEosinophils/100 WBC Auto (Bld) Ordered By: Peg Ruiz on 17-45-0426Xglbmplcvfe/100 WBC (Bld)Automated eosinophil %.Mi[facility] Valley HospitalEpithelial cells.squamous [#/area] in Urine sediment by Automated countOrdered By: Peg Ruiz on 09-17-2024 Epithelial cells.squamous Auto (Urine sed) [#/Area]Epithelial cells.squamous [#/area] in Urine sediment by Automated count0-2FSelect Medical Cleveland Clinic Rehabilitation Hospital, AvonErythrocyte distribution width Auto (RBC) [Ratio]Ordered By: Peg Ruiz on 19-49-2753Xjkoijkncvf distribution width (RBC) [Ratio]Erythrocyte distribution width [Ratio] by Automated count11.9-15.3FSelect Medical Cleveland Clinic Rehabilitation Hospital, AvonErythrocytes [#/area] in Urine sediment by Automated countOrdered By: Peg Ruiz on 41-15-5200VPK Auto (Urine sed) [#/Area]Erythrocytes [#/area] in Urine sediment by Automated count0-4FSelect Medical Cleveland Clinic Rehabilitation Hospital, AvonFibrin D- dimer [Presence] in Platelet poor plasma by Latex agglutinationOrdered By: Peg Ruiz on 47-95-8741Fepakl D-dimer LA Ql (PPP)Fibrin D-dimer [Presence] in Platelet poor plasma by Latex agglutination0-243Mi[facility] Valley HospitalComment on above:The reference range for D-dimer [...] coagulation studies. Please contact the laboratory at [phone] for redraw instructions.Glucose [Mass/volume] in Serum or PlasmaOrdered By: Peg Ruiz on 42-41-5015Xchwyzg [Mass/Vol]Glucose [Mass/volume] in Serum or Ffsgad89-544NfsbakldeMiami Valley HospitalComment on above:ADA recommended reference rangeRandom Glucose Reference Range is dependent on time and content of last meal. Glucose of more than 200 mg/dL in a nonstressed, ambulatory subject supports the diagnosisof Diabetes Mellitus. Glucose [Mass/volume] in Urine by Test stripOrdered By: Peg Ruiz on 49-51-6884Tbzuixk Test strip (U) [Mass/Vol]Glucose [Mass/volume] in Urine by Test stripNormMemorial Health System ( test) IA.rapid Ql (U)Ordered By: Peg Ruiz on 31-10-8935ZLP ( test) Ql (U)Urine human chorionic gonadotropin (hCG) detection by immunoassayMary Rutan Hospital,Urineon 95-02-3267Fnhx HCG ( test) Ql (U)Negative NormalThe Unc Health Physician GroupComment on above:Order Comment: Name Collection Type:: Clean-Voided MidstreamResult Comment: PERFORMED BY: [facility] [address] [place] [address] PATHOLOGIST ECHOMETER ENGINEER RAFIA LOPEZ M.D.Performed By: #### GLULS #### Point of Care testing ,Hematocrit Auto (Bld) [Volume fraction]Ordered By: Peg Ruiz on 09-17-2024 Hematocrit (Bld) [Volume fraction]Hematocrit [Volume Fraction] of Blood by Automated count34.0-46.4FSelect Medical Cleveland Clinic Rehabilitation Hospital, AvonHemoglobin Test strip Ql (U)Ordered By: Peg Ruiz on 56-68-3873Nyfypnmmmu Ql (U)Hemoglobin [Presence] in Urine by Test stripHighNegKettering Health Troy Hemoglobin [Mass/volume] in BloodOrdered By: Peg Ruiz on 09-17-2024 Hemoglobin (Bld) [Mass/Vol]Hemoglobin [Mass/volume] in Blood11.8-15.4FSelect Medical Cleveland Clinic Rehabilitation Hospital, AvonHyaline casts [#/area] in Urine sediment by Automated countOrdered By: Peg Ruiz on 97-79-4140Lmzhpcc casts Auto (Urine sed) [#/Area]Hyaline casts [#/area] in Urine sediment by Automated count0-8Mi[facility] Valley HospitalINR in Platelet poor plasma by Coagulation assayOrdered By: Peg Ruiz on 03-96-7208ULD Coag (PPP) [Relative time]INR in Platelet poor plasma by Coagulation assayMiami Valley HospitalComment on above:INR Therapeutic Range A) Pre- [...] strip Ql (U)Ordered By: Peg Ruiz on 35-13-8053Cylbhnj Ql (U)Ketones [Presence] in Urine by Test stripNegKettering Health Troy Leukocyte esterase [Presence] in Urine by Test stripOrdered By: Peg Ruiz on 00-39-8194Zmsljsrng esterase Test strip Ql (U)Leukocyte esterase [Presence] in Urine by Test stripHighNegKettering Health TroyLeukocytes [#/area] in Urine sediment by Automated countOrdered By: Peg Ruiz on 07-85-4584YAZ Auto (Urine sed) [#/Area]Leukocytes [#/area] in Urine sediment by Automated count0[facility], AvonLeukocytes [#/volume] corrected for nucleated erythrocytes in Blood by Automated counOrdered By: Peg Ruiz on 41-03-8982BTL corrected for nucl RBC Auto (Bld) [#/Vol] Leukocytes [#/volume] corrected for nucleated erythrocytes in Blood by Automated coun3.8-11.6FSelect Medical Cleveland Clinic Rehabilitation Hospital, AvonLymphocytes Auto (Bld) [#/Vol] Ordered By: Peg Ruiz on 22-21-8700Sbnjhluimxd (Bld) [#/Vol]Lymphocytes [#/volume] in Blood by Automated count1.00-4.8[facility] Lymphocytes/100 WBC Auto (Bld)Ordered By: Peg Ruiz on 09-17-2024 Lymphocytes/100 WBC (Bld)Lymphocytes/100 leukocytes in Blood by Automated count. [facility] Valley HospitalMCH Auto (RBC) [Entitic mass]Ordered By: Peg Ruiz on 60-01-6857GRM (RBC) [Entitic mass]MCH [Entitic mass] by Automated count24.7-34.3FSelect Medical Cleveland Clinic Rehabilitation Hospital, AvonMCHC Auto (RBC) [Mass/Vol]Ordered By: Peg Ruiz on 76-50-4148YGUA (RBC) [Mass/Vol]MCHC [Mass/volume] by Automated count32.0-35.0Mi[facility] HospitalMCV Auto (RBC) [Entitic vol]Ordered By: Peg Ruiz on 50-33-6181DMZ (RBC) [Entitic vol]MCV [Entitic volume] by Automated ohxfj84-373KvjvkdbvsMiami Valley HospitalMonocyte distribution width [Entitic volume] in Blood by AutomatedOrdered By: Peg Ruiz on 32-29-4109Ehrgnrth distribution width Auto (Bld) [Entitic vol]Monocyte distribution width [Entitic volume] in Blood by Automated0.00-20.00 [facility] HospitalMonocytes Auto (Bld) [#/Vol]Ordered By: Peg Ruiz on 50-41-8347Vkeeiftsb (Bld) [#/Vol]Automated blood monocyte count0.0-0.8 [facility] HospitalMonocytes/100 WBC Auto (Bld)Ordered By: Peg Ruiz on 62-59-3658Fivyssyko/100 WBC (Bld)Automated monocyte %.Mi[facility] Valley HospitalNatriuretic peptide B [Mass/Vol]Ordered By: Peg Ruiz on 05-68-1035Qwgwuuliywg peptide B (Bld) [Mass/Vol]BNP ser/plas5-100Mi[facility] Valley HospitalNeutrophils Auto (Bld) [#/Vol]Ordered By: Peg Ruiz on 72-33-1840Jumnzuewtqy (Bld) [#/Vol]Neutrophils [#/volume] in Blood by Automated count1.8-7.7FSelect Medical Cleveland Clinic Rehabilitation Hospital, AvonNeutrophils/100 WBC Auto (Bld) Ordered By: Peg Ruiz on 10-93-9111Smnfigaysvf/100 WBC (Bld)Automated neutrophil %.Mi[facility] Valley HospitalNitrite Test strip Ql (U)Ordered By: Peg Ruiz on 37-18-0419Hpyawor Ql (U)Nitrite [Presence] in Urine by Test stripNegativeMiami Valley HospitalNo Panel InformationOrdered By: Peg Ruiz on 38-10-4114Ioslovxrl GFR (CKD-EPI)> 60.0 mL/MinMiami Valley HospitalPharmacy Creatinine Clearance (Chem80.55Mi[facility] Valley HospitalNucleated erythrocytes [Presence] in Blood by Automated count Ordered By: Peg Ruiz on 50-38-6445Rlfaxiemx RBC Auto Ql (Bld)Nucleated erythrocytes [Presence] in Blood by Automated count0-0.5FSelect Medical Cleveland Clinic Rehabilitation Hospital, AvonPlatelet mean volume Auto (Bld) [Entitic vol]Ordered By: Peg Ruiz on 32-36-5366Uixmtrrf mean volume (Bld) [Entitic vol]Platelet mean volume [Entitic volume] in Blood by Automated count6.3-10.7FSelect Medical Cleveland Clinic Rehabilitation Hospital, AvonPlatelets Auto (Bld) [#/Vol]Ordered By: Peg Ruiz on 09-17-2024 Platelets (Bld) [#/Vol]Platelets [#/volume] in Blood by Automated ochqv682-990 [facility] HospitalPotassium [Moles/volume] in Serum or Plasma Ordered By: Peg Ruiz on 16-25-1380Enfjvccbe [Moles/Vol]Potassium [Moles/volume] in Serum or Plasma3.5-5.1FSelect Medical Cleveland Clinic Rehabilitation Hospital, AvonProtein Test strip (U) [Mass/Vol]Ordered By: Peg Ruiz on 83-37-9521Hiborsb (U) [Mass/Vol]Protein [Mass/volume] in Urine by Test stripNegativeMiami Valley HospitalProthrombin Time INRon 84-57-8023IFB Coag (PPP) [Relative time] 1.0 {INR}NormalThe Geisinger Community Medical CenterComment on above:Result Comment: INR Therapeutic Range A) [...] BMP, PT, BNP, DDIMER, CBC, HS TROP ####[facility] [place] [address] USAPT Coag (PPP) [Time]11.1 sNormal9.0-12.9The [facility] GulfportComment on above:Result Comment: A hematocrit value greater than 55% may lead to inaccurate results in coagulation testing. Patients having hematocrit values >55% require a special collection tube for coagulation studies. Please contact the laboratory at [phone] for redraw instructions.Performed By: #### CK, BMP, PT, BNP, DDIMER, CBC, HS TROP ####[facility] [place] [address] [facility] Prothrombin time (PT)Ordered By: Peg Ruiz on 71-53-0465BY Coag (PPP) [Time] Prothrombin time (PT)9.0-12.9Mi[facility] HospitalComment on above:A hematocrit value greater than 55% may lead to inaccurate results in coagulation testing. Patientshaving hematocrit values >55% require a special collection tube for coagulation studies. Please contact the laboratory at [phone] for redraw instructions.RBC Auto (Bld) [#/Vol]Ordered By: Peg Ruiz on 09-17-2024 RBC (Bld) [#/Vol]Erythrocytes [#/volume] in Blood by Automated count3.60-5.00 The [facility]vue Hospitalerum or plasma anion gap determinationOrdered By: Peg Ruiz on 96-55-0476Bhesq gap [Moles/Vol]Serum or plasma anion gap determination6.0-15.0The [facility] Hospitalodium [Moles/volume] in Serum or PlasmaOrdered By: Peg Ruiz on 24-20-6189Rysmnr [Moles/Vol]Sodium [Moles/volume] in Serum or Byrvya147-388PzahfhlwkMiami Valley Hospital Specific gravity Test strip (U) [Rel density]Ordered By: Peg Ruiz on 71-84-2120Fhvwfhtk gravity (U) [Rel density]Specific gravity of Urine by Test strip1.001-1.030Mi[facility] HospitalTroponin I High Sensitivityon 87-36-0324Altjnriz I High Sensitivity<0Brfgxk5-67Pes [facility] Comment on above:Result Comment: The Troponin units of report have been changed to meet the Chest Pain Accreditation requirement, element EC5.M1l2. Troponin units are changed from pg/ml to ng/L. Also, the decimal is removed and results are in whole numbers. PERFORMED BY: [facility] [address] [place] [address] PATHOLOGIST ECHOMETER ENGINEER RAFIA LOPEZ M.D.Performed By: #### CK, BMP, PT, BNP, DDIMER, CBC, HS TROP ####[facility] Troponin I.cardiac [Mass/volume] in Serum or Plasma by Detection limit <= 0.01 ng/Ordered By: Peg Ruiz on 45-16-4063Fipkxsrf I.cardiac DL <= 0.01 ng/mL [Mass/Vol]Troponin I.cardiac [Mass/volume] in Serum or Plasma by Detection limit <= 0.01 ng/0-15Mi[facility] HospitalComment on above:The Troponin units of report have been changed to meet the Chest Pain Accreditation requirement, element EC5.M1l2. Troponin units are changed from pg/ml to ng/L. Also, the decimal is removed and results are in whole numbers.Urea nitrogen [Mass/volume] in Serum or PlasmaOrdered By: Peg Ruiz on 23-48-7558Lkom nitrogen [Mass/Vol]Urea nitrogen [Mass/volume] in Serum or Plasma12-12Mi[facility] Valley HospitalUrobilinogen Test strip (U) [Mass/Vol]Ordered By: Peg Ruiz on 48-37-1465Xrzcsrzagyhi (U) [Mass/Vol]Urobilinogen [Mass/volume] in Urine by Test stripNormalMiami Valley HospitalWBC Auto (Bld) [#/Vol] Ordered By: Peg Ruiz on 38-90-0539DLI (Bld) [#/Vol]Leukocytes [#/volume] in Blood by Automated count3.8-11.6FSelect Medical Cleveland Clinic Rehabilitation Hospital, AvonX-ray report Ordered By: Prince Heath on 77-99-0089Enaqc reportST. MARY'S [place] [address] XRay Report Signed Patient: Brittanie Garcia MR# : [id number] : 1985 Acct:[id number] Age/Sex: 39 / F ADM Date: 5 Loc: ER Room: Type: [facility] ER Attending Dr: Copies to: Peg Ruiz [...] Jr., D.OLatisha 09/17/2024 8:28 AM Dictation Location: [place] [address] Transcribed By: JADEN 09/17/24827 Dictated By: Prince Heath Jr, DO 09/17/24827 Signed By: 09/17/24827 [facility] HospitalXR chest 2V*on 46-52-3912HC chest 2V*[facility] [place] [address] XRay Report Signed Patient: Brittanie Garcia#: [id number] : 1985 Acct:[id number] Age/Sex: 39 / F ADM Date: 09/17/24 Loc: ER Room: Type: [facility] ER Attending Dr: Copies to: Peg Ruiz [...] Jr., D.OLatisha 09/17/2024 8:28 AM Dictation Location: [facility]- Transcribed By: [facility] 09/17/24827 Dictated By: Prince Heath Jr, DO 09/17/24 0828 Signed By: 09/17/24 28[facility] Physician GrouppH Test strip (U)Ordered By: Peg Ruiz on 48-43-8412iB (U)pH of Urine by Test strip5.0-9.0[facility] HospitalAlanine aminotransferase [Enzymatic activity/volume] in Serum or PlasmaOrdered By: Luis Goins on 05-52-4925WEA [Catalytic activity/Vol]Alanine aminotransferase [Enzymatic activity/volume] in Serum or Plasma7-52Mi[facility] HospitalAlbumin [Mass/volume] in Serum or Plasma by Bromocresol green (BCG) dye binding methoOrdered By: Luis Goins on 47-69-9086Gbidavu BCG dye [Mass/Vol]Albumin [Mass/volume] in Serum or Plasma by Bromocresol green (BCG) dye binding metho3.5-5.7FSelect Medical Cleveland Clinic Rehabilitation Hospital, AvonAlkaline phosphatase [Enzymatic activity/volume] in Serum or PlasmaOrdered By: Luis Goins on 27-67-2095ZFE [Catalytic activity/Vol]Alkaline phosphatase [Enzymatic activity/volume] in Serum or Eqinry68-670LghcmcogcMiami Valley HospitalAppearance of UrineOrdered By: Luis Goins on 09-71-0457Zpxlcpccum (U)Urine appearanceCleGrand Lake Joint Township District [facility] Aspartate aminotransferase [Enzymatic activity/volume] in Serum or PlasmaOrdered By: Luis Goins on 85-07-1122FHW [Catalytic activity/Vol]Aspartate aminotransferase [Enzymatic activity/volume] in Serum or Ahjktq16-86AewccmknwMiami Valley HospitalBacteria [Presence] in Urine by AutomatedOrdered By: Luis Goins on 02-36-7884Mxwbacmg Auto Ql (U)Bacteria [Presence] in Urine by AutomatedHighNone SeenMiami Valley HospitalBasophils Auto (Bld) [#/Vol]Ordered By: Luis Goins on 20-75-8639Dtgwhhhui (Bld) [#/Vol] Automated basophil count0.0-0.2FSelect Medical Cleveland Clinic Rehabilitation Hospital, AvonBasophils/100 WBC Auto (Bld)Ordered By: Luis Goins on 61-04-6004Pobwslgml/100 WBC (Bld) Automated basophil %.[facility] Valley HospitalBilirubin Test strip Ql (U)Ordered By: Luis Goins on 86-14-1785Dhmuzvbfh Ql (U)Bilirubin.total [Presence] in Urine by Test stripNegativeMiami Valley Hospital Bilirubin.total [Mass/volume] in Serum or PlasmaOrdered By: Luis Goins on 49-22-9794Pxcfduqeh [Mass/Vol]Bilirubin.total [Mass/volume] in Serum or Plasma 0.3-1.0[facility] HospitalCOVID Cepheid NegativeOrdered By: Luis Goins on 23-48-3245RCGL-CoV-2 (COVID-19) Ab IA QlCOVID Cepheid NegativeMiami Valley HospitalComment on above:This is a duplicate Cepheid [...] or Cepheid Disclaimer revoked sooner. PERFORMED BY: [facility] [address] [place] [address] PATHOLOGIST ECHOMETER ENGINEER RFAIA LOPEZ M.D.[facility] Physician GroupComment on above: Performed By: #### CEPHEID NEG, ADDONUAPLUS, COVID19 FLU RSV #### [facility] [address] [place] [address] USACalcium [Mass/volume] in Serum or PlasmaOrdered By: Luis Goins on 90-99-0230Tffnpih [Mass/Vol]Calcium [Mass/volume] in Serum or Plasma8.6-10.3FSelect Medical Cleveland Clinic Rehabilitation Hospital, AvonCarbon dioxide, total [Moles/volume] in Serum or PlasmaOrdered By: Luis Goins on 80-31-4599NP8 [Moles/Vol]Carbon dioxide, total [Moles/volume] in Serum or Lubsis82.0-31.0 [facility] HospitalCepheid COVID PCR Negativeon 08-01-2024 SARS-CoV-2 (COVID-19) RNA LISBETH+probe Ql (Unsp spec)NegativeNormalNegativeThe Unc Health Physician GroupComment on above:Result Comment: This is a duplicate Cepheid Xpert Xpress CoV-2/Flu/RSV Plus RNA by RT-PCR result to be used for statistical tracking purpose only. PERFORMED BY: [address] [address] PATHOLOGIST ECHOMETER ENGINEER RAFIA LOPEZ M.D.Performed By: #### CEPHEID NEG, ADDONUAPLUS, COVID19 FLU RSV #### [facility] [address] [place] [address] USAChloride [Moles/volume] in Serum or PlasmaOrdered By: Luis Goins on 51-56-2992Dqwhpddq [Moles/Vol]Chloride [Moles/volume] in Serum or Xqqjph70-667DzmmekbixMiami Valley HospitalColor Auto (U)Ordered By: Luis Goins on 40-27-4665Fznua (U)Color of Urine by AutoYellowMiami Valley HospitalComplete Blood Count Auto Diffon 90-72-5292Xihogxedz (Bld) [#/Vol]0.0 10*3/uLNormal0.0-0.2The Un[facility] Health Physician GroupComment on above:Result Comment: PERFORMED BY: [address] [address] PATHOLOGIST ECHOMETER ENGINEER RAFIA LOPEZ M.D.Performed By: #### CBC, CMP ####[facility] [address] [place] [address] USABasophils/100 WBC (Bld)0.7 % Normal.The [facility] Health Physician GroupComment on above:Performed By: #### CBC, CMP ####[address] Eosinophils (Bld) [#/Vol]0.0 10*3/uLNormal0.0-0.45The [facility] Comment on above:Performed By: #### CBC, CMP ####[place] [address] USAEosinophils/100 WBC (Bld)0.4 %Normal. The [facility] Health Physician GroupComment on above:Performed By: #### CBC, CMP ####[address] Erythrocyte distribution width (RBC) [Ratio]13.3 %Xnvvga21.9-15.3The Unc Health Physician GroupComment on above:Performed By: #### CBC, CMP ####[place] [address] USAHematocrit (Bld) [Volume fraction]39.8 %Znwakx05.0-46.4The Un[facility] Health Physician GroupComment on above:Performed By: #### CBC, CMP ####[place] [address] USAHemoglobin (Bld) [Mass/Vol]13.4 g/hCJmfiqg83.8-15.4 The [facility] Health Physician GroupComment on above:Performed By: #### CBC, CMP ####[address] Lymphocytes (Bld) [#/Vol]1.1 10*3/uLNormal1.00-4.8The [facility] Comment on above:Performed By: #### CBC, CMP ####[place] [address] USALymphocytes/100 WBC (Bld)44.4 %Normal. The [facility] Health Physician GroupComment on above:Performed By: #### CBC, CMP ####[place] [address] USAMCH (RBC) [Entitic mass]29.3 clKxlseu89.7-34.3The [facility] Health Physician GroupComment on above:Performed By: #### CBC, CMP ####[address] (RBC) [Entitic vol]86.8 wJZxhdnm16-125Tkg [facility] Health Physician GroupComment on above:Performed By: #### CBC, CMP ####[place] [address] USAMean Corpuscular HGB Conc33.7 g/eDDcbkkg61.0-35.0The [facility] Health Physician GroupComment on above:Performed By: #### CBC, CMP ####[place] [address] USAMonocytes (Bld) [#/Vol]0.3 10*3/uLNormal 0.0-0.8The [facility] Health Physician GroupComment on above:Performed By: #### CBC, CMP ####[place] [address] [place] Monocytes/100 WBC (Bld)26.77 %High0.00-20.00The [facility] Health Physician GroupComment on above:Result Comment: For adults in ED, MDW > 20.0 may be associated with a higher risk of sepsis during the first 12 hrs of hospital admissionPerformed By: #### CBC, CMP ####[place] [address] USAMonocytes/100 WBC (Bld)11.1 %Normal.The [facility] Health Physician GroupComment on above:Performed By: #### CBC, CMP ####[place] [address] USANeutrophils (Bld) [#/Vol]1.1 10*3/uLLow1.8-7.7The [facility] Health Physician GroupComment on above:Performed By: #### CBC, CMP ####[place] [address] [place] Neutrophils/100 WBC (Bld)43.4 %Normal.The [facility] Health Physician GroupComment on above:Performed By: #### CBC, CMP ####[place] [address] USANRBC%0.3 /100{WBC}Normal0-0.5The Un[facility] Health Physician GroupComment on above:Performed By: #### CBC, CMP ####[place] [address] USAPlatelet mean volume (Bld) [Entitic vol]7.7 fLNormal6.3-10.7The [facility] Health Physician GroupComment on above: Performed By: #### CBC, CMP ####[place] [address] USAPlatelets (Bld) [#/Vol]196 10*3/qYLtdejl212-864Cda [facility] Health Physician GroupComment on above:Performed By: #### CBC, CMP ####[place] [address] USARBC (Bld) [#/Vol]4.58 10*6/uLNormal3.60-5.00The [facility] Health Physician GroupComment on above:Performed By: #### CBC, CMP ####[place] [address] USAWBC (Bld) [#/Vol]2.5 10*3/uLLow3.8-11.6The [facility] Health Physician GroupComment on above:Performed By: #### CBC, CMP ####[place] [address] USAComprehensive Metabolic Panelon 76-04-7359Ogyuldd [Mass/Vol]4.2 g/dLNormal3.5-5.7The [facility] Health Physician GroupComment on above:Performed By: #### CBC, CMP ####[place] [address] USAAlbumin/Globulin [Mass ratio]1.5 {ratio}NormalThe Unc Health Physician GroupComment on above: Performed By: #### CBC, CMP ####[address] [address] USAALP [Catalytic activity/Vol]58 U/BAzrbuv25-536Jkr [facility] Health Physician GroupComment on above:Performed By: #### CBC, CMP ####[address] [address] USAALT [Catalytic activity/Vol]22 U/LNormal7-52The [facility] Health Physician GroupComment on above:Performed By: #### CBC, CMP ####[address] [address] USAAnion gap [Moles/Vol]10.6 mmol/LNormal6.0-15.0The [facility] Health Physician GroupComment on above:Performed By: #### CBC, CMP ####[place] [id number] USAAST [Catalytic activity/Vol]23 U/GNitmgt29-79Mkn [facility] Physician GroupComment on above:Performed By: #### CBC, CMP ####[address] [address] USABilirubin [Mass/Vol]0.3 mg/dLNormal0.3-1.0The [facility] Health Physician GroupComment on above:Performed By: #### CBC, CMP ####[address] [address] USACalcium [Mass/Vol]8.8 mg/dLNormal8.6-10.3The [facility] Health Physician GroupComment on above: Performed By: #### CBC, CMP ####[address] [address] USAChloride [Moles/Vol]106 mmol/MJejsce90-060Hui [facility] Physician GroupComment on above:Performed By: #### CBC, CMP ####[address] [address] USACO2 [Moles/Vol]27.0 mmol/YPsvzpl53.0-31.0The [facility] Health Physician GroupComment on above:Performed By: #### CBC, CMP ####[address] [address] USACreatinine [Mass/Vol]0.88 mg/dLNormal0.60-1.20The [facility] Health Physician GroupComment on above:Performed By: #### CBC, CMP ####[address] Creatinine Clr Calc Ubvtddef30.02NormalThPower County Hospital Physician GroupComment on above:Result Comment: PERFORMED BY: [facility] [address] [place] [id number] PATHOLOGIST ECHOMETER ENGINEER RAFIA LOPEZ M.D.Performed By: #### CBC, CMP ####[place] [address] USAGFR/1.73 sq M.predicted MDRD (S/P/Bld) [Vol rate/Area]mL/min/{1.73_m2}NormalThe [facility] Physician Group Comment on above:Performed By: #### CBC, CMP ####[place] [address] USAGlobulin (S) [Mass/Vol]2.8 g/dLNormal The [facility] Health Physician GroupComment on above:Performed By: #### CBC, CMP ####[place] [address] USAGlucose [Mass/Vol]87 mg/sDBesqjn60-436Oxm [facility] Physician GroupComment on above: Result Comment: Random Glucose Reference Range is dependent on time and content of last meal. Glucose of more than 200 mg/dL in a nonstressed, ambulatory subject supports the diagnosis of Diabetes Mellitus. ADA recommended reference rangePerformed By: #### CBC, CMP ####[place] [address] USAPotassium [Moles/Vol] 3.6 mmol/LNormal3.5-5.1The [facility] Health Physician GroupComment on above:Performed By: #### CBC, CMP ####[place] [address] USAProtein [Mass/Vol]7.0 g/dLNormal6.4-8.9The [facility] Comment on above:Performed By: #### CBC, CMP ####[facility] [address] [place] [id number] USASodium [Moles/Vol]140 mmol/LNormal 136-145The [facility] Health Physician GroupComment on above:Performed By: #### CBC, CMP ####[facility] [address] [place] [id number] USAUrea nitrogen [Mass/Vol]8 mg/dLNormal7-25The [facility] Health Physician GroupComment on above:Performed By: #### CBC, CMP ####[facility] [address] [place] [id number] USACreatinine [Mass/volume] in Serum or PlasmaOrdered By: Luis Goins on 31-66-8794Xzcvfeoilk [Mass/Vol]Creatinine [Mass/volume] in Serum or Plasma0.60-1.20[facility] Valley HospitalDipstick and Microscopicon 60-94-5576Peawopdijg (U)ClearNormalClearThe Unc Health Physician GroupComment on above:Order Comment: Name Collection Type:: VoidedPerformed By: #### CEPHEID NEG, ADDONUAPLUS, COVID19 FLU RSV #### [place] [address] USABacteria,Urine1+HighNone SeenThe [facility] Health Physician Group Comment on above:Order Comment: Name Collection Type:: VoidedPerformed By: #### CEPHEID NEG, ADDONUAPLUS, COVID19 FLU RSV #### [facility] [address] [place] [id number] USABilirubin,UrineNegativeNormalNegativeThe Unc Health Physician GroupComment on above:Order Comment: Name Collection Type:: Voided Performed By: #### CEPHEID NEG, ADDONUAPLUS, COVID19 FLU RSV #### [place] [address] USAColor (U)Light-YellowNormalYellowThe Unc Health Physician GroupComment on above:Order Comment: Name Collection Type:: VoidedPerformed By: #### CEPHEID NEG, ADDONUAPLUS, COVID19 FLU RSV #### [place] [address] USAGlucose Ql (U)NormalNormalNormalThe Un[facility] Health Physician GroupComment on above:Order Comment: Name Collection Type:: VoidedPerformed By: #### CEPHEID NEG, ADDONUAPLUS, COVID19 FLU RSV #### [place] [address] USAHyaline Casts,UrineNoneNormal0-8The [facility] Health Physician GroupComment on above:Order Comment: Name Collection Type:: VoidedPerformed By: #### CEPHEID NEG, ADDONUAPLUS, COVID19 FLU RSV #### [place] [address] USAKetones Ql (U)NegativeNormalNegativeThe [facility] Health Physician GroupComment on above:Order Comment: Name Collection Type:: Voided Performed By: #### CEPHEID NEG, ADDONUAPLUS, COVID19 FLU RSV #### [place] [address] USALeukocyte esterase Test strip Ql (U)3+HighNegativeThe Unc Health Physician GroupComment on above:Order Comment: Name Collection Type:: VoidedPerformed By: #### CEPHEID NEG, ADDONUAPLUS, COVID19 FLU RSV #### [place] [address] USAMucus,Urine1+Critically abnormalThe Unc Health Physician GroupComment on above:Order Comment: Name Collection Type:: VoidedResult Comment: PERFORMED BY: [place] [address] PATHOLOGIST ECHOMETER ENGINEER RAFIA LOPEZ M.D.Performed By: #### CEPHEID NEG, ADDONUAPLUS, COVID19 FLU RSV #### [place] [address] USANitrite,UrineNegativeNormalNegativeThe [facility] Health Physician GroupComment on above:Order Comment: Name Collection Type:: VoidedPerformed By: #### CEPHEID NEG, ADDONUAPLUS, COVID19 FLU RSV #### [place] [address] USAOccult Blood,UrineNegativeNormalNegativeThe Un[facility] Health Physician GroupComment on above:Order Comment: Name Collection Type:: Voided Result Comment: PERFORMED BY: [place] [address] PATHOLOGIST ECHOMETER ENGINEER RAFIA LOPEZ M.D.Performed By: #### CEPHEID NEG, ADDONUAPLUS, COVID19 FLU RSV #### [place] [address] USApH (U)6.0 [pH]Normal5.0-9.0The [facility] Comment on above:Order Comment: Name Collection Type:: VoidedPerformed By: #### CEPHEID NEG, ADDONUAPLUS, COVID19 FLU RSV #### [place] [address] USAProtein,UrineNegativeNormalNegativeThe [facility] Health Physician GroupComment on above:Order Comment: Name Collection Type:: VoidedPerformed By: #### CEPHEID NEG, ADDONUAPLUS, COVID19 FLU RSV #### [place] [address] USARBC,Xhrzv9-4Giouuq3-9Rwv [facility] Physician GroupComment on above:Order Comment: Name Collection Type:: VoidedPerformed By: #### CEPHEID NEG, ADDONUAPLUS, COVID19 FLU RSV #### [place] [address] USASpecificy [place],Urine1.319Wjsiit2.001-1.030The [facility] Health Physician GroupComment on above:Order Comment: Name Collection Type:: Voided Performed By: #### CEPHEID NEG, ADDONUAPLUS, COVID19 FLU RSV #### [place] [address] USASquamous Epithelial Cell,Scxfv76-21Bcoh2-5Ssz [facility] Physician GroupComment on above:Order Comment: Name Collection Type:: Voided Performed By: #### CEPHEID NEG, ADDONUAPLUS, COVID19 FLU RSV #### [facility] [address] [place] [address] USAUrobilinogen,UrineNormalNormalNormalThe Unc Health Physician GroupComment on above:Order Comment: Name Collection Type:: Voided Performed By: #### CEPHEID NEG, ADDONUAPLUS, COVID19 FLU RSV #### [facility] [address] [place] [address] USAWBC,Fusad5-0Pzjhgi4-3Xyg [facility] Physician GroupComment on above:Order Comment: Name Collection Type:: VoidedPerformed By: #### CEPHEID NEG, ADDONUAPLUS, COVID19 FLU RSV #### [facility] [address] [place] [address] USAEosinophils Auto (Bld) [#/Vol]Ordered By: Luis Goins on 42-61-2740Cbrcahheaht (Bld) [#/Vol]Automated eosinophil count0.0-0.45 [facility] HospitalEosinophils/100 WBC Auto (Bld)Ordered By: Luis Goins on 00-44-3045Hbwbrkxnguz/100 WBC (Bld)Automated eosinophil %. [facility] HospitalEpithelial cells.squamous [#/area] in Urine sediment by Automated countOrdered By: Luis Goins on 64-44-4185Crtvfowwjy cells.squamous Auto (Urine sed) [#/Area]Epithelial cells.squamous [#/area] in Urine sediment by Automated countHigh0-2FSelect Medical Cleveland Clinic [facility], [facility] Erythrocyte distribution width Auto (RBC) [Ratio]Ordered By: Luis Goins on 53-58-2967Qcrbugyulhp distribution width (RBC) [Ratio]Erythrocyte distribution width [Ratio] by Automated count11.9-15.3FSelect Medical Cleveland Clinic Rehabilitation Hospital, AvonErythrocytes [#/area] in Urine sediment by Automated countOrdered By: Luis Goins on 49-37-4682TZH Auto (Urine sed) [#/Area]Erythrocytes [#/area] in Urine sediment by Automated count0-4FSelect Medical Cleveland Clinic Rehabilitation Hospital, AvonGlobulin Calc (S) [Mass/Vol]Ordered By: Luis Goins on 08-01-2024 Globulin (S) [Mass/Vol]Serum globulin measurement by calculation (mass/volume) [facility] HospitalGlucose [Mass/volume] in Serum or PlasmaOrdered By: Luis Goins on 46-00-2352Hvbsdcq [Mass/Vol]Glucose [Mass/volume] in Serum or Nclypq62-670BhvdkspazMiami Valley HospitalComment on above:ADA recommended reference rangeRandom Glucose Reference Range is dependent on time and content of last meal. Glucose of more than 200 mg/dL in a nonstressed, ambulatory subject supports the diagnosisof Diabetes Mellitus.Glucose [Mass/volume] in Urine by Test stripOrdered By: Luis Goins on 08-01-2024 Glucose Test strip (U) [Mass/Vol]Glucose [Mass/volume] in Urine by Test strip NormalMiami Valley HospitalHematocrit Auto (Bld) [Volume fraction] Ordered By: Luis Goins on 17-83-8680Uuaunfdeen (Bld) [Volume fraction] Hematocrit [Volume Fraction] of Blood by Automated count34.0-46.4FSelect Medical Cleveland Clinic Rehabilitation Hospital, AvonHemoglobin Test strip Ql (U)Ordered By: Luis Goins on 32-88-9973Lnupnnkwwm Ql (U)Hemoglobin [Presence] in Urine by Test strip NegativeMiami Valley HospitalHemoglobin [Mass/volume] in Blood Ordered By: Luis Goins on 90-26-7370Hfpioocrhz (Bld) [Mass/Vol]Hemoglobin [Mass/volume] in Blood11.8-15.4FSelect Medical Cleveland Clinic Rehabilitation Hospital, AvonHyaline casts [#/area] in Urine sediment by Automated countOrdered By: Luis Goins on 32-40-2714Hegewqe casts Auto (Urine sed) [#/Area]Hyaline casts [#/area] in Urine sediment by Automated count0-8Mi[facility] HospitalKetones Test strip Ql (U)Ordered By: Luis Goins on 31-73-2491Lukujuv Ql (U)Ketones [Presence] in Urine by Test stripNegativeMiami Valley Hospital Leukocyte esterase [Presence] in Urine by Test stripOrdered By: Luis Goins on 26-39-1143Dgthtunqu esterase Test strip Ql (U)Leukocyte esterase [Presence] in Urine by Test stripHighNegativeMiami Valley Hospital Leukocytes [#/area] in Urine sediment by Automated countOrdered By: Luis Goins on 86-27-6967BGC Auto (Urine sed) [#/Area]Leukocytes [#/area] in Urine sediment by Automated count0-4FSelect Medical Cleveland Clinic Rehabilitation Hospital, AvonLeukocytes [#/volume] corrected for nucleated erythrocytes in Blood by Automated coun Ordered By: Luis Goins on 34-84-6435LLQ corrected for nucl RBC Auto (Bld) [#/Vol]Leukocytes [#/volume] corrected for nucleated erythrocytes in Blood by Automated counLow3.8-11.6FSelect Medical Cleveland Clinic Rehabilitation Hospital, AvonLymphocytes Auto (Bld) [#/Vol]Ordered By: Luis Goins on 26-29-6406Qaytlgfgckk (Bld) [#/Vol] Lymphocytes [#/volume] in Blood by Automated count1.00-4.8Mi[facility] HospitalLymphocytes/100 WBC Auto (Bld)Ordered By: Luis Goins on 90-98-6259Fyqtcsituhg/100 WBC (Bld)Lymphocytes/100 leukocytes in Blood by Automated count.[facility] HospitalMCH Auto (RBC) [Entitic mass] Ordered By: Luis Goins on 68-93-6908MRH (RBC) [Entitic mass]MCH [Entitic mass] by Automated count24.7-34.3FSelect Medical Cleveland Clinic Rehabilitation Hospital, AvonMCHC Auto (RBC) [Mass/Vol]Ordered By: Luis Goins on 78-06-6544QZHS (RBC) [Mass/Vol] MCHC [Mass/volume] by Automated count32.0-35.0[facility] MCV Auto (RBC) [Entitic vol]Ordered By: Luis Goins on 88-70-1744JAX (RBC) [Entitic vol]MCV [Entitic volume] by Automated klyqh03-294RolxgjaspMiami Valley HospitalMonocyte distribution width [Entitic volume] in Blood by Automated Ordered By: Luis Goins on 21-64-3694Hhtzengn distribution width Auto (Bld) [Entitic vol]Monocyte distribution width [Entitic volume] in Blood by AutomatedHigh0.00-20.00[facility] HospitalComment on above:For adults in ED, MDW > 20.0 may be associated with a higher risk of sepsis during the first 12 hrs of hospital admissionMonocytes Auto (Bld) [#/Vol]Ordered By: Luis Goins on 45-19-6105Ghcvdxslc (Bld) [#/Vol]Automated blood monocyte count0.0-0.8[facility] HospitalMonocytes/100 WBC Auto (Bld)Ordered By: Luis Goins on 86-02-9452Fytzelyln/100 WBC (Bld)Automated monocyte %. [facility] HospitalMucus [Presence] in Urine by AutomatedOrdered By: Luis Goins on 71-81-1285Odpoo Auto Ql (U)Mucus [Presence] in Urine by AutomatedAbnormalMiami Valley HospitalNeutrophils Auto (Bld) [#/Vol]Ordered By: Luis Goins on 77-21-2415Qswrtnmcflj (Bld) [#/Vol] Neutrophils [#/volume] in Blood by Automated countLow1.8-7.7FSelect Medical Cleveland Clinic Rehabilitation Hospital, AvonNeutrophils/100 WBC Auto (Bld)Ordered By: Luis Goins on 54-25-8656Estrseytjtx/100 WBC (Bld)Automated neutrophil %.[facility] HospitalNitrite Test strip Ql (U)Ordered By: Luis Goins on 55-77-7572Mkoodzo Ql (U)Nitrite [Presence] in Urine by Test stripNegative [facility] HospitalNo Panel InformationOrdered By: Luis Goins on 95-43-9655Chjqhumuv GFR (CKD-EPI)> 60.0 mL/MinMiami Valley HospitalPharmacy Creatinine Clearance (Chem82.02Mi[facility] HospitalNucleated erythrocytes [Presence] in Blood by Automated countOrdered By: Luis Goins on 07-43-3063Vuxtpbzky RBC Auto Ql (Bld)Nucleated erythrocytes [Presence] in Blood by Automated count0-0.5FSelect Medical Cleveland Clinic Rehabilitation [facility], [place] Platelet mean volume Auto (Bld) [Entitic vol]Ordered By: Luis Goins on 07-11-5166Popqcdfr mean volume (Bld) [Entitic vol]Platelet mean volume [Entitic volume] in Blood by Automated count6.3-10.7FSelect Medical Cleveland Clinic Rehabilitation Hospital, [place] Platelets Auto (Bld) [#/Vol]Ordered By: Luis Goins on 50-62-1092Qxlcxnzfy (Bld) [#/Vol]Platelets [#/volume] in Blood by Automated olctu539-899KngqlprbrMiami Valley HospitalPotassium [Moles/volume] in Serum or PlasmaOrdered By: Luis Goins on 24-55-2219Qflwsiupk [Moles/Vol]Potassium [Moles/volume] in Serum or Plasma3.5-5.1FSelect Medical Cleveland Clinic Rehabilitation Hospital, AvonProtein Test strip (U) [Mass/Vol]Ordered By: Luis Goins on 92-73-8391Wubskax (U) [Mass/Vol] Protein [Mass/volume] in Urine by Test stripNegativeMiami Valley HospitalProtein [Mass/volume] in Serum or PlasmaOrdered By: Luis Goins on 84-74-7804Sivgxji [Mass/Vol]Protein [Mass/volume] in Serum or Plasma6.4-8.9 [facility] HospitalRBC Auto (Bld) [#/Vol]Ordered By: Luis Goins on 70-60-7851GRA (Bld) [#/Vol]Erythrocytes [#/volume] in Blood by Automated count3.60-5.00[facility] HospitalRespiratory specimen influenza A virus, influenza B virus, respiratory syncytical virOrdered By: Luis Goins on 72-08-9894TSVZ-CoV-2 (COVID-19) RNA LISBETH+probe Ql (Unsp spec)Respiratory specimen influenza A virus, influenza B virus, respiratory syncytical virThe Bellevue Hospitalerum or plasma albumin/globulin mass ratioOrdered By: Luis Goins 46-17-2586Ywxbifh/Globulin [Mass ratio]Serum or plasma albumin/globulin mass ratioThe Bellevue Hospitalerum or plasma anion gap determinationOrdered By: Luis Goins 30-45-8317Ddspk gap [Moles/Vol]Serum or plasma anion gap determination6.0-15.0 The Bellevue Hospitalodium [Moles/volume] in Serum or PlasmaOrdered By: Luis Goins 75-70-0659Ylreab [Moles/Vol]Sodium [Moles/volume] in Serum or Hvmfmx628-687DvfwgxafoThe Bellevue Hospitalpecific gravity Test strip (U) [Rel density]Ordered By: Luis Goins on 57-06-2931Xtqfvmbk gravity (U) [Rel density]Specific gravity of Urine by Test strip1.001-1.030 [facility] HospitalUrea nitrogen [Mass/volume] in Serum or Plasma Ordered By: Luis Goins on 72-61-7132Lcjo nitrogen [Mass/Vol]Urea nitrogen [Mass/volume] in Serum or Plasma12-12[facility] Urobilinogen Test strip (U) [Mass/Vol]Ordered By: Luis Goins on 16-02-1296Hpzmxpuhchkf (U) [Mass/Vol]Urobilinogen [Mass/volume] in Urine by Test stripNormalMiami Valley HospitalWBC Auto (Bld) [#/Vol]Ordered By: Luis Goins on 06-61-9278PED (Bld) [#/Vol]Leukocytes [#/volume] in Blood by Automated countLow3.8-11.6FSelect Medical Cleveland Clinic Rehabilitation Hospital, AvonX-ray report Ordered By: Prince Heath on 92-07-8248Jftkf reportST. MARY'S [place] [address] XRay Report Signed Patient: Brittanie Garcia MR# : [id number] : 1985 Acct:[id number] Age/Sex: 39 / F ADM Date: 5 Loc: ER Room: Type: [facility] ER Attending Dr: Copies to: Luis Goins DO~ Ordering Provider: Luis Goins DO Date of Service: 08/01/24 XR/XR chest 2V*: Upper Respiratory Infection ([id number]) XR/XR lumbar spine 2-3V*: Upper Respiratory Infection [...] Heath Jr., D.O.08/01/2024 9:17 AM Dictation Location: RADIO-PC-23 Transcribed By: JADEN 08/01/24916 Dictated By: Prince Heath Jr, DO 08/01/2416 Signed By: 08/01/24 09 [facility] HospitalXR lumbar spine 2-3V*on 19-89-5548QC lumbar spine 2-3V*[facility] [address] [place] [address] [place] [address] XRay Report Signed Patient: Brittanie Garcia MR#: [id number] : 1985 Acct:[id number] Age/Sex: 39 / F ADM Date: 08/01/24 Loc: ER Room: Type: [facility] ER Attending Dr: Copies to: Luis Goins DO Ordering Provider: Luis Goins DO Date of Service: 08/01/24 XR/XR chest 2V*: Upper Respiratory Infection ([id number]) XR/XR lumbar spine 2-3V*: Upper Respiratory Infection [...] OR SIGNIFICANT DEGENERATIVE CHANGE. Impression dictated by: Krishna Etienne Jr..OLatisha08/01/2024 9:17 AM Dictation Location: RADIO-PC-23 Transcribed By: JADEN 08/01/24916 Dictated By: Prince Heath Jr, DO 08/01/2416 Signed By: 08/01/24 0917[facility] Physician GrouppH Test strip (U)Ordered By: Luis Goins on 14-82-9527rT (U)pH of Urine by Test strip5.0-9.0[facility] HospitalCNOVon 29-33-9725XBKABjuhkt Visit ([facility]) BRITTANIE GARCIA ([id number]) 1985 F Date Time Provider Department 07/30/24 4:30 PM DAVID SULLIVAN [facility] During your visit today, we [...] brought in by patient? No Lot #: [id number] Exp: 09/2026 Dilution: 5 units/0.1 ml (100 [...] Optional follow pain # units L R Pattern Setter 10 units divided in 2 sites [id number] [...] David Sullivan MD Referring Provider: DAVID SULLIVAN [[id number]] Allergies As of Date: 07/30/2024 Noted Allergy [...] for Encounter Date Provider Department Center 07/30/2024 [id number]-BREJFANLJ, TED [facility] Encounter Status:Closed by DAVID SULLIVAN on 07/30/24NoFisher-Titus Medical CenterAlanine aminotransferase [Enzymatic activity/volume] in Serum or Plasma Ordered By: Babar Singh on 29-67-2563NSD [Catalytic activity/Vol]Alanine aminotransferase [Enzymatic activity/volume] in Serum or PlasmaHigh7-52[facility] HospitalAlbumin [Mass/volume] in Serum or Plasma by Bromocresol green (BCG) dye binding methoOrdered By: Babar Singh on 00-11-6364Bncwhyp BCG dye [Mass/Vol]Albumin [Mass/volume] in Serum or Plasma by Bromocresol green (BCG) dye binding metho3.5-5.7FSelect Medical Cleveland Clinic Rehabilitation Hospital, AvonAlkaline phosphatase [Enzymatic activity/volume] in Serum or PlasmaOrdered By: Babra Singh on 88-67-8370VWJ [Catalytic activity/Vol]Alkaline phosphatase [Enzymatic activity/volume] in Serum or Rwvigy94-424DqstrnetsMiami Valley Hospital Appearance of UrineOrdered By: NOLVIA SINGH on 30-60-0628Aifmcbymyv (U)Urine appearanceAbnoOhioHealth Grove City Methodist HospitalAspartate aminotransferase [Enzymatic activity/volume] in Serum or PlasmaOrdered By: Babar Singh on 31-40-2596JQJ [Catalytic activity/Vol]Aspartate aminotransferase [Enzymatic activity/volume] in Serum or YvuwyvFalq38-27CrknhmagaMiami Valley HospitalBacteria [Presence] in Urine by AutomatedOrdered By: NOLVIA SINGH on 35-36-1879Ivqysqxe Auto Ql (U)Bacteria [Presence] in Urine by AutomatedNone SeenMiami Valley HospitalBasophils Auto (Bld) [#/Vol]Ordered By: Babar Singh on 45-58-7721Ywfvxpqoq (Bld) [#/Vol]Automated basophil count0.0-0.2 [facility] HospitalBasophils/100 WBC Auto (Bld)Ordered By: Babar Singh on 99-27-4705Vcpgtpxme/100 WBC (Bld)Automated basophil %.[facility] HospitalBilirubin Test strip Ql (U)Ordered By: PROVIDER TEMP on 58-75-1620Qmweuotaa Ql (U)Bilirubin.total [Presence] in Urine by Test strip NegativeMiami Valley HospitalBilirubin.total [Mass/volume] in Serum or PlasmaOrdered By: Babar Singh on 38-76-6545Apcblgkgi [Mass/Vol] Bilirubin.total [Mass/volume] in Serum or Plasma0.3-1.0[facility] HospitalCalcium [Mass/volume] in Serum or PlasmaOrdered By: Babar Singh on 35-28-3467Fnwpljz [Mass/Vol]Calcium [Mass/volume] in Serum or Plasma8.6-10.3 [facility] HospitalCarbon dioxide, total [Moles/volume] in Serum or PlasmaOrdered By: Babar Singh on 73-77-5598FB6 [Moles/Vol]Carbon dioxide, total [Moles/volume] in Serum or Pewuko03.0-31.0[facility] HospitalChloride [Moles/volume] in Serum or PlasmaOrdered By: Babar Singh on 06-67-0737Xubkxlwd [Moles/Vol]Chloride [Moles/volume] in Serum or Dobpgb97-252 [facility] HospitalColor Auto (U)Ordered By: PROVIDER TEMP on 92-30-3224Jjtpl (U)Color of Urine by AutoYellowMiami Valley Hospital Complete Blood Count Auto Diffon 77-86-3566Dgcgfaivj (Bld) [#/Vol]0.0 10*3/uL Normal0.0-0.2The Unc Health Physician GroupComment on above:Result Comment: PERFORMED BY: [place] [address] PATHOLOGIST ECHOMETER ENGINEER RAFIA LOPEZ M.D.Performed By: #### CK, HS TROP, CBC, CMP #### [place] [address] USABasophils/100 WBC (Bld)0.3 %Normal.The [facility] Health Physician GroupComment on above:Performed By: #### CK, HS TROP, CBC, CMP #### [place] [address] USAEosinophils (Bld) [#/Vol]0.1 10*3/uLNormal0.0-0.45The [facility] Health Physician GroupComment on above:Performed By: #### CK, HS TROP, CBC, CMP #### [place] [address] USAEosinophils/100 WBC (Bld)1.4 %Normal.The [facility] Health Physician GroupComment on above:Performed By: #### CK, HS TROP, CBC, CMP #### [place] [address] USAErythrocyte distribution width (RBC) [Ratio]13.7 %Normal 11.9-15.3The [facility] Health Physician GroupComment on above:Performed By: #### CK, HS TROP, CBC, CMP #### [place] [address] USAHematocrit (Bld) [Volume fraction]41.7 %Dypsej52.0-46.4The Unc Health Physician GroupComment on above:Performed By: #### CK, HS TROP, CBC, CMP #### [place] [address] USAHemoglobin (Bld) [Mass/Vol]14.0 g/zSFlenus96.8-15.4The [facility] Health Physician GroupComment on above:Performed By: #### CK, HS TROP, CBC, CMP #### [place] [address] USALymphocytes (Bld) [#/Vol]1.4 10*3/uLNormal1.00-4.8The [facility] Health Physician GroupComment on above:Performed By: #### CK, HS TROP, CBC, CMP #### [place] [address] USALymphocytes/100 WBC (Bld)15.4 %Normal.The [facility] Health Physician GroupComment on above:Performed By: #### CK, HS TROP, CBC, CMP #### [address] (RBC) [Entitic mass]29.2 baKrvrzh41.7-34.3The Unc Health Physician GroupComment on above:Performed By: #### CK, HS TROP, CBC, CMP #### [address] (RBC) [Entitic vol]87.0 hLXulizg52-694Xtx [facility] Health Physician GroupComment on above:Performed By: #### CK, HS TROP, CBC, CMP #### [place] [address] USAMean Corpuscular HGB Conc33.6 g/bXKvllje24.0-35.0The [facility] Health Physician GroupComment on above:Performed By: #### CK, HS TROP, CBC, CMP #### [place] [address] USAMonocytes (Bld) [#/Vol]0.4 10*3/uLNormal0.0-0.8The [facility] Health Physician GroupComment on above:Performed By: #### CK, HS TROP, CBC, CMP #### [place] [address] USAMonocytes/100 WBC (Bld)19.28 %Normal0.00-20.00The Un[facility] Health Physician GroupComment on above:Performed By: #### CK, HS TROP, CBC, CMP #### [place] [address] USAMonocytes/100 WBC (Bld)4.5 %Normal.The [facility] Health Physician GroupComment on above:Performed By: #### CK, HS TROP, CBC, CMP #### [place] [address] USANeutrophils (Bld) [#/Vol]7.3 10*3/uLNormal1.8-7.7The [facility] Health Physician GroupComment on above:Performed By: #### CK, HS TROP, CBC, CMP #### [facility] [address] [place] [address] USANeutrophils/100 WBC (Bld)78.4 %Normal.The [facility] Health Physician GroupComment on above:Performed By: #### CK, HS TROP, CBC, CMP #### [facility] [address] [place] [address] USANRBC%0.1 /100{WBC}Normal0-0.5The [facility] Comment on above:Performed By: #### CK, HS TROP, CBC, CMP #### [facility] [address] [place] [address] USAPlatelet mean volume (Bld) [Entitic vol]7.9 fLNormal 6.3-10.7The [facility] Health Physician GroupComment on above:Performed By: #### CK, HS TROP, CBC, CMP #### [place] [address] USAPlatelets (Bld) [#/Vol]251 10*3/qSPdqaqj239-324Sja [facility] Health Physician GroupComment on above:Performed By: #### CK, HS TROP, CBC, CMP #### [facility] [address] [place] [address] USARBC (Bld) [#/Vol]4.79 10*6/uLNormal3.60-5.00The [facility] Health Physician GroupComment on above:Performed By: #### CK, HS TROP, CBC, CMP #### [place] [address] USAWBC (Bld) [#/Vol]9.3 10*3/uLNormal3.8-11.6The [facility] Health Physician GroupComment on above:Performed By: #### CK, HS TROP, CBC, CMP #### [place] [address] USAComprehensive Metabolic Panelon 56-42-6615Peblujz [Mass/Vol]4.4 g/dLNormal3.5-5.7The [facility] Health Physician GroupComment on above: Performed By: #### CK, HS TROP, CBC, CMP #### [facility] [address] [place] [address] USAAlbumin/Globulin [Mass ratio]1.5 {ratio}NormalThe Unc Health Physician GroupComment on above:Performed By: #### CK, HS TROP, CBC, CMP #### [facility] [address] [place] [address] USAALP [Catalytic activity/Vol]87 U/UCisyvt08-453Sat [facility] Health Physician GroupComment on above:Performed By: #### CK, HS TROP, CBC, CMP #### [facility] [address] [place] [address] USAALT [Catalytic activity/Vol]135 U/LHigh7-52The [facility] Health Physician GroupComment on above:Performed By: #### CK, HS TROP, CBC, CMP #### [facility] [address] [place] [address] USAAnion gap [Moles/Vol]12.0 mmol/LNormal6.0-15.0The [facility] Health Physician GroupComment on above:Performed By: #### CK, HS TROP, CBC, CMP #### [facility] [address] [place] [address] USAAST [Catalytic activity/Vol]80 U/YZifh35-42Ems [facility] Physician GroupComment on above:Performed By: #### CK, HS TROP, CBC, CMP #### [facility] [address] [place] [address] USABilirubin [Mass/Vol]0.7 mg/dLNormal0.3-1.0The [facility] Health Physician GroupComment on above:Performed By: #### CK, HS TROP, CBC, CMP #### [facility] [address] [place] [address] USACalcium [Mass/Vol]9.2 mg/dLNormal8.6-10.3The [facility] Health Physician GroupComment on above:Performed By: #### CK, HS TROP, CBC, CMP #### [facility] [address] [place] [address] USAChloride [Moles/Vol]104 mmol/PHyxynn19-665Qns [facility] Physician GroupComment on above:Performed By: #### CK, HS TROP, CBC, CMP #### [place] [address] USACO2 [Moles/Vol]24.9 mmol/IHgfvmx37.0-31.0The [facility] Health Physician GroupComment on above:Performed By: #### CK, HS TROP, CBC, CMP #### [place] [address] USACreatinine [Mass/Vol]0.87 mg/dLNormal0.60-1.20The [facility] Health Physician GroupComment on above:Performed By: #### CK, HS TROP, CBC, CMP #### [place] [address] USACreatinine Clr Calc Aktyquca70.38NormBay Pines VA Healthcare System Physician GroupComment on above:Result Comment: PERFORMED BY: [place] [address] PATHOLOGIST ECHOMETER ENGINEER RAFIA LOPEZ M.D.Performed By: #### CK, HS TROP, CBC, CMP #### [place] [address] USAGFR/1.73 sq M.predicted MDRD (S/P/Bld) [Vol rate/Area] mL/min/{1.73_m2}NormalThe [facility] Physician [facility] GulfportComment on above:Performed By: #### CK, HS TROP, CBC, CMP #### [place] [address] USAGlobulin (S) [Mass/Vol]3.0 g/dLNoCritical access hospital Physician [facility] GulfportComment on above:Performed By: #### CK, HS TROP, CBC, CMP #### [place] [address] USAGlucose [Mass/Vol]90 mg/wEPfsaks33-627Zso [facility] Physician GroupComment on above:Result Comment: Random Glucose Reference Range is dependent on time and content of last meal. Glucose of more than 200 mg/dL in a nonstressed, ambulatory subject supports the diagnosis of Diabetes Mellitus. ADA recommended reference rangePerformed By: #### CK, HS TROP, CBC, CMP #### [facility] [address] [place] [address] USAPotassium [Moles/Vol]3.9 mmol/LNormal3.5-5.1The [facility] Health Physician GroupComment on above:Performed By: #### CK, HS TROP, CBC, CMP #### [facility] [address] [place] [address] USAProtein [Mass/Vol]7.4 g/dLNormal6.4-8.9The [facility] Health Physician GroupComment on above:Performed By: #### CK, HS TROP, CBC, CMP #### [facility] [address] [place] [address] USASodium [Moles/Vol]137 mmol/ZDksbjz769-930Lfb [facility] Physician GroupComment on above:Performed By: #### CK, HS TROP, CBC, CMP #### [facility] [address] [place] [address] USAUrea nitrogen [Mass/Vol]14 mg/dLNormal7-25The [facility] Health Physician GroupComment on above:Performed By: #### CK, HS TROP, CBC, CMP #### [facility] [address] [place] [address] USACreatine Kinaseon 89-61-4861PE [Catalytic activity/Vol]51 U/VOmqxcr98-561Uph [facility] Physician GroupComment on above:Performed By: #### CK, HS TROP, CBC, CMP ####[facility] [address] [place] [address] USACreatine kinase [Enzymatic activity/volume] in Serum or PlasmaOrdered By: Babar Singh on 20-40-3234WX [Catalytic activity/Vol] Creatine kinase [Enzymatic activity/volume] in Serum or Eevtgm90-755PcfpxerigMiami Valley HospitalCreatinine [Mass/volume] in Serum or PlasmaOrdered By: Babar Singh on 12-40-1522Kgvxkbuzji [Mass/Vol]Creatinine [Mass/volume] in Serum or Plasma0.60-1.20[facility] HospitalDipstick and Microscopicon 20-35-2384Uqqqbqxndg (U)CloudyCritically abnormalClearThe Unc Health Physician GroupComment on above:Order Comment: Name Collection Type:: Clean-Voided MidstreamPerformed By: #### ADDONUAPLUS #### [facility] [address] [place] [address] USABacteria,UrineRareNormalNone SeenAdventhealth Carrollwood Physician GroupComment on above:Order Comment: Name Collection Type:: Clean-Voided MidstreamPerformed By: #### ADDONUAPLUS #### [facility] [address] [place] [address] USABilirubin,UrineNegativeNormalNegativeAdventhealth Carrollwood Physician GroupComment on above:Order Comment: Name Collection Type:: Clean- Voided MidstreamPerformed By: #### ADDONUAPLUS #### [facility] [address] [place] [address] USAColor (U)YellowNormalYellowAdventhealth Carrollwood Physician Group Comment on above:Order Comment: Name Collection Type:: Clean-Voided Midstream Performed By: #### ADDONUAPLUS #### [facility] [address] [place] [address] USAGlucose Ql (U)NormalNormalNormalThPower County Hospital Physician GroupComment on above:Order Comment: Name Collection Type:: Clean-Voided MidstreamPerformed By: #### ADDONUAPLUS #### [facility] [address] [place] [address] USAHyaline Casts,UrineNoneNormal0-8The [facility] Health Physician GroupComment on above:Order Comment: Name Collection Type:: Clean-Voided MidstreamPerformed By: #### ADDONUAPLUS #### [facility] [address] [place] [address] USAKetones Ql (U)1+HighNegativeAdventhealth Carrollwood Physician Group Comment on above:Order Comment: Name Collection Type:: Clean-Voided Midstream Performed By: #### ADDONUAPLUS #### [facility] [address] [place] [address] USALeukocyte esterase Test strip Ql (U)3+HighNegativeAdventhealth Carrollwood Physician GroupComment on above:Order Comment: Name Collection Type:: Clean-Voided MidstreamPerformed By: #### ADDONUAPLUS #### [place] [address] USAMucus,Urine2+Critically abnormalThe Unc Health Physician GroupComment on above:Order Comment: Name Collection Type:: Clean-Voided MidstreamResult Comment: PERFORMED BY: [place] [address] PATHOLOGIST ECHOMETER ENGINEER RAFIA LOPEZ M.D.Performed By: #### ADDONUAPLUS #### [place] [address] USANitrite,UrineNegativeNormalNegativeThe Unc Health Physician GroupComment on above:Order Comment: Name Collection Type:: Clean-Voided MidstreamPerformed By: #### ADDONUAPLUS #### [place] [address] USAOccult Blood,UrineNegativeNormalNegativeThe Unc Health Physician GroupComment on above:Order Comment: Name Collection Type:: Clean- Voided MidstreamResult Comment: PERFORMED BY: [place] [address] PATHOLOGIST ECHOMETER ENGINEER RAFIA LOPEZ M.D.Performed By: #### ADDONUAPLUS #### [place] [address] USApH (U)5.5 [pH]Normal5.0-9.0The [facility] Comment on above:Order Comment: Name Collection Type:: Clean-Voided Midstream Performed By: #### ADDONUAPLUS #### [place] [id number] USAProtein,UrineTraceHighNegativeThe Unc Health Physician GroupComment on above:Order Comment: Name Collection Type:: Clean-Voided MidstreamPerformed By: #### ADDONUAPLUS #### [place] [address] USARBC,Urine5 [HPF]High0-4The [facility] Comment on above:Order Comment: Name Collection Type:: Clean-Voided Midstream Performed By: #### ADDONUAPLUS #### [place] [address] USASpecificy [place],Urine1.258Egjhau8.001-1.030The [facility] Health Physician GroupComment on above:Order Comment: Name Collection Type:: Clean- Voided MidstreamPerformed By: #### ADDONUAPLUS #### [place] [address] USASquamous Epithelial Cell,Urine10 [HPF]High0-2The [facility] Health Physician GroupComment on above:Order Comment: Name Collection Type:: Clean- Voided MidstreamPerformed By: #### ADDONUAPLUS #### [place] [address] USAUrobilinogen,UrineNormalNormalNormalThe Un[facility] Health Physician GroupComment on above:Order Comment: Name Collection Type:: Clean- Voided MidstreamPerformed By: #### ADDONUAPLUS #### [place] [address] USAWBC,Urine3 [HPF]Normal0-4The [facility] Comment on above:Order Comment: Name Collection Type:: Clean-Voided Midstream Performed By: #### ADDONUAPLUS #### [place] [address] USAECG 12 lead ECGon 83-75-2403YCD 12 lead ECGST. [facility] Main [place] [address] [place] [address] Electrocardiograph Report Signed Patient: Brittnaie Garcia MR#: [id number] : 1985 Acct:[id number] Age/Sex: 39 / F ADM Date: 06/19/24 Loc: ER Room: Type: [facility] ER Attending Dr: Ordering Provider: Babar Singh [...] was found Confirmed by LIAM RANDLE DO ([id number]) on 06/19/2024 7:59:22 PM Referred By: Electronically Signed By: LIAM RANDLE DO Transcribed By: MUS Signed By Liam Randle DO 06/[address] [place] [address] Physician GroupEosinophils Auto (Bld) [#/Vol]Ordered By: Babar Singh on 04-58-6443Ktqdgtnnbjh (Bld) [#/Vol]Automated eosinophil count0.0-0.45[facility] HospitalEosinophils/100 WBC Auto (Bld) Ordered By: Babar Singh on 43-15-9436Aoasjbnxkff/100 WBC (Bld)Automated eosinophil %.[facility] HospitalEpithelial cells.squamous [#/area] in Urine sediment by Automated countOrdered By: PROVIDER SAMANTHA on 06-19-2024 Epithelial cells.squamous Auto (Urine sed) [#/Area]Epithelial cells.squamous [#/area] in Urine sediment by Automated countHigh02FSelect Medical Cleveland Clinic Rehabilitation Hospital, AvonErythrocyte distribution width Auto (RBC) [Ratio]Ordered By: Babar Singh on 54-55-0084Ctfqdlhmmcm distribution width (RBC) [Ratio]Erythrocyte distribution width [Ratio] by Automated count11.9-15.3FSelect Medical Cleveland Clinic Rehabilitation Hospital, AvonErythrocytes [#/area] in Urine sediment by Automated countOrdered By: PROVIDER SAMANTHA on 81-06-0272KUR Auto (Urine sed) [#/Area]Erythrocytes [#/area] in Urine sediment by Automated countHigh04FSelect Medical Cleveland Clinic Rehabilitation Hospital, Avon Globulin Calc (S) [Mass/Vol]Ordered By: Babar Singh on 18-69-5835Tnniwrsj (S) [Mass/Vol]Serum globulin measurement by calculation (mass/volume)[facility] HospitalGlucose Glucometer (BldC) [Mass/Vol]Ordered By: PROVIDER TEMGeorges on 46-35-6578Spjiyke [Mass/Vol]Capillary blood glucose measurement by glucometer (mass/volume)[facility] HospitalComment on above:Random Glucose Reference Range is dependent on time and content of last meal. Glucose of more than 200 mg/dL in a nonstressed, ambulatory subject supports the diagnosis of Diabetes Mellitus.Glucose Poct Glucometerson 03-30-7405Gyhjvwy1 NormalThe Unc Health Physician GroupComment on above:Result Comment: Glu2: WILL NOTIFY DR/DONNAerformed By: #### GLULS #### Point of Care testing ,Gbppnjb9Eqdzixo MeterNoCritical access hospital Physician [facility] GulfportComment on above:Result Comment: PERFORMED BY: [address] [address] PATHOLOGIST ECHOMETER ENGINEER RAFIA LOPEZ M.D.Performed By: #### GLULS #### Point of Care testing ,Glucose [Mass/Vol]120 mg/dLHCA Florida Lake [facility] Physician [facility] GulfportComment on above: Result Comment: Random Glucose Reference Range is dependent on time and content of last meal. Glucose of more than 200 mg/dL in a nonstressed, ambulatory subject supports the diagnosis of Diabetes Mellitus.Performed By: #### GLULS #### Point of Care testing ,Glucose [Mass/volume] in Serum or PlasmaOrdered By: Babar Singh on 06-19-2024 Glucose [Mass/Vol]Glucose [Mass/volume] in Serum or Wyoapx10-772Wmxnrxan[address] [place], [place] [address]Comment on above:ADA recommended reference rangeRandom Glucose Reference Range is dependent on time and content of last meal. Glucose of more than 200 mg/dL in a nonstressed, ambulatory subject supports the diagnosisof Diabetes Mellitus.Glucose [Mass/volume] in Urine by Test strip Ordered By: NOLVIA SINGH on 06-09-9529Hlvgiqn Test strip (U) [Mass/Vol]Glucose [Mass/volume] in Urine by Test stripNoOhioHealth Grant Medical Center Hematocrit Auto (Bld) [Volume fraction]Ordered By: Babar Singh on 06-19-2024 Hematocrit (Bld) [Volume fraction]Hematocrit [Volume Fraction] of Blood by Automated count34.0-46.4FSelect Medical Cleveland Clinic Rehabilitation Hospital, AvonHemoglobin Test strip Ql (U)Ordered By: NOLVIA SINGH on 87-02-4761Rvcdxcinbg Ql (U)Hemoglobin [Presence] in Urine by Test stripNegKettering Health Troy Hemoglobin [Mass/volume] in BloodOrdered By: Babar Singh on 06-19-2024 Hemoglobin (Bld) [Mass/Vol]Hemoglobin [Mass/volume] in Blood11.8-15.4FSelect Medical Cleveland Clinic Rehabilitation Hospital, AvonHyaline casts [#/area] in Urine sediment by Automated countOrdered By: PROVIDER TEMP on 61-32-7558Asndmkm casts Auto (Urine sed) [#/Area]Hyaline casts [#/area] in Urine sediment by Automated count0-8Mi[facility] HospitalKetones Test strip Ql (U)Ordered By: PROVIDER TEMP on 23-50-2151Bdywltx Ql (U)Ketones [Presence] in Urine by Test stripParkview Health Bryan HospitalLeukocyte esterase [Presence] in Urine by Test stripOrdered By: PROVIDER TEMP on 17-41-2994Otkdiotyo esterase Test strip Ql (U) Leukocyte esterase [Presence] in Urine by Test stripHighNegKettering Health TroyLeukocytes [#/area] in Urine sediment by Automated count Ordered By: PROVIDER SAMANTHA on 58-42-9580HZI Auto (Urine sed) [#/Area]Leukocytes [#/area] in Urine sediment by Automated count04FSelect Medical Cleveland Clinic Rehabilitation Hospital, AvonLeukocytes [#/volume] corrected for nucleated erythrocytes in Blood by Automated counOrdered By: Babar Singh on 44-57-1067SGG corrected for nucl RBC Auto (Bld) [#/Vol]Leukocytes [#/volume] corrected for nucleated erythrocytes in Blood by Automated coun3.8-11.6FSelect Medical Cleveland Clinic Rehabilitation Hospital, AvonLymphocytes Auto (Bld) [#/Vol]Ordered By: Babar Singh on 51-63-6920Sbnkwnmnzcl (Bld) [#/Vol] Lymphocytes [#/volume] in Blood by Automated count1.00-4.8Mi[facility] HospitalLymphocytes/100 WBC Auto (Bld)Ordered By: Babar Singh on 93-54-9912Fayqpwqbeig/100 WBC (Bld)Lymphocytes/100 leukocytes in Blood by Automated count.[facility] HospitalMCH Auto (RBC) [Entitic mass] Ordered By: Babar Singh on 04-54-9494GWX (RBC) [Entitic mass]MCH [Entitic mass] by Automated count24.7-34.3FSelect Medical Cleveland Clinic Rehabilitation Hospital, AvonMCHC Auto (RBC) [Mass/Vol]Ordered By: Babar Singh on 55-91-6859SSJF (RBC) [Mass/Vol]MCHC [Mass/volume] by Automated count32.0-35.0[facility] HospitalMCV Auto (RBC) [Entitic vol]Ordered By: Babar Singh on 98-68-6979KNU (RBC) [Entitic vol]MCV [Entitic volume] by Automated ureqh66-315AeojueexeMiami Valley HospitalMonocyte distribution width [Entitic volume] in Blood by AutomatedOrdered By: Babar Singh on 53-41-0341Vebwwfdc distribution width Auto (Bld) [Entitic vol]Monocyte distribution width [Entitic volume] in Blood by Automated0.00-20.00 [facility] HospitalMonocytes Auto (Bld) [#/Vol]Ordered By: Babar Singh on 31-15-2131Ygtigrhqg (Bld) [#/Vol]Automated blood monocyte count0.0-0.8 [facility] HospitalMonocytes/100 WBC Auto (Bld)Ordered By: Babar Singh on 50-60-1832Ruuvmhvnv/100 WBC (Bld)Automated monocyte %.[facility] HospitalMucus [Presence] in Urine by AutomatedOrdered By: NOLVIA SINGH on 65-41-4086Lkitr Auto Ql (U)Mucus [Presence] in Urine by AutomatedAbnormalMiami Valley HospitalNeutrophils Auto (Bld) [#/Vol] Ordered By: Babar Singh on 76-53-8668Ymgjoygnmek (Bld) [#/Vol]Neutrophils [#/volume] in Blood by Automated count1.8-7.7FSelect Medical Cleveland Clinic Rehabilitation Hospital, Avon Neutrophils/100 WBC Auto (Bld)Ordered By: Babar Singh on 06-19-2024 Neutrophils/100 WBC (Bld)Automated neutrophil %.[facility] HospitalNitrite Test strip Ql (U)Ordered By: NOLVIA SINGH on 05-38-7275Ltzowaj Ql (U)Nitrite [Presence] in Urine by Test stripNegKettering Health TroyNo Panel InformationOrdered By: Babar Singh on 62-04-2024Unjnwnzfq GFR (CKD-EPI)> 60.0 mL/MinMiami Valley HospitalPharmacy Creatinine Clearance (Chem83.38[facility] HospitalNo Panel InformationOrdered By: PROVIDER TEMP on 99-70-1476Gmynhzv Glucose #2 CommentCleaned meterMiami Valley HospitalBedside Glucose CommentSee commentMiami Valley HospitalComment on above:Glu2: WILL NOTIFY DR/RNNucleated erythrocytes [Presence] in Blood by Automated countOrdered By: Babar Singh on 06-19-2024 Nucleated RBC Auto Ql (Bld)Nucleated erythrocytes [Presence] in Blood by Automated count0-0.5FSelect Medical Cleveland Clinic Rehabilitation Hospital, AvonPlatelet mean volume Auto (Bld) [Entitic vol]Ordered By: Babar Singh on 54-93-4620Qqgfccno mean volume (Bld) [Entitic vol]Platelet mean volume [Entitic volume] in Blood by Automated count6.3-10.7FSelect Medical Cleveland Clinic Rehabilitation Hospital, AvonPlatelets Auto (Bld) [#/Vol] Ordered By: Babar Singh on 20-61-0379Shkznxbxh (Bld) [#/Vol]Platelets [#/volume] in Blood by Automated hezqj833-213HkmfpzqxsMiami Valley Hospital Potassium [Moles/volume] in Serum or PlasmaOrdered By: Babar Singh on 34-09-8002Blafvzjob [Moles/Vol]Potassium [Moles/volume] in Serum or Plasma 3.5-5.1FSelect Medical Cleveland Clinic Rehabilitation Hospital, AvonProtein Test strip (U) [Mass/Vol]Ordered By: NOLVIA SINGH on 00-50-1082Xyyxjfq (U) [Mass/Vol]Protein [Mass/volume] in Urine by Test stripHighNegKettering Health TroyProtein [Mass/volume] in Serum or PlasmaOrdered By: Babar Singh on 41-06-1794Keprxpx [Mass/Vol]Protein [Mass/volume] in Serum or Plasma6.4-8.9Mi[facility] HospitalRBC Auto (Bld) [#/Vol]Ordered By: Bbaar Singh on 97-18-2848MTC (Bld) [#/Vol]Erythrocytes [#/volume] in Blood by Automated count3.60-5.00 [facility] Hospitalerum or plasma albumin/globulin mass ratio Ordered By: Babar Singh on 02-39-4560Hdbbrfl/Globulin [Mass ratio]Serum or plasma albumin/globulin mass ratioThe Bellevue Hospitalerum or plasma anion gap determinationOrdered By: Babar Singh on 91-62-1840Oijwk gap [Moles/Vol]Serum or plasma anion gap determination6.0-15.0The [facility]vue Hospitalodium [Moles/volume] in Serum or PlasmaOrdered By: Babar Singh on 21-30-1046Ahvxwj [Moles/Vol]Sodium [Moles/volume] in Serum or Nmzslx453-966 [facility] Hospitalpecific gravity Test strip (U) [Rel density] Ordered By: NOLVIA SINGH on 87-70-1835Ahqlpfvs gravity (U) [Rel density] Specific gravity of Urine by Test strip1.001-1.030Mi[facility] Valley HospitalTroponin I High Sensitivityon 34-91-7306Pjylkuhr I High Sensitivity<3 Normal0-15The Unc Health Physician GroupComment on above:Result Comment: The Troponin units of report have been changed to meet the Chest Pain Accreditation requirement, element EC5.M1l2. Troponin units are changed from pg/ml to ng/L. Also, the decimal is removed and results are in whole numbers. PERFORMED BY: [facility] [address] [place] [address] PATHOLOGIST ECHOMETER ENGINEER RAFIA LOPEZ M.D.Performed By: #### CK, HS TROP, CBC, CMP ####[facility] [id number] [facility] Troponin I.cardiac [Mass/volume] in Serum or Plasma by Detection limit <= 0.01 ng/Ordered By: Babar Singh on 06-15-0706Isaghaoe I.cardiac DL <= 0.01 ng/mL [Mass/Vol]Troponin I.cardiac [Mass/volume] in Serum or Plasma by Detection limit <= 0.01 ng/0-15Mi[facility] Valley HospitalComment on above:The Troponin units of report have been changed to meet the Chest Pain Accreditation requirement, element EC5.M1l2. Troponin units are changed from pg/ml to ng/L. Also, the decimal is removed and results are in whole numbers.Urea nitrogen [Mass/volume] in Serum or PlasmaOrdered By: Babar Singh on 76-22-0312Ofzp nitrogen [Mass/Vol]Urea nitrogen [Mass/volume] in Serum or Plasma12-12Mi[facility] Valley HospitalUrobilinogen Test strip (U) [Mass/Vol]Ordered By: PROVIDER TEMGeorges on 19-39-6635Xdghzbqzoaxk (U) [Mass/Vol]Urobilinogen [Mass/volume] in Urine by Test stripNormMemorial HospitalWBC Auto (Bld) [#/Vol]Ordered By: Babar Singh on 57-12-0498TTD (Bld) [#/Vol]Leukocytes [#/volume] in Blood by Automated count3.8-11.6FSelect Medical Cleveland Clinic Rehabilitation Hospital, Avon pH Test strip (U)Ordered By: PROVIDER SAMANTHA on 98-61-9606tN (U)pH of Urine by Test strip5.0-9.0Miami Valley HospitalLon 06-17-2024L Specimen: [id number] Received: 06/17/24 Status: MG Clemente Num: [id number] Spec Type: Surgical Subm Dr: Dano Pyle, DO Tissues: A Breast Lumpectmy/Mass - Requiring Micros Eval of Margins (RT BREAST MASS @ 1 B Breast Lumpectmy/Mass - Requiring Micros Eval of Margins (RT BREAST MASS @ 7 Procedures: , Gross/Micro L5/2 Age/ Patient Sex Location Account Attending Physician MirnaBrittanie M 39/F [place] [id number] Dano Pyle DO SPEC NUM: [id number] RECD: 06/17/24 STATUS: MG CLEMENTE NUM: [id number] TACOS: 06/17/[address] [facility] [address]: Dano Pyle DO ENTERED: 06/17/24 KAMARI MCKEON TYPE: Surgical DEPT: S ENTERED BY: [id number] RECV BY: [id number] ORDERED: , Gross/Micro L5/2 ORDERED: , Gross/Micro [...] [id number] Received: 06/17/24 Status: MG Elizabeth Num: [id number] Spec Type: Surgical Subm Dr: Dano Pyle, Tissues: A Breast Lumpectmy/Mass - Requiring Micros Eval of Margins (RT BREAST MASS @ 1 B Breast Lumpectmy/Mass - Requiring Micros Eval of Margins (RT BREAST MASS @ 7 Procedures: , Gross/Micro L5/2 Patient: Brittanie Garcia [id number] (Continued) Specimen: [id number] Received: 06/17/24 (Continued) Signed (signature on file) Dany Fonseca MD 06/18/24 1427 Specimen: [id number] Received: 06/17/24 Status: MG Clemente Num: [id number] Spec Type: Surgical Subm Dr: Dano Pyle DO Tissues: A Breast Lumpectmy/Mass - Requiring Micros Eval of Margins (RT BREAST MASS @ 1 B Breast Lumpectmy/Mass - Requiring Micros Eval of Margins (RT BREAST MASS @ 7 Procedures: , Michael/Mercedez L5/2 Patient: Brittanie Garcia [id number] (Continued) Specimen: [id number] Received: 06/17/24 (Continued) Clinical [...] Total fixation time: 8 hours (8, ns, S29-584 A)JG Part B is received in formalin labeled with the patients name, date of , and mass at (more content not included)...NormalThe Unc Health Physician GroupCalcium [Mass/volume] in Serum or PlasmaOrdered By: Dano Pyle on 05-01-2023 Calcium [Mass/Vol]9.7 mg/dL8.6-10.3FSelect Medical Cleveland Clinic Rehabilitation Hospital, AvonCarbon dioxide, total [Moles/volume] in Serum or PlasmaOrdered By: Dano Pyle on 91-40-4586WN2 [Moles/Vol]28.9 mmol/L21.0-31.0[facility] Chloride [Moles/volume] in Serum or PlasmaOrdered By: Dano Pyle on 71-96-0330Lzsyobfs [Moles/Vol]105 mmol/F51-125PlypjxhbbMiami Valley Hospital Creatinine [Mass/volume] in Serum or PlasmaOrdered By: Dano Pyle on 36-02-7520Wnffmhewga [Mass/Vol]0.75 mg/dL0.60-1.20[facility] HospitalGlucose [Mass/volume] in Serum or PlasmaOrdered By: Dano Pyle on 08-07-5661Gpwzbhh [Mass/Vol]84 mg/fP67-916IllyxonpkMiami Valley Hospital Comment on above:ADA recommended reference rangeRandom Glucose Reference Range is dependent on time and content of last meal. Glucose of more than 200 mg/dL in a nonstressed, ambulatory subject supports the diagnosisof Diabetes Mellitus.No Panel InformationOrdered By: Dano Pyle on 60-91-7414Vklygxcyv GFR (CKD-EPI)> 60.0 mL/MinMiami Valley HospitalPharmacy Creatinine Clearance (ChemN/AFSelect Medical Cleveland Clinic Rehabilitation Hospital, AvonPotassium [Moles/volume] in Serum or PlasmaOrdered By: Dano Pyle on 28-32-0804Ondwbakyd [Moles/Vol] 4.3 mmol/L3.5-5.1FOhioHealth Riverside Methodist Hospitalerum or plasma anion gap determinationOrdered By: Dano Pyle on 01-67-3288Rmwyq gap [Moles/Vol]9.4 mmol/L6.0-15.0The [facility] Hospitalodium [Moles/volume] in Serum or PlasmaOrdered By: Dano Pyle on 50-25-9812Sttxzu [Moles/Vol]139 mmol/L 136-145Mi[facility] HospitalUrea nitrogen [Mass/volume] in Serum or PlasmaOrdered By: Dano Pyle on 93-49-2190Lvvg nitrogen [Mass/Vol]14 mg/dL7-25Mi[facility] HospitalBasophils Auto (Bld) [#/Vol]Ordered By: Robert Menchaca on 98-47-0154Niqhakcqg (Bld) [#/Vol]0.0 10*3/uL0.0-0.2FSelect Medical Cleveland Clinic Rehabilitation Hospital, AvonBasophils/100 WBC Auto (Bld)Ordered By: Robert Menchaca on 51-88-1414Avqhfyikt/100 WBC (Bld)0.4 %.[facility] Eosinophils Auto (Bld) [#/Vol]Ordered By: Robert Menchaca on 78-29-9117Xkhffxonxfj (Bld) [#/Vol]0.1 10*3/uL0.0-0.45Mi[facility] HospitalEosinophils/100 WBC Auto (Bld)Ordered By: Robert Menchaca on 40-38-8146Zjcbflykonz/100 WBC (Bld) 1.2 %.[facility] HospitalErythrocyte distribution width Auto (RBC) [Ratio]Ordered By: Robert Menchaca on 90-45-7824Phecoqfgjys distribution width (RBC) [Ratio]13.4 %11.9-15.3FSelect Medical Cleveland Clinic Rehabilitation Hospital, AvonFerritin [Mass/volume] in Serum or PlasmaOrdered By: Robert Menchaca on 60-22-4917Bboqppor [Mass/Vol]110.5 ng/mL11.0-306.8Mi[facility] HospitalHematocrit Auto (Bld) [Volume fraction]Ordered By: Robert Menchaca on 11-71-5010Sgpcfhwlpx (Bld) [Volume fraction]42.6 %34.0-46.4FSelect Medical Cleveland Clinic Rehabilitation Hospital, AvonHemoglobin [Mass/volume] in BloodOrdered By: Robert Menchaca on 78-18-6257Pdynydsvph (Bld) [Mass/Vol]14.2 g/dL11.8-15.4FSelect Medical Cleveland Clinic Rehabilitation Hospital, AvonLeukocytes [#/volume] corrected for nucleated erythrocytes in Blood by Automated coun Ordered By: Robert Menchaca on 56-69-5321SOP corrected for nucl RBC Auto (Bld) [#/Vol]7.0 10*3/uL3.8-11.6FSelect Medical Cleveland Clinic Rehabilitation Hospital, AvonLymphocytes Auto (Bld) [#/Vol]Ordered By: Robert Menchaca on 90-73-3516Pqqrdpcnxqt (Bld) [#/Vol]2.5 10*3/uL1.00-4.8Mi[facility] HospitalLymphocytes/100 WBC Auto (Bld) Ordered By: Robert Menchaca on 33-59-4268Hozmmwpzlxg/100 WBC (Bld)35.4 %.[facility] HospitalMCH Auto (RBC) [Entitic mass]Ordered By: Robert Menchaca on 71-06-3849EVN (RBC) [Entitic mass]28.7 pg24.7-34.3FSelect Medical Cleveland Clinic Rehabilitation Hospital, AvonMCHC Auto (RBC) [Mass/Vol]Ordered By: Robert Menchaca on 49-43-1086EGTU (RBC) [Mass/Vol]33.3 g/dL32.0-35.0Mi[facility] HospitalMCV Auto (RBC) [Entitic vol]Ordered By: Robert Menchaca on 65-58-6508ZEX (RBC) [Entitic vol]86.2 dL74-593TghqaxzitMiami Valley HospitalMonocytes Auto (Bld) [#/Vol]Ordered By: Robert Menchaca on 17-15-5891Rdirllcnw (Bld) [#/Vol]0.5 10*3/uL0.0-0.8Mi[facility] HospitalMonocytes/100 WBC Auto (Bld)Ordered By: Robert Menchaca on 45-90-5863Flftdgkzr/100 WBC (Bld)6.5 %.[facility] Neutrophils Auto (Bld) [#/Vol]Ordered By: Robert Menchaca on 23-11-8203Edfdcdfztae (Bld) [#/Vol]4.0 10*3/uL1.8-7.7FSelect Medical Cleveland Clinic Rehabilitation Hospital, AvonNeutrophils/100 WBC Auto (Bld)Ordered By: Robert Menchaca on 74-71-2465Cjazqjdetyb/100 WBC (Bld) 56.5 %.Mi[facility] Valley HospitalNucleated erythrocytes [Presence] in Blood by Automated countOrdered By: Robert Menchaca on 82-15-3200Lbsesrzrp RBC Auto Ql (Bld)0.1 /100{WBC}0-0.5FSelect Medical Cleveland Clinic Rehabilitation Hospital, AvonPlatelet mean volume Auto (Bld) [Entitic vol]Ordered By: Robert Menchaca on 09-96-4055Ugpyszdm mean volume (Bld) [Entitic vol]8.3 fL6.3-10.7FSelect Medical Cleveland Clinic Rehabilitation Hospital, Avon Platelets Auto (Bld) [#/Vol]Ordered By: Robert Menchaca on 08-11-8442Mnrvvaohh (Bld) [#/Vol]223 10*3/sP038-992ZeujjhiciMiami Valley HospitalRBC Auto (Bld) [#/Vol]Ordered By: Robert Menchaca on 05-80-9776AYA (Bld) [#/Vol]4.94 10*6/uL 3.60-5.00Mi[facility] HospitalWBC Auto (Bld) [#/Vol]Ordered By: Robert Menchaca on 08-07-7315BSO (Bld) [#/Vol]7.0 10*3/uL3.8-11.6FSelect Medical Cleveland Clinic Rehabilitation Hospital, AvonEchocardiogramon 40-42-1577BypbkurwdpecbzacUdm[address], [address], [place] [address] TRANSTHORACIC ECHOCARDIOGRAM REPORT Patient Name: BRITTANIE Zoe Rudd Physician: [id number] Saeed GARCIA MD Study Date: 12/28/2022 Referring SORAYAChan CAGE Physician: MRN/PID: [id number] PCP: Filiberto Obrien Accession/Order#: [id number] [facility] Location: [place] Date of : 1985 Fellow: Gender: F Nurse: Admit Date: [employer] Stabilizer Operator: Lanny Padron RDCS, RVT Height: 157.48 cm CC Report to: Weight: 74.84 kg Study Type: Echocardiogram BSA: 1.76 m2 Blood Pressure: 106 /70 mmHg Diagnosis/ICD: R00.0-Tachycardia, unspecified; B93-Kyrpxyb Indication: Hyperlipidemia, Overweight Procedure/CPT: Echo Complete w Full Doppler-16019 Study Detail: The following Echo studies were [...] 0.8 m/s (0.6-0.9m/s) PV Max P.4 mmHg [id number] Saeed Parada MD Electronically signed on 01/01/2023 at 2:35:16 PM Final [facility] HospitalOffice Visit (Cardiology)on 21-40-6690Ztlloi-up visitDiagnoses/Problems Assessed Sinus tachycardia (427.89) (R00.0) Vasovagal [...] alcoholic beverages.; Status:Complete - Retrospective Authorization; Done: [id number] Drink at least 6 glasses of water or juice a day.; Status:Complete - Retrospective Authorization; Done: [id number] Patient Instructions Avoid dehydration. Drink 5-6 bottles [...] the time of your visit. Corina Jordan ALPINE PATROLLER, am scribing for and in the presence of Dr. Soraya Cage, FACC, FACP, FHRS The provider reviewed the following test(s) and result(s) with the patient: ECG, Holter monitor andTilt table Chief [facility] Initial Fall Risk [...] Normal axis. Corrected QT interval 420 ms. ID interval 150 ms See signed ECG and check /Paceart. Imp / Plan Recurrent syncope, consistent with vasovagal etiology. Discussed mechanisms of syncope. Reviewed syncope brochure. Reviewed testing event monitor and tilt table te (more content not included)...NormalUH TouchworksOffice Visit (Cardiology)on 87-96-1026Xzqnnl-up visitDiagnoses/Problems Assessed Vasovagal near syncope (780.2) (R55) [...] Signs Recorded: 10Nov2022 09:01AMRecorded: 10Nov2022 08:58AM Systolic Uhknova78, LUE, Sitting Diastolic Sskniqs01, LUE, Sitting Systolic Uyiuplby677, LUE, Standing Diastolic Aqrrdrua88, LUE, Standing Heart Rate92, L Radial Gmbyiecb32, LUE, Sitting Fmxzskklw97, LUE, Sitting Height5 ft 2 in Uoywum123 lb BMI Korpztqbrn75.63 kg/m2 BSA Calculated1.75 Tobacco Useb) No Falls [...] DO; Nov 10 2022 11:29AM EST (Author) [facility] Panel Informationon 62-66-8910QLJac[place] [address] DO Work Phone: Cardiovasc Arrhythmia Resultson 08-13-0471Gpjkydxelx Arrhythmia ResultsReason For Visit Event Monitor: BRITTANIE is here for the application of a 30 day event monitor in office., Diagnosis: Syncope,Fainting Ordering Physician: Dr. Saeed Castellanos DO Enrollment sent to: [employer] Monitor number [id number] applied. Holter monitor printed and placed on [...] suggested. Future Appointments Date/TimeProviderSpecialtySite 11/10/2022 08:50 Saeed Ahumada DOCardiology[address] [place] [address] DO 11/14/2022 04:20 Soraya Cage MDCardiology[address] DO Signatures Electronically signed by : Saeed Parada MD; Nov 02 2022 9:05AM EST (Author) [facility] TouchworksOffice Visit (Cardiology)on 70-16-2640Utjnub-up visit Diagnoses/Problems Assessed Vasovagal near syncope (780.2) [...] cardiology consultation at the request of Dr. Obrien for recurrent syncopal episodes. She describes 7 [...] no rebound tachycardia. Recommendations, obtain Marcio of [facility] monitoring, tilt table test, refer to [...] complaint. Vitals Vital Signs Recorded: 20Sep2022 10:01AMRecorded: 74Dcd0251 09:59AM Systolic Dsort591 Diastolic Lying88 Systolic Dxfbyoq150 Diastolic Fwsqpjf69 Systolic Qgezpixp053 Diastolic Giaigmgx22 Heart Rate85, Apical Augvgreq255, LUE, Supine Naxvwhrqd13, LUE, Supine Height5 ft 2 in Wqodey222 lb BMI Ocrlfuajeq00.36 kg/m2 BSA Calculated1.77 Tobacco Useb) No PHQ-2 #1. Ov (more content not included)...NormalUH TouchworksTobacco Screening. on 50-81-4437Czvxo depression screening assessmentNo-[facility] [employer] DO Work Phone: Tobacco use status CPHSb) NoMP-[facility] [employer] 250 DO Work Phone: ANA BY IFA WITH REFLEXon 15-94-8632Wsyprsm Ab IF (S) [Titer]NegativeNegativeCleSelect Medical Cleveland Clinic Rehabilitation Hospital, BeachwoodCCP ANTIBODY IGGon 31-67-1599Fmpvsb citrullinated peptide IgG Qn<20 UnitsClegood samaritan hospital ClinicCyclic citrullinated peptide IgG Qnon 93-05-8231FZS Antibody IgG QualitativeNegativeNegativeUniversity Hospitals Conneaut Medical Center-REACTIVE PROTEIN (CRP)on 41-39-8642TLB [Mass/Vol]<0.9 mg/dLSt. Mary's Medical Center[facility] W Auto Differential panel (Bld)on 25-33-0699Gwukautmy (Bld) [#/Vol] 0.03 10*3/uL<0.11 k/uLGrant HospitalBasophils/100 WBC (Bld)0.4 %Grant HospitalDifferential cell count method Nom (Bld)AutoCleveland ClinicEosinophils (Bld) [#/Vol]0.07 10*3/uL<0.46 k/uLGrant HospitalEosinophils/100 WBC (Bld)0.9 %Grant HospitalErythrocyte distribution width (RBC) [Ratio]13.0 %11.5 - 15.0 % Grant HospitalHematocrit (Bld) [Volume fraction]44.1 %36.0 - 46.0 %Grant HospitalHemoglobin (Bld) [Mass/Vol]14.3 g/dL11.5 - 15.5 g/dLGrant Hospital Immature granulocytes (Bld) [#/Vol]<0.10 k/uLGrant HospitalImmature granulocytes/100 WBC (Bld)0.3 %Grant HospitalLymphocytes (Bld) [#/Vol]2.43 10*3/uL1.00 - 4.00 k/uLGrant HospitalLymphocytes/100 WBC (Bld)30.5 %[facility] HospitalH (RBC) [Entitic mass]29.0 pg26.0 - 34.0 pgClevelWelia HealthHC (RBC) [Mass/Vol]32.4 g/dL30.5 - 36.0 g/dLBarberton Citizens HospitalV (RBC) [Entitic vol]89.5 fL80.0 - 100.0 fLCleveland ClinicMonocytes (Bld) [#/Vol]0.49 10*3/uL<0.87 k/uL Grant HospitalMonocytes/100 WBC (Bld)6.1 %Grant HospitalNeutrophils (Bld) [#/Vol]4.93 10*3/uL1.45 - 7.50 k/uLGrant HospitalNeutrophils/100 WBC (Bld)61.8 %Grant HospitalNucleated RBC (Bld) [#/Vol]<0.01 k/uLGrant HospitalNucleated RBC/100 WBC (Bld) [Ratio]0.0 /100 WBCPrinceton ClinicPlatelet mean volume (Bld) [Entitic vol]10.1 fL9.0 - 12.7 fLCleveland ClinicPlatelets (Bld) [#/Vol]251 10*3/uL150 - 400 k/uLPrinceton ClinicRBC (Bld) [#/Vol]4.93 10*6/uL3.90 - 5.20 m/uLGrant HospitalWBC (Bld) [#/Vol]7.97 10*3/uL3.70 - 11.00 k/uLGrant HospitalComprehensive metabolic 2000 panelon 11-08-6414Ugfycly [Mass/Vol]4.7 g/dL 3.9 - 4.9 g/dLPrinceton ClinicALP [Catalytic activity/Vol]86 U/L34 - 123 U/L Princeton ClinicALT [Catalytic activity/Vol]58 U/LHigh7 - 38 U/LCMiami Valley Hospital Anion gap [Moles/Vol]12 mmol/L9 - 18 mmol/LCleveland ClinicAST [Catalytic activity/Vol]31 U/L13 - 35 U/LCleveland ClinicBilirubin [Mass/Vol]0.4 mg/dL0.2 - 1.3 mg/dLPrinceton ClinicCalcium [Mass/Vol]10.0 mg/dL8.5 - 10.2 mg/dLGrant HospitalChloride [Moles/Vol]105 mmol/L97 - 105 mmol/LCleveland ClinicCO2 [Moles/Vol]23 mmol/L22 - 30 mmol/LCleveland ClinicCreatinine [Mass/Vol]0.79 mg/dL0.58 - 0.96 mg/dLGrant HospitalEstimated Glomerular Filtration Kabn290 mL/min/1.73m>=60 mL/min/1.73mCleveland ClinicGlucose [Mass/Vol]84 mg/dL74 - 99 mg/dLGrant HospitalPotassium [Moles/Vol]4.1 mmol/L3.7 - 5.1 mmol/LCleveland ClinicProtein [Mass/Vol]7.7 g/dL6.3 - 8.0 g/dLPrinceton ClinicSodium [Moles/Vol] 140 mmol/L136 - 144 mmol/LCleveland ClinicUrea nitrogen [Mass/Vol]12 mg/dL7 - 21 mg/dLAvita Health System Galion Hospital Westergren method (Bld) [Velocity]on 79-28-7001XMM (Bld) [Velocity]5 mm/h0 - 20 mm/hrGrant HospitalNo Panel Informationon 75-87-7652Okdemskuz [facility] HospitalRHEUMATOID FACTOR BLon 07-28-2022 Rheumatoid factor Qn<16 IU/mLCleveland ClinicXR CSPINE OBL FLEX_EXTon 02-16-2022 XR CSPINE OBL [...] Electronically authenticated by: NAVNEET MONTERO Date: 2022-02-16 08:57[facility] Memorial HospitalFerritin [Mass/volume] in Serum or PlasmaOrdered By: Kenna Sheehan on 08-41-3313Bmxrivgw [Mass/Vol]51.8 ng/tX29-133.8Miami Valley HospitalPA ACOG PANEL 2: 30 to 65on 01-13-2022..NormalThe [facility] North HospitalComment on above:Result Comment: Performed at: WBPerformed By: #### [id number] #### [facility] [address] [place] [address] [address] Lui Lopez Gdln ACOG Dioorsa55-76MuboveUbbMiddletown HospitalComment on above:Performed By: #### [id number] #### [facility] [address] [place] [address] [address] Lui FonsecaDIAGNOSIS:CommentJoint Township District Memorial HospitalComment on above: Result Comment: NEGATIVE FOR INTRAEPITHELIAL LESION OR MALIGNANCY. Performed at: WBPerformed By: #### [id number] #### [facility] [address] [place] [address] Dr. Lui FonsecaHPV AptimaNegativeNormalNegativeThe [facility] on above:Result Comment: This nucleic acid amplification test detects fourteen high-risk HPV types (16,18,31,33,35,39,45,51,52,56,58,59,66,68) without differentiation. Performed at: =GPerformed By: #### [id number] #### [facility] [address] [place] [address] Dr. Lui FonsecaMethodology:CommentCincinnati Shriners Hospital on above: Result Comment: This liquid based ThinPrep(R) pap test was screened with the use of an image guided system. Performed at: WBPerformed By: #### [id number] #### [place] [address] Dr[address] Lui FonsecaNote:CommentCincinnati Shriners Hospital on above:Result Comment: The Pap smear is a screening test designed to aid in the detection of premalignant and malignant conditions of the uterine cervix. It is not a diagnostic procedure and should not be used as the sole means of detecting cervical cancer. Both false-positive and false-negative reports do occur. . Performed at: WBPerformed By: #### [id number] #### [facility] [address] [place] [address] Dr. Lui FonsecaPerformed by:CommentNoMercy Health Urbana Hospital on above: Result Comment: Tere Alejandro, Supervisory Road Production General Manager (ASCP) Performed at: WBPerformed By: #### [id number] #### [facility] [address] [place] [address] Dr. Lui FonsecaSpecimeebony adequacy:CommentCincinnati Shriners Hospital on above:Result Comment: Satisfactory for evaluation. No endocervical component is identified. Performed at: WBPerformed By: #### [id number] #### [facility] [address] [place] [address] Dr. Lui FonsecaINSULINon 19-55-8010Zovxrbq27.6 uIU/mLNormal2.6-24.9The [facility] North HospitalComment on above:Performed By: #### INSULIN #### [facility] [address] [place] [address] Dr. Lui Pozo PYLORI ANTIBODY IGGon 01-01-2022H. PYLORI IGG ABS0.15 Index ValueNormal0.00-0.79The [facility] North HospitalComment on above:Result Comment: Negative <0.80 Equivocal 0.80 - 0.89 Positive >0.89Performed By: #### HPYLLC #### [facility] [address] [place] [address] Dr. Lui Marrero4, T3U, FTI LABCORPon 63-49-8687Gfho Thyroxine Index2.7Normal 1.2-4.9The [facility] North HospitalComment on above:Performed By: #### THYLC #### [facility] [address] [place] [address] Dr. Lui FonsecaT3 Zkdjzo99 %Bbgjsl80-51Fzz [facility] HospitalComment on above: Performed By: #### THYLC #### [facility] [address] [place] [address] Dr. Lui Ramos [Mass/Vol]9.1 ug/dLNormal4.5-12.0The [facility] North HospitalComment on above:Performed By: #### THYLC #### [facility] [address] [place] [address] Dr. Lui Ramos AUTO DIFFon 33-54-9063DWMV #0.0 103/ulNormal0.0-0.1The [facility] North HospitalComment on above:Performed By: #### CBC #### [facility] [address] [place] [address] Dr. Lui FonsecaBasophils/100 WBC (Bld)0.4 %Normal0.2-2.0The [facility] Comment on above:Performed By: #### CBC #### [facility] [address] [place] [address] Dr. Poe ChangEO #0.2 103/ulNormal0.0-0.7The [facility] HospitalComment on above: Performed By: #### CBC #### [facility] [address] [place] [address] Dr. Lui Mixosinophils/100 WBC (Bld)2.8 %Normal0.9-7.0The [facility] Comment on above:Performed By: #### CBC #### [facility] [address] [place] [address] Dr. Lui Mixrythrocyte distribution width (RBC) [Ratio]13.2 %Bvdcpc65.0-15.0 The [facility] North HospitalComment on above:Performed By: #### CBC #### [facility] [address] [place] [address] Dr. Lui FonsecaHematocrit (Bld) [Volume fraction]44.0 %Bkvkij00.0-48.0The [facility] North HospitalComment on above:Performed By: #### CBC #### [facility] [address] [place] [address] Dr. Lui FonsecaHemoglobin (Bld) [Mass/Vol]14.3 g/aGNhmdyo23.0-16.0The [facility] HospitalComment on above:Performed By: #### CBC #### [facility] [address] [place] [address] Dr. Lui Haas #0.01 10e3/ulNormal0.00-0.03The [facility] North HospitalComment on above:Performed By: #### CBC #### [facility] [facility] [address] [place] [address] Dr. Lui Haas %0.2 %Normal0.0-0.5The [place] HospitalComment on above: Performed By: #### CBC #### [facility] [address] [place] [address] Dr. Lui GormanH #2.3 103/ulNormal1.2-3.8The [facility] HospitalComment on above:Performed By: #### CBC #### [facility] [address] [place] [address] Dr. Yilan ChangLymphocytes/100 WBC (Bld)41.6 %Hnbvhe23.5-60.0The [facility] HospitalComment on above:Performed By: #### CBC #### [facility] [address] [place] [address] Dr. Lui Ricketts DIFF REQNONormalThe [facility] HospitalComment on above: Performed By: #### CBC #### [facility] [address] [place] [address] Dr. Lui Harris (RBC) [Entitic mass]29.1 maHrwphl64.7-34.0The [place] HospitalComment on above:Performed By: #### CBC #### [facility] [address] [place] [address] Dr. Lui Harris (RBC) [Mass/Vol]32.5 g/kDDgmfci98.9-35.2The [facility] HospitalComment on above:Performed By: #### CBC #### [facility] [address] [place] [address] Dr. Lui Cruz (RBC) [Entitic vol]89.6 xRGczdfk52.0-99.0The [facility] HospitalComment on above:Performed By: #### CBC #### [facility] [address] [place] [address] Dr. Lui Mcghee #0.3 103/ulNormal0.3-0.8The [facility] HospitalComment on above:Performed By: #### CBC #### [facility] [address] [place] [address] Dr. Lui Roblesocytes/100 WBC (Bld)6.3 %Normal1.7-12.0The [facility] Comment on above:Performed By: #### CBC #### [facility] [address] [place] [address] Dr. Lui Amor #2.7 103/ulNormal1.4-6.5The [facility] HospitalComment on above:Performed By: #### CBC #### [facility] [address] [place] [address] Dr. Yilan ChangNeutrophils/100 WBC (Bld)48.7 %Vyquee90.0-75.0The [facility] HospitalComment on above:Performed By: #### CBC #### [facility] [address] [address] [address] Lui FonsecaPlatelet mean volume (Bld) [Entitic vol]9.5 fLNormal9.5-13.5The [facility] HospitalComment on above:Performed By: #### CBC #### [facility] [address] [address] [address] Lui FonsecaPLT276 103/mhLojokw895-161Bii [facility] HospitalComapex [facility] center on above: Performed By: #### CBC #### [facility] [address] [address] [address] Lui FonsecaRBC4.91 106/ulNormal4.20-5.40The [facility] on above:Performed By: #### CBC #### [facility] [address] [address] [address] Lui FonsecaWBC5.4 103/ulNormal4.0-11.0The [facility] HospitalComment on above: Performed By: #### CBC #### [facility] [address] [address] [address] Lui FonsecaGLYCOHEMOGLOBIN A1Con 83-50-9750BDN RECOMMENDATIONSEE BELOWNormMetroHealth [facility] Medical CenterComapex medical center on above:Result Comment: ADA RECOMMENDED LIMIT 4.0 - 6.0 ADA THERAPEUTIC TARGET < 7.0 ACTION SUGGESTED > 7.0Performed By: #### A1C ####[facility] [address] [address]Dr. Lui FonsecaGlucose [Mass/Vol]97 mg/dLNoalThGalion HospitalComapex medical center on above:Performed By: #### A1C ####[facility] [address] [address]Dr.Yilan FonsecaHbA1c (Bld) [Mass fraction]5.0 %Normal 4.5-6.2The [facility] HospitalComapex medical center on above:Performed By: #### A1C ####[facility] [address] [address]Dr.Lui FonsecaIRONon 09-69-3667Xwdc [Mass/Vol]101.0 ug/aTGtknjp43.0-170.0The [facility] on above:Performed By: #### IRON #### [facility] [address] [place], [place] [address] Dr. Lui FonsecaLIPID PROFILEon 34-01-0469NIET-HDL RATIO NORMSEE BELOWNoMiddletown HospitalComment on above:Result Comment: 3.3 - 4.4 LOW RISK 4.4 - 7.1 AVERAGE RISK 7.1 - 11.0 MODERATE RISK >11.0 HIGH RISKPerformed By: #### TSH, LIPID, CMP ####[facility] [address] [address]Dr. Lui FonsecaCholesterol [Mass/Vol]149 mg/dLNormal<=200The [facility] on above:Performed By: #### TSH, LIPID, CMP ####[facility] [address] [address]Dr. Lui Fonseca Cholesterol in HDL [Mass/Vol]55 mg/wAXdwmue69-03Dzb [facility] on above:Performed By: #### TSH, LIPID, CMP ####[facility] [address] [address]Dr. Lui FosnecaCholesterol in LDL [Mass/Vol] 61.4 mg/dLJoint Township District Memorial HospitalComapex medical center on above:Performed By: #### TSH, LIPID, CMP ####[facility] [address] [address]Dr. Lui FonsecaCholesterol.total/Cholesterol in HDL [Mass ratio]2.7 {ratio} NormalMartin Memorial Hospital on above:Performed By: #### TSH, LIPID, CMP ####[facility] [address] [address]Dr. Lui ChangHDL NORMAL> or = 60 mg/dl - LOW CARDIOVASCULAR RISK <40 mg/dl - HIGH CARDIOVASCULAR RISKNoMiddletown HospitalComment on above:Performed By: #### TSH, LIPID, CMP ####[facility] [address] [address]Dr. Lui ChangLDL CALC NORMALSEE BELOWJoint Township District Memorial HospitalComment on above:Result Comment: <100 mg/dl OPTIMAL 100 - 129 mg/dl NEAR OR ABOVE OPTIMAL 130 - 159 mg/dl BORDERLINE HIGH 160 - 189 mg/dl HIGH >190 mg/dl VERY HIGHPerformed By: #### TSH, LIPID, CMP ####[facility] [address] [address]Dr. Lui FonsecaTriglyceride [Mass/Vol]163 mg/dLCritically high<=150The [facility] HospitalComment on above: Performed By: #### TSH, LIPID, CMP ####[facility] [address] [address]Dr. Lui FonsecaVLDL CALC32.6 mg/dLNoMiddletown HospitalComment on above:Performed By: #### TSH, LIPID, CMP ####[facility] [address] [address]Dr. Lui Nash BLD IMMUNO SCREENon 91-30-1972AFGTCY BLOODNegativeNormalNEGATIVE The [facility] HospitalComapex medical center on above:Performed By: #### OBSCRN #### [facility] [address] [address] [address] Lui FonsecaPROF 14(COMP METB)on 27-90-2666Tzadzxb [Mass/Vol]4.1 g/dLNormal 3.4-5.0The [facility] HospitalComment on above:Performed By: #### TSH, LIPID, CMP ####[facility] [address] [address]Dr. Lui FonsecaAlbumin/Globulin [Mass ratio]1.2 {ratio}NormalThe [facility] Comment on above:Performed By: #### TSH, LIPID, CMP ####[facility] [address] [address]Dr. Lui FonsecaALP [Catalytic activity/Vol]86 U/TUbkdxs70-302Exe [facility] HospitalComment on above:Performed By: #### TSH, LIPID, CMP ####[facility] [address] [place], [place] [address]Dr. Yilan ChangALT [Catalytic activity/Vol]27 U/L Lsmsva33-72Cwq [facility] HospitalComment on above:Performed By: #### TSH, LIPID, CMP ####[facility] [address] [place], [place] [address]Dr. Yilan ChangAnion gap [Moles/Vol]14.1 mmol/LNormalThe [facility] HospitalComment on above:Performed By: #### TSH, LIPID, CMP ####[facility] [address] [place], [place] [address]Dr. Yilan ChangAST [Catalytic activity/Vol] 15 U/ZEszqqy33-14Fho [facility] HospitalComment on above:Performed By: #### TSH, LIPID, CMP ####[facility] [address] [place], [place] [address]Dr. Yilan ChangBilirubin [Mass/Vol]0.6 mg/dLNormal0.2-1.0The [facility] HospitalComment on above:Performed By: #### TSH, LIPID, CMP ####[facility] [address] [place], [place] [address]Dr. Yilan Fonseca Calcium [Mass/Vol]9.1 mg/dLNormal8.5-10.1The [facility] HospitalComment on above: Performed By: #### TSH, LIPID, CMP ####[facility] [address] [place], [place] [address]Dr. Yilan ChangChloride [Moles/Vol]104 mmol/L Bafvll33-378Qot [facility] HospitalComment on above:Performed By: #### TSH, LIPID, CMP ####[facility] Un[address] [place], [place] [address]Dr. Yilan ChangCO2 [Moles/Vol]26.8 mmol/OSxaisr95.0-32.0The [facility] HospitalComment on above:Performed By: #### TSH, LIPID, CMP ####[facility] [address] [address]Dr. Lui Fonseca Creatinine [Mass/Vol]0.84 mg/dLNormal0.55-1.02The [facility] Hospitalment on above:Performed By: #### TSH, LIPID, CMP ####[facility] [address] [place], [place] [address]Dr. Yilan ChangEGFR-AF DJIBOUTIAN>60Normal>=60 The [facility] HospitalComment on above:Performed By: #### TSH, LIPID, CMP ####[facility] [address] [place], [place] [address]Dr. Yilan ChangEGFR-NON AF DJIBOUTIAN>60Normal>=60The [facility] HospitalComment on above:Performed By: #### TSH, LIPID, CMP ####[facility] [address] [place], [place] [address]Dr. Lui ChangGlobulin (S) [Mass/Vol]3.3 g/dLNormalThe [facility] HospitalComment on above:Performed By: #### TSH, LIPID, CMP ####[facility] [address] [place], [place] [address]Dr. Yilan ChangGlucose [Mass/Vol]93 mg/sOSckyiw50-257Tri [facility] on above:Performed By: #### TSH, LIPID, CMP ####[facility] [address] [place], [place] [address]Dr. Yilan ChangPotassium [Moles/Vol]3.9 mmol/LNormal3.5-5.1The [facility] Hospitalment on above:Performed By: #### TSH, LIPID, CMP ####[facility] [address]ildeajmsn[address] [place], [place] [address]Dr. Yilan ChangProtein [Mass/Vol]7.4 g/dLNormal6.4-8.2The [facility] Comment on above:Performed By: #### TSH, LIPID, CMP ####[facility] [address] [place], [place] [address]Dr. Yilan ChangSodium [Moles/Vol]141 mmol/DFcdkmy712-095Qfe [facility] HospitalComment on above: Performed By: #### TSH, LIPID, CMP ####[facility] [address] [address]Dr. Lui ChangUrea nitrogen [Mass/Vol]8.0 mg/dL Normal7.0-18.0[facility] HospitalComment on above:Performed By: #### TSH, LIPID, CMP ####[facility] [address] [address]Dr. Lui ChangUrea nitrogen/Creatinine [Mass ratio]9.5 mg/mgNormalThGalion HospitalComment on above:Performed By: #### TSH, LIPID, CMP ####[facility] [address] [address]Dr. Lui AmesHon 54-03-2974LOZ7.539 uIU/mLNormal0.358-3.740The [facility] Comment on above:Performed By: #### TSH, LIPID, CMP ####[facility] [address] [address]Dr. Lui Fonseca Vital Signs Date TimeVital SignValuePerforming KuooraghsYsidadpr23-62-2225 08:00-0400Body hatbhz701.5 cmSis Irby MD Work Phone: [facility] HospitalEvepamsnvh61-31-5068 08:00-0400Body mass index (BMI) [Ratio]29.81 kg/h5MqfuvwcSis Irby MD Work Phone: [facility] HospitalNdmnhhudjy17-55-6278 08:00-0400Body gncybl25.94 kgSis Irby MD Work Phone: [facility] HospitalLoylrwgmid28-71-1444 08:00-0400Diastolic blood ltfeltiy41 mm[Hg]Sis Irby MD Work Phone: [facility] HospitalXpuqmtcxsl71-80-8292 08:00-0400Heart rate81 /min Sis Irby MD Work Phone: [facility] HospitalGonbgbomvg32-15-5756 08:00-0400Systolic blood eobxsvsp555 mm[Hg]Sis Irby MD Work Phone: [facility] HospitalPwgrppithz44-04-6086 09:04-0400Body zdahxz418.5 cmSis Irby MD Work Phone: [facility] HospitalWrwxrkcknl20-74-4172 09:04-0400Body mass index (BMI) [Ratio]30.54 kg/f3McbppqnSis Irby MD Work Phone: [facility] HospitalZfrbvxiwjp08-85-1581 09:04-0400Body dsrnxu59.75 kgSis Irby MD Work Phone: [facility] HospitalCftmyaefbg66-56-3368 09:04-0400Diastolic blood fhpytnns87 mm[Hg]Sis Irby MD Work Phone: [facility] HospitalAffulkgzxt58-96-1782 09:04-0400Systolic blood uvnrecwh956 mm[Hg]Sis Irby MD Work Phone: [facility] HospitalMrovmoaxms23-82-1119 16:09-0400Body uvozog563.5 cmTed Laurie MCMILLAN Work Phone: [phone]06-11-2025 16:09-0400Body mass index (BMI) [Ratio]29.84 kg/m2Ted Laurie MCMILLAN Work Phone: [phone]06-11-2025 16:09-0400Body kg David Sullivan MD Work Phone: [phone]06-11-2025 16:09-0400Diastolic blood nqgllful86 mm[Hg]David Sullivan MD Work Phone: [phone]06-11-2025 16:09-0400Heart voso681 /minDavid Sullivan MD Work Phone: [phone]06-11-2025 16:09-8425FtU4% (BldA) [Mass fraction]99 %David Sullivan MD Work Phone: [phone]06-11-2025 16:09-0400Systolic blood okewoohp682 mm[Hg]David Sullivan MD Work Phone: [facility]06-04-2025 15:46-0400Body .48 cmFiliberto Obrien MD Work Phone: [phone]06-04-2025 15:46-0400 Body mass index (BMI) [Ratio]30 kg/s8OynqfxmFiliberto Obrien MD Work Phone: [phone])[address] [place], [place] 3156106-04-2025 15:46-0400 Body .5 kgFiliberto Obrien MD Work Phone: 1(630)[address] [place], [place] 3156106-04-2025 15:46-0400 Diastolic blood cjevxckr87 mm[Hg]Filiberto Obrien MD Work Phone: 1(705)[address] [place], [place] 3156106-04-2025 15:46-0400 Heart rate88 /Jluis Obrien MD Work Phone: 1(452)[address] [place], [place] 3156106-04-2025 15:46-0400 SaO2% (BldA) [Mass fraction]99 %Filiberto Obrien MD Work Phone: [phone])[address] [place], [place] 3156106-04-2025 15:46-0400 Systolic blood ihkppwmr481 mm[Hg]Filiberto Obrien MD Work Phone: 1(443)[address] [place], [place] 3156104-30-2025 08:59-0400 Diastolic blood uftkdthn02 mm[Hg]Filiberto Obrien MD Work Phone: 1(186)[address] [place], [place] 3156104-30-2025 08:59-0400 Heart rate85 /Jluis Obrien MD Work Phone: 1(653)[address] [place], [place] 3156104-30-2025 08:59-0400 Respiratory rate18 /Jluis Obrien MD Work Phone: 1([phone])[address] [place], [place] 3156104-30-2025 08:59-0400 SaO2% (BldA) [Mass fraction]98 %Filiberto Obrien MD Work Phone: 1(058)[address] [place], [place] 3156104-30-2025 08:59-0400 Systolic blood bsdlgwix747 mm[Hg]Filiberto Obrien MD Work Phone: 1(981)483-[address] [place], [place] 4335904-30-2025 05:05-0400 Body .48 cmFiliberto Obrien MD Work Phone: 1(583)730-[address] [place], [place] 433[address]04-30-2025 05:05-0400 Body .1 [degF]Filiberto Obrien MD Work Phone: [phone]04-30-2025 05:05-0400 Body gqybrp01.55 kgFiliberto Obrien MD Work Phone: 1(181)483-[address] [place], [place] 4335903-14-2025 10:43-0400 Diastolic blood yelklfvm27 mm[Hg]Filiberto Obrien MD Work Phone: 1(668)[address]03-14-2025 10:43-0400 Heart rate72 /Jluis Obrien MD Work Phone: 1(710)[address]03-14-2025 10:43-0400 Respiratory rate18 /Jluis Obrien MD Work Phone: 1(425)[address] [place], [place] 3156103-14-2025 10:43-0400 SaO2% (BldA) [Mass fraction]99 %Filiberto Obrien MD Work Phone: 1(433)[facility]-[address] [place], [place] 4335903-14-2025 10:43-0400 Systolic blood xmqxmbta228 mm[Hg]Filiberto Obrien MD Work Phone: 1(889)[address] [place], [place] 3156103-14-2025 09:25-0400 Body amfivfrtvla98.2 [degF]Filiberto Obrien MD Work Phone: 1(130)483-[address] [place], [place] 4335903-14-2025 07:49-0400 Body .48 cmFiliberto Obrien MD Work Phone: 1(420)720-[address] [place], [place] 4335903-14-2025 07:49-0400 Body mwakgs89.25 kgFiliberto Obrien MD Work Phone: 1(264)230-[address] [place], [place] 4335903-12-2025 16:17-0400 Body akwjbg852.5 Heidy Sullivan MD Work Phone: [facility]03-12-2025 16:17-0400Body mass index (BMI) [Ratio]30.24 kg/m2David Sullivan MD Work Phone: [facility]03-12-2025 16:17-0400Body kg David Sullivan MD Work Phone: [facility]03-12-2025 16:17-0400Diastolic blood dbgsigsu65 mm[Hg]David Sullivan MD Work Phone: [facility]03-12-2025 16:17-0400Heart tqxs978 /minDavid Sullivan MD Work Phone: [facility]03-12-2025 16:17-2323ZfC2% (BldA) [Mass fraction]98 %David Sullivan MD Work Phone: [facility]03-12-2025 16:17-0400Systolic blood wtmknysq229 mm[Hg]David Sullivan MD Work Phone: [facility]01-30-2025 20:00-0500Diastolic blood olgdgnoj33 mm[Hg]Filiberto Obrien MD Work Phone: 1(154)120-[address] [place], [place] 4335901-30-2025 20:00-0500 Heart rate67 /Jluis Obrien MD Work Phone: 1(597)968-[address] [place], [place] 4335901-30-2025 20:00-0500 Respiratory rate24 /Jluis Obrien MD Work Phone: [phone])[address]01-30-2025 20:00-0500 SaO2% (BldA) [Mass fraction]99 %Filiberto Obrien MD Work Phone: [facility]01-30-2025 20:00-0500 Systolic blood baejtelu229 mm[Hg]Filiberto Obrien MD Work Phone: 1([phone])[address]01-30-2025 13:52-0500 Body soxhqd357.48 cmDodavion Obrien MD Work Phone: [facility]01-30-2025 13:52-0500 Body fwvfcefucso18.1 [degF]Filiberto Obrien MD Work Phone: [phone])[address] [place], [place] 3156101-30-2025 13:52-0500 Body ygltgv52 kgFiliberto Obrien MD Work Phone: 1(419)[address] [place], [place] 3156101-28-2025 10:04-0500 Diastolic blood xkbvelcx03 mm[Hg]Filiberto Obrien MD Work Phone: 1(419)[address] [place], [place] 3156101-28-2025 10:04-0500 Heart rate85 /Jluis Obrien MD Work Phone: 1(419)[address] [place], [place] 3156101-28-2025 10:04-0500 Respiratory rate20 /Jluis Obrien MD Work Phone: 1(419)[address] [place], [place] 3156101-28-2025 10:04-0500 SaO2% (BldA) [Mass fraction]100 %Filiberto Obrien MD Work Phone: [phone])[address] [place], [place] 3156101-28-2025 10:04-0500 Systolic blood gssndkzy953 mm[Hg]Filiberto Obrien MD Work Phone: [phone])[address] [place], [place] 3156101-28-2025 09:19-0500 Body lfeqchjeftb63 [degF]Filiberto Obrien MD Work Phone: 1(088)[address] [place], [place] 3156101-28-2025 09:19-0500 Inhaled oxygen flow rate6 L/Jluis Obrien MD Work Phone: 1(737)[address] [place], [place] 3156101-28-2025 06:55-0500 Body cfvtyr392.48 cmFiliberto Obrien MD Work Phone: 1(790)[address] [place], [place] 3156101-28-2025 06:55-0500 Body ktywlt10 kgFiliberto Obrien MD Work Phone: 1(034)[address] [place], [place] 3156109-11-2024 13:48-0400 Body rpjeye103.5 cmTed Laurie MCMILLAN Work Phone: [facility]09-11-2024 13:48-0400Body mass index (BMI) [Ratio]28.43 kg/m2David Sullivan MD Work Phone: [facility]09-11-2024 13:48-0400Body dwfxie16.5 kgDavid Sullivan MD Work Phone: [facility]09-11-2024 13:48-0400Diastolic blood mm[Hg]David Sullivan MD Work Phone: [facility]09-11-2024 13:48-0400Heart rate91 /min David Sullivan MD Work Phone: [facility]09-11-2024 13:48-0400Systolic blood ubacdrps536 mm[Hg]David Sullivan MD Work Phone: [facility]06-12-2024 10:14-0400Body idhhjn790.5 Heidy Sullivan MD Work Phone: [facility]06-12-2024 10:14-0400Body mass index (BMI) [Ratio]27.82 kg/m2David Sullivan MD Work Phone: [facility]06-12-2024 10:14-0400Body ibgmnl91 kg David Sullivan MD Work Phone: [facility]06-12-2024 10:14-0400Diastolic blood olmykqew62 mm[Hg]David Sullivan MD Work Phone: [facility]06-12-2024 10:14-0400Heart rate84 /min David Sullivan MD Work Phone: [facility]06-12-2024 10:14-0400Systolic blood xzmdbwon922 mm[Hg]David Sullivan MD Work Phone: [facility]05-03-2024 08:12-0400Body vkobba494.5 Heidy Sullivan MD Work Phone: [facility]05-03-2024 08:12-0400Body mass index (BMI) [Ratio]27.58 kg/m2David Sullivan MD Work Phone: [facility]05-03-2024 08:12-0400Body faafrn53.4 kgDavid Sullivan MD Work Phone: [facility]05-03-2024 08:12-0400Diastolic blood wmkiqgep22 mm[Hg]David Sullivan MD Work Phone: [facility]05-03-2024 08:12-0400Heart rate84 /min David Sullivan MD Work Phone: [facility]05-03-2024 08:12-6164KaA9% (BldA) [Mass fraction]99 %David Sullivan MD Work Phone: [facility]05-03-2024 08:12-0400Systolic blood tlivuawu192 mm[Hg]David Sullivan MD Work Phone: [facility]12-26-2023 12:15-0500Diastolic blood priojqrp27 mm[Hg]MD Filiberto Obrien Work Phone: 1(659)[address]12-26-2023 12:15-0500 Heart rate86 /minMD Filiberto Obrien Work Phone: 1(432)[address]12-26-2023 12:15-0500 Respiratory rate16 /minMD Filiberto Obrien Work Phone: 1(868)[address] [place], [place] 3156112-26-2023 12:15-0500 SaO2% (BldA) [Mass fraction]100 %MD Filiberto Obrien Work Phone: 1(794)[address] [place], [place] 3156112-26-2023 12:15-0500 Systolic blood ojugppev352 mm[Hg]MD Filiberto Obrien Work Phone: 1(331)[address] [place], [place] 3156112-26-2023 11:10-0500 Inhaled oxygen flow rate6 L/minMD Filiberto Obrien Work Phone: 1(821)[address] [place], [place] 3156112-26-2023 10:55-0500 Body asfwopughkt08.1 [degF]MD Filiberto Obrien Work Phone: 1(058)[address]12-26-2023 09:30-0500 Body mass index (BMI) [Ratio]25.8 kg/m2MD Filiberto Obrien Work Phone: 1(785)[address] [place], [place] 3156112-26-2023 08:55-0500 Body .48 cmMD Filiberto Obrien Work Phone: [phone])[address] [place], [place] 3156112-26-2023 08:55-0500 Body ilfxwy94 kg Filiberto Franty Work Phone: [phone])[address] [place], [place] 3156111-16-2023 12:08-0500 Body ewvszcdeiaj99.2 [degF]MD Filiberto Obrien Work Phone: 1(419)[address] [place], [place] 3156111-16-2023 12:08-0500 Diastolic blood ejxewfng20 mm[Hg]MD Filiberto Obrien Work Phone: 1(419)[address] [place], [place] 3156111-16-2023 12:08-0500 Heart rate87 /minMD Filiberto Petersty Work Phone: [phone])[address] [place], [place] 3156111-16-2023 12:08-0500 Respiratory rate18 /minMD Filiberto Obrien Work Phone: 1(419)[address] [place], [place] 3156111-16-2023 12:08-0500 SaO2% (BldA) [Mass fraction]100 %MD Filiberto Obrien Work Phone: 1(419)[address] [place], [place] 3156111-16-2023 12:08-0500 Systolic blood ixnrmoft458 mm[Hg]MD Filiberto Obrien Work Phone: [phone])[address] [place], [place] 3156108-25-2023 09:35-0400 Body lbuewd677.5 cmKyle Bernarda EXCELSIOR MACHINE TENDER.COVERING MACHINE OPERATOR Work Phone: [facility] HospitalDfxhyi46-23-6114 09:35-0400Body .31 kgKyle Bernarda EXCELSIOR MACHINE TENDER.COVERING MACHINE OPERATOR Work Phone: [place] Mbwohr71-73-9530 09:35-0400Diastolic blood suyddgei94 mm[Hg]Robert Bernarda EXCELSIOR MACHINE TENDER.COVERING MACHINE OPERATOR Work Phone: [place] Aajrzh02-48-4852 09:35-0400Heart lfri594 /minKyle Bernarda EXCELSIOR MACHINE TENDER.COVERING MACHINE OPERATOR Work Phone: [phone] Mlnsmj93-43-7765 09:35-9294JwR7% (BldA) [Mass fraction]93 %Robert Menchaca EXCELSIOR MACHINE TENDER.COVERING MACHINE OPERATOR Work Phone: [phone] Bzaxnw75-34-1972 09:35-0400Systolic blood kwevlijj189 mm[Hg]Robert Menchaca EXCELSIOR MACHINE TENDER.COVERING MACHINE OPERATOR Work Phone: [phone] HospitalOchgeh69-13-2423 14:14-0400Diastolic blood dueovxrx02 mm[Hg]MD Filiberto Obrien Work Phone: 1([phone])[address]06-05-2023 14:14-0400 Heart dlgj753 /minMD Filiberto Obrien Work Phone: 1(220)[address] [place], [place] 3156106-05-2023 14:14-0400 Systolic blood qrtacqfp864 mm[Hg]MD Filiberto Obrien Work Phone: 1(017)[address] [place], [place] 3156106-05-2023 13:50-0400 SaO2% (BldA) [Mass fraction]99 %MD Filiberto Obrien Work Phone: 1(059)[address]05-03-2023 10:01-0400 Diastolic blood rlcusjpb00 mm[Hg]Filiberto Petersy Work Phone: 1([phone] [place] [address] [facility] [address] DO Work Phone: 1(753)956-18459-738931-29289570-72-9103 10:01-0400Diastolic blood rqhmchay62 mm[Hg] Filiberto Enriquez Hoy Work Phone: [phone] [facility] [address] DO Work Phone: 1(334) 143-499805-03-2023 10:01-0400Diastolic blood micwqvga82 mm[Hg] Filiberto Enriquez Hoy Work Phone: [phone]-Igpsh [facility] DO Work Phone: [phone] 10:01-0400Systolic blood isjttskq448 mm[Hg] Filiberto Enriquez Hoy Work Phone: [phone]-Fxays [facility] 250 DO Work Phone: [phone] 10:01-0400Systolic blood qciyxrzk088 mm[Hg] Filiberto M Hoy Work Phone: [phone]-Mgbpj [facility] 250 DO Work Phone: [phone] 09:59-0400Body hpaqry497.48 cmDouglas M Hoy Work Phone: [phone]-Wbfux [facility] 250 DO Work Phone: [phone] 09:59-0400Body mass index (BMI) [Ratio] 30.36 kg/h7Diaeqte M Hoy Work Phone: [phone]-Qmsja [facility] 250 DO Work Phone: [phone] 09:59-0400Body surface area Derived from formula1.77 j4Xiwzqgf M Hoy Work Phone: [phone]-Kdeci [facility] DO Work Phone: [phone] 09:59-0400Body vofrdt46.3 kgDouglas Zoe Hoy Work Phone: [phone]-Vwunb [facility] 250 DO Work Phone: [phone] 09:59-0400Diastolic blood xotlcvbq15 mm[Hg] Filiberto M Hoy Work Phone: [phone]-Ihmtd [facility] 250 DO Work Phone: [phone] 09:59-0400Heart rate85 /minDouglas M Hoy Work Phone: [phone]-Qrhpq [facility] DO Work Phone: [phone] 09:59-0400Systolic blood etxegnid031 mm[Hg] Filiberto M Hoy Work Phone: [phone]-Hnizw [facility] 250 DO Work Phone: [phone] 13:01-0500Body jtxbco525.5 Andreina Limon APRN.ZULMA Work Phone: [phone] Qaitlb03-90-5675 13:01-0500Body temperature 97.81 [degF]Nayely Limon EXCELSIOR MACHINE TENDER.COVERING MACHINE OPERATOR Work Phone: [phone] Oyglrh52-51-0503 13:01-0500Body .11 kgSomirta Limon EXCELSIOR MACHINE TENDER.COVERING MACHINE OPERATOR Work Phone: [phone] Jvmpfw95-79-6914 13:01-0500Diastolic blood ifxhurdk94 mm[Hg]Nayely Limon EXCELSIOR MACHINE TENDER.COVERING MACHINE OPERATOR Work Phone: [phone] Ynmixx35-60-0987 13:01-0500Heart rate85 /min Nayely Limon EXCELSIOR MACHINE TENDER.COVERING MACHINE OPERATOR Work Phone: [phone] Iuwcta07-73-9027 13:01-0500Systolic blood mm[Hg]Nayely Limon EXCELSIOR MACHINE TENDER.COVERING MACHINE OPERATOR Work Phone: [phone] Encounters Encounter DateEncounter TypeCare ProviderFacilityStart: 03-30-2025 End: 12-61-8641uynoujutilUwbjwzg ManonFacility:[facility] Start: 03-30-2025 End: 43-11-1398Creoaudy Rosibel Cheung BROOM WORKER-C-LAB [facility] [place] Start: 03-23-2025 End: 97-26-4524TamvecPnqfikh W Bauer MD Work Phone: [facility] 210Comment on above: Intractable chronic migraine without aura and with status migrainosusStart: 03-02-2025 End: 75-58-0185UjfcimGuvedrc W Bauer MD [facility] Phone: [facility] 210Comment on above: Intractable chronic migraine without aura and with status migrainosus (Primary Dx)Start: 02-23-2025 End: 05-41-7688thnzfzrfkaSZG WEISSFELDFacility:[facility]art: 01-28-2025 End: 04-82-9179Monaow flowsheetBan Bedolla MD Work Phone: noMS [facility] DermatologyStart: 01-28-2025 End: 55-31-0533Vhwxxr flowsheetBan Bedolla MD Work Phone: noms [facility]ermatologyStart: 01-28-2025 End: 56-61-1558Addeur outpatient visit 25 minutesEmily Chan Bedolla MD Work Phone: NOMS [facility] DermatologyComment on above:Other rosacea (Primary Dx); Cellulitis of left thumbStart: 01-28-2025 End: 70-36-2348thlowmbipiETJLC A PETITTINot AvailableStart: 01-21-2025 End: 04-87-5037Qsngrkeliel Irby MD Work Phone: noms NEUROLOGYStart: 01-21-2025 End: 89-74-0501Jdvgiceliel Irby MD Work Phone: noms NEUROLOGYStart: 01-21-2025 End: 37-10-0075Damwso outpatient visit 15 minutesEmily Chan Bedolla MD Work Phone: noOR [facility] DermatologyComment on above:Cellulitis of left thumb (Primary Dx)Start: 01-21-2025 End: 89-21-1234Ggvpby OnlyEmronald Bedolla MD Work Phone: noOR External Department UnsolicitedStart: 01-21-2025 End: 06-62-1323ghoguxuqzfKNKHY A PETITTINot AvailableStart: 01-21-2025 End: 21-28-8975Qvdnfl outpatient visit 25 minutesSis Irby MD Work Phone: [facility] NeurologyComment on above:RLS (restless legs syndrome) (Primary Dx); Cervical dystonia; Cervicogenic headache; Intractable chronic migraine without aura and with status migrainosusStart: 01-21-2025 End: 83-48-5289ltslbjlrhiLNNOLDA W BAUERNot AvailableStart: 11-27-2024 End: 52-49-3184ufgwzkrwwlSGRNVUC W BAUERNot AvailableStart: 11-25-2024 End: 41-58-2219Vapibb Tom Bedolla MD Work Phone: NOMS SWS DERMStart: 11-25-2024 End: 24-69-0906Pexqgz Tom Bedolla MD Work Phone: NOMS SWS DERMStart: 11-25-2024 End: 39-40-3783Ywotyz outpatient visit 15 minutesEmily Chan Bedolla MD Work Phone: NOMS SWS DERMComment on above:Other rosacea (Primary Dx); Inflamed skin tagStart: 11-25-2024 End: 58-18-6381hzvywrhmiqXVXLW A PETSHERIEINot AvailableStart: 11-20-2024 End: 80-46-8772Xocept Odalis Irby MD Work Phone: noms BM NEUROLOGYStart: 11-20-2024 End: 89-44-7697Sgmayy Odalis Irby MD Work Phone: noms BM NEUROLOGYStart: 11-20-2024 End: 43-52-2829Bsypbm outpatient new 45 minutesSis Irby MD Work Phone: noms SWS NEURComment on above:Cervical dystonia (Primary Dx); RLS (restless legs syndrome)Start: 11-20-2024 End: 22-88-5765yvlahstrjgOFKHNGV W BAUERNot AvailableStart: 11-11-2024 End: 27-57-5125Pkfozieliel Bedolla MD Work Phone: NOMS SWS DERMStart: 11-11-2024 End: 74-28-3625Jjalhmmoris Bedolla MD Work Phone: NOMS SWS DERMStart: 11-11-2024 End: 48-89-5403Iyuoqu outpatient visit 25 minutesEmronald Bedolla MD Work Phone: NOMS SWS DERMComment on above:Other rosacea (Primary Dx)Start: 11-11-2024 End: 37-37-9566kqpgjuviurVTYUR A PETITTINot AvailableStart: 10-29-2024 End: 62-66-3614Bncjlfi encounter procedureTed Laurie MCMILLAN Work Phone: NeurologyComment on above:Chronic migraine without aura, with intractable migraine, so stated, with status migrainosus (Primary Dx); Neck painStart: 10-29-2024 End: 30-73-3255egrpupgmblCKM LAURIEFacility:[facility] HospitalStart: 10-22-2024 End: 31-59-9977ihpjflgtcvXnnexic M Hoy MD Work Phone: [facility] Work Phone: Start: 10-22-2024 End: 16-23-4903Asvvvle encounter procedureFiliberto Obrien MD Work Phone: [facility] Work Phone: Start: 09-17-2024 End: 61-59-7272Otjpdcrwq department patient visitFiliberto Obrien MD Work Phone: [facility] Ctr-Emergency Room Work Phone: Start: 08-01-2024 End: 75-38-8882Eqghsirke department patient visitFiliberto Obrien MD Work Phone: [facility]-Emergency Room Work Phone: Start: 07-30-2024 End: 49-11-5927fxmjtaekdgOVK LAURIEFacility:[facility] Northtart: 07-30-2024 End: 94-67-5973Ymswlcn encounter procedureTed Laurie MCMILLAN Work Phone: NeurologyComment on above:Chronic migraine without aura, with intractable migraine, so stated, with status migrainosus (Primary Dx); Neck painStart: 07-17-2024 End: 48-25-4373vskuakahvkTve Weissfeld MD Work Phone: NeurologyComment on above:Sooner apptStart: 06-23-2024 End: 40-34-6907Hfxlmj follow up visit related to original Ana Rosa Pyle DO Work Phone: [facility] GENSComment on above:Fibroadenoma of breast, right (Primary Dx)Start: 06-23-2024 End: 52-42-6088fvyrwojnwyGDEPGKA H ITZKOWITZNot AvailableStart: 06-19-2024 End: 24-45-1817Nbfjunsna department patient visitFiliberto Obrien MD Work Phone: [facility] Ctr-Emergency Room Work Phone: Start: 06-17-2024 End: 77-67-0494Lletkjexi to same day surgery centerFiliberto Obrien MD Work Phone: [facility] Ctr-[facility] CampusStart: 06-17-2024 End: 10-94-6048abcaukpuywTwnoonl M Hoy MD Work Phone: [facility] Work Phone: Start: 06-10-2024 End: 57-86-9814Xfufszhw ReferredFiliberto Obrien MD Work Phone: [facility] Cpk-Cbh-Mlhwczyx Testing Work Phone: Start: 06-10-2024 End: 60-67-5443Zybldgo encounter procedureFiliberto Obrien MD Work Phone: [facility] Pjn-Ate-Onkkhltq Testing Work Phone: Start: 06-10-2024 End: 13-00-5596usojcybaesHhksnpm M Hoy MD Work Phone: [facility] Ctr Work Phone: Start: 02-18-2024 End: 50-01-8845jouggkmzmzGeucxiaDesirae Bauman MDFacility:[facility] [place] Start: 01-30-2024 End: 50-65-8458Ubqgkds encounter procedureTed Laurie MCMILLAN Work Phone: NeurologyComment on above:Chronic migraine without aura, with intractable migraine, so stated, with status migrainosus (Primary Dx); Neck painStart: 01-28-2024 End: 29-31-3448wxdwqzrivzYR Filiberto Obrien Work Phone: [facility] Ctr Work Phone: Start: 01-28-2024 End: 56-21-3783Juqnyvl encounter procedureMD Filiberto Obrien Work Phone: [facility] Ctr-Ultrasound Cntr for Breast CarStart: 23-55-0545gbtptzecxpLgk ProviderNeurologyComment on above: PaperworkStart: 23-75-4057S-mail encounter [facility] ProviderNeurology Start: 23-60-8706Rrrbsfxrh encounterTed Laurie MCMILLAN Work Phone: NeurologyComment on above:AppointmentStart: 10-31-2023 End: 26-65-5339Iphqyzm encounter procedureTed Laurie MCMILLAN Work Phone: NeurologyComment on above:Chronic migraine without aura, with intractable migraine, so stated, with status migrainosus (Primary Dx); Neck painStart: 65-58-0148ZF Get Medical AdviceRobert Menchaca APRN.CNP Work Phone: NeurologyComment on above:Med refillRefill Request Start: 45-23-0043Tudenmmwg encounterTed Laurie MCMILLAN Work Phone: NeurologyComment on above:Insurance Authorization (Botox)Start: 43-28-6025cfqferurhiTkspPedro Menchaca APRN.CNP Work Phone: NeurologyComment on above:FmlaStart: 09-21-2023 Telephone encounterTed Laurie MCMILLAN Work Phone: NeurologyComment on above:Request Outside Medical RecordsStart: 09-21-2023 End: 24-99-1929Dcnluti encounter procedureTed Laurie MCMILLAN Work Phone: NeurologyComment on above:Chronic migraine without aura, with intractable migraine, so stated, with status migrainosus (Primary Dx); Neck pain; RLS (restless legs syndrome)Start: 47-58-4587AptqyoXfpr Shannon APRN.COVERING MACHINE OPERATOR Work Phone: NeurologyComment on above:Refill RequestStart: 09-04-2023 End: 09-20-8765ywbeqmhxhaSfcl Shannon APRN.COVERING MACHINE OPERATOR Work Phone: NeurologyComment on above:Cervical dystonia (Primary Dx)Start: 09-04-2023 End: 73-97-1351Jcndbapfgxss consultation with Xuan Menchaca APRN.CNP Work Phone: [facility] MAINStart: 56-78-6106B-mail encounter from Ashu Menchaca APRN.CNP Work Phone: NeurologyStart: 80-30-0116Hrkelpc encounter procedure Robert Menchaca APRN.CNP Work Phone: NeurologyComment on above:appointmentStart: 05-15-2023 End: 15-34-4973Wulwenreu to same day surgery centerMD Filiberto Obrien Work Phone: [facility]-Surgery Center Main CampusStart: 05-15-2023 End: 05-23-3152vylqgjfbjuRZ Filiberto M Stepan Work Phone: [facility] Work Phone: Start: 05-01-2023 End: 96-10-8621nengfuydqjUR Filiberto M Hoy Work Phone: [facility] Work Phone: Start: 05-01-2023 End: 60-95-0900Tuebhci encounter procedureMD Filiberto Obrien Work Phone: [facility]-Pre-Surgical Testing Work Phone: Start: 04-05-2023 End: 71-14-4486Edhneujgr to same day surgery centerMD Filiberto Obrien Work Phone: [facility] Ctr-Ultrasound Cntr for Breast CarStart: 04-05-2023 End: 94-66-3525brrujkpihiTO Filiberto Obrien Work Phone: [facility] Ctr Work Phone: Start: 70-81-2015Enbjaqfyw encounterKyle Bernarda PATRICION.COVERING MACHINE OPERATOR Work Phone: NeurologyComment on above:Results ([facility] )Start: 04-88-3091Yeyadeapy encounterKyle Bernarda PATRICION.COVERING MACHINE OPERATOR Work Phone: NeurologyComment on above:Results ([facility] )Start: 02-07-2023 End: 30-70-8603ucphkvvxjqPG Filiberto Obrien Work Phone: [facility] Ctr Work Phone: Start: 02-07-2023 End: 74-02-5719Edrehzd encounter procedureMD Filiberto Obrien Work Phone: [facility] Ctr-Lab Main [place] Work Phone: Start: 82-05-9772Qqasjb OnlyKyelisa Menchaca APRN.COVERING MACHINE OPERATOR Work Phone: NeurologyStart: 36-52-4699bejcipewobLcve Bernarda MUKHERJEE.COVERING MACHINE OPERATOR Work Phone: NeurologyComment on above:Labs and rxStart: 01-12-2023 End: 04-58-8042Dgytbuz encounter procedureKyle Bernarda PATRICION.COVERING MACHINE OPERATOR Work Phone: NeurologyComment on above:Cervical dystonia (Primary Dx); Neck tightness; RLS (restless legs syndrome)Start: 58-86-1739Zdmya UpdateDtiffanienidhi Obrien Work Phone: [phone]-Enpdw [facility] DO Work Phone: Start: 12-81-3734ksmmqlwcmdUf. Soraya Cage Facility:[id number]: 09-45-2223xnngayhuoxYnak QuanFacility:[id number]: 11-10-2022 FUV, Provider: Saeed Castellanos, Status: Pen, Time: 8:50 AMDouglas M Hoy Work Phone: [facility] Work Phone: Start: 59-31-0860dnjmsyqaeyZy. Saeed Castellanos Facility:[id number]: 78-42-9337actotnkrutHh. Saeed Parada II Facility:[id number]: 67-76-7201amvgphmaahLv. Saeed CastellanosFacility: Start: 10-23-2022 End: 50-12-9779mcxzovfndbOV Filiberto M Hoy Work Phone: [facility] Ctr Work Phone: Start: 10-23-2022 End: 67-63-0312Uunulgz encounter procedureMD Filiberto Hoy Work Phone: [facility] Ctr-Electrodiagnostics Work Phone: Start: 70-05-8358oxxkpngqlbAwtdqlo Traboulkymberlyi Facility:[id number]: 10-12-2022 End: 75-78-3413Xreldes encounter procedureMD Filiberto Hoy Work Phone: [facility] Ctr-Center for Breast Care Work Phone: Start: 30-67-4941ecuwdoudarIW FILIBERTO HOY .Facility: Start: 46-88-2024YGRYS MONI, Provider: [employer] YOUNG [employer] BOAT CAPTAIN 1,[id number], Status: Pen, Time: 1:00 PMDouglas M Hoy Work Phone: [phone]-Vdpuq [facility] 250 DO Work Phone: Start: 03-96-4620Itadlbf encounter procedureDouglas M Hoy Work Phone: [phone]-Rimcs [facility] DO Work Phone: Start: 49-71-2378ygnwznylqeHw. Saeed Castellanos Facility:[id number]: 51-92-7059Ggkdah consultation new/estab patient 60 min Filiberto Obrien Work Phone: [phone]-Nboaj [facility] 250 DO Work Phone: Start: 97-75-0556lrfbjiiokhQz. Saeed Castellanos Facility:[id number]: 08-11-2022 End: 80-78-9228hoegydwdjhDajntdi Sarkar APRN.COVERING MACHINE OPERATOR Work Phone: RheumatologyComment on above:Neck pain, chronic (Primary Dx); FibromyalgiaStart: 08-11-2022 End: 57-19-6927Hxxqiwdwtxfi consultation with patientScorey Limon APRN.COVERING MACHINE OPERATOR Work Phone: [facility] MAINStart: 07-28-2022 End: 16-77-0469Raaypkrspy hospital visit by physicianXr Main T56VjrtyisveOfwgcnu on above:Neck pain, chronic [M54.2, G89.29]Start: 07-28-2022 End: 31-44-5600Levkpvg encounter procedureSomfarzaneh Limon APRN.COVERING MACHINE OPERATOR Work Phone: RheumatologyComment on above:Neck pain, chronic (Primary Dx)Start: 07-06-2022 End: 31-70-5768rqynamqzihKM CHARISMA S ZAY .Facility:M1Yqfrl: 05-04-2022 ambulatoryDR CHARISMA S COLLAZO .Facility:L0Iumns: 04-06-2022 End: 03-40-2801lbcjmgwghhFD CHARISMA S ZAY .Facility:S1Bvzkm: 03-02-2022 End: 93-22-4460scipfhbvucIAFE SOLIS .Facility:T9Eoqvo: 02-16-2022 End: 26-36-6932kklzsemmkmCO NAVNEET Kirkpatrickcility:R6Jvmcf: 02-16-2022 End: 97-38-9524gxzzobmvpmOK CHARISMA S COLLAZO .Facility:F1Qajny: 01-19-2022 End: 15-62-5334Uoypjof encounter procedureMD Filiberto Obrien Work Phone: [facility] Ctr-Lab Main CampusStart: 01-09-2022 End: 63-72-3405mguhnepnanMR FABY RAYMOND .Facility:C1Gtghc: 26-14-0975Otzrkyzgj for general adult medical examination without abnormal findingsDR FILIBERTO HOY . [facility]: 12-31-2021 End: 42-57-6051xxpebygtwmAF FILIBERTO HOY .Facility:Y8Fylft: 12-31-2021 End: 10-03-6311Uwrzchemr for general adult medical examination without abnormal findingsDR FILIBERTO HOY .Facility:I8Jodey: 11-18-2021 End: 08-93-5526Vjmchlk encounter procedureMD Filiberto Obrien Work Phone: [facility]-MRI Main [place] Procedures DateProcedureProcedure DetailPerforming ClinicianStart: 42-74-1166Uvr bact xcpt urine blood/stool aerobic isolEmily Chan Bedolla MD Work Phone: Start: 88-24-5721AUAAZAOaltj Chan Bedolla MD Work Phone: Start: 76-08-4435XR of abdomen and pelvis without contrastFiliberto Obrien MD Work Phone: Start: 29-10-0744Jnrgo chest X-rayFiliberto Obrien MD Work Phone: Start: 44-24-9307Lbump nucleic acid assayFiliberto Obrien MD Work Phone: Start: 74-17-5829Yguld chest X-rayFiliberto Obrien MD Work Phone: Start: 40-20-0621L-ray of lumbar spine, two or three viewsFiliberto Obrien MD Work Phone: Start: 13-78-4306Vzjjvhepwm of right breastFiliberto Obrien MD Work Phone: Start: 68-69-2752Peqjkaxygqzcefu of right breastMD Filiberto Obrien Work Phone: Start: 45-12-2115Vinsarjmhp of breastMD Filiberto Obrien Work Phone: [phone]: 33-43-4398Isyroevccyv of left breastMD Filiberto Obrien Work Phone: Start: 76-09-2716Otoapmvlpjwspmq of bilateral breasts MD Filiberto Obrien Work Phone: Start: 49-89-1033Nldn needle biopsy of breast using ultrasound guidanceMD Filiberto Obrien Work Phone: [phone]: 35-87-5116YuwagjscrhmwodxbSqdwhde Zoe Obrien Work Phone: Start: 13-90-5885Hgvjtcgms mammographyMD Filiberto Obrien Work Phone: Start: 21-76-1150Qjcbdysbwhmfdvs of bilateral breasts MD Crowderlas Franty Work Phone: Start: 88-04-9179Ttlhk spine cervical 4 or 5 views Nayely Limon APRN.COVERING MACHINE OPERATOR Work Phone: Start: 67-49-5294Hyqouhuala exam chest 2 viewsSomirta Limon APRN.COVERING MACHINE OPERATOR Work Phone: Start: 01-62-7012RMA of headMD Filiberto Obrien Work Phone: CholecystectomyDougxochitl Obrien Work Phone: EsophagogastroduodenoscopyDougxochitl Obrien Work Phone: [phone] Zoe Obrien Work Phone: LaparoscopyDouglas Zoe Obrien Work Phone: Tonsillectomy and adenoidectomyDouglas Zoe Obrien Work Phone: NEGATED: Highlighted row has not occurred!Total colonoscopyDouglas Zoe Obrien Work Phone: Plan of Treatment DateCare ActivityDetailAuthorStart: 09-65-7794Wteps microalbumin profile [facility]: 04-14-2025 End: 82-68-8445Acsuwsu encounter procedureNOMS BCP OBStart: 97-50-4768Culze cultureThe Bellevue Hospitaltart: 79-61-9031Lnbxrmql identified in Urine by CultureUrine [facility]: 03-30-2025 End: 08-65-9129Avqdruj encounter mhitmaanc38/10/2025 8:00 AM EST Office Visit [facility] [address] [place] [address] Sis Irby MD [address] [place] [id number] NOMLeelee Courtney NeurologyStart: 02-18-2025 End: 91-03-3916Hnsonlc encounter kaotjvdch56/01/2025 11:30 AM EDT Office Visit [facility] [address] [place], [phone] Analilia Adorno MD [address] [place] [address] NOMLeelee [facility]ney DermatologyStart: 02-06-2025 End: 73-04-8306Umphmdv encounter procedureNeurologyComment on above:botoxStart: 01-28-2025 End: 53-45-1075Ocbkcvw encounter procedureNOMS [facility]win DermatologyComment on above:ArrivedStart: 01-27-2025 End: 52-06-6318Gudvdxq encounter procedureNOMS SWS DERMStart: 01-21-2025 End: 92-33-5446Jdilfla encounter procedureNOMS SWS NEURComment on above:Arrived Start: 48-42-1885Cuziwaohk vaccinationInfluenza Vaccine (Season Ended)[facility]: 11-27-2024 End: 34-59-8885Kkegnwvyylrx / ancillary services tzgfvsoclx54/10/2025 7:15 AM EDT Ancillary Procedure [facility] MR [address] [place] [address] GZMW SH MRStart: 11-25-2024 End: 42-88-0492Tzbturt encounter procedureNOMS SWS DERMComment on above:Arrived Start: 11-20-2024 End: 69-62-8740FC Cervical spine WO contrastMR cervical spine wo contrast Imaging Routine Cervical dystonia RLS (restless legs syndrome) Expected: 11/20/2024, Expires: 11/20/2025[facility] Work Phone: Comment on above:Expected: 11/20/2024, Expires: 11/20/2025Start: 11-20-2024 End: 04-94-3707Fomszle encounter procedureNOMS SWS NEURComment on above:Arrived Start: 11-11-2024 End: 44-50-7352Fmcidyo encounter ccxoabzce26/24/2025 11:35 AM EDT Office Visit [facility]ER[facility] [address] [place] [address] Ban Bedolla MD [address] [place] [address] ArrivedNOMS SWS DERMComment on above:ArrivedStart: 10-29-2024 End: 69-98-7076Oyxdkeo encounter eoqnjqniv81/11/2025 4:30 PM EDT Office Visit Neurology [address] [place] [phone] David Sullivan MD [address] [place], [place] [phone] F/uhold for botoxNeurologyComment on above:F/u hold for botoxStart: 07-30-2024 End: 26-22-8938Mrtbtpe encounter cbllupehf15/12/2025 4:30 PM EDT Office Visit Neurology [address] [place] [address] David Sullivan MD [address] [place], [place] [id number] BotoxNeurologyComment on above:BotoxStart: 07-29-2024 End: 01-31-8648Ahffzaa encounter xemaiiccg65/11/2025 8:35 AM EDT Office Visit [facility] [address] [place] [phone] Nae VelezLONNY-COVERING MACHINE OPERATOR [address] [place] [address] NOMS SWS DERMStart: 06-17-2024 End: 79-96-1979OrzrqeqomThe [facility] Hospitaltart: 04-30-2024 End: 65-02-9705Hosuyfi encounter nfbgueqcx16/11/2024 8:30 AM EST Office Visit Neurology [address] [place] [address] David Sullivan MD [address] [place], [place] [phone] BotoxNeurologyComment on above:BotoxStart: 01-30-2024 End: 36-17-5112Ipkqnuy encounter xnfhizncz37/11/2024 2:00 PM EDT Office Visit Neurology [address] [place] [address] David Sullivan MD [address] [place], [place] [phone] BotoxNeurologyComment on above:BotoxStart: 28-27-2272Kghyw-19 Vaccine ( season)Covid-19 Vaccine ( season)[facility]: 01-20-2024 Covid-19 Vaccine ( season)Covid-19 Vaccine ( season) [facility]: 75-13-2435Vwrxccdpd vaccinationWestern Reserve Hospitaltart: 11-06-2023 End: 34-87-5367Miehrgu encounter yuxxeedfc60/18/2024 10:30 AM EDT Office Visit Neurology [address] [facility] [place] [place] [id number] David Sullivan MD [address] [place] [address] Three week follow upNeurologyComment on above:Three week follow upStart: 10-31-2023 End: 80-26-3484Xftwhop encounter fomefxhcw52/12/2024 10:30 AM EDT Office Visit Neurology [address] [place] [phone] David Sullivan MD [address] [place], [place] [id number] Botox auth approvedNeurologyComment on above:Botox auth approvedStart: 09-21-2023 End: 60-56-2876Jdieerw encounter uwjvdgmbi77/03/2024 8:30 AM EDT Office Visit Neurology [address] [place] [address] [place] [phone] David Sullivan MD [address] [place] [id number] Cervical dystonia [G24.3]NeurologyComment on above:Cervical dystonia [G24.3] Start: 39-92-2433Dqysdsbecb Health ScreeningBehavioral Health ScreeningWestern Reserve Hospitaltart: 68-56-7169HrmdhwclnThe [facility]vue Hospitaltart: 05-15-2023 [facility]: 08-54-2523HraersicxThe [facility] Hospitaltart: 15-51-2939HCG, Provider: Soraya Cage, Status: Pen, Time: 1:00 PMFUV, Provider: Soraya Cage, Status: Pen, Time: 1:00 PMMP-[facility] [address] DO Work Phone: Start: 59-58-1430Zcpsn-19 Vaccine ( season) Covid-19 Vaccine ( season)[facility]: 73-04-2832Lxrbaylaw vaccinationWestern Reserve Hospitaltart: 01-12-2023 End: 47-22-5003KTO panel - Blood by Automated countCBC Lab Routine RLS (restless legs syndrome) Expected: 01/12/2023, Expires: 03/14/2023[facility] Work Phone: comment on above:Expected: 01/12/2023, Expires: 03/14/2023Start: 01-12-2023 End: 91-98-2729Ujegqzqsf (Vitamin B12) [Mass/volume] in Serum or PlasmaVITAMIN B12 BLOOD Lab Routine RLS (restless legs syndrome) Expected: 01/12/2023, Expires: 03/14/2023[facility] Work Phone: comment on above:Expected: 01/12/2023, Expires: 03/14/2023Start: 01-12-2023 End: 73-98-3130Kkpnsfzskmmxq metabolic 2000 panel - Serum or PlasmaCOMP METABOLIC PANEL Lab Routine RLS (restless legs syndrome) Expected: 01/12/2023, Expires: 03/14/2023[facility] Work Phone: comment on above:Expected: 01/12/2023, Expires: 03/14/2023Start: 01-12-2023 End: 85-26-6335Bnkoatya [Mass/volume] in Serum or PlasmaFERRITIN BLD Lab Routine RLS (restless legs syndrome) Expected: 01/12/2023, Expires: 03/14/2023[facility] Work Phone: comment on above:Expected: 01/12/2023, Expires: 03/14/2023Start: 01-12-2023 End: 31-26-7181Rgfd and Iron binding capacity panel - Serum or PlasmaIRON + TIBC Lab Routine RLS (restless legs syndrome) Expected: 01/12/2023, Expires: 03/14/2023[facility] Work Phone: comment on above:Expected: 01/12/2023, Expires: 03/14/2023Start: 38-57-0138BDIPYAR, Provider: Soraya Cage, Status: Pen, Time: 4:20 PMNPVRFRL, Provider: Soraya Cage, Status: Pen, [facility]: 4:20 [facility]: Start: 75-68-4192DPU, Provider: Saeed Castellanos, Status: Pen, Time: 8:50 AMFUV, Provider: Saeed Castellanos, Status: Pen, Time: 8:50 AMMP-[facility] 250 DO Work Phone: Start: 05-32-9912OVWSRMOON, Provider: Romero Jones, Status: Pen, Time: 2:00 PMSURGNONUH, Provider: Romero Jones, Status: Pen, Time: 2:00 [facility] Work Phone: Start: 38-93-9958RBWYJ EMORY, Provider: MOOKIE YOUNG SHRIMP BOAT CAPTAIN 1,[id number], Status: Pen, Time: 1:00 PMEVENT EMORY, Provider: MOOKIE YOUNG SHRIMP BOAT CAPTAIN 1,[id number], Status: Pen, Time: 1:00 PM[facility] [facility] DO Work Phone: Start: 31-05-1828LOHRHXLANV ASSESSMENTDEPRESSION ASSESSMENTWestern Reserve Hospitaltart: 45-19-4230Espgvxocg vaccinationINFLUENZA (#1) [facility]: 16-28-3862OTW TESTINGHPV TESTINGWestern Reserve Hospitaltart: 09-36-8923Zfkdvzbgm for malignant neoplasm of cervixHPV TestingGrant Hospital Start: 96-61-5987FLG TESTINGPAP TESTINGWestern Reserve Hospitaltart: 01-07-2008 Screening for malignant neoplasm of cervixWestern Reserve Hospitaltart: 2006 Hepatitis B Vaccine (1 of 3 - + 3-dose series)Hepatitis B Vaccine (1 of - + 3-dose series)[facility]: 14-16-7493Hqeedlp ScreeningAnxiety ScreeningWestern Reserve Hospitaltart: 68-00-0424Csnemlsyrv ScreeningDepression ScreeningWestern Reserve Hospitaltart: 12-44-7575XTBBWTRMW C SCREENINGHEPATITIS C SCREENINGWestern Reserve Hospitaltart: 62-15-4564Rkorqslnx C screeningHepatitis C ScreeningWestern Reserve Hospitaltart: 47-06-9502TOT SCREENINGHIV SCREENINGWestern Reserve Hospitaltart: 77-80-4697NFR screeningHIV ScreeningWestern Reserve Hospitaltart: 73-16-5160XYPCU-19 VACCINE (#1)COVID-19 VACCINE (#1)[facility]: 66-98-6636NRCSFTCQQ B (1 of 3 - 3-dose series)HEPATITIS B (1 of 3 - 3-dose series)[facility]: 76-62-9572Krarrhith B Vaccine (1 of 3 - 3-dose series)Hepatitis B Vaccine (1 of 3 - 3-dose series)Grant HospitalAerobic cultureAerobic culture Microbiology Timed Cellulitis of left thumb Release Upon Ordering for 1 Occurrencesstarting 01/21/2025[facility] Work Phone: comment on above:Release Upon Ordering for 1 Occurrences starting 01/21/2025Patient EducationUniversity [facility]als [facility] Work Phone: Patient referralUniversity Hospitals St. [facility] Work Phone: [facility] Immunizations Immunization DateImmunizationNotesCare PsfvczcsFfvojeml85-12-2355yloxeei toxoid, reduced diphtheria toxoid, and acellular pertussis vaccine, adsorbedXr A21 Grant HospitalJcjitu92-53-4266hnkqflk toxoid, reduced diphtheria toxoid, and acellular pertussis vaccine, adsorbedXr Z09YjploqzkrMiami Valley [facility] Payers DatePayer CategoryPayerPolicy [id number] Care HMO (unspecified) [id number]6-59-8216Lkghbff Health Insurance1.2.840.763153.1.13.159.2.7.3.106273.51328-50-3381Yjonaol Health [id number] 2023Medicaid [place] [facility] [place] [facility] MEDICAID [id number] 2022-Present [phone] [facility] [address] [place] [address] Medicaid [id number] 2.16.840.1.283209.3.57[id number] 2.16.840.1.330771.3.57[id number] 2.16.840.1.412283.3.57[id number] 2.16.840.1.025057.3.57[id number] 2.16.840.1.661287.3.57[id number] 2.16.840.1.385290.3.579.2.2[id number] 2.16.840.1.000612.3.579.2.53731-60-4837Cfvebaa5797108 2.16.840.1.112517.3.579.2.13786-86-4434Iqwiyku6430483 2.16.840.1.649828.3.579.[id number] 2.16.840.1.089029.3.579.[id number] 2.16.840.1.913946.3.579.2.67442-82-4042Uztnjio816347976 2.16.840.1.244270.3.579.2.27877-20-3288Wtejmpy830667350 2.16.840.1.852220.3.57[id number] 2.16.840.1.765291.3.57[id number] 2.16.840.1.155664.3.57[id number] 2.16.840.1.544871.3.579.[id number] 2.16.840.1.898627.3.579.2.10149-91-2447Jufyiri773947523 2.16.840.1.371388.3.579.2.05586-91-3435Efxjigy08383888 2.840.1.176691.3.579.2.6[id number] 2.16840.1.297821.3.579.2.300341-10-1104Lguzgfa21980284 2.840.1.696005.3.579.[id number] 2.16.840.1.798365.3.57[id number] 2.840.1.338260.3.579.[id number] 2.16840.1.504237.3.579.2.500966-84-6057Gaaribg37394503 2.16840.1.376393.3.579.2.763015-15-7283Jqvjemm8709029 2.16.840.1.723950.3.579.2.1259 [id number] q1l43f94-798u-0h9e-4899-99wf9837p08uLlywwwj41o4mm48-3806-1c06-7531-4j1v1t8808r5 [id number] 2.16.840.1.5[id number] 2.16.840.1.02630[id number] 2.16.840.1.381932.3.579.2.531 [id number] 2.16.840.1.827949.3.579.2.608Oeckvmr19037454 2.16.840.1.298366.3.579.2.531 Social History DateTypeDetailFacilityStart: 12-24-2020 End: 07-92-3837Ldfckup smoking status NHISNever smoked tobacco (finding) [facility]: 21-78-4437Afc [facility] 06-13-2012 End: 20-45-3680Auholdf use and exposureSmokeless tobacco non-userGrant Hospital Work Phone: Start: 07-28-2022 End: 06-39-4604Rlagnow intakeCurrent non-drinker of alcohol (finding)[facility]: 01-12-2023 End: 26-32-9754Cs caffeine useNo caffeine useWestern Reserve Hospitaltart: 01-12-2023 End: 76-01-9156Bnewecr use panelWestern Reserve Hospitaltart: 87-49-0688Bekvj Depression Screening Ppkfdraylt4Kachxnnsw ClinicStart: 50-45-4516Tsvrnx identity Identifies as female gender (finding)[facility]: 60-26-3055Ulkurz orientationHeterosexual (finding)[facility]: 06-11-2024 End: 32-36-2880GzjJptvlf (finding)[facility]: 06-23-2024 End: 68-74-2062Wsdjszqwe beverage intakeLifetime non-drinker (finding)[facility] HealthcareStart: 83-56-6837Xmpyqee CommentCaffeine: noneNOOR HealthcareStart: 89-00-9659Lcm assigned at birthNot on fileKANE COUNTY HUMAN RESOURCE SSD HealthcareNEGATED: Highlighted rowOhioHealth O'Bleness Hospital Goals DatePatient GoalDesired Activity/State Clinical Notes 02-16-2022 to 02-23-2025 Note Date & CapsJmtzXsvjuvhl49-90-9151 NoteHNO ID: [id number] Author: DAVID SULLIVAN MD Service: ? Author [...] brought in by patient? No Lot #: [id number] Exp: 09/2026 Dilution: 5 units/0.1 ml (100 [...] Optional follow pain # units L R Pattern Setter 10 units divided in 2 sites XXXXXXX [...] week to prevent overuse headache David Sullivan [facility]09-10-2025 History of Present illness Narrative* Ban Bedolla [...] as it can treat both conditions. Start hvbauyyfoft066 mg BID. Recommend patient take medication with [...] 3-4 weeks, follow up documented in this encounterLee's Summit HospitalEiuovexkgt13-29-7547 History of Present illness Narrative* Ban Bedolla [...] 1 - Aerobic culture Account Name: Sherwin Ngeron NPI: Ban Chioma [id number] Cellulitis of left thumb L03.012 Related Medications clindamycin (Cleocin) 300 MG capsule Take 1 capsule by mouth bid x 7 days Next Visit: 1 week documented in this encounterLee's Summit HospitalUnsvyajlcr60-02-7808 History of Present illness Narrative* Sis Irby [...] without success. Forsevere headaches, Valium, diclofenac, and [place] are used. If headaches become too severe, [...] Oral As needed Diclofenac Oral As needed [place] Oral As needed PREVIOUS MEDS: Qulipta Oral [...] in all four extremities, including at least supervisor wound, finger abductors, biceps, triceps, deltoid, toe flexors [...] her current regimen of Valium, diclofenac, and [place]. 2. Sleep disturbances. She experiences significant sleep disturbances, sleeping only 2-4 non- consecutive hours per night, often waking up due to neck pain and discomfort. The dosage of Mirapex will be increased to 3 mg at bedtime to improve sleep quality. The prescription will be sent to [facility] in [place]. 3. RLS and this is worse and [...] treatment. This clinical note was created utilizing [employer] ([employer]) documentation system. All information has beenthoroughly reviewed, corrected as necessary, and authenticated by the provider to ensure accuracy and completeness. On occasion, [employer] ([employer]) documentation system erroneously drops words or replaces aspoken word with a similar sounding word. Please notify with any questions or concerns regarding this clinical note. documented in this encounterLee's Summit HospitalXuiyjxgnfn89-66-9650 History of Present illness Narrative* Ban Bedolla [...] Next Visit: 2 months documented in this encounterLee's Summit HospitalHsudbocepe74-07-6565 History of Present illness Narrative* Sis Irby [...] therapy, muscle relaxers, and Botox injections at [facility] in [place]. The Botox injections have been effective in managing her spasms but have not improved her mobility. Over the past 6 months, her condition has deteriorated, leading her to consider discontinuing the Botox treatment. She [facility] for [facility] for over [...] various medications for her migraines, including Valium, [place], and diclofenac, whichhave provided some relief. 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 Sleep: She reports poor sleep quality, often tossing and turning due to pain. FAMILY HISTORY - Negative for dystonia or stiff neck in family history. MEDICATIONS CURRENT MEDS: Botox Every 90 days Mirapex 1 mg Oral Twice daily Tylenol Oral Motrin Oral Tizanidine Oral Zanaflex Oral PREVIOUS MEDS: Valium Oral [place] Oral Diclofenac Oral Nurtec Ubrelvy Aimovig Imitrex [...] in all four extremities, including at least supervisor wound, finger abductors, biceps, triceps, deltoid, toe flexors [...] 7. This clinical note was created utilizing [employer] (NOOM) documentation system. All information has been thoroughly reviewed, corrected as necessary, and authenticated by the provider to ensure accuracy and completeness. On occasion, [employer] ambient documentation system erroneously drops words or replaces a spoken word with a similar sounding word. Please notify with any questions or concerns regardingthis clinical note. Follow-up The patient will follow up in 8 weeks. documented in this [facility]06-24-2025 History of Present illness Narrative* Ban Bedolla [...] Next Visit: 2 weeks documented in this encounterLee's Summit HospitalXrfuyiuimx69-11-9441 NoteHNO ID: [id number] Author: DAVID SULLIVAN MD Service: ? Author [...] brought in by patient? No Lot #: [id number] Exp: 09/2026 Dilution: 5 units/0.1 ml (100 [...] Optional follow pain # units L R Pattern Setter 10 units divided in 2 sites XXXXXXX [...] Change in Treatment Plan? No David Sullivan [facility] [place]06-11-2025 History of Present illness Narrative* David Sullivan [...] brought in by patient? No Lot #: [id number] Exp: 09/2026 Dilution: 5 units/0.1 ml (100 [...] Optional follow pain # units L R Pattern Setter 10 units divided in 2 sites XXXXXXX [...] No David Sullivan MD documented in this encounterGrant Hospital04-30-2025 Radiology Diagnostic study [facility] [place] [address] CT Scan Report Signed Patient: Brittanie Garcia MR# : [id number] : 1985 Acct:[id number] Age/Sex: 39 / F ADM Date: 5 Loc: ER Room: Type: [facility] ER Attending Dr: Copies to: DO Peg [...] Jr., D.OLatisha 09/17/2024 8:21 AM Dictation Location: [facility]22 Transcribed By: [facility] 09/17/24820 Dictated By: Prince Heath Jr, DO 09/17/24817 Signed By: 09/17/24820 [facility]04-30-2025 Hospital Discharge instructions Additional Instructions Your CAT scan showed that you have kidney stones, but they are not stuck anywhere and so they are not causing your pain today. Take Motrin Tylenol as needed for pain. Take Keflex as prescribed for UTI which may be causing your pain. Follow-up with PCP for recheck next 5 to 7 days.[facility] Work Phone: 1(129) 990-325603-12-2025 NoteHNO ID: [id number] Author: DAVID SULLIVAN MD Service: ? Author [...] brought in by patient? No Lot #: [id number] Exp: 09/2026 Dilution: 5 units/0.1 ml (100 [...] Optional follow pain # units L R Pattern Setter 10 units divided in 2 sites XXXXXXX [...] Change in Treatment Plan? No David Sullivan [facility]03-12-2025 History of Present illness Narrative* David Sullivan [...] brought in by patient? No Lot #: [id number] Exp: 09/2026 Dilution: 5 units/0.1 ml (100 [...] Optional follow pain # units L R Pattern Setter 10 units divided in 2 sites XXXXXXX [...] No David Sullivan MD documented in this encounterGrant Hospital02-03-2025 History of Present illness Narrative* Dano Pyle, - 06/23/2024 1:15 PM EST Images from [...] I'll see her PRN documented in this encounterLee's Summit HospitalMogzyfzglx60-01-9332 History of Present illness Narrative* David Sullivan [...] brought in by patient? No Lot #: [id number] Exp: 03/2026 Dilution: 5 units/0.1 ml (100 [...] Optional follow pain # units L R Pattern Setter 10 units divided in 2 sites XXXXXXX [...] Plan? Ayleen Sullivan MD documented in this encounterGrant Hospital06-13-2024 Telephone encounter Note * Telephone Encounter [...] booked a few weeks before that date. [facility]06-13-2024 Miscellaneous Notes* Telephone Encounter - David [...] January 29 and after. documented in this encounterGrant Hospital06-12-2024 History of Present illness Narrative* David [...] BOTOX brought in by patient? No Lot #:[id number] Exp: 10/2025 Dilution: 5 units/0.1 ml (100 [...] Optional follow pain # units L R Pattern Setter 10 units divided in 2 sites XXXXXXX [...] No David Sullivan MD documented in this encounterGrant Hospital06-12-2024 Telephone encounter Note * Telephone Encounter - Isabel Luther MA - 10/31/2023 1:52 PM EDT Placed at desk for review. [facility]06-12-2024 Miscellaneous Notes* Telephone Encounter - Isabel Luther MA - 10/31/2023 1:52 PM EDT Placed at desk for review. * Telephone Encounter - Ting Velazquez - 10/31/2023 11:02 AM EDT [facility] to [facility] out. Forms placed in providers mailbox. documented in this encounterGrant Hospital06-12-2024 Telephone encounter Note * Telephone Encounter - Ting Velazquez - 10/31/2023 11:03 AM EDT Patient needs a botox appointment slot opened anytime January 29 and after. [facility]06-12-2024 Telephone encounter Note* Telephone Encounter - Ting Velazquez - 10/31/2023 11:02 AM EDT [facility] Sullivan to fill out. Forms placed in providers mailbox. [facility]05-31-2024 Telephone encounter Note* Telephone Encounter - Pallavi Duron RN - 10/19/2023 10:18 AM EDT Per Epic referral, Botox is approved. 10/16/23 to 10/14/24 200 units every 12 weeks Called patient, and she is agreeable to using the SunOctober 30 slot to get her Botox in [place]. Per Dr. Sullivan, she does not need to then also keep her November 05 appt. [facility]05-31-2024 Miscellaneous Notes* Telephone Encounter - Pallavi Duron RN - 10/19/2023 10:18 AM EDT Per Epic referral, Botox is approved. 10/16/23 to 10/14/24 200 units every 12 weeks Called patient, and she is agreeable to using the SunOctober 30 slot to get her Botox in [place]. Per Dr. Sullivan, she does not need to then also keep her November 05 appt. * Telephone Encounter - Isabel Luther MA - 10/11/2023 12:02 PM EDT Prior Authorization PENDING Medication/ Treatment: BOTOX Submitted Via Epic Referral Attempted to submit via phone to expedite request, but plan does not allow this. documented in this encounterGrant Hospital05-30-2024 Miscellaneous Notes* Telephone Encounter - Evonne Dillard RN - 10/18/2023 8:43 AM EDT Images from the original note were not included. Robert Menchaca APRN.COVERING MACHINE OPERATOR You6 minutes ago (8:35 AM) I can for this time, but Dr. Hernandez moving forward as he is managing her neck tightness. PRATIBHA Mccullough, RN, BA documented in this encounterGrant Hospital05-30-2024 Telephone encounter Note * Telephone Encounter - Evonne Dillard RN - 10/18/2023 8:43 AM EDT Images from the original note were not included. Robert Menchaca APRN.COVERING MACHINE OPERATOR You6 minutes ago (8:35 AM) I can for this time, but Dr. Hernandez moving forward as he is managing her neck tightness. PRATIBHA Mccullough, RN, BA [facility] Work Phone: 1(310) 302-463905-23-2024 Telephone encounter Note* Telephone Encounter - Isabel Luther MA - 10/11/2023 12:02 PM EDT Prior Authorization PENDING Medication/ Treatment: BOTOX Submitted Via Epic Referral Attempted to submit via phone to expedite request, but plan does not allow this. [facility]05-15-2024 Telephone encounter Note* Telephone Encounter - Evonne Dillard RN - 10/03/2023 3:09 PM EDT Images from the original note were not included. Robert Menchaca APRN.ZULMA You6 minutes ago (3:03 PM) As she is now working with movement disorder for this concern, I would defer this to their team. PRATIBHA Mccullough, RN, BA [facility] Work Phone: 1(337) 670-778305-15-2024 Miscellaneous Notes* Telephone Encounter - Evonne Dillard RN - 10/03/2023 3:09 PM EDT Images from the original note were not included. Robert Menchaca APRN.ZULMA You6 minutes ago (3:03 PM) As she is now working with movement disorder for this concern, I would defer this to their team. PRATIBHA Mccullough, RN, BA documented in this encounterGrant Hospital05-03-2024 Instructions* Patient Instructions* David Sullivan MD [...] we can increase further documented in this encounterGrant Hospital05-03-2024 Telephone encounter Note * Telephone Encounter - Isabel Luther MA - 09/21/2023 8:44 AM EDT Requested image transfer from [facility] for most recent head/ neck imaging. [facility]05-03-2024 History of Present illness Narrative* David Sullivan MD - 09/21/2023 8:44 AM EDT NEW PATIENT EVALUATION Subjective HPI Brittanie Garcia is a 38 year old right-handed female who presents for evaluation of previously diagnosed cervical dystonia. Robert Menchaca CNP is the referring physician. Dr. Filiberto Obrien MD is the PCP. Symptoms started as [...] normal Reviewed referral records from Robert Menchaca [facility] Assessment/Plan Assessment & Plan: Brittanie Garcia is a 38 year old right-handed female with a history of chronic migraine, neck pain previously diagnosed as cervical dystonia, and RLS who presents [facility]. Her examination demonstrates normal [...] next month for Botox. David Sullivan MD [facility] documented in this encounterGrant Hospital05-03-2024 Miscellaneous Notes* Telephone Encounter - Isabel Luther MA - 09/21/2023 8:44 AM EDT Requested image transfer from [facility] for most recent head/ neck imaging. documented in this encounterGrant Hospital04-25-2024 Telephone encounter Note * Telephone Encounter - Evonne Dillard RN - 09/13/2023 2:57 PM EDT Images from the original note were not included. Robert Menchaca APRN.ZULMA You 58 minutes ago (1:58 PM) Keep the appointment until she sees Dr. Sullivan on September 20. PRATIBHA Mccullough, RN, BA [facility] Work Phone: 1(439) 415-323904-25-2024 Miscellaneous Notes* Telephone Encounter - Evonne Dillard RN - 09/13/2023 2:57 PM EDT Images from the original note were not included. Robert Menchaca APRN.CNP You 58 minutes ago (1:58 PM) Keep the appointment until she sees Dr. Sullivan on September 20. PRATIBHA Mccullough, RN, BA documented in this encounterGrant Hospital04-16-2024 History of Present illness Narrative* Robert Menchaca APRN.CNP - 09/04/2023 9:30 AM EDT Brittanie Garcia is a 38 year old female. Patient presents with: Follow Up Today I had the opportunity to have a virtual visit with Brittanie Garcia I have communicated my name and active licensure. The patient's identity and physical location wereverified at the time of this visit. Either the patient or their legal sales representative advertising has been informed of the risks and [...] seeing the movement disorder clinic here at [facility] for an opinion about her cervical [...] which included preparing to see the patient, zzwl-ee-snpm patient care, completing clinical documentation, obtaining and/or reviewing separately obtained history, and counseling and educating the patient/family/caregiver. There is no problem list on file for this patient. No orders found for this visit on 09/04/23. Robert Menchaca MSN, EXCELSIOR MACHINE TENDER, SOFTWARE DEVELOPER MID LEVEL-C documented in this encounterGrant Hospital10-02-2023 Miscellaneous Notes* Telephone Encounter - Evonne Dillard RN - 02/19/2023 12:29 PM EDT Images from the original note were not included. Robert Menchaca APRN.COVERING MACHINE OPERATOR You 1 minute ago (12:27 PM) Thank you. This is a normal value. PRATIBHA Louis, RN, BA * Telephone Encounter - Evonne Dillard RN - 02/19/2023 12:19 PM EDT Images from the original note were not included. Evonne GAMBOA BSN, RN, BA * Telephone Encounter - Myrtle Gonzalez - 02/19/2023 12:08 PM EDT Scanned [facility] medical records [facility] for review documented in this encounterGrant Hospital09-22-2023 Miscellaneous Notes* Telephone Encounter - Evonne Dillard RN - 02/09/2023 10:26 AM EDT Images from the original note were not included. Robert Menchaca APRN.CNP You 2 minutes ago (10:23 AM) Reviewed. PRATIBHA Louis, RN, BA * Telephone Encounter - Myrtle Gonzalez - 02/09/2023 9:57 AM EDT Scanneed in medical records from [facility] for review documented in this encounterGrant Hospital09-01-2023 Miscellaneous Notes* Telephone Encounter - Evonne Dillard RN - 01/19/2023 8:55 AM EDT Images from the original note were not included. Robert Menchaca APRN.ZULMA Bailey 21 minutes ago (8:34 AM) I sent cyclobenzaprine (Flexeril) 5 mg at bedtime as needed PRATIBHA Mccullough, RN, BA documented in this encounterGrant [facility] History of Present illness Narrative* Robert [...] Most likely receiving 65 units between procerus, caretaker grounds, frontalis, and temporalis muscles. Only receiving 90 [...] Tizanidine Methocarbamol Metaxalone Carisoprodol She does have [place] prescribed for the neck pain. She rarely utilizes this. She also reports RLS since being a child. She reports this is worsening over the last few years. She had a sleep study that was indicative of DANIELLE. Not utilizing a machine presently, but is gettinga new machine. She did see a sleep clinic locally. 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 She is here today with her son [...] 5/5biceps, 5/5 wrist extension, and 5/5 hand supervisor wound. Finger extensor 5/5. Finger flexor 5/5. Pronation [...] clonus of ankles. Coordination: Finger-to- nose-finger and vlti-lu-kwre intact bilaterally. No ataxia of arms. No [...] seeing the movement disorder clinic here at [facility] for an opinion about her cervical [...] which included preparing to see the patient, ywiv-ei-hwin patient care, completing clinical documentation, obtaining and/or reviewing separately obtained history, performing a medically appropriate examination, counseling and educating the pat ient/family/caregiver, and ordering medications, tests, or procedures. There is no problem list on file for this patient. Office Visit on 01/12/23 CBC FERRITIN BLD IRON + TIBC VITAMIN B12 BLOOD COMP METABOLIC PANEL CONSULT TO NEUROLOGY Robert Menchaca MSN, EXCELSIOR MACHINE TENDER, SOFTWARE DEVELOPER MID LEVEL-C 1. The nursing staff and medical assistants [...] of your PCP/referring physician documented in this encounterGrant Hospital03-24-[facility]23 Instructions* Patient Instructions* Nayely Limon APRN.ZULMA - 08/11/2022 10:44 AM EDT Please send MRI result to us. Placed a consult for neuromuscular. Please call [phone] for appointments. I would suggest to bring your MRI (CD) to this appointment. Placed a consult for functional medicine. Please call [phone] for appointments. Follow up as needed documented in this encounterGrant Hospital03-24-[facility]23 History of Present illness Narrative* Nayely Limon APRN.CNP - 08/11/2022 10:00 AM EDT Images from the original note were not included. Rheumatology FOLLOW UP VISIT Date of Service: 08/11/2022 Patient: Brittanie Garcia Medical Record: [id number] Primary Care Physician: Filiberto Obrien MD Last Rheumatology visit: 07/28/2022 (with Nayely Limon) I have communicated my name and active licensure. The patient's identity and physical location wereverified at the time of this visit. 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 Started Seeing pain management since April for headache and neck pain. She has [place] takes once a week. Hx of restless [...] Clinical Fibromyalgia Diagnostic Criteria questionnaire Questionnaire scores: [place] sleepiness scale: 15 (Normal < 10) MDQ (mood disorder questionnaire): 6 (Normal < 7) PHQ (patient health questionnaire): depression 10 (Normal < 5), anxiety 9 (Normal < 5) Fibromyalgia evaluation: Wide spread pain scale (WPI) 7, symptom severity (SS) 9 The patient meets the 2016 ACR ([place] [employer]) revised criteria for fibromyalgia(WPI [...] an optimal response to treatment. Nayely Limon APRN.COVERING MACHINE OPERATOR Return if symptoms worsen or [...] 2022 Time: 8:44 AM documented in this encounterGrant Hospital03-10-2023 Instructions* Patient Instructions* Nayely Limon APRN.CNP - 07/28/2022 1:58 PM EST Obtain lab and XR today Follow up in 10-14 days documented in this encounterGrant Hospital03-10-2023 History of Present illness Narrative* Nayely Limon APRN.CNP - 07/28/2022 1:00 PM EST Images from the original note were not included. Rheumatology CONSULTATION Date of Service: 07/28/2022 Patient: Brittanie Garcia Medical Record: [id number] Primary Care Physician: Filiberto Obrien MD, MD Last Rheumatology visit: 07/28/2022 (with Nayely Limon) Referring Provider: Kenna Sheehan [address] [facility] [address] [place] [id number] Brittanie Garcia is here today at request of Kenna Sheehan PA-C specifically for consultation of my opinion in regards to the chief complaint listed below. 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 Started Seeing pain management since April for headache and neck pain. She has [place] takes once a week. Hx of restless [...] Take 1 mg by mouth once daily. Xbqxsczh-Wh-Ees-Fe-FA (P-D PLUS) Tab Take 1 tablet by [...] - XR CHEST 2V FRONTAL/LAT Nayely Limon APRN.COVERING MACHINE OPERATOR Return in about 10 days (around 08/07/2022). I spent a total of 75 minutes on the date of the service which included preparing to see the patient, yxlt-xp-oddm patient care, completing clinical documentation, obtaining and/or [...] 2022 Time: 2:07 PM documented in this encounterGrant Hospital02-16-2023 NoteCONSULTATION CONSULTATION DATE: 07/06/2022 HISTORY OF [...] no difference. She was also started on [place] 5/325 daily p.r.n., which she says is helpful. We obtained a cervical x-ray back in January, which shows very minimal pathology between C2 and C3 discs. At this time, procedures are not indicated. Medications includes [place] 5/325 daily, baclofen 10 mg b.i.d., Ambien [...] time, our clinic will just maintain her [place] 5/325 daily p.r.n. She will continue for treatments with [facility]. I did recommend, however, to continue with self massage and to trial home cervical traction. We will see the patient in three months' time to maintain her medications and patient is in agreement.[facility] [id number] NoteCONSULTATION PAIN MANAGEMENT CONSULTATION CONSULTATION DATE: 04/06/2022 [...] stated that today she has seen an wedger due to having lock jaw episodes. 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 She describes her headaches [...] visit, as she agrees to this plan.[facility] [id number] NoteCONSULTATION CONSULTATION DATE: 03/02/2022 HISTORY OF PRESENT [...] Activities such as pushing, pulling, lying down, ob scrub tech hours and housework aggravate her pain. The [...] this and all questions are answered today.[facility] [id number] NoteCONSULTATION CONSULTATION DATE: 02/16/2022 HISTORY OF PRESENT [...] worsened at that time. 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 Patient is in agreement to this.The [facility] complaint Narrative - Reported* BRITTANIE GARCIA is being seen for an initial evaluation of syncope. * 37-year-old healthy female seen in cardiology consultation at the request of Dr. Obrien for recurrent syncopal episodes. She describes 7 [...] tachycar suzette. * Recommendations, obtain Marcio of ULURU monitoring, tilt table test, refer to either EP or syncope clinic, I can follow-up on a as needed basis, as there is no interventional necessity at this time [facility] [address] DO Work Phone: [place] complaint Narrative - Reported* BRITTANIE GARCIA is being seen for an initial evaluation of syncope. * 37-year-old healthy female seen in cardiology consultation at the request of Dr. Obrien for recurrent syncopal episodes. She describes 7 [...] tachycar suzette. * Recommendations, obtain Marcio of ULURU monitoring, tilt table test, refer to either EP or syncope clinic, I can follow-up on a as needed basis, as there is no interventional necessity at this time [facility] Work Phone: [place] complaint Narrative - Reported* BRITTANIE GARCIA is being seen for an initial evaluation of syncope. * 37-year-old healthy female seen in cardiology consultation at the request of Dr. Obrien for recurrent syncopal episodes. She describes 7 [...] rebound tachycar suzette. * Recommendations, obtain Marcio [facility] monitoring, tilt table test, refer to either EP or syncope clinic, I can follow-up on a as needed basis, as there is no interventional necessity at this time [facility] 250 DO Work Phone: Chief complaint Narrative - Reported* BRITTANIE GARCIA is being seen for an initial evaluation of syncope. * 37-year-old healthy female seen in cardiology consultation at the request of Dr. Obrien for recurrent syncopal episodes. She describes 7 [...] is no interventional necessity at this time [facility] Work Phone: Evaluation noteNo assessment information available [facility] Work Phone: Evaluation note* Diagnosis Neck pain, chronic Cervicalgia [facility]* Diagnosis Neck pain, chronic- Primary Cervicalgia documented [facility] this encounter [facility]* Diagnosis Neck pain, chronic- Primary Cervicalgia Fibromyalgia Mylagia and myositis, unspecified documented in this encounter [facility]* Diagnosis Cervical dystonia- Primary Spasmodic torticollis Neck tightness Unspecified musculoskeletal disorders and symptoms referable to neck RLS (restless legs syndrome) Restless legs syndrome (RLS) documented in this encounter [facility]* Diagnosis Onset Date Resolution Status Left breast mass acute [facility] Work Phone: Evaluation note* Diagnosis Cervical dystonia- Primary Spasmodic torticollis documented [facility] this encounter [facility]* Diagnosis Chronic migraine without aura, with intractable migraine, so stated, with status migrainosus- Primary Neck pain Cervicalgia RLS (restless legs syndrome) Restless legs syndrome (RLS) documented in this encounter [facility]* Diagnosis Chronic migraine without aura, with intractable migraine, so stated, with status migrainosus- Primary Neck pain Cervicalgia documented [facility] this encounter [facility]* Diagnosis Chronic migraine without aura, with intractable migraine, so stated, with status migrainosus- Primary Neck pain Cervicalgia documented [facility] this encounter [facility]* Diagnosis Fibroadenoma of breast, right- Primary [facility]* Diagnosis Chronic migraine without aura, with intractable migraine, so stated, with status migrainosus- Primary Neck pain Cervicalgia documented [facility] this encounter [facility]* Diagnosis Onset Date Resolution Status Admit Date Cervical spondylosis acuteJune 2024 3:41pmHeadache, chronic migraine without aura, intractable acuteJune 2024 3:41pmOccipital neuralgiaacuteJune 2024 3:41pmOther chronic painacuteJune 2024 3:41pm [facility] Work Phone: Evaluation note* Diagnosis Other rosacea- Primary [facility]* Diagnosis Other rosacea- Primary Inflamed skin tag documented in this encounter [facility]* Diagnosis Cervical dystonia- Primary Spasmodic torticollis RLS (restless legs syndrome) Restless legs syndrome (RLS) documented in this encounter [facility]* Diagnosis Cellulitis of left thumb- Primary documented in this encounter [facility]* Diagnosis RLS (restless legs syndrome)- Primary Restless legs syndrome (RLS) Cervical dystonia Spasmodic torticollis Cervicogenic headache Headache Intractable chronic migraine without aura and with status migrainosus documented in this encounter [facility]* Diagnosis Other rosacea- Primary Cellulitis of left thumb documented in this encounter [facility]* Diagnosis Intractable chronic migraine without aura and with status migrainosus- Primary documented in this encounter [facility]* Diagnosis Intractable chronic migraine without aura and with status migrainosus [facility] Additional Instructions DISCHARGE INSTRUCTIONS [...] directed for pain unless a prescription was provided.[facility] Work Phone: Hospital Discharge instructions Additional [...] directed for pain unless a prescription was provided.[facility] Work Phone: Hospital Discharge instructions Additional Instructions If your symptoms return/worsen or you develop any further concerns or symptoms please see your doctor or return to the emergency department immediately. It is imperative that you go over today's visit and all results with your primary care provider.[facility] Work Phone: Reason for referral (narrative)* Diagnostic Procedure Only (Routine) - ClosedSpecialtyDiagnoses / ProceduresReferred By Contact Referred To ContactXR IMAGING Diagnoses Neck pain, chronic Procedures XR CERV OTHER 4V AP/LAT/OBL RADEX SPINE CERVICAL 4 OR 5 VIEWS Nayely Limon APRN.COVERING MACHINE OPERATOR [address] [address] Xr Imaging Referral IDStatusReasonStart DateExpiration DateVisits RequestedVisits [id number] Auto-Generated Referral [facility] for referral (narrative)* Diagnostic Procedure Only (Routine) - ClosedSpecialtyDiagnoses / ProceduresReferred By ContactReferred To ContactXR IMAGING Diagnoses Neck pain, chronic Procedures XR CERV OTHER 4V AP/LAT/OBL RADEX SPINE CERVICAL 4 OR 5 VIEWS Nayely Limon APRN.CNP [address] [place] [address] Xr Imaging Referral IDStatusReasonStart DateExpiration DateVisits RequestedVisits [id number] Auto-Generated Referral [facility] for referral (narrative)No reason for referral information availableUniversity [facility] Work Phone: Reason for visit Narrative* Diagnostic Procedure Only (Routine) - ClosedSpecialtyDiagnoses / ProceduresReferred By ContactReferred To ContactXR IMAGING Diagnoses Neck pain, chronic Procedures XR CERV OTHER 4V AP/LAT/OBL RADEX SPINE CERVICAL 4 OR 5 VIEWS Nayely Limon APRN.CNP [address] [place] [address] Xr Imaging Referral IDStatusReasonStart DateExpiration DateVisits RequestedVisits [id number] Auto-Generated [facility]erral [facility] Chief Complaint and Reason for Visit [...] :44pm neck spams, back pain, cough, fever [facility] 2024 7:42am Chief Complaint Admit Date Neck Spasms June 19, 2024 1 :44pm neck spams, back pain, cough, fever [facility] 2024 7:42am chest pain/rt rib & arm pain September 17, 2024 5:00am Chief Complaint Admit Date neck spams, back pain, cough, fever [facility] 2024 7:42am chest pain/rt rib & arm pain September 17, 2024 5:00am Ref Dr Obrien neck pain October 22, 2024 3:41 pm [...] pain, chronic Procedures CONSULT TO NEUROLOGY OFFICE/OUTPATIENT [facility] 60-74 MINUTES Nayely Limon APRN.COVERING MACHINE OPERATOR [address] [place] [place] [id number] Referral IDStatusReasonStart DateExpiration DateVisits RequestedVisits [id number] PCP Requested Referral /[id number] / ProceduresReferred By ContactReferred To Contact Diagnoses Fibromyalgia Procedures CONSULT TO FUNCTIONAL MEDICINE OFFICE/OUTPATIENT [facility] 60-74 MINUTES Nayely Limon APRN.COVERING MACHINE OPERATOR [address] [place] [address] Referral IDStatusReasonStart DateExpiration DateVisits RequestedVisits [id number] PCP Requested Referral /[id number] / ProceduresReferred By ContactReferred To ContactNeurology Diagnoses Cervical dystonia Neck tightness Procedures CONSULT TO NEUROLOGY OFFICE/OUTPATIENT [facility] 60-74 MINUTES Robert Menchaca, EXCELSIOR MACHINE TENDER.COVERING MACHINE OPERATOR [phone] [place] [phone] Referral IDStatusReasonStart DateExpiration DateVisits RequestedVisits [id number] Review PCP Requested Referral /[id number] / ProceduresReferred By ContactReferred To ContactNeurology Diagnoses Cervical dystonia Procedures CONSULT TO NEUROLOGY OFFICE/OUTPATIENT [facility] 60 MINUTES Robert Menchaca, EXCELSIOR MACHINE TENDER.COVERING MACHINE OPERATOR [phone] [place] [phone] Referral IDStatusReasonStart DateExpiration DateVisits RequestedVisits [id number] PCP Requested Referral / Summary Purpose Family [...] Team Status: Active Member Role Status Jazmine Obrien MD Primary Care Provider Active Team Status: Inactive Member Role Status Jazmine Obrien MD Primary Care Provider Active Roseanne Castellanos DOAttending ProviderActiveRomero Jones , MDReferring ProviderActive Team Status: Inactive Member Role Status Jazmine Obrien MD Primary Care Provider Active Dano Pyle DOAttozzie ProviderActive Team Status: Inactive Member Role Status Dates Filiberto Obrien MD Primary Care Provider Active Sydnee Cruz ProviderActiveTeam MemberRelationshipSpecialty Start DateEnd Date Filiberto Obrien MD PCP - GeneralFamily Medicine06/05/12 Kenna Sheehan PA-C [address] [place] [address] ReferringNeurology07/19/22Team MemberRelationshipSpecialtyStart DateEnd Date Filiberto Obrien MD PCP - Generalmily Medicine06/05/12 Kenna Sheehan PA-C [address] [place] [address] ReferringNeurology07/19/22Team MemberRelationshipSpecialtyStart DateEnd Date Filiberto Obrien MD PCP - GeneralFamily Medicine06/05/12 Kenna Sheehan PA-C [address] [place] [address] ReferringNeurology07/19/22Team MemberRelationshipSpecialtyStart DateEnd Date Filiberto Obrien MD PCP - GeneralFamily Medicine06/05/12 Kenna Sheehan PA-C [address] [place] [phone] ReferringNeurology07/19/22Team MemberRelationshipSpecialtyStart DateEnd Filiberto Obrien MD PCP - GeneralFamily Medicine06/05/12 Kenna Sheehan PA-C [address] [place] [phone] ReferringNeurology07/19/22Team MemberRelationshipSpecialtyStart DateEnd Filiberto Obrien MD PCP - GeneralFamily Medicine06/05/12 Kenna Sheehan PA-C [address] [place] [phone] ReferringNeurology07/19/22Team MemberRelationshipSpecialtyStart End Filiberto Obrien MD PCP - GeneralFatxly Medicine06/05/12 Kenna Sheehan PA-C [address] [place] [address] ReferringNeurology07/19/22 Team Status: Inactive Member Role Status Dates Filiberto Obrien MD Primary Care Provider Active Robert Menchaca APRN SOFTWARE DEVELOPER MID LEVEL-BCAttending ProviderActiveTeam MemberRelationship SpecialtyStart DateEnd Filiberto Obrien MD PCP - GeneralFamily Medicine06/05/12 Kenna Sheehan PA-C [address] [place] [phone] ReferringNeurology3Team MemberRelationshipSpecialtyStart DateEnd Date Filiberto Obrien MD PCP - GeneralFamily Medicine06/05/12 Kenna Sheehan PA-C [address] [place] [phone] ReferringNeurology3Team MemberRelationshipSpecialtyStart DateEnd Date Filiberto Obrien MD PCP - GeneralFami Medicine06/05/12 Kenna Sheehan PA-C [address] [place] [phone] ReferringNeurology3Team MemberRelationshipSpecialtyStart DateEnd Filiberto Obrien MD PCP - GeneralFamily Medicine06/05/12 Kenna Sheehan PA-C [address] [place] [phone] ReferringNeurology3Team MemberRelationshipSpecialtyStart DateEnd Date Filiberto Obrien MD PCP - Generalmily Medicine06/05/12 Kenna Sheehan PA-C [address] [place] [phone] ReferringNeurology3Team MemberRelationshipSpecialtyStart DateEnd Filiberto Obrien MD PCP - GeneralFamily Medicine06/05/12 Kenna Sheehan PA-C [address] [place] [address] ReferringNeurology07/19/22Team MemberRelationshipSpecialtyStart DateEnd Date Filiberto Obrien MD PCP - GeneralFamily Medicine06/05/12 Kenna Sheehan PA-C [address] [place], [place] [phone] ReferringNeurology07/19/22 Team Status: Inactive Member Role Status Dates Filiberto Obrien MD Primary Care Provider Active Start: January 28, 2024 End: January 28, 2024Fredric Jonas DOAttending ProviderActiveStart: January 28, 2024 End: January 28, 2024Team MemberRelationshipSpecialtyStart DateEnd Filiberto Obrien MD PCP - GeneralFamily Medicine06/05/12 Kenna Sheehan PA-C [address] [place], [place] [phone] ReferringNeurology07/19/22 Team Status: Inactive Member Role Status Jazmine Obrien MD Primary Care Provider Active Start: June 10, 2024 End: June 10, 2024Fredric Jonas DOAttending ProviderActiveStart: June 10, 2024 End: June 10, 2024 Team Status: Inactive Member Role Status Jazmine Obrien MD Primary Care Provider Active Start: June 17, 2024 End: June 17, 2024FredAlis Medrano ProviderActiveStart: June 17, 2024 End: June 17, 2024 Team Status: Inactive Member Role Status Dates Filiberto Obrien MD Primary Care Provider Active Start: June 19, 2024 End: June 19rtGeorgette Henriquez ProviderActiveStart: June 19, 2024 End: June 19, 2024Team MemberRelationshipSpecialtyStart DateEnd Date Filiberto Obrien MD [address] [place] [address] PCP - GeneralFamily Medicine12/12/22Team MemberRelationshipSpecialtyStart DateEnd Date Filiberto Obrien MD PCP - GeneralFamily Medicine06/05/12 Kenna Sheehan PA-C [address] [place] [address] ReferringNeurology07/19/22 Team Status: Inactive Member Role Status Dates Filiberto Obrien MD Primary Care Provider Active Start: August 01, 2024 End: August 01Sami Soto ProviderActiveStart: August 01, 2024 End: August 01, 2024 Team Status: Inactive Member Role Status Dates Filiberto Obrien MD Primary Care Provider Active Start: September 17, 2024 End: September 17, 2024Sami Hanson ProviderActiveStart: September 17, 2024 End: September 17, 2024 Team Status: Inactive Member Role Status Dates Filiberto Obrien MD Primary Care Provider Active Start: October 22, 2024 End: October 22, 2024Levi Capellan ProviderActiveStart: October 22, 2024 End: October 22, 2024Team MemberRelationshipSpecialtyStart DateEnd Date Filiberto Obrien MD PCP - GeneralFamily Medicine06/05/12 Kenna Sheehan PA-C [address], [place] [phone] ReferringNeurology07/19/22Team MemberRelationshipSpecialtyStart DateEnd Date Filiberto Obrien MD PCP - GeneralFamily Medicine12/12/22Team MemberRelationshipSpecialtyStart DateEnd Date Filiberto Obrien MD PCP - GeneralFamily Medicine12/12/22Team MemberRelationshipSpecialtyStart DateEnd Date Filiberto Obrien MD [address] [facility] [place] [address] PCP - GeneralFamily Medicine12/12/22Team MemberRelationshipSpecialtyStart DateEnd Date Filiberto Obrien MD [address] [facility] [place] [address] PCP - GeneralFamily Medicine12/12/22Team MemberRelationshipSpecialtyStart DateEnd Date Filiberto Obrien MD [address] [facility] [place] [address] PCP - GeneralFamily Medicine12/12/22Team MemberRelationshipSpecialtyStart DateEnd Date Filiberto Obrien MD [address] [facility] [place] [address] PCP - GeneralFamily Medicine12/12/22Team MemberRelationshipSpecialtyStart DateEnd Date Filiberto Obrien MD [address] [facility] [place] [address] PCP - GeneralFamily Medicine12/12/22Team MemberRelationshipSpecialtyStart DateEnd Date Filiberto Obrien MD [address] [facility] [place] [address] PCP - GeneralFamily Medicine12/12/22Team MemberRelationshipSpecialtyStart DateEnd Date Filiberto Obrien MD [address] [facility] [place] [address] PCP - GeneralFamily Medicine12/12/22Team MemberRelationshipSpecialtyStart DateEnd Date Filiberto Obrien MD [address] [facility] [place] [address] PCP - GeneralFamily Medicine12/12/22Team MemberRelationshipSpecialtyStart DateEnd Date Filiberto Obrien MD [address] [facility] [place] [address] PCP - GeneralFamily Medicine12/12/22Team MemberRelationshipSpecialtyStart DateEnd Date Filiberto Obrien MD [address] [facility] [place] [address] PCP - GeneralFamily Medicine12/12/22 Team Status: Active Member Role/Relationship Status Jazmine Obrien MD Primary Care Provider Active Team Status: Inactive Member Role/Relationship Status Dates Liss Cheung Attending Provider Active Start: N ov2024 End: March 30, 2025 Goals (unrecognized section and content) Goals may [...] or prosecute any alcohol or drug abuse patient.[facility] HospitalIn the event this information is protected by the Federal Confidentiality of Alcohol and Drug Abuse Patient Records regulations: The Federal rules restrict any use of the information to criminally investigate or prosecute any alcohol or drug abuse patient.[facility] HospitalIn the event this information is protected by the Federal Confidentiality of Alcohol and Drug Abuse Patient Records regulations: The Federal rules restrict any use of the information to criminally investigate or prosecute any alcohol or drug abuse patient.[facility] HospitalIn the event this information is protected by the Federal Confidentiality of Alcohol and Drug Abuse Patient Records regulations: The Federal rules restrict any use of the information to criminally investigate or prosecute any alcohol or drug abuse patient.[facility] HospitalIn the event this information is protected by the Federal Confidentiality of Alcohol and Drug Abuse Patient Records regulations: The Federal rules restrict any use of the information to criminally investigate or prosecute any alcohol or drug abuse patient.[facility] HospitalIn the event this information is protected by the Federal Confidentiality of Alcohol and Drug Abuse Patient Records regulations: The Federal rules restrict any use of the information to criminally investigate or prosecute any alcohol or drug abuse patient.[facility] HospitalIn the event this information is protected by the Federal Confidentiality of Alcohol and Drug Abuse Patient Records regulations: The Federal rules restrict any use of the information to criminally investigate or prosecute any alcohol or drug abuse patient.[facility] HospitalIn the event this information is protected by the Federal Confidentiality of Alcohol and Drug Abuse Patient Records regulations: The Federal rules restrict any use of the information to criminally investigate or prosecute any alcohol or drug abuse patient.[facility] HospitalIn the event this information is protected by the Federal Confidentiality of Alcohol and Drug Abuse Patient Records regulations: The Federal rules restrict any use of the information to criminally investigate or prosecute any alcohol or drug abuse patient.[facility] HospitalIn the event this information is protected by the Federal Confidentiality of Alcohol and Drug Abuse Patient Records regulations: The Federal rules restrict any use of the information to criminally investigate or prosecute any alcohol or drug abuse patient.[facility] HospitalIn the event this information is protected by the Federal Confidentiality of Alcohol and Drug Abuse Patient Records regulations: The Federal rules restrict any use of the information to criminally investigate or prosecute any alcohol or drug abuse patient.[facility] HospitalIn the event this information is protected by the Federal Confidentiality of Alcohol and Drug Abuse Patient Records regulations: The Federal rules restrict any use of the information to criminally investigate or prosecute any alcohol or drug abuse patient.[facility] HospitalIn the event this information is protected by the Federal Confidentiality of Alcohol and Drug Abuse Patient Records regulations: The Federal rules restrict any use of the information to criminally investigate or prosecute any alcohol or drug abuse patient.[facility] HospitalIn the event this information is protected by the Federal Confidentiality of Alcohol and Drug Abuse Patient Records regulations: The Federal rules restrict any use of the information to criminally investigate or prosecute any alcohol or drug abuse patient.[facility] HospitalIn the event this information is protected by the Federal Confidentiality of Alcohol and Drug Abuse Patient Records regulations: The Federal rules restrict any use of the information to criminally investigate or prosecute any alcohol or drug abuse patient.[facility] HospitalIn the event this information is protected by the Federal Confidentiality of Alcohol and Drug Abuse Patient Records regulations: The Federal rules restrict any use of the information to criminally investigate or prosecute any alcohol or drug abuse patient.[facility] HospitalIn the event this information is protected by the Federal Confidentiality of Alcohol and Drug Abuse Patient Records regulations: The Federal rules restrict any use of the information to criminally investigate or prosecute any alcohol or drug abuse patient.[facility] HospitalIn the event this information is protected by the Federal Confidentiality of Alcohol and Drug Abuse Patient Records regulations: The Federal rules restrict any use of the information to criminally investigate or prosecute any alcohol or drug abuse patient.[facility] HospitalIn the event this information is protected by the Federal Confidentiality of Alcohol and Drug Abuse Patient Records regulations: The Federal rules restrict any use of the information to criminally investigate or prosecute any alcohol or drug abuse patient.[facility] HospitalIn the event this information is protected by the Federal Confidentiality of Alcohol and Drug Abuse Patient Records regulations: The Federal rules restrict any use of the information to criminally investigate or prosecute any alcohol or drug abuse patient.[facility] HospitalIn the event this information is protected by the Federal Confidentiality of Alcohol and Drug Abuse Patient Records regulations: The Federal rules restrict any use of the information to criminally investigate or prosecute any alcohol or drug abuse patient.[facility] HospitalIn the event this information is protected by the Federal Confidentiality of Alcohol and Drug Abuse Patient Records regulations: The Federal rules restrict any use of the information to criminally investigate or prosecute any alcohol or drug abuse patient.[facility] HospitalIn the event this information is protected by the Federal Confidentiality of Alcohol and Drug Abuse Patient Records regulations: The Federal rules restrict any use of the information to criminally investigate or prosecute any alcohol or drug abuse patient.[facility] HospitalIn the event this information is protected by the Federal Confidentiality of Alcohol and Drug Abuse Patient Records regulations: The Federal rules restrict any use of the information to criminally investigate or prosecute any alcohol or drug abuse patient.[facility] HospitalIn the event this information is protected by the Federal Confidentiality of Alcohol and Drug Abuse Patient Records regulations: The Federal rules restrict any use of the information to criminally investigate or prosecute any alcohol or drug abuse patient.[facility] Reason for Visit (unrecogniz ed section and content) ReasonCommentsBotox InjectionSpecialtyDiagnoses / ProceduresReferred By Contact Referred To ContactNeurology / ADULT NEUROLOGY Diagnoses Chronic migraine without aura, intractable, with status migrainosus F/u hold for botox Procedures BOTULINUM TOXIN A PER 1 UNIT EST NI PATIENT David Sullivan MD Phone: tel: fax: David Sullivan MD [address] [place] [address] Phone: tel: fax: Referral IDStatusReasonStart DateExpiration DateVisits RequestedVisits [id number]/28/20255/[id number] PainReason CommentsNeck PainFollow upReasonCommentsNew PatientReasonCommentsResults [facility] CenterReasonCommentsResMount St. Mary HospitalReasonCommentsFohenderson hospital – [facility] UpReasonOnset DateCommentsRefill Jiahxbd0309/15/2023 ReasonCommentsRequest Outside Medical RecordsReasonCommentsCervical Dystonia SpecialtyDiagnoses / ProceduresReferred By ContactReferred To ContactNeurology Diagnoses Cervical dystonia Procedures CONSULT TO NEUROLOGY OFFICE/OUTPATIENT [facility] 60 MINUTES Robert Menchaca APRN.COVERING MACHINE OPERATOR [address] [place] [address] Referral IDStatusReasonStart DateExpiration DateVisits RequestedVisits [id number] PCP Requested Referral /[id number] DateCommentsRefill Favjxzz6710/18/2023eason CommentsInsurance AuthorizationBotoxSpecialtyDiagnoses / ProceduresReferred By ContactReferred To ContactADULT NEUROLOGY Diagnoses Chronic migraine without aura, intractable, with status migrainosus Procedures BOTULINUM TOXIN A PER 1 UNIT CHEMODERVATE FACIAL/TRIGEM/CERV MUSC MIGRAINE David Sullivan MD [address] [place] [address] Neur Chris [address] [place] [address] Referral IDStatusSuzanneasonSteast or[place] DateExpiration DateVisits RequestedVisits [id number]/23/20245/[id number]c SktlnaFdlxemfc3ae po Exc. bilateral breast massesSpecialtyDiagnoses / Procedures Referred By ContactReferred To ContactGeneral Surgery Diagnoses Hospital followup status post surgery Procedures ID UNLISTED EVALUATION AND MANAGEMENT SERVICE [facility] [address] [place] [address] Dano Pyle, DO [address] [address] Phone: tel: fax: Referral IDStatusReasonStart DateExpiration DateVisits RequestedVisits [id number]/28/20257/[id number] / Procedures Referred By ContactReferred To ContactADULT NEUROLOGY Diagnoses Chronic migraine without aura, intractable, with status migrainosus Procedures BOTULINUM TOXIN A PER 1 UNIT CHEMODERVATE FACIAL/TRIGEM/CERV MUSC MIGRAINE David Sullivan MD [address] [place] [address] [place] [address] Phone: tel: fax: Neurology [address] [place] [address] [place] [address] Phone: tel: fax: Referral IDStatusReasonStart DateExpiration DateVisits RequestedVisits [id number] Financial Clearance Required - [employer] Payor /[id number]-vmRytkphOrthheebXyzf changesReason CommentsMigraineRestless LegsReasonCommentsMed Change Request INFORMATION SOURCE (unrecogn ized section and content) DATE CREATED AUTHOR 09/07/2022 [facility] DATE CREATED AUTHOR AUTHOR'S ORGANIZ ATION 11/15/2022 [employer] DATE CREATED AUTHOR AUTHOR'S ORGANIZ ATION 01/01/2023 [facility] DATE CREATED AUTHOR AUTHOR'S ORGANIZ ATION 02/04/2023 [facility] DATE CREATED AUTHOR AUTHOR'S ORGANIZ ATION 02/22/2024 [facility] DATE CREATED AUTHOR AUTHOR'S ORGANIZ ATION 01/30/2025 [facility] DATE CREATED AUTHOR AUTHOR'S ORGANIZ ATION 02/25/2025 [facility] DATE CREATED AUTHOR AUTHOR'S ORGANIZ ATION 04/02/2025 [facility] FOR RECORDS PERTAINING TO PATIENTS [...] BE BASED ON THE PRIMARY CLINICAL RECORDS. [employer]. provides no warranty or guarantee of the accuracy or completeness of information in this document.
[2025-04-17 13:08] LABS: Age Gdln ACOG Testing Note (.); IGP, Aptima HPV, rfx 16/18,45 Note (.)
== END 2025-04-14 15:21 | disposition home or self-care (01) ==
LOC: LAB 15:20
PROVIDERS: PCP Family Medicine; Visit Provider Obstetrics & Gynecology
DX: Z01.419 Encounter for gynecological examination (general) (routine) without abnormal findings (principal)
CPT/HCPCS: 88175